=== PATIENT | female | born 1965 | race Caucasian/White ===

== ENCOUNTER 2017-12-27 07:40 | Outpatient (CLI) | payer OTHER, SELFPAY | END 2017-12-27 07:41 | PROVIDERS: PCP Family Medicine; Visit Provider Family Medicine | DX: S52.91XD Unspecified fracture of right forearm, subsequent encounter for closed fracture with routine healing (principal); S82.143D Displaced bicondylar fracture of unspecified tibia, subsequent encounter for closed fracture with routine healing; X58.XXXD Exposure to other specified factors, subsequent encounter | CPT/HCPCS: 99305 ==

== ENCOUNTER 2017-12-30 11:00 | Outpatient (REF) | payer OTHER, SELFPAY ==
[2017-12-30 11:50] LABS: Bilirubin Negative (Negative); Blood Large (Negative); Clarity Cloudy; Glucose Negative (Negative); Ketones Negative (Negative); Leukocyte Esterase Moderate (Negative); Nitrite Negative (Negative); Urobilinogen 0.2 EU/dL (Up TO 0.2)
[2017-12-30 12:00] LABS: Crystals Moderate Amorphous HPF (Negative); RBC >50 (0-2)
[2017-12-30 12:01] LABS: C & S Indicated? Yes
== END 2017-12-30 11:01 ==
LOC: LBN 11:00
PROVIDERS: PCP Family Medicine; Visit Provider Nurse Practitioner Family
DX: Z46.6 Encounter for fitting and adjustment of urinary device (principal)
CPT/HCPCS: 81003; 81015; 87086

== ENCOUNTER 2018-05-12 11:22 | Outpatient (REF) | payer OTHER, SELFPAY ==
--- NOTE | 2018-05-12 10:30 | PAPFT_PTH ---
PATIENT: Daphne Pickard LOC: [facility] U#:[id number] AGE/SX: 52/F ROOM: RE05/12/[address]: Grecia Maddox : 1965 BED: DIS: 05/12/2018 SPEC #: [id number] RECD: 05/12/18 13:07 STATUS: MAYA REAshley #: [id number] CHRISTIANO: 05/12/18 10:[address]: Grecia Maddox DEPT: [facility] Cytology RECD BY: Sherri Saavedra ENTERED: 05/12/18 13:09 SP TYPE: PAPFT OTHR DR: Keiko Reddy Tissues: 1 - CX/ENDOCX FOR PAP SMEARS Procedures: PAP THIN PREP/UVM Screening HPV DNA PROBE Comments: [id number] (CHLAMYDIA/GC)
[2018-05-13 14:45] LABS: Chlamydia Result Negative; GC Result Negative; Specimen Description SEE COMMENTS
== END 2018-05-12 11:42 ==
LOC: NCHCN 11:22
PROVIDERS: PCP Family Medicine; Visit Provider Family Medicine
DX: Z11.3 Encounter for screening for infections with a predominantly sexual mode of transmission (principal); Z12.4 Encounter for screening for malignant neoplasm of cervix; Z11.51 Encounter for screening for human papillomavirus (HPV)
CPT/HCPCS: 87491; 87591; 88142; 87624

== ENCOUNTER 2018-08-26 10:01 | Outpatient (CLI) | payer MEDICAID, SELFPAY ==
--- NOTE | 2018-08-26 09:42 | DI.RAD_ITS ---
SYMPTOM/DIAGNOSIS: F/U ORIF LEFT HIP: Two views were obtained. Note is made of plate and screw fixation of the acetabulum. There are degenerative changes of the hip joint. No other significant bony abnormality is seen. RIGHT KNEE: Four views were obtained. There is plate and screw fixation of the proximal tibia. There are mild degenerative changes of the joints of the knee. No other significant bony abnormality is seen. RIGHT WRIST: Three views were obtained and show plate and screw fixation of the distal radius. Alignment appears essentially anatomic. Moderate degenerative changes of the joints of the carpus noted.
== END 2018-08-26 10:21 ==
PROVIDERS: PCP Family Medicine; Visit Provider Student in an Organized Health Care Education/Training Program
DX: S52.121D Displaced fracture of head of right radius, subsequent encounter for closed fracture with routine healing (principal); S82.143D Displaced bicondylar fracture of unspecified tibia, subsequent encounter for closed fracture with routine healing; S32.442D Displaced fracture of posterior column [ilioischial] of left acetabulum, subsequent encounter for fracture with routine healing
CPT/HCPCS: 73562; 73110; 73502

== ENCOUNTER 2018-09-09 00:39 | Outpatient (CLI) | payer MEDICAID, SELFPAY ==
--- NOTE | 2018-09-09 09:02 | DI.CT_ITS ---
SYMPTOM/DIAGNOSIS: EVALUATE SCREW LENGTH, PAIN, SWELLING, S/P ORIF, M25.539, LT HIP PAIN, S/P ACETAB ORIF, S32.422A, H/O CLOSED POST WALL FX LT ACETABULUM LEFT HIP CT: CT examination of the hip was performed utilizing multi slice acquisition and multi planar reconstruction. There is plate and screw fixation of the acetabulum as noted on previous plain films. The hardware appears securely placed with no evidence of loosening. The anatomy of the acetabulum is nearly normal with only minimal irregularities present. Mild hypertrophic spurring of the acetabulum and femoral head noted consistent with chronic DJD. No other significant findings. RIGHT WRIST CT: CT examination of the wrist was performed utilizing multi slice acquisition and multi planar reconstruction. Plate and screw fixation noted in the distal radius as seen on previous plain film. There are slight irregularities of the distal radial articular surface. Carpal alignment appears within normal limits and the radiocarpal joints appear essentially intact. No evidence of hardware loosening by CT criteria.
== END 2018-09-09 00:59 ==
PROVIDERS: PCP Family Medicine; Visit Provider Student in an Organized Health Care Education/Training Program
DX: M25.531 Pain in right wrist (principal); S52.121D Displaced fracture of head of right radius, subsequent encounter for closed fracture with routine healing; S32.422D Displaced fracture of posterior wall of left acetabulum, subsequent encounter for fracture with routine healing; M25.552 Pain in left hip
CPT/HCPCS: 73200; 73700

== ENCOUNTER 2019-02-15 08:41 | Day surgery (SDC) | payer MEDICAID, SELFPAY ==
[2019-02-15 09:02] VITALS: BP 129/76; PULSE 73; RESP 16; TEMP 36.1; O2SAT 98
[2019-02-15] MEDS: Lactated Ringers 1,000 ML 80 ML IV (09:34)
--- NOTE | 2019-02-15 10:09 | PDOC.DSDIS_ITS ---
Discharge Plan Disposition Patient Disposition: HOME Condition: Good Discharge Details Reason For Visit: Painful orthopedic hardware - right distal radius Attending Provider: Anuel Chen Primary Care Provider: Grecia Maddox Home Meds and New Rx's Prescriptions: New hydrocodone-acetaminophen 5-325 mg tablet 1 tab PO Q6H PRN (Reason: severe pain) Qty: 6 RF: 0 acetaminophen 500 mg tablet 500 mg PO Q6H PRN (Reason: pain) Qty: 60 RF: 3 ibuprofen 600 mg tablet 600 mg PO TID PRN (Reason: pain) Qty: 60 RF: 3 Continued venlafaxine [Effexor XR] 75 mg Capsule,Extended Release 24hr 75 mg PO DAILY RF: 0 Discharge Instructions Additional Instructions: Hardware Removal Discharge Instructions Activity: You should keep the hand/wrist elevated as much as possible for the first few days. You may use the other fingers as tolerated but avoid trying to do too much too soon. You may perform light activities with the splint in place. Dressing/Cast: Your splint should stay in place at all times. Do NOT get it we t. You may loosen the LINDA wrap if you feel it is too tight and then rewrap more loosely. Medications: - You should take Tylenol and Ibuprofen for baseline pain control. - You have been prescribed a stronger pain medication, Hydrocodone, for breakthrough pain. - You may apply ice over the wrist, just double bag so it doesn't get wet. Follow-up: 10-14 days Referrals: Anuel Chen MD [ [facility] STAFF PHYSICIAN] - Equipment/Supplies: Splint Activity:: Elevate Remove Dressings/Wound Care:: Do Not Remove Shower/Bathe:: Cover Diet:: As Tolerated Discharge Orders Discharge Orders: Discharge Order (Routine); Ordered 02/15/19 Ordered By: Padmaja Lawrence DS: Diagnosis Discharge Diagnosis (1) Painful orthopaedic hardware: Status: Acute
--- NOTE | 2019-02-15 10:31 | W.PREOPHP ---
Date of service: 02/15/19 Time of Service: 10:31 Assessment and Plan Assessment and plan (1) Painful orthopaedic hardware: Status: Acute Assessment and plan: Patient is a 53-year-old who is status with right distal radius fracture. She was fixed with plates and screws. She had some pain about the wrist and one screw which appears to be prominent. Given her persistent pain about the wrist with the retained hardware and a prominent screw, I offered screw plate removal. I did discuss the risk of this procedure to include bleeding, infection, pain, stiffness, damage to nerves and vessels, hardware failure, refracture. Despite these risks, she elects to proceed. History of Present Illness History of Present Illness Chief Complaint: Painful right wrist hardware Narrative: Daphne is a 53-year-old who was involved with trauma but a year ago. She suffered a right distal radius fracture among others. She was treated with operative reduction internal fixation. She is continued to have some pain about the hand especially the radial side. CT scan showed one screw which was possibly long into the radial styloid. Given the pain that she was having and the prominence of one screw, I offered hardware removal. She denies numbness or tingling at the site. She has had no issues with the wound. No fevers and no chills. Review of Systems Review of Systems ROS Unobtainable: All systems reviewed & are unremarkable except as noted in HPI and below PFSH Medical History Endometriosis (Chronic) Hx of fracture (Acute) R acetabulum w/implant Hx of fracture of lower leg (Acute) R Tibia and Fibia w/implant Hx of fracture of wrist (Acute) R wrist w/implant Surgical History History of carpal tunnel release (Acute) Social History Smoking/Tobacco Use Status: Former Tobacco Use Alcohol Intake: current Alcohol Intake frequency: a few times a month Alcohol type: wine Drug use: Never Substance use type: does not use Do you feel safe at home: Yes Do you feel safe in your relationship?: Yes Meds Home Medications and Allergies Home Medications Medication Instructions Recorded Confirmed Type acetaminophen 500 mg PO Q6H PRN #60 tab 02/15/19 Rx hydrocodone-acetaminophen 1 tab PO Q6H PRN #6 tab 02/15/19 Rx ibuprofen 600 mg PO TID PRN #60 tab 02/15/19 Rx venlafaxine [Effexor XR] 75 mg PO DAILY 02/15/19 02/15/19 History Allergies Allergy/AdvReac Type Severity Reaction Status Date / Time gabapentin AdvReac Intermediate nauseous Unverified 02/15/19 09:00 Exam Const General: cooperative, healthy appearing, comfortable and no acute distress Nutritional Appearance: average body habitus Orientation: alert, awake and oriented x3 Resp Effort & Inspection: normal respiratory effort Auscultation: clear to auscultation bilaterally Cardio Rate: regular rate Rhythm: regular rhythm Extrem Other: Well-healed incision about the volar aspect of the right wrist. No pain with gentle passive range of motion. There is some pain with active thumb extension and with forced passive flexion. No signs of infection. Results Last Vital Signs Temp 36.1 C L 02/15/19 09:02 Pulse 73 02/15/19 09:02 Resp 16 02/15/19 09:02 BP 129/76 02/15/19 09:02 Pulse Ox 98 02/15/19 09:02
[2019-02-15] MEDS: ceFAZolin 2 GM/50 ML BAG IVPB (10:50)
--- NOTE | 2019-02-15 12:13 | DI.RAD_ITS ---
EXAM: XR WRIST RT LIMITED CLINICAL HISTORY: painful hardware. TECHNIQUE: 2D and realtime digital imaging was performed. COMPARISON: XR wrist RT complete from 01/04/2018 CT upper extremity RT wo from 09/09/2018 CT LOWER EXTREMITY LT WO from 09/09/2018 FINDINGS: An intraoperative image of the right wrist demonstrates a metallic plate affixed to the distal radius . The image obtained in conjunction with hardware removal.
[2019-02-15 12:30] VITALS: BP 122/80; PULSE 67; RESP 16; TEMP 36.1; O2SAT 96
--- NOTE | 2019-02-15 15:11 | W.PM.OP ---
Date of service: 02/15/19 Time of Service: 12:11 Operative Note Operative Note DATE OF PROCEDURE: 02/15/19 PRE-OP DIAGNOSIS: Painful orthopedic hardware, right wrist POST-OP DIAGNOSIS: same PROCEDURE: Removal of Hardware from Right Distal Radius SURGEON: Anuel Chen RESIDENTIAL PROGRAM MANAGER: Padmaja Lawrence ANESTHESIA: GETA and regional ESTIMATED BLOOD LOSS: 10 PATHOLOGY: none sent COMPLICATIONS: None Patient was transported to: PACU Patient's condition: stable Indications: Daphne is a 53-year-old female who I have seen for painful hardware after an ORIF of her left distal radius. CT scan showed that one screw was possibly long. Given the pain that she was having and the prominent screw, I recommended hardware removal. I reviewed the risk of the procedure to include bleeding, infection, stiffness, damage to nerves and vessels, damage to muscles and tendons, need for repeat procedures. Despite these risks, the patient elected to proceed. Findings: The volar locking plate was removed without difficulty. No signs of infection or complication. Procedure Description: Daphne was greeted in the preoperative holding area. The correct patient and site was confirmed and marked. The history and physical was updated. The consent was reviewed the patient and signed. The patient was taken to the operating room and placed in the supine position. All bony problems were well-padded. The right arm was placed onto a radiolucent hand table. A nonsterile tourniquet was placed high up on the left arm but not use. Prophylactic antibiotics in the form of cefazolin were administered. The left arm was prepped with ChloraPrep and draped in a standard fashion. A timeout was performed for safe surgery. Local anesthetic was administered with 1% lidocaine with epinephrine. A standard longitudinal incision was made using the same incision from the initial surgery. The skin was incised sharply. The flexor carpi radialis tendon and its sheath is identified. The sheath was opened. The tendon was moved ulnarly in the floor of the sheath was incised. Blunt dissection the flexor pollicis longus muscle belly and tendon were also made radially exposing the pronator quadratus and the distal radius. The printer quadratus was elevated with an ulnar-based flap. This exposed the volar distal radius and the fracture. A barnes elevator was used for full exposure of the volar locking plate. Starting distally, the locking screws were removed. The area will be unscrewed without difficulty. There is no hardware complication. The bone was of good quality. We then moved proximally to remove the 3 cortical screws within the shaft. These also were removed without difficulty. It took some manipulation but with a small osteoma is able to pry the plate off of the volar distal radius. This otherwise came out without difficulty. The wound was then thoroughly irrigated. Final x-ray was performed. The deep dermal layer was closed with a 2-0 Vicryl. The skin was closed with 4-0 Monocryl in a subcuticular fashion. The wound was dressed with Xeroform, 4 x 4's, web roll. A short arm splint was applied. At the end the case all counts are correct. Patient was transferred back to the PACU in stable condition.
== END 2019-02-15 13:10 | disposition home or self-care (01) ==
PROVIDERS: PCP Family Medicine; Visit Provider Student in an Organized Health Care Education/Training Program
PROC: (CPT 20680; principal; 2019-02-15 10:45)
DX: T84.84XA Pain due to internal orthopedic prosthetic devices, implants and grafts, initial encounter (principal); M25.531 Pain in right wrist; S52.501S Unspecified fracture of the lower end of right radius, sequela; X58.XXXS Exposure to other specified factors, sequela
CPT/HCPCS: 20680; 76000; NC; 73100; J0131; J0690; J1100; J1885; J2250; J2405; J3010

== ENCOUNTER 2019-02-18 11:01 | Emergency (ER) | payer MEDICAID, SELFPAY ==
--- NOTE | 2019-02-18 11:03 | W.ED.GENAD ---
Discharge Plan Disposition Patient Disposition: HOME Condition: Improving Discharge Details Chief Complaint: Dizzy/Sync Clinical Impression: Carpopedal spasm Primary Care Provider: Grecia Maddox ED Provider: Alex Linder Home Meds and New Rx's Prescriptions: Continued venlafaxine [Effexor XR] 75 mg Capsule,Extended Release 24hr 75 mg PO DAILY RF: 0 hydrocodone-acetaminophen 5-325 mg tablet 1 tab PO Q6H PRN (Reason: severe pain) Qty: 6 RF: 0 acetaminophen 500 mg tablet 500 mg PO Q6H PRN (Reason: pain) Qty: 60 RF: 3 ibuprofen 600 mg tablet 600 mg PO TID PRN (Reason: pain) Qty: 60 RF: 3 Discharge Instructions Additional Instructions: Home to rest today. Your potassium was slightly low at 3.2 and was supplemented. You may benefit from slight increase in dietary potassium from foods such as strawberries, bananas, tree nuts such as almonds. Small, frequent sips of fluids to maintain hydration. Return for any acute concerns. Medical Decision Making 53-year-old female who was upstairs in the hospital when her mother . She became anxious, hyperventilatory, nauseated. She developed carpal spasm. She was brought to the ER by nursing staff. She arrives complaining of carpal spasms. She is well-appearing with otherwise reassuring exam.. Improved with fluids and small aliquot of anxiolytic. She does have note of slight low potassium of 3.2 which is supplemented in the ED. Does appear to have a slight anion gap but with depressed carbon dioxide due to her hyperventilatory state. Stable and improving. Will discharge to home. ECG Data Attestation: I personally reviewed and interpreted this ECG (s) as follows: Interpretation: Normal sinus rhythm with a rate of 74, the QRS is narrow, there is no ST segment elevation present. HPI General Mode of arrival: ambulatory. Date/Time Provider Initiated Documentation: 02/18/19 11:02. Limitations to Documentation: no limitations. Information obtained by: patient. History of Present Illness 53 year old F presents to the emergency department with the chief complaint of Carpopedal spasm, anxiety, described as moderate, Quality is described as dull, and is localized to the right and upper extremity. Patient started experiencing this minute(s) and it has been constant. No relieving factors improve symptom(s), No exacerbating factors reported . Patient notes other (Anxiety and acute stress). Patient did receive the following treatments prior to arrival, none Related Data Home Medications Medication Instructions Recorded Confirmed acetaminophen 500 mg PO Q6H PRN #60 tab 02/15/19 hydrocodone-acetaminophen 1 tab PO Q6H PRN #6 tab 02/15/19 ibuprofen 600 mg PO TID PRN #60 tab 02/15/19 venlafaxine [Effexor XR] 75 mg PO DAILY 02/15/19 02/15/19 Previous Rx's Medication Instructions Recorded acetaminophen 500 mg PO Q6H PRN #60 tab 02/15/19 hydrocodone-acetaminophen 1 tab PO Q6H PRN #6 tab 02/15/19 ibuprofen 600 mg PO TID PRN #60 tab 02/15/19 Allergies Allergy/AdvReac Type Severity Reaction Status Date / Time gabapentin AdvReac Intermediate nauseous Unverified 02/15/19 09:00 Review of Systems Review of Systems Narrative: No syncope. Patient was hyperventilatory and anxious. 6 systems reviewed and otherwise negative [facility] Medical History Endometriosis (Chronic) Hx of fracture (Acute) R acetabulum w/implant Hx of fracture of lower leg (Acute) R Tibia and Fibia w/implant Hx of fracture of wrist (Acute) R wrist w/implant Surgical History History of carpal tunnel release (Acute) Social History Smoking/Tobacco Use Status: Former Tobacco Use Alcohol Intake: current Alcohol Intake frequency: a few times a month Alcohol type: wine Drug use: Never Substance use type: does not use Do you feel safe at home: Yes Do you feel safe in your relationship?: Yes Exam Narrative Exam Narrative: GEN: awake, alert, oriented 3. Pleasant, well groomed, interactive. HEAD: Normocephalic, atraumatic ENT: Mucous membranes moist, oropharynx unremarkable, External ear exam unremarkable EYES: PERRL, EOMI NECK: Full ROM, no LIA, no menigismus CHEST/RESP: Nontender, clear to auscultation bilateral, no wheeze/rhonchi/rales CARDIOVASCULAR: RRR, no murmur, rub luis e. ABDOMEN: Soft, nontender, no mass. +Bowel sounds EXT: Full ROM, no edema, no rash. Bilateral carpal spasm. Right upper extremity short arm cast. Neuro: Grossly normal neurologic exam, conversant, interactive. Psych: Speech fluent, thoughts congruent, affect anxious
[2019-02-18] MEDS: Normal Saline 1,000 ML 1000 ML IV (11:08)
[2019-02-18] MEDS: LORazepam 2 MG/ML VIAL 0.5 MG IVP (11:10)
[2019-02-18 11:24] LABS: Abs Immature Grans 0.02 k/cumm (0.0-0.09); Absolute Basophil Count 0.04 k/cumm (0.0-0.2); Absolute Eosinophil Count 0.07 k/cumm (0.0-0.7); Absolute Lymphocyte Count 4.55 k/cumm (1.2-3.4); Absolute Monocyte Count 0.73 k/cumm (0.11-0.7); Absolute Neutrophil Count 2.62 k/cumm (1.2-6.7); Basophils % 0.5; Eosinophils % 0.9; HCT 39.5 % (36.0-46.0); HGB 13.6 g/dL (12.0-15.5); Immature Grans % 0.2; Lymphocytes % 56.7; Mean Corp. HGB Concentration 34.4 g/dL (32.0-36.0); Mean Corpuscular Hemoglobin 31.3 pg (27.0-33.0); Mean Platelet Volume 8.4 fL (8.0-11.0); Monocytes % 9.1; Neutrophils % 32.6; Platelet Count 307 x1000/uL (130-400); RBC 4.34 m/cumm (4.00-5.20); RBC Distribution Width 12.1 % (11.7-14.6); White Blood Cell Count 8.03 k/cumm (4.4-10.8)
[2019-02-18 11:39] LABS: ALT 40 U/L (14-59); AST 38 U/L (15-37); Albumin 3.9 g/dL (3.4-5.0); Alkaline Phosphatase 90 U/L (46-116); BUN 12 mg/dL (7-18); Bilirubin, Total 0.5 mg/dL (0.2-1.0); CREATININE 0.91 mg/dL (0.55-1.02); Chloride 105 mmol/L (98-107); Glucose 121 mg/dL (70-100); Potassium 3.2 mmol/L (3.5-5.1); Sodium 141 mmol/L (136-145); Total Protein 7.2 g/dL (6.4-8.2)
[2019-02-18 11:40] LABS: Troponin I < 0.05 ng/mL (0.00-0.06)
[2019-02-18] MEDS: Potassium Chloride 20 MEQ TABCR PO (12:10)
== END 2019-02-18 12:08 | disposition home or self-care (01) ==
PROVIDERS: Emergency Provider Emergency Medicine; PCP Family Medicine
DX: R25.2 Cramp and spasm (principal); Z63.4 Disappearance and death of family member
CPT/HCPCS: 36415; 80053; 93005; 96361; 96374; 99284; 84484; 85025; 93010; J2060

== ENCOUNTER 2019-06-04 17:28 | Emergency (ER) | payer MEDICAID, SELFPAY ==
[2019-06-04 17:31] VITALS: BP 116/71; PULSE 84; RESP 20; TEMP 37; O2SAT 99
--- NOTE | 2019-06-04 17:43 | ED.GENADUL_ITS ---
Discharge Plan Disposition Patient Disposition: HOME Condition: Stable Discharge Details Chief Complaint: Orthopedic Clinical Impression: Fracture of left tibial plateau, Contusion of left hip, Fall at home Primary Care Provider: Grecia Maddox ED Provider: Eileen Diaz Home Meds and New Rx's Prescriptions: New oxycodone 5 mg tablet 5 mg PO Q6H PRN (Reason: pain) Qty: 10 RF: 0 Continued venlafaxine [Effexor XR] 75 mg Capsule,Extended Release 24hr 75 mg PO DAILY RF: 0 No Action naproxen [EC-Naproxen] 500 mg tablet,delayed release (DR/EC) 500 mg PO BID PRN (Reason: pain) Qty: 60 RF: 0 Discharge Instructions Instructions: Leg Fracture (ED) Additional Instructions: Rest, ice and elevate left leg as much as possible. Alternate tylenol and motrin as needed and directed for pain. Take the oxycodone for pain not relieved with Tylenol or Motrin. Call orthopedics tomorrow morning to schedule a follow-up appointment for reevaluation. Return to the emergency department if you develop any worsening or new concerning symptoms. Referrals: Anuel Chen MD [ [facility] STAFF PHYSICIAN] - Discharge Data Discharge Date/Time-TO BE ENTERED AT DEPARTURE: 06/04/19 19:45 Discharge Physician: Eileen Diaz Medical Decision Making [id number] -- 53-year-old female presents for left knee, left leg and left hip pain status post fall at home prior to arrival. Patient states she was walking when she felt and heard a crack in her left knee and then fell onto her bottom. She is mainly complaining of pain in the left hip, left knee and left upper leg. She is 18 months status post significant trauma when she fell off a horse and sustained fractures of right radius, right tibial plateau, left acetabulum which were fixated with hardware at [facility]. Hardware from the right radius was removed this past fall by Dr. Chen. She is complaining of some pain in her left hip but states the main area of pain is in her left knee and left upper leg. There are no open wounds. There is questionable ligamentous laxity with valgus stress but there is similar laxity in R knee and exam limited due to significant pain with valgus and varus stress. She has full range of motion of the left hip without pain. Neurovascular intact. No obvious deformities noted. Patient given a dose of oxycodone and referred for x-rays. 185 --imaging reviewed. Left knee x-ray notes a possible lateral tibial plateau fracture, suprapatellar effusion, and possible ligamentous injury. Recommend CT for further evaluation. Remainder of xrays negative for acute findings. 1939 --CT reviewed with Dr. Jane -likely will need surgical fixation. Recommends knee immobilizer and crutches, nonweightbearing. As patient has seen Dr. Chen in the past, she would rather follow-up with him. Plan is for patient to follow-up with Dr. Chen in the office tomorrow. Patient placed on orthopedic follow-up list. She was given a prescription for oxycodone. Usual and customary return precautions given prior to discharge. Imaging Data Radiologic Study: Radiologist's impression: XR Left Tibia and Fibula Exam date and time: 06/04/2019 6:26 PM Age: 53 years old Clinical indication: Other: S/P fall, R/O acute fracture TECHNIQUE: Imaging protocol: XR Left tibia and fibula. Views: 2 views. COMPARISON: CR XR KNEE LT 4V AP,LAT,LING,PAT 06/04/2019 6:16 PM FINDINGS: Bones/joints: No acute fracture. Joint spaces are maintained. Mild degenerative osteophytosis about the knee. Subchondral cysts in the lateral malleolus. Soft tissues: Normal. IMPRESSION: No acute findings. XR Left Knee Exam date and time: 06/04/2019 6:26 PM Age: 53 years old Clinical indication: Other: S/P fall, R/O acute fracture TECHNIQUE: Imaging protocol: XR Left knee. Views: 4 or more views. COMPARISON: CR LEFT KNEE 4+ VIEWS 12/13/2017 7:58 PM FINDINGS: Bones/joints: Suprapatellar joint effusion with fat fluid level. Abnormal contour and appearance of the lateral tibial plateau. Nonspecific mild lateral subluxation of the tibia with respect to the femur Soft tissues: Normal. IMPRESSION: 1. Abnormal contour and appearance of the lateral tibial plateau consistent with acute fracture. Consider further characterization with CT. 2. Moderate suprapatellar joint effusion with lipohemarthrosis. 3. Slight lateral subluxation of the tibia with respect to the femur may be due to patient positioning but is concerning for underlying ligamentous injury. XR Left Hip with Pelvis when Performed Exam date and time: 06/04/2019 6:26 PM Age: 53 years old Clinical indication: Other: S/P fall, R/O acute fracture TECHNIQUE: Imaging protocol: XR Left hip with pelvis when performed. Views: 2 or 3 views. COMPARISON: No relevant prior studies available. FINDINGS: Bones/joints: No acute fracture. Joint spaces are maintained. Moderate degenerative changes of the bilateral hips. Plate and screw fixation about the left acetabulum and in additional screw more medially. Soft tissues: Unremarkable. IMPRESSION: 1. No acute fracture or traumatic joint malalignment. 2. Plate and screw fixation about the left acetabulum appears intact. A single free screw more medial is likely appropriately positioned however prior imaging is not available for review at the time of this interpretation. Recommend comparison to priors when available. HPI General Date/Time Provider Initiated Documentation: 06/04/19 17:37 . History of Present Illness 53 year old F presents to the emergency department with the chief complaint of left hip, knee, leg pain, Quality is described as aching, and is localized to the lower extremity (left hip, knee, leg). Patient started experiencing this hour(s) and it has been constant. No relieving factors improve symptom(s), Movement worsens symptoms . Patient notes no other symptoms.. Patient did receive the following treatments prior to arrival, none Related Data Home Medications Medication Instructions Recorded Confirmed venlafaxine [Effexor XR] 75 mg PO DAILY 02/15/19 06/05/19 oxycodone 5 mg PO Q6H PRN #10 tab 06/04/19 06/05/19 naproxen 500 mg tablet,delayed 500 mg PO BID PRN #60 tab 06/05/19 06/05/19 release Previous Rx's Medication Instructions Recorded oxycodone 5 mg PO Q6H PRN #10 tab 06/04/19 naproxen 500 mg tablet,delayed 500 mg PO BID PRN #60 tab 06/05/19 release Allergies Allergy/AdvReac Type Severity Reaction Status Date / Time gabapentin AdvReac Intermediate nauseous Unverified 06/05/19 09:26 General Stated Complaint: Orthopedic SHANNEN: 4 Review of Systems All systems reviewed & are unremarkable except as noted in HPI and below Constitutional Constitutional: Reports as per HPI, Denies chills and Denies fever(s) Eyes Eyes: Denies blurry vision ENT Ears, Nose, Mouth, and Throat: Denies dizziness, Denies sore throat and Denies throat swelling Cardiovascular Cardiovascular: Denies chest pain and Denies dyspnea Respiratory Respiratory: Denies cough and Denies dyspnea Gastrointestinal Gastrointestinal: Denies abdominal pain, Denies diarrhea and Denies vomiting Genitourinary Genitourinary: Denies hematuria and Denies dysuria Musculoskeletal Musculoskeletal: Reports other (Left hip/knee/leg pain) Integumentary/Breasts Skin/Breast: Denies lesions and Denies rash Neurologic Neurologic: Denies dizziness and Denies focal weakness Allergic/Immunologic Allergic/Immunologic: Denies throat swelling [facility] Medical History Endometriosis (Chronic) Hx of fracture (Acute) R acetabulum w/implant Hx of fracture of lower leg (Acute) R Tibia and Fibia w/implant Hx of fracture of wrist (Acute) R wrist w/implant Surgical History History of carpal tunnel release (Acute) Painful orthopaedic hardware (Resolved) Prominent screw from volar distal radius plate S/P removal hardware 02/15/3019 Social History Smoking/Tobacco Use Status: Former Tobacco Use Alcohol Intake: current Alcohol Intake frequency: a few times a month Alcohol type: wine Drug use: Never Substance use type: does not use Current gender identity: female Do you feel safe at home: Yes Do you feel safe in your relationship?: Yes Exam Const General: cooperative, healthy appearing and no acute distress [facility] Head: normal to inspection Face and sinus: normal facial exam Eyes General: appearance normal, both eyes and all related structures EOM: EOM intact bilaterally Neck Neck: normal visual inspection and No submandibular swelling Lymphatic: no lymphadenopathy noted Chest Chest: normal inspection of the chest and no tenderness Resp Effort & Inspection: normal respiratory effort and able to speak in complete sentences Auscultation: clear to auscultation bilaterally Cardio Rate: regular rate Rhythm: regular rhythm GI Inspection: normal to inspection Palpation: soft, not firm, not rigid and nontender Auscultation: normal bowel sounds Back/Spine/Pelvis Cervical Spine: No cervical spinal tenderness Thoracic/Lumbar Spine: No thoracic spinal tenderness and No lumbar spinal tenderness Pelvis: no pain with anterior-posterior compression Skin General skin exam: no rashes or lesions noted Neuro General: alert, awake and oriented x3 Cognition: normal cognition Speech: speech normal Motor: muscle tone normal throughout Sensory Exam: no sensory deficits noted Extrem Other: LEFT lower extremity: No tenderness to palpation of hip. No pain in hip with range of motion. No lower extremity shortening or external rotation. Pain in knee with range of motion. Pain with valgus and varus stress and questionable ligamentous laxity medial collateral ligament but this is similar in right knee and full exam to left knee limited due to pain. Negative anterior posterior drawer test. Negative Jaclyn's test. No pain with palpation to ankle or foot. Left DP/PT pulses intact. No edema, ecchymosis or erythema noted to left lower extremity. RIGHT lower extremity: Well healed scar noted to R lateral knee/proximal leg. Psych Appearance: grossly normal Mental Status: mental status grossly normal Speech and Movement: speech and movement normal Affect: normal affect Course Vital Signs Vital signs: Vital Signs Temperature 98.6 F 06/04/19 17:31 Pulse 84 06/04/19 17:31 Respiratory Rate 06/04/19 17:31 Blood Pressure 116/71 06/04/19 17:31 Pulse Oximetry 99 06/04/19 17:31 Temperature 98.6 F 06/04/19 17:31 Temperature Source Skin 06/04/19 17:31 Pulse 84 06/04/19 17:31 Respiratory Rate 20 06/04/19 17:31 Respiratory Effort 06/04/19 17:36 Blood Pressure 116/71 06/04/19 17:31 Pulse Oximetry 99 06/04/19 17:31 Oxygen Delivery Method Room Air 06/04/19 17:31 Oxygen Flow Rate 0 06/04/19 17:31 Pain Level 6 06/04/19 17:31
[2019-06-04] MEDS: oxyCODONE 5 MG TAB PO (17:56)
--- NOTE | 2019-06-04 18:12 | DI.RAD_ITS ---
EXAM: XR HIP LT COMPLETE AP PELVIS INDICATION: s/p fall, r/o acute fracture. COMPARISON: XR hip LT AP lat only from 08/26/2018 TECHNIQUE: 2D digital imaging was performed. FINDINGS: No acute fracture or dislocation is present. Postsurgical changes are again seen in the left acetabu lum. The soft tissues are unremarkable. IMPRESSION: No acute fracture or dislocation.
--- NOTE | 2019-06-04 18:16 | DI.RAD_ITS ---
EXAM: XR KNEE LT 4V AP,LAT,LING,PAT AND XR TIB/FIB LT INDICATION: s/p fall, r/o acute fracture. COMPARISON: No previous for comparison. TECHNIQUE: 2D digital imaging was performed. FINDINGS: There is a lateral tibial plateau fracture which shows mild depression. Longitudinal component of th e fracture appears to extend into the proximal metaphysis. There is a hemarthrosis present. No othe r fracture or dislocation is seen. The bones appear mildly osteopenic. There are mild degenerative changes seen in the knee. There is no other fracture seen in the distal left tibia and fibula. IMPRESSION: Mildly depressed lateral tibial plateau fracture. CT scan of the knee should be considered for furth er evaluation.
--- NOTE | 2019-06-04 18:41 | DI.VRAD_ITS ---
PROCEDURE INFORMATION: Exam: XR Left Tibia and Fibula Exam date and time: 06/04/2019 6:26 PM Age: 53 years old Clinical indication: Other: S/P fall, R/O acute fracture TECHNIQUE: Imaging protocol: XR Left tibia and fibula. Views: 2 views. COMPARISON: CR XR KNEE LT 4V AP,LAT,LING,PAT 06/04/2019 6:16 PM FINDINGS: Bones/joints: No acute fracture. Joint spaces are maintained. Mild degenerative osteophytosis about the knee. Subchondral cysts in the lateral malleolus. Soft tissues: Normal. IMPRESSION: No acute findings. Dictated and Authenticated by: Dutch Hay MD. Ordering:ROGER Arellano MD
--- NOTE | 2019-06-04 18:46 | DI.VRAD_ITS ---
PROCEDURE INFORMATION: Exam: XR Left Knee Exam date and time: 06/04/2019 6:26 PM Age: 53 years old Clinical indication: Other: S/P fall, R/O acute fracture TECHNIQUE: Imaging protocol: XR Left knee. Views: 4 or more views. COMPARISON: CR LEFT KNEE 4+ VIEWS 12/13/2017 7:58 PM FINDINGS: Bones/joints: Suprapatellar joint effusion with fat fluid level. Abnormal contour and appearance of the lateral tibial plateau. Nonspecific mild lateral subluxation of the tibia with respect to the femur Soft tissues: Normal. IMPRESSION: 1. Abnormal contour and appearance of the lateral tibial plateau consistent with acute fracture. Consider further characterization with CT. 2. Moderate suprapatellar joint effusion with lipohemarthrosis. 3. Slight lateral subluxation of the tibia with respect to the femur may be due to patient positioning but is concerning for underlying ligamentous injury. Dictated and Authenticated by: Dutch Hay MD. Ordering:ROGER Arellano MD
--- NOTE | 2019-06-04 18:50 | DI.VRAD_ITS ---
PROCEDURE INFORMATION: Exam: XR Left Hip with Pelvis when Performed Exam date and time: 06/04/2019 6:26 PM Age: 53 years old Clinical indication: Other: S/P fall, R/O acute fracture TECHNIQUE: Imaging protocol: XR Left hip with pelvis when performed. Views: 2 or 3 views. COMPARISON: No relevant prior studies available. FINDINGS: Bones/joints: No acute fracture. Joint spaces are maintained. Moderate degenerative changes of the bilateral hips. Plate and screw fixation about the left acetabulum and in additional screw more medially. Soft tissues: Unremarkable. IMPRESSION: 1. No acute fracture or traumatic joint malalignment. 2. Plate and screw fixation about the left acetabulum appears intact. A single free screw more medial is likely appropriately positioned however prior imaging is not available for review at the time of this interpretation. Recommend comparison to priors when available. Dictated and Authenticated by: Dutch Hay MD. Ordering:ROGER Arellano MD
[2019-06-04 19:11] VITALS: BP 128/66; PULSE 69; RESP 18; O2SAT 100
--- NOTE | 2019-06-04 19:35 | DI.CT_ITS ---
EXAM: CT LOWER EXTREMITY LT WO CLINICAL HISTORY: r/o lateral tibial plateau fracture TECHNIQUE: Without contrast COMPARISON: XR KNEE LT 4V AP,LAT,LING,PAT from 06/04/2019 FINDINGS: There is a comminuted fracture involving the lateral tibial plateau. There is 1 centimeter of depres aneta of the fracture noted. The fracture is predominantly anteriorly located and extends into the tib ial spines. The fracture extends distally into the proximal tibial diaphysis. No other fracture is i dentified. There is a moderate lipohemarthrosis present. There may be mild lateral subluxation of t he tibia with respect to the femur. There is soft tissue edema around the knee. IMPRESSION: Comminuted fracture involving the lateral tibial plateau. The fracture involves the tibial spines an d extends inferiorly and anteriorly into the proximal tibial diaphysis. There is a depression of lora roximately 1 centimeter of the lateral tibial plateau noted. Moderate lipohemarthrosis. Question of mild lateral subluxation of the tibia with respect to the femur.
--- NOTE | 2019-06-04 19:45 | DI.VRAD_ITS ---
PROCEDURE INFORMATION: Exam: CT Left Lower Extremity Without Contrast, Knee Exam date and time: 06/04/2019 7:25 PM Age: 53 years old Clinical indication: Injury or trauma; Initial encounter; Blunt trauma; Left; Injury date: 06/04/19; Injury details: Fall, knee pain, question on x-ray of tibial plateau FX TECHNIQUE: Imaging protocol: CT of the Left lower extremity without contrast was performed. Exam focused on the knee. Radiation optimization: All CT scans at this facility use at least one of these dose optimization techniques: automated exposure control; mA and/or kV adjustment per patient size (includes targeted exams where dose is matched to clinical indication); or iterative reconstruction. COMPARISON: CT KNEE WO CONTRAST RI 12/14/2017 8:56 AM FINDINGS: Bones/joints: Comminuted fracture of the lateral tibial plateau that extends through the tibial spine and has an additional prominent nondisplaced fracture line extending into the proximal tibial diaphysis. There is approximate 1 cm depression and abnormal angulation of the lateral tibial plateau with numerous comminuted fragments. Moderate joint effusion with lipohemarthrosis. Persistent mild lateral subluxation of the tibia with respect to the femur. Soft tissues: Mild soft tissue edema about the knee IMPRESSION: 1. Comminuted fracture of the lateral tibial plateau extending through the tibial spine and additional nondisplaced fracture line extending ventrally into the proximal tibial diaphysis. The lateral tibial plateau is depressed approximately 1 cm with abnormal angulation and numerous comminuted fragments along the articular surface. 2. Moderate joint effusion with lipohemarthrosis. 3. Persistent mild lateral subluxation of the tibia with respect to the femur. Dictated and Authenticated by: Dutch Hay MD. Ordering:ROGER Arellano MD
== END 2019-06-04 19:45 | disposition home or self-care (01) ==
PROVIDERS: Emergency Provider Physician Assistant; PCP Family Medicine
DX: S82.142A Displaced bicondylar fracture of left tibia, initial encounter for closed fracture (principal); M25.462 Effusion, left knee; M25.552 Pain in left hip; X50.9XXA Other and unspecified overexertion or strenuous movements or postures, initial encounter; W00.0XXA Fall on same level due to ice and snow, initial encounter
CPT/HCPCS: 29505; 99284; 73502; 73564; 73590; 73700; 99285; E0114; L1830

== ENCOUNTER 2019-06-05 14:25 | Emergency (ER) | payer MEDICAID, SELFPAY ==
[2019-06-05] VITALS (16 sets, daily range): BP systolic 141–159; BP diastolic 84–97; PULSE 74–86; RESP 12–27; TEMP 37.1; O2SAT 94–100
--- NOTE | 2019-06-05 15:03 | W.ED.GENAD ---
Discharge Plan Disposition Patient Disposition: HOME Condition: Good Discharge Details Chief Complaint: Orthopedic Clinical Impression: Fracture of left distal radius Primary Care Provider: Grecia Maddox ED Provider: Lawrence Hall Home Meds and New Rx's Prescriptions: No Action naproxen [EC-Naproxen] 500 mg tablet,delayed release (DR/EC) 500 mg PO BID PRN (Reason: pain) Qty: 60 RF: 0 venlafaxine [Effexor XR] 75 mg Capsule,Extended Release 24hr 75 mg PO DAILY RF: 0 oxycodone 5 mg tablet 5 mg PO Q6H PRN (Reason: pain) Qty: 10 RF: 0 Discharge Instructions Instructions: Wrist Fracture in Adults (ED) Additional Instructions: Please follow-up closely with Dr. Quiles. Please keep the splint on at all times as well as the sling. If you notice any color changes for your fingers, numbness or tingling, worsening pain please loosen your splint immediately. Please take your oxycodones as directed in conjunction with your naproxen. If you notice any worsening of your symptoms, or any new symptoms such as vomiting, diarrhea, fever, chills, shortness of breath, chest pain, numbness, weakness, or fainting , please return immediately to the emergency department for reevaluation. Please follow up with your primary care provider as soon as possible for reassessment and reevaluation. As always, it was a pleasure participating in your medical care today. Referrals: George Jane MD [ [facility] STAFF PHYSICIAN] - Discharge Data Discharge Date/Time-TO BE ENTERED AT DEPARTURE: 06/05/19 17:17 Medical Decision Making This is a very pleasant 53-year-old female who is ambidextrous with right hand predominance who was just diagnosed with a left tibial plateau fracture and meniscal injury who is in a knee immobilizer who presents just a few hours after her orthopedic office visit for her left wrist deformity. She fell at home while using her crutches and fell on an outstretched left hand. Notable dorsal angulation, neurovascular exam appears intact. Patient is in notable pain. Immediate hematoma block was given which did give mild to moderate relief. 7 cc of a 30/70 mixture of 1% lidocaine and 0.5% bupivacaine were administered to the wrist with no complications. We will get x-rays, sedate, and reduce. 6 PM X-rays confirmed dorsally angulated fracture with comminuted component of the distal radius. Utilizing propofol a total of 90 mg were used for adequate sedation. The distal radius was then subsequently reduced and position was notably improved. Fiberglass splint was then placed, repeat exam after this demonstrated continued excellent neurovascular exam. Pain is stable. After the Ortho-Glass dried there did appear to be a slight shortening on the palmar aspect. It is less than a centimeter proximal to the palmar crease. I did discuss with the patient my request to do a new splint that was slightly longer, however she states that she feels great with the current splint would not like any additional or different splint at this time. Repeat x-rays show improvement of alignment after reduction. Patient tolerated all this well. Continue neurovascular exam remains intact. I did discuss the case with Dr. Quiles who is already taking the patient to surgery for her knee. He contacted us prior to us contacting him secondary to him being very aware of her current situation. He will try to move up her surgical date by a day, and will be following up with her closely. Patient does have a walker at home with an armrest already and a seat, and states that she does not want any additional equipment. She feels that she has all the necessary help and safety mats at home already in place and does not want additional assistance. 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 Patient will be discharged home with family. We discussed red flags concerning for signs of compartment syndrome, neurovascular compromise, or other concerning abnormalities. I have extensively reviewed the treatment plan and discharge instructions with the patient and their family. I have addressed all patient concerns at this time. The patient and family was made aware of what symptoms to monitor for that would warrant a return to the emergency department. Discussed the plan with the patient and family, they demonstrate verbal understanding and agreement with our assessment and plan at this time. FINDINGS: Bones/joints: Comminuted displaced distal radius fracture that has been reduced. Fracture fragments are improved in alignment. Soft tissues: Soft tissue swelling of the wrist Other findings: This study is viewed through plaster. IMPRESSION: Comminuted displaced distal radius fracture that has been reduced. Fracture fragments are improved in alignment. Thank you for allowing us to participate in the care of your patient. Dictated and Authenticated by: Josh Brown MD 06/05/2019 5:05 PM Eastern Time ([place] & [place]) HPI General Date/Time Provider Initiated Documentation: 06/05/19 14:27. HPI Narrative: This is a 53-year-old female with no significant past medical history except for a diagnosis just yesterday of a tibial plateau fracture with meniscal injury who presents today for left wrist deformity. She just seen fireworks display specialist and is scheduled for surgery for her left knee when she was at home with her crutches she fell on an outstretched left hand and has notable deformity of her left nondominant wrist now. She is ambidextrous with a right hand predominance. Her meniscal and knee injury is also on the left. She denies any associated numbness or tingling. Pain and severity of it are notable. She denies hitting her head, or any pain in her elbow or shoulder. Past surgical history is positive for multiple surgeries on her left shoulder right wrist and other body components. Related Data Home Medications Medication Instructions Recorded Confirmed venlafaxine [Effexor XR] 75 mg PO DAILY 02/15/19 06/05/19 oxycodone 5 mg PO Q6H PRN #10 tab 06/04/19 06/05/19 naproxen 500 mg tablet,delayed 500 mg PO BID PRN #60 tab 06/05/19 06/05/19 release Previous Rx's Medication Instructions Recorded oxycodone 5 mg PO Q6H PRN #10 tab 06/04/19 naproxen 500 mg tablet,delayed 500 mg PO BID PRN #60 tab 06/05/19 release Allergies Allergy/AdvReac Type Severity Reaction Status Date / Time gabapentin AdvReac Intermediate nauseous Unverified 06/05/19 09:26 General Stated Complaint: Orthopedic SHANNEN: 4 Review of Systems All systems reviewed & are unremarkable except as noted in HPI and below PFSH Social History Smoking/Tobacco Use Status: Former Tobacco Use Alcohol Intake: current Alcohol Intake frequency: a few times a month Alcohol type: wine Drug use: Never Substance use type: does not use Current gender identity: female Do you feel safe at home: Yes Do you feel safe in your relationship?: Yes Exam Narrative Exam Narrative: 1.Const: Well-nourished, Well-developed, appearing stated age 2.Eyes: PERRL, no conjunctival injection, and symmetrical lids. 3.ENT: Atraumatic external nose and ears. Moist MM. Neck: Symmetric, trachea midline, No thyromegaly. 4.CVS: +S1/S2, No murmurs or gallops. Peripheral pulses 2+ and equal in all extremities. Brisk capillary refill in all extremities. 5.RESP: Unlabored respiratory effort. Clear to auscultation bilaterally. No wheezes rales or rhonchi 6.GI: Soft, Nontender/Nondistended, No hepatosplenomegaly. No guarding or rebound. 7.MSK: Left wrist demonstrates notable dorsal angulation and deformity, radial pulse +2 bilaterally, capillary refill brisk throughout. Intact sensation throughout. No pain in the mid to proximal forearm elbow or the remainder of the arm. The remainder of her exam aside for her left knee which is unchanged from prior exam is without deformity injury or signs of trauma. 8.Skin: Warm, Dry. No rashes or lesions. 9.Neuro: suspect artist II-XII grossly intact. Sensation grossly intact, no focal neurologic deficits. 10.Psych: (AAO) x3. Appropriate mood and affect Course Vital Signs Vital signs: Vital Signs Temperature 37.1 C 06/05/19 14:28 Pulse 85 06/05/19 14:28 Respiratory Rate 22 06/05/19 14:28 Blood Pressure 156/84 H 06/05/19 14:28 Pulse Oximetry 100 06/05/19 14:28 Temperature 37.1 C 06/05/19 14:28 Temperature Source Skin 06/05/19 14:28 Pulse 85 06/05/19 14:28 Respiratory Rate 22 06/05/19 14:28 Respiratory Effort Non-Labored 06/05/19 14:40 Blood Pressure 156/84 H 06/05/19 14:28 Blood Pressure Position Sitting 06/05/19 14:28 Pulse Oximetry 100 06/05/19 14:28 Oxygen Delivery Method Room Air 06/05/19 14:28 Oxygen Flow Rate 0 06/05/19 14:28 Pain Level 10 06/05/19 14:43 Procedures Orthopedic Fracture Reduction Fracture #1: Time Out Performed: Yes Side: left Fracture Reduction Location: radius Analgesia: procedural sedation and hematoma block Technique: direct manipulation and traction/counter-traction Post Reduction X-rays Demonstrate: acceptable reduction Post-reduction neuro exam: intact Post-reduction vascular exam: intact Splint Applied: Yes Patient Tolerated Procedure: well Procedural Sedation Indication: fracture/dislocation reduction ASA Class: I Time of Last PO Intake: 13:00 Preparation: secured entrance monitor applied, pulse oximeter, capnometry used, supplemental O2 applied, suction/airway equipment at bedside and IV secured IV Propofol dose (mg): 90 Patient Tolerated Procedure: well Complications: none
[2019-06-05] MEDS: Bupivacaine 0.5% Pres-Free 30 ML VIAL (15:09)
--- NOTE | 2019-06-05 15:41 | DI.RAD_ITS ---
EXAM: XR WRIST LT COMPLETE INDICATION: notable deformity, FOOSH. COMPARISON: XR wrist RT complete from 08/26/2018 TECHNIQUE: 2D digital imaging was performed. FINDINGS: There is a comminuted fracture of the distal left radius. The fracture appears to be intra-articular . There is dorsal angulation of the fracture noted. The distal fracture fragment lies posterior and slightly radial to the proximal fracture component. No other fracture or dislocation is seen. Ther e is soft tissue swelling of the wrist. IMPRESSION: Comminuted intra-articular and displaced fracture of the distal left radius.
--- NOTE | 2019-06-05 16:10 | RESPIRATORY ---
RT present for Conscious Sedation. Pre: HR 80, SpO2 99 on RA, CO2 32, RR 12. During Procedure: HR ranged from 80-88, SpO2 95-97% on 1L, CO2 32-33, RR 18-23 and BP ranged from 152-155/91-97. During procedure, SpO2 dropped down to 86% so pt placed on 2L and sat came up within one min. Post Procedure: HR 80, SpO2 96% RA, CO2 36, RR 20 and BP 154/92. Pt tolerated procedure very well and was headed to second Xray when RT was told it was good to leave.
--- NOTE | 2019-06-05 16:36 | DI.RAD_ITS ---
EXAM: XR WRIST LT COMPLETE INDICATION: post reduction. COMPARISON: XR WRIST LT COMPLETE from 06/05/2019 TECHNIQUE: 2D digital imaging was performed. FINDINGS: Since the prior examination, there has been reduction of the distal left radial fracture. The fractu re alignment appears markedly improved and is near anatomic. No new fracture or dislocation is seen. The patient's wrist is in a cast.
--- NOTE | 2019-06-05 17:06 | DI.VRAD_ITS ---
PROCEDURE INFORMATION: Exam: XR Left Wrist Exam date and time: 06/05/2019 4:44 PM Age: 53 years old Clinical indication: Screening exam; Patient HX: Post-reduction of L wrist TECHNIQUE: Imaging protocol: XR Left wrist. Views: 3 or more views. COMPARISON: CR XR WRIST LT COMPLETE 06/05/2019 3:41 PM FINDINGS: Bones/joints: Comminuted displaced distal radius fracture that has been reduced. Fracture fragments are improved in alignment. Soft tissues: Soft tissue swelling of the wrist Other findings: This study is viewed through plaster. IMPRESSION: Comminuted displaced distal radius fracture that has been reduced. Fracture fragments are improved in alignment. Dictated and Authenticated by: Josh Brown MD. Ordering:DEANDRE Bravo MD
== END 2019-06-05 17:17 | disposition home or self-care (01) ==
PROVIDERS: Emergency Provider Student in an Organized Health Care Education/Training Program; PCP Family Medicine
DX: S52.352A Displaced comminuted fracture of shaft of radius, left arm, initial encounter for closed fracture (principal); W01.0XXA Fall on same level from slipping, tripping and stumbling without subsequent striking against object, initial encounter
CPT/HCPCS: 36415; 96374; 96376; 25605; 73110; L3650

== ENCOUNTER 2019-06-08 09:40 | Inpatient (IN) | payer MEDICAID, SELFPAY ==
[2019-06-06 15:04] VITALS: BP 141/86; PULSE 82; O2SAT 99
[2019-06-08] VITALS (11 sets, daily range): BP systolic 94–123; BP diastolic 51–80; PULSE 72–78; RESP 12–18; TEMP 36.2–38; O2SAT 92–96
[2019-06-08] MEDS: Lactated Ringers 1,000 ML 100 ML IV ×3 (11:07→21:38)
[2019-06-08] MEDS: Bupivacaine 0.25% Pres-Free 30 ML VIAL (13:55)
--- NOTE | 2019-06-08 14:58 | W.PM.OP ---
Date of service: 06/08/19 Time of Service: 20:52 Operative Note Operative Note DATE OF PROCEDURE: 06/08/19 PRE-OP DIAGNOSIS: 1. Left split depression lateral tibial plateau fracture 2. Left extra-articular distal radius fracture POST-OP DIAGNOSIS: other 1. Left split depressed lateral tibial plateau fracture 2. Left 2-part intra-articular distal radius fracture PROCEDURE: 1. Left lateral tibial plateau ORIF 2. Left knee diagnostic arthroscopy limited to lateral compartment for assisted joint surface reduction and evaluation of lateral meniscus 3. Left distal radius ORIF, intra-articular 2 fragments SURGEON: George Jane AUTOMOTIVE WINDOW TINTER: Brant Guerrero AUTOMOTIVE WINDOW TINTER: Sonia Hanks ANESTHESIA: GETA, regional (Left abductor and popliteal) and local (15 cc 0.25% bupivacaine with epinephrine left wrist) ESTIMATED BLOOD LOSS: 30 Patient was transported to: PACU Patient's condition: stable Implants: Synthes 3.5 mm variable angle LCP proximal lateral tibia system Norian drillable bone cement Synthes 2.4 mm variable angle LCP distal radius system See OR records for screw lengths Indications: Please see complete medical record for details. Procedure Description: The patient was taken to the operating room and transferred to the operating room table. Anesthesia was induced. All bony prominences were well-padded. Preoperative antibiotics were administered. The left knee was prepped and draped in the usual sterile fashion. The correct patient, procedure, and side of the procedure were all verified prior to incision. The tourniquet was inflated after exsanguinating the left lower extremity. Bony prominences were properly palpated and an S-shaped incision was placed as usual for lateral plateau surgery. The anterior compartment muscular was carefully elevated off the bone. Proximally the IT band was split. The anterior lateral tibial surface fracture was completely nondisplaced. The decision was made to reduce the fracture depression at the joint radiographically and with arthroscopic assist. The 10 mm ACL reamer was used to open access to the lateral plateau subchondral bone. A bone tamp was used to carefully elevate under radiographic guidance subchondral bone and cartilage surface until it appeared nearly anatomic. The arthroscope was inserted through a stab in the lateral capsule underneath the skin. A diagnostic arthroscopy was performed of the lateral compartment which revealed an intact lateral meniscus. An anterior and central area of cartilage injury was identified. A bone tamp was used to elevate the articular surface until it was observed to be flush with the surrounding uninjured cartilage. Arthroscopic fluid was drained from the knee. AP and lateral fluoroscopy confirmed excellent reduction of the joint surface. An appropriate length lateral tibial plateau plate was applied to the bone and provisionally fixated with K wires. It was adjusted to the best location on AP and lateral fluoroscopy. A cortex screw was used in the central oblong hole of the plate to compress the plate down to bone. Through the locking guide the most anterior and proximal 2 locking screws were placed as rafting screws. The most distal 2 holes were filled with appropriate length locking screws as well. K wires were removed. The compression screw was removed. Norian bone cement was injected through the bone defect through a hole in the plate until there was excellent fill of the subchondral bone defect and back pressure with the cement coming out our path used for restoring the joint line. Excess cement was removed from the lateral wound. Fluoroscopy confirmed no cement near the joint surface and no cement extravasation into the joint. The remaining proximal screws were filled with appropriate length locking screws and rafting fashion. Final AP and lateral fluoroscopy confirmed excellent fracture site reduction and appropriate placement of all her hardware and cement. The wound was copiously irrigated normal saline. The anterior compartment musculature was closed to the tissue sleeve on the tibial crest using 0 Vicryl in a buried interrupted fashion. Vicryl was also used to close the IT band split. The tourniquet was let down a moist lap was used to hold pressure for few minutes. Adequate hemostasis was achieved. Subcutaneous tissue was thoroughly irrigated with normal saline. Subcutaneous tissue was closed using 2-0 Monocryl in a buried knot fashion. Skin was closed using 3-0 nylon in a lateral mattress fashion. All leg compartments were soft. Incision was covered with Xeroform dry gauze 4 x 4's ABD and sterile soft roll. The extremity is wrapped from the toes to the thigh with an Rob bandage and placed into her previously obtained hinged knee brace. All drapes were taken down. The table was rotated 90 degrees. Left wrist was examined under fluoroscopy and found to be nearly completely re-displaced. The emergency room sugar tong splint was removed. There was a small fracture blister on the dorsal wrist moderate wrist swelling. The radial artery was palpated and marked at the radial wrist. 1 close reduction attempt was made and the fracture was found to be significantly shortened and radial deviated. We also identified an intra-articular split between the radial styloid and the lunate facet. All the previously instruments were passed off. All staff re-scrubbed and gowned into the case and completely new instrument trays were open for the left wrist procedure. The left wrist was prepped and draped in the usual sterile fashion. Tourniquet was inflated after exsanguinating left upper extremity. The usual modified volar Hawk approach to the distal radius was used taking care to protect the radial artery tendons and nerves. Radial quadratus was released from the radial margin of the volar distal radius freed from the fracture margins and swept ulnarly. A combination of traction and bone forceps was used to reduce a significantly comminuted radial styloid and lunate facet to the distal radial metaphysis. Provisional reduction was held manually while the plate was applied and held provisionally by BB tacks. Appropriate reduction and plate placement was confirmed on AP and lateral fluoroscopy. Variable-angle locking screws were placed into the radial styloid lunate facet and then 2.7 mm cortex screws were placed into the radial shaft. BB tacks were removed. Care was taken to insert all distal screws just short of a bicortical measurement in short on the lateral view to avoid having prominent screws dorsally. No AP and lateral fluoroscopy confirmed excellent reduction of the fracture site and appropriate hardware placement. Radial inclination view and oblique views confirmed no screws prominent into the joint. The wound was copiously irrigated with normal saline. The pronator quadratus was brought back radially as 1 whole tissue sleeve covering the plate. The tourniquet was let down and a moist lap was applied to the wound for a few minutes. There was no arterial bleeding. The radial artery was both palpable and and visible pulsating normally. Hemostasis was achieved. Subcutaneous tissues were loosely approximated using 2-0 Monocryl in buried open fashion. 15 cc of 0.25% bupivacaine with epinephrine was infiltrated approximately ulnarly about the incision. Skin was closed using 3-0 nylon in a horizontal mattress fashion. Forearm compartments were compressible. Xeroform was applied to the wound followed by dry 4 x 4 gauze and sterile soft roll. The left wrist and forearm are placed into a volar splint. The patient awoke from anesthesia without complication and was transferred to recovery room in stable fashion.
--- NOTE | 2019-06-08 14:58 | W.PM.DS.N ---
Date of service: 06/09/19 Time of Service: 13:10 DS: Diagnosis Discharge Diagnosis (1) Closed fracture of left distal radius: Status: Acute (2) Closed fracture of left tibial plateau: Status: Acute Discharge Plan Disposition Patient Disposition: HOME Condition: Stable Discharge Details Reason For Visit: Orthopedic multi-trauma Admit Date/Time: 06/08/19 09:40 Admit Provider: George Jane Attending Provider: George Jane Primary Care Provider: Grecia Maddox [facility] Course Hospital Course: Admitted for Left tibial plateau ORIF and Left distal radius ORIF; Postoperative course uncomplicated. Home Meds and New Rx's Prescriptions: New oxycodone 5 mg Tablet 5 - 10 mg PO Q4H PRN PRN (Reason: Pain) Qty: 33 RF: 0 Eliquis 2.5 mg Tablet 2.5 mg PO BID 30 Days Qty: 60 RF: 0 Continued naproxen [EC-Naproxen] 500 mg tablet,delayed release (DR/EC) 500 mg PO BID PRN (Reason: pain) Qty: 60 RF: 0 venlafaxine [Effexor XR] 75 mg Capsule,Extended Release 24hr 75 mg PO DAILY RF: 0 Discontinued oxycodone 5 mg tablet 5 mg PO Q6H PRN (Reason: pain) Qty: 10 RF: 0 Discharge Instructions Additional Instructions: Surgery: Left tibial plateau ORIF, left distal radius ORIF Activity: Toe-touch weightbearing left lower extremity in hinged knee brace at all times. Should unlock the brace for daily knee range of motion. Left hand and wrist nonweightbearing in splint at all times. Encourage daily range of motion to all fingers and thumb both active and passive. A physical therapy prescription will be provided separately in the office at follow-up.. Prescriptions: Eliquis 2.5 mg take 1 every 12 hours for 30 days to prevent a blood clot Naproxen 250 mg take 1-2 every 12 hours with a meal as needed for moderate pain Oxycodone 5 mg take 1-2 every 4-6 hours as needed for severe pain You may use [id number] Tylenol (acetaminophen) as needed for mild pain. These pain medications may be taken all at once or in different combinations as needed. Also, recommend Colace (docusate) as a stool softener as surgery and pain medicine cause constipation. Dressings: Leave splint and dressing in place until follow-up. Keep clean and dry at all times. May loosen and adjust Orb wrap as needed for tightness and swelling. Follow-up: 10-[address] Jane Please call the office during business hours with any questions or concerns. Let us know right away if you develop any redness, drainage, fevers, chest pain, or trouble breathing. Do not drink alcohol or drive for at least 24 hours after anesthesia. Stand Alone Forms: Nursing Discharge Form Referrals: George Jane MD [ [facility] STAFF PHYSICIAN] - Activity:: TTWB LLE, NWB Lt Wrist Equipment/Supplies:: Rolling walker with left platform assist Diet:: As Tolerated Discharge Orders Discharge Orders: Discharge Order (Routine); Ordered 06/09/19 Ordered By: George Jane DS: Summary Status at Discharge Functional status at discharge: uses cane/walker Overall status at discharge: patient is progressing back to baseline Mental Status: mental status grossly normal Speech and Movement: speech and movement normal Mood: congruent mood Affect: normal affect Exam Const General: cooperative and no acute distress Orientation: alert, awake and not confused Limitations: mental status not altered and no language barrier Resp Effort & Inspection: normal respiratory effort, able to speak in complete sentences, no audible wheezes and no grunting General: deferred Skin General skin exam: no rashes or lesions noted Neuro General: alert, awake and oriented x3 Cognition: normal cognition Speech: speech normal Extrem Other: Left upper extremity: Volar splint clean dry intact. Demonstrates mild active motor all fingers and thumb limited by swelling. Apartments grossly soft through dressing. Grossly all nerves and tendons intact left upper extremity. Left lower extremity: Hinged knee brace and dressing clean dry intact. Still neurovascular block distally. Demonstrates intact straight leg raise. Compartments grossly soft through dressing. Psych Appearance: grossly normal Mental Status: mental status grossly normal Speech and Movement: speech and movement normal Mood: congruent mood Affect: normal affect Attitude: cooperative DS: Data Vitals/I&O Vitals and I&O: Vital Signs Temperature 98.1 F 06/08/19 09:54 Pulse 72 06/08/19 09:54 Pulse Rhythm Regular 06/08/19 09:54 Respiratory Rate 16 06/08/19 09:54 Respiratory Effort 06/08/19 09:54 Respiratory Depth Normal 06/08/19 09:54 Respiratory Pattern Normal 06/08/19 09:54 Blood Pressure 118/80 06/08/19 09:54 Pulse Oximetry 95 06/08/19 09:54 Oxygen Delivery Method Room Air 06/08/19 09:54 Oxygen Flow Rate 0 06/08/19 09:54 Pain Level 4 06/08/19 09:54 Intake & Output 06/07/19 06/08/19 06/08/19 23:59 11:59 23:59 Weight 155 lb [facility] Medical History Endometriosis (Chronic) Hx of fracture (Acute) R acetabulum w/implant Hx of fracture of lower leg (Acute) R Tibia and Fibia w/implant Hx of fracture of wrist (Acute) R wrist w/implant Hx of pulmonary embolus (Acute) Surgical History History of carpal tunnel release (Acute) Painful orthopaedic hardware (Resolved) Prominent screw from volar distal radius plate S/P removal hardware 02/15/3019 Social History Smoking/Tobacco Use Status: Former Tobacco Use Alcohol Intake: current Alcohol Intake frequency: a few times a month Alcohol type: wine Drug use: Never Substance use type: does not use Current gender identity: female Do you feel safe at home: Yes Do you feel safe in your relationship?: Yes
--- NOTE | 2019-06-08 14:58 | W.PM.PROGNOT ---
Date of Service Date of service: 06/08/19 Time of Service: 20:51 Assessment and Plan Assessment and plan (1) Closed fracture of left tibial plateau: Status: Acute Assessment and plan: 53-year-old female postop day #0 status post left tibial plateau arthroscopically assisted ORIF and left intra-articular distal radius ORIF. Patient doing well. Very comfortable in recovery room. No concerns for compartment syndrome at this time. Toe-touch weightbearing left lower extremity. Daily range of motion in her hinged knee brace 0 to 90 degrees. Elevation 1-2 pillows most of the time over the next week to minimize swelling. Nonweightbearing left hand and wrist. Daily active and passive range of motion to all fingers and thumb to prevent stiffness. Elevate left wrist on 1-2 pillows also most the time over the next week to minimize decrease swelling. Pain control ordered Multimodal Complete 24 hours perioperative antibiotics Eliquis 2.5 mg p.o. twice daily ordered for DVT prophylaxis starting 24 hours post procedure. Eliquis chosen as patient has significant history of pulmonary embolism after her previous similar orthopedic surgeries on the contralateral distal radius and tibial plateau 1.5 years ago. Eliquis duration 30 days. Plan to transition to aspirin 325 milligram twice daily after completing Eliquis and continue until patient is return to her regular ambulatory status approximately 3 months. AMARJIT soto and SCD on right lower extremity. Plan for discharge home tomorrow afternoon pending comfort and safely mobilizing with crutches and physical therapy. Qualifiers: Encounter type: initial encounter Qualified Code(s): S82.142A - Displaced bicondylar fracture of left tibia, initial encounter for closed fracture (2) Closed fracture of left distal radius: Status: Acute Assessment and plan: As above Qualifiers: Encounter type: initial encounter Fracture morphology: other intra-articular Qualified Code(s): S52.572A - Other intraarticular fracture of lower end of left radius, initial encounter for closed fracture Subjective Subjective Interval history since last seen: Awake alert comfortable in recovery room. No complaints. Exam Const General: cooperative and no acute distress Orientation: alert, awake and not confused Limitations: mental status not altered and no language barrier Resp Effort & Inspection: normal respiratory effort, able to speak in complete sentences, no audible wheezes and no grunting General: deferred Skin General skin exam: no rashes or lesions noted Neuro General: alert, awake and oriented x3 Cognition: normal cognition Speech: speech normal Extrem Other: Left upper extremity: Volar splint clean dry intact. Demonstrates mild active motor all fingers and thumb limited by swelling. Apartments grossly soft through dressing. Grossly all nerves and tendons intact left upper extremity. Left lower extremity: Hinged knee brace and dressing clean dry intact. Still neurovascular block distally. Demonstrates intact straight leg raise. Compartments grossly soft through dressing. Psych Appearance: grossly normal Mental Status: mental status grossly normal Speech and Movement: speech and movement normal Affect: normal affect Attitude: cooperative Objective Objective Clinical Data: Vital Signs Temperature 98.1 F 06/08/19 09:54 Pulse 72 06/08/19 09:54 Pulse Rhythm Regular 06/08/19 09:54 Respiratory Rate 16 06/08/19 09:54 Respiratory Effort 06/08/19 09:54 Respiratory Depth Normal 06/08/19 09:54 Respiratory Pattern Normal 06/08/19 09:54 Blood Pressure 118/80 06/08/19 09:54 Pulse Oximetry 95 06/08/19 09:54 Oxygen Delivery Method Room Air 06/08/19 09:54 Oxygen Flow Rate 0 06/08/19 09:54 Pain Level 4 06/08/19 09:54 Intake & Output 06/07/19 06/08/19 06/08/19 23:59 11:59 23:59 Weight 155 lb
[2019-06-08] MEDS: ceFAZolin 2 GM/50 ML BAG IVPB (15:02)
[2019-06-08] MEDS: EPINEPHrine 30 MG/30 ML VIAL (15:34)
--- NOTE | 2019-06-08 16:45 | DI.RAD_ITS ---
EXAM: XR TIB/FIB LT CLINICAL HISTORY: Closed fracture of left tibial plateau. TECHNIQUE: 2D and realtime digital imaging was performed. COMPARISON: XR KNEE LT 4V AP,LAT,LING,PAT from 06/04/2019 FINDINGS: Fluoroscopy was provided in the OR for Dr. Jane. Hard copy images show placement of hardware in the lateral tibial plateau for fracture fixation. The alignment appears anatomic. FLUORO TIME: 88.2 seconds
--- NOTE | 2019-06-08 18:21 | DI.RAD_ITS ---
EXAM: XR WRIST LT COMPLETE CLINICAL HISTORY: dorsally displaced Left distal radius FRACTURE. TECHNIQUE: 2D and realtime digital imaging was performed. COMPARISON: XR WRIST LT COMPLETE from 06/05/2019 XR WRIST LT COMPLETE from 06/05/2019 FINDINGS: Fluoroscopy was provided in the OR. Hard copy images show placement of a fixation plate along the v olar aspect of the distal radius for fracture fixation. The alignment appears satisfactory. Fluoro time: 48.1 seconds
[2019-06-08] MEDS: HYDROmorphone 2 MG/ML VIAL IVP (20:26)
[2019-06-08] MEDS: Acetaminophen 500 MG TAB 1000 MG PO (21:35)
[2019-06-08] MEDS: Docusate Sodium 100 MG CAP PO (21:36)
[2019-06-08] MEDS: MORPHine 10 MG/ML VIAL IVP (21:36)
[2019-06-08] MEDS: oxyCODONE 5 MG TAB PO (21:36)
[2019-06-08] MEDS: Normal Saline Flush 10 ML SYR IV (21:37)
[2019-06-08] MEDS: ceFAZolin 1 GM/50 ML BAG IVPB (22:47)
[2019-06-09] MEDS: Normal Saline Flush 10 ML SYR IV ×2 (00:02→01:45)
[2019-06-09] MEDS: MORPHine 10 MG/ML VIAL IVP ×2 (00:04→01:46)
[2019-06-09] MEDS: Naproxen 500 MG TAB PO ×2 (00:05→17:22)
[2019-06-09] MEDS: Docusate Sodium 100 MG CAP PO (01:46)
[2019-06-09 04:20] VITALS: BP 106/71; PULSE 65; RESP 16; TEMP 36.6; O2SAT 98
[2019-06-09] MEDS: oxyCODONE 5 MG TAB PO ×3 (04:40→17:22)
[2019-06-09] MEDS: ceFAZolin 1 GM/50 ML BAG IVPB (06:40)
[2019-06-09 07:35] VITALS: BP 112/67; PULSE 76; RESP 20; TEMP 36.7; O2SAT 96
[2019-06-09] MEDS: Venlafaxine 37.5 MG CAPCR 75 MG PO (07:42)
[2019-06-09] MEDS: Acetaminophen 500 MG TAB 1000 MG PO ×2 (07:43→13:39)
[2019-06-09] MEDS: Lactated Ringers 1,000 ML 100 ML IV (08:39)
--- NOTE | 2019-06-09 08:50 | PT.INIE ---
PT Notes Visit Reasons: Orthopedic multi-trauma Physical Therapy Inpatient Initial Evaluation Date: 06/09/2019 Referring Doctor: George Jane M.D. PT Orders: PT CONSULT: s/p ortho surgery Precautions: Fall. Standard. Activity as tolerated. Toe-touch weightbearing LLE. NWB L wrist. Patient Profile/Admitting Diagnosis: Pt is a 53-year-old female presenting s/p ORIF of LLE for split depression lateral tibial plateau fracture and ORIF for L extra-articular distal radius fracture on post-operative day one. PMHX: Medical History Endometriosis (Chronic) Hx of fracture (Acute) R acetabulum w/implant Hx of fracture of lower leg (Acute) R Tibia and Fibula w/implant Hx of fracture of wrist (Acute) R wrist w/implant Surgical History History of carpal tunnel release (Acute) Social History/Home Situation: Pt lives at home with her , Dani. States that she enters the home through the garage and has 18 steps with bilateral railings to get to the main floor. Equipment Owned/DME: 4WW, cane, crutches, railings in bathroom. Subjective: Pt reports that she fell on ice on 06/04/2019, and reported to the emergency department where she was diagnosed with a L lateral tibial plateau fracture. States that she was sent home with crutches and fell in her bedroom on 06/05/2019. She reported back the ER and was diagnosed with a L distal radius fracture which was initially treated with closed reduction. She returned to the hospital for an ORIF of the tibial plateau fracture and radius fracture on , 06/08/2019. At the time of initial evaluation, she reports that she still unable to feel her L LE and only able to feel her pinky on the L UE. Objective: General Observation: IV line in L UE. Mental Status: alert and oriented x4 Pain: 0/10 at rest ROM: Right Upper Extremity: Shoulder Flexion WFL. Shoulder abduction WFL. Elbow flexion WFL. Wrist flexion WFL. Opening and closing of hand WFL. Left Upper Extremity: Shoulder Flexion WFL. Shoulder abduction WFL. Elbow flexion WFL. Wrist flexion WFL. Opening and closing of hand WFL. Right Lower Extremity: Hip flexion WFL. Hip abduction WFL. Knee flexion WFL. Ankle dorsiflexion WFL. Ankle plantarflexion WFL. Left Lower Extremity: Hip flexion WFL. Hip abduction WFL. Knee flexion WFL. Ankle dorsiflexion WFL. Ankle plantarflexion WFL. Strength: Right Upper Extremity: Shoulder flexors 5/5. Shoulder abductors 5/5. Elbow flexors 5/5. Elbow extensors 5/5. Platform Consultant strong. Left Upper Extremity: Grossly 3/5 at the shoulder. Elbow and asbestos removal supervisor NT. Right Lower Extremity: Hip flexors 5/5. Hip abductors 5/5. Knee flexors 5/5. Knee extensors 5/5. Ankle dorsiflexors 5/5. Ankle plantarflexors 5/5. Left Lower Extremity: Grossly 3/5 at the hip. Knee and ankle NT. Sensation: Intact as to pain and pressure on bilateral lower extremities. Bed Mobility/Transfers: Supine to sit independent Sit to supine independent Sit to stand SBA Stand to sit SBA Bed to chair SBA Chair to bed SBA Gait: Pt was able to ambulate 90 feet using a platform walker with TTWB of the L LE and NWB of the L wrist. Pt required three standing rest breaks with ambulation due to pain in her L wrist with prolonged weightbearing. SBA of PT with follow behind of wheelchair by PT student. Balance: Static Sitting: Normal Dynamic Sitting: Normal Static Standing: Good Dynamic Standing: Fair Special Tests: Mobility Limitations Standardized Measure [facility] AM-PAC 6 clicks Basic Mobility Inpatient Short Form: Raw Score: 20 CMS Score: 36% deficit Informed Consent/Education: Patient instructed in purpose of PT consult and plan of care. Assessment: Pt is a 53-year-old female presenting s/p ORIF of LLE for split depression lateral tibial plateau fracture and ORIF for L extra-articular distal radius fracture on post-operative day one. Pt presents with impairment level findings and significant functional limitations as listed below. She will benefit from continued skilled services for platform walker training. She is also required to negotiate 18 steps in order to enter the home and will need extensive training on stairs due to weight bearing precautions of LLE and LUE to safely return home. Patient presents with clinical signs and symptoms consistent with current/admitting diagnoses that have resulted to mobility limitations, gait instability and generalized weakness as demonstrated by the following impairment level findings: 1. Decreased global strength of L LE and L UE secondary to pain and anesthesia 2. Impaired standing balance 3. Impaired activity tolerance 4. Limitation of joint range of motion in L LE and L UE Impairments are contributing to the following functional limitations: 1. Increased dependence with transfers 2. Inability to safely ambulate without assistive device and physical assistance 3. Increase completion time for mobility ADL performance 4. Increased fall risk 5. Inability to negotiate steps alone safely Patient is [place] a 55170 moderate complexity based on the following: History: Pt is a 53-year-old female presenting s/p ORIF of LLE for split depression lateral tibial plateau fracture and ORIF for L extra-articular distal radius fracture on post-operative day one. Pt presents with impairment level findings and significant functional limitations as listed below. Examination: Demonstrable impairment in strength, balance, and range of motion with underlying impairments and functional limitations as documented above Presentation: Evolving Decision Makin moderate complexity Goals: Goals X1 week 1. Sit-Stand independent 2. Stand-Sit independent 3. Bed-Chair independent 4. Chair-Bed independent 5. Independent gait on level surface with use of platform walker for at least 150 feet without report of pain nor dyspnea 6. Stair negotiation with Min A while holding onto unilateral rail and with support of CG on the L UE for at least 18 steps without report of pain nor dyspnea 7. Independent with home exercise program 8. Good dynamic standing balance/tolerance Plan of Care/Treatment Plan: 1-2x/day, 7 days/week x 1 week. Plan of care has been reviewed with the HOME HEALTH ASSISTANT providing the service under Physical Therapy direction. Initiate Physical Therapy intervention for strengthening, bed mobility, transfers, gait, stairs, balance training, use of assistive device. DISCHARGE RECOMMENDATIONS: After assessment the pt will need continued services for platform walker training and may not be safe to go home today. She is also required to negotiate 18 steps in order to enter the home and will need extensive training on stairs due to weight bearing precautions of LLE and LUE to safely return home. Once safe to return home pt will require home health PT to continue with rehabilitation. TREATMENT CODE/TIME: 28984 x 50 minutes beginning at 8:50 A.M. Thank you very much for this referral. Eduard Blackburn, SPT Doctor of Physical Therapy Student [facility] Supervision provided by Gaytari Danielle PT, DPT, CLT [facility] [place], [place]
[2019-06-09 11:10] VITALS: BP 105/65; PULSE 55; RESP 18; TEMP 37; O2SAT 95
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
--- NOTE | 2019-06-09 12:34 | W.NUTCONSULT ---
Date of service: 06/09/19 Time of Service: 12:34 Nutritional Consult ASSESSMENT: 53 year old female with left fracture of radius. Following regular meal plan with adequate intake. BMI wnl for age. Not considered at nutritional risk. MONITORING AND EVALUATION: weight and po intake Time Spent in Nutritional Counseling and Treatment: 0 time spent face to face
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
[2019-06-09 16:18] VITALS: BP 112/70; PULSE 77; RESP 22; TEMP 36.7; O2SAT 97
--- NOTE | 2019-06-12 12:57 | PT.INDS ---
Date of service: 06/12/19 Time of Service: 12:58 PT Notes Visit Reasons: Orthopedic multi-trauma Physical Therapy Inpatient Discharge Summary Date: 06/12/2019 Referring Doctor: George Jane M.D. PT Orders: PT CONSULT: s/p ortho surgery Precautions: Fall. Standard. Activity as tolerated. Toe-touch weightbearing LLE. NWB L wrist. Patient Profile/Admitting Diagnosis: Pt is a 53-year-old female presenting s/p ORIF of LLE for split depression lateral tibial plateau fracture and ORIF for L extra-articular distal radius fracture on post-operative day one. PMHX: Medical History Endometriosis (Chronic) Hx of fracture (Acute) R acetabulum w/implant Hx of fracture of lower leg (Acute) R Tibia and Fibula w/implant Hx of fracture of wrist (Acute) R wrist w/implant Surgical History History of carpal tunnel release (Acute) Social History/Home Situation: Pt lives at home with her , Dani. States that she enters the home through the garage and has 18 steps with bilateral railings to get to the main floor. Equipment Owned/DME: 4WW, cane, crutches, railings in bathroom. Subjective: NT Objective: General Observation: NT Mental Status:NT Pain: NT ROM: Right Upper Extremity: Shoulder Flexion WFL. Shoulder abduction WFL. Elbow flexion WFL. Wrist flexion WFL. Opening and closing of hand WFL. Left Upper Extremity: Shoulder Flexion WFL. Shoulder abduction WFL. Elbow flexion WFL. Wrist flexion WFL. Opening and closing of hand WFL. Right Lower Extremity: Hip flexion WFL. Hip abduction WFL. Knee flexion WFL. Ankle dorsiflexion WFL. Ankle plantarflexion WFL. Left Lower Extremity: Hip flexion WFL. Hip abduction WFL. Knee flexion WFL. Ankle dorsiflexion WFL. Ankle plantarflexion WFL. Strength: Right Upper Extremity: Shoulder flexors 5/5. Shoulder abductors 5/5. Elbow flexors 5/5. Elbow extensors 5/5. Shank Faker strong. Left Upper Extremity: Grossly 3/5 at the shoulder. Elbow and deposit refund clerk NT. Right Lower Extremity: Hip flexors 5/5. Hip abductors 5/5. Knee flexors 5/5. Knee extensors 5/5. Ankle dorsiflexors 5/5. Ankle plantarflexors 5/5. Left Lower Extremity: Grossly 3/5 at the hip. Knee and ankle NT. Sensation: Intact as to pain and pressure on bilateral lower extremities. Bed Mobility/Transfers: Supine to sit independent Sit to supine independent Sit to stand SBA Stand to sit SBA Bed to chair SBA Chair to bed SBA Gait: Pt was able to ambulate 90 feet using a platform walker with TTWB of the L LE and NWB of the L wrist. Pt required three standing rest breaks with ambulation due to pain in her L wrist with prolonged weightbearing. SBA of PT with follow behind of wheelchair by PT student. Balance: Static Sitting: Normal Dynamic Sitting: Normal Static Standing: Good Dynamic Standing: Fair Assessment: Patient is discharged to home on day of evalaution. Pt is a 53-year-old female presenting s/p ORIF of LLE for split depression lateral tibial plateau fracture and ORIF for L extra-articular distal radius fracture on post-operative day one. Pt presents with impairment level findings and significant functional limitations as listed below. She will benefit from continued skilled services for platform walker training. She is also required to negotiate 18 steps in order to enter the home and will need extensive training on stairs due to weight bearing precautions of LLE and LUE to safely return home. Patient continues to present with clinical signs and symptoms consistent with current/admitting diagnoses that have resulted to mobility limitations, gait instability and generalized weakness as demonstrated by the following impairment level findings: 1. Decreased global strength of L LE and L UE secondary to pain and anesthesia 2. Impaired standing balance 3. Impaired activity tolerance 4. Limitation of joint range of motion in L LE and L UE Impairments cotninue to contribute to the following functional limitations: 1. Increased dependence with transfers 2. Inability to safely ambulate without assistive device and physical assistance 3. Increase completion time for mobility ADL performance 4. Increased fall risk 5. Inability to negotiate steps alone safely Goals: Goals X1 week 1. Sit-Stand independent NOT MET 2. Stand-Sit independent NOT MET 3. Bed-Chair independent NOT MET 4. Chair-Bed independent NOT MET 5. Independent gait on level surface with use of platform walker for at least 150 feet without report of pain nor dyspnea NOT MET 6. Stair negotiation with Min A while holding onto unilateral rail and with support of CG on the L UE for at least 18 steps without report of pain nor dyspnea NOT MET 7. Independent with home exercise program NOT MET 8. Good dynamic standing balance/tolerance NOT MET DISCHARGE RECOMMENDATIONS: Patient is to be discharged to home per orthopedic surgeon's order. However after PT assessment this morning, the pt will need continued services for platform walker training and may not be safe to go home today. She is also required to negotiate 18 steps in order to enter the home and will need extensive training on stairs due to weight bearing precautions of LLE and LUE to safely return home. Once safe to return home pt will require home health PT to continue with rehabilitation. TREATMENT CODE/TIME: NC. Thank you very much for this referral. Eduard Blackburn, SPT Doctor of Physical Therapy Student [facility] Supervision provided by Gayatri Danielle PT, DPT, CLT [facility] [place], [place]
== END 2019-06-09 18:08 | disposition home or self-care (01) | DRG 493 ==
LOC: PDS 20:54 → MS 20:57
PROVIDERS: Admitting Provider Student in an Organized Health Care Education/Training Program; PCP Family Medicine; Visit Provider Student in an Organized Health Care Education/Training Program
PROC: 0QSH04Z Reposition Left Tibia with Internal Fixation Device, Open Approach (ICD-10-PCS; CPT 27535; principal; 2019-06-08 11:30)
PROC: 0QSH04Z Reposition Left Tibia with Internal Fixation Device, Open Approach (ICD-10-PCS; CPT 27535; 2019-06-08 11:30)
DX: S82.142A Displaced bicondylar fracture of left tibia, initial encounter for closed fracture (principal); S52.572A Other intraarticular fracture of lower end of left radius, initial encounter for closed fracture; S52.552A Other extraarticular fracture of lower end of left radius, initial encounter for closed fracture; X50.0XXA Overexertion from strenuous movement or load, initial encounter; W00.0XXA Fall on same level due to ice and snow, initial encounter; Y93.01 Activity, walking, marching and hiking; G89.18 Other acute postprocedural pain; Z86.711 Personal history of pulmonary embolism
CPT/HCPCS: 27535; 29870; 25607; 76942; 97162; 97530; NC; 73110; 73590; J0690; J1100; J1885; J2001; J2250; J2270; J2405; L3650

== ENCOUNTER 2019-06-21 11:01 | Outpatient (CLI) | payer MEDICAID, SELFPAY ==
--- NOTE | 2019-06-21 | DI.RAD_ITS ---
EXAM: XR KNEE LT 2V AP,LAT INDICATION: F/U. COMPARISON: XR KNEE LT 4V AP,LAT,LING,PAT from 06/04/2019 XR WRIST LT COMPLETE from 06/08/2019 XR TIB/FIB LT from 06/08/2019 TECHNIQUE: 2D digital imaging was performed. FINDINGS: There has been no change in the hardware seen in the proximal tibia for fracture fixation. There is no change in fracture alignment.
--- NOTE | 2019-06-21 | DI.RAD_ITS ---
EXAM: XR WRIST LT LIMITED INDICATION: F/U. COMPARISON: XR WRIST LT COMPLETE from 06/05/2019 XR WRIST LT COMPLETE from 06/08/2019 TECHNIQUE: 2D digital imaging was performed. FINDINGS: A fixation plate is again noted along the volar aspect of the distal radius for fracture fixation. There is no change in fracture.
== END 2019-06-21 11:21 ==
PROVIDERS: PCP Family Medicine; Visit Provider Student in an Organized Health Care Education/Training Program
DX: S52.352D Displaced comminuted fracture of shaft of radius, left arm, subsequent encounter for closed fracture with routine healing (principal); M25.562 Pain in left knee; S82.142D Displaced bicondylar fracture of left tibia, subsequent encounter for closed fracture with routine healing
CPT/HCPCS: 73100; 73560

== ENCOUNTER 2019-07-12 17:58 | Emergency (ER) | payer MEDICAID, SELFPAY ==
[2019-07-12 18:00] VITALS: BP 113/73; PULSE 72; RESP 16; RESP 18; TEMP 37.1; O2SAT 97
--- NOTE | 2019-07-12 18:15 | DI.CT_ITS ---
EXAM: CT CHEST PE CTA CLINICAL HISTORY: short of breath, history of PE TECHNIQUE: Post IV contrast PE protocol. Axial CT angiography was performed with multi-slice acquisition and multi-planar and/or 3D reconstruc tions. 63 cc's of Omnipaque 350 was utilized. COMPARISON: LUMBAR AND THORACIC SP RECONS from 12/13/2017 FINDINGS: There is no evidence of pulmonary emboli or aortic dissection. No pleural or pericardial effusions or pulmonary infiltrates are seen. No mass or adenopathy is identified. There is no pneumothorax or rib fracture. The spine is unremarkable. The visualized portions of the upper abdominal organs are withi n normal limits. IMPRESSION: Negative chest CT. No evidence of pulmonary emboli or other acute abnormality.
--- NOTE | 2019-07-12 18:27 | ED.GENADUL_ITS ---
Discharge Plan Disposition Patient Disposition: HOME Condition: Stable Discharge Details Chief Complaint: SOB Clinical Impression: Shortness of breath Primary Care Provider: Grecia Maddox ED Provider: Phan Guardado Home Meds and New Rx's Prescriptions: Continued naproxen [EC-Naproxen] 500 mg tablet,delayed release (DR/EC) 500 mg PO BID PRN (Reason: pain) Qty: 60 RF: 0 pregabalin 75 mg capsule 75 mg PO BID 30 Days Qty: 60 RF: 0 venlafaxine [Effexor XR] 75 mg Capsule,Extended Release 24hr 75 mg PO DAILY RF: 0 oxycodone 5 mg Tablet 5 - 10 mg PO Q4H PRN PRN (Reason: Pain) Qty: 33 RF: 0 Discharge Instructions Additional Instructions: your blood work and cat scan did not show any concerning findings. 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 Denies any fevers, cough, vomit, abdominal pain. She has clear lungs, no rashes on the skin and no abdominal tenderness, ecg unremarkable. Could be pneumonitis, pleurisy but given given her history will obtain CTA to evaluate for PE as well as pna and ptx. Heart score is 2, will send troponin, imaging and labs unremarkable. Given her symptoms started this morning do not feel repeat troponin indicated. Suspect pleurisy, advised to f/u with pcp and return precautions given Differential Diagnosis Differential Diagnosis: pneumonitis, pna, ptx, PE Imaging Data Radiologic Study: Attestation: I personally reviewed and interpreted this imaging study as follows: Imaging: CT Scan Radiologist's impression: no acute findings Lab Data Lab results reviewed: Yes I reviewed the patient's lab results. ECG Data Attestation: I personally reviewed and interpreted this ECG (s) as follows: Prior ECG tracings: not available for review Interpretation: sinus rhythm, rate of 72, pr 162, qtc 455, no acute st t wave ischemic findings HPI General Mode of arrival: ambulatory . Date/Time Provider Initiated Documentation: 07/12/19 18:18 . Limitations to Documentation: no limitations . Information obtained by: patient . History of Present Illness 53 year old F presents to the emergency department with the chief complaint of shortness of breath, described as moderate, and it has been constant. No relieving factors improve symptom(s), No exacerbating factors reported . Patient did receive the following treatments prior to arrival, none Related Data Home Medications Medication Instructions Recorded Confirmed venlafaxine [Effexor XR] 75 mg PO DAILY 02/15/19 06/21/19 naproxen 500 mg tablet,delayed 500 mg PO BID PRN #60 tab 06/05/19 06/21/19 release oxycodone 5 - 10 mg PO Q4H PRN PRN #33 tab 06/09/19 06/21/19 pregabalin 75 mg capsule 75 mg PO BID 30 Days #60 cap 06/26/19 Previous Rx's Medication Instructions Recorded naproxen 500 mg tablet,delayed 500 mg PO BID PRN #60 tab 06/05/19 release oxycodone 5 - 10 mg PO Q4H PRN PRN #33 tab 06/09/19 pregabalin 75 mg capsule 75 mg PO BID 30 Days #60 cap 06/26/19 Allergies Allergy/AdvReac Type Severity Reaction Status Date / Time gabapentin AdvReac Intermediate very ill, Verified 06/26/19 14:17 hives General Stated Complaint: SOB SHANNEN: 2 Review of Systems All systems reviewed & are unremarkable except as noted in HPI and below Constitutional Constitutional: Denies chills, Denies fever(s) and Denies weakness Cardiovascular Cardiovascular: Denies chest pain and Denies dyspnea Respiratory Respiratory: Denies cough and Denies dyspnea Gastrointestinal Gastrointestinal: Denies abdominal pain, Denies nausea and Denies vomiting Musculoskeletal Musculoskeletal: Denies joint swelling Neurologic Neurologic: Denies weakness [facility] Social History Smoking/Tobacco Use Status: Former Tobacco Use Alcohol Intake: current Alcohol Intake frequency: a few times a month Alcohol type: wine Drug use: Never Substance use type: does not use Current gender identity: female Do you feel safe at home: Yes Do you feel safe in your relationship?: Yes Exam Const General: no acute distress Orientation: alert HENMT Head: normal to inspection Ears: external ears normal General nose exam: external nose normal Mouth: moist mucous membranes Eyes General: appearance normal, both eyes and all related structures Neck Neck: normal visual inspection Resp Effort & Inspection: normal respiratory effort and able to speak in complete sentences Cardio Rate: regular rate Skin General skin exam: no rashes or lesions noted Neuro General: alert and oriented x3 Extrem General: normal to inspection Psych Mental Status: mental status grossly normal Course Vital Signs Vital signs: Vital Signs Temperature 37.1 C 07/12/19 18:00 Pulse 72 07/12/19 18:00 Respiratory Rate 18 07/12/19 18:00 Blood Pressure 113/73 07/12/19 18:00 Pulse Oximetry 97 07/12/19 18:00 Temperature 37.1 C 07/12/19 18:00 Temperature Source Skin 07/12/19 18:00 Pulse 72 07/12/19 18:00 Respiratory Rate 18 07/12/19 18:00 Blood Pressure 113/73 07/12/19 18:00 Pulse Oximetry 97 07/12/19 18:00 Oxygen Delivery Method Room Air 07/12/19 18:00 Oxygen Flow Rate 0 07/12/19 18:00 Pain Level 3 07/12/19 18:00
[2019-07-12 18:45] LABS: Abs Immature Grans 0.01 k/cumm (0.0-0.09); Absolute Basophil Count 0.03 k/cumm (0.0-0.2); Absolute Eosinophil Count 0.08 k/cumm (0.0-0.7); Absolute Lymphocyte Count 2.24 k/cumm (1.2-3.4); Absolute Monocyte Count 0.78 k/cumm (0.11-0.7); Absolute Neutrophil Count 5.15 k/cumm (1.2-6.7); Basophils % 0.4; HCT 39.8 % (36.0-46.0); HGB 13.7 g/dL (12.0-15.5); Immature Grans % 0.1 %; Mean Corp. HGB Concentration 34.4 g/dL (32.0-36.0); Mean Corpuscular Hemoglobin 31.2 pg (27.0-33.0); Mean Corpuscular Volume 90.7 fL (80-95); Mean Platelet Volume 8.6 fL (8.0-11.0); Monocytes % 9.4; Neutrophils % 62.1; Platelet Count 218 x1000/uL (130-400); RBC 4.39 m/cumm (4.00-5.20); RBC Distribution Width 12.1 % (11.7-14.6); White Blood Cell Count 8.29 k/cumm (4.4-10.8)
[2019-07-12] MEDS: Normal Saline - Diluent 50 ML VIAL IV (18:49)
[2019-07-12] MEDS: Omnipaque 350 MG/ML 100 ML BTL IJ (18:49)
[2019-07-12 18:57] LABS: PTT Activated 22.7 sec (21.0-31.4); Prothrombin Time 10.3 sec (9.3-11.0)
--- NOTE | 2019-07-12 19:02 | DI.VRAD_ITS ---
PROCEDURE INFORMATION: Exam: CT Angiography Chest With Contrast Exam date and time: 07/12/2019 6:24 PM Age: 53 years old Clinical indication: Other: Short of breath, history of pe TECHNIQUE: Imaging protocol: Computed tomographic angiography of the chest with intravenous contrast. 3D rendering: MIP and/or 3D reconstructed images were created by the technologist. Radiation optimization: All CT scans at this facility use at least one of these dose optimization techniques: automated exposure control; mA and/or kV adjustment per patient size (includes targeted exams where dose is matched to clinical indication); or iterative reconstruction. Contrast material: OMNIPAQUE 350; Contrast volume: 63 ml; Contrast route: IV; COMPARISON: No relevant prior studies available. FINDINGS: Pulmonary arteries: No acute pulmonary embolus. Aorta: No aortic aneurysm. No aortic dissection. Lungs: No consolidation. No masses. Pleural space: Unremarkable. No pneumothorax. No pleural effusion. Heart: No cardiomegaly. No pericardial effusion. Lymph nodes: Unremarkable. No enlarged lymph nodes. Bones/joints: Unremarkable. No acute fracture. Soft tissues: Unremarkable. IMPRESSION: No acute pulmonary embolus. Dictated and Authenticated by: Melecio Marquez MD. Ordering:NELDA Chisholm MD
[2019-07-12 19:03] LABS: ALT 68 U/L (14-59); AST 35 U/L (15-37); Alkaline Phosphatase 102 U/L (46-116); Anion Gap 11.4 mmol/L (3-11); BUN 12 mg/dL (7-18); Bilirubin, Total 0.3 mg/dL (0.2-1.0); CO2 26.6 mmol/L (21.0-32.0); CREATININE 0.87 mg/dL (0.55-1.02); Calcium 8.6 mg/dL (8.5-10.1); Chloride 105 mmol/L (98-107); Glucose 83 mg/dL (74-106); Lipase 229 U/L (73-393); Magnesium 1.9 mg/dL (1.8-2.4); Potassium 3.4 mmol/L (3.5-5.1); Sodium 143 mmol/L (136-145); Total Protein 7.1 g/dL (6.4-8.2); Troponin I < 0.05 ng/Ml (<0.06)
[2019-07-12 19:21] VITALS: BP 119/77; PULSE 76; RESP 16; TEMP 36; O2SAT 97
[2019-07-12 19:23] VITALS: BP 119/77; PULSE 76; RESP 16; TEMP 36; O2SAT 97
== END 2019-07-12 19:20 | disposition home or self-care (01) ==
PROVIDERS: Emergency Provider Emergency Medicine; PCP Family Medicine
DX: R06.02 Shortness of breath (principal); R07.81 Pleurodynia; Z86.711 Personal history of pulmonary embolism
CPT/HCPCS: 36415; 71275; 80053; 83690; 93005; 99285; 83735; 84484; 85025; 85610; 85730; 93010; J3490

== ENCOUNTER 2019-07-19 11:23 | Outpatient (CLI) | payer MEDICAID, SELFPAY ==
--- NOTE | 2019-07-19 11:00 | DI.RAD_ITS ---
EXAM: XR KNEE LT 2V AP,LAT INDICATION: Follow up. COMPARISON: XR KNEE LT 2V AP,LAT from 06/21/2019 TECHNIQUE: 2D digital imaging was performed. FINDINGS: There has been no change in the hardware in the proximal tibia for fixation of the previously noted t ibial plateau fracture. No new abnormalities are seen. DATA REPOSITORY: RADIATION DOSE DELIVERED:
--- NOTE | 2019-07-19 11:00 | DI.RAD_ITS ---
EXAM: XR WRIST LT LIMITED INDICATION: Follow up. COMPARISON: XR WRIST LT LIMITED from 06/21/2019 TECHNIQUE: 2D digital imaging was performed. FINDINGS: There has been no change in the alignment of distal radial fracture or volar fixation plate. Bones n ow show some disuse osteopenia. DATA REPOSITORY: RADIATION DOSE DELIVERED:
== END 2019-07-19 11:43 ==
PROVIDERS: PCP Family Medicine; Visit Provider Student in an Organized Health Care Education/Training Program
DX: S82.142D Displaced bicondylar fracture of left tibia, subsequent encounter for closed fracture with routine healing (principal); S52.352D Displaced comminuted fracture of shaft of radius, left arm, subsequent encounter for closed fracture with routine healing
CPT/HCPCS: 73100; 73560

== ENCOUNTER 2019-08-22 03:17 | Outpatient (CLI) | payer MEDICAID, SELFPAY ==
--- NOTE | 2019-08-22 | DI.DEXA_ITS ---
EXAM: XR DEXA BONE DENSITY W/WO CHANDRAKANT CLINICAL HISTORY: SCREENING FOR OSTEOPOROSIS IN POSTMENOPAUSAL WOMAN,Z78.0 TECHNIQUE: Simpleview C densitometer COMPARISON: None FINDINGS: The lateral shactor view of the spine shows no evidence of compression fractures. The bone mineral density measurements of the right hip correspond to a total T-score of -1.3 and a fe moral neck T-score of -1.9, consistent with osteopenia. The bone mineral density measurements of the lumbar spine correspond to a total T-score of -2.0, consistent with osteopenia. The forearm was not analyzed. IMPRESSION: Osteopenia of the lumbar spine and right hip.
== END 2019-08-22 03:37 ==
PROVIDERS: PCP Family Medicine; Visit Provider Family Medicine
DX: M85.88 Other specified disorders of bone density and structure, other site (principal); Z78.0 Asymptomatic menopausal state
CPT/HCPCS: 77080

== ENCOUNTER 2019-09-06 11:17 | Outpatient (CLI) | payer MEDICAID, SELFPAY ==
--- NOTE | 2019-09-06 11:00 | DI.RAD_ITS ---
EXAM: XR WRIST LT LIMITED CLINICAL HISTORY: ORIF L WRIST. TECHNIQUE: 2D digital imaging was performed. COMPARISON: XR WRIST LT LIMITED from 07/19/2019 FINDINGS: BONES: There has been no change in alignment of the distal left radial fracture. The side plates and screws are stable in alignment. No fracture or dislocation is identified. JOINTS: The carpal bones are normally aligned. SOFT TISSUE: Normal. IMPRESSION: No significant change compared to the prior examination. DATA REPOSITORY: RADIATION DOSE DELIVERED:
== END 2019-09-06 11:37 ==
PROVIDERS: PCP Family Medicine; Visit Provider Physician Assistant
DX: S52.352D Displaced comminuted fracture of shaft of radius, left arm, subsequent encounter for closed fracture with routine healing
CPT/HCPCS: 73100

== ENCOUNTER 2019-11-29 11:09 | Outpatient (CLI) | payer MEDICAID, SELFPAY ==
--- NOTE | 2019-11-29 10:30 | DI.RAD_ITS ---
EXAM: XR WRIST LT LIMITED CLINICAL HISTORY: fu left radius fracture TECHNIQUE: 2D digital imaging was performed. COMPARISON: CR XR WRIST LT LIMITED from 09/06/2019 FINDINGS: There has been no change in the hardware or fracture alignment. No new abnormalities are seen. Ther e is continued healing of the distal radial fracture.
--- NOTE | 2019-11-29 10:30 | DI.RAD_ITS ---
EXAM: XR KNEE LT 2V AP,LAT CLINICAL HISTORY: fu left knee fracture TECHNIQUE: 2D digital imaging was performed. COMPARISON: CR XR KNEE LT 2V AP,LAT from 07/19/2019 FINDINGS: There has been no change in the proximal tibial hardware. Joint spaces are well maintained. No abno rmal bony lucencies are seen.
== END 2019-11-29 11:29 ==
PROVIDERS: PCP Family Medicine; Visit Provider Student in an Organized Health Care Education/Training Program
DX: S52.572D Other intraarticular fracture of lower end of left radius, subsequent encounter for closed fracture with routine healing (principal); S82.142D Displaced bicondylar fracture of left tibia, subsequent encounter for closed fracture with routine healing
CPT/HCPCS: 73100; 73560

== ENCOUNTER 2020-03-19 00:55 | Outpatient (CLI) | payer MEDICAID, SELFPAY ==
--- NOTE | 2020-03-19 12:49 | DI.MAMMO_ITS ---
EXAM: MAMMO SCREENING CLINICAL HISTORY: SCREENING,Z12.31 TECHNIQUE: Mammograms were interpreted according to the usual protocol including computer analysis w [facility] CAD system, tomosynthesis and C-view imaging. COMPARISON: FINDINGS: The breasts are of moderate density with fairly symmetrical distribution of fibroglandular tissue. N o dominant mass or clumped microcalcification is identified in either breast. The current examinatio n is compared with previous examination of November 2017 and there has been no gross interval change in a ppearance in comparison with the prior study. IMPRESSION: No specific evidence of malignancy at this time. Routine screening examinations are suggested at ye cain intervals in this age group according to the ACS ACR guidelines. BI-RADS Category 1 - Negative Breast Density - Category B - Scattered areas of fibroglandular density
== END 2020-03-19 01:15 ==
PROVIDERS: PCP Family Medicine; Visit Provider Family Medicine
DX: Z12.31 Encounter for screening mammogram for malignant neoplasm of breast (principal)
CPT/HCPCS: 77063; 77067

== ENCOUNTER 2020-04-08 15:44 | Outpatient (REF) | payer MEDICAID, SELFPAY ==
[2020-04-11 17:40] LABS: Patient Race White; SARS-CoV-2 RNA Undetected (Undetected); SARS-CoV-2 Specimen Source Nasal
== END 2020-04-08 16:04 ==
LOC: NCHCN 15:44
PROVIDERS: PCP Family Medicine; Visit Provider Family Medicine
DX: Z20.828 Contact with and (suspected) exposure to other viral communicable diseases (principal)
CPT/HCPCS: U0003

== ENCOUNTER → 2020-05-29 13:45 | Outpatient (BNVA) | payer MEDICARE, MEDICAID, SELFPAY | PROVIDERS: PCP Family Medicine; Referring Provider Family Medicine; Visit Provider Student in an Organized Health Care Education/Training Program | DX: S84.12XD Injury of peroneal nerve at lower leg level, left leg, subsequent encounter (principal); S44.12 Injury of median nerve at upper arm level, left arm; X58.XXXD Exposure to other specified factors, subsequent encounter; M25.531 Pain in right wrist; M25.562 Pain in left knee; M21.372 Foot drop, left foot; Z87.81 Personal history of (healed) traumatic fracture; I10 Essential (primary) hypertension | CPT/HCPCS: 99214 ==

== ENCOUNTER 2020-09-30 17:50 | Outpatient (REF) | payer MEDICARE, MEDICAID, SELFPAY ==
--- NOTE | 2020-09-30 15:10 | SKI_PTH ---
PATIENT: Daphne Pickard LOC: [facility]#:[id number] AGE/SX: 55/F ROOM: RE09/30/[address]: Grecia Maddox : 1965 BED: DIS: 09/30/2020 SPEC #: [id number] RECD: 10/01/20 12:36 STATUS: MAYA VALENCIA #: [id number] CHRISTIANO: 09/30/20 15:[address]: Gercia Maddox DEPT: Surgical Specimen RECD BY: Sherri Saavedra Tissues: 1 - SKIN BIOPSY(SHAVE/PUNCH) Procedures: SKIN LEVEL 4 Comments: [id number]
== END 2020-09-30 17:51 | disposition home or self-care (01) ==
LOC: NCHCN 17:50
PROVIDERS: PCP Family Medicine; Visit Provider Family Medicine
DX: D22.61 Melanocytic nevi of right upper limb, including shoulder (principal)
CPT/HCPCS: 88305

== ENCOUNTER 2021-08-27 10:25 | Outpatient (REF) | payer MEDICARE, MEDICAID, SELFPAY ==
[2021-08-27 15:46] LABS: HCT 39.3 % (36.0-46.0); HGB 13.2 g/dL (11.2-15.7); MCH 31.1 pg (27.0-33.0); MCHC 33.6 % (32.0-36.0); MCV 92.5 fL (80-95); MPV 8.8 fL (8.0-11.0); Platelet Count 299 10^3/uL (130-400); RBC 4.25 10^6/uL (3.93-5.22); RDW 12.1 % (11.7-14.6); RDW-SD 40.7 fL; WBC 6.72 10^3/uL (4.4-10.8)
[2021-08-27 16:27] LABS: ALT 24 U/L (14-59); AST 19 U/L (15-37); Albumin 4.2 g/dL (3.4-5.0); Alkaline Phosphatase 71 U/L (46-116); Anion Gap 9.3 mmol/L (3-11); BUN 11 mg/dL (7-18); Bilirubin, Total 0.5 mg/dL (0.2-1.0); CO2 26.7 mmol/L (21.0-32.0); CREATININE 0.9 mg/dL (0.55-1.02); Calcium 8.9 mg/dL (8.5-10.1); Calculated LDL 171 mg/dL (<100); Chloride 106 mmol/L (98-107); Cholesterol 276 mg/dL (<200); Glucose 92 mg/dL (74-106); HDL Cholesterol 85 mg/dL (40-60); Magnesium 2.3 mg/dL (1.8-2.4); Sodium 142 mmol/L (136-145); Triglyceride 101 mg/dL (<150)
[2021-08-28 05:32] LABS: Vitamin D 25 Total 29.7 ng/mL (30-100)
== END 2021-08-27 10:26 | disposition home or self-care (01) ==
LOC: NCHCN 10:25
PROVIDERS: PCP Family Medicine; Visit Provider Family Medicine
DX: Z13.89 Encounter for screening for other disorder (principal)
CPT/HCPCS: 80053; 80061; 82306; 85027; 83735

== ENCOUNTER → 2021-11-07 00:03 | Outpatient (CLI) | payer MEDICARE, SELFPAY ==
--- NOTE | 2021-11-07 15:58 | DI.MAMMO_ITS ---
Exam(s) MAMMO SCREENING EXAM: MAMMO SCREENING CLINICAL HISTORY: SCREENING FOR BREAST CANCER Z12.31 TECHNIQUE: Mammograms were interpreted according to the usual protocol including computer analysis w [employer] CAD system, tomosynthesis and C-view imaging. COMPARISON: FINDINGS: The breasts are of moderate density with fairly symmetrical distribution of fibroglandular tissue. N o dominant mass or clumped microcalcification is identified in either breast. The current examinatio n is compared with previous examinations including February 2020 and there has been no gross interval change in appearance in comparison with the prior studies. IMPRESSION: No specific evidence of malignancy at this time. Routine screening examinations are suggested at yea rly intervals in this age group according to the ACS ACR guidelines. BI-RADS Category 1 - Negative Breast Density - Category B - Scattered areas of fibroglandular density
== END ==
PROVIDERS: PCP Family Medicine; Visit Provider Family Medicine
DX: Z12.31 Encounter for screening mammogram for malignant neoplasm of breast (principal)
CPT/HCPCS: 77063; 77067

== ENCOUNTER → 2022-03-11 01:29 | Outpatient (CLI) | payer MEDICARE, SELFPAY ==
--- NOTE | 2022-03-11 06:45 | DI.US_ITS ---
Exam(s) US PELVIS TRANSVAGINAL US SOFT TISS ABD WALL/LOW BACK EXAM: US PELVIS TRANSVAGINAL CLINICAL HISTORY: pelvic pain,R10.2 TECHNIQUE: Ultrasound of the pelvis was performed both transabdominal and transvaginal. COMPARISON: US US OR ANESTHESIA from 06/08/[address] CHEST PE CTA from 07/12/2019 US US SOFT TISS ABD WALL/LOW BACK from 03/11/2022 FINDINGS: UTERUS: Anteverted Measures 5 cm length x 1.8 cm AP x 3.4 cm wide. There are no uterine fibroids. Endometrial thickness measures 2.3 mm. There is no fluid in the endometrial canal. CERVIX: There are no obvious nabothian cysts. ADNEXAL REGIONS: There is a large ominous complex solid-cystic mass just above the fundus of the uterus measuring appr oximately 12 cm x 7.7 cm which is most probably ovarian pathology. The ovaries are not identified as separate structures and therefore this is presumed to be of ovarian origin. There is no associated free fluid. IMPRESSION: 1. There is a large complex partially solid partially cystic mass in the pelvis just above the uterin e fundus and urinary bladder, this measuring approximately 12 x 7.7 cm. First consideration is for n eoplastic ovarian pathology. The ovaries are not identified as separate structures. 2. There is no free fluid evident in the pelvis. 3. Follow-up contrast infused CT scan of the abdomen and pelvis recommended. Findings called by myself to the ordering provider 03/11/2022 at 9:35 a.m. DATA REPOSITORY:
--- NOTE | 2022-03-11 14:15 | DI.CT_ITS ---
Exam(s) CT ABDOMEN PELVIS W EXAM: CT ABDOMEN PELVIS W CLINICAL HISTORY: pelvic mass, R19.00. TECHNIQUE: Imaging Protocol: Axial computed tomography images with coronal and sagittal reformatted images were created and reviewed CONTRAST MATERIAL: Intravenous: Omnipaque 100cc Oral: Yes COMPARISON: CT CT CHEST PE CTA from 07/12/2019 FINDINGS: VISUALIZED LUNG BASES: No nodules nor pleural effusions evident. ABDOMEN: There is no ascites. LIVER: There is a solitary small benign-appearing hypodensity in the right hepatic lobe measuring 5 m illimeters. This is probably a small hemangioma or cyst. No other focal hepatic findings evident. GALLBLADDER/BILIARY: No obvious gallbladder pathology. CBD is not dilated. PANCREAS: No evidence of pancreatic mass nor dilatation of the pancreatic duct. SPLEEN: Spleen is not enlarged. No obvious intrasplenic lesions. Splenic and portal veins are paten t. ADRENALS: There are no significant adrenal masses. KIDNEYS:No cysts evident. No solid renal masses. No calculi nor hydronephrosis.. ABDOMINAL AORTA: Abdominal aorta is not enlarged. LYMPH NODES:There is no retroperitoneal nor paraaortic adenopathy. ABDOMINAL WALL: No evidence of significant anterior abdominal wall nor inguinal hernia. GI: No evidence of bowel obstruction. No free air. PELVIS: GI: No evidence of appendicitis.No evidence of sigmoid diverticulitis. LYMPH NODES: There is no intrapelvic nor inguinal adenopathy. REPRODUCTIVE: Uterus is anteverted. There is a large heterogeneous partially solid partially cystic mass above the fundus of the uterus and just above the urinary bladder which measures approximately 1 2 x 8 by 9 cm and which corresponds to the finding on ultrasound earlier today. This is most probabl y neoplastic ovarian pathology. The left ovary may be identified here. The right ovary is not ident ified as a separate structure from this mass. There is no free fluid in the pelvis. URINARY BLADDER: This mass is immediately above the urinary bladder. There does not appear to be an intrinsic urinary bladder mass and the above described large ominous mass does not appear to invade t he urinary bladder wall. OSSEOUS: There is fixation hardware in left hemipelvis from prior healed fracture. There are no acut e fractures. No lytic nor blastic osseous lesions identified. IMPRESSION: 1. There is a large heterogeneous ominous appearing 12 x 8 centimeter pelvic mass located just above the fundus of the uterus and urinary bladder. 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 Less likely would be a large malignant-appearing fibroid exophytic off the uterine fundus. 2. There is no ascites in the abdomen and pelvis. There is no omental cake. 3. Other findings as above. RADIATION DOSE DELIVERED: 819.52mGy.cm Total DLP DATA REPOSITORY: All CT scans at this facility are submitted to the National Radiology Data Registry (NRDR) Dose Index Registry (DIR) with the [employer] (ACR). RADIATION OPTIMIZATION: All CT scans at this facility use at least one of these dose optimization te chniques: automated exposure control; mA and/or kV adjustment per patient size (includes targeted exa ms where dose is matched to clinical indication); or iterative reconstruction.
[2022-03-11 16:00] LABS: ALT 21 U/L (14-59); AST 20 U/L (15-37); Albumin 3.9 g/dL (3.4-5.0); Alkaline Phosphatase 68 U/L (46-116); Anion Gap 7.1 mmol/L (3-11); BUN 13 mg/dL (7-18); Bilirubin, Total 0.3 mg/dL (0.2-1.0); CO2 28.9 mmol/L (21.0-32.0); CREATININE 0.9 mg/dL (0.55-1.02); Calcium 9.3 mg/dL (8.5-10.1); Chloride 105 mmol/L (98-107); Estimated GFR 75.03 (mL/min/1.73m2); Glucose 99 mg/dL (74-106); Potassium 4.1 mmol/L (3.5-5.1); Sodium 141 mmol/L (136-145); Total Protein 7.2 g/dL (6.4-8.2)
--- NOTE | 2022-03-11 17:40 | DI.VRAD_ITS ---
Addendum created by Javier Arriaga MD on 03/11/2022 6:14:24 PM EDT: Findings were discussed with Dr. Rodríguez at 03/11/2022 6:13 PM EDT. Initial report created on 03/11/2022 5:39:31 PM EDT: PROCEDURE INFORMATION: Exam: CT Abdomen And Pelvis With Contrast Exam date and time: 03/11/2022 4:38 PM Age: 56 years old Clinical indication: Other: Pelvic mass TECHNIQUE: Imaging protocol: Computed tomography of the abdomen and pelvis with contrast. Radiation optimization: All CT scans at this facility use at least one of these dose optimization techniques: automated exposure control; mA and/or kV adjustment per patient size (includes targeted exams where dose is matched to clinical indication); or iterative reconstruction. COMPARISON: CT CHEST ABD PELVIS WITH CONTRAST 12/13/2017 7:44 PM FINDINGS: Liver: There is a stable 4 mm low-dense liver lesion, likely a benign cyst. Gallbladder and bile ducts: Normal. No calcified stones. No ductal dilation. Pancreas: The pancreas is mildly atrophic, but otherwise appears unremarkable without focal lesion or evidence of acute inflammation. Spleen: Normal. No splenomegaly. Adrenal glands: Normal. No mass. Kidneys and ureters: Normal. No hydronephrosis. Stomach and bowel: Unremarkable. No obstruction. No mucosal thickening. Appendix: No evidence of appendicitis. Intraperitoneal space: There is no evidence of free intraperitoneal fluid. There is no free intraperitoneal air. Vasculature: The aorta and iliac arteries demonstrate mild atherosclerotic calcification without aneurysm formation. Lymph nodes: There is a 6 mm aortocaval lymph node on axial image 43, series 4, which measured 3 mm on prior study. No adenopathy within the pelvis is identified. Urinary bladder: Unremarkable. Reproductive: There is a new 7.8 x 8.7 x 11.5 cm mixed cystic and solid mass within the anterior midline pelvis residing superior to the bladder and anterior to the uterus, consistent with neoplasm. There is a 7.8 x 7.8 cm cystic component of the mass with irregularly thickened scott. There is also a predominantly solid 7.7 x 7.9 cm component. There appears to be a thin fat plane between the superior aspect of the bladder and the mass. The posteroinferior aspect of the mass abuts the uterine fundus, as seen around sagittal image 68, series 7, and some degree of local invasion of the uterine fundus cannot be excluded. The left adnexa is seen to be separate from the mass around axial image 67, series 4, and findings suggest right ovarian neoplasm. Bones/joints: There is a plate and screws within the left innominate bone involving the posterior aspect of the left acetabulum, status post ORIF of prior fracture in this region. Hardware appears intact and the fracture appears healed. There is mild facet arthrosis of the lower lumbar spine and multilevel mild spondylosis as well. No suspicious osseous lesions are identified. Soft tissues: No soft tissue nodules or fluid collections. IMPRESSION: 1. 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 Recommend consultation with gynecology service to guide further management. Further evaluation with pelvic MRI can be obtained as clinically indicated. 2. Mild increase in size of a prominent subcentimeter retroperitoneal lymph node, indeterminate. Early metastatic neoplasm cannot be excluded. 3. No evidence for solid organ or osseous metastases within the abdomen or pelvis. No ascites or other evidence of intraperitoneal metastases. Dictated and Authenticated by: Javier Arriaga MD. Ordering:UYEN Albright MD
== END ==
PROVIDERS: PCP Family Medicine; Visit Provider Obstetrics & Gynecology
DX: R10.9 Unspecified abdominal pain (principal); R10.2 Pelvic and perineal pain; R19.07 Generalized intra-abdominal and pelvic swelling, mass and lump
CPT/HCPCS: 80053; 74177; 76705; 76830; 76856

== ENCOUNTER 2022-11-05 15:33 | Outpatient (CLI) | payer MEDICARE, SELFPAY ==
[2022-11-06 11:54] LABS: CA 19-9 13 U/mL (<35)
== END 2022-11-05 15:34 | disposition home or self-care (01) ==
LOC: LBO 15:33
PROVIDERS: PCP Family Medicine; Visit Provider Obstetrics & Gynecology Gynecologic Oncology
DX: C56.1 Malignant neoplasm of right ovary (principal)
CPT/HCPCS: 36415; 86301

== ENCOUNTER 2023-03-01 13:52 | Outpatient (REF) | payer MEDICARE, SELFPAY ==
[2023-03-01 16:24] LABS: Hemoglobin A1C 5.6 % (<5.7)
[2023-03-01 16:52] LABS: ALT 59 U/L (14-59); AST 33 U/L (15-37); Alkaline Phosphatase 117 U/L (46-116); Anion Gap 10.7 mmol/L (3-11); BUN 15 mg/dL (7-18); Bilirubin, Total 0.3 mg/dL (0.2-1.0); CO2 25.3 mmol/L (21.0-32.0); CREATININE 0.8 mg/dL (0.55-1.02); Calcium 9.3 mg/dL (8.5-10.1); Calculated LDL 128 mg/dL (<100); Chloride 105 mmol/L (98-107); Cholesterol 249 mg/dL (<200); Estimated GFR 85.89 (mL/min/1.73m2); Glucose 83 mg/dL (74-106); HDL Cholesterol 81 mg/dL (40-60); Potassium 4.1 mmol/L (3.5-5.1); Sodium 141 mmol/L (136-145); TSH (W/Ref FT4) 1.73 uIU/mL (0.36-3.74); Triglyceride 200 mg/dL (<150)
[2023-03-01 18:30] LABS: Vitamin D 25 Total 48.9 ng/mL (30-100)
== END 2023-03-01 13:53 | disposition home or self-care (01) ==
LOC: NCHCN 13:52
PROVIDERS: PCP Family Medicine; Visit Provider Nurse Practitioner Family
DX: I10 Essential (primary) hypertension (principal); R63.5 Abnormal weight gain; Z00.00 Encounter for general adult medical examination without abnormal findings
CPT/HCPCS: 80053; 80061; 82306; 83036; 84443

== ENCOUNTER 2023-08-26 16:50 | Outpatient (REF) | payer MEDICARE, SELFPAY ==
[2023-08-26 19:10] LABS: ALT 82 U/L (14-59); AST 40 U/L (15-37); Alkaline Phosphatase 116 U/L (46-116); Anion Gap 10.1 mmol/L (3-11); BUN 14 mg/dL (7-18); Bilirubin, Total 0.3 mg/dL (0.2-1.0); CO2 26.9 mmol/L (21.0-32.0); Calcium 9.1 mg/dL (8.5-10.1); Calculated LDL 155 mg/dL (<100); Chloride 106 mmol/L (98-107); Cholesterol 276 mg/dL (<200); Glucose 92 mg/dL (74-106); HDL Cholesterol 96 mg/dL (40-60); Potassium 4.5 mmol/L (3.5-5.1); Sodium 143 mmol/L (136-145); Total Protein 7.2 g/dL (6.4-8.2); Triglyceride 126 mg/dL (<150)
== END 2023-08-26 16:51 | disposition home or self-care (01) ==
LOC: NCHCN 16:50
PROVIDERS: PCP Family Medicine; Visit Provider Nurse Practitioner Family
DX: Z13.6 Encounter for screening for cardiovascular disorders (principal); Z00.00 Encounter for general adult medical examination without abnormal findings
CPT/HCPCS: 80053; 80061

== ENCOUNTER 2023-11-08 20:32 | Outpatient (REF) | payer MEDICARE, SELFPAY ==
[2023-11-08 21:16] LABS: ALT 36 U/L (14-59); AST 27 U/L (15-37); Albumin 4.2 g/dL (3.4-5.0); Alkaline Phosphatase 84 U/L (46-116); Anion Gap 9.7 mmol/L (3-11); BUN 12 mg/dL (7-18); Bilirubin, Total 0.4 mg/dL (0.2-1.0); CO2 29.3 mmol/L (21.0-32.0); CREATININE 1.1 mg/dL (0.55-1.02); Calcium 9.5 mg/dL (8.5-10.1); Chloride 104 mmol/L (98-107); Estimated GFR 58.24 (mL/min/1.73m2); Glucose 152 mg/dL (74-106); Potassium 3.9 mmol/L (3.5-5.1); Sodium 143 mmol/L (136-145); Total Protein 7.2 g/dL (6.4-8.2)
[2023-11-08 22:02] LABS: Calculated LDL 117 mg/dL (<100); Cholesterol 236 mg/dL (<200); HDL Cholesterol 88 mg/dL (40-60); Triglyceride 158 mg/dL (<150)
== END 2023-11-08 20:33 | disposition home or self-care (01) ==
LOC: LBN 20:32
PROVIDERS: PCP Family Medicine; Visit Provider Nurse Practitioner Family
DX: E78.5 Hyperlipidemia, unspecified (principal)
CPT/HCPCS: 80053; 80061

== ENCOUNTER → 2023-11-12 00:23 | Outpatient (CLI) | payer MEDICARE, SELFPAY ==
--- NOTE | 2023-11-12 | DI.MAMMO_ITS ---
Exam(s) MAMMO SCREENING EXAM: MAMMO SCREENING CLINICAL HISTORY: SCREENING, Z12.31 TECHNIQUE: Mammograms were interpreted according to the usual protocol including computer analysis w [employer] CAD system, tomosynthesis and C-view imaging. COMPARISON: 2017 through 2021 FINDINGS: The breasts are composed of scattered fibroglandular densities, Breast Density category B. No suspicious masses or suspicious microcalcifications are seen the left breast. No suspicious calci fications in either breast. No skin thickening or abnormal axillary lymph nodes are seen. There has been no significant change in the left breast from prior exams. There is a question of an area of nodularity versus overlying fibroglandular tissue in the subareolar tissue of the right breast seen on the lateral view. Spot compression views and ultrasound are requ ested for further evaluation. IMPRESSION: BI-RADS Category 0 - Assessment Incomplete: Need additional imaging evaluation . Breast Density - Category B, scattered fibroglandular densities. A negative radiographic report should not delay biopsy if a dominant or clinically suspicious mass is present. Up to ten percent of cancers are not identified on mammography. A negative report may reinforce clinical impression. Adenosis and dense breasts may obscure an underlying neoplasm. False positive reports average 6 to 10%. Patient will receive a letter notifying them of these results.
== END ==
PROVIDERS: PCP Family Medicine; Visit Provider Nurse Practitioner Family
DX: Z12.31 Encounter for screening mammogram for malignant neoplasm of breast (principal); R92.8 Other abnormal and inconclusive findings on diagnostic imaging of breast
CPT/HCPCS: 77063; 77067

== ENCOUNTER → 2023-11-17 00:46 | Outpatient (CLI) | payer MEDICARE, SELFPAY ==
--- NOTE | 2023-11-17 14:30 | DI.US_ITS ---
Exam(s) MG MAMMO SCREEN CALL BACK UNI US BREAST RT LIMITED EXAM: MG MAMMO SCREEN CALL BACK UNI CLINICAL HISTORY: ? area of nodularity vs fibroglandular tissue, R breast R92.8. TECHNIQUE: Craniocaudal and mediolateral oblique spot compression digital Mammography views of the r ightbreast with Tomosynthesis and right breast ultrasound. COMPARISON: 2018 through recent exam of 12 November 2023 FINDINGS: Mammography/Tomosynthesis: Masses: None seen. Findings consistent with overlying fibroglandular tissue. Architectural Distortion: None seen. Microcalcifictions: No suspicious pleomorphic-type are seen. Skin Thickening/Nipple Retraction: None. Right breast US: Echotexture: Normal appearance of the glandular tissue. Shadowing: No suspicious foci. Cyst: None. Solid lesions: None seen. Ductal dilation: Minimally dilated in the subareolar region. IMPRESSION: 1. No evidence of malignancy is noted. 2. Unless there is more urgent need, follow-up screening mammography is recommended, as per [employer] guidelines. 3. The findings were discussed with the patient on the date of the examination. BI-RADS Category 3 - 6 month - Probably Benign Finding: Recommend follow-up mammography in 6 months Breast Density - Category B - Scattered areas of fibroglandular density A mammogram that demonstrates density of C or D indicates the patient's breast tissue is dense. Dense breast tissue is very common and is not abnormal, but dense breast tissue can make it harder to find cancer on a mammogram. Also, dense breast tissue may increase their breast cancer risk. This informa tion about the result of the mammogram report was provided to the patient to raise their awareness. U se this report when you speak with the patient about their risks for breast cancer, which includes th eir family history. At that time, you may recommend for more screening tests (Ultrasound or MRI) as t hey might be useful based on their risk. A negative radiographic report should not delay biopsy if a dominant or clinically suspicious mass is present. Up to ten percent of cancers are not identified on mammography. A negative report may reinforce clinical impression. Adenosis and dense breasts may obscure an underlying neoplasm. False positive reports average 6 to 10%. Patient will receive a letter notifying them of these results.
== END ==
PROVIDERS: PCP Family Medicine; Visit Provider Nurse Practitioner Family
DX: R92.8 Other abnormal and inconclusive findings on diagnostic imaging of breast (principal)
CPT/HCPCS: 76642; 77063; 77067

== ENCOUNTER 2023-11-28 14:35 | Emergency (ER) | payer MEDICARE, SELFPAY ==
--- NOTE | 2023-11-28 14:30 | DI.CT_ITS ---
Exam(s) CT CHEST/ABD/PEL W EXAM: CT CHEST/ABD/PEL W CLINICAL HISTORY: Fall from horse. TECHNIQUE: Imaging Protocol: Axial computed tomography images with coronal and sagittal reformatted images were created and reviewed CONTRAST MATERIAL: Intravenous: Omnipaque 350 Contrast volume:100 ml Oral: None COMPARISON: CT CT ABDOMEN PELVIS W from 03/11/2022 FINDINGS: CHEST: LUNGS: No evidence of lung contusion nor pleural effusion or pneumothorax. No infiltrates. No omino us lung nodules. No significant findings in trachea and mainstem bronchi.. MEDIASTINUM: No evidence of sternal fracture or mediastinal hematoma. Visualized thyroid unremarkabl e.No incidental hilar nor mediastinal adenopathy. CARDIAC: Heart size is normal. There is no pericardial effusion.Thoracic aorta is intact. OSSEOUS: No acute fractures identified. No incidental osseous lesions.. ABDOMEN: There is no evidence of ascites, bowel wall nor mesenteric hematoma. No significant trauma findings in the subcutaneous fat LIVER: Intact. No laceration. Benign 3 millimeter hypodensity either small cyst or hemangioma noted in the right lobe, unchanged from 03/11/2022. There are no dilated intrahepatic ducts. GALLBLADDER/BILIARY: No obvious radiopaque gallstones. However, there appears to be some edema of th e gallbladder fundus wall. No overlying abnormality seen in the gallbladder fossa region of the live r. CBD is not dilated. PANCREAS: No evidence of pancreatic mass nor dilatation of the pancreatic duct. SPLEEN: Normal size. No laceration. No lesions. Splenic and portal veins are patent. ADRENALS: There are no significant adrenal masses. KIDNEYS: Both are intact with no lacerations nor evidence of subcapsular hematomas. No cysts nor mas ses. No calculi. No hydronephrosis nor hydroureter.. No findings in the urinary bladder. No evide nce of intraluminal clots in the urinary bladder ABDOMINAL AORTA: Intact-unremarkable. Aortoiliac segments also unremarkable. LYMPH NODES: There is no retroperitoneal nor paraaortic adenopathy. ABDOMINAL WALL: No evidence of significant anterior abdominal wall nor inguinal hernia. Density in t he umbilicus is unchanged from 03/11/2022 and probably an umbilical ornament. GI: No evidence of I ileus nor bowel obstruction. PELVIS: LYMPH NODES: There is no intrapelvic nor inguinal adenopathy. GI: No evidence of appendicitis.No evidence of sigmoid diverticulitis. URINARY BLADDER: No intraluminal clots nor calculi nor masses. Mild distension. REPRODUCTIVE: Uterus is now surgically absent. No abnormal pelvic masses. Ovaries not identified. No free fluid. OSSEOUS: Again noted is fixation hardware in the left hemipelvis from prior healed fracture site. Th ere are no acute fractures evident in the hips and pelvis and sacroiliac joints appear unremarkable. Lumbar vertebral bodies appear intact. No disc space narrowing. No listhesis. No facet malalignme nt. No incidental osseous lesions. IMPRESSION: 1. No acute trauma related findings in the chest, abdomen, and pelvis. 2. Incidentally noted is some edema at the level the fundus of the gallbladder. No obvious radiopaqu e gallstones evident within the nondistended gallbladder lumen and there is no dilatation of the bili sandra tree, both intra and extrahepatic. Recommend correlation with clinical findings and follow-up ga llbladder ultrasound. 3. There has been interval hysterectomy since the prior CT scan of February 2022. The previously pres ent ominous appearing pelvic mass is no longer seen and there is no evidence of recurrence abnormal t issue on today's study nor free fluid. 4. Again noted is fixation hardware in left hemipelvis from prior healed fracture site. There are no acute fractures evident. 5. Mildly distended urinary bladder. No abnormal intra luminal findings in the urinary bladder. Called by myself to ER physician 11/28/2023 at 16:52 p.m. RADIATION DOSE DELIVERED: 1,257.62mGy.cm Total DLP DATA REPOSITORY: All CT scans at this facility are submitted to the National Radiology Data Registry (NRDR) Dose Index Registry (DIR) with the [employer] (ACR). RADIATION OPTIMIZATION: All CT scans at this facility use at least one of these dose optimization te chniques: automated exposure control; mA and/or kV adjustment per patient size (includes targeted exa ms where dose is matched to clinical indication); or iterative reconstruction.
--- NOTE | 2023-11-28 14:30 | DI.CT_ITS ---
Exam(s) CT HEAD CERVICAL SPINE WO EXAM: CT HEAD CERVICAL SPINE WO CLINICAL HISTORY: Fall from horse. TECHNIQUE: Imaging Protocol: Axial computed tomography images with coronal and sagittal reformatted images were created and reviewed COMPARISON: CT HEAD AND CSPINE W/O CONTRAST from 12/13/2017 FINDINGS: BRAIN: There are no skull fractures evident. There is fluid in the sphenoid sinuses but without evidence of an obvious basal skull fracture. No fluid in the maxillary and frontal sinuses nor within the isthm us L air cells and mastoid air cells. There is probably been prior instrumentation of left side mast oid air cells but no acute findings at this level. There is no evidence of intracranial hemorrhage, mass effect, or shift of midline structures. There are no extra-axial fluid collections. The ventricles are not enlarged or shifted and there is no blo od within the ventricular system nor within the basal cisterns. CERVICAL SPINE: There is no evidence of acute fracture nor listhesis. No significant prevertebral soft tissue swelli ng. There is some mild reversal of the normal curvature probably related to muscle spasm. No significant disc space narrowing. Some degenerative changes noted in the facet joints at C2-3 level right-side. There is no significant facet joint malalignment. No significant osseous lesions evident. IMPRESSION: No acute intracranial findings on this noninfused CT scan of the brain. No evidence of cervical spine fracture, malalignment, nor acute compromise of the cervical spinal can al. Some reversal of the normal curvature of the cervical spine indicates probable muscle spasm. Called by myself to ER physician 11/28/2023 at 16:30 p.m. RADIATION DOSE DELIVERED: 1,442mGy.cm Total DLP DATA REPOSITORY: All CT scans at this facility are submitted to the National Radiology Data Registry (NRDR) Dose Index Registry (DIR) with the [employer] (ACR). RADIATION OPTIMIZATION: All CT scans at this facility use at least one of these dose optimization te chniques: automated exposure control; mA and/or kV adjustment per patient size (includes targeted exa ms where dose is matched to clinical indication); or iterative reconstruction.
[2023-11-28 14:38] VITALS: BP 147/84; PULSE 76; RESP 18; TEMP 36.9; O2SAT 99
--- NOTE | 2023-11-28 14:39 | ED.GENADUL_ITS ---
Discharge Plan Discharge Details Chief Complaint: Trauma Primary Care Provider: Grecia Maddox ED Provider: Javier Paz Home Meds and New Rx's Prescriptions: No Action acetaminophen [Acetaminophen Extra Strength] 500 mg tablet 500 - 1,000 mg PO Q8H PRN PRN (Reason: pain) Qty: 90 0RF (DME) Left Ankle foot orthosis See Rx Instructions .Route .MEDSUPPLY Qty: 1 0RF Rx Instructions: Use during weight bearing activities magnesium oxide 500 mg tablet 500 mg PO BID Patient Comments: 02/17/22- pt reports taking mag tabs BID venlafaxine 37.5 mg tablet 37.5 mg PO DAILY lisinopril 10 mg tablet 10 mg PO DAILY bupropion HCl 100 mg tablet sustained-release 12 hr 100 mg PO DAILY Patient Comments: TAKE ONE TABLET BY MOUTH TWICE A DAY HPI General Date/Time Provider Initiated Documentation: 11/28/23 14:38 . HPI Narrative: MDM Primary survey intact. Reassuring shock index. Secondary survey patient is made thoracic spinal tenderness. No step-offs. No deformities. Patient also has right shoulder pain but my suspicion is low for dislocation as patient is able to touch her right hand to her contralateral left shoulder. Patient also has pain to her left ankle no obvious deformities. Will obtain x-ray ankle left and x-ray shoulder right. Negative extended FAST exam however based on mechanism with back pain will obtain CT head and cervical spine chest abdomen pelvis with thoracic and lumbar recons. No anticoagulation which would require reversal. 4:30 PM Reassuring basic metabolic panel with no KARAN. CBC lacks anemia thrombocytopenia and leukocytosis. No obvious osseous abnormalities on right shoulder and left ankle. Negative ethanol. 6:15 PM I signed patient out to Dr. Steward after I was in touch with with Dr. Chen from the orthopedic team who recommended CT of the patient's right upper extremity and left lower extremity. I met with the patient and explained this plan of care. I gave her IV ketorolac oral acetaminophen and Lidoderm patch. HPI This is an ambidextrous 58-year-old female arrived to the emergency department via private vehicle after being bucked off of a horse approximately 1 hour ago. She was not wearing a helmet. She did not strike her head nor lose consciousness. She reportedly lost control and landed on her right side. She having pain in the right back. She also has pain in her left ankle. She has been ambulatory since her injury. No other complaints. Exam General: Uncomfortable-appearing in no acute distress speaking in complete sentences. Head: Normocephalic, atraumatic. Eye:[Pupils equal, round reactive to light.] Extraocular eye movements intact. No conjunctival injection. No scleral icterus. Ear, nose, mouth, throat: Grossly normal inspection. Normal voice, handling secretions normally. No hemotympanum bilaterally. No septal hematoma. Neck: Trachea midline. No midline cervical spinal tenderness. Cardiovascular: Well-perfused distal extremities. Regular rate and rhythm Respiratory: Nonlabored respiration. Clear lungs bilaterally Gastrointestinal: Nondistended abdomen. Soft nontender Musculoskeletal: Right proximal humerus with tenderness. No obvious shoulder deformity. No ecchymosis no lacerations right shoulder. Patient is able to touch her right hand to her contralateral left shoulder. No elbow nor forearm nor hand tenderness in the right. Left upper extremity nontender no deformities. Pelvis stable. Right lower extremity nontender no deformities. Left lower extremity with tenderness to left ankle. No obvious deformities. No ecchymoses. No lacerations. Skin: Normal for age and race, grossly normal temperature and turgor. No acute rash. Neurologic: Alert and appropriate, no apparent acute deficits. Psychiatric: Mood and manner are appropriate. Grooming and personal hygiene are appropriate. Related Data Home Medications Medication Instructions Recorded Confirmed Left Ankle foot orthosis #1 ea 11/29/19 11/28/23 acetaminophen 500 mg tablet 500 - 1,000 mg (1 - 2 x 500 mg) PO 11/29/19 11/28/23 (Acetaminophen Extra Strength) Q8H PRN PRN pain #90 tabs lisinopril 10 mg tablet 10 mg PO DAILY 04/03/20 11/28/23 venlafaxine 37.5 mg tablet 37.5 mg PO DAILY 04/03/20 11/28/23 magnesium oxide 500 mg PO BID 02/17/22 11/28/23 bupropion HCl 100 mg tablet,12 hr 100 mg PO DAILY 11/28/23 11/28/23 sustained-release Previous Rx's Medication Instructions Recorded Left Ankle foot orthosis #1 ea 11/29/19 acetaminophen 500 mg tablet 500 - 1,000 mg (1 - 2 x 500 mg) PO 11/29/19 (Acetaminophen Extra Strength) Q8H PRN PRN pain #90 tabs Allergies Allergy/AdvReac Type Severity Reaction Status Date / Time gabapentin AdvReac Intermediate very ill, Verified 11/28/23 15:00 hives General SHANNEN: 2 Medical Decision Making Quality:SDOH Health Related Social Needs: No Data to Display PFSH All Active Problems (Updated 03/11/22 @ 09:45 by Natalee Graves MD) Pelvic mass in female (Acute) Overactive bladder (Acute) Pelvic pain (Acute) Left foot drop (Acute) 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) Neurapraxia of left upper extremity (Acute) Neurapraxia of left lower extremity (Acute) Shortness of breath (Acute) Trigger thumb, right thumb (Acute 06/15/16) Right carpal tunnel syndrome (Acute 11/04/16) Closed posterior wall fracture of left acetabulum (Acute ~12/2017) Fracture of right distal radius (Acute ~12/2017) Closed fracture of right tibial plateau (Acute ~12/2017) Closed fracture of left tibial plateau (Acute 06/04/19) Closed fracture of left distal radius (Acute 06/05/19) Medical History (Updated 03/11/22 @ 09:45 by Natalee Graves MD) Depression Migraine headache with aura BCC (basal cell carcinoma of skin) Osteopenia Hx of pulmonary embolus Hx of fracture of lower leg R Tibia and Fibia w/implant; November 2017 L tibial plateau; May 2019 Hx of fracture of wrist R wrist w/implant November 2017; Left wrist with implant May 2019 Hx of fracture L acetabulum w/implant, November 2017 Endometriosis Surgical History S/P trigger finger release right thumb 2010 S/P orthopedic surgery, follow-up exam multiple ORIFs as above in PMH History of carpal tunnel release L 2010, R 2016 Family History Mother Pancreatic cancer Brother Diabetes Hypertension Father Kidney failure Social History (Updated 04/03/20 @ 09:16 by Tanisha Calderon LPN) Smoking/Tobacco Use Status: Former Tobacco Use Smoking risk assessment performed?: Yes Alcohol Intake: current Alcohol Intake frequency: a few times a month Alcohol type: wine Drug use: Never Substance use type: does not use Housing: house Number of Children: 0 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 [employer] Current gender identity: female What is your relationship status?: Panel score (0-1 are the most socially isolated patients): 0 Seatbelt use: always Do you feel safe at home: Yes Do you feel safe in your relationship?: Yes Female Reproductive History Menstrual Age of Menarche: 13 History History 2 Para 0 Hx # Term Pregnancies Multiple births Hx # Pregnancies Ectopic pregnancies AB induced Hx Number of Living Children 0 AB spontaneous 2 POCUS Exam (ED) Efast Exam DATE OF EXAM: 11/28/23 TIME OF EXAM: 15:00 PROVIDER THAT PEFORMED THE STUDY: Javier Paz IS THIS A REPEAT EXAM DURING THIS ENCOUNTER: no REASON FOR EXAM: Other (Trauma) indication: Trauma VISUALIZED STRUCTURES: Hepatorneal space, Pelvis, Pericardium, Perisplenic space, Pleural space/left, Pleural space/right and Other structure: Bilateral lungs PERTINENT FINDINGS/IMPRESSION: no apparent free fluid, no pericardial effusion, no pleural effusion on the left side, no pleural effusion on the right side, no pneumothorax on left side and no pneumothorax on right side INCIDENTAL FINDINGS: Negative eFAST exam Limited Transthoracic Echo: Exam complete Limited Abdominal Exam: Exam complete Limited Retroperitoneal Exam: Exam complete
--- NOTE | 2023-11-28 14:44 | DI.CT_ITS ---
Exam(s) CT THORACIC LUMBAR SPINE REC EXAM: CT THORACIC LUMBAR SPINE REC CLINICAL HISTORY: Midthoracic pain TECHNIQUE: COMPARISON: CT CT CHEST/ABD/PEL W from 11/28/2023 FINDINGS: THORACIC SPINAL COLUMN: No evidence of fracture or listhesis nor prominent disc space narrowing. No facet malalignment. No acute compromise of the spinal canal. LUMBOSACRAL SPINAL COLUMN: No evidence of fracture, listhesis, nor pars defects. No disc space narrowing. No facet malalignmen t. Visualized sacroiliac joints appear unremarkable. IMPRESSION: No evidence of fractures in the thoracic and lumbosacral spinal columns. No canal compromise
[2023-11-28] MEDS: fentaNYL 100 MCG/2 ML VIAL 50 MCG IVP (14:56)
[2023-11-28] MEDS: Normal Saline 500 ML IV (14:58)
[2023-11-28 15:07] LABS: Abs Immature Grans 0.02 10^3/uL (0.0-0.06); Absolute Basophil Count 0.04 10^3/uL (0.0-0.2); Absolute Eosinophil Count 0.07 10^3/uL (0.0-0.7); Absolute Lymphocyte Count 1.77 10^3/uL (1.2-3.4); Absolute Neutrophil Count 5.19 10^3/uL (1.2-6.7); Basophils % 0.5 %; Eosinophils % 0.9 %; HCT 41.6 % (36.0-46.0); HGB 14.5 g/dL (11.2-15.7); Immature Grans % 0.3 %; MCH 32.6 pg (27.0-33.0); MCHC 34.9 % (32.0-36.0); MCV 94 fL (80-95); MPV 8.5 fL (8.0-11.0); Monocytes % 7.8 %; Neutrophils % 67.5 %; Platelet Count 247 10^3/uL (130-400); RBC 4.45 10^6/uL (3.93-5.22); RDW 11.5 % (11.7-14.6); RDW-SD 39.8 fL; WBC 7.69 10^3/uL (4.4-10.8)
[2023-11-28 15:16] LABS: BUN 10 mg/dL (7-18); Calcium 9.4 mg/dL (8.5-10.1); Chloride 105 mmol/L (98-107); ETHANOL BLOOD < 3.0 mg/dL (<10); Glucose 95 mg/dL (74-106); Potassium 3.9 mmol/L (3.5-5.1); Sodium 141 mmol/L (136-145)
[2023-11-28] MEDS: Normal Saline - Diluent 50 ML VIAL IJ (16:06)
[2023-11-28] MEDS: Omnipaque 350 MG/ML 100 ML BTL IJ (16:06)
[2023-11-28] MEDS: HYDROmorphone 2 MG/ML SYR 0.5 MG IVP (16:24)
--- NOTE | 2023-11-28 16:44 | DI.RAD_ITS ---
Exam(s) XR SHOULDER RT COMPLETE 2+V EXAM: XR SHOULDER RT COMPLETE 2+V CLINICAL HISTORY: Shoulder pain. TECHNIQUE: 2D digital imaging was performed. COMPARISON: CT CT CHEST/ABD/PEL W from 11/28/2023 FINDINGS: Five views. No evidence of acute fracture or dislocation of glenohumeral joint nor dislocation of the AC joint. However, there is irregularity at the level the a chromium which is possibly fracture, age indetermin ate.. Coracoid process is intact. Clavicle intact. IMPRESSION: Irregularity of the chromium of the scapula, possibly fracture (which may not be acute). No dislocat ion of the AC joint. Correlation with site of tenderness is recommended and if clinically indicated follow-up CT scan of the shoulder can be performed DATA REPOSITORY: RADIATION DOSE DELIVERED:
--- NOTE | 2023-11-28 16:44 | DI.RAD_ITS ---
Exam(s) XR ANKLE LT COMPLETE EXAM: XR ANKLE LT COMPLETE CLINICAL HISTORY: Left ankle pain fall. TECHNIQUE: 2D digital imaging was performed. COMPARISON: No exams were available for comparison FINDINGS: 3 views No evidence of acute fracture nor widening of the ankle mortise. Talar dome unremarkable. Lucency i n lateral malleolus noted which is probably a benign cyst. Tiny inferior calcaneal spur noted. Enth esophyte noted on the posterior aspect of the calcaneus-Achilles insertion site. On the lateral view there is a subtle irregularity at the calcaneocuboid joint level. Cannot exclude subtle fracture of the anterior calcaneus at this level. IMPRESSION: Possible subtle fracture anterior aspect of the calcaneus. Correlation with site of tenderness is re commended. If clinically indicated can be resolved with CT scan. DATA REPOSITORY: RADIATION DOSE DELIVERED:
[2023-11-28] MEDS: Ketorolac 15 MG/ML VIAL IVP (17:48)
--- NOTE | 2023-11-28 18:00 | DI.CT_ITS ---
Exam(s) CT LOWER EXTREMITY LT WO EXAM: CT LOWER EXTREMITY LT WO CLINICAL HISTORY: Left distal tibial pain? Calcaneal fracture. TECHNIQUE: Imaging Protocol: Axial computed tomography images with coronal and sagittal reformatted images were created and reviewed. CONTRAST MATERIAL: Noncontrast COMPARISON: CT CT LOWER EXTREMITY LT WO from 06/04/2019 CR XR ANKLE LT COMPLETE from 11/28/2023 FINDINGS: Bones: There is no evidence of fracture or dislocation. Question fracture fragments on plain films c orresponds to ossicles lateral to the distal calcaneus. No cellulitic or osteomyelitic changes are identified. No lytic or sclerotic lesions are identified. Enthesophyte at the Achilles insertion. Small plantar calcaneal spur. Joints: There is no significant joint space narrowing. Minimal Soft Tissues: Some soft tissue swelling and heel pad. IMPRESSION: No evidence of fracture. RADIATION DOSE DELIVERED: 300.32mGy.cm Total DLP DATA REPOSITORY: All CT scans at this facility are submitted to the National Radiology Data Registry (NRDR) Dose Index Registry (DIR) with the [employer] ([employer]). RADIATION OPTIMIZATION: All CT scans at this facility use at least one of these dose optimization te chniques: automated exposure control; mA and/or kV adjustment per patient size (includes targeted exa ms where dose is matched to clinical indication); or iterative reconstruction.
--- NOTE | 2023-11-28 18:00 | DI.CT_ITS ---
Exam(s) CT UPPER EXTREMITY RT WO EXAM: CT UPPER EXTREMITY RT WO CLINICAL HISTORY: Right acromial pain TECHNIQUE: Imaging Protocol: Axial computed tomography images with coronal and sagittal reformatted images were created and reviewed. CONTRAST MATERIAL: Noncontrast- COMPARISON: CR XR SHOULDER RT COMPLETE 2+V from 11/28/2023 FINDINGS: Bones: There is no evidence of fracture or dislocation. Bony alignment is satisfactory. No cellulitic or osteomyelitic changes are identified. There is spurring at the tip the acromion. Mild degenerative changes of the AC joint. Mild degenera tive changes of the glenohumeral joint. Glenohumeral joint effusion. Fluid in subcoracoid bursa. M ild spurring at the greater tuberosity. No lytic or sclerotic lesions are identified. Soft Tissues: Normal. IMPRESSION: No evidence of fracture. Spurring at the tip of the acromion. RADIATION DOSE DELIVERED: 728.5mGy.cm Total DLP DATA REPOSITORY: All CT scans at this facility are submitted to the National Radiology Data Registry (NRDR) Dose Index Registry (DIR) with the [employer] (ACR). RADIATION OPTIMIZATION: All CT scans at this facility use at least one of these dose optimization te chniques: automated exposure control; mA and/or kV adjustment per patient size (includes targeted exa ms where dose is matched to clinical indication); or iterative reconstruction.
--- NOTE | 2023-11-28 18:47 | W.EDPROG ---
Date of service: 11/28/23 Time of Service: 18:47 Medical Decision Making Care assumed from off going provider. Patient is a 58-year-old female that fell off of a horse. Disposition is pending CT imaging of her shoulder and calcaneus. There was some questionable abnormality on the x-ray so CT imaging was obtained to further evaluate for fracture. The imaging was reviewed and is unremarkable for any fracture. The patient pain was well-controlled. Discharged with instructions to take Motrin and Tylenol and a prescription for Robaxin was sent to her pharmacy. Return precautions advised. Recommend close follow-up with PCP. Quality:[facility] Health Related Social Needs: No Data to Display Sign Out Sign Out Data: Sign Out Comment: Please follow-up with left lower extremity CT with? Calcaneal fracture. Patient is tender more proximally over her distal tibia but does have history of peripheral neuropathy. Please follow-up right upper extremity CT with? Acromial fracture. Patient does have acromial tenderness. Orthopedics aware of imaging. In brief 58-year-old female status post fall off of horse. Primary survey intact. Reassuring shock index. Last updated by Javier Paz MD at 11/28/23 18:19 Discharge Plan Disposition Patient Disposition: Home Discharge Details Clinical Impression: Fall from horse Primary Care Provider: Grecia Maddox ED Provider: Philomena Steward Home Meds and New Rx's Prescriptions: New methocarbamol 750 mg tablet 750 mg PO TID PRN (Reason: SORENESS) Qty: 20 0RF No Action acetaminophen [Acetaminophen Extra Strength] 500 mg tablet 500 - 1,000 mg PO Q8H PRN PRN (Reason: pain) Qty: 90 0RF (DME) Left Ankle foot orthosis See Rx Instructions .Route .MEDSUPPLY Qty: 1 0RF Rx Instructions: Use during weight bearing activities magnesium oxide 500 mg tablet 500 mg PO BID Patient Comments: 02/17/22- pt reports taking mag tabs BID venlafaxine 37.5 mg tablet 37.5 mg PO DAILY lisinopril 10 mg tablet 10 mg PO DAILY bupropion HCl 100 mg tablet sustained-release 12 hr 100 mg PO DAILY Patient Comments: TAKE ONE TABLET BY MOUTH TWICE A DAY Discharge Instructions Additional Instructions: YOUR IMAGING DOES NOT REVEAL ANY FRACTURES YOU WILL LIKELY BE SORE FOR A FEW DAYS: TAKE MOTRIN, TYLENOL AND MUSCLE MEDICATION ( PRESCRIBED) MAKE SURE TO DRINK LOTS OF WATER AND DO GENTLE STRETCHES
[2023-11-28] MEDS: Lidocaine 5% Patch 1 PATCH TP (18:50)
[2023-11-28] MEDS: Acetaminophen 500 MG TAB 1000 MG PO (18:50)
--- NOTE | 2023-11-28 19:02 | DI.VRAD_ITS ---
PROCEDURE INFORMATION: Exam: CT Right Upper Extremity Without Contrast, Shoulder Exam date and time: 11/28/2023 6:35 PM Age: 58 years old Clinical indication: Injury or trauma; Blunt trauma (contusions or hematomas); Shoulder; Injury date: 11/28/23; Injury details: Right acromial pain after fall from horse TECHNIQUE: Imaging protocol: Computed tomography of the right upper extremity without contrast. Exam focused on the shoulder. Total images: 1280 Radiation optimization: All CT scans at this facility use at least one of these dose optimization techniques: automated exposure control; mA and/or kV adjustment per patient size (includes targeted exams where dose is matched to clinical indication); or iterative reconstruction. COMPARISON: CR XR SHOULDER RT COMPLETE 2+V 11/28/2023 4:03 PM FINDINGS: Bones/joints: Small glenohumeral joint effusion with fluid collecting in the axillary pouch. No fracture or dislocation. Soft tissues: No intramuscular hematoma. Other findings: No AC separation. IMPRESSION: No fracture. Dictated and Authenticated by: Alex Olivera MD. Ordering:GIANNI Herrera MD
--- NOTE | 2023-11-28 19:10 | DI.VRAD_ITS ---
PROCEDURE INFORMATION: Exam: CT Left Lower Extremity With Contrast; Lower Leg Exam date and time: 11/28/2023 6:23 PM Age: 58 years old Clinical indication: Injury or trauma; Blunt trauma; Lower leg and ankle and heel; Injury date: 11/28/23; Injury details: Fall from horse; Patient HX: Left distal tibial pain? Calcaneal fracture TECHNIQUE: Imaging protocol: CT of the left lower extremity with intravenous contrast was performed. Exam focused on the lower leg. Total images: 1366 Radiation optimization: All CT scans at this facility use at least one of these dose optimization techniques: automated exposure control; mA and/or kV adjustment per patient size (includes targeted exams where dose is matched to clinical indication); or iterative reconstruction. COMPARISON: CT LOWER EXTREMITY LT WO 06/04/2019 7:28 PM FINDINGS: Bones/joints: No fracture. No dislocation. Ankle mortise is anatomic. Heel spurs. Soft tissues: Mild soft tissue swelling. IMPRESSION: No occult fracture. Dictated and Authenticated by: Alex Olivera MD. Ordering:GIANNI Herrera MD
[2023-11-28 19:30] VITALS: BP 129/79; PULSE 66; RESP 18; O2SAT 96
[2023-11-28 19:34] VITALS: BP 129/79; PULSE 66; RESP 18; O2SAT 96
== END 2023-11-28 19:34 | disposition home or self-care (01) ==
PROVIDERS: Emergency Medicine; Emergency Provider Emergency Medicine; PCP Family Medicine
DX: M25.511 Pain in right shoulder (principal); M25.572 Pain in left ankle and joints of left foot; M54.9 Dorsalgia, unspecified; V80.010A Animal-rider injured by fall from or being thrown from horse in noncollision accident, initial encounter
CPT/HCPCS: 00123; 74177; 76604; 76705; 76857; 80048; 86850; 86900; 86901; 96365; 96375; 99285; 70450; 71260; 72125; 73030; 73200; 73610; 73700; 80320; 85025; 99283; J1170; J1885; J3010; J3490

== ENCOUNTER → 2023-12-15 01:04 | Outpatient (CLI) | payer MEDICARE, SELFPAY ==
--- NOTE | 2023-12-15 | DI.US_ITS ---
Exam(s) US ABDOMEN LIMITED EXAM: US ABDOMEN LIMITED CLINICAL HISTORY: CT BILIARY TRACT/LIVER, ABNL FINDINGS, R93.2 EDEMA OF TECHNIQUE: Ultrasound abdomen performed using standard protocol. COMPARISON: No exams were available for comparison FINDINGS: PANCREAS: Normal where visualized. LIVER: Normal. Hepatopetal flow in the Portal Vein. The liver measures in 15.6 cm length. No evidence of a hepatic mass. GALLBLADDER: No evidence of cholelithiasis. No evidence of wall thickening. No pericholecystic fluid identified. BILIARY SYSTEM: Common bile duct measures < 7 mm. No intrahepatic biliary ductal dilation. PINEDA'S SIGN: Negative. RIGHT KIDNEY: Kidney is normal in size. No evidence of renal calculi. No evidence of hydronephrosis. No renal mass or cyst identified. ASCITES: None seen. IMPRESSION: Normal sonographic appearance of the upper abdomen. DATA REPOSITORY:
--- OUTSIDE RECORDS SUMMARY | 2023-12-15 01:13 | XMS_ITS | Encounter Summary ---
Author Organization [facility] Address [address] [place] [address] Care Team Providers Care Data Operations Director Name Role Phone Keiko Reddy MD Primary Care Provider Encounter Details Date Type Department Care Team (Late st Contact Info) Description 11/05/2022 Lab Requisition [facility] Pathology & Laboratory Medicine - [facility] [address] [place] [address] Outr Resulting Lab, Provider Social History Tobacco Use Types Packs/Day Years Used Date Smoking Tobacco: Former Smokeless Tobacco: Never Alcohol Use Standard Drinks/Week Comments No 0 (1 standard drink = 0.6 oz pur e alcohol) Interpersonal Safety Answer Date Record ed Physically Hurt Never 12/24/2019 Verbally Threaten Not on file 12/24/2019 Sex and Gender Information Value Date Recorded Sex Assigned at Not on file Gender Identity Not on file Sexual Orientation Not on file documented as of this encounter Plan of Treatment Not on file documented as of this encounter Procedures Procedure Name Priority Date/Time Associated Diagnosis Comments CA 19-9 (NEW SIEMENS METHOD IN USE 05/28/15) Routine 11/05/2022 13:58 EDT documented in this encounter Results * CA 19-9 (NEW SIEMENS METHOD IN USE 05/28/15) (11/05/2022 13:58 EDT) CA 19-9 13 <35 U/mL 11/06/2022 11:48 EDT [facility] Comment: NOTE: Serum CA 19-9 concentration should not be interpreted as absolute evidence for the presence or absence of malignant disease. Assayed on Siemens ADVIA Centaur XPT using chemiluminescent technology. ??Values obtained by using different assay methods cannot be used interchangeably. Blood VENOUS BLOOD / Unknown 11/05/2022 13:58 EDT 11/05/2022 21:18 EDT Provider Outr Resulting Lab CHEMISTRY & BLOOD GAS ORDERABLES [facility] [address] [place] [address] documented in this encounter Visit Diagnoses Not on filedocumented in this encounter Care Teams Data Operations Director Relationship Specialty Start Date End Date Keiko Reddy MD [address] [phone] PCP - General 01/05/11 documented as of this encounter
--- OUTSIDE RECORDS SUMMARY | 2023-12-15 01:13 | XMS_ITS | Encounter Summary ---
Author Organization [facility] Address [address] [place] [address] Care Team Providers Care Physical Education Aide Name Role Phone Keiko Reddy MD Primary Care Provider [phone] Encounter Details Date Type Department Care Team (Latest Contact Info) Description 01/08/2014 8:59 EDT - 01/08/2014 23:[address] [facility] [address] [place] [address] Unknown, Provider, Discharge Disposition: Home or Self Care Social History Tobacco Use Types Packs/Day Years Used Date Smoking Tobacco: Former Smokeless Tobacco: Never Alcohol Use Standard Drinks/Week Comments No 0 (1 standard drink = 0.6 oz pur e alcohol) Sex and Gender Information Value Date Recorded Sex Assigned at Not on file Gender Identity Not on file Sexual Orientation Not on file documented as of this encounter Medications at Time of Discharge Medication Sig Dispensed Refills Start Date End Date amitriptyline (ELAVIL) 10 mg tablet Take 10 mg by mouth 3 times daily. buPROPion (WELLBUTRIN SR) 150 mg SR tablet Take 150 mg by mouth 2 times daily. citalopram (CELEXA) 20 mg tablet Take 20 mg by mouth daily. hydrocodone-acetaminophen (LORTAB;VICODIN) 5-500 mg tablet Take 1-2 Tabs by mouth every 6 hours as needed for Pain. 30 Tab 0 11/18/2011 ibuprofen (MOTRIN) 200 mg tablet Take 200 mg by mouth every 6 hours. LORazepam (ATIVAN) 0.5 mg tablet Take 1 mg by mouth 3 times daily. naproxen sodium (ALEVE) 220 mg capsule Take by mouth. documented as of this encounter Discharge Disposition Disposition Code Departure Means Destination Home or Self Prison documented in this encounter Plan of Treatment Not on file documented as of this encounter Visit Diagnoses Not on filedocumented in this encounter Care Teams Physical Education Aide Relationship Specialty Start Date End Date Keiko Reddy MD [address] [phone] PCP - General 01/05/11 documented as of this encounter
--- OUTSIDE RECORDS SUMMARY | 2023-12-15 01:13 | XMS_ITS | Encounter Summary ---
Author Organization [facility] Address [address] [place] [address] Care Team Providers Care Layer Out Plate Glass Name Role Phone Keiko Reddy MD Primary Care Provider [phone] Encounter Details Date Type Department Care Team (Late st Contact Info) Description 03/22/2012 Results Only [facility] Laboratory Services - [facility] [address] [place] [address] Keiko Reddy MD 8 [facility] [address] [place] [phone] Social History Tobacco Use Types Packs/Day Years Used Date Smoking Tobacco: Former Alcohol Use Standard Drinks/Week Comments Yes 0 (1 standard drink = 0.6 oz pur e alcohol) Sex and Gender Information Value Date Recorded Sex Assigned at Not on file Gender Identity Not on file Sexual Orientation Not on file documented as of this encounter Plan of Treatment Not on file documented as of this encounter Procedures Procedure Name Priority Date/Time Associated Diagnosis Comments HEPATITIS C AB W REFLEX TO HCV RNA BY PCR Routine 03/22/2012 13:13 EDT HEPATITIS A TOTAL ANTIBODY W REFLEX Routine 03/22/2012 13:13 EDT HEPATITIS B PROFILE Routine 03/22/2012 1 3:13 EDT ANTI NUCLEAR AB (ADA), IFA Routine 03/22/2012 13:13 EDT GGT Routine 03/22/2012 13:13 EDT HEPATIC FUNCTION PANEL (ALB,ALK PHOS,ALT,AST,DBIL,T OT OC,TOT PROT) Routine 03/22/2012 13:13 EDT documented in this encounter Results * LIVER FUNCTION TESTS (03/22/2012 13:13 EDT) Albumin 4.2 3.4 - 4.9 g/dl [facility] Total Protein 6.8 6.5 - 8.3 g/dl [facility] Total Alkaline Phosphatase 78 38 - 126 U/L [facility] ALT 45 9 - 52 U/L [facility] AST 31 15 - 46 U/L [facility] Unconjugated Bilirubin 0.2 0.1 - 1.1 mg/dl [facility] Conjugated Bilirubin 0.0 0.0 - 0.3 mg/dl [facility] Bilirubin, Total 0.6 0.2 - 1.3 mg/dl [facility] 03/22/2012 13:1 3 EDT 03/22/2012 19:04 EDT Keiko Reddy MD CHEMISTRY & BLOOD GA S ORDERABLES [facility] [address] [place] [address] * HEPATITIS B PROFILE (03/22/2012 13:13 EDT) Hepatitis B Surface Ag Negative [facility] Comment:Reference Range: Neg ative Hepatitis B Surface Ab Positive [facility] Comment: Reference Range: Unvaccinated: ??Negative Vaccinated: ??Positive HBs Antibody, Quant 12.2 mIU/mL [facility] Comment: Patient is presumed to be immune to infection with HBV. Reference Range: Positive: >=12.0 mIU/mL Indeterminate: >=5.0 to <12.0 mIU/mL Negative: <5.0 mIU/mL Hep B Core Ab Negative [facility] Comment: Reference Range: ??Negative Interpretation depends on clinical setting. 03/22/2012 13:1 3 EDT 03/22/2012 19:04 EDT Keiko Reddy MD CHEMISTRY & BLOOD GA S ORDERABLES Performing Organization Address [facility] de Phone Number [facility] [address] [place] [address] * HEPATITIS C ANTIBODY (03/22/2012 13:13 EDT) Hepatitis C Ab Negative [facility] Comment:Reference Range: Neg ative 03/22/2012 13:1 3 EDT 03/22/2012 19:04 EDT Keiko Reddy MD CHEMISTRY & BLOOD GA S ORDERABLES Performing Organization Address [facility] Phone Number [facility] [address] [place] [address] * HEPATITIS A TOTAL ANTIBODY (03/22/2012 13:13 EDT) Hep A Antibody Negative [facility] Comment:Reference Range: Neg ative 03/22/2012 13:1 3 EDT 03/22/2012 19:04 EDT Keiko Reddy MD CHEMISTRY & BLOOD GA S ORDERABLES Performing Organization Address [facility] Phone Number [facility] [address] [place] [address] * (ABNORMAL) GGT (03/22/2012 13:13 EDT) GGT 88(H) 12 - 43 U/L [facility] 03/22/2012 13:1 3 EDT 03/22/2012 19:04 EDT Keiko Reddy MD CHEMISTRY & BLOOD GA S ORDERABLES Performing Organization Address [facility] Phone Number [facility] [address] [place] [address] * ANTI NUCLEAR ANTIBODY (03/22/2012 13:13 EDT) Anti Nuclear Ab <40 0 - 40 Dils [facility] 03/22/2012 13:1 3 EDT 03/22/2012 19:04 EDT Keiko Reddy MD IMMUNOLOGY AND LISANDRA LUNA ORDERABLES [facility] [address] [place] [address] documented in this encounter Visit Diagnoses Not on filedocumented in this encounter Care Teams Layer Out Plate Glass Relationship Specialty Start Date End Date Keiko Reddy MD [address] [phone] PCP - General 01/05/11 documented as of this encounter
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
--- OUTSIDE RECORDS SUMMARY | 2023-12-15 01:13 | XMS_ITS | Encounter Summary ---
Author Organization [facility] Address [address] [place] [address] Care Team Providers Care Drafting Instructor Name Role Phone Keiko Reddy MD Primary Care Provider [phone] Reason for Visit * Reason Onset Date Comments Requesting Sooner Appointment 11/02/2013 Encounter Details Date Type Department Care Team (Late st Contact Info) Description 11/02/2013 Telephone [facility] Dermatology 3rd Floor [facility] [address] [place], [place] [id number] Mulugeta Garcia MD Requesting Sooner Appointment Social History Tobacco Use Types Packs/Day Years Used Date Smoking Tobacco: Former Alcohol Use Standard Drinks/Week Comments Yes 0 (1 standard drink = 0.6 oz pur e alcohol) Sex and Gender Information Value Date Recorded Sex Assigned at Not on file Gender Identity Not on file Sexual Orientation Not on file documented as of this encounter Miscellaneous Notes * Telephone Encounter - Daphne Gonzalez RN - 11/06/2013 1142 EDT Referral received from [facility]. Patient is being referred by Dr. Keiko Reddy for lesion on shoulder needs eval. Attempted to call patient, Mailbox full, can not accept messages. Spoke to Natty at [facility]. No other numbers available for patient. Spoke to Yadira in referrals, no notes for this patient. They will FAX a problem list. Patient scheduled for NPV 11/28/13 at [address] Montelongo, WPJulienne May will contact patient with appointment. Appointment confirmation letter sent. DAPHNE GONZALEZ RN 11/06/2013 12:06 * Telephone Encounter - Juana Montoya - 11/03/2013 0800 EDT Notes received. * Telephone Encounter - Rafaela Cota - 11/02/2013 1558 EDT Lesion on shoulder. Would like patient seen within 3 weeks. Faxing notes. Please call to schedule documented in this encounter Plan of Treatment Not on file documented as of this encounter Visit Diagnoses Not on filedocumented in this encounter Care Teams Drafting Instructor Relationship Specialty Start Date End Date Keiko Reddy MD [address] [phone] PCP - General 01/05/11 documented as of this encounter
--- OUTSIDE RECORDS SUMMARY | 2023-12-15 01:13 | XMS_ITS | Encounter Summary ---
Author Organization [facility] Address [address] [place] [address] Care Team Providers Care Teamcenter Solution Architect Name Role Phone Keiko Reddy MD Primary Care Provider [phone] Encounter Details Date Type Department Care Team (Latest Contact Info) Description 03/31/2017 14:24 EST - 03/31/2017 14:25 [facility] Hospital Encounter [address] [address] Juan Tabares FNP 8 [facility] [address] [place] [address] Discharge Disposition: Home or Self Care Social [...] on file documented as of this encounter Discharge Diagnoses Diagnosis Z12.4 Encounter for screening for malignant neoplasm of cervix-Z12.4[ICD-10-CM] documented in this encounter Medications at Time of Discharge [...] Code Departure Means Destination Home or Self Care documented in this encounter Plan of Treatment Not on file documented as of this encounter Visit Diagnoses Not on filedocumented in this encounter Care Teams Teamcenter Solution Architect Relationship Specialty Start Date End Date Keiko Reddy MD [address] [phone] PCP - General 01/05/11 documented as of this encounter
--- OUTSIDE RECORDS SUMMARY | 2023-12-15 01:13 | XMS_ITS | Encounter Summary ---
Author Organization [facility] Address [address] [place] [address] Care Team Providers Care Carpet Sewing Machine Operator Name Role Phone Keiko Reddy MD Primary Care Provider [phone] Encounter Details Date Type Department Care Team (Latest Contact Info) Description 04/25/2012 8:47 EST - 04/25/2012 19:49 [facility] Hospital Encounter [facility] Perioperative Services - [address] [address] Fernando Stinson MD [address] [place] [address] Discharge Disposition: Home or Self Care Social [...] Sig Dispensed Refills Start Date End Date citalopram (CELEXA) 20 mg tablet Take 20 mg by mouth daily. hydrocodone-acetaminophen (LORTAB;VICODIN) 5-500 mg tablet Take 1-2 Tabs by mouth every 6 hours as needed for Pain. 30 Tab 0 11/18/2011 ibuprofen (MOTRIN) 200 mg tablet Take 200 mg by mouth every 6 hours. documented as of this encounter Discharge Disposition Disposition Code Departure Means Destination Home or Self Care documented in this encounter OR Notes * OR Surgeon - Fernando Stinson MD - 04/25/2012 1139 EST OPERATIVE REPORT SERVICE DATE: 04/25/2012 SURGEON: Fernando Stinson MD CLINICAL CYTOPATHOLOGIST: None. PREOPERATIVE DIAGNOSIS: Left trigger thumb. POSTOPERATIVE DIAGNOSIS: Left trigger thumb. PROCEDURE: Left trigger thumb release. ANESTHESIA: Local. INDICATIONS: Ms Pickard is a 46-year-old right-hand dominant woman who has had a left trigger thumb that has progressed to the point where it is in a fixed position. We have tried conservative management for this with no resolution of her symptoms. The risks and benefits of operative intervention were discussed with her and she wished to proceed. NARRATIVE: The patient was seen preoperatively and her left thumb was identified as the operative site. She was brought back to the operating room and placed supine on the OR table. Local anesthesia was placed using a mixture of 0.5% Marcaine and 1% lidocaine. Approximately 5 mL were used around the region of our incision. Her left hand and arm were prepped and draped in the standard sterile manner. An Esmarch bandage was used to exsanguinate the limb and was left up at the forearm to act as a tourniquet. A 1 cm oblique incision was made directly over the A1 nhua. Blunt dissection was carried out downto the A1 nuha, which was easily visualized. It was seen to be thickened with a thickness of approximately 3 mm at its thickest point. The A1 nuha was divided in a longitudinal direction. The FPLtendon was retracted out of the wound and was seen to be intact with no lesions present. It was allowed to retract back into the wound. A small portion of the A1 nuha was actually excised. The wound was irrigated using a mixture of 0.5% Marcaine and 1% lidocaine. The wound was closed using 5-0 nylon in an interrupted horizontal mattress stitch. All counts were correct at the end of the case. I was present and scrubbed for the entirety of the case. DRAINS, PACKS, FOREIGN MATERIALS: None. COMPLICATIONS: None. ESTIMATED BLOOD LOSS: Minimal. TOURNIQUET TIME: 10 minutes. URINE OUTPUT: None recorded. DISPOSITION: To home. Unless otherwise noted, there were no complications, no blood loss, no cultures obtained, no specimens removed, and no drains retained. Fernando Stinson MD 09 54 AM / Fernando Stinson MD mt Confirmation: [id number] Dictation ID: [id number] documented in this encounter Miscellaneous Notes * Scanned Note-Null - TOP LIFT NAILER, SCAN 2 - 04/28/2012 1033 EST * Scanned Note-Null - TOP LIFT NAILER, SCAN 2 - 04/28/2012 1033 EST documented in this encounter Plan of Treatment Not on file documented as of this encounter Visit Diagnoses Not on filedocumented in this encounter Care Teams Carpet Sewing Machine Operator Relationship Specialty Start Date End Date Keiko Reddy MD [address] [phone] PCP - General 01/05/11 documented as of this encounter
--- OUTSIDE RECORDS SUMMARY | 2023-12-15 01:13 | XMS_ITS | Encounter Summary ---
Author Organization [facility] Address [address] [place] [address] Care Team Providers Care Concrete Block Layer Name Role Phone Keiko Reddy MD Primary Care Provider [phone] Encounter Details Date Type Department Care Team (Late st Contact Info) Description 03/31/2017 Results Only [facility] [phone] Mick Tabares FNP [address] [facility] [address] [place] [address] Social History Tobacco Use Types Packs/Day Years [...] Procedure Name Priority Date/Time Associated Diagnosis Comments PAP TEST- RESULT ONLY Routine 03/31/2017 0:00 EST documented in this encounter Results * PAP TEST- RESULT ONLY (03/31/2017 0:00 EST) Pathology Report: CYTOPATHOLOGY REPORT Reports generated via electronic interface contain original data; however they are lacking the format of the original report. Caution should be taken when reading/interpret ing unformatted reports. Name: ? DAPNHE COE ? Accession #: ? [id number] ? : ? 1965 (Age: 51) ??F ?Collect Date: ? 03/31/2017 ? Location: ? [facility] ? Receive Date: ? 04/02/2017 ? Provider: MICK TABARES GREETER Copy to: ? Final Report SPECIMEN ADEQUACY ? Satisfactory for Evaluation - transformation zone component present GENERAL CATEGORIZATION ? Epithelial Cell Abnormality INTERPRETATION ? Squamous Cell Abnormality - Atypical squamous cells, undetermined significance (ASC-US). EDUCATIONAL NOTES/RECOMMENDAT IONS ? [facility] recommends following ASCCP's 2012 Updated Consensus Guidelines for the Management of Abnormal Cervical Cancer Screening Tests and Cancer Precursors (JLGTD, 2013; 17(5):S1-S27). ??Consensus guidelines are available online at www.asccp.org. Specimen/Source: ??Pap Test, Cervix/Endocervix , ThinPrep Imaging System with manual evaluation Document reviewed and electronically signed by: ? LOU GARCIA MD ? Report ??Date: 04/16/2017 09:48 HPV with Pap Test ? Date Ordered: ? 04/16/2017 ? Status: ?? Signed Out ?Date Complete: ? 04/19/2017 ? By: ??System Interface ? Date Reported: ? 04/19/2017 ? Interpretation RESULT: Negative for HPV. No E6 or E7 mRNA is detected from HPV types 16,18,31,33,35, 39,45,51,52,56,58 ,59,66, and 68 by desk manager mediated amplification. Comments Document reviewed and electronically signed by: ? System Interface ? Report date: 04/19/2017 By the signature above, the attending physician certifies that he/she has personally conducted a gross and/or microscopic examination of the described specimens and rendered or confirmed the above diagnosis. End of Report [facility] 03/31/2017 04/02/2017 Mick GOMEZP PATHOLOGY O RDERABLES [facility] [address] [place] [address] documented in this encounter Visit Diagnoses Not on filedocumented in this encounter Care Teams Concrete Block Layer Relationship Specialty Start Date End Date Keiko Reddy MD 8 [facility] [address] [place] [phone] PCP - General 01/05/11 documented as of this encounter
--- OUTSIDE RECORDS SUMMARY | 2023-12-15 01:13 | XMS_ITS | Encounter Summary ---
Author Organization [facility] Address [address] [place] [address] Care Team Providers Care Insurance Plan Specialist Name Role Phone Keiko Reddy MD Primary Care Provider [phone] Encounter Details Date Type Department Care Team (Latest Contact Info) Description 11/18/2011 8:44 EDT - 11/18/2011 14:09 EDT Hospital Encounter [facility] Perioperative Services - [address] [id number] Mauricio Stinson MD [address] [place] [address] Discharge Disposition: Home or Self [...] Sign Reading Time Taken Comments Blood Pressure 124/82 11/18/2011 1345 EDT Pulse - - Temperature 36.7 ??C (98.1 ??F) 11/18/2011 1345 EDT Respiratory Rate 14 11/18/2011 1345 EDT Oxygen Saturation 98% 11/18/2011 1345 EDT Inhaled Oxygen Concentration - - Weight 63.5 kg (140 lb) 11/06/2011 1329 EDT Height 165.1 cm (5' 5) 11/06/2011 1329 EDT Body Mass Index 23.3 11/06/2011 1329 EDT documented in this encounter Discharge Instructions * Discharge Instructions* Mauricio Stinson MD - 11/18/2011 12:13 EDT Hand,Wrist, and Elbow Discharge Instructions-No [facility] ?? Wound and Dressing Care: You will go home with a bulky soft dressing applied to your surgical site. This dressing may be removed in 72 hours and Band-aids placed over your incisions. The band-aidsshould be changed daily or whenever they get wet or dirty. ?? Bathing: Keep your dressing clean and dry until you remove it. You may shower in 72 hours. Do not soak the wound area. Pat the incisions dry lightly and place clean band-aids over them. ?? Activity: You may begin to move your affected limb gently as tolerated. Avoid any strenuous activities that might open your incisions. ?? Pain: A moderate amount of pain is expected after your surgery. Use cold packs and keep the arm elevated to minimize swelling and pain. Take Tylenol 650mg every 4-6 hours. You may also take an anti-inflammatory such as Motrin, Advil or Aleve. You will also be given a prescription for a narcotic to be used when you have pain that is not relieved by the above listed medications. ?? Other Medications: Patients often experience some nausea after surgery, or when taking narcotics. A prescription for nausea may be given to you to be taken as needed. In addition to nausea, pain medications will also make you constipated. It is suggested that you take a stool softener and/or a gentle laxative such as Senna until you stop taking the narcotics. ?? Follow-up: You should already have an appointment scheduled in the office for follow-up approximately 7-10 days following your surgery. If you have any questions about your appointment please callthe office at [phone] ?? Concerns: Call our office immediately if you develop a fever over 101; your arm becomes significantly more swollen, red, or painful; you notice drainage or a foul smell from the dressing; or if your limb becomes numb or cold. documented in this encounter Medications at Time [...] 6 hours. documented as of this encounter Ordered Prescriptions Prescription Sig Dispensed Refills Start Date End Da te hydrocodone-acetaminophen (LORTAB;VICODIN) 5-500 mg tablet Take 1-2 Tabs by mouth every 6 hours as needed for Pain. 30 Tab 0 11/18/2011 documented in this encounter Discharge Disposition Disposition Code Departure Means Destination Home or Self Care documented in this encounter Progress Notes * REGULATORY AFFAIRS MANAGER, ALEYDA 2 - 11/23/2011 1028 EDT * Fely Castañeda RN - 11/18/2011 1026 EDT Pt has ? foreign body in forearm Left Dr Stinson came to look at this and he will remove this when pt has surgery has her surgery. Pt signed consent for this * Lala Rice RN - 11/06/2011 1329 EDT Daphne Pickard has been instructed as follows regarding medication administration for the day ofthe scheduled procedure. Date of Surgery: 11/18/2011 Instructions for Taking Medications Day of Surgery Medication Last Dose Hold DOS Take DOS citalopram (CELEXA) 20 mg tablet Yes ibuprofen (MOTRIN) 200 mg tablet 10/29/2011 Avoid aspirin and NSAIDS documented in this encounter H&P Notes * REGULATORY AFFAIRS MANAGER, ALEYDA 2 - 11/23/2011 1028 EDT * Mauricio Stinson MD - 11/18/2011 1212 EDT The preoperative history and physical which was performed within 30 days of this procedure has been reviewed and the clinically appropriate elements of the physical examination have been repeated. There are no changes to the documented history and physical or if so such changes are documented below MAURICIO STNISON MD 11/18/2011 12:12 documented in this encounter Procedure Notes * REGULATORY AFFAIRS MANAGER, SCAN 2 - 11/23/2011 1028 EDTAssociated Order(s): ECG REPORT - SCANNED documented in this encounter OR Notes * OR PreOp - REGULATORY AFFAIRS MANAGER, SCAN 2 - 11/23/2011 1028 EDT * OR Surgeon - Mauricio Stinson MD - 11/18/2011 1411 EDT OPERATIVE REPORT SERVICE DATE: 11/18/2011 SURGEON: Mauricio Stinson MD PYTHON JAVA DEVELOPER: None. PREOPERATIVE DIAGNOSIS: 1. Left carpal tunnel syndrome. 2. Left dorsal forearm foreign body. POSTOPERATIVE DIAGNOSIS: 1. Left carpal tunnel syndrome. 2. Left dorsal forearm foreign body. PROCEDURE: 1. Left endoscopic carpal tunnel release. 2. Left dorsal forearm foreign body excision. ANESTHESIA: Savanah block anesthesia. INDICATIONS: Ms Pickard is a 46-year-old right-hand dominant woman who has had EMG diagnosed carpal tunnel syndrome. In addition, last year she sustained a piece of wood to her distal forearm. This has been relatively nonpainful, but does bother her. She wanted to have that excised. The risks and benefits of operative intervention were discussed with her and she wished to proceed. NARRATIVE: The patient was seen preoperatively and her left wrist and left distal forearm were identified as the operative sites. She was brought back to the operating room and placed supine on the OR table. Savanah block anesthesia was placed by the anesthesiology staff using an upper arm tourniquet raised to a pressure of 250 mmHg. Her left hand and arm were prepped and draped in the standard sterile manner. A 1 cm transverse incision was made at the wrist crease just ulnar to the palmaris longus tendon. Blunt dissection was carried out down to the forearm palmar aponeurosis, which was incised sharply inline with the skin incision. A distally based U-shaped flap was created. A synovial Leopold was used to scrape the undersurface of the transverse carpal ligament. The patient had irritation of the median nerve with this placement of the synovial Leopold. The endoscope was introduced into the carpal tunnel. Excellent visualization was achieved. We divided the transverse carpal ligament in a afweqp-[id number]-ollsefro direction. Proximal and distal to our incision, we released the forearm palmar aponeurosis for a distance of 1 cm. The wound was irrigated using 0.5% Marcaine. The wound was closed using 5-0 nylon in an interrupted horizontal mattress stitch. Attention was then turned to the distal forearm dorsally. An 8 mm incision was made over the palpable site of the foreign body. Blunt dissection was carried out down to the foreign body, which was seen to be brown and encapsulated. It measured approximately 8 mm in length. We were able to remove the entirety of the foreign body. The wound was irrigated using normal saline. The wound was closed using 5-0 nylon in an interrupted horizontal mattress stitch. The wound was dressed using Xeroform andgauze. All counts were correct at the end of the case. I was present and scrubbed for the entirety of the case. DRAINS, PACKS, FOREIGN MATERIALS: None. COMPLICATIONS: None. ESTIMATED BLOOD LOSS: Minimal. TOURNIQUET TIME: 25 minutes. FLUIDS: 500 mL of lactated Ringer's intraoperatively. URINE OUTPUT: None recorded. DISPOSITION: To home. Unless otherwise noted, there were no complications, no blood loss, no cultures obtained, no specimens removed, and no drains retained. Mauricio Stinson MD 01 22 PM / Mauricio Stinson MD cs Confirmation: [id number] Dictation ID: [id number] * Anesthesia Procedure Notes - REGULATORY AFFAIRS MANAGER, SCAN 2 - 11/18/2011 1314 EDT * Anesthesia Procedure Notes - REGULATORY AFFAIRS MANAGER, SCAN 2 - 11/18/2011 1307 EDT * OR PreOp - REGULATORY AFFAIRS MANAGER, SCAN 2 - 11/18/2011 1259 EDT * Anesthesia Preprocedure Evaluation - REGULATORY AFFAIRS MANAGER, SCAN 2 - 11/18/2011 1102 EDT documented in this encounter Miscellaneous Notes * Scanned Note-Null - REGULATORY AFFAIRS MANAGER, SCAN 2 - 11/23/2011 1028 EDT * Scanned Note-Null - REGULATORY AFFAIRS MANAGER, SCAN 2 - 11/23/2011 1028 EDT * Anesthesia Post-Eval - Urbano Ramon CRNA - 11/18/2011 1358 EDT Post Anesthesia Evaluation Note Date of Service: 11/18/2011 Daphne Pickard, a 46 y.o. year old female has received Regional Anesthetic today. She has been evaluated, assessed and discharged from anesthesia care with stable cardiorespiratory function and alert mental status. The last set of recorded vital signs and pain rating were reviewed: Temp: 36.7 ??C (98.1 ??F) (11/18/11 1345), Heart Rate: 80 BPM (11/18/11 1345), BP: 124/82 mmHg (11/18/11 1345), Resp: 14 (11/18/11 1345), SpO2: 98 % (11/18/11 1345),Numeric Pain Level (Scale 1-10): 0 Daphne Pickard participated in this evaluation unless otherwise noted. Her pain, nausea and vomiting have been managed and her body temperature and fluid balance have been restored. Additional monitoring and assessment needs have been addressed. If present, any postoperative events are documented below. Urbano Ramon CRNA 11/18/2011 13:58 documented in this encounter Plan of Treatment Not on file documented as of this encounter Procedures Procedure Name Priority Date/Time Associated Diagnosis Comments ECG REPORT - SCANNED 11/23/2011 10:28 EDT documented in this encounter Results * ECG REPORT - SCANNED (11/23/2011 10:28 EDT) 11/23/2011 10:2 8 EDT Narrative Transcriptions REGULATORY AFFAIRS MANAGER, SCAN 2 - 11/23/2011 10:28 EDT Scan 2 Bridge Crane Operator PROCEDURE/MINOR EUGENIA GICAL ORDERABLES documented in this encounter Visit Diagnoses Not on filedocumented in this encounter Administered Medications Inactive Administered Medications - up to 3 most recent administrations Medication Order MAR Action Action Date Dose Rate Site lactated ringers (LR) infusion at 25 mL/hr, intravenous, CONTINUOUS, Starting on Wed11/18/11 at 1045, Until Wed11/18/11 at 1624, Routine, Pre-Op DOS Rx Approved Rate Documented 11/18/2011 13:09 EDT 25 mL/h r New Bag 11/18/2011 10:10 EDT 25 mL/hr documented in this encounter Historical Medications * This list may reflect changes made after this encounter. Medication Sig Dispensed Refills Start Date End Date citalopram (CELEXA) 20 mg tablet Take 20 mg by mouth daily. added in this encounter Active and Recently Administered Medications Times are shown in EDT. Continuous Medication Order 11/16/2011 11/17/2011 11/18/2011 lactated ringers (LR) infusion (CANCELED) at 25 mL/hr, intravenous, CONTINUOUS, Starting on Wed11/18/11 at 1045, Until Wed11/18/11 at 1624, Routine, Pre-Op DOS Rx Approved 1010 (New Bag - Prov ider: Fely Castañeda RN)1309 (Rate Documented - Provider: Steffany Mcguire RN) documented in this encounter Orders Medications Ordered That [place] ht Not Have Been Administered Count Last Ordered Date First Ordered Date acetaminophen (TYLENOL) tablet 325 mg 1 atropine 0.1 mg/mL 10 mL syringe 0.5 mg 1 0 11/18/2011 fentanyl citrate (PF) 50 mcg /mL injection 25-100 mcg 1 11/18/2011 hydrocodone-acetaminophen (L ORTAB;VICODIN) 5-500 mg tablet 1-2 Tab 1 11/18/2011 naloxone (NARCAN) injection 0.2 mg 1 2011 Transfer Count Last Ordered Date First Orde red Date NOTIFY PPS PACU PATIENT DISCHARGE 1 012 Discharge Count Last Ordered Date First Orde red Date DISCHARGE PATIENT 1 11/18/2011 documented in this encounter Care Teams Insurance Plan Specialist Relationship Specialty Start Date End Date Keiko Reddy MD [address] [phone] PCP - General 01/05/11 documented as of this encounter
--- OUTSIDE RECORDS SUMMARY | 2023-12-15 01:13 | XMS_ITS | Encounter Summary ---
Author Organization [facility] Address [address] [place] [address] Care Team Providers Care Fish Boning Machine Feeder Name Role Phone Keiko Reddy MD Primary Care Provider [phone] Reason for Visit * Reason Comments Shoulder Pain right Neck Pain Encounter Details Date Type Department Care Team (Late st Contact Info) Description 02/19/2014 13:00 EDT Office Visit [facility] Sports Medicine Program - [address] [address] Bandar Albert MD [address] [place] [phone] Neck pain (Primary Dx); Right shoulder pain Social History Tobacco Use Types Packs/Day Years [...] - - Weight 63.5 kg (140 lb) 02/19/2014 1250 EDT Height 165.1 cm (5' 5) 02/19/2014 1250 EDT Body Mass Index 23.3 02/19/2014 1250 EDT documented in this encounter Discharge Diagnoses Diagnosis 723.1 CERVICALGIA[ICD-9-CM] 719.41 JOINT PAIN-SHLDER[ICD-9-CM] documented in this encounter Progress Notes * Bandar Albert MD - 02/19/2014 1314 EDT This office note has been dictated. documented in this encounter Consult Notes * Bandar Albert MD - 02/19/2014 1405 EDT SPORTS MEDICINE SERVICE CONSULTATION - 02/19/2014 PROBLEM: Neck pain and right shoulder pain. HISTORY OF PRESENT ILLNESS: A 48-year-old female with neck pain and right shoulder pain. Consultation requested by Tor Valentine MD. Primary care physician is Keiko Reddy MD. Her problems started in November of 2010. She was at work and she apparently abducted her shoulder and she struck her right elbow region on some type of metal edge. Her initial complaint was swelling around the elbow and neurologic symptoms in her hand. She underwent electrodiagnostic studies by Dr Garces 01/06/2011 documenting a right radial nerve injury. She was seen by Dr Garcia who recommended watchful waiting. She underwent repeat studies 09/23/[address] Garces showing some slight improvement. She underwent repeat e lectrodiagnostic studies 11/23/[address] Garces demonstrating a chronic radial nerve injury without much improvement from the prior exam. She was also found to have a new mild right C5-6 radiculopathy. She has developed neck and shoulder pain. It is not entirely clear to me when these symptoms started. She feels that her neck and shoulder pain may be related to her initial injury to her forearm in November of 2010. She was seen recently by Dr Valentine. He felt that she may have an underlying shoulder problem causing her symptoms. Her chief complaint to me is neck pain. She does complain of shoulder pain. She describes her symptoms as debilitating. She says that use of her shoulder is limited. Pain is in the upper arm and backof the shoulder and in the neck. She does not complain of neurologic symptoms. She takes ibuprofen.She has had no injections. She has not done any therapy for this problem and she is reluctant to dotherapy because it has not worked in the past for other problems. MEDICAL HISTORY: No major medical problems listed. No relevant surgical history. MEDICATIONS AND ALLERGIES: Listed in [facility]. FAMILY HISTORY: No relevant family history. SOCIAL HISTORY: She is currently unemployed. She drinks alcohol monthly. REVIEW OF SYSTEMS: Positive for night sweats, hearing loss, tinnitus, balance disturbance, kidney stones, skin cancer, easy bruising, anxiety, depression and headaches. OBJECTIVE: She was alert. She came alone. Five feet 5 inches tall. BMI 23.3. Two plus radial pulse on the right. Sensation grossly intact to light touch C5 through T1. No visible atrophy, scars, rashes or deformity around her right shoulder. Active elevation 105 degrees right, 170 degrees left. Passive elevation 170 degrees right. Passive external rotation with her arms to the side 80 degrees bilaterally. Internal rotation T12 right, T2 left. No scapular winging. Tender around the AC joint. Four/5 strength with He test, 5/5 external rotation strength. Negative belly press test. Negative lift-off test. DIAGNOSTIC DATA: MRI cervical spine, [facility] 01/08/2014 was reviewed as was the report. The report states that she has multilevel degenerative disk and facet disease including C5-6, moderate to severe right foraminal narrowing. ASSESSMENT AND PLAN: A 48-year-old female with right shoulder and neck pain. Chief complaint is neck pain. Electrodiagnostic and MRI evidence of neurologic impingement. She does not complain of symptoms consistent with radiculopathy. She does have shoulder pain. No recent trauma. I think it is unlikely she has a major structural problem. Options were discussed including physical therapy, injection therapy and proceeding with an MRI of her shoulder to rule out structural lesions. She has chosen the latter. She will undergo x-rays and an MRI. I will follow up with her by phone with the results. If no significant structural lesion seen on MRI, would recommend follow up with spine service. Bandar Albert MD 01 13 PM - Bandar Albert MD cn Dictation ID: [id number] cc: Keiko Reddy MD, [address], [address], [place] [address] Tor Valentine MD, FA - Neurosurgery [address] [place] [address] documented in this encounter Plan of Treatment Not on file documented as of this encounter Visit Diagnoses Diagnosis Neck pain- Primary Cervicalgia Right shoulder pain Pain in joint, shoulder region documented in this encounter Care Teams Fish Boning Machine Feeder Relationship Specialty Start Date End Date Keiko Reddy MD [address] [phone] PCP - General 01/05/11 documented as of this encounter
--- OUTSIDE RECORDS SUMMARY | 2023-12-15 01:13 | XMS_ITS | Encounter Summary ---
Author Organization [facility] Address [address] [place] [address] Care Team Providers Care Interface Control Officer Name Role Phone Keiko Reddy MD Primary Care Provider [phone] Encounter Details Date Type Department Care Team (Latest Contact Info) Description 12/24/2015 11:27 EDT - 12/24/2015 11:30 EDT Hospital Encounter [address] [address] Keiko Reddy MD 8 [facility] [address] [place] [phone] Discharge Disposition: Home or Self Care Social [...] as of this encounter Discharge Diagnoses Diagnosis R94.5 Abnormal results of liver function studies-R94.5[ICD-10-CM] documented in this encounter Medications at Time [...] on filedocumented in this encounter Care Teams Interface Control Officer Relationship Specialty Start Date End Date Keiko Reddy MD [address] [phone] PCP - General 01/05/11 documented as of this encounter
--- OUTSIDE RECORDS SUMMARY | 2023-12-15 01:13 | XMS_ITS | Clinical Summary ---
Author Organization [facility] Address [address] [place] [address] Care Team Providers Care Chemist Assistant Name Role Phone Keiko Reddy MD Primary Care Provider [phone] Allergies Active Allergy Reactions Criticality Noted Date Comments Gabapentin 11/17/2011 Did Not [address] the way she Holcomb with it Medications Medication Sig Dispensed Refills Start Date End Date Status ibuprofen (MOTRIN) 200 mg tablet Take 200 mg by mouth every 6 hours. Active citalopram (CELEXA) 20 mg tablet Take 20 mg by mouth daily. Active hydrocodone-acetaminop hen (LORTAB;VICODIN) 5-500 mg tablet Take 1-2 Tabs by mouth every 6 hours as needed for Pain. 30 Tab 0 11/18/2011 Active buPROPion (WELLBUTRIN SR) 150 mg SR tablet Take 150 mg by mouth 2 times daily. Active naproxen sodium (ALEVE) 220 mg capsule Take by mouth. Active amitriptyline (ELAVIL) 10 mg tablet Take 10 mg by mouth 3 times daily. Active LORazepam (ATIVAN) 0.5 mg tablet Take 1 mg by mouth 3 times daily. Active Active Problems Problem Noted Date Diagnosed Date Neck pain 02/19/2014 Right shoulder pain 02/19/2014 Injury of radial nerve 06/24/2011 Elbow pain 06/24/2011 Immunizations Name Administration Dates Next Due Influenza (whole) 02/21/2011 Surgical History Surgery Date Site/Laterality Comments CARPAL TUNNEL RELEASE FINGER TRIGGER RELEASE Medical History Medical History Date Comments Basal cell carcinoma 12/27/13 left should er Night sweats Hearing loss Tinnitus Vertigo Chronic kidney disease Anxiety Depression Generalized headaches Back pain Shoulder pain Numbness Family History Medical History Relation Comments Cancer Mother Eczema Mother Relation Status Comments Father Mother Social History Tobacco Use Types Packs/Day Years [...] on file Sexual Orientation Not on file Obstetrics History Last Filed Vital Signs Vital Sign Reading [...] Body Mass Index 23.3 02/19/2014 1250 EDT Plan of Treatment Health Maintenance Due Date Last Done Comments Hepatitis B Vaccine (1 of 3 - 19+ 3-dose series) 08/14 COVID-19 Vaccine ( season) 2023 Hepatitis C Screen Completed 03/22/2012 Procedures Procedure Name Priority Date/Time Associated Diagnosis Comments HEPATITIS C AB W REFLEX TO HCV RNA BY PCR Routine 03/22/2012 13:13 EDT from Last 3 Months or Most Recently Relevant to Health Maintenance Results * HEPATITIS C ANTIBODY (03/22/2012 13:13 EDT) Hepatitis C Ab Negative [facility] Comment:Reference Range: Neg ative 03/22/2012 13:1 3 EDT 03/22/2012 19:04 EDT Keiko Reddy MD CHEMISTRY & BLOOD GA S ORDERABLES [facility] [address] [place] [address] from Last 3 Months or Most Recently Relevant to Health Maintenance Care Teams Chemist Assistant Relationship Specialty Start Date End Date Keiko Reddy MD [address] [phone] PCP - General 01/05/11
--- OUTSIDE RECORDS SUMMARY | 2023-12-15 01:13 | XMS_ITS | Encounter Summary ---
Author Organization [facility] Address [address] [place] [address] Care Team Providers Care Suspender Cutter Name Role Phone Keiko Reddy MD Primary Care Provider [phone] Reason for Referral * Consult (Routine) - Closed Specialty Diagnoses / Procedures Referred By Contac t Referred To Contact Orthopedic Surgery Diagnoses Shoulder pain Tor Valentine MD [address] [place] [phone] [facility] [place] [place] [address] Referral ID Status Reason Start Date Expiration Date V isits Requested Visits Authorized [id number] Closed Specialty Services Required 01/16/2014 1 1 Question Answer Reason for Request: shoulder pain Comments Bety * Referral (Routine) - Closed Specialty Diagnoses / Procedures Referred By Contac t Referred To Contact Rehab Therapies Diagnoses Shoulder pain Tor Valentine MD [address] [phone] Referral ID Status Reason Start Date Expiration Date V isits Requested Visits Authorized [id number] Closed Specialty Services Required 01/16/2014 1 1 Question Answer Reason for Request: neck and shoulder pain * Radiology Services (Routine) - Closed Specialty Diagnoses / Procedures Referred By Contac t Referred To Contact Diagnoses Shoulder pain Procedures SHOULDER 2 OR MORE VIEWS Tor Valentine MD [address] [place] [phone] Referral ID Status Reason Start Date Expiration Date Visits Re quested Visits Authorized [id number] Closed 01/16/2014 1 1 * Radiology Services (Routine) - Closed Specialty Diagnoses / Procedures Referred By Contac t Referred To Contact Diagnoses Neck pain Procedures CERVICAL SPINE 4 OR MORE VIEWS Tor Valentine MD [address] [place] [phone] Referral ID Status Reason Start Date Expiration Date Visits Re quested Visits Authorized [id number] Closed 01/16/2014 1 1 Reason for Visit * Reason Comments Shoulder Pain Encounter Details Date Type Department Care Team (Late st Contact Info) Description 01/16/2014 10:00 EDT Office Visit [facility] Neurosurgery [address] [phone] Tor Valentine MD [address] [place] [phone] Neck pain (Primary Dx); Shoulder pain Social History Tobacco Use Types Packs/Day Years Used Date Smoking Tobacco: Former Smokeless Tobacco: Never Alcohol Use Standard Drinks/Week Comments No 0 (1 standard drink = 0.6 oz pur e alcohol) Sex and Gender Information Value Date Recorded Sex Assigned at Not on file Gender Identity Not on file Sexual Orientation Not on file documented as of this encounter Progress Notes * Tor Valentine MD - 01/16/2014 1627 EDT Mrs Pickard is a 48-year-old woman seen in consultation at the request of Keiko Reddy regarding neckand right shoulder pain. CHIEF COMPLAINT: Neck and right shoulder pain. 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 She struck her right elbow while standing up quickly, causing significant local trauma to her right elbow including a radial nerve injury. Since that time, she hashad shoulder and neck pain on the right side including headaches. She has not been treated with physical therapy or injections. She denies left-sided symptoms. PAST MEDICAL HISTORY: Depression. PAST SURGICAL HISTORY: Left carpal tunnel release, basal cell carcinoma resection. MEDICATIONS: Hydrocodone, Wellbutrin, Aleve. ALLERGIES: None. SOCIAL HISTORY: She lives in [place], [place]. She does not smoke. FAMILY HISTORY: She is adopted. PHYSICAL EXAM: Mrs Pickard is a very healthy-appearing 48-year-old woman. Her weight is appropriate for her frame. Her gait is normal. She has 5/5 strength with some pain limitation on the right side.She is unable to internally or externally rotate her shoulder without pain. She has tenderness to palpation of her rotator cuff. She has poor range of motion of the cervical spine. ASSESSMENT: Mrs Pickard is a 48-year-old woman with axial neck pain without classic radicular symptoms. I have discussed with her that the mechanism of her injury and her physical exam fit more closely with a rotator cuff problem and neck pain secondary to guarding. We will order cervical flexion-extension films as well as shoulder films today. We will have her seen at [facility] regarding her shoulder and further workup that may be needed. I will see her back after orthopedics evaluation to catalina her progress. documented in this encounter Plan of Treatment Pending Results Name Type Priority Associated Diagnoses Date /Time OUTSIDE IMAGES - MR NEURO Imaging 01/16/2014 10:30 EDT OUTSIDE IMAGES - MR NEURO Imaging 01/16/2014 10:30 EDT Scheduled Referrals Name Type Priority Associated Diagnoses Order Schedule AMB CONS/FOLLOW UP PHYSICAL THERAPY Outpatient Referral Routine Shoulder pain Ordered: 01/16/2014 AMB CONS/FOLLOW UP ORTHOPEDICS Outpatient Referral Routine Shoulder pain Ordered: 01/16/2014 documented as of this encounter Procedures Procedure Name Priority Date/Time Associated Diagnosis Comments SHOULDER 2 OR MORE VIEWS Routine 02/19/2014 13:24 EDT Shoulder pain CERVICAL SPINE 4 OR MORE VIEWS Routine 02/19/2014 13:24 EDT Neck pain documented in this encounter Results * SHOULDER 2 OR MORE VIEWS (02/19/2014 13:24 EDT) Anatomical Region Laterality Modality Other 02/19/2014 13:2 4 EDT 02/19/2014 14:05 EDT Narrative 02/19/2014 14:05 EDT SHOULDER 2 OR MORE VIEW ??02/19/2014 1:24 PM Signs and Symptoms/Comments: ?? 719.41-Pain in joint, shoulder [id number]-2-CM; shoulder pain . Findings: The glenohumeral point is unremarkable. There is minimal a.c. joint arthropathy. There is mild cortical irregularity at the greater tuberosity, of uncertain significance. Internal and external rotation views of the right shoulder would be helpful for further evaluation. Procedure Note 02/19/2014 SHOULDER 2 OR MORE VIEW 02/19/2014 1:24 PM Signs and Symptoms/Comments: 719.41-Pain in joint, shoulder [id number]-CM; shoulder pain . Findings: The glenohumeral point is unremarkable. There is minimal a.c. joint arthropathy. There is mild cortical irregularity at the greater tuberosity, of uncertain significance. Internal and external rotation views of the right shoulder would be helpful for further evaluation. Tor Valentine MD IMG DIAGNOSTIC IM AGING ORDERABLES * CERVICAL SPINE 4 OR MORE VIEWS (02/19/2014 13:24 EDT) Anatomical Region Laterality Modality Other 02/19/2014 13:2 4 EDT 02/19/2014 18:29 EDT Narrative 02/19/2014 18:29 EDT CERVICAL SPINE 4 OR MORE VIEWS ??02/19/2014 1:24 PM Signs and Symptoms/Comments: ??723.0-Zecpysoioen-EYH-9-CM; neck pain. Findings: 4 views of the cervical spine were obtained. These demonstrate that the vertebral alignment appears normal. There is some degenerative disc disease with posterior osteophyte formation noted at the C5-C6 and C6-C7 levels. The neutral views show loss of normal cervical lordosis with straightening of the mid cervical segments. The flexion and extension views show no dynamic instability Procedure Note 02/19/2014 CERVICAL SPINE 4 OR MORE VIEWS 02/19/2014 1:24 PM Signs and Symptoms/Comments: 723.5-Rkbbgjlbrzg-JII-9-CM; neck pain. Findings: 4 views of the cervical spine were obtained. These demonstrate that the vertebral alignment appears normal. There is some degenerative disc disease with posterior osteophyte formation noted at the C5-C6 and C6-C7 levels. The neutral views show loss of normal cervical lordosis with straightening of the mid cervical segments. The flexion and extension views show no dynamic instability Tor Valentine MD IMG DIAGNOSTIC IM AGING ORDERABLES documented in this encounter Visit Diagnoses Diagnosis Neck pain- Primary Cervicalgia Shoulder pain Pain in joint, shoulder region documented in this encounter Care Teams Suspender Cutter Relationship Specialty Start Date End Date Keiko Reddy MD [address] [phone] PCP - General 01/05/11 documented as of this encounter
--- OUTSIDE RECORDS SUMMARY | 2023-12-15 01:13 | XMS_ITS | Encounter Summary ---
Author Organization [facility] Address [address] [place] [address] Care Team Providers Care Community Outreach Worker Name Role Phone Keiko Reddy MD Primary Care Provider [phone] Encounter Details Date Type Department Care Team (Late st Contact Info) Description 10/01/2020 Lab Requisition [facility] Pathology & Laboratory Medicine - [facility] [place] [address] [place] [address] Grecia Maddox MD [address] [place] [phone] Encounter for other general examination Social History Tobacco Use Types Packs/Day Years [...] Procedure Name Priority Date/Time Associated Diagnosis Comments SURGICAL PATHOLOGY Today 09/30/2020 15 :10 EDT Encounter for other general examination documented in this encounter Results * SURGICAL PATHOLOGY (09/30/2020 15:10 EDT) Final Diagnosis A. SKIN OF SHOULDER, RIGHT, PUNCH BIOPSY: - Melanocytic nevus, intradermal type. - Nevus does not extend to edges of punch biopsy specimen in the plane of the complete sections examined. 10/02/2020 10:24 [facility] Attestation By the signature below, the attending physician certifies that they have 1) personally conducted a gross and/or microscopic examination of the described specimen(s), and/or personally interpreted the results of laboratory testing of the described specimen(s), and 2) personally rendered or confirmed the above diagnosis. 10/02/2020 10:24 [facility] at 1024 Microscopic Description Sections are of a papule with mild epidermal hyperplasia and hyperkeratosis. There is a proliferation of melanocytes within the dermis. The proliferation consists of nests, cords, and strands that diminish in size with descent into the dermis. The melanocytes are slightly enlarged but generally have round-oval nuclei and a moderate amount of cytoplasm. The melanocytes show elevator service technician maturation. 10/02/2020 10:24 [facility] Clinical History 4 mm raised smooth lesion 10/02/2020 10:24 [facility] Gross Description A. Received in formalin labelled with proper patient identification (initials H, M) and R shoulder is a soler-white skin shave biopsy measuring 0.6 x 0.5 x 0.1 cm. At one edge there is a raised pink papule measuring 0.2 cm in diameter. Inked, trisected and submitted entirely in A1. NIDIA BUCKNER(ASCP) 10/01/2020 19:37 10/02/2020 10:24 T [facility] Performing Lab [facility] 10/02/2020 10:24 [facility] Scanned Images 10/02/2020 10:24 [facility] Tissue TISSUE SPECIMEN FROM SKIN / Unknown 09/30/2020 15:10 EDT 10/01/2020 17:40 EDT Grecia Maddox MD PATHOLOGY ORDERABLES [facility] [address] [place] [address] documented in this encounter Visit Diagnoses Diagnosis Encounter for other general examination documented in this encounter Care Teams Community Outreach Worker Relationship Specialty Start Date End Date Keiko Reddy MD 8 [facility] [address] [place] [phone] PCP - General 01/05/11 documented as of this encounter
--- OUTSIDE RECORDS SUMMARY | 2023-12-15 01:13 | XMS_ITS | Encounter Summary ---
Author Organization [facility] Address [address] [place] [address] Care Team Providers Care Veteran Appeals Reviewer Name Role Phone Keiko Reddy MD Primary Care Provider [phone] Encounter Details Date Type Department Care Team (Late st Contact Info) Description 12/24/2015 Results Only [facility] [phone] Keiko Reddy MD 8 [facility] [address] [place] [address] Social History Tobacco Use Types [...] Procedure Name Priority Date/Time Associated Diagnosis Comments COMPLETE BLOOD COUNT Routine 12/24/2015 16:47 EDT COMPREHENSIVE METABOLIC PANEL (CMP) Routine 12/24/2015 16:47 EDT documented in this encounter Results * COMPREHENSIVE METABOLIC PANEL (CMP) (12/24/2015 16:47 EDT) Potassium 3.7 3.5 - 5.0 mEq/L 12/24/2015 20:51 EDT [facility] Sodium 143 136 - 145 mEq/L 12/24/2015 20:51 EDT [facility] Chloride 99 96 - 110 mEq/L 12/24/2015 20:51 [facility] CO2 30 24 - 32 mEq/L 12/24/2015 20:51 [facility] Total Alkaline Phosphatase 58 38 - 126 U/L 12/24/2015 20:51 [facility] Bilirubin, Total 0.5 <1.4 mg/dl 12/24/19 16 20:51 [facility] AST 29 15 - 46 U/L 12/24/2015 20:51 [facility] ALT 37 <53 U/L 12/24/2015 20:51 [facility] Albumin 4.4 3.4 - 4.9 g/dl 12/24/2015 20:51 [facility] Total Protein 6.8 6.3 - 8.2 g/dl 12/24/2015 20:51 [facility] Creatinine 0.81 0.52 - 1.04 mg/dl 12/24/2015 20:51 [facility] GFR, Calculated 85 >60 ml/min/1.7 3m2 12/24/2015 20:51 [facility] Comment: eGFR calculated using CKD-EPI equation for non Americans. Multiply eGFR by 1.16 for Americans. BUN 14 10 - 26 mg/dl 12/24/2015 20:51 [facility] Calcium 9.6 8.5 - 10.5 mg/dl 12/24/2015 20:51 [facility] Calculated Calcium 9.6 8.5 - 10.5 mg/dl 12/24/2015 20:51 [facility] Glucose, Serum 91 70 - 100 mg/dl 12/24/2015 20:51 [facility] Fasting? Unknown 12/24/2015 19:42 [facility] BLOOD SPECIMEN / Unknown 12/24/2015 16:47 EDT 12/24/2015 19:42 EDT Keiko Reddy MD CHEMISTRY & BLOOD GA S ORDERABLES [facility] [address] [place] [address] * (ABNORMAL) HEMAGRAM (12/24/2015 16:47 EDT) WBC 7.05 4.0 - 12.4 K/cmm 12/24/2015 20:24 EDT [facility] RBC 4.28 3.86 - 5.04 M/cmm 12/24/2015 20:24 EDT [facility] Hemoglobin 13.6 11.6 - 15.2 gm/dl 12/24/2015 20:24 EDT [facility] HCT 39.0 34.9 - 44.4 % 12/24/2015 20:24 T [facility] MCV 91 81 - 98 fl 12/24/2015 20:24 EDT [facility] MCH 31.8 26.7 - 33.3 pg 12/24/2015 20:24 EDT [facility] MCHC 34.9 32.1 - 35.9 gm/dl 12/24/2015 20:24 EDT [facility] RDW-CV 11.7 11.7 - 14.6 % 12/24/2015 20:24 [facility] RDW-SD 38.7 37.6 - 50.3 fl 12/24/2015 20:24 T [facility] PLT 266 141 - 377 K/cmm 12/24/2015 20:24 T [facility] MPV 9.0(L) 9.5 - 12.7 fl 12/24/2015 20:24 EDT [facility] BLOOD SPECIMEN / Unknown 12/24/2015 16:47 EDT 12/24/2015 19:42 EDT Keiko Reddy MD HEMATOLOGY & PF4 ORD ERABLES [facility] [address] [place] [address] documented in this encounter Visit Diagnoses Not on filedocumented in this encounter Care Teams Veteran Appeals Reviewer Relationship Specialty Start Date End Date Keiko Reddy MD [address] [place] [address] [address] [place] [phone] PCP - General 01/05/11 documented as of this encounter
--- OUTSIDE RECORDS SUMMARY | 2023-12-15 01:13 | XMS_ITS | Encounter Summary ---
Author Organization [facility] Address [address] [place] [address] Care Team Providers Care Relations Mgr Name Role Phone Keiko Reddy MD Primary Care Provider [phone] Reason for Visit * Reason Comments Elbow Pain Right Hand Pain Left Encounter Details Date Type Department Care Team (Late st Contact Info) Description 09/23/2011 15:00 EDT Office Visit [facility] Hand & Upper Extremity Program [place] [address] Nir Garces MD [address] [phone] Radial nerve injury; Carpal tunnel syndrome on both sides Social History Tobacco Use Types Packs/Day Years Used Date Smoking Tobacco: Former Alcohol Use Standard Drinks/Week Comments Yes 0 (1 standard drink = 0.6 oz pur e alcohol) Sex and Gender Information Value Date Recorded Sex Assigned at Not on file Gender Identity Not on file Sexual Orientation Not on file documented as of this encounter Progress Notes * Nir Garces MD - 09/23/2011 0751 EDT This office note has been dictated. documented in this encounter Procedure Notes * Nir Garces MD - 09/24/2011 0655 EDT [facility] ELECTRODIAGNOSTIC MEDICINE CONSULTATION SERVICE DATE: 09/23/2011 ATTENDING PHYSICIAN: Nir Garces MD REQUESTING REPUBLICAN: Keiko Reddy MD HISTORY: I saw this pleasant woman for prior electrodiagnostics back in 12/2010. She was status posta sharp direct blow to the right lateral elbow in November. 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 She tells me that she has been having ongoing numbness bilaterally in her hands and things have changed. In the lefthand, it is primarily in digits 1, 2 and 3, sometimes on the right side as well. The tingling on the dorsum of her hand has improved on the right, and the tingling in the volar aspect has worsened. The patient has seen Dr Garcia and his treatment team for a second opinion. This is reviewed, and she is here today for my evaluation and testing. For past medical history, problem list and medication list, I refer to the [facility] intake. FAMILY HISTORY: Noncontributory. REVIEW OF SYSTEMS: Please see intake format. This is reviewed with the patient and signed. OBJECTIVE: She is alert. She is cooperative, oriented x3. The cervical range of motion is intact. Shoulder range of motion is intact. At her elbow, full extension on the right side causes some discomfort in the lateral epicondylar area. She is tender directly over the lateral epicondyle. She has a negative supination compression test today and negative middle finger test. She has a positive carpal compression test bilaterally. She has a negative hyperflexion of the elbows bilaterally. In order to investigate the status of her proximal and peripheral nerves, the plan is to perform electrodiagnostics. NERVE CONDUCTION STUDY: Nerve Distal Latency Evoked Nerve Conduction Comments (NI<3.6) Response Velocity Amplitude Left median motor 6.0 6.3 millivolts Left median sensory 5.4 15 microvolts Right median motor 4.3 8.8 millivolts Right median sensory 4.1 11 microvolts Right radial sensory 2.2 38 microvolts Right radial motor 2.2 4.8 millivolts 56 meters/second Across proximal forearm, slight drop in M-wave amplitude to 4.2 millivolts EMG REPORT: A monopolar exploring electrode was used with standard technique. Muscles examined included the right and left abductor pollicis brevis, opponens pollicis, first dorsal interosseous, abductor digiti quinti, extensor indicis proprius, extensor pollicis brevis, supinator, brachioradialis,pronator teres, flexor carpi ulnaris, flexor digitorum profundus -- ulnar. FINDINGS: There was trace to 1+ increased insertional activity seen in the extensor indicis proprius and extensor pollicis brevis on the right. Recruitment patterns were slightly diminished in those two muscles. In the left abductor pollicis brevis and opponens pollicis, there was trace to 1+ increased insertional activity. All other muscles tested normally. IMPRESSION: This is an abnormal study. 1. There is a somewhat improving right radial nerve contusion. 2. She seems to have a remnant degree of lateral epicondylitis on the right. 3. Unequivocally, she has left moderate carpal tunnel syndrome. I have not tested this side before. 4. There is interval change for the worse on the right in that she now has mild right carpal tunnelsyndrome. I had a discussion with the patient regarding the testing, the anatomy and some of the standard treatment options and issues. Electronically Signed by Nir Garces MD 09/24/2011 14:30 Nir Garces MD - Nir Garces MD A - AYDEN Job ID: SM Doc ID: [id number] Ext Doc ID: [id number] cc: MD Keiko Oates MD documented in this encounter Plan of Treatment Not on file documented as of this encounter Visit Diagnoses Diagnosis Radial nerve injury Injury to radial nerve Carpal tunnel syndrome on both sides Carpal tunnel syndrome documented in this encounter Care Teams Relations Mgr Relationship Specialty Start Date End Date Keiko Reddy MD [address] [phone] PCP - General 01/05/11 documented as of this encounter
--- OUTSIDE RECORDS SUMMARY | 2023-12-15 01:13 | XMS_ITS | Referral Summary ---
Author Organization [facility] Address [address] [place] [address] Care Team Providers Care Preform Machine Operator Name Role Phone Keiko Reddy MD Primary Care Provider Allergies Active Allergy Reactions Criticality Noted Date Comments Gabapentin 11/17/2011 Did Not like the way she Cash with it Medications Medication Sig Dispensed Refills [...] Administration Dates Next Due Influenza (whole) 02/21/2011 Social History Tobacco Use Types Packs/Day Years [...] on file Sexual Orientation Not on file Last Filed Vital Signs Vital Sign Reading [...] 23.3 02/19/2014 1250 EDT Plan of Treatment Not on file Procedures Procedure Name Priority Date/Time Associated Diagnosis [...] BLOOD GA S ORDERABLES Performing Organization Address City/State/[facility] Co de Phone Number [facility] [address] [place] [address] from Last 3 Months or Most Recently Relevant to Health Maintenance Care Teams Preform Machine Operator Relationship Specialty Start Date End Date Keiko Reddy MD [address] [phone] PCP - General 01/05/11
--- OUTSIDE RECORDS SUMMARY | 2023-12-15 01:13 | XMS_ITS | Encounter Summary ---
Author Organization [facility] Address [address] [place] [address] Care Team Providers Care Oncology Nurse Navigator Name Role Phone Keiko Reddy MD Primary Care Provider [phone] Encounter Details Date Type Department Care Team (Late st Contact Info) Description 05/12/2018 Results Only [facility] [phone] Morro Maddox MD [address] [place] [phone] Social History Tobacco Use Types Packs/Day Years [...] Diagnosis Comments PAP TEST- RESULT ONLY Routine 05/12/2018 0:00 EST documented in this encounter Results * PAP TEST- RESULT ONLY (05/12/2018 0:00 EST) Pathology Report: CYTOPATHOLOGY REPORT Reports generated via electronic interface contain original data; however they are lacking the format of the original report. Caution should be taken when reading/interpreti ng unformatted reports. Name: ? DAPHNE COE ? Accession #: ? [id number] ? : ? 1965 (Age: 52) ??F ?Collect Date: ? 05/12/2018 ? Location: ? [facility] ? Receive Date: ? 05/13/2018 ? Provider: MORRO MADDOX MD Copy to: ? Final Report SPECIMEN ADEQUACY ? Satisfactory for Evaluation - assessment of transformation zone component not applicable ( e.g. atrophy, vaginal sample, hysterectomy) - scant squamous epithelial component, contamination present, possibly lubricant GENERAL CATEGORIZATION ? Negative for Intraepithelial Lesion or Malignancy ?? Menstrual/Pregnanc y Status: ??Menopausal Other: Additional clinical information: Z00.00 Z12.4 Z01.419 Specimen/Source: ??Pap Test, Cervix, ThinPrep Imaging System with manual evaluation Document reviewed and electronically signed by: ? Radha Horan, [facility](ASCP) ? Report ??Date: 05/23/2018 09:50 HPV with Pap Test ? Date Ordered: ? 05/23/2018 ? Status: ?? Signed Out ?Date Complete: ? 05/24/2018 ? By: ??System Interface ? Date Reported: ? 05/24/2018 ? Interpretation RESULT: Negative for HPV. No E6 or E7 mRNA is detected from HPV types 16,18,31,33,35, 39,45,51,52,56,58, 59,66, and 68 by magnetic healer mediated amplification. Comments Document reviewed and electronically signed by: ? System Interface ? Report date: 05/24/2018 By the signature above, the attending physician certifies that he/she has personally conducted a gross and/or microscopic examination of the described specimens and rendered or confirmed the above diagnosis. End of Report [facility] 05/12/2018 05/13/2018 Morro Maddox MD PATHOLOGY ORDERABLES [facility] [address] [place] [address] documented in this encounter Visit Diagnoses Not on filedocumented in this encounter Care Teams Oncology Nurse Navigator Relationship Specialty Start Date End Date Keiko Reddy MD 8 [facility] [address] [place] [address] PCP - General 01/05/11 documented as of this encounter
--- OUTSIDE RECORDS SUMMARY | 2023-12-15 01:13 | XMS_ITS | Encounter Summary ---
Author Organization [facility] Address [address] [place] [address] Care Team Providers Care Manufacturing Teacher Name Role Phone Keiko Reddy MD Primary Care Provider [phone] Encounter Details Date Type Department Care Team (Late st Contact Info) Description 03/18/2012 Results Only Imaging [facility] [phone] Keiko Reddy MD 8 [facility] [address] [place] [address] Social History Tobacco Use Types [...] on filedocumented in this encounter Care Teams Manufacturing Teacher Relationship Specialty Start Date End Date Keiko Reddy MD [address] [place] [address] PCP - General 01/05/11 documented as of this encounter
--- OUTSIDE RECORDS SUMMARY | 2023-12-15 01:13 | XMS_ITS | Encounter Summary ---
Author Organization [facility] Address [address] [place] [address] Care Team Providers Care Detective Bureau Chief Name Role Phone Keiko Reddy MD Primary Care Provider [phone] Encounter Details Date Type Department Care Team (Latest Contact Info) Description 10/18/2013 13:25 EDT - 10/18/2013 13:27 EDT Hospital Encounter [address] [address] Keiko Reddy MD 8 [facility] [address] [place] [address] Discharge Disposition: Home or Self Care Social [...] as of this encounter Discharge Diagnoses Diagnosis 311. DEPRESSIVE DISORDER NEC[ICD-9-CM] 790.5 ABN SERUM ENZY LEVEL NEC[ICD-9-CM] documented in this encounter Medications at Time [...] on filedocumented in this encounter Care Teams Detective Bureau Chief Relationship Specialty Start Date End Date Keiko Reddy MD [address] [phone] PCP - General 01/05/11 documented as of this encounter
--- OUTSIDE RECORDS SUMMARY | 2023-12-15 01:13 | XMS_ITS | Encounter Summary ---
Author Organization [facility] Address [address] [place] [address] Care Team Providers Care Railroad Brake Operator Name Role Phone Keiko Reddy MD Primary Care Provider [phone] Encounter Details Date Type Department Care Team (Late st Contact Info) Description 12/07/2017 Orders Only Non [facility] Keiko Reddy MD 8 [facility] [address] [place] [address] Other fatigue (Primary Dx); Obesity, unspecified Social History Tobacco Use Types Packs/Day Years [...] as of this encounter Visit Diagnoses Diagnosis Other fatigue- Primary Obesity, unspecified documented in this encounter Care Teams Railroad Brake Operator Relationship Specialty Start Date End Date Keiko Reddy MD [address] [place] [address] PCP - General 01/05/11 documented as of this encounter
--- OUTSIDE RECORDS SUMMARY | 2023-12-15 01:13 | XMS_ITS | Encounter Summary ---
Author Organization [facility] Address [address] [place] [address] Care Team Providers Care Strategy Associate Name Role Phone Keiko Reddy MD Primary Care Provider [phone] Encounter Details Date Type Department Care Team (Late st Contact Info) Description 03/05/2014 Abstract [facility] Sports Medicine Program - [address] [address] Bandar Albert MD [address] [place] [address] Social History Tobacco Use Types Packs/Day Years [...] on filedocumented in this encounter Care Teams Strategy Associate Relationship Specialty Start Date End Date Keiko Reddy MD [address] [address] PCP - General 01/05/11 documented as of this encounter
--- OUTSIDE RECORDS SUMMARY | 2023-12-15 01:13 | XMS_ITS | Encounter Summary ---
Author Organization [facility] Address [address] [place] [address] Care Team Providers Care Direct Mail Clerk Name Role Phone Keiko Reddy MD Primary Care Provider [phone] Reason for Visit * Reason Comments Basal Cell Carcinoma left shoulder Encounter Details Date Type Department Care Team (Late st Contact Info) Description 12/27/2013 8:00 EDT Office Visit [facility] Dermatology 5th Floor [facility] [address] [place], [place] [id number] Gage Ortega PA-C [address] [facility], [address] [place] [address] BCC (basal cell carcinoma), shoulder (Primary Dx) Social History Tobacco Use Types Packs/Day Years Used Date Smoking Tobacco: Former Smokeless Tobacco: Never Alcohol Use Standard Drinks/Week Comments No 0 (1 standard drink = 0.6 oz pur e alcohol) Sex and Gender Information Value Date Recorded Sex Assigned at Not on file Gender Identity Not on file Sexual Orientation Not on file documented as of this encounter Discharge Diagnoses Diagnosis 173.61 BASAL CELL CARCINOMA OF SKIN OF UPPER LIMB, INCLUDING SHOULDER[ICD-9-CM] 702.0 ACTINIC KERATOSIS[ICD-9-CM] documented in this encounter Patient Instructions * Patient Instructions* Gage Ortega PA - 12/27/2013 8:06 EDT How to Care for Your Wound After It's Treated With DERMABOND Topical Skin Adhesive DERMABOND Topical Skin Adhesive (2-octyl cyanoacrylate) is a sterile, liquid, skin adhesive that holds wound edges together. The film will usually remain in place for 5 to 10 days, then, naturally slough (fall) off your skin. The following will answer some of your questions and provide instructions for proper care for your wound while it is healing: CHECK WOUND APPEARANCE ?? Some swelling, redness and pain is common with all wounds and normally will go away as the woundheals. If swelling, redness or pain increase or if the wound feels warm to touch, contact a doctor.If the wound edges reopen or separate, contact a doctor. BANDAGING ?? If bandaged, keep the bandage dry. ?? Replace the dressing daily until the adhesive film has fallen off or if it should become wet unless otherwise instructed by the physician. ?? Do not scratch, rub, or pick at the DERMABOND adhesive film. This may loosen the film before your wound is healed. ?? Do not place tape directly over the DERMABOND adhesive film because removing the tape may also remove film. ?? Protect the wound from prolonged exposure to sunlight or tanning lamps while the film is in place. TOPICAL MEDICATIONS ?? Do not apply liquid or ointment medications or any other product to your wound while the DERMABOND adhesive film is in place. This may loosen the film before your wound is healed. KEEP WOUND DRY AND PROTECTED ?? Protect your wound from repeat injury until the skin has had sufficient time to heal. ?? You may occasionally and briefly wet your wound in the shower or bath. Do not soak and scrub your wound, do not swim, and avoid periods of heavy perspiration until the DERMABOND adhesive has naturally fallen off. After showering or bathing, gently blot your wound dry with a soft towel. If a protective dressing is being used, apply a fresh, dry bandage, keeping tape off the DERMABOND adhesive film. ?? Apply a clean, dry bandage over the wound if necessary to protect the wound. If you have any questions or concerns about this product, please consult your doctor. [facility] EXCISIONAL WOUND CARE INSTRUCTIONS The DRESSING/BANDAID should remain in place for 24 hours. You may shower or bathe after 24 hours; remove the bandage and replace it after the shower. DISCOMFORT: Expect some discomfort. Extra-Strength Tylenol, taken as directed by the php mysql web developer, will help relieve pain. If the pain is severe please call the office. BLEEDING: You may notice some blood on the edges of the dressing the first day - this is NORMAL. Ifthe bleeding soaks through the dressing, remove the dressing, and apply firm, steady pressure with a moist clean wash cloth for fifteen minutes. If the bleeding stops, redress the wound, if not, callour office at . ACTIVITY: Relax and limit your physical activity for the first 48 hours after surgery. Also, if thesurgery was on the face or scalp, keep your head elevated. Your provider may ask you to limit activity for a longer period of time. APPEARANCE: There may be swelling and bruising around the wound, especially near the eyes. Some redness is normal, but the wound should not be red, hot and tender. If the wound becomes increasingly inflamed, warm, or drains pus, please call our office. WOUND CARE: ?? Wash hands with soap and water before changing the dressing. ?? Change the dressing daily and when it becomes wet. Clean the wound daily with mild soap and water. You may gently loosen any crusts with a cotton swab. The wound may be slightly tender and may bleed a small amount. A small amount of discharge is normal. Apply a thin layer of sterile petroleum jelly over the wound. Cover the wound with a Telfa (non-stick) dressing or bandage. It is important to keep the wound covered. If your sutures require removal, you will receive specific instructions regarding when and where tohave them removed. CONTACT THE OFFICE IF YOU EXPERIENCE: ?? increased redness ?? warmth to touch ?? increased pain ?? drainage with a foul odor ?? rapid swelling of the wound ?? fever or chills Please call our office or . Recommendations for Sun Protection Ultraviolet (UV) radiation is a known carcinogen (cancer-causing agent) and is primarily responsible for most skin cancers, including Basal Cell Carcinoma, Squamous Cell Carcinoma, and many Melanomas. UV radiation also rapidly ages the skin, leading to wrinkles, uneven color, and poor texture. Minimizing UV exposure has been shown in multiple studies to decrease the likelihood of developing cancers and pre-cancers of the skin, as well as improve overall appearance. To minimize UV exposure: 1) Avoid exposure to sunlight during the middle of the day (10am to 4pm). Seek shade when outside during these hours. Limit outdoor activities to street light repairer helper and/or evening hours when the sunlight is less intense. Remember that UV is reflected from water and snow, and can pass through window glass. It is still possible to get burned during cloudy weather and in the winter months. You can check the forecast for the UV Index in your area at most weather sites online. If the UV index is 3 or higher, sun protection/avoidance is recommended. 2) Wear protective clothing. Hats with wide brims that cover the ears and neck, sunglasses (sun exposure increases your risk for cataracts), long-sleeved shirts, long pants, and closed-top shoes offer good protection. Many makers of outdoor clothing test their fabrics for UV Protection Factor (UPF), which is a guide to the level of protection a particular item of clothing should provide. In general, loose weaves (Cotton) and sow farm technician-colored fabrics offer less protection than tighter weaves or darker/thicker fabrics. It is possible to get a sunburn through clothing, especially if it is wet. 3) Use sunscreen on exposed areas. Choose a sunscreen that has a Sun Protection Factor (SPF) of 30+or higher. Apply the sunscreen generously (so much that you can barely rub it in) to exposed areas 30 minutes before sun exposure. Reapply every 2-3 hours, especially if you are in water or sweating.If you tend to break out from sunscreen, choose a sunscreen designed for Sensitive Skin and/or one with physical blocking agents, such as Zinc Oxide and Titanium Dioxide. For vigorous activity, look for Sport sunscreens, which are resistant to sweating. 4) Avoid artificial sources of UV, such as tanning beds or sun lamps. The UV emitted by these devices is just as damaging, if not more so, than natural sunlight. There is a well-documented increase in the incidence of all common skin cancers in frequent tanning bed users. Other considerations: Vitamin D: Exposure to UV light is one of the ways your body gets Vitamin D, a necessary nutrient. Other sources are from the diet and/or dietary supplements. If you are actively avoiding the sun, itmay be advisable to discuss Vitamin D supplementation with your Primary Care Provider (PCP). In general, taking a supplement of 1,000 to 2,000 International Units (IU) of Vitamin D3 is safe and well-tolerated in individuals who get minimal sun exposure and have normal kidney function. However, moreor less Vitamin D may be recommended, depending on your individual needs, and the use of such supplements should be discussed with your PCP. For more information about sun protection and skin cancer: www.skincancer.org Recommended sunscreens: Chemical sunscreen Neutrogena Ultra Sheer Dry Touch (helioplex) Aveeno (same sunscreen as in Neutrogena) Coppertone Sport La Tammy-Posay Anthelios (mexoryl -good UVA and UVB) Vichy (mexoryl - available in Jennifer) Gel formulations good for hair bearing skin Bullfrog Alcohol based - goes on quickly and good for skin with hair Solbar Physical sunblock good for sensitive skin (titanium dioxide and zinc oxide chemical/fragrance free) Blue Lizard sensitive COTZ TiZO (comes in tinted form) Neutrogena pure and free baby or sensitive Recommended sun protection clothing websites www.sunprecautions.com www.coolibar.[employer] www.FantasyHub.[employer] www.Tailwind.[employer] documented in this encounter Progress Notes * Gage Ortega PA - 12/27/2013 0803 EDT Images from the original note were not included. PRE-OPERATIVE SURGERY EVALUATION Chief Complaint Patient presents with ??? Basal Cell Carcinoma left shoulder SUBJECTIVE Ms. Coe presents today because she has a basal cell carcinoma on her left shoulder. She notes that this lesion has been present for about 1 year, and reports bleeding and slow growth. Her risk factors for skin cancer include avid outdoor lifestyle and blue eyes and fair skin. She has no other concerns in regards to her skin. RISK FACTORS: Pacemaker/ICD: None Anticoagulants: motrin, aleve Total joint replacements/valves: None Allergies: gabapentin Immunosuppression: None OBJECTIVE The patient is a well appearing 48 y.o.-year-old female sitting comfortably on the examination table. Cutaneous examination of the affected area in the office today revealed a 1.1 cm x 1.0 cm pearly and pink, patch located on the left shoulder. PATHOLOGY SKIN OF SHOULDER, LEFT, SHAVE BIOPSY: - Basal cell carcinoma, nodular type. - Lesion extends to base of biopsy specimen ASSESSMENT basal cell carcinoma, left shoulder. Recommend excision today. PLAN 1) I recommended linear excision with layered closure for treatment today. We discussed the common risks associated with this type of procedure, including bleeding, infection, and possibly poor scarring. We also discussed the various options for treatment. After confirmation of patient's name and date of , site of procedure, and procedure indicated, consent was obtained. 2) Procedure note follows. Follow up for sutures was made if needed, and routine skin evaluation was recommended. 3) The nature of sun-induced photo-aging and skin cancers is discussed. Sun avoidance, protective clothing, and the use of 30-SPF and above sunscreens is advised. Observe closely for skin damage/changes, and call if such occurs. LINEAR EXCISION AND LAYERED CLOSURE PATIENT INFORMATION: Daphne Coe : MRN: [id number] PROCEDURE DATE: 12/27/2013 SURGEON: NIDIA Nuno RENAL TECHNICIAN: Judi Draper MA LOCATION: left shoulder PREOPERATIVE DIAGNOSIS: Basal cell carcinoma LESION SIZE: 1.1 x 1.0 cm MARGIN PER SIDE: 0.2 cm TOTAL EXCISION DIAMETER: 1.5 x 1.4 cm INDICATIONS: The indication, risks, benefits and alternatives to this procedure were discussed in detail with the patient and all questions were answered. The patient had no contraindications to surgery with local anesthesia. Informed consent was obtained in writing. PROCEDURE: Patient position: supine Anesthesia: 1% lidocaine with epinephrine 1:100,000 local infiltration Prep: Chlorhexidine The patient was brought to the operative suite. The lesion was identified, prepped and draped in the usual sterile fashion. Following complete anesthesia, the skin was incised in a fusiform fashion to the level of the subcutaneous fat with a number 15 surgical blade. The wound was undermined as needed with care to avoid functionally important nerves and vessels. Hemostasis was achieved with spot electrocoagulation. The wound edges were approximated with 4.0 Monocryl (poliglecaprone 25) buried interrupted sutures at the level of the subcutis. The epidermis was approximated with 5.0 Prolene (polypropylene) and cyanoacrylate tissue glue. The final wound length was 4.5 centimeters. The wound edges were cleansed and a sterile dressing was applied. Verbal and written wound care instructions were given. The patient tolerated the procedure well and left the operating suite in excellent condition. The surgical specimen was submitted to pathology for histologic evaluation. POSTOPERATIVE DIAGNOSIS: Basal cell carcinoma FINAL PROCEDURE: Excision and Linear Repair BLOOD LOSS: minimal OPERATIVE TIME: 30 minutes COMPLICATIONS: None CRYOSURGERY PROCEDURE NOTE PATIENT INFORMATION: Daphne Coe : MRN: [id number] PROVIDER: INDIA Nuno The indication, risks, benefits and alternatives to this procedure were discussed in detail with the patient and questions were answered. The below noted lesions were then destroyed with liquid nitrogen cryosurgery using two freeze-thaw cycles. The expected healing course was discussed, and it was noted that sometimes lesions do not fully resolve, and cryosurgery can cause a white spot or a scar.Verbal wound care instructions were given. SITE/LESION TYPE/DIAGNOSIS: Lesion(s) A: Location: left medial cheek Lesion Type/Diagnosis: 1 actinic keratosis(es) NIDIA Nuno [facility] * Judi Draper - 12/27/2013 0803 EDT Patient Education Topic: Wound care ?Method: Handout, Demonstration and Verbal ?Taught to: Patient ?Barriers: None ?Outcomes: independent ?Signature: Judi Draper 12/27/2013 8:03 ?? documented in this encounter Plan of Treatment Not on file documented as of this encounter Procedures Procedure Name Priority Date/Time Associated Diagnosis Comments SURGICAL PATHOLOGY Routine 12/27/2013 11 :42 EDT documented in this encounter Results * SURGICAL PATHOLOGY (12/27/2013 11:42 EDT) Pathology Report: SURGICAL PATHOLOGY REPORT Reports generated via electronic interface contain original data; however they are lacking the format of the original report. Caution should be taken when reading/interpreti ng unformatted reports. Name: ? DAPHNE COE ? Accession #: ? [id number] ? : ? 1965 (Age: 48) ??F ? Collect Date: ? 12/27/2013 ? Location: ? DERM ? Receive Date: ? 12/27/2013 ? Provider: GAGE JACOB Copy to: DELILAH REDDY MD ? Final Pathologic Diagnosis: SKIN OF SHOULDER, LEFT, EXCISION: - Epidermal reparative change and dermal scar. - No residual basal cell carcinoma identified. ?? Document reviewed and electronically signed by: GINA MABRY MD Report ??Date: 12/28/2013 13:31 By the signature above, the attending physician certifies that he/she has personally conducted a gross and/or microscopic examination of the described specimens and rendered or confirmed the above diagnosis. Specimen(s) Received: Left shoulder Clinical History: BCC (); clinical diagnosis code: 173.61 Gross Description: ? Received in formalin labelled with proper patient identification (initials H, M) and left shoulder is an unoriented elliptical excision of soler-white skin (3.9 x 1.3 cm and is excised to a depth of 0.4 cm). There is a central circular pink-soler scaled well healed previous biopsy site that measures 0.5 x 0.5 cm. The margins are inked. The specimen is serially sectioned and entirely submitted as 1 through 4 central sections and 5 tips, reverse en face. Monica Ramila 12/27/2013 01:20 PM End of Report ILYA RANGEL 12/27/2013 11:4 2 EDT 12/27/2013 11:42 EDT Gage Ortega PA-C [facility] Organization Address City/State/ZIP Co de Phone Number ILYA RANGEL [address] [place] [address] documented in this encounter Visit Diagnoses Diagnosis BCC (basal cell carcinoma), shoulder- Primary Basal cell carcinoma of skin of upper limb, including shoulder documented in this encounter Care Teams Direct Mail Clerk Relationship Specialty Start Date End Date Keiko Reddy MD [address] [phone] PCP - General 01/05/11 documented as of this encounter
--- OUTSIDE RECORDS SUMMARY | 2023-12-15 01:13 | XMS_ITS | Encounter Summary ---
Author Organization [facility] Address [address] [place] [address] Care Team Providers Care Supervisor Shed Workers Name Role Phone Keiko Reddy MD Primary Care Provider [phone] Reason for Referral * Radiology Services (Routine) - Closed Specialty Diagnoses / Procedures Referred By Marie diaz Referred To Contact Diagnoses Right shoulder pain Procedures MR SHOULDER Bandar Albert MD [address] [place] [phone] Referral ID Status Reason Start Date Expiration Date Visits Re quested Visits Authorized [id number] Closed 02/20/2014 05/21/2014 1 1 Encounter Details Date Type Department Care Team (Late st Contact Info) Description 02/19/2014 Orders Only [facility] Sports Medicine Program - [address] [address] Bandar Albert MD [address] [place] [phone] Right shoulder pain (Primary Dx) Social History Tobacco Use Types [...] as of this encounter Plan of Treatment Scheduled Orders Name Type Priority Associated Diagnoses Orde r Schedule MR SHOULDER Imaging Routine Right shoulder pain Ordered: 02/19/2014 documented as of this encounter Visit Diagnoses Diagnosis Right shoulder pain- Primary Pain in joint, shoulder region documented in this encounter Care Teams Supervisor Shed Workers Relationship Specialty Start Date End Date Keiko Reddy MD [address] [phone] PCP - General 01/05/11 documented as of this encounter
--- OUTSIDE RECORDS SUMMARY | 2023-12-15 01:13 | XMS_ITS | Encounter Summary ---
Author Organization [facility] Address [address] [place] [address] Care Team Providers Care Recycling Attendant Name Role Phone Keiko Reddy MD Primary Care Provider [phone] Encounter Details Date Type Department Care Team (Late st Contact Info) Description 10/18/2013 Results Only [facility] Laboratory Services - [facility] ([facility]) [address], [place] [phone] Keiko Reddy MD 8 [facility] [address] [place] [address] Social History Tobacco Use Types Packs/Day Years Used Date Smoking Tobacco: Former Alcohol Use Standard Drinks/Week Comments Yes 0 (1 standard drink = 0.6 oz pur e alcohol) Sex and Gender Information Value Date Recorded Sex Assigned at Not on file Gender Identity Not on file Sexual Orientation Not on file documented as of this encounter Plan of Treatment Pending Results Name Type Priority Associated Diagnoses Date /Time HEMAGRAM AND DIFFERENTIAL Lab Routine 10/18/2013 12:25 EDT documented as of this encounter Procedures Procedure Name Priority Date/Time Associated Diagnosis Comments VITAMIN D (25,OH) Routine 10/18/2013 12: 25 EDT DIFFERENTIAL Routine 10/18/2013 12:25 EDT COMPLETE BLOOD COUNT Routine 10/18/2013 12:25 EDT TSH Routine 10/18/2013 12:25 EDT VITAMIN B12 Routine 10/18/2013 12:25 EDT COMPREHENSIVE METABOLIC PANEL (CMP) Routine 10/18/2013 12:25 EDT documented in this encounter Results * DIFFERENTIAL (10/18/2013 12:25 EDT) % Neutrophils 67.3 45.5 - 79.7 % [facility] % Lymphocytes 24.9 15.0 - 46.8 % [facility] % Monocytes 6.6 1.8 - 12.0 % [facility] % Eosinophils 0.6 0.6 - 6.9 % [facility] % Basophils 0.6 0.2 - 1.4 % [facility] ABS Neutrophils 5.00 2.20 - 8.85 K/cmm [facility] ABS Lymphs 1.85 1.09 - 3.30 K/cmm [facility] Monocytes 0.49 0.1 - 0.8 K/cmm [facility] Eosinophils 0.05 0.03 - 0.61 K/cmm [facility] ABS Basophils 0.05 0.01 - 0.11 K/cmm [facility] Type of Diff: Automated [facility] 10/18/2013 12:2 5 EDT 10/18/2013 19:07 EDT Keiko Reddy MD HEMATOLOGY & PF4 ORD ERABLES [facility] [address] [place] [address] * (ABNORMAL) HEMAGRAM (10/18/2013 12:25 EDT) WBC 7.43 4.0 - 12.4 K/cmm [facility] RBC 4.41 3.86 - 5.04 M/cmm [facility] Hemoglobin 14.8 11.6 - 15.2 gm/dl [facility] HCT 42.2 34.9 - 44.4 % [facility] MCV 96 81 - 98 fl [facility] MCH 33.6(H) 26.7 - 33.3 pg [facility] MCHC 35.0 32.1 - 35.9 gm/dl [facility] PLT 250 141 - 320 K/cmm [facility] RDW-CV 13.4 11.7 - 14.6 % [facility] 10/18/2013 12:2 5 EDT 10/18/2013 19:07 EDT Keiko Reddy MD HEMATOLOGY & PF4 ORD ERABLES Performing Organization Address [facility] Co de Phone Number [facility] [address] [place] [address] * VITAMIN D (25,OH) (10/18/2013 12:25 EDT) 25OH Vitamin D Tot 64.7 ng/ml [facility] Comment: Reference Range: Deficient = <10 ng/ml Insufficient = 10-30 ng/ml Sufficient = 30-100 ng/ml Toxic = >100 ng/ml 10/18/2013 12:2 5 EDT 10/18/2013 19:07 EDT Keiko Reddy MD CHEMISTRY & BLOOD GA S ORDERABLES Performing Organization Address [facility] de Phone Number [facility] [address] [place] [address] * TSH (10/18/2013 12:25 EDT) TSH 1.49 0.35 - 5.00 uIU/ml [facility] 10/18/2013 12:2 5 EDT 10/18/2013 19:07 EDT Keiko Reddy MD CHEMISTRY & BLOOD GA S ORDERABLES Performing Organization Address [facility] Co de Phone Number [facility] [address] [place] [address] * (ABNORMAL) COMPREHENSIVE METABOLIC PANEL (CMP) (10/18/2013 12:25 EDT) Potassium 4.4 3.5 - 5.0 mEq/L [facility] Sodium 141 136 - 145 mEq/L [facility] Chloride 103 96 - 110 mEq/L [facility] CO2 28 24 - 32 mEq/L [facility] Total Alkaline Phosphatase 133(H) 38 - 126 U/L [facility] Bilirubin, Total 0.6 <1.4 mg/dl [facility] AST 61(H) 15 - 46 U/L [facility] ALT 72(H) 9 - 52 U/L [facility] Albumin 4.6 3.4 - 4.9 g/dl [facility] Total Protein 7.3 6.5 - 8.3 g/dl [facility] Creatinine 0.70 0.52 - 1.04 mg/dl [facility] GFR, Calculated >60 >60 ml/min/1.7 3m2 [facility] BUN 8(L) 10 - 26 mg/dl [facility] Calcium 10.2 8.5 - 10.5 mg/dl [facility] Calculated Calcium 10.0 8.5 - 10.5 mg/dl [facility] Glucose, Serum 82 70 - 100 mg/dl [facility] Fasting? No [facility] 10/18/2013 12:2 5 EDT 10/18/2013 19:07 EDT Keiko Reddy MD CHEMISTRY & BLOOD GA S ORDERABLES Performing Organization Address City/[facility] Co de Phone Number [facility] [address] [place] [address] * (ABNORMAL) VITAMIN B12 (10/18/2013 12:25 EDT) Vitamin B-12 1,893(H) 211 - 911 pg/ml [facility] 10/18/2013 12:2 5 EDT 10/18/2013 19:07 EDT Keiko Reddy MD CHEMISTRY & BLOOD GA S ORDERABLES Performing Organization Address City/[facility]/ZIP Co de Phone Number [facility] [address] [place] [address] documented in this encounter Visit Diagnoses Not on filedocumented in this encounter Care Teams Recycling Attendant Relationship Specialty Start Date End Date Keiko Reddy MD [address] [phone] PCP - General 01/05/11 documented as of this encounter
--- OUTSIDE RECORDS SUMMARY | 2023-12-15 01:13 | XMS_ITS | Encounter Summary ---
Author Organization [facility] Address [address] [place] [address] Care Team Providers Care Maintenance Shop Clerk Name Role Phone Keiko Reddy MD Primary Care Provider [phone] Reason for Visit * Reason Comments New Patient Visit Patient has a lesion on left shoulder x 6 months, a lesion on the left inner thigh x 1 year, and a lesion on the left cheek. Patient also has a lump under her right arm. Encounter Details Date Type Department Care Team (Late st Contact Info) Description 11/28/2013 16:00 EDT Office Visit [facility] Dermatology [address]th [address] [phone] Justin Blue MD [address] [facility], [address] [place] [address] Neoplasm of unspecified nature of bone, soft tissue, and skin (Primary Dx); Seborrheic keratosis Social History Tobacco Use Types Packs/Day Years Used Date Smoking Tobacco: Former Smokeless Tobacco: Never Alcohol Use Standard Drinks/Week Comments No 0 (1 standard drink = 0.6 oz pur e alcohol) Sex and Gender Information Value Date Recorded Sex Assigned at Not on file Gender Identity Not on file Sexual Orientation Not on file documented as of this encounter Discharge Diagnoses Diagnosis 239.2 BONE/SKIN NEOPLASM NOS[ICD-9-CM] documented in this encounter Patient Instructions * Patient Instructions* Phan Joel MD - 11/28/2013 15:38 EDT DERMATOLOGY WOUND CARE INSTRUCTIONS FOR SKIN BIOPSY The DRESSING/BANDAID should remain in place for 24 hours. You may shower or bathe after 24 hours; remove the bandage and replace it after the shower. DISCOMFORT: Extra-Strength Tylenol, as directed by commutator operator, usually relieves any pain you may have. BLEEDING: You may notice some blood on the edges of the dressing the first day and this is NORMAL. If the bleeding soaks through the dressing, remove the dressing, and apply firm, steady pressure with a moist clean wash cloth for fifteen minutes. If the bleeding stops, redress the wound, if not, call our office at . ACTIVITY: You may resume normal activity in 1 day unless instructed otherwise. WOUND CARE: ?? Wash hands with soap [...] is important to keep the wound covered. CONTACT THE OFFICE IF YOU EXPERIENCE: ?? [...] during these hours. Limit outdoor activities to lead ramp agent and/or evening hours when the sunlight is [...] provide. In general, loose weaves (Cotton) and metal fabricating supervisor-colored fabrics offer less protection than tighter weaves [...] sensitive Recommended sun protection clothing websites www.sunprecautions.com www.coolibar.Conversion Sound www.[employer] www.PhotoRocket.[employer] documented in this encounter Progress Notes * Phan Joel MD - 11/28/2013 1537 EDT Dermatology Outpatient Visit Note Chief Complaint Patient presents with ??? New Patient Visit Patient has a lesion on left shoulder x 6 months, a lesion on the left inner thigh x 1 year, and a lesion on the left cheek. Patient also has a lump under her right arm. Last Dermatology office visit: New patient Subjective: Ms. Coe is a 48 y.o. female who presents for new evaluation and treatment for lesion on her left shoulder that has been present for > 1 year. The papule is asymptomatic except it oozes intermittently. She has not treated the area w/ any topical agents. She has no personal history ofskin cancer and she is adopted so she is unsure of her FH. She uses regular sun protection w/ at least SPF 30 and reapplies twice daily. She has no other cutaneous complaints or concerns at this time. Skin cancer risk factors include: schroeder type I or II skin, avid outdoor lifestyle and blue eyes and fair skin For full Medical, Surgical, Family, and Social histories, please see the History section of this encounter in the electronic chart which I have personally reviewed. For Review of Systems, Medications and Allergies, please see those sections of this encounter in the electronic chart which I have also reviewed. She has a current medication list which includes the following prescription(s): amitriptyline, bupropion, citalopram, hydrocodone-acetaminophen, ibuprofen, lorazepam, and naproxen sodium. She is allergic to gabapentin. Objective: VS: There were no vitals taken for this visit. Ms. Coe is healthy, well developed, well-nourished and in no acute distress female sitting on the examination table with a normal affect. She is alert and oriented to person, place and time. She has Schroeder type II skin. Cutaneous focused exam of the face, neck, arms, and back was performed.The examination was normal with the addition of the following comments: 1. Left shoulder - 7mm x 5mm pink, pearly papule w/ overlying telangiectasias 2. Left medial thigh - very thin soler, warty plaque Assessment: Daphne was seen today for new patient visit. Diagnoses and associated orders for this visit: Neoplasm of unspecified nature of bone, soft tissue, and skin: BCC vs SCC vs other. Will biopsy to confirm diagnosis. Seborrheic keratosis (left medial thigh) Plan: 1. Shave biopsy of suspected BCC on left shoulder. Will call w/ pathology and schedule additional intervention if necessary 2. Reassurance provided about benign nature of SKs 3. The nature of sun-induced photo-aging and skin cancers is discussed. Sun avoidance, protective clothing, and the use of 30-SPF sunscreens is advised. Observe closely for skin damage/changes, and call if such occurs. She will f/u in 1 year or in the interim should problems arise. Phan Joel MD 11/28/2013 16:07 Attestation Statement: I saw and examined the patient with the resident/fellow. I agree with the findings and plan of care documented in the resident's/fellow's note. I was present for the entire procedure. Justin Blue MD Brief Procedure Note: SHAVE BIOPSY PATIENT INFORMATION: Daphne Coe : MRN: [id number] SURGEON: Phan Joel MD The indication, risks, benefits and alternatives to this procedure were discussed in detail with the patient and all questions were answered. Informed consent was obtained in writing. PROCEDURE NOTE Specimen A Procedure: Tangential Shave Indication: Diagnostic Biopsy Site: left shoulder Anesthesia: 1% lidocaine with epinephrine 1:100,000 local infiltration Prep: Alcohol The lesion was prepped as above and locally anesthetized. The specimen was removed by tangential shave using a Dermablade??. Hemostasis was achieved with pressure and/or aluminum chloride. The wound was cleansed with alcohol and a sterile dressing was applied over Petrolatum ointment. Verbal and written wound care instructions were given.The specimen was submitted to pathology for histological evaluation. * Cas Michel - 11/28/2013 1530 EDT Review of Systems Constitutional: Positive for fatigue. Negative for fever and unexpected weight change. HENT: Negative for mouth sores. Eyes: Negative for pain. Respiratory: Negative for cough and shortness of breath. Cardiovascular: Negative for chest pain and palpitations. Gastrointestinal: Negative for nausea, vomiting, abdominal pain, diarrhea, constipation and blood in stool. Genitourinary: Negative for dysuria, frequency and hematuria. Musculoskeletal: Positive for arthralgias. Negative for myalgias, joint swelling and muscle stiffness in the morning. Skin: Negative for rash. Neurological: Negative for numbness and headaches. Endo/Heme/Allergies: Does not bruise/bleed easily. Psychiatric/Behavioral: Negative for sleep disturbance. The patient is not nervous/anxious. Cas Michel 15:31 11/28/2013 Outside Parts Salesman, Dermatology documented in this encounter Plan of Treatment Not on file documented as of this encounter Procedures Procedure Name Priority Date/Time Associated Diagnosis Comments SURGICAL PATHOLOGY Routine 11/28/2013 11 :42 EDT documented in this encounter Results * SURGICAL PATHOLOGY (11/28/2013 11:42 EDT) Pathology Report: SURGICAL PATHOLOGY REPORT Reports generated via electronic interface contain original data; however they are lacking the format of the original report. Caution should be taken when reading/interpreti ng unformatted reports. Name: ? DAPHNE COE ? Accession #: ? [id number] ? : ? 1965 (Age: 48) ??F ? Collect Date: ? 11/28/2013 ? Location: ? DERM ? Receive Date: ? 11/29/2013 ? Provider: JUSTIN BLUE MD Copy to: PHAN JOEL MD ? Final Pathologic Diagnosis: SKIN OF SHOULDER, LEFT, SHAVE BIOPSY: - Basal cell carcinoma, nodular type. ??- Lesion extends to base of biopsy specimen. Document reviewed and electronically signed by: GINA MABRY MD Report ??Date: 11/30/2013 13:13 By the signature above, the attending physician certifies that he/she has personally conducted a gross and/or microscopic examination of the described specimens and rendered or confirmed the above diagnosis. Specimen(s) Received: Left shoulder Clinical History: Pearly pink papule w/pigment at periphery x1 yr, DDx: ??BCC vs SCC vs other; clinical diagnosis code: 239.2 Gross Description: ? Received in formalin labelled with proper patient identification (initials H, M) and left shoulder is a shave biopsy of soler-white skin (0.8 x 0.7 cm). There is a central irregular soler-haddad smooth focally scaled papule that measures 0.5 x 0.5 x 0.2 cm. ??Trisected and submitted in 1. Monica Mcgrath 11/29/2013 12:29 PM End of Report [facility] 11/28/2013 11:4 2 EDT 11/29/2013 11:42 EDT Justin Blue MD PATHOLOGY ORDERABLES [facility] [address] [place] [address] documented in this encounter Visit Diagnoses Diagnosis Neoplasm of unspecified nature of bone, soft tissue, and skin- Primary Seborrheic keratosis Other seborrheic keratosis documented in this encounter Care Teams Maintenance Shop Clerk Relationship Specialty Start Date End Date Keiko Reddy MD 8 [facility] [address] [place] [phone] PCP - General 01/05/11 documented as of this encounter
--- OUTSIDE RECORDS SUMMARY | 2023-12-15 01:13 | XMS_ITS | Encounter Summary ---
Author Organization [facility] Address [address] [place] [address] Care Team Providers Care Community Reinvestment Act Officer Name Role Phone Keiko Reddy MD Primary Care Provider [phone] Encounter Details Date Type Department Care Team (Latest Contact Info) Description 03/22/2012 15:27 EDT - 03/22/2012 15:28 EDT Hospital Encounter [address] [address] Keiko Reddy MD 8 [facility] [address] [place] [phone] Discharge Disposition: Home or Self Care Social [...] on filedocumented in this encounter Care Teams Community Reinvestment Act Officer Relationship Specialty Start Date End Date Keiko Reddy MD [address] [phone] PCP - General 01/05/11 documented as of this encounter
--- OUTSIDE RECORDS SUMMARY | 2023-12-15 01:13 | XMS_ITS | Encounter Summary ---
Author Organization [facility] Address [address] [place] [address] Care Team Providers Care Fish And Wildlife Warden Name Role Phone Keiko Reddy MD Primary Care Provider [phone] Reason for Visit * Reason Onset Date Comments Other 02/22/2014 Encounter Details Date Type Department Care Team (Late st Contact Info) Description 02/22/2014 Telephone [facility] Sports Medicine Program - [address] [address] Bandar Albert MD [address] [place] [phone] Other Social History Tobacco Use Types Packs/Day Years [...] encounter Miscellaneous Notes * Telephone Encounter - Radha Cannon - 02/22/2014 5329 EDT Tried to call patient today to notify her that her MRI has been authorized, patient did not answer and does not have VM set up, will try again tomorrow to try to coordinate a time for her to get her MRI done at [facility]. documented in this encounter Plan of Treatment Not on file documented as of this encounter Visit Diagnoses Not on filedocumented in this encounter Care Teams Fish And Wildlife Warden Relationship Specialty Start Date End Date Keiko Reddy MD [address] [phone] PCP - General 01/05/11 documented as of this encounter
--- OUTSIDE RECORDS SUMMARY | 2023-12-15 01:13 | XMS_ITS | Encounter Summary ---
Author Organization [facility] Address [address] [place] [address] Care Team Providers Care Community Health Outreach Worker Name Role Phone Keiko Reddy MD Primary Care Provider [phone] Encounter Details Date Type Department Care Team (Late st Contact Info) Description 02/24/2012 Results Only [facility] Laboratory Services - [facility] ([facility]) [address] [place] [address] Keiko Reddy MD [address] [facility] [address] [place] [address] Social History Tobacco Use Types [...] Priority Date/Time Associated Diagnosis Comments CA 19-9 Routine 02/24/2012 11:38 EDT ESTRADIOL, ADULTS Routine 02/24/2012 11: 38 EDT COMPLETE BLOOD COUNT Routine 02/24/2012 11:38 EDT TSH Routine 02/24/2012 11:38 EDT HDL Routine 02/24/2012 11:38 EDT FSH Routine 02/24/2012 11:38 EDT CHOLESTEROL Routine 02/24/2012 11:38 EDT COMPREHENSIVE METABOLIC PANEL (CMP) Routine 02/24/2012 11:38 EDT documented in this encounter Results * TSH (02/24/2012 11:38 EDT) TSH 1.97 0.35 - 5.00 uIU/ml [facility] 02/24/2012 11:3 8 EDT 02/24/2012 20:29 EDT Keiko Reddy MD CHEMISTRY & BLOOD GA S ORDERABLES Performing Organization Address [facility] de Phone Number [facility] [address] [place] [address] * HDL (02/24/2012 11:38 EDT) Pathologist [facility] HDL 92 mg/dl [facility] Comment: Low:<40 Normal:40-60 Desirable: >60 02/24/2012 11:3 8 EDT 02/24/2012 20:29 EDT Keiko Reddy MD CHEMISTRY & BLOOD GA S ORDERABLES Performing Organization Address [facility] Phone Number [facility] [address] [place] [address] * FSH (02/24/2012 11:38 EDT) FSH 101.3 mIU/ml [facility] Comment: Follicular: 2-11 Mid-Cycle Peak: 3.4-35 Luteal: 1-9 Postmenopausal: 25-120 02/24/2012 11:3 8 EDT 02/24/2012 20:29 EDT Keiko Reddy MD CHEMISTRY & BLOOD GA S ORDERABLES Performing Organization Address [facility] Co de Phone Number [facility] [address] [place] [address] * ESTRADIOL, ADULTS (02/24/2012 11:38 EDT) Pathologist [facility] Estradiol <12 pg/ml [facility] Comment: By day in cycle relative to LH peak: Follicular Phase (-12 to -4 days): ??20-144 Midcycle (-3 to +2 days): ? 64-357 Luteal Phase (+4 to +12 days): ??56-214 Postmenopausal: ??0 - 32 02/24/2012 11:3 8 EDT 02/24/2012 20:29 EDT Keiko Reddy MD CHEMISTRY & BLOOD GA S ORDERABLES Performing Organization Address City/State/[facility] Co de Phone Number [facility] [address] [place] [address] * (ABNORMAL) COMPREHENSIVE METABOLIC PANEL (CMP) (02/24/2012 11:38 EDT) Pathologist [facility] Potassium 4.0 3.5 - 5.0 mEq/L [facility] Sodium 138 136 - 145 mEq/L [facility] Chloride 103 96 - 110 mEq/L [facility] CO2 27 24 - 32 mEq/L [facility] Total Alkaline Phosphatase 94 38 - 126 U/L [facility] Bilirubin, Total 0.6 0.2 - 1.3 mg/dl [facility] AST 80(H) 15 - 46 U/L [facility] ALT 115(H) 9 - 52 U/L [facility] Albumin 4.4 3.4 - 4.9 g/dl [facility] Total Protein 6.9 6.5 - 8.3 g/dl [facility] Creatinine 0.63 0.52 - 1.04 mg/dl [facility] GFR, Calculated >60 >60 ml/min/1.7 3m2 [facility] BUN 10 10 - 26 mg/dl [facility] Calcium 9.5 8.5 - 10.5 mg/dl [facility] Calculated Calcium 9.5 8.5 - 10.5 mg/dl [facility] Glucose, Serum 82 70 - 100 mg/dl [facility] Fasting? Yes [facility] 02/24/2012 11:3 8 EDT 02/24/2012 20:29 EDT Keiko Reddy MD CHEMISTRY & BLOOD GA S ORDERABLES Performing Organization Address [facility] Co de Phone Number [facility] [address] [place] [address] * CHOLESTEROL (02/24/2012 11:38 EDT) Cholesterol 229 mg/dl [facility] Comment: Desirable:<200 Borderline High:200-239 High:>xk=420 02/24/2012 11:3 8 EDT 02/24/2012 20:29 EDT Keiko Reddy MD CHEMISTRY & BLOOD GA S ORDERABLES Performing Organization Address [facility] de Phone Number [facility] [address] [place] [address] * HEMAGRAM (02/24/2012 11:38 EDT) WBC 6.39 4.0 - 12.4 K/cmm [facility] RBC 4.08 3.86 - 5.04 M/cmm [facility] Hemoglobin 13.5 11.6 - 15.2 gm/dl [facility] HCT 39.1 34.9 - 44.4 % [facility] MCV 96 81 - 98 fl [facility] MCH 33.0 26.7 - 33.3 pg [facility] MCHC 34.5 32.1 - 35.9 gm/dl [facility] PLT 235 141 - 320 K/cmm [facility] RDW-CV 12.9 11.7 - 14.6 % [facility] 02/24/2012 11:3 8 EDT 02/24/2012 20:29 EDT Keiko Reddy MD HEMATOLOGY & PF4 ORD ERABLES Performing Organization Address [facility] Co de Phone Number [facility] [address] [place] [address] * CA 19-9 (02/24/2012 11:38 EDT) Carbohydrate Ag 19-9, S 8 <35 U/mL [facility] Comment: Serum CA 19-9 concentration should not be interpreted as absolute evidence for the presence or absence of malignant disease. Assayed utilizing [employer] Immunoenzymatic technology. Values obtained by using different assay methods cannot be used interchangeably. 02/24/2012 11:3 8 EDT 02/24/2012 20:29 EDT Keiko Reddy MD CHEMISTRY & BLOOD GA S ORDERABLES [facility] [address] [place] [address] documented in this encounter Visit Diagnoses Not on filedocumented in this encounter Care Teams Community Health Outreach Worker Relationship Specialty Start Date End Date Keiko Reddy MD [address] [facility] [address] [place] [address] PCP - General 01/05/11 documented as of this encounter
--- OUTSIDE RECORDS SUMMARY | 2023-12-15 01:13 | XMS_ITS | Encounter Summary ---
Author Organization [facility] Address [address] [place] [address] Care Team Providers Care District Leader Name Role Phone Keiko Reddy MD Primary Care Provider [phone] Encounter Details Date Type Department Care Team (Latest Contact Info) Description 02/24/2012 13:56 EDT - 02/24/2012 13:57 EDT Hospital Encounter [address] [address] Keiko Reddy MD [address] [facility] [address] [place] [phone] Discharge Disposition: Home or Self Care Social [...] on filedocumented in this encounter Care Teams District Leader Relationship Specialty Start Date End Date Keiko Reddy MD [address] [facility] [address] [place] [address] PCP - General 01/05/11 documented as of this encounter
--- OUTSIDE RECORDS SUMMARY | 2023-12-15 01:14 | XMS_ITS | Encounter Summary ---
Author Organization [facility] Address [address] [place] [address] Care Team Providers Care Chalk Tester Name Role Phone Unavailable Primary Care Provider Unavailabl e Encounter Details Date Type Department Care Team (Latest Contact Info) Description 03/24/2010 16:07 EDT - 03/24/2010 16:08 EDT Hospital Encounter [facility] - Other [address] [place] [address] Keiko Reddy MD [address] [place] [address] [address] [place] [address] Discharge Disposition: Home or Self Care Social History Tobacco Use Types Packs/Day Years Used Date Smoking Tobacco: Never Assessed Sex and Gender Information Value Date Recorded Sex Assigned at Not on file Gender Identity Not on file Sexual Orientation Not on file documented as of this encounter Discharge Disposition Disposition Code Departure Means Destination Home or Self Care documented in this encounter Plan of Treatment Not on file documented as of this encounter Visit Diagnoses Not on filedocumented in this encounter
--- OUTSIDE RECORDS SUMMARY | 2023-12-15 01:14 | XMS_ITS | Encounter Summary ---
Author Organization [facility] Address [facility] [place] [address] Care Team Providers Care Book Canvasser Name Role Phone ScottyNelia Disha Primary Care Provider [phone] Reason for Visit * Reason Comments Established 3 month follow up Encounter Details Date Type Department Care Team (Late st Contact Info) Description 10/25/2023 10:20 AM EDT Office Visit [place] [address] Danita Martinez MD [facility] [place] [address] Malignant neoplasm of right ovary Social History Tobacco Use Types Packs/Day Years Used Date Smoking Tobacco: Former Cigarettes Q uit: 2000 Smokeless Tobacco: Never Comments:Only ever smoked so cially Alcohol Use Standard Drinks/Week Comments Yes 2 (1 standard drink = 0.6 oz pur e alcohol) Sex and Gender Information Value Date Recorded Sex Assigned at Not on file Gender Identity Not on file Sexual Orientation Not on file documented as of this encounter Last Filed Vital Signs Vital Sign Reading Time Taken Comments Blood Pressure 118/84 10/25/2023 9:57 AM EDT Pulse - - Temperature - - Respiratory Rate - - Oxygen Saturation - - Inhaled Oxygen Concentration - - Weight 77.6 kg (171 lb) 10/25/2023 9:57 AM EDT Height 166.4 cm (5' 5.51) 10/25/2023 9:57 AM ED T Body Mass Index 28.01 10/25/2023 9:57 AM EDT documented in this encounter Progress Notes * Danita Martinez MD - 10/25/2023 10:20 AM EDT Division [place] [address] Surveillance Visit: Patient Active Problem List Diagnosis Code Trauma T14.90XA 12/14/2017 ORIF right tibial plateau fx (Dr. Romero) S82.141A 12/14/2017 ORIF right distal radius fracture (Dr. Romero) S52.91XA, S52.201A 12/20/2017 ORIF left acetabulum for closed fracture of posterior wall of left acetabulum (Dr. Talamantes) S32.422A Postoperative anemia due to acute blood loss D62 Acute pulmonary embolus I26.99 Pulmonary embolism I26.99 Malignant neoplasm of right ovary C56.1 Subjective: Daphne Pickard returns to the office today surveillance visit. 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 Her postoperative course was uncomplicated. She has continued to feel well. Normal appetite and energy. No vaginal bleeding. No issues with her bladder or bowels. She has occasional pain on the left side, this has been persistent and stable since surgery. This is not associated with specific movements or her bowels. Shehas had increased comfort with uberlube. No new medical/surgical issues. She did have a recent scare with her horse and has been feeling very anxious about this. Objective: Vitals: 10/25/23 0957 Weight: 77.6 kg (171 lb) Height: 166.4 cm (5' 5.51) Body mass index is 28.01 kg/m??. Body surface area is 1.89 meters squared. Physical Exam Constitutional: Appearance: Normal appearance. Abdominal: General: Abdomen is flat. There is no distension. Palpations: Abdomen is soft. Tenderness: There is no abdominal tenderness. Genitourinary: Comments: Normal external genitalia (labia majora and minora, vaginal introitus, urethral meatus). Atrophic vaginal mucosa. Vaginal cuff is well healed. No visible lesions or nodularity. On bimanual exam no palpable nodules or pelvic masses. On rectovaginal exam no palpable masses or nodularity. Nothickening of the rectovaginal septum. Neurological: Mental Status: She is alert. Assessment and Plan: Daphne Pickard is a 58 y.o. 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 RTC 3 mo for ongoing surveillance. Will continue to follow CA-125 and CA19-9. DANITA MARTINEZ MD * Pilar Mtz LNA - 10/25/2023 10:20 AM EDT Examination chaperoned by MARY SOLO. 10/25/23 In the [facility]NAGER/ONC 3K clinic. @ Vitals Flowsheet Row Office Visit from 10/25/2023 in Gynecology Oncology at [facility] Weight 77.6 kg (171 lb) Height 166.4 cm (5' 5.51) BSA (Calculated - sq m) 1.89 sq meters BMI (Calculated) 28.01 BP 118/84 documented in this encounter Plan of Treatment Upcoming Encounters Date Type Department Care Team (Late st Contact Info) Description 01/31/2024 9:15 AM EDT Appointment Hematology [place] [address] 01/31/2024 10:20 AM EDT Office Visit [place] [address] Danita Martinez MD [facility] [address] 08/01/2024 11:30 AM EDT Office Visit Dermatology at [facility] [address] [place] [address] Phan Engle MD [facility] [address] [place] [address] documented as of this encounter Visit Diagnoses Diagnosis Malignant neoplasm of right ovary Malignant neoplasm of ovary documented in this encounter Care Teams Book Canvasser Relationship Specialty Start Date End Date Disha Hayden [address] [place] [address] PCP - General Family Medicine 07/15/23 documented as of this encounter
--- OUTSIDE RECORDS SUMMARY | 2023-12-15 01:14 | XMS_ITS | Encounter Summary ---
Author Organization [facility] Address [facility] [place] [address] Care Team Providers Care Mice Raiser Name Role Phone Grecia Maddox MD Primary Care Provider [phone] Encounter Details Date Type Department Care Team (Latest Contact Info) Description 10/30/2022 Travel Social History Tobacco Use Types Packs/Day Years Used Date Smoking Tobacco: Former Cigarettes Q uit: 1999 Smokeless Tobacco: Never Comments:Only ever smoked so cially Alcohol Use Standard Drinks/Week Comments Yes 2 (1 standard drink = 0.6 oz pur e alcohol) Sex and Gender Information Value Date Recorded Sex Assigned at Not on file Gender Identity Not on file Sexual Orientation Not on file documented as of this encounter Plan of Treatment Upcoming Encounters Date Type Department Care Team (Late st Contact Info) Description 01/31/2024 9:15 AM EDT Appointment Hematology [place] [address] 01/31/2024 10:20 AM EDT Office Visit [place] [address] Rebecca Small MD [facility] [place] [address] 08/01/2024 11:30 AM EDT Office Visit Dermatology at [facility] [address] [place] [phone] Phan Engle MD [facility] [address] [address] documented as of this encounter Visit Diagnoses Not on filedocumented in this encounter Care Teams Mice Raiser Relationship Specialty Start Date End Date Grecia Maddox MD [address] [place] [address] PCP - General Family Medicine 05/16/18 07/14/23 documented as of this encounter
--- OUTSIDE RECORDS SUMMARY | 2023-12-15 01:14 | XMS_ITS | Clinical Summary ---
Author Organization [facility] Address [facility] [place] [address] Care Team Providers Care Chassis Driver Name Role Phone Disha Hayden Primary Care Provider [phone] Allergies Active Allergy Reactions Criticality Noted Date Comments Gabapentin Nausea And Vomiting 01/04/2018 Medications Medication Sig Dispensed Refills Start Date End Date Status lisinopriL (Zestril) 10 mg Tablet Take 10 mg by mouth daily. 02/24/2022 Active Magtab 84 mg Tablet Sustained Release Take 1 tablet by mouth 2 times daily. 12/03/2021 Active aspirin 325 mg Tablet Take 325 mg by mouth daily. Active acetaminophen (Tylenol) 325 mg Tablet Take 2 tablets by mouth every 6 hours as needed for Pain. 90 tablet 1 04/02/2022 Active Lactobacillus acidophilus (PROBIOTIC ORAL) Take by mouth. Probiotic and prebiotic Active senna-docusate (Pericolace) 8.6-50 mg Tablet Take 1 tablet by mouth daily. Active Active Problems Problem Noted Date Diagnosed Date Malignant neoplasm of right ovary 07/24/2022 Acute pulmonary embolus 02/08/2018 Pulmonary embolism 02/08/2018 Postoperative anemia due to acute blood loss Trauma 12/14/2017 12/14/2017 ORIF right tibial plateau fx (Dr. Romero) 12/14/2017 12/14/2017 ORIF right distal radius fracture (Dr. Romero) 12/14/2017 12/20/2017 ORIF left acetabul um for closed fracture of posterior wall of left acetabulum (Dr. Talamantes) 12/14/2017 Encounters Date Type Department Care Team Description 10/28/2023 Orders Only [place] [address] Elis Warner, HAYLEY Cognitive decline; Endometrial cancer; Hx antineoplastic chemo 10/26/2023 Orders [place] [address] Noy Naylor RN Cognitive decline; Hx antineoplastic chemo 10/25/2023 10:20 AM EDT Office Visit [place] [address] Rebecca Small MD Malignant neoplasm of right ovary 10/25/2023 9:15 AM EDT - 10/25/2023 11:59 PM EDT Hospital Encounter [place] [address] Malignant neoplasm of ovary, unspecified laterality Discharge Disposition: Home 10/25/2023 Travel 10/21/2023 Orders [place] [address] Elis Warner RN Endometrial cancer; Malignant neoplasm of ovary, unspecified laterality 09/28/2023 10:15 AM EDT Office Visit Dermatology at [facility] [address] [place] [address] Phan nEgle MD [place] (actinic keratosis) 09/28/2023 Travel from Last 3 Months Family History Medical History Relation Comments Cancer Mother Relation Status Comments Mother Social History Tobacco Use Types Packs/Day Years Used Date Smoking Tobacco: Former Cigarettes Q uit: 2000 Smokeless Tobacco: Never Tobacco Cessation:Counseling Given: Not Answered Comments:Only ever smoked socially Alcohol Use Standard Drinks/Week Comments Yes 2 (1 standard drink = 0.6 oz pur e alcohol) Sex and Gender Information Value Date Recorded Sex Assigned at Not on file Gender Identity Not on file Sexual Orientation Not on file Last Filed Vital Signs Vital Sign Reading Time Taken Comments Blood Pressure 118/84 10/25/2023 9:57 AM EDT Pulse 67 07/26/2023 10:09 AM EST Temperature 36.7 ??C (98.1 ??F) 07/26/2023 10:[address] Respiratory Rate 16 07/26/2023 10:09 AM EST Oxygen Saturation 97% 07/26/2023 10:09 AM EST Inhaled Oxygen Concentration - - Weight 77.6 kg (171 lb) 10/25/2023 9:57 AM EDT Height 166.4 cm (5' 5.51) 10/25/2023 9:57 AM ED T Body Mass Index 28.01 10/25/2023 9:57 AM EDT Plan of Treatment Upcoming Encounters Date Type Department Care Team (Late st Contact Info) Description 01/31/2024 9:15 AM EDT Appointment [place] [address] 01/31/2024 10:20 AM EDT Office Visit [place] [address] Rebecca Small MD [facility] [place] [address] 08/01/2024 11:30 AM EDT Office Visit Dermatology at [facility] [address] [place] [id number] Phan Engle MD [facility] [address] [address] Health Maintenance Due Date Last Done Comments CT Colonography 1965 FIT DNA 1965 FIT 1965 Sigmoidoscopy 1965 HIV screen 08/15/1983 Hepatitis C Screening 08/15/1983 Hepatitis B vaccine (0-59 yrs) (1) 1984 Tdap adult 1984 Tetanus vaccine 1984 HPV test 08/15/1995 PAP Smear 08/15/1995 Breast Cancer Share Decision Needed 2005 Breast Cancer screening 2005 Zoster vaccine (1 of 2) 08/15/2015 Advance Directive 2020 Covid-19 Vaccine ( - 2022-2 4 season) 2023 Influenza (Flu) vaccine (1 o f 1 - Influenza standard series) 01/23/2024 Diabetes Screening (HgbA1C o r Glucose) 03/19/2025 03/19/2022, 02/07/2018, 12/22/2017, Additional history exists Colonoscopy 06/25/2027 06/25/2017, 06/25/2017 Colorectal Cancer Screening 06/25/2027 Sigmoidoscopy (10 year) with FIT yearly 06/25/2027 06/25/2017, 06/25/2017 Medical Devices Implanted Type Area Accountant Budget Device Identifier Shelf Expiration Date Model / Serial / Lot Screw,Clara,Ang ,Lck,3.5x65mm ([id number]) - [id number] Implanted:Qty : 3 on 12/14/2017 by Reinaldo Romero MD at [facility] IMPLANTS Right: Tibia [employer] - DEPUY SYNT 02.127.165 / / Bone,Crushed, Cancellous,30 cc ([id number]) (Autoreq) - [id number] Implanted:Qty : 1 on 12/14/2017 by Reinaldo Romero MD at [facility] IMPLANTS Right: [facility] 09/16/2022 PCAN30 / / [id number] Plate,Vlrdstl ,Lcp,6h,Rt,2. 4mm ([id number]) - [id number] Implanted:Qty : 1 on 12/14/2017 by Reinaldo Romero MD at [facility] IMPLANTS Right: Wrist [employer] - DE[employer] SYNT 02.111.630 / / Screw,Va,Lck, Star,2.4x20mm ([id number]) - [id number] Implanted:Qty : 3 on 12/14/2017 by Reinaldo Romero MD at [facility] IMPLANTS Right: Wrist [employer] - DEPUY SYNT 210.120 / / Screw,Va,Lck, Star,2.4x14mm ([id number]) - [id number] Implanted:Qty : 1 on 12/14/2017 by Reinaldo Romero MD at [facility] IMPLANTS Right: Wrist [employer] - DE[employer] SYNT 210.114 / / Screw,Va,Lck, Star,2.4x18mm ([id number]) - [id number] Implanted:Qty : 1 on 12/14/2017 by Reinaldo Romero MD at [facility] IMPLANTS Right: Wrist [employer] - DE[employer] SYNT 02.210.118 / / Screw,Crtx,St ap,Star,2.7x1 2mm ([id number]) - [id number] Implanted:Qty : 3 on 12/14/2017 by Reinaldo Romero MD at [facility] IMPLANTS Right: Wrist [employer] - DEPU[employer] SYNT 202.872 / / Plate,Va-Lcp, Tib,4h,Rt,87m m ([id number]) - [id number] Implanted:Qty : 1 on 12/14/2017 by Reinaldo Romero MD at [facility] IMPLANTS Right: Tibia [employer] - DE[employer] SYNT 02.127.210 / / Screw,Crtx,St ap,3.5x40mm ([id number]) - [id number] Implanted:Qty : 1 on 12/14/2017 by Reinaldo Romero MD at [facility] IMPLANTS Right: Tibia [employer] - [employer] SY[employer] 204.840 / / Screw,Clara,Ang ,Lck,3.5x32mm ([id number]) - [id number] Implanted:Qty : 1 on 12/14/2017 by Reinaldo Romero MD at [facility] IMPLANTS Right: Tibia [employer] - DE[employer] SY[employer] 02.127.132 / / Screw,Clara,Ang ,Lck,3.5x46mm ([id number]) - [id number] Implanted:Qty : 1 on 12/14/2017 by Reinaldo Romero MD at [facility] IMPLANTS Right: Tib[employer] - DE[employer] 02.127.146 / / Screw,Clara,Ang ,Lck,3.5x50mm ([id number]) - [id number] Implanted:Qty : 1 on 12/14/2017 by Reinaldo Romero MD at [facility] IMPLANTS Right: Tibia [employer] - DE[employer] SYNT 02.127.150 / / Screw,Claar,Ang ,Lck,3.5x56mm ([id number]) - [id number] Implanted:Qty : 1 on 12/14/2017 by Reinaldo Romero MD at [facility] IMPLANTS Right: Tibia [employer] - DE[employer] SYNT 02.127.156 / / Screw,Clara,Ang ,Lck,3.5x60mm ([id number]) - [id number] Implanted:Qty : 1 on 12/14/2017 by Reinaldo Romero MD at [facility] IMPLANTS Right: Tibia [employer] - DEPUY SYNT 02.127.160 / / Screw,Cncl,St ap,P-T,3.5x70 mm ([id number]) - [id number] Implanted:Qty : 1 on 12/14/2017 by Reinaldo Romero MD at [facility] IMPLANTS Right: Tibia [employer] - DEPUY SYNT 212.426 / / Screw,Crtx,St ap,2.7x32mm ([id number]) - [id number] Implanted:Qty : 1 on 12/20/2017 by Tete Talamantes MD at [facility] IMPLANTS Left: Hip [facility] 202.832 / / Screw,Crtx,St ap,2.7x26mm ([id number]) - [id number] Implanted:Qty : 1 on 12/20/2017 by Tete Talamantes MD at [facility] IMPLANTS Left: Hip [facility] 202.826 / / Plate,Recon.8 h,3.5x94mm ([id number]) - [id number] Implanted:Qty : 1 on 12/20/2017 by Tete Talamantes MD at [facility] IMPLANTS Left: Hip [facility] 245.18 / / Screw,Crtx,St ap,3.5x34mm ([id number]) - [id number] Implanted:Qty : 3 on 12/20/2017 by Tete Talamantes MD at [facility] IMPLANTS Left: Hip [facility] 204.834 / / Screw,Crtx,St ap,3.5x36mm ([id number]) - [id number] Implanted:Qty : 1 on 12/20/2017 by Tete Talamantes MD at [facility] IMPLANTS Left: Hip [facility] 204.836 / / Screw,Crtx,St ap,3.5x40mm ([id number]) - [id number] Implanted:Qty : 1 on 12/20/2017 by Tete Talamantes MD at [facility] IMPLANTS Left: Hip [facility] - [facility] 204.840 / / Screw,Crtx,St ap,3.5x28mm ([id number]) - [id number] Implanted:Qty : 1 on 12/20/2017 by Tete Talamantes MD at [facility] IMPLANTS Left: Hip [facility] - [facility] 204.828 / / Explanted Type Area Accountant Budget Device Identifier Shelf Expiration Date Model / Serial / Lot Plate,Rdctn,W irthrd Tip,1.25mm ([id number]) - [id number] Explanted:Qty : 3 on 12/14/2017 by Reinaldo Romero MD at [facility] IMPLANTS Right: Wrist [employer] - DEPUY SYNT 02.111.501 .10 / / Wire,K,Thrdd Gwre,1.7t026f m ([id number]) - [id number] Explanted:Qty : 1 on 12/20/2017 by Tete Talamantes MD at [facility] IMPLANTS Left: Hip [employer] - [employer] [place]ODNEY 292.71 / / Screw,Crtx,St ap,2.7x28mm ([id number]) - [id number] Implanted:Qty : 1 Explanted:Qty : 1 on 12/20/2017 at [facility] IMPLANTS Left: Hip [facility] - [facility] 202.828 / / Pin,Stewart,Tro c 1 Ed,Ns,[id number] ([id number]) - [id number] Explanted:Qty : 2 on 12/20/2017 at [facility] IMPLANTS Left: Hip [facility] - [facility] 292.20 / / Screw,Crtx,St ap,3.5x75mm ([id number]) - [id number] Explanted:Qty : 1 on 12/20/2017 at [facility] IMPLANTS Left: Hip [facility] 204.875 / / Screw,Crtx,St ap,3.5x38mm ([id number]) - [id number] Explanted:Qty : 1 on 12/20/2017 at [facility] IMPLANTS Left: Hip [employer] - RONALD RODNEY 204.838 / / Screw,Crtx,St ap,2.7x28mm ([id number]) - [id number] Explanted:Qty : 1 on 12/20/2017 at [facility] IMPLANTS Left: Hip [employer] - [employer]D [place]ODNEY 202.828 / / Procedures Procedure Name Priority Date/Time Associated Diagnosis Comments HC VENIPUNCTURE Routine 10/25/2023 9:35 AM EDT Malignant neoplasm of ovary, unspecified laterality COMPREHENSIVE METABOLIC PANEL (NON-FASTING) Routine 03/19/2022 10:57 AM EDT Pelvic mass in female COLONOSCOPY Routine 06/25/2017 12:40 PM EST from Last 3 Months or Most Recently Relevant to Health Maintenance Results * Cancer Antigen 125 (10/25/2023 9:35 AM EDT) CA 125 9.5 <=38.1 unit/mL [facility] Comment: CA 125 Reference Interval ??Postmenopausal: 6.2 to 31.5 U/mL. ??Premenopausal: 6.9 to 45.9 U/mL. ??Pre and Postmenopausal subjects combined: 6.4 to 38.1 U/mL. This result was generated using a Tammy Marcos immunoassay. ??Results obtained from other methods or manufacturers cannot be used interchangeably with this method. Blood 10/25/2023 9:35 AM EDT 10/25/2023 9:37 AM EDT Narrative Resulting Agency Comment Spec In Lab Rebecca Small MD CHEMISTRY ORDERABL ES [facility] [place] [address] * (ABNORMAL) Comprehensive metabolic panel (non-fasting) (03/19/2022 10:57 AM EDT) Glucose Lvl 91 65 - 199 mg/dL [facility] Comment:Diabetes: >=200 mg/d L plus symptoms BUN 11 8 - 18 mg/dL [facility] Creatinine 0.92 0.70 - 1.20 mg/dL [facility] Sodium 144 135 - 145 mmol/L [facility] Potassium 4.6 3.5 - 5.0 mmol/L [facility] Comment: Please note: ??Patients with WBC >100,000 may have falsely elevated Potassium levels. ??For accurate Potassium quantification in these patients send serum separator tube (gold top) for subsequent determinations. ??Contact the Clinical Chemistry Laboratory if there are any questions. Chloride 108(H) 98 - 107 mmol/L [facility] CO2 26 22 - 31 mmol/L [facility] Anion Gap 10 5 - 15 mmol/L [facility] Calcium 9.6 8.5 - 10.5 mg/dL [facility] Total Protein 7.1 6.1 - 8.0 g/dL [facility] Albumin 4.6 3.2 - 5.2 g/dL [facility] AST 19 0 - 30 unit/L [facility] ALT 10 0 - 30 unit/L [facility] Alk Phos 68 35 - 105 unit/L [facility] Total Bilirubin 0.3 0.2 - 1.3 mg/dL [facility] Estimated GFR 73 >=60 mL/min/1. 73 m?? [facility] Comment: This patient's estimated GFR was calculated using the 2020 CKD-EPI equation. The estimated GFR can vary from the measured GFR by up to 30% in the absence of rapidly changing kidney function. Assessment of the estimated GFR is not appropriate when creatinine concentrations are rapidly changing. For clinical situations in which a more precise estimate of GFR is necessary, consider alternative methods of GFR estimation such as a 24-hour urine creatinine clearance. Assignment of CKD stage 1-5 for patients with an eGFR near the transition point between stages may be based on clinical assessment of muscle mass and symptoms in addition to eGFR. Blood 03/19/2022 10:5 7 AM EDT 03/19/2022 11:00 AM EDT Narrative Resulting Agency Comment Spec In Lab Rebecca Small MD CHEMISTRY ORDERABL ES [facility] [place] [address] * COLONOSCOPY (06/25/2017 12:40 PM EST) COLONOSCOPY [facility] Endoscopy Procedure Date: 06/25/2017 12:40 PM ? Patient Name: Daphne Pickard ? N: [id number] ? Date of : 1965 ? Age: 51 ? Order #: [id number] ? Instrument Name: [id number] ? Procedure: ? Colonoscopy Indications: ? Screening for colorectal malignant ? neoplasm Providers: ? Kimani Rojas MD, Rajinder Fernandez. ? Tor Hernandez, Data Center Project Manager Referring MD: ?Javier Green MD Medicines: ? Midazolam 4 mg IV, Fentanyl 200 ? micrograms IV Complications: ? No immediate complications. Procedure: ? The procedure, indications, benefits, ? risks and alternatives were explained ? to the patient. Specifically ? discussed were potential ? complications including, but not ? limited to, bleeding, perforation, ? infection, missing a cancer, and ? adverse medication reactions. The ? patient was placed in the left ? lateral decubitus position, and a ? digital rectal exam was performed. ? The Colonoscope was inserted in the ? anus and under direct visualization, ? advanced to the terminal ileum. ? Careful inspection was made as the ? colonoscope was withdrawn. The ? colonoscopy was performed without ? difficulty. The patient tolerated the ? procedure well. The quality of the ? bowel preparation was evaluated using ? the BBPS ([place] Bowel Preparation ? Scale) with scores of: Right Colon = ? 3, Transverse Colon = 3 and Left ? Colon = 3 (entire mucosa seen well ? with no residual staining, small ? fragments of stool or opaque liquid). ? The total BBPS score equals 9. Scope ? withdrawal time was 10 minutes. ? Findings: ? The perianal and digital rectal examinations were ? normal. ? A few small-mouthed diverticula were found in the ? sigmoid colon. ? The terminal ileum appeared normal. ? External hemorrhoids were found during retroflexion. ? The hemorrhoids were medium-sized. ? Moderate Sedation: ? I was present during the intraservice time as ? documented by the sedation RN. Impression: ?- Diverticulosis in the sigmoid colon. ? - The examined portion of the ileum ? was normal. ? - External hemorrhoids. ? - No specimens collected. Recommendation: ?- Repeat colonoscopy in 10 years for ? surveillance. ? Attending Participation: ? I personally performed the entire procedure. ? _ Kimani Rojas MD 06/25/2017 1:44:08 PM This report has been signed electronically. Number of Addenda: 0 Note Initiated On: 06/25/2017 12:40 PM PROVATION 06/25/2017 12:4 0 PM EST Javier Green MD GENERAL SURGICAL ORD ERABLES [employer]ATION from Last 3 Months or Most Recently Relevant to Health Maintenance Advance Directives * Attempt Cardiopulmonary Resuscitation - Inpatient (Latest Code Status on File) Date Activated Date Inactivated Comments 04/02/2022 7:06 AM 04/02/2022 6:03 PM Question Answer Comments Code Status decision made by: Patient * Full Code Date Activated Date Inactivated Comments 02/08/2018 1:55 AM 02/09/2018 1:04 PM Question Answer Comments Does patient have capacity to make decision: Yes * Full Code Date Activated Date Inactivated Comments 12/24/2017 12:05 PM 02/08/2018 1:55 AM Question Answer Comments Does patient have capacity to make decision: Yes * Full Code Date Activated Date Inactivated Comments 12/14/2017 12:13 AM 12/24/2017 12:05 PM Question Answer Comments Does patient have capacity to make decision: Yes Care Teams Chassis Driver Relationship Specialty Start Date End Date Disha Hayden [address] [place] [address] PCP - General Family Medicine 07/15/23
--- OUTSIDE RECORDS SUMMARY | 2023-12-15 01:14 | XMS_ITS | Encounter Summary ---
[facility] Address [facility] [place] [address] Care Team Providers Care [employer] Counter Person Name Role Phone Grecia Maddox MD Primary Care Provider [phone] Encounter Details Date Type Department Care Team (Latest Contact Info) Description 04/25/2023 Travel Social History Tobacco Use Types Packs/Day [...] AM EDT Appointment Hematology [place] [address] 01/31/2024 10:20 AM EDT Office Visit Gy[place] [address] Rebecca Small MD [facility] DR [place] [address] 08/01/2024 11:30 AM EDT Office Visit Dermatology at [facility] [address] [place] [address] Phan Engle MD [facility] DR [facility] [place] [address] documented as of this encounter Visit Diagnoses Not on filedocumented in this encounter Care Teams [employer] Counter Person Relationship Specialty Start Date End Date Grecia Maddox MD [address] [place] [address] PCP - General Family Medicine 05/16/18 07/14/23 documented as of this encounter
--- OUTSIDE RECORDS SUMMARY | 2023-12-15 01:14 | XMS_ITS | Encounter Summary ---
Author Organization [facility] Address [facility] [place] [address] Care Team Providers Care Solar Designer/Installer Name Role Phone Disha Hayden Primary Care Provider [phone] Reason for Visit * Consultation (Routine) - Authorized Specialty Diagnoses / Procedures Referred By Marie diaz Referred To Contact Dermatology Diagnoses Basal cell carcinoma (BCC), unspecified site Disha Hayden [address] [place] [address] [facility] Dermatology [address] [place] [address] Referral ID Status Reason Start Date Expiration Date Visits Requested Visits Authorized [id number] Authorized Consult, Test & Treat PCP Updated and/or Approved 07/02/2023 07/01/2024 6 6 Encounter Details Date Type Department Care Team (Late st Contact Info) Description 07/15/2023 9:45 AM EST Office Visit Dermatology at [facility] [address] [place] [address] Joshua Quick MD [facility] [place] [address] Neoplasm of unspecified behavior of bone, soft tissue, and skin Social History Tobacco Use Types Packs/Day Years [...] as of this encounter Progress Notes * Joshua Quick MD - 07/15/2023 9:45 AM EST Images from the original note were not included. DEPARTMENT OF DERMATOLOGY Medical Dermatology Clinic Provider: Joshua Quick MD Patient's preferred name Shilpa Preferred contact method for results []Phone [x]myD-H []Letter Detailed phone message OK? Y Are there any other people with whom we may discuss your care? Jignesh Mckinnon ([facility]) Past Medical History Date, location, treatment Melanoma N Dysplastic nevi N SCC N BCC BCC, left shoulder s/p excision ~ AKs UV Exposure & Protection Other relevant past medical history +Blood clots + Cancer + High blood pressure Family History Details Melanoma ? Adopted unsure NMSC ? Adopted unsure Other relevant family history Pancreatic Cancer - mother Social History Occupation: Hobbies: Other: Pre-Procedure Screening Details Allergy to lidocaine, epinephrine, Dermabond, chlorhexidine, or adhesives N Bleeding disorder or blood thinners 325mg ASA Pacemaker, defibrillator, deep brain stimulator, cochlear implant N History of Present Illness: Daphne Pickard is a 57 y.o. Patient is new and self-referred to the clinic for a focused exam with the following concerns: - Spot on left felipe that has been present for ~ 1 month. It was bright red in the beginning, scaly,and weeping. Asymptomatic. Medications: Reviewed in eD-H Allergies: Reviewed in eD-H Skin Examination: Focused skin examination of the left felipe was normal with the exception of the findings below. Assessment/Plan #. SCCis vs Nummular Eczema - 1.3 cm thin soler pink plaque on the left felipe (Figure 1) - After review of risks and benefits, joint decision made to pursue shave biopsy today. Procedure: Skin biopsy by shave technique Location: left felipe Discussed indications for procedure and expectations including risks and benefits. Verbal consent obtained. Skin prep with alcohol. Local anesthesia with 1% lidocaine, 1/100,000 epinephrine. A sampleof the lesion was removed by shave technique to the level of the dermis and submitted to Pathology.Hemostasis obtained. There were no complications; the patient tolerated the procedure well. The wound was dressed. Post-procedure expectations, wound care and activity restrictions were reviewed. Follow-up based on pathology results. Figure 1 Photo(s) taken and charted with patient's verbal consent. RTC: Pending pathology []Note routed to dispute resolution specialist []Recall placed in scheduling system []Appointment scheduled at checkout Scribe attestation: Meghan Hankins [facility] has performed the documentation for this encounter in the presence of and acting as a scribe for Joshua Quick MD. I performed the above scribed service and agree with the accuracy of the documentation in this encounter. Reviewed and signed by: Joshua Quick MD Dermatology [facility] documented in this encounter Plan of Treatment Upcoming Encounters Date Type Department Care Team (Late st Contact Info) Description 01/31/2024 9:15 AM EDT Appointment Hematology [place] [address] 01/31/2024 10:20 AM EDT Office Visit [place] [address] Rebecca Small MD [facility] [place] [address] 08/01/2024 11:30 AM EDT Office Visit Dermatology at [address] [address] Phan Engle MD [facility] DR J[place] [address] documented as of this encounter Procedures Procedure Name Priority Date/Time Associated Diagnosis Comments SURGICAL PATHOLOGY REPORT Routine 07/15/2023 1:47 PM EST SPECIMEN TO PATHOLOGY Routine 07/15/2023 1:47 PM EST Neoplasm of unspecified behavior of bone, soft tissue, and skin documented in this encounter Results * Surgical Pathology Report (07/15/2023 1:47 PM EST) FINAL DIAGNOSIS (AP) [id number] ? Location: [facility] The signing pathologist has (i) examined the relevant preparation(s) for the specimen(s) and (ii) rendered or confirmed the diagnosis(es). . ?Surgical Pathology DIAGNOSIS L eft felipe, skin shave biopsy: - Mild ??actinic keratosis (see Discussion) Electronically signed by: ?Cash ELLISON, PhD, [facility] Verified: ??07/27/2023 8:04 ?? Dermatopathologist Performed at: ??-[facility] Dept. of Pathology, [place] [address] Tug Hand: Jenelle Valdes MD, FCAP, ??CLIA Certificate: [id number] DISCUSSION The biopsy shows ??hyperkeratosis, ??mild basal layer keratinocyte crowding and atypia, overlying prominent capillaries in the papillary dermis. ?Carcinoma is not seen and epidermal spongiosis is not obvious. ?? Multiple deeper levels have been examined. SPECIMEN(S) SUBMITTED A - left felipe, skin shave biopsy (1) CLINICAL INFORMATION SCCIS versus nummular eczema ??-1.3 cm thin soler-pink plaque on the left felipe SPECIMEN PROCESSING A - Labeled/Fixative: Patient demographics, formalin. Quantity/Size: ??Single, 0.7 x 0.6 x 0.1 cm. Tissue Description: Shave of white skin with a 0.5 x 0.5 cm soler skin plaque. Sections/Processing: Inked, trisected and entirely submitted in 1 cassette labeled A1. ??SM 07/27/2023 8:04 AM EST [facility] 07/15/2023 1:47 PM EST Joshua Quick MD PATHOLOGY/CYTOLOGY O MAGUI Performing Organization Address [facility]/[place] [address] * Specimen to Pathology (07/15/2023 1:47 PM EST) AP Specimen 07/15/2023 1:47 PM EST 07/15/2023 1:47 PM EST Narrative [facility] - 07/15/2023 1:47 PM EST Specimen requisition ordered. ??Separate Pathology report to follow Joshua Quick MD PATHOLOGY/CYTOLOGY O MAGUI Performing Organization Address [facility] [place] [address] documented in this encounter Visit Diagnoses Diagnosis Neoplasm of unspecified behavior of bone, soft tissue, and skin documented in this encounter Care Teams Solar Designer/Installer Relationship Specialty Start Date End Date Disha Hayden [address] [place] [address] PCP - General Family Medicine 07/15/23 documented as of this encounter
--- OUTSIDE RECORDS SUMMARY | 2023-12-15 01:14 | XMS_ITS | Encounter Summary ---
Author Organization [facility] Address [facility] [place] [address] Care Team Providers Care Arch Cushion Press Operator Name Role Phone ScottyNelia Disha Primary Care Provider Encounter Details Date Type Department Care Team (Latest Contact Info) Description 07/26/2023 Travel Social History Tobacco Use Types Packs/Day [...] AM EDT Appointment Hematology [place] [address] 01/31/2024 10:20 AM EDT Office Visit [place] [address] [facility] [place] [address] 08/01/2024 11:30 AM EDT Office Visit Dermatology at [facility] [address] [place] [address] Phan Engle MD [facility] [address] [place] [address] documented as of this encounter Visit Diagnoses Not on filedocumented in this encounter Care Teams Arch Cushion Press Operator Relationship Specialty Start Date End Date Disha Hayden [address] [place] [address] PCP - General Family Medicine 07/15/23 documented as of this encounter
--- OUTSIDE RECORDS SUMMARY | 2023-12-15 01:14 | XMS_ITS | Encounter Summary ---
Author Organization [facility] [place] [address] Care Team Providers Care Tactical/Mobile Watch Officer Name Role Phone Grecia Maddox MD Primary Care Provider [phone] Encounter Details Date Type Department Care Team (Late st Contact Info) Description 01/13/2023 Orders Only [place] [address] Beverly Pillai, RN Malignant neoplasm of right ovary Social History [...] AM EDT Appointment Hematology [place] [address] 01/31/2024 10:20 AM EDT Office Visit [place] [address] Rebecca Small MD [facility] [place] [address] 08/01/2024 11:30 AM EDT Office Visit Dermatology at [facility] [address] [place] [address] Phan Engle MD [facility] [place] [address] documented as of this encounter Results * Carbohydrate Antigen 19-9 (01/27/2023 10:32 AM EDT) CA 19-9 5.1 <=35.0 u/ml [facility] Comment: This result was generated using a Tammy Marcos immunoassay. ??Results obtained from other methods or manufacturers cannot be used interchangeably with this method. Blood 01/27/2023 10:3 2 AM EDT 01/27/2023 11:04 AM EDT Narrative Resulting Agency Comment Spec In Lab Rebecca Small MD CHEMISTRY ORDERABL ES Performing Organization Address [facility] Co de Phone Number [facility] [place] [address] * Cancer Antigen 125 (01/27/2023 10:32 AM EDT) CA 125 8.8 <=38.1 unit/mL [facility] Comment: CA 125 Reference Interval ??Postmenopausal: 6.2 to 31.5 U/mL. ??Premenopausal: 6.9 to 45.9 U/mL. ??Pre and Postmenopausal subjects combined: 6.4 to 38.1 U/mL. This result was generated using a Tammy Marcos immunoassay. ??Results obtained from other methods or manufacturers cannot be used interchangeably with this method. Blood 01/27/2023 10:3 2 AM EDT 01/27/2023 11:04 AM EDT Narrative Resulting Agency Comment Spec In Lab Rebecca Small MD CHEMISTRY ORDERABL ES Performing Organization Address City/[facility]/ZIP Co de Phone Number [facility] [place] [address] documented in this encounter Visit Diagnoses Diagnosis Malignant neoplasm of right ovary Malignant neoplasm of ovary documented in this encounter Care Teams Tactical/Mobile Watch Officer Relationship Specialty Start Date End Date Grecia Maddox MD [address] [place] [address] PCP - General Family Medicine 05/16/18 07/14/23 documented as of this encounter
--- OUTSIDE RECORDS SUMMARY | 2023-12-15 01:14 | XMS_ITS | Encounter Summary ---
Author Organization [facility] Address [facility] [place] [address] Care Team Providers Care Environmental Health And Safety Leader Name Role Phone BhavikomayrajuanNelia Disha Primary Care Provider [phone] Reason for Referral * Speech Therapy (Routine) - Authorized Specialty Diagnoses / Procedures Referred By Marie diaz Referred To Contact Speech Pathology / Speech Therapy Diagnoses Cognitive decline Hx antineoplastic chemo Rebecca Small MD [facility] DR [place] [address] [address] Referral ID Status Reason Start Date Expiration Date Visits Requested Visits Authorized [id number] Authorized Evaluate and Treat 10/27/2023 04/24/2024 12 12 Encounter Details Date Type Department Care Team (Late st Contact Info) Description 10/26/2023 Orders Only Gyne[place] [address] Noy Naylor, RN Cognitive decline; Hx antineoplastic chemo Social History Tobacco Use Types Packs/Day Years [...] AM EDT Appointment Hematology [place] [address] 01/31/2024 10:20 AM EDT Office Visit Gynecology [place] [address] Rebecca Small MD [facility] [place]EC[place] [address] 08/01/2024 11:30 AM EDT Office Visit Dermatology at [place] [address] [place] [address] Phan Engle MD [facility] DR JESS HERNAN[place] [address] Scheduled Referrals Name Type Priority Associated Diagnoses Orde r Schedule Referral to Speech Therapy Outpatient Referral Routine Cognitive decline Hx antineoplastic chemo Ordered: 10/27/2023 documented as of this encounter Visit Diagnoses Diagnosis Cognitive decline Unspecified persistent mental disorders due to conditions classified elsewhere Hx antineoplastic chemo Personal history of antineoplastic chemotherapy documented in this encounter Care Teams Environmental Health And Safety Leader Relationship Specialty Start Date End Date Disha Hayden [address] [place] [address] PCP - General Family Medicine 07/15/23 documented as of this encounter
--- OUTSIDE RECORDS SUMMARY | 2023-12-15 01:14 | XMS_ITS | Encounter Summary ---
Author Organization [facility] [place] [address] Care Team Providers Care Cloth Finishing Range Back Tender Name Role Phone CiaraJuancarlos Disha Primary Care Provider Encounter Details Date Type Department Care Team (Late st Contact Info) Description 10/21/2023 Orders Only [place] [phone] Elis Warner, RN Endometrial cancer; Malignant neoplasm of ovary, unspecified laterality Social History Tobacco Use Types Packs/Day Years [...] AM EDT Appointment [place] [address] 01/31/2024 10:20 AM EDT Office Visit [place] [address] Rebecca Small MD [facility] [place] [address] 08/01/2024 11:30 AM EDT Office Visit Dermatology at [facility] [address] [place] [address] Phan Engle MD [facility] [place] [address] documented as of this encounter Results * Cancer Antigen 125 (10/25/2023 9:35 AM EDT) CA 125 9.5 <=38.1 unit/mL [facility] Comment: CA 125 Reference Interval [...] Lab Rebecca Small MD CHEMISTRY ORDERABL ES [facility] [place] [address] documented in this encounter Visit Diagnoses Diagnosis Endometrial cancer Malignant neoplasm of corpus uteri, except isthmus Malignant neoplasm of ovary, unspecified laterality documented in this encounter Care Teams Cloth Finishing Range Back Tender Relationship Specialty Start Date End Date Disha Hayden [address] [place] [address] PCP - General Family Medicine 07/15/23 documented as of this encounter
--- OUTSIDE RECORDS SUMMARY | 2023-12-15 01:14 | XMS_ITS | Encounter Summary ---
Author Organization [facility] [place] [address] Care Team Providers Care Labor Training Manager Name Role Phone Grecia Maddox MD Primary Care Provider [phone] Encounter Details Date Type Department Care Team (Latest Contact Info) Description 01/27/2023 10:07 AM EDT - 01/27/2023 11:59 PM EDT Hospital Encounter Hematology [place] [address] Malignant neoplasm of right ovary Discharge Disposition: Home Social History Tobacco Use Types Packs/Day Years [...] Sig Dispensed Refills Start Date End Date Lactobacillus acidophilus (PROBIOTIC ORAL) Take by mouth. Probiotic and prebiotic acetaminophen (Tylenol) 325 mg Tablet Take 2 tablets by mouth every 6 hours as needed for Pain. 90 tablet 1 04/02/2022 lisinopriL (Zestril) 10 mg Tablet Take 10 mg by mouth daily. 02/24/2022 Magtab 84 mg Tablet Sustained Release Take 1 tablet by mouth 2 times daily. 12/03/2021 aspirin 325 mg Tablet Take 325 mg by mouth daily. oxyCODONE (Roxicodone) 5 mg Tablet Take 1 tablet by mouth every 4 hours as needed for Pain. 8 tablet 04/02/2022 04/26/2023 ibuprofen (Advil) 600 mg Tablet Take 1 tablet by mouth every 6 hours as needed for Pain. 60 tablet 04/02/2022 04/26/2023 senna-docusate (Pericolace) 8.6-50 mg Tablet Take 1 tablet by mouth 2 times daily as needed for Constipation. 30 tablet 04/02/2022 04/26/2023 LORazepam (Ativan) 0.5 mg Tablet Take 0.5 mg by mouth daily as needed. 02/23/2022 09/28/2023 venlafaxine XR (Effexor-XR) 37.5 mg Capsule, Sust. Release 24 hr Take 37.5 mg by mouth daily. 12/20/2021 09/28/2023 cyclobenzaprine (FLEXERIL) 10 mg Tablet 01/19/2018 05/0 11/2023 documented as of this encounter Plan of Treatment Upcoming Encounters Date Type Department Care Team (Late st Contact Info) Description 01/31/2024 9:15 AM EDT Appointment Hematology [place] [address] 01/31/2024 10:20 AM EDT Office Visit Gy[place] [address] Rebecca Small MD [facility] [place] [address] 08/01/2024 11:30 AM EDT Office Visit Dermatology at [address] [address] Phan Engle MD [facility] DR JESS HERNA[place] [address] documented as of this encounter Procedures Procedure Name Priority Date/Time Associated Diagnosis Comments HC CARBOHYDRATE ANTIGEN 19-9 Routine 01/27/2023 10:32 AM EDT Malignant neoplasm of right ovary HC CANCER ANTIGEN 125 Routine 01/27/2023 10:32 AM EDT Malignant neoplasm of right ovary documented in this encounter Results * Cancer Antigen 125 (01/27/2023 10:32 AM EDT) CA 125 8.8 <=38.1 unit/mL [facility] Comment: CA 125 Reference Interval [...] MD CHEMISTRY ORDERABL ES Performing Organization Address [facility] Co de Phone Number [facility] [place] [address] * Carbohydrate Antigen 19-9 (01/27/2023 10:32 AM EDT) CA 19-9 5.1 <=35.0 u/ml [facility] Comment: This result was generated using a Tammy Marcos immunoassay. ??Results obtained from other methods or manufacturers cannot be used interchangeably with this method. Blood 01/27/2023 10:3 2 AM EDT 01/27/2023 11:04 AM EDT Narrative Resulting Agency Comment Spec In Lab Rebecca Small MD CHEMISTRY ORDERABL ES Performing Organization Address [facility] Co de Phone Number [facility] [place] [address] documented in this encounter Visit Diagnoses Diagnosis Malignant neoplasm of right ovary Malignant neoplasm of ovary documented in this encounter Care Teams Labor Training Manager Relationship Specialty Start Date End Date Grecia Maddox MD [address] [place] [address] PCP - General Family Medicine 05/16/18 07/14/23 documented as of this encounter
--- OUTSIDE RECORDS SUMMARY | 2023-12-15 01:14 | XMS_ITS | Encounter Summary ---
Author Organization [facility] Address [address] [place] [address] Care Team Providers Care Bridge Operator Slip Name Role Phone Unavailable Primary Care Provider Unavailabl e Encounter Details Date Type Department Care Team (Late st Contact Info) Description 03/28/2009 Orders Only [facility] - [facility] [address] [place] [address] Patch, Allyn, CNM [address] [facility] [address] [place] [address] Social History Tobacco Use Types Packs/Day Years Used Date Smoking Tobacco: Never Assessed Sex and Gender Information Value Date Recorded Sex Assigned at Not on file Gender Identity Not on file Sexual Orientation Not on file documented as of this encounter Plan of Treatment Not on file documented as of this encounter Procedures Procedure Name Priority Date/Time Associated Diagnosis Comments HPV DETECTION, HIGH RISK TYPES Routine 03/28/2009 22:30 EST CYTOPATHOLOGY Routine 03/28/2009 0:00 EST documented in this encounter Results * HUMAN PAPILLOMA VIRUS DNA TEST (03/28/2009 22:30 EST) Specimen Description Cervix, ThinPrep vial [facility] Result Positive for one or more of HPV types 16,18,31,33,35 ,39,45,51,52,5 6,58,59, or 68. These high/intermedi ate risk HPV types are associated with dysplasia and some cervical cancers. [facility] Report Status Final 04/11/2009 [facility] 03/28/2009 22:3 0 EST 04/09/2009 22:30 EST Tavon Patch CNM MICROBIOLOGY - GENER AL ORDERABLES [facility] [address] [place] [address] * CYTOPATHOLOGY (03/28/2009 0:00 EST) Pathology Report: CYTOPATHOLOGY REPORT ? Reports generated via electronic interface contain original data; ? however they are lacking the format of the original report. ? Caution should be taken when reading/interpreti ng unformatted reports. ? Name: ? DAPHNE COE ? Accession #: ? [id number] ? : ? 1965 (Age: 43) ??F ?Collect Date: ? 03/28/2009 ? Location: ? [facility] ? Receive Date: ? 04/01/2009 ? Provider: ?TAVNO PATCH CNM ? Copy to: ? Specimen/Source: ?Pap Test, Cervix/Endocervix, ThinPrep Imaging System ? with manual evaluation ? Last Menstrual Period: ? 10/21/09 ? Previous Gynecologic Pathology: ? HPV: Hx of ? Treatment History: ? Colposcopy: wnl since ? Other: ? HPVDX - HPV testing requested regardless of diagnosis on current ThinPrep Pap ?? test. ? SPECIMEN ADEQUACY ? Satisfactory for Evaluation ? - transformation zone component present ? GENERAL CATEGORIZATION ? Negative for Intraepithelial Lesion or Malignancy ? INTERPRETATION ? Reactive cellular changes associated with inflammation present (includes ?? repair). ? Endometrial cells present in a woman equal to or greater than age 40. ? Negative for Intraepithelial Lesion. ? EDUCATIONAL NOTES/RECOMMENDATI ONS ? Benign appearing endometrial cells on Pap tests are usually a normal ? finding in women with regular menstrual cycles, especially if the Pap test was ?? collected during the first half of the menstrual cycle. ? There is data showing that endometrial cells on Pap tests may be associated with endometrial/uterin e abnormalities in post menopausal women or in perimenopausal women with abnormal bleeding. ? There is limited data on the significance of benign endometrial cells in post ?? menopausal women on HRT. ??Clinical correlation is recommended. ? Note: ??The Pap test is not an accurate test for the screening of endometrial ? lesions and should not be used as a follow up in patients with clinical ? suspicion of endometrial pathology. ? Document reviewed and electronically signed by: ? ABDELMONEM ELHOSSEINY MD ? Report Date: ??04/09/2009 11:37 ? End of Report ? [facility] 03/28/2009 04/01/2009 Tavon Patch CNM PATHOLOGY ORDERABLES [facility] [address] [place] [address] documented in this encounter Visit Diagnoses Not on filedocumented in this encounter
--- OUTSIDE RECORDS SUMMARY | 2023-12-15 01:14 | XMS_ITS | Encounter Summary ---
Author Organization [facility] Address [address] [place] [address] Care Team Providers Care Chinchilla Farmer Name Role Phone Unavailable Primary Care Provider Unavailabl e Encounter Details Date Type Department Care Team (Late st Contact Info) Description 03/24/2010 Results Only [facility] Laboratory Services - [facility] ([facility] [address] [place] [address] Keiko Reddy MD [address] [facility] [address] [place] [address] Social History Tobacco Use Types Packs/Day Years Used Date Smoking Tobacco: Never Assessed Sex and Gender Information Value Date Recorded Sex Assigned at Not on file Gender Identity Not on file Sexual Orientation Not on file documented as of this encounter Plan of Treatment Not on file documented as of this encounter Procedures Procedure Name Priority Date/Time Associated Diagnosis Comments HOLD PURPLE TOP Routine 03/24/2010 10:15 EDT ESTRADIOL, ADULTS Routine 03/24/2010 10: 15 EDT QUANT BETA HCG, Routine 03/24/2010 10:15 EDT FSH Routine 03/24/2010 10:15 EDT documented in this encounter Results * HOLD PURPLE TOP (03/24/2010 10:15 EDT) Hold Purple Top EDTA for hematology will be discarded after 48 hours, differential not available after 12 hours. [facility] 03/24/2010 10:1 5 EDT 03/24/2010 14:12 EDT Keiko Reddy MD LAB INFO SERVICE AND SUPPORT & PHONE RESULT Performing Organization Address [facility] Phone Number [facility] [address] [place] [address] * HCG (03/24/2010 10:15 EDT) HCG <4 <4 mIU/ml [facility] Comment: Reference Range: Positive = >10 Borderline = 4-10 ??recommend repeat. Negative = <4 03/24/2010 10:1 5 EDT 03/24/2010 14:12 EDT Keiko Reddy MD CHEMISTRY & BLOOD GA S ORDERABLES Performing Organization Address [facility] de Phone Number [facility] [address] [place] [address] * FSH (03/24/2010 10:15 EDT) FSH 41.5 mIU/ml [facility] Comment:Follicular: 2-11 Mid -Cycle Peak: 3.4-35 Luteal: 1-9 Postmenopausal: 25-120 03/24/2010 10:1 5 EDT 03/24/2010 14:12 EDT Keiko Reddy MD CHEMISTRY & BLOOD GA S ORDERABLES Performing Organization Address [facility] de Phone Number [facility] [address] [place] [address] * ESTRADIOL (03/24/2010 10:15 EDT) Estradiol 122 pg/ml [facility] Comment: By day in cycle relative to LH peak: Follicular Phase: -12 days: 11-69 ? -4 days: 63-165 Midcycle ?-1 day: 146-526 Luteal Phase ? +2 days: 33-150 ? +6 days: 68-196 ?+12 days: 36-133 Postmenopausal: ??0-37 03/24/2010 10:1 5 EDT 03/24/2010 14:12 EDT Keiko Reddy MD CHEMISTRY & BLOOD GA S ORDERABLES Performing Organization Address City/State/[facility] Co de Phone Number [facility] [address] [place] [address] documented in this encounter Visit Diagnoses Not on filedocumented in this encounter
--- OUTSIDE RECORDS SUMMARY | 2023-12-15 01:14 | XMS_ITS | Encounter Summary ---
Author Organization [facility] [place] [address] Care Team Providers Care Domestic Housekeeper Name Role Phone Grecia Maddox MD Primary Care Provider [phone] Reason for Referral * Consultation (Routine) - Authorized Specialty Diagnoses / Procedures Referred By Marie diaz Referred To Contact Dermatology Diagnoses Basal cell carcinoma (BCC), unspecified site Disha Hayden [address] [place] [address] [facility] Dermatology [address] [place] [address] Referral ID Status Reason Start Date Expiration Date Visits Requested Visits Authorized [id number] Authorized Consult, Test & Treat PCP Updated and/or Approved 07/02/2023 07/01/2024 6 6 Encounter Details Date Type Department Care Team (Latest Contact Info) Description 07/02/2023 Transcribe Orders eDH Incoming Referrals [phone] Disha Hayden [address] [place] [address] Basal cell carcinoma (BCC), unspecified site Social History Tobacco Use Types Packs/Day Years [...] AM EDT Appointment Hematology [place] [address] 01/31/2024 10:20 AM EDT Office Visit [place] [address] Rebecca Small MD [facility] [place] [address] 08/01/2024 11:30 AM EDT Office Visit Dermatology at [address] [place] [address] Phan Engle MD [facility] DR [address] [place] [address] Scheduled Referrals Name Type Priority Associated Diagnoses Orde r Schedule Referral to Dermatology Outpatient Referral Routine Basal cell carcinoma (BCC), unspecified site Ordered: 07/02/2023 documented as of this encounter Visit Diagnoses Diagnosis Basal cell carcinoma (BCC), unspecified site documented in this encounter Care Teams Domestic Housekeeper Relationship Specialty Start Date End Date Grecia Maddox MD [address] [place] [address] PCP - General Family Medicine 05/16/18 07/14/23 documented as of this encounter
--- OUTSIDE RECORDS SUMMARY | 2023-12-15 01:14 | XMS_ITS | Encounter Summary ---
Author Organization [facility] Address [facility] [place] [address] Care Team Providers Care Csr Retail Name Role Phone Disha Hayden Primary Care Provider Encounter Details Date Type Department Care Team (Latest Contact Info) Description 10/25/2023 9:15 AM EDT - 10/25/2023 11:59 PM EDT Hospital Encounter Hematology [place] [address] Malignant neoplasm of ovary, unspecified laterality Discharge Disposition: Home Social History Tobacco Use [...] Sig Dispensed Refills Start Date End Date senna-docusate (Pericolace) 8.6-50 mg Tablet Take 1 tablet by mouth daily. Lactobacillus acidophilus (PROBIOTIC ORAL) Take by mouth. [...] Tablet Take 325 mg by mouth daily. documented as of this encounter Plan of Treatment Upcoming Encounters Date Type Department Care Team (Late st Contact Info) Description 01/31/2024 9:15 AM EDT Appointment Hematology [place] [address] 01/31/2024 10:20 AM EDT Office Visit [place] [address] Rebecca Small MD [facility] [place] [address] 08/01/2024 11:30 AM EDT Office Visit Dermatology at [facility] [address] [place] [address] Phan Engle MD [facility] DR [address] HERNA[place] [address] documented as of this encounter Procedures Procedure Name Priority Date/Time Associated Diagnosis Comments HC VENIPUNCTURE Routine 10/25/2023 9:35 AM EDT Malignant neoplasm of ovary, unspecified laterality documented in this encounter Results * Cancer Antigen 125 (10/25/2023 9:35 AM EDT) CA 125 9.5 <=38.1 unit/mL [facility] Comment: CA 125 Reference [...] Lab Rebecca Small MD CHEMISTRY ORDERABL ES [facility] [place] [address] documented in this encounter Visit Diagnoses Diagnosis Malignant neoplasm of ovary, unspecified laterality documented in this encounter Care Teams Csr Retail Relationship Specialty Start Date End Date Disha Hayden [address] [place] [address] PCP - General Family Medicine 07/15/23 documented as of this encounter
--- OUTSIDE RECORDS SUMMARY | 2023-12-15 01:14 | XMS_ITS | Encounter Summary ---
Author Organization [facility] Address [address] [place] [address] Care Team Providers Care Surface Water Manager Name Role Phone Unknown, Provider Primary Care Provider [phone] Encounter Details Date Type Department Care Team (Latest Contact Info) Description 06/23/2010 12:22 EST - 06/23/2010 12:23 [facility] Hospital Encounter [facility] - Other [address] [place] [address] Keiko Reddy MD [address] [place] [phone] Discharge Disposition: Home or Self Care Social [...] on filedocumented in this encounter Care Teams Surface Water Manager Relationship Specialty Start Date End Date Unknown, Provider, PCP - General 04/14/10 01/04/11 documented as of this encounter
--- OUTSIDE RECORDS SUMMARY | 2023-12-15 01:14 | XMS_ITS | Encounter Summary ---
Author Organization [facility] [place] [address] Care Team Providers Care Data Migration Lead Name Role Phone Grecia Maddox MD Primary Care Provider [phone] Encounter Details Date Type Department Care Team (Latest Contact Info) Description 01/29/2023 4:00 PM EDT TH Visit (TeleHealth) [place] [address] Danita Matrinez MD [facility] [place] [address] Malignant neoplasm of right ovary Social History [...] as of this encounter Progress Notes * Danita Martinez MD - 01/29/2023 4:00 PM EDT Division [place] [address] Surveillance Visit: Patient Active Problem List Diagnosis [...] Daphne Pickard returns to the office today for her postoperative visit. 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 Her postoperative course was uncomplicated. She has continued to feel well. Normal appetite and energy. No vaginal bleeding. No issues with her bladder or bowels. Objective: There were no vitals filed for this visit. There is no height or weight on file to calculate BMI. There is no height or weight on file to calculate BSA. Physical Exam Telephone Assessment and Plan: Daphne Pickard is a 57 y.o. 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 RTC 3 mo for ongoing surveillance. Will continue to follow CA-125. DANITA MARTINEZ MD documented in this encounter Plan of Treatment Upcoming Encounters Date Type Department Care Team (Late st Contact Info) Description 01/31/2024 9:15 AM EDT Appointment Hematology [place] [address] 01/31/2024 10:20 AM EDT Office Visit [place] [address] Danita Martinez MD [facility] [place] [address] 08/01/2024 11:30 AM EDT Office Visit Dermatology at [facility] [address] [place] [address] Phan Engle MD [facility] DR J[address] [place] [address] documented as of this encounter Visit Diagnoses Diagnosis Malignant neoplasm of right ovary Malignant neoplasm of ovary documented in this encounter Care Teams Data Migration Lead Relationship Specialty Start Date End Date Grecia Maddox MD [address] [place] [address] PCP - General Family Medicine 05/16/18 07/14/23 documented as of this encounter
--- OUTSIDE RECORDS SUMMARY | 2023-12-15 01:14 | XMS_ITS | Encounter Summary ---
Author Organization Count Includes [facility] Address [facility] [place] [address] Care Team Providers Care Ticket Machine Operator Name Role Phone ScottyNelia Disha Primary Care Provider Encounter Details Date Type Department Care Team (Latest Contact Info) Description 09/28/2023 Travel Social History Tobacco Use Types Packs/Day [...] AM EDT Appointment Hematology [place] [address] 01/31/2024 10:20 AM EDT Office Visit [place] [address] Rebecca Small MD [facility] DR [place] [address] 08/01/2024 11:30 AM EDT Office Visit Dermatology at [facility] [address] [place] [address] Phan Engle MD [facility] DR J[address] HERNA[place] [address] documented as of this encounter Visit Diagnoses Not on filedocumented in this encounter Care Teams Ticket Machine Operator Relationship Specialty Start Date End Date Disha Hayden [address] [place] [address] PCP - General Family Medicine 07/15/23 documented as of this encounter
--- OUTSIDE RECORDS SUMMARY | 2023-12-15 01:14 | XMS_ITS | Encounter Summary ---
Author Organization [facility] [place] [address] Care Team Providers Care Export Freight Manager Name Role Phone Grecia Maddox MD Primary Care Provider [phone] Encounter Details Date Type Department Care Team (Late st Contact Info) Description 04/23/2023 Orders Only [place] [address] Beverly Pillai, RN Malignant neoplasm of right [...] AM EDT Appointment Hematology [place] [address] 01/31/2024 10:20 AM EDT Office Visit [place] [address] Rebecca Small MD [facility] [place] [address] 08/01/2024 11:30 AM EDT Office Visit Dermatology at [facility] [address] [place] [address] Phan Engle MD [facility] [address] [place] [address] documented as of this encounter Results * Cancer Antigen 125 (04/26/2023 9:34 AM EST) CA 125 9.2 <=38.1 unit/mL [facility] Comment: CA 125 Reference Interval ??Postmenopausal: 6.2 to 31.5 U/mL. ??Premenopausal: 6.9 to 45.9 U/mL. ??Pre and Postmenopausal subjects combined: 6.4 to 38.1 U/mL. This result was generated using a Tammy Marcos immunoassay. ??Results obtained from other methods or manufacturers cannot be used interchangeably with this method. Blood 04/26/2023 9:34 AM EST 04/26/2023 9:46 AM EST Narrative Resulting Agency Comment Spec In Lab Rebecca Small MD CHEMISTRY ORDERABL ES [facility] [place] [address] documented in this encounter Visit Diagnoses Diagnosis Malignant neoplasm of right ovary Malignant neoplasm of ovary documented in this encounter Care Teams Export Freight Manager Relationship Specialty Start Date End Date Grecia Maddox MD [address] [place] [address] PCP - General Family Medicine 05/16/18 07/14/23 documented as of this encounter
--- OUTSIDE RECORDS SUMMARY | 2023-12-15 01:14 | XMS_ITS | Encounter Summary ---
Author Organization [facility] [address] Care Team Providers Care Technical Account Manager Name Role Phone Grecia Maddox MD Primary Care Provider [phone] Encounter Details Date Type Department Care Team (Latest Contact Info) Description 04/26/2023 9:24 AM EST - 04/26/2023 11:59 PM [facility] Hospital Encounter Hematology [place] [address] Malignant neoplasm of right ovary Discharge Disposition: [...] Tablet Take 325 mg by mouth daily. LORazepam (Ativan) 0.5 mg Tablet Take 0.5 mg by mouth daily as needed. 02/23/2022 09/28/2023 venlafaxine XR (Effexor-XR) 37.5 mg Capsule, Sust. Release 24 hr Take 37.5 mg by mouth daily. 12/20/2021 09/28/2023 cyclobenzaprine (FLEXERIL) 10 mg Tablet 01/19/2018 0511/2023 documented as of this encounter Plan of Treatment Upcoming Encounters Date Type Department Care Team (Late st Contact Info) Description 01/31/2024 9:15 AM EDT Appointment Hematology [place] [address] 01/31/2024 10:20 AM EDT Office Visit Gynecology [place] [address] Rebecca Small MD [facility] [place] [address] 08/01/2024 11:30 AM EDT Office Visit Dermatology at [address] [place] [address] Phan Engle MD [facility] [address] [place] [address] documented as of this encounter Procedures Procedure Name Priority Date/Time Associated Diagnosis Comments HC CANCER ANTIGEN 125 Routine 04/26/2023 9:34 AM EST Malignant neoplasm of right ovary documented in this encounter Results * Cancer Antigen 125 (04/26/2023 9:34 AM EST) CA 125 9.2 <=38.1 unit/mL [facility] [...] MD CHEMISTRY ORDERABL ES Performing Organization Address City/State/[facility] Co de Phone Number [facility] [place] [address] documented in this encounter Visit Diagnoses Diagnosis Malignant neoplasm of right ovary Malignant neoplasm of ovary documented in this encounter Care Teams Technical Account Manager Relationship Specialty Start Date End Date Grecia Maddox MD [address] [place] [address] PCP - General Family Medicine 05/16/18 07/14/23 documented as of this encounter
--- OUTSIDE RECORDS SUMMARY | 2023-12-15 01:14 | XMS_ITS | Encounter Summary ---
Author Organization [facility] Address [address] [place] [address] Care Team Providers Care Roof Truss Detailer Name Role Phone Unknown, Provider Primary Care Provider [phone] Encounter Details Date Type Department Care Team (Late st Contact Info) Description 06/23/2010 Results Only [facility] Laboratory Services - [facility] ([facility] [address] [place], [place] [id number] Any Reddy MD [address] [facility] [address] [place] [address] Social History Tobacco Use Types Packs/Day Years Used Date Smoking Tobacco: Never Assessed Sex and Gender Information Value Date Recorded Sex Assigned at Not on file Gender Identity Not on file Sexual Orientation Not on file documented as of this encounter Plan of Treatment Not on file documented as of this encounter Procedures Procedure Name Priority Date/Time Associated Diagnosis Comments CHLAMYDIA/N. GONORRHOEAE AMPLIFIED NUCLEIC ACID Routine 06/23/2010 14:44 EST CYTOPATHOLOGY Routine 06/23/2010 0:00 EST documented in this encounter Results * CHLAMYDIA/GC AMPLIFIED (06/23/2010 14:44 EST) Specimen Description Endocervix [facility] Chlamydia Result No Chlamydia trachomatis DNA detected by molasses and caramel operator mediated amplification. [facility] GC Result No Neisseria gonorrhoeae DNA detected by molasses and caramel operator mediated amplification. [facility] 06/23/2010 14:4 4 EST 06/23/2010 14:44 EST Any Reddy MD MICROBIOLOGY - GENER AL ORDERABLES [facility] [address] [address] * CYTOPATHOLOGY (06/23/2010 0:00 EST) Pathology Report: CYTOPATHOLOGY REPORT ? Reports generated via electronic interface contain original data; ? however they are lacking the format of the original report. ? Caution should be taken when reading/interpreti ng unformatted reports. ? Name: ? DAPHNE COE ? Accession #: ? [id number] ? : ? 1965 (Age: 44) ??F ?Collect Date: ? 06/23/2010 ? Location: ? [facility] ? Receive Date: ? 06/24/2010 ? Provider: ANY C RIPPA MD ? Copy to: ? Final Report ? SPECIMEN ADEQUACY ? Satisfactory for Evaluation ? - transformation zone component present ? GENERAL CATEGORIZATION ? Negative for Intraepithelial Lesion or Malignancy ? INTERPRETATION ? Reactive cellular changes associated with inflammation present (includes ?? repair). ? Specimen/Source: ??Pap Test, Cervix/Endocervix, ThinPrep Imaging System with ? manual evaluation ? Document reviewed and electronically signed by: ? GLORIA B AMBAYE MD ? Report ??Date: 07/02/2010 09:22 ? HPV with Pap Test ? Date Ordered: ? 07/02/2010 ? Status: ?? Signed Out ?Date Complete: ? 07/07/2010 ? By: ??System Interface ? Date Reported: ? 07/07/2010 ? Interpretation ? RESULT: Negative for HPV types 16, 18, 31, 33, 35, 39, 45, 51, 52, ? 56, 58, 59, and 68. ? Comments ? Document reviewed and electronically signed by: ? System Interface ? Report date: 07/07/2010 ? By the signature above, the attending physician certifies that he/she has ? personally conducted a gross and/or microscopic examination of the described ? specimens and rendered or confirmed the above diagnosis. ? End of Report ? [facility] 06/23/2010 06/24/2010 Any Reddy MD PATHOLOGY ORDERABLES Performing Organization Address City/State/[facility] Co de Phone Number [facility] [address] [place] [address] documented in this encounter Visit Diagnoses Not on filedocumented in this encounter Care Teams Roof Truss Detailer Relationship Specialty Start Date End Date Unknown, Provider, PCP - General 04/14/10 01/04/11 documented as of this encounter
--- OUTSIDE RECORDS SUMMARY | 2023-12-15 01:14 | XMS_ITS | Encounter Summary ---
Author Organization [facility] [place] [address] Care Team Providers Care Cracking And Fanning Machine Operator Name Role Phone ScottyNeliaDisha Primary Care Provider Encounter Details Date Type Department Care Team (Late st Contact Info) Description 07/26/2023 Orders Only [place] [address] Rebecca Small MD [facility] DR [place] [address] Malignant neoplasm of ovary, unspecified laterality (Primary Dx) Social History Tobacco Use Types [...] as of this encounter Progress Notes * Rebecca Small MD - 07/26/2023 8:57 AM EST CA documented in this encounter Plan of Treatment Upcoming Encounters Date Type Department Care Team (Late st Contact Info) Description 01/31/2024 9:15 AM EDT Appointment Hematology [place] [address] 01/31/2024 10:20 AM EDT Office Visit [place] [address] Rebecca Small MD [facility] [place] [address] 08/01/2024 11:30 AM EDT Office Visit Dermatology at [facility] [address] [place] [address] Phan Engle MD [facility] DR JESS HERNAN[place] [address] documented as of this encounter Results * Carbohydrate Antigen 19-9 (07/26/2023 9:02 AM EST) CA 19-9 5.8 <=35.0 u/ml [facility] Comment: This result was generated using a Tammy Marcos immunoassay. ??Results obtained from other methods or manufacturers cannot be used interchangeably with this method. Blood 07/26/2023 9:02 AM EST 07/26/2023 9:07 AM EST Narrative Resulting Agency Comment Spec In Lab Rebecca Small MD CHEMISTRY ORDERABL ES [facility] [place] [address] * Cancer Antigen 125 (07/26/2023 9:02 AM EST) CA 125 8.4 <=38.1 unit/mL [facility] Comment: CA 125 Reference Interval ??Postmenopausal: 6.2 to 31.5 U/mL. ??Premenopausal: 6.9 to 45.9 U/mL. ??Pre and Postmenopausal subjects combined: 6.4 to 38.1 U/mL. This result was generated using a Tammy Marcos immunoassay. ??Results obtained from other methods or manufacturers cannot be used interchangeably with this method. Blood 07/26/2023 9:02 AM EST 07/26/2023 9:07 AM EST Narrative Resulting Agency Comment Spec In Lab Rebecca Small MD CHEMISTRY ORDERABL ES Performing Organization Address City/State/[facility] Co de Phone Number [facility] [place] [address] documented in this encounter Visit Diagnoses Diagnosis Malignant neoplasm of ovary, unspecified laterality- Primary documented in this encounter Care Teams Cracking And Fanning Machine Operator Relationship Specialty Start Date End Date Disha Hayden [address] [place] [address] PCP - General Family Medicine 07/15/23 documented as of this encounter
--- OUTSIDE RECORDS SUMMARY | 2023-12-15 01:14 | XMS_ITS | Encounter Summary ---
Author Organization [facility] Address [facility] [place] [address] Care Team Providers Care Document Improvement Specialist Name Role Phone Grecia Maddox MD Primary Care Provider [phone] Reason for Visit * Reason Comments Establish Care 3 mth ck Encounter Details Date Type Department Care Team (Late st Contact Info) Description 04/26/2023 11:00 AM EST Office Visit [place] [address] [facility] [address] [place] [address] Malignant neoplasm of right ovary Social History [...] Sign Reading Time Taken Comments Blood Pressure 123/90 04/26/2023 9:58 AM EST Pulse 71 04/26/2023 9:58 AM EST Temperature 36.3 ??C (97.4 ??F) 04/26/2023 9:58 AM ES T Respiratory Rate 16 04/26/2023 9:58 AM EST Oxygen Saturation 98% 04/26/2023 9:58 AM EST Inhaled Oxygen Concentration - - Weight 75.8 kg (167 lb) 04/26/2023 9:58 AM EST Height 166.4 cm (5' 5.51) 04/26/2023 9:58 AM ES T Body Mass Index 27.36 04/26/2023 9:58 AM EST documented in this encounter Progress Notes * Danita Martinez MD - 04/26/2023 11:00 AM EST Division of [place] [address] Surveillance Visit: Patient Active Problem List Diagnosis [...] issues with her bladder or bowels. She does have some discomfort with intercourse and she relates this to dryness and pain with insertion. Objective: Vitals: 04/26/23 0958 BP: 123/90 Patient Position: Sitting Pulse: 71 Resp: 16 Temp: 36.3 ??C (97.4 ??F) TempSrc: Temporal SpO2: 98% Weight: 75.8 kg (167 lb) Height: 166.4 cm (5' 5.51) Body mass index is 27.36 kg/m??. Body surface area is 1.87 meters squared. Physical Exam Constitutional: Appearance: Normal [...] ongoing surveillance. Will continue to follow CA-125. We discussed her dyspareunia and various approaches to management. She will see pelvic floor PT andwas given lubricant samples. DANITA MARTINEZ MD documented in this encounter Plan of Treatment Upcoming Encounters Date Type Department Care Team (Late st Contact Info) Description 01/31/2024 9:15 AM EDT Appointment Hematology [place] [address] 01/31/2024 10:20 AM EDT Office Visit [place] [address] [facility] [address] [place] [address] 08/01/2024 11:30 AM EDT Office Visit Dermatology at [place] [address] [place] [address] [facility]ESS [place] [address] documented as of this encounter Visit Diagnoses Diagnosis Malignant neoplasm of right ovary Malignant neoplasm of ovary documented in this encounter Care Teams Document Improvement Specialist Relationship Specialty Start Date End Date Grecia Maddox MD [address] [place] [address] PCP - General Family Medicine 05/16/18 07/14/23 documented as of this encounter
--- OUTSIDE RECORDS SUMMARY | 2023-12-15 01:14 | XMS_ITS | Encounter Summary ---
Author Organization [facility] Address [address] [place] [address] Care Team Providers Care Vice President Of Product Marketing Name Role Phone Keiko Reddy MD Primary Care Provider [phone] Reason for Visit * Reason Comments Elbow Pain Right Encounter Details Date Type Department Care Team (Latest Contact Info) Description 01/06/2011 9:00 EDT Office Visit [facility] Rehabilitation Therapy [address] [address] Nir Garces MD [address] [id number] Injury to radial nerve; Elbow pain, right Social History Tobacco Use Types Packs/Day Years Used Date Smoking Tobacco: Never Assessed Sex and Gender Information Value Date Recorded Sex Assigned at Not on file Gender Identity Not on file Sexual Orientation Not on file documented as of this encounter Progress Notes * Nir Garces MD - 01/06/2011 0936 EDT This office note has been dictated. documented in this encounter Procedure Notes * Nir Garces MD - 01/13/2011 0958 EDT PHYSICAL MEDICINE / REHABILITATION ELECTRODIAGNOSTIC MEDICINE CONSULTATION SERVICE DATE: 01/06/2011 REQUESTING REPUBLICAN: Keiko Reddy MD. HISTORY: The patient is a remarkably pleasant woman who is here today at the request of Dr Reddy. The patient injured her right elbow while working in November of 2010. She struck it against a metal edgeand immediately had swelling at the lateral aspect of her elbow and within a short period of time noticed numbness out into her hand primarily into the dorsal aspect of digit 3 and 4. She clearly denies having struck the medial aspect of her elbow. Denies really any numbness into her fifth finger. She is clearly noted some weakness, however, in the arm and gripping. She has been significantly impaired with respect to any use of her right upper extremity. Dr Reddy's evaluation is reviewed and the patient is here today for my evaluation and electrodiagnostics. For past medical history, problem list and medication list, I refer to the [facility] intake. FAMILY HISTORY: Positive for cancer, also diabetes. SOCIAL HISTORY: The patient is an ex-smoker. REVIEW OF SYSTEMS: Please see intake format. This is reviewed with the patient and signed. OBJECTIVE: She is a very pleasant woman who is 5 feet 5, 122 pounds. Visual inspection of the upper extremity shows abnormality. There is clear swelling and induration in the lateral aspect of her elbow. She has weakness of thumb and finger extension. There is dysesthesia down the arm and then somewhat specifically into her 4th and 3rd fingers on the dorsal aspect. She has no tenderness whatsoever on my examination of her ulnar nerve over the medial epicondyle and cubital tunnel. She has a negative Tinel's sign there and a negative hyperflexion maneuver. She has a negative carpal compression test. The dorsal aspect of her right hand is somewhat cooler than the left side. There is no particular color or swelling noted. She does not have allodynia into the fingers. Her biceps, triceps and brachioradialis reflexes are intact. In order to investigate the status of her proximal and peripheral nerves, the plan is to perform electrodiagnostics. NERVE CONDUCTION STUDY: Nerve Distal Latency Evoked Nerve Conduction Comments (NI<3.6) Response Velocity Amplitude Right median motor 3.4 msec 7.6 mV 65 mps Right median sensory 3.4 msec 44 mV Right ulnar sensory 3.2 msec 60 mV Right ulnar motor 3.3 12.0 mV 58 mps across elbow, slight drop in M-wave amplitude to 11.6 mV Right radial sensory 2.1 34 mV Left radial sensory 2.2 49 mV Used for comparison. Right radial motor 2.2 msec 4.2 mV 36 mps across proximal forearm/elbow 8 cm drop in M-wave amplitude to 1.8 mV EMG REPORT: A monopolar exploring electrode was used with standard technique. Muscles examined included the right biceps, triceps, deltoid, pronator teres, flexor carpi ulnaris, abductor pollicis brevis, opponens pollicis, first dorsal interosseous, abductor digiti quinti. The brachioradialis, extensor carpi radialis, extensor indices proprius, extensor pollicis brevis. FINDINGS: In all the radial innervated musculature below the elbow including the brachioradialis, extensor carpi, extensor indices proprius and extensor pollicis brevis, there was trace to 1+ increased insertional activity seen in brachioradialis and extensor carpi radialis. There was 1 to 2+ increase seen in extensor indices proprius and extensor pollicis brevis. All other muscles tested normally. IMPRESSION: This is a very abnormal study. 1. There is moderate contusion and possible entrapment of the right radial nerve at the level just above probably the radial tunnel. This is a difficult call whether this is purely contusion, which should have a fairly good prognosis versus contusion, tissue changes in scarring with entrapment. The patient is going to see Dr Stinson coming up soon for evaluation and treatment. I understand there was some suspicion for ulnar neuropathy as well. Her ulnar nerve tested relatively normally across the elbow. I had a lengthy discussion with the patient regarding the anatomy. We also discussed many of the treatment options and issues and all of her questions were answered. 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 Medication Sig Dispensed Refills Start Date End Date gabapentin (NEURONTIN) 300 mg capsule Take 300 mg by mouth 3 times daily. 06/24/2011 meloxicam (MOBIC) 15 mg tablet Take 15 mg by mouth daily. 06/24/2011 added in this encounter Care Teams Vice President Of Product Marketing Relationship Specialty Start Date End Date Keiko Reddy MD [address] [address] PCP - General 01/05/11 documented as of this encounter
--- OUTSIDE RECORDS SUMMARY | 2023-12-15 01:14 | XMS_ITS | Encounter Summary ---
Author Organization [facility] [place] [address] Care Team Providers Care Catering Truck Operator Name Role Phone MoyjuanDisha Pickens Primary Care Provider Encounter Details Date Type Department Care Team (Latest Contact Info) Description 07/26/2023 8:52 AM EST - 07/26/2023 11:59 PM EST Hospital Encounter [place]ematology [place] [address] Malignant neoplasm of ovary, unspecified laterality Discharge [...] 12/20/2021 09/28/2023 cyclobenzaprine (FLEXERIL) 10 mg Tablet 01/19/201811/2023 documented as of this encounter Plan of Treatment Upcoming Encounters Date Type Department Care Team (Late st Contact Info) Description 01/31/2024 9:15 AM EDT Appointment Hematology [place] [address] 01/31/2024 10:20 AM EDT Office Visit [place] [address] Rebecca Small MD [facility] DR [place] [address] 08/01/2024 11:30 AM EDT Office Visit Dermatology at [address] [address] Phan Engle MD [facility] DR JESS [place] [address] documented as of this encounter Procedures Procedure Name Priority Date/Time Associated Diagnosis Comments HC VENIPUNCTURE Routine 07/26/2023 9:02 AM EST Malignant neoplasm of ovary, unspecified laterality HC CANCER ANTIGEN 125 Routine 07/26/2023 9:02 AM EST Malignant neoplasm of ovary, unspecified laterality documented in this encounter Results * Cancer Antigen 125 (07/26/2023 9:02 AM EST) CA 125 8.4 <=38.1 unit/mL [facility] [...] MD CHEMISTRY ORDERABL ES Performing Organization Address [facility] Co de Phone Number [facility] [place] [address] * Carbohydrate Antigen 19-9 (07/26/2023 9:02 AM EST) CA 19-9 5.8 <=35.0 u/ml [facility] Comment: This result was generated using a Tammy Marcos immunoassay. ??Results obtained from other methods or manufacturers cannot be used interchangeably with this method. Blood 07/26/2023 9:02 AM EST 07/26/2023 9:07 AM EST Narrative Resulting Agency Comment Spec In Lab Rebecca Small MD CHEMISTRY ORDERABL ES Performing Organization Address [facility] Co de Phone Number [facility] [place] [address] documented in this encounter Visit Diagnoses Diagnosis Malignant neoplasm of ovary, unspecified laterality documented in this encounter Care Teams Catering Truck Operator Relationship Specialty Start Date End Date Disha Hayden [address] [place] [address] PCP - General Family Medicine 07/15/23 documented as of this encounter
--- OUTSIDE RECORDS SUMMARY | 2023-12-15 01:14 | XMS_ITS | Encounter Summary ---
Author Organization [facility] Address [facility] [place] [address] Care Team Providers Care Crab Meat Processor Name Role Phone ScottyNelia Disha Primary Care Provider Encounter Details Date Type Department Care Team (Latest Contact Info) Description 10/25/2023 Travel Social History Tobacco Use Types Packs/Day [...] AM EDT Appointment Hematology [place] [address] 01/31/2024 10:20 AM EDT Office Visit Gyne[place] [address] Rebecca Small MD [facility] [place] [address] 08/01/2024 11:30 AM EDT Office Visit Dermatology at [facility] [address] [place] [address] Phan Engle MD [facility] DR J[place] [address] documented as of this encounter Visit Diagnoses Not on filedocumented in this encounter Care Teams Crab Meat Processor Relationship Specialty Start Date End Date Disha Hayden [address] [place] [address] PCP - General Family Medicine 07/15/23 documented as of this encounter
--- OUTSIDE RECORDS SUMMARY | 2023-12-15 01:14 | XMS_ITS | Encounter Summary ---
Author Organization [facility] [address] Care Team Providers Care Well Blower Name Role Phone Grecia Maddox MD Primary Care Provider [phone] Reason for Referral * Physical Therapy (Routine) - Closed Specialty Diagnoses / Procedures Referred By Contyoav diaz Referred To Contact Physical Therapy Diagnoses Endometrial cancer Dyspareunia, female Rebecca Small MD [facility] [place] [address] Physical Therapy, [address] [address] Referral ID Status Reason Start Date Expiration Date V isits Requested Visits Authorized [id number] Closed Evaluate and Treat 04/26/2023 10/23/2023 12 12 Encounter Details Date Type Department Care Team ([facility] st Contact Info) Description 04/26/2023 Orders Only [place] [address] Elis Warner, RN Endometrial cancer; Dyspareunia, female Social History Tobacco Use Types Packs/Day Years [...] AM EDT Appointment Hematology [place] [address] 01/31/2024 10:20 AM EDT Office Visit [place] [address] Rebecca Small MD [facility] [place] [address] 08/01/2024 11:30 AM EDT Office Visit Dermatology at [place] [address] [place] [address] Phan Engle MD [facility] [address] JESS [place] [address] Scheduled Referrals Name Type Priority Associated Diagnoses Orde r Schedule Referral to Physical Therapy Outpatient Referral Routine Endometrial cancer Dyspareunia, female Ordered: 04/26/2023 documented as of this encounter Visit Diagnoses Diagnosis Endometrial cancer Malignant neoplasm of corpus uteri, except isthmus Dyspareunia, female Dyspareunia documented in this encounter Care Teams Well Blower Relationship Specialty Start Date End Date Grecia Maddox MD [address] [place] [address] PCP - General Family Medicine 05/16/18 07/14/23 documented as of this encounter
--- OUTSIDE RECORDS SUMMARY | 2023-12-15 01:14 | XMS_ITS | Encounter Summary ---
Author Organization [facility] Address [facility] [place] [address] Care Team Providers Care Orientor Name Role Phone ScottyNeliaDisha Primary Care Provider Encounter Details Date Type Department Care Team (Late st Contact Info) Description 09/28/2023 10:15 AM EDT Office Visit Dermatology at [facility] [address] [place] [address] Phan Coon MD [facility] [place] [address] AK (actinic keratosis) Social History Tobacco Use Types Packs/Day Years [...] as of this encounter Progress Notes * Phan Coon MD - 09/28/2023 10:15 AM EDT Images from the original note were not included. DEPARTMENT OF DERMATOLOGY Medical Dermatology Clinic Provider: PHAN COON MD Patient's preferred name Shilpa Preferred contact method for results []Phone [x]myD-H []Letter Detailed phone message OK? Y Are there any other people with whom we may discuss your care? Jignesh Mckinnon ([facility]) Past Medical History Date, location, treatment Melanoma N Dysplastic nevi N SCC N BCC BCC, left shoulder s/p excision ~ AKs UV Exposure & Protection Other relevant past medical history + Blood clots + Ovarian Cancer + High blood pressure Family History [...] of Present Illness: Daphne Pickard is a 58 y.o. Patient returns to clinic today for a focused visit of the left felipe for treatment with cryotherapy for a biopsy proven mild actinic keratosis. Last visit at Dermatology: 07/15/2023 Medications: Reviewed in eD-H Allergies: Reviewed in eD-H Skin Examination: Focused skin examination of the left felipe was normal with the exception of the findings below. Assessment/Plan #. Biopsy Proven-Actinic Keratosis - Ill-defined gritty papule on the left felipe. (Figure 1) - Explained etiology, natural history, and premalignant potential of these lesions. - Discussed treatment with cryotherapy, including the risks and benefits. - Patient elects to proceed with cryotherapy today. - Instructed patient to return to clinic for re-evaluation if lesion(s) does not resolve as expected with this treatment. Procedure: Destruction of lesion(s) with cryotherapy (LN2). Location(s): As noted above Number: 1 Discussed procedure and expectations including risks and benefits. Verbal consent obtained. Treatedwith LN2. There were no complications; Patient tolerated the procedure well. Post-procedure expectations and wound care were reviewed. Figure 1. Residual erythema, scar, ? AK Photo(s) taken and charted with patient's verbal consent. Other: N/A RTC: June for FBS2023 hx of BCC [x]Note routed to church secretary []Recall placed in scheduling system []Appointment scheduled at checkout Scribe attestation: Mili Joseph CMA has performed the documentation for this encounter in the presence of and acting as a scribe for PHAN COON MD. I performed the above scribed service and agree with the accuracy of the documentation in this encounter. Reviewed and signed by: PHAN COON MD Dermatology [facility] documented in this encounter Plan of Treatment Upcoming Encounters Date Type Department Care Team (Late st Contact Info) Description 01/31/2024 9:15 AM EDT Appointment [place] [address] 01/31/2024 10:20 AM EDT Office Visit [place] [address] Rebecca Small MD [facility] DR [place]EC[place] [address] 08/01/2024 11:30 AM EDT Office Visit Dermatology at [place] [address] [place] [address] Phan Coon MD [facility] DR JESS HERNAN[place] [address] documented as of this encounter Visit Diagnoses Diagnosis AK (actinic keratosis) Actinic keratosis documented in this encounter Care Teams Orientor Relationship Specialty Start Date End Date Disha Hayden [address] [place] [address] PCP - General Family Medicine 07/15/23 documented as of this encounter
--- OUTSIDE RECORDS SUMMARY | 2023-12-15 01:14 | XMS_ITS | Encounter Summary ---
Author Organization [facility] Address [facility] [place] [address] Care Team Providers Care Paper Sorter Name Role Phone Grecia Maddox MD Primary Care Provider [phone] Encounter Details Date Type Department Care Team (Latest Contact Info) Description 01/27/2023 Travel Social History Tobacco Use Types Packs/Day [...] AM EDT Appointment [place]ematology [place] [address] 01/31/2024 10:20 AM EDT Office Visit [place] [address] Rebecca Small MD [facility] DR [place] [address] 08/01/2024 11:30 AM EDT Office Visit Dermatology at [facility] [address] [place] [address] Phan Engle MD [facility] DR JESS [place] [address] documented as of this encounter Visit Diagnoses Not on filedocumented in this encounter Care Teams Paper Sorter Relationship Specialty Start Date End Date Grecia Maddox MD [address] [place] [address] PCP - General Family Medicine 05/16/18 07/14/23 documented as of this encounter
--- OUTSIDE RECORDS SUMMARY | 2023-12-15 01:14 | XMS_ITS | Encounter Summary ---
Author Organization [facility] [address] Care Team Providers Care Dentist Attendant Name Role Phone Grecia Maddox MD Primary Care Provider Encounter Details Date Type Department Care Team (Late st Contact Info) Description 11/02/2022 Orders Only [place] [address] Beverly Pillai, RN Social History Tobacco Use Types Packs/Day Years [...] AM EDT Appointment Hematology [place] [address] 01/31/2024 10:20 AM EDT Office Visit [place] [address] Rebecca Small MD [facility] [place] [address] 08/01/2024 11:30 AM EDT Office Visit Dermatology at [facility] [address] [place] [address] Phan Engle MD [facility] DR JESS HERNAN[place] [address] documented as of this encounter Visit Diagnoses Not on filedocumented in this encounter Care Teams Dentist Attendant Relationship Specialty Start Date End Date Grecia Maddox MD [address] [place] [address] PCP - General Family Medicine 05/16/18 07/14/23 documented as of this encounter
--- OUTSIDE RECORDS SUMMARY | 2023-12-15 01:14 | XMS_ITS | Encounter Summary ---
Author Organization [facility] Address [facility] [place] [address] Care Team Providers Care Military Technology Specialist Name Role Phone Grecia Maddox MD Primary Care Provider [phone] Encounter Details Date Type Department Care Team (Latest Contact Info) Description 04/22/2023 Travel Social History Tobacco Use Types Packs/Day [...] AM EDT Appointment Hematology [place] [address] 01/31/2024 10:20 AM EDT Office Visit [place] [address] Rebecca Small MD [facility] [place] [address] 08/01/2024 11:30 AM EDT Office Visit Dermatology at [facility] [address] [place] [address] Phan Engle MD [facility] DR J[place] [address] documented as of this encounter Visit Diagnoses Not on filedocumented in this encounter Care Teams Military Technology Specialist Relationship Specialty Start Date End Date Grecia Maddox MD [address] [place] [address] PCP - General Family Medicine 05/16/18 07/14/23 documented as of this encounter
--- OUTSIDE RECORDS SUMMARY | 2023-12-15 01:14 | XMS_ITS | Encounter Summary ---
Author Organization [facility] [place] [address] Care Team Providers Care Block Trader Name Role Phone Grecia Maddox MD Primary Care Provider [phone] Encounter Details Date Type Department Care Team (Late st Contact Info) Description 01/29/2023 Telephone [place] [address] Paula Patricia Social History Tobacco Use Types Packs/Day Years [...] AM EDT Appointment Hematology [place] [phone] 01/31/2024 10:20 AM EDT Office Visit [place] [address] Rebecca Small MD [facility] [place] [address] 08/01/2024 11:30 AM EDT Office Visit Dermatology at [facility] [address] [place] [address] Phan Engle MD [facility] [place] [address] documented as of this encounter Visit Diagnoses Not on filedocumented in this encounter Care Teams Block Trader Relationship Specialty Start Date End Date Grecia Maddox MD [address] [place] [address] PCP - General Family Medicine 05/16/18 07/14/23 documented as of this encounter
--- OUTSIDE RECORDS SUMMARY | 2023-12-15 01:14 | XMS_ITS | Encounter Summary ---
Author Organization [facility] [place] [address] Care Team Providers Care Vice President Of Talent Management Name Role Phone ScottyNelia Disha Primary Care Provider [phone] Reason for Visit * Reason Comments Follow-up 3 Month follow up Encounter Details Date Type Department Care Team (Late st Contact Info) Description 07/26/2023 10:00 AM EST Office Visit [place] [address] Danita Martinez MD [facility] [place] [address] Malignant neoplasm of right ovary Social History [...] Sign Reading Time Taken Comments Blood Pressure 120/70 07/26/2023 10:09 AM EST Pulse 67 07/26/2023 10:09 AM EST Temperature 36.7 ??C (98.1 ??F) 07/26/2023 10:[address] Respiratory Rate 16 07/26/2023 10:09 AM EST Oxygen Saturation 97% 07/26/2023 10:09 AM EST Inhaled Oxygen Concentration - - Weight 76.2 kg (168 lb) 07/26/2023 10:09 AM EST Height - - Body Mass Index 27.52 04/26/2023 9:58 AM EST documented in this encounter Progress Notes * Danita Martinez MD - 07/26/2023 10:00 AM EST Division [place] [address] Surveillance Visit: Patient Active Problem List Diagnosis [...] bowels. Shehas had increased comfort with uberlube. She has seen pelvic floor PT. No new medical/surgical issues. Objective: Vitals: 07/26/23 1009 BP: 120/70 Patient Position: Sitting Pulse: 67 Resp: 16 Temp: 36.7 ??C (98.1 ??F) TempSrc: Temporal SpO2: 97% Weight: 76.2 kg (168 lb) Body mass index is 27.52 kg/m??. Body surface area is 1.88 meters squared. Physical Exam Constitutional: Appearance: Normal [...] follow CA-125 and CA19-9. DANITA MARTINEZ MD documented in this encounter Plan of Treatment Upcoming Encounters Date Type Department Care Team (Late st Contact Info) Description 01/31/2024 9:15 AM EDT Appointment Hematology [place] [address] 01/31/2024 10:20 AM EDT Office Visit Gy[place] [address] Danita Martinez MD [facility] [place] [address] 08/01/2024 11:30 AM EDT Office Visit Dermatology at [facility] [address] [place] [address] Phan Engle MD [facility] [place] [address] documented as of this encounter Visit Diagnoses Diagnosis Malignant neoplasm of right ovary Malignant neoplasm of ovary documented in this encounter Care Teams Vice President Of Talent Management Relationship Specialty Start Date End Date Disha Hayden [address] [place] [address] PCP - General Family Medicine 07/15/23 documented as of this encounter
--- OUTSIDE RECORDS SUMMARY | 2023-12-15 01:14 | XMS_ITS | Encounter Summary ---
Author Organization [facility] Address [address] [place] [address] Care Team Providers Care Freelance Interpreter/Translator Name Role Phone Keiko Reddy MD Primary Care Provider [phone] Encounter Details Date Type Department Care Team (Late st Contact Info) Description 06/30/2011 Abstract [facility] Hand & Upper Extremity Program - [address] [address] Chay Garcia MD [address] [place] [address] Social History Tobacco Use Types [...] on filedocumented in this encounter Care Teams Freelance Interpreter/Translator Relationship Specialty Start Date End Date Keiko Reddy MD [address] [address] PCP - General 01/05/11 documented as of this encounter
--- OUTSIDE RECORDS SUMMARY | 2023-12-15 01:14 | XMS_ITS | Encounter Summary ---
Author Organization [facility] Address [address] [place] [address] Care Team Providers Care Honing Machine Try Out Setter Name Role Phone Keiko Reddy MD Primary Care Provider [phone] Reason for Referral * Consult, Test and Treat (Routine) - Closed Specialty Diagnoses / Procedures Referred By Marie diaz Referred To Contact Diagnoses Elbow pain Chay Garcia MD [address] [place] [id number] Referral ID Status Reason Start Date Expiration Date V isits Requested Visits Authorized [id number] Closed Specialty Services Required 06/24/2011 1 1 Question Answer Reason for Request: Functional Capacity Evaluation Date of Onset or Injury: 11/2010 Reason for Visit * Reason Comments Elbow Problem Right Encounter Details Date Type Department Care Team (Late st Contact Info) Description 06/24/2011 8:00 EST Office Visit [facility] Hand & Upper Extremity Program - [address] [place] [address] Chay Garcia MD [address] [place] [address] Elbow pain (Primary Dx); Radial nerve injury Social History Tobacco Use Types Packs/Day Years Used Date Smoking Tobacco: Former Alcohol Use Standard Drinks/Week Comments Not Asked 0 (1 standard drink = 0.6 oz pur e alcohol) Sex and Gender Information Value Date Recorded Sex Assigned at Not on file Gender Identity Not on file Sexual Orientation Not on file documented as of this encounter Progress Notes * Chay Garcia MD - 06/24/2011 6889 EST Daphne Pickard is a 45 y.o.yo female presenting in clinic today. Chief Complaint Patient presents with ??? Elbow Problem Right History reviewed. No pertinent past medical history. Patient Active Problem List Diagnoses Date Noted ??? 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 Elbow pain 06/24/2011 History reviewed. No pertinent past surgical history. History reviewed. No pertinent family history. History Social History ??? Marital Status: Single Spouse Name: N/A Number of Children: N/A ??? Years of Education: N/A Social History Main Topics ??? Smoking status: Former Smoker ??? Smokeless tobacco: None ??? Alcohol Use: None ??? Drug Use: None ??? Sexually Active: None Other Topics Concern ??? None Social History Narrative ??? None Medications Prior to Today's Visit Medication Sig ??? meloxicam (MOBIC) 15 mg tablet Take 15 mg by mouth daily. ??? gabapentin (NEURONTIN) 300 mg capsule Take 300 mg by mouth 3 times daily. No Known Allergies Summary of today's visit: Dear Keiko: I had the pleasure today of seeing Daphne Pickard for a second opinion consultation for a posterior interosseous nerve contusion of the right elbow. Kimani Floyd, one of our orthopedic residents, was seeing patients in the office with me today and has done an excellent job at summarizing her history, physical exam findings, electrodiagnostic studies and our recommendations. Briefly, it appears as though Daphne has a contusion to her posterior interosseous nerve. The likelihood is that this will recover spontaneously if given time. She is unable to do her current job. She has been under the care of Fernando Stinson. My recommendation, at this point in time, is, again, to allow this to recover properly. With regards to return to work and recommendations, I have left that up to her, but I think if she feels she is unable to do her current job she should have a functional capacity evaluation to determine what she is currently capable of doing and then abiding by those recommendations until the nerve recovers. In terms of doing things in the intervening time period while it is recovering, certainly one can try medications for nerve pain, antiinflammatory medications and I also suggested to her possible acupuncture treatment which also may make things better as things recover. Because this is likely a self-limited problem and will likely recover without needing any surgical intervention, I have opted to leave the followup appointment open. She is always welcome to see me again in 3 to 4 months if things have not recovered, as, at that point in time, my recommendations would be to obtain an EMG and nerve conduction study prior to being seen with me to discuss the statusof her recovery. Thanks again for your kind referral. Please do not hesitate to contact me if you have any further questions. Sincerely yours, Chay Garcia MD 06/24/2011 17:24 * Kimani Floyd MD - 06/24/2011 1436 EST Reason for Consultation: We are consulted by Dr Keiko Reddy MD for a second opinion regarding the patient's radial nerve palsy. Chief Complaint: Right elbow pain, right forearm and wrist pain and weakness. Dear Dr Reddy: We saw Ms Pickard today in clinic at your request to review her right radial nerve injury. At this point, she is complaining mostly of pain with a neurogenic pattern. She reports the pain is mostly inher hand and forearm and it occurs with any motion of her elbow. She also has pain directly over her elbow on the lateral side. She states that the pain causes some weakness in her wrist and that this has inhibited her from being at her job. She was recommended for full return to work by Dr Stinsonand had some concerns with this given the pain that she is in. She also is concerned that despite having undergone 6 months of healing, she had not made as much progress as she was hoping for. Her original injury was back in 11/2010 when she struck her right elbow on a window. She was seen by Dr Garces as well as Dr Stinson. An EMG showed moderate contusion and possible entrapment of the right radial nerve above the radial tunnel. She has been treated conservatively. Past medical history is reviewed and is notable for anxiety, depression, nephrolithiasis and amenorrhea. Past Surgical History: Reviewed, not pertinent. Allergies: No known drug allergies. Medications: She takes citalopram and had previously been taking Meloxicam and gabapentin, althoughshe states she is not taking this anymore. Family history is reviewed and not pertinent. Social History: The patient is a former smoker. She lives by herself. She works in [employer]. Objective: General: No acute distress. Lungs: Breathing nonlabored. Heart: No cyanosis. Right upper extremity: On comparison of the extensor mass of the right forearm to the contralateralside, there is some decreased bulk. She has tenderness over the radial tunnel. She has normal sensation throughout her hand, including the radial distribution. She has 4/5 wrist extensor strength. She has 4/5 elbow extension strength. She has 4+ to 5/5 EPL, FPL, PAD DAB and carbon setter. She has a 2+ palpable radial pulse. Diagnostic Imaging: None. Assessment and Plan: Ms Pickard is a 45-year-old female who has a right radial nerve injury. At thispoint, I believe the patient has been treated appropriately and she is undergoing an as expected course. Radial nerve injury can take upwards of a year to have full recovery and decrease in symptoms.We discussed this with Ms Pickard and that she would likely regain function and also have decreased pain. She was quite concerned that she had been recommended to go back to full-time work. We recommended that she undergo a functional capacitance test to help determine what her limitations would be and offered to provide a referral for this. We also discussed that there are alternative treatments for pain such as acupuncture that we would be happy to refer her to as well. The patient is going tocontinue with conservative therapy. We told that she can continue to do as much as she wants with regard to her arm. She is going to return on an as-needed basis. PLAN: We will happily see her again should she have any troubles. Dr Reddy, thank you for this referral. We are happy to help with this patient. Please call with anyquestions or concerns. Sincerely, This patient was seen with Dr Chay Garcia. documented in this encounter Miscellaneous Notes * Scanned Note-Null - Services Host, Scan - 06/25/2011 1520 EST documented in this encounter Plan of Treatment Scheduled Referrals Name Type Priority Associated Diagnoses Orde r Schedule AMB CONSULT PHYSICAL THERAPY Outpatient Referral Routine Elbow pain Ordered: 06/24/2011 documented as of this encounter Visit Diagnoses Diagnosis Elbow pain- Primary Pain in joint, upper arm Radial nerve injury Injury to radial nerve documented in this encounter Discontinued Medications Medication Sig Discontinue Reason Start Date End Da te meloxicam (MOBIC) 15 mg tablet Take 15 mg by mouth daily. Patient Stopped Taking 06/24/2011 gabapentin (NEURONTIN) 300 mg capsule Take 300 mg by mouth 3 times daily. Patient Stopped Taking 06/24/2011 documented as of this encounter Historical Medications * This list may reflect changes made after this encounter. Medication Sig Dispensed Refills Start Date End Date ibuprofen (MOTRIN) 200 mg tablet Take 200 mg by mouth every 6 hours. added in this encounter Care Teams Honing Machine Try Out Setter Relationship Specialty Start Date End Date Keiko Reddy MD [address] [id number] PCP - General 01/05/11 documented as of this encounter
--- OUTSIDE RECORDS SUMMARY | 2023-12-15 01:14 | XMS_ITS | Encounter Summary ---
Author Organization [facility] Address [facility] [address] Care Team Providers Care Central Office Inspector Name Role Phone Grecia Maddox MD Primary Care Provider [phone] Reason for Visit * Reason Comments Established 3 month f/u Encounter Details Date Type Department Care Team (Late st Contact Info) Description 10/30/2022 9:20 AM EDT Office Visit [place] [address] Danita Martinez MD [facility] DR [place]EC[place] [address] Malignant neoplasm of right ovary Social History [...] Sign Reading Time Taken Comments Blood Pressure 133/81 10/30/2022 9:30 AM EDT Pulse 75 10/30/2022 9:30 AM EDT Temperature 36.2 ??C (97.2 ??F) 10/30/2022 9:30 AM ED T Respiratory Rate 18 10/30/2022 9:30 AM EDT Oxygen Saturation 99% 10/30/2022 9:30 AM EDT Inhaled Oxygen Concentration - - Weight 78.3 kg (172 lb 11.2 oz) 10/30/2022 9:30 AM EDT Height - - Body Mass Index 28.29 07/24/2022 12:32 PM EST documented in this encounter Progress Notes * Danita Martinez MD - 10/30/2022 9:20 AM EDT Division [place] [address] Surveillance Visit: Patient Active Problem List Diagnosis [...] Her postoperative course was uncomplicated. She has been doing well since surgery and generally feels well. She has had some weight gain that she is discouraged about. She does have some hot flashes as well. She has occasional difficulty moving her bowels. Normal appetite and energy. She does have some dyspareunia, she has not been able to connect with pelvic floor PT. Objective: Vitals: 10/30/22 0930 BP: 133/81 Patient Position: Sitting Pulse: 75 Resp: 18 Temp: 36.2 ??C (97.2 ??F) TempSrc: Tympanic SpO2: 99% Weight: 78.3 kg (172 lb 11.2 oz) Body mass index is 28.29 kg/m??. Body surface area is 1.9 meters squared. Physical Exam Constitutional: Appearance: Normal appearance. Cardiovascular: Rate and Rhythm: Normal rate and regular rhythm. Pulses: Normal pulses. Heart sounds: Normal heart sounds. Pulmonary: Effort: Pulmonary effort is normal. No respiratory distress. Breath sounds: Normal breath sounds. No wheezing. Abdominal: General: Abdomen is flat. Palpations: Abdomen is soft. Genitourinary: Comments: Normal external genitalia (labia majora [...] endometrioid ovarian cancer diagnosed 03/2022, noadjuvant therapy. JOSIANE on exam. Awaiting CA-125. RTC 3 mos with repeat labs. Will re-refer to pelvicfloor PT for dyspareunia. DANITA MARTINEZ MD * Lucho Shelley LNA - 10/30/2022 9:20 AM EDT Examination chaperoned by LNA. Consuelo On 10/30/2022 In PAINTER AND DECORATOR APPRENTICE/ONC 3k documented in this encounter Plan of Treatment Upcoming Encounters Date Type Department Care Team (Late st Contact Info) Description 01/31/2024 9:15 AM EDT Appointment Hematology [place] [address] 01/31/2024 10:20 AM EDT Office Visit [place] [address] Danita Martinez MD [facility] DR [place]EC[place] [address] 08/01/2024 11:30 AM EDT Office Visit Dermatology at [facility] [address] [place] [address] Phan Engle MD [facility] [address] [place] [address] documented as of this encounter Visit Diagnoses Diagnosis Malignant neoplasm of right ovary Malignant neoplasm of ovary documented in this encounter Care Teams Central Office Inspector Relationship Specialty Start Date End Date Grecia Maddox MD [address] [place] [address] PCP - General Family Medicine 05/16/18 07/14/23 documented as of this encounter
--- OUTSIDE RECORDS SUMMARY | 2023-12-15 01:14 | XMS_ITS | Encounter Summary ---
Author Organization [facility] [place] [address] Care Team Providers Care Fast Food Cashier Name Role Phone Grecia Maddox MD Primary Care Provider [phone] Encounter Details Date Type Department Care Team (Late st Contact Info) Description 10/30/2022 Orders Only Gyne[place] [address] Rebecca Small MD [facility] [place] [address] Endometrial cancer Social History Tobacco Use Types Packs/Day Years [...] AM EDT Appointment Hematology [place] [phone] 01/31/2024 10:20 AM EDT Office Visit [place] [phone] Rebecca Small MD [facility] [place] [address] 08/01/2024 11:30 AM EDT Office Visit Dermatology at [facility] [address] [place] [address] Phan Engle MD [facility] [address] [address] documented as of this encounter Results * Cancer Antigen 125 (10/30/2022 9:24 AM EDT) CA 125 9.4 <=38.1 unit/mL [facility] Comment: CA 125 Reference Interval ??Postmenopausal: 6.2 to 31.5 U/mL. ??Premenopausal: 6.9 to 45.9 U/mL. ??Pre and Postmenopausal subjects combined: 6.4 to 38.1 U/mL. This result was generated using a Tammy Marcos immunoassay. ??Results obtained from other methods or manufacturers cannot be used interchangeably with this method. Blood 10/30/2022 9:24 AM EDT 10/30/2022 9:33 AM EDT Narrative Resulting Agency Comment Spec In Lab Rebecca Small MD CHEMISTRY ORDERABL ES [facility] [place] [address] documented in this encounter Visit Diagnoses Diagnosis Endometrial cancer Malignant neoplasm of corpus uteri, except isthmus documented in this encounter Care Teams Fast Food Cashier Relationship Specialty Start Date End Date Grecia Maddox MD [address] [place] [address] PCP - General Family Medicine 05/16/18 07/14/23 documented as of this encounter
--- OUTSIDE RECORDS SUMMARY | 2023-12-15 01:14 | XMS_ITS | Encounter Summary ---
Author Organization Health system Address [address] [place] [address] Care Team Providers Care Healthcare Applications Analyst Name Role Phone Unknown, Provider Primary Care Provider [phone] Reason for Visit * Reason Onset Date Comments Other 12/30/2010 referral Encounter Details Date Type Department Care Team (Late st Contact Info) Description 12/30/2010 Telephone [facility] Rehabilitation Therapy - [address] [address] Sorin Mast, RN Other (referral) Social History Tobacco Use Types Packs/Day Years Used Date Smoking Tobacco: Never Assessed Sex and Gender Information Value Date Recorded Sex Assigned at Not on file Gender Identity Not on file Sexual Orientation Not on file documented as of this encounter Miscellaneous Notes * Telephone Encounter - Salima Mast, HAYLEY - 12/30/2010 8308 EDT Received faxed referral for EMG for Daphne from Dr Reddy and referral indicated that this is a workers comp case. TC to Daphne ([phone]) to get information and [facility][phone][facility] to obtain this information. I spoke withJudy who stated she would follow up and get back to me. Kaley, from the insurance carrier, calledme and provided me with the following information: [facility] [address] [place], [address] Case # [id number] lead person: Kaley Roche stated that a determination had not yet been made as to whether or not this would be a workmans comp case and she requested MD notes to review. I sent her Dr Reddy's note dated 12/23/10 and the referral from Dr Reddy's office. Kaley stated this information would be reviewed and she would get backto me. If Kaley needs additional information she will call Daphne and request additional information. I called Daphne to let her know I had received her insurance information and that I was waiting for a determination on the prior auth request for an EMG. I offered to schedule an appointment forher but she declined and stated she wanted to wait to make the appointment until the insurance makes a determination on coverage. I also asked if she would call preregistration at [facility] to update her information including this WC case and Daphne stated that she would do that at the time that anappointment was made. documented in this encounter Plan of Treatment Not on file documented as of this encounter Visit Diagnoses Not on filedocumented in this encounter Care Teams Healthcare Applications Analyst Relationship Specialty Start Date End Date Unknown, Provider, PCP - General 04/14/10 01/04/11 documented as of this encounter
--- OUTSIDE RECORDS SUMMARY | 2023-12-15 01:14 | XMS_ITS | Encounter Summary ---
Author Organization [facility]ly [facility] Address [facility] [place] [address] Care Team Providers Care Manufacturing Engineering Technician Name Role Phone Disha Hayden Primary Care Provider [phone] Reason for Referral * Occupational Therapy (Routine) - Pending Review Specialty Diagnoses / Procedures Referred By Marie diaz Referred To Contact Occupational Therapy Diagnoses Cognitive decline Hx antineoplastic chemo Rebecca Small MD [facility] [place] [address] [facility], [address] [address] Referral ID Status Reason Start Date Expiration Date Visits Requested Visits Authorized [id number] Pending Review Evaluate and Treat 10/29/2023 04/26/2024 12 12 Encounter Details Date Type Department Care Team (Late st Contact Info) Description 10/28/2023 Orders Only [place] [address] Elis Warner, RN Cognitive decline; Endometrial cancer; Hx antineoplastic chemo Social History Tobacco Use [...] AM EDT Appointment Hematology [place] [address] 01/31/2024 10:20 AM EDT Office Visit [place] [address] Rebecca Small MD [facility] [place] [address] 08/01/2024 11:30 AM EDT Office Visit Dermatology at [facility] [address] [place] [address] Phan Engle MD [facility] [address] [place] [address] Scheduled Referrals Name Type Priority Associated Diagnoses Orde r Schedule Referral to Occupational Therapy Outpatient Referral Routine Cognitive decline Hx antineoplastic chemo Ordered: 10/29/2023 documented as of this encounter Visit Diagnoses Diagnosis Cognitive decline Unspecified persistent mental disorders due to conditions classified elsewhere Endometrial cancer Malignant neoplasm of corpus uteri, except isthmus Hx antineoplastic chemo Personal history of antineoplastic chemotherapy documented in this encounter Care Teams Manufacturing Engineering Technician Relationship Specialty Start Date End Date Disha Hayden [address] [place] [address] PCP - General Family Medicine 07/15/23 documented as of this encounter
--- OUTSIDE RECORDS SUMMARY | 2023-12-15 01:14 | XMS_ITS | Encounter Summary ---
Author Organization [facility] Address [facility] [place] [address] Care Team Providers Care Hotel General Manager Name Role Phone ScottyNelia Disha Primary Care Provider Encounter Details Date Type Department Care Team (Latest Contact Info) Description 07/15/2023 Travel Social History Tobacco Use Types Packs/Day [...] AM EDT Appointment Hematology [place] [address] 01/31/2024 10:20 AM EDT Office Visit [place] [address] Rebecca Small MD [facility] [place] [address] 08/01/2024 11:30 AM EDT Office Visit Dermatology at [facility] [address] [place] [address] Phan Engle MD [facility] [address] [place] [address] documented as of this encounter Visit Diagnoses Not on filedocumented in this encounter Care Teams Hotel General Manager Relationship Specialty Start Date End Date Disha Hayden [address] [place] [address] PCP - General Family Medicine 07/15/23 documented as of this encounter
--- OUTSIDE RECORDS SUMMARY | 2023-12-15 01:15 | XMS_ITS | Encounter Summary ---
Author Organization [facility] Address [facility] [place] [address] Care Team Providers Care Toll Gate Keeper Name Role Phone Grecia Maddox MD Primary Care Provider [phone] Encounter Details Date Type Department Care Team (Latest Contact Info) Description 04/24/2022 Travel Social History Tobacco Use Types Packs/Day Years Used Date Smoking Tobacco: Former Cigarettes Q uit: 1999 Smokeless Tobacco: Never Alcohol Use Standard Drinks/Week Comments Yes 2 [...] AM EDT Appointment Hematology [place] [address] 01/31/2024 10:20 AM EDT Office Visit [place] [address] Rebecca Small MD [facility] [place] [address] 08/01/2024 11:30 AM EDT Office Visit Dermatology at [facility] [address] [place] [address] Phan Engle MD [facility] [place] [address] documented as of this encounter Visit Diagnoses Not on filedocumented in this encounter Care Teams Toll Gate Keeper Relationship Specialty Start Date End Date Grecia Maddox MD [address] [place] [address] PCP - General Family Medicine 05/16/18 07/14/23 documented as of this encounter
--- OUTSIDE RECORDS SUMMARY | 2023-12-15 01:15 | XMS_ITS | Encounter Summary ---
Author Organization [facility] Address [facility] [place] [address] Care Team Providers Care Commissary Representative Name Role Phone Grecia Maddox MD Primary Care Provider [phone] Encounter Details Date Type Department Care Team (Latest Contact Info) Description 04/20/2022 Multidisciplinary Ca re Committee [place] [address] Rebecca Small MD [facility] [address] Social History Tobacco Use Types Packs/Day Years [...] Progress Notes * Rebecca Small MD - 04/20/2022 4:00 PM EST Presenting sxs: 56yo presented with LLQ lump and pain, pelvic pressure, bladder fullness Imagin.8 x 8.7 x 11.5 cm mixed cystic and solid mass within the anterior midline pelvis likely representing right ovarian neoplasm Labs: CA 19-9 494, CEA 1.8, CA 125 42.2 Preop path: Surgery performed: Lap BSO > TLH with peritoneal, omental biopsies Findings Path grade 1 stage 1c1 endometrioid Recommendation: observation, could consider lymphadenectomy documented in this encounter Plan of Treatment Upcoming Encounters Date Type Department Care Team (Late st Contact Info) Description 01/31/2024 9:15 AM EDT Appointment Hematology [place] [address] 01/31/2024 10:20 AM EDT Office Visit [place] [address] Rebecca Small MD [facility] [address] 08/01/2024 11:30 AM EDT Office Visit Dermatology at [facility] [address] [place] [address] Phan Engle MD [facility] [address] [place] [address] documented as of this encounter Visit Diagnoses Not on filedocumented in this encounter Care Teams Commissary Representative Relationship Specialty Start Date End Date Grecia Maddox MD [address] [place] [address] PCP - General Family Medicine 05/16/18 07/14/23 documented as of this encounter
--- OUTSIDE RECORDS SUMMARY | 2023-12-15 01:15 | XMS_ITS | Encounter Summary ---
Author Organization [facility] [place] [address] Care Team Providers Care Registered Client Associate Name Role Phone Grecia Maddox MD Primary Care Provider [phone] Reason for Visit * Auth/Cert Specialty Diagnoses / Procedures Referred By Contyoav t Referred To Contact Diagnoses Ovarian mass OVARIAN MASS Procedures PRO LAP, RMV ADNEXAL STRUCTURE LAPAROSCOPY, REMOVAL OF ADNEXA (WRVU 11.35) Danita Small MD [facility] [place] [address] [facility] Referral ID Status Reason Start Date Expiration Date Visits Re quested Visits Authorized [id number] 1 1 Encounter Details Date Type Department Care Team (Latest Contact Info) Description 04/02/2022 6:03 AM [facility] - 04/02/2022 3:30 PM [facility] Hospital Encounter [place] [address] Danita Small MD [facility] [place] [address] S/P hysterectomy Discharge Disposition: Home Social History Tobacco Use Types Packs/Day Years Used Date Smoking Tobacco: Former Cigarettes Q uit: 2000 Smokeless Tobacco: Never Alcohol Use Standard Drinks/Week Comments Yes 2 (1 standard drink = 0.6 oz pur e alcohol) Sex and Gender Information Value Date Recorded Sex Assigned at Not on file Gender Identity Not on file Sexual Orientation Not on file documented as of this encounter Last Filed Vital Signs Vital Sign Reading Time Taken Comments Blood Pressure 98/60 04/02/2022 2:15 PM EST Pulse 75 04/02/2022 2:15 PM EST Temperature 36.3 ??C (97.3 ??F) 04/02/2022 1:00 PM ES T Respiratory Rate 11 04/02/2022 2:15 PM EST Oxygen Saturation 92% 04/02/2022 2:15 PM EST Inhaled Oxygen Concentration - - Weight 71.6 kg (157 lb 12.8 oz) 04/02/2022 6:19 AM EST Height 166.4 cm (5' 5.5) 04/02/2022 6:19 AM EST Body Mass Index 25.86 04/02/2022 6:19 AM EST documented in this encounter Discharge Instructions * Patient Instructions* Cordelia Novak MD - 04/02/2022 7:31 AM EST PATIENT DISCHARGE INSTRUCTIONS Gynecologic Oncology phone number: [phone] (Nurse ext [phone] then 4; appointment ext [phone] then 4). After hours and on weekends please call hospital screen printing machine operator helper at [phone] and ask for Gynecologic Oncologist thermometer production worker. Call your doctor if you develop: --A fever over 101 degrees --Severe pain --Increasing pain, redness, or discharge at any of your incisions --Heavy vaginal bleeding-soaking through a pad an hour --It is normal to have continuous or intermittent light spotting from the vagina for up to 6 weeks following hysterectomy -Follow-up with Dr. Danita Small on 04/24/22 at 1:40PM -Please use enoxaparin (Lovenox) starting 04/03/22 for 14 days after surgery to prevent blood clot (this 40mg daily is a prophylactic dose and it is okay to use ibuprofen with this) Activity level: Let your body guide you- try to avoid grunting/groaning/straining for about 2 weeks. If you feel you did too much please listen to your body and back off. No sexual intercourse, no tampons, nothing in the vagina for 8 weeks. Diet: You may resume your regular diet. Be sure you drink plenty of fluids. Bowel Regimen: Please use tina-colace (senna-S or docusate-senna) 1-2 tablets twice daily for the entire time that you are taking narcotic pain medication to keep your bowel movements soft and regular. You may consider using this post- operatively even if you are not using narcotic pain medication. You can increase this to up to 8 tablets a day (and may take 6-12 hours for effect). If you are constipated or have not had a bowel movement in 2 days, you may add in polyethylene glycol (Miralax) 17g(one capful) 1-2 times daily (may take 1-2 days for effect). If this is ineffective you may add Milk of Magnesia 30mL (2 Tablespoons) daily (may take 30minutes - 6 hours to work). The next step is to use Magnesium Citrate 1 bottle (295mL)- this usually produces a bowel movement in 30 minutes-3 hours. Please call if you have not had a bowel movement in 3-4 days. Driving: Do not drive until you are off of all narcotic medications and you are not feeling pain; usually between a couple of days to 2 weeks. Shower/Bath: Showering is fine. Short baths are okay but you should avoid having any abdominal incision submerged for more than 10-15 minutes for the next 2 weeks. Wound Care: Your incisions are closed with dissolvable stitches. The stitches do not need to be removed- they will dissolve on their own. You can remove the dressing above your belly button tomorrow morning. Pain Control: For your post-operative pain please use ibuprofen, acetaminophen, heating pad, and narcotic pain medication (oxycodone) for your pain management. Your goal is to be able to take severalshort walks every day (increase the duration each day) and to be able to sleep at night. If you areunable to do these things using the ibuprofen and acetaminophen and heating pad then you will need to use the narcotic pain medication (oxycodone) for breakthrough pain. You should be able to use less oxycodone every couple days and require no breakthrough narcotic pain medication in about 1-4 days. Please use ibuprofen (Advil/Motrin) 600mg every 6 hours around the clock (with food) for the next 5-7 days. After that, use as needed. Please use acetaminophen (Tylenol) 650mg every 6 hours as needed (or 1000mg every 8 hours as needed). Do not exceed 3000mg of acetaminophen from any source in 24 hours. Please use oxycodone every 4-6 hours as needed for pain that ???breaks through?? the ibuprofen andacetaminophen. Please take your medication exactly as prescribed. Read all instructions that come with your medication. Using narcotic pain medication (such as oxycodone, hydrocodone, hydromorphone [Dilaudid], morphine,fentanyl, or tramadol [Ultram]) may cause addiction. While addiction is more common in people with a personal or family history of addiction, it can occur in anyone. Taking more than the prescribed amount of medication or using with alcohol or other drugs can causeyou to stop breathing resulting in coma, brain damage, or . Opioids (oxycodone, hydrocodone, hydromorphone [Dilaudid], morphine, fentanyl, tramadol [Ultram]) can slow reaction time, cause drowsiness, or cloud judgement. It is unsafe for you to drive or operate heavy machinery while taking this medication. Opioids (oxycodone, hydrocodone, hydromorphone [Dilaudid], morphine, fentanyl, tramadol [Ultram]) are at risk of being diverted by anyone with access to your home. Opioids should be stored in a safe and secure place, such as a locked cabinet or safe. Unused opioids (oxycodone, hydrocodone, hydromorphone [Dilaudid], morphine, fentanyl, tramadol [Ultram]) should be disposed of according to the label or patient information. If there are no specific instructions, medications may be returned to a take-back location or mixed with a small amount of water and an undesirable waste substance such as coffee grounds or cat litter. documented in this encounter Medications at Time of Discharge Medication Sig Dispensed Refills Start Date End Date acetaminophen (Tylenol) 325 mg Tablet Take 2 tablets by mouth every 6 hours as needed for Pain. 90 tablet 1 04/02/2022 lisinopriL (Zestril) 10 mg Tablet Take 10 mg by mouth daily. 02/24/2022 Magtab 84 mg Tablet Sustained Release Take 1 tablet by mouth 2 times daily. 12/03/2021 aspirin 325 mg Tablet Take 325 mg by mouth daily. enoxaparin (Lovenox) 40 mg/0.4 mL Syringe Inject 0.4 mLs subcutaneously daily for 14 days. 5.6 mL 04/03/2022 04/17/2022 oxyCODONE (Roxicodone) 5 mg Tablet Take 1 [...] 09/28/2023 cyclobenzaprine (FLEXERIL) 10 mg Tablet 01/19/2018 09/28/2023 documented as of this encounter Progress Notes * Mariaa Miranda RN - 04/02/2022 4:00 PM EST 300 ml sterile water instilled in pt ivan, then ivan catheter dc'd, balloon intact. Pt able to voide 300 ml of clear, yellow urine. Patient alert and oriented, vital signs stable. Reviewed discharge instructions; patient and verbalized understanding. Copy of instruction sheet with contactnumbers for questions/concerns with patient. Pain assessment documented. Patient escorted out of department via wheelchair with RN. * Ashley Haines RN - 04/02/2022 7:01 AM EST POC blood glucose level of [address] Mckeon. Pt aaox3, asymptomatic. No new orders received. documented in this encounter H&P Notes * Cordelia Novak MD - 04/02/2022 7:08 AM EST Home Child Care Provider Inpatient Admission Interval Note I have reviewed the pre-procedure H&P completed by Dr. Small on 03/19/2022. (x) Condition unchanged since H&P originally performed. See interval note below. Interval Note: S: Daphne Pickard feels well today. No complaints / concerns. Denies any changes to her past medical or past surgical history. No new medications or allergies. Anticipating same day surgery. Preferred pharmacy is [facility] in [place]. O: BP 120/80 Pulse 67 Temp 36.7 ??C (98.1 ??F) (Temporal) Resp 14 Ht 166.4 cm (5' 5.5) Wt 71.6 kg (157 lb 12.8 oz) LMP (LMP Unknown) SpO2 97% BMI 25.86 kg/m?? Gen: Sitting in bed, appears comfortable CV: Normal rate, regular rhythm, no murmurs appreciated Resp: Clear to auscultation bilaterally, no wheezes / crackles Abd: Soft, nontender, nondistended Ext: Warm, well perfused, non-tender *remainder of exam deferred to the OR Recent Results (from the past 24 hour(s)) POCT Glucose Result Value Ref Range POC Glucose 64 (L) 65 - 199 mg/dL Latest Reference Range & Units 03/19/22 10:57 CA 125 <=38.1 unit/mL 42.4 (H) CA 19-9 <=35.0 u/ml 494.0 (H) CEA <=3.8 ng/mL 1.8 (H): Data is abnormally high A/P: 56 y.o. female presents for planned laparoscopic BSO with staging based on frozen section for pelvic mass. No interval changes in history or physical exam. -- Surgical consent reviewed with patient and placed in the chart; previously signed 03/19/22. -- VTE prophylaxis: SCDs -- Proceed to OR for planned procedure. Opioid risk counseling and consent I counseled the patient about risks of opioids including addiction, overdose, diversion. I reviewedproper disposal of unused medications. She signed the consent form for treatment of acute pain withopioid medications. Opioid Risk Tool Female Male 1. Family history of Substance Abuse Alcohol [] 1 [] 3 Illegal Drugs [] 2 [] 3 Prescription Drugs [] 4 [] 4 2. Personal History of Substance Abuse Alcohol [] 3 [] 3 Illegal Drugs [] 4 [] 4 Prescription Drugs [] 5 [] 5 3. Age (catalina box if 16-45) [] 1 [] 1 4. History of Preadolescent Sexual Abuse [] 3 [] 0 5. Psychological Disease Attention Deficit Disorder, Obsessive Compulsive D/o, Bipolar, Schizophrenia [] 2 [] 2 Depression [x] 1 [] 1 TOTAL: 1 Comments about ORT in relation to this patient: Opioid Risk Category: low risk 0-[address] discussed with Dr. Small, Attending Steeplechase Jockey Oncologist Cordelia Novak MD, PGY3 04/02/2022 Associated attestation - Danita Small MD - 04/02/2022 3:10 PM EST Into see patient prior to her surgery. We reviewed the planned procedure. Consents complete and in her chart. Questions answered. documented in this encounter Miscellaneous Notes * Brief Op Note - Danita Small MD - 04/02/2022 11:28 AM EST Brief Operative Note Patient Name: Daphne Pickard : [id number] MR#: [id number] Case Date: 04/02/2022 Surgeon: Surgeon(s) and Role: * Danita Small MD - Primary * Lexi Bauer MD - Resident * Cordelia Novak MD - Resident Preoperative diagnosis: OVARIAN MASS Postoperative diagnosis: OVARIAN MASS Procedure(s) (LRB): LAPAROSCOPY, TOTAL HYST, UTERUS<250GMS, REM TUBE &/OR OVARY (WRVU 15) (Bilateral) Anesthesia: General Findings: On EUA firm mass anteriorly in pelvis, imobile. On laparoscopy large complex mass replacing the right adnexa. Normal uterus and left tube and ovary. Small cystic lesions on the peritoneum. Evidence of prior endometriosis. The visualized interestines were normal in appearance. Complications: None Intake: Intraprocedure Crystalloid Total Intake lactated ringers infusion 1200.00 mL Total Intake 1200 mL Output Urine Output 100 mL Blood Loss 25 mL Total Output 125 mL Net Net Volume 1075 mL Transfusion No data found in the last 1 encounters. Output: Estimated Blood Loss: 25 mL Urine Output:: 100 mL Other Output: (no other output recorded) Drains: None Specimens removed during surgery: Order Name Source Comment Collection Info Order Time SPECIMEN TO PATHOLOGY OR# 23, ex:3-3123 OVARIAN MASS portion of RIGHT ovary excision YES, Please perform frozen section 04/02/2022 8:55 AM Number of tissue samples (in container) 1 Time specimen removed from patient: 8:54 AM SPECIMEN TO PATHOLOGY OR #23 ex:[id number] OVARIAN MASS remainder of RIGHT tube and ovary excision 04/02/2022 9:10 AM Time specimen removed from patient: 8:55 AM Number of tissue samples (in container) 1 CYTOPATHOLOGY NON-GYNECOLOGICAL OR#23, ex: [id number] 04/02/2022 9:10 AM Pertinent clinical data and significant therapy: OVARIAN MASS Clinical impression: OVARIAN MASS Procedure Type: Other (please specify in Comments Field below) Specimen Type: Pelvic wash Description and source of specimen: Pelvic washings SPECIMEN TO PATHOLOGY OR#23, ex:[id number] OVARIAN MASS LEFT tube and ovary excision 04/02/2022 9:18 AM Time specimen removed from patient: 9:17 AM Number of tissue samples (in container) 1 SPECIMEN TO PATHOLOGY OR# 23 ex:[id number] OVARIAN MASS Omental biopsy biopsy 04/02/2022 10:01 AM Time specimen removed from patient: 9:55 AM Number of tissue samples (in container) 1 SPECIMEN TO PATHOLOGY OR# 23 ex:3-3123 OVARIAN MASS Posterior cul-de-sac biopsy biopsy 04/02/2022 10:01 AM Time specimen removed from patient: 9:57 AM Number of tissue samples (in container) 1 SPECIMEN TO PATHOLOGY OR# 23 ex:3-3123 OVARIAN MASS Bladder flap biopsy biopsy 04/02/2022 10:01 AM Time specimen removed from patient: 9:59 AM Number of tissue samples (in container) 1 SPECIMEN TO PATHOLOGY OR#23 ex:3-3123 OVARIAN MASS RIGHT pelvic side wall biopsy biopsy 04/02/2022 10:25 AM Time specimen removed from patient: 10:24 AM Number of tissue samples (in container) 1 SPECIMEN TO PATHOLOGY OR#23 ex:3-3123 OVARIAN MASS Uterus and cervix excision 04/02/2022 10:41 AM Time specimen removed from patient: 10:05 AM Number of tissue samples (in container) 1 Disposition: awakened from anesthesia, extubated and taken to the recovery room in a stable condition, having suffered no apparent untoward event. Condition: doing well without problems Attestation: Case Date: 04/02/2022 I was present and I participated during the entire procedure (does not need to include opening and closing). (Please see the Surgical Encounter Summary for any Implant and Specimen details pertinent to this patient.) Surgical Infection Prevention Bundle Used? Yes Infection present at time of surgery?: No Chlorhexidine wipes in Same Day prior to surgery: Yes Expected bowel surgery? No. Fingerstick glucose checked in Same Day: No Chlorhexidine-alcohol skin prep: No Pre-op IV antibiotics: Cefazolin + Metronidazole Vaginal prep: Yes. Povidone-iodine Open case? No. * Op Note - Danita Small MD - 04/02/2022 8:16 AM EST [facility] Operative Note Patient Name: Daphne Pickard : [id number] MR#: [id number] Case Date: 04/02/2022 Surgeon: Surgeon(s) and Role: * Danita Small MD - Primary * Lexi Bauer MD - Resident * Cordelia Novak MD - Resident Preoperative diagnosis: OVARIAN MASS Postoperative diagnosis: OVARIAN MASS Procedure(s) (LRB): LAPAROSCOPY, TOTAL HYST, UTERUS<250GMS, REM TUBE &/OR OVARY (WRVU 15) (Bilateral) Findings: On EUA firm mass anteriorly in pelvis, imobile. On laparoscopy large complex mass replacing the right adnexa. Normal uterus and left tube and ovary. Small cystic lesions on the peritoneum. Evidence of prior endometriosis. Anesthesia: General Estimated Blood Loss: 25 mL Specimens removed during surgery: Order Name Source Comment Collection Info Order Time SPECIMEN TO PATHOLOGY OR# 23, ex:3-3123 OVARIAN MASS portion of RIGHT ovary excision YES, Please perform frozen section 04/02/2022 8:55 AM Number of tissue samples (in container) 1 Time specimen removed from patient: 8:54 AM SPECIMEN TO PATHOLOGY OR #23 ex:[id number] OVARIAN MASS remainder of RIGHT tube and ovary excision 04/02/2022 9:10 AM Time specimen removed from patient: 8:55 AM Number of tissue samples (in container) 1 CYTOPATHOLOGY NON-GYNECOLOGICAL OR#23, ex: [id number] 04/02/2022 9:10 AM Pertinent clinical data and significant therapy: OVARIAN MASS Clinical impression: OVARIAN MASS Procedure Type: Other (please specify in Comments Field below) Specimen Type: Pelvic wash Description and source of specimen: Pelvic washings SPECIMEN TO PATHOLOGY OR#23, ex:3-3123 OVARIAN MASS LEFT tube and ovary excision 04/02/2022 9:18 AM Time specimen removed from patient: 9:17 AM Number of tissue samples (in container) 1 SPECIMEN TO PATHOLOGY OR# 23 ex:3-3123 OVARIAN MASS Omental biopsy biopsy 04/02/2022 10:01 AM Time specimen removed from patient: 9:55 AM Number of tissue samples (in container) 1 SPECIMEN TO PATHOLOGY OR# 23 ex:3-3123 OVARIAN MASS Posterior cul-de-sac biopsy biopsy 04/02/2022 10:01 AM Time specimen removed from patient: 9:57 AM Number of tissue samples (in container) 1 SPECIMEN TO PATHOLOGY OR# 23 ex:3-3123 OVARIAN MASS Bladder flap biopsy biopsy 04/02/2022 10:01 AM Time specimen removed from patient: 9:59 AM Number of tissue samples (in container) 1 SPECIMEN TO PATHOLOGY OR#23 ex:3-3123 OVARIAN MASS RIGHT pelvic side wall biopsy biopsy 04/02/2022 10:25 AM Time specimen removed from patient: 10:24 AM Number of tissue samples (in container) 1 SPECIMEN TO PATHOLOGY OR#23 ex:3-3123 OVARIAN MASS Uterus and cervix excision 04/02/2022 10:41 AM Time specimen removed from patient: 10:05 AM Number of tissue samples (in container) 1 Drains: * No LDAs found * Surgical Closure: Primary Closure - skin incision is completely closed without any wires, billy, drains or other devices Disposition: awakened from anesthesia, extubated and taken to the recovery room in a stable condition, having suffered no apparent untoward event. Condition: doing well without problems (Please see the Surgical Encounter Summary for any Implant and Specimen details pertinent to this patient.) HPI/Surgical Indications: Daphne Pickard is a 56 y.o. female, who presents for evaluation of pelvic lump. She has a history of depression, endometriosis, pulmonary embolism (provoked and treated with Eliquis). She initially noted left lower quadrant lump while riding over the summer. She also developed discomfort that continue to bother her with movement. She also developed urgency of urination and pelvic pressure. She has a feeling of bladder fullness all the time with multiple urination throughout the night. The discomfort is constant throughout the day, not worse with certain positioning or movementat the time just pain. She does not have any associated dysuria or hematuria. No diarrhea or constipation. She also has discomfort during intercourse. 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 It also showed mild increase in the size of prominent subcentimeter retroperitoneal lymph node, indeterminate. There was no evidence of solid organ or osseous metastasis within the abdomen or pelvis. US showed a 2.3mm EMS. ?? Shilpa is here with her partner, Dani for initial consultation. She has h/o ovarian cyst that disappeared in her 20's. She has been always feeling full land bloating. No fever, chills. No new night sweats. Her weight has been stable. Her energy has been fine. No swelling of the legs. No vaginal discharge, bleeding or dark stools. No discharge. She denies any nausea, emesis, bloating, early satiety, weight change, change in bowel or bladder pattern. Procedure Description: Informed consent was signed. The patient was taken the operating room she was put sleep under general anesthesia. She is placed in dorsolithotomy position. SCDs were in place. She did not receive any antibiotic prophylaxis initially. Over the course of the procedure when it was decided that a hysterectomy would be performed she received Ancef and Flagyl. She did not receiveany heparin. A verbal timeout was performed. Exam under anesthesia was performed with findings noted above. The vagina and perineum were prepped with Betadine and a Hulka uterine manipulator was placed in direct visualization. Attention was turned the abdomen. The abdomen prepped and the patient was draped. Local anesthetic was injected the base the umbilicus and a small incision was made. A varies needle was inserted and pneumoperitoneum was obtained low opening pressures. A 5 mm trocar was inserted and diagnostic laparoscopy was performed with findings noted above. There was no evidence of g ross metastatic disease in the upper abdomen. The patient was placed in steep Trendelenburg. Additional 5 mm trochars were placed in the right left lower quadrant under direct visualization. Pelvic washings were obtained there were filmy adhesions of the mass to the rectal epiploic fat and the anterior abdominal wall which were taken down with gentle traction. The retroperitoneal space was entered the right side lateral to the infundibulopelvic ligament. The infundibulopelvic limb was cauterized and transected well away from the ureter and the tube and ovary dissected off the attachments to the pelvic sidewall as well as the uterus LigaSure electrocautery was used to perform this procedure. The data specimen placed in the posterior cul-de-sac. The umbilical incision were extended to Accommodate a 15 Endo Catch bag. The bag was deployed in the abdomen the edges of the bag were delivered through the abdominal incision. 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 The pathologistexpressed that this was concerning for a metastatic implant but deferred differentiation between malignant and borderline to permanent pathology. The left tube and ovary was removed in a similar fashion to the right. The decision was made to proceed with peritoneal biopsies as well as a hysterectomy. Biopsies were taken from the adhesions of the mass to the anterior abdominal wall and rectal epiploic fat. There were noted to be small cystic lesions on the peritoneum and an area of this was excised using LigaSure and sent as a right pelvic sidewall biopsy. A portion infracolic omentum was biops ied and removed the through the umbilical incision. The Hulka uterine manipulator was removed and asmall Vcare was sutured to the anterior lip of the cervix. The round ligaments were cauterized bilaterally and a bladder flap was created. The bladder was dissected off the underlying cervix. The uterine vessels were skeletonized cauterized and transected bilaterally. Sequential bites were then taken pale adjacent cervix to level level of the Vcare cup was reached. An L-hook was used to make a colpotomy and this was carried around circumferentially. The vaginal cuff was then closed with 0 Vicryl V-Loc suture in a running fashion starting 1 apex and the other. The suture was cut and the needlewas removed from the abdomen. The operative sites were reexamined and found to be hemostatic. The fascia at the umbilical incision was reapproximated with 0 Vicryl in interrupted sutures using a Marcelino Rodriguez needle. Pneumoperitoneum was evacuated and all instruments were of the abdomen. The skin was closed with 4 Monocryl subcuticular stitch. All instruments were removed from the vagina. The patient tolerated the procedure well and was awakened in the operating room. Sponge and instrument counts were correct x2. Surgical Infection Prevention Bundle Used? Yes Infection present at time of surgery?: No Chlorhexidine wipes in Same Day prior to surgery: Yes Expected bowel surgery? No. Fingerstick glucose checked in Same Day: Yes Chlorhexidine-alcohol skin prep: Yes Pre-op IV antibiotics: Cefazolin + Metronidazole Vaginal prep: Yes. Povidone-iodine Open case? No Attestation: Case Date: 04/02/2022 I was present and I participated during the entire procedure (does not need to include opening and closing). DANITA SMALL MD 04/02/2022 documented in this encounter Plan of Treatment Upcoming Encounters Date Type Department Care Team (Late st Contact Info) Description 01/31/2024 9:15 AM EDT Appointment [place] [address] 01/31/2024 10:20 AM EDT Office Visit [place] [address] Danita Small MD [facility] [address] [place] [address] 08/01/2024 11:30 AM EDT Office Visit Dermatology at [address] [place] [id number] Phan Engle MD [facility] DR JESS [place] [address] documented as of this encounter Procedures Procedure Name Priority Date/Time Associated Diagnosis Comments SPECIMEN TO PATHOLOGY Routine 04/02/2022 10:41 AM EST POCT GLUCOSE Routine 04/02/2022 10:40 AM EST SPECIMEN TO PATHOLOGY Routine 04/02/2022 10:25 AM EST SPECIMEN TO PATHOLOGY Routine 04/02/2022 10:01 AM EST SPECIMEN TO PATHOLOGY Routine 04/02/2022 10:01 AM EST SPECIMEN TO PATHOLOGY Routine 04/02/2022 10:01 AM EST SPECIMEN TO PATHOLOGY Routine 04/02/2022 9:19 AM EST NON-PLANT CONTROL AIDE FINAL REPORT Routine 04/02/2022 9:10 AM EST SPECIMEN TO PATHOLOGY Routine 04/02/2022 9:10 AM EST CYTOPATHOLOGY NON-GYNECOLOGICAL Routine 04/02/2022 9:10 AM EST SURGICAL PATHOLOGY REPORT Routine 04/02/2022 8:55 AM EST SPECIMEN TO PATHOLOGY STAT 04/02/2022 8:55 AM EST Laparoscopy W Tot Hysterectuterus <=250 Gram W Tube/Ovary (82412) Yes 04/02/2022 7:32 AM EST OVARIAN MASS POCT GLUCOSE Routine 04/02/2022 6:30 AM EST documented in this encounter Results * Specimen to Pathology (04/02/2022 10:41 AM EST) AP Specimen 04/02/2022 10:4 1 AM EST 04/02/2022 10:41 AM EST Narrative [facility] - 04/02/2022 10:41 AM EST Specimen requisition ordered. ??Separate Pathology report to follow Authorizing Provider Result Carmenza Small MD PATHOLOGY/CYTOLOGY ORDERABLES [facility] [place] [address] * POCT Glucose (04/02/2022 10:40 AM EST) POC Glucose 137 65 - 199 mg/dL [facility] Comment: Supplemental ranges: <140 mg/dL before meals <180 mg/dL all other times of the day Blood 04/02/2022 10:4 0 AM EST 04/02/2022 10:40 AM EST Narrative Authorizing Provider Result Carmenza Small MD POINT OF CARE TEST ORDERABLES Performing Organization Address [facility] Co de Phone Number [facility] [place] [address] * Specimen to Pathology (04/02/2022 10:25 AM EST) AP Specimen 04/02/2022 10:2 5 AM EST 04/02/2022 10:25 AM EST Narrative [facility] - 04/02/2022 10:25 AM EST Specimen requisition ordered. ??Separate Pathology report to follow Authorizing Provider Result Carmenza Small MD PATHOLOGY/CYTOLOGY ORDERABLES Performing Organization Address [facility]/ZIP Co de Phone Number [facility] [place] [address] * Specimen to Pathology (04/02/2022 10:01 AM EST) AP Specimen 04/02/2022 10:0 1 AM EST 04/02/2022 10:01 AM EST Narrative [facility] - 04/02/2022 10:01 AM EST Specimen requisition ordered. ??Separate Pathology report to follow Authorizing Provider Result Carmenza Small MD PATHOLOGY/[place] [address] * Specimen to Pathology (04/02/2022 10:01 AM EST) AP Specimen 04/02/2022 10:0 1 AM EST 04/02/2022 10:01 AM EST Narrative [facility] - 04/02/2022 10:01 AM EST Specimen requisition ordered. ??Separate Pathology report to follow Authorizing Provider Result Carmenza Small MD PATHOLOGY/CYTOLOGY ORDERABLES Performing Organization Address [facility] [place] [place] [address] * Specimen to Pathology (04/02/2022 10:01 AM EST) AP Specimen 04/02/2022 10:0 1 AM EST 04/02/2022 10:01 AM EST Narrative [facility] - 04/02/2022 10:01 AM EST Specimen requisition ordered. ??Separate Pathology report to follow Authorizing Provider Result Carmenza Small MD PATHOLOGY/CYTOLOGY ORDERABLES Performing Organization Address City/[facility]/[place] [address] * Specimen to Pathology (04/02/2022 9:19 AM EST) AP Specimen 04/02/2022 9:19 AM EST 04/02/2022 9:19 AM EST Narrative [facility] - 04/02/2022 9:19 AM EST Specimen requisition ordered. ??Separate Pathology report to follow Authorizing Provider Result Carmenza Small MD PATHOLOGY/CYTOLOGY ORDERABLES [facility] [place] [place] [address] * Non-Steeplechase Jockey Final Report (04/02/2022 9:10 AM EST) Non-Steeplechase Jockey Final Report [id number] ? Location: [facility]; [facility]; A The signing pathologist has (i) examined the relevant preparation(s) for the specimen(s) and (ii) rendered or confirmed the diagnosis(es). . ? Non-Steeplechase Jockey Final DIAGNOSIS Negative for Malignancy Electronically signed by: ?Parul Sibley MD Verified: ??04/06/2022 11:59 ??Pathologist Performed at: ??-[facility] Dept. of Pathology, [place] [address] Literacy Specialist: Jenelle Valdes MD, FCAP, ??CLIA Certificate: [id number] DISCUSSION Pelvic wash: Rare mesothelial cells with blood and mixed leukocytes. Cell block was examined. CLINICAL INFORMATION Specimen Source : Pelvic wash Pertinent Clinical Data and Significant Therapy: Ovarian mass Clinical Impression : Ovarian mass Pertinent Radiologic Findings ??: (not provided) Gross Description: Received ??fresh, approximately 30 mL total volume of ?? cloudy, red fluid. Total Preparation: Liquid-Based Prep 1; Cell Block 1. [facility] 04/02/2022 9:10 AM EST Danita Small MD PATHOLOGY/CYTOLOGY ORDERABLES [facility] [place] [address] * Cytopathology Non-Gynecological (04/02/2022 9:10 AM EST) AP Specimen 04/02/2022 9:10 AM EST 04/02/2022 9:10 AM EST Narrative [facility] - 04/02/2022 9:10 AM EST Specimen requisition ordered. ??Separate Pathology report to follow Danita Small MD PATHOLOGY/CYTOLOGY ORDERABLES Performing Organization Address [facility] [place] [place] [address] * Specimen to Pathology (04/02/2022 9:10 AM EST) AP Specimen 04/02/2022 9:10 AM EST 04/02/2022 9:10 AM EST Narrative [facility] - 04/02/2022 9:10 AM EST Specimen requisition ordered. ??Separate Pathology report to follow Danita Small MD PATHOLOGY/CYTOLOGY ORDERABLES Performing Organization Address [facility] [place] [address] * Surgical Pathology Report (04/02/2022 8:55 AM EST) FINAL DIAGNOSIS (AP) [id number] ? Location: [facility]; [facility]; The signing pathologist has (i) examined the relevant preparation(s) for the specimen(s) and (ii) rendered or confirmed the diagnosis(es). . 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 - ??Endometriotic cyst. - Benign right fallopian tube. B - Remainder of right ovary, excision: - Ovarian ??endometrioid ??carcinoma with focal squamous differentiation, FIGO1. - ??Endometriotic cyst. C - Left fallopian tube and ovary, excision: - Left ovary with ??endometriotic ??cyst, negative for malignancy. - Benign left fallopian tube. D - Omentum, biopsy: - Mature adipose tissue, negative for malignancy. E - Posterior cul-de-sac, biopsy: - Fibroadipose tissue, negative for malignancy. F - Bladder flap, biopsy: - Fibroadipose tissue, negative for malignancy. G - Right pelvic side wall, biopsy: - Fibroadipose tissue, negative for malignancy. H - Uterus and cervix, hysterectomy: - Inactive endometrium. - Endometrial polyp. - Adenomyosis. - Leiomyomata. - Benign cervix. Electronically signed by: ?Marija ELLISON, Aniceto Verified: ??04/21/2022 12:41 ??Pathologist Performed at: ??-[facility] Dept. of Pathology, [place] [address] Literacy Specialist: Jenelle Valdes MD, AP, ??[place] Certificate: [id number] SYNOPTIC Specimen ? Procedure: ??Total hysterectomy and bilateral salpingo-oophorectom y ? Right Ovary Integrity: ??Fragmented Tumor ? Tumor Site: ??Right ovary ? Tumor Size: ??11.5 Centimeters (cm) ? Histologic Type: ??Endometrioid carcinoma ? Histologic Grade: ??G1, well differentiated ? Ovarian Surface Involvement: ??Cannot be determined - fragmented specimen ? Fallopian Tube Surface Involvement: ??Not identified ? Other Tissue / Organ Involvement: ??Not identified ? Peritoneal / Ascitic Fluid Involvement: ??Malignant cells not identified ? Chemotherapy Response Score (CRS): ??No known presurgical therapy . SYNOPTIC Regional Lymph Nodes ? Regional Lymph Node Status: ??Not applicable (no regional lymph nodes ?submitted or found) Pathologic Stage Classification (pTNM, AJCC 8th Edition) ? pT Category: ??pT not assigned (cannot be determined based on available ?pathological information) ? pN Category: ??pN not assigned (no nodes submitted or found) Best Tumor Blocks for Future Studies ? Tumor Block(s): ??A3, B3 ? [facility] 2021 Q1 Release Comment: Per tumor board discussion, the fragmented right ovary specimen is ? retrieved in intact bag, and the surface tumor involvement is difficult to evaluate. Therefore, the tumor pT category is not assigned. Please correlate with clinics. DISCUSSION Correction Note: Per tumor board discussion, the fragmented right ovary specimen is ? retrieved ??in intact bag, and the surface tumor involvement is difficult to evaluate. Therefore, the tumor pT category is changed to not assigned. There are no other changes to the text of this report. ADDITIONAL STUDIES Block ? Antibody ? Result (Positive/Negative) B3 ? MLH1 ?Positive, intact nuclear staining ? MSH2 ?Positive, intact nuclear staining ? MSH6 ?Positive, intact nuclear staining ? PMS2 ?Positive, intact nuclear staining Interpretation: Immunostains for MLH1, MSH2, MSH6 and PMS2 reveal intact nuclear staining in tumor cells. ??In a very small percentage of tumors, there may still be an underlying hereditary defect in these DNA mismatch repair genes despite intact nuclear expression of the protein in tumor cells ?? . Genetic counseling and/or additional workup is indicated in patients with a family history that meets current criteria for HNPCC screening. ?? Further testing for microsatellite instability in available in the [facility] ([facility]) if the clinical suspicion for Lawrence syndrome remains high despite the intact mismatch repair protein expression Immunohistochemistry Studies: Formalin-fixed, paraffin-embedded tissue sections are studied using the polymer technique with appropriate positive and negative controls. ?These IHC studies provide the pathologist with adjunctive diagnostic information. Antibody specificity has been verified by testing antibodies on a series of in-house tissues with known immunohistochemical performance characteristics. The clinical interpretation of any antibody positive staining or its absence is evaluated within the context of clinical presentation, morphology, histopathological criteria and other diagnostic tests. Block ? Antibody ?Result (Positive/Negative) B3 ?ER ? positive B3 ?FL ? positive B3 ?P53 ?wild type expression pattern SPECIMEN(S) SUBMITTED A - portion of RIGHT ovary, excision (1) B - remainder of RIGHT tube and ovary, excision (1) C - LEFT tube and ovary, excision (1) . SPECIMEN(S) SUBMITTED D - Omental biopsy, biopsy (1) E - Posterior cul-de-sac biopsy, biopsy (1) F - Bladder flap biopsy, biopsy (1) G - RIGHT pelvic side wall biopsy, biopsy (1) H - Uterus and cervix, excision (1) CLINICAL INFORMATION Ovarian mass SPECIMEN PROCESSING A - Labeled/Fixative: Portion of right ovary, fresh for frozen section. Tissue Description: Fragmented, salpingo-oophorectom y. RIGHT OVARY ?? Size: 8 x 6 x 3 cm aggregate. ?? Outer Surface: [place]-white, disrupted. ?? Cut Surface: Aggregate of rubbery pink-white solid tissues, smooth cyst wall , and ??admixed softer, solid pale-soler tissues aggregating 3.5 x 2.6 x 1.0 cm. Right Fallopian Tube: 6.8 x 0.5 cm, fimbriated. Sections/Processing: The following tissue is submitted for frozen section: FS 1-account services representative right ovary. [employer] sections in 12 cassettes as follows: ?A1: ??FS 1 frozen section remnant/representati ve right ovary ?A2-A4: ??Softer, solid pale-soler tissue from right ovary ?A5-A6: ??Rubbery pink-white tissue from right ovary ?A7-A8: ??Rubbery cyst wall fragments from right ovary ?A9: ??Right Fallopian tube fimbria ?A10-A12: ??Right fallopian tube cross-sections B - Labeled/Fixative: Remainder of right tube and ovary, fresh. Quantity/Size: Multiple, 11.5 x 11.5 x 4 cm, 143 g. Tissue Description: Aggregate of primarily soft solid pale soler-pink tissues with some cyst wall. Areas of necrosis are identified. No residual ovarian parenchyma identified. No identified fallopian tube. Sections/Processing: [employer] sections in 7 cassettes labeled B1-B7. C - Labeled/Fixative: Left tube and ovary, fresh. Tissue Description: Intact, salpingo-oophorectom y. LEFT OVARY ?? Size: 2.0 x 2.0 x 1.3 cm. ?? Outer Surface: [place]-red, Abundant adhesions. ?? Cut Surface: Central smooth-walled cyst measuring 1.2 x 1.0 x 0.8 cm. Left Fallopian Tube: 6.2 x 0.5 cm, fimbriated. Sections/Processing: [employer] sections in 6 cassettes as follows: ?C1-C3: ??Left ovary, account services representative ?C4-C6: ??Left fallopian tube, entirely submitted D - Labeled/Fixative: Omental biopsy, fresh. Quantity/Size: Single, 6.0 x 4.7 x 1.0 cm. Tissue Description: Portion of fibroadipose tissue in keeping with omentum. No discrete lesions identified. Sections/Processing: [employer] sections in 3 cassettes labeled D1-D3. E - Labeled/Fixative: Posterior cul-de-sac biopsy, fresh. Quantity/Size: Single, 1.5 x 0.6 x 0.3 cm. . SPECIMEN PROCESSING Tissue Description: Fat and fibromembranous tissue fragment. Sections/Processing: Submitted en toto ??in 1 cassette labeled E1. F - Labeled/Fixative: Bladder flap biopsy, fresh. Quantity/Size: Single, 0.5 x 0.5 x 0.1 cm. Tissue Description: Cauterized red-brown fibrous membranous tissue. Sections/Processing: Submitted en toto ??in 1 cassette labeled F1. G - Labeled/Fixative: Right pelvic sidewall biopsy, fresh. Quantity/Size: Single, 1.6 x 1.0 x 0.2 cm. Tissue Description: [place]-pink fibromembranous tissue. Sections/Processing: Serially sectioned and entirely submitted in 1 cassette labeled G1. H - Labeled/Fixative: Uterus and cervix, fresh. Quantity: Single Size: Cornu to cornu: 3.5 cm Anterior to posterior: 2.1 cm Dome to Cervix: 6.1 cm Weight (overall): 38 g Tissue Description: Intact, simple hysterectomy. UTERUS Endometrium: 1.8 x 1.6 cm, smooth, glistening with a 0.5 x 0.4 cm flat endometrial polyp within the fundus. Myometrium: Averages 1.5 cm with 2 rubbery intramural nodules each measuring 0.5 cm in diameter. Serosa: Glistening and pink-soler. CERVIX Diameter: 2.5 cm Os: 0.6 cm, circular Sections/Processing: [employer] sections in 5 cassettes as follows: ?H1: ??Anterior cervix ?H2: ??Posterior cervix ?H3-H4: ??Anterior endomyometrium, full thickness with endometrial polyp ?H5: ??Posterior endomyometrium ??ajw ?Frozen Section FROZEN SECTION DIAGNOSIS AFS - Portion of right ovary: ?Endometrioid morphology with squamous differentiation. ?At least borderline, cannot exclude an endometrioid ?adenocarcinoma with squamous differentiation. Await ?additional sections. - JLG 04/02/22 09:28 Electronically signed by: ?Wale ELLISON, Sumit Garcia Verified: ??04/02/2022 9:34 ?? Pathologist Performed at: ??-[facility] Dept. of Pathology, [facility] This intraoperative consultation should be interpreted as a preliminary diagnosis pending review of the entire specimen and special studies, if any. A final Surgical Pathology report will follow this preliminary Frozen Section report(s). 04/21/2022 12:41 PM EST [facility] 04/02/2022 8:55 AM EST Danita Small MD PATHOLOGY/CYTOLOGY ORDERABLES [facility] [place] [address] * Specimen to Pathology (04/02/2022 8:55 AM EST) AP Specimen 04/02/2022 8:55 AM EST 04/02/2022 8:55 AM EST Narrative [facility] - 04/02/2022 8:55 AM EST Specimen requisition ordered. ??Separate Pathology report to follow Danita Small MD PATHOLOGY/CYTOLOGY ORDERABLES Performing Organization Address [facility]/ZIP Co de Phone Number [facility] [place] [address] * (ABNORMAL) POCT Glucose (04/02/2022 6:30 AM EST) POC Glucose 64(L) 65 - 199 mg/dL [facility] Comment: Supplemental ranges: <140 mg/dL before meals <180 mg/dL all other times of the day Blood 04/02/2022 6:30 AM EST 04/02/2022 6:30 AM EST Danita Small MD POINT OF CARE TEST ORDERABLES Performing Organization Address [facility] Co de Phone Number [facility] [place] [address] documented in this encounter Visit Diagnoses Diagnosis S/P hysterectomy Acquired absence of both cervix and uterus documented in this encounter Administered Medications Inactive Administered Medications - up to 3 most recent administrations Medication Order MAR Action Action Date Dose Rate Site acetaminophen (Tylenol) tablet 1,000 mg 1,000 mg, Oral, ONCE, 1 dose, On Juliette 04/02/22 at 0715, Maximum dose of acetaminophen is 4000 mg from all sources in 24 hours. When ordered for pain, acetaminophen should be given even when other ordered pain medications are indicated. , Day of Surgery (Day of Procedure), Routine Given 04/02/2022 6:54 AM EST 1,000 mg acetaminophen (Tylenol) tablet 650 mg 650 mg, Oral, EVERY 6 HOURS PRN, Starting on Juliette 04/02/22 at 1124, Until Juliette 04/02/22 at 1803, Pain, If multiple pain medications ordered, use acetaminophen first. Maximum dose of acetaminophen is 4000 mg from all sources in 24 hours. When ordered for pain, acetaminophen should be given even when other ordered pain medications are indicated., Routine Given 04/02/2022 12:20 PM EST 650 mg HYDROmorphone (Dilaudid) (0.2 mg/1 mL) injection syringe 0.4 mg 0.4 mg, Intravenous, EVERY 10 MIN PRN, Starting on Juliette 04/02/22 at 1128, Until Juliette 04/02/22 at 1559, Pain, For Moderate to Severe Pain (6-10 out of 10), Hold for respiratory rate less than 10 per minute. Maximum dose 3 mg over one hour including administrations in the OR. If multiple pain medications are ordered, start with HYDROmorphone or morphine and use fentaNYL for breakthrough pain, PACU Recovery, Routine Given 04/02/2022 1:06 PM EST 0.4 mg Given 04/02/2022 12:20 PM EST 0.4 mg Given 04/02/2022 11:53 AM EST 0.4 mg oxyCODONE (Roxicodone) tablet 5-10 mg 5-10 mg, Oral, EVERY 3 HOURS PRN, Starting on Juliette 04/02/22 at 1124, Until Juliette 04/02/22 at 1803, Pain, - If multiple pain medications ordered, use acetaminophen first. - If pain not relieved by acetaminophen first, administer oxycodone. - Initial dose 5 mg. - If pain control not adequate in 60 minutes, give additional 5 mg., Routine Given 04/02/2022 1:05 PM EST 5 mg documented in this encounter Active and Recently Administered Medications Times are shown in EST. Scheduled Medication Order 03/31/2022 04/01/2022 04/02/2022 acetaminophen (Tylenol) tablet 1,000 mg (COMPLETED) 1,000 mg, Oral, ONCE, 1 dose, On Juliette 04/02/22 at 0715, Maximum dose of acetaminophen is 4000 mg from all sources in 24 hours. When ordered for pain, acetaminophen should be given even when other ordered pain medications are indicated. , Day of Surgery (Day of Procedure), Routine 0654 (Given - Provid er: Ashley Haines RN) Continuous Medication Order 03/31/2022 04/01/2022 04/02/2022 lactated ringers infusion (CANCELED) 1,000 mL, at 100 mL/hr, Intravenous, CONTINUOUS, Starting on Juliette 04/02/22 at 0715, Until Juliette 04/02/22 at 1559, Day of Surgery (Day of Procedure) 0733 (New Bag - Prov ider: Oseas Lovell)1021 (New Bag - Provider: Oseas Lovell)1124 (Anesthesia Volume Adjustment - Provider: Oseas Lovell) PRN Medication Order 03/31/2022 04/01/2022 04/02/2022 acetaminophen (Tylenol) tablet 650 mg 650 mg, Oral, EVERY 6 HOURS PRN, Starting on Juliette 04/02/22 at 1124, Until Juliette 04/02/22 at 1803, Pain, If multiple pain medications ordered, use acetaminophen first. Maximum dose of acetaminophen is 4000 mg from all sources in 24 hours. When ordered for pain, acetaminophen should be given even when other ordered pain medications are indicated., Routine 1220 (Given - Provid er: Mariaa Miranda RN) BUpivacaine (pf) (Marcaine) (2.5 mg/mL) 0.25% injection (CANCELED) ONCE PRN, Starting on Juliette 04/02/22 at 1059, Until Juliette 04/02/22 at 1803, Intra-Operative (Intra-Procedure), Routine 1059 (Given - Provid er: Danita Small MD) HYDROmorphone (Dilaudid) (0.2 mg/1 mL) injection syringe 0.4 mg (CANCELED)(Linked Group 1) 0.4 mg, Intravenous, EVERY 10 MIN PRN, Starting on Juliette 04/02/22 at 1128, Until Juliette 04/02/22 at 1559, Pain, For Moderate to Severe Pain (6-10 out of 10), Hold for respiratory rate less than 10 per minute. Maximum dose 3 mg over one hour including administrations in the OR. If multiple pain medications are ordered, start with HYDROmorphone or morphine and use fentaNYL for breakthrough pain, PACU Recovery, Routine 1153 (Given - Provid er: Mariaa Miranda RN)1220 (Given - Provider: Mariaa Miranda RN)1306 (Given - Provider: Cary Urrutia RN) oxyCODONE (Roxicodone) tablet 5-10 mg 5-10 mg, Oral, EVERY 3 HOURS PRN, Starting on Juliette 04/02/22 at 1124, Until Juliette 04/02/22 at 1803, Pain, - If multiple pain medications ordered, use acetaminophen first. - If pain not relieved by acetaminophen first, administer oxycodone. - Initial dose 5 mg. - If pain control not adequate in 60 minutes, give additional 5 mg., Routine 1305 (Given - Provid er: Cary Urrutia RN) Linked Groups Order Group 1: HYDROmorphone (Dilaudid) (0.2 mg/1 mL) injection syringe 0.2 mg (CANCELED) 0.2 mg, Intravenous, EVERY 10 MIN PRN, Starting on Juliette 04/02/22 at 1128, Until Juliette 04/02/22 at 1559, Pain, For Mild to Moderate Pain (1-5 out of 10), Hold for respiratory rate less than 10 per minute. Maximum dose 3 mg over one hour including administrations in the OR. If multiple pain medications are ordered, start with HYDROmorphone or morphine and use fentaNYL for breakthrough pain, PACU Recovery, Routine Or HYDROmorphone (Dilaudid) (0.2 mg/1 mL) injection syringe 0.4 mg (CANCELED)Jump to med 0.4 mg, Intravenous, EVERY 10 MIN PRN, Starting on Juliette 04/02/22 at 1128, Until Juliette 04/02/22 at 1559, Pain, For Moderate to Severe Pain (6-10 out of 10), Hold for respiratory rate less than 10 per minute. Maximum dose 3 mg over one hour including administrations in the OR. If multiple pain medications are ordered, start with HYDROmorphone or morphine and use fentaNYL for breakthrough pain, PACU Recovery, Routine documented in this encounter Care Teams Registered Client Associate Relationship Specialty Start Date End Date Grecia Maddox MD [address] [place] [address] PCP - General Family Medicine 05/16/18 07/14/23 documented as of this encounter
--- OUTSIDE RECORDS SUMMARY | 2023-12-15 01:15 | XMS_ITS | Encounter Summary ---
[place] [address] Care Team Providers Care Dialer Name Role Phone Grecia Maddox MD Primary Care Provider Encounter Details Date Type Department Care Team (Late st Contact Info) Description 03/11/2022 Ancillary Procedure [place] [phone] Grecia Maddox MD [address] [place], [place] [address] Social History Tobacco Use Types Packs/Day Years [...] AM EDT Appointment Hematology [place] [phone] 01/31/2024 10:20 AM EDT Office Visit [place] [phone] Rebecca Small MD [facility] DR GYNECOLOGIC ONCOLOGY [place], [place] [id number] 08/01/2024 11:30 AM EDT Office Visit Dermatology at [address] [place] [phone] Phan Engle MD [facility] [place] [address] documented as of this encounter Procedures Procedure Name Priority Date/Time Associated Diagnosis Comments FILM LIBRARY STORAGE ONLY CT ABDOMEN AND PELVIS Routine 03/11/2022 12:00 AM EDT documented in this encounter Results * Film Library- Storage Only CT Abdomen & Pelvis (03/11/2022 12:00 AM EDT) Narrative [facility] - 03/27/2022 9:54 AM EDT This exam is auto-finalizing. It's purpose is for storage only. Grecia Maddox MD IMG FILM LIBRARY ORD ERABLES [place], [place] documented in this encounter Visit Diagnoses Not on filedocumented in this encounter Care Teams Dialer Relationship Specialty Start Date End Date Grecia Maddox MD [address] [place] [address] PCP - General Family Medicine 05/16/18 07/14/23 documented as of this encounter
--- OUTSIDE RECORDS SUMMARY | 2023-12-15 01:15 | XMS_ITS | Encounter Summary ---
Author Organization [facility] Address [facility] [place] [address] Care Team Providers Care Electrician Supervisor Airplane Name Role Phone Grecia Maddox MD Primary Care Provider [phone] Reason for Visit * Reason Comments Establish Care Pelvic pain/mass * Consultation (Urgent) - Closed Specialty Diagnoses / Procedures Referred By Marie diaz Referred To Contact Gynecology Oncology Diagnoses Intra-abdominal and pelvic swelling, mass and lump, unspecified site Princess Rdoríguez, [address] [place] [address] [facility] [employer] G[address] [place] [address] Referral ID Status Reason Start Date Expiration Date V isits Requested Visits Authorized [id number] Closed Consult, Test & Treat PCP Updated and/or Approved 03/12/2022 03/12/2023 6 6 Encounter Details Date Type Department Care Team (Late st Contact Info) Description 03/19/2022 9:00 AM EDT Office Visit Gyne[place] [address] Rebecca Small MD [facility] DR [place] [address] Pelvic mass in female (Primary Dx) Social History Tobacco Use Types [...] Sign Reading Time Taken Comments Blood Pressure 120/88 03/19/2022 9:11 AM EDT Pulse 64 03/19/2022 9:11 AM EDT Temperature 36.6 ??C (97.9 ??F) 03/19/2022 9:11 AM ED T Respiratory Rate 18 03/19/2022 9:11 AM EDT Oxygen Saturation 97% 03/19/2022 9:11 AM EDT Inhaled Oxygen Concentration - - Weight 72 kg (158 lb 11.7 oz) 03/19/2022 9:11 AM EDT Height 164 cm (5' 4.57) 03/19/2022 9:11 AM EDT Body Mass Index 26.77 03/19/2022 9:11 AM EDT documented in this encounter Progress Notes * Bon Mayo MD - 03/19/2022 9:00 AM EDT Division [place] [address] Gynecologic Oncology Clinic New Patient Visit Reason for visit: pelvic mass, referred by Princess Rodríguez [address] [place] [address] Problem List Patient Active Problem List Diagnosis Code ??? Trauma T14.90XA ??? 12/14/2017 ORIF right tibial plateau fx (Dr. Romero) S82.141A ??? 12/14/2017 ORIF right distal radius fracture (Dr. Romero) S52.91XA, S52.201A ??? 12/20/2017 ORIF left acetabulum for closed fracture of posterior wall of left acetabulum (Dr. Talamantes) S32.422A ??? Postoperative anemia due to acute blood loss D62 ??? Acute pulmonary embolus I26.99 ??? Pulmonary embolism I26.99 History of present illness: Daphne Pickard is a 56 y.o. female, [...] osseous metastasis within the abdomen or pelvis. Shilpa is here with her partner, Dani [...] change, change in bowel or bladder pattern. Gynecologic history: Menarche was approximately age 13 menopause approximately age 40 years. Number of pregnancies: 2 Spontaneous vaginal deliveries: 0 c-sections:0. Oral contraceptive/ control pill use: 3-4 years. Menopausal hormone therapy use: no. Other contraceptive history: No Pap smears: Last one in 2019. No abnormal pap smear Cancer screening 1. Mammography: Last one this year. 2. Colonoscopy: Last colo 3-4 years ago. (diverticulosis) Family history: Breast: No Endometrial:No Ovarian:No Colon:No Pancreas: Mother Other:N/a Brother has diabetes and hypertension Father has a kidney issues Past medical history Hypertension Hyperlipidemia Depression Pulmonary embolism- in setting of orthopaedic surgeries Endometriosis Left acetabulum fracture Fracture of the lower leg Fracture of the wrist Migraine headache Osteopenia Past surgical history carpal tunnel release Status post orthopedic surgery, multiple ORIF Trigger finger release Social history: Lives with her so and does not work. 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 Alcohol history: Socially Other drugs: No Herbal/alternative therapies: no. Performance status: Karnofsky Scale - 100 Medications Prior to Admission medications Medication Sig Start Date End Date Taking? Authorizing Provider rOPINIRole (REQUIP) 0.5 mg Tablet Take 0.5 mg by mouth nightly. PROVIDER, HISTORICAL apixaban (ELIQUIS) 5 mg Tablet Take 1 tablet by mouth 2 times daily. 02/16/18 Reinaldo Romero MD cyclobenzaprine (FLEXERIL) 10 mg Tablet 01/19/18 PROVIDER, HISTORICAL acetaminophen (TYLENOL) 500 mg Tablet Take 2 tablets by mouth every 6 hours. Continue the Tylenol around the clock for 10 days after surgery, (12/30/2017). Then may take if needed per package insert. Do not take more than 3,000 mg of Tylenol in 24 hours. 12/24/17 Kathy Tanner PA Allergies Allergies Allergen Reactions ??? Gabapentin Nausea And Vomiting Vital signs: BP 120/88 (Patient Position: Sitting) Pulse 64 Temp 36.6 ??C (97.9 ??F) (Temporal) Resp 18 Ht 164 cm (5' 4.57) Wt 72 kg (158 lb 11.7 oz) SpO2 97% BMI 26.77 kg/m?? Physical examination General: She is alert and oriented, well-groomed and dressed, no obvious distress. She ambulates easily. HEENT: PERRLA, no scleral icterus or corneal arcus. Mucus membranes were moist. Neck was supple andwithout thyromegaly or adenopathy. Lungs: Clear to auscultation bilaterally Heart: RRR, no murmur, rubs, gallop Abdomen:Soft, non distended, tender mobile mass palpable in lower abdomen. No HSM Pelvic examination: Normal external genitalia. No lesions of the vulva, clitoris, urethral meatus, perineal body, or perianal area. Speculum exam demonstrates normal vaginal and cervical mucosa, no lesions or nodules. On bimanual examination, the uterus is mobile, unable to palpate mass with vaginal exam Rectovaginal exam: confirms the above. Extremities: No edema. Laboratory/pathology/imaging studies: As discussed above, in the history of present illness. Impression/plan: Daphne Pickard is a 56 y.o. woman with pelvic mass on CT and US. I do not have access to her her images today, but have requested these. Assuming there is no evidence of metastatic cancer, I recommended she undergo a LSC BSO with staging based on frozen section. We reviewed risks of surgery including bleeding, infection, injury to surrounding organs (bladder, bowel, ureter, nerves, vessels), possible laparotomy, possible lymphedema, blood clot in the legs or lung, and pneumonia. We also reviewed course of typical recovery and plan for follow-up 2 weeks post-op. Questions answered and consents signed. 1. Preop/pelvic mass - CBC, BMP, t+s, CA-125, CEA, CA 19-9, will call with results - No indication for abx unless staging indicated - No indication for heparin preop - Will call to review imaging - Given preop packet * Pilar Mtz LNA - 03/19/2022 9:00 AM EDT Examination chaperoned by MARY SOLO. 03/19/22 In the PUBLICATIONS MANAGER/ONC 3K clinic. documented in this encounter Plan of Treatment Upcoming Encounters Date Type Department Care Team (Late st Contact Info) Description 01/31/2024 9:15 AM EDT Appointment Hematology [place] [address] 01/31/2024 10:20 AM EDT Office Visit Gyne[place] [address] Rebecca Small MD [facility] [place] [address] 08/01/2024 11:30 AM EDT Office Visit Dermatology at [facility] [address] [place] [address] Phan Engle MD [facility] [place] [address] documented as of this encounter Results * (ABNORMAL) Carbohydrate Antigen 19-9 (03/19/2022 10:57 AM EDT) CA 19-9 494.0(H) <=35.0 u/ml [facility] Comment: This result was generated using a Tammy Marcos immunoassay. ??Results obtained from other methods or manufacturers cannot be used interchangeably with this method. Blood 03/19/2022 10:5 7 AM EDT 03/19/2022 11:00 AM EDT Narrative Resulting Agency Comment Spec In Lab Rebecca Small MD CHEMISTRY ORDERABL ES Performing Organization Address [facility] Co de Phone Number [facility] [place] [address] * CEA (03/19/2022 10:57 AM EDT) CEA 1.8 <=3.8 ng/mL [facility] Comment: Reference range: ??(20-69 years): Non-smoker: ??less than or equal to 3.8 ng/mL Smoker: ??less than 5.5 ng/ml This result was generated using a Tammy Marcos immunoassay. ??Results obtained from other methods or manufacturers cannot be used interchangeably with this method. Blood 03/19/2022 10:5 7 AM EDT 03/19/2022 11:00 AM EDT Narrative Resulting Agency Comment Spec In Lab Rebecca Small MD CHEMISTRY ORDERABL ES Performing Organization Address [facility] Co de Phone Number [facility] [place] [address] * (ABNORMAL) Cancer Antigen 125 (03/19/2022 10:57 AM EDT) CA 125 42.4(H) <=38.1 unit/mL [facility] Comment: CA 125 Reference Interval ??Postmenopausal: 6.2 to 31.5 U/mL. ??Premenopausal: 6.9 to 45.9 U/mL. ??Pre and Postmenopausal subjects combined: 6.4 to 38.1 U/mL. This result was generated using a Tammy Marcos immunoassay. ??Results obtained from other methods or manufacturers cannot be used interchangeably with this method. Blood 03/19/2022 10:5 7 AM EDT 03/19/2022 11:00 AM EDT Narrative Resulting Agency Comment Spec In Lab Rebecca Small MD CHEMISTRY ORDERABL ES [facility] [place] [address] * (ABNORMAL) Comprehensive metabolic panel (non-fasting) (03/19/2022 10:57 AM EDT) Glucose Lvl 91 65 - 199 mg/dL [facility] Comment:Diabetes: >=200 mg/d L plus symptoms BUN 11 8 - 18 mg/dL [facility] Creatinine 0.92 0.70 - 1.20 mg/dL [facility] Sodium 144 135 - 145 mmol/L [facility] Potassium 4.6 3.5 - 5.0 mmol/L [facility] Comment: Please note: ??Patients with WBC >100,000 may have falsely elevated Potassium levels. ??For accurate Potassium quantification in these patients send serum separator tube (gold top) for subsequent determinations. ??Contact the Clinical Chemistry Laboratory if there are any questions. Chloride 108(H) 98 - 107 mmol/L [facility] CO2 26 22 - 31 mmol/L [facility] Anion Gap 10 5 - 15 mmol/L [facility] Calcium 9.6 8.5 - 10.5 mg/dL [facility] Total Protein 7.1 6.1 - 8.0 g/dL [facility] Albumin 4.6 3.2 - 5.2 g/dL [facility] AST 19 0 - 30 unit/L [facility] ALT 10 0 - 30 unit/L [facility] Alk Phos 68 35 - 105 unit/L [facility] Total Bilirubin 0.3 0.2 - 1.3 mg/dL [facility] Estimated GFR 73 >=60 mL/min/1. 73 m?? [facility] Comment: This patient's estimated GFR was [...] Lab Rebecca Small MD CHEMISTRY ORDERABL ES [facility] [place] [address] documented in this encounter Visit Diagnoses Diagnosis Pelvic mass in female- Primary Abdominal or pelvic swelling, mass or lump, unspecified site documented in this encounter Care Teams Electrician Supervisor Airplane Relationship Specialty Start Date End Date Grecia Maddox MD [address] [place] [address] PCP - General Family Medicine 05/16/18 07/14/23 documented as of this encounter
--- OUTSIDE RECORDS SUMMARY | 2023-12-15 01:15 | XMS_ITS | Encounter Summary ---
[place] [address] Care Team Providers Care Rechecker Name Role Phone Grecia Maddox MD Primary Care Provider [phone] Reason for Referral * Consultation (Urgent) - Closed Specialty Diagnoses / Procedures Referred By Contyoav t Referred To Contact Gynecology Oncology Diagnoses Intra-abdominal and pelvic swelling, mass and lump, unspecified site Princess Rodríguez DO [address] [place] [address] [place] [address] [facility] [place] [place] Photography Assistant [address] [place] [phone] Referral ID Status Reason Start Date Expiration Date V isits Requested Visits Authorized [id number] Closed Consult, Test & Treat PCP Updated and/or Approved 03/12/2022 03/12/2023 6 6 Encounter Details Date Type Department Care Team (Late st Contact Info) Description 03/12/2022 Transcribe Orders eDH Incoming Referrals [phone] Princess Rodríguez DO [address] [place] [address] [place] [id number] Intra-abdominal and pelvic swelling, mass and lump, unspecified site Social History Tobacco Use Types [...] AM EDT Appointment Hematology [place] [address] 01/31/2024 10:20 AM EDT Office Visit [place] [address] Rebecca Small MD [facility] [place] [address] 08/01/2024 11:30 AM EDT Office Visit Dermatology at [place] [address] [place] [address] Phan Engle MD [facility] [place] [address] Scheduled Referrals Name Type Priority Associated Diagnoses Orde r Schedule Referral to Gynecologic Oncology Outpatient Referral Urgent Intra-abdominal and pelvic swelling, mass and lump, unspecified site Ordered: 03/12/2022 documented as of this encounter Visit Diagnoses Diagnosis Intra-abdominal and pelvic swelling, mass and lump, unspecified site documented in this encounter Care Teams Rechecker Relationship Specialty Start Date End Date Grecia Maddox MD [address] [place] [address] PCP - General Family Medicine 05/16/18 07/14/23 documented as of this encounter
--- OUTSIDE RECORDS SUMMARY | 2023-12-15 01:15 | XMS_ITS | Encounter Summary ---
Author Organization [facility] [place] [address] Care Team Providers Care Camera Repairer Name Role Phone Grecia Maddox MD Primary Care Provider [phone] Encounter Details Date Type Department Care Team (Latest Contact Info) Description 10/30/2022 8:57 AM EDT - 10/30/2022 11:59 PM EDT Hospital Encounter Hematology [place] [address] Endometrial cancer Discharge Disposition: Home Social History Tobacco Use [...] 09/28/2023 cyclobenzaprine (FLEXERIL) 10 mg Tablet 01/19/2018 05/11/2023 documented as of this encounter Plan of Treatment Upcoming Encounters Date Type Department Care Team (Late st Contact Info) Description 01/31/2024 9:15 AM EDT Appointment Hematology [place] [address] 01/31/2024 10:20 AM EDT Office Visit Gynecology [place] [address] Rebecca Small MD [facility] DR [place] [address] 08/01/2024 11:30 AM EDT Office Visit Dermatology at [address] [address] Phan Engle MD [facility] DR [address] [place] [address] documented as of this encounter Procedures Procedure Name Priority Date/Time Associated Diagnosis Comments HC VENIPUNCTURE Routine 10/30/2022 9:24 AM EDT Endometrial cancer documented in this encounter Results * Cancer Antigen 125 (10/30/2022 9:24 AM EDT) CA 125 9.4 <=38.1 unit/mL [facility] Comment: [...] CHEMISTRY ORDERABL ES [facility] [place] [phone] documented in this encounter Visit Diagnoses Diagnosis Endometrial cancer Malignant neoplasm of corpus uteri, except isthmus documented in this encounter Care Teams Camera Repairer Relationship Specialty Start Date End Date Grecia Maddox MD [address] [place] [address] PCP - General Family Medicine 05/16/18 07/14/23 documented as of this encounter
--- OUTSIDE RECORDS SUMMARY | 2023-12-15 01:15 | XMS_ITS | Encounter Summary ---
Author Organization [facility] Address [facility] [place] [address] Care Team Providers Care Heat Treater Helper Name Role Phone Grecia Maddox MD Primary Care Provider [phone] Encounter Details Date Type Department Care Team (Latest Contact Info) Description 03/19/2022 11:00 AM EDT [place] [phone] Pelvic mass in female Social History Tobacco Use Types Packs/Day [...] AM EDT Appointment Hematology [place] [phone] 01/31/2024 10:20 AM EDT Office Visit [place] [phone] Rebecca Small MD [facility] DR GYNECOLOG[place] [address] 08/01/2024 11:30 AM EDT Office Visit Dermatology at [facility] [address] [place] [address] Phan Engle MD [facility] DR JESS HERNANDEZ[place] [address] documented as of this encounter Procedures Procedure Name Priority Date/Time Associated Diagnosis Comments TYPE AND SCREEN VALIDITY Routine 03/19/2022 10:57 AM EDT ABORH RECHECK STATUS Routine 03/19/2022 10:57 AM EDT HEMOGRAM Routine 03/19/2022 10:57 AM EDT Pelvic mass in female DIFFERENTIAL, AUTOMATED Routine 03/19/2022 10:57 AM EDT Pelvic mass in female HC VENIPUNCTURE Routine 03/19/2022 10:57 AM EDT Pelvic mass in female HC CARBOHYDRATE ANTIGEN 19-9 Routine 03/19/2022 10:57 AM EDT Pelvic mass in female ABO/RH TYPING Routine 03/19/2022 10:57 AM EDT Pelvic mass in female HC CBC,PLT & AUTO DIFF Routine 10:57 AM EDT Pelvic mass in female ANTIBODY SCREEN Routine 03/19/2022 10:57 AM EDT Pelvic mass in female HC CANCER ANTIGEN 125 Routine 03/19/2022 10:57 AM EDT Pelvic mass in female HC CARCINO-EMBRYONIC AG ASSAY Routine 03/19/2022 10:57 AM EDT Pelvic mass in female COMPREHENSIVE METABOLIC PANEL (NON-FASTING) Routine 03/19/2022 10:57 AM EDT Pelvic mass in female documented in this encounter Results * Type and Screen Validity (03/19/2022 10:57 AM EDT) T&S only valid at [facility] LABORATORY Comment:This Type and Screen result is only valid at the [facility] Blood 03/19/2022 10:5 7 AM EDT 03/19/2022 10:58 AM EDT Narrative Resulting Agency Comment Spec In Lab Rebecca Small MD BLOOD BANK LAB ORD ERABLES Performing Organization Address City/[facility]/ZIP Co de Phone Number [facility] [place] [address] * ABORH Recheck Status (03/19/2022 10:57 AM EDT) ABORH Type Recheck Completed [facility] Blood 03/19/2022 10:5 7 AM EDT 03/19/2022 10:58 AM EDT Narrative Resulting Agency Comment Spec In Lab Rebecca Small MD BLOOD BANK LAB ORD ERABLES Performing Organization Address City/[facility]/ZIP Co de Phone Number [facility] [place] [address] * Differential, Automated (03/19/2022 10:57 AM EDT) Pathologist [facility] Neutrophils % 64.8 % [facility]ORY Neutr Abs (ANC) 4.90 1.70 - 6.10 x10(3)/[facility] LABORATORY Lymphocytes % 24.2 % [facility] Lymphocytes Abs 1.8 0.9 - 3.2 x10(3)/[facility] LABORATORY Monocytes % 9.0 % [facility] Monocyte Abs 0.7 0.3 - 0.9 x10(3)/[facility] LABORATORY Eosinophils % 1.2 % [facility] Eosinophils Abs 0.1 0.0 - 0.4 x10(3)/[facility] LABORATORY Basophils % 0.5 % [facility] Basophils Abs 0.0 0.0 - 0.1 x10(3)/[facility] LABORATORY Immature Gran % 0.30 % [facility] Comment: Immature granulocytes(IG's)percentage and absolute count will include metamyelocytes, myelocytes, and promyelocytes. Blood smears from CBCs yielding IG's will be scanned manually for concordance. If this scan disagrees with the automated IG or if promyelocytes are noted, a manual differential will be performed. Tammi Gran Abs 0.02 0.00 - 0.04 x10(3)/[facility] LABORATORY Blood 03/19/2022 10:5 7 AM EDT 03/19/2022 11:00 AM EDT Narrative Resulting Agency Comment Spec In Lab Rebecca Small MD HEMATOLOGY ORDERAB LES [facility] [place] [place] [address] * Hemogram (03/19/2022 10:57 AM EDT) WBC 7.6 4.0 - 9.5 x10(3)/[facility] LABORATORY RBC 4.35 4.00 - 5.21 x10(6)/[facility] LABORATORY Hemoglobin 13.6 11.7 - 15.5 g/dL [facility] Hematocrit 40.5 35.7 - 45.8 % [facility] MCV 93.1 82.6 - 94.4 fL [facility] MCH 31.3 27.1 - 32.0 pg [facility] MCHC 33.6 31.7 - 35.0 g/dL [facility] Platelets 247 145 - 357 x10(3)/[facility] LABORATORY RDWSD 43.4 37.0 - 46.0 fL [facility] RDWCV 12.7 11.5 - 14.1 % [facility] MPV 8.2 7.6 - 12.9 fL [facility] nRBC % Auto 0.0 % [facility] nRBC Abs Auto 0.000 0.000 - 0.000 x10(3)/mcL [facility] Blood 03/19/2022 10:5 7 AM EDT 03/19/2022 11:00 AM EDT Narrative Resulting Agency Comment Spec In Lab Rebecca Small MD HEMATOLOGY ORDERAB LES Performing Organization Address City/[facility]/ZIP Co de Phone Number [facility] [place] [address] * Antibody screen (03/19/2022 10:57 AM EDT) Ab Screen Interp Negative [facility] Expires at [id number] on: 04/05/2022 [facility] Comment: Corrected from 05/03/22 0:00:00 EST [Unknown] on 03/20/22 19:38:59 EDT by Kandis Merritt Blood 03/19/2022 10:5 7 AM EDT 03/19/2022 10:58 AM EDT Narrative Resulting Agency Comment Spec In Lab Rebecca Small MD BLOOD BANK LAB ORD ERABLES Performing Organization Address City/[facility]/ZIP Co de Phone Number [facility] [place] [address] * ABO/Rh Typing (03/19/2022 10:57 AM EDT) ABORH Type A Neg [facility] Blood 03/19/2022 10:5 7 AM EDT 03/19/2022 10:58 AM EDT Narrative Resulting Agency Comment Spec In Lab Rebecca Small MD BLOOD BANK LAB ORD ERABLES Performing Organization Address City/[facility]/ZIP Co de Phone Number [facility] [place] [address] * (ABNORMAL) Comprehensive metabolic panel (non-fasting) (03/19/2022 10:57 AM EDT) Glucose Lvl 91 65 - 199 mg/dL [facility] Comment:Diabetes: >=200 mg/d L plus symptoms BUN 11 8 - 18 mg/dL [facility] Creatinine 0.92 0.70 - 1.20 mg/dL [facility] Sodium 144 135 - 145 mmol/L [facility] Potassium 4.6 3.5 - 5.0 mmol/L [facility] Comment: Please note: ??Patients with WBC >100,000 may have falsely elevated Potassium levels. ??For accurate Potassium quantification in these patients send serum separator tube (gold top) for subsequent determinations. ??Contact the Clinical Chemistry Laboratory if there are any questions. Chloride 108(H) 98 - 107 mmol/L [facility] CO2 26 22 - 31 mmol/L [facility] Anion Gap 10 5 - 15 mmol/L [facility] Calcium 9.6 8.5 - 10.5 mg/dL [facility] Total Protein 7.1 6.1 - 8.0 g/dL [facility] Albumin 4.6 3.2 - 5.2 g/dL [facility] AST 19 0 - 30 unit/L [facility] ALT 10 0 - 30 unit/L [facility] Alk Phos 68 35 - 105 unit/L [facility] Total Bilirubin 0.3 0.2 - 1.3 mg/dL [facility] Estimated GFR 73 >=60 mL/min/1. 73 m?? [facility] Comment: This patient's estimated GFR [...] MD CHEMISTRY ORDERABL ES Performing Organization Address [facility] de Phone Number [facility] [place] [address] * (ABNORMAL) Cancer Antigen 125 (03/19/2022 10:57 AM EDT) CA 125 42.4(H) <=38.1 unit/mL [facility] Comment: CA 125 Reference Interval [...] MD CHEMISTRY ORDERABL ES Performing Organization Address [facility] Phone Number [facility] [place] [address] * CEA (03/19/2022 10:57 AM EDT) CEA 1.8 <=3.8 ng/mL [facility] Comment: Reference range: ??(20-69 years): [...] ORDERABL ES Performing Organization Address [facility] Co de Phone Number [facility] [place] [address] * (ABNORMAL) Carbohydrate Antigen 19-9 (03/19/2022 10:57 AM EDT) CA 19-9 494.0(H) <=35.0 u/ml [facility] Comment: This result was generated using a Tammy Marcos immunoassay. ??Results obtained from other methods or manufacturers cannot be used interchangeably with this method. Blood 03/19/2022 10:5 7 AM EDT 03/19/2022 11:00 AM EDT Narrative Resulting Agency Comment Spec In Lab Rebecca Small MD CHEMISTRY ORDERABL ES Performing Organization Address [facility] Co de Phone Number [facility] [place] [address] documented in this encounter Visit Diagnoses Diagnosis Pelvic mass in female Abdominal or pelvic swelling, mass or lump, unspecified site documented in this encounter Care Teams Heat Treater Helper Relationship Specialty Start Date End Date Grecia Maddox MD [address] [place] [address] PCP - General Family Medicine 05/16/18 07/14/23 documented as of this encounter
--- OUTSIDE RECORDS SUMMARY | 2023-12-15 01:15 | XMS_ITS | Encounter Summary ---
Author Organization [facility] Address [facility] [place] [address] Care Team Providers Care Concrete Boom Operator Name Role Phone Keiko Reddy MD Primary Care Provider [phone] Reason for Visit * Reason Comments Follow-up R tib plateau/ right distal rad/ left acetabulum ORIF DOS 12/14/17, Encounter Details Date Type Department Care Team (Late st Contact Info) Description 04/12/2018 11:30 AM EST Office [place] [address] Reinaldo Romero MD [facility] [place] [address] Trauma; Closed fracture of right tibial plateau with routine healing, subsequent encounter; 12/14/2017 ORIF right distal radius fracture (Dr. Romero); Closed displaced fracture of posterior wall of left acetabulum with routine healing, subsequent encounter Social History Tobacco Use Types Packs/Day Years [...] Sign Reading Time Taken Comments Blood Pressure 148/90 04/12/2018 10:46 AM EST Pulse 87 04/12/2018 10:46 AM EST Temperature - - Respiratory Rate - - Oxygen Saturation - - Inhaled Oxygen Concentration - - Weight 70.8 kg (156 lb) 04/12/2018 10:46 AM EST reported Height 165.1 cm (5' 5) 04/12/2018 10:46 AM EST reported Body Mass Index 25.96 04/12/2018 10:46 AM EST documented in this encounter Progress Notes * Reinaldo Romero MD - 04/12/2018 11:30 AM EST Orthopedic follow-up note ? arthroplasty/Orthopaedic History: 1. ORIF for Right distal radius fracture - 12/14/17 - Dr. Romero 2. ORIF for Right proximal tibia fracture - 12/14/17 - Heather 3. ??ORIF for Left??acetabular fracture - 12/20/17 - Albin ?? Ms. Pickard returns in follow-up for the above injuries and procedures. She has been working on physical therapy improving her range of motion. She has made great improvements in ROM, pain has been improving steadily as well. She denies chest pain, SOB, nausea, vomiting, fevers/chills. She has had swelling in the R knee with weightbearing. She has been taking about 20 or 25 steps per day. She doesfeel quite unsteady on her feet still. She gets some lateral pain in the left hip around the trochanteric bursa and buttock. ?? Objective: Awake alert no acute distress Right upper extremity demonstrates a well-healed volar incision over the wrist. She has about 70 degrees of flexion of the wrist and 30 degrees of extension. She is able to ulnar and radially deviateher wrist. 2+ radial pulse. No significant swelling. EPL FPL interossei intact in both upper extremities. Normal sensation in both lower extremities in the SP DP tibial distributions. EHL FHL ankle plantar dorsiflexion intact. 1+ effusion in the right knee. Well-healed surgical incisions throughout all extremities. Range of motion of the right knee is from 0 degrees of extension to 115 degrees of flexion. Stable to varus and valgus stress. Stable to anterior and posterior drawer. Left hip demonstrates about 30 degrees of internal and external rotation. She has some pain in the lateral aspect of the hip with external rotation. ?? Imaging: X-rays of the right wrist 3 views, right knee 2 views, left hip 3 views demonstrate no change in alignment of the hardware at any of these joints and some obscuring of the fracture lines suggesting healing. No complications noted. ? Assessment/plan: 52-year-old about 4 months status post the above surgeries on her right distal radius, right proximal tibia, left acetabulum. She has made great improvements in her. She continues to feel better though she does have some discomfort as well as swelling in the right knee on occasion with weightbearing. I discussed that this is not abnormal. I recommended using a knee sleeve in the right knee to help with edema and swelling control. She will continue to work on her gait and ambulation. I will see her back in 2 months for repeat evaluation. She will likely be cleared at that time for full duty. She does not have light duty at her job, [employer]. She needs to be able to lift 50-75 pounds and be able to stand on concrete for 8 hours a day in order to return to work. She will continue physical therapy to work on range of motion. No x-rays necessary at follow-up visit unless she is having issues with 1 of her areas of surgery. documented in this encounter Plan of Treatment Upcoming Encounters Date Type Department Care Team (Late st Contact Info) Description 01/31/2024 9:15 AM EDT Appointment Hematology [place] [address] 01/31/2024 10:20 AM EDT Office Visit [place] [address] Rebecca Small MD [facility] [place] [address] 08/01/2024 11:30 AM EDT Office Visit Dermatology at [facility] [address] [place] [phone] Phan Engle MD [facility] DR JESS [place] [address] documented as of this encounter Visit Diagnoses Diagnosis Trauma Injury, other and unspecified, unspecified site Closed fracture of right tibial plateau with routine healing, subsequent encounter 12/14/2017 ORIF right distal radius fracture (Dr. Romero) Closed displaced fracture of posterior wall of left acetabulum with routine healing, subsequent encounter documented in this encounter Care Teams Concrete Boom Operator Relationship Specialty Start Date End Date Keiko Reddy MD [address] [place] [id number] PCP - General Family Medicine 06/18/17 05/15/18 documented as of this encounter
--- OUTSIDE RECORDS SUMMARY | 2023-12-15 01:15 | XMS_ITS | Encounter Summary ---
Author Organization [facility] [place] [address] Care Team Providers Care Learning And Development Consultant Name Role Phone Grecia Maddox MD Primary Care Provider [phone] Reason for Visit * Auth/Cert Specialty Diagnoses / Procedures Referred By Contyoav t Referred To Contact Diagnoses Ovarian mass OVARIAN MASS Procedures PRO LAP, RMV ADNEXAL STRUCTURE LAPAROSCOPY, REMOVAL OF ADNEXA (WRVU 11.35) Danita Small MD [facility] [place] [address] [facility] Referral ID Status Reason Start Date Expiration Date Visits Re quested Visits Authorized [id number] 1 1 Encounter Details Date Type Department Care Team (Late st Contact Info) Description 04/02/2022 7:30 AM EST - 04/02/2022 10:28 AM EST [place] [address] Danita Small MD [facility] [place] [address] LAPAROSCOPY, TOTAL HYST, UTERUS<250GMS, REM TUBE &/OR OVARY (WRVU 15) Social History Tobacco Use Types Packs/Day Years [...] Sign Reading Time Taken Comments Blood Pressure 120/80 04/02/2022 6:19 AM EST Pulse 67 04/02/2022 6:19 AM EST Temperature 36.7 ??C (98.1 ??F) 04/02/2022 6:19 AM ES T Respiratory Rate 14 04/02/2022 6:19 AM EST Oxygen Saturation 97% 04/02/2022 6:19 AM EST Inhaled Oxygen Concentration - - Weight 71.6 kg (157 lb 12.8 oz) 04/02/2022 6:19 AM EST Height 166.4 cm (5' 5.5) 04/02/2022 6:19 AM EST Body Mass Index 25.86 04/02/2022 6:19 AM EST documented in this encounter Discharge Instructions * Patient Instructions* Cordelia Novak MD - 04/02/2022 7:31 AM EST PATIENT DISCHARGE INSTRUCTIONS Gynecologic Oncology phone number: [phone] (Nurse ext 4 then 4; appointment ext 1 then 4). After hours and on weekends please call hospital single spindle screw machine operator at [phone] and ask for Gynecologic Oncologist telephone engineer. Call your doctor if you develop: --A [...] Novak MD - 04/02/2022 7:08 AM EST Church Official Inpatient Admission Interval Note I have reviewed the pre-procedure H&P completed by Dr. Small on 03/19/2022. (x) Condition unchanged since H&P originally performed. See interval note below. Interval Note: S: Daphne Pickard feels well today. No complaints / concerns. Denies any changes to her past medical or past surgical history. No new medications or allergies. Anticipating same day surgery. Preferred pharmacy is [facility] in [place]. O: BP 120/80 Pulse 67 Temp 36.7 [...] To be discussed with Dr. Small, Attending Senior Qa Analyst Oncologist Cordelia Novak MD, PGY3 04/02/2022 Associated [...] Operative Note Patient Name: Daphne Pickard : [id number] MR#: [id number] Case Date: 04/02/2022 Surgeon: Surgeon(s) and Role: [...] Small MD - 04/02/2022 8:16 AM EST [facility] Operative Note Patient Name: Daphne Pickard : [id number] MR#: [id number] Case Date: 04/02/2022 Surgeon: Surgeon(s) and Role: [...] Appointment [place] [address] 01/31/2024 10:20 AM EDT Office [place] [address] Danita Small MD [facility] DR [place] [address] 08/01/2024 11:30 AM EDT Office Visit Dermatology at [facility] [address] [place] [id number] Phan Engle MD [facility] DR JESS [place] [address] documented as of this encounter Procedures Procedure [...] TO PATHOLOGY Routine 04/02/2022 9:19 AM EST NON-LICENSED PSYCHIATRIC TECHNICIAN FINAL REPORT Routine 04/02/2022 9:10 AM EST SPECIMEN TO PATHOLOGY Routine 04/02/2022 9:10 AM EST CYTOPATHOLOGY NON-GYNECOLOGICAL Routine 04/02/2022 9:10 AM EST SURGICAL PATHOLOGY REPORT Routine 04/02/2022 8:55 AM EST SPECIMEN TO PATHOLOGY STAT 04/02/2022 8:55 AM EST Laparoscopy W Tot Hysterectuterus <=250 Gram W Tube/Ovary (24315) Yes 04/02/2022 7:32 AM EST OVARIAN MASS POCT GLUCOSE Routine 04/02/2022 6:30 AM EST documented in this encounter Results * Specimen to Pathology (04/02/2022 10:41 AM EST) AP Specimen 04/02/2022 10:4 1 AM EST 04/02/2022 10:41 AM EST Narrative [facility] - 04/02/2022 10:41 AM EST Specimen requisition ordered. ??Separate Pathology report to follow Authorizing Provider Result Carmenza Small MD PATHOLOGY/CYTOLOGY ORDERABLES [facility] [place] [address] * POCT Glucose (04/02/2022 10:40 AM EST) POC Glucose 137 65 - 199 mg/dL [facility] Comment: Supplemental ranges: <140 mg/dL before meals <180 mg/dL all other times of the day Blood 04/02/2022 10:4 0 AM EST 04/02/2022 10:40 AM EST Narrative Authorizing Provider Result Carmenza Small MD POINT OF CARE TEST ORDERABLES Performing Organization Address City/[facility]/ZIP Co de Phone Number [facility] [place] [address] * Specimen to Pathology (04/02/2022 10:25 AM EST) AP Specimen 04/02/2022 10:2 5 AM EST 04/02/2022 10:25 AM EST Narrative [facility] - 04/02/2022 10:25 AM EST Specimen requisition ordered. ??Separate Pathology report to follow Authorizing Provider Result Carmenza Small MD PATHOLOGY/CYTOLOGY ORDERABLES Performing Organization Address City/[facility]/ZIP Co de Phone Number [facility] [place] [address] * Specimen to Pathology (04/02/2022 10:01 AM EST) AP Specimen 04/02/2022 10:0 1 AM EST 04/02/2022 10:01 AM EST Narrative [facility] - 04/02/2022 10:01 AM EST Specimen requisition ordered. ??Separate Pathology report to follow Authorizing Provider Result Carmenza Small MD PATHOLOGY/CYTOLOGY ORDERABLES Performing Organization Address [facility] [place] [address] * Specimen to Pathology (04/02/2022 10:01 AM EST) AP Specimen 04/02/2022 10:0 1 AM EST 04/02/2022 10:01 AM EST Narrative [facility] - 04/02/2022 10:01 AM EST Specimen requisition ordered. ??Separate Pathology report to follow Authorizing Provider Result Carmenza Small MD PATHOLOGY/CYTOLOGY ORDERABLES Performing Organization Address [facility] [place] [address] * Specimen to Pathology (04/02/2022 10:01 AM EST) AP Specimen 04/02/2022 10:0 1 AM EST 04/02/2022 10:01 AM EST Narrative [facility] - 04/02/2022 10:01 AM EST Specimen requisition ordered. ??Separate Pathology report to follow Authorizing Provider Result Carmenza Small MD PATHOLOGY/CYTOLOGY ORDERABLES Performing Organization Address [facility] [place] [address] * Specimen to Pathology (04/02/2022 9:19 AM EST) AP Specimen 04/02/2022 9:19 AM EST 04/02/2022 9:19 AM EST Narrative [facility] - 04/02/2022 9:19 AM EST Specimen requisition ordered. ??Separate Pathology report to follow Authorizing Provider Result Carmenza Small MD PATHOLOGY/CYTOLOGY ORDERABLES [facility] [place] [address] * Non-Senior Qa Analyst Final Report (04/02/2022 9:10 AM EST) Non-Senior Qa Analyst Final Report [id number] ? Location: [facility]; [facility]; The signing pathologist has (i) examined the relevant preparation(s) for the specimen(s) and (ii) rendered or confirmed the diagnosis(es). . ? Non-Senior Qa Analyst Final DIAGNOSIS Negative for Malignancy Electronically signed by: ?Maryjo ELLISON, Parul Leal Verified: ??04/06/2022 11:59 ??Pathologist Performed at: ??-[facility] Dept. of Pathology, [place] [address] Clinical Phlebotomist: Jenelle Valdes MD, AP, ??CLIA Certificate: [id number] DISCUSSION Pelvic wash: Rare mesothelial cells with blood and mixed leukocytes. Cell block was examined. CLINICAL INFORMATION Specimen Source : Pelvic wash Pertinent Clinical Data and Significant Therapy: Ovarian mass Clinical Impression : Ovarian mass Pertinent Radiologic Findings ??: (not provided) Gross Description: Received ??fresh, approximately 30 mL total volume of ?? cloudy, red fluid. Total Preparation: Liquid-Based Prep 1; Cell Block 1. [facility] 04/02/2022 9:10 AM EST Danita Small MD PATHOLOGY/CYTOLOGY ORDERABLES [facility] [place] [place] [address] * Cytopathology Non-Gynecological (04/02/2022 9:10 AM EST) AP Specimen 04/02/2022 9:10 AM EST 04/02/2022 9:10 AM EST Narrative [facility] - 04/02/2022 9:10 AM EST Specimen requisition ordered. ??Separate Pathology report to follow Danita Small MD PATHOLOGY/CYTOLOGY ORDERABLES Performing Organization Address [facility] Co de Phone Number [facility] [place] [address] * Specimen to Pathology (04/02/2022 9:10 AM EST) AP Specimen 04/02/2022 9:10 AM EST 04/02/2022 9:10 AM EST Narrative [facility] - 04/02/2022 9:10 AM EST Specimen requisition ordered. ??Separate Pathology report to follow Danita Small MD PATHOLOGY/CYTOLOGY ORDERABLES Performing Organization Address [facility]/[place] de Phone Number [facility] [place] [address] * Surgical Pathology Report (04/02/2022 8:55 AM EST) FINAL DIAGNOSIS (AP) [id number] ? Location: [facility]; [facility]; The signing pathologist has (i) examined the [...] Leiomyomata. - Benign cervix. Electronically signed by: ?Aniceto Dutton MD Verified: ??04/21/2022 12:41 ??Pathologist Performed at: ??-[facility] Dept. of Pathology, [place] [address] Clinical Phlebotomist: Jenelle Valdes MD, AP, ??CLIA Certificate: [id number] SYNOPTIC Specimen ? Procedure: ??Total hysterectomy and [...] ? Tumor Block(s): ??A3, B3 ? CAP [facility] 2021 Q1 Release Comment: Per tumor board [...] in available in the Laboratory for Clinical [employer] ([employer]) if the clinical [...] ?Result (Positive/Negative) B3 ?ER ? positive B3 ?GA ? positive B3 ?P53 ?wild type expression [...] x 3 cm aggregate. ?? Outer Surface: Naplate-white, disrupted. ?? Cut Surface: Aggregate of rubbery pink-white solid tissues, smooth cyst wall , and ??admixed softer, solid pale-soler tissues aggregating 3.5 x 2.6 x 1.0 cm. Right Fallopian Tube: 6.8 x 0.5 cm, fimbriated. Sections/Processing: The following tissue is submitted for frozen section: FS 1-inbound call center representative right ovary. Identity Management Developer sections in 12 cassettes as follows: ?A1: [...] parenchyma identified. No identified fallopian tube. Sections/Processing: Identity Management Developer sections in 7 cassettes labeled B1-B7. C - Labeled/Fixative: Left tube and ovary, fresh. Tissue Description: Intact, salpingo-oophorectom y. LEFT OVARY ?? Size: 2.0 x 2.0 x 1.3 cm. ?? Outer Surface: Naplate-red, Abundant adhesions. ?? Cut Surface: Central smooth-walled cyst measuring 1.2 x 1.0 x 0.8 cm. Left Fallopian Tube: 6.2 x 0.5 cm, fimbriated. Sections/Processing: Identity Management Developer sections in 6 cassettes as follows: ?C1-C3: ??Left ovary, inbound call center representative ?C4-C6: ??Left fallopian tube, entirely submitted D - Labeled/Fixative: Omental biopsy, fresh. Quantity/Size: Single, 6.0 x 4.7 x 1.0 cm. Tissue Description: Portion of fibroadipose tissue in keeping with omentum. No discrete lesions identified. Sections/Processing: Identity Management Developer sections in 3 cassettes labeled D1-D3. E [...] 2.5 cm Os: 0.6 cm, circular Sections/Processing: Identity Management Developer sections in 5 cassettes as follows: ?H1: [...] Verified: ??04/02/2022 9:34 ?? Pathologist Performed at: ??-[facility] Dept. of Pathology, [facility] This intraoperative consultation should be interpreted as a preliminary diagnosis pending review of the entire specimen and special studies, if any. A final Surgical Pathology report will follow this preliminary Frozen Section report(s). 04/21/2022 12:41 PM EST [facility] 04/02/2022 8:55 AM EST Danita Small MD PATHOLOGY/CYTOLOGY ORDERABLES [facility] [place] [address] * Specimen to Pathology (04/02/2022 8:55 AM EST) AP Specimen 04/02/2022 8:55 AM EST 04/02/2022 8:55 AM EST Narrative [facility] - 04/02/2022 8:55 AM EST Specimen requisition ordered. ??Separate Pathology report to follow Danita Small MD PATHOLOGY/CYTOLOGY ORDERABLES Performing Organization Address City/[facility] Care [facility]/ZIP Co de Phone Number [facility] [place] [address] * (ABNORMAL) POCT Glucose (04/02/2022 6:30 AM EST) POC Glucose 64(L) 65 - 199 mg/dL [facility] Comment: Supplemental ranges: <140 mg/dL before meals <180 mg/dL all other times of the day Blood 04/02/2022 6:30 AM EST 04/02/2022 6:30 AM EST Danita Small MD POINT OF CARE TEST ORDERABLES Performing Organization Address [facility] [place] [address] documented in this encounter Visit Diagnoses Not [...] Given 04/02/2022 12:20 PM EST 650 mg BUpivacaine (pf) (Marcaine) (2.5 mg/mL) 0.25% injection ONCE PRN, Starting on Juliette 04/02/22 at 1059, Until Juliette 04/02/22 at 1803, Intra-Operative (Intra-Procedure), Routine Given 04/02/2022 10:59 AM EST 10 mLs 19- Surgical Site HYDROmorphone (Dilaudid) (0.2 mg/1 mL) injection syringe [...] ider: Oseas Lovell)1021 (New Bag - Provider: Osesa Lovell)1124 (Anesthesia Volume Adjustment - Provider: Oseas [...] Routine documented in this encounter Care Teams Learning And Development Consultant Relationship Specialty Start Date End Date Grecia Maddox MD [address] [place] [address] PCP - General Family Medicine 05/16/18 07/14/23 documented as of this encounter
--- OUTSIDE RECORDS SUMMARY | 2023-12-15 01:15 | XMS_ITS | Encounter Summary ---
Author Organization [facility] Address [facility] [place] [address] Care Team Providers Care Tool Lathe Operator Name Role Phone Grecia Maddox MD Primary Care Provider [phone] Reason for Visit * Reason Comments Follow-up Encounter Details Date Type Department Care Team (Late st Contact Info) Description 07/24/2022 1:00 PM EST Office Visit [place] [address] Rebecca Martinez MD [facility] [place] [address] Endometrial cancer Social History Tobacco Use Types [...] Reading Time Taken Comments Blood Pressure 124/82 07/24/2022 12:32 PM EST Pulse 71 07/24/2022 12:32 PM EST Temperature 37.2 ??C (99 ??F) 07/24/2022 12:32 PM EST Respiratory Rate 12 07/24/2022 12:32 PM EST Oxygen Saturation 98% 07/24/2022 12:32 PM EST Inhaled Oxygen Concentration - - Weight 71.8 kg (158 lb 3.2 oz) 07/24/2022 12:32 PM EST Height 166.4 cm (5' 5.51) 07/24/2022 12:[address] Body Mass Index 25.92 07/24/2022 12:32 PM EST documented in this encounter Progress Notes * Luz Elena Negro CCMA - 07/24/2022 1:00 PM EST Examination chaperoned by JANINE Mcdonald. * Rebecca Martinez MD - 07/24/2022 1:00 PM EST Division [place] [address] Surveillance Visit: Patient Active Problem List Diagnosis Code ??? [...] pulmonary embolus I26.99 ??? Pulmonary embolism I26.99 Subjective: Daphne Pickard returns to the office today for her postoperative visit. 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 Her postoperative course was uncomplicated. She has been doing well since surgery and generally feels well. She has occasional difficulty moving her bowels. Normal appetite and energy. She does have some dyspareunia. Objective: Vitals: 07/24/22 1232 BP: 124/82 Pulse: 71 Resp: 12 Temp: 37.2 ??C (99 ??F) SpO2: 98% Weight: 71.8 kg (158 lb 3.2 oz) Height: 166.4 cm (5' 5.51) Body mass index is 25.92 kg/m??. Body surface area is 1.82 meters squared. Physical Exam Constitutional: Appearance: Normal [...] Assessment and Plan: Daphne Pickard is a 56 y.o. 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 Tumor markers wnl. JOSIANE on exam. RTC 3 mos with repeat labs. Will refer to pelvic floor PT for dyspareunia. REBECCA MARTINEZ MD documented in this encounter Plan of Treatment Upcoming Encounters Date Type Department Care Team (Late st Contact Info) Description 01/31/2024 9:15 AM EDT Appointment Hematology [place] [address] 01/31/2024 10:20 AM EDT Office Visit [place] [address] Rebecca Martinez MD [facility] [place] [address] 08/01/2024 11:30 AM EDT Office Visit Dermatology at [facility] [address] [place] [address] Phan Engle MD [facility] DR [facility] [address] documented as of this encounter Visit Diagnoses Diagnosis Endometrial cancer Malignant neoplasm of corpus uteri, except isthmus documented in this encounter Care Teams Tool Lathe Operator Relationship Specialty Start Date End Date Grecia Maddox MD [address] [place] [address] PCP - General Family Medicine 05/16/18 07/14/23 documented as of this encounter
--- OUTSIDE RECORDS SUMMARY | 2023-12-15 01:15 | XMS_ITS | Encounter Summary ---
Author Organization [facility] Address [facility] [place] [address] Care Team Providers Care Chemist Steroids Name Role Phone Grecia Maddox MD Primary Care Provider [phone] Encounter Details Date Type Department Care Team (Late st Contact Info) Description 04/24/2022 1:40 PM EST Office Visit Gyne[place] [address] Rebecca Small MD [facility] DR [place] [address] Malignant neoplasm of ovary, unspecified laterality Social [...] Sign Reading Time Taken Comments Blood Pressure 126/84 04/24/2022 2:07 PM EST Pulse 67 04/24/2022 2:07 PM EST Temperature 36.5 ??C (97.7 ??F) 04/24/2022 2:07 PM ES T Respiratory Rate 15 04/24/2022 2:07 PM EST Oxygen Saturation 99% 04/24/2022 2:07 PM EST Inhaled Oxygen Concentration - - Weight 69.4 kg (153 lb) 04/24/2022 2:07 PM EST Height 166.4 cm (5' 5.51) 04/24/2022 2:07 PM ES T Body Mass Index 25.06 04/24/2022 2:07 PM EST documented in this encounter Progress Notes * Farida Ivy, DO - 04/24/2022 1:40 PM EST Division of [place] [address] Gynecologic Oncology Clinic New Patient Visit Reason for visit: pelvic mass, referred by No referring provider defined for this encounter. Problem List Patient Active Problem List Diagnosis [...] a 56 y.o. 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 She has a history of depression, endometriosis, pulmonary embolism (provokedand treated with Eliquis). She initially noted left [...] osseous metastasis within the abdomen or pelvis. Interval History: Shilpa is doing ok. She feels tired overall. She feels that she is back to her baseline, although she feels that she overall has more energy. She denies pain. She has not done any strenuous activity. Her diet is good. She eats well. She has not lost any weight. Denies fever, chills, sob, cp, abd pain, n/v/d/c, black or bloody stools. No vaginal bleeding. Gynecologic history: Menarche was approximately age 13 [...] and does not work. 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 8/3/18 Kathy Tanner PA Allergies Allergies Allergen Reactions ??? Gabapentin Nausea And Vomiting Vital signs: LMP (LMP Unknown) Physical examination General: She is alert and [...] above, in the history of present illness. Surgical path 04/02/2022: Surgical Pathology DIAGNOSIS CORRECTED REPORT (See Discussion) A - Portion of right ovary and right fallopian tube, excision: - Ovarian ??endometrioid ??carcinoma with focal squamous differentiation, FIGO1, see ??synoptic report. - ??Endometriotic cyst. - Benign right [...] Aniceto Verified: ??04/21/2022 12:41 ??Pathologist Performed at: ??-[facility] Dept. of Pathology, [place] [id number] Emt Dispatcher: Jenelle Valdes MD, AP, ??CLIA Certificate: [id number] SYNOPTIC Specimen ?Procedure: ??Total hysterectomy and bilateral salpingo-oophorectomy ?Right Ovary Integrity: ??Fragmented Tumor ?Tumor Site: ??Right ovary ?Tumor Size: ??11.5 Centimeters (cm) ?Histologic Type: ??Endometrioid carcinoma ?Histologic Grade: ??G1, well differentiated ?Ovarian Surface Involvement: ??Cannot be determined - fragmented specimen ?Fallopian Tube Surface Involvement: ??Not identified ?Other Tissue / Organ Involvement: ??Not identified ?Peritoneal / Ascitic Fluid Involvement: ??Malignant cells not identified ?Chemotherapy Response Score (CRS): ??No known presurgical therapy SYNOPTIC Regional Lymph Nodes ?Regional Lymph Node Status: ??Not applicable (no regional lymph nodes ? submitted or found) Pathologic Stage Classification (pTNM, AJCC 8th Edition) ?pT Category: ??pT not assigned (cannot be determined based on available ? pathological information) ?pN Category: ??pN not assigned (no nodes submitted or found) Best Tumor Blocks for Future Studies ?Tumor Block(s): ??A3, B3 Impression/plan: Daphne Pickrad is a 56 y.o. woman with pelvic mass on CT and US. She underwent a Lap BSO > TLH with peritoneal, omental biopsies. Pathology showed grade 1 stage 1c1 endometrioid carcinoma. For Shilpa, the choice before us is to proceed with lymphadenectomy to complete the staging. However, the data available is dominated by more aggressive kinds of tumor histologies and it is questionable whether a less aggressive endometrioid cancer is worth the risk associated with a lymphadenectomy. We discussed this question with Shilpa and she opted for the surgical intervention knowing the possible side effects. She had an opportunity to ask questions and they were answered to her satisfaction. We will proceed with surgical planning. Chemotherapy is not recommended. We will repeat Ca 19-9 prior to her surgery. I informed Daphne Pickard that she can call back with any questions. Patient was seen and discussed with Farida Rodriguez DO Fellow, Hematology and Medical Oncology [facility] Pager: [phone], 04/24/22, 1:30 PM documented in this encounter Plan of Treatment Upcoming Encounters Date Type Department Care Team (Late st Contact Info) Description 01/31/2024 9:15 AM EDT Appointment Hematology [place] [address] 01/31/2024 10:20 AM EDT Office Visit [place] [address] Rebecca Small MD [facility] DR [place] [address] 08/01/2024 11:30 AM EDT Office Visit Dermatology at [address] [address] Phan Engle MD [facility] DR JESS [place] [address] documented as of this encounter Visit Diagnoses Diagnosis Malignant neoplasm of ovary, unspecified laterality documented in this encounter Care Teams Chemist Steroids Relationship Specialty Start Date End Date Grecia Maddox MD [address] [place] [address] PCP - General Family Medicine 05/16/18 07/14/23 documented as of this encounter
--- OUTSIDE RECORDS SUMMARY | 2023-12-15 01:15 | XMS_ITS | Encounter Summary ---
Author Organization [facility] Address [facility] [place] [address] Care Team Providers Care Manager Intern Name Role Phone Grecia Maddox MD Primary Care Provider [phone] Encounter Details Date Type Department Care Team (Late st Contact Info) Description 07/22/2022 Telephone Obstetrics [place] [phone] Blanca Masters Social History Tobacco Use Types Packs/Day Years [...] AM EDT Appointment Hematology [place] [phone] 01/31/2024 10:20 AM EDT Office Visit [place] [phone] Rebecca Small MD [facility] [place] [address] 08/01/2024 11:30 AM EDT Office Visit Dermatology at [facility] [address] [place] [address] Phan Engle MD [facility] DR JESS [place] [address] documented as of this encounter Visit Diagnoses Not on filedocumented in this encounter Care Teams Manager Intern Relationship Specialty Start Date End Date Grecia Maddox MD [address] [place] [address] PCP - General Family Medicine 05/16/18 07/14/23 documented as of this encounter
--- OUTSIDE RECORDS SUMMARY | 2023-12-15 01:15 | XMS_ITS | Encounter Summary ---
Author [facility] [place] [address] Care Team Providers Care Lidding Machine Operator Name Role Phone Grecia Maddox MD Primary Care Provider Encounter Details Date Type Department Care Team (Late st Contact Info) Description 03/19/2022 10:30 AM EDT Clinical [place] [address] Social History Tobacco Use Types Packs/Day Years [...] as of this encounter Progress Notes * Daphne Ovalle RN - 03/19/2022 10:30 AM EDT Abbreviated Anesthesia questionnaire reviewed with patient and pam Louise while in [facility]. Pt has tolerated anesthesia in the past. Pre- operative instruction booklet reviewed. Patient verbalizes a good understanding of all information reviewed. PLAN: Testing: Type and screen, other labs Special medication instructions: Aspirin per MD Procedure date: 05-01-22 Dr Small Pre Surgery Covid screening: Were you diagnosed with COVID 19 or had symptoms consistent with COVID19 within the last 3 months. No documented in this encounter Plan of Treatment Upcoming Encounters Date Type Department Care Team (Late st Contact Info) Description 01/31/2024 9:15 AM EDT Appointment Hematology [place] [address] 01/31/2024 10:20 AM EDT Office Visit Gynecology [place] [address] Rebecca Small MD [facility] [place] [address] 08/01/2024 11:30 AM EDT Office Visit Dermatology at [facility] [address] [place] [phone] Phan Engle MD [facility] DR JESS [place] [address] documented as of this encounter Visit Diagnoses Not on filedocumented in this encounter Care Teams Lidding Machine Operator Relationship Specialty Start Date End Date Grecia Maddox MD [address] [place] [address] PCP - General Family Medicine 05/16/18 07/14/23 documented as of this encounter
--- OUTSIDE RECORDS SUMMARY | 2023-12-15 01:15 | XMS_ITS | Encounter Summary ---
Author Organization [facility] [place] [address] Care Team Providers Care Geodetic Technician Name Role Phone Keiko Reddy MD Primary Care Provider Encounter Details Date Type Department Care Team (Late st Contact Info) Description 04/12/2018 Orders [place] [phone] Silke Bojorquez RN Social History Tobacco Use Types Packs/Day [...] AM EDT Appointment Hematology [place] [phone] 01/31/2024 10:20 AM EDT Office Visit [place] [phone] [facility] [place] [address] 08/01/2024 11:30 AM EDT Office Visit Dermatology at [address] [place] [address] [facility] DR J[place] [address] documented as of this encounter Visit Diagnoses Not on filedocumented in this encounter Care Teams Geodetic Technician Relationship Specialty Start Date End Date Keiko Reddy MD [address] [address] PCP - General Family Medicine 06/18/17 05/15/18 documented as of this encounter
--- OUTSIDE RECORDS SUMMARY | 2023-12-15 01:15 | XMS_ITS | Encounter Summary ---
Author Organization [facility] Address [facility] [place] [address] Care Team Providers Care Broomcorn Press Feeder Name Role Phone Keiko Reddy MD Primary Care Provider [phone] Encounter Details Date Type Department Care Team (Late st Contact Info) Description 02/17/2018 Orders Only Orthopaedics at [place] [phone] Reinaldo Romero MD [facility] DR [place] [address] Wrist fracture, closed, right, with routine healing, subsequent encounter Social History [...] AM EDT Appointment Hematology and Oncology at [place] [phone] 01/31/2024 10:20 AM EDT Office Visit Gynecology Oncology at [place] [phone] Rebecca Small MD [facility] [place] [address] 08/01/2024 11:30 AM EDT Office Visit Dermatology at [facility] [address] [place] [address] Phan Engle MD [facility] [place] [address] documented as of this encounter Results * XR Wrist Complete Min 3 views Right (Generic) (04/12/2018 10:31 AM EST) Anatomical Region Laterality Modality Right Digital Radiogra phy Impressions 04/12/2018 10:56 AM EST Interval healing of distal radial fracture. Narrative 04/12/2018 10:56 AM EST EXAMINATION: XR WRIST COMPLETE MIN 3 VIEWS RIGHT (GENERIC) CLINICAL HISTORY: RIGHT DISTAL RADIUS FX TECHNIQUE: 4 views of the right wrist, 04/12/2018 COMPARISON: Right wrist x-rays 02/16/2018 FINDINGS: Plate-screw fixation of distal radial fracture is again seen. There has been interval new bone formation along the fracture lines which are no longer seen. No new fracture or other new osseous abnormality. There is generalized osseous demineralization. Procedure Note Sophia Erickson MD - 04/12/2018 EXAMINATION: XR WRIST COMPLETE MIN 3 VIEWS RIGHT (GENERIC) CLINICAL HISTORY: RIGHT DISTAL RADIUS FX TECHNIQUE: 4 views of the right wrist, 04/12/2018 COMPARISON: Right wrist x-rays 02/16/2018 FINDINGS: Plate-screw fixation of distal radial fracture is again seen. There hasbeen interval new bone formation along the fracture lines which are no longerseen. No new fracture or other new osseous abnormality. There is generalizedosseous demineralization. IMPRESSION Interval healing of distal radial fracture. Reinaldo Romero MD IMG DX ORDERABLES documented in this encounter Visit Diagnoses Diagnosis Wrist fracture, closed, right, with routine healing, subsequent encounter Wrist fracture, closed, right, with routine healing, subsequent encounter documented in this encounter Care Teams Broomcorn Press Feeder Relationship Specialty Start Date End Date Keiko Reddy MD [address] [address] PCP - General Family Medicine 06/18/17 05/15/18 documented as of this encounter
--- OUTSIDE RECORDS SUMMARY | 2023-12-15 01:15 | XMS_ITS | Encounter Summary ---
Author Organization [facility] [place] [address] Care Team Providers Care Warp Placer Name Role Phone Keiko Reddy MD Primary Care Provider [phone] Encounter Details Date Type Department Care Team (Late st Contact Info) Description 02/17/2018 Orders Only [place] [phone] Reinaldo Romero MD [facility] [place] [address] Closed nondisplaced fracture of left acetabulum with routine healing, unspecified portion of acetabulum, subsequent encounter Social History Tobacco Use Types [...] AM EDT Appointment Hematology [place] [phone] 01/31/2024 10:20 AM EDT Office Visit Gynecology [place] [phone] Rebecca Small MD [facility] [place] [address] 08/01/2024 11:30 AM EDT Office Visit Dermatology at [facility] [address] [place] [address] Phan Engle MD [facility] [place] [address] documented as of this encounter Visit Diagnoses Diagnosis Closed nondisplaced fracture of left acetabulum with routine healing, unspecified portion of acetabulum, subsequent encounter documented in this encounter Care Teams Warp Placer Relationship Specialty Start Date End Date Keiko Reddy MD [address] [address] PCP - General Family Medicine 06/18/17 05/15/18 documented as of this encounter
--- OUTSIDE RECORDS SUMMARY | 2023-12-15 01:15 | XMS_ITS | Encounter Summary ---
Author Organization Replaced By [facility] Address [facility] [place] [address] Care Team Providers Care Investigation Lieutenant Name Role Phone Grecia Maddox MD Primary Care Provider Encounter Details Date Type Department Care Team (Latest Contact Info) Description 07/23/2022 Travel Social History Tobacco Use Types Packs/Day [...] AM EDT Appointment Hematology [place] [address] 01/31/2024 10:20 AM EDT Office Visit [place] [address] Rebecca Small MD [facility] [place] [address] 08/01/2024 11:30 AM EDT Office Visit Dermatology at [facility] [address] [place] [address] Phan Engle MD [facility] [place] [address] documented as of this encounter Visit Diagnoses Not on filedocumented in this encounter Care Teams Investigation Lieutenant Relationship Specialty Start Date End Date Grecia Maddox MD [address] [place] [address] PCP - General Family Medicine 05/16/18 07/14/23 documented as of this encounter
--- OUTSIDE RECORDS SUMMARY | 2023-12-15 01:15 | XMS_ITS | Encounter Summary ---
Author Organization [facility] Address [facility] [place] [address] Care Team Providers Care Staffing Branch Manager Name Role Phone Grecia Maddox MD Primary Care Provider [phone] Reason for Visit * Reason Onset Date Comments Letter for School/Work 05/30/2018 Encounter Details Date Type Department Care Team (Late st Contact Info) Description 05/30/2018 Telephone [place] [address] Reinaldo Romero MD [facility] [place] [address] Letter for School/Work Social History Tobacco Use Types Packs/Day Years [...] encounter Miscellaneous Notes * Telephone Encounter - Grecia Ontiveros - 05/30/2018 2:41 PM EST Per message below, letter created and mailed to patient. Message Please assist with letter request to extend until follow up with Heather and at that time if any additional limitations persist, he will be able to advise on proper letter. Thanks, Jne ----- Message ----- From: Daphne Pickard Sent: 05/27/2018 ??10:24 AM To: [facility] Nurse Subject: Non-Urgent Medical Question ? ----- Message from Carlie Boyd D - sent at 05/27/2018 10:24 AM EST ----- Dear Dr. Romero, I am scheduled to see you again on Jun 07. ??We have previously discussed my potential to return to light duty work. ??I cannot stress enough the difficulty I have standing or sitting for prolongedperiods of time. ??I am also having issues with both knees. ??Constant pain in both knees and weakness. ??My fine motor skills in my right hand are still way off. ??I am unable to push or pull using that injured wrist. Hector unable to do simple tasks at home and definitely won't be able to perform myold job that I was doing prior to my accident. 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 I am not sure if an MRI was ever done to see if I suffered any head trauma ??but I have floaters in my right eye which cause problems for me reading. My con concerns are real. ??I am not currently able to bend or stoop and cannot kneel on my knees. ??I still havepain in the injury locations. ??Sleeping is a challenge as I cannot stop sleep on my side without pain in the hip. ?? I am asking for more time to heal. ??I am not ready to return to my job yet and will communicate this to my employer. ??I wish for you to back me on this decision as it is best for my healing process. ??A note will need to be written again advising my employer that I am not ready to return to work even on light duty as I am not able to perform as required to return to my job even in a light duty capacity. ??Please let me know your thoughts on this before we meet again later this month. Kindest Regards, Diann?? Melly documented in this encounter Plan of Treatment Upcoming Encounters Date Type Department Care Team (Late st Contact Info) Description 01/31/2024 9:15 AM EDT Appointment Hematology [place] [address] 01/31/2024 10:20 AM EDT Office Visit [place] [address] Rebecca Small MD [facility] [place] [address] 08/01/2024 11:30 AM EDT Office Visit Dermatology at [facility] [address] [place] [phone] Phan Engle MD [facility] DR JESS [place] [address] documented as of this encounter Visit Diagnoses Not on filedocumented in this encounter Care Teams Staffing Branch Manager Relationship Specialty Start Date End Date Grecia Maddox MD [address] [place] [address] PCP - General Family Medicine 05/16/18 07/14/23 documented as of this encounter
--- OUTSIDE RECORDS SUMMARY | 2023-12-15 01:15 | XMS_ITS | Encounter Summary ---
Author Organization [facility] [place] [address] Care Team Providers Care Sports Media Name Role Phone Grecia Maddox MD Primary Care Provider [phone] Reason for Referral * Physical Therapy (Routine) - Closed Specialty Diagnoses / Procedures Referred By Marie diaz Referred To Contact Physical Therapy Diagnoses Dyspareunia, female Rebecca Small MD [facility] DR [place] [address] Referral ID Status Reason Start Date Expiration Date V isits Requested Visits Authorized [id number] Closed Evaluate and Treat 07/29/2022 01/25/2023 12 12 Encounter Details Date Type Department Care Team (Late Contact Info) Description 07/28/2022 Orders Only [place] [address] Adina Du, RN Dyspareunia, female Social History Tobacco Use Types [...] AM EDT Appointment Hematology [place] [address] 01/31/2024 10:20 AM EDT Office Visit [place] [address] [facility] [place] [address] 08/01/2024 11:30 AM EDT Office Visit Dermatology at [place] [address] [place] [address] [facility] DR JESS [place] [address] Scheduled Referrals Name Type Priority Associated Diagnoses Orde r Schedule Referral to Physical Therapy Outpatient Referral Routine Dyspareunia, female Ordered: 07/29/2022 documented as of this encounter Visit Diagnoses Diagnosis Dyspareunia, female Dyspareunia documented in this encounter Care Teams Sports Media Relationship Specialty Start Date End Date Grecia Maddox MD [address] [place] [address] PCP - General Family Medicine 05/16/18 07/14/23 documented as of this encounter
--- OUTSIDE RECORDS SUMMARY | 2023-12-15 01:15 | XMS_ITS | Encounter Summary ---
Author Organization [facility] [place] [address] Care Team Providers Care Field Counsel Name Role Phone Grecia Maddox MD Primary Care Provider [phone] Reason for Visit * Auth/Cert Specialty Diagnoses / Procedures Referred By Contac t Referred To Contact Diagnoses Ovarian mass OVARIAN MASS Procedures PRO LAP, RMV ADNEXAL STRUCTURE LAPAROSCOPY, REMOVAL OF ADNEXA (WRVU 11.35) Rebecca Small MD [facility] [place] [address] [facility] Referral ID Status Reason Start Date Expiration Date Visits Re quested Visits Authorized [id number] 1 1 Encounter Details Date Type Department Care Team (Late st Contact Info) Description 04/02/2022 7:28 AM EST Anesthesia Event [place] [address] Bonita Mckeon MD [facility] [place] [address] Anesthesia Record Procedure Summary Procedure Name Responsible Anesthesiologist Anesthesia Start Time Anesthesia Stop Time LAPAROSCOPY, TOTAL HYST, UTERUS<250GMS, REM TUBE &/OR OVARY (WRVU 15) (Bilateral) Bonita Mckeon MD 04/02/22 0728 04/02/22 1124 Events Date Time Event Comment 04/02/2022 0712 0728 AN Verify 0728 Start 0732 An Start Data 0739 An Induction 0742 An Intubation 0748 Anesthesia Ready 0815 Procedure Start 0829 Quick Note Steep tburg pos itioning 0908 Quick Note Repositioned ba ck into tburg 0934 Quick Note Patiet repositi oned back to level supine 0957 Quick Note Repositioned in to tburg 1107 Procedure Stop 1114 Extubation/LMA Out Extubatio n criteria met, extubated to FM O2 1115 an stop data 1121 Recovery or ICU Handoff Awa ent care was transferred to the destination unit staff after review of the patient's medical history, current anesthetic/surgical status and plan, according to the Provider Handoff Checklist. 1124 Stop Meds Name Total Midazolam 2 mg fentaNYL 150 mcg Propofol 250 mg PHENYLephrine 40 mcg Ondansetron 4 mg Dexamethasone 8 mg Rocuronium 130 mg Propofol INF 973.04 mg Dexmedetomidine 20 mcg metroNIDAZOLE 500 mg ceFAZolin 2 g Sugammadex 200 mg lactated ringers infusion 1,200 mL * Agents Name O2 Air N2O Sevoflurane (et) O2 Auxiliary Flowmeter 2 * Blood No blood administrations on file. Lines, Drains, and Airways Type Details Placement Removal Urethral Catheter 04/02/22; 0803; Surg deepa longer than 2 hours (ENVIRONMENTAL COMPLIANCE MANAGER surgery.); indwelling double lumen catheter; latex; 14; inserted at this facility (by Dr. Small); 1; 5; 10; none; drainage bag to dependent drainage 04/02/22 0803 by Emely Bermeo, RN Incision 04/02/22; 0816; abdo men; laparoscopic punctures (specify); X3 04/02/22 0816 by Emely Bermeo, RN (RETIRED) Peripheral IV Line - Single Lumen 04/02/22; 0716; cephalic vein (lateral side of arm), left; [id number] catheter system; Anatomical Landmarks; 20 gauge; distraction, tolerated well; 04/02/22; 1525 04/02/22 0716 by Ashley Haines RN 04/02/22 1525 by Mariaa Miranda RN ETT Mask Ventilation: Ea sy (1); ETT Type: Cuffed; ETT Size: 7 mm; Mac Blade: 4; Attempts: 2; Laryngoscopy Grade: 2; ETT Placement Verified By: Auscultation, Capnometry, Visual; Secured at Teeth: 23 cm; Inserted by: Oseas Lovell SRNA; Removal Date: 04/02/22; Removal Time: 111304/02/22 0742 by Oseas Lovell 04/02/22 1114 by Oseas Lovell NG/OG Tube 04/02/22; 0745; orogastric; 16 Fr; right mouth; gastric decompression; 04/02/22; 1114 04/02/22 0745 by Oseas Lovell 04/02/22 1114 by Oseas Lovell documented in this encounter Social History Tobacco Use Types Packs/Day [...] on file documented as of this encounter OR Notes * Anesthesia Postprocedure Evaluation - Bonita Mckeon MD - 04/02/2022 3:38 PM EST Department of Anesthesiology Post-procedure Note Patient: Daphne Pickard Procedure Summary Date: 04/02/22 Room / Location: [facility] OR [address] [place] [address] MAIN OR Anesthesia Start: 727 Anesthesia Stop: 1123 Procedure: LAPAROSCOPY, TOTAL HYST, UTERUS<250GMS, REM TUBE &/OR OVARY (WRVU 15) (Bilateral ) Diagnosis: (OVARIAN MASS) Surgeons: Rebecca Small MD Responsible Provider: Bonita Mckeon MD Anesthesia Type: general ASA Status: 2 All Anesthesia Providers: Anesthesiologist: Bonita cMkeon MD [employer]SHMALLOW MACHINE WORKER: Rosa Steiner CRNA Student Nurse Sexual Assault Nurse: Oseas Lovell Vitals Value Taken Time BP 101/67 04/02/22 1445 Temp 36.3 ??C (97.3 ??F) 04/02/22 1300 Pulse 89 04/02/22 1455 Resp 21 04/02/22 1455 SpO2 96 % 04/02/22 1455 Pain Level 8 04/02/22 1306 Vitals shown include unvalidated device data. Patient Location: PACU/SDP Level of Consciousness: Awake and Alert Pain Management: Satisfactory Analgesia PONV: None Cardiovascular Status: At Baseline and Hemodynamically Stable Respiratory Status: At Baseline and Room Air Postoperative Fluid Status: Intravascular EUvolemia Possible Anesthetic Complications: NONE apparent at time of evaluation Final Primary Anesthesia Type: General (The anesthetic type performed was the same as planned.) Comments: Bonita Mckeon MD * Anesthesia Preprocedure Evaluation - Bonita Mckeon MD - 04/01/2022 2:22 PM EST Pre-Anesthesia Evaluation for: Daphne Pickard a 56 y.o. female. Procedure(s): LAPAROSCOPY, REMOVAL OF ADNEXA (WRVU 11.35) Patient Active Problem List Diagnosis Date Noted ??? Acute pulmonary embolus 02/08/2018 ??? Pulmonary embolism 02/08/2018 ??? Postoperative anemia due to acute blood loss 12/21/2017 ??? Trauma 12/14/2017 ??? 12/14/2017 ORIF right tibial plateau fx (Dr. Romero) 12/14/2017 ??? 12/14/2017 ORIF right distal radius fracture (Dr. Romero) 12/14/2017 ??? 12/20/2017 ORIF left acetabulum for closed fracture of posterior wall of left acetabulum (Dr. Talamantes) 12/14/2017 Past Medical History: Diagnosis Date ??? Basal cell carcinoma 2010 Past Surgical History: Procedure Laterality Date ??? PRG RADEX HIP UNILATERAL WITH PELVIS 1 VIEW Left 12/14/2017 HIP INTRAOP RADIOLOGIC EXAMINATION, UNILATERAL, W PELVIS; 1 VIEW (WRVU 0.18) performed by Reinaldo Romero MD at [facility] MAIN OR ??? PRO COLONOSCOPY, DIAGNOSTIC N/A 06/25/2017 COLONOSCOPY, DIAGNOSTIC performed by Kimani Rojas MD at [facility] ENDOSCOPY ??? PRO OPEN MULTIMEDIA AUTHOR FIX ACETABULAR FX Left 12/20/2017 @OPEN TREATMENT, ACETABULAR FX (WRVU 25.41) performed by Tete Talamantes MD at [facility] MAIN OR ??? PRO OPEN RX DISTAL RADIUS FX, INTRA-ARTICULAR, 3+ FRAG Right 12/14/2017 ORIF DISTAL RADIUS, 3 OR MORE FRAGMENTS (WRVU 14.38) performed by Reinaldo Romero MD at [facility] MAIN OR ??? PRO OPEN TX TIBIAL FRACTURE PROXIMAL UNICONDYLAR Right 12/14/2017 @ORIF TIBIAL PLATEAU (PROXIMAL) UNICONDYLAR (WRVU 13.41) performed by Reinaldo Romero MD at [facility] MAIN OR ??? PRO REM SUTURES W ANESTH OTHR SURGEON N/A 01/12/2018 REMOVAL OF SUTURE UNDER ANESTHESIA, OTHER SURGEON, LOWER EXTREMITY (WRVU 0.86) performed by Reinaldo Romero MD at [facility] MAIN OR Social History Tobacco Use ??? Smoking status: Former Smoker Types: Cigarettes Quit date: 2000 Years since quittin.8 ??? Smokeless tobacco: Never Used Substance Use Topics ??? Alcohol use: Yes Alcohol/week: 2.0 standard drinks Types: 2 Glasses of wine per week Social History Substance and Sexual Activity Drug Use Not Currently Allergies Allergen Reactions ??? Gabapentin Nausea And Vomiting Medications: MAR and/or home medications have been reviewed. Physical Exam: Preprocedure Vitals Current as of 04/01/22 1422 No BP, pulse, respiration, SpO2, or temperature recorded. Height: Weight: BMI: IBW: Airway Assessment: Mallampati: II TM distance: >3 FB Neck ROM: full Cardiovascular Assessment: Rhythm: regular Rate: normal Pulmonary Assessment: unlabored breathing Dental Assessment: Misc Assessment: IV access: Peripheral line Last Filed Perioperative Cognitive Screening None Anesthesia Plan: ASA 2 general, with a(n) intravenous induction 56 yo F for B Salpingo-Oopherectomy. Hx of trauma 4 years ago in horseback riding accident, Anxiety, PE Allergy to Gabapentin Plan PO Tylenol, IV, GA/ETT, TAP FBS is 64 and patient is awake, alert, and no ALONSO, sweating, or unease suggestive of LBS. Region - Other Informed Consent: Anesthetic plan and risks discussed with patient and spouse. Plan discussed with MARSHMALLOW MACHINE WORKER and attending. Anesthesia Screening documented in this encounter Plan of Treatment Upcoming Encounters Date Type Department Care Team (Late st Contact Info) Description 01/31/2024 9:15 AM EDT Appointment Hematology [place] [address] 01/31/2024 10:20 AM EDT Office Visit [place] [address] Rebecca Small MD [facility] [place] [address] 08/01/2024 11:30 AM EDT Office Visit Dermatology at [facility] [address] [place] [address] Phan Engle MD [facility] DR [place] [address] documented as of this encounter Visit Diagnoses Not on filedocumented in this encounter Administered Medications Inactive Administered Medications - up to 3 most recent administrations Medication Order MAR Action Action Date Dose Rate Site ceFAZolin (Ancef) 1 g in dextrose 5% 50 mL infusion Intravenous, PRN, Starting on Juliette 04/02/22 at 1007, Until Juliette 04/02/22 at 1125, Administer over 30 Minutes, Anesthesia Intra-op Given 04/02/2022 10:07 AM EST 2 g dexAMETHasone (Decadron) injection Intravenous, PRN, Starting on Juliette 04/02/22 at 0750, Until Juliette 04/02/22 at 1125, Anesthesia Intra-op, Routine Given 04/02/2022 7:50 AM EST 8 mg dexmedeTOMIDine (Precedex) (4 mcg/mL) bolus injection (Anesthsia) Intravenous, PRN, Starting on Juliette 04/02/22 at 0914, Until Juliette 04/02/22 at 1125, Anesthesia Intra-op, Routine Given 04/02/2022 9:14 AM EST 20 mcg fentaNYL (pf) (50 mcg/mL) multi-dose injection Intravenous, PRN, Starting on Juliette 04/02/22 at 0739, Until Juliette 04/02/22 at 1125, Anesthesia Intra-op, Routine Given 04/02/2022 10:04 AM EST 50 mcg Given 04/02/2022 9:01 AM EST 50 mcg Given 04/02/2022 7:39 AM EST 50 mcg lactated ringers infusion 1,000 mL, at 100 mL/hr, Intravenous, CONTINUOUS, Starting on Juliette 04/02/22 at 0715, Until Juliette 04/02/22 at 1559, Day of Surgery (Day of Procedure) New Bag 04/02/2022 10:21 AM EST New Bag 04/02/2022 7:33 AM EST metroNIDAZOLE (Flagyl) 500 mg in sodium chloride 0.9% 100 mL infusion Intravenous, PRN, Starting on Juliette 04/02/22 at 1007, Until Juliette 04/02/22 at 1125, Administer over 30 Minutes, Anesthesia Intra-op Given 04/02/2022 10:07 AM EST 500 mg midazolam (pf) (Versed) (1 mg/mL) multi-dose injection Intravenous, PRN, Starting on Juliette 04/02/22 at 0730, Until Juliette 04/02/22 at 1125, Anesthesia Intra-op, Routine Given 04/02/2022 7:30 AM EST 2 mg ondansetron (pf) (Zofran) (2 mg/mL) injection Intravenous, PRN, Starting on Juliette 04/02/22 at 1049, Until Juliette 04/02/22 at 1125, Anesthesia Intra-op, Routine Given 04/02/2022 10:49 AM EST 4 mg PHENYLephrine in NS (PF) (AG-SYNEPHRINE) 0.8 mg/10 mL (80 mcg/mL) multi-dose injection Syrg Intravenous, PRN, Starting on Juliette 04/02/22 at 0851, Until Juliette 04/02/22 at 1125, Anesthesia Intra-op, Routine Given 04/02/2022 8:50 AM EST 40 mcg propofoL (Diprivan) (10 mg/mL) infusion Intravenous, CONTINUOUS PRN, Starting on Juliette 04/02/22 at 0743, Until Juliette 04/02/22 at 1125, Anesthesia Intra-op, Routine Rate/Dose Change 04/02/2022 8:25 AM EST 65 mcg/kg/min 27.924 mL/hr Rate/Dose Change 04/02/2022 8:12 AM EST 75 mcg/kg/min 32.2 2 mL/hr Rate/Dose Change 04/02/2022 8:06 AM EST 65 mcg/kg/min 27.9 24 mL/hr propofoL (Diprivan) 10 mg/mL bolus injection (Anesthesia) Intravenous, PRN, Starting on Juliette 04/02/22 at 0739, Until Juliette 04/02/22 at 1125, Anesthesia Intra-op Given 04/02/2022 7:42 AM EST 50 mg Given 04/02/2022 7:39 AM EST 200 mg rocuronium (Zemuron) 10 mg/mL injection Intravenous, PRN, Starting on Juliette 04/02/22 at 0739, Until Juliette 04/02/22 at 1125, Anesthesia Intra-op, Routine Given 04/02/2022 10:10 AM EST 20 mg Given 04/02/2022 9:52 AM EST 20 mg Given 04/02/2022 8:54 AM EST 20 mg sugammadex (Bridion) 100 mg/mL injection Intravenous, PRN, Starting on Juliette 04/02/22 at 1101, Until Juliette 04/02/22 at 1125, Anesthesia Intra-op, Routine Given 04/02/2022 11:01 AM EST 200 mg documented in this encounter Care Teams Field Counsel Relationship Specialty Start Date End Date Grecia Maddox MD [address] [place] [address] PCP - General Family Medicine 05/16/18 07/14/23 documented as of this encounter
--- OUTSIDE RECORDS SUMMARY | 2023-12-15 01:15 | XMS_ITS | Encounter Summary ---
Author Organization [facility] Address [facility] [place] [address] Care Team Providers Care Orchestra Director Name Role Phone Keiko Reddy MD Primary Care Provider [phone] Encounter Details Date Type Department Care Team (Latest Contact Info) Description 04/12/2018 9:50 AM EST - 04/12/2018 11:59 PM [facility] Hospital Encounter XRay at [address] [place] [address] [facility] ORTHOPAEDIC [place] [address] Closed fracture of proximal end of right tibia, unspecified fracture morphology, sequela Discharge Disposition: Home Social History Tobacco Use [...] Sig Dispensed Refills Start Date End Date rOPINIRole (REQUIP) 0.5 mg Tablet Take 0.5 mg by mouth nightly. 03/19/2022 apixaban (ELIQUIS) 5 mg Tablet Take 1 tablet by mouth 2 times daily. 60 tablet 02/16/2018 03/19/2022 cyclobenzaprine (FLEXERIL) 10 mg Tablet 01/19/2018 05/0 11/2023 acetaminophen (TYLENOL) 500 mg Tablet Take 2 tablets by mouth every 6 hours. Continue the Tylenol around the clock for 10 days after surgery, (12/30/2017). Then may take if needed per package insert. Do not take more than 3,000 mg of Tylenol in 24 hours. 12/24/2017 04/02/2022 documented as of this encounter Plan of Treatment Upcoming Encounters Date Type Department Care Team (Late st Contact Info) Description 01/31/2024 9:15 AM EDT Appointment Hematology [place] [address] 01/31/2024 10:20 AM EDT Office Visit [place] [address] [facility] GYNECOLOGIC [place] [address] 08/01/2024 11:30 AM EDT Office Visit Dermatology at [address] [address] [facility] DR JESS HERNANDEZ-[place] [address] documented as of this encounter Procedures Procedure Name Priority Date/Time Associated Diagnosis Comments XR KNEE AP & LAT RIGHT Routine 04/12/2018 10:31 AM EST Closed fracture of proximal end of right tibia, unspecified fracture morphology, sequela documented in this encounter Results * XR Knee 1-2 Views Right (Generic) (04/12/2018 10:31 AM EST) Anatomical Region Laterality Modality Knee Right Digital Radiogra phy Impressions 04/12/2018 11:30 AM EST Right tibial plateau fracture with evidence of ongoing healing; ??hardware without evidence of interval complication or change in alignment. Narrative 04/12/2018 11:30 AM EST EXAMINATION: XR KNEE 1-2 VIEWS RIGHT (GENERIC) CLINICAL HISTORY: right prox tiia fx TECHNIQUE: AP and lateral right knee COMPARISON: 02/16/2018 FINDINGS: Examination demonstrates plate and screw fixation hardware of the right tibial plateau fracture. The fracture line is less evident suggesting healing. The alignment is anatomic and stable. No new fracture or pericomponent lucency. The hardware appears intact. No knee joint effusion. Procedure Note Camila Luna MD - 04/12/2018 EXAMINATION: XR KNEE 1-2 VIEWS RIGHT (GENERIC) CLINICAL HISTORY: right prox tiia fx TECHNIQUE: AP and lateral right knee COMPARISON: 02/16/2018 FINDINGS: Examination demonstrates plate and screw fixation hardware of the righttibial plateau fracture. The fracture line is less evident suggesting healing.The alignment is anatomic and stable. No new fracture or pericomponentlucency. The hardware appears intact. No knee joint effusion. IMPRESSION Right tibial plateau fracture with evidence of ongoing healing;hardware without evidence of interval complication or change in alignment. Electronically signed by: Camila Luna Radiology, at106/12/2017 11:30 AM Reinaldo Romero MD IMG DX ORDERABLES documented in this encounter Visit Diagnoses Diagnosis Closed fracture of proximal end of right tibia, unspecified fracture morphology, sequela documented in this encounter Care Teams Orchestra Director Relationship Specialty Start Date End Date Keiko Reddy MD [address] [address] PCP - General Family Medicine 06/18/17 05/15/18 documented as of this encounter
--- OUTSIDE RECORDS SUMMARY | 2023-12-15 01:15 | XMS_ITS | Encounter Summary ---
Author Organization [facility] Address [facility] [place] [address] Care Team Providers Care Pharmaceutical Sales Name Role Phone Grecia Maddox MD Primary Care Provider [phone] Encounter Details Date Type Department Care Team (Latest Contact Info) Description 03/19/2022 Travel Social History Tobacco Use Types Packs/Day [...] AM EDT Appointment Hematology [place] [address] 01/31/2024 10:20 AM EDT Office Visit [place] [address] Rebecca Small MD [facility] [place] [address] 08/01/2024 11:30 AM EDT Office Visit Dermatology at [facility] [address] [place] [address] Phan Engle MD [facility] [place] [place] [address] documented as of this encounter Visit Diagnoses Not on filedocumented in this encounter Care Teams Pharmaceutical Sales Relationship Specialty Start Date End Date Grecia Maddox MD [address] [place] [address] PCP - General Family Medicine 05/16/18 07/14/23 documented as of this encounter
--- OUTSIDE RECORDS SUMMARY | 2023-12-15 01:15 | XMS_ITS | Encounter Summary ---
Author Organization [facility] Address [facility] [place] [address] Care Team Providers Care Legal Researcher Name Role Phone Grecia Maddox MD Primary Care Provider [phone] Encounter Details Date Type Department Care Team (Late st Contact Info) Description 03/20/2022 Telephone Gynecology [place] [address] Rebecca Small MD [facility] [place] [address] Social History Tobacco Use Types Packs/Day Years [...] encounter Miscellaneous Notes * Telephone Encounter - Rebecca Small MD - 03/20/2022 12:23 PM EDT Spoke with Daphne about her CA 19-9 and CA-125. Her CA 19-9 is significantly elevated. She has had a CT with no abnormality seen in the pancreas. I will have the radiologists give a second read of that scan. I will also be sure to visualize her appendix at the time of her surgery. We discussedthat her tumor markers are concerning for malignancy, but can be elevated in the absence of any cancer. Plan to proceed with BSO as scheduled. documented in this encounter Plan of Treatment Upcoming Encounters Date Type Department Care Team (Late st Contact Info) Description 01/31/2024 9:15 AM EDT Appointment Hematology [place] [address] 01/31/2024 10:20 AM EDT Office Visit Gynecology [place] [address] Rebecca Small MD [facility] [place] [address] 08/01/2024 11:30 AM EDT Office Visit Dermatology at [address] [place] [address] Phan Engle MD [facility] DR JESS [place] [address] documented as of this encounter Visit Diagnoses Not on filedocumented in this encounter Care Teams Legal Researcher Relationship Specialty Start Date End Date Grecia Maddox MD [address] [place] [address] PCP - General Family Medicine 05/16/18 07/14/23 documented as of this encounter
--- OUTSIDE RECORDS SUMMARY | 2023-12-15 01:15 | XMS_ITS | Encounter Summary ---
Author Organization [facility] Address [facility] [place] [address] Care Team Providers Care Director Of Medicare Name Role Phone Grecia Maddox MD Primary Care Provider [phone] Encounter Details Date Type Department Care Team (Late st Contact Info) Description 05/20/2022 Telephone Gynecology [place] [address] Rebecca Small MD [facility] [place] [address] Social History Tobacco Use Types Packs/Day Years [...] Telephone Encounter - Rebecca Small MD - 05/20/2022 4:12 PM EST Spoke to Daphne about her upcoming surgery and pros and cons of undergoing lymphadenectomy. At this point she does not want to proceed with surgery. WIll follow in 3 mos with tumor markers. documented in this encounter Plan of Treatment Upcoming Encounters Date Type Department Care Team (Late st Contact Info) Description 01/31/2024 9:15 AM EDT Appointment Hematology [place] [address] 01/31/2024 10:20 AM EDT Office Visit [place] [address] Rebecca Small MD [facility] [place] [address] 08/01/2024 11:30 AM EDT Office Visit Dermatology at [facility] [address] [place] [address] Phan Engle MD [facility] DR JESS [place] [address] documented as of this encounter Visit Diagnoses Not on filedocumented in this encounter Care Teams Director Of Medicare Relationship Specialty Start Date End Date Grecia Maddox MD [address] [place] [address] PCP - General Family Medicine 05/16/18 07/14/23 documented as of this encounter
--- OUTSIDE RECORDS SUMMARY | 2023-12-15 01:15 | XMS_ITS | Encounter Summary ---
Author Organization [facility] [place] [address] Care Team Providers Care Realtime Reporter Name Role Phone Keiko Reddy MD Primary Care Provider [phone] Encounter Details Date Type Department Care Team (Late st Contact Info) Description 02/17/2018 Orders [place] [address] Reinaldo Romero MD [facility] DR [place] [address] Closed fracture of proximal end of right tibia, unspecified fracture morphology, sequela; Closed nondisplaced fracture of left acetabulum with [...] AM EDT Appointment [place]ematology [place] [address] 01/31/2024 10:20 AM EDT Office Visit [place] [address] Rebecca Small MD [facility] [place] [address] 08/01/2024 11:30 AM EDT Office Visit Dermatology at [facility] [address] [place] [address] Phan Engle MD [facility] DR JESS [place] [address] documented as of this encounter Results * XR Pelvis & Lat Hip Left (Generic) (04/12/2018 10:31 AM EST) Anatomical Region Laterality Modality Pelvis, Hip Left Digital Radiogra phy Impressions 04/12/2018 11:44 AM EST 1. ??Status post left acetabular plate and screw fixation. No interval change in alignment or appearance of the hardware. Alignment is anatomic and stable. Narrative 04/12/2018 11:44 AM EST EXAMINATION: XR PELVIS AND LAT HIP LEFT (GENERIC) CLINICAL HISTORY: left acetabular fracture TECHNIQUE: AP pelvis and lateral radiograph left hip COMPARISON: 02/16/2018 FINDINGS: Examination demonstrates plate and screw fixation of a left posterior wall acetabular fracture. Fracture lines are less evident consistent with ongoing healing. The alignment is anatomic and stable. No new fractures or pericomponent lucency. Hardware appears intact. Mild degenerative changes of the right hip again noted. Sacroiliac joints appear normal. Procedure Note Camila Luna MD - 04/12/2018 EXAMINATION: XR PELVIS AND LAT HIP LEFT (GENERIC) CLINICAL HISTORY: left acetabular fracture TECHNIQUE: AP pelvis and lateral radiograph left hip COMPARISON: 02/16/2018 FINDINGS: Examination demonstrates plate and screw fixation of a leftposterior wall acetabular fracture. Fracture lines are less evident consistentwith ongoing healing. The alignment is anatomic and stable. No new fracturesor pericomponent lucency. Hardware appears intact. Mild degenerative changesof the right hip again noted. Sacroiliac joints appear normal. IMPRESSION 1. Status post left acetabular plate and screw fixation. No intervalchange in alignment or appearance of the hardware. Alignment is anatomic andstable. Electronically signed by: [facility], at106/12/2017 11:44 AM Reinaldo Romero MD [facility] * XR Knee 1-2 Views Right (Generic) [...] or change in alignment. Electronically signed by: [facility], at106/12/2017 11:30 AM Reinaldo Romero MD [facility] documented in this encounter Visit Diagnoses Diagnosis Closed fracture of proximal end of right tibia, unspecified fracture morphology, sequela Closed nondisplaced fracture of left acetabulum with routine healing, unspecified portion of acetabulum, subsequent encounter Closed nondisplaced fracture of left acetabulum with routine healing, unspecified portion of acetabulum, subsequent encounter Closed fracture of proximal end of right tibia, unspecified fracture morphology, sequela documented in this encounter Care Teams Realtime Reporter Relationship Specialty Start Date End Date Keiko Reddy MD [address] [address] PCP - General Family Medicine 06/18/17 05/15/18 documented as of this encounter
--- OUTSIDE RECORDS SUMMARY | 2023-12-15 01:15 | XMS_ITS | Encounter Summary ---
Author Organization [facility] Address [facility] [place] [address] Care Team Providers Care Investigation Manager Name Role Phone Keiko Reddy MD Primary Care Provider [phone] Encounter Details Date Type Department Care Team (Latest Contact Info) Description 04/12/2018 9:50 AM EST - 04/12/2018 11:59 PM [facility] Hospital Encounter XRay at [address] [place] [address] Reinaldo Romero MD [facility] [place] [address] Wrist fracture, closed, right, with routine healing, subsequent encounter Discharge Disposition: Home Social History Tobacco Use [...] AM EDT Appointment Hematology [place] [address] 01/31/2024 10:20 AM EDT Office Visit [place] [address] Rebecca Small MD [facility] [place] [address] 08/01/2024 11:30 AM EDT Office Visit Dermatology at [place] [address] [place] [address] Phan Engle MD [facility] DR J[place] [address] documented as of this encounter Procedures Procedure Name Priority Date/Time Associated Diagnosis Comments XR WRIST 3 VIEWS RIGHT Routine 04/12/2018 10:31 AM EST Wrist fracture, closed, right, with routine healing, subsequent encounter documented in this encounter Results * XR Wrist Complete [...] encounter documented in this encounter Care Teams Investigation Manager Relationship Specialty Start Date End Date Keiko Reddy MD [address] [address] PCP - General Family Medicine 06/18/17 05/15/18 documented as of this encounter
--- OUTSIDE RECORDS SUMMARY | 2023-12-15 01:15 | XMS_ITS | Encounter Summary ---
[place] [address] Care Team Providers Care Plow Mechanic Name Role Phone Grecia Maddox MD Primary Care Provider Encounter Details Date Type Department Care Team (Late st Contact Info) Description 07/29/2022 Notes Only [place] [phone] Adina Du, RN Social History Tobacco Use Types Packs/Day [...] as of this encounter Progress Notes * Adina Anderson - 07/29/2022 10:59 AM EST Referral for pelvic floor PT faxed to Dani Rodriguez PT in [facility]. documented in this encounter Plan of Treatment Upcoming Encounters Date Type Department Care Team (Late st Contact Info) Description 01/31/2024 9:15 AM EDT Appointment Hematology [place] [phone] 01/31/2024 10:20 AM EDT Office Visit [place] [address] Rebecca Small MD [facility] [place] [address] 08/01/2024 11:30 AM EDT Office Visit Dermatology at [facility] [address] [place] [address] Phna Engle MD [facility] DR JESS [place] [address] documented as of this encounter Visit Diagnoses Not on filedocumented in this encounter Care Teams Plow Mechanic Relationship Specialty Start Date End Date Grecia Maddox MD [address] [place] [address] PCP - General Family Medicine 05/16/18 07/14/23 documented as of this encounter
--- OUTSIDE RECORDS SUMMARY | 2023-12-15 01:15 | XMS_ITS | Encounter Summary ---
Author Organization [facility] Address [facility] [place] [address] Care Team Providers Care Fourdrinier Wire Weaver Name Role Phone Keiko Reddy MD Primary Care Provider [phone] Encounter Details Date Type Department Care Team (Latest Contact Info) Description 02/16/2018 2:29 PM EDT - 02/16/2018 11:59 PM EDT Hospital Encounter XRay at [address] [place] [address] Reinaldo Romero MD [facility] [place] [address] Right wrist fracture, with routine healing, subsequent encounter Discharge Disposition: [...] Sig Dispensed Refills Start Date End Date apixaban (ELIQUIS) 5 mg Tablet Take 1 tablet by mouth 2 times daily. 60 tablet 02/16/2018 03/19/2022 cyclobenzaprine (FLEXERIL) 10 mg Tablet 01/19/2018 05/0 11/2023 melatonin 1 mg Tablet Take by mouth. 03/25 acetaminophen (TYLENOL) 500 mg Tablet Take 2 [...] AM EDT Appointment Hematology [place] [address] 01/31/2024 10:20 AM EDT Office Visit [place] [address] Rebecca Small MD [facility] [place] [address] 08/01/2024 11:30 AM EDT Office Visit Dermatology at [address] [place] [address] Phan Engle MD [facility] DR JESS [place] [address] documented as of this encounter Procedures Procedure Name Priority Date/Time Associated Diagnosis Comments XR WRIST 3 VIEWS RIGHT Routine 02/16/2018 3:04 PM EDT Right wrist fracture, with routine healing, subsequent encounter documented in this encounter Results * XR Wrist Complete Min 3 views Right (Generic) (02/16/2018 3:04 PM EDT) Anatomical Region Laterality Modality Right Digital Radiogra phy Impressions 02/16/2018 4:07 PM EDT Fixation of the distal right radial fracture. The appearance of the wrist is unchanged. Narrative 02/16/2018 4:07 PM EDT EXAMINATION: XR WRIST COMPLETE MIN 3 VIEWS RIGHT (GENERIC) CLINICAL HISTORY: right distal radius fracture TECHNIQUE: PA, oblique and lateral of the right wrist COMPARISON: January 28, 2018 December 13, 2017 FINDINGS: There has been a comminuted intra-articular fracture of the distal right radius. Fracture fixation has been performed with a volar plate and screws. The previously present cast has been removed. The fracture fragments are well aligned. The fracture line is faintly visible. Procedure Note Nas Ko MD - 02/16/2018 EXAMINATION: XR WRIST COMPLETE MIN 3 VIEWS RIGHT (GENERIC) CLINICAL HISTORY: right distal radius fracture TECHNIQUE: PA, oblique and lateral of the right wrist COMPARISON: January 28, 2018 December 13, 2017 FINDINGS: There has been a comminuted intra-articular fracture of the distal rightradius. Fracture fixation has been performed with a volar plate and screws. The previously present cast has been removed. The fracture fragments arewell aligned. The fracture line is faintly visible. IMPRESSION Fixation of the distal right radial fracture. The appearance of the wristis unchanged. Reinaldo Romero MD [facility] ORDERABLES documented in this encounter Visit Diagnoses Diagnosis Right wrist fracture, with routine healing, subsequent encounter documented in this encounter Care Teams Fourdrinier Wire Weaver Relationship Specialty Start Date End Date Keiko Reddy MD [address] [address] PCP - General Family Medicine 06/18/17 05/15/18 documented as of this encounter
--- OUTSIDE RECORDS SUMMARY | 2023-12-15 01:15 | XMS_ITS | Encounter Summary ---
Author Organization [facility] Address [facility] [place] [address] Care Team Providers Care Studio Director Name Role Phone Grecia Maddox MD Primary Care Provider [phone] Reason for Referral * Physical Therapy (Routine) - Specialty Diagnoses / Procedures Referred By Contac t Referred To Contact Physical Therapy Diagnoses Closed fracture of right tibial plateau with routine healing, subsequent encounter Radius/ulna fracture, right, closed, initial encounter Closed displaced fracture of posterior wall of left acetabulum with routine healing, subsequent encounter Reinaldo Romero MD [facility] [place] [address] Referral ID Status Reason Start Date Expiration Date V isits Requested Visits Authorized [id number] Evaluate and Treat 06/07/2018 12/04/2018 12 12 Reason for Visit * Reason Comments Right Leg Fracture DOI 12/13/2017 R tib plateau R distal rad left acetab ORIF 12/14/2017 o Encounter Details Date Type Department Care Team (Late st Contact Info) Description 06/07/2018 11:10 AM EST Office [place] [address] Reinaldo Romero MD [facility] [place] [address] Closed fracture of right tibial plateau with routine healing, subsequent encounter (Primary Dx); 12/14/2017 ORIF right distal radius fracture (Dr. [...] Sign Reading Time Taken Comments Blood Pressure 138/73 06/07/2018 11:14 AM EST Pulse 65 06/07/2018 11:14 AM EST Temperature - - Respiratory Rate - - Oxygen Saturation - - Inhaled Oxygen Concentration - - Weight 69.9 kg (154 lb) 06/07/2018 11:14 AM EST PT REPORTED Height 165.1 cm (5' 5) 06/07/2018 11:14 AM EST PT REPORTED Body Mass Index 25.63 06/07/2018 11:14 AM EST documented in this encounter Progress Notes * Reinaldo Romero MD - 06/07/2018 11:10 AM EST Orthopedic follow-up note ? arthroplasty/Orthopaedic History: 1. ORIF for Right distal radius fracture - 12/14/17 - Dr. Romero 2. ORIF for Right proximal tibia fracture - 12/14/17 - Heather 3. ??ORIF for??Left??acetabular fracture - 12/20/17 - Albin ?? Ms. Pickard returns in follow-up for the above injuries and procedures. ??She has been working on physical therapy improving her range of motion. She denies chest pain, SOB, nausea, vomiting, fevers/chills. She has been having discomfort in the right knee with ambulation as well as in the left buttock area she has been having some discomfort in her right wrist as well. Continues to make significant improvements in range of motion and strength. But she still requires a walker for ambulation. She recounts having a right carpal tunnel release in June 2017 as well as a trigger thumb release prior tothis injury and she thinks that might be making her recovery slower. ?? Objective: Awake alert no acute distress Right upper extremity demonstrates a well-healed volar incision over the wrist. She has about 75 degrees of flexion of the wrist and 50 degrees of extension. She is able to ulnar and radially deviateher wrist. 2+ radial pulse. No significant swelling. ??EPL FPL interossei intact in both upper extremities. ??Normal sensation in both lower extremitiesin the SP DP tibial distributions. ??EHL FHL ankle plantar dorsiflexion intact. 1+ effusion in the right knee. ??Well-healed surgical incisions throughout all extremities. Range of motion of the right knee is from 0 degrees of extension to 125 degrees of flexion. Stable to varus and valgus stress. Stable to anterior and posterior drawer. Left hip demonstrates about 30 degrees of internal and external rotation. She has some pain in the lateral aspect of the hip with external rotation. ?? Imaging: No x-rays today. ? Assessment/plan: 52-year-old about 6 months status post the above surgeries on her right distal radius, right proximal tibia, left acetabulum. She continues to make improvements with her ambulatory abilities and her range of motion but she continues to have some pain in her left hip, right knee, right wrist and she continues to require a walker for ambulation. She will need to continue to work with physical therapy. She was given a note today saying that she likely could not work for another 3 months. She needs to be able to ambulate much better and be able to carry 50 pound objects. 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 We will keep working on physical therapy at home as well. She should follow-up in 3 monthswith x-rays of the right wrist, right knee, and left hip. New physical therapy prescription was given to her today. documented in this encounter Plan of Treatment Upcoming Encounters Date Type Department Care Team (Late st Contact Info) Description 01/31/2024 9:15 AM EDT Appointment Hematology [place] [address] 01/31/2024 10:20 AM EDT Office Visit [place] [address] Rebecca Small MD [facility] [place] [address] 08/01/2024 11:30 AM EDT Office Visit Dermatology at [facility] [address] [place] [address] Phan Engle MD [facility] [place] [address] Scheduled Referrals Name Type Priority Associated Diagnoses Orde r Schedule Referral to Physical Therapy Outpatient Referral Routine Closed fracture of right tibial plateau with routine healing, subsequent encounter 12/14/2017 ORIF right distal radius fracture (Dr. Romero) Closed displaced fracture of posterior wall of left acetabulum with routine healing, subsequent encounter Ordered: 06/07/2018 documented as of this encounter Visit Diagnoses Diagnosis Closed fracture of right tibial plateau with routine healing, subsequent encounter- Primary 12/14/2017 ORIF right distal radius fracture (Dr. Romero) Closed displaced fracture of posterior wall of left acetabulum with routine healing, subsequent encounter documented in this encounter Care Teams Studio Director Relationship Specialty Start Date End Date Grecia Maddox MD [address] [place] [address] PCP - General Family Medicine 05/16/18 07/14/23 documented as of this encounter
--- OUTSIDE RECORDS SUMMARY | 2023-12-15 01:15 | XMS_ITS | Encounter Summary ---
Author Organization [facility] [place] [address] Care Team Providers Care Cap Lining Machine Operator Name Role Phone Grecia Maddox MD Primary Care Provider [phone] Encounter Details Date Type Department Care Team (Late st Contact Info) Description 03/19/2022 Telephone [place] [address] Rebecca Small MD [facility] [place] [address] Social History Tobacco Use Types Packs/Day Years [...] Telephone Encounter - Rebecca Small MD - 03/19/2022 12:50 PM EDT LVM to review lab results documented in this encounter Plan of Treatment Upcoming Encounters Date Type Department Care Team (Late st Contact Info) Description 01/31/2024 9:15 AM EDT Appointment Hematology [place] [phone] 01/31/2024 10:20 AM EDT Office Visit [place] [address] Rebecca Small MD [facility] [place] [address] 08/01/2024 11:30 AM EDT Office Visit Dermatology at [facility] [address] [place] [address] Phan Engle MD [facility] [place] [address] documented as of this encounter Visit Diagnoses Not on filedocumented in this encounter Care Teams Cap Lining Machine Operator Relationship Specialty Start Date End Date Grecia Maddox MD [address] [place] [address] PCP - General Family Medicine 05/16/18 07/14/23 documented as of this encounter
--- OUTSIDE RECORDS SUMMARY | 2023-12-15 01:15 | XMS_ITS | Encounter Summary ---
Author Organization [place] [address] Care Team Providers Care Retail District Manager Name Role Phone Grecia Maddox MD Primary Care Provider [phone] Encounter Details Date Type Department Care Team (Latest Contact Info) Description 07/24/2022 11:46 AM EST - 07/24/2022 11:59 PM [facility] Hospital Encounter Hematology [place] [address] Ovarian mass Discharge Disposition: Home Social History Tobacco Use [...] EDT Appointment Hematology [place] [address] 01/31/2024 10:20 AM EDT Office Visit [place] [address] Rebecca Small MD [facility] [place] [address] 08/01/2024 11:30 AM EDT Office Visit Dermatology at [place] [address] [place] [address] Phan Engle MD [facility] DR JESS HERNAN[place] [address] documented as of this encounter Procedures Procedure Name Priority Date/Time Associated Diagnosis Comments HC CARBOHYDRATE ANTIGEN 19-9 Routine 07/24/2022 11:53 AM EST Ovarian mass HC VENIPUNCTURE Routine 07/24/2022 11:53 AM EST Ovarian mass documented in this encounter Results * Carbohydrate Antigen 19-9 (07/24/2022 11:53 AM EST) CA 19-9 7.2 <=35.0 u/ml [facility] Comment: This result was generated using a Tammy Marcos immunoassay. ??Results obtained from other methods or manufacturers cannot be used interchangeably with this method. Blood 07/24/2022 11:5 3 AM EST 07/24/2022 12:01 PM EST Narrative Resulting Agency Comment Spec In Lab Rebecca Small MD CHEMISTRY ORDERABL ES Performing Organization Address [facility] Co de Phone Number [facility] [place] [address] * Cancer Antigen 125 (07/24/2022 11:53 AM EST) CA 125 8.0 <=38.1 unit/mL [facility] Comment: CA 125 Reference Interval ??Postmenopausal: 6.2 to 31.5 U/mL. ??Premenopausal: 6.9 to 45.9 U/mL. ??Pre and Postmenopausal subjects combined: 6.4 to 38.1 U/mL. This result was generated using a Tammy Marcos immunoassay. ??Results obtained from other methods or manufacturers cannot be used interchangeably with this method. Blood 07/24/2022 11:5 3 AM EST 07/24/2022 12:01 PM EST Narrative Resulting Agency Comment Spec In Lab Rebecca Small MD CHEMISTRY ORDERABL ES Performing Organization Address [facility] Co de Phone Number [facility] [place] [address] documented in this encounter Visit Diagnoses Diagnosis Ovarian mass Unspecified noninflammatory disorder of ovary, fallopian tube, and broad ligament documented in this encounter Care Teams Retail District Manager Relationship Specialty Start Date End Date Grecia Maddox MD [address] [place] [address] PCP - General Family Medicine 05/16/18 07/14/23 documented as of this encounter
--- OUTSIDE RECORDS SUMMARY | 2023-12-15 01:15 | XMS_ITS | Encounter Summary ---
Author Organization [facility] [place] [address] Care Team Providers Care Booster Pump Oiler Name Role Phone Grecia Maddox MD Primary Care Provider [phone] Encounter Details Date Type Department Care Team (Late st Contact Info) Description 05/20/2022 Orders Only [place] [phone] Pita Reed, HAYLEY Ovarian mass Social History Tobacco Use Types Packs/Day Years [...] AM EDT Appointment Hematology [place] [address] 01/31/2024 10:20 AM EDT Office Visit [place] [address] Rebecca Small MD [facility] [place] [address] 08/01/2024 11:30 AM EDT Office Visit Dermatology at [address] [place] [address] Phan Engle MD [facility] [place] [address] documented as of this encounter Results * Cancer Antigen 125 (07/24/2022 11:53 AM EST) CA 125 8.0 <=38.1 unit/mL [facility] Comment: CA 125 Reference Interval [...] MD CHEMISTRY ORDERABL ES Performing Organization Address City/[facility]/ZIP Co de Phone Number [facility] [place] [address] * Carbohydrate Antigen 19-9 (07/24/2022 11:53 AM EST) CA 19-9 7.2 <=35.0 u/ml [facility] Comment: This result was generated using a Tammy Marcos immunoassay. ??Results obtained from other methods or manufacturers cannot be used interchangeably with this method. Blood 07/24/2022 11:5 3 AM EST 07/24/2022 12:01 PM EST Narrative Resulting Agency Comment Spec In Lab Rebecca Small MD CHEMISTRY ORDERABL ES Performing Organization Address City/[facility]/ZIP Co de Phone Number [facility] [place] [address] documented in this encounter Visit Diagnoses Diagnosis Ovarian mass Unspecified noninflammatory disorder of ovary, fallopian tube, and broad ligament documented in this encounter Care Teams Booster Pump Oiler Relationship Specialty Start Date End Date Grecia Maddox MD [address] [place] [address] PCP - General Family Medicine 05/16/18 07/14/23 documented as of this encounter
--- OUTSIDE RECORDS SUMMARY | 2023-12-15 01:15 | XMS_ITS | Encounter Summary ---
Author Organization [facility] Address [facility] [place] [address] Care Team Providers Care Back Closer Name Role Phone Grecia Maddox MD Primary Care Provider [phone] Encounter Details Date Type Department Care Team (Latest Contact Info) Description 10/29/2022 Travel Social History Tobacco Use Types Packs/Day [...] AM EDT Appointment Hematology [place] [address] 01/31/2024 10:20 AM EDT Office Visit [place] [address] Rebecca Small MD [facility] [place] [address] 08/01/2024 11:30 AM EDT Office Visit Dermatology at [facility] [address] [place] [id number] Phan Engle MD [facility] DR JESS [place] [address] documented as of this encounter Visit Diagnoses Not on filedocumented in this encounter Care Teams Back Closer Relationship Specialty Start Date End Date Grecia Maddox MD [address] [place] [address] PCP - General Family Medicine 05/16/18 07/14/23 documented as of this encounter
--- OUTSIDE RECORDS SUMMARY | 2023-12-15 01:15 | XMS_ITS | Encounter Summary ---
Author Organization [facility] Address [facility] [place] [address] Care Team Providers Care Services Delivery Driver Name Role Phone Keiko Reddy MD Primary Care Provider [phone] Encounter Details Date Type Department Care Team (Latest Contact Info) Description 04/12/2018 9:49 AM [facility] Hospital Encounter XRay at [address] [place] [address] Reinaldo Romero MD [facility] [place] [address] Closed nondisplaced fracture of left acetabulum with routine healing, unspecified portion of acetabulum, subsequent encounter Discharge Disposition: Home Social History [...] AM EDT Appointment Hematology [place] [address] 01/31/2024 10:20 AM EDT Office Visit [place] [address] Rebecca Small MD [facility] [place] [address] 08/01/2024 11:30 AM EDT Office Visit Dermatology at [facility] [address] [place] [address] Phan Engle MD [facility] [place] [address] documented as of this encounter Procedures Procedure Name Priority Date/Time Associated Diagnosis Comments XR PELVIS AND LAT HIP LEFT Routine 04/12/2018 10:31 AM EST Closed nondisplaced fracture of left acetabulum with routine healing, unspecified portion of acetabulum, subsequent encounter documented in this encounter Results * XR Pelvis & [...] Alignment is anatomic andstable. Electronically signed by: Camila Luna Radiology, at106/12/2017 11:44 AM Reinaldo Romero MD IMG DX ORDERABLES documented in this encounter Visit Diagnoses Diagnosis Closed nondisplaced fracture of left acetabulum with routine healing, unspecified portion of acetabulum, subsequent encounter documented in this encounter Care Teams Services Delivery Driver Relationship Specialty Start Date End Date Keiko Reddy MD [address] [place] [address] PCP - General Family Medicine 06/18/17 05/15/18 documented as of this encounter
--- OUTSIDE RECORDS SUMMARY | 2023-12-15 01:16 | XMS_ITS | Encounter Summary ---
Author Organization [facility] [place] [address] Care Team Providers Care Steamfitter Name Role Phone Keiko Reddy MD Primary Care Provider [phone] Encounter Details Date Type Department Care Team (Late st Contact Info) Description 02/09/2018 Orders [place] [address] Reinaldo Romero MD [facility] [place] [address] Right wrist fracture, with routine healing, subsequent encounter; Right medial tibial plateau fracture, closed, with routine healing, subsequent encounter; Closed nondisplaced fracture of left acetabulum with [...] Appointment Hematology [place] [address] 01/31/2024 10:20 AM EDT Office Visit [place] [address] Rebecca Small MD [facility] [place] [address] 08/01/2024 11:30 AM EDT Office Visit Dermatology at [facility] [address] [place] [address] Phan Engle MD [facility] DR J[place] [address] documented as of this encounter Results * [...] unchanged. Reinaldo Romero MD IMG DX ORDERABLES * XR Pelvis w AP & Lat Hip Left (02/16/2018 3:03 PM EDT) Anatomical Region Laterality Modality Pelvis, Hip Left Digital Radiogra phy Impressions 02/16/2018 4:47 PM EDT Left acetabular fixation hardware with no interval change in alignment or in the appearance of the hardware. I have personally reviewed the image(s) and the residents interpretation and agree with the findings, Katherin Nguyen at 02/16/2018 4:47 PM Narrative 02/16/2018 4:47 PM EDT EXAMINATION: XR PELVIS W AP AND LAT HIP LEFT CLINICAL HISTORY: left acetabular fracture TECHNIQUE: AP pelvis and frontal and lateral radiographs of the left hip. COMPARISON: Prior radiographs dated 01/28/2018, 01/04/2018 and 12/20/2017. FINDINGS: Unchanged appearance of the left acetabular fixation hardware. Fracture lucency is not visualized. Alignment is unchanged. No new fractures or lucency surrounding the hardware. Redemonstrated degenerative changes and joint space narrowing of the right hip joint. Procedure Note Katherin Nguyen MD - 02/16/2018 EXAMINATION: XR PELVIS W AP AND LAT HIP LEFT CLINICAL HISTORY: left acetabular fracture TECHNIQUE: AP pelvis and frontal and lateral radiographs of the left hip. COMPARISON: Prior radiographs dated 01/28/2018, 01/04/2018 and 12/20/2017. FINDINGS: Unchanged appearance of the left acetabular fixation hardware. Fracturelucency is not visualized. Alignment is unchanged. No new fractures or lucency surrounding the hardware. Redemonstrated degenerative changes and joint space narrowing of the righthip joint. IMPRESSION Left acetabular fixation hardware with no interval change in alignment chuy the appearance of the hardware. I have personally reviewed the image(s) and the residents interpretationand agree with the findings, Katherin Nguyen at 02/16/2018 4:47 PM Reinaldo Romero MD IMG DX ORDERABLES * XR Knee 1-2 Views Right (Generic) (02/16/2018 3:03 PM EDT) Anatomical Region Laterality Modality Knee Right Digital Radiogra phy Impressions 02/16/2018 4:52 PM EDT Right tibial plateau fracture fixation hardware without evidence of interval complication or change in alignment. I have personally reviewed the image(s) and the residents interpretation and agree with the findings, Katherin Nguyen at 02/16/2018 4:52 PM Narrative 02/16/2018 4:52 PM EDT EXAMINATION: XR KNEE 1-2 VIEWS RIGHT (GENERIC) CLINICAL HISTORY: right tibial plateau fracture TECHNIQUE: Frontal and lateral radiographs of the right knee. COMPARISON: Prior right knee radiographs 01/28/2018, 01/04/2018 and 12/14/2017. FINDINGS: Unchanged appearance of the plate and screw fixation hardware of the right tibial plateau fracture. Fracture lucency remains visible at the articular surface, though other fracture lucencies are less conspicuous suggesting some degree of healing though incomplete. The alignment is unchanged. No new fractures or lucency surrounding the hardware. No knee joint effusion. Procedure Note Katherin Nguyen MD - 02/16/2018 EXAMINATION: XR KNEE 1-2 VIEWS RIGHT (GENERIC) CLINICAL HISTORY: right tibial plateau fracture TECHNIQUE: Frontal and lateral radiographs of the right knee. COMPARISON: Prior right knee radiographs 01/28/2018, 01/04/2018 and 12/14/2017. FINDINGS: Unchanged appearance of the plate and screw fixation hardware of theright tibial plateau fracture. Fracture lucency remains visible at thearticular surface, though other fracture lucencies are less conspicuous suggestingsome degree of healing though incomplete. The alignment is unchanged. No new fractures or lucency surrounding the hardware. No knee joint effusion. IMPRESSION Right tibial plateau fracture fixation hardware without evidence ofinterval complication or change in alignment. I have personally reviewed the image(s) and the residents interpretationand agree with the findings, Katherin Nguyen at 02/16/2018 4:52 PM Reinaldo Romero MD IMG DX ORDERABLES documented in this encounter Visit Diagnoses Diagnosis Right wrist fracture, with routine healing, subsequent encounter Right medial tibial plateau fracture, closed, with routine healing, subsequent encounter Closed nondisplaced fracture of left acetabulum with routine healing, unspecified portion of acetabulum, subsequent encounter Closed nondisplaced fracture of left acetabulum with routine healing, unspecified portion of acetabulum, subsequent encounter Right medial tibial plateau fracture, closed, with routine healing, subsequent encounter Right wrist fracture, with routine healing, subsequent encounter documented in this encounter Care Teams Steamfitter Relationship Specialty Start Date End Date Keiko Reddy MD [address] [address] PCP - General Family Medicine 06/18/17 05/15/18 documented as of this encounter
--- OUTSIDE RECORDS SUMMARY | 2023-12-15 01:16 | XMS_ITS | Encounter Summary ---
Author Organization [facility] Address [facility] [place] [address] Care Team Providers Care Biomedical Repair Technician Name Role Phone Keiko Reddy MD Primary Care Provider [phone] Encounter Details Date Type Department Care Team (Latest Contact Info) Description 01/28/2018 8:27 AM EDT - 01/28/2018 11:59 PM EDT Hospital Encounter XRay at [address] [place] [address] Reinaldo Romero MD [facility] DR [place] [address] Closed displaced fracture of posterior wall of left acetabulum, initial encounter; Closed fracture of right tibial plateau, initial encounter; 12/14/2017 ORIF right distal radius fracture (Dr. Romero) Discharge Disposition: Home Social History Tobacco Use [...] Sig Dispensed Refills Start Date End Date cyclobenzaprine (FLEXERIL) 10 mg Tablet 01/19/2018 05/0 [...] AM EDT Appointment Hematology [place] [address] 01/31/2024 10:20 AM EDT Office Visit [place] [address] Rebecca Small MD [facility] [place] [address] 08/01/2024 11:30 AM EDT Office Visit Dermatology at [facility] [address] [place] [address] Phan Engle MD [facility] [address] JESS HERNAN[place] [address] documented as of this encounter Procedures Procedure Name Priority Date/Time Associated Diagnosis Comments XR KNEE AP & LAT RIGHT Routine 01/28/2018 9:11 AM EDT Closed fracture of right tibial plateau, initial encounter XR WRIST 3 VIEWS RIGHT Routine 01/28/2018 9:11 AM EDT 12/14/2017 ORIF right distal radius fracture (Dr. Romero) XR PELVIS AND HIP 2 VIEWS LEFT Routine 01/28/2018 9:11 AM EDT Closed displaced fracture of posterior wall of left acetabulum, initial encounter documented in this encounter Results * XR Wrist Complete Min 3 views Right (Generic) (01/28/2018 9:11 AM EDT) Anatomical Region Laterality Modality Right Digital Radiogra phy Impressions 01/28/2018 9:50 AM EDT Right wrist: Unchanged alignment and unchanged radiographic appearance of distal radial fracture after ORIF without evidence of complication. Right knee: Unchanged alignment and unchanged radiographic appearance of ??tibial plateau fracture after ORIF without evidence of complication. Narrative 01/28/2018 9:50 AM EDT EXAMINATION: XR WRIST COMPLETE MIN 3 VIEWS RIGHT (GENERIC), XR KNEE 1-2 VIEWS RIGHT (GENERIC) CLINICAL HISTORY: Status post open reduction and internal fixation of a right distal radial fracture and open reduction and internal fixation of a right tibial plateau fracture; assess status of healing/hardware TECHNIQUE: Frontal, lateral, and oblique radiographs of the right wrist were obtained. Frontal and crosstable lateral radiographs of the right knee were obtained. ?? COMPARISON: Right wrist radiographs ranging from 12/13/2017 through 01/04/2018. Right knee radiographs ranging from 12/13/2017 through 01/04/2018. Attention is also directed to the 12/14/[address] images. FINDINGS: Right wrist: Overlying cast obscures fine bony detail. There was prior volar ynzpk-zyy-ueypb fixation of the previously described comminuted intra-articular distal radial fracture, in unchanged anatomic alignment, without evidence of complication. The fracture lines remain partly visible, without definite interval change. Right knee: There was prior xkarp-cos-ivmfr fixation of the previously described Schatzker type II tibial plateau fracture, in unchanged anatomic alignment. No significant suprapatellar knee joint effusion. Only small portions of the fracture lines are visible, similar to on prior exam. Procedure Note Anisa Briscoe MD - 01/28/2018 EXAMINATION: XR WRIST COMPLETE MIN 3 VIEWS RIGHT (GENERIC), XR KNEE 1-2VIEWS RIGHT (GENERIC) CLINICAL HISTORY: Status post open reduction and internal fixation of aright distal radial fracture and open reduction and internal fixation of aright tibial plateau fracture; assess status of healing/hardware TECHNIQUE: Frontal, lateral, and oblique radiographs of the right wrist wereobtained. Frontal and crosstable lateral radiographs of the right knee wereobtained. COMPARISON: Right wrist radiographs ranging from 12/13/2017 through 01/04/2018. Rightknee radiographs ranging from 12/13/2017 through 01/04/2018. Attention is alsodirected to the 12/14/[address] images. FINDINGS: Right wrist: Overlying cast obscures fine bony detail. There was priorvolar npgsy-ztt-tfque fixation of the previously described comminutedintra-articular distal radial fracture, in unchanged anatomic alignment, without evidenceof complication. The fracture lines remain partly visible, without definite interval change. Right knee: There was prior kpogj-dps-snolt fixation of the previouslydescribed Schatzker type II tibial plateau fracture, in unchanged anatomicalignment. No significant suprapatellar knee joint effusion. Only small portions ofthe fracture lines are visible, similar to on prior exam. IMPRESSION Right wrist: Unchanged alignment and unchanged radiographic appearance ofdistal radial fracture after ORIF without evidence of complication. Right knee: Unchanged alignment and unchanged radiographic appearance oftibial plateau fracture after ORIF without evidence of complication. Reinaldo Romero MD IMG DX ORDERABLES * XR Knee 1-2 Views Right (Generic) (01/28/2018 9:11 AM EDT) Anatomical Region Laterality Modality Knee Right Digital Radiogra phy Impressions 01/28/2018 9:50 AM EDT Right wrist: Unchanged alignment and unchanged radiographic appearance of distal radial fracture after ORIF without evidence of complication. Right knee: Unchanged alignment and unchanged radiographic appearance of ??tibial plateau fracture after ORIF without evidence of complication. Narrative 01/28/2018 9:50 AM EDT EXAMINATION: XR WRIST COMPLETE MIN 3 VIEWS RIGHT (GENERIC), XR KNEE 1-2 VIEWS RIGHT (GENERIC) CLINICAL HISTORY: Status post open reduction and internal fixation of a right distal radial fracture and open reduction and internal fixation of a right tibial plateau fracture; assess status of healing/hardware TECHNIQUE: Frontal, lateral, and oblique radiographs of the right wrist were obtained. Frontal and crosstable lateral radiographs of the right knee were obtained. ?? COMPARISON: Right wrist radiographs ranging from 12/13/2017 through 01/04/2018. Right knee radiographs ranging from 12/13/2017 through 01/04/2018. Attention is also directed to the 12/14/[address] images. FINDINGS: Right wrist: Overlying cast obscures fine bony detail. There was prior volar dqeck-dvv-geuxh fixation of the previously described comminuted intra-articular distal radial fracture, in unchanged anatomic alignment, without evidence of complication. The fracture lines remain partly visible, without definite interval change. Right knee: There was prior zeuql-gfi-vpppk fixation of the previously described Schatzker type II tibial plateau fracture, in unchanged anatomic alignment. No significant suprapatellar knee joint effusion. Only small portions of the fracture lines are visible, similar to on prior exam. Procedure Note Anisa Briscoe MD - 01/28/2018 EXAMINATION: XR WRIST COMPLETE MIN 3 VIEWS RIGHT (GENERIC), XR KNEE 1-2VIEWS RIGHT (GENERIC) CLINICAL HISTORY: Status post open reduction and internal fixation of aright distal radial fracture and open reduction and internal fixation of aright tibial plateau fracture; assess status of healing/hardware TECHNIQUE: Frontal, lateral, and oblique radiographs of the right wrist wereobtained. Frontal and crosstable lateral radiographs of the right knee wereobtained. COMPARISON: Right wrist radiographs ranging from 12/13/2017 through 01/04/2018. Rightknee radiographs ranging from 12/13/2017 through 01/04/2018. Attention is alsodirected to the 12/14/[address] images. FINDINGS: Right wrist: Overlying cast obscures fine bony detail. There was priorvolar ztfqg-nbf-nikkl fixation of the previously described comminutedintra-articular distal radial fracture, in unchanged anatomic alignment, without evidenceof complication. The fracture lines remain partly visible, without definite interval change. Right knee: There was prior lzwng-eih-rziap fixation of the previouslydescribed Schatzker type II tibial plateau fracture, in unchanged anatomicalignment. No significant suprapatellar knee joint effusion. Only small portions ofthe fracture lines are visible, similar to on prior exam. IMPRESSION Right wrist: Unchanged alignment and unchanged radiographic appearance ofdistal radial fracture after ORIF without evidence of complication. Right knee: Unchanged alignment and unchanged radiographic appearance oftibial plateau fracture after ORIF without evidence of complication. Reinaldo Romero MD IMG DX ORDERABLES * XR Pelvis w AP & Lat Hip Left (01/28/2018 9:11 AM EDT) Anatomical Region Laterality Modality Pelvis, Hip Left Digital Radiogra phy Impressions 01/28/2018 9:46 AM EDT No significant interval change. Narrative 01/28/2018 9:46 AM EDT EXAMINATION: XR PELVIS W AP AND LAT HIP LEFT CLINICAL HISTORY: check status of healing/hardware TECHNIQUE: AP view of the pelvis and 2 views of the left hip COMPARISON: 01/04/2018 FINDINGS: Plate and screw fixation of the patient's left acetabulum is unchanged. At the left hip no joint space narrowing is identified. No bone resorption or other evidence of inflammation is seen. Procedure Note Sophia Erickson MD - 01/28/2018 EXAMINATION: XR PELVIS W AP AND LAT HIP LEFT CLINICAL HISTORY: check status of healing/hardware TECHNIQUE: AP view of the pelvis and 2 views of the left hip COMPARISON: 01/04/2018 FINDINGS: Plate and screw fixation of the patient's left acetabulum is unchanged. Atthe left hip no joint space narrowing is identified. No bone resorption orother evidence of inflammation is seen. IMPRESSION No significant interval change. Reinaldo Romero MD IMG DX ORDERABLES documented in this encounter Visit Diagnoses Diagnosis Closed displaced fracture of posterior wall of left acetabulum, initial encounter Closed fracture of right tibial plateau, initial encounter 12/14/2017 ORIF right distal radius fracture (Dr. Romero) documented in this encounter Care Teams Biomedical Repair Technician Relationship Specialty Start Date End Date Keiko Reddy MD [address] [address] PCP - General Family Medicine 06/18/17 05/15/18 documented as of this encounter
--- OUTSIDE RECORDS SUMMARY | 2023-12-15 01:16 | XMS_ITS | Encounter Summary ---
Author Organization [facility] Address [facility] [place] [address] Care Team Providers Care Supervisor Cellars Name Role Phone Keiko Reddy MD Primary Care Provider [phone] Reason for Visit * Reason Comments Post Op right tib plateau or if Encounter Details Date Type Department Care Team (Late st Contact Info) Description 01/04/2018 11:00 AM EDT Office [place] [address] Heather Colon PA [facility] [place] [address] Closed fracture of right tibial plateau, initial encounter; 12/14/2017 ORIF right distal radius fracture (Dr. Romero); Closed displaced fracture of posterior wall of left acetabulum, initial encounter Social History Tobacco Use Types Packs/Day [...] Sign Reading Time Taken Comments Blood Pressure 109/69 01/04/2018 10:39 AM EDT Pulse 76 01/04/2018 10:39 AM EDT Temperature 36.7 ??C (98 ??F) 01/04/2018 10:39 AM EDT Respiratory Rate - - Oxygen Saturation - - Inhaled Oxygen Concentration - - Weight - - Height - - Body Mass Index - - documented in this encounter Progress Notes * Alfonso Siu - 01/04/2018 11:00 AM EDT Patient presented in a bivalved short arm cast today. Per request of NIDIA Abad cast was removed and lined to be used as a removable brace. * Heather Colon PA - 01/04/2018 11:00 AM EDT PATIENT NAME: Daphne Pickard AGE: 52 y.o. MR#: [id number] DATE OF VISIT: 01/04/2018 CHIEF COMPLAINT: Hospital check post: Problem List Items Addressed This Visit 12/14/2017 ORIF right tibial plateau fx (Dr. Romero) Relevant Orders Durable Medical Equipment Order Durable Medical Equipment Order Durable Medical Equipment Order 12/14/2017 ORIF right distal radius fracture (Dr. Romero) Relevant Orders Durable Medical Equipment Order Durable Medical Equipment Order Durable Medical Equipment Order 12/20/2017 ORIF left acetabulum for closed fracture of posterior wall of left acetabulum (Dr. Talamantes) Relevant Orders Durable Medical Equipment Order Durable Medical Equipment Order Durable Medical Equipment Order PAST SURGICAL HX: Past Surgical History: Procedure Laterality Date ??? PRG RADEX HIP UNILATERAL WITH PELVIS 1 VIEW Left 12/14/2017 HIP INTRAOP RADIOLOGIC EXAMINATION, UNILATERAL, W PELVIS; 1 VIEW (WRVU 0.18) performed by Reinaldo Romero MD at [facility] MAIN OR ??? PRO COLONOSCOPY, DIAGNOSTIC N/A 06/25/2017 COLONOSCOPY, DIAGNOSTIC performed by Kimani Rojas MD at [facility] ENDOSCOPY ??? PRO OPEN COMPUTER BOOKKEEPER FIX ACETABULAR FX Left 12/20/2017 @OPEN TREATMENT, ACETABULAR FX (WRVU 25.41) performed by Tete Talamantes MD at [facility] MAIN OR ??? PRO OPEN RX DISTAL RADIUS FX, INTRA-ARTICULAR, 3+ FRAG Right 12/14/2017 ORIF DISTAL RADIUS, 3 OR MORE FRAGMENTS (WRVU 14.38) performed by Reinaldo Romero MD at [facility] MAIN OR ??? PRO OPEN TX TIBIAL FRACTURE PROXIMAL UNICONDYLAR Right 12/14/2017 @ORIF TIBIAL PLATEAU (PROXIMAL) UNICONDYLAR (WRVU 13.41) performed by Reinaldo Romero MD at [facility] MAIN OR HISTORY OF PRESENT ILLNESS: Ms. Pickard is a 52 y.o. female who comes into clinic today for [facility]. She comes to clinic today with a note requesting sedation as well as numbing agent for staple removal. She reports a childhood trauma which has caused her to become extremely anxious at the thought of staple removal. Two zuleyka were removed proximally on her lateral side yesterday, however she was not able to tolerate this and the process was discontinued. She is very unhappy with her care at [facility]. She would very much like to go home, however she is waiting for the doctor at [facility] to wrist orders for a hospital bed, wheelchair and a commode. She denies fever, chills, drenching night sweats. Medications: ??? melatonin 1 mg Tablet ??? acetaminophen (TYLENOL) 500 mg Tablet ??? enoxaparin (LOVENOX) 30 mg/0.3 mL Syringe PAST MEDICAL HX: Past Medical History: Diagnosis Date ??? Basal cell carcinoma 2009 Patient Active Problem List Diagnosis Date Noted ??? Postoperative anemia due to acute blood loss 12/21/2017 ??? Trauma 12/14/2017 ??? 12/14/2017 ORIF right tibial plateau fx (Dr. Romero) 12/14/2017 ??? 12/14/2017 ORIF right distal radius fracture (Dr. Romero) 12/14/2017 ??? 12/20/2017 ORIF left acetabulum for closed fracture of posterior wall of left acetabulum (Dr. Talamantes) 12/14/2017 Allergies: Allergies Allergen Reactions ??? Gabapentin Nausea And Vomiting Social history: Social History Substance Use Topics ??? Smoking status: Former Smoker Types: Cigarettes Quit date: 1999 ??? Smokeless tobacco: Never Used ??? Alcohol use 1.2 oz/week 2 Glasses of wine per week Vital signs: Most Recent Vitals: 01/04/18 1039 BP: 109/69 Pulse: 76 Temp: 36.7 ??C (98 ??F) Physical exam: Ms. Pickard is a 52 y.o. female who is alert and oriented. She is in no acute discomfort and is resting comfortably in the exam room. Left lateral thigh incision No no tina-incisional erythema noted No bogginess or drainage to palpation about the incision Skin feels no warmer than surrounding tissue Edges of skin do not pull apart with gentle palpation about the wound Right anterior and lateral knee incision: No no tina-incisional erythema noted No bogginess or drainage to palpation about the incision Skin feels no warmer than surrounding tissue Edges of skin do not pull apart with gentle palpation about the wound Right dorsal wrist incision I am not able to visualize this. There bivalved cast was removed, however at attempt at removing the batting, Daphne became very agitated. She screamed for the cast tech to stop. We discontinued removal. Her cast was lined, she was rewrapped and the bivalved and lined cast was replaced. Fingers are nonedematous, nonerythematous There is some yellow/green bruising on the dorsal aspect of her right hand. Imaging studies: Pelvis: Posterior acetabular fracture with ORIF. No change in alignment since previous imaging. Knee:: Tibial plateau fracture with plate and screw fixation. No change in hardware alignment sinceprevious imaging. Wrist: Distal radius fracture with plate and screw fixation. No change in hardware alignment since previous imaging. Assessment and plan:: 52 y.o. year-old female Status post Right tibial plateau fracture, right distal radius fracture andleft acetabulum fracture with ORIF. Pt seen and plan discussed in conjunction with Dr. Talamantes. We had a long discussion regarding the nature of her healing. We reviewed the XR images which are described above. Clinically she is struggling emotionally with her current residence and care. We were unable to remove zuleyka today as she was unable to tolerate the anticipated pain. She would very much like have these removed under anesthesia. We have discussed this with the Anesthesia team and th jose c can do this in same day. We will be placing orders for this. She would like to be called at [phone] with scheduling information regarding this. She reports that I am able to leave a message on her voice mail. This plan was discussed with the patient and they are in agreement. All of the patient's questions were answered. The patient understand to contact us if they have any other questions or concerns. FU: To be Determined. Heather Colon PA-C The above dictation was made with voice recogonition software documented in this encounter Plan of Treatment Upcoming Encounters Date Type Department Care Team (Late st Contact Info) Description 01/31/2024 9:15 AM EDT Appointment Hematology [place] [address] 01/31/2024 10:20 AM EDT Office Visit [place] [address] Rebecca Small MD [facility] [place] [address] 08/01/2024 11:30 AM EDT Office Visit Dermatology at [place] [address] [place] [address] Phan Engle MD [facility] [place] [address] documented as of this encounter Procedures Procedure Name Priority Date/Time Associated Diagnosis Comments REMOVAL OF SUTURE UNDER ANESTHESIA, OTHER SURGEON, LOWER EXTREMITY Routine 01/04/2018 12:14 PM EDT Closed fracture of right tibial plateau, initial encounter 12/14/2017 ORIF right distal radius fracture (Dr. Romero) Closed displaced fracture of posterior wall of left acetabulum, initial encounter documented in this encounter Visit Diagnoses Diagnosis Closed fracture of right tibial plateau, initial encounter 12/14/2017 ORIF right distal radius fracture (Dr. Romero) Closed displaced fracture of posterior wall of left acetabulum, initial encounter documented in this encounter Care Teams Supervisor Cellars Relationship Specialty Start Date End Date Keiko Reddy MD [address] [address] PCP - General Family Medicine 06/18/17 05/15/18 documented as of this encounter
--- OUTSIDE RECORDS SUMMARY | 2023-12-15 01:16 | XMS_ITS | Encounter Summary ---
Author Organization [facility] Address [facility] [place] [address] Care Team Providers Care Perianesthesia Rn Name Role Phone Disha Hayden Primary Care Provider Encounter Details Date Type Department Care Team (Late st Contact Info) Description 02/09/2018 Orders Only Orthopaedics [place] [phone] Good Aquino MD [facility] [place] [address] Right wrist fracture, with routine healing, subsequent encounter Social History [...] AM EDT Appointment Hematology and [place]cology [place] [phone] 01/31/2024 10:20 AM EDT Office Visit Gynecology [place]cology [place] [phone] Rebecca Small MD [facility] [place] [address] 08/01/2024 11:30 AM EDT Office Visit Dermatology at [facility] [address] [place] [address] Phan Engle MD [facility] [place] [address] documented as of this encounter Visit Diagnoses Diagnosis Right wrist fracture, with routine healing, subsequent encounter documented in this encounter Care Teams Perianesthesia Rn Relationship Specialty Start Date End Date Disha Hayden [address] [place] [address] PCP - General Family Medicine 07/15/23 documented as of this encounter
--- OUTSIDE RECORDS SUMMARY | 2023-12-15 01:16 | XMS_ITS | Encounter Summary ---
Author Organization [facility] Address [facility] [place] [address] Care Team Providers Care Internet Marketing Intern Name Role Phone Keiko Reddy MD Primary Care Provider [phone] Reason for Referral * Home Health Care (Routine) - Specialty Diagnoses / Procedures Referred By Contac t Referred To Contact Unknown Specialty Diagnoses Closed displaced fracture of posterior wall of left acetabulum, initial encounter Closed fracture of right tibial plateau, initial encounter Radius/ulna fracture, right, closed, initial encounter Reinaldo Romero MD [facility] [place] [address] Referral ID Status Reason Start Date Expiration Date V isits Requested Visits Authorized [id number] Continuity of Care 01/12/2018 07/11/2018 1 1 Scheduling Instructions Please contact [phone] option 7 for any questions or concerns related to PT/OT orders. Please leave a detailed message with agency name, callers name and phone number, patients name and date. Our team monitors the line frequently and will call back as soon as they are available. Encounter Details Date Type Department Care Team (Late st Contact Info) Description 01/12/2018 Orders [place] [address] Tre Matos RN Closed displaced fracture of posterior wall of left acetabulum, initial encounter; Closed fracture of right tibial plateau, initial encounter; 12/14/2017 ORIF right distal radius fracture (Dr. Romero) Social History Tobacco Use Types Packs/Day Years [...] AM EDT Appointment Hematology [place] [address] 01/31/2024 10:20 AM EDT Office Visit [place] [address] Rebecca Small MD [facility] [place] [address] 08/01/2024 11:30 AM EDT Office Visit Dermatology at [address] [address] Phan Engle MD [facility] [address] [place] [address] Scheduled Referrals Name Type Priority Associated Diagnoses Orde r Schedule Referral to Home Health - Clinic Use Outpatient Referral Routine Closed displaced fracture of posterior wall of left acetabulum, initial encounter Closed fracture of right tibial plateau, initial encounter 12/14/2017 ORIF right distal radius fracture (Dr. Romero) Ordered: 01/12/2018 documented as of this encounter Visit Diagnoses Diagnosis Closed displaced fracture of posterior wall of left acetabulum, initial encounter Closed fracture of right tibial plateau, initial encounter 12/14/2017 ORIF right distal radius fracture (Dr. Romero) documented in this encounter Care Teams Internet Marketing Intern Relationship Specialty Start Date End Date Keiko Reddy MD [address] [address] PCP - General Family Medicine 06/18/17 05/15/18 documented as of this encounter
--- OUTSIDE RECORDS SUMMARY | 2023-12-15 01:16 | XMS_ITS | Encounter Summary ---
Author Organization [facility] Address [facility] [place] [address] Care Team Providers Care Core Maker Name Role Phone Keiko Reddy MD Primary Care Provider [phone] Encounter Details Date Type Department Care Team (Latest Contact Info) Description 01/04/2018 8:53 AM EDT - 01/04/2018 11:59 PM EDT Hospital Encounter XRay at [address] [address] Reinaldo Romero MD [facility] [place] [address] Discharge Disposition: Home Social History Tobacco Use [...] Sig Dispensed Refills Start Date End Date melatonin 1 mg Tablet Take by mouth. 03/25 enoxaparin (LOVENOX) 30 mg/0.3 mL Syringe Inject 0.3 mLs subcutaneously 2 times daily for 28 days. Take daily for 30 days after surgery. Last day = 01/19/2018. 16.8 mL 12/24/2017 01/21/2018 acetaminophen (TYLENOL) 500 mg Tablet Take 2 [...] AM EDT Appointment H[place]ology [place] [address] 01/31/2024 10:20 AM EDT Office Visit [place] [address] Rebecca Small MD [facility] [address] 08/01/2024 11:30 AM EDT Office Visit Dermatology at [facility] [address] [place] [address] Phan Engle MD [facility] [place] [address] documented as of this encounter Procedures Procedure Name Priority Date/Time Associated Diagnosis Comments XR KNEE AP & LAT RIGHT Routine 01/04/2018 9:39 AM EDT documented in this encounter Results * XR Knee 1-2 Views Right (Generic) (01/04/2018 9:39 AM EDT) Anatomical Region Laterality Modality Knee Right Digital Radiogra phy Impressions 01/04/2018 11:45 AM EDT Unchanged alignment of the uncomplicated cortical [id number] fixation of the tibial plateau fracture without radiographic evidence of hardware complication. I have personally reviewed the image(s) and the residents interpretation and agree with the findings, Anisa Briscoe at 01/04/2018 11:45 AM Narrative 01/04/2018 11:45 AM EDT EXAMINATION: XR KNEE 1-2 VIEWS RIGHT (GENERIC) CLINICAL HISTORY: Status post open reduction and fixation of a tibial plateau fracture TECHNIQUE: AP and lateral radiographs of the RIGHT knee. COMPARISON: RIGHT knee radiographs dated December 14, 2017. CT of the RIGHT knee dated December 14, 2017. FINDINGS: Please note the lateral radiograph is markedly limited by overlying bracing hardware. Unchanged configuration of the cortical plate and screw fixation of the depressed lateral tibial plateau fracture with mormonism of near-anatomic alignment. No radiographic evidence of hardware complication. The fracture lines remain visible on the AP view. Interval resolution of the postoperative soft tissue air. Procedure Note Anisa Briscoe MD - 01/04/2018 EXAMINATION: XR KNEE 1-2 VIEWS RIGHT (GENERIC) CLINICAL HISTORY: Status post open reduction and fixation of a tibialplateau fracture TECHNIQUE: AP and lateral radiographs of the RIGHT knee. COMPARISON: RIGHT knee radiographs dated December 14, 2017. CT of the RIGHT knee datedDecember 14, 2017. FINDINGS: Please note the lateral radiograph is markedly limited by overlyingbracing hardware. Unchanged configuration of the cortical plate and screw fixation of the depressed lateral tibial plateau fracture with mormonism ofnear-anatomic alignment. No radiographic evidence of hardware complication. The fracturelines remain visible on the AP view. Interval resolution of the postoperative soft tissue air. IMPRESSION Unchanged alignment of the uncomplicated cortical ajvoi-qaj-ilbke fixationof the tibial plateau fracture without radiographic evidence of hardware complication. I have personally reviewed the image(s) and the residents interpretationand agree with the findings, Anisa Briscoe at 01/04/2018 11:45 AM Reinaldo Romero MD IMG DX ORDERABLES documented in this encounter Visit Diagnoses Not on filedocumented in this encounter Care Teams Core Maker Relationship Specialty Start Date End Date Keiko Reddy MD [address] [address] PCP - General Family Medicine 06/18/17 05/15/18 documented as of this encounter
--- OUTSIDE RECORDS SUMMARY | 2023-12-15 01:16 | XMS_ITS | Encounter Summary ---
Author Organization [facility] [place] [address] Care Team Providers Care Drosser Name Role Phone Keiko Reddy MD Primary Care Provider [phone] Reason for Visit * Reason Onset Date Comments Appointment 02/09/2018 Encounter Details Date Type Department Care Team (Late st Contact Info) Description 02/09/2018 Telephone [place] [address] Reinaldo Romero MD [facility] [place] [address] Appointment Social History Tobacco Use Types Packs/Day [...] encounter Miscellaneous Notes * Telephone Encounter - Iraida Kaur I - 02/09/2018 10:55 AM EDT Rescheduled to 9.26.[address] Romero * Telephone Encounter - Grecia Ontiveros - 02/09/2018 9:29 AM EDT LM #1 to call to reschedule currently scheduled 02/18 appointment with Heather Colon to Dr. Romero's clinic on Wednesday, 02/16, per Dr. Romero documented in this encounter Plan of Treatment Upcoming Encounters Date Type Department Care Team (Late st Contact Info) Description 01/31/2024 9:15 AM EDT Appointment Hematology [place] [address] 01/31/2024 10:20 AM EDT Office Visit [place] [address] Rebecca Small MD [facility] [place] [address] 08/01/2024 11:30 AM EDT Office Visit Dermatology at [facility] [address] [place] [address] hPan Engle MD [facility] DR [address] [place] [address] documented as of this encounter Visit Diagnoses Not on filedocumented in this encounter Care Teams Drosser Relationship Specialty Start Date End Date Keiko Reddy MD [address] [address] PCP - General Family Medicine 06/18/17 05/15/18 documented as of this encounter
--- OUTSIDE RECORDS SUMMARY | 2023-12-15 01:16 | XMS_ITS | Encounter Summary ---
Author Organization [facility] Address [facility] [place] [address] Care Team Providers Care Coin Dealer Name Role Phone Keiko Reddy MD Primary Care Provider [phone] Reason for Visit * Auth/Cert Specialty Diagnoses / Procedures Referred By Marie t Referred To Contact Diagnoses sutures and loki in place RUE, LLE Procedures PRO REM SUTURES W ANESTH OTHR SURGEON REMOVAL OF SUTURE UNDER ANESTHESIA, OTHER SURGEON, LOWER EXTREMITY (WRVU 0.86) Referral ID Status Reason Start Date Expiration Date Visits Re quested Visits Authorized [id number] 1 1 Encounter Details Date Type Department Care Team (Late st Contact Info) Description 01/12/2018 3:02 PM EDT Anesthesia [place] [address] Barbara Belle MD [facility] [place] [address] Sissy Wellington MD [facility] [address] Anesthesia Record Procedure Summary Procedure Name Responsible Anesthesiologist Anesthesia Start Time Anesthesia Stop Time REMOVAL OF SUTURE OR LOKI REQUIRING ANESTHESIA, LOWER EXTREMITY (WRVU 1.1) (Leg Upper) Barbara Belle MD 01/12/18 1502 01/12/18 1529 Events Date Time Event Comment 01/12/2018 1448 1457 an catalina now 1501 AN Verify 1502 Start 1502 An Start Data 1504 Anesthesia Ready 1524 an stop data 1528 Recovery or ICU Handoff Awa ent care was transferred to the destination unit staff after review of the patient's medical history, current anesthetic/surgical status and plan, according to the Provider Handoff Checklist. 1529 Stop Meds Name Total Midazolam 2 mg Propofol 150 mg * Agents Name O2 Air N2O O2 Auxiliary Flowmeter 1 * Blood No blood administrations on file. Lines, Drains, and Airways Type Details Placement Removal Incision 12/14/17; knee; 01/19/22 (LDA cleanup utility RA#[id number]); 1715 (LDA cleanup utility RA#[id number]) 12/14/17 0000 by Babs Hernández RN 01/19/22 1715 by Harsha Simon Incision 12/14/17; wrist; 01/19/22 (LDA cleanup utility RA#[id number]); 1715 (LDA cleanup utility RA#[id number]) 12/14/17 0000 by Babs Hernández RN 01/19/22 1715 by Harsha Simon Incision 12/20/17; hip; 01/19 (LDA cleanup utility RA#[id number]); 1715 (LDA cleanup utility RA#[id number]) 12/20/17 0000 by Rose Mary Teixeira RN 01/19/22 1715 by Harsha Simon Urethral Catheter 12/21/17; 2307; Acut e urinary retention; indwelling double lumen catheter; 100% silicone; 14; inserted at this facility; 2 (HAYLEY Lema); 10; 10; none; drainage bag to dependent drainage; 04/02/22; 0658 12/21/17 2307 by Cary Urrutia RN 04/02/22 0658 by Ashley Haines, RN (RETIRED) Peripheral IV Line - Single Lumen 01/12/18; 1439; median cubital vein (antecubital fossa), left; 20 gauge; distraction, intradermal injection, tolerated well; 0; 01/12/18; 1740 01/12/18 1439 by Thuy Braga RN 01/12/18 1740 by Modesta Jacobsen RN documented in this encounter Social History Tobacco [...] OR Notes * Anesthesia Postprocedure Evaluation - Sissy Wellington - 01/12/2018 3:34 PM EDT [facility] Department of Anesthesiology Post-procedure Note Patient: Daphne Pickard Procedure Summary Date Anesthesia Start Anesthesia Stop Room / Location 01/12/18 1502 1529 [facility] OR [facility] MAIN OR Procedure Diagnosis Surgeon Responsible Provider REMOVAL OF SUTURE UNDER ANESTHESIA, OTHER SURGEON, LOWER EXTREMITY (WRVU 0.86) (N/A Leg Upper) Closed displaced fracture of posterior wall of left acetabulum, initial encounter; Radius/ulna fracture,right, closed, initial encounter; Closed fracture of right tibial plateau, initial encounter (sutures and loki in place ROGER SOTOMAYOR) Reinaldo Romero MD Clark, Cantwell, MD All Anesthesia Providers: Anesthesiologist: Barbara Belle MD Picker Operator: Sissy Wellington MD Most Recent Vitals: 01/12/18 1526 BP: Pulse: Resp: (P) 16 Temp: (P) 36.9 ??C (98.4 ??F) SpO2: Pain (P) 0 (01/12/18 1526) Patient Location: PACU/[facility] Level of Consciousness: Awake and Alert Pain Management: Satisfactory Analgesia PONV: None Cardiovascular Status: At Baseline Respiratory Status: Stable Respiratory Status and Supplemental O2 (NC or FM) Postoperative Fluid Status: Possible Anesthetic Complications: NONE apparent at time of evaluation Final Primary Anesthesia Type: Comments: * Anesthesia Preprocedure Evaluation - Barbara Belle - 01/11/2018 3:51 PM EDT Pre-Anesthesia Evaluation for: Daphne Pickard a 52 y.o. female. Procedure(s): REMOVAL OF SUTURE UNDER ANESTHESIA, OTHER SURGEON, LOWER EXTREMITY (WRVU 0.86) Patient Active Problem List Diagnosis ??? Postoperative anemia due to acute blood loss ??? Trauma ??? 12/14/2017 ORIF right tibial plateau fx (Dr. Romero) ??? 12/14/2017 ORIF right distal radius fracture (Dr. Romero) ??? 12/20/2017 ORIF left acetabulum for closed fracture of posterior wall of left acetabulum (Dr. Talamantes) Past Medical History: Diagnosis Date ??? Basal cell carcinoma 2010 Past Surgical History: Procedure Laterality Date ??? PRG RADEX HIP UNILATERAL WITH PELVIS 1 VIEW Left 12/14/2017 HIP INTRAOP RADIOLOGIC EXAMINATION, UNILATERAL, W PELVIS; 1 VIEW (WRVU 0.18) performed by Reinaldo Romero MD at [facility] MAIN OR ??? PRO COLONOSCOPY, DIAGNOSTIC N/A 06/25/2017 COLONOSCOPY, DIAGNOSTIC performed by Kimani Rojas MD at [facility] ENDOSCOPY ??? PRO OPEN NON DESTRUCTIVE EVALUATION SPECIALIST FIX ACETABULAR FX Left 12/20/2017 @OPEN TREATMENT, ACETABULAR FX (WRVU 25.41) performed by Tete Talamantes MD at [facility] MAIN OR ??? PRO OPEN RX DISTAL RADIUS FX, INTRA-ARTICULAR, 3+ FRAG Right 12/14/2017 ORIF DISTAL RADIUS, 3 OR MORE FRAGMENTS (WRVU 14.38) performed by Reinaldo Romero MD at [facility] OR ??? PRO OPEN TX TIBIAL FRACTURE PROXIMAL UNICONDYLAR Right 12/14/2017 @ORIF TIBIAL PLATEAU (PROXIMAL) UNICONDYLAR (WRVU 13.41) performed by Reinaldo Romero MD at [facility] OR Social History Substance Use Topics ??? Smoking status: Former Smoker Types: Cigarettes Quit date: 1999 ??? Smokeless tobacco: Never Used ??? Alcohol use 1.2 oz/week 2 Glasses of wine per week History Drug Use ??? Yes ??? Special: Marijuana Comment: infrequent Allergies Allergen Reactions ??? Gabapentin Nausea And Vomiting Medications: MAR and/or home medications have been reviewed. Physical Exam: There were no vitals filed for this visit. There is no height or weight on file to calculate BMI. Airway Assessment: Mallampati: I TM distance: >3 FB Neck ROM: full Cardiovascular Assessment: Pulmonary Assessment: Dental Assessment: - normal exam Misc Assessment: IV access: Peripheral line Anesthesia Plan: ASA 2 with a(n) intravenous induction Preliminary Note 52 y.o., 74 kg female with RUE, RLE, & LLE sutures presenting for suture removal under anesthesia with Dr. Romero [facility] significant for - fall from horse resulting in right tibial plateau fracture, right distal radius fracture and leftacetabulum fracture, now s/p ORIF. She was unable to tolerate suture removal in clinic d/t h/o childhood trauma resulting in anxiety about suture/staple removal. Anesthetic hx: No reported prior complications with anesthesia Airway hx: 12/14/2017 - easy MV, intubated with video scope 12/20/2017 - easy MV, gr 1 mac 3 Lab Results Component Value Date HGB 9.1 (L) 12/22/2017 PLATELET 309 12/22/2017 INR 1.0 12/14/2017 NA 135 12/22/2017 K 4.0 12/22/2017 CREATININE 0.73 12/22/2017 12/20/17 12/14/17 0808 0030 ABORH A Neg A Neg Allergies: -- Gabapentin -- Nausea And Vomiting NPO Status: Appropriate Anesthetic Plan: MAC Adequate IV access Region - Other Informed Consent: Anesthetic plan and risks discussed with patient. Plan discussed with resident. PAT Staff Note documented in this encounter Plan of Treatment Upcoming Encounters Date Type Department Care Team (Late st Contact Info) Description 01/31/2024 9:15 AM EDT Appointment [place] [address] 01/31/2024 10:20 AM EDT Office Visit [place] [address] Rebecca Small MD [facility] [place] [address] 08/01/2024 11:30 AM EDT Office Visit Dermatology at [facility] [address] [place] [address] Phan Engle MD [facility] [address] [place] [address] documented as of this encounter Visit Diagnoses Not on filedocumented in this encounter Administered Medications Inactive Administered Medications - up to 3 most recent administrations Medication Order MAR Action Action Date Dose Rate Site midazolam (PF) (VERSED) 1 mg/mL multi-dose injection PRN, Starting on Wed01/12/18 at 1459, Until Wed01/12/18 at 1534, Sleep, Anesthesia Intra-op, Routine Given 01/12/2018 2:59 PM EDT 2 mg propofol (DIPRIVAN) 10 mg/mL bolus injection (Anesthesia) PRN, Starting on Wed01/12/18 at 1502, Until Wed01/12/18 at 1534, Anesthesia Intra-op Given 01/12/2018 3:19 PM EDT 50 mg Given 01/12/2018 3:10 PM EDT 50 mg Given 01/12/2018 3:02 PM EDT 50 mg documented in this encounter Care Teams Coin Dealer Relationship Specialty Start Date End Date Keiko Reddy MD [address] [place] [id number] PCP - General Family Medicine 06/18/17 05/15/18 documented as of this encounter
--- OUTSIDE RECORDS SUMMARY | 2023-12-15 01:16 | XMS_ITS | Encounter Summary ---
Author Organization [facility] Address [facility] [place] [address] Care Team Providers Care E Learning Developer Name Role Phone Keiko Reddy MD Primary Care Provider [phone] Reason for Visit * Reason Onset Date Comments Post Procedure Call 01/06/2018 Encounter Details Date Type Department Care Team (Late st Contact Info) Description 01/06/2018 [place]phone [place] [phone] Heather Colon PA [facility] DR [place] [address] Post Procedure Call Social History Tobacco Use Types Packs/Day Years [...] * Telephone Encounter - Grecia Ontiveros - 01/07/2018 12:28 PM EDT Rerouting to the OR schedulers for scheduling * Telephone Encounter - Deborah Nunez - 01/06/2018 1:46 PM EDT When was your procedure? Right tibial plateau fx Left posterior wall acetabulum fx Right distal radius fx Who was your surgeon? Heather- wrist and knee Gitjan- hip What procedure did you have done? ORIF TIBIAL PLATEAU (PROXIMAL) UNICONDYLAR ORIF DISTAL RADIUS, 3 OR MORE FRAGMENTS MODIFIER VARIABLE ANGLE DISTAL RADIUS SYNTHES MODIFIER, 3.5 VA PROXIMAL TIBIAL PLATES, SYNTHES HIP INTRAOP RADIOLOGIC EXAMINATION, UNILATERAL, W PELVIS; OPEN TREATMENT, ACETABULAR FX (Left) MODIFIER LOCKING SMALL FRAGMENT SYNTHES (Left) MODIFIER PELVIC RECONSTRUCTION PLATE SYNTHES (Left) What is the question you would like to ask the nurse? Post Op care for incisions, when can the zuleyka be removed, patient requesting to have sedated staple removal. Best number to reach you [phone] documented in this encounter Plan of Treatment Upcoming Encounters Date Type Department Care Team (Late st Contact Info) Description 01/31/2024 9:15 AM EDT Appointment H[place]ology [place] [address] 01/31/2024 10:20 AM EDT Office Visit [place] [address] Rebecca Small MD [facility] DR [place] [address] 08/01/2024 11:30 AM EDT Office Visit Dermatology at [facility] [address] [place] [address] Phan Engle MD [facility] DR JESS HERNAN[place] [address] documented as of this encounter Visit Diagnoses Not on filedocumented in this encounter Care Teams E Learning Developer Relationship Specialty Start Date End Date Keiko Reddy MD [address] [address] PCP - General Family Medicine 06/18/17 05/15/18 documented as of this encounter
--- OUTSIDE RECORDS SUMMARY | 2023-12-15 01:16 | XMS_ITS | Encounter Summary ---
[place] [address] Care Team Providers Care Wellness Assistant Name Role Phone Keiko Reddy MD Primary Care Provider [phone] Encounter Details Date Type Department Care Team (Late st Contact Info) Description 01/14/2018 Telephone [place] [phone] Marion Hawk, RN Social History Tobacco Use Types Packs/Day [...] encounter Miscellaneous Notes * Telephone Encounter - Marion Hawk RN - 01/14/2018 9:40 AM EDT 12/14/2017 ORIF right tibial plateau fx (Dr. Romero) 12/14/2017 ORIF right distal radius fracture (Dr. Romero) 12/20/2017 ORIF left acetabulum for closed fracture of posterior wall of left acetabulum (Dr. Talamantes) Call back to the patient in regards to the pain medication request ( oxycodone 5 mg) left on the prescription line. Patient currently does not take opioid pain medication.Patient reports she still has pain, especially right wrist, going up to 7/10, especially at night time. She continues Acetaminophen 325 mg, 2 tablets every 6 hours, reports it does not help with the pain. Patient reports that [facility] did not prescribe her any medication to go home with, she was discharged on the 01/07/2018. She had staple removal under anesthesia perfored by Dr. Romero on 01/12, was not prescribed any opioid pain medication at this time. Patient denies any fevers, chills erythema, drainage, increased swelling, numbness, tingling, has a dressing on her right wrist that is CDI. She requests to review her pain medication request. Query performed today. Last prescription: oxycodone 5 mg tablets, 60 tablets 12/27 from [facility]. Patient reports those were provided while she was at the rehabilitation facility, she did not go home with this prescription. Next visit: 01/28 hospital check with NIDIA Freeman documented in this encounter Plan of Treatment Upcoming Encounters Date Type Department Care Team (Late st Contact Info) Description 01/31/2024 9:15 AM EDT Appointment Hematology [place] [address] 01/31/2024 10:20 AM EDT Office Visit [place] [address] Rebecca Small MD [facility] [place] [address] 08/01/2024 11:30 AM EDT Office Visit Dermatology at [address] [address] Phan Engle MD [facility] DR JESS HERNAN[place] [address] documented as of this encounter Visit Diagnoses Not on filedocumented in this encounter Care Teams Wellness Assistant Relationship Specialty Start Date End Date Keiko Reddy MD [address] [address] PCP - General Family Medicine 06/18/17 05/15/18 documented as of this encounter
--- OUTSIDE RECORDS SUMMARY | 2023-12-15 01:16 | XMS_ITS | Encounter Summary ---
Author Organization [facility] Address [facility] [place] [address] Care Team Providers Care Personal Vehicle Advisor Name Role Phone Keiko Reddy MD Primary Care Provider [phone] Reason for Visit * Auth/Cert Specialty Diagnoses / Procedures Referred By Marie t Referred To Contact Diagnoses sutures and loki in place RUE, LLE Procedures PRO REM SUTURES W ANESTH OTHR SURGEON REMOVAL OF SUTURE UNDER ANESTHESIA, OTHER SURGEON, LOWER EXTREMITY (WRVU 0.86) Referral ID Status Reason Start Date Expiration Date Visits Re quested Visits Authorized [id number] 1 1 Encounter Details Date Type Department Care Team (Late st Contact Info) Description 01/12/2018 1:28 PM EDT - 01/12/2018 2:06 PM EDT Surgery [place] [address] Reinaldo Romero MD [facility] [place] [address] REMOVAL OF SUTURE OR LOKI REQUIRING ANESTHESIA, LOWER EXTREMITY (WRVU 1.1) Social History Tobacco Use Types Packs/Day Years [...] file documented as of this encounter Discharge Instructions * Patient Instructions* Peter Dueñas MD - 01/12/2018 3:41 PM EDT Orthopaedic Surgery Discharge Instructions Procedure: Removal of loki from left hip, right leg. Activity level: No change from prior. Maintain your current restrictions. Diet: You may return to your usual diet, but increase your fluids and fiber intake to keep you hydrated and your bowels soft. To help with wound healing increase your intake of high protein foods andfluids. Driving: None until you are cleared to do so by your Orthopedic surgeon. You should not drive whileyou are on narcotic pain meds as they can affect your judgment and reaction time. Call your surgeonwith any questions/concerns. Medications: Continue your normal medications. Shower/Bath: You may shower BUT use a waterproof dressing (plastic bag taped at the top) to cover the [place] brace. DO NOT submerge the wound. Remember you MUST to observe your weight bearing statusand activity limitations when you shower so use a chair or bench for balance if you are unable to safely stand. A sponge bath may be easier. Wound Care: 1. The loki in your right leg and left hip were removed today. Steri-strips were placed over theincisions followed by Mepilex dressings. You may remove the mepilex dressings and leave the incisions open to air or keep them covered to protect the incision from clothing - it is up to you. Please leave the thin paper strips (steri-strips) in place until they fall off on their own. 2. The sutures in your right wrist will absorb on their own. Call your doctor ([phone]) if you develop: 1. Fever greater than 100.5 2. Severe nausea or vomiting 3. Increasing pain that is not controlled by pain medications 4. Increasing redness, swelling, or drainage from incisions 5. Change in sensation Future Appointments Date Time Provider Department Center 01/28/2018 9:30 AM Jed Her PA [facility] [address] [place] [address] CLIN If you have questions or concerns: Wednesday through Wednesday, 8 AM - 5 PM, please call Reinaldo Romero MD's office at . If it is after 5 PM or on the weekend, please call and ask to speak with the Orthopedic resident on-call. documented in this encounter Medications at Time [...] 12/24/2017 04/02/2022 documented as of this encounter Progress Notes * Modesta Jacobsen RN - 01/12/2018 5:42 PM EDT Arrived SDP A, O, x 4. Vital signs stable. Many questions, so ortho resident paged to answer them for her. Able to transfer to bariatric commode to void. Discharge instructions reviewed with patient and S/O. Discharged via w/c with s/o. documented in this encounter H&P Notes * Peter Dueñas MD - 01/12/2018 2:54 PM EDT 24-Hour Pre-Operative H&P Update Daphne Pickard [id number] Patient seen in pre-op holding area today. There are no clinically significant changes to the patient's estelle since the original H&P. Patient denies any recent fevers or chills. The patient is ready to proceed with the planned surgical procedure today. Surgical consent form reviewed. Operative extremity marked. All questions sought and answered. Peter Dueñas MD Orthopaedic Surgery PGY3 Associated attestation - Reinaldo Romero MD - 01/13/2018 10:26 AM EDT I saw and evaluated the patient preoperatively and agree with Dr. Kimble's note. She is here today for staple removal and because of her significant posttraumatic stress disorder she was unable to have this performed in the office so we will be doing this under anesthesia in the operating room. Risks and benefits discussed and patient signed informed consent. documented in this encounter Miscellaneous Notes * Op Note - Peter Dueñas MD - 01/12/2018 5:42 PM EDT [facility] Operative Note Patient Name: Daphne Pickard : [id number] MR#: [id number] Case Date: 01/12/2018 Surgeon: Surgeon(s) and Role: * Reinaldo Romero MD - Primary * Peter Dueñas MD - Resident-Surgeon Dread Preoperative diagnosis: sutures and loki in place RLE, LLE Postoperative diagnosis: sutures and loki in place RLE, LLE Procedure(s) (LRB): REMOVAL OF SUTURE UNDER ANESTHESIA, OTHER SURGEON, LOWER EXTREMITY (WRVU 0.86) (N/A) Findings: Intact loki over two right lower extremity incisions, intact loki over one left lower extremity incision - all removed without complication. Steri-strips and mepilex dressings applied. Anesthesia: Anesthesia type not filed in the log. Estimated Blood Loss: None. Specimens removed during surgery: None Drains: N/A Surgical Closure: No incisions made - previous incisions were closed. Disposition: awakened from sedation and taken to the recovery room in a stable condition, having suffered no apparent untoward event. ?? Condition: doing well without problems (Please see the Surgical Encounter Summary for any Implant and Specimen details pertinent to this patient.) HPI/Surgical Indications: Daphne Pickard is a 52 year old female who presented to the [facility] Emergency Department on 12/14/17or trauma evaluation after sustaining multiple injuries as a result of falling off of a horse. Orthopaedic injuries identified were a right distal radius fracture, right tibial plateau fracture, james left posterior wall acetabular fracture. The patient opted to pursue operative management of these injuries and underwent open reduction internal fixation of the right distal radius and right tibial plateau on 12/14/17 and open reduction internal fixation of the left acetabulum on 12/20/17. She wasunable to tolerate stpale removal in the clinic on 01/04/18 and reports history of childhood trauma resulting in anxiety around staple removal. She presents to [facility] today for removal of loki from her lower extremity incisions under sedation. A consent form for the procedure was reviewed and signed. Procedure Description: The patient was identified in the preoperative holding area by name and date of . The proposedsites and procedures were confirmed with the patient and against the consent form. A green selawik was then placed on the operative extremities. The patient was brought back to the operative suite. She remained in the hospital stretcher in the supine position. All bony prominences were well padded. A timeout was held according to [facility] universal protocol and all members of the team agreed to proceed. Sedation was provided by the anesthesia provider. We first directed our attention to the right forearm. The removable forearm cast was removed in order to inspect the wound on the volar distal forearm. The wound was well-appearing with on drainage, swelling, or erythema. The Prineo skin closure system was still in place. There were no sutures or loki to remove since the wound was closed with monocryl suture. The right forearm cast was put back in place. We next directed our attention to the right lower leg wound from the tibial plateau fixation. The [place] brace, locked in extension, was opened and removed. There were loki present both medially and laterally on the lower leg. These incisions were prepped with Betadine and the loki were thenremoved with a staple removal instrument. The incisions were healing well with no evidence of infection or dehiscence. Once all right lower extremity loki were removed we replaced the Bishnu brace and locked in extension. We then turned our attention to the left hip. The loki over the incision from the acetabular fixation were prepped with Betadine prior to removal with a staple remover. The incision looked to be healing well with no drainage. Once all loki had been removed, the lower extremity incisions were cleaned with sterile normal saline, dried, and had steri-strips applied. Mepilex dressings were then placed over the incisions. At this point the patient was aroused from sedation and taken to the post- operative area having suffered no apparent untoward event. Infection Bundle used? N/A Associated attestation - Reinaldo Romero MD - 01/13/2018 4:27 PM EDT Attestation: Case Date: 01/12/2018 I was present and I participated during the entire procedure (does not need to include opening and closing). Reinaldo Romero MD 01/13/2018 * Brief Op Note - Peter Dueñas MD - 01/12/2018 3:35 PM EDT Brief Operative Note Patient Name: Daphne Pickard : [id number] MR#: [id number] Case Date: 01/12/2018 Surgeon: Surgeon(s) and Role: * Reinaldo Romero MD - Primary * Peter Dueñas MD - Resident-Surgeon Dread Preoperative diagnosis: sutures and loki in place RLE, LLE Postoperative diagnosis: sutures and loki in place RLE, LLE Procedure(s) (LRB): REMOVAL OF SUTURE UNDER ANESTHESIA, OTHER SURGEON, LOWER EXTREMITY (WRVU 0.86) (N/A) Anesthesia: Anesthesia type not filed in the log. Findings: Intact loki over two right lower extremity incisions, intact loki over one left lower extremity incision - all removed without complication. Steri-strips and mepilex dressings applied. Complications: None. Estimated Blood Loss: None. Specimens removed during surgery: None Fluids: Intraprocedure Crystalloid Total None PRBCs: none (See Anesthesia Record/Report for Other Blood Products) Urine Output: (no urine output recorded) Drains: N/A. Disposition: awakened from sedation and taken to the recovery room in a stable condition, having suffered no apparent untoward event. Condition: doing well without problems (Please see the Surgical Encounter Summary for any Implant and Specimen details pertinent to this patient.) Infection Bundle used? N/A documented in this encounter Plan of Treatment Upcoming Encounters Date Type Department Care Team (Late st Contact Info) Description 01/31/2024 9:15 AM EDT Appointment Hematology [place] [address] 01/31/2024 10:20 AM EDT Office Visit [place] [address] Rebecca Small MD [facility] [place] [address] 08/01/2024 11:30 AM EDT Office Visit Dermatology at [place] [address] [place] [address] Phan Engle MD [facility] DR [place] [address] documented as of this encounter Procedures Procedure Name Priority Date/Time Associated Diagnosis Comments REMOVAL OF SUTURE OR LOKI REQUIRING ANESTHESIA, LOWER EXTREMITY (WRVU 1.1) Yes 01/12/2018 3:01 PM EDT Closed displaced fracture of posterior wall of left acetabulum, initial encounter Radius/ulna fracture, right, closed, initial encounter Closed fracture of right tibial plateau, initial encounter documented in this encounter Visit Diagnoses Diagnosis Closed displaced fracture of posterior wall of left acetabulum, initial encounter Radius/ulna fracture, right, closed, initial encounter Closed fracture of right tibial plateau, initial encounter documented in this encounter Administered Medications Inactive Administered Medications - up to 3 most recent administrations Medication Order MAR Action Action Date Dose Rate Site lactated Ringers infusion 1,000 mL 1,000 mL, at 100 mL/hr, Intravenous, CONTINUOUS, Starting on Wed01/12/18 at 1445, Until Wed01/12/18 at 1741, Day of Surgery (Day of Procedure) New Bag 01/12/2018 2:45 PM EDT 1,000 mLs 100 mL/hr lidocaine (XYLOCAINE) 10 mg/mL (1 %) injection 3 mg 3 mg (0.3 mL), Subcutaneous, ONCE PRN, 1 dose, Starting on Wed01/12/18 at 1422, Until Wed01/12/18 at 1456, for discomfort with PIV insertion, Day of Surgery (Day of Procedure), Routine Given 01/12/2018 2:56 PM EDT 3 mg documented in this encounter Active and Recently Administered Medications Times are shown in EDT. Continuous Medication Order 01/10/2018 01/11/2018 01/12/2018 lactated Ringers infusion 1,000 mL (CANCELED) 1,000 mL, at 100 mL/hr, Intravenous, CONTINUOUS, Starting on Wed01/12/18 at 1445, Until Wed01/12/18 at 1741, Day of Surgery (Day of Procedure) 1445 (New Bag - Prov ider: Thuy Braga, HAYLEY) PRN Medication Order 01/10/2018 01/11/2018 01/12/2018 lidocaine (XYLOCAINE) 10 mg/mL (1 %) injection 3 mg (COMPLETED) 3 mg (0.3 mL), Subcutaneous, ONCE PRN, 1 dose, Starting on Wed01/12/18 at 1422, Until Wed01/12/18 at 1456, for discomfort with PIV insertion, Day of Surgery (Day of Procedure), Routine 1456 (Given - Provid er: Thuy Braga RN) documented in this encounter Care Teams Personal Vehicle Advisor Relationship Specialty Start Date End Date Keiko Reddy MD [address] [address] PCP - General Family Medicine 06/18/17 05/15/18 documented as of this encounter
--- OUTSIDE RECORDS SUMMARY | 2023-12-15 01:16 | XMS_ITS | Encounter Summary ---
Author Organization [facility] Address [facility] [place] [address] Care Team Providers Care White Shoe Examiner Name Role Phone Keiko Reddy MD Primary Care Provider Encounter Details Date Type Department Care Team (Latest Contact Info) Description 02/16/2018 2:29 PM EDT - 02/16/2018 11:59 PM EDT Hospital Encounter XRay at [address] [place] [address] Reinaldo Romero MD [facility] [place] [address] Right medial tibial plateau fracture, closed, with routine healing, subsequent encounter Discharge Disposition: [...] AM EDT Appointment Hematology [place] [address] 01/31/2024 10:20 AM EDT Office Visit [place] [address] Rebecca Small MD [facility] [place] [address] 08/01/2024 11:30 AM EDT Office Visit Dermatology at [address] [address] Phan Engle MD [facility] DR JESS [place] [address] documented as of this encounter Procedures Procedure Name Priority Date/Time Associated Diagnosis Comments XR KNEE AP & LAT RIGHT Routine 02/16/2018 3:03 PM EDT Right medial tibial plateau fracture, closed, with routine healing, subsequent encounter documented in [...] in this encounter Visit Diagnoses Diagnosis Right medial tibial plateau fracture, closed, with routine healing, subsequent encounter documented in this encounter Care Teams White Shoe Examiner Relationship Specialty Start Date End Date Keiko Reddy MD [address] [address] PCP - General Family Medicine 06/18/17 05/15/18 documented as of this encounter
--- OUTSIDE RECORDS SUMMARY | 2023-12-15 01:16 | XMS_ITS | Encounter Summary ---
Author Organization [facility] Address [facility] [place] [address] Care Team Providers Care Marketing Analytics Specialist Name Role Phone Keiko Reddy MD Primary Care Provider [phone] Reason for Referral * Physical Therapy (Routine) - Specialty Diagnoses / Procedures Referred By Contac t Referred To Contact Diagnoses Closed fracture of proximal end of right tibia, unspecified fracture morphology, initial encounter Jed Her PA [facility] [place] [address] Referral ID Status Reason Start Date Expiration Date V isits Requested Visits Authorized [id number] Evaluate and Treat 01/28/2018 07/27/2018 12 12 * Physical Therapy (Routine) - Specialty Diagnoses / Procedures Referred By Contac t Referred To Contact Diagnoses Closed displaced fracture of right acetabulum, unspecified portion of acetabulum, initial encounter Jed Her PA [facility] [place] [address] Referral ID Status Reason Start Date Expiration Date V isits Requested Visits Authorized [id number] Evaluate and Treat 01/28/2018 07/27/2018 12 12 Reason for Visit * Reason Comments Follow Up Surgery Encounter Details Date Type Department Care Team (Late st Contact Info) Description 01/28/2018 9:30 AM EDT Office Visit Orthopaedics at [facility] [place] [address] Jed Her PA [facility] [place] [address] Closed displaced fracture of right acetabulum, unspecified portion of acetabulum, initial encounter; Closed fracture of proximal end of right tibia, unspecified fracture morphology, initial encounter Social History Tobacco Use Types [...] Sign Reading Time Taken Comments Blood Pressure 122/82 01/28/2018 9:25 AM EDT Pulse 80 01/28/2018 9:25 AM EDT Temperature 36.9 ??C (98.4 ??F) 01/28/2018 9:25 AM ED T Respiratory Rate - - Oxygen Saturation - - Inhaled Oxygen Concentration - - Weight - - Height - - Body Mass Index - - documented in this encounter Progress Notes * Jed Her PA - 01/28/2018 9:30 AM EDT Arthroplasty/Orthopaedic History: 1. ORIF for Right distal radius fracture - 12/14/17 - Dr. Romero 2. ORIF for Right proximal tibia fracture - 12/14/17 - Heather 3. ORIF for Right acetabular fracture - 12/14/17 - Heather HPI: Daphne Pickard is a very pleasant 52 y.o. year-old female and is now 7 weeks post procedure.The patient continue to struggle. Pain is controlled with current analgesics. Medication(s) being used: acetaminophen.. Patient describe frustration with her inability to move her joints or weight- bear. She is wheelchair-bound and seen in a [place] brace locked at 0??. Daphne has been discharged home and working with [facility] for home visits. No fevers, chills, nausea, vomiting, or symptoms of infection. She is not taking narcotic pain medicine. ROS: Denies: fever, chills, night sweats, nausea, or vomiting BP 122/82 (BP Location (NBP): Left arm, Patient Position: Sitting, BP Cuff Sizes: Adult (25-34 cm)) Pulse 80 Temp 36.9 ??C (98.4 ??F) Physical Exam: Well-appearing female in no acute distress. Alert and Oriented x 3 and answers all questions appropriately. T he incision is well healed, with no signs of infection over the knee but still healing over lateralthigh. Skin: Hip No drainage, swelling, ecchymosis, or erythema noted on exam Incision appeared dry and well approximated Knee exam: Mild diffuse swelling globally No erythema, ecchymosis or swelling noted No range of motion accessed X-RAYS: IMPRESSION: Wrist Right wrist: Unchanged alignment and unchanged radiographic appearance of distal radial fracture after ORIF without evidence of complication. ?? Right knee: Unchanged alignment and unchanged radiographic appearance of tibial plateau fracture after ORIF without evidence of complication. ??IMPRESSION: Knee Right wrist: Unchanged alignment and unchanged radiographic appearance of distal radial fracture after ORIF without evidence of complication. ?? Right knee: Unchanged alignment and unchanged radiographic appearance of tibial plateau fracture after ORIF without evidence of complication. ?? FINDINGS: Hip Plate and screw fixation of the patient's left acetabulum is unchanged. At the left hip no joint space narrowing is identified. No bone resorption or other evidence of inflammation is seen. ?? Questionnaire Responses: [facility] Surgical Postop Visit 01/04/2018 PROMIS-10 General Health Good PROMIS-10 Quality of Life Good PROMIS-10 Physical Health Good PROMIS-10 Mental Health Very Good PROMIS-10 Social Activity Excellent PROMIS-10 Everyday Activities Not at all PROMIS-10 Pain 0 -No Pain PROMIS-10 Fatigue None PROMIS-10 Social Roles Excellent PROMIS-10 Anxious or Depressed Always PROMIS PHYSICAL HEALTH SCORE 44.9 PROMIS MENTAL HEALTH SCORE 45.8 Problems with surgical incision/wound after surgery No Gone to ER since knee surgery No Admitted to hospital since recent ortho surgery No Additional surgery on same body part No Satisfaction with Treatment Satisfied Choose Same Treatment Again Completely uncertain Employment status before injury Other Returned to previous employment No Spending time in inpatient rehab facility Yes Rate overall condition today 8 No flowsheet data found. No flowsheet data found. ASSESSMENT/PLAN: Ms. Pickard is a 52 y.o. year old female status post left acetabular fracture and right proximal tibia fracture. Doing well postoperatively. Patient will start working on range of motion. We will see her back in 3 weeks for repeat examination. X-rays will be needed at that time. PT order handed for active assisted knee range of motion. Bishnu brace is to be locked at 30-40?? PT order for hip flexion and extension only handed All questions were answered. Signed: NIDIA Gibbs 01/28/2018 documented in this encounter Plan of Treatment Upcoming Encounters Date Type Department Care Team (Late st Contact Info) Description 01/31/2024 9:15 AM EDT Appointment Hematology [place] [address] 01/31/2024 10:20 AM EDT Office Visit [place] [address] Rebecca Small MD [facility] [place] [address] 08/01/2024 11:30 AM EDT Office Visit Dermatology at [address] [address] Phan Engle MD [facility] [place] [address] Scheduled Referrals Name Type Priority Associated Diagnoses Orde r Schedule Referral to Physical Therapy Outpatient Referral Routine Closed displaced fracture of right acetabulum, unspecified portion of acetabulum, initial encounter Ordered: 01/28/2018 Referral to Physical Therapy Outpatient Referral Routine Closed fracture of proximal end of right tibia, unspecified fracture morphology, initial encounter Ordered: 01/28/2018 documented as of this encounter Visit Diagnoses Diagnosis Closed displaced fracture of right acetabulum, unspecified portion of acetabulum, initial encounter Closed fracture of proximal end of right tibia, unspecified fracture morphology, initial encounter documented in this encounter Care Teams Marketing Analytics Specialist Relationship Specialty Start Date End Date Keiko Reddy MD [address] [facility] [address] [place] [address] PCP - General Family Medicine 06/18/17 05/15/18 documented as of this encounter
--- OUTSIDE RECORDS SUMMARY | 2023-12-15 01:16 | XMS_ITS | Encounter Summary ---
Author Organization Formerly [facility] Address [facility] [place] [address] Care Team Providers Care Consumer Lending Manager Name Role Phone Keiko Reddy MD Primary Care Provider [phone] Encounter Details Date Type Department Care Team (Latest Contact Info) Description 01/04/2018 8:50 AM EDT - 01/04/2018 8:52 AM EDT Hospital Encounter XRay at [address] [place] [address] Reinaldo Romero MD [facility] ORTHOP[place]ED[place] [address] Discharge Disposition: Home Social History Tobacco Use [...] Sig Dispensed Refills Start Date End Date enoxaparin (LOVENOX) 30 mg/0.3 mL Syringe Inject [...] EDT Appointment Hematology [place] [address] 01/31/2024 10:20 AM EDT Office Visit Gynecology [place] [address] Rebecca Small MD [facility] G[place]EC[place]IC [place] [address] 08/01/2024 11:30 AM EDT Office Visit Dermatology at [place] [address] [place] [address] Phan Engle MD [facility] DR JESS HERNANDEZ-[place] [address] documented as of this encounter Procedures Procedure Name Priority Date/Time Associated Diagnosis Comments XR PELVIS AND HIP 2 VIEWS LEFT Routine 01/04/2018 9:39 AM EDT documented in this encounter Results * XR Pelvis w AP & Lat Hip Left (01/04/2018 9:39 AM EDT) Anatomical Region Laterality Modality Pelvis, Hip Left Digital Radiogra phy Impressions 01/04/2018 10:32 AM EDT Left acetabular fracture status post open reduction internal fixation. There is no evidence of complication. Narrative 01/04/2018 10:32 AM EDT EXAMINATION: XR PELVIS W AP AND LAT HIP LEFT CLINICAL HISTORY: s/p ORIF acetabulum fx TECHNIQUE: AP pelvis with AP and lateral views of the left hip COMPARISON: 12/20/2017 and 12/14/2017 FINDINGS: Plate and screw fixation of the patient's left acetabulum is unchanged. At the left hip no joint space narrowing is identified. No bone resorption or other evidence of inflammation is seen. Procedure Note Duc Mathew MD - 01/04/2018 EXAMINATION: XR PELVIS W AP AND LAT HIP LEFT CLINICAL HISTORY: s/p ORIF acetabulum fx TECHNIQUE: AP pelvis with AP and lateral views of the left hip COMPARISON: 12/20/2017 and 12/14/2017 FINDINGS: Plate and screw fixation of the patient's left acetabulum is unchanged. Atthe left hip no joint space narrowing is identified. No bone resorption orother evidence of inflammation is seen. IMPRESSION Left acetabular fracture status post open reduction internal fixation.There is no evidence of complication. 10:32 AM Reinaldo Romero MD IMG DX ORDERABLES documented in this encounter Visit Diagnoses Not on filedocumented in this encounter Care Teams Consumer Lending Manager Relationship Specialty Start Date End Date Keiko Reddy MD [address] [place] [id number] PCP - General Family Medicine 06/18/17 05/15/18 documented as of this encounter
--- OUTSIDE RECORDS SUMMARY | 2023-12-15 01:16 | XMS_ITS | Encounter Summary ---
Author Organization [facility] Address [facility] [place] [address] Care Team Providers Care Agricultural Production Engineer Name Role Phone Keiko Reddy MD Primary Care Provider [phone] Reason for Visit * Reason Onset Date Comments Shoulder Pain 02/07/2018 Encounter Details Date Type Department Care Team (Late st Contact Info) Description 02/07/2018 [place] [address] Reinaldo Romero MD [facility] [place] [address] Shoulder Pain Social History Tobacco Use Types Packs/Day Years [...] encounter Miscellaneous Notes * Telephone Encounter - Daija Avila Jillian - 02/07/2018 2:44 PM EDT Received call from Daphne states she began to develop right sided shoulder girdle pain last night. She states she used Flexeril last night with minimal relief, she has been alternating heat with ice and she does feel that the potentially been some relief since this. This is her dominant side although she has not been using it much since her injuries that she is sustained. She states she contacted her primary care doctor is approximately 2 hours away from her and they recommended that she be evaluated for PE. She contact our office to see if we had any other recommendations. She does not have any irregular heartbeat, she does feel somewhat short of breath when she takes a deep inhale as itcauses an increase in pain. Otherwise she is not short of breath. She otherwise feels well with no fevers no other urgent issues or concerns. I reviewed with her that at this time it could potentially be musculoskeletal related her pain that she is having however due to the fact that we cannot ruleout PE over the phone we do recommend evaluation in her emergency department. She has remained somewhat immobile due to her orthopedic issues and thus throughout a heightened concern for DVT or PE. She verbalized agreement and will move forward with further evaluation at her local emergency department. She will contact us back with any other questions or concerns. documented in this encounter Plan of Treatment Upcoming Encounters Date Type Department Care Team (Late st Contact Info) Description 01/31/2024 9:15 AM EDT Appointment Hematology [place] [address] 01/31/2024 10:20 AM EDT Office Visit [place] [address] Rebecca Small MD [facility] [place] [address] 08/01/2024 11:30 AM EDT Office Visit Dermatology at [place] [address] [place] [address] Phan Engle MD [facility] DR J[place] [address] documented as of this encounter Visit Diagnoses Not on filedocumented in this encounter Care Teams Agricultural Production Engineer Relationship Specialty Start Date End Date Keiko Reddy MD [address] [address] PCP - General Family Medicine 06/18/17 05/15/18 documented as of this encounter
--- OUTSIDE RECORDS SUMMARY | 2023-12-15 01:16 | XMS_ITS | Encounter Summary ---
Author Organization [facility] Address [facility] [place] [address] Care Team Providers Care Internal Medicine Nurse Name Role Phone Keiko Reddy MD Primary Care Provider [phone] Encounter Details Date Type Department Care Team (Latest Contact Info) Description 02/16/2018 2:28 PM EDT Hospital Encounter XRay at [address] [place] [address] Reinaldo Romero MD [facility] [place] [address] Closed nondisplaced fracture of left acetabulum with [...] AM EDT Appointment Hematology [place] [address] 01/31/2024 10:20 AM EDT Office Visit [place] [address] Rebecca Small MD [facility] [place] [address] 08/01/2024 11:30 AM EDT Office Visit Dermatology at [facility] [address] [place] [address] Phan Engle MD [facility] [place] [address] documented as of this encounter Procedures Procedure Name Priority Date/Time Associated Diagnosis Comments XR PELVIS AND HIP 2 VIEWS LEFT Routine 02/16/2018 3:03 PM EDT Closed nondisplaced fracture of left acetabulum with [...] encounter documented in this encounter Care Teams Internal Medicine Nurse Relationship Specialty Start Date End Date Keiko Reddy MD [address] [place] [address] PCP - General Family Medicine 06/18/17 05/15/18 documented as of this encounter
--- OUTSIDE RECORDS SUMMARY | 2023-12-15 01:16 | XMS_ITS | Encounter Summary ---
Author Organization [facility] Address [facility] [place] [address] Care Team Providers Care Insurance Claims Supervisor Name Role Phone Keiko Reddy MD Primary Care Provider [phone] Reason for Visit * Reason Onset Date Comments Pre Procedure Call 01/05/2018 Encounter Details Date Type Department Care Team (Late st Contact Info) Description 01/05/2018 Telephone [place] [address] Reinaldo Oh MD [facility] [place] [address] Pre Procedure Call Social History Tobacco Use Types [...] encounter Miscellaneous Notes * Telephone Encounter - Cary Lopez - 01/05/2018 10:01 AM EDT I called and left a message for patient to call [phone] directly and schedule surgery with Dr. OH. documented in this encounter Plan of Treatment Upcoming Encounters Date Type Department Care Team (Late st Contact Info) Description 01/31/2024 9:15 AM EDT Appointment Hematology [place] [address] 01/31/2024 10:20 AM EDT Office Visit [place] [address] Rebecca Small MD [facility] [place] [address] 08/01/2024 11:30 AM EDT Office Visit Dermatology at [facility] [address] [place] [address] Phan Engle MD [facility] [place] [address] documented as of this encounter Visit Diagnoses Not on filedocumented in this encounter Care Teams Insurance Claims Supervisor Relationship Specialty Start Date End Date Keiko Reddy MD [address] [address] PCP - General Family Medicine 06/18/17 05/15/18 documented as of this encounter
--- OUTSIDE RECORDS SUMMARY | 2023-12-15 01:16 | XMS_ITS | Encounter Summary ---
Author Organization [facility] Address [facility] [place] [address] Care Team Providers Care Excellence Leader Name Role Phone Keiko Reddy MD Primary Care Provider [phone] Reason for Visit * Auth/Cert Specialty Diagnoses / Procedures Referred By Marie t Referred To Contact Diagnoses sutures and loki in place RUE, LLE Procedures PRO REM SUTURES W ANESTH OTHR SURGEON REMOVAL OF SUTURE UNDER ANESTHESIA, OTHER SURGEON, LOWER EXTREMITY (WRVU 0.86) Referral ID Status Reason Start Date Expiration Date Visits Re quested Visits Authorized [id number] 1 1 Encounter Details Date Type Department Care Team (Latest Contact Info) Description 01/12/2018 12:01 PM EDT - 01/12/2018 5:42 PM EDT Hospital Encounter [place] [address] [facility] [place] [address] Discharge Disposition: Home Social History Tobacco Use [...] Sign Reading Time Taken Comments Blood Pressure 120/66 01/12/2018 4:15 PM EDT Pulse 72 01/12/2018 2:24 PM EDT Temperature 36.9 ??C (98.4 ??F) 01/12/2018 3:26 PM ED T Respiratory Rate 14 01/12/2018 4:15 PM EDT Oxygen Saturation 97% 01/12/2018 4:15 PM EDT Inhaled Oxygen Concentration - - Weight - - Height - - Body Mass Index - - documented in this encounter Discharge Instructions * [...] taped at the top) to cover the [employer] brace. DO NOT submerge the wound. Remember [...] absorb on their own. Call your doctor ([phone]) if you develop: 1. Fever greater than 100.5 2. Severe nausea or vomiting 3. Increasing pain that is not controlled by pain medications 4. Increasing redness, swelling, or drainage from incisions 5. Change in sensation Future Appointments Date Time Provider Department Center 01/28/2018 9:30 AM Jed Her PA [facility] [address] [place] [address] If you have questions or concerns: Wednesday [...] 24-Hour Pre-Operative H&P Update Daphne Pickard [id number] Patient seen in pre-op holding area today. [...] Dueñas MD - 01/12/2018 5:42 PM EDT [facility] [place] Patient Name: Daphne Pickard : [id number] MR#: [id number] Case Date: 01/12/2018 Surgeon: Surgeon(s) and Role: [...] year old female who presented to the [facility] [place] Department on 12/14/17or trauma evaluation after [...] anxiety around staple removal. She presents to [facility] today for removal of loki from her lower extremity incisions under sedation. A consent form for the procedure was reviewed and signed. Procedure Description: The patient was identified in the preoperative holding area by name and date of . The proposedsites and procedures were confirmed with the patient and against the consent form. A [place] was then placed on the operative extremities. The patient was brought back to the operative suite. She remained in the hospital stretcher in the supine position. All bony prominences were well padded. A timeout was held according to [facility] universal protocol and all members of the [...] wound from the tibial plateau fixation. The Goodyear brace, locked in extension, was opened and removed. There were loki present both medially and laterally on the lower leg. These incisions were prepped with Betadine and the loki were thenremoved with a staple removal instrument. The incisions were healing well with no evidence of infection or dehiscence. Once all right lower extremity loki were removed we replaced the Goodyear brace and locked in extension. We then [...] Operative Note Patient Name: Daphne Pickard : [id number] MR#: [id number] Case Date: 01/12/2018 Surgeon: Surgeon(s) and Role: [...] AM EDT Appointment Hematology [place] [address] 01/31/2024 10:20 AM EDT Office Visit [place] [address] [facility] [place] [address] 08/01/2024 11:30 AM EDT Office Visit Dermatology at [place] [address] [place] [address] [facility] DR JESS [place] [address] documented as of this encounter Procedures Procedure Name Priority Date/Time Associated Diagnosis Comments REMOVAL OF SUTURE OR LOKI REQUIRING ANESTHESIA, LOWER EXTREMITY (WRVU 1.1) Yes 01/12/2018 3:01 PM EDT Closed displaced fracture of posterior wall of left acetabulum, initial encounter Radius/ulna fracture, right, closed, initial encounter Closed fracture of right tibial plateau, initial encounter documented in this encounter Visit Diagnoses Not [...] 1445 (New Bag - Prov ider: Thuy Braga RN) PRN Medication Order 01/10/2018 01/11/2018 01/12/2018 lidocaine (XYLOCAINE) 10 mg/mL (1 %) injection 3 mg (COMPLETED) 3 mg (0.3 mL), Subcutaneous, ONCE PRN, 1 dose, Starting on Wed01/12/18 at 1422, Until Wed01/12/18 at 1456, for discomfort with PIV insertion, Day of Surgery (Day of Procedure), Routine 1456 (Given - Provid er: Thuy Braga, HAYLEY) documented in this encounter Care Teams Excellence Leader Relationship Specialty Start Date End Date Keiko Reddy MD [address] [address] PCP - General Family Medicine 06/18/17 05/15/18 documented as of this encounter
--- OUTSIDE RECORDS SUMMARY | 2023-12-15 01:16 | XMS_ITS | Encounter Summary ---
Author Organization [facility] Address [facility] [place] [address] Care Team Providers Care Checker Bakery Products Name Role Phone Keiko Reddy MD Primary Care Provider [phone] Encounter Details Date Type Department Care Team (Latest Contact Info) Description 01/04/2018 8:53 AM EDT - 01/04/2018 11:59 PM EDT Hospital Encounter XRay at [address] [place] [address] Reinaldo Romero MD [facility] [place]OP[place]ED[place] [address] Discharge Disposition: Home Social History Tobacco Use [...] AM EDT Appointment Hematology [place] [address] 01/31/2024 10:20 AM EDT Office Visit [place] [address] Rebecca Small MD [facility] G[place]EC[place]IC [place] [address] 08/01/2024 11:30 AM EDT Office Visit Dermatology at [facility] [address] [place] [address] Phan Engle MD [facility] DR JESS [place] [address] documented as of this encounter Procedures Procedure Name Priority Date/Time Associated Diagnosis Comments XR WRIST 3 VIEWS RIGHT Routine 01/04/2018 9:39 AM EDT documented in this encounter Results * XR Wrist Complete Min 3 views Right (Generic) (01/04/2018 9:39 AM EDT) Anatomical Region Laterality Modality Right Digital Radiogra phy Impressions 01/04/2018 11:42 AM EDT Unchanged alignment of the volar plate-screw and-fixation of the intra-articular distal radius fracture without radiographic evidence of hardware complication. I have personally reviewed the image(s) and the residents interpretation and agree with the findings, Anisa Briscoe at 01/04/2018 11:42 AM Narrative 01/04/2018 11:42 AM EDT EXAMINATION: XR WRIST COMPLETE MIN 3 VIEWS RIGHT (GENERIC) CLINICAL HISTORY: Status post open reduction and internal fixation of a right distal radius fracture TECHNIQUE: 3 views of the RIGHT wrist. COMPARISON: Multiple prior radiographs of the RIGHT wrist with most recent comparison dated December 14, 2017. FINDINGS: Overlying cast material obscures fine bony detail. Unchanged alignment of the volar plate and screw fixation of the intra-articular distal radius fracture without radiographic evidence of hardware complication. Fracture lines are largely obscured by the hardware, but the visualized portions remain visible. 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 Procedure Note Anisa Briscoe MD - 01/04/2018 EXAMINATION: XR WRIST COMPLETE MIN 3 VIEWS RIGHT (GENERIC) CLINICAL HISTORY: Status post open reduction and internal fixation of aright distal radius fracture TECHNIQUE: 3 views of the RIGHT wrist. COMPARISON: Multiple prior radiographs of the RIGHT wrist with most recent comparisondated December 14, 2017. FINDINGS: Overlying cast material obscures fine bony detail. Unchanged alignment of the volar plate and screw fixation of theintra-articular distal radius fracture without radiographic evidence of hardwarecomplication. Fracture lines are largely obscured by the hardware, but the visualizedportions remain visible. 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 IMPRESSION Unchanged alignment of the volar plate-screw and-fixation of theintra-articular distal radius fracture without radiographic evidence of hardwarecomplication. I have personally reviewed the image(s) and the residents interpretationand agree with the findings, Anisa Briscoe at 01/04/2018 11:42 AM Reinaldo Romero MD IMG DX ORDERABLES documented in this encounter Visit Diagnoses Not on filedocumented in this encounter Care Teams Checker Bakery Products Relationship Specialty Start Date End Date Keiko Reddy MD [address] [address] PCP - General Family Medicine 06/18/17 05/15/18 documented as of this encounter
--- OUTSIDE RECORDS SUMMARY | 2023-12-15 01:16 | XMS_ITS | Encounter Summary ---
Author Organization [facility] Address [facility] [place] [address] Care Team Providers Care Binder Sorter Name Role Phone Keiko Reddy MD Primary Care Provider [phone] Encounter Details Date Type Department Care Team (Late st Contact Info) Description 01/20/2018 [place] [address] Jed Her PA [facility] [place] [address] Closed displaced fracture of posterior wall of [...] AM EDT Appointment [place] [address] 01/31/2024 10:20 AM EDT Office [place] [address] Rebecca Small MD [facility] [place] [address] 08/01/2024 11:30 AM EDT Office Visit Dermatology at [facility] [address] [place] [address] Phan Engle MD [facility] [place] [address] documented as of this encounter Results * [...] fine bony detail. There was prior volar slvqn-uca-ocbdc fixation of the previously described comminuted intra-articular distal radial fracture, in unchanged anatomic alignment, without evidence of complication. The fracture lines remain partly visible, without definite interval change. Right knee: There was prior wdxvk-eau-jewpx fixation of the previously described Schatzker type [...] obscures fine bony detail. There was priorvolar ztifv-udt-shlbd fixation of the previously described comminutedintra-articular distal radial fracture, in unchanged anatomic alignment, without evidenceof complication. The fracture lines remain partly visible, without definite interval change. Right knee: There was prior dieyq-inm-wlwih fixation of the previouslydescribed Schatzker type II [...] fine bony detail. There was prior volar mmifm-mls-bzdkb fixation of the previously described comminuted intra-articular distal radial fracture, in unchanged anatomic alignment, without evidence of complication. The fracture lines remain partly visible, without definite interval change. Right knee: There was prior qxhds-pll-ptqlw fixation of the previously described Schatzker type [...] obscures fine bony detail. There was priorvolar wcfip-kve-jrgse fixation of the previously described comminutedintra-articular distal radial fracture, in unchanged anatomic alignment, without evidenceof complication. The fracture lines remain partly visible, without definite interval change. Right knee: There was prior vqizh-lkd-ylyym fixation of the previouslydescribed Schatzker type II [...] Romero) documented in this encounter Care Teams Binder Sorter Relationship Specialty Start Date End Date Keiko Reddy MD [address] [address] PCP - General Family Medicine 06/18/17 05/15/18 documented as of this encounter
--- OUTSIDE RECORDS SUMMARY | 2023-12-15 01:16 | XMS_ITS | Encounter Summary ---
Author Organization [facility] Address [facility] [place] [address] Care Team Providers Care Field Mechanic/Site Lead Name Role Phone Keiko Reddy MD Primary Care Provider [phone] Reason for Referral * Physical Therapy (Routine) - Specialty Diagnoses / Procedures Referred By Marie diaz Referred To Contact Physical Therapy Diagnoses Radius/ulna fracture, right, closed, initial encounter Jed Her [place] [facility] [place] [address] Referral ID Status Reason Start Date Expiration Date V isits Requested Visits Authorized [id number] Evaluate and Treat 02/02/2018 08/01/2018 20 20 Encounter Details Date Type Department Care Team (Late st Contact Info) Description 02/02/2018 Telephone Orthopaedics at [facility] [place] [place] [address] Jed Her PA [facility] [place] [address] Social History Tobacco Use Types Packs/Day Years [...] encounter Miscellaneous Notes * Telephone Encounter - Katherin Wynn Cecilio - 02/02/2018 2:28 PM EDT Daphne wrote to us asking for a referral for her wrist and weight bearing status. After speaking with Dr. Romero and Dr. Talamantes: Right wrist- non weight bearing Right leg- non weight bearing Left leg- touch down weight bearing I called Daphne and let her know I would send her PT the updated orders and Jed would fix her note tomorrow. She was very appreciative of the call and gave me the fax number to her PT. PT referral for right wrist generated and faxed to [facility] at [phone]. documented in this encounter Plan of Treatment Upcoming Encounters Date Type Department Care Team (Late st Contact Info) Description 01/31/2024 9:15 AM EDT Appointment Hematology [place] [address] 01/31/2024 10:20 AM EDT Office Visit Gy[place] [address] Rebecca Small MD [facility] [place] [address] 08/01/2024 11:30 AM EDT Office Visit Dermatology at [facility] [address] [place] [address] Phan Engle MD [facility] [address] [place] [address] Scheduled Referrals Name Type Priority Associated Diagnoses Orde r Schedule Referral to Physical Therapy Outpatient Referral Routine 12/14/2017 ORIF right distal radius fracture (Dr. Romero) Ordered: 02/02/2018 documented as of this encounter Visit Diagnoses Diagnosis 12/14/2017 ORIF right distal radius fracture (Dr. Romero) documented in this encounter Care Teams Field Mechanic/Site Lead Relationship Specialty Start Date End Date Keiko Reddy MD [address] [facility] [address] [place] [address] PCP - General Family Medicine 06/18/17 05/15/18 documented as of this encounter
--- OUTSIDE RECORDS SUMMARY | 2023-12-15 01:16 | XMS_ITS | Encounter Summary ---
[place] [address] Care Team Providers Care It Infrastructure Manager Name Role Phone Keiko Reddy MD Primary Care Provider [phone] Reason for Visit * Reason Onset Date Comments Post-op Problem 01/20/2018 Encounter Details Date Type Department Care Team (Late st Contact Info) Description 01/20/2018 [place]phone [place] [phone] Ebony Blunt RMA Post-op Problem Social History Tobacco Use Types Packs/Day Years [...] encounter Miscellaneous Notes * Telephone Encounter - Tre Matos RN - 01/20/2018 5:02 PM EDT Patient contacted after review of notes. She expresses concern about information discussed with VNAat her home visit today, see note below for details. * Telephone Encounter - Ebony Blunt RMA - 01/20/2018 4:30 PM EDT Subjective: Post op concern SP Surgeon Role Reinaldo Romero MD Primary Peter Dueñas MD Resident-Surgeon Dread Procedure Laterality Anesthesia REMOVAL OF SUTURE UNDER ANESTHESIA, OTHER SURGEON, LOWER EXTREMITY (WRVU 0.86) N/ DOS 01/12/18 Simental questions/Assessment: Daphne called concerned today. She reported that her VNA nurse came outtoday and told her that the area in which she had her zuleyka out was weeping. She is very concerned as she can not see this area. She stresses that th is is a holiday weekend and does not want to beleft high and dry. She told me that she has [facility] and today she saw Felicita. I told her that if there was a concern that the VNA's are very good at calling us with these type of problems. Daphne told methat she was the one what was concerned. Se reports that she is feeling fine and is not running a temperature. Plan: I let Daphne know that I would like to have one of the Ortho Nurses to call her to triage this call. She agreed to this plan. Patient/Responsible alliance party voices an understanding of advice? yes documented in this encounter Plan of Treatment Upcoming Encounters Date Type Department Care Team (Late st Contact Info) Description 01/31/2024 9:15 AM EDT Appointment Hematology [place] [address] 01/31/2024 10:20 AM EDT Office Visit [place] [address] Rebecca Small MD [facility] [place] [address] 08/01/2024 11:30 AM EDT Office Visit Dermatology at [facility] [address] [place] [address] Phan Engle MD [facility] [address] [address] documented as of this encounter Visit Diagnoses Not on filedocumented in this encounter Care Teams It Infrastructure Manager Relationship Specialty Start Date End Date Keiko Reddy MD [address] [address] PCP - General Family Medicine 06/18/17 05/15/18 documented as of this encounter
--- OUTSIDE RECORDS SUMMARY | 2023-12-15 01:16 | XMS_ITS | Encounter Summary ---
Author Organization [facility] Address [facility] [place] [address] Care Team Providers Care Plant Maintenance Worker Name Role Phone Keiko Reddy MD Primary Care Provider [phone] Reason for Visit * Reason Comments Hip Injury HIP INTRAOP RADIOLOG IC EXAMINATION, UNILATERAL, W PELVIS Right Leg Fracture ORIF TIBIAL PLATEAU (PROXIMAL) UNICONDYLAR Right Arm Fracture ORIF DISTAL RADIUS, 3 OR MORE FRAGMENTS DOS 12/14/2017 Encounter Details Date Type Department Care Team (Late st Contact Info) Description 02/16/2018 3:30 PM EDT Office [place] [phone] Reinaldo Romero MD [facility] [place] [address] Closed fracture of right tibial plateau, initial [...] Sign Reading Time Taken Comments Blood Pressure 112/67 02/16/2018 3:13 PM EDT Pulse 77 02/16/2018 3:13 PM EDT Temperature - - Respiratory Rate - - Oxygen Saturation - - Inhaled Oxygen Concentration - - Weight 70.3 kg (155 lb) 02/16/2018 3:13 PM EDT p t reported Height 165.1 cm (5' 5) 02/16/2018 3:13 PM EDT p t reported Body Mass Index 25.79 02/16/2018 3:13 PM EDT documented in this encounter Progress Notes * Reinaldo Romero MD - 02/16/2018 3:30 PM EDT Orthopedic follow-up note arthroplasty/Orthopaedic History: 1. ORIF for Right distal radius fracture - 12/14/17 - Dr. Romero 2. ORIF for Right proximal tibia fracture - 12/14/17 - Heather 3. ORIF for Left acetabular fracture - 12/14/17 - Heather Ms. Pickard returns in follow-up for the above injuries and procedures. She has been working on physical therapy at home improving her range of motion but does have significant problems with pain whenshe tries to force the range of motion. This is mostly in her wrist. There is been some swelling around the wrist that is mild. No fevers or chills. No problems with any of the incisions. She was recently hospitalized for pulmonary emboli and started on Eliquis. She has not had any chest pain or shortness of breath or swelling in her legs or pleuritic pain since she was started on the Eliquis andfeels much better than she did prior to admission. I did see her in the hospital while she was hereand she looked fairly well all things considered. Objective: Awake alert no acute distress Range of motion of the right knee is from about 5 degrees shy of full extension to 90 degrees. Range of motion of the left hip is tolerated with internal rotation and external rotation of about 15 or20 degrees each. Wrist range of motion she has a 30 degree flexion extension arc and about 20 degrees of ulnar and radial deviation. She can pronate and supinate about 100 degrees total. EPL FPL interossei intact in both upper extremities. Normal sensation in both lower extremities in the SP DP tibial distributions. EHL FHL ankle plantar dorsiflexion intact. No effusion in the right knee. Well-healed surgical incisions throughout all extremities. Imaging: X-rays of the right wrist 3 views, right knee 2 views, left hip 3 views demonstrate no change in alignment of the hardware at any of these joints and some obscuring of the fracture lines suggesting healing. No complications noted. Assessment/plan: 52-year-old about 8 weeks status post the above surgeries on her right distal radius, right proximal tibia, left acetabulum. Overall she is doing well with making improvements in range of motion withphysical therapy. I discussed that she will have to fight through some of the pain that she is having. She is quite apprehensive about this which is the reason that we had to remove her zuleyka in the operating room under anesthesia. She is recovering well from her postoperative pulmonary emboli. I refilled her Eliquis today but I did mention that she would need to have this done by her new primary care physician once she establishes care. I gave her a prescription for a walker for when she can start weightbearing. We will have her start weightbearing in a pool doing 30% bilateral lower extremities on February 28 and then she can fully weight-bear on March 14 with a walker which would be 12 weeks status post the last surgery which was the acetabulum on the left side. All of her questions were answered. I will see her back in 8 weeks with repeat x-rays of the right wrist, right knee, left acetabulum. documented in this encounter Plan of Treatment Upcoming Encounters Date Type Department Care Team (Late st Contact Info) Description 01/31/2024 9:15 AM EDT Appointment [place]ematology [place] [address] 01/31/2024 10:20 AM EDT Office Visit [place] [address] Rebecca Small MD [facility] [place] [address] 08/01/2024 11:30 AM EDT Office Visit Dermatology at [place] [address] [place] [address] Phan Engle MD [facility] [address] [place] [address] documented as of this encounter Visit Diagnoses Diagnosis Closed fracture of right tibial plateau, initial encounter 12/14/2017 ORIF right distal radius fracture (Dr. Romero) documented in this encounter Care Teams Plant Maintenance Worker Relationship Specialty Start Date End Date Keiko Reddy MD [address] [address] PCP - General Family Medicine 06/18/17 05/15/18 documented as of this encounter
--- OUTSIDE RECORDS SUMMARY | 2023-12-15 01:16 | XMS_ITS | Encounter Summary ---
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 deformity Psych: Normal mood Assessment: 52-year-old female with multiple risk factors and concern for pulmonary embolism. She has an elevated d-dimer. She is hemodynamically stable. CTA of the chest. If this is negative she canbe discharged home with outpatient follow-up. Anuel Quinn MD 02/08/18 0020 * Carmine Dickson MD - 02/07/2018 11:38 PM EDT ED RESIDENT FOLLOW-UP NOTE: Time of transfer of care: 11:38pm Care transferred from: Dr. Hugh Sorto Condition at time of transfer: stable Clinical Summary: 52 y.o. old female in the process of being evaluated for chest pain and shortnessof breath. Please see Dr. Sorto's notes for initial evaluation, assessment and plan. Briefly, pt had a recent horseback riding incident causing her to be immobile. Today she had a sudden episode of chest pain and shortness of breath. She has been off of therapeutic anticoagulation since December. Trop negative. D-dimer was 4431. CTA chest pending at this time. Subsequent ED Course: ED Course Carmine Dickson's Documentation Value Comment Time CTA Chest for Pulmonary Embolus w Contrast Pulmonary emboli are seen extending to the subsegmental and segmental vessels of all lung distributions. No evidence of right heart strain. 02/08 0141 Pt remained stable with no acute events. CTA chest showed pulmonary emboli extending to the subsegmental and segmental vessels of all lung distributions. She was overall well-appearing, but because of her continued immobile state at home and her widespread PE distribution, we felt admission was necessary. She was started on Eliquis and admitted to hospital medicine for further management. Pt's questions were answered, and she agreed with the plan. Carmine Dickson MD Resident 02/08/18 0353 Associated attestation - Katherin Cruz MD - 02/09/2018 10:39 AM EDT ED ATTENDING ATTESTATION NOTE The patient was seen in conjunction with Dr. Dickson, the resident physician. I have reviewed the nursing notes, vital signs, and all diagnostic studies personally including labs, imaging studies and EKGs. I have discussed the details of the case with the resident and agree with the assessment and plan as described in the resident note above unless noted otherwise below. Brief Summary: 52 YOF signed out to me by Dr. Quinn pending CTPE. PE study +for large PE burden in segmental and subsegmental arteries. Pt started on eliquis. Hemodynamically stable. Admitted to hospital medicine for further care Final Assessment: PEs * Anuel Sorto MD - 02/07/2018 9:16 PM EDT Daphne Pickard is an 52 y.o. female who presents to the ED with: Chief Complaint Patient presents with ??? Shortness of Breath I saw this patient 02/07/2018 at ~ 9:16 PM HPI Daphne Pickard is a 52 y.o. female with a PMH significant for recent polytrauma from horseback riding incident rendering her with ongoing immobility who presents to the Emergency Department with sudden onset sharp right upper chest pain which is 10 out of 10 and stabbing in nature through to herright scapula. This makes her short of breath. She contacted her primary care provider who recommended that she come to the emergency department for evaluation for pulmonary embolism. She has been off of therapeutic anticoagulation since December. She remains largely immobile and uses a power chair to get around. She denies history of deep vein thrombosis and pulmonary embolism however she does state that she has had some calf tenderness recently. She has a whole leg knee immobilizer in place on the right leg. She has not had headache, lightheadedness, nausea, vomiting or diaphoresis. She has not had substernal chest pain with radiation to her neck or left arm. She has not had paresthesias inher upper extremities. She denies history of connective tissue disease and aortic injury to the best of her knowledge. She has not had any syncopal episodes. She reports worsening dyspnea with normalamounts of talking towards the end of sentences, this was not observed during the interview by myself. Review of Systems: Review of Systems Constitutional: Negative for appetite change, diaphoresis and fever. HENT: Negative for hearing loss and sore throat. Eyes: Negative for photophobia and pain. Respiratory: Positive for shortness of breath. Negative for chest tightness. Cardiovascular: Positive for chest pain. Gastrointestinal: Negative for abdominal pain. Endocrine: Negative for cold intolerance. Genitourinary: Negative for dysuria. Musculoskeletal: Negative for myalgias and neck pain. Skin: Negative for pallor and rash. Neurological: Negative for dizziness, weakness and light-headedness. Psychiatric/Behavioral: Negative for confusion. Patient Vitals for the past 24 hrs: BP Temp Temp src Pulse Resp SpO2 Weight 02/08/18 0045 - - - 92 18 93 % - 02/08/18 0030 - - - 88 17 94 % - 02/07/18 2345 116/75 - - 85 17 93 % - 02/07/18 2330 113/78 - - 92 19 93 % - 02/07/18 2315 113/78 - - 91 18 94 % - 02/07/18 2300 119/86 - - 87 19 94 % - 02/07/18 2245 118/83 - - 90 17 95 % - 02/07/18 2230 128/89 - - 87 17 95 % - 02/07/18 2215 (!) 118/93 - - 91 16 96 % - 02/07/18 2200 121/89 - - 89 18 95 % - 02/07/18 2145 120/87 - - 90 16 95 % - 02/07/18 1822 127/83 37.2 ??C (99 ??F) Oral 92 18 96 % 68 kg (150 lb) 02/07/181811 - - - - - 100 % - I have reviewed the vital signs, which demonstrates vitals within normal limits Physical Exam: Physical Exam Constitutional: She is oriented to person, place, and time. She appears well- developed and well-nourished. No distress. Well-appearing female sitting in no apparent distress. HENT: Head: Normocephalic and atraumatic. Eyes: Conjunctivae and EOM are normal. Pupils are equal, round, and reactive to light. Neck: Neck supple. Cardiovascular: Normal rate, regular rhythm, normal heart sounds and intact distal pulses. Exam reveals no gallop and no friction rub. No murmur heard. Pulmonary/Chest: Effort normal and breath sounds normal. No respiratory distress. Abdominal: Soft. Bowel sounds are normal. She exhibits no distension. There is no tenderness. Musculoskeletal: Normal range of motion. She exhibits no edema. Knee immobilizer on RLE Neurological: She is alert and oriented to person, place, and time. Skin: Skin is warm and dry. She is not diaphoretic. Psychiatric: She has a normal mood and affect. Her behavior is normal. Nursing note and vitals reviewed. ED Course: - Patient was evaluated and discussed with Dr. Quinn - Medications, allergies and past medical history reviewed ED Course: ED Course Anuel Sorto'hussein Documentation Value Comment Time D-Dimer, Quant: (!) 4431 (Reviewed) 02/08 2252 - Medications and fluid administered: none - I have reviewed the labs, which are significant for: Recent Results (from the past 24 hour(s)) Basic Metabolic Panel (non-fasting) Result Value Ref Range Glucose Lvl 141 65 - 199 mg/dL BUN 11 8 - 18 mg/dL Creatinine 0.74 0.70 - 1.20 mg/dL Sodium 142 135 - 145 mmol/L Potassium 3.3 (L) 3.5 - 5.0 mmol/L Chloride 102 98 - 107 mmol/L CO2 25 22 - 31 mmol/L Anion Gap 15 5 - 15 mmol/L Calcium 9.6 8.5 - 10.5 mg/dL eGFR 93 >=60 mL/min/1.73 m?? eGFR 108 >=60 mL/min/1.73 m?? Troponin T Result Value Ref Range Troponin-T <0.01 0.00 - 0.00 ng/mL D-Dimer, Quantitative Result Value Ref Range D-Dimer, Quant 4431 (H) 0 - 500 FEU ng/ml Hemogram Result Value Ref Range WBC 6.3 4.0 - 9.5 x10(3)/mcL RBC 4.16 4.00 - 5.21 x10(6)/mcL Hemoglobin 12.6 11.7 - 15.5 gm/dL Hematocrit 37.9 35.7 - 45.8 % MCV 91.1 82.6 - 94.4 fL MCH 30.3 27.1 - 32.0 pg MCHC 33.2 31.7 - 35.0 gm/dL Platelets 211 145 - 357 x10(3)/mcL RDWSD 40.2 37.0 - 46.0 fL RDWCV 12.0 11.5 - 14.1 % MPV 8.2 7.6 - 12.9 fL nRBC % Auto 0.0 % nRBC Abs Auto 0.000 0.000 - 0.000 x10(3)/mcL Differential, Automated Result Value Ref Range Neutrophils % 50.8 % Neutr Abs (ANC) 3.22 1.70 - 6.10 x10(3)/mcL Lymphocytes % 38.3 % Lymphocytes Abs 2.4 0.9 - 3.2 x10(3)/mcL Monocytes % 9.5 % Monocyte Abs 0.6 0.3 - 0.9 x10(3)/mcL Eosinophils % 0.6 % Eosinophils Abs 0.0 0.0 - 0.4 x10(3)/mcL Basophils % 0.5 % Basophils Abs 0.0 0.0 - 0.1 x10(3)/mcL Immature Gran % 0.30 % Tammi Gran Abs 0.02 0.00 - 0.04 x10(3)/mcL Gold Tube HOLD Result Value Ref Range Gold Hold Sample in lab. pro-Brain Natriuretic Peptide Result Value Ref Range ProBNP 15 <=125 pg/mL - I have reviewed the imaging, which is significant for: XR Chest PA & Lateral (Generic) Final Result 1. Low lung volumes with linear atelectasis at the left lung base. Correlate clinically for concern for superimposed infection. 2. Trace bibasilar effusions. - I have reviewed the EKG, which is significant for: normal EKG Assessment and Plan: MDM: Patient who is immobilized after surgical procedures after polytrauma presents with sudden onset sharp chest pain. This is concerning for pulmonary embolism. Based on the patient's well score a d-dimer was ordered and is well above the threshold value for testing with CT angiogram. On arrival and throughout her emergency department stay she is maintaining oxygen saturations in the range of 97-100on room air. She appears nontoxic and does not appear to be tachypnea with normal questioning in the ED. Given her elevated d-dimer I ordered a CTA with contrast timing to evaluate the pulmonary arteries. This study was pending at the time of patient handoff. [facility]. They will follow-up on the results of the patient's CTA and disposition her appropriately. History and EKG are not suggestive of ACS. No pneumothorax, pneumomediastinum or pneumonia seen on CXR. History is not concerning for esophageal rupture. History is much more concerning for pulmonary embolism then it is aortic dissection and I think that dedicated contrast timing to the venous phase is a higher yield and doing a CT angiogram of the chest evaluating for aorticpathology in this patient. Anuel Sorto MD EM Resident, PGY-2 02/07/18 9:16 PM Anuel Sorto MD Resident 02/08/18 0218 Associated attestation - Anuel Quinn MD - 02/09/2018 11:53 AM EDT ED ATTENDING ATTESTATION The patient was seen in conjunction with the resident physician. I have independently performed thekey portions of the history and physical exam. I have personally reviewed nursing notes, vital signs, and diagnostic studies including labs, imaging studies and EKGs. I have discussed the details of the case with the resident and agree with the assessment and plan as described in the resident's note, unless stated otherwise in my separate note. documented in this encounter Miscellaneous Notes * Plan of Care - Pita Her RN - 02/09/2018 4:10 AM EDT Problem: Patient Care Overview Goal: Plan of Care Review OUTCOME EVALUATION NOTE: OUTCOME SUMMARY: Patient slept between care this shift. Pain adequately controlled with meds (see MAR). No signs or symptoms of acute distress at this time. Will continue to monitor. PLAN MOVING FORWARD: Pain control, anticoagulation, d/c planning INDIVIDUALIZED FALL PREVENTION INTERVENTIONS: Patient-specific fall risk factors per assessment: [current deficits]: Deconditioning, NWB BLE Assistance [level of assistance required for transfers and ambulation]: Independent, electric wheelchair Supervision [direct monitoring required during toileting and ADLs]: Hands on, eyes on Surveillance [continuous indirect monitoring]: Masimo, q2h rounding Patient-specific fall prevention interventions for sensory deficits provided, if applicable: [X] N/A CPG GOAL OUTCOME EVALUATION: * Plan of Care - Coco Childers RN - 02/08/2018 5:19 PM EDT Problem: Skin Integrity Impairment, Risk/Actual (Adult) Goal: Skin Integrity/Wound Healing Patient will demonstrate the desired outcomes by discharge/transition of care. Outcome: Ongoing (Interventions Implemented as Appropriate) 02/08/18 1701 Skin Integrity Impairment, Risk/Actual (Adult) Skin Integrity/Wound Healing making progress toward outcome Problem: Patient Care Overview Goal: Plan of Care Review Outcome: Ongoing (Interventions Implemented as Appropriate) 02/08/18 1701 Coping/Psychosocial Plan Of Care Reviewed With patient Plan of Care Review Progress progress toward functional goals as expected OUTCOME EVALUATION NOTE: OUTCOME SUMMARY: Patient's VSS throughout shift. Patient tolerating regular diet. Pain controlled throughout shift. Patient using call ann appropriately. Using electric wheelchair to get to commode. Will continue tomonitor. PLAN MOVING FORWARD: -Pain Control -Mobilize -D/C planning INDIVIDUALIZED FALL PREVENTION: Fall Score: 75, high Baseline mobility: electric wheelchair Assistance: -standby assist to wheelchair Supervision: -Eyes-on for all transfers and ambulation Surveillance: -Purposeful Rounding -Team Care -Bedside Nurse Knowledge Exchange CPG OUTCOME EVALUATION: Goal: Fall Prevention-Safe Patient Handling Outcome: Ongoing (Interventions Implemented as Appropriate) 02/08/18 0850 [place] Fall Risk History of Falling 25 Secondary Diagnosis 15 Ambulatory Aids 15 Intravenous Therapy/Heparin/Saline Lock 20 Gait/Transferring 0 Mental Status 0 Score 75 OTHER [place] Fall Risk High Restraint Interventions Safety Promotion/Fall Prevention activity supervised;fall prevention program maintained;safety round/check completed Positioning Body Position supine, head elevated Activity Activity Type activity adjusted per tolerance Activity Assistance Provided assistance, 1 person Assistive Device Utilized wheelchair Goal: Infection Control Outcome: Ongoing (Interventions Implemented as Appropriate) 02/08/18 0850 Safety Interventions Isolation Precautions standard precautions maintained Infection Prevention barrier precautions utilized;environmental surveillance performed Coping Strategies Supportive Measures active listening utilized;relaxation techniques promoted;self-care encouraged;verbalization of feelings encouraged Goal: Interdisciplinary Rounds/Family Conf Outcome: Ongoing (Interventions Implemented as Appropriate) 02/08/18 1701 Interdisciplinary Rounds/Family Conf Participants nursing;patient documented in this encounter Plan of Treatment Upcoming Encounters Date Type Department Care Team (Late st Contact Info) Description 01/31/2024 9:15 AM EDT Appointment Hematology [place] [address] 01/31/2024 10:20 AM EDT Office Visit [place] [address] Rebecca Small MD [facility] [place] [address] 08/01/2024 11:30 AM EDT Office Visit Dermatology at [facility] [address] [place] [address] Phan Engle MD [facility] DR JESS [place] [address] documented as of this encounter Procedures Procedure Name Priority Date/Time Associated Diagnosis Comments CT CHEST PULMONARY EMBOLISM W CONTRAST STAT 02/08/2018 12:21 AM EDT XR CHEST PA AND LATERAL STAT 02/07/2018 10:16 PM EDT HEMOGRAM STAT 02/07/2018 9:55 PM EDT DIFFERENTIAL, AUTOMATED STAT 02/07/2018 9:55 PM EDT D-DIMER, QUANTITATIVE STAT 02/07/2018 9:55 PM EDT GOLD TUBE HOLD STAT 02/07/2018 9:55 PM EDT CBC (WITH DIFF) STAT 02/07/2018 9:55 PM EDT TROPONIN STAT 02/07/2018 9:55 PM EDT PRO-BRAIN NATRIURETIC PEPTIDE STAT 02/07/2018 9:55 PM EDT BASIC METABOLIC PANEL (NON-FASTING) STAT 02/07/2018 9:55 PM EDT EKG 12-LEAD STAT 02/07/2018 6:35 PM EDT documented in this encounter Results * CTA Chest for Pulmonary Embolus w Contrast (02/08/2018 12:21 AM EDT) Anatomical Region Laterality Modality Chest Computed Tomogra phy Impressions 02/08/2018 1:23 AM EDT Pulmonary emboli are seen extending to the subsegmental and segmental vessels of all lung distributions. No evidence of right heart strain. Dr. Cruz was called with results at 02/08/2018 1:06 AM Narrative 02/08/2018 1:23 AM EDT EXAMINATION: CTA CHEST PULMONARY EMBOLISM W CONTRAST CLINICAL HISTORY: immobilized patient with sudden onset sharp chest pain, SOB, elevated dimer TECHNIQUE: 3 mm thick axial contiguous sections were obtained through the chest via helical acquisition after the intravenous administration of 63 cc of Omnipaque 350. Thin-section reconstructions as well as coronal and sagittal MIP reformatted images were generated to aid in evaluation. COMPARISON: CT 12/13/2017 FINDINGS: Pulmonary arteries: There are segmental and subsegmental filling defects seen in arteries to all lobes. No saddle embolus. If severe/large/central pulmonary embolism burden present: RV diameter: 36 mm LV diameter: 44 mm RV/LV ratio: 0.81 Ancillary findings: Interventricular septum flattening or bowing: None Venous contrast reflux: None Other cardiovascular structures: Aortic contours are normal. Limited evaluation of the aortic lumen Pulmonary parenchyma: There is bibasilar and left upper lobe atelectasis. No large pulmonary consolidation or definite peripheral wedge-shaped infarcts. Airways: No significant findings. Pleura: No effusion or pneumothorax. Lymph nodes: No significant findings. Other mediastinal structures: No adenopathy by size criteria. Upper abdomen: No significant findings. Skeletal structures: No significant findings. Procedure Note Edgar Tello MD - 02/08/2018 EXAMINATION: CTA CHEST PULMONARY EMBOLISM W CONTRAST CLINICAL HISTORY: immobilized patient with sudden onset sharp chest pain,SOB, elevated dimer TECHNIQUE: 3 mm thick axial contiguous sections were obtained through thechest via helical acquisition after the intravenous administration of 63 cc of Omnipaque 350. Thin-section reconstructions as well as coronal andsagittal MIP reformatted images were generated to aid in evaluation. COMPARISON: CT 12/13/2017 FINDINGS: Pulmonary arteries: There are segmental and subsegmental filling defectsseen in arteries to all lobes. No saddle embolus. If severe/large/central pulmonary embolism burden present: RV diameter: 36 mm LV diameter: 44 mm RV/LV ratio: 0.81 Ancillary findings: Interventricular septum flattening or bowing: None Venous contrast reflux: None Other cardiovascular structures: Aortic contours are normal. Limitedevaluation of the aortic lumen Pulmonary parenchyma: There is bibasilar and left upper lobe atelectasis.No large pulmonary consolidation or definite peripheral wedge-shapedinfarcts. Airways: No significant findings. Pleura: No effusion or pneumothorax. Lymph nodes: No significant findings. Other mediastinal structures: No adenopathy by size criteria. Upper abdomen: No significant findings. Skeletal structures: No significant findings. IMPRESSION Pulmonary emboli are seen extending to the subsegmental and segmentalvessels of all lung distributions. No evidence of right heart strain. Dr. Cruz was called with results at 02/08/2018 1:06 AM Anuel Quinn MD IMG CT ORDERABLES * XR Chest PA & Lateral (Generic) (02/07/2018 10:16 PM EDT) Anatomical Region Laterality Modality Chest N/A Digital Radiogra phy Impressions 02/07/2018 10:32 PM EDT 1. ??Low lung volumes with linear atelectasis at the left lung base. Correlate clinically for concern for superimposed infection. 2. ??Trace bibasilar effusions. Narrative 02/07/2018 10:32 PM EDT EXAMINATION: XR CHEST PA AND LATERAL (GENERIC) CLINICAL HISTORY: shortness of breath TECHNIQUE: AP portable semiupright chest COMPARISON: None FINDINGS: Lung volumes are low. There are linear opacities at the left lung base. There is trace blunting of the costophrenic angles. No pneumothorax. Cardiac silhouette is normal for an AP radiograph. No suspicious osseous findings. Procedure Note Edgar Tello MD - 02/07/2018 EXAMINATION: XR CHEST PA AND LATERAL (GENERIC) CLINICAL HISTORY: shortness of breath TECHNIQUE: AP portable semiupright chest COMPARISON: None FINDINGS: Lung volumes are low. There are linear opacities at the left lung base.There is trace blunting of the costophrenic angles. No pneumothorax. Cardiacsilhouette is normal for an AP radiograph. No suspicious osseous findings. IMPRESSION 1. Low lung volumes with linear atelectasis at the left lung base.Correlate clinically for concern for superimposed infection. 2. Trace bibasilar effusions. Josiah Lr MD IM DX ORDERABLES * pro-Brain Natriuretic Peptide (02/07/2018 9:55 PM EDT) ProBNP 15 <=125 pg/mL [facility] Blood specimen (specimen) Venous Draw / Unknown 02/07/2018 9:55 PM EDT 02/07/2018 10:02 PM EDT Narrative Resulting Agency Comment Spec In Lab Anuel Quinn MD CHEMISTRY ORDERABL ES Performing Organization Address City/[facility]/ZIP [place] [address] * Gold Tube HOLD (02/07/2018 9:55 PM EDT) Gold Hold Sample in lab. [facility] Blood specimen (specimen) Venous Draw / Unknown 02/07/2018 9:55 PM EDT 02/07/2018 10:00 PM EDT Anuel Sorto MD CHEMISTRY ORDERABLES Performing Organization Address [facility] Co de Phone Number [facility] [place] [address] * Differential, Automated (02/07/2018 9:55 PM EDT) [facility] Neutrophils % 50.8 % [facility] Neutr Abs (ANC) 3.22 1.70 - 6.10 x10(3)/[facility] Lymphocytes % 38.3 % [facility] Lymphocytes Abs 2.4 0.9 - 3.2 x10(3)/[facility] Monocytes % 9.5 % [facility] Monocyte Abs 0.6 0.3 - 0.9 x10(3)/[facility] Eosinophils % 0.6 % [facility] Eosinophils Abs 0.0 0.0 - 0.4 x10(3)/[facility] Basophils % 0.5 % [facility] Basophils Abs 0.0 0.0 - 0.1 x10(3)/[facility] Immature Gran % 0.30 % [facility] Comment: Immature granulocytes(IG's)percentage and absolute count will include metamyelocytes, myelocytes, and promyelocytes. Blood smears from CBCs yielding IG's will be scanned manually for concordance. If this scan disagrees with the automated IG or if promyelocytes are noted, a manual differential will be performed. Tammi Gran Abs 0.02 0.00 - 0.04 x10(3)/[facility] Blood specimen (specimen) 02/07/2018 9:55 PM EDT 02/07/2018 10:00 PM EDT Narrative Resulting Agency Comment Spec In Lab Anuel Sorto MD HEMATOLOGY ORDERABLE S [facility] [place] [address] * Hemogram (02/07/2018 9:55 PM EDT) WBC 6.3 4.0 - 9.5 x10(3)/[facility] RBC 4.16 4.00 - 5.21 x10(6)/[facility] Hemoglobin 12.6 11.7 - 15.5 gm/dL [facility] Hematocrit 37.9 35.7 - 45.8 % [facility] MCV 91.1 82.6 - 94.4 fL [facility] MCH 30.3 27.1 - 32.0 pg [facility] MCHC 33.2 31.7 - 35.0 gm/dL [facility] Platelets 211 145 - 357 x10(3)/[facility] RDWSD 40.2 37.0 - 46.0 [facility] RDWCV 12.0 11.5 - 14.1 % [facility] MPV 8.2 7.6 - 12.9 [facility] nRBC % Auto 0.0 % [facility] nRBC Abs Auto 0.000 0.000 - 0.000 x10(3)/[facility] Blood specimen (specimen) 02/07/2018 9:55 PM EDT 02/07/2018 10:00 PM EDT Narrative Resulting Agency Comment Spec In Lab Anuel Sorto MD HEMATOLOGY ORDERABLE S Performing Organization Address [facility] Co de Phone Number [facility] [place] [address] * (ABNORMAL) D-Dimer, Quantitative (02/07/2018 9:55 PM EDT) Pathologist [facility] D-Dimer, Quant 4,431(H) 0 - 500 FEU ng/ml [facility] Comment: The D-Dimer assay is used to aid in the diagnosis of deep vein thrombosis and pulmonary embolism. A normal D-Dimer result (less than 500 FEU ng/ml) has a negative predictive value of approximately 95% for the exclusion of acute PE and DVT when there is low to moderate pretest probability. To use age adjusted cutoff: Age x 10 ng/ml. Blood specimen (specimen) 02/07/2018 9:55 PM EDT 02/07/2018 10:00 PM EDT Narrative Resulting Agency Comment Spec In Lab Josiah Lr MD HEMATOLOGY ORDERABL ES Performing Organization Address [facility] Co de Phone Number [facility] [place] [address] * Troponin T (02/07/2018 9:55 PM EDT) [facility] Troponin-T <0.01 0.00 - 0.00 ng/mL [facility] Comment: The 99th percentile for Troponin T is less than 0.01 ng/mL, any detectable cTnT concentration using this assay should be considered elevated. According to the third universal definition of myocardial infarction the following criteria with a clinical presentation consistent with acute myocardial ischemia meets the diagnosis for a myocardial infarction (CO). Detection of a rise and/or fall of cTnT, with at least one value greater than the 99th percentile (> or = 0.01) and with at least one of the following ?? Symptoms of ischemia ?? New or presumed new significant IA-ptnxfxf-I wave (ST-T) changes or new left bundle branch block (LBBB) ?? Development of pathologic Q waves in the ECG ?? Imaging evidence of new loss of viable myocardium or new regional wall motion abnormality ?? Identification of an intracoronary thrombus by angiography or autopsy Samples for cTnT testing should be obtained serially upon first assessment and again 3 to 6 hours later. If the clinical suspicion is high and previous samples have been negative an additional sample may be indicated. Reference: Third [place] Definition of Myocardial Infarction. Journal of the [place] [employer] 2012;60:1581-98 Blood specimen (specimen) 02/07/2018 9:55 PM EDT 02/07/2018 10:00 PM EDT Narrative Resulting Agency Comment Spec In Lab Josiah Lr MD CHEMISTRY ORDERABLE S [facility] [place] [address] * (ABNORMAL) Basic Metabolic Panel (non-fasting) (02/07/2018 9:55 PM EDT) Glucose Lvl 141 65 - 199 mg/dL [facility] Comment:Diabetes: >=200 mg/d L plus symptoms BUN 11 8 - 18 mg/dL [facility] Creatinine 0.74 0.70 - 1.20 mg/dL [facility] Sodium 142 135 - 145 mmol/L [facility] Potassium 3.3(L) 3.5 - 5.0 mmol/L [facility] Comment: Please note: ??Patients with WBC >100,000 may have falsely elevated Potassium levels. ??For accurate Potassium quantification in these patients send serum separator tube (gold top) for subsequent determinations. ??Contact the Clinical Chemistry Laboratory if there are any questions. Chloride 102 98 - 107 mmol/L [facility] CO2 25 22 - 31 mmol/L [facility] Anion Gap 15 5 - 15 mmol/L [facility] Calcium 9.6 8.5 - 10.5 mg/dL [facility] Estimated GFR 93 >=60 mL/min/1. 73 m?? [facility] Comment: The eGFR was calculated using the CKD-EPI equation. As with all creatinine based estimates of kidney function, eGFR values calculated with the CKD-EPI equation are not accurate in patients with acute kidney failure, extremes of body mass or the acutely ill. http://[employer]/DHnkf eGFR 108 >=60 mL/min/1. 73 m?? [facility] Comment: The eGFR was calculated using the CKD-EPI equation. As with all creatinine based estimates of kidney function, eGFR values calculated with the CKD-EPI equation are not accurate in patients with acute kidney failure, extremes of body mass or the acutely ill. http://[employer]/DHnkf Blood specimen (specimen) 02/07/2018 9:55 PM EDT 02/07/2018 10:00 PM EDT Narrative Resulting Agency Comment Spec In Lab Josiah Lr MD CHEMISTRY ORDERABLE S Performing Organization Address [facility] Co de Phone Number [facility] [place] [address] * EKG 12 Lead (02/07/2018 6:35 PM EDT) Ventricular rate 93 BPM MUSE SYSTEM Atrial Rate 93 BPM MUSE SYSTEM P-R Interval 148 ms MUSE SYSTEM QRS Duration 78 ms MUSE SYSTEM Q-T Interval 382 ms MUSE SYSTEM QTC Calculated (Bezet) 474 ms MUSE SYSTEM Calculated P [place] 56 degrees MUSE SYSTEM Calculated R [place] 5 degrees MUSE SYSTEM Calculated T [place] 27 degrees MUSE SYSTEM INTERPRETATION Normal sinus rhythm Possible Left atrial enlargement Borderline ECG No previous ECGs available Confirmed by MD Luis Angel, Watson ([id number]) on 02/08/2018 10:37:05 AM MUSE SYSTEM 02/07/2018 6:35 PM EDT 02/08/2018 10:37 AM EDT Anuel Quinn MD ECG ORDERABLES Performing Organization Address [place]/[facility] Co de Phone Number MUSE SYSTEM documented in this encounter Visit Diagnoses Diagnosis Acute pulmonary embolus- Primary Other pulmonary embolism and infarction Pleuritic chest pain Painful respiration Pulmonary embolism Other pulmonary embolism and infarction documented in this encounter Admitting Diagnoses Diagnosis Pulmonary embolism Other pulmonary embolism and infarction documented in this encounter Administered Medications Inactive Administered Medications - up to 3 most recent administrations Medication Order MAR Action Action Date Dose Rate Site acetaminophen (TYLENOL) tablet 1,000 mg 1,000 mg, Oral, EVERY 6 HOURS, First dose on Wed02/08/18 at 0545, Until Discontinued, Maximum dose of acetaminophen is 4000 mg from all sources in 24 hours., Routine Given 02/08/2018 5:58 AM EDT 1,000 mg apixaban (ELIQUIS) tablet Tab 10 mg 10 mg, Oral, 2 TIMES DAILY, 14 doses, First dose (after last modification) on Wed02/08/18 at 0149, Last dose on Wed02/14/18 at 0900, Anticoagulant, STAT, Restricted anticoagulant, choose the most appropriate response: Appoved indication of DVT and/or PE Given 02/09/2018 9:26 AM EDT 10 mg Given 02/08/2018 8:59 PM EDT 10 mg Given 02/08/2018 8:56 AM EDT 10 mg apixaban (ELIQUIS) tablet Tab 5 mg 5 mg, Oral, 2 TIMES DAILY, First dose (after last modification) on Wed02/14/18 at 2100, Until Discontinued, Anticoagulant, STAT, Restricted anticoagulant, choose the most appropriate response: Appoved indication of DVT and/or PE cyclobenzaprine (FLEXERIL) tablet 10 mg 10 mg, Oral, 3 TIMES DAILY, First dose on Wed02/08/18 at 0900, Until Discontinued, Routine Given 02/08/2018 8:59 PM EDT 10 mg Given 02/08/2018 8:56 AM EDT 10 mg iohexol (OMNIPAQUE) 350 mg/mL solution 0-200 mL 0-200 mL, Intravenous, ONCE PRN, 1 dose, Starting on Wed02/07/18 at 2357, Until Wed02/08/18 at 0023, Per Protocol, Warning Vesicant/Irritant Medication , Radiology Contrast, Routine Given 02/08/2018 12:23 AM EDT 130 mLs sodium chloride 0.9 % flush 5 mL 5 mL, Intravenous, 2 TIMES DAILY, First dose on Wed02/08/18 at 0900, Until Discontinued, Routine Given 02/09/2018 9:00 AM EDT 5 mLs Given 02/08/2018 8:59 PM EDT 5 mLs Given 02/08/2018 8:56 AM EDT 5 mLs documented in this encounter Active and Recently Administered Medications Times are shown in EDT. Scheduled Medication Order 02/07/2018 02/08/2018 02/09/2018 acetaminophen (TYLENOL) tablet 1,000 mg 1,000 mg, Oral, EVERY 6 HOURS, First dose on Wed02/08/18 at 0545, Until Discontinued, Maximum dose of acetaminophen is 4000 mg from all sources in 24 hours., Routine 0558 (Given - Provider: Bharath Caruso RN)1145 (Not Given - Provider: Coco Childers RN - Reason: Patient/family refused)1745 (Not Given - Provider: Coco Childers RN - Reason: Patient/family refused)2345 (Not Given - Provider: Pita Her RN - Reason: Patient/family refused) 0545 (Not Given - Provider: Pita Her RN - Reason: Patient/family refused) apixaban (ELIQUIS) tablet Tab 10 mg(Linked Group 1) 10 mg, Oral, 2 TIMES DAILY, 14 doses, First dose (after last modification) on Wed02/08/18 at 0149, Last dose on Wed02/14/18 at 0900, Anticoagulant, STAT, Restricted anticoagulant, choose the most appropriate response: Appoved indication of DVT and/or PE 0305 (Given - Provider: Vani Benavides RN)0856 (Given - Provider: Coco Childers RN)2058 (Given - Provider: Pita Her RN) 0926 (Given - Provider: Leodan Tsai RN) apixaban (ELIQUIS) tablet Tab 5 mg(Linked Group 1) 5 mg, Oral, 2 TIMES DAILY, First dose (after last modification) on Wed02/14/18 at 2100, Until Discontinued, Anticoagulant, STAT, Restricted anticoagulant, choose the most appropriate response: Appoved indication of DVT and/or PE cyclobenzaprine (FLEXERIL) tablet 10 mg 10 mg, Oral, 3 TIMES DAILY, First dose on Wed02/08/18 at 0900, Until Discontinued, Routine 0856 (Given - Provider: Coco Childers RN)1500 (Not Given - Provider: Coco Childers RN - Reason: Patient/family refused)2058 (Given - Provider: Pita Her, RN) 0900 (Not Given - Provider: Leodan Tsai, HAYLEY - Reason: Patient/family refused) melatonin tablet 3 mg 3 mg, Oral, EVERY EVENING, First dose on Wed02/08/18 at 1700, Until Discontinued, Routine 2100 (Not Given - Provider: Pita Her RN - Reason: Patient/family refused) sodium chloride 0.9 % flush 5 mL 5 mL, Intravenous, 2 TIMES DAILY, First dose on Wed02/08/18 at 0900, Until Discontinued, Routine 0856 (Given - Provider: Coco Childers RN)2058 (Given - Provider: Pita Her RN) 0900 (Given - Provider: Leodan Tsai RN) PRN Medication Order 02/07/2018 02/08/2018 02/09/2018 iohexol (OMNIPAQUE) 350 mg/mL solution 0-200 mL (COMPLETED) 0-200 mL, Intravenous, ONCE PRN, 1 dose, Starting on Wed02/07/18 at 2357, Until Wed02/08/18 at 0023, Per Protocol, Warning Vesicant/Irritant Medication , Radiology Contrast, Routine 0023 (Given - Provider: Hugh Rosario) lidocaine (XYLOCAINE) 10 mg/mL (1 %) injection 3 mg 3 mg (0.3 mL), Subcutaneous, ONCE PRN, 1 dose, Starting on Wed02/08/18 at 0527, Until Wed02/09/18 at 1259, for discomfort with PIV insertion, Routine sodium chloride 0.9 % flush 5-20 mL 5-20 mL, Intravenous, EVERY 1 MIN PRN, Starting on Wed02/08/18 at 0527, Until Wed02/09/18 at 1259, flush, Flush pertains to all indwelling lines. Flush per protocol found in the job aid using the link provided on this medication record., Routine Linked Groups Order Group 1: apixaban (ELIQUIS) tablet Tab 10 mgJump to med 10 mg, Oral, 2 TIMES DAILY, 14 doses, First dose (after last modification) on Wed02/08/18 at 0149, Last dose on Wed02/14/18 at 0900, Anticoagulant, STAT, Restricted anticoagulant, choose the most appropriate response: Appoved indication of DVT and/or PE Followed by apixaban (ELIQUIS) tablet Tab 5 mgJump to med 5 mg, Oral, 2 TIMES DAILY, First dose (after last modification) on Wed02/14/18 at 2100, Until Discontinued, Anticoagulant, STAT, Restricted anticoagulant, choose the most appropriate response: Appoved indication of DVT and/or PE documented in this encounter Care Teams Alternative Energy Technician Relationship Specialty Start Date End Date Keiko Reddy MD [address] [place] [id number] PCP - General Family Medicine 06/18/17 05/15/18 documented as of this encounter
--- OUTSIDE RECORDS SUMMARY | 2023-12-15 01:16 | XMS_ITS | Encounter Summary ---
[place] [address] Care Team Providers Care Machine Grainer Name Role Phone Keiko Reddy MD Primary Care Provider [phone] Reason for Visit * Reason Onset Date Comments Referral, Vna 01/12/2018 referral placed - patient to call back with preferred agency. Encounter Details Date Type Department Care Team (Late st Contact Info) Description 01/12/2018 Telephone [place] [phone] Tre Matos, advanced research programs director, [facility] (referral placed - patient to call back with preferred agency. ) Social History Tobacco Use Types Packs/Day Years [...] Telephone Encounter - Tre Matos RN - 01/12/2018 4:10 PM EDT ML for patient to return departments call at her soonest convenience. Referral for [facility]NA services placed at Dr. Romero's request. Patient will be calling to name the agency she would like the referral sent to. Once agency obtained - referral and all intake info should be faxed to the agency. documented in this encounter Plan of Treatment Upcoming Encounters Date Type Department Care Team (Late st Contact Info) Description 01/31/2024 9:15 AM EDT Appointment Hematology [place] [phone] 01/31/2024 10:20 AM EDT Office Visit [place] [phone] Rebecca Small MD [facility] [place] [address] 08/01/2024 11:30 AM EDT Office Visit Dermatology at [place] [address] [place] [address] Phan Engle MD [facility] [address] [place] [address] documented as of this encounter Visit Diagnoses Not on filedocumented in this encounter Care Teams Machine Grainer Relationship Specialty Start Date End Date Keiko Reddy MD [address] [address] PCP - General Family Medicine 06/18/17 05/15/18 documented as of this encounter
--- OUTSIDE RECORDS SUMMARY | 2023-12-15 01:17 | XMS_ITS | Encounter Summary ---
Author Organization [facility]ly [facility] [address] Care Team Providers Care Client Integration Manager Name Role Phone Keiko Reddy MD Primary Care Provider [phone] Reason for Visit * Auth/Cert Specialty Diagnoses / Procedures Referred By Marie diaz Referred To Contact Diagnoses Trauma right tibial plateau fracture Procedures @ORIF TIBIAL PLATEAU (PROXIMAL) UNICONDYLAR (WRVU 13.41) MODIFIER TIBIA ANA SYSTEM SYNTHES MODIFIER PROXIMAL LOCKING TIBIA PLATES SYNTHES MODIFIER LOCKING MEDIAL PROXIMAL TIBIA PLATES SYNTHES Referral ID Status Reason Start Date Expiration Date Visits Re quested Visits Authorized [id number] 1 1 Encounter Details Date Type Department Care Team (Late st Contact Info) Description 12/20/2017 7:49 AM EDT Anesthesia [place] [address] Rick Leigh MD [facility] [place] [address] Silke Balderas CRNA [facility] [place] [address] [place] [address] Anesthesia Record Procedure Summary Procedure Name Responsible Anesthesiologist Anesthesia Start Time Anesthesia Stop Time @OPEN TREATMENT, ACETABULAR FX (WRVU 25.41) (Left: Pelvis) Rick Leigh MD 12/20/17 0749 12/20/17 1032 Events Date Time Event Comment 12/20/2017 0747 0749 AN Verify 0749 Start 0749 An Start Data 0751 An Induction 0756 An Intubation 0804 Anesthesia Ready 0843 [facility] Zoltan Teresa, BACK PAD INSPECTOR 1021 Extubation/LMA Out 1021 an stop data 1032 Recovery or ICU Handoff Awa ent care was transferred to the destination unit staff after review of the patient's medical history, current anesthetic/surgical status and plan, according to the Provider Handoff Checklist. 1032 Stop Meds Name Total Midazolam 2 mg fentaNYL 300 mcg IV Lidocaine 40 mg Propofol 200 mg Rocuronium 70 mg Ondansetron 4 mg Dexamethasone 4 mg Neostigmine 3 mg Glycopyrrolate 0.6 mg ceFAZolin 2 g Lactated Ringers 1,500 mL * Agents Name O2 Air N2O Sevoflurane (et) * Blood No blood administrations on file. Lines, Drains, and Airways Type Details Placement Removal Incision 12/14/17; knee; 12/23 02/12 (LDA cleanup utility RA#[id number]); 1715 (LDA cleanup utility RA#[id number]) 12/14/17 0000 by Babs Hernández RN 01/19/22 1715 by Harsha Simon Incision 12/14/17; wrist; 01/19/22 (LDA cleanup utility RA#[id number]); 1715 (LDA cleanup utility RA#[id number]) 12/14/17 0000 by Babs Hernández RN 01/19/22 1715 by Harsha Simon (RETIRED) Peripheral IV Line - Single Lumen 12/14/17; 0001; median cubital vein (antecubital fossa), left; 18 gauge; outside hospital; 12/24/17; 1039 12/14/17 0001 by Bee Cardozo RN 12/24/17 1039 by Niyah Barrera RCP (RETIRED) Peripheral IV Line - Single Lumen 12/14/17; 0001; cephalic vein (lateral side of arm), left; [id number] catheter system; 20 gauge; outside hospital; 12/24/17; 1331 12/14/17 0001 by Bee Cardozo RN 12/24/17 1331 by Pita Her, RN Urethral Catheter 12/16/17; 1118; Acut e urinary retention, Physician order; indwelling single lumen catheter; 14; 1; none; urethral catheter removed, per protocol/policy, tubing intact; 12/20/17; 1538 12/16/17 1118 by Karin Hawkins RN 12/20/17 1538 by Gini Ma CIRCULATION MAN Incision 12/20/17; hip; 01/19 (LDA cleanup utility RA#[id number]); 1715 (LDA cleanup utility RA#[id number]) 12/20/17 0000 by Rose Mary Teixeira RN 01/19/22 1715 by Harsha Simon ETT Mask Ventilation: Ea sy (1); ETT Type: Cuffed; ETT Size: 7 mm; Mac Blade: 3; Notes: Asleep, Pre-O2, Stylette; Attempts: 1; Laryngoscopy Grade: 1; ETT Placement Verified By: Auscultation, Capnometry, Visual; Secured at Teeth: 21 cm; Inserted by: angela; Removal Date: 12/20/17; Removal Time: 1021 12/20/17 0801 by Richie Martin Jr., CRNA 12/20/17 1021 by Richie Martin Jr., BACK PAD INSPECTOR documented in this encounter Social History Tobacco Use Types Packs/Day Years Used Date Smoking Tobacco: Former Cigarettes Q uit: 06/25/2010 Smokeless Tobacco: Never Alcohol Use Standard Drinks/Week Comments Yes 2 (1 standard drink = 0.6 oz pur e alcohol) Sex and Gender Information Value Date Recorded Sex Assigned at Not on file Gender Identity Not on file Sexual Orientation Not on file documented as of this encounter OR Notes * Anesthesia Postprocedure Evaluation - Rick Leigh MD - 12/20/2017 12:00 PM EDT [facility] Department of Anesthesiology Post-procedure Note Patient: Daphne Pickard Procedure Summary Date Anesthesia Start Anesthesia Stop Room / Location 12/20/17 0749 1032 [facility] Procedure Diagnosis Surgeon Responsible Provider @OPEN TREATMENT, ACETABULAR FX (WRVU 25.41) (Left Pelvis); MODIFIER LOCKING SMALL FRAGMENT SYNTHES (Left ); MODIFIER PELVIC RECONSTRUCTION PLATE SYNTHES (Left ) (Left posterior wall acetabulum fx) Tete Talamantes MD Nguyen, Tung T, MD All Anesthesia Providers: Anesthesiologist: Rick Leigh MD BACK PAD INSPECTOR: Richie Martin Jr. BACK PAD INSPECTOR Most Recent Vitals: 12/20/17 1350 BP: 101/68 Pulse: Resp: 14 Temp: 36.7 ??C (98.1 ??F) SpO2: 98% Pain 3 (12/20/17 1350) Patient Location: PACU/[facility] Level of Consciousness: Conscious but Sleepy Pain Management: Satisfactory Analgesia PONV: None Cardiovascular Status: At Baseline Respiratory Status: Stable Respiratory Status and Supplemental O2 (NC or FM) Postoperative Fluid Status: Intravascular EUvolemia Possible Anesthetic Complications: NONE apparent at time of evaluation Final Primary Anesthesia Type: General (The anesthetic type performed was the same as planned.) Comments: * Anesthesia Preprocedure Evaluation - Rick Leigh MD - 12/20/2017 6:36 AM EDT Pre-Anesthesia Evaluation for: Daphne Pickard a 52 y.o. female. Procedure(s): @OPEN TREATMENT, ACETABULAR FX (WRVU 25.41) MODIFIER LOCKING SMALL FRAGMENT SYNTHES MODIFIER LOCKING LARGE FRAGMENT SYNTHES MODIFIER PELVIC RECONSTRUCTION PLATE SYNTHES Patient Active Problem List Diagnosis ??? Trauma ??? Fracture of right tibial plateau ??? Radius/ulna fracture, right, closed, initial encounter ??? Closed fracture of posterior wall of left acetabulum Past Medical History: Diagnosis Date ??? Basal cell carcinoma 2010 Past Surgical History: Procedure Laterality Date ??? PRG RADEX HIP UNILATERAL WITH PELVIS 1 VIEW Left 12/14/2017 HIP INTRAOP RADIOLOGIC EXAMINATION, UNILATERAL, W PELVIS; 1 VIEW (WRVU 0.18) performed by Reinaldo Romero MD at [facility] MA[facility] OR ??? PRO COLONOSCOPY, DIAGNOSTIC N/A 06/25/2017 COLONOSCOPY, DIAGNOSTIC performed by Kimani Rojas MD at [facility] ENDOSCOPY ??? PRO OPEN RX DISTAL RADIUS FX, INTRA-ARTICULAR, 3+ FRAG Right 12/14/2017 ORIF DISTAL RADIUS, 3 OR MORE FRAGMENTS (WRVU 14.38) performed by Reinaldo Romero MD at [facility] MAIN OR ??? PRO OPEN TX TIBIAL FRACTURE PROXIMAL UNICONDYLAR Right 12/14/2017 @ORIF TIBIAL PLATEAU (PROXIMAL) UNICONDYLAR (WRVU 13.41) performed by Reinaldo Romero MD at [facility] MAIN OR Social History Substance Use Topics ??? Smoking status: Former Smoker Types: Cigarettes Quit date: 06/25/2010 ??? Smokeless tobacco: Never Used ??? Alcohol use 1.2 oz/week 2 Glasses of wine per week History Drug Use ??? Yes ??? Special: Marijuana Comment: infrequent No Known Allergies Medications: MAR and/or home medications have been reviewed. Physical Exam: Most Recent Vitals: 12/20/17 0335 BP: 113/74 Pulse: Resp: 16 Temp: 37 ??C (98.6 ??F) SpO2: 94% Body mass index is 27.46 kg/(m^2). Height: 165.1 cm (5' 5) Weight: 74.8 kg (165 lb) Airway Assessment: Mallampati: I TM distance: >3 FB Neck ROM: full Cardiovascular Assessment: Rhythm: regular Rate: normal Pulmonary Assessment: breath sounds clear to auscultation Dental Assessment: - normal exam Misc Assessment: Patient is wearing No contact(s). IV access: Peripheral line Anesthesia Plan: ASA 2 general, with a(n) intravenous induction Region - Other Informed Consent: Anesthetic plan and risks discussed with patient. Use of blood products discussed with patient who consented to blood products. Plan discussed with BACK PAD INSPECTOR. PAT Staff Note Attending NOTE Brief HPI: 52 y.o. with LEFT acetabular fx to OR for ORIF Diagnosis ??? Fracture of right tibial plateau ??? Radius/ulna fracture, right, closed ??? Closed fracture of posterior wall of left acetabulum Past Medical History: Diagnosis Date ??? Basal cell carcinoma 2010 METS:>4 Cardiac Symptoms: denies EKG: none ECHO: none LABS: Lab Results Component Value Date HGB 10.9 (L) 12/17/2017 PLATELET 195 12/17/2017 INR 1.0 12/14/2017 NA 142 12/17/2017 K 3.9 12/17/2017 CREATININE 0.63 (L) 12/17/2017 Type and Screen: Lab Results Component Value Date ABORH A Neg 12/14/2017 Past anesthetic problems: denies Previous airway notes (on eDH): easy MV, CMAC (view grade not documented) NPO status: Reviewed and appropriate Anesthetic Plan: GETA Monitoring: Standard ASA monitors documented in this encounter Plan of Treatment Upcoming Encounters Date Type Department Care Team (Late st Contact Info) Description 01/31/2024 9:15 AM EDT Appointment Hematology [place] [address] 01/31/2024 10:20 AM EDT Office Visit [place] [address] Rebecca Small MD [facility] [place] [address] 08/01/2024 11:30 AM EDT Office Visit Dermatology at [facility] [address] [place] [address] Phan Engle MD [facility] DR [place] [address] documented as of this encounter Visit Diagnoses Not on filedocumented in this encounter Administered Medications Inactive Administered Medications - up to 3 most recent administrations Medication Order MAR Action Action Date Dose Rate Site ceFAZolin (ANCEF) 1g in dextrose 5% 50mL PRN, Starting on Wed12/20/17 at 0804, Until Wed12/20/17 at 1032, Administer over 30 Minutes, Anesthesia Intra-op Given 12/20/2017 8:04 AM EDT 2 g dexamethasone (DECADRON) injection PRN, Starting on Wed12/20/17 at 0815, Until Wed12/20/17 at 1032, Anesthesia Intra-op, Routine Given 12/20/2017 8:15 AM EDT 4 mg fentaNYL 50 mcg/mL multi-dose injection PRN, Starting on Wed12/20/17 at 0815, Until Wed12/20/17 at 1032, Pain, Anesthesia Intra-op, Routine Given 12/20/2017 10:25 AM EDT 50 mcg Given 12/20/2017 10:00 AM EDT 50 mcg Given 12/20/2017 9:51 AM EDT 25 mcg glycopyrrolate (ROBINUL) multi-dose injection PRN, Starting on Wed12/20/17 at 0953, Until Wed12/20/17 at 1032, Anesthesia Intra-op, Routine Given 12/20/2017 9:53 AM EDT 0.6 mg lactated Ringers infusion CONTINUOUS PRN, Starting on Wed12/20/17 at 0749, Until Wed12/20/17 at 1032, Anesthesia Intra-op New Bag 12/20/2017 9:31 AM EDT New Bag 12/20/2017 7:49 AM EDT lidocaine (PF) (XYLOCAINE) 100 mg/5 mL (2 %) injection PRN, Starting on Wed12/20/17 at 0751, Until Wed12/20/17 at 1032, Anesthesia Intra-op, Routine Given 12/20/2017 7:51 AM EDT 40 mg midazolam (PF) (VERSED) 1 mg/mL multi-dose injection PRN, Starting on Wed12/20/17 at 0751, Until Wed12/20/17 at 1032, Sleep, Anesthesia Intra-op, Routine Given 12/20/2017 7:51 AM EDT 2 mg neostigmine (BLOXIVERZ) injection PRN, Starting on Wed12/20/17 at 0953, Until Wed12/20/17 at 1032, Anesthesia Intra-op, Routine Given 12/20/2017 9:53 AM EDT 3 mg ondansetron (ZOFRAN) injection PRN, Starting on Wed12/20/17 at 0935, Until Wed12/20/17 at 1032, Nausea, Anesthesia Intra-op, Routine Given 12/20/2017 9:35 AM EDT 4 mg propofol (DIPRIVAN) 10 mg/mL bolus injection (Anesthesia) PRN, Starting on Wed12/20/17 at 0752, Until Wed12/20/17 at 1032, Anesthesia Intra-op Given 12/20/2017 7:56 AM EDT 50 mg Given 12/20/2017 7:52 AM EDT 150 mg rocuronium (ZEMURON) multi-dose injection PRN, Starting on Wed12/20/17 at 0753, Until Wed12/20/17 at 1032, Anesthesia Intra-op, Routine Given 12/20/2017 8:46 AM EDT 20 mg Given 12/20/2017 7:53 AM EDT 50 mg documented in this encounter Care Teams Client Integration Manager Relationship Specialty Start Date End Date Keiko Reddy MD [address] [address] PCP - General Family Medicine 06/18/17 05/15/18 documented as of this encounter
--- OUTSIDE RECORDS SUMMARY | 2023-12-15 01:17 | XMS_ITS | Encounter Summary ---
Author Organization [facility] Address [facility] [place] [address] Care Team Providers Care Clinical Specialist Vascular Name Role Phone Keiko Reddy MD Primary Care Provider [phone] Reason for Visit * Reason Comments Hospital Transfer Trauma Alert * Auth/Cert Specialty Diagnoses / Procedures Referred By Contac t Referred To Contact Diagnoses Trauma right tibial plateau fracture Procedures @ORIF TIBIAL PLATEAU (PROXIMAL) UNICONDYLAR (WRVU 13.41) MODIFIER TIBIA ANA SYSTEM SYNTHES MODIFIER PROXIMAL LOCKING TIBIA PLATES SYNTHES MODIFIER LOCKING MEDIAL PROXIMAL TIBIA PLATES SYNTHES Referral ID Status Reason Start Date Expiration Date Visits Re quested Visits Authorized [id number] 1 1 Encounter Details Date Type Department Care Team (Latest Contact Info) Description 12/13/2017 11:51 PM EDT - 12/24/2017 2:11 PM EDT Hospital Encounter [address] [place] [address] Russell Lewis MD [facility] [place] [address] Reinaldo Romero MD [facility] [place] [address] Fracture of radius, right, closed [facility]position[facility] Social History Tobacco Use Types Packs/Day Years [...] Sign Reading Time Taken Comments Blood Pressure 93/64 12/24/2017 12:57 PM EDT Pulse 82 12/20/2017 12:30 PM EDT Temperature 36.7 ??C (98.1 ??F) 12/24/2017 12:00 PM E DT Respiratory Rate 17 12/24/2017 12:00 PM EDT Oxygen Saturation 97% 12/24/2017 12:00 PM EDT Inhaled Oxygen Concentration - - Weight 74.8 kg (165 lb) 12/14/2017 3:55 AM EDT Height 165.1 cm (5' 5) 12/14/2017 3:55 AM EDT Body Mass Index 27.46 12/14/2017 3:55 AM EDT documented in this encounter Discharge Summaries * Kathy Preston PA - 12/17/2017 5:40 PM EDT Discharge Summary Patient Name: Daphne Pickard Patient Age: 52 y.o. Language: Guinean Race: White Ethnicity: Not nor Admit date: 12/13/2017 Discharge date and time: 12/24/2017 Attending Physician: Reinaldo Romero MD Discharge Physician: Reinaldo Romero MD Follow-up Recommendations for Providers: See discharge instructions for additional details. Future Appointments Date Time Provider Department Center 01/04/2018 7:30 AM [facility] DX ROOM 9 [facility] 01/04/2018 7:45 AM [facility] DX ROOM 9 [facility] 01/04/2018 8:00 AM [facility] DX ROOM 9 [facility] 01/04/2018 9:45 AM [facility] DX ROOM 3 [facility] 01/04/2018 10:00 AM [facility] DX ROOM 3 [facility] 01/04/2018 10:15 AM [facility] DX ROOM 3 [facility] 01/04/2018 11:00 AM Heather Colon PA [facility] [address] [place] [address] Inpatient Provider Contact Information: Reinaldo Romero MD Orthopedics: [phone] After hours and weekends, call [facility] [employer], , and have the Orthopedic resident paged. Discharge Diagnoses (Hospital Problems) and Secondary Diagnoses (Chronic Problems): Active Hospital Problems Diagnosis ??? 12/14/2017 ORIF right tibial plateau fx (Dr. Bass) ??? Postoperative anemia due to acute blood loss ??? Trauma ??? 12/14/2017 ORIF right distal radius fracture (Dr. Bass) ??? 12/20/2017 ORIF left acetabulum for closed fracture of posterior wall of left acetabulum (Dr. Talamantes) Resolved Hospital Problems Diagnosis Date Resolved No resolved problems to display. There are no active non-hospital problems to display for this patient. Operations/Major Procedures: 12/14/2017 Surgeon(s) and Role: * Reinaldo Romero MD - Primary * Joyce Parra MD * Kimani Dobson MD Procedure(s): @ORIF TIBIAL PLATEAU (PROXIMAL) UNICONDYLAR ORIF DISTAL RADIUS, 3 OR MORE FRAGMENTS MODIFIER VARIABLE ANGLE DISTAL RADIUS SYNTHES MODIFIER, 3.5 VA PROXIMAL TIBIAL PLATES, SYNTHES HIP INTRAOP RADIOLOGIC EXAMINATION, UNILATERAL, W PELVIS; 1 VIEW ??12/20/2017 Surgeon(s) and Role: ?* Tete Talamantes MD - Primary ?* Kimani oDbson MD ?* Joyce Parra MD Procedure(s) (LRB): @OPEN TREATMENT, ACETABULAR FX (Left) MODIFIER LOCKING SMALL FRAGMENT SYNTHES (Left) MODIFIER PELVIC RECONSTRUCTION PLATE SYNTHES (Left) History of Presentation: Daphne Pickard is a 52 y.o. female who unfortunately suffered multiple orthopedic injuries secondary to a fall from a horse. Her injuries included a right tibial plateau fracture, right distal radius fracture, and a left acetabulum fracture. Her right tibial plateau and distal radius fractures were addressed on 12/14/[address] Reinaldo Romero. On 12/20/2017 the risks and benefits of surgical fixation of her left acetabular fracture were discussed and she elected to proceed. ?? Injury Intervention Follow-up Right tibial plateau fx Ortho consult 12/14 ORIF Ortho clinic Left posterior wall acetabulum fx s/p ORIF left acetabulum 12/20 As above Right distal radius fx Ortho consult Splint applied in ED 12/14 ORIF As above ? Other In-hospital Issues: - Acute blood loss anemia - Acute Pain - Chronic depression ?? Hospital Course: Daphne Pickard was admitted from the Emergency Department for evaluation and treatment of the above injuries. On HD#2 and HD#8 she was taken to surgery for the above procedures. She tolerated the procedures and did well post- operatively. On POD#1 the ROLLER SKATE REPAIRER was discontinued and the patient was started on oral pain medications. The patient was referred to PT for mobility training - non-weight bearing of bilateral legs and platform weight bearing through the right elbow. The ramirez was removed andthe patient was voiding spontaneously in good amounts. She did have a bowel movement prior to discharge and was passing flatus and was taking po without difficulty. On POD#4 the patient was medically clear with stable vital signs and determined safe for discharge to residential facility. Vital Signs at Discharge: Weight: Wt Readings from Last 1 Encounters: /24/18 74.8 kg (165 lb) Height: Ht Readings from Last 1 Encounters: /24/18 165.1 cm (5' 5) HC: HC Readings from Last 1 Encounters: No data found for HC BMI: Body mass index is 27.46 kg/(m^2). Last value Range last 24 hrs Temperature Temp: 36.7 ??C (98.1 ??F) Temp: [36.7 ??C (98.1 ??F)-37.6 ??C (99.7 ??F)] Heart Rate Heart Rate: 82 Heart Rate: -- Blood Pressure BP: (!) 89/61 BP: (88-100)/(57-64) Respiratory Rate Resp: 17 Resp: [14-17] SpO2 SpO2: 97 % SpO2: [94 %-97 %] Art BP BP (Arterial Line): -- Functional and Cognitive Status: Patient mobilizing with lift by staff from bed to chair, cognitively intact at baseline mental status at time of discharge. Important Lab Data: Last 3 wbc, hgb, hct plt Recent Labs 12/22/17 0956 12/21/17 0704 12/17/17 0655 WBC 7.0 6.8 7.0 HGB 9.1* 8.7* 10.9* HCT 27.1* 25.6* 31.1* PLATELET 309 253 195 Last 3 Lytes Recent Labs 12/22/17 0956 12/21/17 0704 12/17/17 0655 NA 135 138 142 K 4.0 3.9 3.9 CL 97* 100 102 CO2 25 25 26 BUN 11 15 11 CREATININE 0.73 0.73 0.63* Studies: Xray Pelvis Judet Or In Out 3 Views Result Date: 12/14/2017 EXAMINATION: XR PELVIS JUDET OR IN OUT 3 VIEWS CLINICAL HISTORY: left posterior wall acetabular fracture, eval alignment., NO AP NECESSARY, only judet views x 2 (obturator and iliac obliques) TECHNIQUE: 3 views COMPARISON: CT scan from December 13, 2017 FINDINGS: Unchanged minimally displaced left posterior acetabular wall fracture. Marginal osteophytes in bilateral hips are unchanged. Both hip joint spaces are relatively preserved. SI joints: Normal. Minimally displaced left posterior acetabular wall fracture. Xray Pelvis Judet Or In Out 3 Views Result Date: 12/14/2017 EXAMINATION: XR PELVIS JUDET OR IN OUT 3 VIEWS CLINICAL HISTORY: Fall from horse. Posterior left acetabular wall fracture. AP pelvis and Judet views for pre-op planning TECHNIQUE: AP, inlet and outlet views of the pelvis. COMPARISON: CT of the chest, abdomen and pelvis 12/13/2017. FINDINGS: There rylee subtle lucency which projects over the posterior left acetabular wall, corresponding to the nondisplaced posterior left acetabular wall fracture which is better characterized on the prior CT. No additional fractures of the pelvis or proximal femurs are identified. No dislocation. The sacroiliac joints are normal. There is mild bilateral hip osteoarthropathy characterized by small marginal osteop hytes. No hip joint space narrowing. Nondisplaced left posterior acetabular wall fracture. I have personally reviewed the image(s) and the residents interpretation and agree with the findings, Nayely Hernández at 12/14/2017 9:01 AM Request For 2nd Read Ct Chest Abdomen Pelvis Result Date: 12/13/2017 EXAMINATION: REQUEST FOR 2ND READ CT CHEST ABDOMEN PELVIS, REQUEST FOR 2ND READ CT SPINE CLINICAL HISTORY: s/p fall; What Modality is the exam? CT Scan; Body Part (please add comments as necessary): chest abdomen pelvis; I believe a reinterpretation of this exam may alter care of Patient. Yes TECHNIQUE: Reinterpretation request for outside: * CT chest/abdomen/pelvis with intravenous contrast. Absence of enteric contrast renders suboptimal assessment of bowel lumen and surrounding soft tissue structures/viscera. * CT thoracic spine reconstructions. * CT lumbar spine reconstructions. COMPARISON: None FINDINGS: CHEST: Lungs/Pleura: Hypoventilatory dependent changes, slightly more prominent in the lingula. No confluent airspace opacity otherwise identified. No pleural effusion or pneumothoraxseen. Mediastinum/Margo: Unremarkable. Heart: Unremarkable. Vasculature: Nonaneurysmal thoracic aorta. ABDOMEN/PELVIS: Liver: Nonspecific millimetric hypodensity too small to characterize. Gallbladder: Unremarkable. Spleen: Unremarkable. Pancreas: Unremarkable. Adrenal Glands: Unremarkable. Kidneys:Unremarkable. Urinary bladder: Unremarkable. GI: Nonspecific mildly prominent RIGHT lower quadrant small bowel loops with some air-fluid levels. Mesentery/Peritoneum: No free air identified. No free fluid seen. Lymphatic System: No lymphadenopathy identified. Vasculature: Nonaneurysmal abdominal aorta. Nonspinal Osseous Structures: Mildly displaced acute fracture of the LEFT acetabular posterior wall. Thoracic spine: No acute fracture or traumatic malalignment appreciated on the coronal/sagittal images; axial images excluded portions of the spine throughout. Lumbar spine: No acute fracture ortraumatic malalignment appreciated on the coronal/sagittal images; axial images excluded large portions of the spine throughout. 1. Mildly displaced acute fracture of the LEFT acetabular posterior wall. 2. No acute thoracic /lumbar vertebral osseous injury identified; however, the axial images exclude large portions of the spine throughout rendering suboptimal assessment. Electronically signed by: Jhonatan Napier Radiology,at 12/13/2017 11:35 PM Request For 2nd Read Ct Head And Spine Result Date: 12/13/2017 EXAMINATION: REQUEST FOR 2ND READ CT HEAD AND SPINE CLINICAL HISTORY: s/p fall; What Modality is the exam? CT Scan; Body Part (please add comments as necessary): head c spine; I believe a reinterpretation of this exam may alter care of Patient. Yes TECHNIQUE: Reinterpretation request for outside: * Noncontrast CT head. * Noncontrast CT cervical spine. COMPARISON: None FINDINGS: HEAD: Scott-white interface appears relatively well differentiated. Lateral ventricles appear relatively symmetric. Basal cisterns appear patent. No global mass effect, midline shift, herniation, large space-occupying process appreciated. No acute intracranial hemorrhage identified. Included paranasal sinuses: Mild scattered mucosal thickening. Mastoid air cells: Clear. Calvarium: No depressed fracture seen. Extracranial soft tissues: Unremarkable. CERVICAL SPINE: Alignment: No evidence of acute traumatic malalignment. Vertebrae: No acute fracture identified. Intervertebral disc spaces: Preserved. Prevertebral soft tissues: Unremarkable. No acute intracranial hemorrhage, depressed calvarial fracture, or cervical vertebral osseous injury identified. Request For 2nd Read Ct Spine Result Date: 12/13/2017 EXAMINATION: REQUEST FOR 2ND READ CT CHEST ABDOMEN PELVIS, REQUEST FOR 2ND READ CT SPINE CLINICAL HISTORY: s/p fall; What Modality is the exam? CT Scan; Body Part (please add comments as necessary): chest abdomen pelvis; I believe a reinterpretation of this exam may alter care of Patient. Yes TECHNIQUE: Reinterpretation request for outside: * CT chest/abdomen/pelvis with intravenous contrast. Absence of enteric contrast renders suboptimal assessment of bowel lumen and surrounding soft tissue structures/viscera. * CT thoracic spine reconstructions. * CT lumbar spine reconstructions. COMPARISON: None FINDINGS: CHEST: Lungs/Pleura: Hypoventilatory dependent changes, slightly more prominent in the lingula. No confluent airspace opacity otherwise identified. No pleural effusion or pneumothoraxseen. Mediastinum/Margo: Unremarkable. Heart: Unremarkable. Vasculature: Nonaneurysmal thoracic aorta. ABDOMEN/PELVIS: Liver: Nonspecific millimetric hypodensity too small to characterize. Gallbladder: Unremarkable. Spleen: Unremarkable. Pancreas: Unremarkable. Adrenal Glands: Unremarkable. Kidneys:Unremarkable. Urinary bladder: Unremarkable. GI: Nonspecific mildly prominent RIGHT lower quadrant small bowel loops with some air-fluid levels. Mesentery/Peritoneum: No free air identified. No free fluid seen. Lymphatic System: No lymphadenopathy identified. Vasculature: Nonaneurysmal abdominal aorta. Nonspinal Osseous Structures: Mildly displaced acute fracture of the LEFT acetabular posterior wall. Thoracic spine: No acute fracture or traumatic malalignment appreciated on the coronal/sagittal images; axial images excluded portions of the spine throughout. Lumbar spine: No acute fracture ortraumatic malalignment appreciated on the coronal/sagittal images; axial images excluded large portions of the spine throughout. 1. Mildly displaced acute fracture of the LEFT acetabular posterior wall. 2. No acute thoracic /lumbar vertebral osseous injury identified; however, the axial images exclude large portions of the spine throughout rendering suboptimal assessment. Electronically signed by: Jhonatan Napier Radiology,at 12/13/2017 11:35 PM Request For 2nd Read Dx Knee Result Date: 12/13/2017 EXAMINATION: REQUEST FOR 2ND READ DX KNEE CLINICAL HISTORY: s/p fall; What Modality is the exam? Diagnostic; Body Part (please add comments as necessary): leg; I believe a reinterpretation of this exam may alter care of Patient. Yes COMPARISON: None TECHNIQUE/FINDINGS/IMPRESSION: Frontal, oblique, and crosstable lateral views of the RIGHT knee: Comminuted fracture of the tibial plateau, predominantly involving the lateral aspect extending to themetaphysis as well as the region of the tibial spines with intra-articular extension. Fracture linemay be extending across the medial aspect. Hemarthrosis. Oblique and lateral views of the LEFT kneedemonstrate no obvious displaced fracture although assessment is suboptimal including nonspecific lucency at the tibial plateau which may or may not represent nondisplaced fracture. Request For 2nd Read Dx Wrist Result Date: 12/13/2017 EXAMINATION: REQUEST FOR 2ND READ DX WRIST CLINICAL HISTORY: s/p fall; What Modality is the exam? Diagnostic; Body Part (please add comments as necessary): wrist/arm; I believe a reinterpretation of this exam may alter care of Patient. Yes TECHNIQUE: Reinterpretation request for outside 3 RIGHT wrist radiographs COMPARISON: None FINDINGS/IMPRESSION: Comminuted intra-articular fracture of the distal radial metaphysis with minimal displacement as well as minimal dorsal angulation of the distal components. Electronically signedby: Jhonatan Napier [facility], at 12/13/2017 11:44 PM Xray Forearm Right (generic) Result Date: 12/14/2017 EXAMINATION: XR FOREARM RIGHT (GENERIC) CLINICAL HISTORY: evaluate entire forearm TECHNIQUE: 3 views COMPARISON: None FINDINGS/IMPRESSION: Cast material obscures osseous and soft tissue detail. Distal radial fracture has been previously described. Question mild irregularity at the proximal radial head/neck versus artifact; correlate with history and regional physical examination. Xray Shoulder Right (generic) Result Date: 12/14/2017 EXAMINATION: XR SHOULDER RIGHT (GENERIC) CLINICAL HISTORY: right shoulder pain s/p fall off horse TECHNIQUE: 4 views COMPARISON: None FINDINGS/IMPRESSION: No acute fracture or dislocation identified. Xray Tibia Fibula Right (generic) Result Date: 12/14/2017 EXAMINATION: XR TIBIA FIBULA RIGHT (GENERIC) CLINICAL HISTORY: right tibial plateau, eval entire tib fib TECHNIQUE: Frontal and lateral COMPARISON: Knee radiographs December 13, 2017 FINDINGS/IMPRESSION Proximal tibial fracture described on comparison radiographs. No other fracture identified. Xray Wrist 2 Views Right Result Date: 12/14/2017 EXAMINATION: XR WRIST 2 VIEWS RIGHT CLINICAL HISTORY: s/p reduction DRF TECHNIQUE: PA and crosstable lateral views of the right wrist COMPARISON: Right wrist radiographs dated 12/13/2017 FINDINGS/IMPRESSION: Cast material obscures osseous and soft tissue detail, with improved now near-anatomic alignment of the previously described distal radial fracture. Preliminary report signed by:Ninfa Mcpherson at 12/14/2017 2:48 AM I have personally reviewed the image(s) and the residents interpretation and agree with the findings, Jhonatan Napier at 12/14/2017 3:18 AM Xray Wrist Complete Min 3 Views Right (generic) Result Date: 12/14/2017 EXAMINATION: XR WRIST COMPLETE MIN 3 VIEWS RIGHT (GENERIC) CLINICAL HISTORY: Right distal radius fx, s/p ORIF. Thanks! TECHNIQUE: 3 views right breast COMPARISON: 12/14/2017 FINDINGS: Distal radius fracture extending to the articular surface is now traversed by fixation plate and screws and visualized through overlying casting material that obscures bony detail. Alignment is near- anatomic. There is question minimal displacement the distal fragment identified only in the frontal projection. No evidence of complication status post ORIF distal radius fracture Ct Knee Wo Contrast Right (generic) Result Date: 12/14/2017 EXAMINATION: CT KNEE WO CONTRAST RIGHT (GENERIC) CLINICAL HISTORY: Fracture, for operative planningTECHNIQUE: CT scan of the right knee without intravenous contrast. 3D recons were performed on a separate workstation and saved to the PACS. COMPARISON: 12/13/17 right knee radiographs; 12/14/17 right tibia/fibula radiographs FINDINGS: Comminuted tibial plateau fracture with vertical fracture line extending to the lateral tibial plateau and intercondylar tibial eminence. No medial tibial plateau involvement. I measure the lateral tibial plateau depression at 1.1 cm on series 601 image 36. Lipohemarthrosis. Schatzker II tibial plateau fracture with vertical fracture line extending to the lateral tibial plateau and intercondylar tibial eminence. No medial tibial plateau involvement. I measure the lateraltibial plateau depression at 1.1 cm on series 601 image 36. Xray Knee 1-2 Views Right (generic) Result Date: 12/14/2017 EXAMINATION: XR KNEE 1-2 VIEWS RIGHT (GENERIC) CLINICAL HISTORY: Right tibial plateau fx, s/p ORIF.Thanks! TECHNIQUE: Frontal and lateral views of the right knee COMPARISON: CT of the right knee 12/14/2017 and plain films from the same day FINDINGS: Status post ORIF right lateral tibial plateau with plate and screw fixation. Alignment is now anatomic. The lateral tibial plateau is no longer depressed. The fracture line remains visible, though is largely obscured by the adjacent metallic hardware. There is lateral subcutaneous soft tissue swelling, intra-articular gas, and overlying skin zuleyka, expected postoperative findings. Status post ORIF right lateral tibial plateau fracture without evidence of complication. Lateral tibial plateau depression has been corrected and alignment is now near anatomic. Electronically signedby: JEREMY COVINGTON Radiology, at 12/14/2017 3:54 PM Pending Studies and Lab Data at Discharge: None Transfusions: No Discharge Conditions/Prognosis: Stable, awake, and alert. Mobilizing as noted above, pain controlled on oral medications. [facility] to: [facility] Address: [address] [place] [address] [place] [address] Updated Allergies/ADRs: No Known Allergies Immunizations Given this Hospitalization: There is no immunization history on file for this patient. Discharge Medications: Your Medications New Medications Dose Details acetaminophen 500 mg Tab Commonly known as: TYLENOL Take 2 tablets by mouth every 6 hours. Continue the Tylenol around the clock for 10 days after surgery, (12/30/2017). Then may take if needed per package insert. Do not take more than 3,000 mg of Tylenol in 24 hours. 1000 mg Refills: 0 bisacodyl 10 mg Supp Commonly known as: DULCOLAX Place 1 suppository rectally daily as needed (constipation). 10 mg Refills: 0 cyclobenzaprine 10 mg Tab Commonly known as: FLEXERIL Take 1 tablet by mouth 3 times daily as needed for Muscle spasms. 10 mg Refills: 0 enoxaparin 30 mg/0.3 mL Syrg Commonly known as: LOVENOX Inject 0.3 mLs subcutaneously 2 times daily for 28 days. Take daily for 30 days after surgery. Lastday = 01/19/2018. 30 mg Quantity: 16.8 mL Refills: 0 magnesium citrate Soln Take 300 mLs by mouth daily as needed (constipation). 300 mL Refills: 0 oxyCODONE 5 mg Tab Commonly known as: ROXICODONE Take 1-3 tablets by mouth every 3 hours as needed for Pain (mild pain (2-3) take 5 mg, moderate pain (4-6) take 10 mg, severe pain (7-10) take 15 mg). 5-15 mg Quantity: 30 tablet Refills: 0 polyethylene glycol 17 gram Pwpk Commonly known as: MIRALAX Take 17 g by mouth daily as needed. 17 g Refills: 0 senna-docusate 8.6-50 mg Tab Commonly known as: PERICOLACE Take 2 tablets by mouth 2 times daily. 2 tablet Refills: 0 Smoking Status at Discharge: History Smoking Status ??? Former Smoker ??? Types: Cigarettes ??? Quit date: 06/25/2010 Smokeless Tobacco ??? Never Used Instructions for Rehab Providers or PCP: 1. Anticoagulation: LOVENOX : Take 40mg SQ daily for 30 days. Last day - 01/19/18 2. Activity: Non weight bearing bilateral lower extremities. De Baca Brace locked in extension right lower extremity. May use right upper casted arm to assist with transfers. Will need slide board orlift to transfer from bed to chair/wheelchair with staff assistance. When reclining in bed, may open the Bishnu Brace 1-2 times a day to inspect the skin. Re-secure the De Baca after. 3. Diet: Regular but increase fluids and fiber while on narcotic pain meds 4. Zuleyka/Sutures: Absorbable sutures right lower leg and upper arm. Removal not needed. [place] left hip to be removed in 14 days (~01/03/2018). 5. Dressing: Left hip Mepilex remove in 7 days (12/27/2017). Incision may stay open to air or cover with a light dry sterile dressing for comfort. Dressings right lower extremity - regular Mepilex may be changed every 2-3 days and prn or if no drainage may be left open to air. Keep cast on and clean and dry until Ortho f/u appointment. 6. Shower: May shower BUT only if can keep the right upper extremity cast dry and intact with a waterproof plastic bag. Cover left hip dressing with waterproof dressing until zuleyka are removed. Brillion plastic bag taped at the top over the right lower extremity De Baca brace should be done to keep the Bishnu and wound dry. DO NOT submerge the wound. Remember you MUST observe your weight bearing status and activity limitations when you shower so use a chair or bench for balance if you are unable to safely stand. A sponge bath may be easier. DO NOT submerge the dressing/incision. 7. Aggressive bowel regimen - LBM = 12/20/2017. 8. Physical therapy/Ocupational therapy twice a day 7 days per week 9. Ramirez to gravity - remove JUDE and monitor voiding with bladder scanning. 10. Wean narcotics as able. Instructions Given to Patient at Discharge: Patient Instructions Orthopedic Surgery Discharge Instructions Activity level: 1. You are Non-weight bearing on both of your legs. 2. Keep the De Baca Brace on your right leg locked in extension. When reclining in bed, may open the De Baca Brace 1-2 times a day to inspect the skin. Re- secure the De Baca after. 3. Remember to use a slide board or a lift to assist you in transferring from bed to chair/wheelchair.. 4. Remember to keep both of your legs and right upper extremity elevated as much as possible to decrease swelling and control pain. 5. You may use the right upper extremity to assist with transfers. Anticoagulation: You have been discharged on Lovenox injections (40mg daily) for 30 days. This injection will help decrease your chance of developing a blood clot. After your dose on 01/19/2018, stop the Lovenox. Diet: You may return to your usual [...] time. Call your surgeonwith any questions/concerns. Medications: 1. The pain medication you are on can cause constipation so increase your intake of fluids and fiber while you are on them. The stool softener, Pericolace, that has been prescribed can also be taken to facilitate a bowel movement. You can also take an ixwd-hwf-immylqx medication, Miralax if needed to combat constipation. 2. If you need a renewal on your narcotic pain medication, you need to give the Orthopedic clinic enough time to process your request. This can take up to three days, so plan accordingly. 3. Continue acetaminophen (Tylenol) 1,000mg every 8 hours around the clock until 12/30/17. This can be effective in controlling pain along with your other medications. After that you can take Tylenol as needed per package insert. Do not take more than 3,000mg of acetaminophen in a 24 hour period. 4. You have been discharged on a short acting narcotic, Oxycodone. You will be on this medication for a limited period of time only. Taper off this medication as your pain improves. 5. Do not take any NSAIDs including ibuprofen, Motrin or Aleve as this can interfere with bone healing. Shower/Bath: You may shower BUT only if can keep the right upper extremity cast dry and intact witha waterproof plastic bag. Cover left hip dressing with waterproof dressing until zuleyka are removed. Brillion plastic bag taped at the top over the right lower extremity Bishnu brace should be done to keep the De Baca and wound dry. DO NOT submerge the wound. Remember you MUST observe your weight bearing status and activity limitations when you shower so use a chair or bench for balance if you are unable to safely stand. A sponge bath may be easier. Wound (Mepilex): 1. Left hip staple/suture removal 2 weeks after surgery (approximately 01/03/2018). Your sutures in your right arm and right leg do not need to be removed. They are absorbable. 2. Do not lift the edge of the Mepilex dressing to the right knee and left hip to inspect the incision, they will not re-adhere. Remove your operative dressing 7 days from your surgery (right knee 12/21/2017, left hip 12/27/2017). When they are removed you can leave the incision open to air or cover it with a light dressing. 3. If you have lots of drainage when you get home (and it is before 12/21/2017, or 12/27/2017), removethe operative dressings and replace them with dry sterile gauze. Continue with daily dressing changes (and as needed) until the drainage stops, then remove the dressing and leave the incision open toair or lightly covered. Cast/Splint Care: Keep the right arm cast in place until your follow-up with Orthopedics. Keep the cast clean and dry. It is easiest to sponge bathe, but if you must bathe, protect the cast/splint with a plastic bag high above the cast or splint and secure with adhesive tape. Do not submerge the cast in water at anytime. If the cast accidently gets wet, call the office immediately to have it replaced. A wet cast can cause severe skin and wound problems. Call your doctor ([phone]) if you develop: 1. Fever greater than 100.5 2. Severe nausea or vomiting 3. Increasing pain that is not controlled by pain medications 4. Increasing redness, swelling, or drainage from incisions 5. Change in sensation Ramirez Catheter: Because you were unable to urinate at all on your own, a ramirez catheter was inserted on 12/21/2017. You will be discharged to rehab with the catheter in place. In approximately 5 days, (12/26/2017), your catheter will be removed and a voiding trial will be done to make sure you are able to urinate on your own. Misc: 1. If you are a smoker, quitting is very important to help your fracture heal. You should contact your PCP to assist you with setting up a cessation program. 2. Remember that ICE and elevation are very important to help decrease swelling and control pain. You should use the ICE for 20-30 minutes at a time. 3. To help with bone healing and your overall bone health, your intake of calcium should be at least 1200mg a day and your vitamin D intake should be at least 800 IU per day. FOLLOW-UP APPOINTMENTS: 1. You will have follow-up appointments at [facility] [place] [facility] as indicated in Future Appointment and Orders. Future Appointments Date Time Provider Department Center 01/04/2018 7:30 AM [facility] 01/04/2018 7:45 AM [facility] 01/04/2018 8:00 AM [facility] 01/04/2018 9:45 AM [facility] 01/04/2018 10:00 AM [facility] 01/04/2018 10:15 AM [facility] 01/04/2018 11:00 AM Heather Colon PA [facility] If you have questions or concerns: Wednesday through Wednesday, 8 AM - 5 PM, please call Wenceslao Burnett MD's office at . If it is after 5 PM or on the weekend, please call and ask to speak with the Orthopedic resident on-call. General Instructions None Future Appointments and Orders Future Appointments Provider Department Dept Phone 01/04/2018 7:30 AM [facility] [phone] Please go to [facility] ([facility] Location). 01/04/2018 7:45 AM [facility] [phone] Please go to [facility] ([facility] Location). 01/04/2018 8:00 AM [facility] [phone] Please go to [facility] ([facility] Location). 01/04/2018 9:45 AM [facility] [phone] Please go to [facility] ([facility] Location). 01/04/2018 10:00 AM [facility] [place] [phone] Please go to [facility] ([facility] Location). 01/04/2018 10:15 AM [facility] [place] [phone] Please go to [facility] ([facility] Location). 01/04/2018 11:00 AM Heather Colon PA [facility] [phone] Future Orders Complete By Expires Full code [COD2 Custom] As directed Process Instructions: 1. Completing this order indicates that the recording provider had a discussion with the patient and/or their agent regarding their wishes for resuscitation. 2. If the patient does not have decision making capacity, the provider must document within the order and in the contemporaneous progress note which of the patient's agents the discussion was held with. 3. If this Full Code Order is a revocation or cancellation of a previous DNR order and the providerrecording this order in the system is not the Attending of Record, then the recording provider willhave discussed this order with the Attending of Record and is documenting the decision of the Attending of Record obtained through explicit verbal review. Scheduling Instructions: Questions: Does patient have capacity to make decision: Yes Content of discussion: Primary Care Provider: Keiko Reddy MD [phone] Discharge References/Attachments INDWELLING URINARY CATHETER CARE: GENERAL INFO (EMIRATI) documented in this encounter Discharge Instructions * Patient Instructions* Kathy Preston PA - 12/15/2017 11:04 AM EDT Orthopedic Surgery Discharge Instructions Activity level: 1. You are Non-weight bearing on both of your legs. 2. Keep the Bishnu Brace on your right leg locked in extension. When reclining in bed, may open the Bishnu Brace 1-2 times a day to inspect the skin. Re- secure the De Baca after. 3. Remember to use a slide board or a lift to assist you in transferring from bed to chair/wheelchair.. 4. Remember to keep both of your legs and right upper extremity elevated as much as possible to decrease swelling and control pain. 5. You may use the right upper extremity to assist with transfers. Anticoagulation: You have been discharged on Lovenox injections (40mg daily) for 30 days. This injection will help decrease your chance of developing a blood clot. After your dose on 01/19/2018, stop the Lovenox. Diet: You may return to your usual [...] time. Call your surgeonwith any questions/concerns. Medications: 1. The pain medication you are on can cause constipation so increase your intake of fluids and fiber while you are on them. The stool softener, Pericolace, that has been prescribed can also be taken to facilitate a bowel movement. You can also take an hffk-qpr-kebzbhi medication, Miralax if needed to combat constipation. 2. If you need a renewal on your narcotic pain medication, you need to give the Orthopedic clinic enough time to process your request. This can take up to three days, so plan accordingly. 3. Continue acetaminophen (Tylenol) 1,000mg every 8 hours around the clock until 12/30/17. This can be effective in controlling pain along with your other medications. After that you can take Tylenol as needed per package insert. Do not take more than 3,000mg of acetaminophen in a 24 hour period. 4. You have been discharged on a short acting narcotic, Oxycodone. You will be on this medication for a limited period of time only. Taper off this medication as your pain improves. 5. Do not take any NSAIDs including ibuprofen, Motrin or Aleve as this can interfere with bone healing. Shower/Bath: You may shower BUT only if can keep the right upper extremity cast dry and intact witha waterproof plastic bag. Cover left hip dressing with waterproof dressing until zuleyka are removed. Brillion plastic bag taped at the top over the right lower extremity De Baca brace should be done to keep the De Baca and wound dry. DO NOT submerge the wound. Remember you MUST observe your weight bearing status and activity limitations when you shower so use a chair or bench for balance if you are unable to safely stand. A sponge bath may be easier. Wound (Mepilex): 1. Left hip staple/suture removal 2 weeks after surgery (approximately 01/03/2018). Your sutures in your right arm and right leg do not need to be removed. They are absorbable. 2. Do not lift the edge of the Mepilex dressing to the right knee and left hip to inspect the incision, they will not re-adhere. Remove your operative dressing 7 days from your surgery (right knee 12/21/2017, left hip 12/27/2017). When they are removed you can leave the incision open to air or cover it with a light dressing. 3. If you have lots of drainage when you get home (and it is before 12/21/2017, or 12/27/2017), removethe operative dressings and replace them with dry sterile gauze. Continue with daily dressing changes (and as needed) until the drainage stops, then remove the dressing and leave the incision open toair or lightly covered. Cast/Splint Care: Keep the right arm cast in place until your follow-up with Orthopedics. Keep the cast clean and dry. It is easiest to sponge bathe, but if you must bathe, protect the cast/splint with a plastic bag high above the cast or splint and secure with adhesive tape. Do not submerge the cast in water at anytime. If the cast accidently gets wet, call the office immediately to have it replaced. A wet cast can cause severe skin and wound problems. Call your doctor ([phone]) if you develop: 1. Fever greater than 100.5 2. Severe nausea or vomiting 3. Increasing pain that is not controlled by pain medications 4. Increasing redness, swelling, or drainage from incisions 5. Change in sensation Ramirez Catheter: Because you were unable to urinate at all on your own, a ramirez catheter was inserted on 12/21/2017. You will be discharged to rehab with the catheter in place. In approximately 5 days, (12/26/2017), your catheter will be removed and a voiding trial will be done to make sure you are able to urinate on your own. Misc: 1. If you are a smoker, quitting is very important to help your fracture heal. You should contact your PCP to assist you with setting up a cessation program. 2. Remember that ICE and elevation are very important to help decrease swelling and control pain. You should use the ICE for 20-30 minutes at a time. 3. To help with bone healing and your overall bone health, your intake of calcium should be at least 1200mg a day and your vitamin D intake should be at least 800 IU per day. FOLLOW-UP APPOINTMENTS: 1. You will have follow-up appointments at [facility] as indicated in Future Appointment and Orders. Future Appointments Date Time Provider Department Center 01/04/2018 7:30 AM [facility] 01/04/2018 7:45 AM [facility] 01/04/2018 8:00 AM [facility] 01/04/2018 9:45 AM [facility] 01/04/2018 10:00 AM [facility] 01/04/2018 10:15 AM [facility] 01/04/2018 11:00 AM Heather Colon PA [facility] If you have questions or concerns: Wednesday through Wednesday, 8 AM - 5 PM, please call Wenceslao Burnett MD's office at . If it is after 5 PM or on the weekend, please call and ask to speak with the Orthopedic resident on-call. * Attachments The following attachments cannot be sent through Care Everywhere. * INDWELLING URINARY CATHETER CARE: GENERAL INFO (EMIRATI) documented in this encounter Medications at Time [...] of Tylenol in 24 hours. 12/24/2017 04/02/2022 bisacodyl (DULCOLAX) [address] 1 suppository rectally daily as needed (constipation). 12/24/2017 cyclobenzaprine (FLEXERIL) 10 mg Tablet Take 1 tablet by mouth 3 times daily as needed for Muscle spasms. 12/24/2017 01/04/2018 magnesium citrate Solution Take 300 mLs by mouth daily as needed (constipation). 12/24/2017 01/04/2018 oxyCODONE (ROXICODONE) 5 mg Tablet Take 1-3 tablets by mouth every 3 hours as needed for Pain (mild pain (2-3) take 5 mg, moderate pain (4-6) take 10 mg, severe pain (7-10) take 15 mg). 30 tablet 12/24/2017 01/04/2018 polyethylene glycol (MIRALAX) 17 gram Powder in Packet Take 17 g by mouth daily as needed. 12/24/2017 01/04/2018 senna-docusate (PERICOLACE) 8.6-50 mg Tablet Take 2 tablets by mouth 2 times daily. 12/24/2017 01/04/2018 documented as of this encounter Progress Notes * Pita Her RN - 12/24/2017 1:31 PM EDT Patient Name: Daphne Pickard Patient Age: 52 y.o. Birthdate: 1965 Admit date: 12/13/2017 Attending Physician: Reinaldo Romero MD IV removed, site benign. Pts assessment remains unchanged from previous assessment. Discussed pain management with patient, pain tolerable. Pt medicated prior to discharge. Pt has all belongings. Pt received discharge summary. This was reviewed. All questions answered. Discharge packet and prescriptions given to ambulance service. Pt discharged to rehab facility via ambulance. Report called and given to HAYLEY Barkley at [facility]. * Kaley Torres RN - 12/24/2017 11:57 AM EDT Office of Care Management/Manager Pricing Patient Name: Daphne Pickard : 1965 Patient has been offered a snf bed at [facility] for today. [facility] arranged for a 1:30 transport. 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 Info to accompany patient: Narcotic Prescriptions Copies of Medication Administration Records and IV sheets for past 10 days. Plan: Manager Pricing will be available to the patient and Him Coder-RN and/or Social Workerfor further assistance. Patient will be discharged to: [facility] [address] [place] [address] [id number] KALEY TORRES RN, Manager Pricing * Sol Boudreaux MD - 12/24/2017 4:44 AM EDT ORTHOPAEDIC SURGERY INPATIENT PROGRESS NOTE Patient Name: Daphne Pickard Age: 52 y.o. Surgery/Issue: ORIF right tibial plateau fx and ORIF right distal radius fx on 12/14, s/p ORIF left acetabulum 12/20 Attending: Heather Talamantes Date of surgery: 12/14/2017, 12/20/2017 SUBJECTIVE / INTERVAL HISTORY: - Pain controlled, notes some spasms that are improved with flexeril but still present - Ramirez in place. - Overall feels well, no new numbness/tingling - Afebrile, VSS (asymptomatic soft bps) - Awaiting rehab auth and looking forward to next step Active Hospital Problems Diagnosis ??? 12/14/2017 ORIF right tibial plateau fx (Dr. Bass) ??? Postoperative anemia due to acute blood loss ??? Trauma ??? 12/14/2017 ORIF right distal radius fracture (Dr. Bass) ??? 12/20/2017 ORIF left acetabulum for closed fracture of posterior wall of left acetabulum (Dr. Talamantes) Resolved Hospital Problems Diagnosis Date Resolved No resolved problems to display. MEDICATIONS: ??? oxyCODONE (ROXICODONE) immediate release tablet 5 mg OR oxyCODONE (ROXICODONE) immediate release tablet 10 mg OR oxyCODONE (ROXICODONE) immediate release tablet 15 mg ??? enoxaparin (LOVENOX) injection 30 mg ??? polyethylene glycol (MIRALAX) packet 17 g ??? lactulose (CHRONULAC) 20 gram/30 mL oral solution 20-40 g ??? bisacodyl (DULCOLAX) EC tablet 10 mg ??? magnesium citrate oral solution 300 mL OR magnesium citrate oral solution 300 mL ??? cyclobenzaprine (FLEXERIL) tablet 10 mg ??? sodium chloride 0.9 % flush 5 mL ??? sodium chloride 0.9 % flush 5-20 mL ??? lidocaine (XYLOCAINE) 10 mg/mL (1 %) injection 3 mg ??? naloxone (NARCAN) injection 0.2 mg ??? senna-docusate (PERICOLACE) 8.6-50 mg per tablet 2 tablet ??? bisacodyl (DULCOLAX) suppository 10 mg ??? acetaminophen (TYLENOL) tablet 1,000 mg ??? BUpivacaine (PF) (MARCAINE) 0.25 % (2.5 mg/mL) injection OBJECTIVE: Temp: [36.7 ??C (98.1 ??F)-37.6 ??C (99.7 ??F)] Resp: [14-16] BP: (88-98)/(57-64) Intake/Output Summary (Last 24 hours) at 12/24/17 0444 Last data filed at 12/24/17 0333 Gross per 24 hour Intake 690 ml Output 2350 ml Net -1660 ml Body mass index is 27.46 kg/(m^2). PE: General: Lying flat in bed in no acute distress, comfortable appearing, awake/alert, responds to questions appropriately. CV: Regular rate and rhythm by peripheral palpation. Resp: Breathing comfortably on room air. RUE: Short arm bivalved cast in place. Fingers exposed. Sensation intact to light touch in ax/m/u distributions. Reduced sensation in radial thumb. Motor intact to digit flexion/extension, AIN, PIN, IO. Brisk capillary refill distally, fingers warm/well-perfused. RLE: De Baca brace in place, locked in extension. Mepilex dressings clean and dry with minimal serosanguinous staining. Sensation intact to light touch in lat fem cut/fem/sural/saph/SP/DP/T distributions. Motor intact to FHL/EHL/TA. Brisk capillary refill distally, foot warm/well-perfused. Palpable pedal pulses. LLE: Mepilex dressing c/d/i Sensation intact to light touch in in lat fem cut/fem/sural/saph/SP/DP/T distributions Motor intact to ankle dorsiflexion/plantarflexion, EHL/FHL. Brisk capillary refill distally. Foot warm and well perfused. 2+ DP/PT Labs: Last 3 wbc, hgb, hct plt Recent Labs 12/22/17 0956 12/21/17 0704 12/17/17 0655 WBC 7.0 6.8 7.0 HGB 9.1* 8.7* 10.9* HCT 27.1* 25.6* 31.1* PLATELET 309 253 195 Last 3 Lytes Recent Labs 12/22/17 0956 12/21/17 0704 12/17/17 0655 NA 135 138 142 K 4.0 3.9 3.9 CL 97* 100 102 CO2 25 25 26 BUN 11 15 11 CREATININE 0.73 0.73 0.63* IMAGING: XR pelvis 12/20 with Judet views: S/p ORIF with anatomic alignment of posterior acetabulum fx ASSESSMENT / PLAN: Daphne Pickard is a 52 y.o. female s/p ORIF of the right distal radius and right tibial plateau on 12/14 and now 4 Days Post-Op from ORIF left posterior acetabulum fx. Progressing as expected. Awaiting rehab, referrals have been placed and awaiting auth. Activity: NWB BLE, slide board transfers and left posterior hip precautions. De Baca beace locked in extension to RLE. Patient may use the RUE in the cast for help with transfers. DVT prophylaxis: Lovenox 30mg BID . Closure: Zuleyka out in 2 weeks (~01/03) Dressing: Mepilex to RLE and LLE. Right short arm bivalved cast x4 weeks. Antibiotics: Periop Ancef. Sol Boudreaux MD 12/24/2017 * Faina Ortega RN - 12/23/2017 4:49 PM EDT Assumed care of patient at 1500. Resting comfortably in bed. One dose of flexeril given for bilat lower leg cramping. Assessment unchanged from previous RN, will continue to monitor. * Sol Boudreaux MD - 12/23/2017 6:03 AM EDT ORTHOPAEDIC SURGERY INPATIENT PROGRESS NOTE Patient Name: Daphne Pickard Age: 52 y.o. Surgery/Issue: ORIF right tibial plateau fx and ORIF right distal radius fx on 12/14, s/p ORIF left acetabulum 12/20 Attending: Heather Talamantes Date of surgery: 12/14/2017, 12/20/2017 SUBJECTIVE / INTERVAL HISTORY: - Pain continues to be better controlled this AM - Required ramirez placement overnight, likely keep when send to rehab - Overall feels well, no new numbness/tingling - Afebrile, VSS - Rehab referrals placed, [facility] going for auth Active Hospital Problems Diagnosis ??? 12/14/2017 ORIF right tibial plateau fx (Dr. Bass) ??? Postoperative anemia due to acute blood loss ??? Trauma ??? 12/14/2017 ORIF right distal radius fracture (Dr. Bass) ??? 12/20/2017 ORIF left acetabulum for closed fracture of posterior wall of left acetabulum (Dr. Talamantes) Resolved Hospital Problems Diagnosis Date Resolved No resolved problems to display. MEDICATIONS: ??? oxyCODONE (ROXICODONE) immediate release tablet 5 mg OR oxyCODONE (ROXICODONE) immediate release tablet 10 mg OR oxyCODONE (ROXICODONE) immediate release tablet 15 mg ??? enoxaparin (LOVENOX) injection 30 mg ??? polyethylene glycol (MIRALAX) packet 17 g ??? lactulose (CHRONULAC) 20 gram/30 mL oral solution 20-40 g ??? bisacodyl (DULCOLAX) EC tablet 10 mg ??? magnesium citrate oral solution 300 mL OR magnesium citrate oral solution 300 mL ??? cyclobenzaprine (FLEXERIL) tablet 10 mg ??? sodium chloride 0.9 % flush 5 mL ??? sodium chloride 0.9 % flush 5-20 mL ??? lidocaine (XYLOCAINE) 10 mg/mL (1 %) injection 3 mg ??? naloxone (NARCAN) injection 0.2 mg ??? senna-docusate (PERICOLACE) 8.6-50 mg per tablet 2 tablet ??? bisacodyl (DULCOLAX) suppository 10 mg ??? acetaminophen (TYLENOL) tablet 1,000 mg ??? BUpivacaine (PF) (MARCAINE) 0.25 % (2.5 mg/mL) injection OBJECTIVE: Temp: [36.9 ??C (98.4 ??F)-37.1 ??C (98.8 ??F)] Resp: [16-18] BP: (89-107)/(55-68) Intake/Output Summary (Last 24 hours) at 12/23/17 0620 Last data filed at 12/23/17 0600 Gross per 24 hour Intake 1960 ml Output 2900 ml Net -940 ml Body mass index is 27.46 kg/(m^2). PE: General: Lying flat in bed in no acute distress, comfortable appearing, awake/alert, responds to questions appropriately. CV: Regular rate and rhythm by peripheral palpation. Resp: Breathing comfortably on room air. RUE: Short arm bivalved cast in place. Fingers exposed. Sensation intact to light touch in ax/m/u distributions. Reduced sensation in radial thumb. Motor intact to digit flexion/extension, AIN, PIN, IO. Brisk capillary refill distally, fingers warm/well-perfused. RLE: De Baca brace in place, locked in extension. Mepilex dressings clean and dry with minimal serosanguinous staining. Sensation intact to light touch in lat fem cut/fem/sural/saph/SP/DP/T distributions. Motor intact to FHL/EHL/TA. Brisk capillary refill distally, foot warm/well-perfused. Palpable pedal pulses. LLE: Mepilex dressing c/d/i Sensation intact to light touch in in lat fem cut/fem/sural/saph/SP/DP/T distributions Motor intact to ankle dorsiflexion/plantarflexion, EHL/FHL. Brisk capillary refill distally. Foot warm and well perfused. 2+ DP/PT Labs: Last 3 wbc, hgb, hct plt Recent Labs 12/22/17 0956 12/21/17 0704 12/17/17 0655 WBC 7.0 6.8 7.0 HGB 9.1* 8.7* 10.9* HCT 27.1* 25.6* 31.1* PLATELET 309 253 195 Last 3 Lytes Recent Labs 12/22/17 0956 12/21/17 0704 12/17/17 0655 NA 135 138 142 K 4.0 3.9 3.9 CL 97* 100 102 CO2 25 25 26 BUN 11 15 11 CREATININE 0.73 0.73 0.63* IMAGING: XR pelvis 12/20 with Judet views: S/p ORIF with anatomic alignment of posterior acetabulum fx ASSESSMENT / PLAN: aDphne Pickard is a 52 y.o. female s/p ORIF of the right distal radius and right tibial plateau on 12/14 and now 3 Days Post-Op from ORIF left posterior acetabulum fx. Progressing as expected. Awaiting rehab, referrals have been placed and awaiting auth. Activity: NWB BLE, slide board transfers and left posterior hip precautions. Bishnu beace locked in extension to RLE. Patient may use the RUE in the cast for help with transfers. DVT prophylaxis: Lovenox 30mg BID . Closure: Zuleyka out in 2 weeks (~01/03) Dressing: Mepilex to RLE and LLE. Right short arm bivalved cast x4 weeks. Antibiotics: Periop Ancef. Sol Boudreaux MD 12/23/2017 * Sangeetha Page RN - 12/22/2017 3:46 PM EDT PT/OT notes completed and sent to facility. Awaiting authorization. * Sangeetha Page RN - 12/22/2017 2:03 PM EDT PT working with patient. Will await insurance auth once notes complete. * Katherin Beltrán DT - 12/22/2017 1:05 PM EDT Nutrition Services - Follow-up Note Daphne Pickard : 1965 AGE: 52 y.o. Patient Active Problem List Diagnosis Date Noted ??? Hospital-Postoperative anemia due to acute blood loss 12/21/2017 ??? Hospital-Trauma 12/14/2017 ??? Hospital-Fracture of right tibial plateau 12/14/2017 ??? Hospital-Radius/ulna fracture, right, closed, initial encounter 12/14/2017 ??? Hospital-Closed fracture of posterior wall of left acetabulum 12/14/2017 Reason for Nutrition Intervention: Follow-up Diet Order: Regular Appetite: Okay- per pt Food allergies: NKFA Chewing/Swallowing difficulty: None noted- per pt Ht Readings from Last 3 Encounters: 12/14/17 165.1 cm (5' 5) Wt Readings from Last 3 Encounters: 12/14/17 74.8 kg (165 lb) Body mass index is 27.46 kg/(m^2). Assessment: Patient seen for nutrition follow up. Pt informed of current Regular diet order w/o questions. She reported a good appetite stating, I eat when I'm hungry. I graze throughout the day. Pt noted no difficulty chewing or swallowing. She is tolerating current diet without nausea or vomiting. Pt stated she consumed cottage cheese, fruit, yogurt from home, chewy bites from home and cut upapple slices today. Pt stated her fiance has been bringing in food from home and placing in unit kitchen (yogurt, non- dairy milk, etc). Organ Grinder and pt discussed protein. Pt stated she is consuming protein in her daily nutrition. Pt requested to cancel Boost Plus shakes and fruits at this time she had been receiving for snacks. Organ Grinder canceled snacks per pt request. Nursing notes documenting 0-25%PO intakes on 12/21. Patient had no further questions at this time. Encouraged patient to contact Food and Nutrition services with any questions that may arise. Nutrition will continue to follow. Nutrition Plan: Continue current diet. Food from home in unit kitchen. Cut up all foods. Open meal containers. Recommend Daily Multi Vitamins. Encourage good po intake. Monitor weight. Support and encouragement provided. Nutrition services to follow weekly thru hospital course unless consulted in the interim. NICOLAS Clayton * Sangeetha Page RN - 12/22/2017 10:29 AM EDT Patient medically ready for rehab per provider. [facility] going for insurance authorization. Patient aware and agreable to plan. Will have to transport by ambulance because of injuries. PASSR signed. Packet completed. Sangeetha Page RN Case Manager, [facility] [place] [phone] Pager #[phone] * Nir Bhatti - 12/22/2017 5:55 AM EDT ORTHOPAEDIC SURGERY INPATIENT PROGRESS NOTE Patient Name: Daphne Pickard Age: 52 y.o. Surgery/Issue: ORIF right tibial plateau fx and ORIF right distal radius fx on 12/14, s/p ORIF left acetabulum 12/20 Attending: Heather Talamantes Date of surgery: 12/14/2017, 12/20/2017 SUBJECTIVE / INTERVAL HISTORY: - Pain better controlled this AM - Required ramirez placement overnight - Did not work with PT yesterday due to pain control issues - Labs pending this morning - Rehab referrals placed Active Hospital Problems Diagnosis ??? Postoperative anemia due to acute blood loss ??? Trauma ??? Fracture of right tibial plateau ??? Radius/ulna fracture, right, closed, initial encounter ??? Closed fracture of posterior wall of left acetabulum Resolved Hospital Problems Diagnosis Date Resolved No resolved problems to display. MEDICATIONS: ??? oxyCODONE (ROXICODONE) immediate release tablet 5 mg OR oxyCODONE (ROXICODONE) immediate release tablet 10 mg OR oxyCODONE (ROXICODONE) immediate release tablet 15 mg ??? vancomycin (VANCOCIN) injection ??? enoxaparin (LOVENOX) injection 30 mg ??? polyethylene glycol (MIRALAX) packet 17 g ??? lactulose (CHRONULAC) 20 gram/30 mL oral solution 20-40 g ??? bisacodyl (DULCOLAX) EC tablet 10 mg ??? magnesium citrate oral solution 300 mL OR magnesium citrate oral solution 300 mL ??? cyclobenzaprine (FLEXERIL) tablet 10 mg ??? sodium chloride 0.9 % flush 5 mL ??? sodium chloride 0.9 % flush 5-20 mL ??? lidocaine (XYLOCAINE) 10 mg/mL (1 %) injection 3 mg ??? naloxone (NARCAN) injection 0.2 mg ??? senna-docusate (PERICOLACE) 8.6-50 mg per tablet 2 tablet ??? bisacodyl (DULCOLAX) suppository 10 mg ??? acetaminophen (TYLENOL) tablet 1,000 mg ??? BUpivacaine (PF) (MARCAINE) 0.25 % (2.5 mg/mL) injection OBJECTIVE: Temp: [36.8 ??C (98.2 ??F)-37.7 ??C (99.9 ??F)] Resp: [15-18] BP: (90-93)/(53-55) Intake/Output Summary (Last 24 hours) at 12/22/17 0556 Last data filed at 12/22/17 0243 Gross per 24 hour Intake 1145 ml Output 2075 ml Net -930 ml Body mass index is 27.46 kg/(m^2). PE: General: Lying flat in bed in no acute distress, comfortable appearing, awake/alert, responds to questions appropriately. CV: Regular rate and rhythm by peripheral palpation. Resp: Breathing comfortably on room 2L NC. RUE: Short arm bivalved cast in place. Fingers exposed. Sensation intact to light touch in ax/r/m/u distributions. Motor intact to digit flexion/extension, AIN, PIN, IO. Brisk capillary refill distally, fingers warm/well-perfused. RLE: De Baca brace in place, locked in extension. Mepilex dressings clean and dry with minimal serosanguinous staining. Sensation intact to light touch in lat fem cut/fem/sural/saph/SP/DP/T distributions. Motor intact to FHL/EHL/TA. Brisk capillary refill distally, foot warm/well-perfused. Palpable pedal pulses. LLE: Mepilex dressing c/d/i Sensation intact to light touch in in lat fem cut/fem/sural/saph/SP/DP/T distributions Motor intact to ankle dorsiflexion/plantarflexion, EHL/FHL. Brisk capillary refill distally. Foot warm and well perfused. 2+ DP/PT Labs: Last 3 wbc, hgb, hct plt Recent Labs 12/21/17 0704 12/17/17 0655 12/15/17 0822 WBC 6.8 7.0 8.1 HGB 8.7* 10.9* 10.5* HCT 25.6* 31.1* 29.6* PLATELET 253 195 145 Last 3 Lytes Recent Labs 12/21/17 0704 12/17/17 0655 12/15/17 0822 NA 138 142 143 K 3.9 3.9 3.8 CL 100 102 103 CO2 25 26 25 BUN 15 11 9 CREATININE 0.73 0.63* 0.83 IMAGING: XR pelvis 12/20 with Judet views: S/p ORIF with anatomic alignment of posterior acetabulum fx ASSESSMENT / PLAN: Daphne Pickard is a 52 y.o. female s/p ORIF of the right distal radius and right tibial plateau on 12/14 and now 2 Days Post-Op from ORIF left posterior acetabulum fx. Progressing as expected. Awaiting rehab, referrals have been placed. Activity: NWB BLE, slide board transfers and left posterior hip precautions. De Baca beace locked in extension to RLE. Patient may use the RUE in the cast for help with transfers. DVT prophylaxis: Lovenox 30mg BID . Closure: Zuleyka out in 2 weeks (~01/03) Dressing: Mepilex to RLE and LLE. Right short arm bivalved cast x4 weeks. Antibiotics: Periop Ancef. Nir Bhatti MD 12/22/2017 Associated attestation - Reinaldo Romero MD - 12/22/2017 9:05 AM EDT I saw and evaluated the patient and I agree with the note as documented by Dr. Bhatti with the following alterations and/or additions: Ms. Pickard is doing well today. She did have a Ramirez replaced last night for inability to void. Pain seems to be getting better in the left hip. She has had some issues with spasms. That has been uncomfortable for her. She is ready to leave to go to rehab. All her questions were answered. She will be nonweightbearing sliding transfers only. We will see her back in about 2 weeks for repeat x-rays of the pelvis, right wrist, right knee. * Roberto Almodovar, PT - 12/21/2017 3:58 PM EDT PHYSICAL THERAPY CONTACT NOTE Attempted to see patient this afternoon. Pain not well controlled. Unable to perform treatment session. Will attempt again tomorrow. Roberto Almodovar, PT, DPT [facility] * Sabrina Aranda RN - 12/21/2017 3:20 PM EDT Based on discussions with the multi-disciplinary healthcare team, the patient would benefit from skilled level of care at discharge. ?? I have met with the patient to discuss discharge planning needs. I reviewed the [facility] [place], Office of Care Management letter from the Knitting Supervisor pertaining to rehab referrals. I also reviewed a letter describing our affiliations within the [facility] and educated her abouther right to choose where referrals are placed. ?? I reviewed the different levels of rehab including SNF, swing, acute and LTAC with the patient. ?? The patient has been provided a list of facilities within her preferred geographic area. ?? I requested that the patient provide at least three choices for referral. ?? The patient requested referrals to: 1. [facility] [place] [address] ?? [phone] ?? I mentioned the option of hospitals which offer Swing Beds. Patient declined to provide additional referral choices of any level. ?? Expected date of discharge: Not yet determined. Pt continues to have pain control issues. Note routed to Manager Pricing who will communicate referrals to facilities and provide any required information. Sabrina Aranda RN, BSN, Him Coder Pager [phone] * Filippo Dickson MD - 12/21/2017 10:10 AM EDT Morning lab work now returned. Hgb 8.7 down from 10.9 pre-operatively for ORIF left acetabulum performed yesterday 12/20. Consistent with acute blood loss anemia following surgery. Will continue to follow. Remainder of CBC, BMP WNL. See progress note by Dr. Dobson for remainder of exam and assessment. Filippo Dickson MD Orthopaedic Surgery, PGY-1 Pager: [phone] * Kimani Dobson MD - 12/21/2017 5:58 AM EDT ORTHOPAEDIC SURGERY INPATIENT PROGRESS NOTE Patient Name: Daphne Pickard Age: 52 y.o. Surgery/Issue: ORIF right tibial plateau fx and ORIF right distal radius fx on 12/14, s/p ORIF left acetabulum 12/20 Attending: Heather Talamantes Date of surgery: 12/14/2017, 12/20/2017 SUBJECTIVE / INTERVAL HISTORY: Pain not well controlled overnight. Has spasms as well. Denies numbness or tingling in RUE or BLE. Denies chest pain, dyspnea, fevers, n/v. Active Hospital Problems Diagnosis ??? Trauma ??? Fracture of right tibial plateau ??? Radius/ulna fracture, right, closed, initial encounter ??? Closed fracture of posterior wall of left acetabulum Resolved Hospital Problems Diagnosis Date Resolved No resolved problems to display. MEDICATIONS: ??? oxyCODONE (ROXICODONE) immediate release tablet 10-15 mg ??? vancomycin (VANCOCIN) injection ??? enoxaparin (LOVENOX) injection 30 mg ??? polyethylene glycol (MIRALAX) packet 17 g ??? lactulose (CHRONULAC) 20 gram/30 mL oral solution 20-40 g ??? bisacodyl (DULCOLAX) EC tablet 10 mg ??? magnesium citrate oral solution 300 mL OR magnesium citrate oral solution 300 mL ??? cyclobenzaprine (FLEXERIL) tablet 10 mg ??? sodium chloride 0.9 % flush 5 mL ??? sodium chloride 0.9 % flush 5-20 mL ??? lidocaine (XYLOCAINE) 10 mg/mL (1 %) injection 3 mg ??? naloxone (NARCAN) injection 0.2 mg ??? senna-docusate (PERICOLACE) 8.6-50 mg per tablet 2 tablet ??? bisacodyl (DULCOLAX) suppository 10 mg ??? acetaminophen (TYLENOL) tablet 1,000 mg ??? BUpivacaine (PF) (MARCAINE) 0.25 % (2.5 mg/mL) injection OBJECTIVE: Temp: [36.3 ??C (97.3 ??F)-37.4 ??C (99.3 ??F)] Heart Rate: [79-98] Resp: [10-22] BP: (85-143)/(51-86) Intake/Output Summary (Last 24 hours) at 12/21/17 0558 Last data filed at 12/20/17 1536 Gross per 24 hour Intake 1900 ml Output 845 ml Net 1055 ml Body mass index is 27.46 kg/(m^2). PE: General: Lying flat in bed in no acute distress, comfortable appearing, awake/alert, responds to questions appropriately. CV: Regular rate and rhythm by peripheral palpation. Resp: Breathing comfortably on room 2L NC. RUE: Short arm bivalved cast in place. Fingers exposed. Sensation intact to light touch in ax/r/m/u distributions. Motor intact to digit flexion/extension, AIN, PIN, IO. Brisk capillary refill distally, fingers warm/well-perfused. RLE: De Baca brace in place, locked in extension. Mepilex dressings clean and dry with minimal serosanguinous staining. Sensation intact to light touch in lat fem cut/fem/sural/saph/SP/DP/T distributions. Motor intact to FHL/EHL/TA. Brisk capillary refill distally, foot warm/well-perfused. Palpable pedal pulses. LLE: Mepilex dressing c/d/i Sensation intact to light touch in in lat fem cut/fem/sural/saph/SP/DP/T distributions Motor intact to ankle dorsiflexion/plantarflexion, EHL/FHL. Brisk capillary refill distally. Foot warm and well perfused. 2+ DP/PT Labs: Last 3 wbc, hgb, hct plt Recent Labs 12/17/17 0655 12/15/17 0822 12/14/17 0000 WBC 7.0 8.1 11.4* HGB 10.9* 10.5* 12.2 HCT 31.1* 29.6* 35.0* PLATELET 195 145 195 Last 3 Lytes Recent Labs 12/17/17 0655 12/15/17 0822 12/14/17 0000 NA 142 143 140 K 3.9 3.8 4.6 CL 102 103 103 CO2 26 25 26 BUN 11 9 13 CREATININE 0.63* 0.83 0.92 IMAGING: XR pelvis 12/20 with Judet views: S/p ORIF with anatomic alignment of posterior acetabulum fx ASSESSMENT / PLAN: Daphne Pickard is a 52 y.o. female s/p ORIF of the right distal radius and right tibial plateau on 12/14 and now 1 Day Post-Op from ORIF left posterior acetabulum fx. Progressingwell and as expected with increased pain. Increased PO analgesics. Activity: NWB BLE, slide board transfers and left posterior hip precautions. De Baca beace locked in extension to RLE. Patient may use the RUE in the cast for help with transfers. DVT prophylaxis: Lovenox 30mg BID . Closure: Zuleyka out in 2 weeks (~01/03) Dressing: Mepilex to RLE and LLE. Right short arm bivalved cast x4 weeks. Antibiotics: Periop Ancef. Kimani Dobson MD 12/21/2017 Associated attestation - Tete Talamantes MD - 12/21/2017 2:48 PM EDT Patient seen and examined. Agree with resident note. NWB BLE, slideboard transfer only. Rosey Talamantes MD Department of Orthopaedics 12/21/17 * Kristyn Quiroz RN - 12/20/2017 4:33 PM EDT Patient arrived to floor via bed from PACU. Patient A&O x 3, lungs clear, heart rate regular. Patient has hypoactive bowel sounds and stats their last BM was on 12/20/2017. Patient has a dressing to L hip, noted to be clean dry and intact. Patient has an IV of NS infusing at 100 in to their L AC. Patient states their pain level is 4/10. Patient denies chest pain, shortness of breath, numbnessor tingling. Patient oriented to room, call seth IS. RN will monitor patient. Kristyn Quiroz RN * Eliot Norton MD - 12/20/2017 2:44 PM EDT Orthopaedic Surgery Post-Operative Progress Note Surgery/Issue: Procedure(s): @OPEN TREATMENT, ACETABULAR FX (WRVU 25.41) MODIFIER LOCKING SMALL FRAGMENT SYNTHES MODIFIER PELVIC RECONSTRUCTION PLATE SYNTHES Attending: Albin Date of surgery: 12/20/2017 Subjective/Events: Patient denies chest pain, shortness of breath, nausea, vomiting, numbness/weakness. Pain well-controlled, does have some lateral thigh tenderness but is tolerable. Tolerating PO liquids. Ramirez remains in place. Objcetive: Temp: [36.7 ??C (98.1 ??F)-37.4 ??C (99.3 ??F)] Heart Rate: [79-98] Resp: [10-22] BP: (101-143)/(65-86) Intake/Output Summary (Last 24 hours) at 12/20/17 1444 Last data filed at 12/20/17 1348 Gross per 24 hour Intake 1900 ml Output 1245 ml Net 655 ml Lab Results Component Value Date NA 142 12/17/2017 K 3.9 12/17/2017 CL 102 12/17/2017 CO2 26 12/17/2017 BUN 11 12/17/2017 CREATININE 0.63 (L) 12/17/2017 GLUCOSE 91 12/17/2017 CALCIUM 9.0 12/17/2017 Lab Results Component Value Date WBC 7.0 12/17/2017 HGB 10.9 (L) 12/17/2017 HCT 31.1 (L) 12/17/2017 MCV 92.6 12/17/2017 PLATELET 195 12/17/2017 Lab Results Component Value Date INR 1.0 12/14/2017 Exam: General: NAD, awake/alert, responds to questions CV: RRR Resp: Breathing comfortably, lungs CTAB RUE: SABC in place Sensation intact to light touch in ax/r/m/u distributions Motor intact to digit flexion/extension Brisk capillary refill distally, fingers warm/well-perfused. RLE: R leg mepilex dressing c/d/i, in bishnu brace in extension Sensory intact to light touch in lat fem cut/fem/sural/saph/SP/DP/T distributions Motor intact to FHL/EHL/TA Brisk capillary refill distally, foot warm/well-perfused LLE: Hip mepilex dressing c/d/i Sensory intact to light touch in lat fem cut/fem/sural/saph/SP/DP/T Motor intact to FHL/EHL/TA, Hip and knee ROM deferred due to pain. Brisk capillary refill distally, foot warm/well-perfused Radiology: XR pelvis judet view 12/20: No evidence of complication following left hip ORIF. A/P: 52 y.o. female POD#0 s/p ORIF of left posterior acetabular wall fracture. Patient is doing well post op. Has new post surgical pain that is tolerable. Is now TDWB on this LLE. Will remove ramirez this afternoon. Plan to continue rehab with PT tomorrow. Posterior hip precautions to LLE. Activity: NWB RLE, De Baca brace locked in extension to RLE, TDWB in LLE with posterior hip precautions, can platform weight bear through RUE DVT prophylaxis: Lovenox 30 mg bid. Closure: Resorbable sutures to RLE, zuleyka to LLE Dressing: Mepilex to RLE and to LLE, RUE in SABC x 4 weeks Antibiotics: periop flor Norton MD 12/20/2017 Associated attestation - Tete Talamantes MD - 12/21/2017 5:58 AM EDT Patient seen and examined. Agree with resident note. NWB BLE, slideboard transfers only. Lovenox 30mg BID. Rosey Talamantes MD Department of Orthopaedics 12/21/17 * Rocio Sherman RN - 12/20/2017 12:33 PM EDT 1025 Patient admitted to PACU. Hand off received from Richie Martin CRNA. care assumed. Assessmentsas documented. Monitors on, alarms audible and individualized to patient. 1225 care resumed. PACU D/C criteria met 1240 Hand off to HAYLEY Simons 3 nathalie. Patient to go to X-ray on route, hip precautions discussed withX-ray, will be maintained * Toño Garcia RN - 12/20/2017 11:52 AM EDT 1152: Break coverage; Pt's family in for PACU visit. 1201: Telephoned x-ray department to confirm that Judet view is possible, but needs to be done in x-ray rather than portable; will telephone x-ray department after telephone report to floor. * Roberto Almodovar PT - 12/20/2017 8:15 AM EDT PHYSICAL THERAPY CONTACT NOTE Pt currently in OR for scheduled procedure. Therapy to follow up post op as appropriate. Roberto Almodovar PT, DPT [facility] Inpatient [facility] * Joyce Parra - 12/20/2017 7:00 AM EDT ORTHOPAEDIC SURGERY INPATIENT PROGRESS NOTE Patient Name: Daphne Pickard Age: 52 y.o. Surgery/Issue: ORIF right tibial plateau fx and ORIF right distal radius fx. Pending ORIF L acetabulum. Attending: Dr. Romero Date of surgery: 12/14/2017 SUBJECTIVE / INTERVAL HISTORY: Patient complains of discomfort due to constipation last night. Did have enema and was able to havea bowel movement. Reports pain well controlled. Denies numbness or tingling in RUE or BLE. Has beenNPO since NH for OR today. Active Hospital Problems Diagnosis ??? Trauma ??? Fracture of right tibial plateau ??? Radius/ulna fracture, right, closed, initial encounter ??? Closed fracture of posterior wall of left acetabulum Resolved Hospital Problems Diagnosis Date Resolved No resolved problems to display. MEDICATIONS: ??? enoxaparin (LOVENOX) injection 30 mg ??? polyethylene glycol (MIRALAX) packet 17 g ??? lactulose (CHRONULAC) 20 gram/30 mL oral solution 20-40 g ??? bisacodyl (DULCOLAX) EC tablet 10 mg ??? magnesium citrate oral solution 300 mL OR magnesium citrate oral solution 300 mL ??? cyclobenzaprine (FLEXERIL) tablet 10 mg ??? sodium chloride 0.9 % flush 5 mL ??? sodium chloride 0.9 % flush 5-20 mL ??? lidocaine (XYLOCAINE) 10 mg/mL (1 %) injection 3 mg ??? naloxone (NARCAN) injection 0.2 mg ??? senna-docusate (PERICOLACE) 8.6-50 mg per tablet 2 tablet ??? bisacodyl (DULCOLAX) suppository 10 mg ??? acetaminophen (TYLENOL) tablet 1,000 mg ??? BUpivacaine (PF) (MARCAINE) 0.25 % (2.5 mg/mL) injection ??? oxyCODONE (ROXICODONE) immediate release tablet 10 mg OBJECTIVE: Temp: [36.7 ??C (98.1 ??F)-37.6 ??C (99.7 ??F)] Resp: [12-16] BP: (107-125)/(68-79) Intake/Output Summary (Last 24 hours) at 12/20/17 0700 Last data filed at 12/20/17 0339 Gross per 24 hour Intake 0 ml Output 1150 ml Net -1150 ml Body mass index is 27.46 kg/(m^2). PE: General: Lying flat in bed in no acute distress, comfortable appearing, awake/alert, responds to questions appropriately. CV: Regular rate and rhythm by peripheral palpation. Resp: Breathing comfortably on room air. RUE: Short arm bivalved cast in place. Fingers exposed. Sensation intact to light touch in ax/r/m/u distributions. Motor intact to digit flexion/extension, AIN, PIN, IO. Brisk capillary refill distally, fingers warm/well-perfused. RLE: De Baca brace in place, locked in extension. Mepilex dressings clean and dry with minimal serosanguinous staining. Sensation intact to light touch in lat fem cut/fem/sural/saph/SP/DP/T distributions. Motor intact to FHL/EHL/TA. Brisk capillary refill distally, foot warm/well-perfused. Palpable pedal pulses. LLE: Sensation intact to light touch in in lat fem cut/fem/sural/saph/SP/DP/T distributions Motor intact to ankle dorsiflexion/plantarflexion, EHL/FHL. Brisk capillary refill distally. Foot warm and well perfused. Palpable pedal pulses. Labs: Last 3 wbc, hgb, hct plt Recent Labs 12/17/17 0655 12/15/17 0822 12/14/17 0000 WBC 7.0 8.1 11.4* HGB 10.9* 10.5* 12.2 HCT 31.1* 29.6* 35.0* PLATELET 195 145 195 Last 3 Lytes Recent Labs 12/17/17 0655 12/15/17 0822 12/14/17 0000 NA 142 143 140 K 3.9 3.8 4.6 CL 102 103 103 CO2 26 25 26 BUN 11 9 13 CREATININE 0.63* 0.83 0.92 IMAGING: None new. ASSESSMENT / PLAN: Daphne Pickard is a 52 y.o. female s/p ORIF of the right distal radius and right tibial plateau. Patient NPO for OR this AM Activity: NWB BLE. Bishnu beace locked in extension to RLE. Okay to platform weight bear through RUE. DVT prophylaxis: Lovenox 30mg BID . Closure: Resorbable sutures. Dressing: Mepilex to RLE. Right short arm bivalved cast x4 weeks. Antibiotics: Periop Ancef. Diet: NPO for OR JOYCE PARRA MD 12/20/2017 * Peter Dueñas MD - 12/19/2017 7:27 AM EDT ORTHOPAEDIC SURGERY INPATIENT PROGRESS NOTE Patient Name: Daphne Pickard Age: 52 y.o. Surgery/Issue: ORIF right tibial plateau fx and ORIF right distal radius fx. Pending ORIF Miguel Ángel acetabulum. Attending: Dr. Romero Date of surgery: 12/14/2017 SUBJECTIVE / INTERVAL HISTORY: Mrs. Pickard is doing well this morning. She endorses having a spasm in her right knee yesterday that was quite uncomfortable, but is feeling better now. She is tolerating a diet and denies having anynausea or vomiting. States that she is prepared to go to the OR tomorrow for ORIF of her left acetabulum. No acute events overnight. Denies having any tingling, numbness, chest pain, or shortness of breath. Active Hospital Problems Diagnosis ??? Trauma ??? Fracture of right tibial plateau ??? Radius/ulna fracture, right, closed, initial encounter ??? Closed fracture of posterior wall of left acetabulum Resolved Hospital Problems Diagnosis Date Resolved No resolved problems to display. MEDICATIONS: ??? polyethylene glycol (MIRALAX) packet 17 g ??? polyethylene glycol (MIRALAX) packet 17 g ??? lactulose (CHRONULAC) 20 gram/30 mL oral solution 20-40 g ??? bisacodyl (DULCOLAX) EC tablet 10 mg ??? magnesium citrate oral solution 300 mL OR magnesium citrate oral solution 300 mL ??? cyclobenzaprine (FLEXERIL) tablet 10 mg ??? sodium chloride 0.9 % flush 5 mL ??? sodium chloride 0.9 % flush 5-20 mL ??? lidocaine (XYLOCAINE) 10 mg/mL (1 %) injection 3 mg ??? naloxone (NARCAN) injection 0.2 mg ??? enoxaparin (LOVENOX) injection 30 mg ??? senna-docusate (PERICOLACE) 8.6-50 mg per tablet 2 tablet ??? bisacodyl (DULCOLAX) suppository 10 mg ??? acetaminophen (TYLENOL) tablet 1,000 mg ??? BUpivacaine (PF) (MARCAINE) 0.25 % (2.5 mg/mL) injection ??? oxyCODONE (ROXICODONE) immediate release tablet 10 mg OBJECTIVE: Temp: [36.9 ??C (98.4 ??F)-37.2 ??C (99 ??F)] Resp: [14-16] BP: (112-126)/(66-70) Intake/Output Summary (Last 24 hours) at 12/19/17 0733 Last data filed at 12/19/17 0400 Gross per 24 hour Intake 0 ml Output 1575 ml Net -1575 ml Body mass index is 27.46 kg/(m^2). PE: General: Lying flat in bed in no acute distress, comfortable appearing, awake/alert, responds to questions appropriately. CV: Regular rate and rhythm by peripheral palpation. Resp: Breathing comfortably on room air. RUE: Short arm bivalved cast in place. Fingers exposed. Sensation intact to light touch in ax/r/m/u distributions. Motor intact to digit flexion/extension, AIN, PIN, IO. Brisk capillary refill distally, fingers warm/well-perfused. RLE: De Baca brace in place, locked in extension. Mepilex dressings clean and dry with minimal serosanguinous staining. Sensation intact to light touch in lat fem cut/fem/sural/saph/SP/DP/T distributions. Motor intact to FHL/EHL/TA. Brisk capillary refill distally, foot warm/well-perfused. Palpable pedal pulses. LLE: Sensation intact to light touch in in lat fem cut/fem/sural/saph/SP/DP/T distributions Motor intact to ankle dorsiflexion/plantarflexion, EHL/FHL. Brisk capillary refill distally. Foot warm and well perfused. Palpable pedal pulses. Labs: Last 3 wbc, hgb, hct plt Recent Labs 12/17/17 0655 12/15/17 0822 12/14/17 0000 WBC 7.0 8.1 11.4* HGB 10.9* 10.5* 12.2 HCT 31.1* 29.6* 35.0* PLATELET 195 145 195 Last 3 Lytes Recent Labs 12/17/17 0655 12/15/17 0822 12/14/17 0000 NA 142 143 140 K 3.9 3.8 4.6 CL 102 103 103 CO2 26 25 26 BUN 11 9 13 CREATININE 0.63* 0.83 0.92 IMAGING: None new. ASSESSMENT / PLAN: Daphne Pickard is a 52 y.o. female s/p ORIF of the right distal radius and right tibial plateau. Patient to be NPO at midnight tonight in anticipation of ORIF left acetabulum tomorrow. Activity: NWB BLE. De Baca beace locked in extension to RLE. Okay to platform weight bear through RUE. DVT prophylaxis: Lovenox 30mg BID . Closure: Resorbable sutures. Dressing: Mepilex to RLE. Right short arm bivalved cast x4 weeks. Antibiotics: Periop Ancef. Diet: NPO tonight for OR Wednesday. Peter Dueñas MD 12/19/2017 * DoshiOliver prieto - 12/18/2017 6:31 AM EDT ORTHOPAEDIC SURGERY INPATIENT PROGRESS NOTE Patient Name: Daphne Pickard Age: 52 y.o. Surgery/Issue: ORIF right tibial plateau fx and ORIF right distal radius fx Attending: Heather Date of surgery: 12/14/2017 SUBJECTIVE / INTERVAL HISTORY: - No acute events - RLE is sore this morning - Denies numbness or tingling - plan for OR Wednesday with Dr. Talamantes for acetabulum FOCUSED REVIEW OF SYSTEMS: as above. Active Hospital Problems Diagnosis ??? Trauma ??? Fracture of right tibial plateau ??? Radius/ulna fracture, right, closed, initial encounter ??? Closed fracture of posterior wall of left acetabulum Resolved Hospital Problems Diagnosis Date Resolved No resolved problems to display. There are no active non-hospital problems to display for this patient. MEDICATIONS: ??? sodium chloride 0.9 % flush 5 mL ??? sodium chloride 0.9 % flush 5-20 mL ??? lidocaine (XYLOCAINE) 10 mg/mL (1 %) injection 3 mg ??? naloxone (NARCAN) injection 0.2 mg ??? enoxaparin (LOVENOX) injection 30 mg ??? senna-docusate (PERICOLACE) 8.6-50 mg per tablet 2 tablet ??? bisacodyl (DULCOLAX) suppository 10 mg ??? acetaminophen (TYLENOL) tablet 1,000 mg ??? BUpivacaine (PF) (MARCAINE) 0.25 % (2.5 mg/mL) injection ??? polyethylene glycol (MIRALAX) packet 17 g ??? oxyCODONE (ROXICODONE) immediate release tablet 10 mg OBJECTIVE: Temp: [36.6 ??C (97.9 ??F)-37.4 ??C (99.3 ??F)] Resp: [14-] BP: (108-116)/(65-78) Intake/Output Summary (Last 24 hours) at 12/18/17 0631 Last data filed at 12/18/17 0010 Gross per 24 hour Intake 600 ml Output 2825 ml Net -2225 ml Body mass index is 27.46 kg/(m^2). PE: General: awake/alert, responds to questions CV: RRR assessed peripherally Resp: Breathing comfortably on RA RUE: Cast in place, bivalveled Sensation intact to light touch in ax/r/m/u distributions Motor intact to digit flexion/extension, AIN, PIN, IO intact Brisk capillary refill distally, fingers warm/well-perfused. RLE: Mepilex dressing c/d/i Bishnu brace in locked in extension in place. Sensory intact to light touch in lat fem cut/fem/sural/saph/SP/DP/T distributions Motor intact to FHL/EHL/TA, knee extension/flexion, hip extension/flexion Brisk capillary refill distally, foot warm/well-perfused 2+ DP/PT pulses LLE: Skin intact, no abrasions/open wounds Sensation intact to light touch in in lat fem cut/fem/sural/saph/SP/DP/T distributions Motor intact (5/5) ankle flexion/extension, EHL/FHL/TA Brisk capillary refill distally 2+ DP/PT pulses Labs: Last 3 wbc, hgb, hct plt Recent Labs 12/17/17 0655 12/15/17 0822 12/14/17 0000 WBC 7.0 8.1 11.4* HGB 10.9* 10.5* 12.2 HCT 31.1* 29.6* 35.0* PLATELET 195 145 195 Last 3 Lytes Recent Labs 12/17/17 0655 12/15/17 0822 12/14/17 0000 NA 142 143 140 K 3.9 3.8 4.6 CL 102 103 103 CO2 26 25 26 BUN 11 9 13 CREATININE 0.63* 0.83 0.92 IMAGING: XR right knee 12/14/17 Right tibial plateau fracture now with anatomic alignment s/p ORIF with plate and screws. XR right wrist 12/14/17 Anatomic alignment of the distal radius fracture s/p ORIF with plate and screws. XR pelvis AP and Judets 12/14/2017 Left posterior acetabular wall fracture with displacement similar to appearance from previous imaging. ASSESSMENT / PLAN: Daphne Pickard is a 52 y.o. female 4 Days Post-Op ORIF right distal radius and right tibial plateau fx. Plan for ORIF Acetabulum on Wednesday 12/20, will need to be NPO Wednesday night. Activity: NWB BLE, bishnu beace locked in extension, can platform weight bear through RUE DVT prophylaxis: lovenox 30mg BID Closure: Resorbable sutures Dressing: Guze/ABDs, in SABC x 4 weeks Antibiotics: periop ancef Diet: NPO Wednesday for OR Wednesday Fu: TBD OLIVER DOSHI MD 12/18/2017 No future appointments. * Good Barrera MD - 12/16/2017 3:36 PM EDT Trauma Daily Progress Note ID/MECHANISM OF INJURY: Daphne Pickard is a 52 y.o. Female s/p fall from horse on 12/13/17 with the following injuries: ?? Injury Intervention Follow-up Right tibial plateau fx Ortho consult -Activity: NWB BLE, bldsoe brace locked in extension, can platform weight bear through RUE DVT prophylaxis: per primary, recommend lovenox Closure: Resorbable sutures Dressing: Guze/ABDs, in SABC x 4 weeks Antibiotics: periop ancef Ortho clinic to be sched Left posterior wall acetabulum fx Ortho consult Planned OR Wednesday Ortho clinic to be sched Right distal radius fx Ortho consult -Splint applied in ED -12/14 ORIF -Activity: NWB BLE, bldsoe brace locked in extension, can platform weight bear through RUE Ortho clinic to be sched ?? Hospital issues: - acute pain - chronic depression - Acute Urinary Retention Procedures: 12/14 Procedure(s) (LRB): @ORIF TIBIAL PLATEAU (PROXIMAL) UNICONDYLAR (WRVU 13.41) (Right) ORIF DISTAL RADIUS, 3 OR MORE FRAGMENTS (WRVU 14.38) (Right) MODIFIER VARIABLE ANGLE DISTAL RADIUS SYNTHES (Right) MODIFIER, 3.5 VA PROXIMAL TIBIAL PLATES, SYNTHES (Right) HIP INTRAOP RADIOLOGIC EXAMINATION, UNILATERAL, W PELVIS; 1 VIEW (WRVU 0.18) (Left) ?? Findings: Right tibial plateau fx, L posterior wall acetabulum fx, Right distal radius fracture ?? Secondary Issues: Past Medical History: Diagnosis Date ??? Basal cell carcinoma 2009 24 Hour Events: -Patient initially made n.p.o. this morning for potential OR that was later canceled. Diet restored, plan for possible OR tomorrow. -Acute urinary retention with straight cath ??3, Ramirez reinserted -Patient denies chest pain, shortness of breath, nausea, vomiting Current Medications: ??? sodium chloride 0.9 % 5 mL Intravenous BID ??? enoxaparin 30 mg Subcutaneous 2 times per day ??? senna-docusate 2 tablet Oral BID ??? acetaminophen 1,000 mg Oral Q6H ??? polyethylene glycol (MIRALAX)oral powder 17 g Oral Daily Vital Signs: VITALS (24hr Range): Temp Temp: [36.6 ??C (97.9 ??F)-37.4 ??C (99.3 ??F)] , HR Heart Rate: --, BP BP: (104-110)/(64-69) , RR Resp: [16-20] , SpO2 SpO2: [91 %-97 %] I/O: Intake/Output Summary (Last 24 hours) at 12/16/17 1536 Last data filed at 12/16/17 0400 Gross per 24 hour Intake 0 ml Output 1175 ml Net -1175 ml Physical Exam: GENERAL: Alert, awake and in no apparent distress, HEAD: Normocephalic, atraumatic FACE: Pupils/eyes: Equal round, no orbital or periorbital ecchymosis or edema. No scleral icterus, subconjunctival hemorrhage, no injection. Ears: Clear to visualization, no otorrhea, symmetrical Midface: No tenderness, no edema no contusions, no lacerations or abrasions over the midface. No rhinorrhea Oropharynx: Nonbloody, moist mucous membranes noted, no lacerations, no malocclusions, no chipped or missing teeth. NECK: Supple, trachea midline, no masses, no edema, no contusions or abrasions, no obvious JVD. LUNGS: Equal, clear breath sounds bilaterally without crepitus, no obvious deformities of the chest, no CARDIAC: Regular rate and rhythm without murmur or extra heart sounds, S1-S2 ABDOMEN/GI: Soft, nontender, nondistended, no abrasions or contusions. audible Bowel sounds no distention, hernias or scars. Without obvious ascites EXT: Right upper extremity in splint with distal CMS intact. Patient reports chronic thumb tingling at times. Right lower extremity in brace with distal CMS intact. Otherwise 5 out of 5 motor strength in spontaneously moving. SKIN: No lacerations, abrasions or contusions on complete anterior and posterior skin exam. NEURO: Mental Status: Awake and alert to person place and time Motor: No obvious tics or tremors. Sensory: Intact to touch LINES/TUBES: PIV, Ramirez Labs: Recent Labs 12/15/17 0822 12/14/17 0000 WBC 8.1 11.4* HGB 10.5* 12.2 HCT 29.6* 35.0* PLATELET 145 195 PT -- 11.2 INR -- 1.0 PTT -- 24* Recent Labs 12/15/17 0822 12/14/17 0000 NA 143 140 K 3.8 4.6 CL 103 103 CO2 25 26 BUN 9 13 CREATININE 0.83 0.92 GLUCOSE 102 124 CALCIUM 8.4* 8.4* MAGNESIUM 0.85 -- Microbiology: No active microbiology data New Imaging: No new imaging in the last 24 hours Assessment: Daphne Pickard is a 52 y.o. female status post a fall/throw from a horse with injuries including a right radial fracture, right tibial plateau fracture and left acetabular fracture. She will underwent fixation for her tibial plateau and distal radial fracture on 12/14. She is currently pending repair of her left acetabular fracture. Her hospital course has been also notable for acute urinary retention for which a Ramirez was reinserted on 12/16. She has remained hemodynamically stable and neurologically intact over serial exam PLAN: NEURO: - Acute pain: tylenol 1g Q6 hr, Oxycodone 4q PRN -Chronic depression but reports no longer taking SSRI without issues. ?? SPINE: - cleared per CTs and clinically ?? ACTIVITY: - Activity: NWB BLE, bldsoe brace locked in extension,??can platform weight bear through RUE ?? PULM: - without active issues - IS hourly while awake ?? CARDIAC: - without active issues ?? FEN/GI: saline lock IVF - Diet: reg diet as tolerated. NPO after midnight - NBO placed -Last BM: [employer] ?? RENAL: - trend BMP daily till stable -Microscopic Hematuria- Follow as clinically relevant, repeat UA prior to discharge. If still present at DC, follow up at trauma clinic or PCP. -Acute Urinary Retention- Ramirez reinserted on 12/16 after multiple voiding trials. Will plan to DC ramirez in 3-4 days and re- attempt voiding trial with PVRs x2. ?? HEME: -Acute Blood Loss Anemia- Continue to monitor CBC and follow as clinically relevant. Replete if less than 7g/dL. Monitor for hemodynamic changes. ?? ENDO: - without active issue ?? MSK: NWB in RUE / RLE / LLE -right radial fx s/p ORIF - right tibial plateau fx s/p ORIF - Left post acetabular fx: ?? ID: - leukocytosis- 8.1 from 8.4 Continue to monitor and trend -follow for s&s of infection; alfonso cx temp 38 or greater ?? CODE STATUS: - full code ?? LINES: - PIV, ramirez ?? PROPHYLAXIS -DVT prophylaxis: SCD, lovenox sq -GI prophylaxis: not indicated ?? DISPO/Discharge Planning: -floor status -CRC working on d/c plan ?? CONSULTS: Ortho 12/16 ASSESSMENT / PLAN: Daphne Pickard is a 52 y.o. female 2 Days Post-Op ORIF right distal radius and right tibial plateau fx. Plan for potential ORIF left acetabulum today, please keep NPO. ?? Activity: NWB BLE, bldsoe beace locked in extension, can platform weight bear through RUE DVT prophylaxis: per primary, recommend lovenox Closure: Resorbable sutures Dressing: Guze/ABDs, in SABC x 4 weeks Antibiotics: periop ancef Diet: NPO ?? Nir Bhatti MD 12/16/2017 ? No future appointments. - Incidental Findings: (none as of 12/16) [] Incidental Findings Form Completed Jaosn ShannonJOSÉ LUIS 12/16/2017 Trauma pager [phone] Acute Care Surgery Attending Addendum: I have seen this patient and agree with the above note with the following additions and/or modifications. Sitting up in bed texting and appears comfortable. Shetolerated dinner last night with no nausea, currently npo today for OR. Chest is clear and abdomen is non tender. Urinary retention requiring straight cath, may require ramirez placement if this persists. PT and OT after OR. IPI Certification I certify that I am a [facility] credentialed attending provider with admitting privileges and that the patient meets or has met medical necessity to require an inpatient IPI level of care meeting a minimumof two midnights or is on the [facility] inpatient only procedure list (status C) due to: acetabular fracture * Nir Bhatti - 12/16/2017 5:49 AM EDT ORTHOPAEDIC SURGERY INPATIENT PROGRESS NOTE Patient Name: Daphne Pickard Age: 52 y.o. Surgery/Issue: ORIF right tibial plateau fx and ORIF right distal radius fx Attending: Heather Date of surgery: 12/14/2017 SUBJECTIVE / INTERVAL HISTORY: - No acute events - Pain well controlled - Has been NPO for OR - Denies numbness or tingling FOCUSED REVIEW OF SYSTEMS: as above. Active Hospital Problems Diagnosis ??? Trauma ??? Fracture of right tibial plateau ??? Radius/ulna fracture, right, closed, initial encounter ??? Closed fracture of posterior wall of left acetabulum Resolved Hospital Problems Diagnosis Date Resolved No resolved problems to display. There are no active non-hospital problems to display for this patient. MEDICATIONS: ??? sodium chloride 0.9 % flush 5 mL ??? sodium chloride 0.9 % flush 5-20 mL ??? lidocaine (XYLOCAINE) 10 mg/mL (1 %) injection 3 mg ??? naloxone (NARCAN) injection 0.2 mg ??? enoxaparin (LOVENOX) injection 30 mg ??? senna-docusate (PERICOLACE) 8.6-50 mg per tablet 2 tablet ??? bisacodyl (DULCOLAX) suppository 10 mg ??? acetaminophen (TYLENOL) tablet 1,000 mg ??? BUpivacaine (PF) (MARCAINE) 0.25 % (2.5 mg/mL) injection ??? polyethylene glycol (MIRALAX) packet 17 g ??? oxyCODONE (ROXICODONE) immediate release tablet 10 mg ??? HYDROmorphone (DILAUDID) injection 0.2 mg OBJECTIVE: Temp: [36.6 ??C (97.9 ??F)-37.4 ??C (99.3 ??F)] Resp: [16-20] BP: (108-126)/(65-74) Intake/Output Summary (Last 24 hours) at 12/16/17 0549 Last data filed at 12/16/17 0400 Gross per 24 hour Intake 600 ml Output 2725 ml Net -2125 ml Body mass index is 27.46 kg/(m^2). PE: General: awake/alert, responds to questions CV: RRR assessed peripherally Resp: Breathing comfortably on RA RUE: Cast in place, bivalveled Sensation intact to light touch in ax/r/m/u distributions Motor intact to digit flexion/extension, AIN, PIN, IO intact Brisk capillary refill distally, fingers warm/well-perfused. RLE: Mepilex dressing c/d/i De Baca brace in locked in extension in place. Sensory intact to light touch in lat fem cut/fem/sural/saph/SP/DP/T distributions Motor intact to FHL/EHL/TA, knee extension/flexion, hip extension/flexion Brisk capillary refill distally, foot warm/well-perfused 2+ DP/PT pulses LLE: Skin intact, no abrasions/open wounds Sensation intact to light touch in in lat fem cut/fem/sural/saph/SP/DP/T distributions Motor intact (5/5) ankle flexion/extension, EHL/FHL/TA Brisk capillary refill distally 2+ DP/PT pulses Labs: Last 3 wbc, hgb, hct plt Recent Labs 12/15/17 0822 12/14/17 0000 WBC 8.1 11.4* HGB 10.5* 12.2 HCT 29.6* 35.0* PLATELET 145 195 Last 3 Lytes Recent Labs 12/15/17 0822 12/14/17 0000 NA 143 140 K 3.8 4.6 CL 103 103 CO2 25 26 BUN 9 13 CREATININE 0.83 0.92 IMAGING: XR right knee 12/14/17 Right tibial plateau fracture now with anatomic alignment s/p ORIF with plate and screws. XR right wrist 12/14/17 Anatomic alignment of the distal radius fracture s/p ORIF with plate and screws. XR pelvis AP and Judets 12/14/2017 Left posterior acetabular wall fracture with displacement similar to appearance from previous imaging. ASSESSMENT / PLAN: Daphne Pickard is a 52 y.o. female 2 Days Post-Op ORIF right distal radius and right tibial plateau fx. Plan for potential ORIF left acetabulum today, please keep NPO. Activity: NWB BLE, bldsoe beace locked in extension, can platform weight bear through RUE DVT prophylaxis: per primary, recommend lovenox Closure: Resorbable sutures Dressing: Guze/ABDs, in SABC x 4 weeks Antibiotics: periop ancef Diet: NPO Nir Bhatti MD 12/16/2017 No future appointments. * Jason Shannon, PATIENT PORTAL REPRESENTATIVE - 12/15/2017 1:58 PM EDT TRAUMA & ACUTE SURGICAL CARE SERVICE TERTIARY SURVEY ID/MECHANISM OF INJURY: Daphne Pickard is a 52 y.o. Female s/p fall from horse on 12/13/17 with the following injuries: Injury Intervention Follow-up Right tibial plateau fx Ortho consult -Activity: NWB BLE, bldsoe brace locked in extension, can platform weight bear through RUE DVT prophylaxis: per primary, recommend lovenox Closure: Resorbable sutures Dressing: Guze/ABDs, in SABC x 4 weeks Antibiotics: periop ancef Ortho clinic Left posterior wall acetabulum fx Ortho consult Planned OR Wednesday Ortho clinic Right distal radius fx Ortho consult -Splint applied in ED -12/14 ORIF -Activity: NWB BLE, bldsoe brace locked in extension, can platform weight bear through RUE Ortho clinic HISTORY OF PRESENT ILLNESS (From Zoltan Lewis H&P): Daphne Pickard is a 52 y.o. female presents to [facility] s/p fall. Description of events leading up to injury includes she was riding a horse when he bucked her off. She landed on her right arm and legbut did not hit her head. No LOC. Immediately after the fall she had significant pain in right knee. Her fiance was able to call EMS. She was taken to [facility] where she was noted to have multiple orthopedic injuries including a right radial and right tibial plateau fracture. Her right arm was placed in a CARMEN splint. She was transferred to [facility] for further care and was hemodynamically normal en route. ?? Primary survey revealed: intact airway, equal breath sounds/respirations, present 2+ peripheral pulses with stable vital signs and no signs of bleeding, GCS 15 (6 - Follows simple motor commands, 5 -Alert and oriented, 4 - Opens eyes on own), and complete exposure. ?? GCS: 15 Secondary survey revealed: PMHx: Past Medical History: Diagnosis Date ??? Basal cell carcinoma 2009 PSHx: Past Surgical History: Procedure Laterality Date ??? PRO COLONOSCOPY, DIAGNOSTIC N/A 06/25/2017 COLONOSCOPY, DIAGNOSTIC performed by Kimani Rojas MD at [facility] ENDOSCOPY HOME MEDICATIONS: No prescriptions prior to admission. CURRENT MEDICATIONS: ??? sodium chloride 0.9 % flush 5 mL ??? sodium chloride 0.9 % flush 5-20 mL ??? lidocaine (XYLOCAINE) 10 mg/mL (1 %) injection 3 mg ??? naloxone (NARCAN) injection 0.2 mg ??? enoxaparin (LOVENOX) injection 30 mg ??? senna-docusate (PERICOLACE) 8.6-50 mg per tablet 2 tablet ??? bisacodyl (DULCOLAX) suppository 10 mg ??? acetaminophen (TYLENOL) tablet 1,000 mg ??? BUpivacaine (PF) (MARCAINE) 0.25 % (2.5 mg/mL) injection ??? polyethylene glycol (MIRALAX) packet 17 g ??? oxyCODONE (ROXICODONE) immediate release tablet 10 mg ??? HYDROmorphone (DILAUDID) injection 0.2 mg sodium chloride 0.9 %, lidocaine, naloxone, bisacodyl, BUpivacaine (PF), oxyCODONE, HYDROmorphone ALLERGIES: No Known Allergies FAMILY HISTORY: Denies any pertinent family history SOCIAL HISTORY: Alcohol: 2 glasses of wine occasionally with socializing Tobacco: former smoker quit 2010 Drug: smoke marijuana irregularly Social: lives with significant other Jignesh Louise in [place], [place]. In 2nd floor home. One step to get into home. There is a bathroom on the 1st floor. REVIEW OF SYSTEMS: complete 10 system ROS performed with pertinent findings below. ROS negative other than the listed above PHYSICAL EXAM: VITALS: Last value Range last 24 hrs Temperature Temp: 36.7 ??C (98.1 ??F) Temp: [36.7 ??C (98.1 ??F)-37.6 ??C (99.7 ??F)] Heart Rate Heart Rate: 84 Heart Rate: [84-95] Blood Pressure BP: 103/61 BP: (103-106)/(61-64) Respiratory Rate Resp: 17 Resp: [13-19] SpO2 SpO2: 98 % SpO2: [92 %-100 %] I/O last 3 completed shifts: In: 600 [I.V.:600] Out: 1325 [Urine:1275; Blood:50] Body mass index is 27.46 kg/(m^2). overweight GENERAL: Alert, awake and in no apparent distress, overweight HEAD: Normocephalic, atraumatic FACE: Pupils/eyes: Equal round and reactive to light, no orbital or periorbital ecchymosis or edema. No scleral icterus, subconjunctival hemorrhage, no injection. EOMs intact Ears: Clear to visualization, no otorrhea, symmetrical Midface: No tenderness, no edema no contusions, no lacerations or abrasions over the midface. No rhinorrhea Oropharynx: Nonbloody, moist mucous membranes noted, no lacerations, no malocclusions, no chipped or missing teeth. NECK: Supple, trachea midline, no masses, no edema, no contusions or abrasions, no obvious JVD. No bruits or thrills over carotid arteries., bilaterally. LUNGS: Equal, clear breath sounds bilaterally without crepitus, no obvious deformities of the chest, no paroxysmal movements, no use of accessory muscles for breathing CARDIAC: Regular rate and rhythm without murmur or extra heart sounds, S1-S2 ABDOMEN/GI: Soft, nontender, nondistended, no abrasions or contusions. + Bowel sounds no distention, hernias or scars. Without obvious ascites PELVIS: Stable to iliac and anterior/posterior manipulation with slight left lateral hip tenderness RECTAL: Deferred rectal, normal, symmetric gluteal tone. No evidence of hemorrhoids or fissures. EXT: on left upper extremity, normal and symmetric movement limited to , normal range of motion, noedema, distal CMS intact ??4. Capillary refill less than 3 seconds and pedal/radial pulses intact. SKIN: No lacerations, abrasions or contusions on complete anterior and posterior skin exam. NEURO: Mental Status: Awake and alert to person place and time Cranial Nerves: CN II-XII intact Motor: No obvious tics or tremors. Normal 5/5 strength in all tested muscle groups. Sensory: Intact to touch SPINE: No step-off, tenderness midline or paraspinal, edema or eccymosis over cervical,thoracic or lumbar spines GCS: 15 (6 - Follows simple motor commands, 5 - Alert and oriented, 4 - Opens eyes on own) LABORATORY: Recent Labs 12/14/17 0000 WBC 11.4* HGB 12.2 HCT 35.0* PLATELET 195 PT 11.2 INR 1.0 PTT 24* Recent Labs 12/14/17 0000 NA 140 K 4.6 CL 103 CO2 26 BUN 13 CREATININE 0.92 GLUCOSE 124 CALCIUM 8.4* RADIOLOGY: (include date, findings, and impression) FAST 12/14: negative CXR 12/13: Pelvis 12/14:IMPRESSION Nondisplaced left posterior acetabular wall fracture. ?? I have personally reviewed the image(s) and the residents interpretation and agree with the findings, Nayely Hernández at 12/14/2017 9:[address] Head and C-Spine 12/13:FINDINGS: HEAD: Scott-white interface appears relatively well differentiated. Lateral ventricles appear relatively symmetric. Basal cisterns appear patent. No global mass effect, midline shift, herniation, large space-occupying process appreciated. No acute intracranial hemorrhage identified. Included paranasal sinuses: Mild scattered mucosal thickening. Mastoid air cells: Clear. Calvarium: No depressed fracture seen. Extracranial soft tissues: Unremarkable. ?? CERVICAL SPINE: Alignment: No evidence of acute traumatic malalignment. Vertebrae: No acute fracture identified. Intervertebral disc spaces: Preserved. Prevertebral soft tissues: Unremarkable. ?? IMPRESSION No acute intracranial hemorrhage, depressed calvarial fracture, or cervical vertebral osseous injury identified. ?? Chest/Abd/pelvis with T and L spine 12/13- FINDINGS: CHEST: Lungs/Pleura: Hypoventilatory dependent changes, slightly more prominent in the lingula. No confluent airspace opacity otherwise identified. No pleural effusion or pneumothorax seen. Mediastinum/Margo: Unremarkable. Heart: Unremarkable. Vasculature: Nonaneurysmal thoracic aorta. ?? ABDOMEN/PELVIS: Liver: Nonspecific millimetric hypodensity too small to characterize. Gallbladder: Unremarkable. Spleen: Unremarkable. Pancreas: Unremarkable. Adrenal Glands: Unremarkable. Kidneys: Unremarkable. Urinary bladder: Unremarkable. ?? GI: Nonspecific mildly prominent RIGHT lower quadrant small bowel loops with some air-fluid levels. Mesentery/Peritoneum: No free air identified. No free fluid seen. Lymphatic System: No lymphadenopathy identified. Vasculature: Nonaneurysmal abdominal aorta. ?? Nonspinal Osseous Structures: Mildly displaced acute fracture of the LEFT acetabular posterior wall. ?? Thoracic spine: No acute fracture or traumatic malalignment appreciated on the coronal/sagittal images; axial images excluded portions of the spine throughout. ?? Lumbar spine: No acute fracture or traumatic malalignment appreciated on the coronal/sagittal images; axial images excluded large portions of the spine throughout. ?? IMPRESSION 1. Mildly displaced acute fracture of the LEFT acetabular posterior wall. 2. No acute thoracic /lumbar vertebral osseous injury identified; however, the axial images exclude large portions of the spine throughout rendering suboptimal assessment. ?? Extremities- Right shoulder 12/14: ??IMPRESSION FINDINGS/IMPRESSION: No acute fracture or dislocation identified. ?? Right wrist 12/14: IMPRESSION FINDINGS/IMPRESSION: Cast material obscures osseous and soft tissue detail, with improved now near-anatomic alignment of the previously described distal radial fracture. ?? Preliminary report signed by: Ninfa Mcpherson at 12/14/2017 2:48 AM I have personally reviewed the image(s) and the residents interpretation and agree with the findings, Jhonatan Napier at 12/14/2017 3:18 AM Right knee 12/14: IMPRESSION Schatzker II tibial plateau fracture with vertical fracture line extending to the lateral tibial plateau and intercondylar tibial eminence. No medial tibial plateau involvement. I measure the lateral tibial plateau depression at 1.1 cm on series 601 image 36. ?? SSMENT/SUMMARY OF INJURIES: 52 y.o. female s/p fall from horse. Injuries include: 1. Right tibial plateau fracture 2. Right distal radial fracture 3. Left acetabular posterior wall fracture 4. 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 If still present at DC, follow up at trauma clinic or PCP. HEME: -Acute Blood Loss Anemia- Continue to monitor CBC and follow as clinically relevant. Replete if less than 7g/dL. Monitor for hemodynamic changes. ENDO: - without active issue MSK: NWB in RUE / RLE / LLE -right radial fx s/p ORIF - right tibial plateau fx s/p ORIF - Left post acetabular fx: ID: - leukocytosis- 8.4 from 11.1. Continue to monitor and trend -follow for s&s of infection; alfonso cx temp 38 or greater CODE STATUS: - full code LINES: - PIV, ramirez PROPHYLAXIS -DVT prophylaxis: SCD, lovenox sq -GI prophylaxis: not indicated DISPO/Discharge Planning: -floor status -CRC working on d/c plan pending PT OT recs CONSULTS: Ortho 12/15 ASSESSMENT / PLAN: Daphne Pickard is a 52 y.o. female 1 Day Post-Op ORIF right distal radius andright tibial plateau fx. She is recovering as expected and pain is controlled. ?? Activity: NWB BLE, bldsoe beace locked in extension, can platform weight bear through RUE DVT prophylaxis: per primary, recommend lovenox Closure: Resorbable sutures Dressing: Guze/ABDs, in SABC x 4 weeks Antibiotics: periop ancef ?? Filippo Dickson MD 12/15/2017 ? No future appointments. ? Active issues to be addressed at discharge: none Incidental Findings: (none as of 12/15) [] Incidental Findings Form Completed Jason Shannon APRN 12/15/2017 Trauma pager [phone] * Filippo Dickson MD - 12/15/2017 1:46 PM EDT I spoke with Ms. Pickard at the bedside this afternoon with additional examination of the LLE as outlined below. LLE -Skin intact, no abrasions/open wounds -No TTP over hip, femur, knee, tib/fib, ankle, foot -No pain with AROM of hip, knee, ankle, and toes -Motor intact (5/5) hip flexion/extension, knee flexion/extension, TA/EHL/FHL/GS -Sensory intact to light touch in lat fem cut/fem/sural/saph/SP/DP/T distributions -Brisk capillary refill distally, foot warm/well-perfused A plan of possible ORIF of the left posterior wall acetabulum fracture was discussed and all of herquestions were answered. Filippo Dickson MD Orthopaedic Surgery, PGY-1 Pager: [phone] * Katherin Beltrán DT - 12/15/2017 10:45 AM EDT Nutrition Services - Initial Note Daphne Pickard : 1965 AGE: 52 y.o. Patient Active Problem List Diagnosis Date Noted ??? Hospital-Trauma 12/14/2017 ??? Hospital-Fracture of right tibial plateau 12/14/2017 ??? Hospital-Radius/ulna fracture, right, closed, initial encounter 12/14/2017 ??? Hospital-Closed fracture of posterior wall of left acetabulum 12/14/2017 Reason for Nutrition Intervention: Diagnosis Diet Order: Regular Appetite: Fine- per pt Food allergies: NKFA Chewing/Swallowing difficulty: None noted- per pt Ht Readings from Last 3 Encounters: 12/14/17 165.1 cm (5' 5) Wt Readings from Last 3 Encounters: 12/14/17 74.8 kg (165 lb) Body mass index is 27.46 kg/(m^2). Assessment: Patient seen for diagnosis- Trauma. Pt informed of current regular diet order. Pt had no questions and stated nutrition hadn't been her top focus as she had been experiencing a lot of pain d/t injuries. She reported a fine appetite without difficulty chewing or swallowing. She is tolerating current diet without nausea or vomiting. Pt had not yet ordered breakfast however stated she did consume 2 red jello's and coffee today 12/15. Pt was agreeable to a snack of a green apple cut up (for fiber per pt) and a vanilla Boost Plus. Organ Grinder ordered said snack at time of visit. Pt stated she loves Oui yogurt. Organ Grinder encouraged pt she can have family bring in favorite foods (yogurt) and place in unit refrigerator with name, room and date. Pt had room service menu at bedside. Writereducated pt on ordering procedure and timelines for hot foods. Organ Grinder encouraged pt order 3 meals qd with a protein source. Informed pt of small portions are available should she request. Pt agreeable to dietary services open meal containers and cut up all foods daily. Organ Grinder set up said request. Pt also agreeable to Boost Plus 2x/day at snack times with fresh fruit snacks added (green apple cut up and a banana). Organ Grinder set up. Patient had no further questions at this time. Provided diet officecontact information and made sure pt knew her room #. Pt thankful for nutrition visit. Encouraged patient to contact Food and Nutrition services with any questions that may arise and for meal orders.Nutrition will continue to monitor and follow up with pt to further assess level of PO intake and appetite. Nutrition Plan: Continue current diet. Open meal containers. Cut up all foods. Recommend Daily Multi Vitamins. Added snacks: Mid-morning- green apple cut up. Mid-afternoon- banana. Boost Plus 2x/day. Monitor weight. Encourage good po intake. Support and encouragement provided. Nutrition services to follow weekly thru hospital course unless consulted in the interim. NICOLAS Clayton * Filippo Dickson MD - 12/15/2017 9:50 AM EDT ORTHOPAEDIC SURGERY INPATIENT PROGRESS NOTE Patient Name: Daphne Pickard Age: 52 y.o. Surgery/Issue: ORIF right tibial plateau fx and ORIF right distal radius fx Attending: Heather Date of surgery: 12/14/2017 SUBJECTIVE / INTERVAL HISTORY: - Pain well controlled - Denies chest pain, dyspnea, or N/V. Good po intake FOCUSED REVIEW OF SYSTEMS: as above. Active Hospital Problems Diagnosis ??? Trauma ??? Fracture of right tibial plateau ??? Radius/ulna fracture, right, closed, initial encounter ??? Closed fracture of posterior wall of left acetabulum Resolved Hospital Problems Diagnosis Date Resolved No resolved problems to display. There are no active non-hospital problems to display for this patient. MEDICATIONS: ??? sodium chloride 0.9 % flush 5 mL ??? sodium chloride 0.9 % flush 5-20 mL ??? lidocaine (XYLOCAINE) 10 mg/mL (1 %) injection 3 mg ??? naloxone (NARCAN) injection 0.2 mg ??? enoxaparin (LOVENOX) injection 30 mg ??? senna-docusate (PERICOLACE) 8.6-50 mg per tablet 2 tablet ??? bisacodyl (DULCOLAX) suppository 10 mg ??? acetaminophen (TYLENOL) tablet 1,000 mg ??? BUpivacaine (PF) (MARCAINE) 0.25 % (2.5 mg/mL) injection ??? polyethylene glycol (MIRALAX) packet 17 g ??? oxyCODONE (ROXICODONE) immediate release tablet 10 mg ??? HYDROmorphone (DILAUDID) injection 0.2 mg OBJECTIVE: Temp: [36.7 ??C (98.1 ??F)-37.6 ??C (99.7 ??F)] Heart Rate: [84-95] Resp: [13-19] BP: (103-154)/(61-100) Intake/Output Summary (Last 24 hours) at 12/15/17 0950 Last data filed at 12/15/17 0900 Gross per 24 hour Intake 840 ml Output 3075 ml Net -2235 ml Body mass index is 27.46 kg/(m^2). PE: General: awake/alert, responds to questions CV: RRR assessed peripherally Resp: Breathing comfortably on RA RUE: Cast in place, bivalveled Sensation intact to light touch in ax/r/m/u distributions Motor intact to digit flexion/extension, AIN, PIN, IO intact Brisk capillary refill distally, fingers warm/well-perfused. RLE: Mepilex dressing c/d/i Bishnu brace in locked in extension in place. Sensory intact to light touch in lat fem cut/fem/sural/saph/SP/DP/T distributions Motor intact to FHL/EHL/TA, knee extension/flexion, hip extension/flexion Brisk capillary refill distally, foot warm/well-perfused 2+ DP/PT pulses Labs: Last 3 wbc, hgb, hct plt Recent Labs 12/15/17 0822 12/14/17 0000 WBC 8.1 11.4* HGB 10.5* 12.2 HCT 29.6* 35.0* PLATELET 145 195 Last 3 Lytes Recent Labs 12/15/17 0822 12/14/17 0000 NA 143 140 K 3.8 4.6 CL 103 103 CO2 25 26 BUN 9 13 CREATININE 0.83 0.92 IMAGING: XR right knee 12/14/17 Right tibial plateau fracture now with anatomic alignment s/p ORIF with plate and screws. XR right wrist 12/14/17 Anatomic alignment of the distal radius fracture s/p ORIF with plate and screws. XR pelvis AP and Judets 12/14/2017 Left posterior acetabular wall fracture with displacement similar to appearance from previous imaging. ASSESSMENT / PLAN: Daphne Pickard is a 52 y.o. female 1 Day Post-Op ORIF right distal radius andright tibial plateau fx. She is recovering as expected and pain is controlled. Activity: NWB BLE, bldsoe beace locked in extension, can platform weight bear through RUE DVT prophylaxis: per primary, recommend lovenox Closure: Resorbable sutures Dressing: Guze/ABDs, in SABC x 4 weeks Antibiotics: periop monieef Filippo Dickson MD 12/15/2017 No future appointments. Associated attestation - Reinaldo Romero MD - 12/15/2017 1:24 PM EDT I saw and evaluated the patient and I agree with the note as documented by Dr. Dickson with the following alterations and/or additions: Ms. Pickard is postop day 1 from ORIF of her right distal radius and right tibial plateau and examination under anesthesia radiographically of the left hip. She is doing well postoperatively. Pain is well controlled. I discussed the nature of her injuries and expectations for recovery with her and her fianc??. They were in understanding and all of their questions were answered to their satisfaction. Plan will be for possible ORIF of the left posterior wall acetabulum either later this week or early next week depending on her condition and OR availability. * Kimani Dobson MD - 12/14/2017 5:15 PM EDT ORTHOPAEDIC SURGERY INPATIENT PROGRESS NOTE Patient Name: Daphne Pickard Age: 52 y.o. Surgery/Issue: ORIF right tibial plateau fx and ORIF right distal radius fx Attending: Heather Date of surgery: 12/14/2017 SUBJECTIVE / INTERVAL HISTORY: - Sore from surgery - happy to be done with the procedure. - Pain well controlled - Denies chest pain, dyspnea, or N/V. FOCUSED REVIEW OF SYSTEMS: as above. Active Hospital Problems Diagnosis ??? Trauma ??? Fracture of right tibial plateau ??? Radius/ulna fracture, right, closed, initial encounter ??? Closed fracture of posterior wall of left acetabulum Resolved Hospital Problems Diagnosis Date Resolved No resolved problems to display. There are no active non-hospital problems to display for this patient. MEDICATIONS: ??? sodium chloride 0.9 % flush 5 mL ??? sodium chloride 0.9 % flush 5-20 mL ??? lidocaine (XYLOCAINE) 10 mg/mL (1 %) injection 3 mg ??? naloxone (NARCAN) injection 0.2 mg ??? [START ON 12/15/2017] enoxaparin (LOVENOX) injection 30 mg ??? senna-docusate (PERICOLACE) 8.6-50 mg per tablet 2 tablet ??? bisacodyl (DULCOLAX) suppository 10 mg ??? acetaminophen (TYLENOL) tablet 1,000 mg ??? BUpivacaine (PF) (MARCAINE) 0.25 % (2.5 mg/mL) injection ??? polyethylene glycol (MIRALAX) packet 17 g ??? oxyCODONE (ROXICODONE) immediate release tablet 10 mg ??? HYDROmorphone (DILAUDID) injection 0.2 mg OBJECTIVE: Temp: [36.9 ??C (98.4 ??F)-37.6 ??C (99.7 ??F)] Heart Rate: [81-99] Resp: [8-19] BP: (102-154)/(48-100) Intake/Output Summary (Last 24 hours) at 12/14/17 1908 Last data filed at 12/14/17 1618 Gross per 24 hour Intake 600 ml Output 1325 ml Net -725 ml Body mass index is 27.46 kg/(m^2). PE: General: awake/alert, responds to questions CV: RRR assessed peripherally Resp: Breathing comfortably on RA RUE: Cast in place, bivalveled Sensation intact to light touch in ax/r/m/u distributions Motor intact to wrist digit flexion/extension Brisk capillary refill distally, fingers warm/well-perfused. RLE: Mepilex-bordered dressing c/d/i Knee with more swelling than at time of sugery Sensory intact to light touch in lat fem cut/fem/sural/saph/SP/DP/T distributions Motor intact to FHL/EHL/TA, knee extension/flexion, hip extension/flexion Brisk capillary refill distally, foot warm/well-perfused 2+ DP/PT pulses Labs: Last 3 wbc, hgb, hct plt Recent Labs 12/14/17 0000 WBC 11.4* HGB 12.2 HCT 35.0* PLATELET 195 Last 3 Lytes Recent Labs 12/14/17 0000 NA 140 K 4.6 CL 103 CO2 26 BUN 13 CREATININE 0.92 IMAGING: XR right knee 12/14/17 Right tibial plateau fracture now with anatomic alignment s/p ORIF with plate and screws. XR right wrist 12/14/17 Anatomic alignment of the distal radius fracture s/p ORIF with plate and screws. XR pelvis AP and Judets 12/14/2017 Left posterior acetabular wall fracture with displacement similar to appearance from previous imaging. ASSESSMENT / PLAN: Daphne Pickard is a 52 y.o. female Day of Surgery ORIF right distal radius and right tibial plateau fx. She is recovering as expected and pain is controlled. Activity: NWB BLE, bldsoe beace locked in extension, can platform weight bear through RUE DVT prophylaxis: per primary, recommend lovenox Closure: Resorbable sutures Dressing: Guze/ABDs, in SABC x 4 weeks Antibiotics: periop ancef Kimani Dobson MD 12/14/2017 No future appointments. * Priya Whitaker, PATIENT PORTAL REPRESENTATIVE - 12/14/2017 5:15 PM EDT Trauma and Acute Care Surgery Post-Operative Progress Note Daphne Pickard 12/14/2017 Surgery/Issue:Procedure(s): @ORIF TIBIAL PLATEAU (PROXIMAL) UNICONDYLAR (WRVU 13.41) ORIF DISTAL RADIUS, 3 OR MORE FRAGMENTS (WRVU 14.38) MODIFIER VARIABLE ANGLE DISTAL RADIUS SYNTHES MODIFIER, 3.5 VA PROXIMAL TIBIAL PLATES, SYNTHES HIP INTRAOP RADIOLOGIC EXAMINATION, UNILATERAL, W PELVIS; 1 VIEW (WRVU 0.18) Attending: Reinaldo Romero Date of surgery: 12/14/2017 Subjective/Events: Pt was seen and examined. Pain well controlled after dilaudid PRN. Some slight numbness noted to top of right foot. Good peripheral pulse, movement and cap refil noted. Denies nausea, vomiting, chest pain, shortness of breath. Spines clear per CT spines, cleared clinically without stepoffs or tenderness to palpation. c- collar removed. Of noted, patient denies taking any prescription meds, denies any medication allergies. Chart updated. Objcetive: Temp: [36.9 ??C (98.4 ??F)-37.6 ??C (99.7 ??F)] Heart Rate: [81-99] Resp: [8-19] BP: (102-154)/(48-100) Intake/Output Summary (Last 24 hours) at 12/14/17 1715 Last data filed at 12/14/17 1618 Gross per 24 hour Intake 600 ml Output 1325 ml Net -725 ml Lab Results Component Value Date NA 140 12/14/2017 K 4.6 12/14/2017 CL 103 12/14/2017 CO2 26 12/14/2017 BUN 13 12/14/2017 CREATININE 0.92 12/14/2017 GLUCOSE 124 12/14/2017 CALCIUM 8.4 (L) 12/14/2017 Lab Results Component Value Date WBC 11.4 (H) 12/14/2017 HGB 12.2 12/14/2017 HCT 35.0 (L) 12/14/2017 MCV 92.6 12/14/2017 PLATELET 195 12/14/2017 Lab Results Component Value Date INR 1.0 12/14/2017 Exam: General: appears in no acute distress, A/O x 3 HEENT: NC/AT Chest: CTA b/l, no w/r/r Cardiac: RRR Abdomen: soft, NT/ND, benign Extremity: RLE in brace with surgical dressings clean dry and intact. Right forearm in cast with good movement and sensation to fingers, some pain to left acetabular area to palpation. Scattered eccyhmosis to LLE. Incision: dressing c/d/i. No evidence of hematoma/seroma/infection A/P: Daphne Pickard is a 52 y.o. female patient s/p ORIF distal radius and right tibial plateau 1. Pain- controlled with tylenol caren, prn oxy and hydromorphone 2. Nausea- denies 3. Specific c/o- none 4. Volume status- Urine output adequate, saline lock IV, will monitor 5. DVT prophylaxis- SCDs, start lovenox in am per ortho orders 6. Disposition- continue post op plan on floor 7. Diet- advance to regular diet as tolerated Priya Whitaker APRN Trauma and Acute Care Surgery Trauma pager [phone] * Bharath Caruso RN - 12/14/2017 4:20 PM EDT Patient returned from surgery via bed. All vitals WNL. Patient remains alert to voice and complaining of pain in right arm. PRN pain medication given. De Baca brace in place to right leg and hard splint in place to right arm. Both right arm and leg elevated with pillow support. Will continue to monitor. * Gini Cuba RN - 12/14/2017 2:17 PM EDT 1400- Break relief. * Peter Bynum OT - 12/14/2017 9:29 AM EDT OCCUPATIONAL THERAPY Order received and chart reviewed. Pt scheduled for OR today. OT will follow up as appropriate. Peter Bynum OT Pager: [phone] * Rocio Sherman RN - 12/14/2017 9:18 AM EDT Hand off received from Felicita Mcconnell RN. * Felicita Vogt RN - 12/14/2017 8:18 AM EDT Handoff report obtained from HAYLEY Lovell on 3W. Pt currently in xray and then to go to CT and come to OR holding after. * Karin Hawkins RN - 12/14/2017 3:56 AM EDT Pt arrived to floor from ED s/p fall from horse. Pt alert and oriented x4. Pt reports pain 9/10. Ptdenies any chest pain, shortness of breath, dizziness or nausea. Refer to doc flow sheets for full assessment. in room at bedside. Patient oriented to room with call ann within reach. Will continue to monitor. documented in this encounter H&P Notes * Joyce Parra - 12/20/2017 5:48 AM EDT 24-HOUR UPDATE Daphne Miguel Ángel Pickard was seen in the med/surg unit. All questions were answered. Stable for surgery asscheduled. JOYCE PARRA MD * Joyce Parra - 12/17/2017 6:12 AM EDT The patient's history and physical exam have been reviewed and completed. There has been no interval change from that of the pre-operative history and physical exam done within the last 30 days. JOYCE PARRA MD * Nir Bhatti - 12/16/2017 5:51 AM EDT The patient's history and physical exam have been reviewed and completed. There has been no interval change from that of the pre-operative history and physical exam done within the last 30 days. * Reinaldo Romero MD - 12/14/2017 6:16 AM EDT 24-Hour Pre-Operative H&P Update Patient seen and examined in the med/surg unit. I have reviewed, and agree with, the clinical history, physical examination findings, impression, and plan, as detailed in the original H&P Note. Patient is ready to proceed with the planned surgical procedure. JOYCE PARRA MD I saw and evaluated the patient and I agree with the note as documented. I was asked by my colleague, Dr. Mejias, to evaluate this patient for her multiple injuries. Ms. Pickard is a 52-year-old female who fell off of a horse and suffered multiple injuries. She was found to have a right split depression lateral tibial plateau fracture along with a right distal radius intra-articular comminuted fracture as well as a left posterior wall fracture. Plan will be for operative fixation of the tibial plateau and right distal radius and examination under anesthesia of the left acetabulum and hip. I discussed treatment options with the patient. I discussed nonoperative versus operative management of both the right distal radius and the right tibial plateau fractures. She elected to proceed with operative management which I think is very reasonable in her situation. I discussed risks including butnot limited to: Bleeding, infection, damage to nerves and vessels, need for further surgery, malunion, nonunion, hardware failure, loosening, stiffness, wound healing problems, blood clots including deep vein thromboses and pulmonary emboli, heart attack, stroke, , need for removal of hardwarelater down the line. I also discussed the risk of posttraumatic osteoarthritis of the involved joints especially the right knee. She expressed understanding and she signed informed consent prior to the procedure. * Russell Lewis MD - 12/14/2017 12:27 AM EDT TRAUMA & ACUTE SURGICAL CARE HISTORY AND PHYSICAL Patient Name: Daphne Pickard Level of Activation: alert MR#: [id number] [ ]Scene Call or [ x]Hospital Transfer : [id number] CC/MECHANISM OF INJURY: 52 y.o. Female s/p fall HISTORY OF PRESENT ILLNESS: Daphne Pickard is a 52 y.o. female presents to [facility] [place] s/p fall. Description of events leading up to injury includes she was riding a horse when he bucked her off. She landed on her right arm and legbut did not hit her head. No LOC. Immediately after the fall she had significant pain in right knee. Her fiance was able to call EMS. She was taken to [facility] where she was noted to have multiple orthopedic injuries including a right radial and right tibial plateau fracture. Her right arm was placed in a CARMEN splint. She was transferred to [facility] [place] for further care and was hemodynamically normal en route. Primary survey revealed: intact airway, equal breath sounds/respirations, present 2+ peripheral pulses with stable vital signs and no signs of bleeding, GCS 15 (6 - Follows simple motor commands, 5 -Alert and oriented, 4 - Opens eyes on own), and complete exposure. Secondary survey is as follows. PAST MEDICAL HISTORY: No past medical history on file. PAST SURGICAL HISTORY: Past Surgical History: Procedure Laterality Date ??? PRO COLONOSCOPY, DIAGNOSTIC N/A 06/25/2017 COLONOSCOPY, DIAGNOSTIC performed by Kimani Rojas MD at [facility] ENDOSCOPY ALLERGIES: Allergies Allergen Reactions ??? Gabapentin (Bulk) MEDICATIONS: Multivitamin FAMILY HISTORY: non-contributory in any family member SOCIAL HISTORY: Alcohol: none Tobacco: former, quit 4 years ago Drug: no history of illicit drug use REVIEW OF SYSTEMS: complete 10 system ROS performed with pertinent findings below. Pertinent items are noted in HPI. PHYSICAL EXAM: VITALS: Most Recent Vitals: 12/14/17 0000 BP: 123/48 Pulse: 99 Resp: 11 SpO2: 95% GENERAL: alert, awake and no apparent distress HEAD: Normocephalic, without obvious abnormality, atraumatic FACE: Pupils: equal, round, reactive to light, no periorbital ecchymoses; Tympanic Membranes: clear to visualization; Midface: no tenderness, no swelling, no contusions, no lacerations and no abrasions over entire face Oropharynx: nonbloody, moist mucous membranes, no lacerations, no malocclusion and no chipped or missing teeth NECK: no tenderness to palpation, trachea midline, no masses, no swelling, no contusions and no abrasions LUNG: equal, clear breath sounds bilaterally and no crepitus CARDIAC: Regular rate and rhythm or without murmur or extra heart sounds ABDOMEN/GI: soft, non-tender, non-distended, no abrasions and no contusions PELVIS: stable to AP and/or lateral compression RECTAL: Sphincter tone deferred with no gross blood; Voluntary anal contraction normal EXTREMITIES: normal and symmetric movement, normal range of motion, no joint swelling. Tenderness over right anterior leg SPINE: no deformity, no stepoffs, no tenderness to palpation and no abrasions over cervical spine, thoracic spine and/or lumbar spine SKIN: ecchymosis over left lateral leg. no lacerations, abrasions on complete skin exam NEURO: Mental Status: awake and alert, oriented to time, date, person, place Cranial Nerves: CN II - XII intact Motor: normal 5/5 strength LUE and LLE. 4/5 in RLE and RUE Sensory: no sensory deficits noted LABORATORY: Recent Results (from the past 24 hour(s)) Rapid Drug Screen, Urine (PRETTY Request) Result Value Ref Range PRETTY Conf Requested Yes PRETTY Requested See Comment Urinalysis with reflex Culture Result Value Ref Range Glucose UA Negative Negative mg/dL Protein UA Negative Negative mg/dL Bilirubin UA Negative Negative mg/dL Urobilinogen UA Normal Normal mg/dL pH UA 6.0 5.0 - 8.0 Blood UA Small (A) Negative mg/dL Ketones UA Negative Negative mg/dL Nitrite UA Negative Negative Leukocytes UA Negative Negative mcL Appearance UA Clear Clear Spec Treichlers UA >1.035 (H) 1.002 - 1.030 Color UA Straw Yellow Culture Reflexed No Urinalysis Microscopic Exam Result Value Ref Range RBC UA 3 0 - 4 /HPF WBC UA 2 0 - 5 /HPF Hemogram Result Value Ref Range WBC 11.4 (H) 4.0 - 9.5 x10(3)/mcL RBC 3.78 (L) 4.00 - 5.21 x10(6)/mcL Hemoglobin 12.2 11.7 - 15.5 gm/dL Hematocrit 35.0 (L) 35.7 - 45.8 % MCV 92.6 82.6 - 94.4 fL MCH 32.3 (H) 27.1 - 32.0 pg MCHC 34.9 31.7 - 35.0 gm/dL Platelets 195 145 - 357 x10(3)/mcL RDWSD 40.1 37.0 - 46.0 fL RDWCV 11.9 11.5 - 14.1 % MPV 8.5 7.6 - 12.9 fL nRBC % Auto 0.0 % nRBC Abs Auto 0.000 0.000 - 0.000 x10(3)/mcL Differential, Automated Result Value Ref Range Neutrophils % 83.9 % Neutr Abs (ANC) 9.56 (H) 1.70 - 6.10 x10(3)/mcL Lymphocytes % 9.8 % Lymphocytes Abs 1.1 0.9 - 3.2 x10(3)/mcL Monocytes % 5.8 % Monocyte Abs 0.7 0.3 - 0.9 x10(3)/mcL Eosinophils % 0.0 % Eosinophils Abs 0.0 0.0 - 0.4 x10(3)/mcL Basophils % 0.2 % Basophils Abs 0.0 0.0 - 0.1 x10(3)/mcL Immature Gran % 0.30 % Tammi Gran Abs 0.03 0.00 - 0.04 x10(3)/mcL Gold Tube HOLD Result Value Ref Range Gold Hold Sample in lab. UA: small blood RADIOLOGY: FAST Scan: neg CT Head/CT C-Spine: FINDINGS: HEAD: Scott-white interface appears relatively well differentiated. Lateral ventricles appear relatively symmetric. Basal cisterns appear patent. No global mass effect, midline shift, herniation, large space-occupying process appreciated. No acute intracranial hemorrhage identified. Included paranasal sinuses: Mild scattered mucosal thickening. Mastoid air cells: Clear. Calvarium: No depressed fracture seen. Extracranial soft tissues: Unremarkable. ?? CERVICAL SPINE: Alignment: No evidence of acute traumatic malalignment. Vertebrae: No acute fracture identified. Intervertebral disc spaces: Preserved. Prevertebral soft tissues: Unremarkable. ?? IMPRESSION No acute intracranial hemorrhage, depressed calvarial fracture, or cervical vertebral osseous injury identified. ?? CT Chest/abdomen/pelvis FINDINGS: CHEST: Lungs/Pleura: Hypoventilatory dependent changes, slightly more prominent in the lingula. No confluent airspace opacity otherwise identified. No pleural effusion or pneumothorax seen. Mediastinum/Margo: Unremarkable. Heart: Unremarkable. Vasculature: Nonaneurysmal thoracic aorta. ?? ABDOMEN/PELVIS: Liver: Nonspecific millimetric hypodensity too small to characterize. Gallbladder: Unremarkable. Spleen: Unremarkable. Pancreas: Unremarkable. Adrenal Glands: Unremarkable. Kidneys: Unremarkable. Urinary bladder: Unremarkable. ?? GI: Nonspecific mildly prominent RIGHT lower quadrant small bowel loops with some air-fluid levels. Mesentery/Peritoneum: No free air identified. No free fluid seen. Lymphatic System: No lymphadenopathy identified. Vasculature: Nonaneurysmal abdominal aorta. ?? Nonspinal Osseous Structures: Mildly displaced acute fracture of the LEFT acetabular posterior wall. ?? Thoracic spine: No acute fracture or traumatic malalignment appreciated on the coronal/sagittal images; axial images excluded portions of the spine throughout. ?? Lumbar spine: No acute fracture or traumatic malalignment appreciated on the coronal/sagittal images; axial images excluded large portions of the spine throughout. ?? IMPRESSION 1. Mildly displaced acute fracture of the LEFT acetabular posterior wall. 2. No acute thoracic /lumbar vertebral osseous injury identified; however, the axial images exclude large portions of the spine throughout rendering suboptimal assessment. CT T&L Spine No acute fractures XR Left Knee Oblique and lateral views of the LEFT knee demonstrate no obvious displaced Fracture XR Right knee Comminuted fracture of the tibial plateau, predominantly involving the lateral aspect extending to the metaphysis as well as the region of the tibial spines with intra-articular extension. Fracture line may be extending across the medial aspect. Hemarthrosis XR Right Wrist Comminuted intra-articular fracture of the distal radial metaphysis with minimal displacement as well as minimal dorsal angulation of the distal components. Incidental Radiographic Findings: None Procedures Performed: Intubation: No Ramirez Cath: Yes-OSH, 16Fr Central Line: No Chest Tube: No Sutures: No Other: Assessment/Summary of Injuries: 52 y.o. female s/p fall. Injuries identified on primary and secondary survey include: 1. Right tibial plateau fracture 2. Right distal radial fracture 3. Left acetabular posterior wall fracture 4. Scattered ecchymosis Plan: ?? Admit to Trauma Surgery Service in good condition, Russell Greene MD, attending ?? NPO ?? IV Fluids: 100 mL/hr ?? Consulting Services and plans: 1. Orthopedics: plan pending ?? Spine status: trauma ?? Pain control: tylenol, oxycodone ?? DVT prophylaxis: SCDs ?? GI prophylaxis: none indicated ?? Tertiary survey in AM ?? DISPO: floor Padmaja Grady MD Trauma Surgery #[id number] 12/14/2017 ADDENDUM: I have independently seen and evaluated the patient. I agree with the assessment and planlisted above with the following additions: Daphne Pickadr is a 52 y.o. female s/p fall from horse. Unhelmeted. No LOC. Noted to have multiple extremity injuries at OSH. Transferred for continued care. Primary and secondary survey as documented above by Dr. Grady. 1. Admit to trauma surgery service, floor status 2. NPO, IVF 3. IV pain control 4. O/S for multiple extremity fractures 5. Tertiary survey in AM I certify that the patient requires: [ ] Inpatient admission meeting the two midnight rule for acute care based on the diagnosis and/or management of NONE. [x] Obs admission RUSSELL LEWIS MD documented in this encounter ED Notes * Bee Cardozo RN - 12/14/2017 2:44 AM EDT Updated report given to HAYLEY Frazier, [address] [place]. Pending transpo. * Bee Cardozo RN - 12/14/2017 1:55 AM EDT Report called to HAYLEY Frazier, [address] [place]. Pending admit after ortho completes splinting. * Kimberly Lin MD - 12/14/2017 12:23 AM EDT Daphne Pickard is a 52 y.o. female who arrives via EMS as trauma consult from [facility] History obtained by: hospital records, EMS, patient Mechanism of injury: thrown off a horse Loss of Consciousness: No Issues during EMS transport: none If transfer from OSH: Identified injuries: right radial fx, right tibial plateau fx Imaging studies performed: CT head and C spine, XR wrist, knee, CT chest/abd/pelvis PMH: No past medical history on file. MEDS: Current Facility-Administered Medications: ??? citalopram (CeleXA) tablet 10 mg, 10 mg, Oral, Daily, Linshaw, Dominic, MD ??? sodium chloride 0.9 % flush 5 mL, 5 mL, Intravenous, BID, Elver Huddleston MD ??? sodium chloride 0.9 % flush 5-20 mL, 5-20 mL, Intravenous, Q1 Min PRN, Elver Huddleston MD ??? lidocaine (XYLOCAINE) 10 mg/mL (1 %) injection 3 mg, 0.3 mL, Subcutaneous, Once PRN, Elver Huddleston MD ??? famotidine (PEPCID) tablet 20 mg, 20 mg, Oral, BID OR famotidine (PEPCID) injection 20 mg, 20 mg, Intravenous, BID, Elver Huddleston MD ??? naloxone (NARCAN) injection 0.2 mg, 0.2 mg, Intravenous, Q1 Min PRN, Elver Huddleston MD ??? lactated Ringers infusion 1,000 mL, 1,000 mL, Intravenous, Continuous, Elver Huddleston MD, Last Rate: 100 mL/hr at 12/14/17 0445, 1,000 mL at 12/14/17 0445 ??? [START ON 12/15/2017] enoxaparin (LOVENOX) injection 30 mg, 30 mg, Subcutaneous, 2 times per day, Elver Huddleston MD ??? acetaminophen (TYLENOL) tablet 1,000 mg, 1,000 mg, Oral, Q6H PRN, Elver Huddleston MD ??? oxyCODONE (ROXICODONE) immediate release tablet 5 mg, 5 mg, Oral, Q4H PRN, Elver Huddleston MD ??? HYDROmorphone (DILAUDID) injection 0.4 mg, 0.4 mg, Intravenous, Q2H PRN, Elver Huddleston MD, 0.4 mg at 12/14/17 0439 ALL: Allergies Allergen Reactions ??? Gabapentin (Bulk) SOCIAL HX: Social History Social History ??? Marital status: Single Spouse name: N/A ??? Number of children: N/A ??? Years of education: N/A Social History Main Topics ??? Smoking status: Former Smoker Quit date: 06/25/2010 ??? Smokeless tobacco: Never Used ??? Alcohol use 1.2 oz/week 2 Glasses of wine per week ??? Drug use: Yes Special: Marijuana Comment: infrequent ??? Sexual activity: Not on file Other Topics Concern ??? Not on file Social History Narrative PRIMARY SURVEY: A - talking, protected B - no distress, CTAB C - femoral pulse 2 plus D - GCS15 E - clothing removed Seen and admitted by trauma surgery team - please refer to their notes for further details. Kimberly Lin MD Resident 12/14/17 0613 Associated attestation - Zulema Barrera MD - 12/15/2017 9:23 AM EDT ED ATTENDING ATTESTATION NOTE The patient was seen in conjunction with Dr. Lin, the resident physician. I have independently performed the barnes portions of the history and physical exam. I have reviewed the nursing notes, vitalsigns. I have discussed the details of the case with the resident and agree with the assessment andplan as described in the resident note above unless noted otherwise below. documented in this encounter Miscellaneous Notes * Plan of Care - La Castrejon RN - 12/24/2017 8:13 AM EDT Problem: Patient Care Overview Goal: Plan of Care Review Outcome: Ongoing (Interventions Implemented as Appropriate) 12/24/17 0808 Coping/Psychosocial Plan Of Care Reviewed With patient Plan of Care Review Progress progress towards functional goals is fair OUTCOME EVALUATION NOTE: OUTCOME SUMMARY: Pt expecting to discharge to rehab facility, waiting on bed. Indwelling ramirez in place, draining clear yellow urine. Pt c/o pain and spasms, adequately managed with current scheduled and prn regimen. PLAN MOVING FORWARD: Continue poc INDIVIDUALIZED FALL PREVENTION INTERVENTIONS: Patient-specific fall risk factors per assessment: [current deficits]: Ortho fractures, impulsivity Assistance [level of assistance required for transfers and ambulation]: Full assist Supervision [direct monitoring required during toileting and ADLs]: Full assist Surveillance [continuous indirect monitoring]: christiano Patient-specific fall prevention interventions for sensory deficits provided, if applicable: [X] N/A CPG GOAL OUTCOME EVALUATION: * Plan of Care - Christin Edwrads RN - 12/23/2017 1:20 PM EDT Problem: Skin Integrity Impairment, Risk/Actual (Adult) Goal: Identify Related Risk Factors and Signs and Symptoms Related risk factors and signs and symptoms are identified upon initiation of Human Response Clinical Practice Guideline (CPG) Outcome: Ongoing (Interventions Implemented as Appropriate) 12/23/171312 Skin Integrity Impairment, Risk/Actual Skin Integrity Impairment, Risk/Actual: Related Risk Factors surgery/procedure;traumatic injury Goal: Skin Integrity/Wound Healing Patient will demonstrate the desired outcomes by discharge/transition of care. Outcome: Ongoing (Interventions Implemented as Appropriate) 12/23/171312 Skin Integrity Impairment, Risk/Actual (Adult) Skin Integrity/Wound Healing making progress toward outcome Problem: Patient Care Overview Goal: Plan of Care Review Outcome: Ongoing (Interventions Implemented as Appropriate) 12/23/171312 Coping/Psychosocial Plan Of Care Reviewed With patient Plan of Care Review Progress progress toward functional goals as expected OUTCOME EVALUATION NOTE: OUTCOME SUMMARY: Patient tolerating PO diet. Patients pain treated with scheduled and PRN medication, see MAR. Patient declined to be lift to chair today. Ramirez draining urine. Patient using call ann appropriately. Will continue to monitor. PLAN MOVING FORWARD: -Pain Control -Mobilize -Discharge planning INDIVIDUALIZED FALL PREVENTION: Fall Score: 45 - high Baseline mobility: up at rony Assistance: -Mechanical lift Supervision: -Hands-on for all transfers and ambulation Surveillance: -Bed Alarm/Chair Alarm -Masimo -Purposeful Rounding -Team Care -Bedside Nurse Knowledge Exchange CPG OUTCOME EVALUATION: Goal: Fall Prevention-Safe Patient Handling Outcome: Ongoing (Interventions Implemented as Appropriate) 12/23/17 131 Activity Activity Type activity encouraged Activity Assistance Provided lift team assistance Assistive Device Utilized mechanical lift Restraint Interventions Safety Promotion/Fall Prevention activity supervised;fall prevention program maintained;nonskid shoes/slippers when out of bed;safety round/check completed Positioning Body Position independent Daily Care Interventions Self-Care Promotion independence encouraged;BADL personal objects within reach Albarran Fall Risk History of Falling 0 Secondary Diagnosis 15 Ambulatory Aids 0 Intravenous Therapy/Heparin/Saline Lock 20 Gait/Transferring 10 Mental Status 0 Score 45 OTHER Albarran Fall Risk High Goal: Infection Control Outcome: Ongoing (Interventions Implemented as Appropriate) 12/23/17 1313 Safety Interventions Isolation Precautions standard precautions maintained Infection Prevention environmental surveillance performed;rest/sleep promoted;single patient room provided Coping Strategies Supportive Measures active listening utilized;self-care encouraged;self- responsibility promoted;verbalization of feelings encouraged Goal: Interdisciplinary Rounds/Family Conf Outcome: Ongoing (Interventions Implemented as Appropriate) 12/23/17 1313 Interdisciplinary Rounds/Family Conf Participants patient;nursing Problem: Fracture Orthopaedic (Adult) Goal: Signs and Symptoms of Listed Potential Problems Will be Absent, Minimized or Managed (Fracture Orthopaedic) Signs and symptoms of listed potential problems will be absent, minimized or managed by discharge/transition of care (reference Fracture Orthopaedic (Adult) CPG). Outcome: Ongoing (Interventions Implemented as Appropriate) 12/23/17 1313 Fracture Orthopaedic Problems Assessed (Orthopaedic Fracture) all Problems Present (Orthopaedic Fracture) functional deficit/ self-care deficit;pain;situational response;urinary retention * Plan of Care - Cary Urrutia RN - 12/23/2017 6:56 AM EDT Problem: Skin Integrity Impairment, Risk/Actual (Adult) Goal: Identify Related Risk Factors and Signs and Symptoms Related risk factors and signs and symptoms are identified upon initiation of Human Response Clinical Practice Guideline (CPG) Outcome: Ongoing (Interventions Implemented as Appropriate) 12/21/17 0759 12/22/171657 Skin Integrity Impairment, Risk/Actual Skin Integrity Impairment, Risk/Actual: Related Risk Factors -- surgery/procedure;traumatic injury Signs and Symptoms (Skin Integrity Impairment) edema -- Goal: Skin Integrity/Wound Healing Patient will demonstrate the desired outcomes by discharge/transition of care. Outcome: Ongoing (Interventions Implemented as Appropriate) 12/22/17 165 Skin Integrity Impairment, Risk/Actual (Adult) Skin Integrity/Wound Healing making progress toward outcome Problem: Patient Care Overview Goal: Plan of Care Review Outcome: Ongoing (Interventions Implemented as Appropriate) 12/22/17165712/22/172216 Coping/Psychosocial Plan Of Care Reviewed With -- patient Plan of Care Review Progress progress toward functional goals as expected -- Goal: Fall Prevention-Safe Patient Handling Outcome: Ongoing (Interventions Implemented as Appropriate) 12/22/172216 Activity Activity Type activity encouraged;ROM, active encouraged Activity Assistance Provided lift team assistance Assistive Device Utilized mechanical lift Albarran Fall Risk History of Falling 0 Secondary Diagnosis 15 Ambulatory Aids 0 Intravenous Therapy/Heparin/Saline Lock 20 Gait/Transferring 10 Mental Status 0 Score 45 OTHER Albarran Fall Risk High Restraint Interventions Safety Promotion/Fall Prevention activity supervised;fall prevention program maintained;safety round/check completed Positioning Body Position independent;weight shift assistance provided Daily Care Interventions Self-Care Promotion BADL personal objects within reach Goal: Infection Control Outcome: Ongoing (Interventions Implemented as Appropriate) 12/22/172216 Safety Interventions Isolation Precautions standard precautions maintained Infection Prevention single patient room provided;rest/sleep promoted;environmental surveillance performed Coping Strategies Supportive Measures active listening utilized Problem: Fracture Orthopaedic (Adult) Goal: Signs and Symptoms of Listed Potential Problems Will be Absent, Minimized or Managed (Fracture Orthopaedic) Signs and symptoms of listed potential problems will be absent, minimized or managed by discharge/transition of care (reference Fracture Orthopaedic (Adult) CPG). Outcome: Ongoing (Interventions Implemented as Appropriate) 12/22/172216 Fracture Orthopaedic Problems Assessed (Orthopaedic Fracture) all Problems Present (Orthopaedic Fracture) functional deficit/ self-care deficit;pain;situational response;urinary retention OUTCOME EVALUATION NOTE: OUTCOME SUMMARY: VSS with pt on RA. Ramirez in place, ramirez care provided by staff earlier in shift; see urine output totals in flow-sheets. Pt has reported various pain levels so far this shift, interventions providedas needed. No CP, SOB, N/V reported. No additional s/s of distress reported. Encouraging IS exercises and ROM exercises. PLAN MOVING FORWARD: Monitor VS, pain, NV status; mobilize as tolerated; d/c planning INDIVIDUALIZED FALL PREVENTION INTERVENTIONS: Patient-specific fall risk factors per assessment: [current deficits]: Impaired mobility Assistance [level of assistance required for transfers and ambulation]: Mechanical lift; x2 Supervision [direct monitoring required during toileting and ADLs]: Hands on Surveillance [continuous indirect monitoring]: Masimo, hourly rounding Patient-specific fall prevention interventions for sensory deficits provided, if applicable: [X] No CPG GOAL OUTCOME EVALUATION: Stable * Plan of Care - Christin Edwards RN - 12/22/2017 5:03 PM EDT Problem: Skin Integrity Impairment, Risk/Actual (Adult) Goal: Identify Related Risk Factors and Signs and Symptoms Related risk factors and signs and symptoms are identified upon initiation of Human Response Clinical Practice Guideline (CPG) Outcome: Ongoing (Interventions Implemented as Appropriate) 12/22/171657 Skin Integrity Impairment, Risk/Actual Skin Integrity Impairment, Risk/Actual: Related Risk Factors surgery/procedure;traumatic injury Goal: Skin Integrity/Wound Healing Patient will demonstrate the desired outcomes by discharge/transition of care. Outcome: Ongoing (Interventions Implemented as Appropriate) 12/22/171657 Skin Integrity Impairment, Risk/Actual (Adult) Skin Integrity/Wound Healing making progress toward outcome Problem: Patient Care Overview Goal: Plan of Care Review Outcome: Ongoing (Interventions Implemented as Appropriate) 12/22/171657 Coping/Psychosocial Plan Of Care Reviewed With patient Plan of Care Review Progress progress toward functional goals as expected OUTCOME EVALUATION NOTE: OUTCOME SUMMARY: Patient tolerating PO diet. Patients pain treated with scheduled and PRN medication today, see MAR.Patient worked with PT and OT today. Patient using call ann appropriately. Will continue to monitor. PLAN MOVING FORWARD: -Pain Control -Mobilize -Discharge planning INDIVIDUALIZED FALL PREVENTION: Fall Score: 45 - high Baseline mobility: up at rony Assistance: -Mechanical lift Supervision: -Hands-on for all transfers and ambulation Surveillance: -Bed Alarm/Chair Alarm -Masimo -Purposeful Rounding -Team Care -Bedside Nurse Knowledge Exchange CPG OUTCOME EVALUATION: Goal: Fall Prevention-Safe Patient Handling Outcome: Ongoing (Interventions Implemented as Appropriate) 12/22/1784212/22/171657 Activity Activity Type -- activity encouraged Assistive Device Utilized -- mechanical lift Albarran Fall Risk History of Falling 0 -- Secondary Diagnosis 15 -- Ambulatory Aids 0 -- Intravenous Therapy/Heparin/Saline Lock 20 -- Gait/Transferring 10 -- Mental Status 0 -- Score 45 -- OTHER Albarran Fall Risk High -- Restraint Interventions Safety Promotion/Fall Prevention activity supervised;fall prevention program maintained;safety round/check completed;nonskid shoes/slippers when out of bed -- Positioning Body Position independent -- Daily Care Interventions Self-Care Promotion independence encouraged;BADL personal objects within reach -- Goal: Infection Control Outcome: Ongoing (Interventions Implemented as Appropriate) 12/22/17842 Safety Interventions Isolation Precautions standard precautions maintained Infection Prevention environmental surveillance performed;rest/sleep promoted;single patient room provided Coping Strategies Supportive Measures active listening utilized;relaxation techniques promoted;self-care encouraged;verbalization of feelings encouraged Goal: Interdisciplinary Rounds/Family Conf Outcome: Ongoing (Interventions Implemented as Appropriate) 12/22/17 1658 Interdisciplinary Rounds/Family Conf Participants patient;nursing Problem: Fracture Orthopaedic (Adult) Goal: Signs and Symptoms of Listed Potential Problems Will be Absent, Minimized or Managed (Fracture Orthopaedic) Signs and symptoms of listed potential problems will be absent, minimized or managed by discharge/transition of care (reference Fracture Orthopaedic (Adult) CPG). Outcome: Ongoing (Interventions Implemented as Appropriate) 12/22/17 0843 Fracture Orthopaedic Problems Assessed (Orthopaedic Fracture) all Problems Present (Orthopaedic Fracture) functional deficit/ self-care deficit;pain;situational response * Plan of Care - Peter Bynum OT - 12/22/2017 2:48 PM EDT Occupational Therapy Treatment Note Treatment Number OT: 3 Pertinent History of Current Problem: Daphne Pickard is a 52 y.o. female s/p ORIF of the right distal radius and right tibial plateau on 12/14 and now 2 Days Post-Op from ORIF left posterior acetabulum fx Precautions/Restrictions: fall, hip, weight bearing Precautions Comments: NWB RLE in bishnu brace locked in ext, TDWB LLE w/ enhanced hip precuations,NBW RUE ok to platform WB Assessment: Pt seen for skilled OT interventions. Pt motivated and eager to participate in therapy today w/ pain better controled. Pt performed backwards scoot transfer w/ ModA x 2 from bed>w/c. Pt participated in sponge bath and UB dressing long sitting in bed. Pt educated on LB dressing technique w/ candy mixer supine. Pt is extremely motivated and will greatly benefit from ongoing therapeutic interventions to achieve pt's and therapy goals. Please refer to associated flowsheet data listed below for treatment session details. Staff Recommendations: ?? Mechanical lift ?? Encourage OOB activity and participation in all self care tasks Anticipated Discharge Disposition: inpatient rehabilitation facility, residential facility Pager: [phone] Peter Bynum OT 12/22/2017 Occupational Therapy Rehabilitation Department 12/22/17 9745 Rehab Evaluation Document Type therapy note (daily note) Total Evaluation Minutes, Occupational Therapy 50 (sc x 3) Patient Effort good Symptoms Noted During/After Treatment increased pain;fatigue;shortness of breath General Information Patient Profile Review yes Patient/Family/Caregiver Comments/Observations I am ready to work today, I told you guys I would be. General Observations of Patient Pt supine in bed, eager to work w/ therapy Pertinent History of Current Problem Daphne Pickard is a 52 y.o. female s/p ORIF of the right distal radius and right tibial plateau on 12/14 and now 2 Days Post-Op from ORIF left posterior acetabulum fx Hearing Precautions/Limitations WFL Precautions/Restrictions fall;hip;weight bearing Precautions Comments NWB RLE in bishnu brace locked in ext, TDWB LLE w/ enhanced hip precuations, NBW RUE ok to platform WB Treatment Number OT 3 Living Environment Patient population Adult Living Environment Living Environment Comment Lives with fidele in their own home. Full flight of stairs to main living area. Then three stairs into bathroom. Functional Level Prior Prior Functional Level Comment Pt independent mobility, ADLs, IADLs Self-Care Dominant Hand right Cognitive Assessment/Intervention Additional Documentation Cognitive Assessment Interventions (Group) Cognitive Assessment Interventions Behavior/Mood Observations (Cognitive) alert;cooperative Orientation Status (Cognitive) oriented x 4 Attention (Cognitive) WNL/WFL Follows Commands/Answers Questions (Cognitive) 100% of the time Pain Scale/Rating Pain Assessment Scale Numbers (Numeric Rating Pain Scale) Pain Level 6 Pain Assessment Numbers/Faces/Word Pain Body Location - Side Bilateral Pain Body Location leg ROM (Range of Motion) Additional Documentation (LUE WFL for ADL, R shoulder/elbow WFL, wiggling R fingers) Bed Mobility Assessment/Treatment Assistive Device (Bed Mobility) 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 ancient art curator;other (see comments) Nsfiyj-di-Xub Cornwall (Bed Mobility) moderate assist (50% patient effort);2 person assist required Obi-ug-Gnrwyo Cornwall (Bed Mobility) moderate assist (50% patient effort);2 person assist required Impairments (Bed Mobility) pain;ROM (range of motion) decreased;balance impaired;strength decreased Comment (Bed Mobility) Pt performed be dmobility w/ increased time, pt long sitting EOB w/ chair support LE Transfer Assessment/Treatment Bed-Chair Cornwall (Transfers) moderate assist (50% patient effort);2 person assist required Impairments (Transfers) pain;ROM (range of motion) decreased;strength decreased Comment (Transfers) Pt performed backward scoot from bed>w/c,assist w/ kim pad and support forLE. Increased time and increased pain noted Bathing Assessment/Training Position (Bathing) sitting Cornwall Level (Bathing) moderate assist (50% patient effort) Comment (Bathing) Pt required washed trunk, pt required assist to sponge bath her back and LE Upper Body Dressing Assessment/Training Position (UB Dressing) sitting Cornwall Level (UB Dressing) set up required;supervision required Impairments (UB Dressing) pain;ROM (range of motion) decreased;strength decreased Comment (UB Dressing) Pt donned shirt long sitting independently Balance Skills Training Training Strategies (Balance) seated EOB, sponge bath, donning shirt Orthotics/Prosthetics Additional Documentation Orthosis Location/Type (Group) Orthosis Location/Type Upper Extremity (Orthosis) Right: Lower Extremity (Orthosis) Right: (bishnu brace locked in ext) Orthosis Management/Training Indications (Orthosis) immobilize, protect/position healing structures Wear Schedule (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 Bathing Goal, Outcome goal ongoing Grooming Goal Grooming Goal, Date Established 12/15/17 Grooming Goal, Time to Achieve 2 wks Grooming Goal, Activity Type Pt will sit EOB and perform 2-3 grooming tasks w/ set up only. Grooming Goal, Outcome goal ongoing Toileting Goal Toileting Goal, Date Established 12/15/17 Toileting Goal, Time to Achieve 2 wks Toileting Goal, Activity Type Pt will transfer to bedside commode w/ Yany and AD as needed. Toileting Goal, Outcome goal ongoing LB Dressing Goal LB Dressing Goal, Date Established 12/15/17 LB Dressing Goal, Time to Achieve 2 wks LB Dressing Goal, Activity Type Pt will don pants independently w/ AE as needed. LB Dressing Goal, Outcome goal ongoing UB Dressing Goal UB Dressing Goal, Date Established 12/15/17 UB Dressing Goal, Time to Achieve 2 wks UB Dressing Goal, Activity Type Pt will don shirt independently. UB Dressing Goal, Outcome goal ongoing Occupational Therapy Goal OT Goal, Date Established 12/15/17 OT Goal, Time to Achieve 2 wks OT Goal, Activity Type OT Goal, Outcome goal ongoing Clinical Impression Criteria for Skilled Therapeutic Interventions Met treatment indicated Rehab Potential good, to achieve stated therapy goals Therapy Frequency 2-4 times/wk Anticipated Equipment Needs at Discharge (TBD, W/C) Anticipated Discharge Disposition inpatient rehabilitation facility;residential facility * Plan of Care - Roberto Almodovar PT - 12/22/2017 2:44 PM EDT Physical Therapy Treatment Treatment Number PT: 3 Pertinent History of Current Problem: ORIF right tibial plateau fx and ORIF right distal radius fx on 12/14, s/p ORIF left acetabulum 12/20 Precautions/Restrictions: weight bearing, fall, brace worn when out of bed Precautions Comments: bishnu brace on RLE; locked in ext at all times; platform WB RUE; TDWB LLE (full ROM) Weight-Bearing Status Extremity Weight Bearing Status: right upper extremity, left lower extremity, right lower extremity Right Upper Extremity (Weight Bearing Status): (platform WB) Left Lower Extremity (Weight Bearing Status): touch down weight-bearing Right Lower Extremity (Weight Bearing Status): nonweight bearing Assessment: Pt seen for patient education, wheelchair training and progression of functional mobilty. Pt demonstrated motivation to improve functional mobility during today's session. Able to performseated ADL's in long sitting with minimal assistance. Pt able to perform backwards transfer into wheelchair with increased time and cuing. Pt remains an appropriate candidate for skilled rehab and anticipate her progressing quickly. Please see the flow sheet below for patient details and mobility. Pt would benefit from ongoing physical therapy interventions. Staff Mobility Recommendations Mechanical lift to commode/chair Anticipated Discharge Disposition: (S) residential facility Roberto Almodovar PT Pager: [phone] Inpatient Physical Therapy 12/22/17 0350 Rehab Evaluation Document Type therapy note (daily note) Total Evaluation Minutes, Physical Therapy 46 (TEF x3) Patient Effort good Symptoms Noted During/After Treatment increased pain;fatigue General Information Patient Profile Review yes Patient/Family/Caregiver Comments/Observations I'd like to get washed up and dressed General Observations of Patient finished session in w/c with BLE's elevated Pertinent History of Current Problem ORIF right tibial plateau fx and ORIF right distal radius fx on 12/14, s/p ORIF left acetabulum 12/20 Hearing Precautions/Limitations WFL Precautions/Restrictions weight bearing;fall;brace worn when out of bed Precautions Comments bishnu brace on RLE; locked in ext at all times; platform WB RUE; TDWB LLE (full ROM) Treatment Number PT 3 Right Upper Extremity (Weight Bearing Status) (platform WB) Left Lower Extremity (Weight Bearing Status) touch down weight-bearing Right Lower Extremity (Weight Bearing Status) nonweight bearing Pain Scale/Rating Pain Assessment Scale Numbers (Numeric Rating Pain Scale) Pain Level 6 Mobility Assessment/Training Additional Documentation Bed Mobility Assessment/Treatment (Group);Transfer Assessment/Treatment (Group);Weight-Bearing Status (Group) Weight-Bearing Status Extremity Weight Bearing Status right upper extremity;left lower extremity;right lower extremity Bed Mobility Assessment/Treatment Assistive Device (Bed Mobility) leg ancient art curator;draw sheet (HOB elevated ) Jmjfrh-ai-Mrz Cornwall (Bed Mobility) moderate assist (50% patient effort);2 person assist required;verbal cues required Impairments (Bed Mobility) ROM (range of motion) decreased;strength decreased;flexibility decreased;pain Comment (Bed Mobility) supine>long sitting; increased time; extra assist needed; long sitting atEOB; feet supported on a chair with pillows Scoot/Bridge Cornwall (Bed Mobility) moderate assist (50% patient effort);2 person assist required;verbal cues required Safety Issues (Bed Mobility) decreased use of arms for pushing/pulling;decreased use of legs for bridging/pushing Transfer Assessment/Treatment Bed-Chair Cornwall (Transfers) moderate assist (50% patient effort);2 person assist required Vdi-Mhdjb-Ilf Assistive Device (Transfers) (backwards/forwards) Maintain Weight Bearing Status (Transfers) cues to maintain weight bearing status Safety Issues (Transfers) sequencing ability decreased;weight-shifting ability decreased Impairments (Transfers) pain;ROM (range of motion) decreased;strength decreased;flexibility decreased Comment (Transfers) backwards/forwards transfer from bed>w/c; 2 assist needed; increased time; increased pain noted Motor Skills/Interventions Additional Documentation Balance Skills Training (Group) Balance Skills Training Training Strategies (Balance) seated EOB (long sitting); able to wash anterior half of body; pull shirt on; no loss of balance; leaning towards either side to balance with UE support Orthotics/Prosthetics Additional Documentation Orthosis Location/Type (Group) Orthosis Location/Type Location/Type (Orthosis) upper extremity Upper Extremity (Orthosis) Right: (hard cast) Lower Extremity (Orthosis) Right:;knee orthosis Plan of Care Review Plan Of Care Reviewed With patient Bed Mobility Goal Bed Mobility Goal, Date Established 12/15/17 Bed Mobility Goal, Time to Achieve 30 days Bed Mobility Goal, Activity Type roll left/roll right;supine to sit/sit to supine Bed Mobility Goal, Cornwall Level minimum assist (75% patient effort) Bed Mobility Goal, Assistive Device leg ancient art curator Bed Mobility Goal, Date Goal Reviewed 12/22/17 Bed Mobility Goal, Outcome Achieved goal ongoing Transfer Training Goal Transfer Training Goal, Date Established 12/15/17 Transfer Training Goal, Time to Achieve 30 days Transfer Training Goal, Activity Type wqk-qr-[id number]/onowf-wi-[id number] Transfer Train Goal, Cornwall Level moderate assist (50% patient effort) Transfer Training Goal, Assist Device other (see comments) (slideboard) Transfer Train Goal, Date Goal Reviewed 12/22/17 Transfer Training Goal, Outcome goal ongoing Physical Therapy Goal PT Goal, Date Established 12/15/17 PT Goal, Time to Achieve 30 days PT Goal, Activity Type Pt will manually propel w/c household distances w/ Yany for steering PT Goal, Additional Goal Pt will perform supine bed exercises with tolerable pain levels PT Goal, Date Goal Reviewed 12/22/17 PT Goal, Outcome goal ongoing PT Goal, Reason Goal Not Met other (see comments) Clinical Impression Therapy Frequency 2-4 times/wk Anticipated Equipment Needs at Discharge wheelchair Anticipated Discharge Disposition residential facility * Plan of Care - Cary Urrutia RN - 12/22/2017 6:59 AM EDT Problem: Skin Integrity Impairment, Risk/Actual (Adult) Goal: Identify Related Risk Factors and Signs and Symptoms Related risk factors and signs and symptoms are identified upon initiation of Human Response Clinical Practice Guideline (CPG) Outcome: Ongoing (Interventions Implemented as Appropriate) 12/21/179 12/21/171722 Skin Integrity Impairment, Risk/Actual Skin Integrity Impairment, Risk/Actual: Related Risk Factors -- surgery/procedure;traumatic injury Signs and Symptoms (Skin Integrity Impairment) edema -- Goal: Skin Integrity/Wound Healing Patient will demonstrate the desired outcomes by discharge/transition of care. Outcome: Ongoing (Interventions Implemented as Appropriate) 12/21/171722 Skin Integrity Impairment, Risk/Actual (Adult) Skin Integrity/Wound Healing making progress toward outcome Problem: Patient Care Overview Goal: Plan of Care Review Outcome: Ongoing (Interventions Implemented as Appropriate) 12/21/17172212/21/172099 Coping/Psychosocial Plan Of Care Reviewed With -- patient Plan of Care Review Progress progress towards functional goals is fair -- Goal: Fall Prevention-Safe Patient Handling Outcome: Ongoing (Interventions Implemented as Appropriate) 12/21/172099 Activity Activity Type activity adjusted per tolerance;bedrest;dorsiflexion, plantar flexion encouraged Activity Assistance Provided assistance, 2 people Assistive Device Utilized mechanical lift Albarran Fall Risk History of Falling 0 Secondary Diagnosis 15 Ambulatory Aids 0 Intravenous Therapy/Heparin/Saline Lock 20 Gait/Transferring 10 Mental Status 0 Score 45 OTHER Albarran Fall Risk High Restraint Interventions Safety Promotion/Fall Prevention activity supervised;fall prevention program maintained;nonskid shoes/slippers when out of bed;safety round/check completed Positioning Body Position independent Daily Care Interventions Self-Care Promotion independence encouraged;BADL personal objects within reach Goal: Infection Control Outcome: Ongoing (Interventions Implemented as Appropriate) 12/21/172099 Safety Interventions Isolation Precautions standard precautions maintained Infection Prevention rest/sleep promoted;environmental surveillance performed Coping Strategies Supportive Measures active listening utilized;decision-making supported;relaxation techniques promoted;verbalization of feelings encouraged Problem: Fracture Orthopaedic (Adult) Goal: Signs and Symptoms of Listed Potential Problems Will be Absent, Minimized or Managed (Fracture Orthopaedic) Signs and symptoms of listed potential problems will be absent, minimized or managed by discharge/transition of care (reference Fracture Orthopaedic (Adult) CPG). Outcome: Ongoing (Interventions Implemented as Appropriate) 12/21/172099 Fracture Orthopaedic Problems Assessed (Orthopaedic Fracture) all Problems Present (Orthopaedic Fracture) functional deficit/ self-care deficit;pain;situational response;urinary retention OUTCOME EVALUATION NOTE: OUTCOME SUMMARY: VSS with pt on RA. Pt has reported various pain levels so far this shift, interventions provided. Pt denies CP, SOB, N/V. Pt denies any numbness or tingling to extremities. Pt was DTV at start of shift and was unable to go, see bladder scan trends in flow-sheets- pt's BS was above 400 however pt requested more time to attempt to void w/out catheterization interventions; later needed interventionsafter pt unable to void and bladder scan showed retention over 700mL. MD notified and ramirez placed.Encouraging IS exercises, PO intake, and ROM exercises while in bed. PLAN MOVING FORWARD: Monitor VS, pain, NV status; d/c planning; mobilize per MD orders INDIVIDUALIZED FALL PREVENTION INTERVENTIONS: Patient-specific fall risk factors per assessment: [current deficits]: Recent trauma/injury, impaired mobility Assistance [level of assistance required for transfers and ambulation]: Mechanical lift Supervision [direct monitoring required during toileting and ADLs]: Hands on Surveillance [continuous indirect monitoring]: Masimo, hourly rounding Patient-specific fall prevention interventions for sensory deficits provided, if applicable: [X] N/A CPG GOAL OUTCOME EVALUATION: Stable * Plan of Care - Christin Edwards RN - 12/21/2017 5:45 PM EDT Problem: Skin Integrity Impairment, Risk/Actual (Adult) Goal: Identify Related Risk Factors and Signs and Symptoms Related risk factors and signs and symptoms are identified upon initiation of Human Response Clinical Practice Guideline (CPG) Outcome: Ongoing (Interventions Implemented as Appropriate) 12/21/17 1723 Skin Integrity Impairment, Risk/Actual Skin Integrity Impairment, Risk/Actual: Related Risk Factors surgery/procedure;traumatic injury Goal: Skin Integrity/Wound Healing Patient will demonstrate the desired outcomes by discharge/transition of care. Outcome: Ongoing (Interventions Implemented as Appropriate) 12/21/17 1723 Skin Integrity Impairment, Risk/Actual (Adult) Skin Integrity/Wound Healing making progress toward outcome Problem: Patient Care Overview Goal: Plan of Care Review Outcome: Ongoing (Interventions Implemented as Appropriate) 12/21/17 1723 Coping/Psychosocial Plan Of Care Reviewed With patient Plan of Care Review Progress progress towards functional goals is fair OUTCOME EVALUATION NOTE: OUTCOME SUMMARY: Patient tolerating PO diet. Patient rating elevated pain today compared to prior to OR. Patients pain treated with scheduled and PRN medication, see MAR. Patient straight caht today, see doc flow. Patient using call ann appropriately. Will continue to monitor. PLAN MOVING FORWARD: -Pain Control -Mobilize -Discharge planning INDIVIDUALIZED FALL PREVENTION: Fall Score: 45 - high Baseline mobility: up at rony Assistance: -Mechanical lift Supervision: -Hands-on for all transfers and ambulation Surveillance: -Bed Alarm/Chair Alarm -Masimo -Purposeful Rounding -Team Care -Bedside Nurse Knowledge Exchange CPG OUTCOME EVALUATION: Goal: Fall Prevention-Safe Patient Handling Outcome: Ongoing (Interventions Implemented as Appropriate) 12/21/1782412/21/17 172 Activity Activity Type activity encouraged -- Activity Assistance Provided -- assistance, 2 people Assistive Device Utilized -- mechanical lift Albarran Fall Risk History of Falling 0 -- Secondary Diagnosis 15 -- Ambulatory Aids 0 -- Intravenous Therapy/Heparin/Saline Lock 20 -- Gait/Transferring 10 -- Mental Status 0 -- Score 45 -- OTHER Albarran Fall Risk High -- Restraint Interventions Safety Promotion/Fall Prevention activity supervised;fall prevention program maintained;nonskid shoes/slippers when out of bed;safety round/check completed -- Positioning Body Position independent -- Daily Care Interventions Self-Care Promotion independence encouraged;BADL personal objects within reach -- Goal: Infection Control Outcome: Ongoing (Interventions Implemented as Appropriate) 12/21/17 0825 Safety Interventions Isolation Precautions standard precautions maintained Infection Prevention environmental surveillance performed;single patient room provided;rest/sleep promoted Coping Strategies Supportive Measures active listening utilized;relaxation techniques promoted;self-care encouraged;verbalization of feelings encouraged Goal: Interdisciplinary Rounds/Family Conf Outcome: Ongoing (Interventions Implemented as Appropriate) 12/21/17 1723 Interdisciplinary Rounds/Family Conf Participants nursing;patient Problem: Fracture Orthopaedic (Adult) Goal: Signs and Symptoms of Listed Potential Problems Will be Absent, Minimized or Managed (Fracture Orthopaedic) Signs and symptoms of listed potential problems will be absent, minimized or managed by discharge/transition of care (reference Fracture Orthopaedic (Adult) CPG). Outcome: Ongoing (Interventions Implemented as Appropriate) 12/21/17 0825 Fracture Orthopaedic Problems Assessed (Orthopaedic Fracture) all Problems Present (Orthopaedic Fracture) pain;functional deficit/ self-care deficit;situational response * Plan of Care - Citlali Hopper RN - 12/21/2017 8:11 AM EDT Problem: Skin Integrity Impairment, Risk/Actual (Adult) Goal: Identify Related Risk Factors and Signs and Symptoms Related risk factors and signs and symptoms are identified upon initiation of Human Response Clinical Practice Guideline (CPG) Outcome: Ongoing (Interventions Implemented as Appropriate) 12/21/17 075 Skin Integrity Impairment, Risk/Actual Skin Integrity Impairment, Risk/Actual: Related Risk Factors surgery/procedure;traumatic injury;immobility Signs and Symptoms (Skin Integrity Impairment) edema Goal: Skin Integrity/Wound Healing Patient will demonstrate the desired outcomes by discharge/transition of care. Outcome: Ongoing (Interventions Implemented as Appropriate) 12/21/17758 Skin Integrity Impairment, Risk/Actual (Adult) Skin Integrity/Wound Healing making progress toward outcome Problem: Patient Care Overview Goal: Plan of Care Review Outcome: Ongoing (Interventions Implemented as Appropriate) 12/21/17 075 Coping/Psychosocial Plan Of Care Reviewed With patient Plan of Care Review Progress progress towards functional goals is fair OUTCOME EVALUATION NOTE: OUTCOME SUMMARY: Pt c/o 10/10 pain in left hip unrelieved by Oxycodone 10 mg. Flexeril given for spasms in left hip.Ice bag applied. HO notified. Dilaudid 0.4 mg given IV X 1 and Oxycodone 15 mg. Pt stated pain was Better. Left hip dressing dry and intact, +CSMT, able to wiggle all toes. Pt was DTV but refused to use a bedpan due to pain in left hip. Straight cathed for 450cc, clear, yellow urine.RUE arm cast intact.+CSMT. RLE [place] brace intact, mepilex dressings dry and intact. BP- 88/52 . Will continue to monitor. PLAN MOVING FORWARD: -Pain Control -Mobilize INDIVIDUALIZED FALL PREVENTION: Assistance: Mechanical lift Supervision: - Hands-on for all transfers and ambulation - Eyes-on for all transfers and ambulation - Arms-Reach for all transfers and ambulation Surveillance: - Bed Alarm/Chair Alarm - Purposeful Rounding -Team Care - Bedside Nurse Knowledge Exchange -masimo monitoring CPG OUTCOME EVALUATION: Goal: Individualization & Mutuality Outcome: Ongoing (Interventions Implemented as Appropriate) 12/21/17 075 Individualization Patient Specific Preferences adequate pain control, increase activity level and mobilize Patient Specific Goals pain control, reposition,PT Patient Specific Interventions ATC dosing of pain med Goal: Fall Prevention-Safe Patient Handling Outcome: Ongoing (Interventions Implemented as Appropriate) 12/20/17 1350 12/20/171999 Albarran Fall Risk History of Falling -- 0 Secondary Diagnosis -- 15 Ambulatory Aids -- 0 Intravenous Therapy/Heparin/Saline Lock -- 20 Gait/Transferring -- 10 Mental Status -- 0 Score -- 45 OTHER Albarran Fall Risk -- High Restraint Interventions Safety Promotion/Fall Prevention -- activity supervised;fall prevention program maintained;nonskid shoes/slippers when out of bed;safety round/check completed Positioning Body Position -- supine, head elevated Daily Care Interventions Self-Care Promotion independence encouraged -- Activity Activity Type -- activity adjusted per tolerance Activity Assistance Provided -- assistance, 2 people Assistive Device Utilized -- mechanical lift Goal: Infection Control Outcome: Ongoing (Interventions Implemented as Appropriate) 12/21/17 075 Safety Interventions Isolation Precautions standard precautions maintained Infection Prevention rest/sleep promoted Coping Strategies Supportive Measures active listening utilized;positive reinforcement provided Goal: Discharge Needs Assessment Outcome: Ongoing (Interventions Implemented as Appropriate) 12/21/17758 Discharge Needs Assessment Concerns To Be Addressed no discharge needs identified Readmission Within The Last 30 Days no previous admission in last 30 days Discharge Disposition still a patient Living Environment Transportation Available car;family or friend will provide Problem: Fracture Orthopaedic (Adult) Goal: Signs and Symptoms of Listed Potential Problems Will be Absent, Minimized or Managed (Fracture Orthopaedic) Signs and symptoms of listed potential problems will be absent, minimized or managed by discharge/transition of care (reference Fracture Orthopaedic (Adult) CPG). Outcome: Ongoing (Interventions Implemented as Appropriate) 12/21/17758 Fracture Orthopaedic Problems Assessed (Orthopaedic Fracture) all Problems Present (Orthopaedic Fracture) pain * Op Note - Joyce Parra - 12/20/2017 11:01 AM EDT [facility] [place] Operative Note Patient Name: Daphne Pickard : [id number] MR#: [id number] Case Date: 12/20/2017 ?? Surgeon: Surgeon(s) and Role: * Tete Talamantes MD - Primary * Kimani Dobson MD * Joyce Parra MD ?? Preoperative diagnosis: Left posterior wall acetabulum fx ?? Postoperative diagnosis: Left posterior wall acetabulum fx ?? Procedure(s) (LRB): @OPEN TREATMENT, ACETABULAR FX (WRVU 25.41) (Left) MODIFIER LOCKING SMALL FRAGMENT SYNTHES (Left) MODIFIER PELVIC RECONSTRUCTION PLATE SYNTHES (Left) ? Anesthesia: General ?? Findings: Left posterior wall acetabulum fracture ?? Complications: None ?? Estimated Blood Loss: 200cc ?? Specimens removed during surgery: None ? Fluids: Intraprocedure Crystalloid Total None ?? PRBCs: none (See Anesthesia Record/Report for Other Blood Products) ? Urine Output: 200 mL ?? Drains: None ?? Disposition: awakened from anesthesia, extubated and taken to the recovery room in a stable condition, having suffered no apparent untoward event. ?? Condition: doing well without problems (Please see the Surgical Encounter Summary for any Implant and Specimen details pertinent to this patient.) HPI/Surgical Indications: Patient is a very pleasant 52-year-old female who unfortunately suffered multiple orthopedic injuries secondary to a fall from a horse. Her injuries included a right tibial plateau fracture, right distal radius fracture, and a left acetabulum fracture. Her right tibial plateau and distal radius fractures were addressed during a previous surgery. After discussion of risks, benefits, and alternatives to operative fixation of her left acetabulum, the patient decided to proceed with surgery. Pleasesee hospital progress notes and consult note/original H&P for further details of the patient's hospital course. Procedure Description: Patient was brought back to the operative suite where she was appropriately identified. Site of intended procedure was identified by the green catalina which had been applied preoperatively in accordancewith [facility] [place] policy. Anesthesia was induced while the patient was in the hospital bed, and the patientwas then transferred to the operating table where she was placed in the right lateral decubitus position. A deflatable beanbag was utilized to help position the patient. Meticulous care was taken to ensure that all bony prominences were well-padded and that the patient was secured to the operating table. 2 g of Ancef was administered prior to the initiation of surgery. The operative extremity wasprepped using Hibiclens, alcohol, chlorhexidine. The operative extremity was draped in the usual sterile fashion. A surgical timeout was performed in accordance with [facility] [place] policy. Site of intended incision was drawn using a sterile marker. A incision extending approximately 12 inches centered over the greater trochanter and extending posterior superiorly toward the PSIS and inferiorly along the shaft of the femur was drawn for a standard lian Langenbach approach. Incision was made using a #10 blade scalpel. Electrocautery was used for subcutaneous dissection. Meticulous hemostasis was obtained during surgical dissection with the use of electrocautery. The tensor fascia aliyah muscle fibers were identified in the inferior aspect of the wound and were split. In the superior aspect of the wound the gluteus dayami fibers were identified and were split revealing the underl emre gluteus medius. Dissection was continued through the fascial layer revealing the short external rotators. The sciatic nerve was identified. Meticulous care was taken to protect the nerve throughout the case. The piriformis and obturator were identified and tagged using #2 Ethibond suture. These were transected from the greater trochanter close to the insertion on the greater trochanter. Thisallowed identification of the posterior wall of the acetabulum. The posterior wall of the acetabulum was cleared of soft tissue using a Jose elevator to allow evaluation of the fracture site. The fracture was reduced using a ball spike pusher. K wires were utilized to obtain provisional fixation ofthe reduced fracture fragment. At this time 2 2.7 screws were placed using lag technique in order to enhance stability and provide compression across the fracture site. Positioning of the screws was confirmed on C-arm imaging. An 8 hole 3.5 recon plate was then placed over the fracture site determined to be the correct size. This plate was then contoured to appropriate specifications for the fracture site (the plate was mildly under contoured in order to enhance the buttressing effect). The plate was placed. Screws were applied across the plate in sequential fashion. A 3.5 screw was placed through the plate and lag technique in order to enhance compression of the fracture site. Positioning and length of the screws was evaluated on C-arm and confirmed to be acceptable. Reduction and plate placement were also confirmed to be acceptable. This time the wound site was thoroughly irrigated. The piriformis and obturator muscles were repaired to the greater trochanter using a technique of placing drill holes through the greater trochanter and passing the Ethibond sutures with a wire throughthose holes, and then tying the muscles down to the greater trochanter. The repair was confirmed vikas adequate. Vancomycin powder was applied and the base of the wound (2 g) he. The fascia was then closed using 0 Vicryl suture in an interrupted fashion. We then subsequently placed a layer of deep 0 Vicryl suture in the subcutaneous fat. This was followed by layer of subcutaneous 2-0 Vicryl suture. The skin was then closed using zuleyka. The wound was clean and dry. A Silver Mepilex dressing was applied. Needle and sponge counts were found to be correct at the end of the case. This concluded the operative portion of the procedure. The patient was taken to the postoperative recovery area having suffered no apparent complication of the procedure. Implant Name Type Inv. Item Serial No. Medical Clinic Manager Lot No. LRB No. Used Action WIRE,K,THRDD GWRE,[id number]) - [id number] IMPLANTS WIRE,K,THRDD GWRE,[id number] ([id number]) [facility] Left 1 Implanted and Explanted SCREW,CRTX,STAP,2.7X32MM ([id number]) - [id number] IMPLANTS SCREW,CRTX,STAP,2.7X32MM ([id number]) [facility] Left 1 Implanted SCREW,CRTX,STAP,2.7X28MM ([id number]) - [id number] IMPLANTS SCREW,CRTX,STAP,2.7X28MM ([id number]) [facility] Left 1 Implanted and Explanted SCREW,CRTX,STAP,2.7X26MM ([id number]) - [id number] IMPLANTS SCREW,CRTX,STAP,2.7X26MM ([id number]) [facility] Left 1 Implanted PLATE,RECON.8H,3.5X94MM ([id number]) - [id number] IMPLANTS PLATE,RECON.8H,3.5X94MM ([id number]) [facility] Left 1 Implanted SCREW,CRTX,STAP,3.5X34MM ([id number]) - [id number] IMPLANTS SCREW,CRTX,STAP,3.5X34MM ([id number]) [facility] Left 3 Implanted PIN,KWIRE,TROC 1 ED,NS,[id number] ([id number]) - [id number] IMPLANTS PIN,KWIRE,TROC 1 ED,NS,[id number] ([id number]) [facility] Left 2 Implanted and Explanted SCREW,CRTX,STAP,3.5X75MM ([id number]) - [id number] IMPLANTS SCREW,CRTX,STAP,3.5X75MM ([id number]) [facility] Left 1 Implanted and Explanted SCREW,CRTX,STAP,3.5X38MM ([id number]) - [id number] IMPLANTS SCREW,CRTX,STAP,3.5X38MM ([id number]) [facility] Left 1 Implanted and Explanted SCREW,CRTX,STAP,3.5X36MM ([id number]) - [id number] IMPLANTS SCREW,CRTX,STAP,3.5X36MM ([id number]) [facility] Left 1 Implanted SCREW,CRTX,STAP,3.5X40MM ([id number]) - [id number] IMPLANTS SCREW,CRTX,STAP,3.5X40MM ([id number]) [facility] Left 1 Implanted SCREW,CRTX,STAP,2.7X28MM ([id number]) - [id number] IMPLANTS SCREW,CRTX,STAP,2.7X28MM ([id number]) [facility] Left 1 Implanted and Explanted SCREW,CRTX,STAP,3.5X28MM ([id number]) - [id number] IMPLANTS SCREW,CRTX,STAP,3.5X28MM ([id number]) [facility] Left 1 Implanted Infection Bundle used? N/A Associated attestation - Tete Talamantes MD - 12/21/2017 5:57 AM EDT Attestation: Case Date: 12/20/2017 I was present and I participated during the entire procedure (does not need to include opening and closing). Tete Talamantes MD 12/21/2017 * Brief Op Note - Joyce Parra - 12/20/2017 10:18 AM EDT Brief Operative Note Patient Name: Daphne Pickard : [id number] MR#: [id number] Case Date: 12/20/2017 Surgeon: Surgeon(s) and Role: * Tete Talamantes MD - Primary * Kimani Dobson MD * Joyce Parra MD Preoperative diagnosis: Left posterior wall acetabulum fx Postoperative diagnosis: Left posterior wall acetabulum fx Procedure(s) (LRB): @OPEN TREATMENT, ACETABULAR FX (WRVU 25.41) (Left) MODIFIER LOCKING SMALL FRAGMENT SYNTHES (Left) MODIFIER PELVIC RECONSTRUCTION PLATE SYNTHES (Left) Anesthesia: General Findings: Left posterior wall acetabulum fracture Complications: None Estimated Blood Loss: 200cc Specimens removed during surgery: None Fluids: Intraprocedure Crystalloid Total None PRBCs: none (See Anesthesia Record/Report for Other Blood Products) Urine Output: 200 mL Drains: None Disposition: awakened from anesthesia, extubated and taken to the recovery room in a stable condition, having suffered no apparent untoward event. Condition: doing well without problems (Please see the Surgical Encounter Summary for any Implant and Specimen details pertinent to this patient.) Infection Bundle used? N/A * Plan of Care - Katherin Roper RN - 12/20/2017 4:52 AM EDT Problem: Skin Integrity Impairment, Risk/Actual (Adult) Goal: Identify Related Risk Factors and Signs and Symptoms Related risk factors and signs and symptoms are identified upon initiation of Human Response Clinical Practice Guideline (CPG) Outcome: Ongoing (Interventions Implemented as Appropriate) 12/16/17 1640 Skin Integrity Impairment, Risk/Actual Skin Integrity Impairment, Risk/Actual: Related Risk Factors immobility;surgery/procedure Signs and Symptoms (Skin Integrity Impairment) edema Goal: Skin Integrity/Wound Healing Patient will demonstrate the desired outcomes by discharge/transition of care. Outcome: Ongoing (Interventions Implemented as Appropriate) 12/17/17 1631 Skin Integrity Impairment, Risk/Actual (Adult) Skin Integrity/Wound Healing making progress toward outcome Problem: Patient Care Overview Goal: Plan of Care Review Outcome: Ongoing (Interventions Implemented as Appropriate) 12/16/17 1641 12/19/17 2154 Coping/Psychosocial Plan Of Care Reviewed With -- patient Plan of Care Review Progress progress toward functional goals as expected -- OUTCOME EVALUATION NOTE: OUTCOME SUMMARY: Patient progressing towards d/c goals appropriately at this time. Patient's pain adequately controlled with scheduled medications. RUE cast intact, no n/t. RLE dressing c/d/i. [place] locked in extension. Elevated throughout shift. +dp &??pt pulses. Ramirez catheter patent, draining adequate amounts CYU. Pt had large, multiple BMs this shift, after BM medications and enema administered. Pt lifted to commode. Pt NPO since 0000 for OR this am. Will continue to monitor and help patient reach d/cgoals.? PLAN MOVING FORWARD: ? Pain control OR this am ? INDIVIDUALIZED FALL PREVENTION: Patient is currently a low risk to Fall. Patient educated on bed/chair alarm, demonstrates proper use of call ann and verbalizes understanding of fall preventions implemented. ? Patient-specific fall risk factors per assessment: [current deficits]:?NWB BLE, RUE, Pain, Medications, Hospital Environment. ? Assistance [level of assistance required for transfers and ambulation]:?x2 assist, mechanical lift ? Supervision [direct monitoring required during toileting and ADLs]:?Moderate assist with ADL's ? Surveillance [continuous indirect monitoring]:?Masimo, Purposeful Rounding, Nurse Knowledge Exchange ? Patient-specific fall prevention interventions for sensory deficits provided, if applicable:?n/a CPG GOAL OUTCOME EVALUATION: Goal: Individualization & Mutuality Outcome: Ongoing (Interventions Implemented as Appropriate) 12/14/17 0411 Mutuality/Individual Preferences What Anxieties, Fears or Concerns Do You Have About Your Health or Care? none What Questions Do You Have About Your Health or Care? when can I have pain meds? What Information Would Help Us Give You More Personalized Care? none Individualization Patient Specific Goals pain management Goal: Fall Prevention-Safe Patient Handling Outcome: Ongoing (Interventions Implemented as Appropriate) 12/19/17 0900 12/19/17 215 Albarran Fall Risk History of Falling -- 0 Secondary Diagnosis -- 0 Ambulatory Aids -- 0 Intravenous Therapy/Heparin/Saline Lock -- 20 Gait/Transferring -- 0 Mental Status -- 0 Score -- 20 OTHER Albarran Fall Risk -- Low Restraint Interventions Safety Promotion/Fall Prevention -- activity supervised;safety round/check completed Positioning Body Position -- lower extremity elevated, right Daily Care Interventions Self-Care Promotion independence encouraged -- Activity Activity Type -- activity adjusted per tolerance;bedrest Activity Assistance Provided -- assistance, 2 people Assistive Device Utilized -- mechanical lift Goal: Infection Control Outcome: Ongoing (Interventions Implemented as Appropriate) 12/19/172153 Safety Interventions Isolation Precautions standard precautions maintained Infection Prevention rest/sleep promoted;single patient room provided Coping Strategies Supportive Measures active listening utilized;verbalization of feelings encouraged Problem: Fracture Orthopaedic (Adult) Goal: Signs and Symptoms of Listed Potential Problems Will be Absent, Minimized or Managed (Fracture Orthopaedic) Signs and symptoms of listed potential problems will be absent, minimized or managed by discharge/transition of care (reference Fracture Orthopaedic (Adult) CPG). Outcome: Ongoing (Interventions Implemented as Appropriate) 12/18/17 0758 Fracture Orthopaedic Problems Assessed (Orthopaedic Fracture) all Problems Present (Orthopaedic Fracture) functional deficit/ self-care deficit * Plan of Care - Kristyn Quiroz RN - 12/19/2017 3:26 PM EDT Problem: Skin Integrity Impairment, Risk/Actual (Adult) Goal: Identify Related Risk Factors and Signs and Symptoms Related risk factors and signs and symptoms are identified upon initiation of Human Response Clinical Practice Guideline (CPG) Outcome: Ongoing (Interventions Implemented as Appropriate) 12/16/17 1640 Skin Integrity Impairment, Risk/Actual Skin Integrity Impairment, Risk/Actual: Related Risk Factors immobility;surgery/procedure Signs and Symptoms (Skin Integrity Impairment) edema OUTCOME EVALUATION NOTE: OUTCOME SUMMARY: Pt has been educated on the importance of BM. Continues to decline supp at this time. Pt taking PO medications as ordered. Patient progressing towards d/c goals appropriately at this time. Pt more fatigued today on shift, per report pt received PRN flexeril overnight. See MAR for medications administered. WIll continue to monitor and help patient reach d/c goals. PLAN MOVING FORWARD: Pain Control PT/OT consult INDIVIDUALIZED FALL PREVENTION: Patient is currently a high risk to Fall. Patient specific risk factors include secondary diagnosis, pain, weight bearing status.. Patient educated on bed/chair alarm, demonstrates proper use of callbell and verbalizes understanding of fall preventions implemented. Assistance: Patient remains on bedrest . Patient requires moderate assistance with ADLS. Supervision: Patient requires no bathroom supervision at this time. Surveillance: Patient monitored with bed/chair alarm, purposeful rounding, bedside Nurse Knowledge Exchange. CPG OUTCOME EVALUATION: Goal: Skin Integrity/Wound Healing Patient will demonstrate the desired outcomes by discharge/transition of care. Outcome: Ongoing (Interventions Implemented as Appropriate) 12/17/17 1631 Skin Integrity Impairment, Risk/Actual (Adult) Skin Integrity/Wound Healing making progress toward outcome Problem: Patient Care Overview Goal: Plan of Care Review Outcome: Ongoing (Interventions Implemented as Appropriate) 12/16/17 1641 12/19/17 0900 Coping/Psychosocial Plan Of Care Reviewed With -- patient Plan of Care Review Progress progress toward functional goals as expected -- Goal: Individualization & Mutuality Outcome: Ongoing (Interventions Implemented as Appropriate) 12/14/17 0411 Mutuality/Individual Preferences What Anxieties, Fears or Concerns Do You Have About Your Health or Care? none What Questions Do You Have About Your Health or Care? when can I have pain meds? What Information Would Help Us Give You More Personalized Care? none Individualization Patient Specific Goals pain management Goal: Fall Prevention-Safe Patient Handling Outcome: Ongoing (Interventions Implemented as Appropriate) 12/19/17 0900 Albarran Fall Risk History of Falling 0 Secondary Diagnosis 0 Ambulatory Aids 0 Intravenous Therapy/Heparin/Saline Lock 20 Gait/Transferring 0 Mental Status 0 Score 20 OTHER Albarran Fall Risk Low Restraint Interventions Safety Promotion/Fall Prevention activity supervised;safety round/check completed Positioning Body Position lower extremity elevated, right Daily Care Interventions Self-Care Promotion independence encouraged Activity Activity Type bedrest Activity Assistance Provided assistance, 2 people Assistive Device Utilized mechanical lift Goal: Infection Control Outcome: Ongoing (Interventions Implemented as Appropriate) 12/19/17 0900 Safety Interventions Isolation Precautions standard precautions maintained Infection Prevention rest/sleep promoted Coping Strategies Supportive Measures active listening utilized Goal: Discharge Needs Assessment Outcome: Ongoing (Interventions Implemented as Appropriate) 12/16/17 1640 12/17/17 1631 12/17/17 1902 Discharge Needs Assessment Concerns To Be Addressed no discharge needs identified;denies needs/concerns at this time -- -- Readmission Within The Last 30 Days no previous admission in last 30 days -- -- Discharge Disposition -- still a patient -- Living Environment Transportation Available -- -- family or friend will provide Goal: Interdisciplinary Rounds/Family Conf Outcome: Ongoing (Interventions Implemented as Appropriate) 12/17/17 1631 Interdisciplinary Rounds/Family Conf Participants nursing;patient;occupational therapy;physical therapy Problem: Fracture Orthopaedic (Adult) Goal: Signs and Symptoms of Listed Potential Problems Will be Absent, Minimized or Managed (Fracture Orthopaedic) Signs and symptoms of listed potential problems will be absent, minimized or managed by discharge/transition of care (reference Fracture Orthopaedic (Adult) CPG). 12/18/17 0758 Fracture Orthopaedic Problems Assessed (Orthopaedic Fracture) all Problems Present (Orthopaedic Fracture) functional deficit/ self-care deficit * Plan of Care - Katherin Roper RN - 12/19/2017 7:00 AM EDT Problem: Skin Integrity Impairment, Risk/Actual (Adult) Goal: Identify Related Risk Factors and Signs and Symptoms Related risk factors and signs and symptoms are identified upon initiation of Human Response Clinical Practice Guideline (CPG) Outcome: Ongoing (Interventions Implemented as Appropriate) 12/16/17 1640 Skin Integrity Impairment, Risk/Actual Skin Integrity Impairment, Risk/Actual: Related Risk Factors immobility;surgery/procedure Signs and Symptoms (Skin Integrity Impairment) edema Goal: Skin Integrity/Wound Healing Patient will demonstrate the desired outcomes by discharge/transition of care. Outcome: Ongoing (Interventions Implemented as Appropriate) 12/17/17 1631 Skin Integrity Impairment, Risk/Actual (Adult) Skin Integrity/Wound Healing making progress toward outcome Problem: Patient Care Overview Goal: Plan of Care Review Outcome: Ongoing (Interventions Implemented as Appropriate) 12/16/17 1641 12/18/17 202 Coping/Psychosocial Plan Of Care Reviewed With -- patient;significant other Plan of Care Review Progress progress toward functional goals as expected -- OUTCOME EVALUATION NOTE: OUTCOME SUMMARY: Patient progressing towards d/c goals appropriately at this time. Patient's pain adequately controlled with scheduled medications. Pt in chair at start of shift, lifted back to bed, tolerated well. RUE cast intact, no n/t. RLE dressing c/d/i. Bishnu locked in extension. Elevated throughout shift. +dp & pt pulses. Ramirez catheter patent, draining adequate amounts CYU. Will continue to monitor and help patient reach d/c goals. ?? PLAN MOVING FORWARD: ?? Pain control OR on Mon ?? INDIVIDUALIZED FALL PREVENTION: Patient is currently a low risk to Fall. Patient educated on bed/chair alarm, demonstrates proper use of call ann and verbalizes understanding of fall preventions implemented. ? Patient-specific fall risk factors per assessment: [current deficits]: NWB BLE, RUE, Pain, Medications, Hospital Environment. ?? Assistance [level of assistance required for transfers and ambulation]: x2 assist, mechanical lift ?? Supervision [direct monitoring required during toileting and ADLs]: Moderate assist with ADL's ?? Surveillance [continuous indirect monitoring]: Masimo, Purposeful Rounding, Nurse Knowledge Exchange ?? Patient-specific fall prevention interventions for sensory deficits provided, if applicable: n/a CPG GOAL OUTCOME EVALUATION: Goal: Individualization & Mutuality Outcome: Ongoing (Interventions Implemented as Appropriate) 12/14/17 0411 Mutuality/Individual Preferences What Anxieties, Fears or Concerns Do You Have About Your Health or Care? none What Questions Do You Have About Your Health or Care? when can I have pain meds? What Information Would Help Us Give You More Personalized Care? none Individualization Patient Specific Goals pain management Goal: Fall Prevention-Safe Patient Handling Outcome: Ongoing (Interventions Implemented as Appropriate) 12/18/172022 Albarran Fall Risk History of Falling 0 Secondary Diagnosis 0 Ambulatory Aids 0 Intravenous Therapy/Heparin/Saline Lock 20 Gait/Transferring 0 Mental Status 0 Score 20 OTHER Albarran Fall Risk Low Restraint Interventions Safety Promotion/Fall Prevention safety round/check completed Positioning Body Position lower extremity elevated, right Daily Care Interventions Self-Care Promotion independence encouraged Activity Activity Type bedrest Activity Assistance Provided assistance, 2 people Assistive Device Utilized mechanical lift Goal: Infection Control Outcome: Ongoing (Interventions Implemented as Appropriate) 07/28/18 2023 Safety Interventions Isolation Precautions standard precautions maintained Infection Prevention rest/sleep promoted Coping Strategies Supportive Measures active listening utilized;verbalization of feelings encouraged Problem: Fracture Orthopaedic (Adult) Goal: Signs and Symptoms of Listed Potential Problems Will be Absent, Minimized or Managed (Fracture Orthopaedic) Signs and symptoms of listed potential problems will be absent, minimized or managed by discharge/transition of care (reference Fracture Orthopaedic (Adult) CPG). Outcome: Ongoing (Interventions Implemented as Appropriate) 12/18/17 0758 Fracture Orthopaedic Problems Assessed (Orthopaedic Fracture) all Problems Present (Orthopaedic Fracture) functional deficit/ self-care deficit * Plan of Care - Kristyn Quiroz RN - 12/18/2017 12:15 PM EDT Problem: Skin Integrity Impairment, Risk/Actual (Adult) Goal: Identify Related Risk Factors and Signs and Symptoms Related risk factors and signs and symptoms are identified upon initiation of Human Response Clinical Practice Guideline (CPG) Outcome: Ongoing (Interventions Implemented as Appropriate) 12/16/17 1640 Skin Integrity Impairment, Risk/Actual Skin Integrity Impairment, Risk/Actual: Related Risk Factors immobility;surgery/procedure Signs and Symptoms (Skin Integrity Impairment) edema Goal: Skin Integrity/Wound Healing Patient will demonstrate the desired outcomes by discharge/transition of care. Outcome: Ongoing (Interventions Implemented as Appropriate) 12/17/17 1631 Skin Integrity Impairment, Risk/Actual (Adult) Skin Integrity/Wound Healing making progress toward outcome Problem: Patient Care Overview Goal: Plan of Care Review Outcome: Ongoing (Interventions Implemented as Appropriate) 12/16/17 1641 12/18/17 0758 Coping/Psychosocial Plan Of Care Reviewed With -- patient Plan of Care Review Progress progress toward functional goals as expected -- OUTCOME EVALUATION NOTE: OUTCOME SUMMARY: Patient progressing towards d/c goals appropriately at this time. Pt pain controlled with oxycodonePRN. Pt rested. C/o nausea early in shift but declined intervention. Dressing remain c/d/i. See MARfor medications administered. WIll continue to monitor and help patient reach d/c goals. PLAN MOVING FORWARD: Pain Control INDIVIDUALIZED FALL PREVENTION: Patient is currently a high risk to Fall. Patient specific risk factors include pain, generalized weakness, secondary diagnosis, WB status. Patient educated on bed/chair alarm, demonstrates proper use of call ann and verbalizes understanding of fall preventions implemented. Assistance: Patient is on bedrest but can be lifted to chair. Patient requires moderate assistance with ADLS. Supervision: Patient requires no bathroom supervision at this time. Surveillance: Patient monitored with bed/chair alarm, purposeful rounding, bedside Nurse Knowledge Exchange. CPG OUTCOME EVALUATION: Goal: Individualization & Mutuality Outcome: Ongoing (Interventions Implemented as Appropriate) 12/14/17 0411 Mutuality/Individual Preferences What Anxieties, Fears or Concerns Do You Have About Your Health or Care? none What Questions Do You Have About Your Health or Care? when can I have pain meds? What Information Would Help Us Give You More Personalized Care? none Individualization Patient Specific Goals pain management Goal: Fall Prevention-Safe Patient Handling Outcome: Ongoing (Interventions Implemented as Appropriate) 12/17/17204212/18/17 0758 Albarran Fall Risk History of Falling -- 0 Secondary Diagnosis -- 0 Ambulatory Aids -- 0 Intravenous Therapy/Heparin/Saline Lock -- 20 Gait/Transferring -- 0 Mental Status -- 0 Score -- 20 OTHER Albarran Fall Risk -- Low Restraint Interventions Safety Promotion/Fall Prevention -- activity supervised Positioning Body Position lower extremity elevated, right;supine, head elevated -- Daily Care Interventions Self-Care Promotion -- independence encouraged Activity Activity Type -- bedrest Activity Assistance Provided -- assistance, 2 people Assistive Device Utilized -- mechanical lift Goal: Infection Control Outcome: Ongoing (Interventions Implemented as Appropriate) 12/18/17 0758 Safety Interventions Isolation Precautions standard precautions maintained Infection Prevention single patient room provided Coping Strategies Supportive Measures active listening utilized Goal: Discharge Needs Assessment Outcome: Ongoing (Interventions Implemented as Appropriate) 12/16/17 1640 12/17/17 1631 12/17/17 1902 Discharge Needs Assessment Concerns To Be Addressed no discharge needs identified;denies needs/concerns at this time -- -- Readmission Within The Last 30 Days no previous admission in last 30 days -- -- Discharge Disposition -- still a patient -- Living Environment Transportation Available -- -- family or friend will provide Goal: Interdisciplinary Rounds/Family Conf Outcome: Ongoing (Interventions Implemented as Appropriate) 12/17/17 1631 Interdisciplinary Rounds/Family Conf Participants nursing;patient;occupational therapy;physical therapy Problem: Fracture Orthopaedic (Adult) Goal: Signs and Symptoms of Listed Potential Problems Will be Absent, Minimized or Managed (Fracture Orthopaedic) Signs and symptoms of listed potential problems will be absent, minimized or managed by discharge/transition of care (reference Fracture Orthopaedic (Adult) CPG). Outcome: Ongoing (Interventions Implemented as Appropriate) 12/18/17 0758 Fracture Orthopaedic Problems Assessed (Orthopaedic Fracture) all Problems Present (Orthopaedic Fracture) functional deficit/ self-care deficit * Plan of Care - Katherin Roper RN - 12/18/2017 5:14 AM EDT Problem: Skin Integrity Impairment, Risk/Actual (Adult) Goal: Identify Related Risk Factors and Signs and Symptoms Related risk factors and signs and symptoms are identified upon initiation of Human Response Clinical Practice Guideline (CPG) Outcome: Ongoing (Interventions Implemented as Appropriate) 12/16/17 1640 Skin Integrity Impairment, Risk/Actual Skin Integrity Impairment, Risk/Actual: Related Risk Factors immobility;surgery/procedure Signs and Symptoms (Skin Integrity Impairment) edema Goal: Skin Integrity/Wound Healing Patient will demonstrate the desired outcomes by discharge/transition of care. Outcome: Ongoing (Interventions Implemented as Appropriate) 12/17/17 1631 Skin Integrity Impairment, Risk/Actual (Adult) Skin Integrity/Wound Healing making progress toward outcome Problem: Patient Care Overview Goal: Plan of Care Review Outcome: Ongoing (Interventions Implemented as Appropriate) 12/16/17 1641 12/17/17 2043 Coping/Psychosocial Plan Of Care Reviewed With -- patient;significant other Plan of Care Review Progress progress toward functional goals as expected -- OUTCOME EVALUATION NOTE: OUTCOME SUMMARY: Patient progressing towards d/c goals appropriately at this time. Patient's pain adequately controlled with scheduled medications. Pt in chair at start of shift, lifted back to bed, tolerated well. RUE cast intact, no n/t. RLE dressing c/d/i. De Baca locked in extension. Elevated throughout shift. +dp & pt pulses. Ramirez catheter patent, draining adequate amounts CYU. Will continue to monitor and help patient reach d/c goals. PLAN MOVING FORWARD: Pain control OR on Mon INDIVIDUALIZED FALL PREVENTION: Patient is currently a low risk to Fall. Patient educated on bed/chair alarm, demonstrates proper use of call ann and verbalizes understanding of fall preventions implemented. Patient-specific fall risk factors per assessment: [current deficits]: NWB BLE, RUE, Pain, Medications, Hospital Environment. Assistance [level of assistance required for transfers and ambulation]: x2 assist, mechanical lift Supervision [direct monitoring required during toileting and ADLs]: Moderate assist with ADL's Surveillance [continuous indirect monitoring]: Masimo, Purposeful Rounding, Nurse Knowledge Exchange Patient-specific fall prevention interventions for sensory deficits provided, if applicable: n/a CPG GOAL OUTCOME EVALUATION: Goal: Individualization & Mutuality Outcome: Ongoing (Interventions Implemented as Appropriate) 12/14/17 0411 Mutuality/Individual Preferences What Anxieties, Fears or Concerns Do You Have About Your Health or Care? none What Questions Do You Have About Your Health or Care? when can I have pain meds? What Information Would Help Us Give You More Personalized Care? none Individualization Patient Specific Goals pain management Goal: Fall Prevention-Safe Patient Handling Outcome: Ongoing (Interventions Implemented as Appropriate) 12/16/17204012/17/17204212/17/17 2100 Albarran Fall Risk History of Falling -- 0 -- Secondary Diagnosis -- 0 -- Ambulatory Aids -- 0 -- Intravenous Therapy/Heparin/Saline Lock -- 20 -- Gait/Transferring -- 0 -- Mental Status -- 0 -- Score -- 20 -- OTHER Albarran Fall Risk -- Low -- Restraint Interventions Safety Promotion/Fall Prevention -- -- activity supervised;fall prevention program maintained;nonskid shoes/slippers when out of bed;safety round/check completed Positioning Body Position -- lower extremity elevated, right;supine, head elevated -- Daily Care Interventions Self-Care Promotion independence encouraged;BADL personal objects within reach -- -- Activity Activity Type -- bedrest;activity adjusted per tolerance -- Activity Assistance Provided -- assistance, 2 people -- Assistive Device Utilized -- mechanical lift -- Goal: Infection Control Outcome: Ongoing (Interventions Implemented as Appropriate) 12/17/17204212/17/17 2100 Safety Interventions Isolation Precautions -- standard precautions maintained Infection Prevention -- single patient room provided;rest/sleep promoted;personal protective equipment utilized;environmental surveillance performed;barrier precautions utilized Coping Strategies Supportive Measures active listening utilized;verbalization of feelings encouraged -- Problem: Fracture Orthopaedic (Adult) Goal: Signs and Symptoms of Listed Potential Problems Will be Absent, Minimized or Managed (Fracture Orthopaedic) Signs and symptoms of listed potential problems will be absent, minimized or managed by discharge/transition of care (reference Fracture Orthopaedic (Adult) CPG). Outcome: Ongoing (Interventions Implemented as Appropriate) 12/14/17 0752 12/16/17 1640 Fracture Orthopaedic Problems Assessed (Orthopaedic Fracture) -- all Problems Present (Orthopaedic Fracture) functional deficit/ self-care deficit;pain;situational response -- * Plan of Care - Pita Her RN - 12/17/2017 4:39 PM EDT Problem: Patient Care Overview Goal: Plan of Care Review OUTCOME EVALUATION NOTE: OUTCOME SUMMARY: Patient rested between care this shift. Pain controlled with PRN pain meds (see MAR) and cold application. Patient assisted to use slide board to get to the chair with PT and OT. Patient will be transferred to a lift room tonight. Patient became tearful when talking about her horse this AM; emotional support provided, patient feelings acknowledged. No signs or symptoms of acute distress at this time. Will continue to monitor. PLAN MOVING FORWARD: Pain control, PT/OT, OR on Wednesday, d/c planning as appropriate INDIVIDUALIZED FALL PREVENTION INTERVENTIONS: Patient-specific fall risk factors per assessment: [current deficits]: NWB BLE, narcotics Assistance [level of assistance required for transfers and ambulation]: mechanical lift, 2 assist Supervision [direct monitoring required during toileting and ADLs]: Hands on, eyes on Surveillance [continuous indirect monitoring]: Masimo, hourly rounding Patient-specific fall prevention interventions for sensory deficits provided, if applicable: [X] N/A CPG GOAL OUTCOME EVALUATION: * Plan of Care - Peter Bynum OT - 12/17/2017 2:58 PM EDT Occupational Therapy Treatment Note Treatment Number OT: 2 Pertinent History of Current Problem: Pertinent History of Current Problem: Ms. Pickard is a 52-year-old female who fell off of a horse and suffered multiple injuries. She was found to have a right split depression lateral tibial plateau fracture along with a right distal radius intra-articular comminuted fracture as well as a left posterior wall fracture. Now 1 Day Post-Op ORIF right distal radius and right tibial plateau fx Precautions/Restrictions: weight bearing, fall, brace worn when out of bed Precautions Comments: Non-weight bearing BLE. De Baca brace on RLE, locked in extension at all times. Non-weight bearing RUE. can platform weight bear through RUE Assessment: Pt seen for skilled OT interventions. Pt performed backwards scoot transfer from bed tochair w/ 2 person assist (assist for RLE and w/ draw sheet as pt scooted backwards into chair). Pt educated on transfer technique and use of tray table features to allow pt to participate in self-care w/ set up. Pt is motivated to particpate in therapy/self-care and organize plan to return home as soon as possible. Pt will benefit from ongoing therapeutic interventions to achieve pt's and therapygoals. Please refer to associated flowsheet data listed below for treatment session details. Staff Recommendations: ?? Assist w/ LE and use of bed features to transfer to EOB ?? Mechanical lift vs backwards scoot (2 person assist, assist for RLE and draw sheet) for transfers ?? Encourage OOB activity and participation in all self care tasks Anticipated Discharge Disposition: inpatient rehabilitation facility, residential facility Pager: [phone] Peter Bynum OT 12/17/2017 Occupational Therapy Rehabilitation Department 12/17/17 6964 Rehab Evaluation Document Type therapy note (daily note) Total Evaluation Minutes, Occupational Therapy 17 (sc x 1) Patient Effort good Symptoms Noted During/After Treatment increased pain;fatigue General Information Patient Profile Review yes Patient/Family/Caregiver Comments/Observations I've been moving as much as I can, they told me that'll be better for me after the OR. General Observations of Patient Pt supine in bed eager to transfer to chair Pertinent History of Current Problem Pertinent History of Current Problem: Ms. Pickard is a 52-year-old female who fell off of a horse and suffered multiple injuries. She was found to have a right split depression lateral tibial plateau fracture along with a right distal radius intra-articular comminuted fracture as well as a left posterior wall fracture. Now 1 Day Post-Op ORIF right distal radiusand right tibial plateau fx Precautions/Restrictions weight bearing;fall;brace worn when out of bed Precautions Comments Non-weight bearing BLE. Bishnu brace on RLE, locked in extension at all times. Non-weight bearing RUE. can platform weight bear through RUE Treatment Number OT 2 Right Upper Extremity (Weight Bearing Status) (platform WB) Left Lower Extremity (Weight Bearing Status) nonweight bearing Right Lower Extremity (Weight Bearing Status) nonweight bearing Living Environment Patient population Adult Living Environment Living Environment Comment Lives with fidele in their own home. Full flight of stairs to main living area. Then three stairs into bathroom. Functional Level Prior Prior Functional Level Comment Pt independent mobility, ADLs, IADLs Self-Care Dominant Hand right Cognitive Assessment Interventions Behavior/Mood Observations (Cognitive) alert;cooperative Orientation Status (Cognitive) oriented x 4 Attention (Cognitive) WNL/WFL Follows Commands/Answers Questions (Cognitive) 100% of the time;able to follow multi-step instructions Pain Scale/Rating Pain Assessment Scale Word (verbal rating pain scale) Pain Level (tolerable) Pain Assessment Numbers/Faces/Word Pain Body Location - Side Right Pain Body Location leg Mobility Assessment/Training Additional Documentation Transfer Assessment/Treatment (Group) Bed Mobility Assessment/Treatment Assistive Device (Bed Mobility) leg ancient art curator;draw sheet [employer] [place] (Bed Mobility) minimum assist (75% patient effort);moderate assist (50% patient effort);verbal cues required Impairments (Bed Mobility) ROM (range of motion) decreased;strength decreased;pain Comment (Bed Mobility) Pt performed bed mobility w/ assist for RLE and us of drawsheet to get into position for backward scoot transfer. Transfer Assessment/Treatment Bed-Chair [place] (Transfers) minimum assist (75% patient effort);moderate assist (50% patienteffort);verbal cues required Xba-Axfoq-Gdo Assistive Device (Transfers) (none) Impairments (Transfers) pain;ROM (range of motion) decreased;flexibility decreased Comment (Transfers) Pt performed backwards scoot from bed to chair (lift pad left under pt in chair). Pt required incraesed time, verbal cues, assist for her RLE and assist to scoot back into chair w/ use of drawsheet. Grooming Assessment/Training Comment (Grooming) Pt educated on use of Bathing Goal Bathing Goal, Date Established 12/15/17 Bathing Goal, Time to Achieve 2 wks Bathing Goal, Activity Type Pt will perform sponge bath sitting EOB/in chair w/ set up only. Bathing Goal, Outcome goal ongoing Grooming Goal Grooming Goal, Date Established 12/15/17 Grooming Goal, Time to Achieve 2 wks Grooming Goal, Activity Type Pt will sit EOB and perform 2-3 grooming tasks w/ set up only. Grooming Goal, Outcome goal ongoing Toileting Goal Toileting Goal, Date Established 12/15/17 Toileting Goal, Time to Achieve 2 wks Toileting Goal, Activity Type Pt will transfer to bedside commode w/ Yany and AD as needed. Toileting Goal, Outcome goal ongoing LB Dressing Goal LB Dressing Goal, Date Established 12/15/17 LB Dressing Goal, Time to Achieve 2 wks LB Dressing Goal, Activity Type Pt will don pants independently w/ AE as needed. LB Dressing Goal, Outcome goal ongoing UB Dressing Goal UB Dressing Goal, Date Established 12/15/17 UB Dressing Goal, Time to Achieve 2 wks UB Dressing Goal, Activity Type Pt will don shirt independently. UB Dressing Goal, Outcome goal ongoing Occupational Therapy Goal OT Goal, Date Established 12/15/17 OT Goal, Time to Achieve 2 wks OT Goal, Activity Type Pt will perform funcitonal mobility to unit kitchen for small snack w/ supervision and w/c. OT Goal, Outcome goal ongoing Clinical Impression Criteria for Skilled Therapeutic Interventions Met treatment indicated Rehab Potential good, to achieve stated therapy goals Therapy Frequency 2-4 times/wk Anticipated Equipment Needs at Discharge (TBD) Anticipated Discharge Disposition inpatient rehabilitation facility;residential facility * Plan of Care - Roberto Almodovar, PT - 12/17/2017 2:55 PM EDT Physical Therapy Treatment Treatment Number PT: 2 Pertinent History of Current Problem: Ms. Pickard is a 52-year-old female who fell off of a horse and suffered multiple injuries. She was found to have a right split depression lateral tibial plateau fracture along with a right distal radius intra-articular comminuted fracture as well as a left posterior wall fracture. Daphne Pickard is a 52 y.o. female 1 Day Post-Op ORIF right distal radius and right tibial plateau fx Precautions/Restrictions: weight bearing, fall, brace worn when out of bed Precautions Comments: Non-weight bearing BLE. De Baca brace on RLE, locked in extension at all times. Non-weight bearing RUE. can platform weight bear through RUE Weight-Bearing Status Extremity Weight Bearing Status: right lower extremity, left lower extremity, right upper extremity Right Upper Extremity (Weight Bearing Status): (platform WB) Left Lower Extremity (Weight Bearing Status): nonweight bearing Right Lower Extremity (Weight Bearing Status): nonweight bearing Assessment: Pt seen for progression of functional mobility. Pt demonstrated backwards transfer intorecliner chair. Pt took cuing for sequencing and technique well and reported pain controlled duringsession. Will continue to progress transfers as appropriate. Please see the flow sheet below for patient details and mobility. Pt would benefit from ongoing physical therapy interventions. Staff Mobility Recommendations Mechanical lift to chair for meals Anticipated Discharge Disposition: (S) residential facility Roberto Almodovar, PT Pager: [phone] Inpatient Physical Therapy 12/17/17 6577 Rehab Evaluation Document Type therapy note (daily note) Total Evaluation Minutes, Physical Therapy 17 Patient Effort good Symptoms Noted During/After Treatment increased pain;fatigue General Information Patient Profile Review yes Patient/Family/Caregiver Comments/Observations I'm determined to do as much as I can myself Pertinent History of Current Problem Ms. Pickard is a 52-year-old female who fell off of a horse andsuffered multiple injuries. She was found to have a right split depression lateral tibial plateau fracture along with a right distal radius intra-articular comminuted fracture as well as a left posterior wall fracture. Daphne Pickard is a 52 y.o. female 1 Day Post-Op ORIF right distal radius andright tibial plateau fx Hearing Precautions/Limitations WFL Precautions/Restrictions weight bearing;fall;brace worn when out of bed Precautions Comments Non-weight bearing BLE. De Baca brace on RLE, locked in extension at all times. Non-weight bearing RUE. can platform weight bear through RUE Treatment Number PT 2 Pain Scale/Rating Pain Assessment Scale Numbers (Numeric Rating Pain Scale) Pain Level 8 Mobility Assessment/Training Additional Documentation Transfer Assessment/Treatment (Group) Bed Mobility Assessment/Treatment Assistive Device (Bed Mobility) leg ancient art curator;draw sheet [employer] [place] (Bed Mobility) minimum assist (75% patient effort);moderate assist (50% patient effort) Comment (Bed Mobility) moving around in bed to sit up on edge with back on the edge Scoot/Bridge [place] (Bed Mobility) minimum assist (75% patient effort);moderate assist (50% patient effort) Transfer Assessment/Treatment Bed-Chair [place] (Transfers) minimum assist (75% patient effort);moderate assist (50% patienteffort) Ayf-[id number] Assistive Device (Transfers) (backwards/forwards) Comment (Transfers) backwards/forwards transfer on R side of bed back into recliner chair; use of leg ancient art curator; vc's for sequencing and technique Orthotics/Prosthetics Additional Documentation Orthosis Location/Type (Group) Orthosis Location/Type Location/Type (Orthosis) upper extremity Upper Extremity (Orthosis) Right: (hard cast) Lower Extremity (Orthosis) Right:;knee orthosis Orthosis Management/Training Adjustment Comment (Orthosis) no adjustment needed Plan of Care Review Plan Of Care Reviewed With patient Bed Mobility Goal Bed Mobility Goal, Date Established 12/15/17 Bed Mobility Goal, Time to Achieve 30 days Bed Mobility Goal, Activity Type roll left/roll right;supine to sit/sit to supine Bed Mobility Goal, Cornwall Level minimum assist (75% patient effort) Bed Mobility Goal, Assistive Device leg ancient art curator Bed Mobility Goal, Date Goal Reviewed 12/17/17 Bed Mobility Goal, Outcome Achieved goal ongoing Transfer Training Goal Transfer Training Goal, Date Established 12/15/17 Transfer Training Goal, Time to Achieve 30 days Transfer Training Goal, Activity Type [id number] Transfer Train Goal, [place] Level moderate assist (50% patient effort) Transfer Training Goal, Assist Device other (see comments) (slideboard) Transfer Train Goal, Date Goal Reviewed 12/17/17 Transfer Training Goal, Outcome goal ongoing Physical Therapy Goal PT Goal, Date Established 12/15/17 PT Goal, Time to Achieve 30 days PT Goal, Activity Type Pt will manually propel w/c household distances w/ Yany for steering PT Goal, Additional Goal Pt will perform supine bed exercises with tolerable pain levels Clinical Impression Therapy Frequency 2-4 times/wk Anticipated Equipment Needs at Discharge wheelchair Anticipated Discharge Disposition residential facility * Plan of Care - Arabella Nuñez RN - 12/17/2017 1:37 AM EDT Problem: Patient Care Overview Goal: Plan of Care Review Outcome: Ongoing (Interventions Implemented as Appropriate) 12/16/17 1641 12/16/17 204 Coping/Psychosocial Plan Of Care Reviewed With -- patient Plan of Care Review Progress progress toward functional goals as expected -- OUTCOME EVALUATION NOTE: OUTCOME SUMMARY: Pt A+O, VSS. Resting between care overnight. Pain controlled with PRN oxycodone. Ramirez draining CYU. Bishnu brace to RLE, hard cast to RUE. NPO @ midnight (12/17) for OR. No other acute events, will continue to monitor. PLAN MOVING FORWARD: Pain control, OR, mobility, d/c planning INDIVIDUALIZED FALL PREVENTION INTERVENTIONS: Patient-specific fall risk factors per assessment: [current deficits]: NWB BLE, pain, narcotics, hospital environment Assistance [level of assistance required for transfers and ambulation]: 2 assist w/ repositioning Supervision [direct monitoring required during toileting and ADLs]: Hands on Surveillance [continuous indirect monitoring]: Tiffany, purposeful rounding Patient-specific fall prevention interventions for sensory deficits provided, if applicable: [X] N/A CPG GOAL OUTCOME EVALUATION: * Plan of Care - Karin Hawkins RN - 12/16/2017 4:45 PM EDT Problem: Patient Care Overview Goal: Plan of Care Review Outcome: Ongoing (Interventions Implemented as Appropriate) 12/16/17 1641 Coping/Psychosocial Plan Of Care Reviewed With patient Plan of Care Review Progress progress toward functional goals as expected OUTCOME EVALUATION NOTE: OUTCOME SUMMARY: Pt denies chest pain, SOB, nausea, and n/t. Pt's pain is adequately managed with PRN pain meds (seeMAR). Ramirez was placed per MD for urinary retention. No acute events. Plans for OR tomorrow. See doc flowsheet for full pt assessment. Call ann within reach. VSS. Will continue to monitor. PLAN MOVING FORWARD: Pain management, mobilize, d/c planning INDIVIDUALIZED FALL PREVENTION INTERVENTIONS: Patient-specific fall risk factors per assessment: [current deficits]: Hospital environment, narcotics, pain, impaired mobility, trauma Assistance [level of assistance required for transfers and ambulation]: Bedrest, 2 assist to turn/reposition Supervision [direct monitoring required during toileting and ADLs]: Hands-on Surveillance [continuous indirect monitoring]: Masimo, hourly rounding Patient-specific fall prevention interventions for sensory deficits provided, if applicable: [X] N/A * Plan of Care - Jamar Wolf RN - 12/16/2017 8:11 AM EDT Problem: Patient Care Overview Goal: Plan of Care Review 12/15/17 1713 12/16/17 08 Coping/Psychosocial Plan Of Care Reviewed With -- patient Plan of Care Review Progress progress toward functional goals as expected -- OUTCOME EVALUATION NOTE: OUTCOME SUMMARY: Pt unable to void, st cathed X1. Pain controlled with oxycodone. Good CSM to RLE PLAN MOVING FORWARD: Possible OR today. INDIVIDUALIZED FALL PREVENTION INTERVENTIONS: Patient-specific fall risk factors per assessment: [current deficits]: Pain meds, impaired mobility Assistance [level of assistance required for transfers and ambulation]: 2 assist with bed mobility Supervision [direct monitoring required during toileting and ADLs]: independent Surveillance [continuous indirect monitoring]: Purposeful rounding Patient-specific fall prevention interventions for sensory deficits provided, if applicable: [X] No CPG GOAL OUTCOME EVALUATION: Goal: Individualization & Mutuality 12/14/17 0411 Mutuality/Individual Preferences What Anxieties, Fears or Concerns Do You Have About Your Health or Care? none What Questions Do You Have About Your Health or Care? when can I have pain meds? What Information Would Help Us Give You More Personalized Care? none Individualization Patient Specific Goals pain management Goal: Fall Prevention-Safe Patient Handling 12/15/17 0843 12/16/17 0800 [place] Fall Risk History of Falling -- 0 Secondary Diagnosis -- 0 Ambulatory Aids -- 0 Intravenous Therapy/Heparin/Saline Lock -- 20 Gait/Transferring -- 0 Mental Status -- 0 Score -- 20 OTHER [place]ran Fall Risk -- Low Restraint Interventions Safety Promotion/Fall Prevention -- fall prevention program maintained;safety round/check completed Positioning Body Position -- supine, head elevated;lower extremity elevated, right;upper extremity elevated, right Activity Activity Type -- bedrest Activity Assistance Provided -- assistance, 2 people Assistive Device Utilized none -- Goal: Infection Control 12/16/17 0800 Safety Interventions Isolation Precautions standard precautions maintained Infection Prevention environmental surveillance performed;personal protective equipment utilized;rest/sleep promoted;single patient room provided Coping Strategies Supportive Measures active listening utilized;relaxation techniques promoted;self-care encouraged;verbalization of feelings encouraged Goal: Discharge Needs Assessment 12/15/17 1114 Discharge Needs Assessment Concerns To Be Addressed no discharge needs identified;denies needs/concerns at this time Readmission Within The Last 30 Days no previous admission in last 30 days * Plan of Care - Jamar Wolf RN - 12/16/2017 4:26 AM EDT Problem: Patient Care Overview Goal: Plan of Care Review 12/15/17 1713 12/16/17 0200 Coping/Psychosocial Plan Of Care Reviewed With -- patient Plan of Care Review Progress progress toward functional goals as expected -- OUTCOME EVALUATION NOTE: OUTCOME SUMMARY: Pure Wick in place, pt unable to void. St cathed for 375ml clear yellow urine. Pain controlled withoxycodone 10mg. Good CSMT to RLE.. PLAN MOVING FORWARD: Possible OR on Wednesday, mobilize as tolerated INDIVIDUALIZED FALL PREVENTION INTERVENTIONS: Patient-specific fall risk factors per assessment: [current deficits]: Pain meds, impaired mobility Assistance [level of assistance required for transfers and ambulation]: 1-2 assist with bed mobility Supervision [direct monitoring required during toileting and ADLs]: independent Surveillance [continuous indirect monitoring]: Purposeful rounding Patient-specific fall prevention interventions for sensory deficits provided, if applicable: [X] No CPG GOAL OUTCOME EVALUATION: Goal: Individualization & Mutuality 12/14/17 0411 Mutuality/Individual Preferences What Anxieties, Fears or Concerns Do You Have About Your Health or Care? none What Questions Do You Have About Your Health or Care? when can I have pain meds? What Information Would Help Us Give You More Personalized Care? none Individualization Patient Specific Goals pain management Goal: Fall Prevention-Safe Patient Handling 12/15/17 0843 12/16/17 0300 [place] Fall Risk History of Falling 0 -- Secondary Diagnosis 0 -- Ambulatory Aids 0 -- Intravenous Therapy/Heparin/Saline Lock 20 -- Gait/Transferring 0 -- Mental Status 0 -- Score 20 -- OTHER [place] Fall Risk Low -- Restraint Interventions Safety Promotion/Fall Prevention fall prevention program maintained;safety round/check completed -- Positioning Body Position -- supine, head elevated;upper extremity elevated, right;lower extremity elevated, right Activity Activity Type bedrest -- Activity Assistance Provided assistance, 2 people -- Assistive Device Utilized none -- Goal: Infection Control 12/15/17 0843 12/16/17 0200 Safety Interventions Isolation Precautions standard precautions maintained -- Infection Prevention environmental surveillance performed;personal protective equipment utilized;rest/sleep promoted;single patient room provided -- Coping Strategies Supportive Measures -- active listening utilized Goal: Discharge Needs Assessment 12/15/17 1114 Discharge Needs Assessment Concerns To Be Addressed no discharge needs identified;denies needs/concerns at this time Readmission Within The Last 30 Days no previous admission in last 30 days * Plan of Care - Karin Hawkins RN - 12/15/2017 5:28 PM EDT Problem: Patient Care Overview Goal: Plan of Care Review Outcome: Ongoing (Interventions Implemented as Appropriate) 12/15/17 1713 Coping/Psychosocial Plan Of Care Reviewed With patient Plan of Care Review Progress progress toward functional goals as expected OUTCOME EVALUATION NOTE: OUTCOME SUMMARY: Pt denies chest pain, SOB, nausea, and n/t. Pt's pain is adequately managed with PRN pain meds (seeMAR). Pt sat up at the edge of the bed today with PT/OT, tolerated well. Pt weaned off of O2, sats in mid 90's. No acute events. Plans for OR Wednesday. See doc flowsheet for full pt assessment. Call ann within reach. VSS. Will continue to monitor. PLAN MOVING FORWARD: Pain management, improve mobility, d/c planning INDIVIDUALIZED FALL PREVENTION INTERVENTIONS: Patient-specific fall risk factors per assessment: [current deficits]: Hospital environment, narcotics, pain, impaired mobility Assistance [level of assistance required for transfers and ambulation]: Bedrest, 2 assist to turn/reposition Supervision [direct monitoring required during toileting and ADLs]: Hands-on Surveillance [continuous indirect monitoring]: Masimo, hourly rounding Patient-specific fall prevention interventions for sensory deficits provided, if applicable: [X] N/A * Plan of Care - Roberto Almodovar PT - 12/15/2017 11:27 AM EDT Physical Therapy Evaluation Pertinent History of Current Problem: Ms. Pickard is a 52-year-old female who fell off of a horse and suffered multiple injuries. She was found to have a right split depression lateral tibial plateau fracture along with a right distal radius intra-articular comminuted fracture as well as a left posterior wall fracture. Daphne Pickard is a 52 y.o. female 1 Day Post-Op ORIF right distal radius and right tibial plateau fx Precautions/Restrictions: weight bearing, fall Precautions Comments: NWB BLE; bishnu locked in ext; NWB RUE (can platform WB) Weight-Bearing Status Extremity Weight Bearing Status: right lower extremity, left lower extremity, right upper extremity Right Upper Extremity (Weight Bearing Status): (platform WB) Left Lower Extremity (Weight Bearing Status): nonweight bearing Right Lower Extremity (Weight Bearing Status): nonweight bearing Assessment: Patient seen for initial evaluation in conjunction with OT. Pt presents with increased pain, impaired skin integumentary, impaired joint integrity & mobility, impaired strength/ROM. These impairments limit patient ability to perform functional mobility, gait and balance. Pt able to tolerate sitting EOB this session with stable vitals. Unable to progress transfers this session secondary to pain and feeling of naseau. Patient motivated to participate in therapy but progress may beslow secondary to weight bearing status. Please see associated flow sheet data below for objective information regarding today's session Staff Mobility Recommendations: 2 person to sit EOB; mechanical lift to chair when able Anticipated Discharge Disposition: (S) residential facility Roberto Almodovar PT Pager: [phone] Inpatient Physical Therapy 2017 PT Evaluation Code Rationale: ?? Diagnosis & Pertinent Co-Morbidities, personal factors, and present illness affecting Plan of Care: Patient Active Problem List Diagnosis Code ??? Trauma T14.90XA ??? Fracture of right tibial plateau S82.141A ??? Radius/ulna fracture, right, closed, initial encounter S52.91XA, S52.201A ??? Closed fracture of posterior wall of left acetabulum S32.422A Additional personal factors or co-morbidities that impact plan: ?? Total # of Factors: 0 1-2 3+ x ?? Examination of body system impairments, functional limitations and behaviors, and/or participation restrictions. Addressing 1-2 elements Addressing 3 + elements Addressing 4 + elements x ?? Clinical presentation: See assessment above. Stable/Uncomplicated Evolving/Fluctuating Symptoms Unstable/Unpredictable x ?? Clinical decision making of high complexity based on pt's functional performance as outlined in this evaluation. 12/15/17 1127 Rehab Evaluation Document Type evaluation Total Evaluation Minutes, Physical Therapy 50 (MANA lang) Patient Effort good Symptoms Noted During/After Treatment increased pain;fatigue (naseau) General Information Patient Profile Review yes Patient/Family/Caregiver Comments/Observations that was so much work General Observations of Patient supine in bed, RLE elevated on pillow; bishnu brace locked in extension Pertinent History of Current Problem Ms. Pickard is a 52-year-old female who fell off of a horse andsuffered multiple injuries. She was found to have a right split depression lateral tibial plateau fracture along with a right distal radius intra-articular comminuted fracture as well as a left posterior wall fracture. Daphne Pickard is a 52 y.o. female 1 Day Post-Op ORIF right distal radius andright tibial plateau fx Hearing Precautions/Limitations WFL Precautions/Restrictions weight bearing;fall Precautions Comments NWB BLE; bishnu locked in ext; NWB RUE (can platform WB) Treatment Number PT 1 Right Upper Extremity (Weight Bearing Status) (platform WB) Left Lower Extremity (Weight Bearing Status) nonweight bearing Right Lower Extremity (Weight Bearing Status) nonweight bearing Living Environment Patient population Adult Living Environment Living Environment Comment Lives with her yumi in their home in [place], [place]. 18 steps to enter the home. Has 3 horses at home, 4 labs and 2 cats Functional Level Prior Prior Functional Level Comment Reports she has a sister that is a PT. may be able to obtain DME from family members. 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 Vital Signs SpO2 97 % O2 Flow Rate (L/min) 0 L/min O2 Device RA Pain Scale/Rating Pain Assessment Scale Word (verbal rating pain scale) Pain Level (crying out in pain; deep breathing techniques ) ROM (Range of Motion) Additional Documentation General Assessment (Group) General Range of Motion lower extremity range of motion deficits identified General LE Assessment Lower Extremity: Range of Motion Detail RLE locked in extension; able to move L hip/knee functionally MMT (Manual Muscle Testing) Additional Documentation General Assessment (Group) General Manual Muscle Testing Assessment Detail LE not tested 2/2 increased pain; moving LLE against gravity Mobility Assessment/Training Additional Documentation Bed Mobility Assessment/Treatment (Group);Weight- Bearing Status (Group) Weight-Bearing Status Extremity Weight Bearing Status right lower extremity;left lower extremity;right upper extremity Bed Mobility Assessment/Treatment Assistive Device (Bed Mobility) leg ancient art curator;draw sheet;bed rails (elevated HOB) Wkzshi-ls-Cwi [place] (Bed Mobility) minimum assist (75% patient effort);2 person assist required;moderate assist (50% patient effort) Ucu-wl-Ujulwg [place] (Bed Mobility) maximum assist (25% patient effort);2 person assist required;verbal cues required Impairments (Bed Mobility) flexibility decreased;pain;ROM (range of motion) decreased;strength decreased Comment (Bed Mobility) increased time 2/2 pain; able to move LLE not not RLE; vc's for technique; use of draw sheet Scoot/Bridge [place] (Bed Mobility) minimum assist (75% patient effort) Safety Issues (Bed Mobility) decreased use of arms for pushing/pulling;decreased use of legs for bridging/pushing Motor Skills/Interventions Additional Documentation Balance Skills Training (Group) Balance Skills Training Training Strategies (Balance) seated EOB activities to perform ADL's; able to do some independently; therapist assisted with the rest Orthotics/Prosthetics Additional Documentation Orthosis Management/Training (Group) Orthosis Location/Type Location/Type (Orthosis) upper extremity;lower extremity Upper Extremity (Orthosis) Right: (hard cast) Lower Extremity (Orthosis) Right:;knee orthosis Orthosis Management/Training Indications (Orthosis) immobilize, protect/position healing structures Wear Schedule (Orthosis) wear timekeeping supervisor Plan of Care Review Plan Of Care Reviewed With patient Physical Therapy Goal Types Physical Therapy Goal Types Bed Mobility Goal (Group);Transfer Training Goal (Group);Physical Therapy Goal (Group) Bed Mobility Goal Bed Mobility Goal, Date Established 12/15/17 Bed Mobility Goal, Time to Achieve 30 days Bed Mobility Goal, Activity Type roll left/roll right;supine to sit/sit to supine Bed Mobility Goal, [place] Level minimum assist (75% patient effort) Bed Mobility Goal, Assistive Device leg ancient art curator Transfer Training Goal Transfer Training Goal, Date Established 12/15/17 Transfer Training Goal, Time to Achieve 30 days Transfer Training Goal, Activity Type kgz-ml-zhjgf/mikbg-gb-sre Transfer Train Goal, [place] Level moderate assist (50% patient effort) Transfer Training Goal, Assist Device other (see comments) (slideboard) Physical Therapy Goal PT Goal, Date Established 12/15/17 PT Goal, Time to Achieve 30 days PT Goal, Activity Type Pt will manually propel w/c household distances w/ Yany for steering PT Goal, Additional Goal Pt will perform supine bed exercises with tolerable pain levels Clinical Impression Rehab Potential good, to achieve stated therapy goals Therapy Frequency 2-4 times/wk Anticipated Equipment Needs at Discharge wheelchair Anticipated Discharge Disposition residential facility General Interventions Additional Documentation Planned Therapy Interventions (Group) Planned Therapy Interventions bed mobility training;home exercise program;orthotic fitting/training;ROM (range of motion);strengthening;stretching;transfer training;wheelchair management/propulsion training * Plan of Care - Peter Bynum, OT - 12/15/2017 10:40 AM EDT Occupational Therapy Evaluation Pertinent History of Current Problem: Ms. Pickard is a 52-year-old female who fell off of a horse and suffered multiple injuries. She was found to have a right split depression lateral tibial plateau fracture along with a right distal radius intra-articular comminuted fracture as well as a left posterior wall fracture. Now 1 Day Post-Op ORIF right distal radius and right tibial plateau fx Precautions/Restrictions: weight bearing, fall (bishnu at all times) Precautions Comments: Non-weight bearing BLE. [place] brace on RLE, locked in extension at all times. Non-weight bearing RUE. can platform weight bear through RUE Assessment: Pt has been seen for occupational therapy evaluation, please refer to associated flowsheet data listed below for details. Daphne Pickard presents with the following performance skill deficits and client factors: pain, ROM, strength, bishnu brace on RLE, NWB BLE, NWB (dominant) RUE, and functional activity tolerance. These performance deficits have led to activity limitations and participation restrictions in the following areas of occupation: dressing, bathing, grooming, toileting, mobility, transferring, rest/sleep, home management, roles/routines, work, leisure, driving, community mobility, communication, and social participation. Pt motivated and active participant duringtoday's eval. Pt required increased time, verbal cues, and assist for her LE to transfer from supine EOB. Pt tolerated sitting EOB well and participated in sponge bath w/ assistance for her back, legs, and tina-care. Pt has supportive fiance and family and is motivated to return home; however, will greatly benefit from an inpatient rehab stay to allow her to regain as much functional independenceas possible. Pt would benefit from further inpatient OT interventions to address performance deficits and maximize participation and independence with occupations of daily living. Staff Recommendations: ?? Assist w/ LE and use of bed features to transfer to EOB ?? Mechanical lift for transfers ?? Encourage activity and participation in all self care tasks Anticipated Discharge Disposition: inpatient rehabilitation facility, residential facility Pager: [phone] Peter Bynum, OT 12/15/2017 Occupational Therapy Rehabilitation Department 2017 OT Evaluation Code Rationale: ?? Diagnosis & Pertinent Co-Morbidities affecting Plan of Care: see PMHx ?? Occupational Profile & Client History: Brief Expanded Extensive x ?? Assessment of Occupational Performance: 1-3 performance deficits 3-5 performance deficits 5 + performance deficits x ?? Clinical Decision Making: Low Moderate High x Clinical decision making of moderate complexity using standardized patient assessment instrument and measurable assessment of functional outcome. 12/15/17 1040 Rehab Evaluation Document Type evaluation Total Evaluation Minutes, Occupational Therapy 50 (eval + sc x2 ) Patient Effort excellent Symptoms Noted During/After Treatment increased pain;fatigue General Information Patient Profile Review yes Patient/Family/Caregiver Comments/Observations That was really exhausting. General Observations of Patient Pt supine in bed, RLE elevated w/ bishnu brace in place and lock, RUE elevated on pillows as well Pertinent History of Current Problem Ms. Pickard is a 52-year-old female who fell off of a horse andsuffered multiple injuries. She was found to have a right split depression lateral tibial plateau fracture along with a right distal radius intra-articular comminuted fracture as well as a left posterior wall fracture. Daphne Pickard is a 52 y.o. female 1 Day Post-Op ORIF right distal radius andright tibial plateau fx Hearing Precautions/Limitations WFL Precautions/Restrictions weight bearing;fall (bishnu at all times) Precautions Comments Non-weight bearing BLE. De Baca brace on RLE, locked in extension at all times. Non-weight bearing RUE. can platform weight bear through RUE Treatment Number OT 1 Living Environment Patient population Adult Living Environment Living Environment Comment Lives with yumi in their own home. Full flight of stairs to main living area. Then three stairs into bathroom. Functional Level Prior Prior Functional Level Comment Pt independent mobility, ADLs, IADLs Self-Care Dominant Hand right Vital Signs SpO2 96 % O2 Device RA Vision Assessment/Intervention Additional Documentation (WFL w/ glasses) Cognitive Assessment/Intervention Additional Documentation Cognitive Assessment Interventions (Group) Cognitive Assessment Interventions Behavior/Mood Observations (Cognitive) WNL/WFL;alert;cooperative Orientation Status (Cognitive) oriented x 4 Attention (Cognitive) WNL/WFL Follows Commands/Answers Questions (Cognitive) 100% of the time Pain Scale/Rating Pain Assessment Scale Word (verbal rating pain scale) Pain Level (tolerable) Pain Assessment Numbers/Faces/Word Pain Body Location - Side Right Pain Body Location leg ROM (Range of Motion) Additional Documentation (LUE WFL for ADL, R shoulder/elbow WFL, wiggling R fingers) Mobility Assessment/Training Additional Documentation Bed Mobility Assessment/Treatment (Group) Bed Mobility Assessment/Treatment Assistive Device (Bed Mobility) bed rails;draw sheet (HOB raised) Ndpeed-gn-Soj [place] (Bed Mobility) minimum assist (75% patient effort);2 person assist required;verbal cues required;moderate assist (50% patient effort) Ljf-dn-Ntbloo [place] (Bed Mobility) maximum assist (25% patient effort);2 person assist required Impairments (Bed Mobility) pain;ROM (range of motion) decreased;strength decreased;balance impaired;coordination impaired;motor control impaired Comment (Bed Mobility) Pt assisted w/ progressing LE towards EOB and lowering RLE to floor. Pt required increased time and verbal cues for technique. Pt assisted w/ draw sheet closer to the EOB. ADL Assessment/Intervention IADL Assessment/Training: Comment Pt issued and educated on use of candy mixer. Additional Documentation Bathing Assessment/Training (Group);Upper Body Dressing Assessment/Training (Group);Grooming Assessment/Training (Group);IADL Assessment/Training: Comment (Row) Bathing Assessment/Training Assistive Devices (Bathing) (bath wipes) Position (Bathing) sitting [place] Level (Bathing) moderate assist (50% patient effort) Impairments (Bathing) pain;ROM (range of motion) decreased;strength decreased;balance impaired Comment (Bathing) Pt performed sponge bath to her anterior thorax/abdomen. Pt assisted w/ her back,LE, and tina-care. Pt assisted donning shampoo cap and w/ application. Upper Body Dressing Assessment/Training Position (UB Dressing) sitting [place] Level (UB Dressing) minimum assist (75% patient effort) Impairments (UB Dressing) pain;ROM (range of motion) decreased;strength decreased;balance impaired Comment (UB Dressing) Pt assisted litaning jeri. Plan of Care Review Plan Of Care Reviewed With patient;significant other Occupational Therapy Goal Types Occupational Therapy Goal Types Bathing Goal (Group);Grooming Goal (Group);Toileting Goal (Group);LB Dressing Goal (Group);UB Dressing Goal (Group);Occupational Therapy Goal (Group) Bathing Goal Bathing Goal, Date Established 12/15/17 Bathing Goal, Time to Achieve 2 wks Bathing Goal, Activity Type Pt will perform sponge bath sitting EOB/in chair w/ set up only. Grooming Goal Grooming Goal, Date Established 12/15/17 Grooming Goal, Time to Achieve 2 wks Grooming Goal, Activity Type Pt will sit EOB and perform 2-3 grooming tasks w/ set up only. Toileting Goal Toileting Goal, Date Established 12/15/17 Toileting Goal, Time to Achieve 2 wks Toileting Goal, Activity Type Pt will transfer to bedside commode w/ Yany and AD as needed. LB Dressing Goal LB Dressing Goal, Date Established 12/15/17 LB Dressing Goal, Time to Achieve 2 wks LB Dressing Goal, Activity Type Pt will don pants independently w/ AE as needed. UB Dressing Goal UB Dressing Goal, Date Established 12/15/17 UB Dressing Goal, Time to Achieve 2 wks UB Dressing Goal, Activity Type Pt will don shirt independently. Occupational Therapy Goal OT Goal, Date Established 12/15/17 OT Goal, Time to Achieve 2 wks OT Goal, Activity Type Pt will perform funcitonal mobility to unit kitchen for small snack w/ supervision and w/c. Clinical Impression Criteria for Skilled Therapeutic Interventions Met treatment indicated Rehab Potential good, to achieve stated therapy goals Therapy Frequency 2-4 times/wk Anticipated Equipment Needs at Discharge (TBD) Anticipated Discharge Disposition inpatient rehabilitation facility, residential facility General Therapy Interventions Additional Documentation Planned Therapy Interventions (Group) Planned Therapy Interventions ADL retraining;IADL retraining;balance training;bed mobility training;orthotic fitting/training;ROM (range of motion);strengthening;stretching;transfer training;other (see comments);fine motor coordination training;motor coordination training (energy conservation) * Initial Assessments - Monica Hu MSW - 12/15/2017 10:15 AM EDT Office of Care Management Initial Assessment SHERI UPTON reviewed record and discussed patient with Care Team. Source of Information: patient Introduced self/reviewed role; services accepted. Reason for Hospitalization: Reason for Admission as Stated by Patient: thrown off horse Past Medical History: Diagnosis Date ??? Basal cell carcinoma 2010 Hospitalizations Within the Past 30 Days: no Anticipated Length Of Stay (If known): tbd Current Decision-Making Capacity: awake, alert Advance Care Planning: no. Discussed importance of completing. She is interested and I will bring two [facility] for she and her yumi to work on while here. Current Coping/Education/Information Needs: no Current Functional Ability: dependant Functional Status Prior to Admission: completely independent with ADLs, working, driving, active Home Environment: Lives with yumi in their own home. Full flight of stairs to main living area. Then three stairs into bathroom. Has horses, three labradors. Social & Family Supports/Community Resources: Also has three sisters who are nurses and eager to advise, support. One sister works at [employer]. Her mother lives in the local area also. Behavioral Health History: no Substance Use/Abuse: none Other Pertinent/Service Specific Information: Patient will have FMLA and STD paperwork to have completed. Fiancee bringing that when he comes to visit today. Health/Prescription Coverage: Primary Insurance: CIGNA Secondary Insurance: N/A Prescription Coverage: CIGNA Preferred Pharmacy: none Other: none Primary Care Provider: Keiko Reddy MD [phone] Patient/Caregiver Goals of Treatment: Home when medically able. Potential Needs for Transition of Care: Rehab/SNF: patient anticipates she will need rehab/snf. Her preference [facility] be [facility]. Home Health: yes at some point DME: yes. She thinks her mother still has a commode, walker, shower chair she could borrow, but will check. Dialysis: no Community Resources: no Transportation: family Other: no Anticipated Barriers to Discharge/Special Considerations: none Assessment: Patient with busy active lifestyle, supporting family and fiancee. She is aware she mayneed rehab/SNF for a time, and is open to that. Plan: TBD. Await PT/OT evaluations and recommendations. I will see her again to assist with FMLA, STD and DPOAH paperwork. A member of the Care Management team will continue to monitor progress, follow for continuity of care and assist with transition of care planning. SHERI UPTON Pager: [phone] * Plan of Care - Jamar Wolf RN - 12/15/2017 4:24 AM EDT Problem: Patient Care Overview Goal: Plan of Care Review 12/14/17 0601 12/14/17 4790 Coping/Psychosocial Plan Of Care Reviewed With -- patient Plan of Care Review Progress no change -- OUTCOME EVALUATION NOTE: OUTCOME SUMMARY: Pt slept on and off. Pain relieved by 10mg Oxycodone. Good CSMT to RLE. PLAN MOVING FORWARD: Mobilize as tolerated, pain control INDIVIDUALIZED FALL PREVENTION INTERVENTIONS: Patient-specific fall risk factors per assessment: [current deficits]: Pain meds, impaired mobility Assistance [level of assistance required for transfers and ambulation]: 2 assist for bed mobility Supervision [direct monitoring required during toileting and ADLs]: independent Surveillance [continuous indirect monitoring]: Purposeful rounding Patient-specific fall prevention interventions for sensory deficits provided, if applicable: [X] No CPG GOAL OUTCOME EVALUATION: Goal: Individualization & Mutuality 12/14/17410 Mutuality/Individual Preferences What Anxieties, Fears or Concerns Do You Have About Your Health or Care? none What Questions Do You Have About Your Health or Care? when can I have pain meds? What Information Would Help Us Give You More Personalized Care? none Individualization Patient Specific Goals pain management Goal: Fall Prevention-Safe Patient Handling 12/14/1775112/14/17 1500 12/14/172299 Albarran Fall Risk History of Falling 0 -- -- Secondary Diagnosis 0 -- -- Ambulatory Aids 0 -- -- Intravenous Therapy/Heparin/Saline Lock 20 -- -- Gait/Transferring 0 -- -- Mental Status 0 -- -- Score 20 -- -- OTHER Albarran Fall Risk Low -- -- Restraint Interventions Safety Promotion/Fall Prevention -- -- fall prevention program maintained Positioning Body Position -- -- -- Activity Activity Type -- -- bedrest Activity Assistance Provided -- assistance, 2 people -- 12/15/17 0400 Albarran Fall Risk History of Falling -- Secondary Diagnosis -- Ambulatory Aids -- Intravenous Therapy/Heparin/Saline Lock -- Gait/Transferring -- Mental Status -- Score -- OTHER Albarran Fall Risk -- Restraint Interventions Safety Promotion/Fall Prevention -- Positioning Body Position supine, head elevated;lower extremity elevated, right;upper extremity elevated, right Activity Activity Type -- Activity Assistance Provided -- Goal: Infection Control 12/14/1775112/14/172299 Safety Interventions Isolation Precautions standard precautions maintained -- Infection Prevention barrier precautions utilized;environmental surveillance performed;rest/sleep promoted;single patient room provided -- Coping Strategies Supportive Measures -- active listening utilized Goal: Discharge Needs Assessment 12/14/17410 Discharge Needs Assessment Concerns To Be Addressed no discharge needs identified;denies needs/concerns at this time Readmission Within The Last 30 Days no previous admission in last 30 days * Op Note - Reinaldo Romero MD - 12/14/2017 4:06 PM EDT [facility] [place] Operative Note Patient Name: Daphne Pickard : [id number] MR#: [id number] Case Date: 12/14/2017 Surgeon: Surgeon(s) and Role: * Reinaldo Romero MD - Primary * Joyce Parra MD * Kimani Dobson MD Preoperative diagnosis: right tibial plateau fracture right distal radius fx left hip fx Postoperative diagnosis: right tibial plateau fracture right distal radius fx left hip fx Procedure(s) (LRB): @ORIF TIBIAL PLATEAU (PROXIMAL) UNICONDYLAR (WRVU 13.41) (Right) ORIF DISTAL RADIUS, 3 OR MORE FRAGMENTS (WRVU 14.38) (Right) MODIFIER VARIABLE ANGLE DISTAL RADIUS SYNTHES (Right) MODIFIER, 3.5 VA PROXIMAL TIBIAL PLATES, SYNTHES (Right) HIP INTRAOP RADIOLOGIC EXAMINATION, UNILATERAL, W PELVIS; 1 VIEW (WRVU 0.18) (Left) Anesthesia: General Estimated Blood Loss: 50 mL Specimens removed during surgery: None Drains: None Tourniquet time right leg 1 hour and 31 minutes at 250 mmHg. Right arm tourniquet time for the distal radius fracture 59 minutes at 250 mmHg Surgical Closure: Primary Closure - skin incision is completely closed without any wires, billy, drains or other devices Disposition: awakened from anesthesia, extubated and taken to the recovery room in a stable condition, having suffered no apparent untoward event. Condition: doing well without problems (Please see the Surgical Encounter Summary for any Implant and Specimen details pertinent to this patient.) HPI/Surgical Indications: Ms. Pickard is a 52-year-old female who presented to [facility] with signs symptoms and radiographic findings consistent with a left posterior wall acetabular fracture, right intra- articular comminuted distal radius fracture, right comminuted lateraltibial plateau split depression fracture. I was asked by my partner to assist in the operative careof this patient. I discussed treatment options with the patient prior to surgery. I discussed operative management and nonoperative management of all of her injuries. She elected to proceed with operative fixation of the right tibial plateau, operative fixation of the right distal radius, and examin ation under anesthesia of the left posterior wall acetabular fracture. I discussed risks including but not limited to: Bleeding, infection, damage to nerves and vessels, need for further surgery, malunion, nonunion, hardware failure, stiffness, wound healing problems, need for removal of hardware, p osttraumatic arthritis, deep vein thromboses, pulmonary emboli, heart attack, stroke, . She expressed understanding and wished to proceed and signed informed consent prior to the procedure. I discussed goals of the procedure including returning to as full function as possible and as quickly aspossible. Specifically for the distal radius I discussed that this could be managed nonoperatively especially if it were an isolated injury but given her likely need for crutch and assistive device use she elected to proceed with operative fixation to gain range of motion back as quickly as possible. Procedure Description: The patient was identified in the preoperative holding area where green walker river was placed on the correct operative right knee, right wrist, left hip. She was brought to the operating room where her identity was confirmed upon entering the room. She was transferred to the operating room table in supine position. All bony prominences were well-padded. She was induced with general anesthesia and intubated by the anesthesia team. Preoperative antibiotics 2 g of Ancef were given within half an hour of the incision. A timeout was held according to [facility] [place] [facility] protocol confirming thecorrect side site's and procedures. All agreed to proceed. We began with the right tibial plateau fr acture. A nonsterile tourniquet was placed high on the right thigh. The right lower extremity was prepped and draped in the usual sterile fashion. We exsanguinated the right lower extremity using an Esmarch bandage and inflated the tourniquet to 250 mmHg where it remained for an hour and 31 minutesduring the case. We carried out a boat race type incision laterally extending from just proximal tothe joint line down over Karolina's tubercle and just lateral to the tibial crest anteriorly. We carried this out using a #10 blade. Bleeding vessels were cauterized using Bovie electrocautery. We thenincised the anterior compartment muscle fascia as well as the iliotibial band and split the IT band elevating it off of tibia. The anterior compartment musculature was elevated off of tibia as well taking care to remain on bone without Jose elevator. We then performed a sub-meniscal arthrotomy to evaluate the meniscus and to directly visualize the joint surface. There is no evidence of lateral meniscal tear. We then elevated periosteum off the anterior aspect of the tibia just lateral to the patellar tendon. We identified the vertical fracture line. We used a Jose elevator to separate the fracture fragments creating diastases through which we could look at the reduction. We used a Jose to perform a reduction of the tibial plateau surface. The tibial plateau came together nicely. We used in traoperative fluoroscopy to confirm the reduction both on AP and lateral x-ray views. Satisfied with the reduction we then packed approximately 15 or 20 cc of cancellus allograft bone into the void in the proximal tibia. We then confirmed our reduction once again. We then made a stab incision over the medial aspect of the tibia and spread bluntly down to bone. We placed a pelvic reduction clamp across the tibia in order to help close down the diastases of the lateral plateau. We then placed theplate provisionally along the bone. We placed this utilizing K wires to hold it in place. We confirmed the reduction and the position of the hardware. We then drilled a lateral to medial cortical nonl ocking screw through the proximal hole of the plate in order to get compression across the fracturethat was vertical. We placed this after drilling with the appropriate drill. We did find that this closed the fracture down and left the screw slightly prominent medially but given the good purchase in bone we decided to leave this in place. We did note that she had soft bone stock in this area of her tibia. We then began with placement of more locking screws in the proximal tibia in a raft technique. We attempted to diverge these as well as possible. We took care to avoid penetrating the jointeither medially or laterally through the proximal tibia using intraoperative fluoroscopy. We drilled and placed screws through all of the proximal screw holes. We then placed a kickstand screw through 1 of the distal holes and we placed one cortical screw from lateral to medial through 1 of the distal holes in the plate. We were able to achieve 6 cortices distal to the distal extent of the fracture through the plate. We then confirmed position of all the hardware and the reduction. Satisfied with these we copiously irrigated the wound using normal saline. We closed the arthrotomy using Vicrylsutures going through the plate proximally and to the soft tissue surrounding this area. We then closed the IT band back together and reapproximated the fascia overlying the anterior compartment muscles. We then copiously irrigated once again. We used quarter percent bupivacaine and injected this into the soft tissues surrounding the wound using 10 cc. We then closed the wound in layered fashion using 0 Vicryl sutures, 2-0 Vicryl sutures, zuleyka for the skin. A Mepilex dressing was applied. The tourniquet was deflated. The patient's leg was then placed into a Bishnu brace locked in extension. Attention was then turned to the left posterior wall fracture. We removed all the drapes. We obtained an obturator oblique view of the left hemipelvis. We found there is diastases with the posterior wall fracture. We then performed an exam under anesthesia using both an obturator oblique as well asan AP view of the left hip and found no significant and obvious instability of this hip joint. We then turned our attention to the right distal radius fracture. Next The right upper extremity was then prepped and draped in the usual sterile fashion. A nonsterile tourniquet was placed high on the right arm. We made a longitudinal incision overlying the FCR tendon taking care to avoid crossing the proximal wrist crease. We carried out this incision after exsanguinated the limb using an Esmarch bandage as well as a Coban bandage. The tourniquet was inflated to 250 mmHg where it remained for 59 minutes during the case. We dissected down through the skin after making the incision taking care to cauterize all bleeding vessels. We used tenotomy scissors to dissect through the fascia of the FCR tendon overlying it. We identified the median nerve just medial to FPL and FCR. We took care to protect this during the case. We then bluntly dissected deep to the FCRtendon and encountered the quadratus muscle. We elevated this off the radial aspect of the distal radius using Bovie electrocautery and a wood handled elevator. We then encountered the fracture. We performed a reduction maneuver and under direct visualization identified that there was good keying in of fracture fragments. There was one butterfly fragment radially proximal to the radial styloid that keyed in well but did not fit into a screw hole in the plate that we eventually used and so we just left this without fixation. We confirmed the reduction using intraoperative fluoroscopy. Satisfied with the reduction we then provisionally placed a distal radius plate from the Synthes set on the volar aspect of the distal radius. We placed 2 olive wires to hold this into place and made one adjustment after confirming the position on fluoroscopy. There were 3 fragments off bone that were involved in the fracture. Satisfied with the position we then began with placement of distal locking screws. We filled for of the holes distally after drilling with the appropriate drill. We confirmed the position of the screws on fluoroscopy taking care to ensure that they did not penetrate the wrist joint. We then placed one screw that was cortical after drilling in the proximal portion of the oblonghole in order to create some compression across the fracture site. This achieved good bite. We filled in the proximal to holes of the plate with nonlocking screws after drilling. We then filled the remaining distal screws with locking 2.4 millimeter screws using the appropriate drill except for oneof the screw holes that we left open because it placed the screw directly in fracture site. We thenconfirmed the position of all of the hardware and the fracture and distal radius. Satisfied with the alignment of all of this we then began with closure. We copiously irrigated the wound. Quadratus was unable to be approximated using suture so we laid it down in anatomic position. We then closed subcutaneous skin layers using 2-0 Vicryl sutures and then Monocryl for the subcutaneous layer with Dermabond over this. The wound was then dressed using gauze, ABD pads and sterile labral and the patient was placed into a short arm cast that was bivalved. The tourniquet was then let down. We injectedbupivacaine without epinephrine quarter percent prior to finishing the dressing to help with postope rative pain control. All sponge needle and instrument counts were correct at the end of the case. Iwas present participating and scrubbed for all interval portions of the case. The patient was then taken to the postoperative care unit in stable condition. Implant Name Type Inv. Item Serial No. Medical Clinic Manager Lot No. LRB No. Used Action PLATE,VA-LCP,TIB,4H,RT,87MM ([id number]) - [id number] IMPLANTS PLATE,VA- LCP,TIB,4H,RT,87MM ([id number]) [employer], [employer]. - DEPUY SYNT Right 1 Implanted SCREW,CRTX,STAP,3.5X40MM ([id number]) - [id number] IMPLANTS SCREW,CRTX,STAP,3.5X40MM ([id number]) [employer], [employer]. - DEPUY SYNT Right 1 Implanted SCREW,OMER,ANG,LCK,3.5X65MM ([id number]) - [id number] IMPLANTS SCREW,OMER,ANG,LCK,3.5X65MM ([id number]) [employer] - DEPUY SYNT Right 3 Implanted SCREW,OMER,ANG,LCK,3.5X60MM ([id number]) - [id number] IMPLANTS SCREW,OMER,ANG,LCK,3.5X60MM ([id number]) [employer] - DEPUY SYNT Right 1 Implanted SCREW,OMER,ANG,LCK,3.5X46MM ([id number]) - [id number] IMPLANTS SCREW,OMER,ANG,LCK,3.5X46MM ([id number]) [employer] - DEPUY SYNT Right 1 Implanted SCREW,OMER,ANG,LCK,3.5X50MM ([id number]) - [id number] IMPLANTS SCREW,OMER,ANG,LCK,3.5X50MM ([id number]) [employer] - DEPUY SYNT Right 1 Implanted SCREW,OMER,ANG,LCK,3.5X56MM ([id number]) - [id number] IMPLANTS SCREW,OMER,ANG,LCK,3.5X56MM ([id number]) [employer] - DEPUY SYNT Right 1 Implanted SCREW,OMER,ANG,LCK,3.5X32MM ([id number]) - [id number] IMPLANTS SCREW,OMER,ANG,LCK,3.5X32MM ([id number]) [employer] - DEPUY SYNT Right 1 Implanted SCREW,CNCL,STAP,P-T,3.5X70MM ([id number]) - [id number] IMPLANTS SCREW,CNCL,STAP,P- T,3.5X70MM ([id number])[employer] - DEPUY SYNT Right 1 Implanted BONE,CRUSHED,CANCELLOUS,30CC ([id number]) (AUTOREQ) - [id number] IMPLANTS BONE,CRUSHED,CANCELLOUS,30CC([id number]) (AUTOREQ) [facility] Right 1 Implanted PLATE,VLRDSTL,LCP,6H,RT,2.4MM ([id number]) - [id number] IMPLANTS PLATE,VLRDSTL,LCP,6H,RT,2.4MM ([id number]) [employer] - DEPUY SYNT Right 1 Implanted PLATE,RDCTN,WIRTHRD TIP,1.25MM ([id number]) - [id number] IMPLANTS PLATE,RDCTN,WIRTHRD TIP,1.25MM ([id number]) [employer]PU[employer] SY[employer]ES [email or web address] - DEPUY SYNT Right 3 Implanted and Explanted SCREW,VA,LCK,STAR,2.4X20MM ([id number]) - [id number] IMPLANTS SCREW,VA,LCK,STAR,2.4X20MM ([id number]) [employer] - DEPUY SYNT Right 3 Implanted SCREW,VA,LCK,STAR,2.4X14MM ([id number]) - [id number] IMPLANTS SCREW,VA,LCK,STAR,2.4X14MM ([id number]) [employer] - DEPUY SYNT Right 1 Implanted SCREW,VA,LCK,STAR,2.4X18MM ([id number]) - [id number] IMPLANTS SCREW,VA,LCK,STAR,2.4X18MM ([id number]) [employer] - DEPUY SYNT Right 1 Implanted SCREW,CRTX,STAP,STAR,2.7X12MM ([id number]) - [id number] IMPLANTS SCREW,CRTX,STAP,STAR,2.7X12MM ([id number]) [employer] - DEPUY SYNT Right 3 Implanted Infection Bundle used? No Attestation: Case Date: 12/14/2017 I was present and I participated during the entire procedure (does not need to include opening and closing). Reinaldo Romero MD 12/14/2017 * Brief Op Note - Reinaldo Romero MD - 12/14/2017 1:38 PM EDT Brief Operative Note Patient Name: Daphne Pickard : [id number] MR#: [id number] Case Date: 12/14/2017 Surgeon: Surgeon(s) and Role: * Reinaldo Romero MD - Primary * Joyce Parra MD * Kimani Dobson MD Preoperative diagnosis: right tibial plateau fracture right distal radius fx left hip fx Postoperative diagnosis: right tibial plateau fracture right distal radius fx left hip fx Procedure(s) (LRB): @ORIF TIBIAL PLATEAU (PROXIMAL) UNICONDYLAR (WRVU 13.41) (Right) ORIF DISTAL RADIUS, 3 OR MORE FRAGMENTS (WRVU 14.38) (Right) MODIFIER VARIABLE ANGLE DISTAL RADIUS SYNTHES (Right) MODIFIER, 3.5 VA PROXIMAL TIBIAL PLATES, SYNTHES (Right) HIP INTRAOP RADIOLOGIC EXAMINATION, UNILATERAL, W PELVIS; 1 VIEW (WRVU 0.18) (Left) Anesthesia: General Findings: Right tibial plateau fx, L posterior wall acetabulum fx, Right distal radius fracture Complications: None Estimated Blood Loss: 50cc Specimens removed during surgery: None Fluids: Intraprocedure Crystalloid Total None PRBCs: none (See Anesthesia Record/Report for Other Blood Products) Urine Output: 475 mL Drains: None Disposition: awakened from anesthesia, extubated and taken to the recovery room in a stable condition, having suffered no apparent untoward event. Condition: doing well without problems (Please see the Surgical Encounter Summary for any Implant and Specimen details pertinent to this patient.) Infection Bundle used? N/A Attestation: Case Date: 12/14/2017 I was present and I participated during the entire procedure (does not need to include opening and closing). Reinaldo Romero MD 12/14/2017 * Plan of Care - Karin Hawkins RN - 12/14/2017 6:03 AM EDT Problem: Patient Care Overview Goal: Plan of Care Review Outcome: Ongoing (Interventions Implemented as Appropriate) 12/14/17 0601 Coping/Psychosocial Plan Of Care Reviewed With patient Plan of Care Review Progress no change OUTCOME EVALUATION NOTE: OUTCOME SUMMARY: Pt denies chest pain, SOB, and nausea. Pt reports n/t in R foot. Pt's pain is adequately managed with PRN pain meds (see MAR). No acute events. See doc flowsheet for full pt assessment. Call ann within reach. is at the bedside. VSS. Will continue to monitor. PLAN MOVING FORWARD: Pain management, OR today, mobilize, d/c planning INDIVIDUALIZED FALL PREVENTION INTERVENTIONS: Patient-specific fall risk factors per assessment: [current deficits]: Hospital environment, trauma, pain Assistance [level of assistance required for transfers and ambulation]: Bedrest, full spine precautions Supervision [direct monitoring required during toileting and ADLs]: Hands-on Surveillance [continuous indirect monitoring]: Masimo, hourly rounding Patient-specific fall prevention interventions for sensory deficits provided, if applicable: [X] N/A * Consult Note - DavyNir saunders Elvis - 12/14/2017 1:09 AM EDT Orthopaedic Surgery Consult Note Attending: Scott We are seeing Daphne Pickard at the request of Russell Lewis MD for the evaluation of right wrist, right leg, left hip injury Chief Complaint: right wrist, right leg, left hip pain History of Present Illness: Daphne Pickard is a 52 y.o. RHD female who fell from a horse this evening landing on the right side. She noted immediate right wrist, right leg, left hip pain. She was not able to ambulate following the injury She was taken to [facility] where imaging revealed right distal radius fracture, right tibial plateau fracture and left posterior wall acetabular fracture. She was then transferred to [facility] for further management. Patient denies numbness, tingling, weakness, head strike, LOC, or other injuries. Past Medical History: Patient Active Problem List Diagnosis Code ??? Trauma T14.90XA Past Surgical History: Past Surgical History: Procedure Laterality Date ??? PRO COLONOSCOPY, DIAGNOSTIC N/A 06/25/2017 COLONOSCOPY, DIAGNOSTIC performed by Kimani Rojas MD at [facility]COPY Allergies Allergen Reactions ??? Gabapentin (Bulk) No current facility-administered medications on file prior to encounter. Current Outpatient Prescriptions on File Prior to Encounter Medication Sig Dispense Refill ??? citalopram (CELEXA) 10 mg Tablet Take 10 mg by mouth daily. Family History: Negative for bleeding/clotting disorders or anesthetic complications. Social History: Social History Social History ??? Marital status: Single Spouse name: N/A ??? Number of children: N/A ??? Years of education: N/A Occupational History ??? Not on file. Social History Main Topics ??? Smoking status: Former Smoker Quit date: 06/25/2010 ??? Smokeless tobacco: Never Used ??? Alcohol use 1.2 oz/week 2 Glasses of wine per week ??? Drug use: Yes Special: Marijuana Comment: infrequent ??? Sexual activity: Not on file Other Topics Concern ??? Not on file Social History Narrative Review of Systems: As per HPI, otherwise negative Objective: Temp: -- Heart Rate: [93-99] Resp: [8-11] BP: (123-127)/(48-67) SpO2: [95 %] Heart Rate from SPO2: [88 bpm-96 bpm] Physical Exam General: awake/alert, responds to questions HEENT: normocephalic, atraumatic CVS: regular rate peripherally Pulm: non-labored breathing Skin: Intact Psych: Nl mood and affect Right Upper Extremity Exam: Ecchymosis, swelling, deformity at the wrist. No open wounds No effusion in shoulder / elbow TTP right shoulder. No TTP clavicle, humerus, elbow, hand Compartments soft. No crepitus Wrist ROM deferred. Pain with shoulder ROM. Painless range of motion of elbow / fingers Sensation intact to light touch in Ax/M/R/U/LABC distributions Motor intact shoulder abduction, elbow flexion/extension, editor dictionary, EPL, AIN, IO Brisk capillary refill distally 2+ radial pulse Left Upper Extremity Exam: No ecchymosis, erythema, or overlying skin changes. No gross deformity. No effusion in shoulder / elbow / wrist No TTP clavicle, shoulder, humerus, elbow, forearm, wrist, hand Compartments soft. No crepitus Painless range of motion of shoulder / elbow / wrist / fingers Sensation intact to light touch in Ax/M/R/U/LABC distributions Motor intact (5/5) shoulder abduction, elbow flexion/extension, wrist flexion/extension, editor dictionary, EPL,AIN, IO Brisk capillary refill distally 2+ radial pulse Right Lower Extremity Exam: Swelling and valgus deformity at knee. No open wounds No effusion in ankle No TTP pelvis, hip, femur, ankle, foot Compartments soft. No crepitus Hip / knee ROM deferred. ainless range of motion of ankle Sensation intact to light touch in Saphenous/Sural/LFC/Femoral/MP/LP/T/DP/SP distributions Motor intact (5/5) ankle flexion/extension, EHL/FHL/TA Brisk capillary refill distally 2+ DP/PT pulses Left Lower Extremity Exam: No ecchymosis, erythema, or overlying skin changes. No gross deformity. No effusion in knee / ankle TTP pelvis, hip, tibia. No TTP femur, knee, tib/fib, ankle, foot Compartments soft. No crepitus Hip / knee ROM deferred. Painless range of motion of ankle Sensation intact to light touch in Saphenous/Sural/LFC/Femoral/MP/LP/T/DP/SP distributions Motor intact (5/5) ankle flexion/extension, EHL/FHL/TA Brisk capillary refill distally 2+ DP/PT pulses Labs: Last wbc, hgb, hct plt Recent Labs 12/14/17 0000 WBC 11.4* HGB 12.2 HCT 35.0* Last 3 Coags Recent Labs 12/14/17 0000 PT 11.2 INR 1.0 PTT 24* Imaging: Xray right wrist (12/14/17): Comminuted intra-articular distal radius fracture Xray right tibia/fibula (12/14/17): Lateral split depression tibial plateau fracture Xray left tibia/fibula (12/14/17): No fractures / dislocations CT pelvis (12/14/17): Left minimally displaced posterior wall fracture, hip is reduced Procedures: Closed reduction and casting/splinting After a discussion pertaining to the risks and benefits of closed reduction and casting, the patient elected to proceed. Per the [facility] Bed Side Check List: the patient was identified with 2 identifiers, the proper procedure and laterality were confirmed, and I reviewed the patient's allergies. A hematoma block with 10cc of 1% lidocaine w/o epinephrine was administered. A reduction maneuver was performed and confirmed with mini c-arm fluoroscopy. A splint was applied. Patient tolerated the procedure well. Post-reduction imaging studies were obtained and found to be adequate. Assessment/Plan: 52 y.o. female who presents with a right distal radius fracture, right tibial plateau fracture and left posterior wall acetabular fracture. She has undergone reduction and splinting of the right wrist in the ED. Knee immobilizer to right knee. She would benefit from operative fixation of the right tibial plateau and right distal radius fractures. The left posterior wall fracture can likely be treated non-operatively but she would benefit from manipulation under anesthesia. - Activity: NWB in RUE / RLE / LLE - NPO for OR - Hold anticoagulation - Discuss with Dr. Mejias I have contacted the referring team and discussed our evaluation and recommendations as listed above. The orthopaedic service will continue to follow this patient. Thank you for the opportunity to assist in their evaluation and treatment. Please call the orthopaedic resident underwriting operations manager with any questions or concerns. ?? Nir Bhatti MD Orthopaedic Surgery Pager: [phone] documented in this encounter Plan of Treatment Upcoming Encounters Date Type Department Care Team (Late st Contact Info) Description 01/31/2024 9:15 AM EDT Appointment Hematology [place] [address] 01/31/2024 10:20 AM EDT Office Visit [place] [address] Rebecca Small MD [facility] [place] [address] 08/01/2024 11:30 AM EDT Office Visit Dermatology at [address] [phone] Phan Engle MD [facility] DR [place] [address] Scheduled Orders Name Type Priority Associated Diagnoses Orde r Schedule XR Chest AP and Pelvis AP Trauma (Generic) Imaging STAT Once PRN (for Ra diant use) for 1 Occurrences starting 12/13/2017 until 12/13/2017 documented as of this encounter Procedures Procedure Name Priority Date/Time Associated Diagnosis Comments XR PELVIS AND HIP 2 VIEWS LEFT Routine 01/04/2018 9:39 AM EDT XR KNEE AP & LAT RIGHT Routine 8 9:39 AM EDT XR WRIST 3 VIEWS RIGHT Routine 8 9:39 AM EDT HEMOGRAM Routine 12/22/2017 9:56 AM EDT DIFFERENTIAL, AUTOMATED Routine 12/23/19 18 9:56 AM EDT CBC (WITH DIFF) Routine 12/22/2017 9:56 AM EDT BASIC METABOLIC PANEL (NON-FASTING) Routine 12/22/2017 9:56 AM EDT HEMOGRAM Routine 12/21/2017 7:04 AM EDT BASIC METABOLIC PANEL (NON-FASTING) STAT 12/21/2017 7:04 AM EDT XR PELVIS MIN 3 VIEWS Routine 12/20/2017 1:34 PM EDT XR FLUORO NO RAD <1HR - OR USE Routine 12/20/2017 9:40 AM EDT ABORH RECHECK STATUS STAT 12/20/2017 8:08 AM EDT ABO/RH TYPING STAT 12/20/2017 8:08 AM EDT ANTIBODY SCREEN STAT 12/20/2017 8:08 AM EDT TYPE AND SCREEN ([facility]/CGP/ZAHIDA) STAT 12/20/2017 8:08 AM EDT MODIFIER PELVIC RECONSTRUCTION PLATE SYNTHES 12/20/2017 7:50 AM EDT Left posterior wall acetabulum fx MODIFIER LOCKING SMALL FRAGMENT SYNTHES 12/20/2017 7:50 AM EDT Left posterior wall acetabulum fx @OPEN TREATMENT, ACETABULAR FX (WRVU 25.41) 12/20/2017 7:50 AM EDT Left posterior wall acetabulum fx OPEN TREATMENT, ACETABULAR FX Routine 12/17/2017 7:22 AM EDT HEMOGRAM Routine 12/17/2017 6:55 AM EDT DIFFERENTIAL, AUTOMATED Routine 12/18/19 18 6:55 AM EDT CBC (WITH DIFF) Routine 12/17/2017 6:55 AM EDT BASIC METABOLIC PANEL (NON-FASTING) Routine 12/17/2017 6:55 AM EDT HEMOGRAM STAT 12/15/2017 8:22 AM EDT DIFFERENTIAL, AUTOMATED STAT 12/16/19 18 8:22 AM EDT CBC (WITH DIFF) STAT 12/15/2017 8:22 AM EDT MAGNESIUM Routine 12/15/2017 8:22 AM EDT BASIC METABOLIC PANEL (NON-FASTING) STAT 12/15/2017 8:22 AM EDT XR PELVIS MIN 3 VIEWS Routine 12/14/2017 3:35 PM EDT XR WRIST 3 VIEWS RIGHT Routine 8 3:34 PM EDT XR KNEE AP & LAT RIGHT Routine 8 3:33 PM EDT HIP INTRAOP RADIOLOGIC EXAMINATION, UNILATERAL, W PELVIS; 1 VIEW Routine 12/14/2017 3:14 PM EDT XR FLUORO NO RAD <1HR - OR USE Routine 12/14/2017 1:13 PM EDT XR FLUORO NO RAD <1HR - OR USE Routine 12/14/2017 12:20 PM EDT XR FLUORO NO RAD <1HR - OR USE Routine 12/14/2017 11:39 AM EDT HIP INTRAOP RADIOLOGIC EXAMINATION, UNILATERAL, W PELVIS; 1 VIEW (WRVU 0.18) 12/14/2017 9:38 AM EDT right tibial plateau fracture right distal radius fx left hip fx MODIFIER, 3.5 VA PROXIMAL TIBIAL PLATES, SYNTHES 12/14/2017 9:38 AM EDT right tibial plateau fracture right distal radius fx left hip fx MODIFIER VARIABLE ANGLE DISTAL RADIUS SYNTHES 12/14/2017 9:38 AM EDT right tibial plateau fracture right distal radius fx left hip fx ORIF DISTAL RADIUS, 3 OR MORE FRAGMENTS (WRVU 14.38) 12/14/2017 9:38 AM EDT right tibial plateau fracture right distal radius fx left hip fx @ORIF TIBIAL PLATEAU (PROXIMAL) UNICONDYLAR (WRVU 13.41) 12/14/2017 9:38 AM EDT right tibial plateau fracture right distal radius fx left hip fx CT KNEE WO CONTRAST RIGHT STAT 12/14/2017 9:17 AM EDT XR PELVIS MIN 3 VIEWS STAT 12/14/2017 8:44 AM EDT ORIF DISTAL RADIUS, 3 OR MORE FRAGMENTS Routine 12/14/2017 7:48 AM EDT ORIF TIBIAL PLATEAU (PROXIMAL) UNICONDYLAR Routine 12/14/2017 3:52 AM EDT XR FLUORO NO RAD <1HR - OR USE STAT 12/14/2017 3:32 AM EDT XR FOREARM RIGHT STAT 12/14/2017 3:21 AM EDT XR TIBIA FIBULA RIGHT STAT 12/14/2017 3:20 AM EDT XR SHOULDER RIGHT STAT 12/14/2017 3:2 0 AM EDT XR WRIST 2 VIEWS RIGHT STAT 8 2:28 AM EDT ABORH RECHECK STATUS STAT 12/14/2017 12:30 AM EDT ABO/RH TYPING STAT 12/14/2017 12:30 AM EDT ANTIBODY SCREEN STAT 12/14/2017 12:30 AM EDT TYPE AND SCREEN ([facility]/CGP/ZAHIDA) STAT 12/14/2017 12:30 AM EDT L-LACTATE2 WHOLE BLOOD Routine 8 12:15 AM EDT IMPLANTABLE DEVICES SCAN 12/14/2017 12:00 AM EDT FLAME CUTTING MACHINE OPERATOR SCAN 12/14/2017 12:00 AM EDT HEMOGRAM STAT 12/14/2017 12:00 AM EDT DIFFERENTIAL, AUTOMATED STAT 12/15/19 18 12:00 AM EDT GOLD TUBE HOLD STAT 12/14/2017 12:00 AM EDT APTT STAT 12/14/2017 12:00 AM EDT PROTHROMBIN TIME STAT 12/14/2017 12:0 0 AM EDT CBC (WITH DIFF) STAT 12/14/2017 12:00 AM EDT ETHANOL LEVEL STAT 12/14/2017 12:00 AM EDT BASIC METABOLIC PANEL (NON-FASTING) STAT 12/14/2017 12:00 AM EDT URINALYSIS MICROSCOPIC EXAM STAT 12/13/2017 11:55 PM EDT URINALYSIS WITH REFLEX CULTURE STAT 12/13/2017 11:55 PM EDT RAPID DRUG SCREEN, URINE (PRETTY REQUEST) STAT 12/13/2017 11:54 PM EDT RAPID DRUG SCREEN W/ CONFIRMATION, URINE STAT 12/13/2017 11:54 PM EDT REQUEST FOR 2ND READ CT HEAD AND SPINE STAT 12/13/2017 10:53 PM EDT REQUEST FOR 2ND READ CT CHEST ABDOMEN PELVIS STAT 12/13/2017 10:52 PM EDT REQUEST FOR 2ND READ CT SPINE STAT 12/13/2017 10:51 PM EDT REQUEST FOR 2ND READ DX KNEE STAT 12/13/2017 10:50 PM EDT REQUEST FOR 2ND READ DX WRIST STAT 12/13/2017 10:49 PM EDT FILM LIBRARY STORAGE ONLY CT SPINE STAT 12/13/2017 12:20 AM EDT FILM LIBRARY STORAGE ONLY CT CHEST ABDOMEN PELVIS STAT 12/13/2017 12:15 AM EDT FILM LIBRARY STORAGE ONLY DX KNEE STAT 12/13/2017 12:10 AM EDT FILM LIBRARY STORAGE ONLY DX WRIST STAT 12/13/2017 12:05 AM EDT FILM LIBRARY STORAGE ONLY CT HEAD AND SPINE STAT 12/13/2017 12:00 AM EDT MODIFIER PELVIC RECONSTRUCTION PLATE SYNTHES Left posterior wall acetabulum fx MODIFIER LARGE FRAGMENT SYSTEM SYNTHES Left posterior wall acetabulum fx MODIFIER SMALL FRAGMENT SYNTHES Left posterior wall acetabulum fx @OPEN TREATMENT, ACETABULAR FX (WRVU 25.41) Left posterior wall acetabulum fx documented in this encounter Results * XR [...] AM Reinaldo Romero MD IMG DX ORDERABLES * XR Knee 1-2 Views Right (Generic) (01/04/2018 9:39 AM EDT) Anatomical Region Laterality Modality Knee Right Digital Radiogra phy Impressions 01/04/2018 11:45 AM EDT Unchanged alignment of the uncomplicated cortical [id number] fixation of the tibial plateau fracture without [...] the depressed lateral tibial plateau fracture with orthodoxy of near-anatomic alignment. No radiographic evidence of [...] the depressed lateral tibial plateau fracture with orthodoxy ofnear-anatomic alignment. No radiographic evidence of hardware complication. The fracturelines remain visible on the AP view. Interval resolution of the postoperative soft tissue air. IMPRESSION Unchanged alignment of the uncomplicated cortical [id number] fixationof the tibial plateau fracture without radiographic evidence of hardware complication. I have personally reviewed the image(s) and the residents interpretationand agree with the findings, Anisa Briscoe at 01/04/2018 11:45 AM Reinaldo Romero MD IMG DX ORDERABLES * XR Wrist Complete Min 3 views [...] AM Reinaldo Romero MD IMG DX ORDERABLES * Differential, Automated (12/22/2017 9:56 AM EDT) Neutrophils % 57.1 % [facility] Neutr Abs (ANC) 3.99 1.70 - 6.10 x10(3)/[facility] Lymphocytes % 27.7 % [facility] Lymphocytes Abs 1.9 0.9 - 3.2 x10(3)/[facility] Monocytes % 13.5 % [facility] Monocyte Abs 0.9 0.3 - 0.9 x10(3)/[facility] Eosinophils % 0.9 % [facility] Eosinophils Abs 0.1 0.0 - 0.4 x10(3)/[facility] Basophils % 0.4 % [facility] Basophils Abs 0.0 0.0 - 0.1 x10(3)/[facility] Immature Gran % 0.40 % [facility] Comment: Immature granulocytes(IG's)percentage and absolute count will include metamyelocytes, myelocytes, and promyelocytes. Blood smears from CBCs yielding IG's will be scanned manually for concordance. If this scan disagrees with the automated IG or if promyelocytes are noted, a manual differential will be performed. Tammi Gran Abs 0.03 0.00 - 0.04 x10(3)/[facility] Blood specimen (specimen) 12/22/2017 9:56 AM EDT 12/22/2017 10:10 AM EDT Narrative Resulting Agency Comment Spec In Lab Vani Flores Monster PATIENT PORTAL REPRESENTATIVE HEMATOLOGY ORDERABL ES Performing Organization Address City/[facility]/ZIP Co de Phone Number [facility] [place] [address] * (ABNORMAL) Hemogram (12/22/2017 9:56 AM EDT) WBC 7.0 4.0 - 9.5 x10(3)/[facility] RBC 2.92(L) 4.00 - 5.21 x10(6)/[facility] Hemoglobin 9.1(L) 11.7 - 15.5 gm/dL [facility] Hematocrit 27.1(L) 35.7 - 45.8 % [facility] MCV 92.8 82.6 - 94.4 [facility] MCH 31.2 27.1 - 32.0 pg [facility] MCHC 33.6 31.7 - 35.0 gm/dL [facility] Platelets 309 145 - 357 x10(3)/[facility] RDWSD 38.9 37.0 - 46.0 [facility] RDWCV 11.5 11.5 - 14.1 % [facility] MPV 8.4 7.6 - 12.9 [facility] nRBC % Auto 0.0 % [facility] nRBC Abs Auto 0.000 0.000 - 0.000 x10(3)/[facility] Blood specimen (specimen) 12/22/2017 9:56 AM EDT 12/22/2017 10:10 AM EDT Narrative Resulting Agency Comment Spec In Lab Vani Flores Monster JOSÉ LUIS HEMATOLOGY ORDERABL ES [facility] [place] [address] * (ABNORMAL) Basic Metabolic Panel (non-fasting) (12/22/2017 9:56 AM EDT) Glucose Lvl 162 65 - 199 mg/dL [facility] Comment:Diabetes: >=200 mg/d L plus symptoms BUN 11 8 - 18 mg/dL [facility] Creatinine 0.73 0.70 - 1.20 mg/dL [facility] Sodium 135 135 - 145 mmol/L [facility] Potassium 4.0 3.5 - 5.0 mmol/L [facility] Comment: Please note: ??Patients with WBC >100,000 may have falsely elevated Potassium levels. ??For accurate Potassium quantification in these patients send serum separator tube (gold top) for subsequent determinations. ??Contact the Clinical Chemistry Laboratory if there are any questions. Chloride 97(L) 98 - 107 mmol/L [facility] CO2 25 22 - 31 mmol/L [facility] Anion Gap 13 5 - 15 mmol/L [facility] Calcium 8.7 8.5 - 10.5 mg/dL [facility] Estimated GFR 95 >=60 mL/min/1. 73 m?? [facility] Comment: The eGFR was calculated using the CKD-EPI equation. As with all creatinine based estimates of kidney function, eGFR values calculated with the CKD-EPI equation are not accurate in patients with acute kidney failure, extremes of body mass or the acutely ill. [email or web address]/[facility] [place]nkf eGFR 110 >=60 mL/min/1. 73 m?? [facility] Comment: The eGFR was calculated using the CKD-EPI equation. As with all creatinine based estimates of kidney function, eGFR values calculated with the CKD-EPI equation are not accurate in patients with acute kidney failure, extremes of body mass or the acutely ill. [email or web address] Blood specimen (specimen) 12/22/2017 9:56 AM EDT 12/22/2017 10:10 AM EDT Narrative Resulting Agency Comment Spec In Lab Vani Hook JOSÉ LUIS CHEMISTRY ORDERABLE S [facility] [place] [address] * (ABNORMAL) Basic Metabolic Panel (non-fasting) (12/21/2017 7:04 AM EDT) Glucose Lvl 90 65 - 199 mg/dL [facility] Comment:Diabetes: >=200 mg/d L plus symptoms BUN 15 8 - 18 mg/dL [facility] Creatinine 0.73 0.70 - 1.20 mg/dL [facility] Sodium 138 135 - 145 mmol/L [facility] Potassium 3.9 3.5 - 5.0 mmol/L [facility] Comment: Please note: ??Patients with WBC >100,000 may have falsely elevated Potassium levels. ??For accurate Potassium quantification in these patients send serum separator tube (gold top) for subsequent determinations. ??Contact the Clinical Chemistry Laboratory if there are any questions. Chloride 100 98 - 107 mmol/L [facility] CO2 25 22 - 31 mmol/L [facility] Anion Gap 13 5 - 15 mmol/L [facility] Calcium 8.4(L) 8.5 - 10.5 mg/dL [facility] Estimated GFR 95 >=60 mL/min/1. 73 m?? [facility] Comment: The eGFR was calculated using the CKD-EPI equation. As with all creatinine based estimates of kidney function, eGFR values calculated with the CKD-EPI equation are not accurate in patients with acute kidney failure, extremes of body mass or the acutely ill. http://[employer]/[facility] eGFR 110 >=60 mL/min/1. 73 m?? [facility] Comment: The eGFR was calculated using the CKD-EPI equation. As with all creatinine based estimates of kidney function, eGFR values calculated with the CKD-EPI equation are not accurate in patients with acute kidney failure, extremes of body mass or the acutely ill. http://[employer]/[facility] Blood specimen (specimen) 12/21/2017 7:04 AM EDT 12/21/2017 7:25 AM EDT Narrative Resulting Agency Comment Spec In Lab Reinaldo Romero MD CHEMISTRY ORDERABLES Performing Organization Address City/[facility] Co de Phone Number [facility] [place] [address] * (ABNORMAL) Hemogram (12/21/2017 7:04 AM EDT) WBC 6.8 4.0 - 9.5 x10(3)/[facility] RBC 2.75(L) 4.00 - 5.21 x10(6)/[facility] Hemoglobin 8.7(L) 11.7 - 15.5 gm/dL [facility] Hematocrit 25.6(L) 35.7 - 45.8 % [facility] MCV 93.1 82.6 - 94.4 [facility] MCH 31.6 27.1 - 32.0 pg [facility] MCHC 34.0 31.7 - 35.0 gm/dL [facility] Platelets 253 145 - 357 x10(3)/[facility] RDWSD 39.4 37.0 - 46.0 [facility] RDWCV 11.7 11.5 - 14.1 % [facility] MPV 8.7 7.6 - 12.9 [facility] nRBC % Auto 0.0 % [facility] nRBC Abs Auto 0.000 0.000 - 0.000 x10(3)/[facility] Blood specimen (specimen) 12/21/2017 7:04 AM EDT 12/21/2017 7:25 AM EDT Narrative Resulting Agency Comment Spec In Lab Reinaldo Romero MD HEMATOLOGY ORDERABLE S [place] [facility] [place] [address] * XR Pelvis Judet or In Out 3 views (12/20/2017 1:34 PM EDT) Anatomical Region Laterality Modality Pelvis N/A Digital Radiogra phy Impressions 12/20/2017 2:11 PM EDT IMPRESSION: 1. ??No evidence of complication following left hip ORIF. Narrative 12/20/2017 2:11 PM EDT EXAMINATION: XR PELVIS JUDET OR IN OUT 3 VIEWS CLINICAL HISTORY: s/p ORIF L acetabulum. ??Need AP pelvis and Judet views. Thanks! TECHNIQUE: AP pelvis, 2 oblique views of the pelvis COMPARISON: Pelvic radiographs 12/14/2017 FINDINGS: Patient is status post screw and plate fixation of a left acetabular fracture. No periarticular lucency. No displaced fracture. Appearance of the right hip is unchanged. Sclerotic change and marginal osteophyte formation seen in the SI joints are unchanged. Procedure Note Tor Tello MD - 12/20/2017 EXAMINATION: XR PELVIS JUDET OR IN OUT 3 VIEWS CLINICAL HISTORY: s/p ORIF L acetabulum. Need AP pelvis and Judet views. Thanks! TECHNIQUE: AP pelvis, 2 oblique views of the pelvis COMPARISON: Pelvic radiographs 12/14/2017 FINDINGS: Patient is status post screw and plate fixation of a left acetabularfracture. No periarticular lucency. No displaced fracture. Appearance of the right hip is unchanged. Sclerotic change and marginal osteophyte formation seen in the SI jointsare unchanged. IMPRESSION IMPRESSION: 1. No evidence of complication following left hip ORIF. Reinaldo Romero MD IMG DX ORDERABLES * XR Fluoro No Rad <1Hr - OR Use (12/20/2017 9:40 AM EDT) [facility] - 12/20/2017 9:41 AM EDT This order does not need a radiologist interpretation. ?? Tete Talamantes MD IMG FLUORO ORDERABLE S [place], [place] * ABORH Recheck Status (12/20/2017 8:08 AM EDT) ABORH Type Recheck Completed [facility] Blood specimen (specimen) 12/20/2017 8:08 AM EDT 12/20/2017 8:39 AM EDT Narrative Resulting Agency Comment Spec In Lab Joyce Parra MD BLOOD BANK LAB ORDER NITZA Performing Organization Address City/[facility]/ZIP Co de Phone Number [facility] [place] [address] * Antibody screen (12/20/2017 8:08 AM EDT) [facility] Ab Screen Interp Negative [facility] Expires at [id number] on: 12/23/2017 [facility] Blood specimen (specimen) 12/20/2017 8:08 AM EDT 12/20/2017 8:39 AM EDT Narrative Resulting Agency Comment Spec In Lab Joyce Parra MD BLOOD BANK LAB ORDER NITZA Performing Organization Address City/[facility]/ZIP Co de Phone Number [facility] [place] [address] * ABO/Rh Typing (12/20/2017 8:08 AM EDT) ABORH Type A Neg [facility] Blood specimen (specimen) 12/20/2017 8:08 AM EDT 12/20/2017 8:39 AM EDT Narrative Resulting Agency Comment Spec In Lab Joyce Parra MD BLOOD BANK LAB ORDER NITZA [facility] [place] [address] * Differential, Automated (12/17/2017 6:55 AM EDT) Neutrophils % 60.2 % [facility] Neutr Abs (ANC) 4.23 1.70 - 6.10 x10(3)/[facility] LABORATORY Lymphocytes % 30.2 % [facility] Lymphocytes Abs 2.1 0.9 - 3.2 x10(3)/[facility] LABORATORY Monocytes % 8.0 % [facility] Monocyte Abs 0.6 0.3 - 0.9 x10(3)/[facility] LABORATORY Eosinophils % 1.1 % [facility] Eosinophils Abs 0.1 0.0 - 0.4 x10(3)/[facility] LABORATORY Basophils % 0.4 % [facility] Basophils Abs 0.0 0.0 - 0.1 x10(3)/[facility] LABORATORY Immature Gran % 0.10 % [facility] Comment: Immature granulocytes(IG's)percentage and absolute count will include metamyelocytes, myelocytes, and promyelocytes. Blood smears from CBCs yielding IG's will be scanned manually for concordance. If this scan disagrees with the automated IG or if promyelocytes are noted, a manual differential will be performed. Tammi Gran Abs 0.01 0.00 - 0.04 x10(3)/[facility] LABORATORY Blood specimen (specimen) 12/17/2017 6:55 AM EDT 12/17/2017 7:04 AM EDT Narrative Resulting Agency Comment Spec In Lab Rajinder Gracia MD HEMATOLOGY OR DERABLES [facility] [place] [address] * (ABNORMAL) Hemogram (12/17/2017 6:55 AM EDT) Pathologist [facility] WBC 7.0 4.0 - 9.5 x10(3)/[facility] LABORATORY RBC 3.36(L) 4.00 - 5.21 x10(6)/[facility] LABORATORY Hemoglobin 10.9(L) 11.7 - 15.5 gm/dL [facility] Hematocrit 31.1(L) 35.7 - 45.8 % [facility] MCV 92.6 82.6 - 94.4 [facility] LABORATORY MCH 32.4(H) 27.1 - 32.0 pg [facility] MCHC 35.0 31.7 - 35.0 gm/dL [facility] Platelets 195 145 - 357 x10(3)/[facility] LABORATORY RDWSD 38.9 37.0 - 46.0 [facility] LABORATORY RDWCV 11.5 11.5 - 14.1 % [facility] MPV 9.0 7.6 - 12.9 [facility] LABORATORY nRBC % Auto 0.0 % [facility] nRBC Abs Auto 0.000 0.000 - 0.000 x10(3)/[facility] LABORATORY Blood specimen (specimen) 12/17/2017 6:55 AM EDT 12/17/2017 7:04 AM EDT Narrative Resulting Agency Comment Spec In Lab Rajinder Gracia MD HEMATOLOGY OR DERABLES Performing Organization Address City/State/[facility] Co de Phone Number [facility] [place] [address] * (ABNORMAL) Basic Metabolic Panel (non-fasting) (12/17/2017 6:55 AM EDT) Glucose Lvl 91 65 - 199 mg/dL [facility] Comment:Diabetes: >=200 mg/d L plus symptoms BUN 11 8 - 18 mg/dL [facility] Creatinine 0.63(L) 0.70 - 1.20 mg/dL [facility] Sodium 142 135 - 145 mmol/L [facility] Potassium 3.9 3.5 - 5.0 mmol/L [facility] Comment: Please note: ??Patients with WBC >100,000 may have falsely elevated Potassium levels. ??For accurate Potassium quantification in these patients send serum separator tube (gold top) for subsequent determinations. ??Contact the Clinical Chemistry Laboratory if there are any questions. Chloride 102 98 - 107 mmol/L [facility] CO2 26 22 - 31 mmol/L [facility] Anion Gap 14 5 - 15 mmol/L [facility] Calcium 9.0 8.5 - 10.5 mg/dL [facility] Estimated GFR 103 >=60 mL/min/1. 73 m?? [facility] Comment: The eGFR was calculated using the CKD-EPI equation. As with all creatinine based estimates of kidney function, eGFR values calculated with the CKD-EPI equation are not accurate in patients with acute kidney failure, extremes of body mass or the acutely ill. [email or web address]/Unidymnkdep [email or web address]/[facility] [place] eGFR 120 >=60 mL/min/1. 73 m?? [facility] Comment: The eGFR was calculated using the CKD-EPI equation. As with all creatinine based estimates of kidney function, eGFR values calculated with the CKD-EPI equation are not accurate in patients with acute kidney failure, extremes of body mass or the acutely ill. [email or web address]/Unidymnkdep [email or web address]/[facility] [place] Blood specimen (specimen) 12/17/2017 6:55 AM EDT 12/17/2017 7:04 AM EDT Narrative Resulting Agency Comment Spec In Lab Russell Lewis MD CHEMISTRY ORDERABLE S [facility] [place] [address] * (ABNORMAL) Differential, Automated (12/15/2017 8:22 AM EDT) Neutrophils % 67.1 % [facility] Neutr Abs (ANC) 5.44 1.70 - 6.10 x10(3)/[facility] Lymphocytes % 20.4 % [facility] Lymphocytes Abs 1.7 0.9 - 3.2 x10(3)/[facility] LABORATORY Monocytes % 12.2 % [facility] Monocyte Abs 1.0(H) 0.3 - 0.9 x10(3)/[facility] LABORATORY Eosinophils % 0.0 % [facility] Eosinophils Abs 0.0 0.0 - 0.4 x10(3)/[facility] LABORATORY Basophils % 0.1 % [facility] Basophils Abs 0.0 0.0 - 0.1 x10(3)/[facility] LABORATORY Immature Gran % 0.20 % [facility] Comment: Immature granulocytes(IG's)percentage and absolute count will include metamyelocytes, myelocytes, and promyelocytes. Blood smears from CBCs yielding IG's will be scanned manually for concordance. If this scan disagrees with the automated IG or if promyelocytes are noted, a manual differential will be performed. Tammi Gran Abs 0.02 0.00 - 0.04 x10(3)/[facility] LABORATORY Blood specimen (specimen) 12/15/2017 8:22 AM EDT 12/15/2017 8:32 AM EDT Narrative Resulting Agency Comment Spec In Lab Elver Huddleston MD HEMATOLOGY ORDERABLE S [facility] [place] [address] * (ABNORMAL) Hemogram (12/15/2017 8:22 AM EDT) WBC 8.1 4.0 - 9.5 x10(3)/[facility] LABORATORY RBC 3.21(L) 4.00 - 5.21 x10(6)/[facility] LABORATORY Hemoglobin 10.5(L) 11.7 - 15.5 gm/dL [facility] Hematocrit 29.6(L) 35.7 - 45.8 % [facility] MCV 92.2 82.6 - 94.4 [facility] LABORATORY MCH 32.7(H) 27.1 - 32.0 pg [facility] MCHC 35.5(H) 31.7 - 35.0 gm/dL [facility] Platelets 145 145 - 357 x10(3)/[facility] LABORATORY RDWSD 39.6 37.0 - 46.0 [facility] LABORATORY RDWCV 11.6 11.5 - 14.1 % [facility] MPV 8.7 7.6 - 12.9 [facility] LABORATORY nRBC % Auto 0.0 % [facility] nRBC Abs Auto 0.000 0.000 - 0.000 x10(3)/[facility] LABORATORY Blood specimen (specimen) 12/15/2017 8:22 AM EDT 12/15/2017 8:32 AM EDT Narrative Resulting Agency Comment Spec In Lab Elver Huddleston MD HEMATOLOGY ORDERABLE S Performing Organization Address City/[facility] Co de Phone Number [facility] [place] [address] * Magnesium (12/15/2017 8:22 AM EDT) [facility] Magnesium 0.85 0.69 - 1.07 mmol/L [facility] Blood specimen (specimen) 12/15/2017 8:22 AM EDT 12/15/2017 8:33 AM EDT Narrative Resulting Agency Comment Spec In Lab Priya Whitaker APRN CHEMISTRY ORDERABLES Performing Organization Address [facility] Co de Phone Number [facility] [place] [address] * (ABNORMAL) Basic Metabolic Panel (non-fasting) (12/15/2017 8:22 AM EDT) Pathologist [facility] Glucose Lvl 102 65 - 199 mg/dL [facility] Comment:Diabetes: >=200 mg/d L plus symptoms BUN 9 8 - 18 mg/dL [facility] Creatinine 0.83 0.70 - 1.20 mg/dL [facility] Sodium 143 135 - 145 mmol/L [facility] Potassium 3.8 3.5 - 5.0 mmol/L [facility] Comment: Please note: ??Patients with WBC >100,000 may have falsely elevated Potassium levels. ??For accurate Potassium quantification in these patients send serum separator tube (gold top) for subsequent determinations. ??Contact the Clinical Chemistry Laboratory if there are any questions. Chloride 103 98 - 107 mmol/L [facility] CO2 25 22 - 31 mmol/L [facility] Anion Gap 15 5 - 15 mmol/L [facility] Calcium 8.4(L) 8.5 - 10.5 mg/dL [facility] Estimated GFR 81 >=60 mL/min/1. 73 m?? [facility] Comment: The eGFR was calculated using the CKD-EPI equation. As with all creatinine based estimates of kidney function, eGFR values calculated with the CKD-EPI equation are not accurate in patients with acute kidney failure, extremes of body mass or the acutely ill. http://[employer]fit/Unidymnkdep http://Retrofit/[facility] eGFR 94 >=60 mL/min/1. 73 m?? [facility] Comment: The eGFR was calculated using the CKD-EPI equation. As with all creatinine based estimates of kidney function, eGFR values calculated with the CKD-EPI equation are not accurate in patients with acute kidney failure, extremes of body mass or the acutely ill. http://[employer]/Unidymnkdep http://[employer]fit/[facility] [place] Blood specimen (specimen) 12/15/2017 8:22 AM EDT 12/15/2017 8:32 AM EDT Narrative Resulting Agency Comment Spec In Lab Russell Lewis MD CHEMISTRY ORDERABLE S [facility] [place] [address] * XR Pelvis Judet or In Out 3 views (12/14/2017 3:35 PM EDT) Anatomical Region Laterality Modality Pelvis N/A Digital Radiogra phy Impressions 12/14/2017 5:03 PM EDT Minimally displaced left posterior acetabular wall fracture. Narrative 12/14/2017 5:03 PM EDT EXAMINATION: XR PELVIS JUDET OR IN OUT 3 VIEWS CLINICAL HISTORY: left posterior wall acetabular fracture, eval alignment., NO AP NECESSARY, only judet views x 2 (obturator and iliac obliques) TECHNIQUE: 3 views COMPARISON: CT scan from December 13, 2017 FINDINGS: Unchanged minimally displaced left posterior acetabular wall fracture. Marginal osteophytes in bilateral hips are unchanged. Both hip joint spaces are relatively preserved. SI joints: Normal. Procedure Note Nayely Hernández MD - 12/14/2017 EXAMINATION: XR PELVIS JUDET OR IN OUT 3 VIEWS CLINICAL HISTORY: left posterior wall acetabular fracture, evalalignment., NO AP NECESSARY, only judet views x 2 (obturator and iliac obliques) TECHNIQUE: 3 views COMPARISON: CT scan from December 13, 2017 FINDINGS: Unchanged minimally displaced left posterior acetabular wall fracture. Marginal osteophytes in bilateral hips are unchanged. Both hip jointspaces are relatively preserved. SI joints: Normal. IMPRESSION Minimally displaced left posterior acetabular wall fracture. Russell Lewis MD IMG DX ORDERABLES * XR Wrist Complete Min 3 views Right (Generic) (12/14/2017 3:34 PM EDT) Anatomical Region Laterality Modality Right Digital Radiogra phy Impressions 12/14/2017 4:29 PM EDT No evidence of complication status post ORIF distal radius fracture Narrative 12/14/2017 4:29 PM EDT EXAMINATION: XR WRIST COMPLETE MIN 3 VIEWS RIGHT (GENERIC) CLINICAL HISTORY: Right distal radius fx, s/p ORIF. ??Thanks! TECHNIQUE: 3 views right breast COMPARISON: 12/14/2017 FINDINGS: Distal radius fracture extending to the articular surface is now traversed by fixation plate and screws and visualized through overlying casting material that obscures bony detail. Alignment is near-anatomic. There is question minimal displacement the distal fragment identified only in the frontal projection. Procedure Note Elvia Kearns MD - 12/14/2017 EXAMINATION: XR WRIST COMPLETE MIN 3 VIEWS RIGHT (GENERIC) CLINICAL HISTORY: Right distal radius fx, s/p ORIF. Thanks! TECHNIQUE: 3 views right breast COMPARISON: 12/14/2017 FINDINGS: Distal radius fracture extending to the articular surface is now traversedby fixation plate and screws and visualized through overlying castingmaterial that obscures bony detail. Alignment is near-anatomic. There is questionminimal displacement the distal fragment identified only in the frontalprojection. IMPRESSION No evidence of complication status post ORIF distal radius fracture 4:29 PM Russell Lewis MD IMG DX ORDERABLES * XR Knee 1-2 Views Right (Generic) (12/14/2017 3:33 PM EDT) Anatomical Region Laterality Modality Knee Right Digital Radiogra phy Impressions 12/14/2017 3:54 PM EDT Status post ORIF right lateral tibial plateau fracture without evidence of complication. Lateral tibial plateau depression has been corrected and alignment is now near anatomic. Narrative 12/14/2017 3:54 PM EDT EXAMINATION: XR KNEE 1-2 VIEWS RIGHT (GENERIC) CLINICAL HISTORY: Right tibial plateau fx, s/p ORIF. ??Thanks! TECHNIQUE: Frontal and lateral views of the right knee COMPARISON: CT of the right knee 12/14/2017 and plain films from the same day FINDINGS: Status post ORIF right lateral tibial plateau with plate and screw fixation. Alignment is now anatomic. The lateral tibial plateau is no longer depressed. The fracture line remains visible, though is largely obscured by the adjacent metallic hardware. There is lateral subcutaneous soft tissue swelling, intra-articular gas, and overlying skin zuleyka, expected postoperative findings. Procedure Note Jeremy Covington MD - 12/14/2017 EXAMINATION: XR KNEE 1-2 VIEWS RIGHT (GENERIC) CLINICAL HISTORY: Right tibial plateau fx, s/p ORIF. Thanks! TECHNIQUE: Frontal and lateral views of the right knee COMPARISON: CT of the right knee 12/14/2017 and plain films from the same day FINDINGS: Status post ORIF right lateral tibial plateau with plate and screwfixation. Alignment is now anatomic. The lateral tibial plateau is no longerdepressed. The fracture line remains visible, though is largely obscured by theadjacent metallic hardware. There is lateral subcutaneous soft tissue swelling, intra-articular gas, and overlying skin zuleyka, expected postoperative findings. IMPRESSION Status post ORIF right lateral tibial plateau fracture without evidenceof complication. Lateral tibial plateau depression has been corrected andalignment is now near anatomic. Russell Lewis MD [facility] DX ORDERABLES * XR Fluoro No Rad <1Hr - OR Use (12/14/2017 1:13 PM EDT) Narrative [facility] - 12/14/2017 1:13 PM EDT This order does not need a radiologist interpretation. ?? Reinaldo Romero MD [facility] FLUORO ORDERABLE S Performing Organization Address [facility] de Phone Number [place], [place] * XR Fluoro No Rad <1Hr - OR Use (12/14/2017 12:20 PM EDT) Narrative [facility] - 12/14/2017 1:12 PM EDT This order does not need a radiologist interpretation. ?? Reinaldo Romero MD [facility] FLUORO ORDERABLE S Performing Organization Address [facility] de Phone Number [place], [place] * XR Fluoro No Rad <1Hr - OR Use (12/14/2017 11:39 AM EDT) Narrative RAD - 12/14/2017 11:39 AM EDT This order does not need a radiologist interpretation. ?? Reinaldo Romero MD IMG FLUORO ORDERABLE S [place], [place] * CT Knee wo Contrast Right (Generic) (12/14/2017 9:17 AM EDT) Anatomical Region Laterality Modality Knee Right Computed Tomogra phy Impressions 12/14/2017 9:26 AM EDT Schatzker II tibial plateau fracture with vertical fracture line extending to the lateral tibial plateau and intercondylar tibial eminence. No medial tibial plateau involvement. I measure the lateral tibial plateau depression at 1.1 cm on series 601 image 36. Narrative 12/14/2017 9:26 AM EDT EXAMINATION: CT KNEE WO CONTRAST RIGHT (GENERIC) CLINICAL HISTORY: Fracture, for operative planning TECHNIQUE: CT scan of the right knee without intravenous contrast. 3D recons were performed on a separate workstation and saved to the PACS. COMPARISON: 12/13/17 right knee radiographs; 12/14/17 right tibia/fibula radiographs FINDINGS: Comminuted tibial plateau fracture with vertical fracture line extending to the lateral tibial plateau and intercondylar tibial eminence. No medial tibial plateau involvement. I measure the lateral tibial plateau depression at 1.1 cm on series 601 image 36. Lipohemarthrosis. Procedure Note Anisa Briscoe MD - 12/14/2017 EXAMINATION: CT KNEE WO CONTRAST RIGHT (GENERIC) CLINICAL HISTORY: Fracture, for operative planning TECHNIQUE: CT scan of the right knee without intravenous contrast. 3D recons wereperformed on a separate workstation and saved to the PACS. COMPARISON: 12/13/17 right knee radiographs; 12/14/17 right tibia/fibula radiographs FINDINGS: Comminuted tibial plateau fracture with vertical fracture line extendingto the lateral tibial plateau and intercondylar tibial eminence. No medialtibial plateau involvement. I measure the lateral tibial plateau depression at1.1 cm on series 601 image 36. Lipohemarthrosis. IMPRESSION Schatzker II tibial plateau fracture with vertical fracture line extendingto the lateral tibial plateau and intercondylar tibial eminence. No medialtibial plateau involvement. I measure the lateral tibial plateau depression at1.1 cm on series 601 image 36. Russell Lewis MD IMG CT ORDERABLES * XR Pelvis Judet or In Out 3 views (12/14/2017 8:44 AM EDT) Anatomical Region Laterality Modality Pelvis N/A Digital Radiogra phy Impressions 12/14/2017 9:01 AM EDT Nondisplaced left posterior acetabular wall fracture. I have personally reviewed the image(s) and the residents interpretation and agree with the findings, Nayely Hernández at 12/14/2017 9:01 AM Narrative 12/14/2017 9:01 AM EDT EXAMINATION: XR PELVIS JUDET OR IN OUT 3 VIEWS CLINICAL HISTORY: Fall from horse. Posterior left acetabular wall fracture. AP pelvis and Judet views for pre-op planning TECHNIQUE: AP, inlet and outlet views of the pelvis. COMPARISON: CT of the chest, abdomen and pelvis 12/13/2017. FINDINGS: There is a subtle lucency which projects over the posterior left acetabular wall, corresponding to the nondisplaced posterior left acetabular wall fracture which is better characterized on the prior CT. No additional fractures of the pelvis or proximal femurs are identified. No dislocation. The sacroiliac joints are normal. There is mild bilateral hip osteoarthropathy characterized by small marginal osteophytes. No hip joint space narrowing. Procedure Note Nayely Hernández MD - 12/14/2017 EXAMINATION: XR PELVIS JUDET OR IN OUT 3 VIEWS CLINICAL HISTORY: Fall from horse. Posterior left acetabular wallfracture. AP pelvis and Judet views for pre-op planning TECHNIQUE: AP, inlet and outlet views of the pelvis. COMPARISON: CT of the chest, abdomen and pelvis 12/13/2017. FINDINGS: There is a subtle lucency which projects over the posterior leftacetabular wall, corresponding to the nondisplaced posterior left acetabular wallfracture which is better characterized on the prior CT. No additional fractures ofthe pelvis or proximal femurs are identified. No dislocation. The sacroiliacjoints are normal. There is mild bilateral hip osteoarthropathy characterized bysmall marginal osteophytes. No hip joint space narrowing. IMPRESSION Nondisplaced left posterior acetabular wall fracture. I have personally reviewed the image(s) and the residents interpretationand agree with the findings, Nayely Hernández at 12/14/2017 9:01 AM Russell Lewis MD IMG DX ORDERABLES * XR Fluoro No Rad <1Hr - OR Use (12/14/2017 3:32 AM EDT) Narrative RAD - 12/14/2017 3:32 AM EDT This order does not need a radiologist interpretation. ?? Russell SNEED FLUORO ORDERABL ES Performing Organization Address City/State/[facility] Co de Phone Number [place], [place] * XR Forearm Right (Generic) (12/14/2017 3:21 AM EDT) Anatomical Region Laterality Modality Forearm Right Digital Radiogra phy Impressions 12/14/2017 3:46 AM EDT FINDINGS/IMPRESSION: Cast material obscures osseous and soft tissue detail. Distal radial fracture has been previously described. Question mild irregularity at the proximal radial head/neck versus artifact; correlate with history and regional physical examination. Narrative 12/14/2017 3:46 AM EDT EXAMINATION: XR FOREARM RIGHT (GENERIC) CLINICAL HISTORY: evaluate entire forearm TECHNIQUE: 3 views COMPARISON: None Procedure Note Jhonatan Napier MD - 12/14/2017 EXAMINATION: XR FOREARM RIGHT (GENERIC) CLINICAL HISTORY: evaluate entire forearm TECHNIQUE: 3 views COMPARISON: None IMPRESSION FINDINGS/IMPRESSION: Cast material obscures osseous and soft tissue detail. Distal radial fracture has been previously described. Question mild irregularity at the proximal radial head/neck versusartifact; correlate with history and regional physical examination. Russell Lewis MD [facility] DX ORDERABLES * XR Tibia Fibula Right (Generic) (12/14/2017 3:20 AM EDT) Anatomical Region Laterality Modality Right Digital Radiogra phy Narrative 12/14/2017 3:44 AM EDT EXAMINATION: XR TIBIA FIBULA RIGHT (GENERIC) CLINICAL HISTORY: right tibial plateau, eval entire tib fib TECHNIQUE: Frontal and lateral COMPARISON: Knee radiographs December 13, 2017 FINDINGS/IMPRESSION Proximal tibial fracture described on comparison radiographs. No other fracture identified. Procedure Note Jhonatan Napier MD - 12/14/2017 EXAMINATION: XR TIBIA FIBULA RIGHT (GENERIC) CLINICAL HISTORY: right tibial plateau, eval entire tib fib TECHNIQUE: Frontal and lateral COMPARISON: Knee radiographs December 13, 2017 FINDINGS/IMPRESSION Proximal tibial fracture described on comparison radiographs. No other fracture identified. Russell Lewis MD [facility] DX ORDERABLES * XR Shoulder Right (Generic) (12/14/2017 3:20 AM EDT) Anatomical Region Laterality Modality Shoulder Right Digital Radiogra phy Impressions 12/14/2017 3:48 AM EDT FINDINGS/IMPRESSION: No acute fracture or dislocation identified. Narrative 12/14/2017 3:48 AM EDT EXAMINATION: XR SHOULDER RIGHT (GENERIC) CLINICAL HISTORY: right shoulder pain s/p fall off horse TECHNIQUE: 4 views COMPARISON: None Procedure Note Jhonatan Napier MD - 12/14/2017 EXAMINATION: XR SHOULDER RIGHT (GENERIC) CLINICAL HISTORY: right shoulder pain s/p fall off horse TECHNIQUE: 4 views COMPARISON: None IMPRESSION FINDINGS/IMPRESSION: No acute fracture or dislocation identified. Russell Lewis MD IMG DX ORDERABLES * XR Wrist 2 views Right (12/14/2017 2:28 AM EDT) Anatomical Region Laterality Modality Hand, Wrist Right Digital Radiogra phy Impressions 12/14/2017 3:18 AM EDT FINDINGS/IMPRESSION: Cast material obscures osseous and soft tissue detail, with improved now near-anatomic alignment of the previously described distal radial fracture. Preliminary report signed by: Ninfa Mcpherson at 12/14/2017 2:48 AM I have personally reviewed the image(s) and the residents interpretation and agree with the findings, Jhonatan Napier at 12/14/2017 3:18 AM Narrative 12/14/2017 3:18 AM EDT EXAMINATION: XR WRIST 2 VIEWS RIGHT CLINICAL HISTORY: s/p reduction DRF TECHNIQUE: PA and crosstable lateral views of the right wrist COMPARISON: Right wrist radiographs dated 12/13/2017 Procedure Note Jhonatan Napier MD - 12/14/2017 EXAMINATION: XR WRIST 2 VIEWS RIGHT CLINICAL HISTORY: s/p reduction DRF TECHNIQUE: PA and crosstable lateral views of the right wrist COMPARISON: Right wrist radiographs dated 12/13/2017 IMPRESSION FINDINGS/IMPRESSION: Cast material obscures osseous and soft tissue detail, with improved now near-anatomic alignment of the previously described distal radialfracture. Preliminary report signed by: Ninfa Mcpherson at 12/14/2017 2:48 AM I have personally reviewed the image(s) and the residents interpretationand agree with the findings, Jhonatan Napier at 12/14/2017 3:18 AM Russell Lewis MD IMG DX ORDERABLES * ABORH Recheck Status (12/14/2017 12:30 AM EDT) ABORH Type Recheck Completed [facility] Blood specimen (specimen) 12/14/2017 12:30 AM EDT 12/14/2017 12:30 AM EDT Narrative Resulting Agency Comment Spec In Lab Russell Lewis MD BLOOD BANK LAB ORDE LAUREANO Performing Organization Address City/[facility]/ZIP Co de Phone Number [facility] [place] [address] * Antibody screen (12/14/2017 12:30 AM EDT) Pathologist [facility] Ab Screen Interp Negative [facility] Expires at [id number] on: 12/17/2017 [facility] Blood specimen (specimen) 12/14/2017 12:30 AM EDT 12/14/2017 12:30 AM EDT Narrative Resulting Agency Comment Spec In Lab Russell Lewis MD BLOOD BANK LAB ORDUbaldo TINSLEY Performing Organization Address City/[facility]/ZIP Co de Phone Number [facility] [place] [address] * ABO/Rh Typing (12/14/2017 12:30 AM EDT) ABORH Type A Neg [facility] Blood specimen (specimen) 12/14/2017 12:30 AM EDT 12/14/2017 12:30 AM EDT Narrative Resulting Agency Comment Spec In Lab Russell Lewis MD BLOOD BANK LAB ORDE LAUREANO [facility] [place] [address] * L-Lactate2 Whole Blood (12/14/2017 12:15 AM EDT) [facility] Lactate WB 1.7 0.5 - 2.2 mmol/L [facility] Blood specimen (specimen) 12/14/2017 12:15 AM EDT 12/14/2017 12:15 AM EDT Russell Lewis MD CHEMISTRY ORDERABLE S Performing Organization Address City/[facility]/ZIP Co de Phone Number [facility] [place] [address] * SCAN DOC: IMPLANTABLE DEVICES (12/14/2017 12:00 AM EDT) Narrative 12/14/2017 12:00 AM EDT Ordered by an unspecified provider. Scanning Provider MEDIA MGR SCAN EXT O RDR/RSLT * Gold Tube HOLD (12/14/2017 12:00 AM EDT) [facility] Gold Hold Sample in lab. [facility] Blood specimen (specimen) Venous Draw / Unknown 12/14/2017 12/14/2017 12:14 AM EDT Chinedu Ortega MD CHEMISTRY ORDERABLES Performing Organization Address [facility]/ZIP Co de Phone Number [facility] [place] [address] * (ABNORMAL) Differential, Automated (12/14/2017 12:00 AM EDT) [facility] Neutrophils % 83.9 % [facility] Neutr Abs (ANC) 9.56(H) 1.70 - 6.10 x10(3)/mc L [facility] Lymphocytes % 9.8 % [facility] Lymphocytes Abs 1.1 0.9 - 3.2 x10(3)/mc L [facility] Monocytes % 5.8 % [facility] Monocyte Abs 0.7 0.3 - 0.9 x10(3)/mc L [facility] Eosinophils % 0.0 % [facility] Eosinophils Abs 0.0 0.0 - 0.4 x10(3)/[facility] Basophils % 0.2 % [facility] Basophils Abs 0.0 0.0 - 0.1 x10(3)/[facility] Immature Gran % 0.30 % [facility] Comment: Immature granulocytes(IG's)percentage and absolute count will include metamyelocytes, myelocytes, and promyelocytes. Blood smears from CBCs yielding IG's will be scanned manually for concordance. If this scan disagrees with the automated IG or if promyelocytes are noted, a manual differential will be performed. Tammi Gran Abs 0.03 0.00 - 0.04 x10(3)/[facility] Blood specimen (specimen) 12/14/2017 12/14/2017 12:07 AM EDT Narrative Resulting Agency Comment Spec In Lab Russell Lewis MD HEMATOLOGY ORDERABL ES [facility] [place] [address] * (ABNORMAL) Hemogram (12/14/2017 12:00 AM EDT) WBC 11.4(H) 4.0 - 9.5 x10(3)/[facility] LABORATORY RBC 3.78(L) 4.00 - 5.21 x10(6)/[facility]ATORY Hemoglobin 12.2 11.7 - 15.5 gm/dL [facility] Hematocrit 35.0(L) 35.7 - 45.8 % [facility] MCV 92.6 82.6 - 94.4 fL [facility] MCH 32.3(H) 27.1 - 32.0 pg [facility] MCHC 34.9 31.7 - 35.0 gm/dL [facility] Platelets 195 145 - 357 x10(3)/[facility] RDWSD 40.1 37.0 - 46.0 fL [facility] RDWCV 11.9 11.5 - 14.1 % [facility] MPV 8.5 7.6 - 12.9 fL [facility] nRBC % Auto 0.0 % [facility] nRBC Abs Auto 0.000 0.000 - 0.000 x10(3)/mcL [facility] Blood specimen (specimen) 12/14/2017 12/14/2017 12:07 AM EDT Narrative Resulting Agency Comment Spec In Lab Russell Lewis MD HEMATOLOGY ORDERABL ES Performing Organization Address [facility] de Phone Number [facility] [place] [address] * Ethanol Level (12/14/2017 12:00 AM EDT) Pathologist [facility] Ethanol Lvl <100 <=99 mg/L [facility] Comment: Greater than 800 mg/L (0.08%) should be considered intoxicated. 3400 to 4500 mg/L (0.34 - 0.45%) is considered severe intoxication. Greater than 5500 mg/L (0.55%) is usually fatal. Blood specimen (specimen) 12/14/2017 12/14/2017 12:07 AM EDT Narrative Resulting Agency Comment Spec In Lab Russell Lewis MD CHEMISTRY ORDERABLE S Performing Organization Address [facility] Co de Phone Number [facility] [place] [address] * (ABNORMAL) APTT (12/14/2017 12:00 AM EDT) PTT 24(L) 25 - 37 sec [facility] Comment: The PTT is NOT appropriate for heparin monitoring. Use the Anti-Xa level for heparin monitoring (HEP UFH) or LMWH monitoring (HEP LMW). A PTT less than 37 seconds generally indicates adequate hemostasis. Blood specimen (specimen) 12/14/2017 12/14/2017 12:07 AM EDT Narrative Resulting Agency Comment Spec In Lab Russell Lewis MD HEMATOLOGY ORDERABL ES Performing Organization Address [facility] de Phone Number [facility] [place] [address] * Prothrombin Time (12/14/2017 12:00 AM EDT) PT 11.2 9.4 - 12.5 sec [facility] INR 1.0 [facility] Comment: An INR <2.0 indicates adequate procoagulant activity for hemostasis in most patients without underlying bleeding disorders, though the INR may not adequately reflect hemostatic capacity in patients with liver disease and synthetic impairment. The recommended target INR range for therapeutic anticoagulation is 2.0 ? 3.0 for most applications, though lower and higher ranges may be appropriate depending on clinical circumstances. Blood specimen (specimen) 12/14/2017 12/14/2017 12:07 AM EDT Narrative Resulting Agency Comment Spec In Lab Russell Lewis MD HEMATOLOGY ORDERABL ES Performing Organization Address [facility] Co de Phone Number [facility] [place] [address] * (ABNORMAL) Basic Metabolic Panel (non-fasting) (12/14/2017 12:00 AM EDT) Glucose Lvl 124 65 - 199 mg/dL [facility] Comment:Diabetes: >=200 mg/d L plus symptoms BUN 13 8 - 18 mg/dL [facility] Creatinine 0.92 0.70 - 1.20 mg/dL [facility] Sodium 140 135 - 145 mmol/L [facility] Potassium 4.6 3.5 - 5.0 mmol/L [facility] Comment: Please note: ??Patients with WBC >100,000 may have falsely elevated Potassium levels. ??For accurate Potassium quantification in these patients send serum separator tube (gold top) for subsequent determinations. ??Contact the Clinical Chemistry Laboratory if there are any questions. Chloride 103 98 - 107 mmol/L [facility] CO2 26 22 - 31 mmol/L [facility] Anion Gap 11 5 - 15 mmol/L [facility] Calcium 8.4(L) 8.5 - 10.5 mg/dL [facility] Estimated GFR 72 >=60 mL/min/1. 73 m?? [facility] Comment: The eGFR was calculated using the CKD-EPI equation. As with all creatinine based estimates of kidney function, eGFR values calculated with the CKD-EPI equation are not accurate in patients with acute kidney failure, extremes of body mass or the acutely ill. http://[employer]/Unidymnkdep http://[employer]/Unidymnkf eGFR 83 >=60 mL/min/1. 73 m?? [facility] Comment: The eGFR was calculated using the CKD-EPI equation. As with all creatinine based estimates of kidney function, eGFR values calculated with the CKD-EPI equation are not accurate in patients with acute kidney failure, extremes of body mass or the acutely ill. 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 Scanning Provider MEDIA MGR SCAN EXT O RDR/RSLT * Urinalysis Microscopic Exam (12/13/2017 11:55 PM EDT) RBC UA 3 0 - 4 /HPF [facility] WBC UA 2 0 - 5 /HPF [facility] Urine specimen (specimen) 12/13/2017 11:55 PM EDT 12/14/2017 12:07 AM EDT Narrative Resulting Agency Comment Spec In Lab Russell Lewis MD URINE ORDERABLES Performing Organization Address [facility] Co de Phone Number [facility] [place] [address] * (ABNORMAL) Urinalysis with reflex Culture (12/13/2017 11:55 PM EDT) Glucose UA Negative Negative mg/dL [facility] Protein UA Negative Negative mg/dL [facility] Bilirubin UA Negative Negative mg/dL [facility] Comment: Clinical correlation required for positive Urine Bilirubin results as false positive may occur with some drugs and drug related products. If a false positive is suspected a serum total bilirubin should be considered if clinically indicated. Urobilinogen UA Normal Normal mg/dL [facility] pH UA 6.0 5.0 - 8.0 [facility] Blood UA Small(A) Negative mg/dL [facility] Ketones UA Negative Negative mg/dL [facility] Nitrite UA Negative Negative [facility] Leukocytes UA Negative Negative [facility] Appearance UA Clear Clear [facility] Spec Treichlers UA >1.035(H) 1.002 - 1.030 [facility] Color UA Straw Yellow [facility] Culture Reflexed No [facility] Urine specimen (specimen) 12/13/2017 11:55 PM EDT 12/14/2017 12:07 AM EDT Narrative Resulting Agency Comment Spec In Lab Russell Lewis MD URINE ORDERABLES Performing Organization Address City/[facility]/ZIP Co de Phone Number [facility] [place] [address] * Rapid Drug Screen w/ Confirmation, Urine (12/13/2017 11:54 PM EDT) U Barbiturates Screen None Detected None Detected [facility] Comment: The barbiturate screen detects barbiturates at concentrations >200 ng/mL. Note: Not all barbiturates cross-react equally with antibody used in this screen. A ? Presumptive Positive? result indicates that the screening result was positive but has not yet been confirmed by a highly-specific method. As with any screen, occasional false positive results from cross-reacting substances may occur. Not for Medico-Legal Purposes. U Benzodiazepines Screen None Detected None Detected [facility] Comment: The benzodiazepines screen detects benzodiazepines at concentrations >100 ng/mL. Not all benzodiazepines cross-react equally with antibody used in this screen. Due to the low dosage of clonazepam, false negatives may be obtained due to low concentration of clonazepam metabolites. A ? Presumptive Positive? result indicates that the screening result was positive but has not yet been confirmed by a highly-specific method. As with any screen, occasional false positive results from cross-reacting substances may occur. Not for Medico-Legal Purposes. U Cocaine Screen None Detected None Detected [facility] Comment: The cocaine metabolites screen detects benzoylecgonine (Cocaine Metabolite) at concentrations >150 ng/mL. A ? Presumptive Positive? result indicates that the screening result was positive but has not yet been confirmed by a highly-specific method. As with any screen, occasional false positive results from cross-reacting substances may occur. Not for Medico-Legal Purposes. U Methadone Metabolites Screen None Detected None Detected [facility] Comment: The methadone metabolite screen detects EDDP (major methadone metabolite) at concentrations >100 ng/mL. A ? Presumptive Positive? result indicates that the screening result was positive but has not yet been confirmed by a highly-specific method. As with any screen, occasional false positive results from cross-reacting substances may occur. Not for Medico-Legal Purposes. U Opiate Screen None Detected None Detected [facility] Comment: The opiates screen detects opiates at concentrations >300 ng/mL. Please note that oxycodone, oxymorphone, fentanyl, tramadol, and other synthetic opioids are not detected by the opiate screen. A ? Presumptive Positive? result indicates that the screening result was positive but has not yet been confirmed by a highly-specific method. As with any screen, occasional false positive results from cross-reacting substances may occur. Not for Medico-Legal Purposes. U Cannabinoid Screen None Detected None Detected [facility] Comment: The marijuana metabolites screen detects the THC metabolite (37-sfa-7-carboxy-delta 9-THC) at concentrations >20 ng/mL. A ? Presumptive Positive? result indicates that the screening result was positive but has not yet been confirmed by a highly-specific method. As with any screen, occasional false positive results from cross-reacting substances may occur. Not for Medico-Legal Purposes. U Oxycodone Screen None Detected None Detected [facility] Comment: The oxycodone screen detects oxycodone and oxymorphone at concentrations >100 ng/mL. A ? Presumptive Positive? result indicates that the screening result was positive but has not yet been confirmed by a highly-specific method. As with any screen, occasional false positive results from cross-reacting substances may occur. Not for Medico-Legal Purposes. U Buprenorphine Screen None Detected None Detected [facility] Comment: The buprenorphine screen detects buprenorphine at concentrations >5 ng/mL. A ? Presumptive Positive? result indicates that the screening result was positive but has not yet been confirmed by a highly-specific method. As with any screen, occasional false positive results from cross-reacting substances may occur. Not for Medico-Legal Purposes. U Fentanyl Screen None Detected None Detected [facility] Comment: The fentanyl screen detects fentanyl at concentrations >2 ng/mL. A ? Presumptive Positive? result indicates that the screening result was positive but has not yet been confirmed by a highly-specific method. As with any screen, occasional false positive results from cross-reacting substances may occur. Not for Medico-Legal Purposes. U Tricyclics Screen None Detected None Detected [facility] Comment: The tricyclics screen detects tricyclic antidepressants at concentrations >150 ng/mL. Not all tricyclics cross-react equally with the antibody used in this screen. A ? Presumptive Positive? result indicates that the screening result was positive but has not yet been confirmed by a highly-specific method. As with any screen, occasional false positive results from cross-reacting substances may occur. Not for Medico-Legal Purposes. U Ethanol Screen None Detected None Detected [facility] Comment:This urine ethanol a ssay detects ethanol at concentrations >/= 100 mg/L. U Amphetamines Screen None Detected None Detected [facility] Comment: The amphetamine screen detects d-amphetamine and d-methamphetamine at concentrations >300 ng/mL. A ? Presumptive Positive? result indicates that the screening result was positive but has not yet been confirmed by a highly-specific method. As with any screen, occasional false positive results from cross-reacting substances may occur. Not for Medico-Legal Purposes. U Adulterants Screen None Detected None Detected [facility] Comment: No adulteration or dilution of this urine sample was detected. All urine samples submitted for urine drugs of abuse analysis are tested for creatinine concentration, pH, and for the presence of oxidants, nitrites, and chromate. Urine specimen (specimen) 12/13/2017 11:54 PM EDT 12/14/2017 12:07 AM EDT Narrative Resulting Agency Comment Spec In Lab Russell Lewis MD CHEMISTRY ORDERABLE S Performing Organization Address City/[facility] Co de Phone Number [facility] [place] [address] * Rapid Drug Screen, Urine (PRETTY Request) (12/13/2017 11:54 PM EDT) PRETTY Conf Requested Yes [facility] PRETTY Requested See Comment [facility] Comment:Refer to Rapid Drug Screen w/ Confirmation, Urine for results. Urine specimen (specimen) 12/13/2017 11:54 PM EDT 12/14/2017 12:07 AM EDT Narrative Resulting Agency Comment Spec In Lab Russell Lewis MD URINE ORDERABLES Performing Organization Address [facility]/ZIP Co de Phone Number [facility] [place] [address] * Request For 2nd Read CT Head And Spine (12/13/2017 10:53 PM EDT) Anatomical Region Laterality Modality Head, C-spine, T-spine, L-spine SO Impressions 12/13/2017 11:16 PM EDT No acute intracranial hemorrhage, depressed calvarial fracture, or cervical vertebral osseous injury identified. Narrative 12/13/2017 11:16 PM EDT EXAMINATION: REQUEST FOR 2ND READ CT HEAD AND SPINE CLINICAL HISTORY: s/p fall; What Modality is the exam? CT Scan; Body Part (please add comments as necessary): head c spine; I believe a reinterpretation of this exam may alter care of Patient. Yes TECHNIQUE: Reinterpretation request for outside: * ??Noncontrast CT head. * ??Noncontrast CT cervical spine. COMPARISON: None FINDINGS: HEAD: Scott-white interface appears relatively well differentiated. Lateral ventricles appear relatively symmetric. Basal cisterns appear patent. No global mass effect, midline shift, herniation, large space-occupying process appreciated. No acute intracranial hemorrhage identified. Included paranasal sinuses: Mild scattered mucosal thickening. Mastoid air cells: Clear. Calvarium: No depressed fracture seen. Extracranial soft tissues: Unremarkable. CERVICAL SPINE: Alignment: No evidence of acute traumatic malalignment. Vertebrae: No acute fracture identified. Intervertebral disc spaces: Preserved. Prevertebral soft tissues: Unremarkable. Procedure Note Jhonatan Napier MD - 12/13/2017 EXAMINATION: REQUEST FOR 2ND READ CT HEAD AND SPINE CLINICAL HISTORY: s/p fall; What Modality is the exam? CT Scan; BodyPart (please add comments as necessary): head c spine; I believe areinterpretation of this exam may alter care of Patient. Yes TECHNIQUE: Reinterpretation request for outside: * Noncontrast CT head. * Noncontrast CT cervical spine. COMPARISON: None FINDINGS: HEAD: Scott-white interface appears relatively well differentiated. Lateral ventricles appear relatively symmetric. Basal cisterns appear patent. No global mass effect, midline shift, herniation, large space-occupyingprocess appreciated. No acute intracranial hemorrhage identified. Included paranasal sinuses: Mild scattered mucosal thickening. Mastoid air cells: Clear. Calvarium: No depressed fracture seen. Extracranial soft tissues: Unremarkable. CERVICAL SPINE: Alignment: No evidence of acute traumatic malalignment. Vertebrae: No acute fracture identified. Intervertebral disc spaces: Preserved. Prevertebral soft tissues: Unremarkable. IMPRESSION No acute intracranial hemorrhage, depressed calvarial fracture, orcervical vertebral osseous injury identified. Russell Lewis MD IMG OUTSIDE INTERPR ETATION ORDERABLES * Request For 2nd Read CT Chest Abdomen Pelvis (12/13/2017 10:52 PM EDT) Anatomical Region Laterality Modality Chest, Abdomen, Pelvis SO Impressions 12/13/2017 11:35 PM EDT 1. ??Mildly displaced acute fracture of the LEFT acetabular posterior wall. 2. ??No acute thoracic /lumbar vertebral osseous injury identified; however, the axial images exclude large portions of the spine throughout rendering suboptimal assessment. Narrative 12/13/2017 11:35 PM EDT EXAMINATION: REQUEST FOR 2ND READ CT CHEST ABDOMEN PELVIS, REQUEST FOR 2ND READ CT SPINE CLINICAL HISTORY: s/p fall; What Modality is the exam? CT Scan; Body Part (please add comments as necessary): chest abdomen pelvis; I believe a reinterpretation of this exam may alter care of Patient. Yes TECHNIQUE: Reinterpretation request for outside: * ??CT chest/abdomen/pelvis with intravenous contrast. Absence of enteric contrast renders suboptimal assessment of bowel lumen and surrounding soft tissue structures/viscera. * ??CT thoracic spine reconstructions. * ??CT lumbar spine reconstructions. COMPARISON: None FINDINGS: CHEST: Lungs/Pleura: Hypoventilatory dependent changes, slightly more prominent in the lingula. No confluent airspace opacity otherwise identified. No pleural effusion or pneumothorax seen. Mediastinum/Margo: Unremarkable. Heart: Unremarkable. Vasculature: Nonaneurysmal thoracic aorta. ABDOMEN/PELVIS: Liver: Nonspecific millimetric hypodensity too small to characterize. Gallbladder: Unremarkable. Spleen: Unremarkable. Pancreas: Unremarkable. Adrenal Glands: Unremarkable. Kidneys: Unremarkable. Urinary bladder: Unremarkable. GI: Nonspecific mildly prominent RIGHT lower quadrant small bowel loops with some air-fluid levels. Mesentery/Peritoneum: No free air identified. No free fluid seen. Lymphatic System: No lymphadenopathy identified. Vasculature: Nonaneurysmal abdominal aorta. Nonspinal Osseous Structures: Mildly displaced acute fracture of the LEFT acetabular posterior wall. Thoracic spine: No acute fracture or traumatic malalignment appreciated on the coronal/sagittal images; axial images excluded portions of the spine throughout. Lumbar spine: No acute fracture or traumatic malalignment appreciated on the coronal/sagittal images; axial images excluded large portions of the spine throughout. Procedure Note Jhonatan Napier MD - 12/13/2017 EXAMINATION: REQUEST FOR 2ND READ CT CHEST ABDOMEN PELVIS, REQUEST FOR2ND READ CT SPINE CLINICAL HISTORY: s/p fall; What Modality is the exam? CT Scan; BodyPart (please add comments as necessary): chest abdomen pelvis; I believe a reinterpretation of this exam may alter care of Patient. Yes TECHNIQUE: Reinterpretation request for outside: * CT chest/abdomen/pelvis with intravenous contrast. Absence of enteric contrast renders suboptimal assessment of bowel lumen and surroundingsoft tissue structures/viscera. * CT thoracic spine reconstructions. * CT lumbar spine reconstructions. COMPARISON: None FINDINGS: CHEST: Lungs/Pleura: Hypoventilatory dependent changes, slightly more prominentin the lingula. No confluent airspace opacity otherwise identified. No pleuraleffusion or pneumothorax seen. Mediastinum/Margo: Unremarkable. Heart: Unremarkable. Vasculature: Nonaneurysmal thoracic aorta. ABDOMEN/PELVIS: Liver: Nonspecific millimetric hypodensity too small to characterize. Gallbladder: Unremarkable. Spleen: Unremarkable. Pancreas: Unremarkable. Adrenal Glands: Unremarkable. Kidneys: Unremarkable. Urinary bladder: Unremarkable. GI: Nonspecific mildly prominent RIGHT lower quadrant small bowel loopswith some air-fluid levels. Mesentery/Peritoneum: No free air identified. No free fluid seen. Lymphatic System: No lymphadenopathy identified. Vasculature: Nonaneurysmal abdominal aorta. Nonspinal Osseous Structures: Mildly displaced acute fracture of theLEFT acetabular posterior wall. Thoracic spine: No acute fracture or traumatic malalignment appreciated onthe coronal/sagittal images; axial images excluded portions of the spinethroughout. Lumbar spine: No acute fracture or traumatic malalignment appreciated onthe coronal/sagittal images; axial images excluded large portions of thespine throughout. IMPRESSION 1. Mildly displaced acute fracture of the LEFT acetabular posteriorwall. 2. No acute thoracic /lumbar vertebral osseous injury identified;however, the axial images exclude large portions of the spine throughout renderingsuboptimal assessment. Russell Lewis MD IMG OUTSIDE INTERPR ETATION ORDERABLES * Request For 2nd Read CT Spine (12/13/2017 10:51 PM EDT) Anatomical Region Laterality Modality C-spine, T-spine, L-spine SO Impressions 12/13/2017 11:35 PM EDT 1. ??Mildly displaced acute fracture of the LEFT acetabular posterior wall. 2. ??No acute thoracic /lumbar vertebral osseous injury identified; however, the axial images exclude large portions of the spine throughout rendering suboptimal assessment. Narrative 12/13/2017 11:35 PM EDT EXAMINATION: REQUEST FOR 2ND READ CT CHEST ABDOMEN PELVIS, REQUEST FOR 2ND READ CT SPINE CLINICAL HISTORY: s/p fall; What Modality is the exam? CT Scan; Body Part (please add comments as necessary): chest abdomen pelvis; I believe a reinterpretation of this exam may alter care of Patient. Yes TECHNIQUE: Reinterpretation request for outside: * ??CT chest/abdomen/pelvis with intravenous contrast. Absence of enteric contrast renders suboptimal assessment of bowel lumen and surrounding soft tissue structures/viscera. * ??CT thoracic spine reconstructions. * ??CT lumbar spine reconstructions. COMPARISON: None FINDINGS: CHEST: Lungs/Pleura: Hypoventilatory dependent changes, slightly more prominent in the lingula. No confluent airspace opacity otherwise identified. No pleural effusion or pneumothorax seen. Mediastinum/Margo: Unremarkable. Heart: Unremarkable. Vasculature: Nonaneurysmal thoracic aorta. ABDOMEN/PELVIS: Liver: Nonspecific millimetric hypodensity too small to characterize. Gallbladder: Unremarkable. Spleen: Unremarkable. Pancreas: Unremarkable. Adrenal Glands: Unremarkable. Kidneys: Unremarkable. Urinary bladder: Unremarkable. GI: Nonspecific mildly prominent RIGHT lower quadrant small bowel loops with some air-fluid levels. Mesentery/Peritoneum: No free air identified. No free fluid seen. Lymphatic System: No lymphadenopathy identified. Vasculature: Nonaneurysmal abdominal aorta. Nonspinal Osseous Structures: Mildly displaced acute fracture of the LEFT acetabular posterior wall. Thoracic spine: No acute fracture or traumatic malalignment appreciated on the coronal/sagittal images; axial images excluded portions of the spine throughout. Lumbar spine: No acute fracture or traumatic malalignment appreciated on the coronal/sagittal images; axial images excluded large portions of the spine throughout. Procedure Note Jhonatan Napier MD - 12/13/2017 EXAMINATION: REQUEST FOR 2ND READ CT CHEST ABDOMEN PELVIS, REQUEST FOR2ND READ CT SPINE CLINICAL HISTORY: s/p fall; What Modality is the exam? CT Scan; BodyPart (please add comments as necessary): chest abdomen pelvis; I believe a reinterpretation of this exam may alter care of Patient. Yes TECHNIQUE: Reinterpretation request for outside: * CT chest/abdomen/pelvis with intravenous contrast. Absence of enteric contrast renders suboptimal assessment of bowel lumen and surroundingsoft tissue structures/viscera. * CT thoracic spine reconstructions. * CT lumbar spine reconstructions. COMPARISON: None FINDINGS: CHEST: Lungs/Pleura: Hypoventilatory dependent changes, slightly more prominentin the lingula. No confluent airspace opacity otherwise identified. No pleuraleffusion or pneumothorax seen. Mediastinum/Margo: Unremarkable. Heart: Unremarkable. Vasculature: Nonaneurysmal thoracic aorta. ABDOMEN/PELVIS: Liver: Nonspecific millimetric hypodensity too small to characterize. Gallbladder: Unremarkable. Spleen: Unremarkable. Pancreas: Unremarkable. Adrenal Glands: Unremarkable. Kidneys: Unremarkable. Urinary bladder: Unremarkable. GI: Nonspecific mildly prominent RIGHT lower quadrant small bowel loopswith some air-fluid levels. Mesentery/Peritoneum: No free air identified. No free fluid seen. Lymphatic System: No lymphadenopathy identified. Vasculature: Nonaneurysmal abdominal aorta. Nonspinal Osseous Structures: Mildly displaced acute fracture of theLEFT acetabular posterior wall. Thoracic spine: No acute fracture or traumatic malalignment appreciated onthe coronal/sagittal images; axial images excluded portions of the spinethroughout. Lumbar spine: No acute fracture or traumatic malalignment appreciated onthe coronal/sagittal images; axial images excluded large portions of thespine throughout. IMPRESSION 1. Mildly displaced acute fracture of the LEFT acetabular posteriorwall. 2. No acute thoracic /lumbar vertebral osseous injury identified;however, the axial images exclude large portions of the spine throughout renderingsuboptimal assessment. Russell Lewis MD IMG OUTSIDE INTERPR ETATION ORDERABLES * Request for 2nd read DX Knee (12/13/2017 10:50 PM EDT) Anatomical Region Laterality Modality SO Impressions 12/13/2017 11:42 PM EDT TECHNIQUE/FINDINGS/IMPRESSION: Frontal, oblique, and crosstable lateral views of the RIGHT knee: Comminuted fracture of the tibial plateau, predominantly involving the lateral aspect extending to the metaphysis as well as the region of the tibial spines with intra-articular extension. Fracture line may be extending across the medial aspect. Hemarthrosis. Oblique and lateral views of the LEFT knee demonstrate no obvious displaced fracture although assessment is suboptimal including nonspecific lucency at the tibial plateau which may or may not represent nondisplaced fracture. Narrative 12/13/2017 11:42 PM EDT EXAMINATION: REQUEST FOR 2ND READ DX KNEE CLINICAL HISTORY: s/p fall; What Modality is the exam? Diagnostic; Body Part (please add comments as necessary): leg; I believe a reinterpretation of this exam may alter care of Patient. Yes COMPARISON: None Procedure Note Jhonatan Napier MD - 12/13/2017 EXAMINATION: REQUEST FOR 2ND READ DX KNEE CLINICAL HISTORY: s/p fall; What Modality is the exam? Diagnostic; BodyPart (please add comments as necessary): leg; I believe a reinterpretation ofthis exam may alter care of Patient. Yes COMPARISON: None IMPRESSION TECHNIQUE/FINDINGS/IMPRESSION: Frontal, oblique, and crosstable lateral views of the RIGHT knee:Comminuted fracture of the tibial plateau, predominantly involving the lateralaspect extending to the metaphysis as well as the region of the tibial spineswith intra-articular extension. Fracture line may be extending across themedial aspect. Hemarthrosis. Oblique and lateral views of the LEFT knee demonstrate no obviousdisplaced fracture although assessment is suboptimal including nonspecific lucencyat the tibial plateau which may or may not represent nondisplaced fracture. Russell SNEED OUTSIDE INTERPR ETATION ORDERABLES * Request for 2nd read DX Wrist (12/13/2017 10:49 PM EDT) Anatomical Region Laterality Modality SO Impressions 12/13/2017 11:44 PM EDT FINDINGS/IMPRESSION: Comminuted intra-articular fracture of the distal radial metaphysis with minimal displacement as well as minimal dorsal angulation of the distal components. Narrative 12/13/2017 11:44 PM EDT EXAMINATION: REQUEST FOR 2ND READ DX WRIST CLINICAL HISTORY: s/p fall; What Modality is the exam? Diagnostic; Body Part (please add comments as necessary): wrist/arm; I believe a reinterpretation of this exam may alter care of Patient. Yes TECHNIQUE: Reinterpretation request for outside 3 RIGHT wrist radiographs COMPARISON: None Procedure Note Jhonatan Napier MD - 12/13/2017 EXAMINATION: REQUEST FOR 2ND READ DX WRIST CLINICAL HISTORY: s/p fall; What Modality is the exam? Diagnostic; BodyPart (please add comments as necessary): wrist/arm; I believe areinterpretation of this exam may alter care of Patient. Yes TECHNIQUE: Reinterpretation request for outside 3 RIGHT wrist radiographs COMPARISON: None IMPRESSION FINDINGS/IMPRESSION: Comminuted intra-articular fracture of the distal radial metaphysis withminimal displacement as well as minimal dorsal angulation of the distalcomponents. Russell SNEED OUTSIDE INTERPR ETATION ORDERABLES * Film Library- Storage Only CT Spine (12/13/2017 12:20 AM EDT) Narrative RAD - 12/13/2017 10:12 PM EDT This exam is for storage only and is auto-finalizing. Russell SNEED FILM LIBRARY OR DERABLES [place], [place] * Film Library- Storage Only CT Chest Abdomen Pelvis (12/13/2017 12:15 AM EDT) Narrative [facility] - 12/13/2017 10:11 PM EDT This exam is for storage only and is auto-finalizing. Russell Lewis MD IMG FILM LIBRARY OR DERABLES Performing Organization Address [facility] de Phone Number [place], [place] * Film Library- Storage Only DX Knee (12/13/2017 12:10 AM EDT) Narrative [facility] - 12/13/2017 10:05 PM EDT This exam is for storage only and is auto-finalizing. Russell RAYAG FILM LIBRARY OR DERABLES Performing Organization Address [facility] de Phone Number [place], [place] * Film Library- Storage Only DX Wrist (12/13/2017 12:05 AM EDT) Narrative [facility] - 12/13/2017 10:04 PM EDT This exam is for storage only and is auto-finalizing. Russell SNEED FILM LIBRARY OR DERABLES Performing Organization Address [facility] de Phone Number [place], [place] * Film Library- Storage Only CT Head And Spine (12/13/2017 12:00 AM EDT) Narrative [facility] - 12/13/2017 10:03 PM EDT This exam is for storage only and is auto-finalizing. Russell SNEED FILM LIBRARY OR DERABLES Performing Organization Address [facility] de Phone Number [place], [place] documented in this encounter Visit Diagnoses Diagnosis 12/14/2017 ORIF right tibial plateau fx (Dr. Romero)- Primary Fracture of radius, right, closed Closed fracture of unspecified part of radius (alone) Trauma Injury, other and unspecified, unspecified site 12/14/2017 ORIF right distal radius fracture (Dr. Romero) 12/20/2017 ORIF left acetabulum for closed fracture of posterior wall of left acetabulum (Dr. Talamantes) Postoperative anemia due to acute blood loss Acute posthemorrhagic anemia documented in this encounter Admitting Diagnoses Diagnosis Trauma Injury, other and unspecified, unspecified site Fracture of right tibial plateau documented in this encounter Administered Medications Inactive Administered Medications - up to 3 most recent administrations Medication Order MAR Action Action Date Dose Rate Site acetaminophen (TYLENOL) tablet 1,000 mg 1,000 mg, Oral, EVERY 6 HOURS, First dose (after last modification) on Wed12/14/17 at 0745, Until Discontinued, Should be used concomitantly if other analgesics are ordered. Do not exceed 4,000 mg in 24 hours, Routine Given 12/24/2017 10:11 AM EDT 1,000 mg Given 12/24/2017 4:00 AM EDT 1,000 mg Given 12/23/2017 8:45 PM EDT 1,000 mg bisacodyl (DULCOLAX) EC tablet 10 mg 10 mg, Oral, 2 TIMES DAILY PRN, Starting on 12/18/17 at 2028, Until Wed12/24/17 at 1617, Constipation, DO NOT CRUSH OR OPEN Administer if no bowel movement within 48 hours to achieve: (1) One bowel movement at least every 48 hours, AND (2) without straining. If multiple PRN bowel medications ordered, start with polyethylene glycol, then lactulose, then oral bisacodyl, then bisacodyl suppository, then magnesium citrate, then tap water enema. Multiple medications may be given concomitantly for constipation., Routine Given 12/24/2017 12:35 PM EDT 10 mg Given 12/19/2017 6:22 AM EDT 10 mg bisacodyl (DULCOLAX) suppository 10 mg 10 mg, Rectal, DAILY PRN, Starting on 12/14/17 at 0720, Until Wed12/24/17 at 1617, Constipation, Routine cyclobenzaprine (FLEXERIL) tablet 10 mg 10 mg, Oral, 3 TIMES DAILY PRN, Starting on 12/18/17 at 2239, Until Wed12/24/17 at 1617, Muscle spasms, Routine Given 12/24/2017 4:23 AM EDT 10 mg Given 12/23/2017 4:10 PM EDT 10 mg Given 12/22/2017 9:20 PM EDT 10 mg enoxaparin (LOVENOX) injection 30 mg 30 mg, Subcutaneous, EVERY 12 HOURS SCHEDULED (2 times per day), First dose on Wed12/15/17 at 0900, Until Discontinued, Routine Given 12/18/2017 8:23 PM EDT 30 mg Given 12/18/2017 8:35 AM EDT 30 mg Given 12/17/2017 8:53 PM EDT 30 mg enoxaparin (LOVENOX) injection 30 mg 30 mg, Subcutaneous, EVERY 12 HOURS SCHEDULED (2 times per day), 2 doses, First dose on 12/19/17 at 0900, Last dose on Wed12/19/17 at 2100, Do not give AM dose of Lovenox on 12/20/17 (patient going to OR)., Routine Given 12/19/2017 10:45 PM EDT 30 mg Given 12/19/2017 11:12 AM EDT 30 mg enoxaparin (LOVENOX) injection 30 mg 30 mg, Subcutaneous, EVERY 12 HOURS SCHEDULED (2 times per day), First dose on Wed12/20/17 at 2100, Until Discontinued, Routine Given 12/24/2017 10:12 AM EDT 30 mg Given 12/23/2017 8:47 PM EDT 30 mg Given 12/23/2017 8:21 AM EDT 30 mg fentaNYL (PF) 50mcg/mL injection 25-50 mcg, Intravenous, EVERY 5 MIN PRN, Starting on Wed12/14/17 at 1337, Until Wed12/14/17 at 1602, Pain, Give 25 mcg every 5 minutes PRN for mild to moderate pain (1-5) Give 50 mcg every 5 minutes PRN for moderate to severe pain (6-10). Hold for respiratory rate less than 10 per minute. Maximum dose 250 mcg over one hour. If ordered with hydromorphone or morphine, give hydromorphone or morphine first and use fentanyl for breakthrough pain., PACU Recovery, Routine Given 12/14/2017 3:03 PM EDT 50 mcg fentaNYL (PF) 50mcg/mL injection 25-50 mcg, Intravenous, EVERY 5 MIN PRN, Starting on Wed12/20/17 at 0950, Until Wed12/20/17 at 1234, Pain, Give 25 mcg every 5 minutes PRN for mild to moderate pain (1-5) Give 50 mcg every 5 minutes PRN for moderate to severe pain (6-10). Hold for respiratory rate less than 10 per minute. Maximum dose 250 mcg over one hour. If ordered with hydromorphone or morphine, give hydromorphone or morphine first and use fentanyl for breakthrough pain., PACU Recovery, Routine Given 12/20/2017 11:31 AM EDT 50 mcg HYDROmorphone (DILAUDID) injection 0.2 mg 0.2 mg, Intravenous, EVERY 2 HOURS PRN, Starting on Wed12/14/17 at 1652, Until Juliette 12/16/17 at 1435, Pain, pain scale greater than 1-3 if not accepting PO or pre-procedure, Routine Given 12/15/2017 4:31 PM EDT 0.2 mg Given 12/14/2017 9:43 PM EDT 0.2 mg HYDROmorphone (DILAUDID) injection 0.2-0.4 mg 0.2-0.4 mg, Intravenous, EVERY 5 MIN PRN, Starting on Wed12/20/17 at 0950, Until Wed12/20/17 at 1234, Pain, Give 0.2 mg every 5 minutes PRN for mild to moderate pain (1-5) Give 0.4 mg every 5 minutes PRN for moderate to severe pain (6-10). Hold for respiratory rate less than 10 per minute. Maximum dose 4 mg over one hour. If multiple pain medications are ordered, start with hydromorphone or morphine and use fentanyl for breakthrough pain., PACU Recovery, Routine Given 12/20/2017 11:25 AM EDT 0.4 mg Given 12/20/2017 10:59 AM EDT 0.4 mg Given 12/20/2017 10:52 AM EDT 0.4 mg HYDROmorphone (DILAUDID) injection 0.4 mg 0.4 mg, Intravenous, EVERY 2 HOURS PRN, Starting on Wed12/14/17 at 0416, Until Wed12/14/17 at 1652, Pain, pain scale greater than 1-3 or pre-procedure, Routine Given 12/14/2017 4:23 PM EDT 0.4 mg Given 12/14/2017 6:45 AM EDT 0.4 mg Given 12/14/2017 4:39 AM EDT 0.4 mg HYDROmorphone (DILAUDID) injection 0.4 mg 0.4 mg, Intravenous, ONCE, 1 dose, On Wed12/21/17 at 0245, Routine Given 12/21/2017 3:55 AM EDT 0.4 mg lactated Ringers infusion 1,000 mL 1,000 mL, at 100 mL/hr, Intravenous, CONTINUOUS, Starting on Wed12/14/17 at 0445, Until Wed12/14/17 at 1648, Recovery (Recovery-Hospital Unit) Continued Bag 12/14/2017 2:43 PM EDT 1,000 mLs 100 mL/hr New Bag 12/14/2017 4:45 AM EDT 1,000 mLs 100 mL/hr lactulose (CHRONULAC) 20 gram/30 mL oral solution 20-40 g 20-40 g (30-60 mL), Oral, DAILY PRN, Starting on 12/18/17 at 2027, Until Wed12/24/17 at 1617, Constipation, Administer if needed per patient's routine or if no bowel movement within 48 hours to achieve: (1) One bowel movement at least every 48 hours, AND (2) Without straining. Start with 30 mL orally. If no bowel movement within 24 hours, increase to 60 mL orally Once Daily PRN. If multiple PRN bowel medications ordered, start with polyethylene glycol, then lactulose, then oral bisacodyl, then bisacodyl suppository, then magnesium citrate, then tap water enema. Multiple medications may be given concomitantly for constipation., Routine Given 12/19/2017 11:11 AM EDT 20 g magnesium citrate oral solution 300 mL 300 mL, Oral, DAILY PRN, Starting on 12/18/17 at 2027, Until Wed12/24/17 at 1617, Constipation, Administer if no bowel movement within 48 hrs to achieve 1) one bowel movement at least every 48 hrs and 2) without straining. If multiple PRN bowel medications ordered, start with polyethylene glycol, then lactulose, then oral bisacodyl, then bisacodyl suppository, then magnesium citrate, then tap water enema. Multiple medications may be given concomitantly for constipation. May repeat times 1 in 4 hours., Routine Given 12/19/2017 8:21 PM EDT 300 mLs magnesium citrate oral solution 300 mL 300 mL, Per G Tube, DAILY PRN, Starting on Wed12/18/17 at 2028, Until Wed12/24/17 at 1617, Constipation, Administer if no bowel movement within 48 hrs to achieve 1) one bowel movement at least every 48 hrs and 2) without straining. If multiple PRN bowel medications ordered, start with polyethylene glycol, then lactulose, then oral bisacodyl, then bisacodyl suppository, then magnesium citrate, then tap water enema. Multiple medications may be given concomitantly for constipation. May repeat times 1 in 4 hours., Routine ondansetron (ZOFRAN) 4 mg/2 mL injection 1 dose, Starting on Wed12/14/17 at 0100, Until Wed12/14/17 at 0101, CARMELITA SEVERINO: cabinet override Given 12/14/2017 1:01 AM EDT 4 mg oxyCODONE (ROXICODONE) immediate release tablet 10 mg 10 mg, Oral, EVERY 4 HOURS PRN, Starting on Wed12/14/17 at 1646, Until Wed12/21/17 at 0224, Pain, give 5mg for pain rated 6/10 or less and give 10mg for pain 7/10 or greater, May repeat 5 mg in 60 minutes if pain not relieved. For pain not relieved by ibuprofen or acetaminophen- if ordered, Routine Given 12/21/2017 1:17 AM EDT 10 mg Given 12/20/2017 8:31 PM EDT 10 mg Given 12/20/2017 3:08 PM EDT 10 mg oxyCODONE (ROXICODONE) immediate release tablet 10 mg 10 mg, Oral, EVERY 3 HOURS PRN, Starting on Wed12/21/17 at 0620, Until Wed12/24/17 at 1617, Pain, moderate pain (4-6), May give additional 5 mg in 30 minutes once if pain not relieved., Routine oxyCODONE (ROXICODONE) immediate release tablet 10-15 mg 10-15 mg, Oral, EVERY 4 HOURS PRN, Starting on Wed12/21/17 at 0222, Until Wed12/21/17 at 0620, Pain, give 5mg for pain rated 6/10 or less and give 10mg for pain 7/10 or greater, May repeat 5 mg in 60 minutes if pain not relieved. For pain not relieved by ibuprofen or acetaminophen- if ordered, Routine Given 12/21/2017 5:17 AM EDT 15 mg oxyCODONE (ROXICODONE) immediate release tablet 15 mg 15 mg, Oral, EVERY 3 HOURS PRN, Starting on Wed12/21/17 at 0620, Until Wed12/24/17 at 1617, Pain, severe pain or opiate tolerant patient (7-10), Do not start patient with 15 mg dose. Do not give 15 mg if patient is opiate niave., Routine Given 12/24/2017 12:36 PM EDT 15 mg Given 12/24/2017 4:23 AM EDT 15 mg Given 12/23/2017 8:46 PM EDT 15 mg oxyCODONE (ROXICODONE) immediate release tablet 5 mg 5 mg, Oral, EVERY 4 HOURS PRN, Starting on Wed12/14/17 at 0416, Until Wed12/14/17 at 1648, Pain, Moderate pain (4-6), May repeat 5 mg in 60 minutes if pain not relieved. For pain not relieved by ibuprofen or acetaminophen- if ordered, Routine Given 12/14/2017 7:21 AM EDT 5 mg oxyCODONE (ROXICODONE) immediate release tablet 5 mg 5 mg, Oral, EVERY 3 HOURS PRN, Starting on Wed12/21/17 at 0620, Until Wed12/24/17 at 1617, Pain, mild pain (1-3), May give additional 5 mg in 30 minutes once if pain not relieved., Routine polyethylene glycol (MIRALAX) packet 17 g 17 g, Oral, 2 TIMES DAILY, First dose (after last modification) on 12/18/17 at 2100, Until Discontinued, Routine Given 12/18/2017 10:54 PM EDT 17 g polyethylene glycol (MIRALAX) packet 17 g 17 g, Oral, DAILY PRN, Starting on Wed12/18/17 at 2027, Until Wed12/24/17 at 1617, Constipation, Administer if no bowel movement within 48 hours to achieve: (1) One bowel movement at least every 48 hours, AND (2) without straining. If multiple PRN bowel medications ordered, start with polyethylene glycol, then lactulose, then oral bisacodyl, then bisacodyl suppository, then magnesium citrate, then tap water enema. Multiple medications may be given concomitantly for constipation., Routine senna-docusate (PERICOLACE) 8.6-50 mg per tablet 2 tablet 2 tablet, Oral, 2 TIMES DAILY, First dose on Wed12/14/17 at 0900, Until Discontinued, Routine Given 12/24/2017 10:12 AM EDT 2 tablets Given 12/23/2017 8:45 PM EDT 2 tablets Given 12/23/2017 8:20 AM EDT 2 tablets sodium chloride 0.9 % flush 5 mL 5 mL, Intravenous, 2 TIMES DAILY, First dose on Wed12/14/17 at 0900, Until Discontinued, Recovery (Recovery-Hospital Unit), Routine Given 12/24/2017 10:13 AM EDT 5 mLs Given 12/23/2017 8:48 PM EDT 5 mLs Given 12/23/2017 8:23 AM EDT 5 mLs documented in this encounter Active and Recently Administered Medications Times are shown in EDT. Scheduled Medication Order 12/22/2017 12/23/2017 12/24/2017 acetaminophen (TYLENOL) tablet 1,000 mg 1,000 mg, Oral, EVERY 6 HOURS, First dose (after last modification) on Wed12/14/17 at 0745, Until Discontinued, Should be used concomitantly if other analgesics are ordered. Do not exceed 4,000 mg in 24 hours, Routine 0229 (Given - Provider: Cary Urrutia RN)0843 (Given - Provider: Christin Edwards RN)1557 (Given - Provider: Christin Edwards RN)2120 (Given - Provider: Baltazar Young RN) 0409 (Given - Provider: Cary Urrutia RN)0821 (Not Given - Provider: Christin Edwards RN - Reason: Patient/family refused - Comment: pt educated)1607 (Given - Provider: Faina Ortega RN)2045 (Given - Provider: La Castrejon, HAYLEY) 0400 (Given - Provider: La Castrejon, HAYLEY)1011 (Given - Provider: Pita Her RN) enoxaparin (LOVENOX) injection 30 mg 30 mg, Subcutaneous, EVERY 12 HOURS SCHEDULED (2 times per day), First dose on Wed12/20/17 at 2100, Until Discontinued, Routine 0845 (Given - Provider: Christin Edwards RN)2119 (Given - Provider: Baltazar Young, HAYLEY) 08 (Given - Provider: Christin Edwards, HAYLEY)2046 (Given - Provider: La Castrejon, RN) 1012 (Given - Provider: Pita Her, RN) senna-docusate (PERICOLACE) 8.6-50 mg per tablet 2 tablet 2 tablet, Oral, 2 TIMES DAILY, First dose on Wed12/14/17 at 0900, Until Discontinued, Routine 0844 (Given - Provider: Christin Edwards RN)2119 (Given - Provider: Baltazar Young RN) 08 (Given - Provider: Christin Edwards RN)2044 (Given - Provider: La Castrejon, HAYLEY) 1012 (Given - Provider: Pita Her, RN) sodium chloride 0.9 % flush 5 mL 5 mL, Intravenous, 2 TIMES DAILY, First dose on Wed12/14/17 at 0900, Until Discontinued, Recovery (Recovery-Hospital Unit), Routine 0845 (Given - Provider: Christin Edwards RN)2119 (Given - Provider: Baltazar Young, HAYLEY) 0823 (Given - Provider: Christin Edwards RN)2047 (Given - Provider: La Castrejon, HAYLEY) 1013 (Given - Provider: Pita Her, RN) PRN Medication Order 12/22/2017 12/23/2017 12/24/2017 bisacodyl (DULCOLAX) EC tablet 10 mg 10 mg, Oral, 2 TIMES DAILY PRN, Starting on Wed12/18/17 at 2028, Until Wed12/24/17 at 1617, Constipation, DO NOT CRUSH OR OPEN Administer if no bowel movement within 48 hours to achieve: (1) One bowel movement at least every 48 hours, AND (2) without straining. If multiple PRN bowel medications ordered, start with polyethylene glycol, then lactulose, then oral bisacodyl, then bisacodyl suppository, then magnesium citrate, then tap water enema. Multiple medications may be given concomitantly for constipation., Routine 1235 (Given - Provider: Pita Her, RN) bisacodyl (DULCOLAX) suppository 10 mg 10 mg, Rectal, DAILY PRN, Starting on Tu12/14/17 at 0720, Until Wed12/24/17 at 1617, Constipation, Routine cyclobenzaprine (FLEXERIL) tablet 10 mg 10 mg, Oral, 3 TIMES DAILY PRN, Starting on 12/18/17 at 2239, Until Wed12/24/17 at 1617, Muscle spasms, Routine 0229 (Given - Provider: Cary Urrutia, RN)1335 (Given - Provider: Christin Edwards, HAYLEY)2120 (Given - Provider: Baltazar Young, HAYLEY) 1610 (Given - Provider: Faina Ortega, HAYLEY) 0423 (Given - Provider: La Castrejon, HAYLEY) lactulose (CHRONULAC) 20 gram/30 mL oral solution 20-40 g 20-40 g (30-60 mL), Oral, DAILY PRN, Starting on Wed12/18/17 at 2027, Until Wed12/24/17 at 1617, Constipation, Administer if needed per patient's routine or if no bowel movement within 48 hours to achieve: (1) One bowel movement at least every 48 hours, AND (2) Without straining. Start with 30 mL orally. If no bowel movement within 24 hours, increase to 60 mL orally Once Daily PRN. If multiple PRN bowel medications ordered, start with polyethylene glycol, then lactulose, then oral bisacodyl, then bisacodyl suppository, then magnesium citrate, then tap water enema. Multiple medications may be given concomitantly for constipation., Routine lidocaine (XYLOCAINE) 10 mg/mL (1 %) injection 3 mg 3 mg (0.3 mL), Subcutaneous, ONCE PRN, 1 dose, Starting on Wed12/14/17 at 0416, Until Wed12/24/17 at 1617, for discomfort with PIV insertion, Recovery ([facility]), Routine magnesium citrate oral solution 300 mL(Linked Group 1) 300 mL, Oral, DAILY PRN, Starting on 12/18/17 at 2027, Until Wed12/24/17 at 1617, Constipation, Administer if no bowel movement within 48 hrs to achieve 1) one bowel movement at least every 48 hrs and 2) without straining. If multiple PRN bowel medications ordered, start with polyethylene glycol, then lactulose, then oral bisacodyl, then bisacodyl suppository, then magnesium citrate, then tap water enema. Multiple medications may be given concomitantly for constipation. May repeat times 1 in 4 hours., Routine magnesium citrate oral solution 300 mL(Linked Group 1) 300 mL, Per G Tube, DAILY PRN, Starting on Wed12/18/17 at 2028, Until Wed12/24/17 at 1617, Constipation, Administer if no bowel movement within 48 hrs to achieve 1) one bowel movement at least every 48 hrs and 2) without straining. If multiple PRN bowel medications ordered, start with polyethylene glycol, then lactulose, then oral bisacodyl, then bisacodyl suppository, then magnesium citrate, then tap water enema. Multiple medications may be given concomitantly for constipation. May repeat times 1 in 4 hours., Routine naloxone (NARCAN) injection 0.2 mg 0.2 mg, Intravenous, EVERY 1 MIN PRN, Starting on Wed12/14/17 at 0416, Until Wed12/24/17 at 1617, Opioid Reversal, If respiratory rate less than 6 OR the patient is unable to arouse OR SpO2 is declining, Give for respiratory rate of less than or equal to 6 and patient is heavily sedated or unarousable. May repeat every 60 seconds to increase respiratory rate. DO NOT exceed 2 mg total dose., Recovery ([facility]), Routine oxyCODONE (ROXICODONE) immediate release tablet 10 mg(Linked Group 2) 10 mg, Oral, EVERY 3 HOURS PRN, Starting on Wed12/21/17 at 0620, Until Wed12/24/17 at 1617, Pain, moderate pain (4-6), May give additional 5 mg in 30 minutes once if pain not relieved., Routine 0509 (See Alternative - Provider: Cary Urrutia RN)0843 (See Alternative - Provider: Christin Edwards, HAYLEY)1332 (See Alternative - Provider: Christin Edwards, HAYLEY)1952 (See Alternative - Provider: Cary Urrutia RN)2342 (See Alternative - Provider: Cary Urrutia RN) 0409 (See Alternative - Provider: Cary Urrutia RN)0820 (See Alternative - Provider: Christin Edwards RN)2045 (See Alternative - Provider: La Castrejon RN) 0423 (See Alternative - Provider: La Castrejon RN)1236 (See Alternative - Provider: Pita Her, RN) oxyCODONE (ROXICODONE) immediate release tablet 15 mg(Linked Group 2) 15 mg, Oral, EVERY 3 HOURS PRN, Starting on Wed12/21/17 at 0620, Until Wed12/24/17 at 1617, Pain, severe pain or opiate tolerant patient (7-10), Do not start patient with 15 mg dose. Do not give 15 mg if patient is opiate niave., Routine 050 (Given - Provider: Cary Urrutia RN)0843 (Given - Provider: Christin Edwards RN)133 (Given - Provider: Christin Edwards RN)1951 (Given - Provider: Cary Urrutia RN)234 (Given - Provider: Cary Urrutia RN) 040 (Given - Provider: Cary Urrutia RN)0820 (Given - Provider: Christin Edwards RN)2045 (Given - Provider: La Castrejon RN) 0423 (Given - Provider: La Castrejon RN)1236 (Given - Provider: Pita Her, RN) oxyCODONE (ROXICODONE) immediate release tablet 5 mg(Linked Group 2) 5 mg, Oral, EVERY 3 HOURS PRN, Starting on Wed12/21/17 at 0620, Until Wed12/24/17 at 1617, Pain, mild pain (1-3), May give additional 5 mg in 30 minutes once if pain not relieved., Routine 0509 (See Alternative - Provider: Cary Urrutia RN)0843 (See Alternative - Provider: Christin Edwards RN)1332 (See Alternative - Provider: Christin Edwards RN)195 (See Alternative - Provider: Cary Urrutia RN)234 (See Alternative - Provider: Cary M Ghada, RN) 0409 (See Alternative - Provider: Cary Urrutia, RN)0820 (See Alternative - Provider: Christin Edwards, RN)2046 (See Alternative - Provider: La Castrejon, RN) 0423 (See Alternative - Provider: La Castrejon, RN)1236 (See Alternative - Provider: Pita Her, RN) polyethylene glycol (MIRALAX) packet 17 g 17 g, Oral, DAILY PRN, Starting on 12/18/17 at 2026, Until Wed12/24/17 at 1617, Constipation, Administer if no bowel movement within 48 hours to achieve: (1) One bowel movement at least every 48 hours, AND (2) without straining. If multiple PRN bowel medications ordered, start with polyethylene glycol, then lactulose, then oral bisacodyl, then bisacodyl suppository, then magnesium citrate, then tap water enema. Multiple medications may be given concomitantly for constipation., Routine sodium chloride 0.9 % flush 5-20 mL 5-20 mL, Intravenous, EVERY 1 MIN PRN, Starting on Tu12/14/17 at 0416, Until Wed12/24/17 at 1617, flush, Flush pertains to all indwelling lines. Flush per protocol found in the job aid using the link provided on this medication record., Recovery ([facility] Unit), Routine Linked Groups Order Group 1: magnesium citrate oral solution 300 mLJump to med 300 mL, Oral, DAILY PRN, Starting on 12/18/17 at 2027, Until Wed12/24/17 at 1617, Constipation, Administer if no bowel movement within 48 hrs to achieve 1) one bowel movement at least every 48 hrs and 2) without straining. If multiple PRN bowel medications ordered, start with polyethylene glycol, then lactulose, then oral bisacodyl, then bisacodyl suppository, then magnesium citrate, then tap water enema. Multiple medications may be given concomitantly for constipation. May repeat times 1 in 4 hours., Routine Or magnesium citrate oral solution 300 mLJump to med 300 mL, Per G Tube, DAILY PRN, Starting on Wed12/18/17 at 2027, Until Wed12/24/17 at 1617, Constipation, Administer if no bowel movement within 48 hrs to achieve 1) one bowel movement at least every 48 hrs and 2) without straining. If multiple PRN bowel medications ordered, start with polyethylene glycol, then lactulose, then oral bisacodyl, then bisacodyl suppository, then magnesium citrate, then tap water enema. Multiple medications may be given concomitantly for constipation. May repeat times 1 in 4 hours., Routine Group 2: oxyCODONE (ROXICODONE) immediate release tablet 5 mgJump to med 5 mg, Oral, EVERY 3 HOURS PRN, Starting on Wed12/21/17 at 0620, Until Wed12/24/17 at 1617, Pain, mild pain (1-3), May give additional 5 mg in 30 minutes once if pain not relieved., Routine Or oxyCODONE (ROXICODONE) immediate release tablet 10 mgJump to med 10 mg, Oral, EVERY 3 HOURS PRN, Starting on Wed12/21/17 at 0620, Until Wed12/24/17 at 1617, Pain, moderate pain (4-6), May give additional 5 mg in 30 minutes once if pain not relieved., Routine Or oxyCODONE (ROXICODONE) immediate release tablet 15 mgJump to med 15 mg, Oral, EVERY 3 HOURS PRN, Starting on Wed12/21/17 at 0620, Until Wed12/24/17 at 1617, Pain, severe pain or opiate tolerant patient (7-10), Do not start patient with 15 mg dose. Do not give 15 mg if patient is opiate niave., Routine documented in this encounter Care Teams Clinical Specialist Vascular Relationship Specialty Start Date End Date Keiko Reddy MD [address] [place] [id number] PCP - General Family Medicine 06/18/17 05/15/18 documented as of this encounter
--- OUTSIDE RECORDS SUMMARY | 2023-12-15 01:17 | XMS_ITS | Encounter Summary ---
Author Organization [facility] Address [facility] [place] [address] Care Team Providers Care Internet Cafe Manager Name Role Phone Keiko Reddy MD Primary Care Provider [phone] Reason for Visit * Reason Comments Hospital [...] Expiration Date Visits Re quested Visits Authorized [id number] 1 1 Encounter Details Date Type Department Care Team (Late st Contact Info) Description 12/20/2017 7:30 AM EDT - 12/20/2017 11:00 AM EDT [place] [address] Tete Talamantes MD [facility] [place] [address] @OPEN TREATMENT, ACETABULAR FX (WRVU 25.41) Social History Tobacco Use Types Packs/Day Years [...] Daphne Pickard Patient Age: 52 y.o. Language: Central African Race: White Ethnicity: Not nor Admit date: [...] 11:00 AM Heather Colon PA [facility] [address] [place] [address] Inpatient Provider Contact Information: Reinaldo Romero MD Orthopedics: [phone] After hours and weekends, call [facility] Conference Interpreter, , and have the Orthopedic resident paged. [...] Tete Talamantes MD - Primary ?* Kimani Dobson MD ?* Joyce Parra MD Procedure(s) (LRB): [...] did well post- operatively. On POD#1 the WARDROBE SPECIALTY WORKER was discontinued and the patient was started [...] signs and determined safe for discharge to snf facility. Vital Signs at Discharge: Weight: Wt Readings from Last 1 Encounters: 12/14/18 74.8 kg (165 lb) Height: Ht Readings from Last 1 Encounters: 12/14/18 165.1 cm (5' 5) HC: HC Readings [...] pain controlled on oral medications. Discharge to: Custodial Facility [facility] Address: [address] [place] [address] [place] [address] Updated Allergies/ADRs: No Known Allergies Immunizations Given [...] Activity: Non weight bearing bilateral lower extremities. [place] Brace locked in extension right lower extremity. May use right upper casted arm to assist with transfers. Will need slide board orlift to transfer from bed to chair/wheelchair with staff assistance. When reclining in bed, may open the Bishnu Brace 1-2 times a day to inspect the skin. Re-secure the Bishnu after. 3. Diet: Regular but increase fluids and fiber while on narcotic pain meds 4. [place]/Sutures: Absorbable sutures right lower leg and upper arm. Removal not needed. [place] left hip to be removed in 14 [...] with waterproof dressing until zuleyka are removed. [place] plastic bag taped at the top over the right lower extremity Bishnu brace should be done to keep the [place] and wound dry. DO NOT submerge the [...] When reclining in bed, may open the [place] Brace 1-2 times a day to inspect the skin. Re- secure the Cambridge after. 3. Remember to use a slide [...] bowel movement. You can also take an jahi-jno-gkpamnb medication, Miralax if needed to combat constipation. [...] with waterproof dressing until zuleyka are removed. [place] plastic bag taped at the top over the right lower extremity Cambridge brace should be done to keep the [place] and wound dry. DO NOT submerge the [...] skin and wound problems. Call your doctor ([phone]) if you develop: 1. Fever greater than [...] 1. You will have follow-up appointments at [facility] as indicated in Future Appointment and Orders. Future Appointments Date Time Provider Department Center 01/04/2018 7:30 AM [facility] DX ROOM 9 [facility] 01/04/2018 7:45 AM [facility] DX ROOM 9 [facility] 01/04/2018 8:00 AM [facility] DX ROOM 9 [facility] 01/04/2018 9:45 AM [facility] DX ROOM 3 [facility] 01/04/2018 10:00 AM [facility] DX ROOM 3 [facility] 01/04/2018 10:15 AM [facility] DX ROOM 3 [facility] 01/04/2018 11:00 AM Heather Colon PA [facility] If you have questions or concerns: [...] AM [facility] DX ROOM 9 [facility] [place] [phone] Please go to Manager Commodities Area 3T ([place] Location). 01/04/2018 7:45 AM [facility] DX RO[facility] 9 [facility] [place] [phone] Please go to Manager Commodities Area 3T ([place] Location). 01/04/2018 8:00 AM [facility] DX RO[facility] 9 [facility] [place] [phone] Please go to Manager Commodities Area 3T ([place] Location). 01/04/2018 9:45 AM [facility] DX RO[facility] 3 [facility] [place] [phone] Please go to Manager Commodities Area 3T ([place] Location). 01/04/2018 10:00 AM [facility] DX RO[facility] 3 [facility] [place] [phone] Please go to Manager Commodities Area 3T ([place] Location). 01/04/2018 10:15 AM [facility] DX ROOM 3 [facility] [place] [phone] Please go to Manager Commodities Area 3T ([place] Location). 01/04/2018 11:00 AM Heather Colon PA [facility]opaed[facility] at [place] [phone] Future Orders Complete By Expires Full code [...] discussion: Primary Care Provider: Keiko Reddy MD [phone] Discharge References/Attachments INDWELLING URINARY CATHETER CARE: GENERAL INFO (GAMBIAN) documented in this encounter Discharge Instructions * Patient Instructions* Kathy Preston PA - 12/15/2017 11:04 AM EDT Orthopedic Surgery Discharge Instructions Activity level: 1. You are Non-weight bearing on both of your legs. 2. Keep the Cambridge Brace on your right leg locked in extension. When reclining in bed, may open the [place] Brace 1-2 times a day to inspect the skin. Re- secure the Bishnu after. 3. Remember to use a slide [...] bowel movement. You can also take an hnhq-ttx-wqrhqln medication, Miralax if needed to combat constipation. [...] with waterproof dressing until zuleyka are removed. [place] plastic bag taped at the top over the right lower extremity Cambridge brace should be done to keep the [...] skin and wound problems. Call your doctor ([phone]) if you develop: 1. Fever greater than [...] 1. You will have follow-up appointments at [facility] as indicated in Future Appointment and Orders. [...] 11:00 AM Heather Colon PA [facility] If you have questions or concerns: Wednesday through Wednesday, 8 AM - 5 PM, please call Wenceslao Burnett MD's office at . If it is after 5 PM or on the weekend, please call and ask to speak with the Orthopedic resident on-call. * Attachments The following attachments cannot be sent through Care Everywhere. * INDWELLING URINARY CATHETER CARE: GENERAL INFO (GAMBIAN) documented in this encounter Medications at Time [...] Birthdate: 1965 Admit date: 12/13/2017 Attending Physician: Renialdo Romero MD IV removed, site benign. Pts assessment remains unchanged from previous assessment. Discussed pain management with patient, pain tolerable. Pt medicated prior to discharge. Pt has all belongings. Pt received discharge summary. This was reviewed. All questions answered. Discharge packet and prescriptions given to ambulance service. Pt discharged to rehab facility via ambulance. Report called and given to HAYLEY Barkley at [facility]. * Kaley Torres RN - 12/24/2017 11:57 AM EDT Office of Care Management/Wound Treatment Rn Patient Name: Daphne Pickard : 1965 Patient has been offered a snf bed at [facility] for today. [facility] arranged for a 1:30 transport. Ambulance will need: Medicare ambulance form completed and signed (MD or Coin Machine Service Repairer RN/DIRECTOR OF SCIENTIFIC RESEARCH) Copy of patient demographics [place] or [place] Out of Hospital DNR/DNI order, if active No MD to MD report necessary Please call Nursing Report to , ask for flattening press operator. Info to accompany patient: Narcotic Prescriptions Copies of Medication Administration Records and IV sheets for past 10 days. Plan: Wound Treatment Rn will be available to the patient and Coin Machine Service Repairer-RN and/or Social Workerfor further assistance. Patient will be discharged to: [facility] [address] [place] [id number] KALEY TORRES RN, Wound Treatment Rn * Sol Boudreaux MD - 12/24/2017 4:44 [...] Brisk capillary refill distally, fingers warm/well-perfused. RLE: Cambridge brace in place, locked in extension. Mepilex [...] board transfers and left posterior hip precautions. Cambridge beace locked in extension to RLE. Patient [...] - Afebrile, VSS - Rehab referrals placed, [facility] going for auth Active Hospital Problems Diagnosis [...] (89-107)/(55-68) Intake/Output Summary (Last 24 hours) at 08/02/18 0620 Last data filed at 12/23/17 0600 [...] Brisk capillary refill distally, fingers warm/well-perfused. RLE: Bishnu brace in place, locked in extension. Mepilex [...] unit kitchen (yogurt, non- dairy milk, etc). Senior Sales Director and pt discussed protein. Pt stated she is consuming protein in her daily nutrition. Pt requested to cancel Boost Plus shakes and fruits at this time she had been receiving for snacks. Senior Sales Director canceled snacks per pt request. Nursing notes [...] Patient medically ready for rehab per provider. [facility] going for insurance authorization. Patient aware and agreable to plan. Will have to transport by ambulance because of injuries. PASSR signed. Packet completed. Sangeetha Page RN Case Manager, [facility] [phone] Pager #[phone] * Nir Bhatti 12/22/2017 5:55 AM EDT ORTHOPAEDIC SURGERY INPATIENT [...] Brisk capillary refill distally, fingers warm/well-perfused. RLE: Cambridge brace in place, locked in extension. Mepilex [...] board transfers and left posterior hip precautions. Cambridge beace locked in extension to RLE. Patient [...] pelvis, right wrist, right knee. * Roberto Almodovar PT - 12/21/2017 3:58 PM EDT PHYSICAL THERAPY CONTACT NOTE Attempted to see patient this afternoon. Pain not well controlled. Unable to perform treatment session. Will attempt again tomorrow. Roberto Almodovar PT, DPT 3966 Inpatient Rehabilitation * Sabrina Aranda RN - 12/21/2017 3:20 PM EDT Based on discussions with the multi-disciplinary healthcare team, the patient would benefit from skilled level of care at discharge. ?? I have met with the patient to discuss discharge planning needs. I reviewed the [facility], Office of Care Management letter from the Truck Operator pertaining to rehab referrals. I also reviewed a letter describing our affiliations within the [facility] and educated her abouther right to choose where referrals are placed. ?? I reviewed the different levels of rehab including SNF, swing, acute and LTAC with the patient. ?? The patient has been provided a list of facilities within her preferred geographic area. ?? I requested that the patient provide at least three choices for referral. ?? The patient requested referrals to: 1. [facility] [address] [address] ?? [phone] ?? I mentioned the option of hospitals which offer Swing Beds. Patient declined to provide additional referral choices of any level. ?? Expected date of discharge: Not yet determined. Pt continues to have pain control issues. Note routed to Wound Treatment Rn who will communicate referrals to facilities and provide any required information. Sabrina Aranda RN, BSN, Coin Machine Service Repairer Pager [phone] * Filippo Dickson MD - 12/21/2017 10:10 AM EDT Morning lab work now returned. Hgb 8.7 down from 10.9 pre-operatively for ORIF left acetabulum performed yesterday 12/20. Consistent with acute blood loss anemia following surgery. Will continue to follow. Remainder of CBC, BMP WNL. See progress note by Dr. Dobson for remainder of exam and assessment. Filippo Dickson MD Orthopaedic Surgery, PGY-1 Pager: [phone] * Kimani Dobson MD - 12/21/2017 5:58 [...] ??C (99.3 ??F)] Heart Rate: [79-98] Resp: [10-] BP: (85-143)/(51-86) Intake/Output Summary (Last 24 hours) [...] Brisk capillary refill distally, fingers warm/well-perfused. RLE: Bishnu brace in place, locked in extension. Mepilex [...] numbnessor tingling. Patient oriented to room, call ann, IS. RN will monitor patient. Kristyn Quiroz [...] hip precautions to LLE. Activity: NWB RLE, [place] brace locked in extension to RLE, TDWB in LLE with posterior hip precautions, can platform weight bear through RUE DVT prophylaxis: Lovenox 30 mg bid. Closure: Resorbable sutures to RLE, zuleyka to LLE Dressing: Mepilex to RLE and to LLE, RUE in SABC x 4 weeks Antibiotics: periop monieef Eliot Norton MD 12/20/2017 Associated attestation - Tete [...] 1240 Hand off to HAYLEY Simons 3 [place]. Patient to go to X-ray on route, [...] in RUE or BLE. Has beenNPO since [place] for OR today. Active Hospital Problems Diagnosis [...] Brisk capillary refill distally, fingers warm/well-perfused. RLE: Bishnu brace in place, locked in extension. Mepilex [...] for OR this AM Activity: NWB BLE. Cambridge beace locked in extension to RLE. Okay [...] Brisk capillary refill distally, fingers warm/well-perfused. RLE: Bishnu brace in place, locked in extension. Mepilex [...] ORIF left acetabulum tomorrow. Activity: NWB BLE. Cambridge beace locked in extension to RLE. Okay to platform weight bear through RUE. DVT prophylaxis: Lovenox 30mg BID . Closure: Resorbable sutures. Dressing: Mepilex to RLE. Right short arm bivalved cast x4 weeks. Antibiotics: Periop Ancef. Diet: NPO tonight for OR Wednesday. Peter Dueñas MD 12/19/2017 * Oliver Doshi - 12/18/2017 6:31 AM EDT ORTHOPAEDIC SURGERY [...] after midnight - NBO placed -Last BM: SUPERVISOR HISTOLOGY ?? RENAL: - trend BMP daily till [...] of 12/16) [] Incidental Findings Form Completed Jason Shannon, CENTRAL PROCESSING TECH 12/16/2017 Trauma pager [phone] Acute Care Surgery Attending Addendum: I have [...] minimumof two midnights or is on the [facility] inpatient only procedure list (status C) due [...] 12/16/2017 No future appointments. * Jason Shannon, CENTRAL PROCESSING TECH - 12/15/2017 1:58 PM EDT TRAUMA & [...] is a 52 y.o. female presents to [facility] s/p fall. Description of events leading up to injury includes she was riding a horse when he bucked her off. She landed on her right arm and legbut did not hit her head. No LOC. Immediately after the fall she had significant pain in right knee. Her fiance was able to call EMS. She was taken to [facility] where she was noted to have multiple orthopedic injuries including a right radial and right tibial plateau fracture. Her right arm was placed in a CARMEN splint. She was transferred to [facility] for further care and was hemodynamically normal [...] DIAGNOSTIC performed by Kimani Rojas MD at [facility] HOME MEDICATIONS: No prescriptions prior [...] lives with significant other Jignesh Louise in [place], [place]. In 2nd floor home. One step [...] as tolerated - NBO placed -Last BM: SUPERVISOR HISTOLOGY RENAL: - trend BMP daily till stable [...] Completed Jason Shannon APRN 12/15/2017 Trauma pager [phone] * Filippo Dickson MD - 12/15/2017 1:46 [...] Filippo Dickson MD Orthopaedic Surgery, PGY-1 Pager: [phone] * Katherin Beltrán DT - 12/15/2017 10:45 [...] per pt) and a vanilla Boost Plus. Senior Sales Director ordered said snack at time of visit. Pt stated she loves Oui yogurt. Senior Sales Director encouraged pt she can have family bring in favorite foods (yogurt) and place in unit refrigerator with name, room and date. Pt had room service menu at bedside. Writereducated pt on ordering procedure and timelines for hot foods. Senior Sales Director encouraged pt order 3 meals qd with a protein source. Informed pt of small portions are available should she request. Pt agreeable to dietary services open meal containers and cut up all foods daily. Senior Sales Director set up said request. Pt also agreeable to Boost Plus 2x/day at snack times with fresh fruit snacks added (green apple cut up and a banana). Senior Sales Director set up. Patient had no further questions [...] SABC x 4 weeks Antibiotics: periop ancef Filippo Dickson MD 12/15/2017 No future appointments. [...] 12/14/2017 No future appointments. * Priya Whitaker, JOSÉ LUIS - 12/14/2017 5:15 PM EDT Trauma and [...] Trauma and Acute Care Surgery Trauma pager [phone] * Bharath Caruso RN - 12/14/2017 4:20 PM EDT Patient returned from surgery via bed. All vitals WNL. Patient remains alert to voice and complaining of pain in right arm. PRN pain medication given. Cambridge brace in place to right leg and [...] up as appropriate. Peter Bynum OT Pager: [phone] * Rocio Sherman RN - 12/14/2017 9:18 [...] 12/20/2017 5:48 AM EDT 24-HOUR UPDATE Daphne Pickard was seen in the med/surg unit. [...] Daphne Pickard Level of Activation: alert MR#: [id number] [ ]Scene Call or [ x]Hospital Transfer : [id number] CC/MECHANISM OF INJURY: 52 y.o. Female s/p fall HISTORY OF PRESENT ILLNESS: Daphne Pickard is a 52 y.o. female presents to [facility] s/p fall. Description of events leading up to injury includes she was riding a horse when he bucked her off. She landed on her right arm and legbut did not hit her head. No LOC. Immediately after the fall she had significant pain in right knee. Her fiance was able to call EMS. She was taken to [facility] where she was noted to have multiple orthopedic injuries including a right radial and right tibial plateau fracture. Her right arm was placed in a CARMEN splint. She was transferred to [facility] for further care and was hemodynamically normal [...] DIAGNOSTIC performed by Kimani Rojas MD at [facility] ALLERGIES: Allergies Allergen Reactions ??? [...] Negative mcL Appearance UA Clear Clear Spec [place] UA >1.035 (H) 1.002 - 1.030 Color [...] DISPO: floor Padmaja Grady MD Trauma Surgery #[id number] 12/14/2017 ADDENDUM: I have independently seen and evaluated the patient. I agree with the assessment and planlisted above with the following additions: Daphne Pickard is a 52 y.o. female s/p fall [...] Updated report given to HAYLEY Frazier, 3 [place]. Pending transpo. * Bee Cardozo RN - 12/14/2017 1:55 AM EDT Report called to HAYLEY Frazier, 3 [place]. Pending admit after ortho completes splinting. * Kimberly Lin MD - 12/14/2017 12:23 AM EDT Daphne Pickard is a 52 y.o. female who arrives via EMS as trauma consult from [facility] History obtained by: hospital records, EMS, [...] tablet 10 mg, 10 mg, Oral, Daily, Elver Huddleston MD ??? sodium chloride 0.9 [...] EVALUATION: * Plan of Care - Christin Edwards RN - 12/23/2017 1:20 PM EDT Problem: [...] 45 - high Baseline mobility: up at orny Assistance: -Mechanical lift Supervision: -Hands-on for all transfers and ambulation Surveillance: -Bed Alarm/Chair Alarm -Masimo -Purposeful Rounding -Team Care -Bedside Nurse Knowledge Exchange CPG OUTCOME EVALUATION: Goal: Fall Prevention-Safe Patient Handling Outcome: Ongoing (Interventions Implemented as Appropriate) 12/23/171312 Activity Activity Type activity encouraged Activity Assistance [...] Ongoing (Interventions Implemented as Appropriate) 12/23/17 131 Safety Interventions Isolation Precautions standard precautions maintained [...] Ongoing (Interventions Implemented as Appropriate) 12/21/17 0759 12/22/17 165 Skin Integrity Impairment, Risk/Actual Skin Integrity Impairment, [...] Review Outcome: Ongoing (Interventions Implemented as Appropriate) 12/22/17 16512/22/172216 Coping/Psychosocial Plan Of Care Reviewed With -- [...] Pt educated on LB dressing technique w/ trauma director supine. Pt is extremely motivated and will greatly benefit from ongoing therapeutic interventions to achieve pt's and therapy goals. Please refer to associated flowsheet data listed below for treatment session details. Staff Recommendations: ?? Mechanical lift ?? Encourage OOB activity and participation in all self care tasks Anticipated Discharge Disposition: inpatient rehabilitation facility, snf facility Pager: [phone] Peter Bynum OT 12/22/2017 Occupational Therapy Rehabilitation Department 12/22/17 1448 Rehab Evaluation Document Type therapy note (daily [...] Living Environment Living Environment Comment Lives with heidi in their own home. Full flight of [...] Mobility Assessment/Treatment Assistive Device (Bed Mobility) leg senior field service engineer;other (see comments) Ctefjj-op-Zax [place] (Bed Mobility) moderate assist (50% patient effort);2 person assist required Cpi-gl-Sstksu [place] (Bed Mobility) moderate assist (50% patient effort);2 person assist required Impairments (Bed Mobility) pain;ROM (range of motion) decreased;balance impaired;strength decreased Comment (Bed Mobility) Pt performed be dmobility w/ increased time, pt long sitting EOB w/ chair support LE Transfer Assessment/Treatment Bed-Chair [place] (Transfers) moderate assist (50% patient effort);2 person assist required Impairments (Transfers) pain;ROM (range of motion) decreased;strength decreased Comment (Transfers) Pt performed backward scoot from bed>w/c,assist w/ kim pad and support forLE. Increased time and increased pain noted Bathing Assessment/Training Position (Bathing) sitting [place] Level (Bathing) moderate assist (50% patient effort) Comment (Bathing) Pt required washed trunk, pt required assist to sponge bath her back and LE Upper Body Dressing Assessment/Training Position (UB Dressing) sitting [place] Level (UB Dressing) set up required;supervision required [...] protect/position healing structures Wear Schedule (Orthosis) wear maritime officer Adjustment Comment (Orthosis) no adjustment Plan of [...] (TBD, W/C) Anticipated Discharge Disposition inpatient rehabilitation facility;snf facility * Plan of Care - Roberto [...] lift to commode/chair Anticipated Discharge Disposition: (S) snf facility Roberto Almodovar PT Pager: [phone] Inpatient Physical Therapy 12/22/17 1444 Rehab Evaluation Document Type therapy note (daily [...] Mobility Assessment/Treatment Assistive Device (Bed Mobility) leg senior field service engineer;draw sheet (HOB elevated ) Smelfv-cp-Lhw [place] (Bed Mobility) moderate assist (50% patient effort);2 person assist required;verbal cues required Impairments (Bed Mobility) ROM (range of motion) decreased;strength decreased;flexibility decreased;pain Comment (Bed Mobility) supine>long sitting; increased time; extra assist needed; long sitting atEOB; feet supported on a chair with pillows Scoot/Bridge [place] (Bed Mobility) moderate assist (50% patient effort);2 person assist required;verbal cues required Safety Issues (Bed Mobility) decreased use of arms for pushing/pulling;decreased use of legs for bridging/pushing Transfer Assessment/Treatment Bed-Chair [place] (Transfers) moderate assist (50% patient effort);2 person assist required Eda-Xvlcl-Cse Assistive Device (Transfers) (backwards/forwards) Maintain Weight Bearing [...] to sit/sit to supine Bed Mobility Goal, [place] Level minimum assist (75% patient effort) Bed Mobility Goal, Assistive Device leg senior field service engineer Bed Mobility Goal, Date Goal Reviewed 12/22/17 Bed Mobility Goal, Outcome Achieved goal ongoing Transfer Training Goal Transfer Training Goal, Date Established 12/15/17 Transfer Training Goal, Time to Achieve 30 days Transfer Training Goal, Activity Type tqy-vm-quwry/xyjsu-vt-kjr Transfer Train Goal, [place] Level moderate assist (50% patient effort) Transfer [...] Needs at Discharge wheelchair Anticipated Discharge Disposition snf facility * Plan of Care - Cary Urrutia RN - 12/22/2017 6:59 AM EDT Problem: Skin Integrity Impairment, Risk/Actual (Adult) Goal: Identify Related Risk Factors and Signs and Symptoms Related risk factors and signs and symptoms are identified upon initiation of Human Response Clinical Practice Guideline (CPG) Outcome: Ongoing (Interventions Implemented as Appropriate) 12/21/17 0759 12/21/17 1723 Skin Integrity Impairment, Risk/Actual Skin Integrity Impairment, Risk/Actual: Related Risk Factors -- surgery/procedure;traumatic injury Signs and Symptoms (Skin Integrity Impairment) edema -- Goal: Skin Integrity/Wound Healing Patient will demonstrate the desired outcomes by discharge/transition of care. Outcome: Ongoing (Interventions Implemented as Appropriate) 12/21/17 172 Skin Integrity Impairment, Risk/Actual (Adult) Skin Integrity/Wound Healing making progress toward outcome Problem: Patient Care Overview Goal: Plan of Care Review Outcome: Ongoing (Interventions Implemented as Appropriate) 12/21/17 17212/21/172099 Coping/Psychosocial Plan Of Care Reviewed With -- [...] Control Outcome: Ongoing (Interventions Implemented as Appropriate) 12/21/17824 Safety Interventions Isolation Precautions standard precautions maintained Infection Prevention environmental surveillance performed;single patient room provided;rest/sleep promoted Coping Strategies Supportive Measures active listening utilized;relaxation techniques promoted;self-care encouraged;verbalization of feelings encouraged Goal: Interdisciplinary Rounds/Family Conf Outcome: Ongoing (Interventions Implemented as Appropriate) 12/21/171722 Interdisciplinary Rounds/Family Conf Participants nursing;patient Problem: Fracture Orthopaedic (Adult) Goal: Signs and Symptoms of Listed Potential Problems Will be Absent, Minimized or Managed (Fracture Orthopaedic) Signs and symptoms of listed potential problems will be absent, minimized or managed by discharge/transition of care (reference Fracture Orthopaedic (Adult) CPG). Outcome: Ongoing (Interventions Implemented as Appropriate) 12/21/17824 Fracture Orthopaedic Problems Assessed (Orthopaedic Fracture) all [...] (CPG) Outcome: Ongoing (Interventions Implemented as Appropriate) 12/21/17758 Skin Integrity Impairment, Risk/Actual Skin Integrity Impairment, [...] Review Outcome: Ongoing (Interventions Implemented as Appropriate) 12/21/17758 Coping/Psychosocial Plan Of Care Reviewed With patient Plan of Care Review Progress progress towards functional goals is fair OUTCOME EVALUATION NOTE: OUTCOME SUMMARY: Pt c/o 10 pain in left hip unrelieved by Oxycodone [...] clear, yellow urine.RUE arm cast intact.+CSMT. RLE Bishnu brace intact, mepilex dressings dry and intact. [...] Mutuality Outcome: Ongoing (Interventions Implemented as Appropriate) 12/21/17758 Individualization Patient Specific Preferences adequate pain control, [...] Ongoing (Interventions Implemented as Appropriate) 12/21/17 0759 Safety Interventions Isolation Precautions standard precautions maintained Infection Prevention rest/sleep promoted Coping Strategies Supportive Measures active listening utilized;positive reinforcement provided Goal: Discharge Needs Assessment Outcome: Ongoing (Interventions Implemented as Appropriate) 12/21/17 0759 Discharge Needs Assessment Concerns To Be Addressed [...] Ongoing (Interventions Implemented as Appropriate) 12/21/17 0759 Fracture Orthopaedic Problems Assessed (Orthopaedic Fracture) all Problems Present (Orthopaedic Fracture) pain * Op Note - Joyce Parra - 12/20/2017 11:01 AM EDT [facility] [place] Patient Name: Daphne Pickard : [id number] MR#: [id number] Case Date: 12/20/2017 ?? Surgeon: Surgeon(s) and [...] which had been applied preoperatively in accordancewith [facility] policy. Anesthesia was induced while the patient [...] surgical timeout was performed in accordance with [facility] policy. Site of intended incision was drawn [...] Implant Name Type Inv. Item Serial No. No Experience Lot No. LRB No. Used Action WIRE,K,THRDD GWRE,[id number] ([id number]) - [id number] IMPLANTS WIRE,K,THRDD GWRE,[id number] ([id number]) [facility] Left 1 Implanted and Explanted SCREW,CRTX,STAP,2.7X32MM ([id number]) - [id number] IMPLANTS SCREW,CRTX,STAP,2.7X32MM ([id number]) [facility] [place] 1 Implanted SCREW,CRTX,STAP,2.7X28MM ([id number]) - [id number] IMPLANTS SCREW,CRTX,STAP,2.7X28MM ([id number]) [facility] [place] 1 Implanted and Explanted SCREW,CRTX,STAP,2.7X26MM ([id number]) - [id number] IMPLANTS SCREW,CRTX,STAP,2.7X26MM ([id number]) [facility] [place] Left 1 Implanted PLATE,RECON.8H,3.5X94MM ([id number]) - [id number] IMPLANTS PLATE,RECON.8H,3.5X94MM ([id number]) [facility] Left 1 Implanted SCREW,CRTX,STAP,3.5X34MM ([id number]) - [id number] IMPLANTS SCREW,CRTX,STAP,3.5X34MM ([id number]) [facility] [place] Left 3 Implanted PIN,KWIRE,TROC 1 ED,NS,[id number] ([id number]) - [id number] IMPLANTS PIN,KWIRE,TROC 1 ED,NS,[id number] ([id number]) [facility] Left 2 Implanted and Explanted SCREW,CRTX,STAP,3.5X75MM ([id number]) - [id number] IMPLANTS SCREW,CRTX,STAP,3.5X75MM ([id number]) [facility] [place] Left 1 Implanted and Explanted SCREW,CRTX,STAP,3.5X38MM ([id number]) - [id number] IMPLANTS SCREW,CRTX,STAP,3.5X38MM ([id number]) [facility] [place] Left 1 Implanted and Explanted SCREW,CRTX,STAP,3.5X36MM ([id number]) - [id number] IMPLANTS SCREW,CRTX,STAP,3.5X36MM ([id number]) [facility] [place] Left 1 Implanted SCREW,CRTX,STAP,3.5X40MM ([id number]) - [id number] IMPLANTS SCREW,CRTX,STAP,3.5X40MM ([id number]) [facility] [place] Left 1 Implanted SCREW,CRTX,STAP,2.7X28MM ([id number]) - [id number] IMPLANTS SCREW,CRTX,STAP,2.7X28MM ([id number]) [facility] [place] Left 1 Implanted and Explanted SCREW,CRTX,STAP,3.5X28MM ([id number]) - [id number] IMPLANTS SCREW,CRTX,STAP,3.5X28MM ([id number]) [facility] [place] Left 1 Implanted Infection Bundle used? N/A [...] Operative Note Patient Name: Daphne Pickard : [id number] MR#: [id number] Case Date: 12/20/2017 Surgeon: Surgeon(s) and Role: [...] cast intact, no n/t. RLE dressing c/d/i. [place] locked in extension. Elevated throughout shift. +dp [...] assist with ADL's ? Surveillance [continuous indirect monitoring]:?Tiffany, Purposeful Rounding, Nurse Knowledge Exchange ? Patient-specific [...] Outcome: Ongoing (Interventions Implemented as Appropriate) 12/19/17 215 Safety Interventions Isolation Precautions standard precautions maintained [...] Outcome: Ongoing (Interventions Implemented as Appropriate) 12/19/17 09 Safety Interventions Isolation Precautions standard precautions maintained [...] Ongoing (Interventions Implemented as Appropriate) 12/16/17 1641 12/18/172022 Coping/Psychosocial Plan Of Care Reviewed With -- patient;significant other Plan of Care Review Progress progress toward functional goals as expected -- OUTCOME EVALUATION NOTE: OUTCOME SUMMARY: Patient progressing towards d/c goals appropriately at this time. Patient's pain adequately controlled with scheduled medications. Pt in chair at start of shift, lifted back to bed, tolerated well. RUE cast intact, no n/t. RLE dressing c/d/i. [place] locked in extension. Elevated throughout shift. +dp [...] Control Outcome: Ongoing (Interventions Implemented as Appropriate) 12/18/172022 Safety Interventions Isolation Precautions standard precautions maintained [...] Handling Outcome: Ongoing (Interventions Implemented as Appropriate) 12/17/173 12/18/17 0758 Albarran Fall Risk History of Falling [...] cast intact, no n/t. RLE dressing c/d/i. [place] locked in extension. Elevated throughout shift. +dp [...] assist with ADL's Surveillance [continuous indirect monitoring]: Tiffany, Purposeful Rounding, Nurse Knowledge Exchange Patient-specific fall [...] of bed Precautions Comments: Non-weight bearing BLE. Bishnu brace on RLE, [...] tasks Anticipated Discharge Disposition: inpatient rehabilitation facility, snf facility Pager: [phone] Pteer Bynum, OT 12/17/2017 Occupational Therapy Rehabilitation Department 12/17/17 1221 Rehab Evaluation Document Type therapy note (daily [...] of bed Precautions Comments Non-weight bearing BLE. [place] brace on RLE, locked in extension at all times. Non-weight bearing RUE. can platform weight bear through RUE Treatment Number OT 2 Right Upper Extremity (Weight Bearing Status) (platform WB) Left Lower Extremity (Weight Bearing Status) nonweight bearing Right Lower Extremity (Weight Bearing Status) nonweight bearing Living Environment Patient population Adult Living Environment Living Environment Comment Lives with heidi in their own home. Full flight of [...] Mobility Assessment/Treatment Assistive Device (Bed Mobility) leg senior field service engineer;draw sheet Pxfowi-zu-Bsw [place] (Bed Mobility) minimum assist (75% patient effort);moderate assist (50% patient effort);verbal cues required Impairments (Bed Mobility) ROM (range of motion) decreased;strength decreased;pain Comment (Bed Mobility) Pt performed bed mobility w/ assist for RLE and us of drawsheet to get into position for backward scoot transfer. Transfer Assessment/Treatment Bed-Chair [place] (Transfers) minimum assist (75% patient effort);moderate assist (50% patienteffort);verbal cues required Ndo-Vvagd-Mpp Assistive Device (Transfers) (none) Impairments (Transfers) pain;ROM [...] Discharge (TBD) Anticipated Discharge Disposition inpatient rehabilitation facility;snf facility * Plan of Care - Roberto [...] of bed Precautions Comments: Non-weight bearing BLE. [place] brace on RLE, locked in extension at [...] chair for meals Anticipated Discharge Disposition: (S) snf facility Roberto Almodovar, PT Pager: [phone] Inpatient Physical Therapy 12/17/17 8138 Rehab Evaluation Document Type therapy note (daily [...] of bed Precautions Comments Non-weight bearing BLE. [place] brace on RLE, locked in extension at all times. Non-weight bearing RUE. can platform weight bear through RUE Treatment Number PT 2 Pain Scale/Rating Pain Assessment Scale Numbers (Numeric Rating Pain Scale) Pain Level 8 Mobility Assessment/Training Additional Documentation Transfer Assessment/Treatment (Group) Bed Mobility Assessment/Treatment Assistive Device (Bed Mobility) leg senior field service engineer;draw sheet Ganbzm-wa-Iqc [place] (Bed Mobility) minimum assist (75% patient effort);moderate assist (50% patient effort) Comment (Bed Mobility) moving around in bed to sit up on edge with back on the edge Scoot/Bridge [place] (Bed Mobility) minimum assist (75% patient effort);moderate assist (50% patient effort) Transfer Assessment/Treatment Bed-Chair [place] (Transfers) minimum assist (75% patient effort);moderate assist (50% patienteffort) Bqq-Wmocx-Vyj Assistive Device (Transfers) (backwards/forwards) Comment (Transfers) backwards/forwards transfer on R side of bed back into recliner chair; use of leg senior field service engineer; vc's for sequencing and technique Orthotics/Prosthetics Additional [...] to sit/sit to supine Bed Mobility Goal, [place] Level minimum assist (75% patient effort) Bed Mobility Goal, Assistive Device leg senior field service engineer Bed Mobility Goal, Date Goal Reviewed 12/17/17 Bed Mobility Goal, Outcome Achieved goal ongoing Transfer Training Goal Transfer Training Goal, Date Established 12/15/17 Transfer Training Goal, Time to Achieve 30 days Transfer Training Goal, Activity Type bbd-yz-gtyyx/mzbxn-jo-abm Transfer Train Goal, [place] Level moderate assist (50% patient effort) Transfer [...] Needs at Discharge wheelchair Anticipated Discharge Disposition snf facility * Plan of Care - Arabella Nuñez RN - 12/17/2017 1:37 AM EDT Problem: Patient Care Overview Goal: Plan of Care Review Outcome: Ongoing (Interventions Implemented as Appropriate) 12/16/17 1641 12/16/17 2041 Coping/Psychosocial Plan Of Care Reviewed With -- [...] Hands on Surveillance [continuous indirect monitoring]: Masimo, purposeful rounding Patient-specific fall prevention interventions for [...] Plan of Care Review 12/15/17 1713 12/16/17 0800 Coping/Psychosocial Plan Of Care Reviewed With -- [...] and ADLs]: Hands-on Surveillance [continuous indirect monitoring]: Tiffany, hourly rounding Patient-specific fall prevention interventions for [...] chair when able Anticipated Discharge Disposition: (S) snf facility Roberto Almodovar, PT Pager: [phone] Inpatient Physical Therapy 2017 PT Evaluation Code [...] evaluation Total Evaluation Minutes, Physical Therapy 50 (eval, TEF) Patient Effort good Symptoms Noted During/After Treatment [...] Environment Living Environment Comment Lives with her heidi in their home in [place], [place]. 18 steps to enter the home. Has 3 horses at home, 4 labs and 2 cats Functional Level Prior Prior Functional Level Comment Reports she has a sister that is a PT. may be able to obtain DME from family members. 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 Vital Signs SpO2 97 [...] Mobility Assessment/Treatment Assistive Device (Bed Mobility) leg senior field service engineer;draw sheet;bed rails (elevated HOB) Amliwk-ch-Pkp [place] (Bed Mobility) minimum assist (75% patient effort);2 person assist required;moderate assist (50% patient effort) Fbn-ko-Tgnczm [place] (Bed Mobility) maximum assist (25% patient effort);2 person assist required;verbal cues required Impairments (Bed Mobility) flexibility decreased;pain;ROM (range of motion) decreased;strength decreased Comment (Bed Mobility) increased time 2/2 pain; able to move LLE not not RLE; vc's for technique; use of draw sheet Scoot/Bridge [place] (Bed Mobility) minimum assist (75% patient effort) [...] protect/position healing structures Wear Schedule (Orthosis) wear maritime officer Plan of Care Review Plan Of Care Reviewed With patient Physical Therapy Goal Types Physical Therapy Goal Types Bed Mobility Goal (Group);Transfer Training Goal (Group);Physical Therapy Goal (Group) Bed Mobility Goal Bed Mobility Goal, Date Established 12/15/17 Bed Mobility Goal, Time to Achieve 30 days Bed Mobility Goal, Activity Type roll left/roll right;supine to sit/sit to supine Bed Mobility Goal, [place] Level minimum assist (75% patient effort) Bed Mobility Goal, Assistive Device leg senior field service engineer Transfer Training Goal Transfer Training Goal, Date Established 12/15/17 Transfer Training Goal, Time to Achieve 30 days Transfer Training Goal, Activity Type bkg-jg-zapbh/vxrkj-wi-xrd Transfer Train Goal, [place] Level moderate assist (50% patient effort) Transfer [...] Needs at Discharge wheelchair Anticipated Discharge Disposition snf facility General Interventions Additional Documentation Planned Therapy [...] all times) Precautions Comments: Non-weight bearing BLE. Bishnu brace on RLE, locked in extension at all times. Non-weight bearing RUE. can platform weight bear through RUE Assessment: Pt has been seen for occupational therapy evaluation, please refer to associated flowsheet data listed below for details. Daphne Pcikard presents with the following performance skill deficits [...] tasks Anticipated Discharge Disposition: inpatient rehabilitation facility, snf facility Pager: [phone] Peter Bynum OT 12/15/2017 Occupational Therapy Rehabilitation Department 2017 [...] all times) Precautions Comments Non-weight bearing BLE. [place] brace on RLE, locked in extension at all times. Non-weight bearing RUE. can platform weight bear through RUE Treatment Number OT 1 Living Environment Patient population Adult Living Environment Living Environment Comment Lives with fiancee in their own home. Full flight of [...] (Bed Mobility) bed rails;draw sheet (HOB raised) Rtzwdi-na-Zmb [place] (Bed Mobility) minimum assist (75% patient effort);2 person assist required;verbal cues required;moderate assist (50% patient effort) Iku-fw-Eikegz [place] (Bed Mobility) maximum assist (25% patient effort);2 [...] Pt issued and educated on use of trauma director. Additional Documentation Bathing Assessment/Training (Group);Upper Body Dressing Assessment/Training (Group);Grooming Assessment/Training (Group);IADL Assessment/Training: Comment (Row) Bathing Assessment/Training Assistive Devices (Bathing) (bath wipes) Position (Bathing) sitting [place] Level (Bathing) moderate assist (50% patient effort) Impairments (Bathing) pain;ROM (range of motion) decreased;strength decreased;balance impaired Comment (Bathing) Pt performed sponge bath to her anterior thorax/abdomen. Pt assisted w/ her back,LE, and tina-care. Pt assisted donning shampoo cap and w/ application. Upper Body Dressing Assessment/Training Position (UB Dressing) sitting [place] Level (UB Dressing) minimum assist (75% patient effort) Impairments (UB Dressing) pain;ROM (range of motion) decreased;strength decreased;balance impaired Comment (UB Dressing) Pt assisted hosea wilcox. Plan of Care Review Plan Of Care [...] (TBD) Anticipated Discharge Disposition inpatient rehabilitation facility, snf facility General Therapy Interventions Additional Documentation Planned [...] is interested and I will bring two [facility] for she and her heidi to work on while here. Current Coping/Education/Information Needs: no Current Functional Ability: dependant Functional Status Prior to Admission: completely independent with ADLs, working, driving, active Home Environment: Lives with heidi in their own home. Full flight of stairs to main living area. Then three stairs into bathroom. Has horses, three labradors. Social & Family Supports/Community Resources: Also has three sisters who are nurses and eager to advise, support. One sister works at [employer]. Her mother lives in the local area also. Behavioral Health History: no Substance Use/Abuse: none Other Pertinent/Service Specific Information: Patient will have FMLA and STD paperwork to have completed. Heidi bringing that when he comes to visit today. Health/Prescription Coverage: Primary Insurance: CIGNA Secondary Insurance: N/A Prescription Coverage: CIGNA Preferred Pharmacy: none Other: none Primary Care Provider: Keiko Reddy MD [phone] Patient/Caregiver Goals of Treatment: Home when medically able. Potential Needs for Transition of Care: Rehab/SNF: patient anticipates she will need rehab/snf. Her preference [facility] be [facility] [place] [facility]. Home Health: yes at some [...] transition of care planning. SHERI UPTON Pager: [phone] * Plan of Care - Jamar Wolf RN - 12/15/2017 4:24 AM EDT Problem: Patient Care Overview Goal: Plan of Care Review 12/14/17 0601 12/14/17 2300 Coping/Psychosocial Plan Of Care Reviewed With -- [...] OUTCOME EVALUATION: Goal: Individualization & Mutuality 12/14/17 4571 Mutuality/Individual Preferences What Anxieties, Fears or Concerns Do You Have About Your Health or Care? none What Questions Do You Have About Your Health or Care? when can I have pain meds? What Information Would Help Us Give You More Personalized Care? none Individualization Patient Specific Goals pain management Goal: Fall Prevention-Safe Patient Handling 12/14/17 0752 12/14/17 1500 12/14/17 2300 Albarran Fall Risk History of Falling 0 [...] Activity Assistance Provided -- Goal: Infection Control 12/14/17 07512/14/172299 Safety Interventions Isolation Precautions standard precautions maintained -- Infection Prevention barrier precautions utilized;environmental surveillance performed;rest/sleep promoted;single patient room provided -- Coping Strategies Supportive Measures -- active listening utilized Goal: Discharge Needs Assessment 12/14/17 0411 Discharge Needs Assessment Concerns To Be Addressed no discharge needs identified;denies needs/concerns at this time Readmission Within The Last 30 Days no previous admission in last 30 days * Op Note - Reinaldo Romero MD - 12/14/2017 4:06 PM EDT [facility] [place] Patient Name: Daphne Pickard : [id number] MR#: [id number] Case Date: 12/14/2017 Surgeon: Surgeon(s) and Role: [...] is a 52-year-old female who presented [facility] with signs symptoms and radiographic findings consistent [...] in the preoperative holding area where green [place] reg[place] was placed on the correct operative right [...] incision. A timeout was held according to [facility] protocol confirming thecorrect side site's and procedures. [...] patient's leg was then placed into a [place] brace locked in extension. Attention was then [...] Implant Name Type Inv. Item Serial No. No Experience Lot No. LRB No. Used Action PLATE,VA-LCP,TIB,4H,RT,87MM ([id number]) - [id number] IMPLANTS PLATE,VA- LCP,TIB,4H,RT,87MM ([id number]) [employer] - DEPUY SYNT Right 1 Implanted SCREW,CRTX,STAP,3.5X40MM ([id number]) - [id number] IMPLANTS SCREW,CRTX,STAP,3.5X40MM ([id number]) [employer] - DEPUY SYNT Right 1 Implanted SCREW,OMER,ANG,LCK,3.5X65MM ([id number]) - [id number] IMPLANTS SCREW,OMER,ANG,LCK,3.5X65MM ([id number]) [employer], [employer]. - DEPUY SYNT Right 3 Implanted SCREW,OMER,ANG,LCK,3.5X60MM ([id number]) - [id number] IMPLANTS SCREW,OMER,ANG,LCK,3.5X60MM ([id number]) [employer] - DEPUY SYNT Right 1 Implanted SCREW,OMER,ANG,LCK,3.5X46MM ([id number]) - [id number] IMPLANTS SCREW,OMER,ANG,LCK,3.5X46MM ([id number]) [employer] - DEPUY SYNT Right 1 Implanted SCREW,OMER,ANG,LCK,3.5X50MM ([id number]) - [id number] IMPLANTS SCREW,OMER,ANG,LCK,3.5X50MM ([id number]) [employer] - DEPUY SYNT Right 1 Implanted SCREW,OMER,ANG,LCK,3.5X56MM ([id number]) - [id number] IMPLANTS SCREW,OMER,ANG,LCK,3.5X56MM ([id number]) [employer] - DEPUY SYNT Right 1 Implanted SCREW,OMER,ANG,LCK,3.5X32MM ([id number]) - [id number] IMPLANTS SCREW,OMER,ANG,LCK,3.5X32MM ([id number]) [employer] - DEPUY SYNT Right 1 Implanted SCREW,CNCL,STAP,P-T,3.5X70MM ([id number]) - [id number] IMPLANTS SCREW,CNCL,STAP,P- T,3.5X70MM ([id number])[employer] - DEPUY SYNT Right 1 Implanted BONE,CRUSHED,CANCELLOUS,30CC ([id number]) (AUTOREQ) - [id number] IMPLANTS BONE,CRUSHED,CANCELLOUS,30CC([id number]) (AUTOREQ) [facility] Right 1 Implanted PLATE,VLRDSTL,LCP,6H,RT,2.4MM ([id number]) - [id number] IMPLANTS PLATE,VLRDSTL,LCP,6H,RT,2.4MM ([id number]) [employer] - DEPUY SYNT Right 1 Implanted PLATE,RDCTN,WIRTHRD TIP,1.25MM ([id number]) - [id number] IMPLANTS PLATE,RDCTN,WIRTHRD TIP,1.25MM ([id number]) [employer] - DEPUY SYNT Right 3 Implanted and Explanted SCREW,VA,LCK,STAR,2.4X20MM ([id number]) - [id number] IMPLANTS SCREW,VA,LCK,STAR,2.4X20MM ([id number]) DEPUY [employer] - DEPUY SYNT Right 3 Implanted SCREW,VA,LCK,STAR,2.4X14MM ([id number]) - [id number] IMPLANTS SCREW,VA,LCK,STAR,2.4X14MM ([id number]) [employer] - DEPUY SYNT Right 1 Implanted SCREW,VA,LCK,STAR,2.4X18MM ([id number]) - [id number] IMPLANTS SCREW,VA,LCK,STAR,2.4X18MM ([id number]) [employer] - DEPUY SYNT Right 1 Implanted SCREW,CRTX,STAP,STAR,2.7X12MM ([id number]) - [id number] IMPLANTS SCREW,CRTX,STAP,STAR,2.7X12MM ([id number]) [employer] - DEPUY SYNT Right 3 Implanted Infection Bundle used? No Attestation: Case Date: 12/14/2017 I was present and I participated during the entire procedure (does not need to include opening and closing). Reinaldo Romero MD 12/14/2017 * Brief Op Note - Reinaldo Romero MD - 12/14/2017 1:38 PM EDT Brief Operative Note Patient Name: Daphne Pickard : [id number] MR#: [id number] Case Date: 12/14/2017 Surgeon: Surgeon(s) and Role: [...] and ADLs]: Hands-on Surveillance [continuous indirect monitoring]: Tiffany, hourly rounding Patient-specific fall prevention interventions for sensory deficits provided, if applicable: [X] N/A * Consult Note - Nir Bhatti - 12/14/2017 1:09 AM EDT Orthopaedic Surgery [...] following the injury She was taken to [facility] where imaging revealed right distal radius fracture, right tibial plateau fracture and left posterior wall acetabular fracture. She was then transferred to [facility] [place] management. Patient denies numbness, tingling, weakness, head strike, LOC, or other injuries. Past Medical History: Patient Active Problem List Diagnosis Code ??? Trauma T14.90XA Past Surgical History: Past Surgical History: Procedure Laterality Date ??? PRO COLONOSCOPY, DIAGNOSTIC N/A 06/25/2017 COLONOSCOPY, DIAGNOSTIC performed by Kimani Rojas MD at [facility] END[facility]COPY Allergies Allergen Reactions ??? Gabapentin [...] distributions Motor intact shoulder abduction, elbow flexion/extension, set illustrator, EPL, AIN, IO Brisk capillary refill distally [...] (5/5) shoulder abduction, elbow flexion/extension, wrist flexion/extension, set illustrator, EPL,AIN, IO Brisk capillary refill distally 2+ [...] the patient elected to proceed. Per the [facility] Bed Side Check List: the patient was [...] and treatment. Please call the orthopaedic resident provider relations rep with any questions or concerns. ?? Nir Bhatti MD Orthopaedic Surgery Pager: [phone] documented in this encounter Plan of Treatment Upcoming Encounters Date Type Department Care Team (Late st Contact Info) Description 01/31/2024 9:15 AM EDT Appointment Hematology [place] [address] 01/31/2024 10:20 AM EDT Office Visit [place] [address] Rebecca Small MD [facility] [place] [address] 08/01/2024 11:30 AM EDT Office Visit Dermatology at [facility] [address] [place] [address] Phan Engle MD [facility] DR [place] [address] Scheduled Orders Name Type Priority Associated Diagnoses [...] 12/20/2017 8:08 AM EDT TYPE AND SCREEN (MC/CGP/ZAHIDA) STAT 12/20/2017 8:08 AM EDT MODIFIER PELVIC [...] 6:55 AM EDT DIFFERENTIAL, AUTOMATED Routine 12/18/19 6:55 AM EDT CBC (WITH DIFF) Routine [...] OR USE Routine 12/14/2017 11:[address] KNEE WO CONTRAST RIGHT STAT 12/14/2017 [...] IMPLANTABLE DEVICES SCAN 12/14/2017 12:00 AM EDT MANAGER SQL SCAN 12/14/2017 12:00 AM EDT HEMOGRAM STAT [...] AND SPINE STAT 12/13/2017 12:00 AM EDT documented in this encounter [...] EDT Unchanged alignment of the uncomplicated cortical [id number] fixation of the tibial plateau fracture without [...] the depressed lateral tibial plateau fracture with religious of near-anatomic alignment. No radiographic evidence of [...] the depressed lateral tibial plateau fracture with religious ofnear-anatomic alignment. No radiographic evidence of hardware complication. The fracturelines remain visible on the AP view. Interval resolution of the postoperative soft tissue air. IMPRESSION Unchanged alignment of the uncomplicated cortical [id number] fixationof the tibial plateau fracture without radiographic [...] 9:56 AM EDT) Neutrophils % 57.1 % [facility] Neutr Abs (ANC) 3.99 1.70 - 6.10 x10(3)/[facility] Lymphocytes % 27.7 % [facility] Lymphocytes Abs 1.9 0.9 - 3.2 x10(3)/[facility] Monocytes % 13.5 % [facility] Monocyte Abs 0.9 0.3 - 0.9 x10(3)/[facility] Eosinophils % 0.9 % [facility] Eosinophils Abs 0.1 0.0 - 0.4 x10(3)/[facility] Basophils % 0.4 % [facility] Basophils Abs 0.0 0.0 - 0.1 x10(3)/[facility] Immature Gran % 0.40 % [facility] Comment: Immature granulocytes(IG's)percentage and absolute count will include metamyelocytes, myelocytes, and promyelocytes. Blood smears from CBCs yielding IG's will be scanned manually for concordance. If this scan disagrees with the automated IG or if promyelocytes are noted, a manual differential will be performed. Tammi Gran Abs 0.03 0.00 - 0.04 x10(3)/[facility] Blood specimen (specimen) 12/22/2017 9:56 AM EDT 12/22/2017 10:10 AM EDT Narrative Resulting Agency Comment Spec In Lab Vani Hook APRN HEMATOLOGY ORDERABL ES [facility] [place] [address] * (ABNORMAL) Hemogram (12/22/2017 9:56 AM EDT) WBC 7.0 4.0 - 9.5 x10(3)/[facility] RBC 2.92(L) 4.00 - 5.21 x10(6)/[facility] Hemoglobin 9.1(L) 11.7 - 15.5 gm/dL [facility] Hematocrit 27.1(L) 35.7 - 45.8 % [facility] MCV 92.8 82.6 - 94.4 fL [facility] MCH 31.2 27.1 - 32.0 pg [facility] MCHC 33.6 31.7 - 35.0 gm/dL [facility] Platelets 309 145 - 357 x10(3)/[facility] RDWSD 38.9 37.0 - 46.0 [facility] LABORATORY RDWCV 11.5 11.5 - 14.1 % [facility] MPV 8.4 7.6 - 12.9 [facility] nRBC % Auto 0.0 % [facility] nRBC Abs Auto 0.000 0.000 - 0.000 x10(3)/[facility] Blood specimen (specimen) 12/22/2017 9:56 AM EDT 12/22/2017 10:10 AM EDT Narrative Resulting Agency Comment Spec In Lab Vani Hook APRN HEMATOLOGY ORDERABL ES Performing Organization Address City/State/[facility] Co de Phone Number [facility] [place] [address] * (ABNORMAL) Basic Metabolic Panel (non-fasting) (12/22/2017 9:56 AM EDT) Glucose Lvl 162 65 - 199 mg/dL [facility] Comment:Diabetes: >=200 mg/d L plus symptoms BUN 11 8 - 18 mg/dL [facility] Creatinine 0.73 0.70 - 1.20 mg/dL [facility] Sodium 135 135 - 145 mmol/L [facility] Potassium 4.0 3.5 - 5.0 mmol/L [facility] Comment: Please note: ??Patients with WBC >100,000 may have falsely elevated Potassium levels. ??For accurate Potassium quantification in these patients send serum separator tube (gold top) for subsequent determinations. ??Contact the Clinical Chemistry Laboratory if there are any questions. Chloride 97(L) 98 - 107 mmol/L [facility] CO2 25 22 - 31 mmol/L [facility] Anion Gap 13 5 - 15 mmol/L [facility] Calcium 8.7 8.5 - 10.5 mg/dL [facility] Estimated GFR 95 >=60 mL/min/1. 73 m?? [facility] Comment: The eGFR was calculated using the CKD-EPI equation. As with all creatinine based estimates of kidney function, eGFR values calculated with the CKD-EPI equation are not accurate in patients with acute kidney failure, extremes of body mass or the acutely ill. [email or web address] eGFR 110 >=60 mL/min/1. 73 m?? [facility] Comment: The eGFR was calculated using the CKD-EPI equation. As with all creatinine based estimates of kidney function, eGFR values calculated with the CKD-EPI equation are not accurate in patients with acute kidney failure, extremes of body mass or the acutely ill. [email or web address] Blood specimen (specimen) 12/22/2017 9:56 AM EDT 12/22/2017 10:10 AM EDT Narrative Resulting Agency Comment Spec In Lab Vani Hook APRN CHEMISTRY ORDERABLE S [facility] [place] [address] * (ABNORMAL) Basic Metabolic Panel (non-fasting) (12/21/2017 7:04 AM EDT) Glucose Lvl 90 65 - 199 mg/dL [facility] Comment:Diabetes: >=200 mg/d L plus symptoms BUN 15 8 - 18 mg/dL [facility] Creatinine 0.73 0.70 - 1.20 mg/dL [facility] Sodium 138 135 - 145 mmol/L [facility] Potassium 3.9 3.5 - 5.0 mmol/L [facility] Comment: Please note: ??Patients with WBC >100,000 may have falsely elevated Potassium levels. ??For accurate Potassium quantification in these patients send serum separator tube (gold top) for subsequent determinations. ??Contact the Clinical Chemistry Laboratory if there are any questions. Chloride 100 98 - 107 mmol/L [facility] CO2 25 22 - 31 mmol/L [facility] Anion Gap 13 5 - 15 mmol/L [facility] Calcium 8.4(L) 8.5 - 10.5 mg/dL [facility] Estimated GFR 95 >=60 mL/min/1. 73 m?? [facility] Comment: The eGFR was calculated using the CKD-EPI equation. As with all creatinine based estimates of kidney function, eGFR values calculated with the CKD-EPI equation are not accurate in patients with acute kidney failure, extremes of body mass or the acutely ill. [email or web address] eGFR 110 >=60 mL/min/1. 73 m?? [facility] Comment: The eGFR was calculated using the CKD-EPI equation. As with all creatinine based estimates of kidney function, eGFR values calculated with the CKD-EPI equation are not accurate in patients with acute kidney failure, extremes of body mass or the acutely ill. [email or web address] Blood specimen (specimen) 12/21/2017 7:04 AM EDT 12/21/2017 7:25 AM EDT Narrative Resulting Agency Comment Spec In Lab Reinaldo Romero MD CHEMISTRY ORDERABLES [facility] [place] [address] * (ABNORMAL) Hemogram (12/21/2017 7:04 AM EDT) WBC 6.8 4.0 - 9.5 x10(3)/[facility] RBC 2.75(L) 4.00 - 5.21 x10(6)/[facility] Hemoglobin 8.7(L) 11.7 - 15.5 gm/dL [facility] Hematocrit 25.6(L) 35.7 - 45.8 % [facility] MCV 93.1 82.6 - 94.4 fL [facility] MCH 31.6 27.1 - 32.0 pg [facility] MCHC 34.0 31.7 - 35.0 gm/dL [facility] Platelets 253 145 - 357 x10(3)/[facility] RDWSD 39.4 37.0 - 46.0 [facility] RDWCV 11.7 11.5 - 14.1 % [facility] MPV 8.7 7.6 - 12.9 [facility] nRBC % Auto 0.0 % [facility] nRBC Abs Auto 0.000 0.000 - 0.000 x10(3)/[facility] Blood specimen (specimen) 12/21/2017 7:04 AM EDT 12/21/2017 7:25 AM EDT Narrative Resulting Agency Comment Spec In Lab Reinaldo Romero MD HEMATOLOGY ORDERABLE S Performing Organization Address City/State/[facility] Co de Phone Number [facility] [place] [phone] * XR Pelvis Judet or In Out [...] the SI joints are unchanged. Procedure Note Edgar Carrasquillo MD - 12/20/2017 EXAMINATION: XR PELVIS JUDET [...] - OR Use (12/20/2017 9:40 AM EDT) Narrative RAD - 12/20/2017 9:41 AM EDT This order does not need a radiologist interpretation. ?? Tete Talamantes MD IMG FLUORO ORDERABLE S Performing Organization Address City/[facility]/ZIP Co de Phone Number [place], [place] * ABORH Recheck Status (12/20/2017 8:08 AM EDT) Pathologist [facility] ABORH Type Recheck Completed [facility] Blood specimen (specimen) 12/20/2017 8:08 AM EDT 12/20/2017 8:39 AM EDT Narrative Resulting Agency Comment Spec In Lab Joyce Parra MD BLOOD BANK LAB ORDER NITZA Performing Organization Address City/[facility]/ZIP Co de Phone Number [facility] [place] [address] * Antibody screen (12/20/2017 8:08 AM EDT) [facility] [address] Ab Screen Interp Negative [facility] Expires at [id number] on: 12/23/2017 [facility] Blood specimen (specimen) 12/20/2017 8:08 AM EDT 12/20/2017 8:39 AM EDT Narrative Resulting Agency Comment Spec In Lab Joyce Parra MD BLOOD BANK LAB ORDER NITZA [facility] [place] [address] * ABO/Rh Typing (12/20/2017 8:08 AM EDT) Pathologist [facility] ABORH Type A Neg [facility] Blood specimen (specimen) 12/20/2017 8:08 AM EDT 12/20/2017 8:39 AM EDT Narrative Resulting Agency Comment Spec In Lab Joyce Parra MD BLOOD BANK LAB ORDER NITZA Performing Organization Address City/[facility] Co de Phone Number [facility] [place] [address] * Differential, Automated (12/17/2017 6:55 AM EDT) [facility] [address] Neutrophils % 60.2 % [facility] Neutr Abs (ANC) 4.23 1.70 - 6.10 x10(3)/[facility] Lymphocytes % 30.2 % [facility] Lymphocytes Abs 2.1 0.9 - 3.2 x10(3)/[facility] Monocytes % 8.0 % [facility] Monocyte Abs 0.6 0.3 - 0.9 x10(3)/[facility] Eosinophils % 1.1 % [facility] Eosinophils Abs 0.1 0.0 - 0.4 x10(3)/[facility] Basophils % 0.4 % [facility] Basophils Abs 0.0 0.0 - 0.1 x10(3)/[facility] Immature Gran % 0.10 % [facility] Comment: Immature granulocytes(IG's)percentage and absolute count will include metamyelocytes, myelocytes, and promyelocytes. Blood smears from CBCs yielding IG's will be scanned manually for concordance. If this scan disagrees with the automated IG or if promyelocytes are noted, a manual differential will be performed. Tammi Gran Abs 0.01 0.00 - 0.04 x10(3)/[facility] Blood specimen (specimen) 12/17/2017 6:55 AM EDT 12/17/2017 7:04 AM EDT Narrative Resulting Agency Comment Spec In Lab Rajinder Gracia MD HEMATOLOGY OR DERABLES [facility] [place] [address] * (ABNORMAL) Hemogram (12/17/2017 6:55 AM EDT) WBC 7.0 4.0 - 9.5 x10(3)/[facility] RBC 3.36(L) 4.00 - 5.21 x10(6)/[facility] Hemoglobin 10.9(L) 11.7 - 15.5 gm/dL [facility] Hematocrit 31.1(L) 35.7 - 45.8 % [facility] MCV 92.6 82.6 - 94.4 fL [facility] MCH 32.4(H) 27.1 - 32.0 pg [facility] MCHC 35.0 31.7 - 35.0 gm/dL [facility] Platelets 195 145 - 357 x10(3)/[facility] RDWSD 38.9 37.0 - 46.0 [facility] RDWCV 11.5 11.5 - 14.1 % [facility] MPV 9.0 7.6 - 12.9 [facility] nRBC % Auto 0.0 % [facility] nRBC Abs Auto 0.000 0.000 - 0.000 x10(3)/[facility] Blood specimen (specimen) 12/17/2017 6:55 AM EDT 12/17/2017 7:04 AM EDT Narrative Resulting Agency Comment Spec In Lab Rajinder Gracia MD HEMATOLOGY OR DERABLES [facility] [place] [address] * (ABNORMAL) Basic Metabolic Panel (non-fasting) (12/17/2017 6:55 AM EDT) Glucose Lvl 91 65 - 199 mg/dL [facility] Comment:Diabetes: >=200 mg/d L plus symptoms BUN 11 8 - 18 mg/dL [facility] Creatinine 0.63(L) 0.70 - 1.20 mg/dL [facility] Sodium 142 135 - 145 mmol/L [facility] Potassium 3.9 3.5 - 5.0 mmol/L [facility] Comment: Please note: ??Patients with WBC >100,000 may have falsely elevated Potassium levels. ??For accurate Potassium quantification in these patients send serum separator tube (gold top) for subsequent determinations. ??Contact the Clinical Chemistry Laboratory if there are any questions. Chloride 102 98 - 107 mmol/L [facility] CO2 26 22 - 31 mmol/L [facility] Anion Gap 14 5 - 15 mmol/L [facility] Calcium 9.0 8.5 - 10.5 mg/dL [facility] Estimated GFR 103 >=60 mL/min/1. 73 m?? [facility] Comment: The eGFR was calculated using the CKD-EPI equation. As with all creatinine based estimates of kidney function, eGFR values calculated with the CKD-EPI equation are not accurate in patients with acute kidney failure, extremes of body mass or the acutely ill. [email or web address] eGFR 120 >=60 mL/min/1. 73 m?? [facility] Comment: The eGFR was calculated using the CKD-EPI equation. As with all creatinine based estimates of kidney function, eGFR values calculated with the CKD-EPI equation are not accurate in patients with acute kidney failure, extremes of body mass or the acutely ill. [email or web address] Blood specimen (specimen) 12/17/2017 6:55 AM EDT 12/17/2017 7:04 AM EDT Narrative Resulting Agency Comment Spec In Lab Russell Lewis MD CHEMISTRY ORDERABLE S [facility] [place] [address] * (ABNORMAL) Differential, Automated (12/15/2017 8:22 AM EDT) Neutrophils % 67.1 % [facility] Neutr Abs (ANC) 5.44 1.70 - 6.10 x10(3)/mc L [facility] Lymphocytes % 20.4 % [facility] Lymphocytes Abs 1.7 0.9 - 3.2 x10(3)/[facility] LABOR[facility] Monocytes % 12.2 % [facility] Monocyte Abs 1.0(H) 0.3 - 0.9 x10(3)/mc L [facility] Eosinophils % 0.0 % [facility] Eosinophils Abs 0.0 0.0 - 0.4 x10(3)/ L [facility] Basophils % 0.1 % [facility] Basophils Abs 0.0 0.0 - 0.1 x10(3)/mc L [facility] Immature Gran % 0.20 % [facility] Comment: Immature granulocytes(IG's)percentage and absolute count will include metamyelocytes, myelocytes, and promyelocytes. Blood smears from CBCs yielding IG's will be scanned manually for concordance. If this scan disagrees with the automated IG or if promyelocytes are noted, a manual differential will be performed. Tammi Gran Abs 0.02 0.00 - 0.04 x10(3)/mc L [facility] Blood specimen (specimen) 12/15/2017 8:22 AM EDT 12/15/2017 8:32 AM EDT Narrative Resulting Agency Comment Spec In Lab Elver Huddleston MD HEMATOLOGY ORDERABLE S [facility] [place] [address] * (ABNORMAL) Hemogram (12/15/2017 8:22 AM EDT) WBC 8.1 4.0 - 9.5 x10(3)/[facility] RBC 3.21(L) 4.00 - 5.21 x10(6)/[facility] Hemoglobin 10.5(L) 11.7 - 15.5 gm/dL [facility] Hematocrit 29.6(L) 35.7 - 45.8 % [facility] MCV 92.2 82.6 - 94.4 fL [facility] MCH 32.7(H) 27.1 - 32.0 pg [facility] MCHC 35.5(H) 31.7 - 35.0 gm/dL [facility] Platelets 145 145 - 357 x10(3)/[facility] LABOR[facility] RDWSD 39.6 37.0 - 46.0 [facility] LAB[facility]ATORY RDWCV 11.6 11.5 - 14.1 % [facility] MPV 8.7 7.6 - 12.9 [facility] LABOR[facility]ORY nRBC % Auto 0.0 % [facility] nRBC Abs Auto 0.000 0.000 - 0.000 x10(3)/[facility] Blood specimen (specimen) 12/15/2017 8:22 AM EDT 12/15/2017 8:32 AM EDT Narrative Resulting Agency Comment Spec In Lab Elver Huddleston MD HEMATOLOGY ORDERABLE S [facility] [place] [address] * Magnesium (12/15/2017 8:22 AM EDT) Pathologist [facility] Magnesium 0.85 0.69 - 1.07 mmol/L [facility] Blood specimen (specimen) 12/15/2017 8:22 AM EDT 12/15/2017 8:33 AM EDT Narrative Resulting Agency Comment Spec In Lab Priya Stephen Sherman ORDONEZ CHEMISTRY ORDERABLES Performing Organization Address [facility]/ZIP Co de Phone Number [facility] [place] [address] * (ABNORMAL) Basic Metabolic Panel (non-fasting) (12/15/2017 8:22 AM EDT) [facility] [address] Glucose Lvl 102 65 - 199 mg/dL [facility] Comment:Diabetes: >=200 mg/d L plus symptoms BUN 9 8 - 18 mg/dL [facility] Creatinine 0.83 0.70 - 1.20 mg/dL [facility] Sodium 143 135 - 145 mmol/L [facility] Potassium 3.8 3.5 - 5.0 mmol/L [facility] Comment: Please note: ??Patients with WBC >100,000 may have falsely elevated Potassium levels. ??For accurate Potassium quantification in these patients send serum separator tube (gold top) for subsequent determinations. ??Contact the Clinical Chemistry Laboratory if there are any questions. Chloride 103 98 - 107 mmol/L [facility] CO2 25 22 - 31 mmol/L [facility] Anion Gap 15 5 - 15 mmol/L [facility] Calcium 8.4(L) 8.5 - 10.5 mg/dL [facility] Estimated GFR 81 >=60 mL/min/1. 73 m?? [facility] Comment: The eGFR was calculated using the CKD-EPI equation. As with all creatinine based estimates of kidney function, eGFR values calculated with the CKD-EPI equation are not accurate in patients with acute kidney failure, extremes of body mass or the acutely ill. [email or web address] eGFR 94 >=60 mL/min/1. 73 m?? [facility] Comment: The eGFR was calculated using the CKD-EPI equation. As with all creatinine based estimates of kidney function, eGFR values calculated with the CKD-EPI equation are not accurate in patients with acute kidney failure, extremes of body mass or the acutely ill. [email or web address] Blood specimen (specimen) 12/15/2017 8:22 AM EDT 12/15/2017 8:32 AM EDT Narrative Resulting Agency Comment Spec In Lab Russell Lewis MD CHEMISTRY ORDERABLE S [facility] [place] [address] * XR Pelvis Judet or In Out [...] is now near anatomic. Russell Lewis MD IMG DX ORDERABLES * XR Fluoro No Rad <1Hr - OR Use (12/14/2017 1:13 PM EDT) Narrative RAD - 12/14/2017 1:13 PM EDT This order does not need a radiologist interpretation. ?? Reinaldo Romero MD [facility] FLUORO ORDERABLE S Performing Organization Address [facility] de Phone Number [place], [place] * XR Fluoro No Rad <1Hr - OR Use (12/14/2017 12:20 PM EDT) Narrative [facility] - 12/14/2017 1:12 PM EDT This order does not need a radiologist interpretation. ?? Reinaldo Romero MD [facility] FLUORO ORDERABLE S Performing Organization Address [facility] de Phone Number [place], [place] * XR Fluoro No Rad <1Hr - OR Use (12/14/2017 11:39 AM EDT) Narrative [facility] - 12/14/2017 11:39 AM EDT This order does not need a radiologist interpretation. ?? Reinaldo Romero MD G FLUORO ORDERABLE S Performing Organization Address [facility] de Phone Number [place], [place] * CT Knee wo Contrast Right [...] not need a radiologist interpretation. ?? Russell Lewis MD [facility] FLUORO ORDERABL ES [place], [place] * XR Forearm Right (Generic) (12/14/2017 [...] and regional physical examination. Russell Lewis MD [facility] DX ORDERABLES * XR Tibia Fibula Right [...] No other fracture identified. Russell Lewis MD [facility] DX ORDERABLES * XR Shoulder Right (Generic) [...] fracture or dislocation identified. Russell Lewis MD [facility] DX ORDERABLES * XR Wrist 2 views [...] 12:30 AM EDT) ABORH Type Recheck Completed [facility] Blood specimen (specimen) 12/14/2017 12:30 AM EDT 12/14/2017 12:30 AM EDT Narrative Resulting Agency Comment Spec In Lab Russell Lewis MD BLOOD BANK LAB RAYMOND TINSLEY [facility] [place] [address] * Antibody screen (12/14/2017 12:30 AM EDT) Ab Screen Interp Negative [facility] Expires at [id number] on: 12/17/2017 [facility] Blood specimen (specimen) 12/14/2017 12:30 AM EDT 12/14/2017 12:30 AM EDT Narrative Resulting Agency Comment Spec In Lab Russell Lewis MD BLOOD BANK LAB ORDUbaldo TINSLEY Performing Organization Address City/[facility]/ZIP Co de Phone Number [facility] [place] [address] * ABO/Rh Typing (12/14/2017 12:30 AM EDT) ABORH Type A Neg [facility] Blood specimen (specimen) 12/14/2017 12:30 AM EDT 12/14/2017 12:30 AM EDT Narrative Resulting Agency Comment Spec In Lab Russell Lewis MD BLOOD BANK LAB RAYMOND TINSLEY Performing Organization Address [facility] Co de Phone Number [facility] [place] [address] * L-Lactate2 Whole Blood (12/14/2017 12:15 AM EDT) [facility] [address] Lactate WB 1.7 0.5 - 2.2 mmol/L [facility] Blood specimen (specimen) 12/14/2017 12:15 AM EDT 12/14/2017 12:15 AM EDT Russell Lewis MD CHEMISTRY ORDERABLE S Performing Organization Address [facility] Co de Phone Number [facility] [place] [address] * SCAN DOC: IMPLANTABLE DEVICES (12/14/2017 12:00 AM EDT) Narrative 12/14/2017 12:00 AM EDT Ordered by an unspecified provider. Scanning Provider MEDIA MGR SCAN EXT O RDR/RSLT * Gold Tube HOLD (12/14/2017 12:00 AM EDT) Pathologist [facility] Gold Hold Sample in lab. [facility] Blood specimen (specimen) Venous Draw / Unknown 12/14/2017 12/14/2017 12:14 AM EDT Chinedu Ortega MD CHEMISTRY ORDERABLES Performing Organization Address City/[facility]/[place] [address] * (ABNORMAL) Differential, Automated (12/14/2017 12:00 AM EDT) Neutrophils % 83.9 % [facility] Neutr Abs (ANC) 9.56(H) 1.70 - 6.10 x10(3)/[facility] Lymphocytes % 9.8 % [facility] Lymphocytes Abs 1.1 0.9 - 3.2 x10(3)/[facility] Monocytes % 5.8 % [facility] Monocyte Abs 0.7 0.3 - 0.9 x10(3)/[facility] Eosinophils % 0.0 % [facility] Eosinophils Abs 0.0 0.0 - 0.4 x10(3)/[facility] Basophils % 0.2 % [facility] Basophils Abs 0.0 0.0 - 0.1 x10(3)/[facility]OR[facility] Immature Gran % 0.30 % [facility] Comment: Immature granulocytes(IG's)percentage and absolute count will include metamyelocytes, myelocytes, and promyelocytes. Blood smears from CBCs yielding IG's will be scanned manually for concordance. If this scan disagrees with the automated IG or if promyelocytes are noted, a manual differential will be performed. Tammi Gran Abs 0.03 0.00 - 0.04 x10(3)/[facility] Blood specimen (specimen) 12/14/2017 12/14/2017 12:07 AM EDT Narrative Resulting Agency Comment Spec In Lab Russell Lewis MD HEMATOLOGY ORDERABL ES Performing Organization Address City/[facility]/ZIP Co de Phone Number [facility] [place] [address] * (ABNORMAL) Hemogram (12/14/2017 12:00 AM EDT) WBC 11.4(H) 4.0 - 9.5 x10(3)/[facility] LABORATORY RBC 3.78(L) 4.00 - 5.21 x10(6)/[facility] LABORATORY Hemoglobin 12.2 11.7 - 15.5 gm/dL [facility] Hematocrit 35.0(L) 35.7 - 45.8 % [facility] MCV 92.6 82.6 - 94.4 fL [facility] MCH 32.3(H) 27.1 - 32.0 pg [facility] MCHC 34.9 31.7 - 35.0 gm/dL [facility] Platelets 195 145 - 357 x10(3)/[facility] LABORATORY RDWSD 40.1 37.0 - 46.0 [facility] LABORATORY RDWCV 11.9 11.5 - 14.1 % [facility] MPV 8.5 7.6 - 12.9 fL [facility] nRBC % Auto 0.0 % [facility] nRBC Abs Auto 0.000 0.000 - 0.000 x10(3)/[facility] LABORATORY Blood specimen (specimen) 12/14/2017 12/14/2017 12:07 AM EDT Narrative Resulting Agency Comment Spec In Lab Russell Lewis MD HEMATOLOGY ORDERABL ES [facility] [place] [address] * Ethanol Level (12/14/2017 12:00 AM EDT) Ethanol Lvl <100 <=99 mg/L [facility] Comment: Greater than 800 mg/L (0.08%) should be considered intoxicated. 3400 to 4500 mg/L (0.34 - 0.45%) is considered severe intoxication. Greater than 5500 mg/L (0.55%) is usually fatal. Blood specimen (specimen) 12/14/2017 12/14/2017 12:07 AM EDT Narrative Resulting Agency Comment Spec In Lab Russell Lewis MD CHEMISTRY ORDERABLE S Performing Organization Address [facility]/ZIP Co de Phone Number [facility] [place] [address] * (ABNORMAL) APTT (12/14/2017 12:00 AM EDT) PTT 24(L) 25 - 37 sec [facility] Comment: The PTT is NOT appropriate for heparin monitoring. Use the Anti-Xa level for heparin monitoring (HEP UFH) or LMWH monitoring (HEP LMW). A PTT less than 37 seconds generally indicates adequate hemostasis. Blood specimen (specimen) 12/14/2017 12/14/2017 12:07 AM EDT Narrative Resulting Agency Comment Spec In Lab Russell Lewis MD HEMATOLOGY ORDERABL ES Performing Organization Address [facility]/ZIP Co de Phone Number [facility] [place] [address] * Prothrombin Time (12/14/2017 12:00 AM EDT) PT 11.2 9.4 - 12.5 sec [facility] INR 1.0 [facility] Comment: An INR <2.0 indicates adequate [...] Lab Russell Lewis MD HEMATOLOGY ORDERABL ES [facility] [place] [address] * (ABNORMAL) Basic Metabolic Panel (non-fasting) (12/14/2017 12:00 AM EDT) Glucose Lvl 124 65 - 199 mg/dL [facility] Comment:Diabetes: >=200 mg/d L plus symptoms BUN 13 8 - 18 mg/dL [facility] Creatinine 0.92 0.70 - 1.20 mg/dL [facility] Sodium 140 135 - 145 mmol/L [facility] Potassium 4.6 3.5 - 5.0 mmol/L [facility] Comment: Please note: ??Patients with WBC >100,000 may have falsely elevated Potassium levels. ??For accurate Potassium quantification in these patients send serum separator tube (gold top) for subsequent determinations. ??Contact the Clinical Chemistry Laboratory if there are any questions. Chloride 103 98 - 107 mmol/L [facility] CO2 26 22 - 31 mmol/L [facility] Anion Gap 11 5 - 15 mmol/L [facility] Calcium 8.4(L) 8.5 - 10.5 mg/dL [facility] Estimated GFR 72 >=60 mL/min/1. 73 m?? [facility] Comment: The eGFR was calculated using the CKD-EPI equation. As with all creatinine based estimates of kidney function, eGFR values calculated with the CKD-EPI equation are not accurate in patients with acute kidney failure, extremes of body mass or the acutely ill. http://RoughHands/DHnkdep http://RoughH[employer]/DHMCnkf eGFR 83 >=60 mL/min/1. 73 m?? [facility] Comment: The eGFR was calculated using the CKD-EPI equation. As with all creatinine based estimates of kidney function, eGFR values calculated with the CKD-EPI equation are not accurate in patients with acute kidney failure, extremes of body mass or the acutely ill. http://[employer]oughH[employer]/DHnkdep http://[employer]/DHMCnkf Blood specimen (specimen) 12/14/2017 12/14/2017 12:07 AM EDT Narrative Resulting Agency Comment Spec In Lab Russell Lewis MD CHEMISTRY ORDERABLE S Performing Organization Address [facility] de Phone Number [facility] [place] [address] * SCAN DOC: MANAGER SQL (12/14/2017 12:00 AM EDT) Anatomical Region Laterality Modality Other Narrative 12/14/2017 12:00 AM EDT Ordered by an unspecified provider. Scanning Provider MEDIA MGR SCAN EXT O RDR/RSLT * Urinalysis Microscopic Exam (12/13/2017 11:55 PM EDT) RBC UA 3 0 - 4 /HPF [facility] WBC UA 2 0 - 5 /HPF [facility] Urine specimen (specimen) 12/13/2017 11:55 PM EDT 12/14/2017 12:07 AM EDT Narrative Resulting Agency Comment Spec In Lab Russell Lewis MD URINE ORDERABLES Performing Organization Address [facility] Co de Phone Number [facility] [place] [address] * (ABNORMAL) Urinalysis with reflex Culture (12/13/2017 11:55 PM EDT) Glucose UA Negative Negative mg/dL [facility] Protein UA Negative Negative mg/dL [facility] Bilirubin UA Negative Negative mg/dL [facility] Comment: Clinical correlation required for positive Urine Bilirubin results as false positive may occur with some drugs and drug related products. If a false positive is suspected a serum total bilirubin should be considered if clinically indicated. Urobilinogen UA Normal Normal mg/dL [facility] pH UA 6.0 5.0 - 8.0 [facility] Blood UA Small(A) Negative mg/dL [facility] Ketones UA Negative Negative mg/dL [facility] Nitrite UA Negative Negative [facility] Leukocytes UA Negative Negative mcL [facility] Appearance UA Clear Clear [facility] Spec [place] UA >1.035(H) 1.002 - 1.030 [facility] Color UA Straw Yellow [facility] Culture Reflexed No [facility] Urine specimen (specimen) 12/13/2017 11:55 PM EDT 12/14/2017 12:07 AM EDT Narrative Resulting Agency Comment Spec In Lab Russell Lewis MD URINE ORDERABLES [facility] [place] [address] * Rapid Drug Screen w/ Confirmation, Urine (12/13/2017 11:54 PM EDT) U Barbiturates Screen None Detected None Detected [facility] Comment: The barbiturate screen detects barbiturates [...] U Benzodiazepines Screen None Detected None Detected [facility] Comment: The benzodiazepines screen detects benzodiazepines [...] U Cocaine Screen None Detected None Detected [facility] Comment: The cocaine metabolites screen detects benzoylecgonine (Cocaine Metabolite) at concentrations >150 ng/mL. A ? Presumptive Positive? result indicates that the screening result was positive but has not yet been confirmed by a highly-specific method. As with any screen, occasional false positive results from cross-reacting substances may occur. Not for Medico-Legal Purposes. U Methadone Metabolites Screen None Detected None Detected [facility] Comment: The methadone metabolite screen detects EDDP (major methadone metabolite) at concentrations >100 ng/mL. A ? Presumptive Positive? result indicates that the screening result was positive but has not yet been confirmed by a highly-specific method. As with any screen, occasional false positive results from cross-reacting substances may occur. Not for Medico-Legal Purposes. U Opiate Screen None Detected None Detected [facility] Comment: The opiates screen detects opiates [...] U Cannabinoid Screen None Detected None Detected [facility] Comment: The marijuana metabolites screen detects the THC metabolite (06-vge-8-carboxy-delta 9-THC) at concentrations >20 ng/mL. A ? Presumptive Positive? result indicates that the screening result was positive but has not yet been confirmed by a highly-specific method. As with any screen, occasional false positive results from cross-reacting substances may occur. Not for Medico-Legal Purposes. U Oxycodone Screen None Detected None Detected [facility] Comment: The oxycodone screen detects oxycodone and oxymorphone at concentrations >100 ng/mL. A ? Presumptive Positive? result indicates that the screening result was positive but has not yet been confirmed by a highly-specific method. As with any screen, occasional false positive results from cross-reacting substances may occur. Not for Medico-Legal Purposes. U Buprenorphine Screen None Detected None Detected [facility] Comment: The buprenorphine screen detects buprenorphine at concentrations >5 ng/mL. A ? Presumptive Positive? result indicates that the screening result was positive but has not yet been confirmed by a highly-specific method. As with any screen, occasional false positive results from cross-reacting substances may occur. Not for Medico-Legal Purposes. U Fentanyl Screen None Detected None Detected [facility] Comment: The fentanyl screen detects fentanyl at concentrations >2 ng/mL. A ? Presumptive Positive? result indicates that the screening result was positive but has not yet been confirmed by a highly-specific method. As with any screen, occasional false positive results from cross-reacting substances may occur. Not for Medico-Legal Purposes. U Tricyclics Screen None Detected None Detected [facility] Comment: The tricyclics screen detects tricyclic [...] U Ethanol Screen None Detected None Detected [facility] Comment:This urine ethanol a ssay detects ethanol at concentrations >/= 100 mg/L. U Amphetamines Screen None Detected None Detected [facility] Comment: The amphetamine screen detects d-amphetamine and d-methamphetamine at concentrations >300 ng/mL. A ? Presumptive Positive? result indicates that the screening result was positive but has not yet been confirmed by a highly-specific method. As with any screen, occasional false positive results from cross-reacting substances may occur. Not for Medico-Legal Purposes. U Adulterants Screen None Detected None Detected [facility] Comment: No adulteration or dilution of this urine sample was detected. All urine samples submitted for urine drugs of abuse analysis are tested for creatinine concentration, pH, and for the presence of oxidants, nitrites, and chromate. Urine specimen (specimen) 12/13/2017 11:54 PM EDT 12/14/2017 12:07 AM EDT Narrative Resulting Agency Comment Spec In Lab Russell Lewis MD CHEMISTRY ORDERABLE S [facility] [place] [address] * Rapid Drug Screen, Urine (PRETTY Request) (12/13/2017 11:54 PM EDT) PRETTY Conf Requested Yes [facility] PRETTY Requested See Comment [facility] Comment:Refer to Rapid Drug Screen w/ Confirmation, Urine for results. Urine specimen (specimen) 12/13/2017 11:54 PM EDT 12/14/2017 12:07 AM EDT Narrative Resulting Agency Comment Spec In Lab Russell Lewis MD URINE ORDERABLES [facility] [place] [address] * Request For 2nd Read CT Head [...] or may not represent nondisplaced fracture. Russell Lewis MD IMG OUTSIDE INTERPR ETATION [...] CT Spine (12/13/2017 12:20 AM EDT) Narrative [facility] - 12/13/2017 10:12 PM EDT This exam is for storage only and is auto-finalizing. Russell RAYA FILM LIBRARY OR DERABLES Performing Organization Address [facility] de Phone Number [place], [place] * Film Library- Storage Only CT Chest Abdomen Pelvis (12/13/2017 12:15 AM EDT) Narrative [facility] - 12/13/2017 10:11 PM EDT This exam is for storage only and is auto-finalizing. Russell SNEED FILM LIBRARY OR DERABLES Performing Organization Address [facility] de Phone Number [place], [place] * Film Library- Storage Only DX Knee (12/13/2017 12:10 AM EDT) Narrative [facility] - 12/13/2017 10:05 PM EDT This exam is for storage only and is auto-finalizing. Russell RAYA FILM LIBRARY OR DERABLES Performing Organization Address [facility] de Phone Number [place], [place] * Film Library- Storage Only DX Wrist (12/13/2017 12:05 AM EDT) Narrative [facility] 12/13/2017 10:04 PM EDT This exam is for storage only and is auto-finalizing. Russell Lewis MD IMG FILM LIBRARY OR DERABLES Performing Organization Address City/[facility] Co de Phone Number [place], [place] * Film Library- Storage Only CT Head And Spine (12/13/2017 12:00 AM EDT) Narrative [facility] - 12/13/2017 10:03 PM EDT This exam is for storage only and is auto-finalizing. Russell Lewis MD [facility] FILM LIBRARY OR DERABLES Performing Organization Address [facility] Co de Phone Number [place], [place] documented in this encounter Visit Diagnoses Not on filedocumented in this encounter Admitting Diagnoses Diagnosis Trauma [...] Given 12/23/2017 8:21 AM EDT 30 mg lactulose (CHRONULAC) 20 gram/30 mL oral solution 20-40 g 20-40 g (30-60 mL), Oral, DAILY PRN, Starting on Wed12/18/17 at 202, Until Wed12/24/17 at 1617, Constipation, Administer if [...] Oral, DAILY PRN, Starting on 12/18/17 at 202, Until Wed12/24/17 at 1617, Constipation, Administer if [...] Per G Tube, DAILY PRN, Starting on 12/18/17 at 2028, [...] repeat times 1 in 4 hours., Routine oxyCODONE (ROXICODONE) immediate release tablet 10 mg 10 mg, Oral, EVERY 3 HOURS PRN, Starting on Wed12/21/17 at 0620, Until Wed12/24/17 at 1617, Pain, moderate pain (4-6), May give additional 5 mg in 30 minutes once if pain not relieved., Routine oxyCODONE (ROXICODONE) immediate release tablet 15 mg [...] Given 12/23/2017 8:23 AM EDT 5 mLs vancomycin (VANCOCIN) injection ONCE PRN, Starting on Wed12/20/17 at 0919, Until Wed12/22/17 at 0624, Intra-Operative (Intra-Procedure), Routine Given 12/20/2017 9:19 AM EDT 2 g 19- Surgical Site documented in this encounter Active and Recently Administered Medications Times are shown in EDT. Scheduled Medication Order 12/22/2017 12/23/2017 12/24/2017 acetaminophen (TYLENOL) tablet 1,000 mg 1,000 mg, Oral, EVERY 6 HOURS, First dose (after last modification) on Wed12/14/17 at 0745, Until Discontinued, Should be used concomitantly if other analgesics are ordered. Do not exceed 4,000 mg in 24 hours, Routine 022 (Given - Provider: Cary Urrutia RN)0843 (Given - Provider: Christin Edwards RN)1557 (Given - Provider: Christin Edwards RN)2120 (Given - Provider: Baltazar Young HAYLEY) 040 (Given - Provider: Cary Urrutia, HAYLEY)0821 (Not Given - Provider: Christin Edwards RN - Reason: Patient/family refused - Comment: pt educated)1607 (Given - Provider: Faina Ortega RN)2044 (Given - Provider: La Castrejon, RN) 040 (Given - Provider: La Castrejon, RN)101 (Given - Provider: Pita Her, RN) enoxaparin (LOVENOX) injection 30 mg 30 mg, Subcutaneous, EVERY 12 HOURS SCHEDULED (2 times per day), First dose on Wed12/20/17 at 2100, Until Discontinued, Routine 0845 (Given - Provider: Christin Edwards RN)2119 (Given - Provider: Baltazar Young RN) 08 (Given - Provider: Christin Edwards RN)2046 (Given - Provider: La Castrejon, RN) 101 (Given - Provider: Pita Her, HAYLEY) senna-docusate (PERICOLACE) 8.6-50 mg per tablet 2 tablet 2 tablet, Oral, 2 TIMES DAILY, First dose on Wed12/14/17 at 0900, Until Discontinued, Routine 0844 (Given - Provider: Christin Edwards RN)2119 (Given - Provider: Baltazar Young RN) 08 (Given - Provider: Christin Edwards RN)2044 (Given - Provider: La Castrejon, HAYLEY) 1012 (Given - Provider: Pita Her, HAYLEY) sodium chloride 0.9 % flush 5 mL 5 mL, Intravenous, 2 TIMES DAILY, First dose on Wed12/14/17 at 0900, Until Discontinued, Recovery (Recovery-Hospital Unit), Routine 0845 (Given - Provider: Christin Edwards RN)2119 (Given - Provider: Baltazar Young RN) 08 (Given - Provider: Christin Edwards RN)2047 (Given - Provider: La Castrejon, HAYLEY) 1013 (Given - Provider: Pita Her, RN) PRN Medication Order 12/22/2017 12/23/2017 12/24/2017 bisacodyl (DULCOLAX) EC tablet 10 mg 10 mg, Oral, 2 TIMES DAILY PRN, Starting on 12/18/17 at 202, Until Wed12/24/17 at 1617, Constipation, DO NOT [...] Routine 1235 (Given - Provider: Pita Her, HAYLEY) bisacodyl (DULCOLAX) suppository 10 mg 10 mg, Rectal, DAILY PRN, Starting on Tu12/14/17 at 0720, Until Wed12/24/17 at 1617, Constipation, Routine cyclobenzaprine (FLEXERIL) tablet 10 mg 10 mg, Oral, 3 TIMES DAILY PRN, Starting on Wed12/18/17 at 2239, Until Wed12/24/17 at 1617, Muscle spasms, Routine 0229 (Given - Provider: Cary Urrutia, HAYLEY)1335 (Given - Provider: Christin Edwards, HAYLEY)2120 (Given - Provider: Baltazar Young RN) 1610 (Given - Provider: Faina Ortega, HAYLEY) 0423 (Given - Provider: La Castrejon, HAYLEY) lactulose (CHRONULAC) 20 gram/30 mL oral solution 20-40 g 20-40 g (30-60 mL), Oral, DAILY PRN, Starting on 12/18/17 at 202, Until Wed12/24/17 at 1617, Constipation, Administer if [...] PRN, 1 dose, Starting on Wed12/14/17 at 415, Until Wed12/24/17 at 1617, for discomfort with PIV insertion, Recovery (Recovery-Hospital Unit), Routine magnesium citrate oral solution 300 mL(Linked Group 1) 300 mL, Oral, DAILY PRN, Starting on Wed12/18/17 at [...] 1 MIN PRN, Starting on Wed12/14/17 at 041, Until Wed12/24/17 at 1617, Opioid Reversal, If [...] minutes once if pain not relieved., Routine 050 (See Alternative - Provider: Cary Urrutia RN)0843 (See Alternative - Provider: Christin Edwards RN)133 (See Alternative - Provider: Christin Edwards RN)1951 (See Alternative - Provider: Cary Urrutia RN)234 (See Alternative - Provider: Cary Urrutia RN) 040 (See Alternative - Provider: Cary Urrutia RN)0820 (See Alternative - Provider: Christin Edwards RN)2045 (See Alternative - Provider: La Castrejon, HAYLEY) 042 (See Alternative - Provider: La Castrejon, HAYLEY)1236 (See Alternative - Provider: Pita Her, RN) [...] Edwards RN)1951 (Given - Provider: Cary Urrutia RN)2341 (Given - Provider: Cary Urrutia RN) 040 (Given - Provider: Cary Urrutia RN)0820 (Given - Provider: Christin Edwards RN)2045 (Given - Provider: La Castrejon RN) 0423 (Given - Provider: La Castrejon, HAYLEY)1236 (Given - Provider: Pita Her, RN) oxyCODONE (ROXICODONE) immediate release tablet 5 mg(Linked Group 2) 5 mg, Oral, EVERY 3 HOURS PRN, Starting on Wed12/21/17 at 0620, Until Wed12/24/17 at 1617, Pain, mild pain (1-3), May give additional 5 mg in 30 minutes once if pain not relieved., Routine 0509 (See Alternative - Provider: Cary Urrutia, HAYLEY)[phone] (See Alternative - Provider: Christin Edwards, RN)[phone] (See Alternative - Provider: Christin Edwards, RN)[phone] (See Alternative - Provider: Cary Urrutia, RN)[phone] (See Alternative - Provider: Cary Urrutia, RN) [phone] (See Alternative - Provider: Cary Urrutia, RN)[phone] (See Alternative - Provider: Christin Edwards, RN)[phone] (See Alternative - Provider: La Castrejon, HAYLEY) 0423 (See Alternative - Provider: La Castrejon, HAYLEY)[phone] (See Alternative - Provider: Pita Her RN) polyethylene glycol (MIRALAX) packet 17 g [...] Wed12/14/17 at 0416, Until Wed12/24/17 at 1617, flush, Flush pertains to all indwelling lines. Flush per protocol found in the job aid using the link provided on this medication record., Recovery (Recovery-Hospital Unit), Routine Linked Groups Order Group 1: magnesium citrate oral solution 300 mLJump to med 300 mL, Oral, DAILY PRN, Starting on 12/18/17 at 202, Until Wed12/24/17 at 1617, Constipation, Administer if [...] Routine documented in this encounter Care Teams Internet Cafe Manager Relationship Specialty Start Date End Date Keiko Reddy MD [address] [address] PCP - General Family Medicine 06/18/17 05/15/18 documented as of this encounter
--- OUTSIDE RECORDS SUMMARY | 2023-12-15 01:17 | XMS_ITS | Encounter Summary ---
Author Organization [facility] Address [facility] [place] [address] Care Team Providers Care Investment Recovery Technician Name Role Phone Keiko Reddy MD Primary Care Provider [phone] Reason for Visit * Auth/Cert Specialty Diagnoses / Procedures Referred By Marie t Referred To Contact Diagnoses Trauma right tibial plateau fracture Procedures @ORIF TIBIAL PLATEAU (PROXIMAL) UNICONDYLAR (WRVU 13.41) MODIFIER TIBIA ANA SYSTEM SYNTHES MODIFIER PROXIMAL LOCKING TIBIA PLATES SYNTHES MODIFIER LOCKING MEDIAL PROXIMAL TIBIA PLATES SYNTHES Referral ID Status Reason Start Date Expiration Date Visits Re quested Visits Authorized [id number] 1 1 Encounter Details Date Type Department Care Team (Late st Contact Info) Description 12/14/2017 9:36 AM EDT Anesthesia [place] [address] Wyatt Sherman MD [facility] [place] [address] Anesthesia Record Procedure Summary Procedure Name Responsible Anesthesiologist Anesthesia Start Time Anesthesia Stop Time @ORIF TIBIAL PLATEAU (PROXIMAL) UNICONDYLAR (WRVU 13.41) (Right: Leg Lower) Wyatt Sherman MD 12/14/17 0936 12/14/17 1354 Events Date Time Event Comment 12/14/2017 0928 0936 AN Verify 0936 Start 0939 An Start Data 0947 An Induction 0948 An Intubation 0949 Anesthesia Ready 1016 Procedure Start Time out com plete 1025 An Tourn Inflated 250 mmHg R leg 1156 An Tourn Deflated 1220 An Tourn Inflated 250 mmHg R arm 1319 An Tourn Deflated 1344 Extubation/LMA Out 1345 an stop data 1345 Quick Note TOF tetanus no fade - sherman 1354 Recovery or ICU Handoff Awa ent care was transferred to the destination unit staff after review of the patient's medical history, current anesthetic/surgical status and plan, according to the Provider Handoff Checklist. 1354 Stop Meds Name Total Midazolam 1 mg fentaNYL 200 mcg IV Lidocaine 20 mg Propofol 180 mg Rocuronium 30 mg Ondansetron 8 mg Dexamethasone 8 mg Propofol INF 446.56 mg ceFAZolin 4 g ketamine (KETALAR) injection 10 mg/mL 50 .49 mg lactated Ringers infusion 1,000 mL 600 m L * Agents Name O2 Air N2O Sevoflurane [...] cephalic vein (lateral side of arm), left; [id number] catheter system; 20 gauge; outside hospital; 12/24/17; 1331 12/14/17 0001 by Bee Cardozo RN 12/24/17 1331 by Her, Pita D, RN Urethral Catheter 12/14/17; 0001; indwelling double lumen catheter; 16; present on admission to this facility; 12/15/17; 1315 12/14/17 0001 by Bee Cardozo RN 12/15/17 1315 by Mirian Cherry RN ETT Mask Ventilation: Ea sy (1); ETT Type: Cuffed, Oral; ETT Size: 6.5 mm; Indirect: Video; Notes: Asleep, Pre-O2, Stylette; ETT Placement Verified By: Auscultation, Capnometry, Visual; Secured at Teeth: 21 cm; Inserted by: libby; Removal Date: 12/14/17; Removal Time: 13412/14/17 0953 by Yoshi Tinoco CRNA 12/14/17 1344 by Yoshi Tinoco CRNA documented in this encounter Social History Tobacco [...] OR Notes * Anesthesia Postprocedure Evaluation - Wyatt Sherman MD - 12/14/2017 3:25 PM EDT [facility] [place] Department of Anesthesiology Post-procedure Note Patient: Daphne Pickard Procedure Summary Date Anesthesia Start Anesthesia Stop Room / Location 12/14/17 0936 [facility] MAIN OR Procedure Diagnosis Surgeon Responsible Provider @ORIF TIBIAL PLATEAU (PROXIMAL) UNICONDYLAR (WRVU 13.41) (Right Leg Lower); ORIF DISTAL RADIUS, 3 OR MORE FRAGMENTS (WRVU 14.38) (Right Arm Lower); MODIFIER VARIABLE ANGLE DISTAL RADIUS SYNTHES (Right Wrist); MODIFIER, 3.5 VA PROXIMAL TIBIAL PLATES, SYNTHES (Right Leg); HIP INTRAOP RADIOLOGIC EXAMINATION, UNILATERAL, W PELVIS; 1 VIEW (WRVU 0.18) (Left ) (right tibial plateau fracture; right distal radius fx ; left hip fx ) Reinaldo Romero MD Higgins, Kenneth E, MD All Anesthesia Providers: Anesthesiologist: Wyatt Sherman MD TOWEL CABINET REPAIRER: Nicolette Munson CRNA; Yoshi Tinoco CRNA Most Recent Vitals: 12/14/17 1500 BP: 105/75 Pulse: 85 Resp: 14 Temp: SpO2: 95% Pain Patient Location: PACU/[facility] Level of Consciousness: Awake and Alert Pain Management: Pain Being Addressed PONV: None Cardiovascular Status: At Baseline Respiratory Status: At Baseline Postoperative Fluid Status: Intravascular EUvolemia Possible Anesthetic Complications: NONE apparent at time of evaluation Final Primary Anesthesia Type: General (The anesthetic type performed was the same as planned.) Comments: * Anesthesia Preprocedure Evaluation - Wyatt Sherman MD - 12/14/2017 8:03 AM EDT Images from the original note were not included. Pre-Anesthesia Evaluation for: Daphne Pickard a 52 y.o. female. Procedure(s): @ORIF TIBIAL PLATEAU (PROXIMAL) UNICONDYLAR (WRVU 13.41) MODIFIER TIBIA ANA SYSTEM SYNTHES MODIFIER PROXIMAL LOCKING TIBIA PLATES SYNTHES MODIFIER LOCKING MEDIAL PROXIMAL TIBIA PLATES SYNTHES ORIF DISTAL RADIUS, 3 OR MORE FRAGMENTS (WRVU 14.38) Patient Active Problem List Diagnosis ??? Trauma History reviewed. No pertinent past medical history. Past Surgical History: Procedure Laterality Date ??? PRO COLONOSCOPY, DIAGNOSTIC N/A 06/25/2017 COLONOSCOPY, DIAGNOSTIC performed by Kimani Rojas MD at [facility] ENDOSCOPY Social History Substance Use Topics ??? Smoking status: Former Smoker Quit date: 06/25/2010 ??? Smokeless tobacco: Never Used ??? Alcohol use 1.2 oz/week 2 Glasses of wine per week History Drug Use ??? Yes ??? Special: Marijuana Comment: infrequent Allergies Allergen Reactions ??? Gabapentin (Bulk) Medications: MAR and/or home medications have been reviewed. Physical Exam: Most Recent Vitals: 12/14/17 0751 BP: 145/89 Pulse: Resp: 16 Temp: 37.1 ??C (98.8 ??F) SpO2: 98% Body mass index is 27.46 kg/(m^2). Height: 165.1 cm (5' 5) Weight: 74.8 kg (165 lb) Lab Results Component Value Date WBC 11.4 (H) 12/14/2017 HGB 12.2 12/14/2017 HCT 35.0 (L) 12/14/2017 MCV 92.6 12/14/2017 PLATELET 195 12/14/2017 Lab Results Component Value Date INR 1.0 12/14/2017 Chemistry Component Value Date/Time NA 140 12/14/2017 0000 K 4.6 12/14/2017 0000 CL 103 12/14/2017 0000 CO2 26 12/14/2017 0000 BUN 13 12/14/2017 0000 CREATININE 0.92 12/14/2017 0000 Component Value Date/Time CALCIUM 8.4 (L) 12/14/2017 0000 FAST Scan on arrival to ED: neg ? CT Head/CT C-Spine: IMPRESSION No acute intracranial hemorrhage, depressed calvarial fracture, or cervical vertebral osseous injury identified. ? CT Chest/abdomen/pelvis FINDINGS: CHEST: Lungs/Pleura: Hypoventilatory dependent changes, slightly more prominent in the lingula. No confluent airspace opacity otherwise identified. No pleural effusion or pneumothorax seen. Mediastinum/Margo: Unremarkable. Heart: Unremarkable. Vasculature: Nonaneurysmal thoracic aorta. ? IMPRESSION 1. ??Mildly displaced acute fracture of the LEFT acetabular posterior wall. 2. ??No acute thoracic /lumbar vertebral osseous injury identified; however, the axial images exclude large portions of the spine throughout rendering suboptimal assessment. ?? CT T&L Spine No acute fractures ?? XR Left Knee Oblique and lateral views of the LEFT knee demonstrate no obvious displaced Fracture ?? XR Right knee Comminuted fracture of the tibial plateau, predominantly involving the lateral aspect extending to the metaphysis as well as the region of the tibial spines with intra-articular extension. Fracture line may be extending across the medial aspect. Hemarthrosis ?? XR Right Wrist Comminuted intra-articular fracture of the distal radial metaphysis with minimal displacement as well as minimal dorsal angulation of the distal components. ?? Incidental Radiographic Findings: None ?? Airway Assessment: Mallampati: II TM distance: >3 FB Neck ROM: limited C collar in place Cardiovascular Assessment: Rhythm: regular Rate: normal Pulmonary Assessment: breath sounds clear to auscultation (-) wheezes Dental Assessment: [facility] [place] Assessment: IV access: Peripheral line Anesthesia Plan: ASA 2 emergent general, with a(n) intravenous induction 52 y.o. female s/p fall. Injuries identified on primary and secondary survey include: 1. Right tibial plateau fracture 2. Right distal radial fracture 3. Left acetabular posterior wall fracture 4. Scattered ecchymosis PMHX: N - oxycodone, IV HM on the floor for pain. NO significant neurological history. CV - denies significant CV history P - denies significant pulmonary history. GI - on PPI FENR - adequate renal function and glucose control. H/ID: no history of bleeding problems. No active infections. NPO status: adequate Anesthetic plan: - GETA with IV induction, C spine precuations unless cleared by trauma. - Standard ASA monitors - Dispo: PACU Region - Other Informed Consent: Anesthetic plan and risks discussed with patient. Use of blood products discussed with patient who consented to blood products. Plan discussed with TOWEL CABINET REPAIRER. PAT Staff Note documented in this encounter Plan of Treatment Upcoming Encounters Date Type Department Care Team (Late st Contact Info) Description 01/31/2024 9:15 AM EDT Appointment Hematology [place] [address] 01/31/2024 10:20 AM EDT Office Visit [place] [address] Rebecca Small MD [facility] [place] [address] 08/01/2024 11:30 AM EDT Office Visit Dermatology at [facility] [place] [address] [address] Phan Engle MD [facility] DR [address] [place] [address] documented as of this encounter Visit Diagnoses Not on filedocumented in this encounter Administered Medications Inactive Administered Medications - up to 3 most recent administrations Medication Order MAR Action Action Date Dose Rate Site ceFAZolin (ANCEF) 1g in dextrose 5% 50mL PRN, Starting on Wed12/14/17 at 1002, Until Wed12/14/17 at 1354, Administer over 30 Minutes, Anesthesia Intra-op Given 12/14/2017 1:02 PM EDT 2 g Given 12/14/2017 10:02 AM EDT 2 g dexamethasone (DECADRON) injection PRN, Starting on Wed12/14/17 at 1109, Until Wed12/14/17 at 1354, Anesthesia Intra-op, Routine Given 12/14/2017 11:09 AM EDT 8 mg fentaNYL 50 mcg/mL multi-dose injection PRN, Starting on Wed12/14/17 at 0947, Until Wed12/14/17 at 1354, Pain, Anesthesia Intra-op, Routine Given 12/14/2017 12:06 PM EDT 50 mcg Given 12/14/2017 11:09 AM EDT 50 mcg Given 12/14/2017 10:30 AM EDT 50 mcg ketamine (KETALAR) 10 mg/mL injection CONTINUOUS PRN, Starting on Wed12/14/17 at 1051, Until Wed12/14/17 at 1354, Anesthesia Intra-op, Routine New Bag 12/14/2017 10:51 AM EDT 5 mcg/kg/min 2.2 mL/hr lidocaine (PF) (XYLOCAINE) 100 mg/5 mL (2 %) injection PRN, Starting on Wed12/14/17 at 0947, Until Wed12/14/17 at 1354, Anesthesia Intra-op, Routine Given 12/14/2017 9:47 AM EDT 20 mg midazolam (PF) (VERSED) 1 mg/mL multi-dose injection PRN, Starting on Wed12/14/17 at 0938, Until Wed12/14/17 at 1354, Sleep, Anesthesia Intra-op, Routine Given 12/14/2017 9:38 AM EDT 1 mg ondansetron (ZOFRAN) injection PRN, Starting on Wed12/14/17 at 1316, Until Wed12/14/17 at 1354, Nausea, Anesthesia Intra-op, Routine Given 12/14/2017 1:16 PM EDT 8 mg propofol (DIPRIVAN) 10 mg/mL bolus injection (Anesthesia) PRN, Starting on Wed12/14/17 at 0947, Until Wed12/14/17 at 1354, Anesthesia Intra-op Given 12/14/2017 9:47 AM EDT 180 mg propofol (DIPRIVAN) infusion CONTINUOUS PRN, Starting on Wed12/14/17 at 0957, Until Wed12/14/17 at 1354, Anesthesia Intra-op, Routine New Bag 12/14/2017 9:57 AM EDT 30 mcg/kg/min 13.5 mL/hr rocuronium (ZEMURON) multi-dose injection PRN, Starting on Wed12/14/17 at 0947, Until Wed12/14/17 at 1354, Anesthesia Intra-op, Routine Given 12/14/2017 9:47 AM EDT 30 mg documented in this encounter Care Teams Investment Recovery Technician Relationship Specialty Start Date End Date Keiko Reddy MD [address] [address] PCP - General Family Medicine 06/18/17 05/15/18 documented as of this encounter
--- OUTSIDE RECORDS SUMMARY | 2023-12-15 01:18 | XMS_ITS | Encounter Summary ---
Author Organization [facility] Address [facility] [place] [address] Care Team Providers Care Photographic Aide Name Role Phone Keiko Reddy MD Primary Care Provider [phone] Encounter Details Date Type Department Care Team (Latest Contact Info) Description 12/13/2017 12:15 AM EDT - 12/13/2017 12:19 AM EDT Hospital Encounter [place] [address] Discharge Disposition: Home Social History Tobacco Use [...] suppository rectally daily as needed (constipation). 12/24/2017 8 cyclobenzaprine (FLEXERIL) 10 mg Tablet Take 1 [...] 12/24/2017 01/04/2018 documented as of this encounter Plan of Treatment Upcoming Encounters Date Type Department Care Team (Late st Contact Info) Description 01/31/2024 9:15 AM EDT Appointment Hematology [place] [address] 01/31/2024 10:20 AM EDT Office Visit [place] [address] Rebecca Small MD [facility] DR [place] [address] 08/01/2024 11:30 AM EDT Office Visit Dermatology at [place] [address] [place] [phone] Phan Engle MD [facility] DR JESS HER[place] [address] documented as of this encounter Procedures Procedure Name Priority Date/Time Associated Diagnosis Comments FILM LIBRARY STORAGE ONLY CT CHEST ABDOMEN PELVIS STAT 12/13/2017 12:15 AM EDT documented in this encounter Results * Film Library- Storage Only CT Chest Abdomen Pelvis (12/13/2017 12:15 AM EDT) Narrative BECKY - 12/13/2017 10:11 PM EDT This exam is for storage only and is auto-finalizing. Deion Henriquez MD IMG FILM LIBRARY OR DERABLES Performing Organization Address City/State/[facility] Co de Phone Number [place], [place] documented in this encounter Visit Diagnoses Not on filedocumented in this encounter Care Teams Photographic Aide Relationship Specialty Start Date End Date Keiko Reddy MD [address] [address] PCP - General Family Medicine 06/18/17 05/15/18 documented as of this encounter
--- OUTSIDE RECORDS SUMMARY | 2023-12-15 01:18 | XMS_ITS | Encounter Summary ---
Author Organization [facility] Address [facility] [place] [address] Care Team Providers Care Nut Culler Name Role Phone Keiko Reddy MD Primary Care Provider [phone] Reason for Visit * Reason Comments Hospital [...] Expiration Date Visits Re quested Visits Authorized [id number] 1 1 Encounter Details Date Type Department Care Team (Late st Contact Info) Description 12/14/2017 8:45 AM EDT - 12/14/2017 11:43 AM EDT Surgery [place] [address] Reinaldo Romero MD [facility] [place] [address] @ORIF TIBIAL PLATEAU (PROXIMAL) UNICONDYLAR (WRVU 13.41) Social History Tobacco Use Types Packs/Day Years [...] Daphne Pickard Patient Age: 52 y.o. Language: Maldivian Race: White Ethnicity: Not nor Admit date: [...] 11:00 AM Heather Colon PA [facility] [address] [place] [address] Inpatient Provider Contact Information: Reinaldo Romero MD Orthopedics: [phone] After hours and weekends, call [facility] Middleware Administrator, , and have the Orthopedic resident paged. [...] did well post- operatively. On POD#1 the MEDICAL TECHNICAL WRITER was discontinued and the patient was started [...] signs and determined safe for discharge to senior care facility. Vital Signs at Discharge: Weight: Wt [...] rendering suboptimal assessment. Electronically signed by: Jhonatan Npaier Radiology,at 12/13/2017 11:35 PM Request For 2nd [...] pain controlled on oral medications. Discharge to: [facility] Address: [address] [place] [address] [place] [address] Updated Allergies/ADRs: No Known Allergies Immunizations Given [...] Activity: Non weight bearing bilateral lower extremities. Charlotte Brace locked in extension right lower extremity. May use right upper casted arm to assist with transfers. Will need slide board orlift to transfer from bed to chair/wheelchair with staff assistance. When reclining in bed, may open the Bishnu Brace 1-2 times a day to inspect the skin. Re-secure the Charlotte after. 3. Diet: Regular but increase fluids and fiber while on narcotic pain meds 4. Milan/Sutures: Absorbable sutures right lower leg and upper arm. Removal not needed. Milan left hip to be removed in 14 [...] with waterproof dressing until zuleyka are removed. [place] plastic bag taped at the top over the right lower extremity Charlotte brace should be done to keep the Charlotte and wound dry. DO NOT submerge the [...] both of your legs. 2. Keep the Charlotte Brace on your right leg locked in extension. When reclining in bed, may open the Charlotte Brace 1-2 times a day to inspect the skin. Re- secure the Charlotte after. 3. Remember to use a slide [...] bowel movement. You can also take an shwj-bko-igruqoj medication, Miralax if needed to combat constipation. [...] with waterproof dressing until zuleyka are removed. [place] plastic bag taped at the top over the right lower extremity Bishnu brace should be done to keep the Charlotte and wound dry. DO NOT submerge the [...] skin and wound problems. Call your doctor ([phone]) if you develop: 1. Fever greater than [...] 1. You will have follow-up appointments at [facility] as indicated in Future Appointment and Orders. [...] Clin 01/04/2018 11:00 AM Heather Colon PA [facility] If you have questions or concerns: [...] AM [facility] DX ROOM 9 [facility] at [place] [phone] Please go to [facility] Area 3T ([place] Location). 01/04/2018 7:45 AM [facility] [place] [phone] Please go to [facility] ([place] [facility]). 01/04/2018 8:00 AM [facility] [place] [phone] Please go to [facility] ([place] Location). 01/04/2018 9:45 AM [facility] 3 [facility] [place] [phone] Please go to [facility] ([place] Location). 01/04/2018 10:00 AM [facility] [place] [phone] Please go to [facility] ([place] Location). 01/04/2018 10:15 AM [facility] DX [facility]OM 3 [facility] [place] [phone] Please go to [facility] 3T ([place] Location). 01/04/2018 11:00 AM Heather Colon PA Orthopaedics at [place] [phone] Future Orders Complete By Expires Full code [...] discussion: Primary Care Provider: Keiko Reddy MD [phone] Discharge References/Attachments INDWELLING URINARY CATHETER CARE: GENERAL INFO (BERMUDIAN) documented in this encounter Discharge Instructions * [...] bowel movement. You can also take an swah-twl-kjyxoth medication, Miralax if needed to combat constipation. [...] with waterproof dressing until zuleyka are removed. [place] plastic bag taped at the top over the right lower extremity Charlotte brace should be done to keep the Charlotte and wound dry. DO NOT submerge the [...] skin and wound problems. Call your doctor ([phone]) if you develop: 1. Fever greater than [...] 1. You will have follow-up appointments at [facility] as indicated in Future Appointment and Orders. [...] 11:00 AM Heather Colon PA [facility] If you have questions or concerns: Wednesday through Wednesday, 8 AM - 5 PM, please call Wenceslao Burnett MD's office at . If it is after 5 PM or on the weekend, please call and ask to speak with the Orthopedic resident on-call. * Attachments The following attachments cannot be sent through Care Everywhere. * INDWELLING URINARY CATHETER CARE: GENERAL INFO (BERMUDIAN) documented in this encounter Medications at Time [...] called and given to HAYLEY Barkley at [facility]. * Kaley Torres RN - 12/24/2017 11:57 AM EDT Office of Care Management/Hardware Trainer Patient Name: Daphne Pickard : 1965 Patient has been offered a snf bed at [facility] for today. [facility] arranged for a 1:30 transport. Ambulance will need: Medicare ambulance form completed and signed (MD or Marble Mechanic Helper RN/ELECTRONICS PARTS SALES REPRESENTATIVE) Copy of patient demographics [place] Out of Hospital DNR/DNI order, if active No MD to MD report necessary Please call Nursing Report to , ask for metal furrer. Info to accompany patient: Narcotic Prescriptions Copies of Medication Administration Records and IV sheets for past 10 days. Plan: Hardware Trainer will be available to the patient and Marble Mechanic Helper-RN and/or Social Workerfor further assistance. Patient will be discharged to: [facility] [address] [address] KALEY TORRES RN, Hardware Trainer * Sol Boudreaux MD - 12/24/2017 4:44 [...] Brisk capillary refill distally, fingers warm/well-perfused. RLE: Charlotte brace in place, locked in extension. Mepilex [...] board transfers and left posterior hip precautions. Charlotte beace locked in extension to RLE. Patient may use the RUE in the cast for help with transfers. DVT prophylaxis: Lovenox 30mg BID . Closure: Milan out in 2 weeks (~01/03) Dressing: Mepilex [...] - Afebrile, VSS - Rehab referrals placed, [facility] going for auth Active Hospital Problems [...] Brisk capillary refill distally, fingers warm/well-perfused. RLE: Charlotte brace in place, locked in extension. Mepilex [...] unit kitchen (yogurt, non- dairy milk, etc). Statistical Analyst and pt discussed protein. Pt stated she is consuming protein in her daily nutrition. Pt requested to cancel Boost Plus shakes and fruits at this time she had been receiving for snacks. Statistical Analyst canceled snacks per pt request. Nursing notes [...] Patient medically ready for rehab per provider. [facility] going for insurance authorization. Patient aware and agreable to plan. Will have to transport by ambulance because of injuries. PASSR signed. Packet completed. Sangeetha Page RN Case Manager, [facility] [phone] Pager #[phone] * Nir Bhatti - 12/22/2017 5:55 AM [...] Brisk capillary refill distally, fingers warm/well-perfused. RLE: Charlotte brace in place, locked in extension. Mepilex [...] board transfers and left posterior hip precautions. Charlotte beace locked in extension to RLE. Patient may use the RUE in the cast for help with transfers. DVT prophylaxis: Lovenox 30mg BID . Closure: Milan out in 2 weeks (~01/03) Dressing: Mepilex [...] attempt again tomorrow. Roberto Almodovar PT, DPT 3470 Inpatient Rehabilitation * Sabrina Aranda RN - 12/21/2017 3:20 PM EDT Based on discussions with the multi-disciplinary healthcare team, the patient would benefit from skilled level of care at discharge. ?? I have met with the patient to discuss discharge planning needs. I reviewed the [facility], Office of Care Management letter from the Water Pollution Control Inspector pertaining to rehab referrals. I also reviewed a letter describing our affiliations within the [facility] and educated her abouther right to [...] ?? The [facility] [address] [address] ?? [phone] ?? I mentioned the option of hospitals which offer Swing Beds. Patient declined to provide additional referral choices of any level. ?? Expected date of discharge: Not yet determined. Pt continues to have pain control issues. Note routed to Hardware Trainer who will communicate referrals to facilities and provide any required information. Sabrina Aranda RN, BSN, Marble Mechanic Helper Pager [phone] * Filippo Dickson MD - 12/21/2017 10:10 AM EDT Morning lab work now returned. Hgb 8.7 down from 10.9 pre-operatively for ORIF left acetabulum performed yesterday 12/20. Consistent with acute blood loss anemia following surgery. Will continue to follow. Remainder of CBC, BMP WNL. See progress note by Dr. Dobson for remainder of exam and assessment. Filippo Dickson MD Orthopaedic Surgery, PGY-1 Pager: [phone] * Kimani Dobson MD - 12/21/2017 5:58 [...] Brisk capillary refill distally, fingers warm/well-perfused. RLE: Charlotte brace in place, locked in extension. Mepilex [...] board transfers and left posterior hip precautions. Charlotte beace locked in extension to RLE. Patient [...] hip precautions to LLE. Activity: NWB RLE, Bishnu brace locked in extension to RLE, TDWB [...] 1240 Hand off to HAYLEY Simons 3 glen head. Patient to go to X-ray on route, [...] in RUE or BLE. Has beenNPO since MO for OR today. Active Hospital Problems Diagnosis [...] Brisk capillary refill distally, fingers warm/well-perfused. RLE: Charlotte brace in place, locked in extension. Mepilex [...] for OR this AM Activity: NWB BLE. Charlotte beace locked in extension to RLE. Okay [...] Intake/Output Summary (Last 24 hours) at 12/19/17 0780 Last data filed at 12/19/17 0400 Gross [...] ORIF left acetabulum tomorrow. Activity: NWB BLE. Charlotte beace locked in extension to RLE. Okay [...] ??C (97.9 ??F)-37.4 ??C (99.3 ??F)] Resp: [14-18] BP: (108-116)/(65-78) Intake/Output Summary (Last 24 hours) [...] distally, fingers warm/well-perfused. RLE: Mepilex dressing c/d/i Charlotte brace in locked in extension in place. [...] after midnight - NBO placed -Last BM: SENIOR MEDIA PLANNER ?? RENAL: - trend BMP daily till [...] [] Incidental Findings Form Completed Jason Shannon, CEPHALOMETRIC ANALYST 12/16/2017 Trauma pager [phone] Acute Care Surgery Attending Addendum: I have [...] minimumof two midnights or is on the [facility] inpatient only procedure list (status C) due [...] distally, fingers warm/well-perfused. RLE: Mepilex dressing c/d/i Charlotte brace in locked in extension in place. [...] 12/16/2017 No future appointments. * Jason Shannon, CEPHALOMETRIC ANALYST - 12/15/2017 1:58 PM EDT TRAUMA & [...] is a 52 y.o. female presents to [facility] s/p fall. Description of events leading up to injury includes she was riding a horse when he bucked her off. She landed on her right arm and legbut did not hit her head. No LOC. Immediately after the fall she had significant pain in right knee. Her fiance was able to call EMS. She was taken to [facility] where she was noted to have multiple orthopedic injuries including a right radial and right tibial plateau fracture. Her right arm was placed in a CARMEN splint. She was transferred to [facility] for further care and was hemodynamically normal [...] DIAGNOSTIC performed by Kimani Rojas MD at [facility] HOME MEDICATIONS: No prescriptions prior [...] lives with significant other Jignesh Louise in [place], [place]. In 2nd floor home. One step [...] as tolerated - NBO placed -Last BM: SENIOR MEDIA PLANNER RENAL: - trend BMP daily till stable [...] Completed Jason Shannon APRN 12/15/2017 Trauma pager [phone] * Filippo Dickson MD - 12/15/2017 1:46 [...] discussed and all of herquestions were answered. Fiilppo Dickson MD Orthopaedic Surgery, PGY-1 Pager: [phone] * Katherin Beltrán DT - 12/15/2017 10:45 [...] per pt) and a vanilla Boost Plus. Statistical Analyst ordered said snack at time of visit. Pt stated she loves Oui yogurt. Statistical Analyst encouraged pt she can have family bring in favorite foods (yogurt) and place in unit refrigerator with name, room and date. Pt had room service menu at bedside. Writereducated pt on ordering procedure and timelines for hot foods. Statistical Analyst encouraged pt order 3 meals qd with a protein source. Informed pt of small portions are available should she request. Pt agreeable to dietary services open meal containers and cut up all foods daily. Statistical Analyst set up said request. Pt also agreeable to Boost Plus 2x/day at snack times with fresh fruit snacks added (green apple cut up and a banana). Statistical Analyst set up. Patient had no further questions [...] Trauma and Acute Care Surgery Trauma pager [phone] * Bharath Caruso RN - 12/14/2017 4:20 PM EDT Patient returned from surgery via bed. All vitals WNL. Patient remains alert to voice and complaining of pain in right arm. PRN pain medication given. Charlotte brace in place to right leg and [...] up as appropriate. Peter Bynum OT Pager: [phone] * Rocio Sherman RN - 12/14/2017 9:18 [...] Daphne Pickard Level of Activation: alert MR#: [id number] [ ]Scene Call or [ x]Hospital Transfer : 750596 CC/MECHANISM OF INJURY: 52 y.o. Female s/p fall HISTORY OF PRESENT ILLNESS: Daphne Pickard is a 52 y.o. female presents to [facility] s/p fall. Description of events leading up to injury includes she was riding a horse when he bucked her off. She landed on her right arm and legbut did not hit her head. No LOC. Immediately after the fall she had significant pain in right knee. Her fiance was able to call EMS. She was taken to [facility] where she was noted to have multiple orthopedic injuries including a right radial and right tibial plateau fracture. Her right arm was placed in a CARMEN splint. She was transferred to [facility] for further care and was hemodynamically normal [...] DIAGNOSTIC performed by Kimani Rojas MD at [facility] ALLERGIES: Allergies Allergen Reactions ??? [...] Negative mcL Appearance UA Clear Clear Spec Watkins UA >1.035 (H) 1.002 - 1.030 Color [...] DISPO: floor Padmaja Grady MD Trauma Surgery #[id number] 12/14/2017 ADDENDUM: I have independently seen and [...] Updated report given to HAYLEY Frazier, 3 Peter. Pending transpo. * Bee Cardozo RN - 12/14/2017 1:55 AM EDT Report called to HAYLEY Frazier, 3 Peter. Pending admit after ortho completes splinting. * Kimberly Lin MD - 12/14/2017 12:23 AM EDT Daphne Pickard is a 52 y.o. female who arrives via EMS as trauma consult from [facility] History obtained by: hospital records, EMS, patient [...] mg, Subcutaneous, 2 times per day, Elver Hudldeston MD ??? acetaminophen (TYLENOL) tablet 1,000 mg, [...] Control Outcome: Ongoing (Interventions Implemented as Appropriate) 12/23/171312 Safety Interventions Isolation Precautions standard precautions maintained [...] Pt educated on LB dressing technique w/ food and beverage server supine. Pt is extremely motivated and will greatly benefit from ongoing therapeutic interventions to achieve pt's and therapy goals. Please refer to associated flowsheet data listed below for treatment session details. Staff Recommendations: ?? Mechanical lift ?? Encourage OOB activity and participation in all self care tasks Anticipated Discharge Disposition: inpatient rehabilitation facility, senior care facility Pager: [phone] Peter Bynum OT 12/22/2017 Occupational Therapy Rehabilitation Department 12/22/17 8438 Rehab Evaluation Document Type therapy note (daily [...] Living Environment Living Environment Comment Lives with pame in their own home. Full flight of [...] Mobility Assessment/Treatment Assistive Device (Bed Mobility) leg fur repairer;other (see comments) Pisylw-rf-Phx [place] (Bed Mobility) moderate assist (50% patient effort);2 person assist required Pkp-bk-Mznwpl [place] (Bed Mobility) moderate assist (50% patient effort);2 person assist required Impairments (Bed Mobility) pain;ROM (range of motion) decreased;balance impaired;strength decreased Comment (Bed Mobility) Pt performed be dmobility w/ increased time, pt long sitting EOB w/ chair support LE Transfer Assessment/Treatment Bed-Chair [place] (Transfers) moderate assist (50% patient effort);2 person assist required Impairments (Transfers) pain;ROM (range of motion) decreased;strength decreased Comment (Transfers) Pt performed backward scoot from bed>w/c,assist w/ kim pad and support forLE. Increased time and increased pain noted Bathing Assessment/Training Position (Bathing) sitting [place] Level (Bathing) moderate assist (50% patient effort) Comment (Bathing) Pt required washed trunk, pt required assist to sponge bath her back and LE Upper Body Dressing Assessment/Training Position (UB Dressing) sitting [place] Level (UB Dressing) set up required;supervision required [...] protect/position healing structures Wear Schedule (Orthosis) wear time analysis clerk Adjustment Comment (Orthosis) no adjustment Plan of [...] (TBD, W/C) Anticipated Discharge Disposition inpatient rehabilitation facility;senior care facility * Plan of Care - Roberto [...] lift to commode/chair Anticipated Discharge Disposition: (S) senior care facility Roberto Almodovar PT Pager: [phone] Inpatient Physical Therapy 12/22/17 1446 Rehab Evaluation Document Type therapy note (daily [...] Mobility Assessment/Treatment Assistive Device (Bed Mobility) leg fur repairer;draw sheet (HOB elevated ) Mcinin-dc-Nig [place] (Bed Mobility) moderate assist (50% patient effort);2 person assist required;verbal cues required Impairments (Bed Mobility) ROM (range of motion) decreased;strength decreased;flexibility decreased;pain Comment (Bed Mobility) supine>long sitting; increased time; extra assist needed; long sitting atEOB; feet supported on a chair with pillows Scoot/Bridge [place] (Bed Mobility) moderate assist (50% patient effort);2 person assist required;verbal cues required Safety Issues (Bed Mobility) decreased use of arms for pushing/pulling;decreased use of legs for bridging/pushing Transfer Assessment/Treatment Bed-Chair [place] (Transfers) moderate assist (50% patient effort);2 person assist required Vfe-Brmho-Qvw Assistive Device (Transfers) (backwards/forwards) Maintain Weight Bearing [...] to sit/sit to supine Bed Mobility Goal, [place] Level minimum assist (75% patient effort) Bed Mobility Goal, Assistive Device leg fur repairer Bed Mobility Goal, Date Goal Reviewed 12/22/17 Bed Mobility Goal, Outcome Achieved goal ongoing Transfer Training Goal Transfer Training Goal, Date Established 12/15/17 Transfer Training Goal, Time to Achieve 30 days Transfer Training Goal, Activity Type xml-la-ljhev/ykily-ih-nnk Transfer Train Goal, [place] Level moderate assist (50% patient effort) Transfer [...] Needs at Discharge wheelchair Anticipated Discharge Disposition senior care facility * Plan of Care - Cary Urrutia RN - 12/22/2017 6:59 AM EDT Problem: Skin Integrity Impairment, Risk/Actual (Adult) Goal: Identify Related Risk Factors and Signs and Symptoms Related risk factors and signs and symptoms are identified upon initiation of Human Response Clinical Practice Guideline (CPG) Outcome: Ongoing (Interventions Implemented as Appropriate) 12/21/17 0759 12/21/17 172 Skin Integrity Impairment, Risk/Actual Skin Integrity Impairment, [...] Ongoing (Interventions Implemented as Appropriate) 12/21/17 172 Coping/Psychosocial Plan Of Care Reviewed With patient [...] Joyce Parra - 12/20/2017 11:01 AM EDT [facility] Operative Note Patient Name: Daphne Pickard : [id number] MR#: [id number] Case Date: 12/20/2017 ?? Surgeon: Surgeon(s) and [...] which had been applied preoperatively in accordancewith [facility] policy. Anesthesia was induced while the patient [...] surgical timeout was performed in accordance with [facility] policy. Site of intended incision was drawn [...] Implant Name Type Inv. Item Serial No. Retail Worker Lot No. LRB No. Used Action WIRE,K,THRDD GWRE,[id number] ([id number]) - [id number] IMPLANTS WIRE,K,THRDD GWRE,[id number] ([id number]) [facility] Left 1 Implanted and Explanted SCREW,CRTX,STAP,2.7X32MM ([id number]) - [id number] IMPLANTS SCREW,CRTX,STAP,2.7X32MM ([id number]) [facility] Left 1 Implanted SCREW,CRTX,STAP,2.7X28MM ([id number]) - [id number] IMPLANTS SCREW,CRTX,STAP,2.7X28MM ([id number]) [facility] Left 1 Implanted and Explanted SCREW,CRTX,STAP,2.7X26MM ([id number]) - [id number] IMPLANTS SCREW,CRTX,STAP,2.7X26MM ([id number]) [facility] Left 1 Implanted PLATE,RECON.8H,3.5X94MM ([id number]) - [id number] IMPLANTS PLATE,RECON.8H,3.5X94MM ([id number]) [facility] Left 1 Implanted SCREW,CRTX,STAP,3.5X34MM ([id number]) - [id number] IMPLANTS SCREW,CRTX,STAP,3.5X34MM ([id number]) [facility] Left 3 Implanted PIN,KWIRE,TROC 1 ED,NS,[id number] ([id number]) - [id number] IMPLANTS PIN,KWIRE,TROC 1 ED,NS,1H396LD ([id number]) [facility] Left 2 Implanted and Explanted SCREW,CRTX,STAP,3.5X75MM ([id number]) - [id number] IMPLANTS SCREW,CRTX,STAP,3.5X75MM ([id number]) [facility] Left 1 Implanted and Explanted SCREW,CRTX,STAP,3.5X38MM ([id number]) - [id number] IMPLANTS SCREW,CRTX,STAP,3.5X38MM ([id number]) [facility] Left 1 Implanted and Explanted SCREW,CRTX,STAP,3.5X36MM ([id number]) - [id number] IMPLANTS SCREW,CRTX,STAP,3.5X36MM ([id number]) [facility] Left 1 Implanted SCREW,CRTX,STAP,3.5X40MM ([id number]) - [id number] IMPLANTS SCREW,CRTX,STAP,3.5X40MM ([id number]) [facility] Left 1 Implanted SCREW,CRTX,STAP,2.7X28MM ([id number]) - [id number] IMPLANTS SCREW,CRTX,STAP,2.7X28MM ([id number]) [facility] Left 1 Implanted and Explanted SCREW,CRTX,STAP,3.5X28MM ([id number]) - [id number] IMPLANTS SCREW,CRTX,STAP,3.5X28MM ([id number]) [facility] Left 1 Implanted Infection Bundle used? N/A [...] Operative Note Patient Name: Daphne Pickard : [id number] MR#: [id number] Case Date: 12/20/2017 Surgeon: Surgeon(s) and Role: [...] cast intact, no n/t. RLE dressing c/d/i. [place] locked in extension. Elevated throughout shift. +dp [...] assist with ADL's ? Surveillance [continuous indirect monitoring]:?Isako, Purposeful Rounding, Nurse Knowledge Exchange ? Patient-specific [...] cast intact, no n/t. RLE dressing c/d/i. [place] locked in extension. Elevated throughout shift. +dp [...] cast intact, no n/t. RLE dressing c/d/i. [place] locked in extension. Elevated throughout shift. +dp [...] tasks Anticipated Discharge Disposition: inpatient rehabilitation facility, senior care facility Pager: [phone] Peter Bynum, OT 12/17/2017 Occupational Therapy Rehabilitation Department 12/17/17 5778 Rehab Evaluation Document Type therapy note (daily [...] Living Environment Living Environment Comment Lives with ehidi in their own home. Full flight of [...] Mobility Assessment/Treatment Assistive Device (Bed Mobility) leg fur repairer;draw sheet Uusuer-wd-Esi [place] (Bed Mobility) minimum assist (75% patient effort);moderate assist (50% patient effort);verbal cues required Impairments (Bed Mobility) ROM (range of motion) decreased;strength decreased;pain Comment (Bed Mobility) Pt performed bed mobility w/ assist for RLE and us of drawsheet to get into position for backward scoot transfer. Transfer Assessment/Treatment Bed-Chair [place] (Transfers) minimum assist (75% patient effort);moderate assist (50% patienteffort);verbal cues required Kzu-Yqhvp-Xbk Assistive Device (Transfers) (none) Impairments (Transfers) pain;ROM [...] Discharge (TBD) Anticipated Discharge Disposition inpatient rehabilitation facility;senior care facility * Plan of Care - Roberto [...] of bed Precautions Comments: Non-weight bearing BLE. [place] brace on RLE, locked in extension at [...] chair for meals Anticipated Discharge Disposition: (S) senior care facility Roberto Almodovar, PT Pager: [phone] Inpatient Physical Therapy 12/17/17 4748 Rehab Evaluation Document Type therapy note (daily [...] of bed Precautions Comments Non-weight bearing BLE. [place] brace on RLE, locked in extension at all times. Non-weight bearing RUE. can platform weight bear through RUE Treatment Number PT 2 Pain Scale/Rating Pain Assessment Scale Numbers (Numeric Rating Pain Scale) Pain Level 8 Mobility Assessment/Training Additional Documentation Transfer Assessment/Treatment (Group) Bed Mobility Assessment/Treatment Assistive Device (Bed Mobility) leg fur repairer;draw sheet Aowrse-cg-Wbg [place] (Bed Mobility) minimum assist (75% patient effort);moderate assist (50% patient effort) Comment (Bed Mobility) moving around in bed to sit up on edge with back on the edge Scoot/Bridge [place] (Bed Mobility) minimum assist (75% patient effort);moderate assist (50% patient effort) Transfer Assessment/Treatment Bed-Chair [place] (Transfers) minimum assist (75% patient effort);moderate assist (50% patienteffort) Gyb-Hzlkc-Jjv Assistive Device (Transfers) (backwards/forwards) Comment (Transfers) backwards/forwards transfer on R side of bed back into recliner chair; use of leg fur repairer; vc's for sequencing and technique Orthotics/Prosthetics Additional [...] to sit/sit to supine Bed Mobility Goal, [place] Level minimum assist (75% patient effort) Bed Mobility Goal, Assistive Device leg fur repairer Bed Mobility Goal, Date Goal Reviewed 12/17/17 Bed Mobility Goal, Outcome Achieved goal ongoing Transfer Training Goal Transfer Training Goal, Date Established 12/15/17 Transfer Training Goal, Time to Achieve 30 days Transfer Training Goal, Activity Type vhs-mk-bfcbv/bxqwv-sn-gjt Transfer Train Goal, [place] Level moderate assist (50% patient effort) Transfer [...] Needs at Discharge wheelchair Anticipated Discharge Disposition senior care facility * Plan of Care - Arabella [...] controlled with PRN oxycodone. Ramirez draining CYU. [place] brace to RLE, hard cast to RUE. [...] chair when able Anticipated Discharge Disposition: (S) senior care facility Roberto Almodovar, PT Pager: [phone] Inpatient Physical Therapy 2017 PT Evaluation Code [...] with her heidi in their home in [place], [place]. 18 steps to enter the home. Has 3 horses at home, 4 labs and 2 cats Functional Level Prior Prior Functional Level Comment Reports she has a sister that is a PT. may be able to obtain DME from family members. 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 Vital Signs SpO2 97 [...] Mobility Assessment/Treatment Assistive Device (Bed Mobility) leg fur repairer;draw sheet;bed rails (elevated HOB) Sruftp-rw-Iez [place] (Bed Mobility) minimum assist (75% patient effort);2 person assist required;moderate assist (50% patient effort) Eip-dx-Jhstjn [place] (Bed Mobility) maximum assist (25% patient effort);2 person assist required;verbal cues required Impairments (Bed Mobility) flexibility decreased;pain;ROM (range of motion) decreased;strength decreased Comment (Bed Mobility) increased time 2/2 pain; able to move LLE not not RLE; vc's for technique; use of draw sheet Scoot/Bridge [place] (Bed Mobility) minimum assist (75% patient effort) [...] protect/position healing structures Wear Schedule (Orthosis) wear time analysis clerk Plan of Care Review Plan Of Care Reviewed With patient Physical Therapy Goal Types Physical Therapy Goal Types Bed Mobility Goal (Group);Transfer Training Goal (Group);Physical Therapy Goal (Group) Bed Mobility Goal Bed Mobility Goal, Date Established 12/15/17 Bed Mobility Goal, Time to Achieve 30 days Bed Mobility Goal, Activity Type roll left/roll right;supine to sit/sit to supine Bed Mobility Goal, [place] Level minimum assist (75% patient effort) Bed Mobility Goal, Assistive Device leg fur repairer Transfer Training Goal Transfer Training Goal, Date Established 12/15/17 Transfer Training Goal, Time to Achieve 30 days Transfer Training Goal, Activity Type quu-ka-utrkv/grrll-sj-ign Transfer Train Goal, [place] Level moderate assist (50% patient effort) Transfer [...] Needs at Discharge wheelchair Anticipated Discharge Disposition senior care facility General Interventions Additional Documentation Planned Therapy [...] all times) Precautions Comments: Non-weight bearing BLE. [place] brace on RLE, locked in extension at [...] tasks Anticipated Discharge Disposition: inpatient rehabilitation facility, senior care facility Pager: [phone] Peter Bynum, OT 12/15/2017 Occupational Therapy Rehabilitation [...] all times) Precautions Comments Non-weight bearing BLE. [place] brace on RLE, locked in extension at [...] (Bed Mobility) bed rails;draw sheet (HOB raised) Aqmspx-vs-Hzq [place] (Bed Mobility) minimum assist (75% patient effort);2 person assist required;verbal cues required;moderate assist (50% patient effort) Hsg-dt-Xibygw [place] (Bed Mobility) maximum assist (25% patient effort);2 [...] Pt issued and educated on use of food and beverage server. Additional Documentation Bathing Assessment/Training (Group);Upper Body Dressing Assessment/Training (Group);Grooming Assessment/Training (Group);IADL Assessment/Training: Comment (Row) Bathing Assessment/Training Assistive Devices (Bathing) (bath wipes) Position (Bathing) sitting [place] Level (Bathing) moderate assist (50% patient effort) Impairments (Bathing) pain;ROM (range of motion) decreased;strength decreased;balance impaired Comment (Bathing) Pt performed sponge bath to her anterior thorax/abdomen. Pt assisted w/ her back,LE, and tina-care. Pt assisted donning shampoo cap and w/ application. Upper Body Dressing Assessment/Training Position (UB Dressing) sitting [place] Level (UB Dressing) minimum assist (75% patient [...] (TBD) Anticipated Discharge Disposition inpatient rehabilitation facility, senior care facility General Therapy Interventions Additional Documentation Planned [...] is interested and I will bring two [facility] for she and her heidi to [...] to advise, support. One sister works at [employer]. Her mother lives in the local area also. Behavioral Health History: no Substance Use/Abuse: none Other Pertinent/Service Specific Information: Patient will have FMLA and STD paperwork to have completed. Heidi bringing that when he comes to visit today. Health/Prescription Coverage: Primary Insurance: CIGNA Secondary Insurance: N/A Prescription Coverage: CIGNA Preferred Pharmacy: none Other: none Primary Care Provider: Keiko Reddy MD [phone] Patient/Caregiver Goals of Treatment: Home when medically able. Potential Needs for Transition of Care: Rehab/SNF: patient anticipates she will need rehab/snf. Her preference would be [facility]. Home Health: yes at [...] transition of care planning. SHERI UPTON Pager: [phone] * Plan of Care - Jamar Wolf [...] OUTCOME EVALUATION: Goal: Individualization & Mutuality 12/14/17 2551 Mutuality/Individual Preferences What Anxieties, Fears or Concerns Do You Have About Your Health or Care? none What Questions Do You Have About Your Health or Care? when can I have pain meds? What Information Would Help Us Give You More Personalized Care? none Individualization Patient Specific Goals pain management Goal: Fall Prevention-Safe Patient Handling 12/14/17 0752 12/14/17 1500 12/14/17 230 [place] Fall Risk History of Falling 0 [...] listening utilized Goal: Discharge Needs Assessment 12/14/17 041 Discharge Needs Assessment Concerns To Be Addressed no discharge needs identified;denies needs/concerns at this time Readmission Within The Last 30 Days no previous admission in last 30 days * Op Note - Reinaldo Romero MD - 12/14/2017 4:06 PM EDT [facility] Operative Note Patient Name: Daphne Pickard : [id number] MR#: [id number] Case Date: 12/14/2017 Surgeon: Surgeon(s) and Role: [...] a 52-year-old female who presented to [facility] with signs symptoms and radiographic findings [...] in the preoperative holding area where [place] was placed on the correct operative right [...] incision. A timeout was held according to [facility] protocol confirming thecorrect side site's and procedures. [...] patient's leg was then placed into a [place] brace locked in extension. Attention was then [...] Implant Name Type Inv. Item Serial No. Retail Worker Lot No. LRB No. Used Action PLATE,VA-LCP,TIB,4H,RT,87MM ([id number]) - [id number] IMPLANTS PLATE,VA- LCP,TIB,4H,RT,87MM ([id number]) [employer] - DEPUY SYNT Right 1 Implanted SCREW,CRTX,STAP,3.5X40MM ([id number]) - [id number] IMPLANTS SCREW,CRTX,STAP,3.5X40MM ([id number]) [employer] - DEPUY SYNT Right 1 Implanted SCREW,OMER,ANG,LCK,3.5X65MM ([id number]) - [id number] IMPLANTS SCREW,OMER,ANG,LCK,3.5X65MM ([id number]) [employer] - DEPUY SYNT Right 3 Implanted SCREW,OMER,ANG,LCK,3.5X60MM ([id number]) - [id number] IMPLANTS SCREW,OMER,ANG,LCK,3.5X60MM ([id number]) [employer] - DEPUY SYNT Right 1 Implanted SCREW,OMER,ANG,LCK,3.5X46MM ([id number]) - [id number] IMPLANTS SCREW,OMER,ANG,LCK,3.5X46MM ([id number]) [employer] - DEPUY SYNT Right 1 Implanted SCREW,OMER,ANG,LCK,3.5X50MM ([id number]) - [id number] IMPLANTS SCREW,OMER,ANG,LCK,3.5X50MM ([id number]) [employer] - DEPUY SYNT Right 1 Implanted SCREW,OMER,ANG,LCK,3.5X56MM ([id number]) - [id number] IMPLANTS SCREW,OMER,ANG,LCK,3.5X56MM ([id number]) [employer] - DEPUY SYNT Right 1 Implanted SCREW,OMRE,ANG,LCK,3.5X32MM ([id number]) - [id number] IMPLANTS SCREW,OMER,ANG,LCK,3.5X32MM ([id number]) [employer] - DEPU[employer] SYNT Right 1 Implanted SCREW,CNCL,STAP,P-T,3.5X70MM ([id number]) - [id number] IMPLANTS SCREW,CNCL,STAP,P- T,3.5X70MM ([id number])[employer] - DEPUY SYNT Right 1 Implanted BONE,CRUSHED,CANCELLOUS,30CC ([id number]) (AUTOREQ) - [id number] IMPLANTS BONE,CRUSHED,CANCELLOUS,30CC([id number]) (AUTOREQ) [facility] Right 1 Implanted PLATE,VLRDSTL,LCP,6H,RT,2.4MM ([id number]) - [id number] IMPLANTS PLATE,VLRDSTL,LCP,6H,RT,2.4MM ([id number]) [employer] - DEPUY SYNT Right 1 Implanted PLATE,RDCTN,WIRTHRD TIP,1.25MM ([id number]) - [id number] IMPLANTS PLATE,RDCTN,WIRTHRD TIP,1.25MM ([id number]) [employer] - DEPUY SYNT Right 3 Implanted and Explanted SCREW,VA,LCK,STAR,2.4X20MM ([id number]) - [id number] IMPLANTS SCREW,VA,LCK,STAR,2.4X20MM ([id number]) [employer] - DEPUY SYNT Right 3 Implanted SCREW,VA,LCK,STAR,2.4X14MM ([id number]) - [id number] IMPLANTS SCREW,VA,LCK,STAR,2.4X14MM ([id number]) [employer] - DEPUY SYNT Right 1 Implanted SCREW,VA,LCK,STAR,2.4X18MM ([id number]) - [id number] IMPLANTS SCREW,VA,LCK,STAR,2.4X18MM ([id number]) [employer] - DEPUY SYNT Right 1 Implanted SCREW,CRTX,STAP,STAR,2.7X12MM ([id number]) - [id number] IMPLANTS SCREW,CRTX,STAP,STAR,2.7X12MM ([id number]) [employer] - DEPUY SYNT Right 3 Implanted Infection Bundle used? No Attestation: Case Date: 12/14/2017 I was present and I participated during the entire procedure (does not need to include opening and closing). Reinaldo Romero MD 12/14/2017 * Brief Op Note - Reinaldo Romero MD - 12/14/2017 1:38 PM EDT Brief Operative Note Patient Name: Daphne Pickard : [id number] MR#: [id number] Case Date: 12/14/2017 Surgeon: Surgeon(s) and Role: [...] and ADLs]: Hands-on Surveillance [continuous indirect monitoring[facility] rounding Patient-specific fall prevention interventions for [...] following the injury She was taken to [facility] where imaging revealed right distal radius fracture, right tibial plateau fracture and left posterior wall acetabular fracture. She was then transferred to [facility] for further management. Patient denies numbness, tingling, weakness, head strike, LOC, or other injuries. Past Medical History: Patient Active Problem List Diagnosis Code ??? Trauma T14.90XA Past Surgical History: Past Surgical History: Procedure Laterality Date ??? PRO COLONOSCOPY, DIAGNOSTIC N/A 06/25/2017 COLONOSCOPY, DIAGNOSTIC performed by Kimani Rojas MD at [facility] Allergies Allergen Reactions ??? Gabapentin [...] distributions Motor intact shoulder abduction, elbow flexion/extension, saxophone assembler, EPL, AIN, IO Brisk capillary refill distally [...] (5/5) shoulder abduction, elbow flexion/extension, wrist flexion/extension, saxophone assembler, EPL,AIN, IO Brisk capillary refill distally 2+ [...] the patient elected to proceed. Per the [facility] Bed Side Check List: the patient was [...] and treatment. Please call the orthopaedic resident licensed massage practitioner with any questions or concerns. ?? Nir Bhatti MD Orthopaedic Surgery Pager: [phone] documented in this encounter Plan of Treatment Upcoming Encounters Date Type Department Care Team (Late st Contact Info) Description 01/31/2024 9:15 AM EDT Appointment Hematology [place] [address] 01/31/2024 10:20 AM EDT Office Visit [place] [address] Rebecca Small MD [facility] [address] 08/01/2024 11:30 AM EDT Office Visit Dermatology at [address] [address] Phan Engle MD [facility] [address] [place] [address] Scheduled Orders Name Type Priority Associated Diagnoses [...] LAT RIGHT Routine 01/04/2018 9:39 AM EDT XR WRIST 3 VIEWS RIGHT Routine 01/04/2018 9:39 AM EDT HEMOGRAM Routine 12/22/2017 9:56 AM EDT DIFFERENTIAL, AUTOMATED Routine 12/22/2017 9:56 AM EDT CBC (WITH DIFF) Routine [...] 12/20/2017 8:08 AM EDT TYPE AND SCREEN ([facility]) STAT 12/20/2017 8:08 AM EDT OPEN TREATMENT, ACETABULAR FX Routine 12/17/2017 7:22 AM EDT HEMOGRAM Routine 12/17/2017 6:55 AM EDT DIFFERENTIAL, AUTOMATED Routine 12/17/2017 6:55 AM EDT CBC (WITH DIFF) Routine 12/17/2017 6:55 AM EDT BASIC METABOLIC PANEL (NON-FASTING) Routine 12/17/2017 6:55 AM EDT HEMOGRAM STAT 12/15/2017 8:22 AM EDT DIFFERENTIAL, AUTOMATED STAT 12/15/2017 8:22 AM EDT CBC (WITH DIFF) STAT 12/15/2017 8:22 AM EDT MAGNESIUM Routine 12/15/2017 8:22 AM EDT BASIC METABOLIC PANEL (NON-FASTING) STAT 12/15/2017 8:22 AM EDT XR PELVIS MIN 3 VIEWS Routine 12/14/2017 3:35 PM EDT XR WRIST 3 VIEWS RIGHT Routine 12/14/2017 3:34 PM EDT XR KNEE AP & LAT RIGHT Routine 12/14/2017 3:33 PM EDT HIP INTRAOP RADIOLOGIC EXAMINATION, [...] EDT XR WRIST 2 VIEWS RIGHT STAT 12/14/2017 2:28 AM EDT ABORH RECHECK STATUS STAT 12/14/2017 12:30 AM EDT ABO/RH TYPING STAT 12/14/2017 12:30 AM EDT ANTIBODY SCREEN STAT 12/14/2017 12:30 AM EDT TYPE AND SCREEN ([facility]) STAT 12/14/2017 12:30 AM EDT L-LACTATE2 WHOLE BLOOD Routine 12/14/2017 12:15 AM EDT IMPLANTABLE DEVICES SCAN 12/14/2017 12:00 AM EDT SPECIAL TESTER SCAN 12/14/2017 12:00 AM EDT HEMOGRAM STAT 12/14/2017 12:00 AM EDT DIFFERENTIAL, AUTOMATED STAT 12/14/2017 12:00 AM EDT GOLD TUBE HOLD STAT [...] EDT Unchanged alignment of the uncomplicated cortical mqwmh-heo-zrkys fixation of the tibial plateau fracture without [...] the depressed lateral tibial plateau fracture with gnosticist of near-anatomic alignment. No radiographic evidence of [...] the depressed lateral tibial plateau fracture with gnosticist ofnear-anatomic alignment. No radiographic evidence of hardware complication. The fracturelines remain visible on the AP view. Interval resolution of the postoperative soft tissue air. IMPRESSION Unchanged alignment of the uncomplicated cortical ffelo-fqc-jlcil fixationof the tibial plateau fracture without radiographic [...] basal joint of the thumb. Procedure Note Ansia Briscoe MD - 01/04/2018 EXAMINATION: XR WRIST [...] 9:56 AM EDT) Neutrophils % 57.1 % [facility] Neutr Abs (ANC) 3.99 1.70 - 6.10 x10(3)/[facility] Lymphocytes % 27.7 % [facility] Lymphocytes Abs 1.9 0.9 - 3.2 x10(3)/[facility] Monocytes % 13.5 % [facility] Monocyte Abs 0.9 0.3 - 0.9 x10(3)/[facility] Eosinophils % 0.9 % [facility] Eosinophils Abs 0.1 0.0 - 0.4 x10(3)/[facility] Basophils % 0.4 % [facility] Basophils Abs 0.0 0.0 - 0.1 x10(3)/[facility] Immature Gran % 0.40 % [facility] Comment: Immature granulocytes(IG's)percentage and absolute count will include metamyelocytes, myelocytes, and promyelocytes. Blood smears from CBCs yielding IG's will be scanned manually for concordance. If this scan disagrees with the automated IG or if promyelocytes are noted, a manual differential will be performed. Tammi Gran Abs 0.03 0.00 - 0.04 x10(3)/[facility] Blood specimen (specimen) 12/22/2017 9:56 AM EDT 12/22/2017 10:10 AM EDT Narrative Resulting Agency Comment Spec In Lab Vani Hook APRN HEMATOLOGY ORDERABL ES [facility] [place] [address] * (ABNORMAL) Hemogram (12/22/2017 9:56 AM EDT) WBC 7.0 4.0 - 9.5 x10(3)/[facility] RBC 2.92(L) 4.00 - 5.21 x10(6)/[facility] Hemoglobin 9.1(L) 11.7 - 15.5 gm/dL [facility] Hematocrit 27.1(L) 35.7 - 45.8 % [facility] MCV 92.8 82.6 - 94.4 [facility] MCH 31.2 27.1 - 32.0 pg [facility] MCHC 33.6 31.7 - 35.0 gm/dL [facility] Platelets 309 145 - 357 x10(3)/[facility] RDWSD 38.9 37.0 - 46.0 [facility] RDWCV 11.5 11.5 - 14.1 % [facility] MPV 8.4 7.6 - 12.9 [facility] nRBC % Auto 0.0 % [facility] nRBC Abs Auto 0.000 0.000 - 0.000 x10(3)/[facility] Blood specimen (specimen) 12/22/2017 9:56 AM EDT 12/22/2017 10:10 AM EDT Narrative Resulting Agency Comment Spec In Lab Vani Hook APRN HEMATOLOGY ORDERABL ES [facility] [place] [address] * (ABNORMAL) Basic Metabolic Panel (non-fasting) (12/22/2017 9:56 AM EDT) Glucose Lvl 162 65 - 199 mg/dL [facility] Comment:Diabetes: >=200 mg/d L plus symptoms BUN 11 8 - 18 mg/dL [facility] Creatinine 0.73 0.70 - 1.20 mg/dL [facility] Sodium 135 135 - 145 mmol/L [facility] Potassium 4.0 3.5 - 5.0 mmol/L [facility] Comment: Please note: ??Patients with WBC >100,000 may have falsely elevated Potassium levels. ??For accurate Potassium quantification in these patients send serum separator tube (gold top) for subsequent determinations. ??Contact the Clinical Chemistry Laboratory if there are any questions. Chloride 97(L) 98 - 107 mmol/L [facility] CO2 25 22 - 31 mmol/L [facility] Anion Gap 13 5 - 15 mmol/L [facility] Calcium 8.7 8.5 - 10.5 mg/dL [facility] Estimated GFR 95 >=60 mL/min/1. 73 m?? [facility] Comment: The eGFR was calculated using the CKD-EPI equation. As with all creatinine based estimates of kidney function, eGFR values calculated with the CKD-EPI equation are not accurate in patients with acute kidney failure, extremes of body mass or the acutely ill. http://[employer]/[facility] eGFR 110 >=60 mL/min/1. 73 m?? [facility] Comment: The eGFR was calculated using the CKD-EPI equation. As with all creatinine based estimates of kidney function, eGFR values calculated with the CKD-EPI equation are not accurate in patients with acute kidney failure, extremes of body mass or the acutely ill. [email or web address] Blood specimen (specimen) 12/22/2017 9:56 AM EDT 12/22/2017 10:10 AM EDT Narrative Resulting Agency Comment Spec In Lab Vani Hook APRN CHEMISTRY ORDERABLE S [facility] [place] [address] * (ABNORMAL) Basic Metabolic Panel (non-fasting) (12/21/2017 7:04 AM EDT) Glucose Lvl 90 65 - 199 mg/dL [facility] Comment:Diabetes: >=200 mg/d L plus symptoms BUN 15 8 - 18 mg/dL [facility] Creatinine 0.73 0.70 - 1.20 mg/dL [facility] Sodium 138 135 - 145 mmol/L [facility] Potassium 3.9 3.5 - 5.0 mmol/L [facility] Comment: Please note: ??Patients with WBC >100,000 may have falsely elevated Potassium levels. ??For accurate Potassium quantification in these patients send serum separator tube (gold top) for subsequent determinations. ??Contact the Clinical Chemistry Laboratory if there are any questions. Chloride 100 98 - 107 mmol/L [facility] CO2 25 22 - 31 mmol/L [facility] Anion Gap 13 5 - 15 mmol/L [facility] Calcium 8.4(L) 8.5 - 10.5 mg/dL [facility] Estimated GFR 95 >=60 mL/min/1. 73 m?? [facility] Comment: The eGFR was calculated using the CKD-EPI equation. As with all creatinine based estimates of kidney function, eGFR values calculated with the CKD-EPI equation are not accurate in patients with acute kidney failure, extremes of body mass or the acutely ill. http://[employer]/[facility] eGFR 110 >=60 mL/min/1. 73 m?? [facility] Comment: The eGFR was calculated using the CKD-EPI equation. As with all creatinine based estimates of kidney function, eGFR values calculated with the CKD-EPI equation are not accurate in patients with acute kidney failure, extremes of body mass or the acutely ill. [email or web address]://[employer]/[facility] Blood specimen (specimen) 12/21/2017 7:04 AM EDT 12/21/2017 7:25 AM EDT Narrative Resulting Agency Comment Spec In Lab Reinaldo Romero MD CHEMISTRY ORDERABLES [facility] [place] [address] * (ABNORMAL) Hemogram (12/21/2017 7:04 AM EDT) WBC 6.8 4.0 - 9.5 x10(3)/[facility] RBC 2.75(L) 4.00 - 5.21 x10(6)/[facility] Hemoglobin 8.7(L) 11.7 - 15.5 gm/dL [facility] Hematocrit 25.6(L) 35.7 - 45.8 % [facility] MCV 93.1 82.6 - 94.4 [facility]ATORY MCH 31.6 27.1 - 32.0 pg [facility] MCHC 34.0 31.7 - 35.0 gm/dL [facility] Platelets 253 145 - 357 x10(3)/[facility] LABORATORY RDWSD 39.4 37.0 - 46.0 [facility] LABORATORY RDWCV 11.7 11.5 - 14.1 % [facility] MPV 8.7 7.6 - 12.9 [facility] LABOR[facility] nRBC % Auto 0.0 % [facility] nRBC Abs Auto 0.000 0.000 - 0.000 x10(3)/[facility] LABORATORY Blood specimen (specimen) 12/21/2017 7:04 AM EDT 12/21/2017 7:25 AM EDT Narrative Resulting Agency Comment Spec In Lab Reinaldo Romero MD HEMATOLOGY ORDERABLE S Performing Organization Address City/State/[facility] Co de Phone Number [facility] [place] [address] * XR Pelvis Judet or In Out [...] IMG FLUORO ORDERABLE S Performing Organization Address [facility]/ZIP Co de Phone Number [place], [place] * ABORH Recheck Status (12/20/2017 8:08 AM EDT) ABORH Type Recheck Completed [facility] Blood specimen (specimen) 12/20/2017 8:08 AM EDT 12/20/2017 8:39 AM EDT Narrative Resulting Agency Comment Spec In Lab Joyce Parra MD BLOOD BANK LAB ORDER NITZA [facility] [place] [address] * Antibody screen (12/20/2017 8:08 AM EDT) Pathologist [facility] Ab Screen Interp Negative [facility] Expires at [id number] on: 12/23/2017 [facility] Blood specimen (specimen) 12/20/2017 8:08 AM EDT 12/20/2017 8:39 AM EDT Narrative Resulting Agency Comment Spec In Lab Joyce Parra MD BLOOD BANK LAB ORDER NITZA [facility] [place] [address] * ABO/Rh Typing (12/20/2017 8:08 AM EDT) Pathologist [facility] ABORH Type A Neg [facility] Blood specimen (specimen) 12/20/2017 8:08 AM EDT 12/20/2017 8:39 AM EDT Narrative Resulting Agency Comment Spec In Lab Joyce Parra MD BLOOD BANK LAB ORDER NITZA [facility] [place] [address] * Differential, Automated (12/17/2017 6:55 AM EDT) [facility] Neutrophils % 60.2 % [facility] Neutr Abs (ANC) 4.23 1.70 - 6.10 x10(3)/[facility] LABORAT[facility] Lymphocytes % 30.2 % [facility] Lymphocytes Abs 2.1 0.9 - 3.2 x10(3)/[facility]OR[facility]ORY Monocytes % 8.0 % [facility] Monocyte Abs 0.6 0.3 - 0.9 x10(3)/[facility] LABOR[facility] Eosinophils % 1.1 % [facility] Eosinophils Abs 0.1 0.0 - 0.4 x10(3)/[facility] LABORATORY Basophils % 0.4 % [facility] Basophils Abs 0.0 0.0 - 0.1 x10(3)/[facility] LABORATORY Immature Gran % 0.10 % [facility] Comment: Immature granulocytes(IG's)percentage and absolute count will include metamyelocytes, myelocytes, and promyelocytes. Blood smears from CBCs yielding IG's will be scanned manually for concordance. If this scan disagrees with the automated IG or if promyelocytes are noted, a manual differential will be performed. Tammi Gran Abs 0.01 0.00 - 0.04 x10(3)/[facility] Blood specimen (specimen) 12/17/2017 6:55 AM EDT 12/17/2017 7:04 AM EDT Narrative Resulting Agency Comment Spec In Lab Rajinder Gracia MD HEMATOLOGY OR DERABLES Performing Organization Address City/State/[facility] Co de Phone Number [facility] [place] [address] * (ABNORMAL) Hemogram (12/17/2017 6:55 AM EDT) WBC 7.0 4.0 - 9.5 x10(3)/[facility] LABORATORY RBC 3.36(L) 4.00 - 5.21 x10(6)/[facility] Hemoglobin 10.9(L) 11.7 - 15.5 gm/dL [facility] Hematocrit 31.1(L) 35.7 - 45.8 % [facility] MCV 92.6 82.6 - 94.4 fL [facility] MCH 32.4(H) 27.1 - 32.0 pg [facility] MCHC 35.0 31.7 - 35.0 gm/dL [facility] Platelets 195 145 - 357 x10(3)/[facility] RDWSD 38.9 37.0 - 46.0 fL [facility] RDWCV 11.5 11.5 - 14.1 % [facility] MPV 9.0 7.6 - 12.9 fL [facility] nRBC % Auto 0.0 % [facility] nRBC Abs Auto 0.000 0.000 - 0.000 x10(3)/mcL [facility] Blood specimen (specimen) 12/17/2017 6:55 AM EDT 12/17/2017 7:04 AM EDT Narrative Resulting Agency Comment Spec In Lab Rajinder Gracia MD HEMATOLOGY OR DERABLES [facility] [place] [address] * (ABNORMAL) Basic Metabolic Panel (non-fasting) (12/17/2017 6:55 AM EDT) Glucose Lvl 91 65 - 199 mg/dL [facility] Comment:Diabetes: >=200 mg/d L plus symptoms BUN 11 8 - 18 mg/dL [facility] Creatinine 0.63(L) 0.70 - 1.20 mg/dL [facility] Sodium 142 135 - 145 mmol/L [facility] Potassium 3.9 3.5 - 5.0 mmol/L [facility] Comment: Please note: ??Patients with WBC >100,000 may have falsely elevated Potassium levels. ??For accurate Potassium quantification in these patients send serum separator tube (gold top) for subsequent determinations. ??Contact the Clinical Chemistry Laboratory if there are any questions. Chloride 102 98 - 107 mmol/L [facility] CO2 26 22 - 31 mmol/L [facility] Anion Gap 14 5 - 15 mmol/L [facility] Calcium 9.0 8.5 - 10.5 mg/dL [facility] Estimated GFR 103 >=60 mL/min/1. 73 m?? [facility] Comment: The eGFR was calculated using the CKD-EPI equation. As with all creatinine based estimates of kidney function, eGFR values calculated with the CKD-EPI equation are not accurate in patients with acute kidney failure, extremes of body mass or the acutely ill. http://[employer]/Kaleionkdep http://[employer]/[facility] PRYORnkf eGFR 120 >=60 mL/min/1. 73 m?? [facility] Comment: The eGFR was calculated using the CKD-EPI equation. As with all creatinine based estimates of kidney function, eGFR values calculated with the CKD-EPI equation are not accurate in patients with acute kidney failure, extremes of body mass or the acutely ill. http://[employer]/Kaleionkdep [email or web address]://[employer]/[facility] PRYORnkf Blood specimen (specimen) 12/17/2017 6:55 AM EDT 12/17/2017 7:04 AM EDT Narrative Resulting Agency Comment Spec In Lab Russell Lewis MD CHEMISTRY ORDERABLE S Performing Organization Address City/State/[facility] Co de Phone Number [facility] [place] [address] * (ABNORMAL) Differential, Automated (12/15/2017 8:22 AM EDT) Neutrophils % 67.1 % [facility] Neutr Abs (ANC) 5.44 1.70 - 6.10 x10(3)/mc L [facility] Lymphocytes % 20.4 % [facility] Lymphocytes Abs 1.7 0.9 - 3.2 x10(3)/mc L [facility] Monocytes % 12.2 % [facility] Monocyte Abs 1.0(H) 0.3 - 0.9 x10(3)/mc L [facility] Eosinophils % 0.0 % [facility] Eosinophils Abs 0.0 0.0 - 0.4 x10(3)/mc L [facility] Basophils % 0.1 % [facility] Basophils Abs 0.0 0.0 - 0.1 x10(3)/mc L [facility] Immature Gran % 0.20 % [facility] Comment: Immature granulocytes(IG's)percentage and absolute count will include metamyelocytes, myelocytes, and promyelocytes. Blood smears from CBCs yielding IG's will be scanned manually for concordance. If this scan disagrees with the automated IG or if promyelocytes are noted, a manual differential will be performed. Tammi Gran Abs 0.02 0.00 - 0.04 x10(3)/[facility] LABORATORY Blood specimen (specimen) 12/15/2017 8:22 AM EDT 12/15/2017 8:32 AM EDT Narrative Resulting Agency Comment Spec In Lab Elver Huddleston MD HEMATOLOGY ORDERABLE S [facility] [place] [address] * (ABNORMAL) Hemogram (12/15/2017 8:22 AM EDT) WBC 8.1 4.0 - 9.5 x10(3)/[facility] LABORATORY RBC 3.21(L) 4.00 - 5.21 x10(6)/[facility] LABORATORY Hemoglobin 10.5(L) 11.7 - 15.5 gm/dL [facility] Hematocrit 29.6(L) 35.7 - 45.8 % [facility] MCV 92.2 82.6 - 94.4 fL [facility] MCH 32.7(H) 27.1 - 32.0 pg [facility] MCHC 35.5(H) 31.7 - 35.0 gm/dL [facility] Platelets 145 145 - 357 x10(3)/[facility] LABORATORY RDWSD 39.6 37.0 - 46.0 [facility] LABORATORY RDWCV 11.6 11.5 - 14.1 % [facility] MPV 8.7 7.6 - 12.9 [facility] nRBC % Auto 0.0 % [facility] nRBC Abs Auto 0.000 0.000 - 0.000 x10(3)/mcL [facility] Blood specimen (specimen) 12/15/2017 8:22 AM EDT 12/15/2017 8:32 AM EDT Narrative Resulting Agency Comment Spec In Lab Elver Huddleston MD HEMATOLOGY ORDERABLE S Performing Organization Address City/[facility]/ZIP Co de Phone Number [facility] [place] [address] * Magnesium (12/15/2017 8:22 AM EDT) Magnesium 0.85 0.69 - 1.07 mmol/L [facility] Blood specimen (specimen) 12/15/2017 8:22 AM EDT 12/15/2017 8:33 AM EDT Narrative Resulting Agency Comment Spec In Lab Priya Whitaker APRN CHEMISTRY ORDERABLES Performing Organization Address [facility] Co de Phone Number [facility] [place] [address] * (ABNORMAL) Basic Metabolic Panel (non-fasting) (12/15/2017 8:22 AM EDT) Glucose Lvl 102 65 - 199 mg/dL [facility] Comment:Diabetes: >=200 mg/d L plus symptoms BUN 9 8 - 18 mg/dL [facility] Creatinine 0.83 0.70 - 1.20 mg/dL [facility] Sodium 143 135 - 145 mmol/L [facility] Potassium 3.8 3.5 - 5.0 mmol/L [facility] Comment: Please note: ??Patients with WBC >100,000 may have falsely elevated Potassium levels. ??For accurate Potassium quantification in these patients send serum separator tube (gold top) for subsequent determinations. ??Contact the Clinical Chemistry Laboratory if there are any questions. Chloride 103 98 - 107 mmol/L [facility] CO2 25 22 - 31 mmol/L [facility] Anion Gap 15 5 - 15 mmol/L [facility] Calcium 8.4(L) 8.5 - 10.5 mg/dL [facility] Estimated GFR 81 >=60 mL/min/1. 73 m?? [facility] Comment: The eGFR was calculated using the CKD-EPI equation. As with all creatinine based estimates of kidney function, eGFR values calculated with the CKD-EPI equation are not accurate in patients with acute kidney failure, extremes of body mass or the acutely ill. http://[employer]/Kaleionkdep [email or web address]://[employer]/Kaleionkf eGFR 94 >=60 mL/min/1. 73 m?? [facility] Comment: The eGFR was calculated using the CKD-EPI equation. As with all creatinine based estimates of kidney function, eGFR values calculated with the CKD-EPI equation are not accurate in patients with acute kidney failure, extremes of body mass or the acutely ill. http://[employer]/Kaleionkdep [email or web address]://[employer]/[facility] PRYORnkf Blood specimen (specimen) 12/15/2017 8:22 AM EDT 12/15/2017 8:32 AM EDT Narrative Resulting Agency Comment Spec In Lab Russell Lewis MD CHEMISTRY ORDERABLE S Performing Organization Address City/State/[facility] Co de Phone Number [facility] [place] [address] * XR Pelvis Judet or In Out [...] OR Use (12/14/2017 1:13 PM EDT) Narrative [facility] - 12/14/2017 1:13 PM EDT This order does not need a radiologist interpretation. ?? Reinaldo Romero MD [facility] FLUORO ORDERABLE S Performing Organization Address [facility] de Phone Number [place], [place] * XR Fluoro No Rad <1Hr - OR Use (12/14/2017 12:20 PM EDT) Narrative RAD - 12/14/2017 1:12 PM EDT This order does not need a radiologist interpretation. ?? Reinaldo Romero MD [facility] FLUORO ORDERABLE S Performing Organization Address [facility] de Phone Number [place], [place] * XR Fluoro No Rad <1Hr - OR Use (12/14/2017 11:39 AM EDT) Narrative RAD - 12/14/2017 11:39 AM EDT This order does not need a radiologist interpretation. ?? Reinaldo Romero MD [facility] FLUORO ORDERABLE S Performing Organization Address [facility] de Phone Number [place], [place] * CT Knee wo Contrast Right [...] at 12/14/2017 9:01 AM Russell Lewis MD [facility] DX ORDERABLES * XR Fluoro No Rad <1Hr - OR Use (12/14/2017 3:32 AM EDT) Narrative RAD - 12/14/2017 3:32 AM EDT This order does not need a radiologist interpretation. ?? Russell RAYA FLUORO ORDERABL ES [place] * XR Forearm Right (Generic) (12/14/2017 [...] with history and regional physical examination. Russell RAYA DX ORDERABLES * XR Tibia Fibula Right [...] No other fracture identified. Russell Lewis MD [facility] DX ORDERABLES * XR Shoulder Right (Generic) [...] fracture or dislocation identified. Russell Lewis MD [facility] DX ORDERABLES * XR Wrist 2 views [...] 12:30 AM EDT) ABORH Type Recheck Completed [facility] Blood specimen (specimen) 12/14/2017 12:30 AM EDT 12/14/2017 12:30 AM EDT Narrative Resulting Agency Comment Spec In Lab Russell Lewis MD BLOOD BANK LAB RAYMOND TINSLEY [facility] Organization Address City/State/ZIP Co de Phone Number [facility] [place] [phone] * Antibody screen (12/14/2017 12:30 AM EDT) Ab Screen Interp Negative [facility] Expires at [id number] on: 12/17/2017 [facility] Blood specimen (specimen) 12/14/2017 12:30 AM EDT 12/14/2017 12:30 AM EDT Narrative Resulting Agency Comment Spec In Lab Russell Lewis MD BLOOD BANK LAB ORDUbaldo TINSLEY [facility] [place] [address] * ABO/Rh Typing (12/14/2017 12:30 AM EDT) ABORH Type A Neg [facility] Blood specimen (specimen) 12/14/2017 12:30 AM EDT 12/14/2017 12:30 AM EDT Narrative Resulting Agency Comment Spec In Lab Russell Lewis MD BLOOD BANK LAB ORDUbaldo TINSLEY [facility] [place] [address] * L-Lactate2 Whole Blood (12/14/2017 12:15 AM EDT) [facility] Lactate WB 1.7 0.5 - 2.2 mmol/L [facility] Blood specimen (specimen) 12/14/2017 12:15 AM EDT 12/14/2017 12:15 AM EDT Russell Lewis MD CHEMISTRY ORDERABLE S Performing Organization Address City/[facility]/ZIP Co de Phone Number [facility] [place] [address] * SCAN DOC: IMPLANTABLE DEVICES (12/14/2017 12:00 AM EDT) Narrative 12/14/2017 12:00 AM EDT Ordered by an unspecified provider. Scanning Provider MEDIA MGR SCAN EXT O RDR/RSLT * Gold Tube HOLD (12/14/2017 12:00 AM EDT) Pathologist [facility] Gold Hold Sample in lab. [facility] Blood specimen (specimen) Venous Draw / Unknown 12/14/2017 12/14/2017 12:14 AM EDT Chinedu Ortega MD CHEMISTRY ORDERABLES [facility] [place] [address] * (ABNORMAL) Differential, Automated (12/14/2017 12:00 AM EDT) [facility] Neutrophils % 83.9 % [facility] Neutr Abs (ANC) 9.56(H) 1.70 - 6.10 x10(3)/[facility] LABORATORY Lymphocytes % 9.8 % [facility] Lymphocytes Abs 1.1 0.9 - 3.2 x10(3)/[facility] LABORATORY Monocytes % 5.8 % [facility] Monocyte Abs 0.7 0.3 - 0.9 x10(3)/[facility] LABORATORY Eosinophils % 0.0 % [facility] Eosinophils Abs 0.0 0.0 - 0.4 x10(3)/[facility] LABORATORY Basophils % 0.2 % [facility] Basophils Abs 0.0 0.0 - 0.1 x10(3)/[facility] LABORATORY Immature Gran % 0.30 % [facility] Comment: Immature granulocytes(IG's)percentage and absolute count will include metamyelocytes, myelocytes, and promyelocytes. Blood smears from CBCs yielding IG's will be scanned manually for concordance. If this scan disagrees with the automated IG or if promyelocytes are noted, a manual differential will be performed. Tammi Gran Abs 0.03 0.00 - 0.04 x10(3)/ L [facility] Blood specimen (specimen) 12/14/2017 12/14/2017 12:07 AM EDT Narrative Resulting Agency Comment Spec In Lab Russell Lewis MD HEMATOLOGY ORDERABL ES Performing Organization Address City/[facility]/ZIP Co de Phone Number [facility] [place] [address] * (ABNORMAL) Hemogram (12/14/2017 12:00 AM EDT) WBC 11.4(H) 4.0 - 9.5 x10(3)/[facility] LABORATORY RBC 3.78(L) 4.00 - 5.21 x10(6)/[facility] LABORATORY Hemoglobin 12.2 11.7 - 15.5 gm/dL [facility] Hematocrit 35.0(L) 35.7 - 45.8 % [facility] MCV 92.6 82.6 - 94.4 [facility] LABORAT[facility] MCH 32.3(H) 27.1 - 32.0 pg [facility] MCHC 34.9 31.7 - 35.0 gm/dL [facility] Platelets 195 145 - 357 x10(3)/[facility] LABORATORY RDWSD 40.1 37.0 - 46.0 [facility] LABORAT[facility] RDWCV 11.9 11.5 - 14.1 % [facility] MPV 8.5 7.6 - 12.9 [facility] LABORATORY nRBC % Auto 0.0 % [facility] nRBC Abs Auto 0.000 0.000 - 0.000 x10(3)/[facility] LABORATORY Blood specimen (specimen) 12/14/2017 12/14/2017 12:07 AM EDT Narrative Resulting Agency Comment Spec In Lab Russell Lewis MD HEMATOLOGY ORDERABL ES [facility] [place] [address] * Ethanol Level (12/14/2017 12:00 AM EDT) Ethanol Lvl <100 <=99 mg/L [facility] Comment: Greater than 800 mg/L (0.08%) should be considered intoxicated. 3400 to 4500 mg/L (0.34 - 0.45%) is considered severe intoxication. Greater than 5500 mg/L (0.55%) is usually fatal. Blood specimen (specimen) 12/14/2017 12/14/2017 12:07 AM EDT Narrative Resulting Agency Comment Spec In Lab Russell Lewis MD CHEMISTRY ORDERABLE S Performing Organization Address City/[facility] Co de Phone Number [facility] [place] [address] * (ABNORMAL) APTT (12/14/2017 12:00 AM EDT) PTT 24(L) 25 - 37 sec [facility] Comment: The PTT is NOT appropriate for heparin monitoring. Use the Anti-Xa level for heparin monitoring (HEP UFH) or LMWH monitoring (HEP LMW). A PTT less than 37 seconds generally indicates adequate hemostasis. Blood specimen (specimen) 12/14/2017 12/14/2017 12:07 AM EDT Narrative Resulting Agency Comment Spec In Lab Russell Lewis MD HEMATOLOGY ORDERABL ES Performing Organization Address [facility]/ZIP Co de Phone Number [facility] [place] [address] * Prothrombin Time (12/14/2017 12:00 AM EDT) PT 11.2 9.4 - 12.5 sec [facility] INR 1.0 [facility] Comment: An INR <2.0 indicates [...] Lab Russell Lewis MD HEMATOLOGY ORDERABL ES [facility] [place] [address] * (ABNORMAL) Basic Metabolic Panel (non-fasting) (12/14/2017 12:00 AM EDT) Glucose Lvl 124 65 - 199 mg/dL [facility] Comment:Diabetes: >=200 mg/d L plus symptoms BUN 13 8 - 18 mg/dL [facility] Creatinine 0.92 0.70 - 1.20 mg/dL [facility] Sodium 140 135 - 145 mmol/L [facility] Potassium 4.6 3.5 - 5.0 mmol/L [facility] Comment: Please note: ??Patients with WBC >100,000 may have falsely elevated Potassium levels. ??For accurate Potassium quantification in these patients send serum separator tube (gold top) for subsequent determinations. ??Contact the Clinical Chemistry Laboratory if there are any questions. Chloride 103 98 - 107 mmol/L [facility] CO2 26 22 - 31 mmol/L [facility] Anion Gap 11 5 - 15 mmol/L [facility] Calcium 8.4(L) 8.5 - 10.5 mg/dL [facility] Estimated GFR 72 >=60 mL/min/1. 73 m?? [facility] Comment: The eGFR was calculated using the CKD-EPI equation. As with all creatinine based estimates of kidney function, eGFR values calculated with the CKD-EPI equation are not accurate in patients with acute kidney failure, extremes of body mass or the acutely ill. [email or web address]/[facility] PRYORnkf eGFR 83 >=60 mL/min/1. 73 m?? [facility] Comment: The eGFR was calculated using the CKD-EPI equation. As with all creatinine based estimates of kidney function, eGFR values calculated with the CKD-EPI equation are not accurate in patients with acute kidney failure, extremes of body mass or the acutely ill. http://[employer]/DHnkdep [email or web address]://[email or web address]/[facility] PR[facility]OR[facility]f Blood specimen (specimen) 12/14/2017 12/14/2017 12:07 AM EDT Narrative Resulting Agency Comment Spec In Lab Russell Lewis MD CHEMISTRY ORDERABLE S Performing Organization Address [facility] Co de Phone Number [facility] [place] [address] * SCAN DOC: SPECIAL TESTER (12/14/2017 12:00 AM EDT) Anatomical Region Laterality Modality Other Narrative 12/14/2017 12:00 AM EDT Ordered by an unspecified provider. Scanning Provider MEDIA MGR SCAN EXT O RDR/RSLT * Urinalysis Microscopic Exam (12/13/2017 11:55 PM EDT) RBC UA 3 0 - 4 /HPF [facility] WBC UA 2 0 - 5 /HPF [facility] Urine specimen (specimen) 12/13/2017 11:55 PM EDT 12/14/2017 12:07 AM EDT Narrative Resulting Agency Comment Spec In Lab Russell Lewis MD URINE ORDERABLES Performing Organization Address [facility]/ZIP Co de Phone Number [facility] [place] [address] * (ABNORMAL) Urinalysis with reflex Culture (12/13/2017 11:55 PM EDT) Glucose UA Negative Negative mg/dL [facility] Protein UA Negative Negative mg/dL [facility] Bilirubin UA Negative Negative mg/dL [facility] Comment: Clinical correlation required for positive Urine Bilirubin results as false positive may occur with some drugs and drug related products. If a false positive is suspected a serum total bilirubin should be considered if clinically indicated. Urobilinogen UA Normal Normal mg/dL M ABI [facility] pH UA 6.0 5.0 - 8.0 [facility] Blood UA Small(A) Negative mg/dL [facility] Ketones UA Negative Negative mg/dL [facility] Nitrite UA Negative Negative [facility] Leukocytes UA Negative Negative mcL MAR Y [facility] Appearance UA Clear Clear [facility] Spec Watkins UA >1.035(H) 1.002 - 1.030 [facility] Color UA Straw Yellow [facility] Culture Reflexed No [facility] Y [facility] Urine specimen (specimen) 12/13/2017 11:55 PM EDT 12/14/2017 12:07 AM EDT Narrative Resulting Agency Comment Spec In Lab Russell Lewis MD URINE ORDERABLES [facility] [place] [address] * Rapid Drug Screen w/ Confirmation, Urine (12/13/2017 11:54 PM EDT) U Barbiturates Screen None Detected None Detected [facility] Comment: The barbiturate screen [...] U Benzodiazepines Screen None Detected None Detected [facility] Comment: The benzodiazepines screen [...] U Cocaine Screen None Detected None Detected [facility] Comment: The cocaine metabolites screen detects benzoylecgonine (Cocaine Metabolite) at concentrations >150 ng/mL. A ? Presumptive Positive? result indicates that the screening result was positive but has not yet been confirmed by a highly-specific method. As with any screen, occasional false positive results from cross-reacting substances may occur. Not for Medico-Legal Purposes. U Methadone Metabolites Screen None Detected None Detected [facility] Comment: The methadone metabolite screen detects EDDP (major methadone metabolite) at concentrations >100 ng/mL. A ? Presumptive Positive? result indicates that the screening result was positive but has not yet been confirmed by a highly-specific method. As with any screen, occasional false positive results from cross-reacting substances may occur. Not for Medico-Legal Purposes. U Opiate Screen None Detected None Detected [facility] Comment: The opiates screen [...] U Cannabinoid Screen None Detected None Detected [facility] Comment: The marijuana metabolites screen detects the THC metabolite (90-sgm-1-carboxy-delta 9-THC) at concentrations >20 ng/mL. A ? Presumptive Positive? result indicates that the screening result was positive but has not yet been confirmed by a highly-specific method. As with any screen, occasional false positive results from cross-reacting substances may occur. Not for Medico-Legal Purposes. U Oxycodone Screen None Detected None Detected [facility] Comment: The oxycodone screen detects oxycodone and oxymorphone at concentrations >100 ng/mL. A ? Presumptive Positive? result indicates that the screening result was positive but has not yet been confirmed by a highly-specific method. As with any screen, occasional false positive results from cross-reacting substances may occur. Not for Medico-Legal Purposes. U Buprenorphine Screen None Detected None Detected [facility] Comment: The buprenorphine screen detects buprenorphine at concentrations >5 ng/mL. A ? Presumptive Positive? result indicates that the screening result was positive but has not yet been confirmed by a highly-specific method. As with any screen, occasional false positive results from cross-reacting substances may occur. Not for Medico-Legal Purposes. U Fentanyl Screen None Detected None Detected [facility] Comment: The fentanyl screen detects fentanyl at concentrations >2 ng/mL. A ? Presumptive Positive? result indicates that the screening result was positive but has not yet been confirmed by a highly-specific method. As with any screen, occasional false positive results from cross-reacting substances may occur. Not for Medico-Legal Purposes. U Tricyclics Screen None Detected None Detected [facility] Comment: The tricyclics screen [...] U Ethanol Screen None Detected None Detected [facility] Comment:This urine ethanol a ssay detects ethanol at concentrations >/= 100 mg/L. U Amphetamines Screen None Detected None Detected [facility] Comment: The amphetamine screen detects d-amphetamine and d-methamphetamine at concentrations >300 ng/mL. A ? Presumptive Positive? result indicates that the screening result was positive but has not yet been confirmed by a highly-specific method. As with any screen, occasional false positive results from cross-reacting substances may occur. Not for Medico-Legal Purposes. U Adulterants Screen None Detected None Detected [facility] Comment: No adulteration or [...] MD CHEMISTRY ORDERABLE S Performing Organization Address [facility]/ZIP Co de Phone Number [facility] [place] [address] * Rapid Drug Screen, Urine (PRETTY Request) (12/13/2017 11:54 PM EDT) PRETTY Conf Requested Yes [facility] PRETTY Requested See Comment [facility] Comment:Refer to Rapid Drug Screen w/ Confirmation, Urine for results. Urine specimen (specimen) 12/13/2017 11:54 PM EDT 12/14/2017 12:07 AM EDT Narrative Resulting Agency Comment Spec In Lab Russell eLwis MD URINE ORDERABLES Performing Organization Address [facility] Co de Phone Number [facility] [place] [address] * Request For 2nd Read CT Head [...] spine throughout renderingsuboptimal assessment. Russell Lewis MD IMDavin OUTSIDE INTERPR ETATION ORDERABLES * Request For [...] CT Spine (12/13/2017 12:20 AM EDT) Narrative [facility] - 12/13/2017 10:12 PM EDT This exam is for storage only and is auto-finalizing. Russell SNEED FILM LIBRARY OR DERABLES Performing Organization Address [facility] de Phone Number [place], [place] * Film Library- Storage Only CT Chest Abdomen Pelvis (12/13/2017 12:15 AM EDT) Narrative [facility] - 12/13/2017 10:11 PM EDT This exam is for storage only and is auto-finalizing. Russell SNEED FILM LIBRARY OR DERABLES Performing Organization Address [facility] Co de Phone Number [place], [place] * Film Library- Storage Only DX Knee (12/13/2017 12:10 AM EDT) Narrative [facility] - 12/13/2017 10:05 PM EDT This exam is for storage only and is auto-finalizing. Russell Lewis MD IMG FILM LIBRARY OR DERABLES Performing Organization Address [facility] de Phone Number [place], [place] * Film Library- Storage Only DX Wrist (12/13/2017 12:05 AM EDT) Narrative [facility] - 12/13/2017 10:04 PM EDT This exam is for storage only and is auto-finalizing. Russell Lewis MD IMG FILM LIBRARY OR DERABLES Performing Organization Address [facility] de Phone Number [place], [place] * Film Library- Storage Only CT Head And Spine (12/13/2017 12:00 AM EDT) [facility] 12/13/2017 10:03 PM EDT This exam is for storage only and is auto-finalizing. Russell Lewis MD G FILM LIBRARY OR DERABLES Performing Organization Address [facility] de Phone Number [place], [place] documented in this encounter Visit Diagnoses [...] 0720, Until Wed12/24/17 at 1617, Constipation, Routine BUpivacaine (PF) (MARCAINE) 0.25 % (2.5 mg/mL) injection ONCE PRN, Starting on Tu12/14/17 at 1145, Until Wed12/24/17 at 1617, Intra-Operative (Intra-Procedure), Routine Given 12/14/2017 1:10 PM EDT 10 mLs 19- Surgical Site Given 12/14/2017 11:45 AM EDT 10 mLs 1 9- Surgical Site cyclobenzaprine (FLEXERIL) tablet 10 mg 10 mg, [...] (2 times per day), First dose on 12/20/17 at 2100, Until Discontinued, Routine Given 12/24/2017 10:12 AM EDT 30 mg Given 12/23/2017 8:47 PM EDT 30 mg Given 12/23/2017 8:21 AM EDT 30 mg lactulose (CHRONULAC) 20 gram/30 mL oral solution 20-40 g 20-40 g (30-60 mL), Oral, DAILY PRN, Starting on 12/18/17 at 2028, [...] Edwards RN)1557 (Given - Provider: Christin Edwards RN)2119 (Given - Provider: Baltazar Young, HAYLEY) 040 (Given - Provider: Cary Urrutia, HAYLEY)08 (Not Given - Provider: Christin Edwards RN - Reason: Patient/family refused - Comment: pt educated)1607 (Given - Provider: Faina Ortega RN)2044 (Given - Provider: La Castrejon RN) 040 (Given - Provider: La Castrejon RN)101 (Given - Provider: Pita Her, HAYLEY) enoxaparin (LOVENOX) injection 30 mg 30 mg, Subcutaneous, EVERY 12 HOURS SCHEDULED (2 times per day), First dose on Wed12/20/17 at 2100, Until Discontinued, Routine 0845 (Given - Provider: Christin Edwards RN)2119 (Given - Provider: Baltazar Young, HAYLEY) 08 (Given - Provider: Christin Edwards, HAYLEY)2046 (Given - Provider: La Castrejon RN) 1012 (Given - Provider: Pita Her, RN) senna-docusate (PERICOLACE) 8.6-50 mg per tablet 2 tablet 2 tablet, Oral, 2 TIMES DAILY, First dose on Wed12/14/17 at 0900, Until Discontinued, Routine 0844 (Given - Provider: Christin Edwards RN)212 (Given - Provider: Baltazar Young, HAYLEY) 0820 (Given - Provider: Christin Edwards, HAYLEY)2044 (Given - Provider: La Castrejon RN) 1012 (Given - Provider: Pita Her RN) sodium chloride 0.9 % flush 5 mL 5 mL, Intravenous, 2 TIMES DAILY, First dose on Wed12/14/17 at 0900, Until Discontinued, Recovery (Recovery-Hospital Unit), Routine 0845 (Given - Provider: Christin Edwards, RN)2119 (Given - Provider: Baltazar Young, RN) 08 (Given - Provider: Christin Edwards, RN)204 (Given - Provider: La Castrejon, RN) 1013 (Given - Provider: Pita Her RN) PRN Medication Order 12/22/2017 12/23/2017 12/24/2017 [...] constipation., Routine 1235 (Given - Provider: Pita Her RN) bisacodyl (DULCOLAX) suppository 10 mg 10 mg, Rectal, DAILY PRN, Starting on Wed12/14/17 at 0720, Until Wed12/24/17 at 1617, Constipation, Routine cyclobenzaprine (FLEXERIL) tablet 10 mg 10 mg, Oral, 3 TIMES DAILY PRN, Starting on 12/18/17 at 2239, Until Wed12/24/17 at 1617, Muscle spasms, Routine 0229 (Given - Provider: Cary Urrutia, HAYLEY)1335 (Given - Provider: Christin Edwards, HAYLEY)2119 (Given - Provider: Baltazar Young, HAYLEY) 161 (Given - Provider: Faina Ortega RN) 0423 (Given - Provider: La Castrejon, HAYLEY) lactulose (CHRONULAC) 20 gram/30 mL oral solution 20-40 g 20-40 g (30-60 mL), Oral, DAILY PRN, Starting on 7/28/18 at 2027, Until Wed12/24/17 at 1617, Constipation, [...] on Wed12/14/17 at 0416, Until Wed12/24/17 at 161, for discomfort with PIV insertion, Recovery (Recovery-Hospital [...] RN)1332 (See Alternative - Provider: Christin Edwards RN)1952 (See Alternative - Provider: Cary Urrutia RN)2342 (See Alternative - Provider: Cary Urrutia RN) 0409 (See Alternative - Provider: Cary Urrutia RN)0820 (See Alternative - Provider: Christin Edwards RN)2046 (See Alternative - Provider: La Castrejon, HAYLEY) 0423 (See Alternative - Provider: La Castrejon, RN)1236 (See Alternative - Provider: Pita Her RN) oxyCODONE (ROXICODONE) immediate release tablet 15 mg(Linked Group 2) 15 mg, Oral, EVERY 3 HOURS PRN, Starting on Wed12/21/17 at 0620, Until Wed12/24/17 at 1617, Pain, severe pain or opiate tolerant patient (7-10), Do not start patient with 15 mg dose. Do not give 15 mg if patient is opiate niave., Routine 0509 (Given - Provider: Cary Urrutia RN)0843 (Given - Provider: Christin Edwards RN)1332 (Given - Provider: Christin Edwards RN)195 (Given - Provider: Cary Urrutia RN)2342 (Given - Provider: Cary Urrutia RN) 0409 (Given - Provider: Cary Urrutia RN)0820 (Given - Provider: Christin Edwards RN)2046 (Given - Provider: La Castrejon, HAYLEY) 0423 (Given - Provider: La Castrejon, HAYLEY)1236 (Given - Provider: Pita Her, HAYLEY) oxyCODONE (ROXICODONE) immediate release tablet 5 mg(Linked Group 2) 5 mg, Oral, EVERY 3 HOURS PRN, Starting on 12/21/17 at 0620, Until Wed12/24/17 at 1617, Pain, mild pain (1-3), May give additional 5 mg in 30 minutes once if pain not relieved., Routine 0509 (See Alternative - Provider: Cary Urrutia RN)0843 (See Alternative - Provider: Christin Edwards RN)1332 (See Alternative - Provider: Christin Edwards RN)1952 (See Alternative - Provider: Cary Urrutia RN)2342 (See Alternative - Provider: Cary Urrutia RN) 0409 (See Alternative - Provider: Cary Urrutia RN)0820 (See Alternative - Provider: Christin Edwards RN)2046 (See Alternative - Provider: La Castrejon RN) [...] Routine documented in this encounter Care Teams Nut Culler Relationship Specialty Start Date End Date Keiko Reddy MD [address] [address] PCP - General Family Medicine 06/18/17 05/15/18 documented as of this encounter
--- OUTSIDE RECORDS SUMMARY | 2023-12-15 01:18 | XMS_ITS | Encounter Summary ---
Author Organization [facility] [place] [address] Care Team Providers Care Case Repairer Name Role Phone Keiko Reddy MD Primary Care Provider [phone] Encounter Details Date Type Department Care Team (Latest Contact Info) Description 12/14/2017 - 12/14/2017 11:59 PM EDT Hospital Encounter [place] [address] Discharge Disposition: Home Social History Tobacco Use [...] AM EDT Appointment Hematology [place] [address] 01/31/2024 10:20 AM EDT Office Visit [place] [address] Rebecca Small MD [facility] [place] [address] 08/01/2024 11:30 AM EDT Office Visit Dermatology at [facility] [address] [place] [address] Phan Engle MD [facility] DR JESS HERNA[place] [address] documented as of this encounter Procedures Procedure Name Priority Date/Time Associated Diagnosis Comments REQUEST FOR 2ND READ CT HEAD AND SPINE STAT 12/13/2017 10:53 PM EDT documented in this encounter Results * Request For 2nd Read CT Head [...] calvarial fracture, orcervical vertebral osseous injury identified. Deion Henriquez MD IMG OUTSIDE INTERPR ETATION ORDERABLES documented in this encounter Visit Diagnoses Not on filedocumented in this encounter Care Teams Case Repairer Relationship Specialty Start Date End Date Keiko Reddy MD [address] [place] [id number] PCP - General Family Medicine 06/18/17 05/15/18 documented as of this encounter
--- OUTSIDE RECORDS SUMMARY | 2023-12-15 01:18 | XMS_ITS | Encounter Summary ---
Author Organization [facility] Address [facility] [place] [address] Care Team Providers Care Wheel Worker Name Role Phone Keiko Reddy MD Primary Care Provider [phone] Encounter Details Date Type Department Care Team (Latest Contact Info) Description 12/13/2017 12:05 AM EDT - 12/13/2017 12:09 AM EDT Hospital Encounter [place] [address] Discharge Disposition: Home Social History Tobacco Use [...] AM EDT Appointment Hematology [place] [address] 01/31/2024 10:20 AM EDT Office Visit [place] [address] Rebecca Small MD [facility] DR [place]EC[place]IC [place] [address] 08/01/2024 11:30 AM EDT Office Visit Dermatology at [place] [address] [place] [address] Phan Engle MD [facility] DR JESS HERNAN[place] [address] documented as of this encounter Procedures Procedure Name Priority Date/Time Associated Diagnosis Comments FILM LIBRARY STORAGE ONLY DX WRIST STAT 12/13/2017 12:05 AM EDT documented in this encounter Results * Film Library- Storage Only DX Wrist (12/13/2017 12:05 AM EDT) Narrative RAD - 12/13/2017 10:04 PM EDT This exam is for storage only and is auto-finalizing. Deion Henriquez MD IMG FILM LIBRARY OR DERABLES [place], [place] documented in this encounter Visit Diagnoses Not on filedocumented in this encounter Care Teams Wheel Worker Relationship Specialty Start Date End Date Keiko Reddy MD [address] [address] PCP - General Family Medicine 06/18/17 05/15/18 documented as of this encounter
--- OUTSIDE RECORDS SUMMARY | 2023-12-15 01:18 | XMS_ITS | Encounter Summary ---
Author Organization [facility] Address [facility] [place] [address] Care Team Providers Care Inspector Pawnshop Detail Name Role Phone Keiko Reddy MD Primary Care Provider [phone] Encounter Details Date Type Department Care Team (Latest Contact Info) Description 12/13/2017 10:52 PM EDT - 12/13/2017 11:50 PM EDT Hospital Encounter [place] [address] Discharge Disposition: Home Social History Tobacco Use [...] AM EDT Appointment Hematology [place] [address] 01/31/2024 10:20 AM EDT Office Visit [place] [address] Rebecca Small MD [facility] [place] [address] 08/01/2024 11:30 AM EDT Office Visit Dermatology at [facility] [address] [place] [address] Phan Engle MD [facility] DR JESS [place] [address] documented as of this encounter Procedures Procedure Name Priority Date/Time Associated Diagnosis Comments REQUEST FOR 2ND READ CT CHEST ABDOMEN PELVIS STAT 12/13/2017 10:52 PM EDT documented in this encounter Results * Request For 2nd Read CT Chest [...] portions of the spine throughout renderingsuboptimal assessment. Deion Henriquez MD IMG OUTSIDE INTERPR ETATION ORDERABLES * [...] portions of the spine throughout renderingsuboptimal assessment. Deion Henriquez MD IMG OUTSIDE INTERPR ETATION ORDERABLES documented in this encounter Visit Diagnoses Not on filedocumented in this encounter Care Teams Inspector Pawnshop Detail Relationship Specialty Start Date End Date Keiko Reddy MD [address] [address] PCP - General Family Medicine 06/18/17 05/15/18 documented as of this encounter
--- OUTSIDE RECORDS SUMMARY | 2023-12-15 01:18 | XMS_ITS | Encounter Summary ---
[place] [address] Care Team Providers Care Operations Section Manager Name Role Phone Keiko Reddy MD Primary Care Provider [phone] Encounter Details Date Type Department Care Team (Latest Contact Info) Description 12/13/2017 10:51 PM EDT Hospital Encounter [place] [phone] Discharge Disposition: Home Social History Tobacco Use [...] AM EDT Appointment Hematology [place] [address] 01/31/2024 10:20 AM EDT Office Visit [place] [address] Rebecca Small MD [facility] [place] [address] 08/01/2024 11:30 AM EDT Office Visit Dermatology at [facility] [address] [place] [address] Phan Engle MD [facility] DR JESS [place] [address] documented as of this encounter Procedures Procedure Name Priority Date/Time Associated Diagnosis Comments REQUEST FOR 2ND READ CT SPINE STAT 12/13/2017 10:51 PM EDT documented in this encounter Results [...] on filedocumented in this encounter Care Teams Operations Section Manager Relationship Specialty Start Date End Date Keiko Reddy MD [address] [address] PCP - General Family Medicine 06/18/17 05/15/18 documented as of this encounter
--- OUTSIDE RECORDS SUMMARY | 2023-12-15 01:18 | XMS_ITS | Encounter Summary ---
Author Organization [facility] [place] [address] Care Team Providers Care Translator Interpreter Name Role Phone Keiko Reddy MD Primary Care Provider [phone] Encounter Details Date Type Department Care Team (Latest Contact Info) Description 12/13/2017 - 12/13/2017 12:04 AM EDT Hospital Encounter [place] [address] Discharge Disposition: Home Social History Tobacco Use [...] AM EDT Appointment Hematology [place] [address] 01/31/2024 10:20 AM EDT Office Visit [place] [address] [facility] [place] [address] 08/01/2024 11:30 AM EDT Office Visit Dermatology at [facility] [address] [place] [address] Phan Engle MD [facility] DR [place] [address] documented as of this encounter Procedures Procedure Name Priority Date/Time Associated Diagnosis Comments FILM LIBRARY STORAGE ONLY CT HEAD AND SPINE STAT 12/13/2017 12:00 AM EDT documented in this encounter Results * Film Library- Storage Only CT Head And Spine (12/13/2017 12:00 AM EDT) Narrative [facility] - 12/13/2017 10:03 PM EDT This exam is for storage only and is auto-finalizing. Deion Henriquez MD IMG FILM LIBRARY OR DERABLES Performing Organization Address City/State/[facility] Co de Phone Number [place], [place] documented in this encounter Visit Diagnoses Not on filedocumented in this encounter Care Teams Translator Interpreter Relationship Specialty Start Date End Date Keiko Reddy MD [address] [address] PCP - General Family Medicine 06/18/17 05/15/18 documented as of this encounter
--- OUTSIDE RECORDS SUMMARY | 2023-12-15 01:18 | XMS_ITS | Encounter Summary ---
[place] [address] Care Team Providers Care Horticultural Farmer Name Role Phone Keiko Reddy MD Primary Care Provider [phone] Encounter Details Date Type Department Care Team (Latest Contact Info) Description 12/13/2017 10:49 PM EDT Hospital Encounter [place] [phone] Discharge Disposition: Home Social History Tobacco Use [...] AM EDT Appointment [place] [address] 01/31/2024 10:20 AM EDT Office Visit [place] [address] Rebecca Small MD [facility] [place] [address] 08/01/2024 11:30 AM EDT Office Visit Dermatology at [facility] [address] [place] [address] Phan Engle MD [facility] DR J[place] [address] documented as of this encounter Procedures Procedure Name Priority Date/Time Associated Diagnosis Comments REQUEST FOR 2ND READ DX WRIST STAT 12/13/2017 10:49 PM EDT documented in this encounter Results * Request for 2nd read DX Wrist [...] as minimal dorsal angulation of the distalcomponents. Deion Henriquez MD IMG OUTSIDE INTERPR ETATION ORDERABLES documented in this encounter Visit Diagnoses Not on filedocumented in this encounter Care Teams Horticultural Farmer Relationship Specialty Start Date End Date Keiko Reddy MD [address] [address] PCP - General Family Medicine 06/18/17 05/15/18 documented as of this encounter
--- OUTSIDE RECORDS SUMMARY | 2023-12-15 01:18 | XMS_ITS | Encounter Summary ---
Author Organization [facility] Address [facility] [place] [address] Care Team Providers Care State Auditor Name Role Phone Keiko Reddy MD Primary Care Provider [phone] Encounter Details Date Type Department Care Team (Latest Contact Info) Description 12/13/2017 12:20 AM EDT - 12/13/2017 10:48 PM EDT Hospital Encounter [place] [address] Discharge Disposition: Home Social History Tobacco Use [...] AM EDT Appointment Hematology [place] [address] 01/31/2024 10:20 AM EDT Office Visit [place] [address] Rebecca Small MD [facility] [place] [address] 08/01/2024 11:30 AM EDT Office Visit Dermatology at [place] [address] [place] [address] Phan Engle MD [facility] [address] J[place] [address] documented as of this encounter Procedures Procedure Name Priority Date/Time Associated Diagnosis Comments FILM LIBRARY STORAGE ONLY CT SPINE STAT 12/13/2017 12:20 AM EDT documented in this encounter Results * Film Library- Storage Only CT Spine (12/13/2017 12:20 AM EDT) Narrative [facility] - 12/13/2017 10:12 PM EDT This exam is for storage only and is auto-finalizing. Deion Henriquez MD IMG FILM LIBRARY OR DERABLES [place], [place] documented in this encounter Visit Diagnoses Not on filedocumented in this encounter Care Teams State Auditor Relationship Specialty Start Date End Date Keiko Reddy MD [address] [address] PCP - General Family Medicine 06/18/17 05/15/18 documented as of this encounter
--- OUTSIDE RECORDS SUMMARY | 2023-12-15 01:18 | XMS_ITS | Encounter Summary ---
Author Organization [facility] Address [facility] [place] [address] Care Team Providers Care Genetics Teacher Name Role Phone Keiko Reddy MD Primary Care Provider [phone] Encounter Details Date Type Department Care Team (Latest Contact Info) Description 12/13/2017 12:10 AM EDT - 12/13/2017 12:14 AM EDT Hospital Encounter [place] [address] Discharge Disposition: Home Social History Tobacco Use [...] AM EDT Appointment Hematology [place] [address] 01/31/2024 10:20 AM EDT Office Visit [place] [address] Rebecca Small MD [facility] DR [place] [address] 08/01/2024 11:30 AM EDT Office Visit Dermatology at [place] [address] [place] [address] Phan Engle MD [facility] DR JESS [place] [address] documented as of this encounter Procedures Procedure Name Priority Date/Time Associated Diagnosis Comments FILM LIBRARY STORAGE ONLY DX KNEE STAT 12/13/2017 12:10 AM EDT documented in this encounter Results * Film Library- Storage Only DX Knee (12/13/2017 12:10 AM EDT) Narrative RAD - 12/13/2017 10:05 PM EDT This exam is for storage only and is auto-finalizing. Deion Henriquez MD IMG FILM LIBRARY OR DERABLES [place], [place] documented in this encounter Visit Diagnoses Not on filedocumented in this encounter Care Teams Genetics Teacher Relationship Specialty Start Date End Date Keiko Reddy MD [address] [address] PCP - General Family Medicine 06/18/17 05/15/18 documented as of this encounter
--- OUTSIDE RECORDS SUMMARY | 2023-12-15 01:18 | XMS_ITS | Encounter Summary ---
[place] [address] Care Team Providers Care Vibrating Screen Operator Name Role Phone Keiko Reddy MD Primary Care Provider [phone] Encounter Details Date Type Department Care Team (Latest Contact Info) Description 12/13/2017 10:50 PM EDT Hospital Encounter [place] [address] Discharge Disposition: Home Social History Tobacco Use [...] AM EDT Appointment Hematology [place] [address] 01/31/2024 10:20 AM EDT Office Visit [place] [address] Rebecca Samll MD [facility] [place]EC[place] [address] 08/01/2024 11:30 AM EDT Office Visit Dermatology at [facility] [address] [place] [address] Phan Engle MD [facility] DR JESS HERNAN[place] [address] documented as of this encounter Procedures Procedure Name Priority Date/Time Associated Diagnosis Comments REQUEST FOR 2ND READ DX KNEE STAT 12/13/2017 10:50 PM EDT documented in this encounter Results * Request for 2nd read DX Knee [...] may or may not represent nondisplaced fracture. Deion Henriquez MD IMG OUTSIDE INTERPR ETATION ORDERABLES documented in this encounter Visit Diagnoses Not on filedocumented in this encounter Care Teams Vibrating Screen Operator Relationship Specialty Start Date End Date Keiko Reddy MD [address] [place] [address] PCP - General Family Medicine 06/18/17 05/15/18 documented as of this encounter
--- OUTSIDE RECORDS SUMMARY | 2023-12-15 01:18 | XMS_ITS | Encounter Summary ---
Author Organization [facility] Address [facility] [place] [address] Care Team Providers Care Biometry Teacher Name Role Phone Keiko Reddy MD Primary Care Provider [phone] Encounter Details Date Type Department Care Team (Latest Contact Info) Description 06/25/2017 12:22 PM EST - 06/25/2017 2:21 PM EST Hospital En[place] [address] Kimani Rojas MD [facility] [place] [address] Discharge Disposition: Home Social History Tobacco Use [...] Reading Time Taken Comments Blood Pressure 126/84 06/25/2017 2:00 PM EST Pulse 79 06/25/2017 1:42 PM EST Temperature - - Respiratory Rate 16 06/25/2017 1:45 PM EST Oxygen Saturation 93% 06/25/2017 2:00 PM EST Inhaled Oxygen Concentration - - Weight - - Height - - Body Mass Index - - documented in this encounter Discharge Instructions * Discharge Instructions* Nataliia Salazar RN - 06/25/2017 1:47 PM EST Colonoscopy What to expect after the procedure You may feel a little more gassy or bloated than usual. This is normal. You should expect the return of normal bowel function in the 2 to 3 days. Activity Because of the sedation that you received your judgement and reaction time are effected ?? Go home and rest quietly for the remainder of the day. You may resume your normal activities tomorrow. ?? Change from one position to the next slowly. You may lose your balance unexpectedly ?? Be careful on stairs, as you may be unsteady on your feet FOR THE NEXT 24 HRS ?? DO NOT DRIVE OR OPERATE ANY MACHINERY ?? DO NOT DRINK ALCOHOLIC BEVERAGES ?? DO NOT SIGN LEGAL DOCUMENTS ?? If you are a smoker: DO NOT SMOKE WHILE YOU ARE ALONE Diet ?? Start by eating small portions of foods that ordinarily will not upset your stomach . Avoid gas producing foods for the next few days ?? Be gentle with what you choose to start with ?? Drink plenty of fluids ( unless your doctor has told you not to). IV SITE-- slight redness, or tenderness is normal. You can use warm compresses if you become concerned. If the tenderness +/or redness increases or foul drainage and a red streak occurs, please contact your PCP immediately When shoud you call for help? Call 911 anytime you think you may need emergency care. For example If you pass out ( loss of consciousness) If you pass maroon or bloody stools If you have severe belly pain Call your doctor now or seek immediate medical care If your stools are black and tarlike If your stools have streaks of blood, but you did not have a biopsy or any polyps removed If you have belly pain, or your belly is swollen and firm If you vomit If you have a fever If you are very dizzy Watch closely for changes in your health, and be sure to contact your doctor if you have any problems Your doctor will let you know when you will need your next colonoscopy. The results of your test and your risk for colorectal cancer will help your doctor decide how often you need to be checked. Wednesday-Wednesday Same Day Endo [phone] 7a-8p Otherwise contact [phone] and ask to speak to the grading clerk commissioner of relocation services Follow up care is a barnes part of your treatment and safety. Be sure to make and go to all appointments, and call your doctor if you are having problems. Discharge instructions reviewed with patient who expresses understanding documented in this encounter H&P Notes * Kimani Rojas MD - 06/25/2017 12:45 PM EST Gastroenterology and Hepatology Pre-Procedure History and Physical Exam Procedure: Colonoscopy: Indication: screen There is no problem list on file for this patient. EXAM: HEENT: Airway examined, oropharynx clear Mallampati Score: II (soft palate, uvula, fauces visible) LUNGS: Clear to auscultation HEART: Regular rate and rhythm, normal S1, S2 ABDOMEN: Normal bowel sounds, soft, non tender, non distended, A/P Proceed with the planned endoscopic procedure. ASA 1 - Normal health patient Sedation Plan: moderate (conscious sedation) Risks and benefits of the procedure explained to the patient. Consent signed. documented in this encounter Plan of Treatment Upcoming Encounters Date Type Department Care Team (Late st Contact Info) Description 01/31/2024 9:15 AM EDT Appointment [place] [address] 01/31/2024 10:20 AM EDT Office Visit [place] [address] Rebecca mSall MD [facility] G[place]ECOLOGIC [place] [address] 08/01/2024 11:30 AM EDT Office Visit Dermatology at [place] [address] [place] [address] Phan Engle MD [facility] DR JESS HERNANDE[place] [address] documented as of this encounter Procedures Procedure Name Priority Date/Time Associated Diagnosis Comments COLONOSCOPY, DIAGNOSTIC (WRVU 3.26) 06/25/2017 1:07 PM EST first screening COLONOSCOPY Routine 06/25/2017 12:40 PM EST documented in this encounter Results * COLONOSCOPY (06/25/2017 12:40 PM EST) [facility] Signature COLONOSCOPY [facility] Endoscopy Procedure Date: 06/25/2017 12:40 PM ? Patient Name: Daphne Pickard ? N: [id number] ? Date of : 1965 ? Age: 51 ? Order #: [id number] ? Instrument Name: [id number] ? Procedure: ? Colonoscopy Indications: ? Screening for colorectal malignant ? neoplasm Providers: ? Kimani Rojas MD, Rajinder Menjivar ? Tor Hernandez, Boiler Coverer Referring MD: ?Javier Green MD Medicines: ? [...] preparation was evaluated using ? the BBPS ([place] Bowel Preparation ? Scale) with scores of: [...] Green MD GENERAL SURGICAL ORD ERABLES [employer] documented in this encounter Visit Diagnoses Not on filedocumented in this encounter Active and Recently Administered Medications Times are shown in EST. PRN Medication Order 06/23/2017 06/24/2017 06/25/2017 fentaNYL 50 mcg/mL multi-dose injection (CANCELED) ONCE PRN, Starting on 06/25/17 at 1315, Until Wed06/25/17 at 1621, Intra-Operative (Intra-Procedure), Routine 1315 (Given - Provid er: Rajinder Hernandez RN)1318 (Given - Provider: Rajinder Hernandez RN)1321 (Given - Provider: Rajinder Hernandez, HAYLEY)1324 (Given - Provider: Rajinder Hernandez, HAYLEY) midazolam (PF) (VERSED) 1 mg/mL multi-dose injection (CANCELED) ONCE PRN, Starting on 06/25/17 at 1315, Until Wed06/25/17 at 1621, Intra-Operative (Intra-Procedure), Routine 1315 (Given - Provid er: Rajinder Hernandez RN)1318 (Given - Provider: Rajinder Hernandez, HAYLEY)1321 (Given - Provider: Rajinder Hernandez, HAYLEY)1324 (Given - Provider: Rajinder Hernandez RN) documented in this encounter Care Teams Biometry Teacher Relationship Specialty Start Date End Date Keiko Reddy MD [address] [address] PCP - General Family Medicine 06/18/17 05/15/18 documented as of this encounter
--- OUTSIDE RECORDS SUMMARY | 2023-12-15 01:18 | XMS_ITS | Encounter Summary ---
Author Organization [facility] Address [facility] [address] Care Team Providers Care Computational Physicist Name Role Phone Keiko Reddy MD Primary Care Provider [phone] Encounter Details Date Type Department Care Team (Late st Contact Info) Description 06/25/2017 1:30 PM EST - 06/25/2017 2:30 PM EST [place] [address] Kimani Rojas MD [facility] [place] [address] COLONOSCOPY, DIAGNOSTIC (WRVU 3.26) Social History Tobacco Use Types Packs/Day Years [...] encounter Discharge Instructions * Discharge Instructions* Nataliia Salazar, RN - 06/25/2017 1:47 PM EST Colonoscopy [...] to be checked. Wednesday-Wednesday Same Day Endo [phone] 7a-8p Otherwise contact [phone] and ask to speak to the tire builder manager application development Follow up care is a barnes part [...] AM EDT Appointment Hematology [place] [address] 01/31/2024 10:20 AM EDT Office Visit [place] [address] Rebecca Small MD [facility] [place] [address] 08/01/2024 11:30 AM EDT Office Visit Dermatology at [facility] [address] [place] [address] Phan Engle MD [facility] [address] JESS [place]HRNA[place] [address] documented as of this encounter Procedures Procedure Name Priority Date/Time Associated Diagnosis Comments COLONOSCOPY, DIAGNOSTIC (WRVU 3.26) 06/25/2017 1:07 PM EST first screening COLONOSCOPY Routine 06/25/2017 12:40 PM EST documented in this encounter Results * COLONOSCOPY (06/25/2017 12:40 PM EST) COLONOSCOPY [facility] Endoscopy Procedure Date: 06/25/2017 12:40 PM ? Patient Name: Daphne Pickard ? N: [id number] ? Date of : 1965 ? Age: 51 ? Order #: [id number] ? Instrument Name: [id number] ? Procedure: ? Colonoscopy Indications: ? Screening for colorectal malignant ? neoplasm Providers: ? Kimani Rojas MD, Rajinder Menjivar ? Tor Hernandez, Credit Collection Associate Referring MD: ?Javier Green MD Medicines: ? [...] preparation was evaluated using ? the BBPS ([place] Bowel Preparation ? Scale) with scores of: [...] MAR Action Action Date Dose Rate Site fentaNYL 50 mcg/mL multi-dose injection ONCE PRN, Starting on Wed06/25/17 at 1315, Until Wed06/25/17 at 1621, Intra-Operative (Intra-Procedure), Routine Given 06/25/2017 1:24 PM EST 50 mcg Given 06/25/2017 1:21 PM EST 50 mcg Given 06/25/2017 1:18 PM EST 50 mcg midazolam (PF) (VERSED) 1 mg/mL multi-dose injection ONCE PRN, Starting on Wed06/25/17 at 1315, Until Wed06/25/17 at 1621, Intra-Operative (Intra-Procedure), Routine Given 06/25/2017 1:24 PM EST 1 mg Given 06/25/2017 1:21 PM EST 1 mg Given 06/25/2017 1:18 PM EST 1 mg documented in this encounter Active and Recently Administered Medications Times are shown in EST. PRN Medication Order 06/23/2017 06/24/2017 06/25/2017 fentaNYL 50 mcg/mL multi-dose injection (CANCELED) ONCE PRN, Starting on Wed06/25/17 at 1315, Until Wed06/25/17 at 1621, Intra-Operative (Intra-Procedure), Routine 1315 (Given - Provid er: Rajinder Hernandez RN)1318 (Given - Provider: Rajinder Hernandez RN)1321 (Given - Provider: Rajinder Hernandez RN)1324 (Given - Provider: Rajinder Hernandez RN) midazolam (PF) (VERSED) 1 mg/mL multi-dose injection (CANCELED) ONCE PRN, Starting on Wed06/25/17 at 1315, Until Wed06/25/17 at 1621, Intra-Operative (Intra-Procedure), Routine 1315 (Given - Provid er: Rajinder Hernandez RN)1318 (Given - Provider: Rajinder Hernandez RN)1321 (Given - Provider: Rajinder Hernandez RN)1324 (Given - Provider: Rajinder Hernandez RN) documented in this encounter Care Teams Computational Physicist Relationship Specialty Start Date End Date Keiko Reddy MD [address] [address] PCP - General Family Medicine 06/18/17 05/15/18 documented as of this encounter
== END ==
PROVIDERS: PCP Family Medicine; Visit Provider Nurse Practitioner Family
DX: R93.2 Abnormal findings on diagnostic imaging of liver and biliary tract (principal)
CPT/HCPCS: 76705

== ENCOUNTER → 2023-12-28 00:48 | Outpatient (CLI) | payer MEDICARE, SELFPAY ==
--- NOTE | 2023-12-28 | DI.US_ITS ---
Exam(s) US AXILLA RT EXAM: US AXILLA RT CLINICAL HISTORY: LUMP AXILLARY TAIL OF RT BREAST,N63.31,H/O OVARIAN CA TECHNIQUE: Ultrasound right axilla performed using standard protocol. COMPARISON: We also scanned the opposite axilla for comparison FINDINGS: No solid or cystic masses, hypoechoic foci, areas of abnormal shadowing, or areas of skin thickening. A single benign-appearing lymph node is noted in the area of apparent clinical concern. There are n o pathologic appearing lymph nodes in the right axilla. No abnormal fluid collections. We scanned the opposite-left axilla for comparison which also revealed benign-appearing lymph nodes IMPRESSION: No sonographically suspicious finding in the right axilla.. DATA REPOSITORY:
--- OUTSIDE RECORDS SUMMARY | 2023-12-28 01:39 | XMS_ITS | Encounter Summary ---
Author Organization [facility] Address [address] [place] [address] Care Team Providers Care Applied Statistician Name Role Phone Keiko Reddy MD Primary Care Provider [phone] Encounter Details Date Type Department Care Team (Late st Contact Info) Description 12/07/2017 Orders Only Non [facility] Ancillary Services Keiko Reddy MD 8 [facility] [address] [place] [address] Other fatigue (Primary Dx); Obesity, [...] unspecified documented in this encounter Care Teams Applied Statistician Relationship Specialty Start Date End Date Keiko Reddy MD [address] [place] [address] PCP - General 01/05/11 documented as of this encounter
--- OUTSIDE RECORDS SUMMARY | 2023-12-28 01:39 | XMS_ITS | Encounter Summary ---
Author Organization [facility] Address [address] [place] [address] Care Team Providers Care Steel Turner Name Role Phone Keiko Reddy MD Primary Care Provider [phone] Encounter Details Date Type Department Care Team (Latest Contact Info) Description 01/08/2014 8:59 EDT - 01/08/2014 23:59 EDT Hospital Encounter [facility] [address] [place] [address] Unknown, Provider, Discharge Disposition: Home or Self [...] Code Departure Means Destination Home or Self Intermediate documented in this encounter Plan of Treatment Not on file documented as of this encounter Visit Diagnoses Not on filedocumented in this encounter Care Teams Steel Turner Relationship Specialty Start Date End Date Keiko Reddy MD [address] [phone] PCP - General 01/05/11 documented as of this encounter
--- OUTSIDE RECORDS SUMMARY | 2023-12-28 01:39 | XMS_ITS | Encounter Summary ---
Author Organization [facility] Address [address] [place] [address] Care Team Providers Care Vp Corporate Development Name Role Phone Keiko Reddy MD Primary Care Provider Reason for Referral * Consult (Routine) - Closed Specialty Diagnoses / Procedures Referred By Contac t Referred To Contact Orthopedic Surgery Diagnoses Shoulder pain Tor Valentine MD [address] [place] [phone] [facility] Ortho [place] [place] [address] Referral ID Status Reason Start Date Expiration Date V isits Requested Visits Authorized [id number] Closed Specialty Services Required 01/16/2014 1 1 Question Answer Reason for Request: shoulder pain Comments Bety * Referral (Routine) - Closed Specialty Diagnoses / Procedures Referred By Contac t Referred To Contact Rehab Therapies Diagnoses Shoulder pain Tor Valentine MD [address] [address] Referral ID Status Reason Start Date Expiration Date V isits Requested Visits Authorized [id number] Closed Specialty Services Required 01/16/2014 1 1 Question Answer Reason for Request: neck and shoulder pain * Radiology Services (Routine) - Closed Specialty Diagnoses / Procedures Referred By Contac t Referred To Contact Diagnoses Shoulder pain Procedures SHOULDER 2 OR MORE VIEWS Tor Valentine MD [address] [place] [phone] Referral ID Status Reason Start Date Expiration Date Visits Re quested Visits Authorized [id number] Closed 01/16/2014 1 1 * Radiology Services (Routine) - Closed Specialty Diagnoses / Procedures Referred By Contac t Referred To Contact Diagnoses Neck pain Procedures CERVICAL SPINE 4 OR MORE VIEWS Tor Valentine MD [address] [place] [phone] Referral ID Status Reason Start Date Expiration Date Visits Re quested Visits Authorized [id number] Closed 01/16/2014 1 1 Reason for Visit * Reason Comments Shoulder Pain Encounter Details Date Type Department Care Team (Late st Contact Info) Description 01/16/2014 10:00 EDT Office Visit [facility] Neurosurgery [address] [phone] Tor Valentine MD [address] [place] [phone] Neck pain (Primary Dx); Shoulder pain [...] ALLERGIES: None. SOCIAL HISTORY: She lives in [place], [place]. She does not smoke. FAMILY HISTORY: [...] today. We will have her seen at [facility] regarding her shoulder and further workup [...] and Symptoms/Comments: ?? 719.41-Pain in joint, shoulder czkczx-KGE-1-CM; shoulder pain . Findings: The glenohumeral point is unremarkable. There is minimal a.c. joint arthropathy. There is mild cortical irregularity at the greater tuberosity, of uncertain significance. Internal and external rotation views of the right shoulder would be helpful for further evaluation. Procedure Note 02/19/2014 SHOULDER 2 OR MORE VIEW 02/19/2014 1:24 PM Signs and Symptoms/Comments: 719.41-Pain in joint, shoulder wfgtcy-IIN-1-CM; shoulder pain . Findings: The glenohumeral point [...] VIEWS ??02/19/2014 1:24 PM Signs and Symptoms/Comments: ??723.6-Zpfefnsxkxp-AOV-9-CM; neck pain. Findings: 4 views of the [...] VIEWS 02/19/2014 1:24 PM Signs and Symptoms/Comments: 723.2-Yauqjkgtpyo-RLN-9-CM; neck pain. Findings: 4 views of the [...] region documented in this encounter Care Teams Vp Corporate Development Relationship Specialty Start Date End Date Keiko Reddy MD [address] [phone] PCP - General 01/05/11 documented as of this encounter
--- OUTSIDE RECORDS SUMMARY | 2023-12-28 01:39 | XMS_ITS | Encounter Summary ---
Author Organization [facility] Address [address] [place] [address] Care Team Providers Care Blank Driller Name Role Phone Keiko Reddy MD Primary Care Provider [phone] Encounter Details Date Type Department Care Team (Latest Contact Info) Description 12/24/2015 11:27 EDT - 12/24/2015 11:30 EDT Hospital Encounter [address] [address] Keiko Reddy MD 8 [facility] [address] [place] [phone] Discharge Disposition: Home or Self Care Social [...] on filedocumented in this encounter Care Teams Blank Driller Relationship Specialty Start Date End Date Keiko Reddy MD [address] [phone] PCP - General 01/05/11 documented as of this encounter
--- OUTSIDE RECORDS SUMMARY | 2023-12-28 01:39 | XMS_ITS | Encounter Summary ---
Author Organization [facility] Address [address] [place] [address] Care Team Providers Care Compressor Repairer Name Role Phone Keiko Reddy MD Primary Care Provider [phone] Reason for Visit * Reason Comments New Patient Visit Patient has a lesion on left shoulder x 6 months, a lesion on the left inner thigh x 1 year, and a lesion on the left cheek. Patient also has a lump under her right arm. Encounter Details Date Type Department Care Team (Late st Contact Info) Description 11/28/2013 16:00 EDT Office Visit [facility] Dermatology [address]th [address] [id number] Justin Blue MD 111 [facility], Level [address] [place] [address] Neoplasm of unspecified nature of [...] shower. DISCOMFORT: Extra-Strength Tylenol, as directed by can sorter, usually relieves any pain you may have. [...] during these hours. Limit outdoor activities to warehouse incentive selector and/or evening hours when the sunlight is [...] provide. In general, loose weaves (Cotton) and cloth bleaching range tender-colored fabrics offer less protection than tighter weaves [...] sensitive Recommended sun protection clothing websites www.sunprecautions.com www.coolibar.RPI ([employer]) www.Media Retrievers www.Red[employer] Technology.RPI ([employer]) documented in this encounter Progress Notes * [...] PATIENT INFORMATION: Daphne Coe : MRN: [id number] SURGEON: Phan Joel MD The indication, risks, [...] is not nervous/anxious. Cas Michel 15:31 11/28/2013 Walnut Dehydrator Operator, Dermatology documented in this encounter Plan of [...] ? DAPHNE COE ? Accession #: ? [id number] ? : ? 1965 (Age: 48) ??F [...] Blue MD PATHOLOGY ORDERABLES [facility] [address] [place] [address] documented in this encounter Visit Diagnoses Diagnosis Neoplasm of unspecified nature of bone, soft tissue, and skin- Primary Seborrheic keratosis Other seborrheic keratosis documented in this encounter Care Teams Compressor Repairer Relationship Specialty Start Date End Date Keiko Reddy MD 8 [facility] [address] [place] [address] PCP - General 01/05/11 documented as of this encounter
--- OUTSIDE RECORDS SUMMARY | 2023-12-28 01:39 | XMS_ITS | Encounter Summary ---
Author Organization [facility] Address [address] [place] [address] Care Team Providers Care Curb Builder Name Role Phone Keiko Reddy MD Primary Care Provider [phone] Encounter Details Date Type Department Care Team (Late st Contact Info) Description 11/05/2022 Lab Requisition [facility] Pathology & Laboratory Medicine - [facility] [address] [place] [address] Outr Resulting Lab, Provider Social History Tobacco [...] 19-9 13 <35 U/mL 11/06/2022 11:[address] [facility] Comment: NOTE: Serum CA [...] Resulting Lab CHEMISTRY & BLOOD GAS ORDERABLES [facility] [address] [place] [address] documented in this encounter Visit Diagnoses Not on filedocumented in this encounter Care Teams Curb Builder Relationship Specialty Start Date End Date Keiko Reddy MD [address] [phone] PCP - General 01/05/11 documented as of this encounter
--- OUTSIDE RECORDS SUMMARY | 2023-12-28 01:39 | XMS_ITS | Encounter Summary ---
Author Organization [facility] Address [address] [place] [address] Care Team Providers Care Telegraphic Typewriter Operator Chief Name Role Phone Keiko Reddy MD Primary Care Provider [phone] Reason for Visit * Reason Comments Basal Cell Carcinoma left shoulder Encounter Details Date Type Department Care Team (Late st Contact Info) Description 12/27/2013 8:00 EDT Office Visit [facility] Dermatology 5th Floor [facility] [address] [place], [place] [phone] Gage Ortega PA-C 111 [facility], Level [address] [place] [address] BCC (basal cell carcinoma), shoulder [...] about this product, please consult your doctor. [facility] DERMATOLOGIC AND LASER SURGERY UNIT EXCISIONAL WOUND CARE INSTRUCTIONS The DRESSING/BANDAID should remain in place for 24 hours. You may shower or bathe after 24 hours; remove the bandage and replace it after the shower. DISCOMFORT: Expect some discomfort. Extra-Strength Tylenol, taken as directed by the rail car maintenance mechanic, will help relieve pain. If the pain [...] during these hours. Limit outdoor activities to pasta press operator and/or evening hours when the sunlight is [...] provide. In general, loose weaves (Cotton) and shorts sifter-colored fabrics offer less protection than tighter weaves [...] sensitive Recommended sun protection clothing websites www.sunprecautions.com www.coolibar.FlyBridGe www.[facility].FlyBridGe www.Your[employer] Media.FlyBridGe documented in this encounter Progress Notes * [...] PATIENT INFORMATION: Daphne Coe : MRN: [id number] PROCEDURE DATE: 12/27/2013 SURGEON: NIDIA Nuno CURRICULUM COUNSELOR: Judi Draper MA LOCATION: left shoulder PREOPERATIVE [...] PATIENT INFORMATION: Daphne Coe : MRN: [id number] PROVIDER: NIDIA Nuno The indication, risks, benefits and alternatives [...] actinic keratosis(es) NIDIA Nuno Dermatology Outpatient Clinic [facility] * Judi Draper - 12/27/2013 0803 EDT [...] ? DAPHNE COE ? Accession #: ? [id number] ? : ? 1965 (Age: 48) ??F [...] 11:42 EDT Gage Ortega PA-C [facility] Organization Address City/State/ZIP Co de Phone Number ILYA RANGEL [address] [place] [address] documented in this encounter Visit Diagnoses Diagnosis BCC (basal cell carcinoma), shoulder- Primary Basal cell carcinoma of skin of upper limb, including shoulder documented in this encounter Care Teams Telegraphic Typewriter Operator Chief Relationship Specialty Start Date End Date Keiko Reddy MD [address] [phone] PCP - General 01/05/11 documented as of this encounter
--- OUTSIDE RECORDS SUMMARY | 2023-12-28 01:39 | XMS_ITS | Encounter Summary ---
Author Organization [facility] Address [address] [place] [address] Care Team Providers Care Adzing And Boring Machine Feeder Name Role Phone Keiko Reddy MD Primary Care Provider [phone] Encounter Details Date Type Department Care Team (Latest Contact Info) Description 10/18/2013 13:25 EDT - 10/18/2013 13:27 EDT Hospital Encounter [address] [address] Keiko Reddy MD 8 [facility] [address] [place] [address] Discharge Disposition: Home or Self [...] on filedocumented in this encounter Care Teams Adzing And Boring Machine Feeder Relationship Specialty Start Date End Date Keiko Reddy MD [address] [phone] PCP - General 01/05/11 documented as of this encounter
--- OUTSIDE RECORDS SUMMARY | 2023-12-28 01:39 | XMS_ITS | Referral Summary ---
Author Organization [facility] Address [address] [place] [address] Care Team Providers Care Coal Shooter Name Role Phone Keiko Reddy MD Primary Care Provider [phone] Allergies Active Allergy Reactions Criticality Noted Date Comments Gabapentin 11/17/[address] she [place] with it Medications Medication Sig Dispensed Refills [...] BLOOD GA S ORDERABLES Performing Organization Address City/State/[facility] Co de Phone Number [facility] [address] [place] [address] from Last 3 Months or Most Recently Relevant to Health Maintenance Care Teams Coal Shooter Relationship Specialty Start Date End Date Keiko Reddy MD [address] [phone] PCP - General 01/05/11
--- OUTSIDE RECORDS SUMMARY | 2023-12-28 01:39 | XMS_ITS | Clinical Summary ---
Author Organization [facility] Address [address] [place] [address] Care Team Providers Care Director Of State Name Role Phone Keiko Reddy MD Primary Care Provider [phone] Allergies Active Allergy Reactions Criticality Noted Date Comments Gabapentin 11/17/[address] she [place] with it Medications Medication Sig Dispensed Refills [...] GA S ORDERABLES [facility] [address] [place] [address] from Last 3 Months or Most Recently Relevant to Health Maintenance Care Teams Director Of State Relationship Specialty Start Date End Date Keiko Reddy MD [address] [phone] PCP - General 01/05/11
--- OUTSIDE RECORDS SUMMARY | 2023-12-28 01:39 | XMS_ITS | Encounter Summary ---
Author Organization [facility] Address [address] [place] [address] Care Team Providers Care Annealing Oven Operator Name Role Phone Keiko Reddy MD Primary Care Provider [phone] Encounter Details Date Type Department Care Team (Late st Contact Info) Description 05/12/2018 Results Only [facility]- [facility] [phone] Morro Maddox MD [address] [place] [phone] Social History Tobacco Use Types Packs/Day [...] ? DAPHNE COE ? Accession #: ? [id number] ? : ? 1965 (Age: 52) ??F [...] and electronically signed by: ? Radha Horan, [facility](ASCP) ? Report ??Date: 05/23/2018 09:50 HPV with Pap Test ? Date Ordered: ? 05/23/2018 ? Status: ?? Signed Out ?Date Complete: ? 05/24/2018 ? By: ??System Interface ? Date Reported: ? 05/24/2018 ? Interpretation RESULT: Negative for HPV. No E6 or E7 mRNA is detected from HPV types 16,18,31,33,35, 39,45,51,52,56,58, 59,66, and 68 by industrial relations director mediated amplification. Comments Document reviewed and electronically signed by: ? System Interface ? Report date: 05/24/2018 By the signature above, the attending physician certifies that he/she has personally conducted a gross and/or microscopic examination of the described specimens and rendered or confirmed the above diagnosis. End of Report [facility] 05/12/2018 05/13/2018 Morro Maddox MD PATHOLOGY ORDERABLES [facility] [address] [place] [address] documented in this encounter Visit Diagnoses Not on filedocumented in this encounter Care Teams Annealing Oven Operator Relationship Specialty Start Date End Date Keiko Reddy MD 8 [facility] [address] [place] [address] PCP - General 01/05/11 documented as of this encounter
--- OUTSIDE RECORDS SUMMARY | 2023-12-28 01:39 | XMS_ITS | Encounter Summary ---
Author Organization [facility] Address [address] [place] [address] Care Team Providers Care Music Theory Professor Name Role Phone Keiko Reddy MD Primary Care Provider [phone] Encounter Details Date Type Department Care Team (Late st Contact Info) Description 10/01/2020 Lab Requisition [facility] Pathology & Laboratory Medicine - [facility] [address] [place] [address] Grecia Maddox MD [address] [place] [phone] Encounter for other general examination Social History [...] of the complete sections examined. 10/02/2020 10:24 [facility] Attestation By the signature below, the attending physician certifies that they have 1) personally conducted a gross and/or microscopic examination of the described specimen(s), and/or personally interpreted the results of laboratory testing of the described specimen(s), and 2) personally rendered or confirmed the above diagnosis. 10/02/2020 10:24 [facility] at 1024 Microscopic Description Sections are of a papule with mild epidermal hyperplasia and hyperkeratosis. There is a proliferation of melanocytes within the dermis. The proliferation consists of nests, cords, and strands that diminish in size with descent into the dermis. The melanocytes are slightly enlarged but generally have round-oval nuclei and a moderate amount of cytoplasm. The melanocytes show underground repairer maturation. 10/02/2020 10:24 [facility] Clinical History 4 mm raised smooth lesion 10/02/2020 10:24 [facility] Gross Description A. Received in formalin labelled with proper patient identification (initials H, M) and R shoulder is a soler-white skin shave biopsy measuring 0.6 x 0.5 x 0.1 cm. At one edge there is a raised pink papule measuring 0.2 cm in diameter. Inked, trisected and submitted entirely in A1. NIDIA BUCKNER(ASCP) 10/01/2020 19:37 10/02/2020 10:24 T [facility] Performing Lab [facility] 10/02/2020 10:24 [facility] Scanned Images 10/02/2020 10:24 [facility] Tissue TISSUE SPECIMEN FROM SKIN / Unknown 09/30/2020 15:10 EDT 10/01/2020 17:40 EDT Grecia Maddox MD PATHOLOGY ORDERABLES [facility] [address] [place] [address] documented in this encounter Visit Diagnoses Diagnosis Encounter for other general examination documented in this encounter Care Teams Music Theory Professor Relationship Specialty Start Date End Date Keiko Reddy MD 8 [facility] [address] [place] [address] PCP - General 01/05/11 documented as of this encounter
--- OUTSIDE RECORDS SUMMARY | 2023-12-28 01:39 | XMS_ITS | Encounter Summary ---
Author Organization [facility] Address [address] [place] [address] Care Team Providers Care Cleat Maker Name Role Phone Keiko Reddy MD Primary Care Provider [phone] Reason for Visit * Reason Onset Date Comments Other 02/22/2014 Encounter Details Date Type Department Care Team (Late st Contact Info) Description 02/22/2014 Telephone [facility] Sports Medicine Program - [address] [address] Bandar Albert MD [address] [place] [phone] Other Social History Tobacco Use Types [...] Telephone Encounter - Radha Cannon - 02/22/2014 5941 EDT Tried to call patient today to notify her that her MRI has been authorized, patient did not answer and does not have VM set up, will try again tomorrow to try to coordinate a time for her to get her MRI done at [facility]. documented in this encounter Plan of Treatment Not on file documented as of this encounter Visit Diagnoses Not on filedocumented in this encounter Care Teams Cleat Maker Relationship Specialty Start Date End Date Keiko Reddy MD [address] [phone] PCP - General 01/05/11 documented as of this encounter
--- OUTSIDE RECORDS SUMMARY | 2023-12-28 01:39 | XMS_ITS | Encounter Summary ---
Author Organization [facility] Address [address] [place] [address] Care Team Providers Care Prison Teacher Name Role Phone Keiko Reddy MD Primary Care Provider [phone] Encounter Details Date Type Department Care Team (Latest Contact Info) Description 03/31/2017 14:24 EST - 03/31/2017 14:25 [facility] Hospital Encounter [address] [address] Juan Tabares FNP 8 [facility] [address] [place] [address] Discharge Disposition: Home or Self Care Social [...] on filedocumented in this encounter Care Teams Prison Teacher Relationship Specialty Start Date End Date Keiko Reddy MD [address] [phone] PCP - General 01/05/11 documented as of this encounter
--- OUTSIDE RECORDS SUMMARY | 2023-12-28 01:39 | XMS_ITS | Encounter Summary ---
Author Organization [facility] Address [address] [place] [address] Care Team Providers Care Newspaper Editor Managing Name Role Phone Keiko Reddy MD Primary Care Provider [phone] Reason for Visit * Reason Onset Date Comments Requesting Sooner Appointment 11/02/2013 Encounter Details Date Type Department Care Team (Late st Contact Info) Description 11/02/2013 Telephone [facility] Dermatology 3rd Floor [facility] [address] [place], [place] [phone] Mulugeta Garcia MD Requesting Sooner Appointment Social [...] - 11/06/2013 1142 EDT Referral received from [facility]. Patient is being referred by Dr. Keiko Reddy for lesion on shoulder needs eval. Attempted to call patient, Mailbox full, can not accept messages. Spoke to Natty at [facility]. No other numbers available for patient. Spoke [...] on filedocumented in this encounter Care Teams Newspaper Editor Managing Relationship Specialty Start Date End Date Keiko Reddy MD [address] [phone] PCP - General 01/05/11 documented as of this encounter
--- OUTSIDE RECORDS SUMMARY | 2023-12-28 01:39 | XMS_ITS | Encounter Summary ---
Author Organization [facility] Address [address] [place] [address] Care Team Providers Care Toxicologist Name Role Phone Keiko Reddy MD Primary Care Provider [phone] Encounter Details Date Type Department Care Team (Late st Contact Info) Description 03/05/2014 Abstract [facility] Sports Medicine Program - [address] [address] Bandar Albert MD [address] [place] [address] Social History Tobacco Use Types [...] on filedocumented in this encounter Care Teams Toxicologist Relationship Specialty Start Date End Date Keiko Reddy MD [address] [phone] PCP - General 01/05/11 documented as of this encounter
--- OUTSIDE RECORDS SUMMARY | 2023-12-28 01:39 | XMS_ITS | Encounter Summary ---
Author Organization [facility] Address [address] [place] [address] Care Team Providers Care Academic Services Coordinator Name Role Phone Keiko Reddy MD Primary Care Provider [phone] Encounter Details Date Type Department Care Team (Late st Contact Info) Description 12/24/2015 Results Only [facility] [phone] Keiko Reddy MD 8 [facility] [address] [place] [address] Social History Tobacco Use Types [...] 3.5 - 5.0 mEq/L 12/24/2015 20:51 EDT [facility] Sodium 143 136 - 145 mEq/L 12/24/2015 20:51 EDT [facility] Chloride 99 96 - 110 mEq/L 12/24/2015 20:51 [facility] CO2 30 24 - 32 mEq/L 12/24/2015 20:51 [facility] Total Alkaline Phosphatase 58 38 - 126 U/L 12/24/2015 20:51 [facility] Bilirubin, Total 0.5 <1.4 mg/dl 12/24/19 16 20:51 [facility] AST 29 15 - 46 U/L 12/24/2015 20:51 [facility] ALT 37 <53 U/L 12/24/2015 20:51 [facility] Albumin 4.4 3.4 - 4.9 g/dl 12/24/2015 20:51 [facility] Total Protein 6.8 6.3 - 8.2 g/dl 12/24/2015 20:51 [facility] Creatinine 0.81 0.52 - 1.04 mg/dl 12/24/2015 20:51 [facility] GFR, Calculated 85 >60 ml/min/1.7 3m2 12/24/2015 20:51 [facility] Comment: eGFR calculated using CKD-EPI equation for non Americans. Multiply eGFR by 1.16 for Americans. BUN 14 10 - 26 mg/dl 12/24/2015 20:51 [facility] Calcium 9.6 8.5 - 10.5 mg/dl 12/24/2015 20:51 [facility] Calculated Calcium 9.6 8.5 - 10.5 mg/dl 12/24/2015 20:51 [facility] Glucose, Serum 91 70 - 100 mg/dl 12/24/2015 20:51 [facility] Fasting? Unknown 12/24/2015 19:42 [facility] BLOOD SPECIMEN / Unknown 12/24/2015 16:47 EDT 12/24/2015 19:42 EDT Keiko Reddy MD CHEMISTRY & BLOOD GA S ORDERABLES [facility] [address] [place] [address] * (ABNORMAL) HEMAGRAM (12/24/2015 16:47 EDT) WBC 7.05 4.0 - 12.4 K/cmm 12/24/2015 20:24 EDT [facility] RBC 4.28 3.86 - 5.04 M/cmm 12/24/2015 20:24 EDT [facility] Hemoglobin 13.6 11.6 - 15.2 gm/dl 12/24/2015 20:24 EDT [facility] HCT 39.0 34.9 - 44.4 % 12/24/2015 20:24 T [facility] MCV 91 81 - 98 fl 12/24/2015 20:24 EDT [facility] MCH 31.8 26.7 - 33.3 pg 12/24/2015 20:24 EDT [facility] MCHC 34.9 32.1 - 35.9 gm/dl 12/24/2015 20:24 EDT [facility] RDW-CV 11.7 11.7 - 14.6 % 12/24/2015 20:24 [facility] RDW-SD 38.7 37.6 - 50.3 fl 12/24/2015 20:24 T [facility] PLT 266 141 - 377 K/cmm 12/24/2015 20:24 T [facility] MPV 9.0(L) 9.5 - 12.7 fl 12/24/2015 20:24 EDT [facility] BLOOD SPECIMEN / Unknown 12/24/2015 16:47 EDT 12/24/2015 19:42 EDT Keiko Reddy MD HEMATOLOGY & PF4 ORD ERABLES [facility] [address] [place] [address] documented in this encounter Visit Diagnoses Not on filedocumented in this encounter Care Teams Academic Services Coordinator Relationship Specialty Start Date End Date Keiko Reddy MD [address] [place] [address] [address] [place] [phone] PCP - General 01/05/11 documented as of this encounter
--- OUTSIDE RECORDS SUMMARY | 2023-12-28 01:39 | XMS_ITS | Encounter Summary ---
Author Organization [facility] Address [address] [place] [address] Care Team Providers Care Ski Lift Operator Name Role Phone Keiko Reddy MD Primary Care Provider [phone] Reason for Visit * Reason Comments Shoulder Pain right Neck Pain Encounter Details Date Type Department Care Team (Late st Contact Info) Description 02/19/2014 13:[address] [facility] Sports Medicine Program - [address] [address] Bandar Albert MD [address] [place] [phone] Neck pain (Primary Dx); Right shoulder [...] lift-off test. DIAGNOSTIC DATA: MRI cervical spine, [facility] 01/08/2014 was reviewed as was the [...] - Bandar Albert MD cn Dictation ID: [id number] cc: Keiko Reddy MD, [address], [address], [place] [address] Tor Valentine MD, FA - Neurosurgery [address] [place] [address] documented in this encounter Plan of Treatment Not on file documented as of this encounter Visit Diagnoses Diagnosis Neck pain- Primary Cervicalgia Right shoulder pain Pain in joint, shoulder region documented in this encounter Care Teams Ski Lift Operator Relationship Specialty Start Date End Date Keiko Reddy MD [address] [phone] PCP - General 01/05/11 documented as of this encounter
--- OUTSIDE RECORDS SUMMARY | 2023-12-28 01:39 | XMS_ITS | Encounter Summary ---
Author Organization [facility] Address [address] [place] [address] Care Team Providers Care Belt Dresser Name Role Phone Keiko Reddy MD Primary Care Provider [phone] Reason for Referral * Radiology Services (Routine) - Closed Specialty Diagnoses / Procedures Referred By Marie diaz Referred To Contact Diagnoses Right shoulder pain Procedures MR SHOULDER Bandar Albert MD [address] [place] [phone] Referral ID Status Reason Start Date Expiration Date Visits Re quested Visits Authorized [id number] Closed 02/20/2014 05/21/2014 1 1 Encounter Details Date Type Department Care Team (Late st Contact Info) Description 02/19/2014 Orders Only [facility] Sports Medicine Program - [address] [address] Bandar Albert MD [address] [place] [phone] Right shoulder pain (Primary Dx) Social [...] region documented in this encounter Care Teams Belt Dresser Relationship Specialty Start Date End Date Keiko Reddy MD [address] [address] PCP - General 01/05/11 documented as of this encounter
--- OUTSIDE RECORDS SUMMARY | 2023-12-28 01:39 | XMS_ITS | Encounter Summary ---
Author Organization [facility] Address [address] [place] [address] Care Team Providers Care Building Maintenance Superintendent Name Role Phone Keiko Reddy MD Primary Care Provider [phone] Reason for Visit * Reason Comments Elbow Pain right Encounter Details Date Type Department Care Team (Latest Contact Info) Description 11/23/2013 12:00 EDT Office Visit [facility] Hand & Upper Extremity Program - [facility] Re[facility] by [facility] [place] [address] Nir Garces MD [address] [phone] Carpal tunnel syndrome (Primary Dx); Pain in [...] Notes * Nir Garces MD - 11/23/2013 9398 EDT ORTHOPAEDICS AND REHABILITATION SERVICES ELECTRODIAGNOSTIC MEDICINE [...] recent MRI of her cervical spine from [facility] Radiology, which I have reviewed. For [...] - Nir Garces MD tn Dictation ID: [id number] documented in this encounter Plan of Treatment [...] daily. added in this encounter Care Teams Building Maintenance Superintendent Relationship Specialty Start Date End Date Keiko Reddy MD [address] [address] PCP - General 01/05/11 documented as of this encounter
--- OUTSIDE RECORDS SUMMARY | 2023-12-28 01:39 | XMS_ITS | Encounter Summary ---
Author Organization [facility] Address [address] [place] [address] Care Team Providers Care Independent Living Specialist Name Role Phone Keiko Reddy MD Primary Care Provider [phone] Encounter Details Date Type Department Care Team (Late st Contact Info) Description 03/31/2017 Results Only [facility] [phone] Mick Tabares FNP 8 [facility] [address] [place] [address] Social History Tobacco Use Types Packs/Day Years [...] when reading/interpret ing unformatted reports. Name: ? DAPHNE COE ? Accession #: ? [id number] ? : ? 1965 (Age: 51) ??F ?Collect Date: ? 03/31/2017 ? Location: ? DABF ? Receive Date: ? 04/02/2017 ? Provider: MICK TABARES ACCURACY EXPERT Copy to: ? Final Report SPECIMEN ADEQUACY ? Satisfactory for Evaluation - transformation zone component present GENERAL CATEGORIZATION ? Epithelial Cell Abnormality INTERPRETATION ? Squamous Cell Abnormality - Atypical squamous cells, undetermined significance (ASC-US). EDUCATIONAL NOTES/RECOMMENDAT IONS ? [facility] recommends following ASCCP's 2012 Updated Consensus [...] types 16,18,31,33,35, 39,45,51,52,56,58 ,59,66, and 68 by sonogram technician mediated amplification. Comments Document reviewed and electronically signed by: ? System Interface ? Report date: 04/19/2017 By the signature above, the attending physician certifies that he/she has personally conducted a gross and/or microscopic examination of the described specimens and rendered or confirmed the above diagnosis. End of Report [facility] 03/31/2017 04/02/2017 Mick GOMEZP PATHOLOGY O RDERABLES [facility] [address] [place] [address] documented in this encounter Visit Diagnoses Not on filedocumented in this encounter Care Teams Independent Living Specialist Relationship Specialty Start Date End Date Keiko Reddy MD 8 [facility] [address] [place] [phone] PCP - General 01/05/11 documented as of this encounter
--- OUTSIDE RECORDS SUMMARY | 2023-12-28 01:40 | XMS_ITS | Encounter Summary ---
Author Organization [facility] Address [facility] [place] [address] Care Team Providers Care Financial Systems Manager Name Role Phone Grecia Maddox MD Primary Care Provider [phone] Encounter Details Date Type Department Care Team [...] AM EDT Appointment Hematology [place] [address] 01/31/2024 10:20 AM EDT Office Visit [place] [address] Rebecca Small MD [facility] DR [place] [address] 08/01/2024 11:30 AM EDT Office Visit Dermatology at [facility] [address] [place] [phone] Phan Engle MD [facility] DR JESS [place] [address] documented as of this encounter Visit Diagnoses Not on filedocumented in this encounter Care Teams Financial Systems Manager Relationship Specialty Start Date End Date Grecia Maddox MD [address] [place] [address] PCP - General Family Medicine 05/16/18 07/14/23 documented as of this encounter
--- OUTSIDE RECORDS SUMMARY | 2023-12-28 01:40 | XMS_ITS | Encounter Summary ---
Author Organization [facility] Address [facility] [place] [address] Care Team Providers Care Club Car Attendant Name Role Phone ScottyNelia Disha Primary Care [...] AM EDT Appointment Hematology [place] [address] 01/31/2024 10:20 AM EDT Office Visit [place] [address] Rebecca Small MD [facility] [place] [address] 08/01/2024 11:30 AM EDT Office Visit Dermatology at [facility] [address] [place] [phone] Phan Engle MD [facility] DR J[address] [place] [address] documented as of this encounter Visit Diagnoses Not on filedocumented in this encounter Care Teams Club Car Attendant Relationship Specialty Start Date End Date Disha Hayden [address] [place] [address] PCP - General Family Medicine 07/15/23 documented as of this encounter
--- OUTSIDE RECORDS SUMMARY | 2023-12-28 01:40 | XMS_ITS | Encounter Summary ---
Author Organization [facility] Address [address] [place] [address] Care Team Providers Care Maint Mechanic Name Role Phone Keiko Reddy MD Primary Care Provider [phone] Encounter Details Date Type Department Care Team (Latest Contact Info) Description 11/18/2011 8:44 EDT - 11/18/2011 14:09 EDT Hospital Encounter [facility] Perioperative Services - [address] [phone] Mauricio Stinson MD [address] [place] [address] Discharge Disposition: Home or Self [...] about your appointment please callthe office at [phone] ?? Concerns: Call our office immediately if [...] documented in this encounter Progress Notes * OCEANOGRAPHER PHYSICAL, ALEYDA 2 - 11/23/2011 1028 EDT * [...] documented in this encounter H&P Notes * OCEANOGRAPHER PHYSICAL, ALEYDA 2 - 11/23/2011 1028 EDT * Mauricio Stinson MD - 11/18/2011 1212 EDT The preoperative history and physical which was performed within 30 days of this procedure has been reviewed and the clinically appropriate elements of the physical examination have been repeated. There are no changes to the documented history and physical or if so such changes are documented below MAURICIO STINSON MD 11/18/2011 12:12 documented in this encounter Procedure Notes * OCEANOGRAPHER PHYSICAL, SCAN 2 - 11/23/2011 1028 EDTAssociated Order(s): ECG REPORT - SCANNED documented in this encounter OR Notes * OR PreOp - OCEANOGRAPHER PHYSICAL, SCAN 2 - 11/23/2011 1028 EDT * OR Surgeon - Mauricio Stinson MD - 11/18/2011 1411 EDT OPERATIVE REPORT SERVICE DATE: 11/18/2011 SURGEON: Mauricio Stinson MD RENTAL COORDINATOR: None. PREOPERATIVE DIAGNOSIS: 1. Left carpal tunnel [...] and placed supine on the OR table. Jes[place] block anesthesia was placed by the anesthesiology [...] based U-shaped flap was created. A synovial Halstad was used to scrape the undersurface of the transverse carpal ligament. The patient had irritation of the median nerve with this placement of the synovial Halstad. The endoscope was introduced into the carpal tunnel. Excellent visualization was achieved. We divided the transverse carpal ligament in a aejarf-dv-vidntnnl direction. Proximal and distal to our incision, [...] PM / Mauricio Stinson MD cs Confirmation: [id number] Dictation ID: [id number] * Anesthesia Procedure Notes - OCEANOGRAPHER PHYSICAL, SCAN 2 - 11/18/2011 1314 EDT * Anesthesia Procedure Notes - OCEANOGRAPHER PHYSICAL, SCAN 2 - 11/18/2011 1307 EDT * OR PreOp - OCEANOGRAPHER PHYSICAL, SCAN 2 - 11/18/2011 1259 EDT * Anesthesia Preprocedure Evaluation - OCEANOGRAPHER PHYSICAL, SCAN 2 - 11/18/2011 1102 EDT documented in this encounter Miscellaneous Notes * Scanned Note-Null - OCEANOGRAPHER PHYSICAL, SCAN 2 - 11/23/2011 1028 EDT * Scanned Note-Null - OCEANOGRAPHER PHYSICAL, SCAN 2 - 11/23/2011 1028 EDT * [...] EDT) 11/23/2011 10:2 8 EDT Narrative Transcriptions OCEANOGRAPHER PHYSICAL, SCAN 2 - 11/23/2011 10:28 EDT Scan 2 Ground Operations Crew Member PROCEDURE/MINOR EUGENIA GICAL ORDERABLES documented in this [...] 11/18/2011 documented in this encounter Care Teams Maint Mechanic Relationship Specialty Start Date End Date Keiko Reddy MD [address] [phone] PCP - General 01/05/11 documented as of this encounter
--- OUTSIDE RECORDS SUMMARY | 2023-12-28 01:40 | XMS_ITS | Encounter Summary ---
Author Organization [facility] [place] [address] Care Team Providers Care Events Specialist Name Role Phone Grecia Maddox MD Primary Care Provider [phone] Encounter Details Date Type Department Care Team (Late st Contact Info) Description 04/23/2023 Orders Only Gyne[place] [phone] Beverly Pillai, RN Malignant neoplasm of right [...] AM EDT Appointment Hematology [place] [phone] 01/31/2024 10:20 AM EDT Office Visit Gy[place] [address] Rebecca Small MD [facility] [place] [address] 08/01/2024 11:30 AM EDT Office Visit Dermatology at [facility] [address] [place] [address] Phan Engle MD [facility] DR JESS [place] [address] documented as of this encounter Results * Cancer Antigen 125 (04/26/2023 9:34 AM EST) CA 125 9.2 <=38.1 unit/mL [facility] Comment: CA 125 Reference [...] Lab Rebecca Small MD CHEMISTRY ORDERABL ES [facility] [place] [address] documented in this encounter Visit Diagnoses Diagnosis Malignant neoplasm of right ovary Malignant neoplasm of ovary documented in this encounter Care Teams Events Specialist Relationship Specialty Start Date End Date Grecia Maddox MD [address] [place] [address] PCP - General Family Medicine 05/16/18 07/14/23 documented as of this encounter
--- OUTSIDE RECORDS SUMMARY | 2023-12-28 01:40 | XMS_ITS | Encounter Summary ---
Author Organization [facility] Address [address] [place] [address] Care Team Providers Care Poultry Trimmer Name Role Phone Keiko Reddy MD Primary Care Provider [phone] Encounter Details Date Type Department Care Team (Late st Contact Info) Description 02/24/2012 Results Only [facility] Laboratory Services - [facility] ([facility] [address] [place] [address] Keiko Reddy MD 8 [facility] [address] [place] [address] Social History Tobacco Use Types [...] BLOOD GA S ORDERABLES Performing Organization Address [facility] de Phone Number [facility] [address] [place] [address] * HDL (02/24/2012 11:38 EDT) Pathologist [facility] HDL 92 mg/dl [facility] Comment: Low:<40 Normal:40-60 Desirable: >60 02/24/2012 11:3 8 EDT 02/24/2012 20:29 EDT Keiko Reddy MD CHEMISTRY & BLOOD GA S ORDERABLES Performing Organization Address [facility] Phone Number [facility] [address] [place] [address] * FSH (02/24/2012 11:38 EDT) FSH 101.3 mIU/ml [facility] Comment: Follicular: 2-11 Mid-Cycle Peak: 3.4-35 Luteal: 1-9 Postmenopausal: 25-120 02/24/2012 11:3 8 EDT 02/24/2012 20:29 EDT Keiko Reddy MD CHEMISTRY & BLOOD GA S ORDERABLES Performing Organization Address [facility] Co de Phone Number [facility] [address] [place] [address] * ESTRADIOL, ADULTS (02/24/2012 11:38 EDT) Pathologist [facility] Estradiol <12 pg/ml [facility] Comment: By [...] de Phone Number [facility] [address] [place] [address] * (ABNORMAL) COMPREHENSIVE METABOLIC PANEL (CMP) (02/24/2012 11:38 EDT) Pathologist [facility] Potassium 4.0 3.5 - 5.0 mEq/L [facility] [...] BLOOD GA S ORDERABLES Performing Organization Address [facility] Co de Phone Number [facility] [address] [place] [address] * CHOLESTEROL (02/24/2012 11:38 EDT) Cholesterol 229 mg/dl [facility] Comment: Desirable:<200 Borderline High:200-239 High:>me=773 02/24/2012 11:3 8 EDT 02/24/2012 20:29 EDT Keiko Reddy MD CHEMISTRY & BLOOD GA S ORDERABLES Performing Organization Address [facility] de Phone Number [facility] [address] [place] [address] * HEMAGRAM (02/24/2012 11:38 EDT) WBC 6.39 [...] & PF4 ORD ERABLES Performing Organization Address [facility] Co de Phone Number [facility] [address] [place] [address] * CA 19-9 (02/24/2012 11:38 EDT) Carbohydrate Ag 19-9, S 8 <35 U/mL [facility] Comment: Serum CA 19-9 concentration should not be interpreted as absolute evidence for the presence or absence of malignant disease. Assayed utilizing [employer] Immunoenzymatic technology. Values obtained by using different assay methods cannot be used interchangeably. 02/24/2012 11:3 8 EDT 02/24/2012 20:29 EDT Keiko Reddy MD CHEMISTRY & BLOOD GA S ORDERABLES [facility] [address] [place] [address] documented in this encounter Visit Diagnoses Not on filedocumented in this encounter Care Teams Poultry Trimmer Relationship Specialty Start Date End Date Keiko Reddy MD 8 [facility] [address] [place] [address] PCP - General 01/05/11 documented as of this encounter
--- OUTSIDE RECORDS SUMMARY | 2023-12-28 01:40 | XMS_ITS | Encounter Summary ---
Author Organization [facility] Address [address] [place] [address] Care Team Providers Care News Camera Operator Name Role Phone Unknown, Provider Primary Care Provider [phone] Encounter Details Date Type Department Care Team (Latest Contact Info) Description 06/23/2010 12:22 EST - 06/23/2010 12:23 [facility] Hospital Encounter [facility] - Other [address] [place] [address] Keiko Reddy MD 8 [facility] [address] [place] [phone] Discharge Disposition: Home or Self Care Social [...] on filedocumented in this encounter Care Teams News Camera Operator Relationship Specialty Start Date End Date Unknown, Provider, PCP - General 04/14/10 01/04/11 documented as of this encounter
--- OUTSIDE RECORDS SUMMARY | 2023-12-28 01:40 | XMS_ITS | Encounter Summary ---
Author Organization [facility] Address [address] [place] [address] Care Team Providers Care Adult Basic Education Manager Name Role Phone Keiko Reddy MD Primary Care Provider [phone] Reason for Referral * Consult, Test and Treat (Routine) - Closed Specialty Diagnoses / Procedures Referred By Marie diaz Referred To Contact Diagnoses Elbow pain Chay Garcia MD [address] [place] [phone] Referral ID Status Reason Start Date Expiration Date V isits Requested Visits Authorized [id number] Closed Specialty Services Required 06/24/2011 1 1 Question Answer Reason for Request: Functional Capacity Evaluation Date of Onset or Injury: 11/2010 Reason for Visit * Reason Comments Elbow Problem Right Encounter Details Date Type Department Care Team (Late st Contact Info) Description 06/24/2011 8:00 EST Office Visit [facility] Hand & Upper Extremity Program - [address] [place] [address] Chay Garcia MD [address] [place] [address] Elbow pain (Primary Dx); Radial [...] Notes * Chay Garcia MD - 06/24/2011 7818 EST Daphne Pickard is a 45 y.o.yo [...] She lives by herself. 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 Objective: General: No acute distress. 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 She has a 2+ palpable radial pulse. [...] encounter Miscellaneous Notes * Scanned Note-Null - Shift Supervisor, Scan - 06/25/2011 1520 EST documented in [...] hours. added in this encounter Care Teams Adult Basic Education Manager Relationship Specialty Start Date End Date Keiko Reddy MD [address] [phone] PCP - General 01/05/11 documented as of this encounter
--- OUTSIDE RECORDS SUMMARY | 2023-12-28 01:40 | XMS_ITS | Encounter Summary ---
Author Organization [facility] Address [address] [place] [address] Care Team Providers Care Scuba Dive Training Instructor Name Role Phone Keiko Redyd MD Primary Care Provider [phone] Encounter Details Date Type Department Care Team (Late st Contact Info) Description 03/22/2012 Results Only [facility] Laboratory Services - [facility] ([facility]) [address] [place] [address] Keiko Reddy MD 8 [facility] [address] [place] [address] Social History Tobacco Use Types [...] GA S ORDERABLES [facility] [address] [place] [address] * HEPATITIS B PROFILE (03/22/2012 13:13 EDT) [...] BLOOD GA S ORDERABLES Performing Organization Address [facility] de Phone Number [facility] [address] [place] [address] * HEPATITIS C ANTIBODY (03/22/2012 13:13 EDT) Hepatitis C Ab Negative [facility] Comment:Reference Range: Neg ative 03/22/2012 13:1 3 EDT 03/22/2012 19:04 EDT Keiko Reddy MD CHEMISTRY & BLOOD GA S ORDERABLES Performing Organization Address [facility] Phone Number [facility] [address] [place] [address] * HEPATITIS A TOTAL ANTIBODY (03/22/2012 13:13 EDT) Hep A Antibody Negative [facility] Comment:Reference Range: Neg ative 03/22/2012 13:1 3 EDT 03/22/2012 19:04 EDT Keiko Reddy MD CHEMISTRY & BLOOD GA S ORDERABLES Performing Organization Address [facility] Phone Number [facility] [address] [place] [address] * (ABNORMAL) GGT (03/22/2012 13:13 EDT) GGT 88(H) 12 - 43 U/L [facility] 03/22/2012 13:1 3 EDT 03/22/2012 19:04 EDT Keiko Reddy MD CHEMISTRY & BLOOD GA S ORDERABLES Performing Organization Address [facility] Phone Number [facility] [address] [place] [address] * ANTI NUCLEAR ANTIBODY (03/22/2012 13:13 EDT) Anti Nuclear Ab <40 0 - 40 Dils [facility] 03/22/2012 13:1 3 EDT 03/22/2012 19:04 EDT Keiko Reddy MD IMMUNOLOGY AND LISANDRA LUNA ORDERABLES [facility] [address] [place] [address] documented in this encounter Visit Diagnoses Not on filedocumented in this encounter Care Teams Scuba Dive Training Instructor Relationship Specialty Start Date End Date Keiko Reddy MD [address] [phone] PCP - General 01/05/11 documented as of this encounter
--- OUTSIDE RECORDS SUMMARY | 2023-12-28 01:40 | XMS_ITS | Encounter Summary ---
Author Organization [facility] [place] [address] Care Team Providers Care Seed Cutter Name Role Phone CiaraJuancarlosDisha Primary Care Provider Encounter Details Date Type Department Care Team (Late st Contact Info) Description 10/21/2023 Orders Only [place] [address] Elis Warner, RN Endometrial cancer; Malignant neoplasm [...] AM EDT Appointment [place]ematology [place] [phone] 01/31/2024 10:20 AM EDT Office [place] [address] Rebecca Small MD [facility] [place] [address] 08/01/2024 11:30 AM EDT Office Visit Dermatology at [facility] [address] [place] [phone] Phan Engle MD [facility] [place] [address] documented as of this encounter Results * Cancer Antigen 125 (10/25/2023 9:35 AM EDT) CA 125 9.5 <=38.1 unit/mL [facility] Comment: CA 125 Reference Interval [...] Lab Rebecca Small MD CHEMISTRY ORDERABL ES [facility] [place] [address] documented in this encounter Visit Diagnoses Diagnosis Endometrial cancer Malignant neoplasm of corpus uteri, except isthmus Malignant neoplasm of ovary, unspecified laterality documented in this encounter Care Teams Seed Cutter Relationship Specialty Start Date End Date Disha Hayden [address] [place] [address] PCP - General Family Medicine 07/15/23 documented as of this encounter
--- OUTSIDE RECORDS SUMMARY | 2023-12-28 01:40 | XMS_ITS | Encounter Summary ---
Author Organization [facility] Address [facility] [place] [address] Care Team Providers Care Globe Tester Name Role Phone ScottyNelia Disha Primary Care Provider Reason for Visit * Reason Comments Established 3 month follow up Encounter Details Date Type Department Care Team (Late st Contact Info) Description 10/25/2023 10:20 AM EDT Office Visit [place] [address] Danita Martinez MD [facility] [place] [address] Malignant neoplasm of right ovary Social History [...] 10:20 AM EDT Division [place] [address] Surveillance Visit: Patient Active Problem List Diagnosis [...] chaperoned by MARY SOLO. 10/25/23 In the [facility]/ONC 3K clinic. @ Vitals Flowsheet Row Office Visit from 10/25/[address] at [facility] Weight 77.6 kg (171 lb) Height 166.4 cm (5' 5.51) BSA (Calculated - sq m) 1.89 sq meters BMI (Calculated) 28.01 BP 118/84 documented in this encounter Plan of Treatment Upcoming Encounters Date Type Department Care Team (Late st Contact Info) Description 01/31/2024 9:15 AM EDT Appointment H[place] [address] 01/31/2024 10:20 AM EDT Office Visit [place] [address] Danita Martinez MD [facility] [address] 08/01/2024 11:30 AM EDT Office Visit Dermatology at [facility] [address] [place] [address] Phan Engle MD [facility] [address] [address] documented as of this encounter Visit Diagnoses Diagnosis Malignant neoplasm of right ovary Malignant neoplasm of ovary documented in this encounter Care Teams Globe Tester Relationship Specialty Start Date End Date Disha Hayden [address] [place] [address] PCP - General Family Medicine 07/15/23 documented as of this encounter
--- OUTSIDE RECORDS SUMMARY | 2023-12-28 01:40 | XMS_ITS | Encounter Summary ---
Author Organization [facility] [place] [address] Care Team Providers Care Aperture Mask Etcher Name Role Phone Disha Hayden Primary Care Provider Encounter Details Date Type Department Care Team (Late st Contact Info) Description 11/12/2023 Ancillary Procedure [place] [phone] Disha Hayden [address] [place] [address] Social History Tobacco Use Types Packs/Day Years [...] AM EDT Appointment Hematology [place] [phone] 01/31/2024 10:20 AM EDT Office Visit [place] [address] Rebecca Small MD [facility] [place] [address] 08/01/2024 11:30 AM EDT Office Visit Dermatology at [facility] [address] [place] [address] Phan Engle MD [facility] [place] [address] documented as of this encounter Procedures Procedure Name Priority Date/Time Associated Diagnosis Comments FILM LIBRARY STORAGE ONLY MAMMO Routine 11/12/2023 12:00 AM EDT documented in this encounter Results * Film Library- Storage Only Mammo (11/12/2023 12:00 AM EDT) Narrative [facility] - 12/17/2023 10:00 AM EDT This exam is auto-finalizing. It's purpose is for storage only. Disha Hayden [facility] FILM LIBRARY OR DERABLES Performing Organization Address City/State/[facility] Co de Phone Number [place], [place] documented in this encounter Visit Diagnoses Not on filedocumented in this encounter Care Teams Aperture Mask Etcher Relationship Specialty Start Date End Date Disha Hayden [address] [place] [address] PCP - General Family Medicine 07/15/23 documented as of this encounter
--- OUTSIDE RECORDS SUMMARY | 2023-12-28 01:40 | XMS_ITS | Encounter Summary ---
Author Organization [facility] Address [address] [place] [address] Care Team Providers Care Store Team Member Name Role Phone Keiko Reddy MD Primary Care Provider [phone] Reason for Visit * Reason Comments Elbow Pain Right Encounter Details Date Type Department Care Team (Latest Contact Info) Description 01/06/2011 9:00 EDT Office Visit [facility] Rehabilitation Therapy [address] [address] Nir Garces MD [address] [phone] Injury to radial nerve; Elbow pain, right [...] ELECTRODIAGNOSTIC MEDICINE CONSULTATION SERVICE DATE: 01/06/2011 REQUESTING DEMOCRAT: Keiko Reddy MD. HISTORY: The patient is [...] - ALYSIA Job ID: SM Doc ID: [id number] Ext Doc ID: [id number] cc: MD Keiko Oates MD documented in [...] 06/24/2011 added in this encounter Care Teams Store Team Member Relationship Specialty Start Date End Date Keiko Reddy MD [address] [address] PCP - General 01/05/11 documented as of this encounter
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
--- OUTSIDE RECORDS SUMMARY | 2023-12-28 01:40 | XMS_ITS | Encounter Summary ---
Author Organization [facility] Address [address] [place] [address] Care Team Providers Care Bricklayer Supervisor Name Role Phone Unavailable Primary Care Provider Unavailabl e Encounter Details Date Type Department Care Team (Latest Contact Info) Description 03/24/2010 16:07 EDT - 03/24/2010 16:08 EDT Hospital Encounter [facility] - Other [address] [place] [address] Keiko Reddy MD [address] [place] [address] [address] [place] [address] Discharge Disposition: Home or Self [...]
--- OUTSIDE RECORDS SUMMARY | 2023-12-28 01:40 | XMS_ITS | Encounter Summary ---
Author Organization [facility] [place] [address] Care Team Providers Care Survey Research Professor Name Role Phone Grecia Maddox MD Primary Care Provider [phone] Encounter Details Date Type Department Care Team (Latest Contact Info) Description 04/26/2023 9:24 AM EST - 04/26/2023 11:59 PM [facility] Hospital Encounter [place] [address] Malignant neoplasm of right ovary Discharge Disposition: [...] AM EDT Appointment [place] [address] 01/31/2024 10:20 AM EDT Office Visit [place] [address] Rebecca Small MD [facility] [place] [address] 08/01/2024 11:30 AM EDT Office Visit Dermatology at [address] [place] [place] [address] Phan Egnle MD [facility] [address] [place] [address] documented as of this encounter Procedures Procedure Name Priority Date/Time Associated Diagnosis Comments CANCER ANTIGEN 125 Routine 04/26/2023 9: 34 AM EST Malignant neoplasm of right ovary documented in this encounter Results * Cancer Antigen 125 (04/26/2023 9:34 AM EST) CA 125 9.2 <=38.1 unit/mL [facility] Comment: CA 125 Reference Interval [...] MD CHEMISTRY ORDERABL ES Performing Organization Address City/State/[facility] Co de Phone Number [facility] [place] [address] documented in this encounter Visit Diagnoses Diagnosis Malignant neoplasm of right ovary Malignant neoplasm of ovary documented in this encounter Care Teams Survey Research Professor Relationship Specialty Start Date End Date Grecia Maddox MD [address] [place] [address] PCP - General Family Medicine 05/16/18 07/14/23 documented as of this encounter
--- OUTSIDE RECORDS SUMMARY | 2023-12-28 01:40 | XMS_ITS | Encounter Summary ---
Author Organization [facility] Address [address] [place] [address] Care Team Providers Care Shade Matcher Name Role Phone Keiko Reddy MD Primary Care Provider [phone] Encounter Details Date Type Department Care Team (Late st Contact Info) Description 10/18/2013 Results Only [facility] Laboratory Services - [facility] ([facility]) [address] [place], [place] [phone] Keiko Reddy MD 8 [facility] [address] [place] [address] Social History Tobacco Use Types [...] 10/18/2013 12:2 5 EDT 10/18/2013 19:07 EDT Kekio Reddy MD HEMATOLOGY & PF4 ORD ERABLES [facility] [address] [place] [address] * (ABNORMAL) HEMAGRAM (10/18/2013 12:25 EDT) WBC [...] & PF4 ORD ERABLES Performing Organization Address [facility] Co de Phone Number [facility] [address] [place] [address] * VITAMIN D (25,OH) (10/18/2013 12:25 EDT) 25OH Vitamin D Tot 64.7 ng/ml [facility] Comment: Reference Range: Deficient = <10 ng/ml Insufficient = 10-30 ng/ml Sufficient = 30-100 ng/ml Toxic = >100 ng/ml 10/18/2013 12:2 5 EDT 10/18/2013 19:07 EDT Keiko Reddy MD CHEMISTRY & BLOOD GA S ORDERABLES Performing Organization Address [facility] de Phone Number [facility] [address] [place] [address] * TSH (10/18/2013 12:25 EDT) TSH 1.49 0.35 - 5.00 uIU/ml [facility] 10/18/2013 12:2 5 EDT 10/18/2013 19:07 EDT Keiko Reddy MD CHEMISTRY & BLOOD GA S ORDERABLES Performing Organization Address [facility] Co de Phone Number [facility] [address] [place] [address] * (ABNORMAL) COMPREHENSIVE METABOLIC PANEL (CMP) (10/18/2013 12:25 EDT) Potassium 4.4 3.5 - 5.0 mEq/L [facility] Sodium 141 136 - 145 mEq/L [facility] Chloride 103 96 - 110 mEq/L [facility] CO2 28 24 - 32 mEq/L [facility] Total Alkaline Phosphatase 133(H) 38 - 126 U/L [facility] Bilirubin, Total 0.6 <1.4 mg/dl [facility] AST 61(H) 15 - [...] BLOOD GA S ORDERABLES Performing Organization Address City/[facility] Co de Phone Number [facility] [address] [place] [address] * (ABNORMAL) VITAMIN B12 (10/18/2013 12:25 EDT) Vitamin B-12 1,893(H) 211 - 911 pg/ml [facility] 10/18/2013 12:2 5 EDT 10/18/2013 19:07 EDT Keiko Reddy MD CHEMISTRY & BLOOD GA S ORDERABLES Performing Organization Address City/[facility]/ZIP Co de Phone Number [facility] [address] [place] [address] documented in this encounter Visit Diagnoses Not on filedocumented in this encounter Care Teams Shade Matcher Relationship Specialty Start Date End Date Keiko Reddy MD [address] [phone] PCP - General 01/05/11 documented as of this encounter
--- OUTSIDE RECORDS SUMMARY | 2023-12-28 01:40 | XMS_ITS | Encounter Summary ---
Author Organization [facility] Address [address] [place] [address] Care Team Providers Care Control Room Helper Name Role Phone Keiko Reddy MD Primary Care Provider [phone] Encounter Details Date Type Department Care Team (Latest Contact Info) Description 03/22/2012 15:27 EDT - 03/22/2012 15:28 EDT Hospital Encounter [address] [address] Keiko Reddy MD 8 [facility] [address] [place] [address] Discharge Disposition: Home or Self Care Social [...] on filedocumented in this encounter Care Teams Control Room Helper Relationship Specialty Start Date End Date Keiko Reddy MD [address] [address] PCP - General 01/05/11 documented as of this encounter
--- OUTSIDE RECORDS SUMMARY | 2023-12-28 01:40 | XMS_ITS | Encounter Summary ---
Author Organization [facility] Address [facility] [place] [address] Care Team Providers Care Lead Portfolio Manager Name Role Phone Disha Hayden Primary Care Provider [phone] Reason for Visit * Consultation (Routine) - Authorized Specialty Diagnoses / Procedures Referred By Marie diaz Referred To Contact Dermatology Diagnoses Basal cell carcinoma (BCC), unspecified site Disha Hayden [address] [place] [address] [facility] Dermatology [address] [place] [address] Referral ID Status Reason Start Date Expiration Date Visits Requested Visits Authorized [id number] Authorized Consult, Test & Treat PCP Updated and/or Approved 07/02/2023 07/01/2024 6 6 Encounter Details Date Type Department Care Team (Late st Contact Info) Description 07/15/2023 9:45 AM EST Office Visit Dermatology at [facility] [address] [place] [address] Joshua Quick MD [facility] [place] [address] Neoplasm of unspecified behavior of bone, soft [...] we may discuss your care? [facility] Past Medical History Date, location, treatment Melanoma [...] consent. RTC: Pending pathology []Note routed to physician office secretary []Recall placed in scheduling system []Appointment scheduled at checkout Scribe attestation: Meghan Hankins [facility] has performed the documentation for this encounter in the presence of and acting as a scribe for Joshua Quick MD. I performed the above scribed service and agree with the accuracy of the documentation in this encounter. Reviewed and signed by: Joshua Quick MD Dermatology [facility] documented in this encounter Plan of Treatment Upcoming Encounters Date Type Department Care Team (Late st Contact Info) Description 01/31/2024 9:15 AM EDT Appointment Hematology [place] [address] 01/31/2024 10:20 AM EDT Office Visit [place] [address] Rebecca Small MD [facility] [place] [address] 08/01/2024 11:30 AM EDT Office Visit Dermatology at [address] [address] Phan Engle MD [facility] DR [address] [address] documented as of this encounter Procedures Procedure Name Priority Date/Time Associated Diagnosis Comments SURGICAL PATHOLOGY REPORT Routine 07/15/2023 1:47 PM EST SPECIMEN TO PATHOLOGY Routine 07/15/2023 1:47 PM EST Neoplasm of unspecified behavior of bone, soft tissue, and skin documented in this encounter Results * Surgical Pathology Report (07/15/2023 1:47 PM EST) Final Diagnosis [id number] ? Location: [facility] The signing pathologist has (i) examined the relevant preparation(s) for the specimen(s) and (ii) rendered or confirmed the diagnosis(es). . ?Surgical Pathology DIAGNOSIS L eft felipe, skin shave biopsy: - Mild ??actinic keratosis (see Discussion) Electronically signed by: ?Cash ELLISON, PhD, [facility] Verified: ??07/27/2023 8:04 ?? Dermatopathologist Performed at: ??-[facility] Dept. of Pathology, [place] [address] Safety Administrator: Jenelle Valdes MD, FCAP, ??CLIA Certificate: [id number] DISCUSSION The biopsy shows ??hyperkeratosis, ??mild basal [...] labeled A1. ??SM 07/27/2023 8:04 AM EST [facility] SPECIMEN FROM SKIN / Unknown 07/15/2023 1:47 PM EST 07/15/2023 1:47 PM EST Joshua Quick MD PATHOLOGY/CYTOLOGY O MAGUI Performing Organization Address City/[facility]/ZIP Co de Phone Number [facility] [place] [address] [facility] [place] [address] * Specimen to Pathology (07/15/2023 1:47 PM EST) AP Specimen 07/15/2023 1:47 PM EST 07/15/2023 1:47 PM EST Narrative [facility] - 07/15/2023 1:47 PM EST Specimen requisition ordered. ??Separate Pathology report to follow Joshua Quick MD PATHOLOGY/CYTOLOGY O MAGUI Performing Organization Address [facility] [place] [address] documented in this encounter Visit Diagnoses Diagnosis Neoplasm of unspecified behavior of bone, soft tissue, and skin documented in this encounter Care Teams Lead Portfolio Manager Relationship Specialty Start Date End Date Disha Hayden [address] [place] [address] PCP - General Family Medicine 07/15/23 documented as of this encounter
--- OUTSIDE RECORDS SUMMARY | 2023-12-28 01:40 | XMS_ITS | Encounter Summary ---
Author Organization [facility] Address [facility] [place] [address] Care Team Providers Care Engine Repairer Service Name Role Phone Disha Hayden Primary Care Provider [phone] Reason for Referral * Occupational Therapy (Routine) - Pending Review Specialty Diagnoses / Procedures Referred By Marie diaz Referred To Contact Occupational Therapy Diagnoses Cognitive decline Hx antineoplastic chemo Rebecca Small MD [facility] [place] [address] [facility], [address] [address] Referral ID Status Reason Start Date Expiration Date Visits Requested Visits Authorized [id number] Pending Review Evaluate and Treat 10/29/2023 04/26/2024 12 12 Encounter Details Date Type Department Care Team (Late st Contact Info) Description 10/28/2023 Orders Only [place] [address] Elis Warner, RN Cognitive decline; Endometrial cancer; [...] AM EDT Appointment Hematology [place] [address] 01/31/2024 10:20 AM EDT Office Visit [place] [address] Rebecca Small MD [facility] [place] [address] 08/01/2024 11:30 AM EDT Office Visit Dermatology at [facility] [address] [place] [address] Phan Engle MD [facility] DR J[place] [address] Scheduled Referrals Name Type Priority Associated Diagnoses [...] chemotherapy documented in this encounter Care Teams Engine Repairer Service Relationship Specialty Start Date End Date Disha Hayden [address] [place] [address] PCP - General Family Medicine 07/15/23 documented as of this encounter
--- OUTSIDE RECORDS SUMMARY | 2023-12-28 01:40 | XMS_ITS | Encounter Summary ---
Author Organization [facility] Address [address] [place] [address] Care Team Providers Care Health And Safety Instructor Name Role Phone Unavailable Primary Care Provider Unavailabl e Encounter Details Date Type Department Care Team (Late st Contact Info) Description 03/24/2010 Results Only [facility] Laboratory Services - [facility] ([facility]) [address] [place] [address] Keiko Reddy MD 8 [facility] [address] [place] [address] Social History Tobacco Use Types [...] SUPPORT & PHONE RESULT Performing Organization Address [facility] Phone Number [facility] [address] [place] [address] * HCG (03/24/2010 10:15 EDT) HCG <4 <4 mIU/ml [facility] Comment: Reference Range: Positive = >10 Borderline = 4-10 ??recommend repeat. Negative = <4 03/24/2010 10:1 5 EDT 03/24/2010 14:12 EDT Keiko Reddy MD CHEMISTRY & BLOOD GA S ORDERABLES Performing Organization Address [facility] de Phone Number [facility] [address] [place] [address] * FSH (03/24/2010 10:15 EDT) FSH 41.5 mIU/ml [facility] Comment:Follicular: 2-11 Mid -Cycle Peak: 3.4-35 Luteal: 1-9 Postmenopausal: 25-120 03/24/2010 10:1 5 EDT 03/24/2010 14:12 EDT Keiko Reddy MD CHEMISTRY & BLOOD GA S ORDERABLES Performing Organization Address [facility] de Phone Number [facility] [address] [place] [address] * ESTRADIOL (03/24/2010 10:15 EDT) Estradiol 122 [...] BLOOD GA S ORDERABLES Performing Organization Address City/State/[facility] Co de Phone Number [facility] [address] [place] [address] documented in this encounter Visit Diagnoses Not on filedocumented in this encounter
--- OUTSIDE RECORDS SUMMARY | 2023-12-28 01:40 | XMS_ITS | Encounter Summary ---
Author Organization [facility] Address [address] [place] [address] Care Team Providers Care Registration Clerk Name Role Phone Unavailable Primary Care Provider Unavailabl e Encounter Details Date Type Department Care Team (Late st Contact Info) Description 03/28/2009 Orders Only [facility] Laboratory Services - [facility] ([facility]) [address] [place] [address] Patch, [place], CNM [address] [facility] [address] [place] [address] Social History Tobacco Use Types Packs/Day Years [...] 03/28/2009 22:3 0 EST 04/09/2009 22:30 EST [place] Patch CNM MICROBIOLOGY - GENER AL ORDERABLES [facility] [address] [place] [address] * CYTOPATHOLOGY (03/28/2009 0:00 EST) Pathology Report: CYTOPATHOLOGY REPORT ? Reports generated via electronic interface contain original data; ? however they are lacking the format of the original report. ? Caution should be taken when reading/interpreti ng unformatted reports. ? Name: ? DAPHNE COE ? Accession #: ? [id number] ? : ? 1965 (Age: 43) ??F ?Collect Date: ? 03/28/2009 ? Location: ? [facility] ? Receive Date: ? 04/01/2009 ? Provider: ?TAVON PATCH CNM ? Copy to: ? Specimen/Source: [...] CNM PATHOLOGY ORDERABLES [facility] [address] [place] [address] documented in this encounter Visit Diagnoses Not on filedocumented in this encounter
--- OUTSIDE RECORDS SUMMARY | 2023-12-28 01:40 | XMS_ITS | Encounter Summary ---
Author Organization [facility] [place] [address] Care Team Providers Care Engineering Leader Name Role Phone Grecia Maddox MD Primary Care Provider [phone] Reason for Referral * Consultation (Routine) - Authorized Specialty Diagnoses / Procedures Referred By Marie diaz Referred To Contact Dermatology Diagnoses Basal cell carcinoma (BCC), unspecified site Disha Hayden [address] [place] [address] [facility] Dermatology [address] [place] [address] Referral ID Status Reason Start Date Expiration Date Visits Requested Visits Authorized [id number] Authorized Consult, Test & Treat PCP Updated and/or Approved 07/02/2023 07/01/2024 6 6 Encounter Details Date Type Department Care Team (Latest Contact Info) Description 07/02/2023 Transcribe Orders eDH Incoming Referrals [phone] Disha Hayden [address] [place] [address] Basal cell carcinoma (BCC), unspecified [...] AM EDT Appointment Hematology [place] [address] 01/31/2024 10:20 AM EDT Office Visit [place] [address] Rebecca Small MD [facility] [place] [address] 08/01/2024 11:30 AM EDT Office Visit Dermatology at [address] [place] [address] Phan Engle MD [facility] DR [address] [place] [address] Scheduled Referrals Name Type Priority Associated Diagnoses Orde r Schedule Referral to Dermatology Outpatient Referral Routine Basal cell carcinoma (BCC), unspecified site Ordered: 07/02/2023 documented as of this encounter Visit Diagnoses Diagnosis Basal cell carcinoma (BCC), unspecified site documented in this encounter Care Teams Engineering Leader Relationship Specialty Start Date End Date Grecia Maddox MD [address] [place] [address] PCP - General Family Medicine 05/16/18 07/14/23 documented as of this encounter
--- OUTSIDE RECORDS SUMMARY | 2023-12-28 01:40 | XMS_ITS | Encounter Summary ---
Author Organization [facility] Address [facility] [place] [address] Care Team Providers Care Buffing Machine Operator Semiautomatic Name Role Phone Grecia Maddox MD Primary Care Provider [phone] Encounter Details Date Type Department Care Team [...] AM EDT Appointment Hematology [place] [address] 01/31/2024 10:20 AM EDT Office Visit [place] [address] Rebecca Small MD [facility] [place] [address] 08/01/2024 11:30 AM EDT Office Visit Dermatology at [facility] [address] [place] [address] Phan Engle MD [facility] DR J[address] [place] [address] documented as of this encounter Visit Diagnoses Not on filedocumented in this encounter Care Teams Buffing Machine Operator Semiautomatic Relationship Specialty Start Date End Date Grecia Maddox MD [address] [place] [address] PCP - General Family Medicine 05/16/18 07/14/23 documented as of this encounter
--- OUTSIDE RECORDS SUMMARY | 2023-12-28 01:40 | XMS_ITS | Encounter Summary ---
Author Organization [facility] Address [facility] [place] [address] Care Team Providers Care Hand Laminator Name Role Phone BhavikomayrajuanNelia Disha Primary Care Provider [phone] Reason for Referral * Speech Therapy (Routine) - Authorized Specialty Diagnoses / Procedures Referred By Marie diaz Referred To Contact Speech Pathology / Speech Therapy Diagnoses Cognitive decline Hx antineoplastic chemo Rebecca Small MD [facility] [place] [address] [address] Referral ID Status Reason Start Date Expiration Date Visits Requested Visits Authorized [id number] Authorized Evaluate and Treat 10/27/2023 04/24/2024 12 12 Encounter Details Date Type Department Care Team (Late st Contact Info) Description 10/26/2023 Orders Only Gy[place] [address] Noy Naylor, RN Cognitive decline; Hx antineoplastic [...] AM EDT Appointment Hematology [place] [address] 01/31/2024 10:20 AM EDT Office Visit [place] [address] Rebecca Small MD [facility] [place] [address] 08/01/2024 11:30 AM EDT Office Visit Dermatology at [place] [address] [place] [address] Phan Engle MD [facility] [address] [place] [address] Scheduled Referrals Name Type Priority Associated Diagnoses Orde r Schedule Referral to Speech Therapy Outpatient Referral Routine Cognitive decline Hx antineoplastic chemo Ordered: 10/27/2023 documented as of this encounter Visit Diagnoses Diagnosis Cognitive decline Unspecified persistent mental disorders due to conditions classified elsewhere Hx antineoplastic chemo Personal history of antineoplastic chemotherapy documented in this encounter Care Teams Hand Laminator Relationship Specialty Start Date End Date Disha Hayden [address] [place] [address] PCP - General Family Medicine 07/15/23 documented as of this encounter
--- OUTSIDE RECORDS SUMMARY | 2023-12-28 01:40 | XMS_ITS | Encounter Summary ---
Author Organization [facility] Address [address] [place] [address] Care Team Providers Care Signal Wirer Name Role Phone Keiko Reddy MD Primary Care Provider [phone] Encounter Details Date Type Department Care Team (Latest Contact Info) Description 02/24/2012 13:56 EDT - 02/24/2012 13:57 EDT Hospital Encounter [address] [address] Keiko Reddy MD [facility] [address] [place] [phone] Discharge Disposition: Home or Self Care Social [...] on filedocumented in this encounter Care Teams Signal Wirer Relationship Specialty Start Date End Date Keiko Reddy MD [address] [facility] [address] [place] [address] PCP - General 01/05/11 documented as of this encounter
--- OUTSIDE RECORDS SUMMARY | 2023-12-28 01:40 | XMS_ITS | Encounter Summary ---
Author Organization [facility] Address [facility] [place] [address] Care Team Providers Care Extractor Puller Name Role Phone ScottyNelia Disha Primary Care [...] AM EDT Appointment Hematology [place] [address] 01/31/2024 10:20 AM EDT Office Visit Gy[place] [address] Rebecca Small MD [facility] [place] [address] 08/01/2024 11:30 AM EDT Office Visit Dermatology at [facility] [address] [place] [address] Phan Engle MD [facility] [address] [address] documented as of this encounter Visit Diagnoses Not on filedocumented in this encounter Care Teams Extractor Puller Relationship Specialty Start Date End Date Disha Hayden [address] [place] [address] PCP - General Family Medicine 07/15/23 documented as of this encounter
--- OUTSIDE RECORDS SUMMARY | 2023-12-28 01:40 | XMS_ITS | Clinical Summary ---
Author Organization [facility] Address [facility] [place] [address] Care Team Providers Care Slasher Name Role Phone Disha Hayden Primary Care Provider Allergies Active Allergy Reactions [...] Encounters Date Type Department Care Team Description 11/17/2023 12:05 AM EDT Ancillary Procedure [place] [address] Catracho, Disha 11/17/2023 Ancillary Procedure [place] [address] Catracho, Disha 11/12/2023 Ancillary [place] [address] Catracho, Disha 10/28/2023 Orders Only [place] [address] Elis Warner, RN Cognitive decline; Endometrial cancer; Hx antineoplastic chemo 10/26/2023 Orders [place] [address] Noy Naylor RN Cognitive decline; Hx antineoplastic chemo 10/25/2023 10:20 AM EDT Office Visit [place] [address] Rebecca Small MD Malignant neoplasm of right ovary 10/25/2023 9:15 AM EDT - 10/25/2023 11:59 PM EDT Hospital Encounter [place]ology [place] [address] Malignant neoplasm of ovary, unspecified laterality Discharge Disposition: Home 10/25/2023 Travel 10/21/2023 Orders Only [place] [address] Elis Warner, RN Endometrial cancer; Malignant neoplasm of ovary, unspecified laterality 09/28/2023 10:15 AM EDT Office Visit Dermatology at [facility] [address] [place] [address] Phan Engle MD [place] (actinic keratosis) 09/28/2023 Travel from Last 3 Months Family History Medical History Relation Comments Cancer Mother Relation Status Comments Mother Social History Tobacco Use Types Packs/Day Years Used Date Smoking Tobacco: Former Cigarettes Q uit: 1999 Smokeless Tobacco: Never Tobacco Cessation:Counseling Given: Not [...] AM EDT Appointment [place]ology [place] [address] 01/31/2024 10:20 AM EDT Office Visit [place] [address] [facility] [place] [address] 08/01/2024 11:30 AM EDT Office Visit Dermatology at [facility] [address] [place] [address] [facility] DR JESS [place] [address] Health Maintenance Due Date Last Done Comments [...] 06/25/2017, 06/25/2017 Medical Devices Implanted Type Area Legal Document Specialist Device Identifier Shelf Expiration Date Model / Serial / Lot Screw,Clara,Ang ,Lck,3.5x65mm ([id number]) - [id number] Implanted:Qty : 3 on 12/14/2017 by Reinaldo Romero MD at [facility] IMPLANTS Right: Tibia [employer] - DEPUY SYNT 02.127.165 / / Bone,Crushed, Cancellous,30 cc ([id number]) (Autoreq) - [id number] Implanted:Qty : 1 on 12/14/2017 by Reinaldo Romero MD at [facility] IMPLANTS Right: Tibia [facility] [employer]ET 09/16/2022 PCAN30 / / [id number] Plate,Vlrdstl ,Lcp,6h,Rt,2. 4mm ([id number]) - [id number] Implanted:Qty : 1 on 12/14/2017 by Reinaldo Romero MD at [facility] IMPLANTS Right: Wrist [employer] - DEPUY SYNT 02.111.630 / / Screw,Va,Lck, Star,2.4x20mm ([id number]) - [id number] Implanted:Qty : 3 on 12/14/2017 by Reinaldo Romero MD at [facility] IMPLANTS Right: Wrist [employer] - DEPUY SYNT 02.210.120 / / Screw,Va,Lck, Star,2.4x14mm (9109090) - [id number] Implanted:Qty : 1 on 12/14/2017 by Reinaldo Romero MD at [facility] IMPLANTS Right: Wrist [employer] - DEPUY SYNT 02.210.114 / / Screw,Va,Lck, Star,2.4x18mm (6749849) - [id number] Implanted:Qty : 1 on 12/14/2017 by Reinaldo Romero MD at [facility] IMPLANTS Right: Wrist [employer] - DEPUY SYNT 02.210.118 / / Screw,Crtx,St ap,Star,2.7x1 2mm (2642225) - [id number] Implanted:Qty : 3 on 12/14/2017 by Reinaldo Romero MD at [facility] IMPLANTS Right: Wrist [employer] - DEPUY SYNT 202.872 / / Plate,Va-Lcp, Tib,4h,Rt,87m m (2357767) - [id number] Implanted:Qty : 1 on 12/14/2017 by Reinaldo Romero MD at [facility] IMPLANTS Right: Tibia [employer] - DEPUY SYNT 02.127.210 / / Screw,Crtx,St ap,3.5x40mm (6602086) - [id number] Implanted:Qty : 1 on 12/14/2017 by Reinaldo Romero MD at [facility] IMPLANTS Right: Tibia [employer] - DEPUY SYNT 204.840 / / Screw,Clara,Ang ,Lck,3.5x32mm (2792077) - [id number] Implanted:Qty : 1 on 12/14/2017 by Reinaldo Romero MD at [facility] IMPLANTS Right: Tibia [employer] - DEPUY SYNT 02.127.132 / / Screw,Clara,Ang ,Lck,3.5x46mm ([id number]) - [id number] Implanted:Qty : 1 on 12/14/2017 by Reinaldo Romero MD at [facility] IMPLANTS Right: Tibia [employer] - DEPUY SYNT 02.127.146 / / Screw,Clara,Ang ,Lck,3.5x50mm ([id number]) - [id number] Implanted:Qty : 1 on 12/14/2017 by Reinaldo Romero MD at [facility] IMPLANTS Right: Tibia [employer] - DEPUY SYNT 02.127.150 / / Screw,Clara,Ang ,Lck,3.5x56mm (6011624) - [id number] Implanted:Qty : 1 on 12/14/2017 by Reinaldo Romero MD at [facility] IMPLANTS Right: Tibia [employer] - DEPUY SYNT 02.127.156 / / Screw,Clara,Ang ,Lck,3.5x60mm (6150098) - [id number] Implanted:Qty : 1 on 12/14/2017 by Reinaldo Romero MD at [facility] IMPLANTS Right: Tibia [employer] - DEPUY SYNT 02.127.160 / / Screw,Cncl,St ap,P-T,3.5x70 mm ([id number]) - [id number] Implanted:Qty : 1 on 12/14/2017 by Reinaldo Romero MD at [facility] IMPLANTS Right: Tibia [employer] - DEPUY SYNT 212.426 / / Screw,Crtx,St ap,2.7x32mm ([id number]) - [id number] Implanted:Qty : 1 on 12/20/2017 by Tete Talamantes MD at [facility] IMPLANTS Left: Hip Qwilt - RONALD RODNEY 202.832 / / Screw,Crtx,St ap,2.7x26mm (4709433) - [id number] Implanted:Qty : 1 on 12/20/2017 by Tete Talamantes MD at [facility] IMPLANTS Left: Hip RONALD [employer] - RONALD RODNEY 202.826 / / Plate,Recon.8 h,3.5x94mm (2657920) - [id number] Implanted:Qty : 1 on 12/20/2017 by Tete Talamantse MD at [facility] IMPLANTS Left: Hip [facility] - RONALD RODNEY 245.18 / / Screw,Crtx,St ap,3.5x34mm (1534241) - [id number] Implanted:Qty : 3 on 12/20/2017 by Tete Talamantes MD at [facility] IMPLANTS Left: Hip [facility] - RONALD RODNEY 204.834 / / Screw,Crtx,St ap,3.5x36mm (4654989) - [id number] Implanted:Qty : 1 on 12/20/2017 by Tete Talamantes MD at [facility] IMPLANTS Left: Hip [facility] - RONALD RODNEY 204.836 / / Screw,Crtx,St ap,3.5x40mm (1103087) - [id number] Implanted:Qty : 1 on 12/20/2017 by Tete Talamantes MD at [facility] IMPLANTS Left: Hip RONALD & [facility]ON[facility]D [facility] - RONALD RODNEY 204.840 / / Screw,Crtx,St ap,3.5x28mm ([id number]) - [id number] Implanted:Qty : 1 on 12/20/2017 by Tete Talamantes MD at [facility] IMPLANTS Left: Hip RONALD & [facility]ON[facility] - RONALD RODNEY 204.828 / / Explanted Type Area Legal Document Specialist Device Identifier Shelf Expiration Date Model / Serial / Lot Plate,Rdctn,W irthrd Tip,1.25mm ([id number]) - [id number] Explanted:Qty : 3 on 12/14/2017 by Reinaldo Romero MD at [facility] IMPLANTS Right: Wrist [employer] - DEPUY SYNT 02.111.501 .10 / / Wire,K,Thrdd Gwre,1.4l035i m (4687736) - [id number] Explanted:Qty : 1 on 12/20/2017 by Tete Talamantes MD at [facility] IMPLANTS Left: Hip RONALD & [facility]ON[facility]D [facility] - RONALD RODNEY 292.71 / / Screw,Crtx,St ap,2.7x28mm (5943664) - [id number] Implanted:Qty : 1 Explanted:Qty : 1 on 12/20/2017 at [facility] IMPLANTS Left: Hip [facility] - RONALD RODNEY 202.828 / / Pin,Davidson William 1 Ed,Ns,5m620pg (1512466) - [id number] Explanted:Qty : 2 on 12/20/2017 at [facility] IMPLANTS Left: Hip [facility] - RONALD RODNEY 292.20 / / Screw,Crtx,St ap,3.5x75mm (7525082) - [id number] Explanted:Qty : 1 on 12/20/2017 at [facility] IMPLANTS Left: Hip [facility] - RONALD RODNEY 204.875 / / Screw,Crtx,St ap,3.5x38mm (1037529) - [id number] Explanted:Qty : 1 on 12/20/2017 at [facility] IMPLANTS Left: Hip [facility] - RONALD RODNEY 204.838 / / Screw,Crtx,St ap,2.7x28mm ([id number]) - [id number] Explanted:Qty : 1 on 12/20/2017 at [facility] IMPLANTS Left: Hip [facility] - RONALD RODNEY 202.828 / / Procedures Procedure Name Priority Date/Time Associated Diagnosis Comments FILM LIBRARY STORAGE ONLY MAMMO Routine 11/17/2023 12:05 AM EDT FILM LIBRARY-STORAGE ONLY US BREAST Routine 11/17/2023 12:00 AM EDT FILM LIBRARY STORAGE ONLY MAMMO Routine 11/12/2023 12:00 AM EDT CANCER ANTIGEN 125 Routine 10/25/2023 9: 35 AM EDT Malignant neoplasm of ovary, unspecified laterality COMPREHENSIVE METABOLIC PANEL Routine 03/19/2022 10:57 AM EDT Pelvic mass in female COLONOSCOPY Routine 06/25/2017 12:40 PM EST from Last 3 Months or Most Recently Relevant to Health Maintenance Results * Film Library- Storage Only Mammo (11/17/2023 12:05 AM EDT) Only the most recent of2 resultswithin the time period is included. Narrative [facility] - 12/17/2023 9:59 AM EDT This exam is auto-finalizing. It's purpose is for storage only. Disha Gutierresapace-Juancarlos IMG FILM LIBRARY OR DERABLES Performing Organization Address [facility] de Phone Number [place], [place] * Film Library Storage Only US Breast (11/17/2023 12:00 AM EDT) Narrative [facility] 12/17/2023 9:59 AM EDT This exam is auto-finalizing. It's purpose is for storage only. Disha Gutierresapace-Juancarlos IMG FILM LIBRARY OR DERABLES Performing Organization Address [facility] de Phone Number [place], [place] * Cancer Antigen 125 (10/25/2023 9:35 AM [...] MD CHEMISTRY ORDERABL ES Performing Organization Address [facility] Co de Phone Number [facility] [place] [address] * (ABNORMAL) Comprehensive metabolic panel (non-fasting) (03/19/2022 10:57 AM EDT) Glucose 91 65 - 199 mg/dL [facility] Comment:Diabetes: >=200 mg/d L plus symptoms Blood Urea Nitrogen 11 8 - 18 mg/dL [facility] Creatinine 0.92 0.70 - 1.20 mg/dL [facility] Sodium 144 135 - 145 mmol/L [facility] Potassium 4.6 3.5 - 5.0 mmol/L [facility] Comment: Please note: ??Patients with WBC >100,000 may have falsely elevated Potassium levels. ??For accurate Potassium quantification in these patients send serum separator tube (gold top) for subsequent determinations. ??Contact the Clinical Chemistry Laboratory if there are any questions. Chloride 108(H) 98 - 107 mmol/L [facility] Carbon Dioxide 26 22 - 31 mmol/L [facility] Anion Gap 10 5 - 15 mmol/L [facility] Calcium 9.6 8.5 - 10.5 mg/dL [facility] Protein, Total 7.1 6.1 - 8.0 g/dL [facility] Albumin 4.6 3.2 - 5.2 g/dL [facility] Aspartate Aminotransferase 19 0 - 30 unit/L [facility] Alanine Aminotransferase 10 0 - 30 unit/L [facility] Alkaline Phosphatase 68 35 - 105 unit/L [facility] Bilirubin, Total 0.3 0.2 - 1.3 mg/dL [facility] Est Glomerular Filtration Rate 73 >=60 mL/min/1. 73 m?? [facility] Comment: This patient's estimated GFR [...] Lab Rebecca Small MD CHEMISTRY ORDERABL ES [facility] [place] [address] * COLONOSCOPY (06/25/2017 12:40 PM EST) COLONOSCOPY [facility] Endoscopy Procedure Date: 06/25/2017 12:40 PM ? Patient Name: Daphne Pickard ? N: [id number] ? Date of : 1965 ? Age: 51 ? Order #: [id number] ? Instrument Name: [id number] ? Procedure: ? Colonoscopy Indications: ? Screening for colorectal malignant ? neoplasm Providers: ? Kimani Rojas MD, Rajinder Menjivar ? Tor Hernandez, Salt Washer Referring MD: ?Javier Green MD Medicines: ? [...] preparation was evaluated using ? the BBPS ([place] Bowel Preparation ? Scale) with scores of: [...] capacity to make decision: Yes Care Teams Slasher Relationship Specialty Start Date End Date Disha Hayden [address] [place] [address] PCP - General Family Medicine 07/15/23
--- OUTSIDE RECORDS SUMMARY | 2023-12-28 01:40 | XMS_ITS | Encounter Summary ---
Author Organization [facility] [place] [address] Care Team Providers Care Compliance Field Technician Name Role Phone ScottyNeliaDisha Primary Care Provider Encounter Details Date Type Department Care Team (Late st Contact Info) Description 07/26/2023 Orders Only [place] [address] Rebecca Small MD [facility] DR [place]EC[place] [address] Malignant neoplasm of ovary, unspecified laterality (Primary [...] AM EDT Appointment Hematology [place] [address] 01/31/2024 10:20 AM EDT Office Visit [place] [address] Rebecca Small MD [facility] [place] [address] 08/01/2024 11:30 AM EDT Office Visit Dermatology at [facility] [address] [place] [address] Phan Engle MD [facility] [place] [address] documented as of this encounter Results * Carbohydrate Antigen 19-9 (07/26/2023 9:02 AM EST) CA 19-9 5.8 <=35.0 u/ml [facility] Comment: This result was generated using a Tammy Marcos immunoassay. ??Results obtained from other methods or manufacturers cannot be used interchangeably with this method. Blood 07/26/2023 9:02 AM EST 07/26/2023 9:07 AM EST Narrative Resulting Agency Comment Spec In Lab Rebecca Small MD CHEMISTRY ORDERABL ES [facility] [place] [address] * Cancer Antigen 125 (07/26/2023 9:02 AM EST) CA 125 8.4 <=38.1 unit/mL [facility] Comment: CA 125 Reference Interval [...] MD CHEMISTRY ORDERABL ES Performing Organization Address City/State/[facility] Co de Phone Number [facility] [place] [address] documented in this encounter Visit Diagnoses Diagnosis Malignant neoplasm of ovary, unspecified laterality- Primary documented in this encounter Care Teams Compliance Field Technician Relationship Specialty Start Date End Date Disha Hayden [address] [place] [address] PCP - General Family Medicine 07/15/23 documented as of this encounter
--- OUTSIDE RECORDS SUMMARY | 2023-12-28 01:40 | XMS_ITS | Encounter Summary ---
Author Organization [facility] [place] [address] Care Team Providers Care Machine Dyer Name Role Phone Grecia Maddox MD Primary Care Provider [phone] Reason for Referral * Physical Therapy (Routine) - Closed Specialty Diagnoses / Procedures Referred By Contyoav diaz Referred To Contact Physical Therapy Diagnoses Endometrial cancer Dyspareunia, female Rebecca Small MD [facility] [place] [address] Physical Therapy, [address] [address] Referral ID Status Reason Start Date Expiration Date V isits Requested Visits Authorized [id number] Closed Evaluate and Treat 04/26/2023 10/23/2023 12 12 Encounter Details Date Type Department Care Team ([facility] st Contact Info) Description 04/26/2023 Orders Only [place] [address] Elis Warner, RN Endometrial cancer; Dyspareunia, female [...] Hematology [place] [address] 01/31/2024 10:20 AM EDT Office Visit [place] [address] Rebecca Small MD [facility] [place] [address] 08/01/2024 11:30 AM EDT Office Visit Dermatology at [place] [address] [place] [address] Phan Engle MD [facility] [address] [place] [address] Scheduled Referrals Name Type Priority Associated Diagnoses Orde r Schedule Referral to Physical Therapy Outpatient Referral Routine Endometrial cancer Dyspareunia, female Ordered: 04/26/2023 documented as of this encounter Visit Diagnoses Diagnosis Endometrial cancer Malignant neoplasm of corpus uteri, except isthmus Dyspareunia, female Dyspareunia documented in this encounter Care Teams Machine Dyer Relationship Specialty Start Date End Date Grecia Maddox MD [address] [place] [address] PCP - General Family Medicine 05/16/18 07/14/23 documented as of this encounter
--- OUTSIDE RECORDS SUMMARY | 2023-12-28 01:40 | XMS_ITS | Encounter Summary ---
Author Organization [facility] [address] Care Team Providers Care Customer Support Specialist Name Role Phone ScottyNelia Disha Primary Care Provider [phone] Reason for Visit * Reason Comments Follow-up 3 Month follow up Encounter Details Date Type Department Care Team (Late st Contact Info) Description 07/26/2023 10:00 AM EST Office Visit [place] [address] Danita Martinez MD [facility] [place] [address] Malignant neoplasm of right ovary Social History [...] 10:00 AM EST Division of [place] [address] Surveillance Visit: Patient Active Problem List Diagnosis [...] AM EDT Appointment Hematology [place] [address] 01/31/2024 10:20 AM EDT Office Visit [place] [address] Danita Martinez MD [facility] [place] [address] 08/01/2024 11:30 AM EDT Office Visit Dermatology at [facility] [address] [place] [address] Phan Engle MD [facility] [place] [address] documented as of this encounter Visit Diagnoses Diagnosis Malignant neoplasm of right ovary Malignant neoplasm of ovary documented in this encounter Care Teams Customer Support Specialist Relationship Specialty Start Date End Date Disha Hayden [address] [place] [address] PCP - General Family Medicine 07/15/23 documented as of this encounter
--- OUTSIDE RECORDS SUMMARY | 2023-12-28 01:40 | XMS_ITS | Encounter Summary ---
Author Organization [facility] Address [facility] [place] [address] Care Team Providers Care Virtualization Architect Name Role Phone ScottyNelia Disha Primary Care [...] AM EDT Appointment Hematology [place] [address] 01/31/2024 10:20 AM EDT Office Visit [place] [address] Rebecca Small MD [facility] [place] [address] 08/01/2024 11:30 AM EDT Office Visit Dermatology at [facility] [address] [place] [address] Phan Engle MD [facility] [address] [place] [address] documented as of this encounter Visit Diagnoses Not on filedocumented in this encounter Care Teams Virtualization Architect Relationship Specialty Start Date End Date Disha Hayden [address] [place] [address] PCP - General Family Medicine 07/15/23 documented as of this encounter
--- OUTSIDE RECORDS SUMMARY | 2023-12-28 01:40 | XMS_ITS | Encounter Summary ---
Author Organization [facility] Address [address] [place] [address] Care Team Providers Care Arch Cushion Press Operator Name Role Phone Keiko Reddy MD Primary Care Provider [phone] Encounter Details Date Type Department Care Team (Late st Contact Info) Description 06/30/2011 Abstract [facility] Hand & Upper Extremity Program - [address] [address] Chay Garcia MD [address] [place] [address] Social History Tobacco Use Types [...] Date End Date Keiko Reddy MD [address] [address] PCP - General 01/05/11 documented as of this encounter
--- OUTSIDE RECORDS SUMMARY | 2023-12-28 01:40 | XMS_ITS | Encounter Summary ---
Author Organization [facility] Address [facility] [place] [address] Care Team Providers Care Software Asset Management Analyst Name Role Phone Disha Hayden Primary Care Provider Encounter Details Date Type Department Care Team (Latest Contact Info) Description 10/25/2023 9:15 AM EDT - 10/25/2023 11:59 PM EDT Hospital Encounter [place] [address] Malignant neoplasm of ovary, unspecified laterality Discharge [...] AM EDT Appointment [place] [address] 01/31/2024 10:20 AM EDT Office [place] [address] Rebecca Small MD [facility] [place] [address] 08/01/2024 11:30 AM EDT Office Visit Dermatology at [facility] [address] [place] [address] Phan Engle MD [facility] DR JESS [place] [address] documented as of this encounter Procedures Procedure Name Priority Date/Time Associated Diagnosis Comments CANCER ANTIGEN 125 Routine 10/25/2023 9: 35 AM EDT Malignant neoplasm of ovary, unspecified laterality documented in this encounter Results * Cancer Antigen 125 (10/25/2023 9:35 AM EDT) CA 125 9.5 <=38.1 unit/mL [facility] Comment: CA 125 Reference Interval [...] Lab Rebecca Small MD CHEMISTRY ORDERABL ES [facility] [place] [address] documented in this encounter Visit Diagnoses Diagnosis Malignant neoplasm of ovary, unspecified laterality documented in this encounter Care Teams Software Asset Management Analyst Relationship Specialty Start Date End Date Disha Hayden [address] [place] [address] PCP - General Family Medicine 07/15/23 documented as of this encounter
--- OUTSIDE RECORDS SUMMARY | 2023-12-28 01:40 | XMS_ITS | Encounter Summary ---
Author Organization [facility] [place] [address] Care Team Providers Care Investment Officer Name Role Phone Disha Hayden Primary Care Provider Encounter Details Date Type Department Care Team (Late st Contact Info) Description 11/17/2023 Ancillary Procedure [place] [address] Disha Hayden [address] [place] [address] Social History Tobacco Use Types [...] Hematology [place] [address] 01/31/2024 10:20 AM EDT Office Visit [place] [address] Rebecca Small MD [facility] [address] 08/01/2024 11:30 AM EDT Office Visit Dermatology at [facility] [address] [place] [address] Phan Engle MD [facility] [place] [address] documented as of this encounter Procedures Procedure Name Priority Date/Time Associated Diagnosis Comments FILM LIBRARY-STORAGE ONLY US BREAST Routine 11/17/2023 12:00 AM EDT documented in this encounter Results * Film Library Storage Only US Breast (11/17/2023 12:00 AM EDT) Narrative [facility] - 12/17/2023 9:59 AM EDT This exam is auto-finalizing. It's purpose is for storage only. Disha Hayden [facility] FILM LIBRARY OR DERABLES [place], [place] documented in this encounter Visit Diagnoses Not on filedocumented in this encounter Care Teams Investment Officer Relationship Specialty Start Date End Date Disha Hayden [address] [place] [address] PCP - General Family Medicine 07/15/23 documented as of this encounter
--- OUTSIDE RECORDS SUMMARY | 2023-12-28 01:40 | XMS_ITS | Encounter Summary ---
Author Organization [facility] Address [facility] [place] [address] Care Team Providers Care Street Cleaning Equipment Operator Name Role Phone ScottyNeliaDisha Primary Care Provider Encounter Details Date Type Department Care Team (Late st Contact Info) Description 09/28/2023 10:15 AM EDT Office Visit Dermatology at [facility] [address] [place] [address] Phan Coon MD [facility] [address] [place] (actinic keratosis) Social History Tobacco Use [...] we may discuss your care? Jignesh Mckinnon ([facility]) Past Medical History Date, location, treatment [...] FBS2023 hx of BCC [x]Note routed to medical receptionist assistant []Recall placed in scheduling system []Appointment scheduled at checkout Scribe attestation: Mili Joseph CMA has performed the documentation for this encounter in the presence of and acting as a scribe for PHAN COON MD. I performed the above scribed service and agree with the accuracy of the documentation in this encounter. Reviewed and signed by: PHAN COON MD Dermatology [facility] documented in this encounter Plan of Treatment Upcoming Encounters Date Type Department Care Team (Late st Contact Info) Description 01/31/2024 9:15 AM EDT Appointment [place] [address] 01/31/2024 10:20 AM EDT Office [place] [address] Rebecca Small MD [facility] DR GYNECOLOGIC [place] [address] 08/01/2024 11:30 AM EDT Office Visit Dermatology at [place] [address] [place] [address] Phan Coon MD [facility] DR JESS HERNANDEZ[place] [address] documented as of this encounter Visit Diagnoses Diagnosis [place] (actinic keratosis) Actinic keratosis documented in this encounter Care Teams Street Cleaning Equipment Operator Relationship Specialty Start Date End Date Disha aHyden [address] [place] [address] PCP - General Family Medicine 07/15/23 documented as of this encounter
--- OUTSIDE RECORDS SUMMARY | 2023-12-28 01:40 | XMS_ITS | Encounter Summary ---
Author Organization [facility] Address [facility] [place] [address] Care Team Providers Care Automotive Electrician Helper Name Role Phone ScottyNelia Disha Primary Care [...] AM EDT Appointment Hematology [place] [address] 01/31/2024 10:20 AM EDT Office Visit [place] [address] Rebecca Small MD [facility] [place] [address] 08/01/2024 11:30 AM EDT Office Visit Dermatology at [facility] [address] [place] [address] Phan Engle MD [facility] DR JESS [place] [address] documented as of this encounter Visit Diagnoses Not on filedocumented in this encounter Care Teams Automotive Electrician Helper Relationship Specialty Start Date End Date Disha Hayden [address] [place] [address] PCP - General Family Medicine 07/15/23 documented as of this encounter
--- OUTSIDE RECORDS SUMMARY | 2023-12-28 01:40 | XMS_ITS | Encounter Summary ---
Author Organization Health system Address [address] [place] [address] Care Team Providers Care Housekeeping Staff Name Role Phone Unknown, Provider Primary Care Provider [phone] Reason for Visit * Reason Onset Date Comments Other 12/30/2010 referral Encounter Details Date Type Department Care Team (Late st Contact Info) Description 12/30/2010 Telephone [facility] Rehabilitation Therapy - [address] [address] Sorin Mast, RN Other (referral) Social History Tobacco Use Types Packs/Day Years Used Date Smoking Tobacco: Never Assessed Sex and Gender Information Value Date Recorded Sex Assigned at Not on file Gender Identity Not on file Sexual Orientation Not on file documented as of this encounter Miscellaneous Notes * Telephone Encounter - Salima Mast, [place] - 12/30/2010 2437 EDT Received faxed referral for EMG for Daphne from Dr Reddy and referral indicated that this is a workers comp case. TC to Daphne ([phone]) to get information and [phone][facility] to obtain this information. I spoke withJudy who stated she would follow up and get back to me. Kaley, from the insurance carrier, calledme and provided me with the following information: [facility] [address] [place], [address] Case # [id number] track service person: Kaley Roche stated that a determination [...] asked if she would call preregistration at [facility] to update her information including this WC case and Daphne stated that she would do that at the time that anappointment was made. documented in this encounter Plan of Treatment Not on file documented as of this encounter Visit Diagnoses Not on filedocumented in this encounter Care Teams Housekeeping Staff Relationship Specialty Start Date End Date Unknown, Provider, PCP - General 04/14/10 01/04/11 documented as of this encounter
--- OUTSIDE RECORDS SUMMARY | 2023-12-28 01:40 | XMS_ITS | Encounter Summary ---
Author Organization [facility] Address [address] [place] [address] Care Team Providers Care Logging Engineer Name Role Phone Unknown, Provider Primary Care Provider [phone] Encounter Details Date Type Department Care Team (Late st Contact Info) Description 06/23/2010 Results Only [facility] Laboratory Services - [facility] [address] [place], [place] [id number] Any Reddy MD [address] [place] [address] [address] [place] [address] Social History Tobacco Use Types [...] Result No Chlamydia trachomatis DNA detected by anchor operator mediated amplification. [facility] GC Result No Neisseria gonorrhoeae DNA detected by anchor operator mediated amplification. [facility] 06/23/2010 14:4 4 EST 06/23/2010 14:44 EST Any Reddy MD MICROBIOLOGY - GENER AL ORDERABLES [facility] [address] [address] * CYTOPATHOLOGY (06/23/2010 0:00 EST) Pathology Report: CYTOPATHOLOGY REPORT ? Reports generated via electronic interface contain original data; ? however they are lacking the format of the original report. ? Caution should be taken when reading/interpreti ng unformatted reports. ? Name: ? DAPHNE COE ? Accession #: ? [id number] ? : ? 1965 (Age: 44) ??F [...] Reddy MD PATHOLOGY ORDERABLES Performing Organization Address City/State/[facility] Co de Phone Number [facility] [address] [place] [address] documented in this encounter Visit Diagnoses Not on filedocumented in this encounter Care Teams Logging Engineer Relationship Specialty Start Date End Date Unknown, Provider, PCP - General 04/14/10 01/04/11 documented as of this encounter
--- OUTSIDE RECORDS SUMMARY | 2023-12-28 01:40 | XMS_ITS | Encounter Summary ---
Author Organization [facility] Address [facility] [place] [address] Care Team Providers Care Welfare Administrator Name Role Phone Grecia Maddox MD Primary Care Provider [phone] Reason for Visit * Reason Comments Establish Care 3 mth ck Encounter Details Date Type Department Care Team (Late st Contact Info) Description 04/26/2023 11:00 AM EST Office Visit [place] [address] Danita Martinez MD [facility] [place] [address] Malignant neoplasm of right ovary Social History [...] 11:00 AM EST Division [place] [address] Surveillance Visit: Patient Active Problem List Diagnosis [...] AM EDT Appointment Hematology [place] [address] 01/31/2024 10:20 AM EDT Office Visit [place] [address] Danita Martinez MD [facility] [place] [address] 08/01/2024 11:30 AM EDT Office Visit Dermatology at [place] [address] [place] [address] Phan Engle MD [facility] DR J[place] [address] documented as of this encounter Visit Diagnoses Diagnosis Malignant neoplasm of right ovary Malignant neoplasm of ovary documented in this encounter Care Teams Welfare Administrator Relationship Specialty Start Date End Date Grecia Maddox MD [address] [place] [address] PCP - General Family Medicine 05/16/18 07/14/23 documented as of this encounter
--- OUTSIDE RECORDS SUMMARY | 2023-12-28 01:40 | XMS_ITS | Encounter Summary ---
Author Organization [facility] Address [address] [place] [address] Care Team Providers Care Finance And Administration Manager Name Role Phone Keiko Reddy MD Primary Care Provider Encounter Details Date Type Department Care Team (Late st Contact Info) Description 03/18/2012 Results Only Imaging [facility]- [facility] [phone] Keiko Reddy MD 8 [facility] [address] [place] [address] Social History Tobacco Use Types [...] on filedocumented in this encounter Care Teams Finance And Administration Manager Relationship Specialty Start Date End Date Keiko Reddy MD [address] [place] [address] PCP - General 01/05/11 documented as of this encounter
--- OUTSIDE RECORDS SUMMARY | 2023-12-28 01:40 | XMS_ITS | Encounter Summary ---
Author Organization [facility] [place] [address] Care Team Providers Care Chief Architect Name Role Phone MoyjuanDisha Pickens Primary Care Provider Encounter Details Date Type Department Care Team (Latest Contact Info) Description 07/26/2023 8:52 AM EST - 07/26/2023 11:59 PM EST Hospital Encounter Hematology [place] [address] Malignant neoplasm of ovary, unspecified laterality Discharge [...] Appointment Hemat[place] [address] 01/31/2024 10:20 AM EDT Office Visit [place] [address] Rebecca Small MD [facility] [place] [address] 08/01/2024 11:30 AM EDT Office Visit Dermatology at [address] [address] Phan Engle MD [facility] DR [place] [address] documented as of this encounter Procedures Procedure Name Priority Date/Time Associated Diagnosis Comments CARBOHYDRATE ANTIGEN 19-9 Routine 07/26/2023 9:02 AM EST Malignant neoplasm of ovary, unspecified laterality CANCER ANTIGEN 125 Routine 07/26/2023 9: 02 AM EST Malignant neoplasm of ovary, unspecified laterality documented in this encounter Results * Cancer Antigen 125 (07/26/2023 9:02 AM EST) CA 125 8.4 <=38.1 unit/mL [facility] Comment: CA 125 Reference Interval [...] MD CHEMISTRY ORDERABL ES Performing Organization Address [facility] Co de Phone Number [facility] [place] [address] * Carbohydrate Antigen 19-9 (07/26/2023 9:02 AM EST) CA 19-9 5.8 <=35.0 u/ml [facility] Comment: This result was generated using a Tammy Marcos immunoassay. ??Results obtained from other methods or manufacturers cannot be used interchangeably with this method. Blood 07/26/2023 9:02 AM EST 07/26/2023 9:07 AM EST Narrative Resulting Agency Comment Spec In Lab Rebecca Small MD CHEMISTRY ORDERABL ES Performing Organization Address [facility] Co de Phone Number [facility] [place] [address] documented in this encounter Visit Diagnoses Diagnosis Malignant neoplasm of ovary, unspecified laterality documented in this encounter Care Teams Chief Architect Relationship Specialty Start Date End Date Disha Hayden [address] [place] [address] PCP - General Family Medicine 07/15/23 documented as of this encounter
--- OUTSIDE RECORDS SUMMARY | 2023-12-28 01:40 | XMS_ITS | Encounter Summary ---
Author Organization [facility] [place] [address] Care Team Providers Care Membership Assistant Name Role Phone Disha Hayden Primary Care Provider Encounter Details Date Type Department Care Team (Late st Contact Info) Description 11/17/2023 12:05 AM EDT Ancillary Procedure [place] [address] Disha Hayden [address] [place] [address] Social History Tobacco Use Types [...] EDT Appointment Hematology [place] [address] 01/31/2024 10:20 AM EDT Office Visit [place] [address] Rebecca Small MD [facility] [place] [address] 08/01/2024 11:30 AM EDT Office Visit Dermatology at [facility] [address] [place] [address] Phan Engle MD [facility] DR JESS [place] [address] documented as of this encounter Procedures Procedure Name Priority Date/Time Associated Diagnosis Comments FILM LIBRARY STORAGE ONLY MAMMO Routine 11/17/2023 12:05 AM EDT documented in this encounter Results * Film Library- Storage Only Mammo (11/17/2023 12:05 AM EDT) Narrative [facility] - 12/17/2023 9:59 AM EDT This exam is auto-finalizing. It's purpose is for storage only. Disha Hayden [facility] FILM LIBRARY OR DERABLES [place], [place] documented in this encounter Visit Diagnoses Not on filedocumented in this encounter Care Teams Membership Assistant Relationship Specialty Start Date End Date Disha Hayden [address] [place] [address] PCP - General Family Medicine 07/15/23 documented as of this encounter
--- OUTSIDE RECORDS SUMMARY | 2023-12-28 01:40 | XMS_ITS | Encounter Summary ---
Author Organization [facility] Address [address] [place] [address] Care Team Providers Care Applications Sales Consultant Name Role Phone Keiko Reddy MD Primary Care Provider [phone] Encounter Details Date Type Department Care Team (Latest Contact Info) Description 04/25/2012 8:47 EST - 04/25/2012 19:49 EST Hospital Encounter [facility] Perioperative Services - [address] [address] Fernando Stinson MD [address] [place] [address] Discharge Disposition: Home or Self [...] SERVICE DATE: 04/25/2012 SURGEON: Fernando Stinson MD [facility] ARCHITECT: None. PREOPERATIVE DIAGNOSIS: Left trigger thumb. POSTOPERATIVE [...] incision was made directly over the A1 nuha. Blunt dissection was carried out downto the [...] AM / Fernando Stinson MD mt Confirmation: [id number] Dictation ID: [id number] documented in this encounter Miscellaneous Notes * Scanned Note-Null - TRANSFER TABLE OPERATOR, SCAN 2 - 04/28/2012 1033 EST * Scanned Note-Null - TRANSFER TABLE OPERATOR, SCAN 2 - 04/28/2012 1033 EST documented in this encounter Plan of Treatment Not on file documented as of this encounter Visit Diagnoses Not on filedocumented in this encounter Care Teams Applications Sales Consultant Relationship Specialty Start Date End Date Keiko Reddy MD [address] [address] PCP - General 01/05/11 documented as of this encounter
--- OUTSIDE RECORDS SUMMARY | 2023-12-28 01:41 | XMS_ITS | Encounter Summary ---
Author Organization [facility] [place] [address] Care Team Providers Care Health Program Director Name Role Phone Grecia Maddox MD Primary Care Provider [phone] Encounter Details Date Type Department Care Team (Late st Contact Info) Description 03/19/2020 Ancillary Procedure [place] [address] Disha Hayden [address] [place], [place] [id number] Social History Tobacco Use Types Packs/Day Years [...] AM EDT Appointment Hematology [place] [address] 01/31/2024 10:20 AM EDT Office Visit [place] [address] Rebecca Small MD [facility] [place] [address] 08/01/2024 11:30 AM EDT Office Visit Dermatology at [address] [place] [address] Phan Engle MD [facility] [place] [address] documented as of this encounter Procedures Procedure Name Priority Date/Time Associated Diagnosis Comments FILM LIBRARY STORAGE ONLY MAMMO Routine 03/19/2020 12:00 AM EDT documented in this encounter Results * Film Library- Storage Only Mammo (03/19/2020 12:00 AM EDT) Narrative [facility] - 12/17/2023 10:00 AM EDT This exam is auto-finalizing. It's purpose is for storage only. Disha Hayden Davin FILM LIBRARY OR DERABLES Performing Organization Address City/State/[facility] Co de Phone Number [place], [place] documented in this encounter Visit Diagnoses Not on filedocumented in this encounter Care Teams Health Program Director Relationship Specialty Start Date End Date Grecia Maddox MD [address] [place] [address] PCP - General Family Medicine 05/16/18 07/14/23 documented as of this encounter
--- OUTSIDE RECORDS SUMMARY | 2023-12-28 01:41 | XMS_ITS | Encounter Summary ---
Author Organization [facility] Address [facility] [place] [address] Care Team Providers Care Hospice Volunteer Coordinator Name Role Phone Grecia Maddox MD Primary Care Provider [phone] Reason for Visit * Reason Comments Establish Care Pelvic pain/mass * Consultation (Urgent) - Closed Specialty Diagnoses / Procedures Referred By Marie diaz Referred To Contact Gynecology Oncology Diagnoses Intra-abdominal and pelvic swelling, mass and lump, unspecified site Princess Rodríguez, [address] [place] [address] [facility] [address] [place] [address] Referral ID Status Reason Start Date Expiration Date V isits Requested Visits Authorized [id number] Closed Consult, Test & Treat PCP Updated and/or Approved 03/12/2022 03/12/2023 6 6 Encounter Details Date Type Department Care Team (Late st Contact Info) Description 03/19/2022 9:00 AM EDT Office Visit [place] [address] Rebecca Small MD [facility] [place] [address] Pelvic mass in female (Primary [...] 9:00 AM EDT Division of [place] [address] Gynecologic Oncology Clinic New Patient Visit Reason for visit: pelvic mass, referred by Princess Rodríguez [address] [place] [address] Problem List Patient Active Problem List Diagnosis [...] pelvis. Shilpa is here with her partner, Dain for initial consultation. She has h/o ovarian [...] and does not work. 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 03/19/22 In the REHABILITATION SERVICES COUNSELOR/ONC 3K clinic. documented in this encounter Plan of Treatment Upcoming Encounters Date Type Department Care Team (Late st Contact Info) Description 01/31/2024 9:15 AM EDT Appointment Hematology [place] [address] 01/31/2024 10:20 AM EDT Office Visit [place] [address] Rebecca Small MD [facility] [place] [address] 08/01/2024 11:30 AM EDT Office Visit Dermatology at [facility] [address] [place] [address] Phan Engle MD [facility] [place] [place] [address] documented as of this encounter Results * (ABNORMAL) Carbohydrate Antigen 19-9 (03/19/2022 10:57 AM EDT) CA 19-9 494.0(H) <=35.0 u/ml [facility] Comment: This result was generated using a Tammy Marcos immunoassay. ??Results obtained from other methods or manufacturers cannot be used interchangeably with this method. Blood 03/19/2022 10:5 7 AM EDT 03/19/2022 11:00 AM EDT Narrative Resulting Agency Comment Spec In Lab Rebecca Small MD CHEMISTRY ORDERABL ES Performing Organization Address [facility] Co de Phone Number [facility] [place] [address] * CEA (03/19/2022 10:57 AM EDT) Carcinoembryonic Antigen 1.8 <=3.8 ng/mL [facility] Comment: Reference range: ??(20-69 years): [...] MD CHEMISTRY ORDERABL ES Performing Organization Address [facility] Co de Phone Number [facility] [place] [address] * (ABNORMAL) Cancer Antigen 125 (03/19/2022 10:57 AM EDT) CA 125 42.4(H) <=38.1 unit/mL [facility] Comment: CA 125 Reference Interval [...] Lab Rebecca Small MD CHEMISTRY ORDERABL ES [facility] [place] [address] * (ABNORMAL) Comprehensive metabolic panel (non-fasting) (03/19/2022 10:57 AM EDT) Glucose 91 65 - 199 mg/dL [facility] Comment:Diabetes: >=200 mg/d L plus symptoms Blood Urea Nitrogen 11 8 - 18 mg/dL [facility] Creatinine 0.92 0.70 - 1.20 mg/dL [facility] Sodium 144 135 - 145 mmol/L [facility] Potassium 4.6 3.5 - 5.0 mmol/L [facility] Comment: Please note: ??Patients with WBC >100,000 may have falsely elevated Potassium levels. ??For accurate Potassium quantification in these patients send serum separator tube (gold top) for subsequent determinations. ??Contact the Clinical Chemistry Laboratory if there are any questions. Chloride 108(H) 98 - 107 mmol/L [facility] Carbon Dioxide 26 22 - 31 mmol/L [facility] Anion Gap 10 5 - 15 mmol/L [facility] Calcium 9.6 8.5 - 10.5 mg/dL [facility] Protein, Total 7.1 6.1 - 8.0 g/dL [facility] Albumin 4.6 3.2 - 5.2 g/dL [facility] Aspartate Aminotransferase 19 0 - 30 unit/L [facility] Alanine Aminotransferase 10 0 - 30 unit/L [facility] Alkaline Phosphatase 68 35 - 105 unit/L [facility] Bilirubin, Total 0.3 0.2 - 1.3 mg/dL [facility] Est Glomerular Filtration Rate 73 >=60 mL/min/1. 73 m?? [facility] Comment: This patient's estimated GFR [...] Lab Rebecca Small MD CHEMISTRY ORDERABL ES [facility] [place] [address] documented in this encounter Visit Diagnoses Diagnosis Pelvic mass in female- Primary Abdominal or pelvic swelling, mass or lump, unspecified site documented in this encounter Care Teams Hospice Volunteer Coordinator Relationship Specialty Start Date End Date Grecia Maddox MD [address] [place] [address] PCP - General Family Medicine 05/16/18 07/14/23 documented as of this encounter
--- OUTSIDE RECORDS SUMMARY | 2023-12-28 01:41 | XMS_ITS | Encounter Summary ---
Author Organization [facility] [place] [address] Care Team Providers Care Core Worker Name Role Phone Grecia Maddox MD Primary Care Provider [phone] Encounter Details Date Type Department Care Team (Late st Contact Info) Description 05/20/2022 Orders Only [place] [address] Pita Reed, HAYLEY Ovarian mass Social History [...] AM EDT Appointment Hematology [place] [address] 01/31/2024 10:20 AM EDT Office Visit [place] [address] Rebecca Small MD [facility] [place] [address] 08/01/2024 11:30 AM EDT Office Visit Dermatology at [address] [place] [address] Phan Engle MD [facility] [place] [address] documented as of this encounter Results * Cancer Antigen 125 (07/24/2022 11:53 AM EST) CA 125 8.0 <=38.1 unit/mL [facility] Comment: CA 125 Reference Interval [...] MD CHEMISTRY ORDERABL ES Performing Organization Address City/[facility]/ZIP Co de Phone Number [facility] [place] [address] * Carbohydrate Antigen 19-9 (07/24/2022 11:53 AM EST) CA 19-9 7.2 <=35.0 u/ml [facility] Comment: This result was generated using a Tammy Marcos immunoassay. ??Results obtained from other methods or manufacturers cannot be used interchangeably with this method. Blood 07/24/2022 11:5 3 AM EST 07/24/2022 12:01 PM EST Narrative Resulting Agency Comment Spec In Lab Rebecca Small MD CHEMISTRY ORDERABL ES [facility] [place] [address] documented in this encounter Visit Diagnoses Diagnosis Ovarian mass Unspecified noninflammatory disorder of ovary, fallopian tube, and broad ligament documented in this encounter Care Teams Core Worker Relationship Specialty Start Date End Date Grecia Maddox MD [address] [place] [address] PCP - General Family Medicine 05/16/18 07/14/23 documented as of this encounter
--- OUTSIDE RECORDS SUMMARY | 2023-12-28 01:41 | XMS_ITS | Encounter Summary ---
Author Organization [facility] Address [facility] [place] [address] Care Team Providers Care Digital Marketing Associate Name Role Phone Grecia Maddox MD Primary Care Provider [phone] Encounter Details Date Type Department Care Team [...] AM EDT Appointment Hematology [place] [address] 01/31/2024 10:20 AM EDT Office Visit [place] [address] Rebecca Small MD [facility] [place] [address] 08/01/2024 11:30 AM EDT Office Visit Dermatology at [facility] [address] [place] [address] Phan Engle MD [facility] [address] [place] [address] documented as of this encounter Visit Diagnoses Not on filedocumented in this encounter Care Teams Digital Marketing Associate Relationship Specialty Start Date End Date Grecia Maddox MD [address] [place] [address] PCP - General Family Medicine 05/16/18 07/14/23 documented as of this encounter
--- OUTSIDE RECORDS SUMMARY | 2023-12-28 01:41 | XMS_ITS | Encounter Summary ---
Author Organization [facility] Address [facility] [place] [address] Care Team Providers Care Waiter/Waitress Informal Name Role Phone Grecia Maddox MD Primary Care Provider [phone] Reason for Visit * Reason Comments Follow-up Encounter Details Date Type Department Care Team (Late st Contact Info) Description 07/24/2022 1:00 PM EST Office Visit [place] [address] Rebecca Martinez MD [facility] [address] [place] [address] Endometrial cancer Social History Tobacco Use Types [...] 1:00 PM EST Division [place] [address] Surveillance Visit: Patient Active Problem List Diagnosis [...] AM EDT Appointment Hematology [place] [address] 01/31/2024 10:20 AM EDT Office Visit [place] [address] Rebecca Martinez MD [facility] [place] [address] 08/01/2024 11:30 AM EDT Office Visit Dermatology at [facility] [address] [place] [address] Phan Engle MD [facility] DR [address] HERNA[place] [address] documented as of this encounter Visit Diagnoses Diagnosis Endometrial cancer Malignant neoplasm of corpus uteri, except isthmus documented in this encounter Care Teams Waiter/Waitress Informal Relationship Specialty Start Date End Date Grecia Maddox MD [address] [place] [address] PCP - General Family Medicine 05/16/18 07/14/23 documented as of this encounter
--- OUTSIDE RECORDS SUMMARY | 2023-12-28 01:41 | XMS_ITS | Encounter Summary ---
[place] [address] Care Team Providers Care Clay Temperer Name Role Phone Grecia Maddox MD Primary Care Provider [phone] Reason for Referral * Consultation (Urgent) - Closed Specialty Diagnoses / Procedures Referred By Contyoav t Referred To Contact Gynecology Oncology Diagnoses Intra-abdominal and pelvic swelling, mass and lump, unspecified site Princess Rodríguez DO [address] [place] [address] [place] [address] [facility] Ship Fastener [address] [place] [phone] Referral ID Status Reason Start Date Expiration Date V isits Requested Visits Authorized [id number] Closed Consult, Test & Treat PCP Updated and/or Approved 03/12/2022 03/12/2023 6 6 Encounter Details Date Type Department Care Team (Late st Contact Info) Description 03/12/2022 Transcribe Orders eDH Incoming Referrals [phone] Princess Rodríguez DO [address] [place] [address] [place] [id number] Intra-abdominal and pelvic swelling, mass and lump, [...] AM EDT Appointment Hematology [place] [address] 01/31/2024 10:20 AM EDT Office Visit [place] [address] Rebecca Small MD [facility] [address] 08/01/2024 11:30 AM EDT Office Visit Dermatology at [place] [address] [place] [address] Phan Engle MD [facility] [place] [address] Scheduled Referrals Name Type Priority Associated Diagnoses Orde r Schedule Referral to Gynecologic Oncology Outpatient Referral Urgent Intra-abdominal and pelvic swelling, mass and lump, unspecified site Ordered: 03/12/2022 documented as of this encounter Visit Diagnoses Diagnosis Intra-abdominal and pelvic swelling, mass and lump, unspecified site documented in this encounter Care Teams Clay Temperer Relationship Specialty Start Date End Date Grecia Maddox MD [address] [place] [address] PCP - General Family Medicine 05/16/18 07/14/23 documented as of this encounter
--- OUTSIDE RECORDS SUMMARY | 2023-12-28 01:41 | XMS_ITS | Encounter Summary ---
Author Organization [facility] [place] [address] Care Team Providers Care Esthetician Spa Name Role Phone Grecia Maddox MD Primary Care Provider [phone] Encounter Details Date Type Department Care Team (Late st Contact Info) Description 03/19/2022 10:30 AM EDT Clinical [place] [address] Social History Tobacco Use Types Packs/Day Years [...] AM EDT Appointment Hematology [place] [address] 01/31/2024 10:20 AM EDT Office Visit [place] [address] Rebecca Small MD [facility] [place] [address] 08/01/2024 11:30 AM EDT Office Visit Dermatology at [facility] [address] [place] [address] Phan Engle MD [facility] [address] [address] documented as of this encounter Visit Diagnoses Not on filedocumented in this encounter Care Teams Esthetician Spa Relationship Specialty Start Date End Date Grecia Maddox MD [address] [place] [address] PCP - General Family Medicine 05/16/18 07/14/23 documented as of this encounter
--- OUTSIDE RECORDS SUMMARY | 2023-12-28 01:41 | XMS_ITS | Encounter Summary ---
Author Organization [facility] [place] [address] Care Team Providers Care Poultry Debeaker Name Role Phone Grecia Maddox MD Primary Care Provider [phone] Encounter Details Date Type Department Care Team (Late st Contact Info) Description 03/19/2022 Telephone [place] [address] Rebecca Small MD [facility] [place] [address] Social History Tobacco Use Types Packs/Day Years [...] AM EDT Appointment Hematology [place] [address] 01/31/2024 10:20 AM EDT Office Visit [place] [address] Rebecca Small MD [facility] [place] [address] 08/01/2024 11:30 AM EDT Office Visit Dermatology at [facility] [address] [place] [address] Phan Engle MD [facility] [place] [address] documented as of this encounter Visit Diagnoses Not on filedocumented in this encounter Care Teams Poultry Debeaker Relationship Specialty Start Date End Date Grecia Maddox MD [address] [place] [address] PCP - General Family Medicine 05/16/18 07/14/23 documented as of this encounter
--- OUTSIDE RECORDS SUMMARY | 2023-12-28 01:41 | XMS_ITS | Encounter Summary ---
Author Organization [facility] Address [facility] [place] [address] Care Team Providers Care Assistant Fitness Manager Name Role Phone Grecia Maddox MD Primary Care Provider [phone] Reason for Visit * Reason Comments Established 3 month f/u Encounter Details Date Type Department Care Team (Late st Contact Info) Description 10/30/2022 9:20 AM EDT Office Visit [place] [address] Danita Martinez MD [facility] DR GYNECOLOGIC [place] [address] Malignant neoplasm of right ovary Social History [...] 9:20 AM EDT Division [place] [address] Surveillance Visit: Patient Active Problem List Diagnosis [...] chaperoned by LNA. Consuelo On 10/30/2022 In ARCHITECTURE INTERN/ONC 3k documented in this encounter Plan of Treatment Upcoming Encounters Date Type Department Care Team (Late st Contact Info) Description 01/31/2024 9:15 AM EDT Appointment Hematology [place] [address] 01/31/2024 10:20 AM EDT Office Visit Gy[place] [address] Danita Martinez MD [facility] DR GYNECOLOGIC [place] [address] 08/01/2024 11:30 AM EDT Office Visit Dermatology at [facility] [address] [place] [address] Phan Engle MD [facility] DR [address] HERNANDEZ[place] [address] documented as of this encounter Visit Diagnoses Diagnosis Malignant neoplasm of right ovary Malignant neoplasm of ovary documented in this encounter Care Teams Assistant Fitness Manager Relationship Specialty Start Date End Date Grecia Maddox MD [address] [place] [address] PCP - General Family Medicine 05/16/18 07/14/23 documented as of this encounter
--- OUTSIDE RECORDS SUMMARY | 2023-12-28 01:41 | XMS_ITS | Encounter Summary ---
Author Organization [facility] Address [facility] [place] [address] Care Team Providers Care Supervisor Typesetting Name Role Phone Grecia Maddox MD Primary Care Provider [phone] Encounter Details Date Type Department Care Team (Late st Contact Info) Description 04/24/2022 1:40 PM EST Office Visit [place] [address] Rebecca Small MD [facility] DR [place] [address] Malignant neoplasm of ovary, unspecified laterality Social [...] 1:40 PM EST Division [place] [address] Gynecologic Oncology Clinic New Patient Visit Reason [...] and does not work. 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 [...] Aniceto Verified: ??04/21/2022 12:41 ??Pathologist Performed at: ??-[facility] Dept. of [place]ology, [place] [id number] Breaker Up Machine Operator: Jenelle Valdes MD, AP, ??CLIA Certificate: [id number] SYNOPTIC Specimen ?Procedure: ??Total hysterectomy and bilateral [...] Studies ?Tumor Block(s): ??A3, B3 Impression/plan: Daphne Pickard is a 56 y.o. [...] Rodriguez DO Fellow, Hematology and Medical Oncology [facility] Pager: [phone], 04/24/22, 1:30 PM documented in this encounter Plan of Treatment Upcoming Encounters Date Type Department Care Team (Late st Contact Info) Description 01/31/2024 9:15 AM EDT Appointment Hematology [place] [address] 01/31/2024 10:20 AM EDT Office Visit [place] [address] Rebecca Small MD [facility] DR [place] [address] 08/01/2024 11:30 AM EDT Office Visit Dermatology at [address] [address] Phan Engle MD [facility] DR [address] [place] [address] documented as of this encounter Visit Diagnoses Diagnosis Malignant neoplasm of ovary, unspecified laterality documented in this encounter Care Teams Supervisor Typesetting Relationship Specialty Start Date End Date Grecia Maddox MD [address] [place] [address] PCP - General Family Medicine 05/16/18 07/14/23 documented as of this encounter
--- OUTSIDE RECORDS SUMMARY | 2023-12-28 01:41 | XMS_ITS | Encounter Summary ---
[place] [address] Care Team Providers Care Threat Monitoring Analyst Name Role Phone Grecia Maddox MD Primary Care Provider [phone] Encounter Details Date Type Department Care Team (Late st Contact Info) Description 03/11/2022 Ancillary Procedure [place] [address] Grecia Maddox MD [address] [place], [place] [address] Social History Tobacco Use Types Packs/Day Years [...] AM EDT Appointment Hematology [place] [address] 01/31/2024 10:20 AM EDT Office Visit [place] [address] Rebecca Small MD [facility] [address] GYNECOLOGIC ONCOLOGY [place], [place] [address] 08/01/2024 11:30 AM EDT Office Visit Dermatology at [address] [place] [address] Phan Engle MD [facility] [place] [address] documented as of this encounter Procedures Procedure Name Priority Date/Time Associated Diagnosis Comments FILM LIBRARY STORAGE ONLY CT ABDOMEN AND PELVIS Routine 03/11/2022 12:00 AM EDT documented in this encounter Results * Film Library- Storage Only CT Abdomen & Pelvis (03/11/2022 12:00 AM EDT) Narrative [facility] - 03/27/2022 9:54 AM EDT This exam is auto-finalizing. It's purpose is for storage only. Grecia Maddox MD IMG FILM LIBRARY ORD ERABLES [place], [place] documented in this encounter Visit Diagnoses Not on filedocumented in this encounter Care Teams Threat Monitoring Analyst Relationship Specialty Start Date End Date Grecia Maddox MD [address] [place] [address] PCP - General Family Medicine 05/16/18 07/14/23 documented as of this encounter
--- OUTSIDE RECORDS SUMMARY | 2023-12-28 01:41 | XMS_ITS | Encounter Summary ---
Author Organization [facility] Address [facility] [place] [address] Care Team Providers Care Landscape Account Manager Name Role Phone Grecia Maddox MD Primary Care Provider [phone] Encounter Details Date Type Department Care Team [...] AM EDT Appointment Hematology [place] [address] 01/31/2024 10:20 AM EDT Office Visit [place] [address] Rebecca Small MD [facility] DR GYNECOLOGIC [place] [address] 08/01/2024 11:30 AM EDT Office Visit Dermatology at [facility] [address] [place] [address] Phan Engle MD [facility] [address] [place] [address] documented as of this encounter Visit Diagnoses Not on filedocumented in this encounter Care Teams Landscape Account Manager Relationship Specialty Start Date End Date Grecia Maddox MD [address] [place] [address] PCP - General Family Medicine 05/16/18 07/14/23 documented as of this encounter
--- OUTSIDE RECORDS SUMMARY | 2023-12-28 01:41 | XMS_ITS | Encounter Summary ---
Author Organization [facility] [place] [address] Care Team Providers Care Speech Language Specialist Name Role Phone Grecia Maddox MD Primary Care Provider [phone] Encounter Details Date Type Department Care Team (Late st Contact Info) Description 01/29/2023 Telephone [place] [address] Paula Patricia Social History Tobacco [...] AM EDT Appointment [place] [address] 01/31/2024 10:20 AM EDT Office Visit [place] [address] Rebecca Small MD [facility] [place] [address] 08/01/2024 11:30 AM EDT Office Visit Dermatology at [facility] [address] [place] [address] Phan Engle MD [facility] [address] [place] [address] documented as of this encounter Visit Diagnoses Not on filedocumented in this encounter Care Teams Speech Language Specialist Relationship Specialty Start Date End Date Grecia Maddox MD [address] [place] [address] PCP - General Family Medicine 05/16/18 07/14/23 documented as of this encounter
--- OUTSIDE RECORDS SUMMARY | 2023-12-28 01:41 | XMS_ITS | Encounter Summary ---
Author Organization [facility] [place] [address] Care Team Providers Care Clinical Fellow Name Role Phone Grecia Maddox MD Primary Care Provider [phone] Encounter Details Date Type Department Care Team (Late st Contact Info) Description 01/13/2023 Orders Only [place] [phone] Beverly Pillai, RN Malignant neoplasm of right [...] AM EDT Appointment [place] [phone] 01/31/2024 10:20 AM EDT Office [place] [address] Rebecca Small MD [facility] [place] [address] 08/01/2024 11:30 AM EDT Office Visit Dermatology at [facility] [address] [place] [address] Phan Engle MD [facility] [place] [address] documented as of this encounter Results * Carbohydrate Antigen 19-9 (01/27/2023 10:32 AM EDT) CA 19-9 5.1 <=35.0 u/ml [facility] Comment: This result was generated using a Tammy Marcos immunoassay. ??Results obtained from other methods or manufacturers cannot be used interchangeably with this method. Blood 01/27/2023 10:3 2 AM EDT 01/27/2023 11:04 AM EDT Narrative Resulting Agency Comment Spec In Lab Rebecca Small MD CHEMISTRY ORDERABL ES Performing Organization Address [facility] Co de Phone Number [facility] [place] [address] * Cancer Antigen 125 (01/27/2023 10:32 AM EDT) CA 125 8.8 <=38.1 unit/mL [facility] Comment: CA 125 Reference Interval [...] MD CHEMISTRY ORDERABL ES Performing Organization Address City/[facility]/ZIP Co de Phone Number [facility] [place] [address] documented in this encounter Visit Diagnoses Diagnosis Malignant neoplasm of right ovary Malignant neoplasm of ovary documented in this encounter Care Teams Clinical Fellow Relationship Specialty Start Date End Date Grecia Maddox MD [address] [place] [address] PCP - General Family Medicine 05/16/18 07/14/23 documented as of this encounter
--- OUTSIDE RECORDS SUMMARY | 2023-12-28 01:41 | XMS_ITS | Encounter Summary ---
Author Organization [facility] [place] [address] Care Team Providers Care Jewelry Consultant Name Role Phone Grecia Maddox MD Primary Care Provider [phone] Reason for Referral * Physical Therapy (Routine) - Closed Specialty Diagnoses / Procedures Referred By Marie diaz Referred To Contact Physical Therapy Diagnoses Dyspareunia, female Rebecca Small MD [facility] [place] [address] Referral ID Status Reason Start Date Expiration Date V isits Requested Visits Authorized [id number] Closed Evaluate and Treat 07/29/2022 01/25/2023 12 12 Encounter Details Date Type Department Care Team (Late Contact Info) Description 07/28/2022 Orders Only [place] [address] Adina Du, RN Dyspareunia, female Social History [...] AM EDT Appointment Hematology [place] [address] 01/31/2024 10:20 AM EDT Office Visit [place] [address] Rebecca Small MD [facility] [place] [address] 08/01/2024 11:30 AM EDT Office Visit Dermatology at [place] [address] [place] [address] Phan Engle MD [facility] [address] [place] [address] Scheduled Referrals Name Type Priority Associated Diagnoses Orde r Schedule Referral to Physical Therapy Outpatient Referral Routine Dyspareunia, female Ordered: 07/29/2022 documented as of this encounter Visit Diagnoses Diagnosis Dyspareunia, female Dyspareunia documented in this encounter Care Teams Jewelry Consultant Relationship Specialty Start Date End Date Grecia Maddox MD [address] [place] [address] PCP - General Family Medicine 05/16/18 07/14/23 documented as of this encounter
--- OUTSIDE RECORDS SUMMARY | 2023-12-28 01:41 | XMS_ITS | Encounter Summary ---
Author Organization [facility] Address [facility] [place] [address] Care Team Providers Care Supervisor Research Shop Name Role Phone Grecia Maddox MD Primary Care Provider [phone] Encounter Details Date Type Department Care Team (Late st Contact Info) Description 07/22/2022 Telephone Obstetrics [place] [phone] Blanca Masters Social History Tobacco Use Types [...] AM EDT Appointment Hematology [place] [phone] 01/31/2024 10:20 AM EDT Office Visit [place] [phone] Rebecca Small MD [facility] [place] [address] 08/01/2024 11:30 AM EDT Office Visit Dermatology at [facility] [address] [place] [address] Phan Engle MD [facility] [address] [address] documented as of this encounter Visit Diagnoses Not on filedocumented in this encounter Care Teams Supervisor Research Shop Relationship Specialty Start Date End Date Grecia Maddox MD [address] [place] [address] PCP - General Family Medicine 05/16/18 07/14/23 documented as of this encounter
--- OUTSIDE RECORDS SUMMARY | 2023-12-28 01:41 | XMS_ITS | Encounter Summary ---
Author Organization [facility] Address [facility] [place] [address] Care Team Providers Care Promotor Group Ticket Sales Name Role Phone Grecia Maddox MD Primary Care Provider [phone] Reason for Referral * Physical Therapy (Routine) - Specialty Diagnoses / Procedures Referred By Contac t Referred To Contact Physical Therapy Diagnoses Closed fracture of right tibial plateau with routine healing, subsequent encounter Radius/ulna fracture, right, closed, initial encounter Closed displaced fracture of posterior wall of left acetabulum with routine healing, subsequent encounter Reinaldo Romero MD [facility] [address] Referral ID Status Reason Start Date Expiration Date V isits Requested Visits Authorized [id number] Evaluate and Treat 06/07/2018 12/04/2018 12 12 Reason for Visit * Reason Comments Right Leg Fracture DOI 12/13/2017 R tib plateau R distal rad left acetab ORIF 12/14/2017 o Encounter Details Date Type Department Care Team (Late st Contact Info) Description 06/07/2018 11:10 AM EST Office Visit [place] [address] Reinaldo Romero MD [facility] [place] [address] Closed fracture of right tibial plateau with [...] AM EDT Appointment Hematology [place] [address] 01/31/2024 10:20 AM EDT Office Visit [place] [address] Rebecca Small MD [facility] [place] [address] 08/01/2024 11:30 AM EDT Office Visit Dermatology at [facility] [address] [place] [address] Phan Engle MD [facility] [place] [address] Scheduled Referrals Name Type Priority Associated Diagnoses [...] encounter documented in this encounter Care Teams Promotor Group Ticket Sales Relationship Specialty Start Date End Date Grecia Maddox MD [address] [place] [address] PCP - General Family Medicine 05/16/18 07/14/23 documented as of this encounter
--- OUTSIDE RECORDS SUMMARY | 2023-12-28 01:41 | XMS_ITS | Encounter Summary ---
Author Organization [facility] Address [facility] [place] [address] Care Team Providers Care Cereal Maker Name Role Phone Grecia Maddox MD Primary Care Provider [phone] Encounter Details Date Type Department Care Team (Latest Contact Info) Description 03/19/2022 11:00 AM EDT Laboratory [place] [phone] Pelvic mass in female Social History Tobacco [...] AM EDT Appointment Hematology [place] [address] 01/31/2024 10:20 AM EDT Office Visit [place] [phone] Rebecca Small MD [facility] DR [place] [address] 08/01/2024 11:30 AM EDT Office Visit Dermatology at [facility] [address] [place] [address] Phan Engle MD [facility] DR [address]ESS [place] [address] documented as of this encounter Procedures Procedure [...] Pelvic mass in female COMPREHENSIVE METABOLIC PANEL Routine 03/19/2022 10:57 AM EDT Pelvic mass in female documented in this encounter Results * Type and Screen Validity (03/19/2022 10:57 AM EDT) T&S only valid at [facility] Comment:This Type and Screen result is only valid at the [facility] Blood 03/19/2022 10:5 7 AM EDT 03/19/2022 10:58 AM EDT Narrative Resulting Agency Comment Spec In Lab Rebecca Small MD BLOOD BANK LAB ORD ERABLES Performing Organization Address [facility]/ZIP Co de Phone Number [facility] [place] [address] * ABORH Recheck Status (03/19/2022 10:57 AM EDT) ABORH Type Recheck Completed [facility] Blood 03/19/2022 10:5 7 AM EDT 03/19/2022 10:58 AM EDT Narrative Resulting Agency Comment Spec In Lab Rebecca Small MD BLOOD BANK LAB ORD ERABLES Performing Organization Address City/[facility] Co de Phone Number [facility] [place] [address] * Differential, Automated (03/19/2022 10:57 AM EDT) Pathologist [facility] Neutrophil % 64.8 % [facility] Neutrophil Absolute 4.90 1.70 - 6.10 x10(3)/[facility] Lymph % 24.2 % [facility] Lymphocytes Abs 1.8 0.9 - 3.2 x10(3)/[facility] Monocyte % 9.0 % [facility] Monocyte Abs 0.7 0.3 - 0.9 x10(3)/[facility] Eos % 1.2 % [facility] Eosinophils Abs 0.1 0.0 - 0.4 x10(3)/[facility] Basophil % 0.5 % [facility] Baso Absolute 0.0 0.0 - 0.1 x10(3)/[facility] Immature Gran % 0.30 % [facility] Comment: Immature granulocytes(IG's)percentage and absolute count will include metamyelocytes, myelocytes, and promyelocytes. Blood smears from CBCs yielding IG's will be scanned manually for concordance. If this scan disagrees with the automated IG or if promyelocytes are noted, a manual differential will be performed. Immature Gran Absolute 0.02 0.00 - 0.04 x10(3)/[facility] Blood 03/19/2022 10:5 7 AM EDT 03/19/2022 11:00 AM EDT Narrative Resulting Agency Comment Spec In Lab Rebecca Small MD HEMATOLOGY ORDERAB LES [facility] [place] [address] * Hemogram (03/19/2022 10:57 AM EDT) White Blood Cell 7.6 4.0 - 9.5 x10(3)/[facility] Red Blood Cell 4.35 4.00 - 5.21 x10(6)/[facility] Hemoglobin 13.6 11.7 - 15.5 g/dL [facility] Hematocrit 40.5 35.7 - 45.8 % [facility] Mean Cell Volume 93.1 82.6 - 94.4 fL [facility] Mean Cell Hemoglobin 31.3 27.1 - 32.0 pg [facility] Mean Cell Hemoglobin Concentration 33.6 31.7 - 35.0 g/dL [facility] Platelet 247 145 - 357 x10(3)/[facility]ATORY RDW Standard Deviation 43.4 37.0 - 46.0 fL [facility] RDW coefficient of variation 12.7 11.5 - 14.1 % [facility] Mean Platelet Volume 8.2 7.6 - 12.9 fL [facility] NRBC% auto 0.0 % [facility] NRBC Absolute 0.000 0.000 - 0.000 x10(3)/mcL [facility] Blood 03/19/2022 10:5 7 AM EDT 03/19/2022 11:00 AM EDT Narrative Resulting Agency Comment Spec In Lab Rebecca Small MD HEMATOLOGY ORDERAB LES Performing Organization Address City/[facility]/ZIP Co de Phone Number [facility] [place] [address] * Antibody screen (03/19/2022 10:57 AM EDT) Ab Screen Interp Negative [facility] Expires at [id number] on: 04/05/2022 [facility] Comment: Corrected from 05/03/22 0:00:00 EST [Unknown] on 03/20/22 19:38:59 EDT by Kandis Merritt Blood 03/19/2022 10:5 7 AM EDT 03/19/2022 10:58 AM EDT Narrative Resulting Agency Comment Spec In Lab Rebecca Small MD BLOOD BANK LAB ORD ERABLES Performing Organization Address [facility]/ZIP Co de Phone Number [facility] [place] [address] * ABO/Rh Typing (03/19/2022 10:57 AM EDT) ABORH Type A Neg [facility] Blood 03/19/2022 10:5 7 AM EDT 03/19/2022 10:58 AM EDT Narrative Resulting Agency Comment Spec In Lab Rebecca Small MD BLOOD BANK LAB ORD ERABLES Performing Organization Address [facility]/ZIP Co de Phone Number [facility] [place] [address] * (ABNORMAL) Comprehensive metabolic panel (non-fasting) (03/19/2022 10:57 AM EDT) Glucose 91 65 - 199 mg/dL [facility] Comment:Diabetes: >=200 mg/d L plus symptoms Blood Urea Nitrogen 11 8 - 18 mg/dL [facility] Creatinine 0.92 0.70 - 1.20 mg/dL [facility] Sodium 144 135 - 145 mmol/L [facility] Potassium 4.6 3.5 - 5.0 mmol/L [facility] Comment: Please note: ??Patients with WBC >100,000 may have falsely elevated Potassium levels. ??For accurate Potassium quantification in these patients send serum separator tube (gold top) for subsequent determinations. ??Contact the Clinical Chemistry Laboratory if there are any questions. Chloride 108(H) 98 - 107 mmol/L [facility] Carbon Dioxide 26 22 - 31 mmol/L [facility] Anion Gap 10 5 - 15 mmol/L [facility] Calcium 9.6 8.5 - 10.5 mg/dL [facility] Protein, Total 7.1 6.1 - 8.0 g/dL [facility] Albumin 4.6 3.2 - 5.2 g/dL [facility] Aspartate Aminotransferase 19 0 - 30 unit/L [facility] Alanine Aminotransferase 10 0 - 30 unit/L [facility] Alkaline Phosphatase 68 35 - 105 unit/L [facility] Bilirubin, Total 0.3 0.2 - 1.3 mg/dL [facility] Est Glomerular Filtration Rate 73 >=60 mL/min/1. 73 m?? [facility] Comment: This patient's estimated GFR [...] MD CHEMISTRY ORDERABL ES Performing Organization Address [facility] Phone Number [facility] [place] [address] * (ABNORMAL) Cancer Antigen 125 (03/19/2022 10:57 AM EDT) CA 125 42.4(H) <=38.1 unit/mL [facility] Comment: CA 125 Reference Interval [...] MD CHEMISTRY ORDERABL ES Performing Organization Address [facility] de Phone Number [facility] [place] [address] * CEA (03/19/2022 10:57 AM EDT) Carcinoembryonic Antigen 1.8 <=3.8 ng/mL [facility] Comment: Reference range: ??(20-69 years): [...] MD CHEMISTRY ORDERABL ES Performing Organization Address [facility] Co de Phone Number [facility] [place] [address] * (ABNORMAL) Carbohydrate Antigen 19-9 (03/19/2022 10:57 AM EDT) CA 19-9 494.0(H) <=35.0 u/ml [facility] Comment: This result was generated using a Tammy Marcos immunoassay. ??Results obtained from other methods or manufacturers cannot be used interchangeably with this method. Blood 03/19/2022 10:5 7 AM EDT 03/19/2022 11:00 AM EDT Narrative Resulting Agency Comment Spec In Lab Rebecca Small MD CHEMISTRY ORDERABL ES Performing Organization Address [facility] Co de Phone Number [facility] [place] [address] documented in this encounter Visit Diagnoses Diagnosis Pelvic mass in female Abdominal or pelvic swelling, mass or lump, unspecified site documented in this encounter Care Teams Cereal Maker Relationship Specialty Start Date End Date Grecia Maddox MD [address] [place] [place] [address] PCP - General Family Medicine 05/16/18 07/14/23 documented as of this encounter
--- OUTSIDE RECORDS SUMMARY | 2023-12-28 01:41 | XMS_ITS | Encounter Summary ---
Author Organization [facility] Address [facility] [place] [address] Care Team Providers Care Roping Tender Name Role Phone Grecia Maddox MD Primary Care Provider [phone] Encounter Details Date Type Department Care Team (Late st Contact Info) Description 03/20/2022 Telephone Gynecology [place] [phone] Rebecca Small MD [facility] [place] [address] Social History Tobacco Use Types Packs/Day Years [...] AM EDT Appointment Hematology [place] [address] 01/31/2024 10:20 AM EDT Office Visit Gyne[place] [address] Rebecca Small MD [facility] [place] [address] 08/01/2024 11:30 AM EDT Office Visit Dermatology at [address] [place] [address] Phan Engle MD [facility] DR J[address] [place] [address] documented as of this encounter Visit Diagnoses Not on filedocumented in this encounter Care Teams Roping Tender Relationship Specialty Start Date End Date Grecia Maddox MD [address] [place] [address] PCP - General Family Medicine 05/16/18 07/14/23 documented as of this encounter
--- OUTSIDE RECORDS SUMMARY | 2023-12-28 01:41 | XMS_ITS | Encounter Summary ---
Author Organization [facility] Address [facility] [place] [address] Care Team Providers Care Semi Automatic Sewing Machine Operator Name Role Phone Grecia Maddox MD Primary Care Provider [phone] Encounter Details Date Type Department Care Team [...] AM EDT Appointment Hematology [place] [address] 01/31/2024 10:20 AM EDT Office Visit [place] [address] Rebecca Small MD [facility] DR [place] [address] 08/01/2024 11:30 AM EDT Office Visit Dermatology at [facility] [address] [place] [address] Phan Engle MD [facility] [place] [address] [place] [address] documented as of this encounter Visit Diagnoses Not on filedocumented in this encounter Care Teams Semi Automatic Sewing Machine Operator Relationship Specialty Start Date End Date Grecia Maddox MD [address] [place] [address] PCP - General Family Medicine 05/16/18 07/14/23 documented as of this encounter
--- OUTSIDE RECORDS SUMMARY | 2023-12-28 01:41 | XMS_ITS | Encounter Summary ---
Author Organization [facility] [place] [address] Care Team Providers Care Rougher Operator Name Role Phone Grecia Maddox MD Primary Care Provider [phone] Reason for Visit * Auth/Cert Specialty Diagnoses / Procedures Referred By Contac t Referred To Contact Diagnoses Ovarian mass OVARIAN MASS Procedures PRO LAP, RMV ADNEXAL STRUCTURE LAPAROSCOPY, REMOVAL OF ADNEXA (WRVU 11.35) Rebecca Small MD [facility] GYNECOLOGIC [place] [address] [facility] Referral ID Status Reason Start Date Expiration Date Visits Re quested Visits Authorized [id number] 1 1 Encounter Details Date Type Department Care Team (Late st Contact Info) Description 04/02/2022 7:28 AM EST Anesthesia [place] [address] Bonita Mckeon MD [facility] [place] [address] Anesthesia Record Procedure Summary Procedure Name Responsible [...] 0803; Surg deepa longer than 2 hours (CHILD DEVELOPMENT SPECIALIST surgery.); indwelling double lumen catheter; latex; 14; inserted at this facility (by Dr. Small); 1; 5; 10; none; drainage bag to dependent drainage 04/02/22 0803 by Emely Bermeo, RN Incision 04/02/22; 0816; abdo men; laparoscopic punctures (specify); X3 04/02/22 0816 by Emely Bermeo, RN (RETIRED) Peripheral IV Line - Single Lumen 04/02/22; 0716; cephalic vein (lateral side of arm), left; ritq-abe-hyeixw catheter system; Anatomical Landmarks; 20 gauge; distraction, [...] Procedure Summary Date: 04/02/22 Room / Location: [facility] OR [address] [place] [address] MAIN OR Anesthesia Start: 727 Anesthesia Stop: 1123 Procedure: LAPAROSCOPY, TOTAL HYST, UTERUS<250GMS, REM TUBE &/OR OVARY (WRVU 15) (Bilateral ) Diagnosis: (OVARIAN MASS) Surgeons: Rebecca Small MD Responsible Provider: Bonita Mckeon MD Anesthesia Type: general ASA Status: 2 All Anesthesia Providers: Anesthesiologist: Bonita Mckeon MD MILITARY PERSONNEL SPECIALIST: Rosa Steiner CRNA Student Nurse Orthopedic Mechanic: Oseas Lovell Vitals Value Taken Time BP [...] 0.18) performed by Reinaldo Romero MD at [facility] MAIN OR ??? PRO COLONOSCOPY, DIAGNOSTIC N/A 06/25/2017 COLONOSCOPY, DIAGNOSTIC performed by Kimani Rojas MD at [facility] ENDOSCOPY ??? PRO OPEN TRAINING ADMINISTRATOR FIX ACETABULAR FX Left 12/20/2017 @OPEN TREATMENT, ACETABULAR FX (WRVU 25.41) performed by Tete Talamantes MD at [facility] MAIN OR ??? PRO OPEN RX DISTAL RADIUS FX, INTRA-ARTICULAR, 3+ FRAG Right 12/14/2017 ORIF DISTAL RADIUS, 3 OR MORE FRAGMENTS (WRVU 14.38) performed by Reinaldo Romero MD at [facility] MAIN OR ??? PRO OPEN TX TIBIAL FRACTURE PROXIMAL UNICONDYLAR Right 12/14/2017 @ORIF TIBIAL PLATEAU (PROXIMAL) UNICONDYLAR (WRVU 13.41) performed by Reinaldo Romero MD at [facility] MAIN OR ??? PRO REM SUTURES W ANESTH OTHR SURGEON N/A 01/12/2018 REMOVAL OF SUTURE UNDER ANESTHESIA, OTHER SURGEON, LOWER EXTREMITY (WRVU 0.86) performed by Reinaldo Romero MD at [facility] MAIN OR Social History Tobacco Use ??? [...] with patient and spouse. Plan discussed with MILITARY PERSONNEL SPECIALIST and attending. Anesthesia Screening documented in this encounter Plan of Treatment Upcoming Encounters Date Type Department Care Team (Late st Contact Info) Description 01/31/2024 9:15 AM EDT Appointment Hematology [place] [address] 01/31/2024 10:20 AM EDT Office Visit Gy[place] [address] Rebecca Small MD [facility] GYNECOLOGIC [place] [address] 08/01/2024 11:30 AM EDT Office Visit Dermatology at [facility] [address] [place] [address] Phan Engle MD [facility] DR JESS HERNANDEZ[place] [address] documented as of this encounter Visit Diagnoses [...] multi-dose injection Syrg Intravenous, PRN, Starting on Jluiette 04/02/22 at 0851, Until Juliette 04/02/22 at [...] mg documented in this encounter Care Teams Rougher Operator Relationship Specialty Start Date End Date Grecia Maddox MD [address] [place] [address] PCP - General Family Medicine 05/16/18 07/14/23 documented as of this encounter
--- OUTSIDE RECORDS SUMMARY | 2023-12-28 01:41 | XMS_ITS | Encounter Summary ---
Author Organization [facility] Address [facility] [place] [address] Care Team Providers Care Consulting Nurse Name Role Phone Grecia Maddox MD Primary Care Provider [phone] Encounter Details Date Type Department Care Team [...] AM EDT Appointment Hematology [place] [address] 01/31/2024 10:20 AM EDT Office Visit [place] [address] Rebecca Small MD [facility] [place] [address] 08/01/2024 11:30 AM EDT Office Visit Dermatology at [facility] [address] [place] [address] Phan Engle MD [facility] DR [address] [place] [address] documented as of this encounter Visit Diagnoses Not on filedocumented in this encounter Care Teams Consulting Nurse Relationship Specialty Start Date End Date Grecia Maddox MD [address] [place] [address] PCP - General Family Medicine 05/16/18 07/14/23 documented as of this encounter
--- OUTSIDE RECORDS SUMMARY | 2023-12-28 01:41 | XMS_ITS | Encounter Summary ---
Author Organization [facility] Address [facility] [place] [address] Care Team Providers Care Special Agent Group Insurance Name Role Phone Grecia Maddox MD Primary Care Provider [phone] Encounter Details Date Type Department Care Team [...] AM EDT Appointment Hematology [place] [address] 01/31/2024 10:20 AM EDT Office Visit [place] [address] Rebecca Small MD [facility] DR [place]YNECOLOG[place] [address] 08/01/2024 11:30 AM EDT Office Visit Dermatology at [facility] [address] [place] [address] Phan Engle MD [facility] DR J[address] HERNANDE[place] [address] documented as of this encounter Visit Diagnoses Not on filedocumented in this encounter Care Teams Special Agent Group Insurance Relationship Specialty Start Date End Date Grecia Maddox MD [address] [place] [address] PCP - General Family Medicine 05/16/18 07/14/23 documented as of this encounter
--- OUTSIDE RECORDS SUMMARY | 2023-12-28 01:41 | XMS_ITS | Encounter Summary ---
Author Organization [facility] Address [facility] [place] [address] Care Team Providers Care Pest Control Worker Helper Name Role Phone Grecia Maddox MD Primary Care Provider [phone] Encounter Details Date Type Department Care Team (Late st Contact Info) Description 05/20/2022 Telephone [place] [address] Rebecca Small MD [facility] [place] [address] Social History Tobacco Use Types Packs/Day Years [...] AM EDT Appointment Hematology [place] [address] 01/31/2024 10:20 AM EDT Office Visit [place] [address] Rebecca Small MD [facility] [place] [address] 08/01/2024 11:30 AM EDT Office Visit Dermatology at [facility] [address] [place] [address] Phan Engle MD [facility] DR [place] [address] documented as of this encounter Visit Diagnoses Not on filedocumented in this encounter Care Teams Pest Control Worker Helper Relationship Specialty Start Date End Date Grecia Maddox MD [address] [place] [address] PCP - General Family Medicine 05/16/18 07/14/23 documented as of this encounter
--- OUTSIDE RECORDS SUMMARY | 2023-12-28 01:41 | XMS_ITS | Encounter Summary ---
Author Organization [facility] [place] [address] Care Team Providers Care Orthotic Fitter Name Role Phone Grecia Maddox MD Primary Care Provider [phone] Encounter Details Date Type Department Care Team (Late st Contact Info) Description 10/30/2022 Orders Only [place] [address] Rebecca Small MD [facility] [place] [address] Endometrial cancer Social History Tobacco Use Types [...] Appointment Hematology [place] [address] 01/31/2024 10:20 AM EDT Office Visit [place] [address] Rebecca Small MD [facility] [place] [address] 08/01/2024 11:30 AM EDT Office Visit Dermatology at [facility] [address] [place] [address] Phan Engle MD [facility] [address] [address] documented as of this encounter Results * Cancer Antigen 125 (10/30/2022 9:24 AM EDT) CA 125 9.4 <=38.1 unit/mL [facility] Comment: CA 125 Reference Interval ??Postmenopausal: [...] Lab Rebecca Small MD CHEMISTRY ORDERABL ES [facility] [address] documented in this encounter Visit Diagnoses Diagnosis Endometrial cancer Malignant neoplasm of corpus uteri, except isthmus documented in this encounter Care Teams Orthotic Fitter Relationship Specialty Start Date End Date Grecia Maddox MD [address] [place] [address] PCP - General Family Medicine 05/16/18 07/14/23 documented as of this encounter
--- OUTSIDE RECORDS SUMMARY | 2023-12-28 01:41 | XMS_ITS | Encounter Summary ---
Author Organization [facility] [place] [address] Care Team Providers Care Behavioral Pediatrician Name Role Phone Grecia Maddox MD Primary Care Provider [phone] Encounter Details Date Type Department Care Team (Latest Contact Info) Description 01/27/2023 10:07 AM EDT - 01/27/2023 11:59 PM EDT Hospital Encounter [place]ematology [place] [address] Malignant neoplasm of right ovary Discharge Disposition: [...] AM EDT Appointment [place]ematology [place] [address] 01/31/2024 10:20 AM EDT Office Visit [place] [address] Rebecca Small MD [facility] [place] [address] 08/01/2024 11:30 AM EDT Office Visit Dermatology at [address] [address] Phan Engle MD [facility] DR JESS HERNA[place] [address] documented as of this encounter Procedures Procedure Name Priority Date/Time Associated Diagnosis Comments CARBOHYDRATE ANTIGEN 19-9 Routine 01/27/2023 10:32 AM EDT Malignant neoplasm of right ovary CANCER ANTIGEN 125 Routine 01/27/2023 10 :32 AM EDT Malignant neoplasm of right ovary documented in this encounter Results * Cancer Antigen 125 (01/27/2023 10:32 AM EDT) CA 125 8.8 <=38.1 unit/mL [facility] Comment: CA 125 Reference Interval [...] MD CHEMISTRY ORDERABL ES Performing Organization Address [facility] Co de Phone Number [facility] [place] [address] * Carbohydrate Antigen 19-9 (01/27/2023 10:32 AM EDT) CA 19-9 5.1 <=35.0 u/ml [facility] Comment: This result was generated using a Tammy Marcos immunoassay. ??Results obtained from other methods or manufacturers cannot be used interchangeably with this method. Blood 01/27/2023 10:3 2 AM EDT 01/27/2023 11:04 AM EDT Narrative Resulting Agency Comment Spec In Lab Rebecca Small MD CHEMISTRY ORDERABL ES Performing Organization Address City/[facility]/[place] [address] documented in this encounter Visit Diagnoses Diagnosis Malignant neoplasm of right ovary Malignant neoplasm of ovary documented in this encounter Care Teams Behavioral Pediatrician Relationship Specialty Start Date End Date Grecia Maddox MD [address] [place] [address] PCP - General Family Medicine 05/16/18 07/14/23 documented as of this encounter
--- OUTSIDE RECORDS SUMMARY | 2023-12-28 01:41 | XMS_ITS | Encounter Summary ---
Author Organization [facility] Address [facility] [place] [address] Care Team Providers Care Mechanical Engineering Officer Name Role Phone Grecia Maddox MD Primary Care Provider [phone] Encounter Details Date Type Department Care Team [...] AM EDT Appointment Hematology [place] [address] 01/31/2024 10:20 AM EDT Office Visit [place] [address] Rebecca Small MD [facility] [place] [address] 08/01/2024 11:30 AM EDT Office Visit Dermatology at [facility] [address] [place] [address] Phan Engle MD [facility] [place] [address] documented as of this encounter Visit Diagnoses Not on filedocumented in this encounter Care Teams Mechanical Engineering Officer Relationship Specialty Start Date End Date Grecia Maddox MD [address] [place] [address] PCP - General Family Medicine 05/16/18 07/14/23 documented as of this encounter
--- OUTSIDE RECORDS SUMMARY | 2023-12-28 01:41 | XMS_ITS | Encounter Summary ---
Author Organization [facility] [place] [address] Care Team Providers Care Accounts Receivable Administrator Name Role Phone Grecia Maddox MD Primary Care Provider [phone] Reason for Visit * Auth/Cert Specialty Diagnoses / Procedures Referred By Contyoav t Referred To Contact Diagnoses Ovarian mass OVARIAN MASS Procedures PRO LAP, RMV ADNEXAL STRUCTURE LAPAROSCOPY, REMOVAL OF ADNEXA (WRVU 11.35) Danita Small MD [facility] [place] [address] [facility] Referral ID Status Reason Start Date Expiration Date Visits Re quested Visits Authorized [id number] 1 1 Encounter Details Date Type Department Care Team (Late st Contact Info) Description 04/02/2022 7:30 AM EST - 04/02/2022 10:28 AM EST Surgery [place] [address] Danita Small MD [facility] [place]EC[place] [address] LAPAROSCOPY, TOTAL HYST, UTERUS<250GMS, REM TUBE &/OR [...] PATIENT DISCHARGE INSTRUCTIONS Gynecologic Oncology phone number: [phone] (Nurse ext 4 then 4; appointment ext 1 then 4). After hours and on weekends please call hospital [facility] operator at [phone] and ask for Gynecologic Oncologist styrene dehydration reactor operator. Call your doctor if you develop: --A [...] Novak MD - 04/02/2022 7:08 AM EST Finish Specialist Inpatient Admission Interval Note I have reviewed the pre-procedure H&P completed by Dr. Small on 03/19/2022. (x) Condition unchanged since H&P originally performed. See interval note below. Interval Note: S: Daphne Pickard feels well today. No complaints / concerns. Denies any changes to her past medical or past surgical history. No new medications or allergies. Anticipating same day surgery. Preferred pharmacy is [facility] in [place]. O: BP 120/80 Pulse 67 Temp 36.7 [...] To be discussed with Dr. Small, Attending Cake Former Oncologist Cordelia Novak MD, PGY3 04/02/2022 Associated [...] Operative Note Patient Name: Daphne Pickard : [id number] MR#: [id number] Case Date: 04/02/2022 Surgeon: Surgeon(s) and Role: [...] Small MD - 04/02/2022 8:16 AM EST [facility] Operative Note Patient Name: Daphne Pickard : [id number] MR#: [id number] Case Date: 04/02/2022 Surgeon: Surgeon(s) and Role: [...] AM EDT Appointment [place] [address] 01/31/2024 10:20 AM EDT Office [place] [address] Danita Small MD [facility] DR GYNEC[place]IC [place] [address] 08/01/2024 11:30 AM EDT Office Visit Dermatology at [facility] [address] [place] [id number] Phan Engle MD [facility] DR JESS HERNAN[place] [address] documented as of this encounter Procedures Procedure [...] TO PATHOLOGY Routine 04/02/2022 9:19 AM EST NON-ENROLLMENT MANAGEMENT MANAGER FINAL REPORT Routine 04/02/2022 9:10 AM EST SPECIMEN TO PATHOLOGY Routine 04/02/2022 9:10 AM EST CYTOPATHOLOGY NON-GYNECOLOGICAL Routine 04/02/2022 9:10 AM EST SURGICAL PATHOLOGY REPORT Routine 04/02/2022 8:55 AM EST SPECIMEN TO PATHOLOGY STAT 04/02/2022 8:55 AM EST Laparoscopy W Tot Hysterectuterus <=250 Gram W Tube/Ovary (03692) Yes 04/02/2022 7:32 AM EST OVARIAN MASS POCT GLUCOSE Routine 04/02/2022 6:30 AM EST documented in this encounter Results * Specimen to Pathology (04/02/2022 10:41 AM EST) AP Specimen 04/02/2022 10:4 1 AM EST 04/02/2022 10:41 AM EST Narrative [facility] - 04/02/2022 10:41 AM EST Specimen requisition ordered. ??Separate Pathology report to follow Authorizing Provider Result Carmenza Small MD PATHOLOGY/CYTOLOGY ORDERABLES [facility] [place] [place] [address] * POCT Glucose (04/02/2022 10:40 AM EST) Glucose, POC 137 65 - 199 mg/dL [facility] Comment: Supplemental ranges: <140 mg/dL before meals <180 mg/dL all other times of the day Blood 04/02/2022 10:4 0 AM EST 04/02/2022 10:40 AM EST Narrative Authorizing Provider Result Carmenza Small MD POINT OF CARE TEST ORDERABLES Performing Organization Address City/[facility]/ZIP Co de Phone Number [facility] [place] [place] [address] * Specimen to Pathology (04/02/2022 10:25 AM EST) AP Specimen 04/02/2022 10:2 5 AM EST 04/02/2022 10:25 AM EST Narrative [facility] - 04/02/2022 10:25 AM EST Specimen requisition ordered. ??Separate Pathology report to follow Danita Small MD PATHOLOGY/CYTOLOGY ORDERABLES [facility] [place] [place] [address] * Specimen to Pathology (04/02/2022 10:01 AM EST) AP Specimen 04/02/2022 10:0 1 AM EST 04/02/2022 10:01 AM EST Narrative [facility] - 04/02/2022 10:01 AM EST Specimen requisition ordered. ??Separate Pathology report to follow Authorizing Provider Result Carmenza Small MD PATHOLOGY/CYTOLOGY ORDERABLES Performing Organization Address [facility] [place] [address] * Specimen to Pathology (04/02/2022 10:01 AM EST) AP Specimen 04/02/2022 10:0 1 AM EST 04/02/2022 10:01 AM EST Narrative [facility] - 04/02/2022 10:01 AM EST Specimen requisition ordered. ??Separate Pathology report to follow Authorizing Provider Result Carmenza Small MD PATHOLOGY/CYTOLOGY ORDERABLES Performing Organization Address [facility] [place] [address] * Specimen to Pathology (04/02/2022 10:01 AM EST) AP Specimen 04/02/2022 10:0 1 AM EST 04/02/2022 10:01 AM EST Narrative [facility] - 04/02/2022 10:01 AM EST Specimen requisition ordered. ??Separate Pathology report to follow Authorizing Provider Result Carmenza Small MD PATHOLOGY/CYTOLOGY ORDERABLES Performing Organization Address [facility] [place] [address] * Specimen to Pathology (04/02/2022 9:19 AM EST) AP Specimen 04/02/2022 9:19 AM EST 04/02/2022 9:19 AM EST Narrative [facility] - 04/02/2022 9:19 AM EST Specimen requisition ordered. ??Separate Pathology report to follow Authorizing Provider Result Carmenza Small MD PATHOLOGY/CYTOLOGY ORDERABLES Performing Organization Address City/[facility]/ZIP Co de Phone Number [facility] [place] [place] [address] * Non-Cake Former Final Report (04/02/2022 9:10 AM EST) Diagnosis Discussion [id number] ? Location: [facility]; The signing pathologist has (i) examined the relevant preparation(s) for the specimen(s) and (ii) rendered or confirmed the diagnosis(es). . ? Non-Cake Former Final DIAGNOSIS Negative for Malignancy Electronically signed by: ?Maryjo ELLISON, Parul Leal Verified: ??04/06/2022 11:59 ??Pathologist Performed at: ??-[facility] Dept. of Pathology, [place] [address] Top Icer: Jenelle Valdes MD, FCAP, ??CLIA Certificate: [id number] DISCUSSION Pelvic wash: Rare mesothelial cells with blood and mixed leukocytes. Cell block was examined. CLINICAL INFORMATION Specimen Source : Pelvic wash Pertinent Clinical Data and Significant Therapy: Ovarian mass Clinical Impression : Ovarian mass Pertinent Radiologic Findings ??: (not provided) Gross Description: Received ??fresh, approximately 30 mL total volume of ?? cloudy, red fluid. Total Preparation: Liquid-Based Prep 1; Cell Block 1. 04/06/2022 11:59 AM EST [facility] Pelvic Washing 04/02/2022 9: 10 AM EST 04/02/2022 9:10 AM EST Danita Small MD PATHOLOGY/CYTOLOGY ORDERABLES [facility] [place] [address] * Cytopathology Non-Gynecological (04/02/2022 9:10 AM EST) AP Specimen 04/02/2022 9:10 AM EST 04/02/2022 9:10 AM EST Narrative [facility] - 04/02/2022 9:10 AM EST Specimen requisition ordered. ??Separate Pathology report to follow Danita Small MD PATHOLOGY/CYTOLOGY ORDERABLES Performing Organization Address [facility] [place] [address] * Specimen to Pathology (04/02/2022 9:10 AM EST) AP Specimen 04/02/2022 9:10 AM EST 04/02/2022 9:10 AM EST Narrative [facility] - 04/02/2022 9:10 AM EST Specimen requisition ordered. ??Separate Pathology report to follow Danita Small MD PATHOLOGY/CYTOLOGY ORDERABLES Performing Organization Address [facility] de Phone Number [facility] [place] [address] * Surgical Pathology Report (04/02/2022 8:55 AM EST) Pathologist [facility] Final Diagnosis [id number] ? Location: [facility]; The signing pathologist has (i) [...] Aniceto Verified: ??04/21/2022 12:41 ??Pathologist Performed at: ??-[facility] Dept. of Pathology, [place] [address] Top Icer: Jenelle Valdes MD, AP, ??CLIA Certificate: [id number] SYNOPTIC Specimen ? Procedure: ??Total hysterectomy and [...] ? Tumor Block(s): ??A3, B3 ? CAP eCC 2021 Q1 Release Comment: Per tumor board [...] in available in the Laboratory for Clinical [employer] ([employer]) if the clinical [...] ?Result (Positive/Negative) B3 ?ER ? positive B3 ?KS ? positive B3 ?P53 ?wild type expression [...] x 3 cm aggregate. ?? Outer Surface: [place]-white, disrupted. ?? Cut Surface: Aggregate of rubbery pink-white solid tissues, smooth cyst wall , and ??admixed softer, solid pale-soler tissues aggregating 3.5 x 2.6 x 1.0 cm. Right Fallopian Tube: 6.8 x 0.5 cm, fimbriated. Sections/Processing: The following tissue is submitted for frozen section: FS 1-desk representative right ovary. Glass Frame Fitter sections in 12 cassettes as follows: ?A1: [...] parenchyma identified. No identified fallopian tube. Sections/Processing: Glass Frame Fitter sections in 7 cassettes labeled B1-B7. C - Labeled/Fixative: Left tube and ovary, fresh. Tissue Description: Intact, salpingo-oophorectom y. LEFT OVARY ?? Size: 2.0 x 2.0 x 1.3 cm. ?? Outer Surface: [place]bron-red, Abundant adhesions. ?? Cut Surface: Central smooth-walled cyst measuring 1.2 x 1.0 x 0.8 cm. Left Fallopian Tube: 6.2 x 0.5 cm, fimbriated. Sections/Processing: Glass Frame Fitter sections in 6 cassettes as follows: ?C1-C3: ??Left ovary, desk representative ?C4-C6: ??Left fallopian tube, entirely submitted D - Labeled/Fixative: Omental biopsy, fresh. Quantity/Size: Single, 6.0 x 4.7 x 1.0 cm. Tissue Description: Portion of fibroadipose tissue in keeping with omentum. No discrete lesions identified. Sections/Processing: Glass Frame Fitter sections in 3 cassettes labeled D1-D3. E [...] 2.5 cm Os: 0.6 cm, circular Sections/Processing: Glass Frame Fitter sections in 5 cassettes as follows: ?H1: ??Anterior cervix ?H2: ??Posterior cervix ?H3-H4: ??Anterior endomyometrium, full thickness with endometrial polyp ?H5: ??Posterior endomyometrium ??ajw ?Frozen Section FROZEN SECTION DIAGNOSIS AFS - Portion of right ovary: ?Endometrioid morphology with squamous differentiation. ?At least borderline, cannot exclude an endometrioid ?adenocarcinoma with squamous differentiation. Await ?additional sections. - JLDavin 04/02/22 09:28 Electronically signed by: ?Sumit Echevarria MD Verified: ??04/02/2022 9:34 ?? Pathologist Performed at: ??-[facility] Dept. of Pathology, [address] This intraoperative consultation should be interpreted as a preliminary diagnosis pending review of the entire specimen and special studies, if any. A final Surgical Pathology report will follow this preliminary Frozen Section report(s). 04/21/2022 12:41 PM EST [facility] OVARIAN PART / Unknown 04/02/2022 8:55 AM EST 04/02/2022 8:55 AM EST OVARIAN PART / Unknown 04/02/2022 8:55 AM EST 04/02/2022 8:55 AM EST OVARIAN PART / Unknown 04/02/2022 8:55 AM EST 04/02/2022 8:55 AM EST OMENTUM STRUCTURE / Unknown 04/02/2022 8:55 AM EST 04/02/2022 8:55 AM EST BIOPSY OF CUL-DE-SAC / Unknown 04/02/2022 8:55 AM EST 04/02/2022 8:55 AM EST URINARY BLADDER STRUCTURE / Unknown 04/02/2022 8:55 AM EST 04/02/2022 8:55 AM EST BIOPSY SPECIMEN / Unknown 04/02/2022 8:55 AM EST 04/02/2022 8:55 AM EST Uterine Corpus 04/02/2022 8: 55 AM EST 04/02/2022 8:55 AM EST Danita Small MD PATHOLOGY/CYTOLOGY ORDERABLES Performing Organization Address City/[facility]/ZIP Co de Phone Number [facility] [place] [address] * Specimen to Pathology (04/02/2022 8:55 AM EST) AP Specimen 04/02/2022 8:55 AM EST 04/02/2022 8:55 AM EST Narrative [facility] - 04/02/2022 8:55 AM EST Specimen requisition ordered. ??Separate Pathology report to follow Danita Small MD PATHOLOGY/CYTOLOGY ORDERABLES Performing Organization Address City/[facility] Co de Phone Number [facility] [place] [address] * (ABNORMAL) POCT Glucose (04/02/2022 6:30 AM EST) Glucose, POC 64(L) 65 - 199 mg/dL [facility] Comment: Supplemental ranges: <140 mg/dL before meals <180 mg/dL all other times of the day Blood 04/02/2022 6:30 AM EST 04/02/2022 6:30 AM EST Danita Small MD POINT OF CARE TEST ORDERABLES [facility] [address] [place] [address] documented in this encounter Visit Diagnoses Not [...] Routine 1220 (Given - Provid er: Mariaa Miranad RN) BUpivacaine (pf) (Marcaine) (2.5 mg/mL) 0.25% [...] Routine documented in this encounter Care Teams Accounts Receivable Administrator Relationship Specialty Start Date End Date Grecia Maddox MD [address] [place] [address] PCP - General Family Medicine 05/16/18 07/14/23 documented as of this encounter
--- OUTSIDE RECORDS SUMMARY | 2023-12-28 01:41 | XMS_ITS | Encounter Summary ---
Author Organization [facility] [place] [address] Care Team Providers Care General Production Manager Name Role Phone Grecia Maddox MD Primary Care Provider [phone] Reason for Visit * Auth/Cert Specialty Diagnoses / Procedures Referred By Contyoav t Referred To Contact Diagnoses Ovarian mass OVARIAN MASS Procedures PRO LAP, RMV ADNEXAL STRUCTURE LAPAROSCOPY, REMOVAL OF ADNEXA (WRVU 11.35) Danita Small MD [facility] [place] [address] [facility] Referral ID Status Reason Start Date Expiration Date Visits Re quested Visits Authorized [id number] 1 1 Encounter Details Date Type Department Care Team (Latest Contact Info) Description 04/02/2022 6:03 AM [facility] - 04/02/2022 3:30 PM [facility] Hospital Encounter [place] [address] Danita Small MD [facility] [place] [address] S/P hysterectomy Discharge Disposition: Home Social History [...] PATIENT DISCHARGE INSTRUCTIONS Gynecologic Oncology phone number: [phone] (Nurse ext [phone] then 4; appointment ext 1 then 4). After hours and on weekends please call hospital welding machine operator at [phone] and ask for Gynecologic Oncologist information manager. Call your doctor if you develop: --A [...] Novak MD - 04/02/2022 7:08 AM EST Lining Inserter Inpatient Admission Interval Note I have reviewed the pre-procedure H&P completed by Dr. Small on 03/19/2022. (x) Condition unchanged since H&P originally performed. See interval note below. Interval Note: S: Daphne Pickard feels well today. No complaints / concerns. Denies any changes to her past medical or past surgical history. No new medications or allergies. Anticipating same day surgery. Preferred pharmacy is [facility] in [place]. O: BP 120/80 Pulse 67 Temp 36.7 [...] To be discussed with Dr. Small, Attending Auto Winder Oncologist Cordelia Novak MD, PGY3 04/02/2022 Associated [...] Operative Note Patient Name: Daphne Pickard : [id number] MR#: [id number] Case Date: 04/02/2022 Surgeon: Surgeon(s) and Role: [...] Small MD - 04/02/2022 8:16 AM EST [facility] Operative Note Patient Name: Daphne Pickard : [id number] MR#: [id number] Case Date: 04/02/2022 Surgeon: Surgeon(s) and Role: [...] AM EDT Appointment Hematology [place] [address] 01/31/2024 10:20 AM EDT Office Visit [place] [address] Danita Small MD [facility] [place] [address] 08/01/2024 11:30 AM EDT Office Visit Dermatology at [address] [place] [address] Phan Engle MD [facility] DR J[place] [address] documented as of this encounter Procedures Procedure [...] TO PATHOLOGY Routine 04/02/2022 9:19 AM EST NON-DEPUTY SHERIFF GENERALIST/BAILIFF FINAL REPORT Routine 04/02/2022 9:10 AM EST SPECIMEN TO PATHOLOGY Routine 04/02/2022 9:10 AM EST CYTOPATHOLOGY NON-GYNECOLOGICAL Routine 04/02/2022 9:10 AM EST SURGICAL PATHOLOGY REPORT Routine 04/02/2022 8:55 AM EST SPECIMEN TO PATHOLOGY STAT 04/02/2022 8:55 AM EST Laparoscopy W Tot Hysterectuterus <=250 Gram W Tube/Ovary (62324) Yes 04/02/2022 7:32 AM EST OVARIAN MASS POCT GLUCOSE Routine 04/02/2022 6:30 AM EST documented in this encounter Results * Specimen to Pathology (04/02/2022 10:41 AM EST) AP Specimen 04/02/2022 10:4 1 AM EST 04/02/2022 10:41 AM EST Narrative [facility] - 04/02/2022 10:41 AM EST Specimen requisition ordered. ??Separate Pathology report to follow Danita Small MD PATHOLOGY/CYTOLOGY ORDERABLES [facility] [place] [address] * POCT Glucose (04/02/2022 10:40 AM EST) Glucose, POC 137 65 - 199 mg/dL [facility] Comment: Supplemental ranges: <140 mg/dL before meals <180 mg/dL all other times of the day Blood 04/02/2022 10:4 0 AM EST 04/02/2022 10:40 AM EST Narrative Authorizing Provider Result Carmenza Small MD POINT OF CARE TEST ORDERABLES Performing Organization Address [facility] Co de Phone Number [facility] [place] [address] * Specimen to Pathology (04/02/2022 10:25 AM EST) AP Specimen 04/02/2022 10:2 5 AM EST 04/02/2022 10:25 AM EST Narrative [facility] - 04/02/2022 10:25 AM EST Specimen requisition ordered. ??Separate Pathology report to follow Authorizing Provider Result Carmenza Small MD PATHOLOGY/CYTOLOGY ORDERABLES Performing Organization Address [facility]/ZIP Co de Phone Number [facility] [place] [address] * Specimen to Pathology (04/02/2022 10:01 AM EST) AP Specimen 04/02/2022 10:0 1 AM EST 04/02/2022 10:01 AM EST Narrative [facility] - 04/02/2022 10:01 AM EST Specimen requisition ordered. ??Separate Pathology report to follow Authorizing Provider Result Carmenza Small MD PATHOLOGY/[place] [address] * Specimen to Pathology (04/02/2022 10:01 AM EST) AP Specimen 04/02/2022 10:0 1 AM EST 04/02/2022 10:01 AM EST Narrative [facility] - 04/02/2022 10:01 AM EST Specimen requisition ordered. ??Separate Pathology report to follow Authorizing Provider Result Carmenza Small MD PATHOLOGY/CYTOLOGY ORDERABLES Performing Organization Address [facility] [place] [address] * Specimen to Pathology (04/02/2022 10:01 AM EST) AP Specimen 04/02/2022 10:0 1 AM EST 04/02/2022 10:01 AM EST Narrative [facility] - 04/02/2022 10:01 AM EST Specimen requisition ordered. ??Separate Pathology report to follow Authorizing Provider Result Carmenza Small MD PATHOLOGY/CYTOLOGY ORDERABLES Performing Organization Address City/[facility] [place] [address] * Specimen to Pathology (04/02/2022 9:19 AM EST) AP Specimen 04/02/2022 9:19 AM EST 04/02/2022 9:19 AM EST Narrative [facility] - 04/02/2022 9:19 AM EST Specimen requisition ordered. ??Separate Pathology report to follow Authorizing Provider Result Carmenza Small MD PATHOLOGY/CYTOLOGY ORDERABLES Performing Organization Address City/[facility]/ZIP Co de Phone Number [facility] [place] [address] * Non-Auto Winder Final Report (04/02/2022 9:10 AM EST) Diagnosis Discussion [id number] ? Location: [facility]; A The signing pathologist has (i) examined the relevant preparation(s) for the specimen(s) and (ii) rendered or confirmed the diagnosis(es). . ? Non-Auto Winder Final DIAGNOSIS Negative for Malignancy Electronically signed by: ?Parul Sibley MD Verified: ??04/06/2022 11:59 ??Pathologist Performed at: ??-[facility] Dept. of Pathology, [place] [address] Flight Test Shop Mechanic: Jenelle Valdes MD, AP, ??CLIA Certificate: [id number] DISCUSSION Pelvic wash: Rare mesothelial cells with [...] Cell Block 1. 04/06/2022 11:59 AM EST [facility] Pelvic Washing 04/02/2022 9: 10 AM EST 04/02/2022 9:10 AM EST Danita Small MD PATHOLOGY/CYTOLOGY ORDERABLES [facility] [place] [address] * Cytopathology Non-Gynecological (04/02/2022 9:10 AM EST) AP Specimen 04/02/2022 9:10 AM EST 04/02/2022 9:10 AM EST Narrative [facility] - 04/02/2022 9:10 AM EST Specimen requisition ordered. ??Separate Pathology report to follow Danita Small MD PATHOLOGY/CYTOLOGY ORDERABLES Performing Organization Address [facility] Co de Phone Number [facility] [place] [address] * Specimen to Pathology (04/02/2022 9:10 AM EST) AP Specimen 04/02/2022 9:10 AM EST 04/02/2022 9:10 AM EST Narrative [facility] - 04/02/2022 9:10 AM EST Specimen requisition ordered. ??Separate Pathology report to follow Danita Small MD PATHOLOGY/CYTOLOGY ORDERABLES Performing Organization Address [facility] [place] [address] * Surgical Pathology Report (04/02/2022 8:55 AM EST) Final Diagnosis [id number] ? Location: [facility]; The signing pathologist has (i) [...] Aniceto Verified: ??04/21/2022 12:41 ??Pathologist Performed at: ??-[facility] Dept. of Pathology, [place] [address] Flight Test Shop Mechanic: Jenelle Valdes MD, AP, ??CLIA Certificate: [id number] SYNOPTIC Specimen ? Procedure: ??Total hysterectomy and [...] in available in the Laboratory for Clinical [employer] ([facility]) if the clinical [...] ?Result (Positive/Negative) B3 ?ER ? positive B3 ?ID ? positive B3 ?P53 ?wild type expression [...] x 3 cm aggregate. ?? Outer Surface: [place]-white, disrupted. ?? Cut Surface: Aggregate of rubbery pink-white solid tissues, smooth cyst wall , and ??admixed softer, solid pale-soler tissues aggregating 3.5 x 2.6 x 1.0 cm. Right Fallopian Tube: 6.8 x 0.5 cm, fimbriated. Sections/Processing: The following tissue is submitted for frozen section: FS 1-shared services representative right ovary. Thoracic Surgeon sections in 12 cassettes as follows: ?A1: [...] parenchyma identified. No identified fallopian tube. Sections/Processing: Thoracic Surgeon sections in 7 cassettes labeled B1-B7. C - Labeled/Fixative: Left tube and ovary, fresh. Tissue Description: Intact, salpingo-oophorectom y. LEFT OVARY ?? Size: 2.0 x 2.0 x 1.3 cm. ?? Outer Surface: [place]-red, Abundant adhesions. ?? Cut Surface: Central smooth-walled cyst measuring 1.2 x 1.0 x 0.8 cm. Left Fallopian Tube: 6.2 x 0.5 cm, fimbriated. Sections/Processing: Thoracic Surgeon sections in 6 cassettes as follows: ?C1-C3: ??Left ovary, shared services representative ?C4-C6: ??Left fallopian tube, entirely submitted D - Labeled/Fixative: Omental biopsy, fresh. Quantity/Size: Single, 6.0 x 4.7 x 1.0 cm. Tissue Description: Portion of fibroadipose tissue in keeping with omentum. No discrete lesions identified. Sections/Processing: Thoracic Surgeon sections in 3 cassettes labeled D1-D3. E [...] 2.5 cm Os: 0.6 cm, circular Sections/Processing: Thoracic Surgeon sections in 5 cassettes as follows: ?H1: [...] Verified: ??04/02/2022 9:34 ?? Pathologist Performed at: ??-[facility] Dept. of Pathology, [facility] [address] This intraoperative consultation should be interpreted as a preliminary diagnosis pending review of the entire specimen and special studies, if any. A final Surgical Pathology report will follow this preliminary Frozen Section report(s). 04/21/2022 12:41 PM EST [facility] OVARIAN PART / Unknown 04/02/2022 [...] Small MD PATHOLOGY/CYTOLOGY ORDERABLES Performing Organization Address [facility]/ZIP Co de Phone Number [facility] [place] [address] * Specimen to Pathology (04/02/2022 8:55 AM EST) AP Specimen 04/02/2022 8:55 AM EST 04/02/2022 8:55 AM EST Narrative [facility] - 04/02/2022 8:55 AM EST Specimen requisition ordered. ??Separate Pathology report to follow Danita Small MD PATHOLOGY/CYTOLOGY ORDERABLES Performing Organization Address [facility] Co wy Phone Number [facility] [place] [address] * (ABNORMAL) POCT Glucose (04/02/2022 6:30 AM EST) Glucose, POC 64(L) 65 - 199 mg/dL [facility] Comment: Supplemental ranges: <140 mg/dL before meals <180 mg/dL all other times of the day Blood 04/02/2022 6:30 AM EST 04/02/2022 6:30 AM EST Danita Small MD POINT OF CARE TEST ORDERABLES Performing Organization Address City/State/[facility] [place] [address] documented in this encounter Visit Diagnoses Diagnosis [...] EVERY 10 MIN PRN, Starting on Juliette 22 at 1128, Until Juliette 11 at 1559, Pain, For Moderate to Severe [...] on Juliette 04/02/22 at 1124, Until Juliette 11 at 1803, Pain, - If multiple pain [...] EVERY 10 MIN PRN, Starting on Juliette 11 at 1128, Until Juliette 11 at 1559, Pain, For Mild to Moderate [...] Routine documented in this encounter Care Teams General Production Manager Relationship Specialty Start Date End Date Grecia Maddox MD [address] [place] [address] PCP - General Family Medicine 05/16/18 07/14/23 documented as of this encounter
--- OUTSIDE RECORDS SUMMARY | 2023-12-28 01:41 | XMS_ITS | Encounter Summary ---
Author Organization [place] [address] Care Team Providers Care Flame Planer Name Role Phone Grecia Maddox MD Primary Care Provider [phone] Encounter Details Date Type Department Care Team (Latest Contact Info) Description 10/30/2022 8:57 AM EDT - 10/30/2022 11:59 PM EDT Hospital Encounter Hematology [place] [address] Endometrial cancer Discharge Disposition: Home Social History [...] AM EDT Appointment Hematology [place] [address] 01/31/2024 10:20 AM EDT Office Visit [place] [address] Rebecca Small MD [facility] [place] [address] 08/01/2024 11:30 AM EDT Office Visit Dermatology at [address] [address] Phan Engle MD [facility] DR [place] [address] documented as of this encounter Procedures Procedure Name Priority Date/Time Associated Diagnosis Comments CANCER ANTIGEN 125 Routine 10/30/2022 9: 24 AM EDT Endometrial cancer documented in this encounter Results * Cancer Antigen 125 (10/30/2022 9:24 AM EDT) CA 125 9.4 <=38.1 unit/mL [facility] Comment: CA 125 Reference Interval [...] Lab Rebecca Small MD CHEMISTRY ORDERABL ES [facility] [place] [id number] documented in this encounter Visit Diagnoses Diagnosis Endometrial cancer Malignant neoplasm of corpus uteri, except isthmus documented in this encounter Care Teams Flame Planer Relationship Specialty Start Date End Date Grecia Maddox MD [address] [place] [address] PCP - General Family Medicine 05/16/18 07/14/23 documented as of this encounter
--- OUTSIDE RECORDS SUMMARY | 2023-12-28 01:41 | XMS_ITS | Encounter Summary ---
[place] [address] Care Team Providers Care Snailer Name Role Phone Grecia Maddox MD Primary Care Provider [phone] Encounter Details Date Type Department Care Team (Late st Contact Info) Description 07/29/2022 Notes Only [place] [address] Adina Du, RN Social History Tobacco Use [...] PT faxed to Dani Rodriguez PT in [facility]. documented in this encounter Plan of Treatment Upcoming Encounters Date Type Department Care Team (Late st Contact Info) Description 01/31/2024 9:15 AM EDT Appointment Hematology [place] [address] 01/31/2024 10:20 AM EDT Office Visit [place] [address] Rebecca Small MD [facility] [place] [address] 08/01/2024 11:30 AM EDT Office Visit Dermatology at [facility] [address] [place] [address] Phan Engle MD [facility] DR JESS HERNANDE[place] [address] documented as of this encounter Visit Diagnoses Not on filedocumented in this encounter Care Teams Snailer Relationship Specialty Start Date End Date Grecia Maddox MD [address] [place] [address] PCP - General Family Medicine 05/16/18 07/14/23 documented as of this encounter
--- OUTSIDE RECORDS SUMMARY | 2023-12-28 01:41 | XMS_ITS | Encounter Summary ---
Author Organization [facility] [place] [address] Care Team Providers Care Sweater Operator Name Role Phone Grecia Maddox MD Primary Care Provider [phone] Encounter Details Date Type Department Care Team (Late st Contact Info) Description 11/02/2022 Orders Only [place] [address] Beverly Pillai, RN Social History Tobacco Use [...] AM EDT Appointment Hematology [place] [address] 01/31/2024 10:20 AM EDT Office Visit [place] [address] Rebecca Small MD [facility] [place] [address] 08/01/2024 11:30 AM EDT Office Visit Dermatology at [facility] [address] [place] [address] Phan Engle MD [facility] DR JESS HERNANDEZ[place] [address] documented as of this encounter Visit Diagnoses Not on filedocumented in this encounter Care Teams Sweater Operator Relationship Specialty Start Date End Date Grecia Maddox MD [address] [place] [address] PCP - General Family Medicine 05/16/18 07/14/23 documented as of this encounter
--- OUTSIDE RECORDS SUMMARY | 2023-12-28 01:41 | XMS_ITS | Encounter Summary ---
Author Organization [facility] [place] [address] Care Team Providers Care Snuff Maker Name Role Phone Grecia Maddox MD Primary Care Provider [phone] Encounter Details Date Type Department Care Team (Latest Contact Info) Description 07/24/2022 11:46 AM EST - 07/24/2022 11:59 PM [facility] Hospital Encounter Hematology [place] [address] Ovarian mass Discharge Disposition: Home Social History [...] AM EDT Appointment Hematology [place] [address] 01/31/2024 10:20 AM EDT Office Visit [place] [address] Rebecca Small MD [facility] [place] [address] 08/01/2024 11:30 AM EDT Office Visit Dermatology at [place] [address] [place] [address] Phan Engle MD [facility] DR JESS HERNAN[place] [address] documented as of this encounter Procedures Procedure Name Priority Date/Time Associated Diagnosis Comments HC CARBOHYDRATE ANTIGEN 19-9 Routine 07/24/2022 11:53 AM EST Ovarian mass HC VENIPUNCTURE Routine 07/24/2022 11:53 AM EST Ovarian mass documented in this encounter Results * Carbohydrate Antigen 19-9 (07/24/2022 11:53 AM EST) CA 19-9 7.2 <=35.0 u/ml [facility] Comment: This result was generated using a Tammy Marcos immunoassay. ??Results obtained from other methods or manufacturers cannot be used interchangeably with this method. Blood 07/24/2022 11:5 3 AM EST 07/24/2022 12:01 PM EST Narrative Resulting Agency Comment Spec In Lab Rebecca Small MD CHEMISTRY ORDERABL ES Performing Organization Address [facility] Co de Phone Number [facility] [place] [address] * Cancer Antigen 125 (07/24/2022 11:53 AM EST) CA 125 8.0 <=38.1 unit/mL [facility] Comment: CA 125 Reference Interval [...] CHEMISTRY ORDERABL ES Performing Organization Address City/[facility] Co de Phone Number [facility] [place] [address] documented in this encounter Visit Diagnoses Diagnosis Ovarian mass Unspecified noninflammatory disorder of ovary, fallopian tube, and broad ligament documented in this encounter Care Teams Snuff Maker Relationship Specialty Start Date End Date Grecia Maddox MD [address] [place] [address] PCP - General Family Medicine 05/16/18 07/14/23 documented as of this encounter
--- OUTSIDE RECORDS SUMMARY | 2023-12-28 01:41 | XMS_ITS | Encounter Summary ---
Author Organization [facility] [place] [address] Care Team Providers Care Penciller Name Role Phone Grecia Maddox MD Primary Care Provider [phone] Encounter Details Date Type Department Care Team (Latest Contact Info) Description 01/29/2023 4:00 PM EDT TH Visit (TeleHealth) [place] [address] Danita Martinez MD [facility] [place] [address] Malignant neoplasm of right ovary Social History [...] 4:00 PM EDT Division of [place]nec[place] [address] Surveillance Visit: Patient Active Problem List Diagnosis [...] AM EDT Appointment [place] [address] 01/31/2024 10:20 AM EDT Office [place] [address] Danita Martinez MD [facility] [place] [address] 08/01/2024 11:30 AM EDT Office Visit Dermatology at [facility] [address] [place] [address] Phan Engle MD [facility] DR JESS HERNA[place] [address] documented as of this encounter Visit Diagnoses Diagnosis Malignant neoplasm of right ovary Malignant neoplasm of ovary documented in this encounter Care Teams Penciller Relationship Specialty Start Date End Date Grecia Maddox MD [address] [place] [address] PCP - General Family Medicine 05/16/18 07/14/23 documented as of this encounter
--- OUTSIDE RECORDS SUMMARY | 2023-12-28 01:41 | XMS_ITS | Encounter Summary ---
Author Organization [facility] [place] [address] Care Team Providers Care Biology Faculty Member Name Role Phone Grecia Maddox MD Primary Care Provider [phone] Encounter Details Date Type Department Care Team (Late st Contact Info) Description 11/07/2021 Ancillary Procedure [place] [address] Disha Hayden [address] [place] [address] Social History Tobacco Use Types [...] AM EDT Appointment Hematology [place] [address] 01/31/2024 10:20 AM EDT Office Visit Gynecology [place] [address] Rebecca Small MD [facility] [place] [address] 08/01/2024 11:30 AM EDT Office Visit Dermatology at [address] [place] [address] Phan Engle MD [facility] [place] [address] documented as of this encounter Procedures Procedure Name Priority Date/Time Associated Diagnosis Comments FILM LIBRARY STORAGE ONLY MAMMO Routine 11/07/2021 12:00 AM EDT documented in this encounter Results * Film Library- Storage Only Mammo (11/07/2021 12:00 AM EDT) Narrative [facility] - 12/17/2023 10:00 AM EDT This exam is auto-finalizing. It's purpose is for storage only. Disha Hayden Davin FILM LIBRARY OR DERABLES Performing Organization Address City/State/[facility] Co de Phone Number [place], [place] documented in this encounter Visit Diagnoses Not on filedocumented in this encounter Care Teams Biology Faculty Member Relationship Specialty Start Date End Date Grecia Maddox MD [address] [place] [address] PCP - General Family Medicine 05/16/18 07/14/23 documented as of this encounter
--- OUTSIDE RECORDS SUMMARY | 2023-12-28 01:41 | XMS_ITS | Encounter Summary ---
Author Organization [facility] Address [facility] [place] [address] Care Team Providers Care Fish Hatchery Specialist Name Role Phone Grecia Maddox MD Primary Care Provider [phone] Encounter Details Date Type Department Care Team (Latest Contact Info) Description 04/20/2022 Multidisciplinary Ca re Committee [place] [address] Rebecca Small MD [facility] [place] [address] Social History Tobacco Use Types Packs/Day Years [...] AM EDT Appointment Hematology [place] [address] 01/31/2024 10:20 AM EDT Office Visit [place] [address] Rebecca Small MD [facility] [place] [address] 08/01/2024 11:30 AM EDT Office Visit Dermatology at [facility] [address] [place] [address] Phan Engle MD [facility] DR JESS [place] [address] documented as of this encounter Visit Diagnoses Not on filedocumented in this encounter Care Teams Fish Hatchery Specialist Relationship Specialty Start Date End Date Grecia Maddox MD [address] [place] [address] PCP - General Family Medicine 05/16/18 07/14/23 documented as of this encounter
--- OUTSIDE RECORDS SUMMARY | 2023-12-28 01:42 | XMS_ITS | Encounter Summary ---
[place] [address] Care Team Providers Care Hassock Maker Name Role Phone Keiko Reddy MD Primary Care Provider [phone] Reason for Visit * Reason Onset Date Comments Referral, Vna 01/12/2018 referral placed - patient to call back with preferred agency. Encounter Details Date Type Department Care Team (Late st Contact Info) Description 01/12/2018 Telephone [place] [address] Tre Matos, neurodiagnostic technologist, Vna (referral placed - patient to call [...] AM EDT Appointment Hematology [place] [address] 01/31/2024 10:20 AM EDT Office Visit [place] [address] Rebecca Small MD [facility] [place] [address] 08/01/2024 11:30 AM EDT Office Visit Dermatology at [place] [address] [place] [address] Phan Engle MD [facility] DR JESS [place] [address] documented as of this encounter Visit Diagnoses Not on filedocumented in this encounter Care Teams Hassock Maker Relationship Specialty Start Date End Date Keiko Reddy MD [address] [address] PCP - General Family Medicine 06/18/17 05/15/18 documented as of this encounter
--- OUTSIDE RECORDS SUMMARY | 2023-12-28 01:42 | XMS_ITS | Encounter Summary ---
Author Organization [facility] Address [facility] [place] [id number] Care Team Providers Care Row Boss Name Role Phone Keiko Reddy MD Primary Care Provider [phone] Reason for Referral * Physical Therapy (Routine) - Specialty Diagnoses / Procedures Referred By Contac t Referred To Contact Diagnoses Closed fracture of proximal end of right tibia, unspecified fracture morphology, initial encounter Jed Her PA [facility] [place] [address] Referral ID Status Reason Start Date Expiration Date V isits Requested Visits Authorized [id number] Evaluate and Treat 01/28/2018 07/27/2018 12 12 * Physical Therapy (Routine) - Specialty Diagnoses / Procedures Referred By Contac t Referred To Contact Diagnoses Closed displaced fracture of right acetabulum, unspecified portion of acetabulum, initial encounter Jed Her PA [facility] [place] [address] Referral ID Status Reason Start Date Expiration Date V isits Requested Visits Authorized [id number] Evaluate and Treat 01/28/2018 07/27/2018 12 12 Reason for Visit * Reason Comments Follow Up Surgery Encounter Details Date Type Department Care Team (Late st Contact Info) Description 01/28/2018 9:30 AM EDT Office Visit Orthopaedics at [facility] [place] [address] Jed Her PA [facility] [place] [address] Closed displaced fracture of right acetabulum, unspecified [...] She is wheelchair-bound and seen in a Hutchinson brace locked at 0??. Daphne has been discharged home and working with [facility] for home visits. No fevers, chills, nausea, [...] of inflammation is seen. ?? Questionnaire Responses: [facility] Surgical Postop Visit 01/04/2018 PROMIS-10 General Health [...] for active assisted knee range of motion. Hutchinson brace is to be locked at 30-40?? PT order for hip flexion and extension only handed All questions were answered. Signed: NIDIA Gibbs 01/28/2018 documented in this encounter Plan of Treatment Upcoming Encounters Date Type Department Care Team (Late st Contact Info) Description 01/31/2024 9:15 AM EDT Appointment [place] [address] 01/31/2024 10:20 AM EDT Office Visit [place] [address] Rebecca Small MD [facility] DR [place] [address] 08/01/2024 11:30 AM EDT Office Visit Dermatology at [address] [address] Phan Engle MD [facility] DR JESS HERNAN[place] [address] Scheduled Referrals Name Type Priority Associated Diagnoses [...] encounter documented in this encounter Care Teams Row Boss Relationship Specialty Start Date End Date Keiko Reddy MD 8 [facility] [address] [place] [address] PCP - General Family Medicine 06/18/17 05/15/18 documented as of this encounter
--- OUTSIDE RECORDS SUMMARY | 2023-12-28 01:42 | XMS_ITS | Encounter Summary ---
Author Organization [facility] [place] [address] Care Team Providers Care Distance Education Coordinator Name Role Phone Keiko Reddy MD Primary Care Provider [phone] Reason for Visit * Reason Onset Date Comments Appointment 02/09/2018 Encounter Details Date Type Department Care Team (Late st Contact Info) Description 02/09/2018 [place] [address] Reinaldo Romero MD [facility] [place] [address] Appointment Social History Tobacco Use Types Packs/Day [...] AM EDT Appointment [place] [address] 01/31/2024 10:20 AM EDT Office Visit [place] [address] Rebecca Small MD [facility] [place] [address] 08/01/2024 11:30 AM EDT Office Visit Dermatology at [facility] [address] [place] [address] Phan Engle MD [facility] DR [place] [address] documented as of this encounter Visit Diagnoses Not on filedocumented in this encounter Care Teams Distance Education Coordinator Relationship Specialty Start Date End Date Keiko Reddy MD [address] [address] PCP - General Family Medicine 06/18/17 05/15/18 documented as of this encounter
--- OUTSIDE RECORDS SUMMARY | 2023-12-28 01:42 | XMS_ITS | Encounter Summary ---
Author Organization [facility] Address [facility] [place] [address] Care Team Providers Care Associate Relations Specialist Name Role Phone Keiko Reddy MD Primary Care Provider [phone] Encounter Details Date Type Department Care Team (Late st Contact Info) Description 02/17/2018 Orders Only Orthopaedics at [place] [phone] Reinaldo Romero MD [facility] [place] [address] Wrist fracture, closed, right, with routine healing, [...] AM EDT Appointment Hematology and Oncology at [place] [phone] 01/31/2024 10:20 AM EDT Office Visit Gynecology Oncology at [place] [address] Rebecca Small MD [facility] [place] [address] 08/01/2024 11:30 AM EDT Office Visit Dermatology at [facility] [address] [place] [address] Phan Engle MD [facility] [place] [address] documented as of this encounter Results * [...] encounter documented in this encounter Care Teams Associate Relations Specialist Relationship Specialty Start Date End Date Keiko Reddy MD [address] [address] PCP - General Family Medicine 06/18/17 05/15/18 documented as of this encounter
--- OUTSIDE RECORDS SUMMARY | 2023-12-28 01:42 | XMS_ITS | Encounter Summary ---
Author Organization [facility] Address [facility] [place] [address] Care Team Providers Care Physician [facility] Name Role Phone Disha Hayden Primary Care Provider Encounter Details Date Type Department Care Team (Late st Contact Info) Description 02/09/2018 Orders [place] [address] Good Aquino MD [facility] [place] [address] Right wrist fracture, with routine healing, subsequent [...] AM EDT Appointment H[place]ology [place] [address] 01/31/2024 10:20 AM EDT Office Visit [place] [address] Rebecca Small MD [facility] [place] [address] 08/01/2024 11:30 AM EDT Office Visit Dermatology at [facility] [place] [address] Phan Engle MD [facility] [place] [address] documented as of this encounter Visit Diagnoses Diagnosis Right wrist fracture, with routine healing, subsequent encounter documented in this encounter Care Teams Physician [facility] Relationship Specialty Start Date End Date Disha Hayden [address] [place] [address] PCP - General Family Medicine 07/15/23 documented as of this encounter
--- OUTSIDE RECORDS SUMMARY | 2023-12-28 01:42 | XMS_ITS | Encounter Summary ---
Author Organization [facility] Address [facility] [place] [address] Care Team Providers Care Manager Enrollment Name Role Phone Keiko Reddy MD Primary Care Provider [phone] Encounter Details Date Type Department Care Team (Latest Contact Info) Description 01/04/2018 8:53 AM EDT - 01/04/2018 11:59 PM EDT Hospital Encounter XRay at [address] [place] [address] Reinaldo Romero MD [facility] [place] [address] Discharge Disposition: Home Social History Tobacco Use [...] AM EDT Appointment Hematology [place] [address] 01/31/2024 10:20 AM EDT Office Visit [place] [address] Rebecca Small MD [facility] [place] [address] 08/01/2024 11:30 AM EDT Office Visit Dermatology at [facility] [address] [place] [address] Phan Engle MD [facility] [place] [address] documented as of this encounter Procedures Procedure Name Priority Date/Time Associated Diagnosis Comments XR KNEE AP & LAT RIGHT Routine 01/04/2018 9:39 AM EDT documented in this encounter Results * XR Knee 1-2 Views Right (Generic) (01/04/2018 9:39 AM EDT) Anatomical Region Laterality Modality Knee Right Digital Radiogra phy Impressions 01/04/2018 11:45 AM EDT Unchanged alignment of the uncomplicated cortical smdng-odr-lvepc fixation of the tibial plateau fracture without [...] the depressed lateral tibial plateau fracture with nondenominational of near-anatomic alignment. No radiographic evidence of [...] the depressed lateral tibial plateau fracture with nondenominational ofnear-anatomic alignment. No radiographic evidence of hardware complication. The fracturelines remain visible on the AP view. Interval resolution of the postoperative soft tissue air. IMPRESSION Unchanged alignment of the uncomplicated cortical ftrwz-udo-awdgx fixationof the tibial plateau fracture without radiographic evidence of hardware complication. I have personally reviewed the image(s) and the residents interpretationand agree with the findings, Anisa Briscoe at 01/04/2018 11:45 AM Reinaldo Romero MD IMG DX ORDERABLES documented in this encounter Visit Diagnoses Not on filedocumented in this encounter Care Teams Manager Enrollment Relationship Specialty Start Date End Date Keiko Reddy MD [address] [address] PCP - General Family Medicine 06/18/17 05/15/18 documented as of this encounter
--- OUTSIDE RECORDS SUMMARY | 2023-12-28 01:42 | XMS_ITS | Encounter Summary ---
Author Organization [facility] Address [facility] [place] [address] Care Team Providers Care Healthcare Or Medical Name Role Phone Keiko Reddy MD Primary Care Provider [phone] Reason for Visit * Reason Onset Date Comments Shoulder Pain 02/07/2018 Encounter Details Date Type Department Care Team (Late st Contact Info) Description 02/07/2018 [place] [address] Reinaldo Romero MD [facility] DR ORTHOPA[place] [address] Shoulder Pain Social History Tobacco Use Types [...] AM EDT Appointment Hematology [place] [address] 01/31/2024 10:20 AM EDT Office Visit [place] [address] Rebecca Small MD [facility] GYNECOLOGIC [place] [address] 08/01/2024 11:30 AM EDT Office Visit Dermatology at [place] [address] [place] [address] Phan Engle MD [facility] DR JESS HERNANDEZ[place] [address] documented as of this encounter Visit Diagnoses Not on filedocumented in this encounter Care Teams Healthcare Or Medical Relationship Specialty Start Date End Date Keiko Reddy MD [address] [address] PCP - General Family Medicine 06/18/17 05/15/18 documented as of this encounter
--- OUTSIDE RECORDS SUMMARY | 2023-12-28 01:42 | XMS_ITS | Encounter Summary ---
Author Organization [facility] Address [facility] [place] [address] Care Team Providers Care Hostess Name Role Phone Keiko Reddy MD Primary Care Provider [phone] Reason for Visit * Auth/Cert Specialty Diagnoses / Procedures Referred By Marie t Referred To Contact Diagnoses sutures and loki in place RUE, LLE Procedures PRO REM SUTURES W ANESTH OTHR SURGEON REMOVAL OF SUTURE UNDER ANESTHESIA, OTHER SURGEON, LOWER EXTREMITY (WRVU 0.86) Referral ID Status Reason Start Date Expiration Date Visits Re quested Visits Authorized [id number] 1 1 Encounter Details Date Type Department Care Team (Late st Contact Info) Description 01/12/2018 3:02 PM EDT Anesthesia Event [place] [address] Barbara Belle MD [facility] [place] [address] Sissy Wellington MD [facility] [place] [address] Anesthesia Record Procedure Summary Procedure Name Responsible [...] Sissy Wellington - 01/12/2018 3:34 PM EDT [facility] Department of Anesthesiology Post-procedure Note Patient: Daphne Pickard Procedure Summary Date Anesthesia Start Anesthesia Stop Room / Location 01/12/18 1502 1529 [facility] OR [facility] MAIN OR Procedure Diagnosis Surgeon [...] All Anesthesia Providers: Anesthesiologist: Barbara Belle MD Glazier Structural Glass: Sissy Wellington MD Most Recent Vitals: 01/12/18 1526 BP: Pulse: Resp: (P) 16 Temp: (P) 36.9 ??C (98.4 ??F) SpO2: Pain (P) 0 (01/12/18 1526) [facility] Level of Consciousness: Awake and Alert Pain [...] N/A 06/25/2017 COLONOSCOPY, DIAGNOSTIC performed by Kimani Roajs MD at [facility] ENDOSCOPY ??? PRO OPEN DENTAL SCHEDULER FIX ACETABULAR FX Left 12/20/2017 @OPEN TREATMENT, ACETABULAR FX (WRVU 25.41) performed by Tete Talamantes MD at [facility] MAIN OR ??? PRO OPEN RX DISTAL RADIUS FX, INTRA-ARTICULAR, 3+ FRAG Right 12/14/2017 ORIF DISTAL RADIUS, 3 OR MORE FRAGMENTS (WRVU 14.38) performed by Reinaldo Romero MD at [facility] OR ??? PRO OPEN TX TIBIAL FRACTURE PROXIMAL UNICONDYLAR Right 12/14/2017 @ORIF TIBIAL PLATEAU (PROXIMAL) UNICONDYLAR (WRVU 13.41) performed by Reinaldo Romero MD at [facility] OR Social History Substance Use Topics ??? [...] suture removal under anesthesia with Dr. Romero [facility] significant for - fall from horse resulting [...] AM EDT Appointment Hematology [place] [address] 01/31/2024 10:20 AM EDT Office Visit [place] [address] Rebecca Small MD [facility] [place] [address] 08/01/2024 11:30 AM EDT Office Visit Dermatology at [facility] [address] [place] [address] Phan Engle MD [facility] DR JESS HERNANDE[place] [address] documented as of this encounter Visit Diagnoses [...] mg documented in this encounter Care Teams Hostess Relationship Specialty Start Date End Date Keiko Rdedy MD [address] [place] [address] PCP - General Family Medicine 06/18/17 05/15/18 documented as of this encounter
--- OUTSIDE RECORDS SUMMARY | 2023-12-28 01:42 | XMS_ITS | Encounter Summary ---
Author Organization [facility] [place] [address] Care Team Providers Care Missile Inspector Preflight Name Role Phone Keiko Reddy MD Primary Care Provider [phone] Encounter Details Date Type Department Care Team (Late st Contact Info) Description 04/12/2018 Orders [place] [address] Silke Bojorquez RN Social History Tobacco Use [...] AM EDT Appointment Hematology [place] [address] 01/31/2024 10:20 AM EDT Office Visit [place] [address] Rebecca Small MD [facility] [place] [address] 08/01/2024 11:30 AM EDT Office Visit Dermatology at [address] [place] [address] Phan Engle MD [facility] DR JESS [place] [address] documented as of this encounter Visit Diagnoses Not on filedocumented in this encounter Care Teams Missile Inspector Preflight Relationship Specialty Start Date End Date Keiko Reddy MD [address] [address] PCP - General Family Medicine 06/18/17 05/15/18 documented as of this encounter
--- OUTSIDE RECORDS SUMMARY | 2023-12-28 01:42 | XMS_ITS | Encounter Summary ---
Author Organization [facility] Address [facility] [place] [address] Care Team Providers Care Central Aisle Cashier Name Role Phone Keiko Reddy MD Primary Care Provider [phone] Reason for Visit * Reason Onset Date Comments Post Procedure Call 01/06/2018 Encounter Details Date Type Department Care Team (Late st Contact Info) Description 01/06/2018 Telephone [place] [address] Heather Colon PA [facility] [place] [address] Post Procedure Call Social History Tobacco Use [...] staple removal. Best number to reach you [phone] documented in this encounter Plan of Treatment Upcoming Encounters Date Type Department Care Team (Late st Contact Info) Description 01/31/2024 9:15 AM EDT Appointment Hematology [place] [address] 01/31/2024 10:20 AM EDT Office Visit [place] [address] Rebecca Small MD [facility] [place] [address] 08/01/2024 11:30 AM EDT Office Visit Dermatology at [facility] [address] [place] [address] Phan Engle MD [facility] DR J[place] [address] documented as of this encounter Visit Diagnoses Not on filedocumented in this encounter Care Teams Central Aisle Cashier Relationship Specialty Start Date End Date Keiko Reddy MD [address] [address] PCP - General Family Medicine 06/18/17 05/15/18 documented as of this encounter
--- OUTSIDE RECORDS SUMMARY | 2023-12-28 01:42 | XMS_ITS | Encounter Summary ---
Author Organization [facility] [place] [address] Care Team Providers Care Automotive Quality Engineer Name Role Phone Keiko Reddy MD Primary Care Provider [phone] Encounter Details Date Type Department Care Team (Late st Contact Info) Description 02/17/2018 Orders [place] [address] Reinaldo Romero MD [facility] [place] [address] Closed fracture of proximal end of right [...] AM EDT Appointment Hematology [place] [address] 01/31/2024 10:20 AM EDT Office Visit [place] [address] Rebecca Small MD [facility] [place] [address] 08/01/2024 11:30 AM EDT Office Visit Dermatology at [facility] [address] [place] [address] Phan Egnle MD [facility] [place] [address] documented as of this encounter Results * [...] Radiology, at106/12/2017 11:44 AM Reinaldo Romero MD [facility] ORDERABLES * XR Knee 1-2 Views [...] Radiology, at106/12/2017 11:30 AM Reinaldo Romero MD [facility] ORDERABLES documented in this encounter Visit [...] sequela documented in this encounter Care Teams Automotive Quality Engineer Relationship Specialty Start Date End Date Keiko Reddy MD [address] [address] PCP - General Family Medicine 06/18/17 05/15/18 documented as of this encounter
--- OUTSIDE RECORDS SUMMARY | 2023-12-28 01:42 | XMS_ITS | Encounter Summary ---
Author Organization [facility] Address [facility] [place] [address] Care Team Providers Care Security Installer Name Role Phone Keiko Reddy MD Primary Care Provider [phone] Reason for Referral * Physical Therapy (Routine) - Specialty Diagnoses / Procedures Referred By Marie diaz Referred To Contact Physical Therapy Diagnoses Radius/ulna fracture, right, closed, initial encounter Jed Her PA [facility] [place] [address] Referral ID Status Reason Start Date Expiration Date V isits Requested Visits Authorized [id number] Evaluate and Treat 02/02/2018 08/01/2018 20 20 Encounter Details Date Type Department Care Team (Late st Contact Info) Description 02/02/2018 [place] [phone] Jed Her PA [facility] [place] [address] Social History Tobacco Use Types Packs/Day Years [...] for right wrist generated and faxed to [facility] at [phone]. documented in this encounter Plan of Treatment Upcoming Encounters Date Type Department Care Team (Late st Contact Info) Description 01/31/2024 9:15 AM EDT Appointment [place]emat[place] [address] 01/31/2024 10:20 AM EDT Office Visit [place] [address] [facility] GYNECOLOGIC [place] [address] 08/01/2024 11:30 AM EDT Office Visit Dermatology at [facility] [address] [place] [address] [facility] DR JESS HERNANDE[place] [address] Scheduled Referrals Name Type Priority Associated Diagnoses Orde r Schedule Referral to Physical Therapy Outpatient Referral Routine 12/14/2017 ORIF right distal radius fracture (Dr. Romero) Ordered: 02/02/2018 documented as of this encounter Visit Diagnoses Diagnosis 12/14/2017 ORIF right distal radius fracture (Dr. Roemro) documented in this encounter Care Teams Security Installer Relationship Specialty Start Date End Date Kieko Reddy MD 8 [facility] [address] [place] [address] PCP - General Family Medicine 06/18/17 05/15/18 documented as of this encounter
--- OUTSIDE RECORDS SUMMARY | 2023-12-28 01:42 | XMS_ITS | Encounter Summary ---
[place] [address] Care Team Providers Care Six Sigma Black Trainer Name Role Phone Keiko Reddy MD Primary Care Provider [phone] Encounter Details Date Type Department Care Team (Late st Contact Info) Description 01/14/2018 [place] [address] Marion Hawk, RN Social History Tobacco Use [...] help with the pain. Patient reports that [facility] did not prescribe her any medication to [...] 5 mg tablets, 60 tablets 12/[address] [facility]. Patient reports those were provided while she was at the rehabilitation facility, she did not go home with this prescription. Next visit: 01/28 hospital check with NIDIA Freeman documented in this encounter Plan of Treatment Upcoming Encounters Date Type Department Care Team (Late st Contact Info) Description 01/31/2024 9:15 AM EDT Appointment [place] [address] 01/31/2024 10:20 AM EDT Office Visit [place] [address] Rebecca Small MD [facility] [place] [address] 08/01/2024 11:30 AM EDT Office Visit Dermatology at [address] [address] Phan Engle MD [facility] DR [place] [address] documented as of this encounter Visit Diagnoses Not on filedocumented in this encounter Care Teams Six Sigma Black Trainer Relationship Specialty Start Date End Date Keiko Reddy MD [address] [address] PCP - General Family Medicine 06/18/17 05/15/18 documented as of this encounter
--- OUTSIDE RECORDS SUMMARY | 2023-12-28 01:42 | XMS_ITS | Encounter Summary ---
Author Organization [facility] Address [facility] [place] [address] Care Team Providers Care Department Secretary Name Role Phone Grecia Maddox MD Primary Care Provider [phone] Reason for Visit * Reason Onset Date Comments Letter for School/Work 05/30/2018 Encounter Details Date Type Department Care Team (Late st Contact Info) Description 05/30/2018 [place] [address] Reinaldo Romero MD [facility] [place] [address] Letter for School/Work Social History Tobacco Use [...] AM EDT Appointment [place]ematology [place] [address] 01/31/2024 10:20 AM EDT Office Visit [place] [address] Rebecca Small MD [facility] [place] [address] 08/01/2024 11:30 AM EDT Office Visit Dermatology at [facility] [address] [place] [address] Phan Engle MD [facility] DR [place] [address] documented as of this encounter Visit Diagnoses Not on filedocumented in this encounter Care Teams Department Secretary Relationship Specialty Start Date End Date Grecia Maddox MD [address] [place] [address] PCP - General Family Medicine 05/16/18 07/14/23 documented as of this encounter
--- OUTSIDE RECORDS SUMMARY | 2023-12-28 01:42 | XMS_ITS | Encounter Summary ---
Author Organization [facility] [place] [address] Care Team Providers Care Drier And Evaporator Operator Name Role Phone Keiko Reddy MD Primary Care Provider [phone] Encounter Details Date Type Department Care Team (Late st Contact Info) Description 02/09/2018 Orders [place] [address] Reinaldo Romero MD [facility] [place] [address] Right wrist fracture, with routine healing, subsequent [...] AM EDT Appointment Hematology [place] [address] 01/31/2024 10:20 AM EDT Office Visit [place] [address] Rebecca Small MD [facility] [place] [address] 08/01/2024 11:30 AM EDT Office Visit Dermatology at [facility] [address] [place] [address] Phan Engle MD [facility] DR [place] [address] documented as of this encounter Results * [...] encounter documented in this encounter Care Teams Drier And Evaporator Operator Relationship Specialty Start Date End Date Keiko Reddy MD [address] [address] PCP - General Family Medicine 06/18/17 05/15/18 documented as of this encounter
--- OUTSIDE RECORDS SUMMARY | 2023-12-28 01:42 | XMS_ITS | Encounter Summary ---
[place] [address] Care Team Providers Care Electronic Communications Technician Name Role Phone Keiko Reddy MD Primary Care Provider [phone] Reason for Visit * Reason Onset Date Comments Post-op Problem 01/20/2018 Encounter Details Date Type Department Care Team (Late st Contact Info) Description 01/20/2018 [place] [address] Ebony Blunt RMA Post-op Problem Social History [...] dry. She told me that she has [facility] and today she saw Felicita. I [...] AM EDT Appointment Hematology [place] [address] 01/31/2024 10:20 AM EDT Office Visit [place] [address] Rebecca Small MD [facility] [place] [address] 08/01/2024 11:30 AM EDT Office Visit Dermatology at [facility] [address] [place] [address] Phan Engle MD [facility] DR [place] [address] documented as of this encounter Visit Diagnoses Not on filedocumented in this encounter Care Teams Electronic Communications Technician Relationship Specialty Start Date End Date Keiko Reddy MD [address] [address] PCP - General Family Medicine 06/18/17 05/15/18 documented as of this encounter
--- OUTSIDE RECORDS SUMMARY | 2023-12-28 01:42 | XMS_ITS | Encounter Summary ---
Author Organization [facility] Address [facility] [place] [address] Care Team Providers Care Boom Stick Worker Name Role Phone Keiko Reddy MD Primary Care Provider [phone] Encounter Details Date Type Department Care Team (Latest Contact Info) Description 02/16/2018 2:29 PM EDT - 02/16/2018 11:59 PM EDT Hospital Encounter XRay at [address] [place] [address] Reinaldo Romero MD [facility] [place] [address] Right medial tibial plateau fracture, closed, with [...] AM EDT Appointment Hematology [place] [address] 01/31/2024 10:20 AM EDT Office Visit Gynecology [place] [address] Rebecca Small MD [facility] [place] [address] 08/01/2024 11:30 AM EDT Office Visit Dermatology at [address] [address] Phan Engle MD [facility] DR [place] [address] documented as of this encounter Procedures Procedure [...] encounter documented in this encounter Care Teams Boom Stick Worker Relationship Specialty Start Date End Date Keiko Reddy MD [address] [address] PCP - General Family Medicine 06/18/17 05/15/18 documented as of this encounter
--- OUTSIDE RECORDS SUMMARY | 2023-12-28 01:42 | XMS_ITS | Encounter Summary ---
Author Organization [facility] Address [facility] [place] [address] Care Team Providers Care Harness Preparer Name Role Phone Keiko Reddy MD Primary Care Provider [phone] Reason for Visit * Reason Comments Hip Injury HIP INTRAOP RADIOLOG IC EXAMINATION, UNILATERAL, W PELVIS Right Leg Fracture ORIF TIBIAL PLATEAU (PROXIMAL) UNICONDYLAR Right Arm Fracture ORIF DISTAL RADIUS, 3 OR MORE FRAGMENTS DOS 12/14/2017 Encounter Details Date Type Department Care Team (Late st Contact Info) Description 02/16/2018 3:30 PM EDT Office Visit [place] [address] Reinaldo Romero MD [facility] [place] [address] Closed fracture of right tibial plateau, initial [...] EDT Appointment Hematology [place] [address] 01/31/2024 10:20 AM EDT Office Visit Gy[place] [address] Rebecca Small MD [facility] [place] [address] 08/01/2024 11:30 AM EDT Office Visit Dermatology at [place] [address] [address] Phan Engle MD [facility] [place] [address] documented as of this encounter Visit Diagnoses Diagnosis Closed fracture of right tibial plateau, initial encounter 12/14/2017 ORIF right distal radius fracture (Dr. Romero) documented in this encounter Care Teams Harness Preparer Relationship Specialty Start Date End Date Keiko Reddy MD [address] [address] PCP - General Family Medicine 06/18/17 05/15/18 documented as of this encounter
--- OUTSIDE RECORDS SUMMARY | 2023-12-28 01:42 | XMS_ITS | Encounter Summary ---
Author Organization [facility] Address [facility] [place] [address] Care Team Providers Care Salvation [employer] Officer Name Role Phone Keiko Reddy MD Primary Care Provider Reason for Visit * Auth/Cert Specialty Diagnoses / Procedures Referred By Marie t Referred To Contact Diagnoses sutures and loki in place RUE, LLE Procedures PRO REM SUTURES W ANESTH OTHR SURGEON REMOVAL OF SUTURE UNDER ANESTHESIA, OTHER SURGEON, LOWER EXTREMITY (WRVU 0.86) Referral ID Status Reason Start Date Expiration Date Visits Re quested Visits Authorized [id number] 1 1 Encounter Details Date Type Department Care Team (Latest Contact Info) Description 01/12/2018 12:01 PM EDT - 01/12/2018 5:42 PM EDT Hospital Encounter [place] [address] Reinaldo Romero MD [facility] DR ORTHOPA[place] [address] Discharge Disposition: Home Social History Tobacco Use [...] taped at the top) to cover the Beauregard brace. DO NOT submerge the wound. Remember [...] absorb on their own. Call your doctor ([phone]) if you develop: 1. Fever greater than 100.5 2. Severe nausea or vomiting 3. Increasing pain that is not controlled by pain medications 4. Increasing redness, swelling, or drainage from incisions 5. Change in sensation Future Appointments Date Time Provider Department Center 01/28/2018 9:30 AM Jed Her PA [facility] [address] [place] [address] If you have questions or concerns: Wednesday [...] 24-Hour Pre-Operative H&P Update Daphne Pickard [id number] Patient seen in pre-op holding area today. [...] Dueñas MD - 01/12/2018 5:42 PM EDT [facility] Operative Note Patient Name: Daphne Pickard : [id number] MR#: [id number] Case Date: 01/12/2018 Surgeon: Surgeon(s) and Role: [...] year old female who presented to the [facility] Emergency Department on 12/14/17or trauma evaluation after [...] anxiety around staple removal. She presents to [facility] today for removal of loki from her lower extremity incisions under sedation. A consent form for the procedure was reviewed and signed. Procedure Description: The patient was identified in the preoperative holding area by name and date of . The proposedsites and procedures were confirmed with the patient and against the consent form. A green point hope ira was then placed on the operative extremities. The patient was brought back to the operative suite. She remained in the hospital stretcher in the supine position. All bony prominences were well padded. A timeout was held according to [facility] universal protocol and all members of the [...] wound from the tibial plateau fixation. The Bishnu brace, locked in extension, was opened and [...] Operative Note Patient Name: Daphne Pickard : [id number] MR#: [id number] Case Date: 01/12/2018 Surgeon: Surgeon(s) and Role: [...] AM EDT Appointment [place]ology [place] [address] 01/31/2024 10:20 AM EDT Office Visit [place] [address] Rebecca Small MD [facility] DR GYNECOLOGIC [place] [address] 08/01/2024 11:30 AM EDT Office Visit Dermatology at [place] [address] [place] [address] Phan Engle MD [facility] DR JESS HERNANDEZ-[place] [address] documented as of this encounter Procedures Procedure [...] HAYLEY) documented in this encounter Care Teams Salvation Army Officer Relationship Specialty Start Date End Date Keiko Reddy MD [address] [address] PCP - General Family Medicine 06/18/17 05/15/18 documented as of this encounter
--- OUTSIDE RECORDS SUMMARY | 2023-12-28 01:42 | XMS_ITS | Encounter Summary ---
Author Organization [facility] Address [facility] [place] [address] Care Team Providers Care Epic Ambulatory Analysts Name Role Phone Keiko Reddy MD Primary Care Provider [phone] Reason for Visit * Reason Comments Follow-up R tib plateau/ right distal rad/ left acetabulum ORIF DOS 12/14/17, Encounter Details Date Type Department Care Team (Late st Contact Info) Description 04/12/2018 11:30 AM EST Office [place] [address] Reinaldo Romero MD [facility] [place] [address] Trauma; Closed fracture of right tibial plateau [...] not have light duty at her job, [employer]. She needs to be able to lift [...] AM EDT Appointment [place] [address] 01/31/2024 10:20 AM EDT Office Visit [place] [address] Rebecca Small MD [facility] [place] [address] 08/01/2024 11:30 AM EDT Office Visit Dermatology at [facility] [address] [place] [address] Phan Engle MD [facility] DR JESS [place] [address] documented as of this encounter Visit Diagnoses Diagnosis Trauma Injury, other and unspecified, unspecified site Closed fracture of right tibial plateau with routine healing, subsequent encounter 12/14/2017 ORIF right distal radius fracture (Dr. Romero) Closed displaced fracture of posterior wall of left acetabulum with routine healing, subsequent encounter documented in this encounter Care Teams Epic Ambulatory Analysts Relationship Specialty Start Date End Date Keiko Reddy MD [address] [place] [address] PCP - General Family Medicine 06/18/17 05/15/18 documented as of this encounter
--- OUTSIDE RECORDS SUMMARY | 2023-12-28 01:42 | XMS_ITS | Encounter Summary ---
Author Organization [facility] Address [facility] [place] [address] Care Team Providers Care Cross Country Truck Driver Name Role Phone Keiko Reddy MD Primary Care Provider [phone] Encounter Details Date Type Department Care Team (Latest Contact Info) Description 04/12/2018 9:49 AM [facility] Hospital Encounter XRay at [address] [place] [address] Reinaldo Romero MD [facility] [place] [address] Closed nondisplaced fracture of left acetabulum with [...] AM EDT Appointment Hematology [place] [address] 01/31/2024 10:20 AM EDT Office Visit [place] [address] Rebecca Small MD [facility] [place] [address] 08/01/2024 11:30 AM EDT Office Visit Dermatology at [facility] [address] [place] [address] Phan Engle MD [facility] [place] [address] documented as of this encounter Procedures Procedure [...] encounter documented in this encounter Care Teams Cross Country Truck Driver Relationship Specialty Start Date End Date Keiko Reddy MD [address] [place] [address] PCP - General Family Medicine 06/18/17 05/15/18 documented as of this encounter
--- OUTSIDE RECORDS SUMMARY | 2023-12-28 01:42 | XMS_ITS | Encounter Summary ---
Author Organization [facility] Address [facility] [place] [address] Care Team Providers Care Conveyor Tender Concrete Mixing Plant Name Role Phone Keiko Reddy MD Primary Care Provider [phone] Encounter Details Date Type Department Care Team (Latest Contact Info) Description 01/04/2018 8:50 AM EDT - 01/04/2018 8:52 AM EDT Hospital Encounter XRay at [address] [place] [address] Reinaldo Romero MD [facility] [place] [address] Discharge Disposition: Home Social History Tobacco Use [...] AM EDT Appointment Hematology [place] [address] 01/31/2024 10:20 AM EDT Office Visit [place] [address] Rebecca Small MD [facility] [place] [address] 08/01/2024 11:30 AM EDT Office Visit Dermatology at [place] [address] [place] [address] Phan Engle MD [facility] DR J[place] [address] documented as of this encounter Procedures Procedure [...] on filedocumented in this encounter Care Teams Conveyor Tender Concrete Mixing Plant Relationship Specialty Start Date End Date Keiko Reddy MD [address] [place] [address] PCP - General Family Medicine 06/18/17 05/15/18 documented as of this encounter
--- OUTSIDE RECORDS SUMMARY | 2023-12-28 01:42 | XMS_ITS | Encounter Summary ---
Author Organization [facility] Address [facility] [place] [address] Care Team Providers Care Veterinary Assistant Name Role Phone Keiko Reddy MD Primary Care Provider [phone] Encounter Details Date Type Department Care Team (Late st Contact Info) Description 01/20/2018 Orders [place] [address] Jed Her PA [facility] [place] [address] Closed displaced fracture of posterior wall of [...] AM EDT Appointment Hematology [place] [address] 01/31/2024 10:20 AM EDT Office Visit [place] [address] Rebecca Small MD [facility] [place] [address] 08/01/2024 11:30 AM EDT Office Visit Dermatology at [facility] [address] [place] [address] Phan Engle MD [facility] DR [place] [address] documented as of this encounter Results * [...] fine bony detail. There was prior volar hnlwj-wfu-tyzzl fixation of the previously described comminuted intra-articular distal radial fracture, in unchanged anatomic alignment, without evidence of complication. The fracture lines remain partly visible, without definite interval change. Right knee: There was prior mwcxv-jvb-tysur fixation of the previously described Schatzker type [...] obscures fine bony detail. There was priorvolar xrklm-vtg-myufp fixation of the previously described comminutedintra-articular distal radial fracture, in unchanged anatomic alignment, without evidenceof complication. The fracture lines remain partly visible, without definite interval change. Right knee: There was prior honvo-cxb-vlwap fixation of the previouslydescribed Schatzker type II [...] fine bony detail. There was prior volar azjyx-blp-kvapf fixation of the previously described comminuted intra-articular distal radial fracture, in unchanged anatomic alignment, without evidence of complication. The fracture lines remain partly visible, without definite interval change. Right knee: There was prior ubqvw-dbw-njvvo fixation of the previously described Schatzker type [...] obscures fine bony detail. There was priorvolar fankj-qmt-ifvwq fixation of the previously described comminutedintra-articular distal radial fracture, in unchanged anatomic alignment, without evidenceof complication. The fracture lines remain partly visible, without definite interval change. Right knee: There was prior sbcxa-ywy-cfatz fixation of the previouslydescribed Schatzker type II [...] Romero) documented in this encounter Care Teams Veterinary Assistant Relationship Specialty Start Date End Date Keiko Reddy MD [address] [address] PCP - General Family Medicine 06/18/17 05/15/18 documented as of this encounter
--- OUTSIDE RECORDS SUMMARY | 2023-12-28 01:42 | XMS_ITS | Encounter Summary ---
Author Organization [facility] Address [facility] [place] [address] Care Team Providers Care Occupational Therapist Home Based Name Role Phone Keiko Reddy MD Primary Care Provider [phone] Encounter Details Date Type Department Care Team (Latest Contact Info) Description 04/12/2018 9:50 AM EST - 04/12/2018 11:[address] [facility] Hospital Encounter XRay at [address] [place] [address] Reinaldo Romero MD [facility] [place] [address] Closed fracture of proximal end of right [...] AM EDT Appointment Hematology [place] [address] 01/31/2024 10:20 AM EDT Office Visit Gy[place] [address] Rebecca Small MD [facility] [place] [address] 08/01/2024 11:30 AM EDT Office Visit Dermatology at [address] [address] Phan Engle MD [facility] DR JESS [place] [address] documented as of this encounter Procedures Procedure [...] sequela documented in this encounter Care Teams Occupational Therapist Home Based Relationship Specialty Start Date End Date Keiko Reddy MD [address] [address] PCP - General Family Medicine 06/18/17 05/15/18 documented as of this encounter
--- OUTSIDE RECORDS SUMMARY | 2023-12-28 01:42 | XMS_ITS | Encounter Summary ---
Author Organization [facility] Address [facility] [place] [address] Care Team Providers Care Artificial Stone Applicator Name Role Phone Keiko Reddy MD Primary Care Provider [phone] Encounter Details Date Type Department Care Team (Latest Contact Info) Description 01/04/2018 8:53 AM EDT - 01/04/2018 11:59 PM EDT Hospital Encounter XRay at [address] [place] [address] Reinaldo Romero MD [facility] [place] [address] Discharge Disposition: Home Social History Tobacco Use [...] AM EDT Appointment Hematology [place] [address] 01/31/2024 10:20 AM EDT Office Visit [place] [address] Rebecca Small MD [facility] [place] [address] 08/01/2024 11:30 AM EDT Office Visit Dermatology at [facility] [address] [place] [address] Phan Engle MD [facility] [place] [address] documented as of this encounter Procedures Procedure [...] on filedocumented in this encounter Care Teams Artificial Stone Applicator Relationship Specialty Start Date End Date Keiko Reddy MD [address] [address] PCP - General Family Medicine 06/18/17 05/15/18 documented as of this encounter
--- OUTSIDE RECORDS SUMMARY | 2023-12-28 01:42 | XMS_ITS | Encounter Summary ---
Author Organization [facility] Address [facility] [place] [address] Care Team Providers Care Sap Basis Architect Name Role Phone Keiko Reddy MD Primary Care Provider [phone] Encounter Details Date Type Department Care Team (Latest Contact Info) Description 02/16/2018 2:29 PM EDT - 02/16/2018 11:59 PM EDT Hospital Encounter XRay at [address] [place] [address] Reinaldo Romero MD [facility] [place] [address] Right wrist fracture, with routine healing, subsequent [...] AM EDT Appointment Hematology [place] [address] 01/31/2024 10:20 AM EDT Office Visit [place] [address] Rebecca Small MD [facility] [place] [address] 08/01/2024 11:30 AM EDT Office Visit Dermatology at [address] [place] [address] Phan Engle MD [facility] DR [place] [address] documented as of this encounter Procedures Procedure [...] encounter documented in this encounter Care Teams Sap Basis Architect Relationship Specialty Start Date End Date Keiko Reddy MD [address] [address] PCP - General Family Medicine 06/18/17 05/15/18 documented as of this encounter
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
--- OUTSIDE RECORDS SUMMARY | 2023-12-28 01:42 | XMS_ITS | Encounter Summary ---
Author Organization [facility] [place] [address] Care Team Providers Care Space Sciences Director Name Role Phone Keiko Reddy MD Primary Care Provider [phone] Encounter Details Date Type Department Care Team (Late st Contact Info) Description 02/17/2018 [place] [address] Reinaldo Romero MD [facility] DR [place] [address] Closed nondisplaced fracture of left acetabulum with [...] AM EDT Appointment [place] [address] 01/31/2024 10:20 AM EDT Office Visit [place] [address] Rebecca Small MD [facility] [place] [address] 08/01/2024 11:30 AM EDT Office Visit Dermatology at [facility] [address] [place] [address] Phan Engle MD [facility] [place] [address] documented as of this encounter Visit Diagnoses Diagnosis Closed nondisplaced fracture of left acetabulum with routine healing, unspecified portion of acetabulum, subsequent encounter documented in this encounter Care Teams Space Sciences Director Relationship Specialty Start Date End Date Keiko Reddy MD [address] [address] PCP - General Family Medicine 06/18/17 05/15/18 documented as of this encounter
--- OUTSIDE RECORDS SUMMARY | 2023-12-28 01:42 | XMS_ITS | Encounter Summary ---
Author Organization [facility] Address [facility] [address] Care Team Providers Care Him Specialists Name Role Phone Keiko Reddy MD Primary Care Provider Reason for Visit * Reason Onset Date Comments Pre Procedure Call 01/05/2018 Encounter Details Date Type Department Care Team (Late st Contact Info) Description 01/05/2018 Telephone [place] [address] Reinaldo Oh MD [facility] [place] [address] Pre Procedure Call Social History Tobacco Use [...] left a message for patient to call [phone] directly and schedule surgery with Dr. OH. documented in this encounter Plan of Treatment Upcoming Encounters Date Type Department Care Team (Late st Contact Info) Description 01/31/2024 9:15 AM EDT Appointment Hematology [place] [address] 01/31/2024 10:20 AM EDT Office Visit [place] [address] Rebecca Small MD [facility] [place] [address] 08/01/2024 11:30 AM EDT Office Visit Dermatology at [facility] [address] [place] [address] Phan Engle MD [facility] [place] [address] documented as of this encounter Visit Diagnoses Not on filedocumented in this encounter Care Teams Him Specialists Relationship Specialty Start Date End Date Keiko Reddy MD [address] [address] PCP - General Family Medicine 06/18/17 05/15/18 documented as of this encounter
--- OUTSIDE RECORDS SUMMARY | 2023-12-28 01:42 | XMS_ITS | Encounter Summary ---
[facility] Address [facility] [place] [address] Care Team Providers Care Laborer Powerhouse Name Role Phone Keiko Reddy MD Primary Care Provider [phone] Reason for Visit * Reason Comments Post Op right tib plateau or if Encounter Details Date Type Department Care Team (Late st Contact Info) Description 01/04/2018 11:00 AM EDT Office Visit [place] [address] Heather Colon PA [facility] [place] [address] Closed fracture of right tibial plateau, initial [...] NAME: Daphne Pickard AGE: 52 y.o. MR#: [id number] DATE OF VISIT: 01/04/2018 CHIEF COMPLAINT: Hospital [...] 0.18) performed by Reinaldo Romero MD at [facility] MAIN OR ??? PRO COLONOSCOPY, DIAGNOSTIC N/A 06/25/2017 COLONOSCOPY, DIAGNOSTIC performed by Kimani Rojas MD at [facility] ENDOSCOPY ??? PRO OPEN LINING CASER FIX ACETABULAR FX Left 12/20/2017 @OPEN TREATMENT, ACETABULAR FX (WRVU 25.41) performed by Tete Talamantes MD at [facility] MAIN OR ??? PRO OPEN RX DISTAL RADIUS FX, INTRA-ARTICULAR, 3+ FRAG Right 12/14/2017 ORIF DISTAL RADIUS, 3 OR MORE FRAGMENTS (WRVU 14.38) performed by Reinaldo Romero MD at [facility] MAIN OR ??? PRO OPEN TX TIBIAL FRACTURE PROXIMAL UNICONDYLAR Right 12/14/2017 @ORIF TIBIAL PLATEAU (PROXIMAL) UNICONDYLAR (WRVU 13.41) performed by Reinaldo Romero MD at [facility] MAIN OR HISTORY OF PRESENT ILLNESS: Ms. Pickard is a 52 y.o. female who comes into clinic today for [facility]. She comes to clinic today with [...] is very unhappy with her care at [facility]. She would very much like to go home, however she is waiting for the doctor at [facility] to wrist orders for a hospital [...] She would like to be called at [phone] with scheduling information regarding this. She reports [...] AM EDT Appointment Hematology [place] [address] 01/31/2024 10:20 AM EDT Office Visit Gy[place] [address] Rebecca Small MD [facility] [place] [address] 08/01/2024 11:30 AM EDT Office Visit Dermatology at [place] [address] [address] Phan Engle MD [facility] [place] [address] documented as of this encounter Procedures Procedure [...] encounter documented in this encounter Care Teams Laborer Powerhouse Relationship Specialty Start Date End Date Keiko Reddy MD [address] [address] PCP - General Family Medicine 06/18/17 05/15/18 documented as of this encounter
--- OUTSIDE RECORDS SUMMARY | 2023-12-28 01:42 | XMS_ITS | Encounter Summary ---
Author Organization [facility] Address [facility] [place] [address] Care Team Providers Care Application Systems Engineer Name Role Phone Keiko Reddy MD Primary Care Provider [phone] Encounter Details Date Type Department Care Team (Latest Contact Info) Description 02/16/2018 2:28 PM EDT Hospital Encounter XRay at [address] [place] [address] [facility] [place] [address] Closed nondisplaced fracture of left acetabulum with [...] AM EDT Appointment Hematology [place] [address] 01/31/2024 10:20 AM EDT Office Visit [place] [address] [facility] DR [place] [address] 08/01/2024 11:30 AM EDT Office Visit Dermatology at [facility] [address] [place] [address] [facility] [address] [place] [address] documented as of this encounter Procedures Procedure [...] encounter documented in this encounter Care Teams Application Systems Engineer Relationship Specialty Start Date End Date Keiko Reddy MD [address] [place] [address] PCP - General Family Medicine 06/18/17 05/15/18 documented as of this encounter
--- OUTSIDE RECORDS SUMMARY | 2023-12-28 01:42 | XMS_ITS | Encounter Summary ---
Author Organization [facility] Address [facility] [place] [address] Care Team Providers Care Admissions Consultant Name Role Phone Keiko Reddy MD Primary Care Provider [phone] Reason for Visit * Auth/Cert Specialty Diagnoses / Procedures Referred By Marie t Referred To Contact Diagnoses sutures and loki in place RUE, LLE Procedures PRO REM SUTURES W ANESTH OTHR SURGEON REMOVAL OF SUTURE UNDER ANESTHESIA, OTHER SURGEON, LOWER EXTREMITY (WRVU 0.86) Referral ID Status Reason Start Date Expiration Date Visits Re quested Visits Authorized [id number] 1 1 Encounter Details Date Type Department Care Team (Late st Contact Info) Description 01/12/2018 1:28 PM EDT - 01/12/2018 2:06 PM EDT Surgery [place] [address] Reinaldo Romero MD [facility] DR [place] [address] REMOVAL OF SUTURE OR LOKI REQUIRING ANESTHESIA, [...] taped at the top) to cover the Bishnu brace. DO NOT submerge the wound. Remember [...] absorb on their own. Call your doctor ([phone]) if you develop: 1. Fever greater than 100.5 2. Severe nausea or vomiting 3. Increasing pain that is not controlled by pain medications 4. Increasing redness, swelling, or drainage from incisions 5. Change in sensation Future Appointments Date Time Provider Department Center 01/28/2018 9:30 AM Jed Her PA [facility] [address] [place] [address] CLIN If you have questions or concerns: [...] 24-Hour Pre-Operative H&P Update Daphne Pickard [id number] Patient seen in pre-op holding area today. [...] Dueñas MD - 01/12/2018 5:42 PM EDT [facility] Operative Note Patient Name: Daphne Pickard : [id number] MR#: [id number] Case Date: 01/12/2018 Surgeon: Surgeon(s) and Role: [...] year old female who presented to the [facility] Emergency Department on 12/14/17or trauma evaluation after [...] anxiety around staple removal. She presents to [facility] today for removal of loki from her lower extremity incisions under sedation. A consent form for the procedure was reviewed and signed. Procedure Description: The patient was identified in the preoperative holding area by name and date of . The proposedsites and procedures were confirmed with the patient and against the consent form. A green sac and fox [place] was then placed on the operative extremities. The patient was brought back to the operative suite. She remained in the hospital stretcher in the supine position. All bony prominences were well padded. A timeout was held according to [facility] universal protocol and all members [...] extremity loki were removed we replaced the Mellen brace and locked in extension. We then [...] Operative Note Patient Name: Daphne Pickard : [id number] MR#: [id number] Case Date: 01/12/2018 Surgeon: Surgeon(s) and Role: [...] AM EDT Appointment Hematology [place] [address] 01/31/2024 10:20 AM EDT Office Visit Gynecology [place] [address] Rebecca Small MD [facility] [place] [address] 08/01/2024 11:30 AM EDT Office Visit Dermatology at [place] [address] [place] [address] Phan Engle MD [facility] DR [address] [place] [address] documented as of this encounter Procedures Procedure [...] RN) documented in this encounter Care Teams Admissions Consultant Relationship Specialty Start Date End Date Keiko Reddy MD [address] [address] PCP - General Family Medicine 06/18/17 05/15/18 documented as of this encounter
--- OUTSIDE RECORDS SUMMARY | 2023-12-28 01:42 | XMS_ITS | Encounter Summary ---
Author Organization [facility] Address [facility] [place] [address] Care Team Providers Care Tobacco Sieve Operator Name Role Phone Keiko Reddy MD Primary Care Provider [phone] Encounter Details Date Type Department Care Team (Latest Contact Info) Description 01/28/2018 8:27 AM EDT - 01/28/2018 11:59 PM EDT Hospital Encounter XRay at [address] [place] [address] Reinaldo Romero MD [facility] [place] [address] Closed displaced fracture of posterior wall of [...] AM EDT Appointment Hematology [place] [address] 01/31/2024 10:20 AM EDT Office Visit [place] [address] Rebecca Small MD [facility] [place] [address] 08/01/2024 11:30 AM EDT Office Visit Dermatology at [facility] [address] [place] [address] Phan Engle MD [facility] DR JESS [place] [address] documented as of this encounter Procedures Procedure [...] fine bony detail. There was prior volar kgpkn-dxa-qjzyf fixation of the previously described comminuted intra-articular distal radial fracture, in unchanged anatomic alignment, without evidence of complication. The fracture lines remain partly visible, without definite interval change. Right knee: There was prior vejnl-jxs-prusz fixation of the previously described Schatzker type [...] obscures fine bony detail. There was priorvolar ajcpk-vew-ohoek fixation of the previously described comminutedintra-articular distal radial fracture, in unchanged anatomic alignment, without evidenceof complication. The fracture lines remain partly visible, without definite interval change. Right knee: There was prior astzw-hrd-uxdug fixation of the previouslydescribed Schatzker type II [...] fine bony detail. There was prior volar clgms-huu-qnoro fixation of the previously described comminuted intra-articular distal radial fracture, in unchanged anatomic alignment, without evidence of complication. The fracture lines remain partly visible, without definite interval change. Right knee: There was prior rvcai-enj-gdebp fixation of the previously described Schatzker type [...] obscures fine bony detail. There was priorvolar dgyts-ofb-qlbuw fixation of the previously described comminutedintra-articular distal radial fracture, in unchanged anatomic alignment, without evidenceof complication. The fracture lines remain partly visible, without definite interval change. Right knee: There was prior hmizs-lqb-urksg fixation of the previouslydescribed Schatzker type II [...] Romero) documented in this encounter Care Teams Tobacco Sieve Operator Relationship Specialty Start Date End Date Keiko Reddy MD [address] [address] PCP - General Family Medicine 06/18/17 05/15/18 documented as of this encounter
--- OUTSIDE RECORDS SUMMARY | 2023-12-28 01:42 | XMS_ITS | Encounter Summary ---
Author Organization [facility] Address [facility] [place] [address] Care Team Providers Care Erco Machine Operator Name Role Phone Keiko Reddy MD Primary Care Provider [phone] Reason for Referral * Home Health Care (Routine) - Specialty Diagnoses / Procedures Referred By Contac t Referred To Contact Unknown Specialty Diagnoses Closed displaced fracture of posterior wall of left acetabulum, initial encounter Closed fracture of right tibial plateau, initial encounter Radius/ulna fracture, right, closed, initial encounter Reinaldo Romero MD [facility] [address] ORTHOPAED[place] [address] Referral ID Status Reason Start Date Expiration Date V isits Requested Visits Authorized [id number] Continuity of Care 01/12/2018 07/11/2018 1 1 Scheduling Instructions Please contact [phone] option 7 for any questions or concerns related to PT/OT orders. Please leave a detailed message with agency name, callers name and phone number, patients name and date. Our team monitors the line frequently and will call back as soon as they are available. Encounter Details Date Type Department Care Team (Late st Contact Info) Description 01/12/2018 [place] [address] Tre Matos RN Closed displaced fracture of [...] AM EDT Appointment [place] [address] 01/31/2024 10:20 AM EDT Office [place] [address] Rebecca Small MD [facility] GYNECOLOGIC [place] [address] 08/01/2024 11:30 AM EDT Office Visit Dermatology at [address] [address] Phan Engle MD [facility] [address] JESS HERNANDE[place] [address] Scheduled Referrals Name Type Priority Associated Diagnoses [...] Romero) documented in this encounter Care Teams Erco Machine Operator Relationship Specialty Start Date End Date Keiko Reddy MD [address] [address] PCP - General Family Medicine 06/18/17 05/15/18 documented as of this encounter
--- OUTSIDE RECORDS SUMMARY | 2023-12-28 01:42 | XMS_ITS | Encounter Summary ---
Author Organization [facility] Address [facility] [place] [address] Care Team Providers Care Yard Goods Salesperson Name Role Phone Keiko Reddy MD Primary Care Provider Encounter Details Date Type Department Care Team (Latest Contact Info) Description 04/12/2018 9:50 AM EST - 04/12/2018 11:59 PM [facility] Hospital Encounter XRay at [address] [place] [address] Reinaldo Romero MD [facility] [place] [address] Wrist fracture, closed, right, with routine healing, [...] AM EDT Appointment Hematology [place] [address] 01/31/2024 10:20 AM EDT Office Visit [place] [address] Rebecca Small MD [facility] [place] [address] 08/01/2024 11:30 AM EDT Office Visit Dermatology at [place] [address] [place] [address] Phan Engle MD [facility] DR J[place] [address] documented as of this encounter Procedures Procedure [...] encounter documented in this encounter Care Teams Yard Goods Salesperson Relationship Specialty Start Date End Date Keiko Reddy MD [address] [address] PCP - General Family Medicine 06/18/17 05/15/18 documented as of this encounter
--- OUTSIDE RECORDS SUMMARY | 2023-12-28 01:43 | XMS_ITS | Encounter Summary ---
Author Organization [facility] Address [facility] [place] [address] Care Team Providers Care Entertainment & Media Correspondent Name Role Phone Keiko Reddy MD Primary Care Provider [phone] Reason for Visit * Reason Comments Hospital [...] Expiration Date Visits Re quested Visits Authorized [id number] 1 1 Encounter Details Date Type Department Care Team (Latest Contact Info) Description 12/13/2017 11:51 PM EDT - 12/24/2017 2:11 PM EDT Hospital Encounter [address] [place] [address] Russell Lewis MD [facility] [place] [address] Reinaldo Romero MD [facility] [place] [address] Fracture of radius, right, closed Discharge Disposition: Detention Facility Social History Tobacco Use Types Packs/Day [...] Daphne Pickard Patient Age: 52 y.o. Language: Nigerian Race: White Ethnicity: Not nor Admit date: [...] [facility] 01/04/2018 10:15 AM [facility] DX ROOM 3 MH Xray [facility] 01/04/2018 11:00 AM Heather Colon PA [facility] [address] [place] [address] Inpatient Provider Contact Information: Reinaldo Romero MD Orthopedics: [phone] After hours and weekends, call [facility] Window Trimmer Apprentice, , and have the Orthopedic resident paged. [...] did well post- operatively. On POD#1 the FREIGHT BREAKER was discontinued and the patient was started [...] signs and determined safe for discharge to group home facility. Vital Signs at Discharge: Weight: Wt [...] pain controlled on oral medications. Discharge to: Detention Facility [facility] Address: [address] [place] [address] [address] [facility] [place] [address] Updated Allergies/ADRs: No Known Allergies Immunizations Given [...] Activity: Non weight bearing bilateral lower extremities. Gilbert Brace locked in extension right lower extremity. May use right upper casted arm to assist with transfers. Will need slide board orlift to transfer from bed to chair/wheelchair with staff assistance. When reclining in bed, may open the Bishnu Brace 1-2 times a day to inspect the skin. Re-secure the Gilbert after. 3. Diet: Regular but increase fluids and fiber while on narcotic pain meds 4. [place]/Sutures: Absorbable sutures right lower leg and upper arm. Removal not needed. [place] left hip to be removed in 14 [...] with waterproof dressing until zuleyka are removed. Tub[place] plastic bag taped at the top over the right lower extremity Gilbert brace should be done to keep the Gilbert and wound dry. DO NOT submerge the [...] both of your legs. 2. Keep the Gilbert Brace on your right leg locked in extension. When reclining in bed, may open the Gilbert Brace 1-2 times a day to inspect the skin. Re- secure the Gilbert after. 3. Remember to use a slide [...] bowel movement. You can also take an geeq-dic-jopibay medication, Miralax if needed to combat constipation. [...] with waterproof dressing until zuleyka are removed. Tubac plastic bag taped at the top over the right lower extremity Gilbert brace should be done to keep the Gilbert and wound dry. DO NOT submerge the [...] skin and wound problems. Call your doctor ([phone]) if you develop: 1. Fever greater than [...] 1. You will have follow-up appointments at [facility] as indicated in Future Appointment and Orders. [...] AM [facility] DX ROOM 9 [facility] [place] [phone] Please go to [facility] Area 3T ([place] Location). 01/04/2018 7:45 AM [facility] DX ROOM 9 [facility] [place] [phone] Please go to [facility] Area 3T ([place] Location). 01/04/2018 8:00 AM [facility] DX ROOM 9 [facility] [place] [phone] Please go to [facility] Area 3T ([place] Location). 01/04/2018 9:45 AM [facility] DX ROOM 3 [facility] [place] [phone] Please go to [facility] Area 3T ([place] Location). 01/04/2018 10:00 AM [facility] DX ROOM 3 [facility] [place] [phone] Please go to [facility] Area 3T ([place] Location). 01/04/2018 10:15 AM [facility] DX ROOM 3 [facility] [place] [phone] Please go to [facility] Area 3T ([place] Location). 01/04/2018 11:00 AM Heather Colon PA [facility] [place] [phone] Future Orders Complete By Expires Full code [...] discussion: Primary Care Provider: Keiko Reddy MD [phone] Discharge References/Attachments INDWELLING URINARY CATHETER CARE: GENERAL INFO (FAROESE) documented in this encounter Discharge Instructions * [...] to inspect the skin. Re- secure the Gilbert after. 3. Remember to use a slide [...] bowel movement. You can also take an cqzz-ous-tvpedfg medication, Miralax if needed to combat constipation. [...] with waterproof dressing until zuleyka are removed. Tubac plastic bag taped at the top over the right lower extremity Gilbert brace should be done to keep the Gilbert and wound dry. DO NOT submerge the [...] skin and wound problems. Call your doctor ([phone]) if you develop: 1. Fever greater than [...] 1. You will have follow-up appointments at [facility] as indicated in Future Appointment and Orders. [...] * INDWELLING URINARY CATHETER CARE: GENERAL INFO (FAROESE) documented in this encounter Medications at Time [...] called and given to HAYLEY Barkley at [facility]. * Kaley Torres RN - 12/24/2017 11:57 AM EDT Office of Care Management/Client Solutions Specialist Patient Name: Daphne Pickard : 1965 Patient has been offered a snf bed at [facility] for today. [facility] arranged for a 1:30 transport. Ambulance will need: Medicare ambulance form completed and signed (MD or Assembly Machine Offbearer RN/CLINICAL PROJECT MANAGER) Copy of patient demographics [place] or [place] Out of Hospital DNR/DNI order, if active No MD to MD report necessary Please call Nursing Report to , ask for religion professor. Info to accompany patient: Narcotic Prescriptions Copies of Medication Administration Records and IV sheets for past 10 days. Plan: Client Solutions Specialist will be available to the patient and Assembly Machine Offbearer-RN and/or Social Workerfor further assistance. Patient will be discharged to: [facility] [address] [place] [address] [id number] KALEY TORRES RN, Client Solutions Specialist * Sol Boudreaux MD - 12/24/2017 4:44 [...] Brisk capillary refill distally, fingers warm/well-perfused. RLE: Gilbert brace in place, locked in extension. Mepilex [...] of posterior acetabulum fx ASSESSMENT / PLAN: Daphen Pickard is a 52 y.o. female s/p [...] - Afebrile, VSS - Rehab referrals placed, [facility] going for auth Active Hospital Problems [...] Brisk capillary refill distally, fingers warm/well-perfused. RLE: Gilbert brace in place, locked in extension. Mepilex [...] board transfers and left posterior hip precautions. Gilbert beace locked in extension to RLE. Patient may use the RUE in the cast for help with transfers. DVT prophylaxis: Lovenox 30mg BID . Closure: [place] out in 2 weeks (~01/03) Dressing: Mepilex [...] unit kitchen (yogurt, non- dairy milk, etc). Investigative Analyst and pt discussed protein. Pt stated she is consuming protein in her daily nutrition. Pt requested to cancel Boost Plus shakes and fruits at this time she had been receiving for snacks. Investigative Analyst canceled snacks per pt request. Nursing [...] Patient medically ready for rehab per provider. [facility] going for insurance authorization. Patient aware and agreable to plan. Will have to transport by ambulance because of injuries. PASSR signed. Packet completed. Sangeetha Page RN Case Manager, [facility] [phone] Pager #[phone] * Nir Bhatti - 12/22/2017 5:55 AM [...] Brisk capillary refill distally, fingers warm/well-perfused. RLE: Gilbert brace in place, locked in extension. Mepilex [...] DVT prophylaxis: Lovenox 30mg BID . Closure: [place] out in 2 weeks (~01/03) Dressing: Mepilex [...] discuss discharge planning needs. I reviewed the [facility], Office of Care Management letter from the Senior Investment Analyst pertaining to rehab referrals. I also reviewed a letter describing our affiliations within the [facility] and educated her abouther right to choose where referrals are placed. ?? I reviewed the different levels of rehab including SNF, swing, acute and LTAC with the patient. ?? The patient has been provided a list of facilities within her preferred geographic area. ?? I requested that the patient provide at least three choices for referral. ?? The patient requested referrals to: 1. [facility] [place] [address] ?? [phone] ?? I mentioned the option of hospitals which offer Swing Beds. Patient declined to provide additional referral choices of any level. ?? Expected date of discharge: Not yet determined. Pt continues to have pain control issues. Note routed to Client Solutions Specialist who will communicate referrals to facilities and provide any required information. Sabrina Aranda RN, BSN, Assembly Machine Offbearer Pager [phone] * Filippo Dickson MD - 12/21/2017 10:10 AM EDT Morning lab work now returned. Hgb 8.7 down from 10.9 pre-operatively for ORIF left acetabulum performed yesterday 12/20. Consistent with acute blood loss anemia following surgery. Will continue to follow. Remainder of CBC, BMP WNL. See progress note by Dr. Dobson for remainder of exam and assessment. Filippo Dickson MD Orthopaedic Surgery, PGY-1 Pager: [phone] * Kimani Dobson MD - 12/21/2017 5:58 [...] board transfers and left posterior hip precautions. Gilbert beace locked in extension to RLE. Patient may use the RUE in the cast for help with transfers. DVT prophylaxis: Lovenox 30mg BID . Closure: [place] out in 2 weeks (~01/03) Dressing: Mepilex [...] hip precautions to LLE. Activity: NWB RLE, Gilbert brace locked in extension to RLE, TDWB [...] 1240 Hand off to HAYLEY Simons [address] [place]. Patient to go to X-ray on route, [...] in RUE or BLE. Has beenNPO since [place] for OR today. Active Hospital Problems Diagnosis [...] Brisk capillary refill distally, fingers warm/well-perfused. RLE: Gilbert brace in place, locked in extension. Mepilex [...] Brisk capillary refill distally, fingers warm/well-perfused. RLE: Gilbert brace in place, locked in extension. Mepilex [...] ORIF left acetabulum tomorrow. Activity: NWB BLE. Gilbert beace locked in extension to RLE. Okay [...] after midnight - NBO placed -Last BM: CUSTOMER SERVICE ENGINEER ?? RENAL: - trend BMP daily till [...] 12/16) [] Incidental Findings Form Completed Jason ShannonJOSÉ LUIS 12/16/2017 Trauma pager [phone] Acute Care Surgery Attending Addendum: I have [...] minimumof two midnights or is on the [facility] inpatient only procedure list (status [...] 12/16/2017 No future appointments. * Jason Shannon, EDGE STITCHER - 12/15/2017 1:58 PM EDT TRAUMA & [...] is a 52 y.o. female presents to [facility] s/p fall. Description of events leading up to injury includes she was riding a horse when he bucked her off. She landed on her right arm and legbut did not hit her head. No LOC. Immediately after the fall she had significant pain in right knee. Her fiance was able to call EMS. She was taken to [facility] where she was noted to have multiple orthopedic injuries including a right radial and right tibial plateau fracture. Her right arm was placed in a CARMEN splint. She was transferred to [facility] for further care and was hemodynamically normal [...] DIAGNOSTIC performed by Kimani Rojas MD at [facility] ENDOSCOPY HOME MEDICATIONS: No prescriptions prior to [...] lives with significant other Jignesh Louise in [place], [place]. In 2nd floor home. One step [...] as tolerated - NBO placed -Last BM: CUSTOMER SERVICE ENGINEER RENAL: - trend BMP daily till stable [...] Completed Jason Shannon APRN 12/15/2017 Trauma pager [phone] * Filippo Dickson MD - 12/15/2017 1:46 [...] Filippo Dickson MD Orthopaedic Surgery, PGY-1 Pager: [phone] * Katherin Beltrán DT - 12/15/2017 10:45 [...] per pt) and a vanilla Boost Plus. Investigative Analyst ordered said snack at time of visit. Pt stated she loves Oui yogurt. Investigative Analyst encouraged pt she can have family bring in favorite foods (yogurt) and place in unit refrigerator with name, room and date. Pt had room service menu at bedside. Writereducated pt on ordering procedure and timelines for hot foods. Investigative Analyst encouraged pt order 3 meals qd with a protein source. Informed pt of small portions are available should she request. Pt agreeable to dietary services open meal containers and cut up all foods daily. Investigative Analyst set up said request. Pt also agreeable to Boost Plus 2x/day at snack times with fresh fruit snacks added (green apple cut up and a banana). Investigative Analyst set up. Patient had no further [...] 12/14/2017 No future appointments. * Priya Whitaker, EDGE STITCHER - 12/14/2017 5:15 PM EDT Trauma and [...] Trauma and Acute Care Surgery Trauma pager [phone] * Bharath Caruso RN - 12/14/2017 4:20 PM EDT Patient returned from surgery via bed. All vitals WNL. Patient remains alert to voice and complaining of pain in right arm. PRN pain medication given. Bishnu brace in place to right leg and [...] up as appropriate. Peter Bynum OT Pager: [phone] * Rocio Sherman RN - 12/14/2017 9:18 [...] Daphne Pickard Level of Activation: alert MR#: [id number] [ ]Scene Call or [ x]Hospital Transfer : [id number] CC/MECHANISM OF INJURY: 52 y.o. Female s/p fall HISTORY OF PRESENT ILLNESS: Daphne Pickard is a 52 y.o. female presents to [facility] s/p fall. Description of events leading up to injury includes she was riding a horse when he bucked her off. She landed on her right arm and legbut did not hit her head. No LOC. Immediately after the fall she had significant pain in right knee. Her fiance was able to call EMS. She was taken to [facility] where she was noted to have multiple orthopedic injuries including a right radial and right tibial plateau fracture. Her right arm was placed in a CARMEN splint. She was transferred to [facility] for further care and was hemodynamically normal [...] DIAGNOSTIC performed by Kimani Rojas MD at [facility] ENDOSCOPY ALLERGIES: Allergies Allergen Reactions ??? Gabapentin [...] Negative mcL Appearance UA Clear Clear Spec [place] UA >1.035 (H) 1.002 - 1.030 Color [...] DISPO: floor Padmaja Grady MD Trauma Surgery #[id number] 12/14/2017 ADDENDUM: I have independently seen and [...] Updated report given to HAYLEY Frazier, [address] [place]. Pending transpo. * Bee Cardozo RN - 12/14/2017 1:55 AM EDT Report called to HAYLEY Frazier, [address] [place]. Pending admit after ortho completes splinting. * Kimberly Lin MD - 12/14/2017 12:23 AM EDT Daphne Pickard is a 52 y.o. female who arrives via EMS as trauma consult from [facility] History obtained by: hospital records, EMS, [...] Pt educated on LB dressing technique w/ medical terminologist supine. Pt is extremely motivated and will greatly benefit from ongoing therapeutic interventions to achieve pt's and therapy goals. Please refer to associated flowsheet data listed below for treatment session details. Staff Recommendations: ?? Mechanical lift ?? Encourage OOB activity and participation in all self care tasks Anticipated Discharge Disposition: inpatient rehabilitation facility, group home facility Pager: [phone] Peter Bynum OT 12/22/2017 Occupational Therapy Rehabilitation Department 12/22/17 8834 Rehab Evaluation Document Type therapy note (daily [...] Mobility Assessment/Treatment Assistive Device (Bed Mobility) leg supervisor shuttle veneering;other (see comments) Fsvxjv-wx-Gzj Stephens (Bed Mobility) moderate assist (50% patient effort);2 person assist required Adp-ei-Nfqwch Stephens (Bed Mobility) moderate assist (50% patient effort);2 person assist required Impairments (Bed Mobility) pain;ROM (range of motion) decreased;balance impaired;strength decreased Comment (Bed Mobility) Pt performed be dmobility w/ increased time, pt long sitting EOB w/ chair support LE Transfer Assessment/Treatment Bed-Chair Stephens (Transfers) moderate assist (50% patient effort);2 person assist required Impairments (Transfers) pain;ROM (range of motion) decreased;strength decreased Comment (Transfers) Pt performed backward scoot from bed>w/c,assist w/ kim pad and support forLE. Increased time and increased pain noted Bathing Assessment/Training Position (Bathing) sitting Stephens Level (Bathing) moderate assist (50% patient effort) Comment (Bathing) Pt required washed trunk, pt required assist to sponge bath her back and LE Upper Body Dressing Assessment/Training Position (UB Dressing) sitting Stephens Level (UB Dressing) set up required;supervision required [...] protect/position healing structures Wear Schedule (Orthosis) wear inspector timers Adjustment Comment (Orthosis) no adjustment Plan of [...] (TBD, W/C) Anticipated Discharge Disposition inpatient rehabilitation facility;group home facility * Plan of Care - Roberto [...] lift to commode/chair Anticipated Discharge Disposition: (S) group home facility Roberto Almodovar PT Pager: [phone] Inpatient Physical Therapy 12/22/17 8230 Rehab Evaluation Document Type therapy note (daily [...] Mobility Assessment/Treatment Assistive Device (Bed Mobility) leg supervisor shuttle veneering;draw sheet (HOB elevated ) Mtfruy-gz-Plk Stephens (Bed Mobility) moderate assist (50% patient effort);2 person assist required;verbal cues required Impairments (Bed Mobility) ROM (range of motion) decreased;strength decreased;flexibility decreased;pain Comment (Bed Mobility) supine>long sitting; increased time; extra assist needed; long sitting atEOB; feet supported on a chair with pillows Scoot/Bridge Stephens (Bed Mobility) moderate assist (50% patient effort);2 person assist required;verbal cues required Safety Issues (Bed Mobility) decreased use of arms for pushing/pulling;decreased use of legs for bridging/pushing Transfer Assessment/Treatment Bed-Chair Stephens (Transfers) moderate assist (50% patient effort);2 person assist required Pig-Axijp-Lpp Assistive Device (Transfers) (backwards/forwards) Maintain Weight Bearing [...] to sit/sit to supine Bed Mobility Goal, Stephens Level minimum assist (75% patient effort) Bed Mobility Goal, Assistive Device leg supervisor shuttle veneering Bed Mobility Goal, Date Goal Reviewed 12/22/17 Bed Mobility Goal, Outcome Achieved goal ongoing Transfer Training Goal Transfer Training Goal, Date Established 12/15/17 Transfer Training Goal, Time to Achieve 30 days Transfer Training Goal, Activity Type bgh-oz-otceb/pkmch-ko-kcg Transfer Train Goal, Stephens Level moderate assist (50% patient effort) Transfer [...] Needs at Discharge wheelchair Anticipated Discharge Disposition group home facility * Plan of Care - [place] [...] Joyce Parra - 12/20/2017 11:01 AM EDT [facility] Operative Note Patient Name: Daphne Pickard : [id number] MR#: [id number] Case Date: 12/20/2017 ?? Surgeon: Surgeon(s) and [...] which had been applied preoperatively in accordancewith [facility] policy. Anesthesia was induced while the patient [...] surgical timeout was performed in accordance with [facility] policy. Site of intended incision was drawn [...] Implant Name Type Inv. Item Serial No. Auto Bench Mechanic Lot No. LRB No. Used Action WIRE,K,THRDD GWRE,[id number]) - [id number] IMPLANTS WIRE,K,THRDD GWRE,[id number] ([id number]) [facility] Left 1 Implanted and Explanted SCREW,CRTX,STAP,2.7X32MM [id number]) - [id number] IMPLANTS SCREW,CRTX,STAP,2.7X32MM ([id number]) [facility] Left 1 Implanted SCREW,CRTX,STAP,2.7X28MM ([id number]) - [id number] IMPLANTS SCREW,CRTX,STAP,2.7X28MM ([id number]) [facility] Left 1 Implanted and Explanted SCREW,CRTX,STAP,2.7X26MM ([id number]) - [id number] IMPLANTS SCREW,CRTX,STAP,2.7X26MM ([id number]) [facility] Left 1 Implanted PLATE,RECON.8H,3.5X94MM ([id number]) - [id number] IMPLANTS PLATE,RECON.8H,3.5X94MM ([id number]) [facility] Left 1 Implanted SCREW,CRTX,STAP,3.5X34MM ([id number]) - [id number] IMPLANTS SCREW,CRTX,STAP,3.5X34MM ([id number]) [facility] Left 3 Implanted PIN,KWIRE,TROC 1 ED,NS,[id number] ([id number]) - [id number] IMPLANTS PIN,KWIRE,TROC 1 ED,NS,[id number] ([id number]) [facility] Left 2 Implanted and Explanted SCREW,CRTX,STAP,3.5X75MM ([id number]) - [id number] IMPLANTS SCREW,CRTX,STAP,3.5X75MM ([id number]) [facility] Left 1 Implanted and Explanted SCREW,CRTX,STAP,3.5X38MM ([id number]) - [id number] IMPLANTS SCREW,CRTX,STAP,3.5X38MM ([id number]) [facility] Left 1 Implanted and Explanted SCREW,CRTX,STAP,3.5X36MM ([id number]) - [id number] IMPLANTS SCREW,CRTX,STAP,3.5X36MM ([id number]) [facility] Left 1 Implanted SCREW,CRTX,STAP,3.5X40MM ([id number]) - [id number] IMPLANTS SCREW,CRTX,STAP,3.5X40MM ([id number]) [facility] Left 1 Implanted SCREW,CRTX,STAP,2.7X28MM ([id number]) - [id number] IMPLANTS SCREW,CRTX,STAP,2.7X28MM ([id number]) [facility] Left 1 Implanted and Explanted SCREW,CRTX,STAP,3.5X28MM ([id number]) - [id number] IMPLANTS SCREW,CRTX,STAP,3.5X28MM ([id number]) [facility] Left 1 Implanted Infection Bundle used? N/A Associated attestation - Tete Talamantes MD - 12/21/2017 5:57 AM EDT Attestation: Case Date: 12/20/2017 I was present and I participated during the entire procedure (does not need to include opening and closing). Tete Talamantse MD 12/21/2017 * Brief Op Note - Joyce Parra - 12/20/2017 10:18 AM EDT Brief Operative Note Patient Name: Daphne Pickard : [id number] MR#: [id number] Case Date: 12/20/2017 Surgeon: Surgeon(s) and Role: [...] cast intact, no n/t. RLE dressing c/d/i. Gilbert locked in extension. Elevated throughout shift. +dp [...] tasks Anticipated Discharge Disposition: inpatient rehabilitation facility, group home facility Pager: [phone] Peter Bynum OT 12/17/2017 Occupational Therapy Rehabilitation Department 12/17/17 4865 Rehab Evaluation Document Type therapy note (daily [...] Mobility Assessment/Treatment Assistive Device (Bed Mobility) leg supervisor shuttle veneering;draw sheet Tzztvf-tj-Mgs Stephens (Bed Mobility) minimum assist (75% patient effort);moderate assist (50% patient effort);verbal cues required Impairments (Bed Mobility) ROM (range of motion) decreased;strength decreased;pain Comment (Bed Mobility) Pt performed bed mobility w/ assist for RLE and us of drawsheet to get into position for backward scoot transfer. Transfer Assessment/Treatment Bed-Chair Stephens (Transfers) minimum assist (75% patient effort);moderate assist (50% patienteffort);verbal cues required Vjo-Kywhz-Pqh Assistive Device (Transfers) (none) Impairments (Transfers) pain;ROM [...] Discharge (TBD) Anticipated Discharge Disposition inpatient rehabilitation facility;group home facility * Plan of Care - Roberto [...] chair for meals Anticipated Discharge Disposition: (S) group home facility Roberto Almodovar, PT Pager: [phone] Inpatient Physical Therapy 12/17/17 3980 Rehab Evaluation Document Type therapy note (daily [...] of bed Precautions Comments Non-weight bearing BLE. Gilbert brace on RLE, locked in extension at all times. Non-weight bearing RUE. can platform weight bear through RUE Treatment Number PT 2 Pain Scale/Rating Pain Assessment Scale Numbers (Numeric Rating Pain Scale) Pain Level 8 Mobility Assessment/Training Additional Documentation Transfer Assessment/Treatment (Group) Bed Mobility Assessment/Treatment Assistive Device (Bed Mobility) leg supervisor shuttle veneering;draw sheet Scaccr-cw-Llq Stephens (Bed Mobility) minimum assist (75% patient effort);moderate assist (50% patient effort) Comment (Bed Mobility) moving around in bed to sit up on edge with back on the edge Scoot/Bridge Stephens (Bed Mobility) minimum assist (75% patient effort);moderate assist (50% patient effort) Transfer Assessment/Treatment Bed-Chair Stephens (Transfers) minimum assist (75% patient effort);moderate assist (50% patienteffort) Odo-Crnyn-Bot Assistive Device (Transfers) (backwards/forwards) Comment (Transfers) backwards/forwards transfer on R side of bed back into recliner chair; use of leg supervisor shuttle veneering; vc's for sequencing and technique Orthotics/Prosthetics Additional [...] to sit/sit to supine Bed Mobility Goal, Stephens Level minimum assist (75% patient effort) Bed Mobility Goal, Assistive Device leg supervisor shuttle veneering Bed Mobility Goal, Date Goal Reviewed 12/17/17 Bed Mobility Goal, Outcome Achieved goal ongoing Transfer Training Goal Transfer Training Goal, Date Established 12/15/17 Transfer Training Goal, Time to Achieve 30 days Transfer Training Goal, Activity Type set-cq-taprs/mzclc-jf-hwy Transfer Train Goal, Stephens Level moderate assist (50% patient effort) Transfer [...] Needs at Discharge wheelchair Anticipated Discharge Disposition group home facility * Plan of Care - Arabella [...] chair when able Anticipated Discharge Disposition: (S) group home facility Roberto Almodovar PT Pager: [phone] Inpatient Physical Therapy 2017 PT Evaluation Code [...] with her yumi in their home in [place], [place]. 18 steps to enter the home. Has 3 horses at home, 4 labs and 2 cats Functional Level Prior Prior Functional Level Comment Reports she has a sister that is a PT. may be able to obtain DME from family members. 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 Vital Signs SpO2 97 [...] Mobility Assessment/Treatment Assistive Device (Bed Mobility) leg supervisor shuttle veneering;draw sheet;bed rails (elevated HOB) Shfcus-cu-Fmd Stephens (Bed Mobility) minimum assist (75% patient effort);2 person assist required;moderate assist (50% patient effort) Jsj-ea-Zplqwa Stephens (Bed Mobility) maximum assist (25% patient effort);2 person assist required;verbal cues required Impairments (Bed Mobility) flexibility decreased;pain;ROM (range of motion) decreased;strength decreased Comment (Bed Mobility) increased time 2/2 pain; able to move LLE not not RLE; vc's for technique; use of draw sheet Scoot/Bridge Stephens (Bed Mobility) minimum assist (75% patient effort) [...] protect/position healing structures Wear Schedule (Orthosis) wear inspector timers Plan of Care Review Plan Of Care Reviewed With patient Physical Therapy Goal Types Physical Therapy Goal Types Bed Mobility Goal (Group);Transfer Training Goal (Group);Physical Therapy Goal (Group) Bed Mobility Goal Bed Mobility Goal, Date Established 12/15/17 Bed Mobility Goal, Time to Achieve 30 days Bed Mobility Goal, Activity Type roll left/roll right;supine to sit/sit to supine Bed Mobility Goal, Stephens Level minimum assist (75% patient effort) Bed Mobility Goal, Assistive Device leg supervisor shuttle veneering Transfer Training Goal Transfer Training Goal, Date Established 12/15/17 Transfer Training Goal, Time to Achieve 30 days Transfer Training Goal, Activity Type oqc-aa-eynzb/oocbp-mw-fnz Transfer Train Goal, Stephens Level moderate assist (50% patient effort) Transfer [...] Needs at Discharge wheelchair Anticipated Discharge Disposition group home facility General Interventions Additional Documentation Planned Therapy [...] tasks Anticipated Discharge Disposition: inpatient rehabilitation facility, group home facility Pager: [phone] Peter Bynum, OT 12/15/2017 Occupational Therapy Rehabilitation [...] all times) Precautions Comments Non-weight bearing BLE. Gilbert brace on RLE, locked in extension at [...] (Bed Mobility) bed rails;draw sheet (HOB raised) Umorpa-ci-Rwd Stephens (Bed Mobility) minimum assist (75% patient effort);2 person assist required;verbal cues required;moderate assist (50% patient effort) Lph-sx-Isppcm Stephens (Bed Mobility) maximum assist (25% patient effort);2 [...] Pt issued and educated on use of medical terminologist. Additional Documentation Bathing Assessment/Training (Group);Upper Body Dressing Assessment/Training (Group);Grooming Assessment/Training (Group);IADL Assessment/Training: Comment (Row) Bathing Assessment/Training Assistive Devices (Bathing) (bath wipes) Position (Bathing) sitting Stephens Level (Bathing) moderate assist (50% patient effort) Impairments (Bathing) pain;ROM (range of motion) decreased;strength decreased;balance impaired Comment (Bathing) Pt performed sponge bath to her anterior thorax/abdomen. Pt assisted w/ her back,LE, and tina-care. Pt assisted donning shampoo cap and w/ application. Upper Body Dressing Assessment/Training Position (UB Dressing) sitting Stephens Level (UB Dressing) minimum assist (75% patient [...] (TBD) Anticipated Discharge Disposition inpatient rehabilitation facility, group home facility General Therapy Interventions Additional Documentation Planned [...] is interested and I will bring two [facility] for she and her yumi to [...] to advise, support. One sister works at [employer] [facility]. Her mother lives in the local area also. Behavioral Health History: no Substance Use/Abuse: none Other Pertinent/Service Specific Information: Patient will have FMLA and STD paperwork to have completed. Fiancee bringing that when he comes to visit today. Health/Prescription Coverage: Primary Insurance: CIGNA Secondary Insurance: N/A Prescription Coverage: CIGNA Preferred Pharmacy: none Other: none Primary Care Provider: Keiko Reddy MD [phone] Patient/Caregiver Goals of Treatment: Home when medically able. Potential Needs for Transition of Care: Rehab/SNF: patient anticipates she will need rehab/snf. Her preference would be [facility]. Home Health: yes at [...] transition of care planning. SHERI UPTON Pager: [phone] * Plan of Care - Jamar Wolf RN - 12/15/2017 4:24 AM EDT Problem: Patient Care Overview Goal: Plan of Care Review 12/14/17 0601 12/14/17 5150 Coping/Psychosocial Plan Of Care Reviewed With -- [...] Romero MD - 12/14/2017 4:06 PM EDT [facility] Operative Note Patient Name: Daphne Pickard : [id number] MR#: [id number] Case Date: 12/14/2017 Surgeon: Surgeon(s) and Role: [...] is a 52-year-old female who presented to [facility] with signs symptoms and radiographic findings consistent [...] in the preoperative holding area where green point lay ira was placed on the correct operative right [...] incision. A timeout was held according to [facility] protocol confirming thecorrect side site's and procedures. [...] patient's leg was then placed into a Gilbert brace locked in extension. Attention was then [...] Implant Name Type Inv. Item Serial No. Auto Bench Mechanic Lot No. LRB No. Used Action PLATE,VA-LCP,TIB,4H,RT,87MM ([id number]) - [id number] IMPLANTS PLATE,VA- LCP,TIB,4H,RT,87MM ([id number]) [employer], [employer]. - DEPUY SYNT Right 1 Implanted SCREW,CRTX,STAP,3.5X40MM ([id number]) - [id number] IMPLANTS SCREW,CRTX,STAP,3.5X40MM ([id number]) [employer], [employer]. - DEPU[employer] SYNT Right 1 Implanted SCREW,OMER,ANG,LCK,3.5X65MM ([id number]) - [id number] IMPLANTS SCREW,OMER,ANG,LCK,3.5X65MM ([id number]) [employer] - DEPU[employer] SYNT Right 3 Implanted SCREW,OMER,ANG,LCK,3.5X60MM ([id number]) - [id number] IMPLANTS SCREW,OMER,ANG,LCK,3.5X60MM ([id number]) [employer] - DEPU[employer]NT Right 1 Implanted SCREW,OMER,ANG,LCK,3.5X46MM ([id number]) - [id number] IMPLANTS SCREW,OMER,ANG,LCK,3.5X46MM ([id number]) [employer] - DE[employer] Right 1 Implanted SCREW,OMER,ANG,LCK,3.5X50MM ([id number]) - [id number] IMPLANTS SCREW,OMER,ANG,LCK,3.5X50MM ([id number]) [employer] - DE[employer] Right 1 Implanted SCREW,OMER,ANG,LCK,3.5X56MM ([id number]) - [id number] IMPLANTS SCREW,OMER,ANG,LCK,3.5X56MM ([id number]) [employer] - DE[employer]NT Right 1 Implanted SCREW,OMER,ANG,LCK,3.5X32MM ([id number]) - [id number] IMPLANTS SCREW,OMER,ANG,LCK,3.5X32MM ([id number]) [employer] - DE[employer] Right 1 Implanted SCREW,CNCL,STAP,P-T,3.5X70MM ([id number]) - [id number] IMPLANTS SCREW,CNCL,STAP,P- T,3.5X70MM ([id number])[employer] - DEPUY SYNT Right 1 Implanted BONE,CRUSHED,CANCELLOUS,30CC ([id number]) (AUTOREQ) - [id number] IMPLANTS BONE,CRUSHED,CANCELLOUS,30CC([id number]) (AUTOREQ) [facility] Right 1 Implanted PLATE,VLRDSTL,LCP,6H,RT,2.4MM ([id number]) - [id number] IMPLANTS PLATE,VLRDSTL,LCP,6H,RT,2.4MM ([id number]) [employer] - DEPU[employer] SYNT Right 1 Implanted PLATE,RDCTN,WIRTHRD TIP,1.25MM ([id number]) - [id number] IMPLANTS PLATE,RDCTN,WIRTHRD TIP,1.25MM ([id number]) [employer] - DEPUY SYNT Right 3 Implanted and Explanted SCREW,VA,LCK,STAR,2.4X20MM ([id number]) - [id number] IMPLANTS SCREW,VA,LCK,STAR,2.4X20MM ([id number]) [employer] - DEPUY SYNT Right 3 Implanted SCREW,VA,LCK,STAR,2.4X14MM ([id number]) - [id number] IMPLANTS SCREW,VA,LCK,STAR,2.4X14MM ([id number]) [employer] - DEPUY SYNT Right 1 Implanted SCREW,VA,LCK,STAR,2.4X18MM ([id number]) - [id number] IMPLANTS SCREW,VA,LCK,STAR,2.4X18MM ([id number]) [employer] - DEPUY SYNT Right 1 Implanted SCREW,CRTX,STAP,STAR,2.7X12MM ([id number]) - [id number] IMPLANTS SCREW,CRTX,STAP,STAR,2.7X12MM ([id number]) [employer] - DEPUY SYNT Right 3 Implanted Infection Bundle used? No Attestation: Case Date: 12/14/2017 I was present and I participated during the entire procedure (does not need to include opening and closing). Reinaldo Romero MD 12/14/2017 * Brief Op Note - Reinaldo Romero MD - 12/14/2017 1:38 PM EDT Brief Operative Note Patient Name: Daphne Pickard : [id number] MR#: [id number] Case Date: 12/14/2017 Surgeon: Surgeon(s) and Role: [...] following the injury She was taken to [facility] where imaging revealed right distal radius fracture, right tibial plateau fracture and left posterior wall acetabular fracture. She was then transferred to [facility] for further management. Patient denies numbness, tingling, weakness, head strike, LOC, or other injuries. Past Medical History: Patient Active Problem List Diagnosis Code ??? Trauma T14.90XA Past Surgical History: Past Surgical History: Procedure Laterality Date ??? PRO COLONOSCOPY, DIAGNOSTIC N/A 06/25/2017 COLONOSCOPY, DIAGNOSTIC performed by Kimani Rojas MD at [facility] ENDOSCOPY Allergies Allergen Reactions ??? Gabapentin (Bulk) [...] distributions Motor intact shoulder abduction, elbow flexion/extension, weigh tank operator, EPL, AIN, IO Brisk capillary refill distally [...] (5/5) shoulder abduction, elbow flexion/extension, wrist flexion/extension, weigh tank operator, EPL,AIN, IO Brisk capillary refill distally 2+ [...] the patient elected to proceed. Per the [facility] Bed Side Check List: the patient was [...] and treatment. Please call the orthopaedic resident convention manager with any questions or concerns. ?? Nir Bhatti MD Orthopaedic Surgery Pager: [phone] documented in this encounter Plan of Treatment Upcoming Encounters Date Type Department Care Team (Late st Contact Info) Description 01/31/2024 9:15 AM EDT Appointment Hematology [place] [address] 01/31/2024 10:20 AM EDT Office Visit [place] [address] Rebecca Small MD [facility] DR [place] [address] 08/01/2024 11:30 AM EDT Office Visit Dermatology at [address] [phone] Phan Engle MD [facility] DR JESS HERNANDE[place] [address] Scheduled Orders Name Type Priority Associated Diagnoses [...] 12/22/2017 9:56 AM EDT BASIC METABOLIC PANEL Routine 12/22/2017 9:56 AM EDT HEMOGRAM Routine 12/21/2017 7:04 AM EDT BASIC METABOLIC PANEL STAT 12/21/2017 7:04 AM EDT XR PELVIS MIN 3 VIEWS Routine 12/20/2017 1:34 PM EDT XR FLUORO NO RAD <1HR - OR USE Routine 12/20/2017 9:40 AM EDT ABORH RECHECK STATUS STAT 12/20/2017 8:08 AM EDT ABO/RH TYPING STAT 12/20/2017 8:08 AM EDT ANTIBODY SCREEN STAT 12/20/2017 8:08 AM EDT TYPE AND SCREEN ([facility]/CGP/ZAHIDA) STAT 12/20/2017 8:08 AM EDT MODIFIER PELVIC [...] 12/17/2017 6:55 AM EDT BASIC METABOLIC PANEL Routine 12/17/2017 6:55 AM EDT HEMOGRAM STAT 12/15/2017 8:22 AM EDT DIFFERENTIAL, AUTOMATED STAT 12/16/19 18 8:22 AM EDT CBC (WITH DIFF) STAT 12/15/2017 8:22 AM EDT MAGNESIUM Routine 12/15/2017 8:22 AM EDT BASIC METABOLIC PANEL STAT 12/15/2017 8:22 AM EDT XR PELVIS [...] 12/14/2017 12:30 AM EDT TYPE AND SCREEN ([facility]/ZAHIDA) STAT 12/14/2017 12:30 AM EDT L-LACTATE2 WHOLE BLOOD Routine 8 12:15 AM EDT IMPLANTABLE DEVICES SCAN 12/14/2017 12:00 AM EDT WEATHERIZATION OPERATIONS MANAGER SCAN 12/14/2017 12:00 AM EDT HEMOGRAM STAT 12/14/2017 12:00 AM EDT DIFFERENTIAL, AUTOMATED STAT 12/15/19 18 12:00 AM EDT GOLD TUBE HOLD STAT 12/14/2017 12:00 AM EDT APTT STAT 12/14/2017 12:00 AM EDT PROTHROMBIN TIME STAT 12/14/2017 12:0 0 AM EDT CBC (WITH DIFF) STAT 12/14/2017 12:00 AM EDT ETHANOL LEVEL STAT 12/14/2017 12:00 AM EDT BASIC METABOLIC PANEL STAT 12/14/2017 12:00 AM EDT URINALYSIS MICROSCOPIC EXAM STAT 12/13/2017 11:55 PM EDT URINALYSIS WITH REFLEX CULTURE STAT 12/13/2017 11:55 PM EDT RAPID DRUG SCREEN, URINE STAT 12/13/2017 11:54 PM EDT RAPID DRUG [...] is no evidence of complication. 10:32 AM Renialdo Romero MD IMG DX ORDERABLES * XR Knee 1-2 Views Right (Generic) (01/04/2018 9:39 AM EDT) Anatomical Region Laterality Modality Knee Right Digital Radiogra phy Impressions 01/04/2018 11:45 AM EDT Unchanged alignment of the uncomplicated cortical bocah-fdw-njljd fixation of the tibial plateau fracture without [...] the depressed lateral tibial plateau fracture with temple of near-anatomic alignment. No radiographic evidence of [...] the depressed lateral tibial plateau fracture with temple ofnear-anatomic alignment. No radiographic evidence of hardware complication. The fracturelines remain visible on the AP view. Interval resolution of the postoperative soft tissue air. IMPRESSION Unchanged alignment of the uncomplicated cortical hiiyz-vjr-snsjx fixationof the tibial plateau fracture without radiographic [...] * Differential, Automated (12/22/2017 9:56 AM EDT) Neutrophil % 57.1 % [facility] Neutrophil Absolute 3.99 1.70 - 6.10 x10(3)/[facility] Lymph % 27.7 % [facility] Lymphocytes Abs 1.9 0.9 - 3.2 x10(3)/[facility] Monocyte % 13.5 % [facility] Monocyte Abs 0.9 0.3 - 0.9 x10(3)/[facility] Eos % 0.9 % [facility] Eosinophils Abs 0.1 0.0 - 0.4 x10(3)/[facility] Basophil % 0.4 % [facility] Baso Absolute 0.0 0.0 - 0.1 x10(3)/[facility] Immature Gran % 0.40 % [facility] Comment: Immature granulocytes(IG's)percentage and absolute count will include metamyelocytes, myelocytes, and promyelocytes. Blood smears from CBCs yielding IG's will be scanned manually for concordance. If this scan disagrees with the automated IG or if promyelocytes are noted, a manual differential will be performed. Immature Gran Absolute 0.03 0.00 - 0.04 x10(3)/[facility] Blood specimen (specimen) 12/22/2017 9:56 AM EDT 12/22/2017 10:10 AM EDT Narrative Resulting Agency Comment Spec In Lab Vani Hook EDGE STITCHER HEMATOLOGY ORDERABL ES Performing Organization Address City/[facility]/ZIP Co de Phone Number [facility] [place] [address] * (ABNORMAL) Hemogram (12/22/2017 9:56 AM EDT) White Blood Cell 7.0 4.0 - 9.5 x10(3)/mc L [facility] Red Blood Cell 2.92(L) 4.00 - 5.21 x10(6)/mc L [facility] Hemoglobin 9.1(L) 11.7 - 15.5 gm/dL [facility] Hematocrit 27.1(L) 35.7 - 45.8 % [facility] Mean Cell Volume 92.8 82.6 - 94.4 fL [facility] Mean Cell Hemoglobin 31.2 27.1 - 32.0 pg [facility] Mean Cell Hemoglobin Concentration 33.6 31.7 - 35.0 gm/dL [facility] Platelet 309 145 - 357 x10(3)/mc L [facility] RDW Standard Deviation 38.9 37.0 - 46.0 fL [facility] RDW coefficient of variation 11.5 11.5 - 14.1 % [facility] Mean Platelet Volume 8.4 7.6 - 12.9 fL [facility] NRBC% auto 0.0 % [facility] NRBC Absolute 0.000 0.000 - 0.000 x10(3)/mc L [facility] Blood specimen (specimen) 12/22/2017 9:56 AM EDT 12/22/2017 10:10 AM EDT Narrative Resulting Agency Comment Spec In Lab Vani Flores Monster EDGE STITCHER HEMATOLOGY ORDERABL ES [facility] [place] [address] * (ABNORMAL) Basic Metabolic Panel (non-fasting) (12/22/2017 9:56 AM EDT) Glucose 162 65 - 199 mg/dL [facility] Comment:Diabetes: >=200 mg/d L plus symptoms Blood Urea Nitrogen 11 8 - 18 mg/dL [facility] Creatinine 0.73 0.70 - 1.20 mg/dL [facility] Sodium 135 135 - 145 mmol/L [facility] Potassium 4.0 3.5 - 5.0 mmol/L [facility] Comment: Please note: ??Patients with WBC >100,000 may have falsely elevated Potassium levels. ??For accurate Potassium quantification in these patients send serum separator tube (gold top) for subsequent determinations. ??Contact the Clinical Chemistry Laboratory if there are any questions. Chloride 97(L) 98 - 107 mmol/L [facility] Carbon Dioxide 25 22 - 31 mmol/L [facility] Anion Gap 13 5 - 15 mmol/L [facility] Calcium 8.7 8.5 - 10.5 mg/dL [facility] Est Glomerular Filtration Rate 95 >=60 mL/min/1. 73 m?? [facility] Comment: The eGFR was calculated using the CKD-EPI equation. As with all creatinine based estimates of kidney function, eGFR values calculated with the CKD-EPI equation are not accurate in patients with acute kidney failure, extremes of body mass or the acutely ill. [email or web address]/[facility]ANYnkf eGFR 110 >=60 mL/min/1. 73 m?? [facility] Comment: The eGFR was calculated using the CKD-EPI equation. As with all creatinine based estimates of kidney function, eGFR values calculated with the CKD-EPI equation are not accurate in patients with acute kidney failure, extremes of body mass or the acutely ill. [email or web address]ANYnkf Blood specimen (specimen) 12/22/2017 9:56 AM EDT 12/22/2017 10:10 AM EDT Narrative Resulting Agency Comment Spec In Lab Vani Hook JOSÉ LUIS CHEMISTRY ORDERABLE S [facility] [place] [address] * (ABNORMAL) Basic Metabolic Panel (non-fasting) (12/21/2017 7:04 AM EDT) Glucose 90 65 - 199 mg/dL [facility] Comment:Diabetes: >=200 mg/d L plus symptoms Blood Urea Nitrogen 15 8 - 18 mg/dL [facility] Creatinine 0.73 0.70 - 1.20 mg/dL [facility] Sodium 138 135 - 145 mmol/L [facility] Potassium 3.9 3.5 - 5.0 mmol/L [facility] Comment: Please note: ??Patients with WBC >100,000 may have falsely elevated Potassium levels. ??For accurate Potassium quantification in these patients send serum separator tube (gold top) for subsequent determinations. ??Contact the Clinical Chemistry Laboratory if there are any questions. Chloride 100 98 - 107 mmol/L [facility] Carbon Dioxide 25 22 - 31 mmol/L [facility] Anion Gap 13 5 - 15 mmol/L [facility] Calcium 8.4(L) 8.5 - 10.5 mg/dL [facility] Est Glomerular Filtration Rate 95 >=60 mL/min/1. 73 m?? [facility] Comment: The eGFR was calculated using the CKD-EPI equation. As with all creatinine based estimates of kidney function, eGFR values calculated with the CKD-EPI equation are not accurate in patients with acute kidney failure, extremes of body mass or the acutely ill. [email or web address] eGFR 110 >=60 mL/min/1. 73 m?? [facility] Comment: The eGFR was calculated using the CKD-EPI equation. As with all creatinine based estimates of kidney function, eGFR values calculated with the CKD-EPI equation are not accurate in patients with acute kidney failure, extremes of body mass or the acutely ill. http://[email or web address]/[facility]ANYnkf Blood specimen (specimen) 12/21/2017 7:04 AM EDT 12/21/2017 7:25 AM EDT Narrative Resulting Agency Comment Spec In Lab Reinaldo Romero MD CHEMISTRY ORDERABLES [facility] [place] [address] * (ABNORMAL) Hemogram (12/21/2017 7:04 AM EDT) White Blood Cell 6.8 4.0 - 9.5 x10(3)/[facility] Red Blood Cell 2.75(L) 4.00 - 5.21 x10(6)/mc L [facility] Hemoglobin 8.7(L) 11.7 - 15.5 gm/dL [facility] Hematocrit 25.6(L) 35.7 - 45.8 % [facility] Mean Cell Volume 93.1 82.6 - 94.4 fL [facility] Mean Cell Hemoglobin 31.6 27.1 - 32.0 pg [facility] Mean Cell Hemoglobin Concentration 34.0 31.7 - 35.0 gm/dL [facility] Platelet 253 145 - 357 x10(3)/mc L [facility] RDW Standard Deviation 39.4 37.0 - 46.0 [facility] RDW coefficient of variation 11.7 11.5 - 14.1 % [facility] Mean Platelet Volume 8.7 7.6 - 12.9 fL [facility] NRBC% auto 0.0 % [facility] NRBC Absolute 0.000 0.000 - 0.000 x10(3)/ L [facility] Blood specimen (specimen) 12/21/2017 7:04 AM EDT 12/21/2017 7:25 AM EDT Narrative Resulting Agency Comment Spec In Lab Reinaldo Romero MD HEMATOLOGY ORDERABLE S [facility] [place] [address] * XR Pelvis Judet or In Out [...] - OR Use (12/20/2017 9:40 AM EDT) [facility] RAD - 12/20/2017 9:41 AM EDT This order does not need a radiologist interpretation. ?? Tete Talamantes MD IMG FLUORO ORDERABLE S [place], [place] * ABORH Recheck Status (12/20/2017 8:08 AM EDT) ABORH Type Recheck Completed [facility] Blood specimen (specimen) 12/20/2017 8:08 AM EDT 12/20/2017 8:39 AM EDT Narrative Resulting Agency Comment Spec In Lab Joyce Parra MD BLOOD BANK LAB ORDER NITZA Performing Organization Address City/[facility]/ZIP Co de Phone Number [facility] [place] [address] * Antibody screen (12/20/2017 8:08 AM EDT) Ab Screen Interp Negative [facility] Expires at [id number] on: 12/23/2017 [facility] Blood specimen (specimen) 12/20/2017 8:08 AM EDT 12/20/2017 8:39 AM EDT Narrative Resulting Agency Comment Spec In Lab Joyce Parra MD BLOOD BANK LAB ORDER NITZA Performing Organization Address City/[facility]/ZIP Co de Phone Number [facility] [place] [address] * ABO/Rh Typing (12/20/2017 8:08 AM EDT) ABORH Type A Neg [facility] Blood specimen (specimen) 12/20/2017 8:08 AM EDT 12/20/2017 8:39 AM EDT Narrative Resulting Agency Comment Spec In Lab Joyce Parra MD BLOOD BANK LAB ORDER NITZA [facility] [place] [address] * Differential, Automated (12/17/2017 6:55 AM EDT) Neutrophil % 60.2 % [facility] Neutrophil Absolute 4.23 1.70 - 6.10 x10(3)/[facility] [facility] Lymph % 30.2 % [facility] Lymphocytes Abs 2.1 0.9 - 3.2 x10(3)/[facility] Monocyte % 8.0 % [facility] Monocyte Abs 0.6 0.3 - 0.9 x10(3)/[facility] LAB[facility] Eos % 1.1 % [facility] Eosinophils Abs 0.1 0.0 - 0.4 x10(3)/[facility] LAB[facility] Basophil % 0.4 % [facility] Baso Absolute 0.0 0.0 - 0.1 x10(3)/[facility] LAB[facility]ORY Immature Gran % 0.10 % [facility] Comment: Immature granulocytes(IG's)percentage and absolute count will include metamyelocytes, myelocytes, and promyelocytes. Blood smears from CBCs yielding IG's will be scanned manually for concordance. If this scan disagrees with the automated IG or if promyelocytes are noted, a manual differential will be performed. Immature Gran Absolute 0.01 0.00 - 0.04 x10(3)/[facility] LAB[facility] Blood specimen (specimen) 12/17/2017 6:55 AM EDT 12/17/2017 7:04 AM EDT Narrative Resulting Agency Comment Spec In Lab Rajinder Gracia MD HEMATOLOGY OR DERABLES [facility] [place] [address] * (ABNORMAL) Hemogram (12/17/2017 6:55 AM EDT) White Blood Cell 7.0 4.0 - 9.5 x10(3)/mc L [facility] Red Blood Cell 3.36(L) 4.00 - 5.21 x10(6)/mc L [facility] Hemoglobin 10.9(L) 11.7 - 15.5 gm/dL [facility] Hematocrit 31.1(L) 35.7 - 45.8 % [facility] Mean Cell Volume 92.6 82.6 - 94.4 fL [facility] Mean Cell Hemoglobin 32.4(H) 27.1 - 32.0 pg [facility] Mean Cell Hemoglobin Concentration 35.0 31.7 - 35.0 gm/dL [facility] Platelet 195 145 - 357 x10(3)/mc L [facility] RDW Standard Deviation 38.9 37.0 - 46.0 [facility] LABORATORY RDW coefficient of variation 11.5 11.5 - 14.1 % [facility] Mean Platelet Volume 9.0 7.6 - 12.9 fL [facility] NRBC% auto 0.0 % [facility] NRBC Absolute 0.000 0.000 - 0.000 x10(3)/mc L [facility] Blood specimen (specimen) 12/17/2017 6:55 AM EDT 12/17/2017 7:04 AM EDT Narrative Resulting Agency Comment Spec In Lab Rajinder Gracia MD HEMATOLOGY OR DERABLES Performing Organization Address City/State/[facility] Co de Phone Number [facility] [place] [address] * (ABNORMAL) Basic Metabolic Panel (non-fasting) (12/17/2017 6:55 AM EDT) Glucose 91 65 - 199 mg/dL [facility] Comment:Diabetes: >=200 mg/d L plus symptoms Blood Urea Nitrogen 11 8 - 18 mg/dL [facility] Creatinine 0.63(L) 0.70 - 1.20 mg/dL [facility] Sodium 142 135 - 145 mmol/L [facility] Potassium 3.9 3.5 - 5.0 mmol/L [facility] Comment: Please note: ??Patients with WBC >100,000 may have falsely elevated Potassium levels. ??For accurate Potassium quantification in these patients send serum separator tube (gold top) for subsequent determinations. ??Contact the Clinical Chemistry Laboratory if there are any questions. Chloride 102 98 - 107 mmol/L [facility] Carbon Dioxide 26 22 - 31 mmol/L [facility] Anion Gap 14 5 - 15 mmol/L [facility] Calcium 9.0 8.5 - 10.5 mg/dL [facility] Est Glomerular Filtration Rate 103 >=60 mL/min/1. 73 m?? [facility] Comment: The eGFR was calculated using the CKD-EPI equation. As with all creatinine based estimates of kidney function, eGFR values calculated with the CKD-EPI equation are not accurate in patients with acute kidney failure, extremes of body mass or the acutely ill. http://Sifteo/[facility]nkdep http://Sifteo/DHMCnkf eGFR 120 >=60 mL/min/1. 73 m?? [facility] Comment: The eGFR was calculated using the CKD-EPI equation. As with all creatinine based estimates of kidney function, eGFR values calculated with the CKD-EPI equation are not accurate in patients with acute kidney failure, extremes of body mass or the acutely ill. http://Sifteo/HealthRallynkdep http://Sifteo/DHMCnkf Blood specimen (specimen) 12/17/2017 6:55 AM EDT 12/17/2017 7:04 AM EDT Narrative Resulting Agency Comment Spec In Lab Russell Lewis MD CHEMISTRY ORDERABLE S [facility] [place] [address] * (ABNORMAL) Differential, Automated (12/15/2017 8:22 AM EDT) Neutrophil % 67.1 % [facility] Neutrophil Absolute 5.44 1.70 - 6.10 x10(3)/[facility] LABORATORY Lymph % 20.4 % [facility] Lymphocytes Abs 1.7 0.9 - 3.2 x10(3)/[facility] LABORATORY Monocyte % 12.2 % [facility] Monocyte Abs 1.0(H) 0.3 - 0.9 x10(3)/[facility] LABORATORY Eos % 0.0 % [facility] Eosinophils Abs 0.0 0.0 - 0.4 x10(3)/[facility] LABORATORY Basophil % 0.1 % [facility] Baso Absolute 0.0 0.0 - 0.1 x10(3)/[facility] LABORATORY Immature Gran % 0.20 % [facility] Comment: Immature granulocytes(IG's)percentage and absolute count will include metamyelocytes, myelocytes, and promyelocytes. Blood smears from CBCs yielding IG's will be scanned manually for concordance. If this scan disagrees with the automated IG or if promyelocytes are noted, a manual differential will be performed. Immature Gran Absolute 0.02 0.00 - 0.04 x10(3)/[facility] LABORATORY Blood specimen (specimen) 12/15/2017 8:22 AM EDT 12/15/2017 8:32 AM EDT Narrative Resulting Agency Comment Spec In Lab Elver Huddleston MD HEMATOLOGY ORDERABLE S [facility] [place] [address] * (ABNORMAL) Hemogram (12/15/2017 8:22 AM EDT) White Blood Cell 8.1 4.0 - 9.5 x10(3)/[facility] LABORATORY Red Blood Cell 3.21(L) 4.00 - 5.21 x10(6)/mc L [facility] Hemoglobin 10.5(L) 11.7 - 15.5 gm/dL [facility] Hematocrit 29.6(L) 35.7 - 45.8 % [facility] Mean Cell Volume 92.2 82.6 - 94.4 fL [facility] Mean Cell Hemoglobin 32.7(H) 27.1 - 32.0 pg [facility] Mean Cell Hemoglobin Concentration 35.5(H) 31.7 - 35.0 gm/dL [facility] Platelet 145 145 - 357 x10(3)/mc L [facility] RDW Standard Deviation 39.6 37.0 - 46.0 fL [facility] RDW coefficient of variation 11.6 11.5 - 14.1 % [facility] Mean Platelet Volume 8.7 7.6 - 12.9 fL [facility] NRBC% auto 0.0 % [facility] NRBC Absolute 0.000 0.000 - 0.000 x10(3)/mc L [facility] Blood specimen (specimen) 12/15/2017 8:22 AM EDT 12/15/2017 8:32 AM EDT Narrative Resulting Agency Comment Spec In Lab Elver Huddleston MD HEMATOLOGY ORDERABLE S Performing Organization Address City/[facility]/ZIP Co de Phone Number [facility] [place] [address] * Magnesium (12/15/2017 8:22 AM EDT) Magnesium 0.85 0.69 - 1.07 mmol/L [facility] Blood specimen (specimen) 12/15/2017 8:22 AM EDT 12/15/2017 8:33 AM EDT Narrative Resulting Agency Comment Spec In Lab Priya Whitaker APRN CHEMISTRY ORDERABLES Performing Organization Address City/[facility]/ZIP Co de Phone Number [facility] [place] [address] * (ABNORMAL) Basic Metabolic Panel (non-fasting) (12/15/2017 8:22 AM EDT) Glucose 102 65 - 199 mg/dL [facility] Comment:Diabetes: >=200 mg/d L plus symptoms Blood Urea Nitrogen 9 8 - 18 mg/dL [facility] Creatinine 0.83 0.70 - 1.20 mg/dL [facility] Sodium 143 135 - 145 mmol/L [facility] Potassium 3.8 3.5 - 5.0 mmol/L [facility] Comment: Please note: ??Patients with WBC >100,000 may have falsely elevated Potassium levels. ??For accurate Potassium quantification in these patients send serum separator tube (gold top) for subsequent determinations. ??Contact the Clinical Chemistry Laboratory if there are any questions. Chloride 103 98 - 107 mmol/L [facility] Carbon Dioxide 25 22 - 31 mmol/L [facility] Anion Gap 15 5 - 15 mmol/L [facility] Calcium 8.4(L) 8.5 - 10.5 mg/dL [facility] Est Glomerular Filtration Rate 81 >=60 mL/min/1. 73 m?? [facility] Comment: The eGFR was calculated using the CKD-EPI equation. As with all creatinine based estimates of kidney function, eGFR values calculated with the CKD-EPI equation are not accurate in patients with acute kidney failure, extremes of body mass or the acutely ill. http://Sifteo/HealthRallynkdep http://Sifteo/[facility]nkf eGFR 94 >=60 mL/min/1. 73 m?? [facility] Comment: The eGFR was calculated using the CKD-EPI equation. As with all creatinine based estimates of kidney function, eGFR values calculated with the CKD-EPI equation are not accurate in patients with acute kidney failure, extremes of body mass or the acutely ill. http://Sifteo/HealthRallynkdep http://Sifteo/[facility]f Blood specimen (specimen) 12/15/2017 8:22 AM EDT 12/15/2017 8:32 AM EDT Narrative Resulting Agency Comment Spec In Lab Russell Lewis MD CHEMISTRY ORDERABLE S [facility] [place] [address] * XR Pelvis Judet or In Out [...] is now near anatomic. Russell Lewis MD G DX ORDERABLES * XR Fluoro No Rad <1Hr - OR Use (12/14/2017 1:13 PM EDT) Narrative [facility] - 12/14/2017 1:13 PM EDT This order does not need a radiologist interpretation. ?? Reinaldo Romero MD [facility] FLUORO ORDERABLE S [place], [place] * XR Fluoro No Rad <1Hr - OR Use (12/14/2017 12:20 PM EDT) Narrative [facility] - 12/14/2017 1:12 PM EDT This order does not need a radiologist interpretation. ?? Reinaldo Romero MD IMG FLUORO ORDERABLE S Performing Organization Address [facility] Co de Phone Number [place], [place] * XR Fluoro No Rad <1Hr - OR Use (12/14/2017 11:39 AM EDT) Narrative RAD - 12/14/2017 11:39 AM EDT This order does not need a radiologist interpretation. ?? Reinaldo Romero MD IMG FLUORO ORDERABLE S Performing Organization Address [facility] Co de Phone Number [place], [place] * CT Knee wo Contrast Right [...] at 12/14/2017 9:01 AM Russell Lewis MD IM DX ORDERABLES * XR Fluoro No Rad <1Hr - OR Use (12/14/2017 3:32 AM EDT) Narrative [facility] - 12/14/2017 3:32 AM EDT This order does not need a radiologist interpretation. ?? Russell SNEED FLUORO ORDERABL ES Performing Organization Address City/State/[facility] de Phone Number [place], [place] * XR Forearm Right (Generic) (12/14/2017 [...] and regional physical examination. Russell Lewis MD [facility] DX ORDERABLES * XR Tibia Fibula Right [...] No other fracture identified. Russell Lewis MD [facility] DX ORDERABLES * XR Shoulder Right (Generic) [...] 12:30 AM EDT) ABORH Type Recheck Completed [facility] Blood specimen (specimen) 12/14/2017 12:30 AM EDT 12/14/2017 12:30 AM EDT Narrative Resulting Agency Comment Spec In Lab Russell Lewis MD BLOOD BANK LAB ORDUbaldo MULLERELSI Performing Organization Address [facility] Co de Phone Number [facility] [place] [address] * Antibody screen (12/14/2017 12:30 AM EDT) Ab Screen Interp Negative [facility] Expires at [id number] on: 12/17/2017 [facility] Blood specimen (specimen) 12/14/2017 12:30 AM EDT 12/14/2017 12:30 AM EDT Narrative Resulting Agency Comment Spec In Lab Russell Lewis MD BLOOD BANK LAB ORDE LAUREANO Performing Organization Address City/[facility]/ZIP Co de Phone Number [facility] [place] [address] * ABO/Rh Typing (12/14/2017 12:30 AM EDT) ABORH Type A Neg [facility] Blood specimen (specimen) 12/14/2017 12:30 AM EDT 12/14/2017 12:30 AM EDT Narrative Resulting Agency Comment Spec In Lab Russell Lewis MD BLOOD BANK LAB ORDE RENZOELSI Performing Organization Address City/[facility]/ZIP Co de Phone Number [facility] [place] [address] * L-Lactate2 Whole Blood (12/14/2017 12:15 AM EDT) [facility] Lactate WB 1.7 0.5 - 2.2 mmol/L [facility] Blood specimen (specimen) 12/14/2017 12:15 AM EDT 12/14/2017 12:15 AM EDT Russell Lewis MD CHEMISTRY ORDERABLE S Performing Organization Address [facility] Co de Phone Number [facility] [place] [address] * SCAN DOC: IMPLANTABLE DEVICES (12/14/2017 12:00 AM EDT) Narrative 12/14/2017 12:00 AM EDT Ordered by an unspecified provider. Scanning Provider MEDIA MGR SCAN EXT O RDR/RSLT * Gold Tube HOLD (12/14/2017 12:00 AM EDT) [facility] Gold Hold Sample in lab. [facility] Blood specimen (specimen) Venous Draw / Unknown 12/14/2017 12/14/2017 12:14 AM EDT Chinedu Ortega MD CHEMISTRY ORDERABLES Performing Organization Address [facility]/ZIP Co de Phone Number [facility] [place] [address] * (ABNORMAL) Differential, Automated (12/14/2017 12:00 AM EDT) [facility] Neutrophil % 83.9 % [facility] Neutrophil Absolute 9.56(H) 1.70 - 6.10 x10(3)/mc L [facility] Lymph % 9.8 % [facility] Lymphocytes Abs 1.1 0.9 - 3.2 x10(3)/mc L [facility] Monocyte % 5.8 % [facility] Monocyte Abs 0.7 0.3 - 0.9 x10(3)/[facility] LABORATORY Eos % 0.0 % [facility] Eosinophils Abs 0.0 0.0 - 0.4 x10(3)/[facility] LABORATORY Basophil % 0.2 % [facility] Baso Absolute 0.0 0.0 - 0.1 x10(3)/[facility] LABORATORY Immature Gran % 0.30 % [facility] Comment: Immature granulocytes(IG's)percentage and absolute count will include metamyelocytes, myelocytes, and promyelocytes. Blood smears from CBCs yielding IG's will be scanned manually for concordance. If this scan disagrees with the automated IG or if promyelocytes are noted, a manual differential will be performed. Immature Gran Absolute 0.03 0.00 - 0.04 x10(3)/[facility] LABORATORY Blood specimen (specimen) 12/14/2017 12/14/2017 12:07 AM EDT Narrative Resulting Agency Comment Spec In Lab Russell Lewis MD HEMATOLOGY ORDERABL ES [facility] [place] [address] * (ABNORMAL) Hemogram (12/14/2017 12:00 AM EDT) White Blood Cell 11.4(H) 4.0 - 9.5 x10(3)/[facility] LABORATORY Red Blood Cell 3.78(L) 4.00 - 5.21 x10(6)/[facility] LABORATORY Hemoglobin 12.2 11.7 - 15.5 gm/dL [facility] Hematocrit 35.0(L) 35.7 - 45.8 % [facility] Mean Cell Volume 92.6 82.6 - 94.4 fL [facility] Mean Cell Hemoglobin 32.3(H) 27.1 - 32.0 pg [facility] Mean Cell Hemoglobin Concentration 34.9 31.7 - 35.0 gm/dL [facility] Platelet 195 145 - 357 x10(3)/mc L [facility] RDW Standard Deviation 40.1 37.0 - 46.0 [facility] LABORATORY RDW coefficient of variation 11.9 11.5 - 14.1 % [facility] Mean Platelet Volume 8.5 7.6 - 12.9 [facility] LABORATORY NRBC% auto 0.0 % [facility] NRBC Absolute 0.000 0.000 - 0.000 x10(3)/mc L [facility] Blood specimen (specimen) 12/14/2017 12/14/2017 12:07 AM EDT Narrative Resulting Agency Comment Spec In Lab Russell Lewis MD HEMATOLOGY ORDERABL ES Performing Organization Address [facility] Co de Phone Number [facility] [place] [address] * Ethanol Level (12/14/2017 12:00 AM EDT) Pathologist [facility] Ethanol <100 <=99 mg/L [facility] Comment: Greater than 800 mg/L (0.08%) should be considered intoxicated. 3400 to 4500 mg/L (0.34 - 0.45%) is considered severe intoxication. Greater than 5500 mg/L (0.55%) is usually fatal. Blood specimen (specimen) 12/14/2017 12/14/2017 12:07 AM EDT Narrative Resulting Agency Comment Spec In Lab Russell Lewis MD CHEMISTRY ORDERABLE S Performing Organization Address City/[facility]/ZIP Co de Phone Number [facility] [place] [address] * (ABNORMAL) APTT (12/14/2017 12:00 AM EDT) Partial Thromboplastin Time 24(L) 25 - 37 sec [facility] Comment: The PTT is NOT appropriate for heparin monitoring. Use the Anti-Xa level for heparin monitoring (HEP UFH) or LMWH monitoring (HEP LMW). A PTT less than 37 seconds generally indicates adequate hemostasis. Blood specimen (specimen) 12/14/2017 12/14/2017 12:07 AM EDT Narrative Resulting Agency Comment Spec In Lab Russell Lewsi MD HEMATOLOGY ORDERABL ES Performing Organization Address [facility] de Phone Number [facility] [place] [address] * Prothrombin Time (12/14/2017 12:00 AM EDT) Prothrombin Time 11.2 9.4 - 12.5 sec [facility] International Normalization Ratio 1.0 [facility] Comment: An INR <2.0 indicates [...] MD HEMATOLOGY ORDERABL ES Performing Organization Address [facility] de Phone Number [facility] [place] [address] * (ABNORMAL) Basic Metabolic Panel (non-fasting) (12/14/2017 12:00 AM EDT) Glucose 124 65 - 199 mg/dL [facility] Comment:Diabetes: >=200 mg/d L plus symptoms Blood Urea Nitrogen 13 8 - 18 mg/dL [facility] Creatinine 0.92 0.70 - 1.20 mg/dL [facility] Sodium 140 135 - 145 mmol/L [facility] Potassium 4.6 3.5 - 5.0 mmol/L [facility] Comment: Please note: ??Patients with WBC >100,000 may have falsely elevated Potassium levels. ??For accurate Potassium quantification in these patients send serum separator tube (gold top) for subsequent determinations. ??Contact the Clinical Chemistry Laboratory if there are any questions. Chloride 103 98 - 107 mmol/L [facility] Carbon Dioxide 26 22 - 31 mmol/L [facility] Anion Gap 11 5 - 15 mmol/L [facility] Calcium 8.4(L) 8.5 - 10.5 mg/dL [facility] Est Glomerular Filtration Rate 72 >=60 mL/min/1. 73 m?? [facility] Comment: The eGFR was calculated using the CKD-EPI equation. As with all creatinine based estimates of kidney function, eGFR values calculated with the CKD-EPI equation are not accurate in patients with acute kidney failure, extremes of body mass or the acutely ill. http://Sifteo/[facility]allynkdep http://Sifteo/HealthRallynkf eGFR 83 >=60 mL/min/1. 73 m?? [facility] Comment: The eGFR was calculated using the CKD-EPI equation. As with all creatinine based estimates of kidney function, eGFR values calculated with the CKD-EPI equation are not accurate in patients with acute kidney failure, extremes of body mass or the acutely ill. http://Sifteo/HealthRallynkdep http://Sifteo/HealthRallynkf Blood specimen (specimen) 12/14/2017 12/14/2017 12:07 AM EDT Narrative Resulting Agency Comment Spec In Lab Russell Lewis MD CHEMISTRY ORDERABLE S [facility] [place] [address] * SCAN DOC: WEATHERIZATION OPERATIONS MANAGER (12/14/2017 12:00 AM EDT) Anatomical Region Laterality Modality Other Narrative 12/14/2017 12:00 AM EDT Ordered by an unspecified provider. Scanning Provider MEDIA MGR SCAN EXT O RDR/RSLT * Urinalysis Microscopic Exam (12/13/2017 11:55 PM EDT) RBC, Urine 3 0 - 4 /HPF [facility] WBC, Urine 2 0 - 5 /HPF [facility] Urine specimen (specimen) 12/13/2017 11:55 PM EDT 12/14/2017 12:07 AM EDT Narrative Resulting Agency Comment Spec In Lab Russell Lewis MD URINE ORDERABLES [facility] [place] [address] * (ABNORMAL) Urinalysis with reflex Culture (12/13/2017 11:55 PM EDT) Glucose, Urine Dipstick Negative Negative mg/dL [facility] Protein, Urine Dipstick Negative Negative mg/dL [facility] Bilirubin, Urine Dipstick Negative Negative mg/dL [facility] Comment: Clinical correlation required for positive Urine Bilirubin results as false positive may occur with some drugs and drug related products. If a false positive is suspected a serum total bilirubin should be considered if clinically indicated. Urobilinogen, Urine Dipstick Normal Normal mg/dL [facility] pH, Urn (dipstick) 6.0 5.0 - 8.0 [facility] Blood, Urine Dipstick Small(A) Negative mg/dL [facility] Ketone, Urine Dipstick Negative Negative mg/dL [facility] Nitrite, Urine Dipstick Negative Negative [facility] Leukocytes, Urine Dipstick Negative Negative [facility] Appearance, Urine Dipstick Clear Clear [facility] Specific [place] Urine Automated >1.035(H) 1.002 - 1.030 [facility] Color, Urine Dipstick Straw Yellow [facility] Reflex to Culture No [facility] Urine specimen (specimen) 12/13/2017 11:55 PM EDT 12/14/2017 12:07 AM EDT Narrative Resulting Agency Comment Spec In Lab Russell Lewis MD URINE ORDERABLES [facility] [place] [address] * Rapid Drug Screen w/ Confirmation, Urine (12/13/2017 11:54 PM EDT) Barbiturates Screen, Urine None Detected None Detected [facility] Comment: The barbiturate screen detects barbiturates at concentrations >200 ng/mL. Note: Not all barbiturates cross-react equally with antibody used in this screen. A ? Presumptive Positive? result indicates that the screening result was positive but has not yet been confirmed by a highly-specific method. As with any screen, occasional false positive results from cross-reacting substances may occur. Not for Medico-Legal Purposes. Benzodiazepines Screen, Urine None Detected None Detected [facility] Comment: The benzodiazepines screen detects [...] substances may occur. Not for Medico-Legal Purposes. Cocaine Screen, Urine None Detected None Detected [facility] Comment: The cocaine metabolites screen detects benzoylecgonine (Cocaine Metabolite) at concentrations >150 ng/mL. A ? Presumptive Positive? result indicates that the screening result was positive but has not yet been confirmed by a highly-specific method. As with any screen, occasional false positive results from cross-reacting substances may occur. Not for Medico-Legal Purposes. Methadone Metabolites Screen, Urine None Detected None Detected [facility] Comment: The methadone metabolite screen detects EDDP (major methadone metabolite) at concentrations >100 ng/mL. A ? Presumptive Positive? result indicates that the screening result was positive but has not yet been confirmed by a highly-specific method. As with any screen, occasional false positive results from cross-reacting substances may occur. Not for Medico-Legal Purposes. Opiate Screen, Urine None Detected None Detected [facility] Comment: The opiates screen detects [...] substances may occur. Not for Medico-Legal Purposes. Cannabinoid Screen, Urine None Detected None Detected [facility] Comment: The marijuana metabolites screen detects the THC metabolite (22-qdm-9-carboxy-delta 9-THC) at concentrations >20 ng/mL. A ? Presumptive Positive? result indicates that the screening result was positive but has not yet been confirmed by a highly-specific method. As with any screen, occasional false positive results from cross-reacting substances may occur. Not for Medico-Legal Purposes. Oxycodone Screen, Urine None Detected None Detected [facility] Comment: The oxycodone screen detects oxycodone and oxymorphone at concentrations >100 ng/mL. A ? Presumptive Positive? result indicates that the screening result was positive but has not yet been confirmed by a highly-specific method. As with any screen, occasional false positive results from cross-reacting substances may occur. Not for Medico-Legal Purposes. Buprenorphine Screen, Urine None Detected None Detected [facility] Comment: The buprenorphine screen detects buprenorphine at concentrations >5 ng/mL. A ? Presumptive Positive? result indicates that the screening result was positive but has not yet been confirmed by a highly-specific method. As with any screen, occasional false positive results from cross-reacting substances may occur. Not for Medico-Legal Purposes. Fentanyl Screen, Urine None Detected None Detected [facility] Comment: The fentanyl screen detects fentanyl at concentrations >2 ng/mL. A ? Presumptive Positive? result indicates that the screening result was positive but has not yet been confirmed by a highly-specific method. As with any screen, occasional false positive results from cross-reacting substances may occur. Not for Medico-Legal Purposes. Tricyclics Screen, Urine None Detected None Detected [facility] Comment: The tricyclics screen detects [...] substances may occur. Not for Medico-Legal Purposes. Ethanol Screen, Urine None Detected None Detected [facility] Comment:This urine ethanol a ssay detects ethanol at concentrations >/= 100 mg/L. Amphetamines Screen, Urine None Detected None Detected [facility] Comment: The amphetamine screen detects d-amphetamine and d-methamphetamine at concentrations >300 ng/mL. A ? Presumptive Positive? result indicates that the screening result was positive but has not yet been confirmed by a highly-specific method. As with any screen, occasional false positive results from cross-reacting substances may occur. Not for Medico-Legal Purposes. Adulterants Screen, Urine None Detected None Detected [facility] Comment: No adulteration or dilution of this urine sample was detected. All urine samples submitted for urine drugs of abuse analysis are tested for creatinine concentration, pH, and for the presence of oxidants, nitrites, and chromate. Urine specimen (specimen) 12/13/2017 11:54 PM EDT 12/14/2017 12:07 AM EDT Narrative Resulting Agency Comment Spec In Lab Russell Lewis MD CHEMISTRY ORDERABLE S [facility] [place] [address] * Rapid Drug Screen, Urine (PRETTY Request) (12/13/2017 11:54 PM EDT) PRETTY Conf Requested Yes [facility] PRETTY Requested See Comment [facility] Comment:Refer to Rapid Drug Screen w/ Confirmation, Urine for results. Urine specimen (specimen) 12/13/2017 11:54 PM EDT 12/14/2017 12:07 AM EDT Narrative Resulting Agency Comment Spec In Lab Russell Lewis MD URINE ORDERABLES [facility] [place] [address] * Request For 2nd Read CT Head [...] minimal dorsal angulation of the distalcomponents. Russell Lewis MD IMG OUTSIDE INTERPR ETATION ORDERABLES * Film Library- Storage Only CT Spine (12/13/2017 12:20 AM EDT) Narrative [facility] - 12/13/2017 10:12 PM EDT This exam is for storage only and is auto-finalizing. Russell RAYAG FILM LIBRARY OR DERABLES Performing Organization Address [facility] de Phone Number [place], [place] * Film Library- Storage Only CT Chest Abdomen Pelvis (12/13/2017 12:15 AM EDT) Narrative [facility] - 12/13/2017 10:11 PM EDT This exam is for storage only and is auto-finalizing. Russell SNEED FILM LIBRARY OR DERABLES Performing Organization Address [facility] de Phone Number [place], [place] * Film Library- Storage Only DX Knee (12/13/2017 12:10 AM EDT) Narrative [facility] - 12/13/2017 10:05 PM EDT This exam is for storage only and is auto-finalizing. Russell SNEED FILM LIBRARY OR DERABLES Performing Organization Address [facility] de Phone Number [place], [place] * Film Library- Storage Only DX Wrist (12/13/2017 12:05 AM EDT) Narrative [facility] - 12/13/2017 10:04 PM EDT This exam is for storage only and is auto-finalizing. Russell SNEED FILM LIBRARY OR DERABLES Performing Organization Address [facility] de Phone Number [place], [place] * Film Library- Storage Only CT Head And Spine (12/13/2017 12:00 AM EDT) Narrative [facility] - 12/13/2017 10:03 PM EDT This exam is for storage only and is auto-finalizing. Russell Lewis MD IMG FILM LIBRARY OR DERABLES [place] documented in this encounter Visit Diagnoses [...] per day), 2 doses, First dose on Wed12/19/17 at 0900, Last dose on Wed12/19/17 at [...] Intravenous, EVERY 2 HOURS PRN, Starting on 12/14/17 at 1652, Until Juliette 12/16/17 at 1435, [...] Oral, DAILY PRN, Starting on Wed12/18/17 at 2028, [...] DAILY, First dose (after last modification) on Wed12/18/17 at 2100, Until Discontinued, Routine Given 12/18/2017 [...] Young RN) 08 (Given - Provider: Christin Edwards, HAYLEY)2046 (Given - Provider: La Castrejon, RN) 1012 (Given - Provider: Pita Her, HAYLEY) senna-docusate (PERICOLACE) 8.6-50 mg per tablet 2 tablet 2 tablet, Oral, 2 TIMES DAILY, First dose on Wed12/14/17 at 0900, Until Discontinued, Routine 0844 (Given - Provider: Christin Edwards RN)2119 (Given - Provider: Baltazar Young RN) 08 (Given - Provider: Christin Edwards, HAYLEY)2044 (Given - Provider: La Castrejon, RN) 1012 (Given - Provider: Pita Her, RN) sodium chloride 0.9 % flush 5 mL 5 mL, Intravenous, 2 TIMES DAILY, First dose on Wed12/14/17 at 0900, Until Discontinued, Recovery (Recovery-Hospital Unit), Routine 0845 (Given - Provider: Christin Edwards RN)2119 (Given - Provider: Baltazar Young RN) 08 (Given - Provider: Christin Edwards RN)2047 (Given - Provider: La Castrejon, RN) 1013 (Given - Provider: Pita Her, RN) [...] on Wed12/14/17 at 415, Until Wed12/24/17 at 161, for discomfort with PIV insertion, Recovery (Recovery-Hospital Unit), Routine magnesium citrate oral solution 300 mL(Linked Group 1) 300 mL, Oral, DAILY PRN, Starting on Wed12/18/17 at 2027, Until Wed12/24/17 at 161, Constipation, Administer if no bowel movement within [...] RN)1332 (See Alternative - Provider: Christin Edwards RN)1951 (See Alternative - Provider: Cary Urrutia RN)234 (See Alternative - Provider: Cary Urrutia RN) 040 (See Alternative - Provider: Cary Urrutia RN)0820 (See Alternative - Provider: Christin Edwards RN)2045 (See Alternative - Provider: La Castrejon RN) 042 (See Alternative - Provider: La Castrejon RN)1236 [...] RN) 0423 (Given - Provider: La Castrejon RN)123 (Given - Provider: Pita Her, RN) oxyCODONE (ROXICODONE) immediate release tablet 5 mg(Linked Group 2) 5 mg, Oral, EVERY 3 HOURS PRN, Starting on Wed12/21/17 at 0620, Until Wed12/24/17 at 1617, Pain, mild pain (1-3), May give additional 5 mg in 30 minutes once if pain not relieved., Routine 0509 (See Alternative - Provider: Cary Urrutia, RN)0843 (See Alternative - Provider: Christin Edwards, RN)1332 [...] on 12/18/17 at 2027, Until Wed12/24/17 at 161, Constipation, Administer if no bowel movement within [...] Oral, EVERY 3 HOURS PRN, Starting on Tu12/21/17 at 0620, Until Wed12/24/17 at 1617, Pain, mild pain (1-3), May give additional 5 mg in 30 minutes once if pain not relieved., Routine Or oxyCODONE (ROXICODONE) immediate release tablet 10 mgJump to med 10 mg, Oral, EVERY 3 HOURS PRN, Starting on Tu12/21/17 at 0620, Until Wed12/24/17 at 1617, Pain, [...] Routine documented in this encounter Care Teams Entertainment & Media Correspondent Relationship Specialty Start Date End Date Keiko Reddy MD [address] [address] PCP - General Family Medicine 06/18/17 05/15/18 documented as of this encounter
--- OUTSIDE RECORDS SUMMARY | 2023-12-28 01:44 | XMS_ITS | Encounter Summary ---
Author Organization [facility] Address [facility] [place] [address] Care Team Providers Care Commercial Coordinator Name Role Phone Keiko Reddy MD Primary Care Provider [phone] Encounter Details Date Type Department Care Team (Latest Contact Info) Description 12/13/2017 10:52 PM EDT - 12/13/2017 11:50 PM EDT Hospital Encounter [place] [address] Discharge Disposition: Home Social History Tobacco Use [...] AM EDT Appointment [place]ematology [place] [address] 01/31/2024 10:20 AM EDT Office Visit [place] [address] Rebecca Small MD [facility] DR [place]ECOLOGIC [place] [address] 08/01/2024 11:30 AM EDT Office Visit Dermatology at [facility] [address] [place] [address] Phan Engle MD [facility] [address] JESS HERNANDEZ[place] [address] documented as of this encounter Procedures Procedure [...] on filedocumented in this encounter Care Teams Commercial Coordinator Relationship Specialty Start Date End Date Keiko Reddy MD [address] [address] PCP - General Family Medicine 06/18/17 05/15/18 documented as of this encounter
--- OUTSIDE RECORDS SUMMARY | 2023-12-28 01:44 | XMS_ITS | Encounter Summary ---
Author Organization [facility] Address [facility] [place] [address] Care Team Providers Care Zipper Setter Chainstitch Name Role Phone Keiko Reddy MD Primary Care Provider [phone] Reason for Visit * Auth/Cert Specialty Diagnoses / Procedures Referred By Marie t Referred To Contact Diagnoses Trauma right tibial plateau fracture Procedures @ORIF TIBIAL PLATEAU (PROXIMAL) UNICONDYLAR (WRVU 13.41) MODIFIER TIBIA AAN SYSTEM SYNTHES MODIFIER PROXIMAL LOCKING TIBIA PLATES SYNTHES MODIFIER LOCKING MEDIAL PROXIMAL TIBIA PLATES SYNTHES Referral ID Status Reason Start Date Expiration Date Visits Re quested Visits Authorized [id number] 1 1 Encounter Details Date Type Department Care Team (Late st Contact Info) Description 12/14/2017 9:36 AM EDT Anesthesia Event [place] [address] Wyatt Sherman MD [facility] [place] [address] Anesthesia Record Procedure Summary Procedure Name Responsible [...] cephalic vein (lateral side of arm), left; [id number] catheter system; 20 gauge; outside hospital; 12/24/17; [...] Sherman MD - 12/14/2017 3:25 PM EDT [facility] Department of Anesthesiology Post-procedure Note Patient: Daphne Pickard Procedure Summary Date Anesthesia Start Anesthesia Stop Room / Location 12/14/17 0936 [facility] MAIN OR Procedure Diagnosis Surgeon Responsible [...] All Anesthesia Providers: Anesthesiologist: Wyatt Sherman MD HIRED HELP: Nicolette Munson CRNA; Yoshi Tinoco CRNA Most Recent Vitals: 12/14/17 1500 BP: 105/75 Pulse: 85 Resp: 14 Temp: SpO2: 95% Pain Patient Location: PACU/[facility] Level of Consciousness: Awake and Alert Pain [...] DIAGNOSTIC performed by Kimani Rojas MD at [facility] ENDOSCOPY Social History Substance Use Topics ??? [...] clear to auscultation (-) wheezes Dental Assessment: [facility] Assessment: IV access: Peripheral line Anesthesia Plan: [...] consented to blood products. Plan discussed with HIRED HELP. PAT Staff Note documented in this encounter Plan of Treatment Upcoming Encounters Date Type Department Care Team (Late st Contact Info) Description 01/31/2024 9:15 AM EDT Appointment Hematology [place] [address] 01/31/2024 10:20 AM EDT Office Visit [place] [address] Rebecca Small MD [facility] [place] [address] 08/01/2024 11:30 AM EDT Office Visit Dermatology at [facility] [address] [place] [address] Phan Engle MD [facility] DR JESS [place] [address] documented as of this encounter Visit Diagnoses [...] mg documented in this encounter Care Teams Zipper Setter Chainstitch Relationship Specialty Start Date End Date Keiko Reddy MD [address] [address] PCP - General Family Medicine 06/18/17 05/15/18 documented as of this encounter
--- OUTSIDE RECORDS SUMMARY | 2023-12-28 01:44 | XMS_ITS | Encounter Summary ---
Author Organization [facility] [place] [address] Care Team Providers Care Eyeglass Frames Inspector Name Role Phone Keiko Reddy MD Primary Care Provider Encounter Details Date Type Department Care Team (Late st Contact Info) Description 12/08/2017 Ancillary Procedure [place] [phone] Disha Hayden [address] [place] [address] Social History Tobacco Use Types [...] AM EDT Appointment Hematology [place] [phone] 01/31/2024 10:20 AM EDT Office [place] [phone] Rebecca Small MD [facility] GYNECOLOGIC ONCOLOGY [place], [place] [phone] 08/01/2024 11:30 AM EDT Office Visit Dermatology at [facility] [address] [place] [address] Phan Engle MD [facility] JRKINZA [place] [address] documented as of this encounter Procedures Procedure Name Priority Date/Time Associated Diagnosis Comments FILM LIBRARY STORAGE ONLY MAMMO Routine 12/08/2017 12:00 AM EDT documented in this encounter Results * Film Library- Storage Only Mammo (12/08/2017 12:00 AM EDT) Narrative [facility] - 12/17/2023 10:01 AM EDT This exam is auto-finalizing. It's purpose is for storage only. Disha SNEED FILM LIBRARY OR DERABLES [place], [place] documented in this encounter Visit Diagnoses Not on filedocumented in this encounter Care Teams Eyeglass Frames Inspector Relationship Specialty Start Date End Date Keiko Reddy MD [address] [address] PCP - General Family Medicine 06/18/17 05/15/18 documented as of this encounter
--- OUTSIDE RECORDS SUMMARY | 2023-12-28 01:44 | XMS_ITS | Encounter Summary ---
Author Organization [facility] Address [facility] [place] [address] Care Team Providers Care Webmethods Consultant Name Role Phone Keiko Reddy MD Primary Care Provider [phone] Reason for Visit * Reason Comments Hospital [...] Expiration Date Visits Re quested Visits Authorized [id number] 1 1 Encounter Details Date Type Department Care Team (Late st Contact Info) Description 12/14/2017 8:45 AM EDT - 12/14/2017 11:43 AM EDT [place] [address] Reinaldo Romero MD [facility] ORTHOPA[place] [address] @ORIF TIBIAL PLATEAU (PROXIMAL) UNICONDYLAR (WRVU 13.41) [...] Daphne Pickard Patient Age: 52 y.o. Language: French Race: White Ethnicity: Not nor Admit date: [...] 11:00 AM Heather Colon PA [facility] [address] [place] [address] Inpatient Provider Contact Information: Reinaldo Romero MD Orthopedics: [phone] After hours and weekends, call [facility] Computer Numerical Control Operator, , and have the Orthopedic resident paged. [...] did well post- operatively. On POD#1 the SALES AND SERVICE ADVISOR was discontinued and the patient was started [...] signs and determined safe for discharge to correction facility. Vital Signs at Discharge: Weight: Wt [...] pain controlled on oral medications. Discharge to: Senior Living [facility] Address: [address] [place] [address] [place] [facility] [place] [address] Updated Allergies/ADRs: No Known Allergies Immunizations Given [...] Activity: Non weight bearing bilateral lower extremities. Bishnu Brace locked in extension right lower extremity. May use right upper casted arm to assist with transfers. Will need slide board orlift to transfer from bed to chair/wheelchair with staff assistance. When reclining in bed, may open the [place] Brace 1-2 times a day to inspect the skin. Re-secure the Bishnu after. 3. Diet: Regular but increase fluids and fiber while on narcotic pain meds 4. Zuleyka/Sutures: Absorbable sutures right lower leg and upper arm. Removal not needed. Zuleyka left hip to be removed in 14 [...] with waterproof dressing until zuleyka are removed. [place] plastic bag taped at the top over the right lower extremity [place] brace should be done to keep the [place] and wound dry. DO NOT submerge the [...] both of your legs. 2. Keep the [place] Brace on your right leg locked in extension. When reclining in bed, may open the [place] Brace 1-2 times a day to inspect the skin. Re- secure the [place] after. 3. Remember to use a slide [...] bowel movement. You can also take an thzr-pew-aycnnrr medication, Miralax if needed to combat constipation. [...] with waterproof dressing until zuleyka are removed. [place] plastic bag taped at the top over the right lower extremity [place] brace should be done to keep the [place] and wound dry. DO NOT submerge the [...] skin and wound problems. Call your doctor ([phone]) if you develop: 1. Fever greater than [...] 1. You will have follow-up appointments at [facility] as indicated in Future Appointment and Orders. [...] AM Heather Colon PA [facility] If you have questions or concerns: [...] AM [facility] [phone] Please go to [facility]ider Area 3T ([facility]). 01/04/2018 7:45 AM [facility] [phone] Please go to [facility] Area 3T ([facility]). 01/04/2018 8:00 AM [facility] [phone] Please go to [facility] Area 3T ([facility]). 01/04/2018 9:45 AM [facility] [phone] Please go to [facility] R[facility] Area 3T ([facility] Location). 01/04/2018 10:00 AM [facility] [phone] Please go to [facility] Area 3T ([facility] Location). 01/04/2018 10:15 AM [facility] [phone] Please go to Car Rider Area 3T ([facility] Location). 01/04/2018 11:00 AM Heather Colon PA [facility] [phone] Future Orders Complete By Expires Full code [...] discussion: Primary Care Provider: Keiko Reddy MD [phone] Discharge References/Attachments INDWELLING URINARY CATHETER CARE: GENERAL INFO (ZIMBABWEAN) documented in this encounter Discharge Instructions * [...] to inspect the skin. Re- secure the [place] after. 3. Remember to use a slide [...] bowel movement. You can also take an plrf-rpz-ahpgzgr medication, Miralax if needed to combat constipation. [...] with waterproof dressing until zuleyka are removed. [place] plastic bag taped at the top over the right lower extremity [place] brace should be done to keep the [...] skin and wound problems. Call your doctor ([phone]) if you develop: 1. Fever greater than [...] 1. You will have follow-up appointments at [facility] as indicated in Future Appointment and Orders. [...] 11:00 AM Heather Colon PA [facility] If you have questions or concerns: Wednesday through Wednesday, 8 AM - 5 PM, please call Wenceslao Burnett MD's office at . If it is after 5 PM or on the weekend, please call and ask to speak with the Orthopedic resident on-call. * Attachments The following attachments cannot be sent through Care Everywhere. * INDWELLING URINARY CATHETER CARE: GENERAL INFO (ZIMBABWEAN) documented in this encounter Medications at Time [...] 1965 Admit date: 12/13/2017 Attending Physician: Reinaldo Rmoero MD IV removed, site benign. Pts assessment remains unchanged from previous assessment. Discussed pain management with patient, pain tolerable. Pt medicated prior to discharge. Pt has all belongings. Pt received discharge summary. This was reviewed. All questions answered. Discharge packet and prescriptions given to ambulance service. Pt discharged to rehab facility via ambulance. Report called and given to HAYLEY Barkley at [facility]. * Kaley Torres RN - 12/24/2017 11:57 AM EDT Office of Care Management/Linoleum Layer Apprentice Patient Name: Daphne Pickard : 1965 Patient has been offered a snf bed at [facility] for today. [facility] arranged for a 1:30 transport. Ambulance will need: Medicare ambulance form completed and signed (MD or Electronic Organ Technician RN/AUDIO INSTALLER) Copy of patient demographics [place] or [place] Out of Hospital DNR/DNI order, if active No MD to MD report necessary Please call Nursing Report to , ask for hebrew cantor. Info to accompany patient: Narcotic Prescriptions Copies of Medication Administration Records and IV sheets for past 10 days. Plan: Linoleum Layer Apprentice will be available to the patient and Electronic Organ Technician-RN and/or Social Workerfor further assistance. Patient will be discharged to: [facility] [address] [address] KALEY TORRES RN, Linoleum Layer Apprentice * Sol Boudreaux MD - 12/24/2017 4:44 [...] Brisk capillary refill distally, fingers warm/well-perfused. RLE: [place] brace in place, locked in extension. Mepilex [...] board transfers and left posterior hip precautions. Bsihnu beace locked in extension to RLE. Patient [...] - Afebrile, VSS - Rehab referrals placed, [facility] going for auth Active Hospital Problems [...] Brisk capillary refill distally, fingers warm/well-perfused. RLE: [place] brace in place, locked in extension. Mepilex [...] board transfers and left posterior hip precautions. [place] beace locked in extension to RLE. Patient may use the RUE in the cast for help with transfers. DVT prophylaxis: Lovenox 30mg BID . Closure: [place] out in 2 weeks (~01/03) Dressing: Mepilex [...] unit kitchen (yogurt, non- dairy milk, etc). Bone Char Kiln Tender and pt discussed protein. Pt stated she is consuming protein in her daily nutrition. Pt requested to cancel Boost Plus shakes and fruits at this time she had been receiving for snacks. Bone Char Kiln Tender canceled snacks per pt request. Nursing notes [...] Patient medically ready for rehab per provider. [facility] going for insurance authorization. Patient aware and agreable to plan. Will have to transport by ambulance because of injuries. PASSR signed. Packet completed. Sangeetha Page RN Case Manager, [facility] [phone] Pager #[phone] * Nir Bhatti - 12/22/2017 5:55 AM [...] Brisk capillary refill distally, fingers warm/well-perfused. RLE: [place] brace in place, locked in extension. Mepilex [...] attempt again tomorrow. Roberto Almodovar PT, DPT 3575 Inpatient Rehabilitation * Sabrina Aranda RN - 12/21/2017 3:20 PM EDT Based on discussions with the multi-disciplinary healthcare team, the patient would benefit from skilled level of care at discharge. ?? I have met with the patient to discuss discharge planning needs. I reviewed the [facility], Office of Care Management letter from the Sales Ledger Administrator pertaining to rehab referrals. I also reviewed a letter describing our affiliations within the [facility] and educated her abouther right to choose where referrals are placed. ?? I reviewed the different levels of rehab including SNF, swing, acute and LTAC with the patient. ?? The patient has been provided a list of facilities within her preferred geographic area. ?? I requested that the patient provide at least three choices for referral. ?? The [facility] [address] [address] ?? [phone] ?? I mentioned the option of hospitals which offer Swing Beds. Patient declined to provide additional referral choices of any level. ?? Expected date of discharge: Not yet determined. Pt continues to have pain control issues. Note routed to Linoleum Layer Apprentice who will communicate referrals to facilities and provide any required information. Sabrina Aranda RN, BSN, Electronic Organ Technician Pager [phone] * Filippo Dickson MD - 12/21/2017 10:10 AM EDT Morning lab work now returned. Hgb 8.7 down from 10.9 pre-operatively for ORIF left acetabulum performed yesterday 12/20. Consistent with acute blood loss anemia following surgery. Will continue to follow. Remainder of CBC, BMP WNL. See progress note by Dr. Dobson for remainder of exam and assessment. Filippo Dickson MD Orthopaedic Surgery, PGY-1 Pager: [phone] * Kimani Dobson MD - 12/21/2017 5:58 [...] Brisk capillary refill distally, fingers warm/well-perfused. RLE: [place] brace in place, locked in extension. Mepilex [...] board transfers and left posterior hip precautions. [place] beace locked in extension to RLE. Patient may use the RUE in the cast for help with transfers. DVT prophylaxis: Lovenox 30mg BID . Closure: [place] out in 2 weeks (~01/03) Dressing: Mepilex [...] hip precautions to LLE. Activity: NWB RLE, [place] brace locked in extension to RLE, TDWB [...] 1240 Hand off to HAYLEY Simons 3 zortman. Patient to go to X-ray on route, [...] in RUE or BLE. Has beenNPO since [place] for OR today. Active Hospital Problems Diagnosis [...] Brisk capillary refill distally, fingers warm/well-perfused. RLE: [place] brace in place, locked in extension. Mepilex [...] for OR this AM Activity: NWB BLE. [place] beace locked in extension to RLE. Okay [...] Intake/Output Summary (Last 24 hours) at 12/19/17 0761 Last data filed at 12/19/17 0400 Gross [...] Brisk capillary refill distally, fingers warm/well-perfused. RLE: [place] brace in place, locked in extension. Mepilex [...] ORIF left acetabulum tomorrow. Activity: NWB BLE. [place] beace locked in extension to RLE. Okay [...] distally, fingers warm/well-perfused. RLE: Mepilex dressing c/d/i [place] brace in locked in extension in place. [...] after midnight - NBO placed -Last BM: CLIENT SERVER DEVELOPER ?? RENAL: - trend BMP daily till [...] [] Incidental Findings Form Completed Jason Shannon, FERTILIZING MACHINE OPERATOR 12/16/2017 Trauma pager [phone] Acute Care Surgery Attending Addendum: I have [...] minimumof two midnights or is on the [facility] inpatient only procedure list (status C) [...] 12/16/2017 No future appointments. * Jason Shannon, FERTILIZING MACHINE OPERATOR - 12/15/2017 1:58 PM EDT TRAUMA & [...] is a 52 y.o. female presents to [facility] s/p fall. Description of events leading up to injury includes she was riding a horse when he bucked her off. She landed on her right arm and legbut did not hit her head. No LOC. Immediately after the fall she had significant pain in right knee. Her fiance was able to call EMS. She was taken to [facility] where she was noted to have multiple orthopedic injuries including a right radial and right tibial plateau fracture. Her right arm was placed in a CARMEN splint. She was transferred to [facility] for further care and was hemodynamically normal [...] DIAGNOSTIC performed by Kimani Rojas MD at [facility] ENDOSCOPY HOME MEDICATIONS: No prescriptions prior to [...] lives with significant other Jignesh Louise in [place], [place]. In 2nd floor home. One step [...] as tolerated - NBO placed -Last BM: CLIENT SERVER DEVELOPER RENAL: - trend BMP daily till stable [...] Completed Jason Shannon APRN 12/15/2017 Trauma pager [phone] * Filippo Dickson MD - 12/15/2017 1:46 [...] Filippo Dickson MD Orthopaedic Surgery, PGY-1 Pager: [phone] * Katherin Beltrán DT - 12/15/2017 10:45 [...] per pt) and a vanilla Boost Plus. Bone Char Kiln Tender ordered said snack at time of visit. Pt stated she loves Oui yogurt. Bone Char Kiln Tender encouraged pt she can have family bring in favorite foods (yogurt) and place in unit refrigerator with name, room and date. Pt had room service menu at bedside. Writereducated pt on ordering procedure and timelines for hot foods. Bone Char Kiln Tender encouraged pt order 3 meals qd with a protein source. Informed pt of small portions are available should she request. Pt agreeable to dietary services open meal containers and cut up all foods daily. Bone Char Kiln Tender set up said request. Pt also agreeable to Boost Plus 2x/day at snack times with fresh fruit snacks added (green apple cut up and a banana). Bone Char Kiln Tender set up. Patient had no further questions [...] distally, fingers warm/well-perfused. RLE: Mepilex dressing c/d/i [place] brace in locked in extension in place. [...] Trauma and Acute Care Surgery Trauma pager [phone] * Bharath Caruso RN - 12/14/2017 4:20 [...] up as appropriate. Peter Bynum OT Pager: [phone] * Rocio Sherman RN - 12/14/2017 9:18 [...] Daphne Pickard Level of Activation: alert MR#: [id number] [ ]Scene Call or [ x]Hospital Transfer : [id number] CC/MECHANISM OF INJURY: 52 y.o. Female s/p fall HISTORY OF PRESENT ILLNESS: Daphne Pickard is a 52 y.o. female presents to [facility] s/p fall. Description of events leading up to injury includes she was riding a horse when he bucked her off. She landed on her right arm and legbut did not hit her head. No LOC. Immediately after the fall she had significant pain in right knee. Her fiance was able to call EMS. She was taken to [facility] where she was noted to have multiple orthopedic injuries including a right radial and right tibial plateau fracture. Her right arm was placed in a CARMEN splint. She was transferred to [facility] for further care and was hemodynamically normal [...] DIAGNOSTIC performed by Kimani Rojas MD at [facility] ENDOSCOPY ALLERGIES: Allergies Allergen Reactions ??? Gabapentin [...] Negative mcL Appearance UA Clear Clear Spec [place] UA >1.035 (H) 1.002 - 1.030 Color [...] DISPO: floor Padmaja Grady MD Trauma Surgery #[id number] 12/14/2017 ADDENDUM: I have independently seen and [...] arrives via EMS as trauma consult from [facility] History obtained by: hospital records, EMS, patient [...] mg, 0.2 mg, Intravenous, Q1 Min PRN, Elevr Huddleston MD ??? lactated Ringers infusion 1,000 [...] Pt educated on LB dressing technique w/ blue line trimmer supine. Pt is extremely motivated and will greatly benefit from ongoing therapeutic interventions to achieve pt's and therapy goals. Please refer to associated flowsheet data listed below for treatment session details. Staff Recommendations: ?? Mechanical lift ?? Encourage OOB activity and participation in all self care tasks Anticipated Discharge Disposition: inpatient rehabilitation facility, correction facility Pager: [phone] Peter Bynum OT 12/22/2017 Occupational Therapy Rehabilitation Department 12/22/17 5628 Rehab Evaluation Document Type therapy note (daily [...] Mobility Assessment/Treatment Assistive Device (Bed Mobility) leg pressed or blown glass worker;other (see comments) Tivnsj-ne-Wsy [place] (Bed Mobility) moderate assist (50% patient effort);2 person assist required Jsz-vx-Pkizrp [place] (Bed Mobility) moderate assist (50% patient effort);2 person assist required Impairments (Bed Mobility) pain;ROM (range of motion) decreased;balance impaired;strength decreased Comment (Bed Mobility) Pt performed be dmobility w/ increased time, pt long sitting EOB w/ chair support LE Transfer Assessment/Treatment Bed-Chair [place] (Transfers) moderate assist (50% patient effort);2 person assist required Impairments (Transfers) pain;ROM (range of motion) decreased;strength decreased Comment (Transfers) Pt performed backward scoot from bed>w/c,assist w/ kim pad and support forLE. Increased time and increased pain noted Bathing Assessment/Training Position (Bathing) sitting [place] Level (Bathing) moderate assist (50% patient effort) Comment (Bathing) Pt required washed trunk, pt required assist to sponge bath her back and LE Upper Body Dressing Assessment/Training Position (UB Dressing) sitting [place] Level (UB Dressing) set up required;supervision required [...] protect/position healing structures Wear Schedule (Orthosis) wear merchandise flow associate Adjustment Comment (Orthosis) no adjustment Plan of [...] (TBD, W/C) Anticipated Discharge Disposition inpatient rehabilitation facility;correction facility * Plan of Care - Roberto [...] lift to commode/chair Anticipated Discharge Disposition: (S) correction facility Roberto Almodovar PT Pager: [phone] Inpatient Physical Therapy 12/22/17 1440 Rehab Evaluation Document Type therapy note (daily [...] Mobility Assessment/Treatment Assistive Device (Bed Mobility) leg pressed or blown glass worker;draw sheet (HOB elevated ) Gyjvxu-xh-Dom [place] (Bed Mobility) moderate assist (50% patient effort);2 person assist required;verbal cues required Impairments (Bed Mobility) ROM (range of motion) decreased;strength decreased;flexibility decreased;pain Comment (Bed Mobility) supine>long sitting; increased time; extra assist needed; long sitting atEOB; feet supported on a chair with pillows Scoot/Bridge [place] (Bed Mobility) moderate assist (50% patient effort);2 person assist required;verbal cues required Safety Issues (Bed Mobility) decreased use of arms for pushing/pulling;decreased use of legs for bridging/pushing Transfer Assessment/Treatment Bed-Chair [place] (Transfers) moderate assist (50% patient effort);2 person assist required Qqr-Xucpx-Ouh Assistive Device (Transfers) (backwards/forwards) Maintain Weight Bearing [...] to sit/sit to supine Bed Mobility Goal, [place] Level minimum assist (75% patient effort) Bed Mobility Goal, Assistive Device leg pressed or blown glass worker Bed Mobility Goal, Date Goal Reviewed 12/22/17 Bed Mobility Goal, Outcome Achieved goal ongoing Transfer Training Goal Transfer Training Goal, Date Established 12/15/17 Transfer Training Goal, Time to Achieve 30 days Transfer Training Goal, Activity Type pfr-nj-vphze/wukyn-ss-tde Transfer Train Goal, [place] Level moderate assist (50% patient effort) Transfer [...] Needs at Discharge wheelchair Anticipated Discharge Disposition correction facility * Plan of Care - [place] [...] Joyce Parra - 12/20/2017 11:01 AM EDT [facility] Operative Note Patient Name: Daphne Pickard : [id number] MR#: [id number] Case Date: 12/20/2017 ?? Surgeon: Surgeon(s) and [...] which had been applied preoperatively in accordancewith [facility] policy. Anesthesia was induced while the patient [...] surgical timeout was performed in accordance with [facility] policy. Site of intended incision was drawn [...] Implant Name Type Inv. Item Serial No. Customer Loyalty Representative Lot No. LRB No. Used Action WIRE,K,THRDD GWRE,[id number] ([id number]) - [id number] IMPLANTS WIRE,K,THRDD GWRE,[id number] ([id number]) [facility] Left 1 Implanted and Explanted SCREW,CRTX,STAP,2.7X32MM ([id number]) - [id number] IMPLANTS SCREW,CRTX,STAP,2.7X32MM ([id number]) [facility] Left 1 Implanted SCREW,CRTX,STAP,2.7X28MM ([id number]) - [id number] IMPLANTS SCREW,CRTX,STAP,2.7X28MM ([id number]) [facility] Left 1 Implanted and Explanted SCREW,CRTX,STAP,2.7X26MM ([id number]) - [id number] IMPLANTS SCREW,CRTX,STAP,2.7X26MM ([id number]) [facility] Left 1 Implanted PLATE,RECON.8H,3.5X94MM ([id number]) - [id number] IMPLANTS PLATE,RECON.8H,3.5X94MM ([id number]) [facility] Left 1 Implanted SCREW,CRTX,STAP,3.5X34MM ([id number]) - [id number] IMPLANTS SCREW,CRTX,STAP,3.5X34MM ([id number]) [facility] Left 3 Implanted PIN,KWIRE,TROC 1 ED,NS,3P532DC ([id number]) - [id number] IMPLANTS PIN,KWIRE,TROC 1 ED,NS,[id number] ([id number]) [facility] Left 2 Implanted and Explanted SCREW,CRTX,STAP,3.5X75MM ([id number]) - [id number] IMPLANTS SCREW,CRTX,STAP,3.5X75MM ([id number]) [facility] Left 1 Implanted and Explanted SCREW,CRTX,STAP,3.5X38MM ([id number]) - [id number] IMPLANTS SCREW,CRTX,STAP,3.5X38MM ([id number]) [facility] Left 1 Implanted and Explanted SCREW,CRTX,STAP,3.5X36MM ([id number]) - [id number] IMPLANTS SCREW,CRTX,STAP,3.5X36MM ([id number]) [facility] Left 1 Implanted SCREW,CRTX,STAP,3.5X40MM ([id number]) - [id number] IMPLANTS SCREW,CRTX,STAP,3.5X40MM ([id number]) [facility] Left 1 Implanted SCREW,CRTX,STAP,2.7X28MM ([id number]) - [id number] IMPLANTS SCREW,CRTX,STAP,2.7X28MM ([id number]) [facility] Left 1 Implanted and Explanted SCREW,CRTX,STAP,3.5X28MM ([id number]) - [id number] IMPLANTS SCREW,CRTX,STAP,3.5X28MM ([id number]) [facility] Left 1 Implanted Infection Bundle used? N/A [...] Operative Note Patient Name: Daphne Pickard : [id number] MR#: [id number] Case Date: 12/20/2017 Surgeon: Surgeon(s) and Role: [...] of bed Precautions Comments: Non-weight bearing BLE. [place] brace on RLE, locked in extension at [...] tasks Anticipated Discharge Disposition: inpatient rehabilitation facility, correction facility Pager: [phone] Peter Bynum, OT 12/17/2017 Occupational Therapy Rehabilitation Department 12/17/17 6738 Rehab Evaluation Document Type therapy note (daily [...] of bed Precautions Comments Non-weight bearing BLE. [place] brace on RLE, locked in extension at [...] Mobility Assessment/Treatment Assistive Device (Bed Mobility) leg pressed or blown glass worker;draw sheet Imooqf-aj-Xbk [place] (Bed Mobility) minimum assist (75% patient effort);moderate assist (50% patient effort);verbal cues required Impairments (Bed Mobility) ROM (range of motion) decreased;strength decreased;pain Comment (Bed Mobility) Pt performed bed mobility w/ assist for RLE and us of drawsheet to get into position for backward scoot transfer. Transfer Assessment/Treatment Bed-Chair [place] (Transfers) minimum assist (75% patient effort);moderate assist (50% patienteffort);verbal cues required Fqk-Tzpep-Fcc Assistive Device (Transfers) (none) Impairments (Transfers) pain;ROM [...] Discharge (TBD) Anticipated Discharge Disposition inpatient rehabilitation facility;correction facility * Plan of Care - Roberto [...] of bed Precautions Comments: Non-weight bearing BLE. [place] brace on RLE, locked in extension at [...] chair for meals Anticipated Discharge Disposition: (S) correction facility Roberto Almodovar, PT Pager: [phone] Inpatient Physical Therapy 12/17/17 6516 Rehab Evaluation Document Type therapy note (daily [...] of bed Precautions Comments Non-weight bearing BLE. [place] brace on RLE, locked in extension at all times. Non-weight bearing RUE. can platform weight bear through RUE Treatment Number PT 2 Pain Scale/Rating Pain Assessment Scale Numbers (Numeric Rating Pain Scale) Pain Level 8 Mobility Assessment/Training Additional Documentation Transfer Assessment/Treatment (Group) Bed Mobility Assessment/Treatment Assistive Device (Bed Mobility) leg pressed or blown glass worker;draw sheet Owgpue-bo-Ptd [place] (Bed Mobility) minimum assist (75% patient effort);moderate assist (50% patient effort) Comment (Bed Mobility) moving around in bed to sit up on edge with back on the edge Scoot/Bridge [place] (Bed Mobility) minimum assist (75% patient effort);moderate assist (50% patient effort) Transfer Assessment/Treatment Bed-Chair [place] (Transfers) minimum assist (75% patient effort);moderate assist (50% patienteffort) Pkl-Cupub-Qvq Assistive Device (Transfers) (backwards/forwards) Comment (Transfers) backwards/forwards transfer on R side of bed back into recliner chair; use of leg pressed or blown glass worker; vc's for sequencing and technique Orthotics/Prosthetics Additional [...] to sit/sit to supine Bed Mobility Goal, Cran[place] Level minimum assist (75% patient effort) Bed Mobility Goal, Assistive Device leg pressed or blown glass worker Bed Mobility Goal, Date Goal Reviewed 12/17/17 Bed Mobility Goal, Outcome Achieved goal ongoing Transfer Training Goal Transfer Training Goal, Date Established 12/15/17 Transfer Training Goal, Time to Achieve 30 days Transfer Training Goal, Activity Type gtl-qd-dzrbn/cigtn-jx-oht Transfer Train Goal, Cran[place] Level moderate assist (50% patient effort) Transfer [...] Needs at Discharge wheelchair Anticipated Discharge Disposition correction facility * Plan of Care - Arabella [...] controlled with PRN oxycodone. Ramirez draining CYU. [place] brace to RLE, hard cast to RUE. [...] EVALUATION: * Plan of Care - Karin Hawkisn RN - 12/16/2017 4:45 PM EDT Problem: [...] chair when able Anticipated Discharge Disposition: (S) correction facility Roberto Almodovar, PT Pager: [phone] Inpatient Physical Therapy 2017 PT Evaluation Code [...] with her heidi in their home in [place], [place]. 18 steps to enter the home. Has 3 horses at home, 4 labs and 2 cats Functional Level Prior Prior Functional Level Comment Reports she has a sister that is a PT. may be able to obtain DME from family members. 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 Vital Signs SpO2 97 [...] Mobility Assessment/Treatment Assistive Device (Bed Mobility) leg pressed or blown glass worker;draw sheet;bed rails (elevated HOB) Gnbvuz-nr-Ysl [place] (Bed Mobility) minimum assist (75% patient effort);2 person assist required;moderate assist (50% patient effort) Nma-kh-Axsfpu [place] (Bed Mobility) maximum assist (25% patient effort);2 person assist required;verbal cues required Impairments (Bed Mobility) flexibility decreased;pain;ROM (range of motion) decreased;strength decreased Comment (Bed Mobility) increased time 2/2 pain; able to move LLE not not RLE; vc's for technique; use of draw sheet Scoot/Bridge [place] (Bed Mobility) minimum assist (75% patient effort) [...] protect/position healing structures Wear Schedule (Orthosis) wear merchandise flow associate Plan of Care Review Plan Of Care Reviewed With patient Physical Therapy Goal Types Physical Therapy Goal Types Bed Mobility Goal (Group);Transfer Training Goal (Group);Physical Therapy Goal (Group) Bed Mobility Goal Bed Mobility Goal, Date Established 12/15/17 Bed Mobility Goal, Time to Achieve 30 days Bed Mobility Goal, Activity Type roll left/roll right;supine to sit/sit to supine Bed Mobility Goal, [place] Level minimum assist (75% patient effort) Bed Mobility Goal, Assistive Device leg pressed or blown glass worker Transfer Training Goal Transfer Training Goal, Date Established 12/15/17 Transfer Training Goal, Time to Achieve 30 days Transfer Training Goal, Activity Type qyw-ox-rgaud/bfekr-tn-mnq Transfer Train Goal, Cran[place] Level moderate assist (50% patient effort) Transfer [...] Needs at Discharge wheelchair Anticipated Discharge Disposition correction facility General Interventions Additional Documentation Planned Therapy [...] all times) Precautions Comments: Non-weight bearing BLE. [place] brace on RLE, locked in extension at [...] tasks Anticipated Discharge Disposition: inpatient rehabilitation facility, correction facility Pager: [phone] Peter Bynum, OT 12/15/2017 Occupational Therapy Rehabilitation [...] all times) Precautions Comments Non-weight bearing BLE. [place] brace on RLE, locked in extension at [...] (Bed Mobility) bed rails;draw sheet (HOB raised) Chrcwx-vj-Odr [place] (Bed Mobility) minimum assist (75% patient effort);2 person assist required;verbal cues required;moderate assist (50% patient effort) Dtv-kb-Sbjshc [place] (Bed Mobility) maximum assist (25% patient effort);2 [...] Pt issued and educated on use of blue line trimmer. Additional Documentation Bathing Assessment/Training (Group);Upper Body Dressing Assessment/Training (Group);Grooming Assessment/Training (Group);IADL Assessment/Training: Comment (Row) Bathing Assessment/Training Assistive Devices (Bathing) (bath wipes) Position (Bathing) sitting [place] Level (Bathing) moderate assist (50% patient effort) Impairments (Bathing) pain;ROM (range of motion) decreased;strength decreased;balance impaired Comment (Bathing) Pt performed sponge bath to her anterior thorax/abdomen. Pt assisted w/ her back,LE, and tina-care. Pt assisted donning shampoo cap and w/ application. Upper Body Dressing Assessment/Training Position (UB Dressing) sitting Cranbury Level (UB Dressing) minimum assist (75% patient [...] (TBD) Anticipated Discharge Disposition inpatient rehabilitation facility, correction facility General Therapy Interventions Additional Documentation Planned [...] two [facility] for she and her heidi to [...] to advise, support. One sister works at [employer]. Her mother lives in the local area also. Behavioral Health History: no Substance Use/Abuse: none Other Pertinent/Service Specific Information: Patient will have FMLA and STD paperwork to have completed. Heidi bringing that when he comes to visit today. Health/Prescription Coverage: Primary Insurance: CIGNA Secondary Insurance: N/A Prescription Coverage: CIGNA Preferred Pharmacy: none Other: none Primary Care Provider: Keiko Reddy MD [phone] Patient/Caregiver Goals of Treatment: Home when medically able. Potential Needs for Transition of Care: Rehab/SNF: patient anticipates she will need rehab/snf. Her preference would be [facility]. Home Health: yes at [...] transition of care planning. SHERI UPTON Pager: [phone] * Plan of Care - Jamar Wolf [...] OUTCOME EVALUATION: Goal: Individualization & Mutuality 12/14/17 1331 Mutuality/Individual Preferences What Anxieties, Fears or Concerns [...] Romero MD - 12/14/2017 4:06 PM EDT [facility] Operative Note Patient Name: Daphne Pickard : [id number] MR#: [id number] Case Date: 12/14/2017 Surgeon: Surgeon(s) and Role: [...] a 52-year-old female who presented to [facility] with signs symptoms and radiographic findings consistent [...] in the preoperative holding area where green hualapai was placed on the correct operative right [...] incision. A timeout was held according to [facility] protocol confirming thecorrect side site's and procedures. [...] patient's leg was then placed into a [place] brace locked in extension. Attention was then [...] Implant Name Type Inv. Item Serial No. Customer Loyalty Representative Lot No. LRB No. Used Action PLATE,VA-LCP,TIB,4H,RT,87MM ([id number]) - [id number] IMPLANTS PLATE,VA- LCP,TIB,4H,RT,87MM ([id number]) [employer] - DEPUY SYNT Right 1 Implanted SCREW,CRTX,STAP,3.5X40MM ([id number]) - [id number] IMPLANTS SCREW,CRTX,STAP,3.5X40MM ([id number]) [employer]PU[employer] - DEPUY SYNT Right 1 Implanted SCREW,OMER,ANG,LCK,3.5X65MM ([id number]) - [id number] IMPLANTS SCREW,OMER,ANG,LCK,3.5X65MM ([id number]) [employer] - DEPUY SYNT Right 3 Implanted SCREW,OMER,ANG,LCK,3.5X60MM ([id number]) - [id number] IMPLANTS SCREW,OMER,ANG,LCK,3.5X60MM ([id number]) [employer] - DEPUY SYNT Right 1 Implanted SCREW,OMER,ANG,LCK,3.5X46MM ([id number]) - [id number] IMPLANTS SCREW,OMER,ANG,LCK,3.5X46MM ([id number]) DEPUY [employer] - DEPUY SYNT Right 1 Implanted SCREW,OMER,ANG,LCK,3.5X50MM ([id number]) - [id number] IMPLANTS SCREW,OMER,ANG,LCK,3.5X50MM ([id number]) [employer] - DEPUY SYNT Right 1 Implanted SCREW,OMER,ANG,LCK,3.5X56MM ([id number]) - [id number] IMPLANTS SCREW,OMER,ANG,LCK,3.5X56MM ([id number]) [employer] - DEPUY SYNT Right 1 Implanted SCREW,OMER,ANG,LCK,3.5X32MM ([id number]) - [id number] IMPLANTS SCREW,OMER,ANG,LCK,3.5X32MM ([id number]) [employer] - DEPUY SYNT Right 1 Implanted SCREW,CNCL,STAP,P-T,3.5X70MM ([id number]) - [id number] IMPLANTS SCREW,CNCL,STAP,P- T,3.5X70MM ([id number])[employer] - DEPUY SYNT Right 1 Implanted BONE,CRUSHED,CANCELLOUS,30CC ([id number]) (AUTOREQ) - [id number] IMPLANTS BONE,CRUSHED,CANCELLOUS,30CC([id number]) (AUTOREQ) [facility] Right 1 Implanted PLATE,VLRDSTL,LCP,6H,RT,2.4MM ([id number]) - [id number] IMPLANTS PLATE,VLRDSTL,LCP,6H,RT,2.4MM ([id number]) [employer] - DEPUY SYNT Right 1 Implanted PLATE,RDCTN,WIRTHRD TIP,1.25MM ([id number]) - [id number] IMPLANTS PLATE,RDCTN,WIRTHRD TIP,1.25MM ([id number]) [employer] - DEPUY SYNT Right 3 Implanted and Explanted SCREW,VA,LCK,STAR,2.4X20MM ([id number]) - [id number] IMPLANTS SCREW,VA,LCK,STAR,2.4X20MM ([id number]) [employer]PUY [employer] - DEPUY SYNT Right 3 Implanted SCREW,VA,LCK,STAR,2.4X14MM ([id number]) - [id number] IMPLANTS SCREW,VA,LCK,STAR,2.4X14MM ([id number]) [employer] - DEPUY SYNT Right 1 Implanted SCREW,VA,LCK,STAR,2.4X18MM ([id number]) - [id number] IMPLANTS SCREW,VA,LCK,STAR,2.4X18MM ([id number]) [employer] - DEPUY SYNT Right 1 Implanted SCREW,CRTX,STAP,STAR,2.7X12MM ([id number]) - [id number] IMPLANTS SCREW,CRTX,STAP,STAR,2.7X12MM ([id number]) [employer] - DEPUY SYNT Right 3 Implanted Infection Bundle used? No Attestation: Case Date: 12/14/2017 I was present and I participated during the entire procedure (does not need to include opening and closing). Reinaldo Romero MD 12/14/2017 * Brief Op Note - Reinaldo Romero MD - 12/14/2017 1:38 PM EDT Brief Operative Note Patient Name: Daphne Pickard : [id number] MR#: [id number] Case Date: 12/14/2017 Surgeon: Surgeon(s) and Role: [...] and ADLs]: Hands-on Surveillance [continuous indirect monitoring]: [facility], hourly rounding Patient-specific fall prevention interventions for [...] following the injury She was taken to [facility] where imaging revealed right distal radius fracture, right tibial plateau fracture and left posterior wall acetabular fracture. She was then transferred to [facility] for further management. Patient denies numbness, tingling, weakness, head strike, LOC, or other injuries. Past Medical History: Patient Active Problem List Diagnosis Code ??? Trauma T14.90XA Past Surgical History: Past Surgical History: Procedure Laterality Date ??? PRO COLONOSCOPY, DIAGNOSTIC N/A 06/25/2017 COLONOSCOPY, DIAGNOSTIC performed by Kimani Rojas MD at [facility] ENDOSCOPY Allergies Allergen Reactions ??? Gabapentin (Bulk) [...] distributions Motor intact shoulder abduction, elbow flexion/extension, milk pasteurizer, EPL, AIN, IO Brisk capillary refill distally [...] (5/5) shoulder abduction, elbow flexion/extension, wrist flexion/extension, milk pasteurizer, EPL,AIN, IO Brisk capillary refill distally 2+ [...] the patient elected to proceed. Per the [facility] Bed Side Check List: the patient was [...] and treatment. Please call the orthopaedic resident environmental manager with any questions or concerns. ?? Nir Bhatti MD Orthopaedic Surgery Pager: [phone] documented in this encounter Plan of Treatment Upcoming Encounters Date Type Department Care Team (Late st Contact Info) Description 01/31/2024 9:15 AM EDT Appointment Hematology [place] [address] 01/31/2024 10:20 AM EDT Office Visit [place] [address] Rebecca Small MD [facility] GYNECOLOG[place] [address] 08/01/2024 11:30 AM EDT Office Visit Dermatology at [address] [place] [address] Phan Engle MD [facility] DR JESS HERNANDEZ[place] [address] Scheduled Orders Name Type Priority Associated Diagnoses [...] 12/14/2017 12:30 AM EDT TYPE AND SCREEN ([facility]/CGP/ZAHIDA) STAT 12/14/2017 12:30 AM EDT L-LACTATE2 WHOLE BLOOD Routine 12/14/2017 12:15 AM EDT IMPLANTABLE DEVICES SCAN 12/14/2017 12:00 AM EDT PRODUCE PRODUCTION TEAM MEMBER SCAN 12/14/2017 12:00 AM EDT HEMOGRAM STAT [...] EDT Unchanged alignment of the uncomplicated cortical tpgfa-nwa-pxorv fixation of the tibial plateau fracture without [...] the depressed lateral tibial plateau fracture with alevism of near-anatomic alignment. No radiographic evidence of [...] the depressed lateral tibial plateau fracture with alevism ofnear-anatomic alignment. No radiographic evidence of hardware complication. The fracturelines remain visible on the AP view. Interval resolution of the postoperative soft tissue air. IMPRESSION Unchanged alignment of the uncomplicated cortical ncget-otw-uvmfz fixationof the tibial plateau fracture without radiographic [...] LABORATORY Neutrophil Absolute 3.99 1.70 - 6.10 x10(3)/mcL [facility] Lymph % 27.7 % [facility] Lymphocytes Abs 1.9 0.9 - 3.2 x10(3)/[facility] Monocyte % 13.5 % [facility] Monocyte Abs 0.9 0.3 - 0.9 x10(3)/[facility] Eos % 0.9 % [facility] Eosinophils Abs 0.1 0.0 - 0.4 x10(3)/[facility] Basophil % 0.4 % [facility] Baso Absolute 0.0 0.0 - 0.1 x10(3)/[facility] Immature Gran % 0.40 % [facility] Comment: Immature granulocytes(IG's)percentage and absolute count will include metamyelocytes, myelocytes, and promyelocytes. Blood smears from CBCs yielding IG's will be scanned manually for concordance. If this scan disagrees with the automated IG or if promyelocytes are noted, a manual differential will be performed. Immature Gran Absolute 0.03 0.00 - 0.04 x10(3)/[facility] Blood specimen (specimen) 12/22/2017 9:56 AM EDT 12/22/2017 10:10 AM EDT Narrative Resulting Agency Comment Spec In Lab Vani Hook FERTILIZING MACHINE OPERATOR HEMATOLOGY ORDERABL ES [facility] [place] [address] * (ABNORMAL) Hemogram (12/22/2017 9:56 AM EDT) White Blood Cell 7.0 4.0 - 9.5 x10(3)/ L [facility] Red Blood Cell 2.92(L) 4.00 - 5.21 x10(6)/ L [facility] Hemoglobin 9.1(L) 11.7 - 15.5 gm/dL [facility] Hematocrit 27.1(L) 35.7 - 45.8 % [facility] Mean Cell Volume 92.8 82.6 - 94.4 fL [facility] Mean Cell Hemoglobin 31.2 27.1 - 32.0 pg [facility] Mean Cell Hemoglobin Concentration 33.6 31.7 - 35.0 gm/dL [facility] Platelet 309 145 - 357 x10(3)/mc L [facility] RDW Standard Deviation 38.9 37.0 - 46.0 fL [facility] RDW coefficient of variation 11.5 11.5 - 14.1 % [facility] Mean Platelet Volume 8.4 7.6 - 12.9 fL [facility] NRBC% auto 0.0 % [facility] NRBC Absolute 0.000 0.000 - 0.000 x10(3)/mc L [facility] Blood specimen (specimen) 12/22/2017 9:56 AM EDT 12/22/2017 10:10 AM EDT Narrative Resulting Agency Comment Spec In Lab Vani Hook APRN HEMATOLOGY ORDERABL ES [facility] [place] [address] * (ABNORMAL) Basic Metabolic Panel (non-fasting) (12/22/2017 9:56 AM EDT) Glucose 162 65 - 199 mg/dL [facility] Comment:Diabetes: >=200 mg/d L plus symptoms Blood Urea Nitrogen 11 8 - 18 mg/dL [facility] Creatinine 0.73 0.70 - 1.20 mg/dL [facility] Sodium 135 135 - 145 mmol/L [facility] Potassium 4.0 3.5 - 5.0 mmol/L [facility] Comment: Please note: ??Patients with WBC >100,000 may have falsely elevated Potassium levels. ??For accurate Potassium quantification in these patients send serum separator tube (gold top) for subsequent determinations. ??Contact the Clinical Chemistry Laboratory if there are any questions. Chloride 97(L) 98 - 107 mmol/L [facility] Carbon Dioxide 25 22 - 31 mmol/L [facility] Anion Gap 13 5 - 15 mmol/L [facility] Calcium 8.7 8.5 - 10.5 mg/dL [facility] Est Glomerular Filtration Rate 95 >=60 mL/min/1. 73 m?? [facility] Comment: The eGFR was calculated using the CKD-EPI equation. As with all creatinine based estimates of kidney function, eGFR values calculated with the CKD-EPI equation are not accurate in patients with acute kidney failure, extremes of body mass or the acutely ill. [email or web address] eGFR 110 >=60 mL/min/1. 73 m?? [facility] Comment: The eGFR was calculated using the CKD-EPI equation. As with all creatinine based estimates of kidney function, eGFR values calculated with the CKD-EPI equation are not accurate in patients with acute kidney failure, extremes of body mass or the acutely ill. [email or web address] Blood specimen (specimen) 12/22/2017 9:56 AM EDT 12/22/2017 10:10 AM EDT Narrative Resulting Agency Comment Spec In Lab Vani Hook APRN CHEMISTRY ORDERABLE S [facility] [place] [address] * (ABNORMAL) Basic Metabolic Panel (non-fasting) (12/21/2017 7:04 AM EDT) Glucose 90 65 - 199 mg/dL [facility] Comment:Diabetes: >=200 mg/d L plus symptoms Blood Urea Nitrogen 15 8 - 18 mg/dL [facility] Creatinine 0.73 0.70 - 1.20 mg/dL [facility] Sodium 138 135 - 145 mmol/L [facility] Potassium 3.9 3.5 - 5.0 mmol/L [facility] Comment: Please note: ??Patients with WBC >100,000 may have falsely elevated Potassium levels. ??For accurate Potassium quantification in these patients send serum separator tube (gold top) for subsequent determinations. ??Contact the Clinical Chemistry Laboratory if there are any questions. Chloride 100 98 - 107 mmol/L [facility] Carbon Dioxide 25 22 - 31 mmol/L [facility] Anion Gap 13 5 - 15 mmol/L [facility] Calcium 8.4(L) 8.5 - 10.5 mg/dL [facility] Est Glomerular Filtration Rate 95 >=60 mL/min/1. 73 m?? [facility] Comment: The eGFR was calculated using the CKD-EPI equation. As with all creatinine based estimates of kidney function, eGFR values calculated with the CKD-EPI equation are not accurate in patients with acute kidney failure, extremes of body mass or the acutely ill. [email or web address] eGFR 110 >=60 mL/min/1. 73 m?? [facility] Comment: The eGFR was calculated using the CKD-EPI equation. As with all creatinine based estimates of kidney function, eGFR values calculated with the CKD-EPI equation are not accurate in patients with acute kidney failure, extremes of body mass or the acutely ill. [email or web address] Blood specimen (specimen) 12/21/2017 7:04 AM EDT 12/21/2017 7:25 AM EDT Narrative Resulting Agency Comment Spec In Lab Reinaldo Romero MD CHEMISTRY ORDERABLES [facility] [place] [address] * (ABNORMAL) Hemogram (12/21/2017 7:04 AM EDT) White Blood Cell 6.8 4.0 - 9.5 x10(3)/mc L [facility] Red Blood Cell 2.75(L) 4.00 - 5.21 x10(6)/mc L [facility] Hemoglobin 8.7(L) 11.7 - 15.5 gm/dL [facility] Hematocrit 25.6(L) 35.7 - 45.8 % [facility] Mean Cell Volume 93.1 82.6 - 94.4 fL [facility] Mean Cell Hemoglobin 31.6 27.1 - 32.0 pg [facility] Mean Cell Hemoglobin Concentration 34.0 31.7 - 35.0 gm/dL [facility] Platelet 253 145 - 357 x10(3)/mc L [facility] RDW Standard Deviation 39.4 37.0 - 46.0 fL [facility] RDW coefficient of variation 11.7 11.5 - 14.1 % [facility] Mean Platelet Volume 8.7 7.6 - 12.9 fL [facility] NRBC% auto 0.0 % [facility] NRBC Absolute 0.000 0.000 - 0.000 x10(3)/mc L [facility] Blood specimen (specimen) 12/21/2017 7:04 AM EDT 12/21/2017 7:25 AM EDT Narrative Resulting Agency Comment Spec In Lab Reinaldo Romero MD HEMATOLOGY ORDERABLE S Performing Organization Address City/State/[facility] Co de Phone Number [facility] [place] [address] * XR Pelvis Judet or In Out [...] IMG FLUORO ORDERABLE S Performing Organization Address City/[facility] Co de Phone Number [place], [place] * ABORH Recheck Status (12/20/2017 8:08 AM EDT) ABORH Type Recheck Completed [facility] Blood specimen (specimen) 12/20/2017 8:08 AM EDT 12/20/2017 8:39 AM EDT Narrative Resulting Agency Comment Spec In Lab Joyce Parra MD BLOOD BANK LAB ORDER NITZA Performing Organization Address City/[facility]/ZIP Co de Phone Number [facility] [place] [address] * Antibody screen (12/20/2017 8:08 AM EDT) [facility] Ab Screen Interp Negative [facility] Expires at [id number] on: 12/23/2017 [facility] Blood specimen (specimen) 12/20/2017 8:08 AM EDT 12/20/2017 8:39 AM EDT Narrative Resulting Agency Comment Spec In Lab Joyce Parra MD BLOOD BANK LAB ORDER NITZA [facility] [place] [address] * ABO/Rh Typing (12/20/2017 8:08 AM EDT) [facility] ABORH Type A Neg [facility] Blood specimen (specimen) 12/20/2017 8:08 AM EDT 12/20/2017 8:39 AM EDT Narrative Resulting Agency Comment Spec In Lab Joyce Parra MD BLOOD BANK LAB ORDER NTIZA Performing Organization Address City/[facility]/ZIP Co de Phone Number [facility] [place] [address] * Differential, Automated (12/17/2017 6:55 AM EDT) [facility] Neutrophil % 60.2 % [facility] Neutrophil Absolute 4.23 1.70 - 6.10 x10(3)/[facility] Lymph % 30.2 % [facility] Lymphocytes Abs 2.1 0.9 - 3.2 x10(3)/[facility] Monocyte % 8.0 % [facility] Monocyte Abs 0.6 0.3 - 0.9 x10(3)/[facility] Eos % 1.1 % [facility] Eosinophils Abs 0.1 0.0 - 0.4 x10(3)/[facility] Basophil % 0.4 % [facility] Baso Absolute 0.0 0.0 - 0.1 x10(3)/[facility] Immature Gran % 0.10 % [facility] Comment: Immature granulocytes(IG's)percentage and absolute count will include metamyelocytes, myelocytes, and promyelocytes. Blood smears from CBCs yielding IG's will be scanned manually for concordance. If this scan disagrees with the automated IG or if promyelocytes are noted, a manual differential will be performed. Immature Gran Absolute 0.01 0.00 - 0.04 x10(3)/[facility] Blood specimen (specimen) 12/17/2017 6:55 AM EDT 12/17/2017 7:04 AM EDT Narrative Resulting Agency Comment Spec In Lab Rajinder Gracia MD HEMATOLOGY OR DERABLES Performing Organization Address City/State/[facility] Co de Phone Number [facility] [place] [address] * (ABNORMAL) Hemogram (12/17/2017 6:55 AM EDT) White Blood Cell 7.0 4.0 - 9.5 x10(3)/mc L [facility] Red Blood Cell 3.36(L) 4.00 - 5.21 x10(6)/mc L [facility] Hemoglobin 10.9(L) 11.7 - 15.5 gm/dL [facility] Hematocrit 31.1(L) 35.7 - 45.8 % [facility] Mean Cell Volume 92.6 82.6 - 94.4 fL [facility] Mean Cell Hemoglobin 32.4(H) 27.1 - 32.0 pg [facility] Mean Cell Hemoglobin Concentration 35.0 31.7 - 35.0 gm/dL [facility] Platelet 195 145 - 357 x10(3)/ L [facility] RDW Standard Deviation 38.9 37.0 - 46.0 fL [facility] RDW coefficient of variation 11.5 11.5 - 14.1 % [facility] Mean Platelet Volume 9.0 7.6 - 12.9 fL [facility] NRBC% auto 0.0 % [facility] NRBC Absolute 0.000 0.000 - 0.000 x10(3)/mc L [facility] Blood specimen (specimen) 12/17/2017 6:55 AM EDT 12/17/2017 7:04 AM EDT Narrative Resulting Agency Comment Spec In Lab Rajinder Gracia MD HEMATOLOGY OR DERABLES [facility] [place] [address] * (ABNORMAL) Basic Metabolic Panel (non-fasting) (12/17/2017 6:55 AM EDT) Glucose 91 65 - 199 mg/dL [facility] Comment:Diabetes: >=200 mg/d L plus symptoms Blood Urea Nitrogen 11 8 - 18 mg/dL [facility] Creatinine 0.63(L) 0.70 - 1.20 mg/dL [facility] Sodium 142 135 - 145 mmol/L [facility] Potassium 3.9 3.5 - 5.0 mmol/L [facility] Comment: Please note: ??Patients with WBC >100,000 may have falsely elevated Potassium levels. ??For accurate Potassium quantification in these patients send serum separator tube (gold top) for subsequent determinations. ??Contact the Clinical Chemistry Laboratory if there are any questions. Chloride 102 98 - 107 mmol/L [facility] Carbon Dioxide 26 22 - 31 mmol/L [facility] Anion Gap 14 5 - 15 mmol/L [facility] Calcium 9.0 8.5 - 10.5 mg/dL [facility] Est Glomerular Filtration Rate 103 >=60 mL/min/1. 73 m?? [facility] Comment: The eGFR was calculated using the CKD-EPI equation. As with all creatinine based estimates of kidney function, eGFR values calculated with the CKD-EPI equation are not accurate in patients with acute kidney failure, extremes of body mass or the acutely ill. [email or web address]/Trapsternkdep [email or web address]/[facility] [email or web address] eGFR 120 >=60 mL/min/1. 73 m?? [facility] Comment: The eGFR was calculated using the CKD-EPI equation. As with all creatinine based estimates of kidney function, eGFR values calculated with the CKD-EPI equation are not accurate in patients with acute kidney failure, extremes of body mass or the acutely ill. [email or web address]/Trapsternkdep [email or web address]/[email or web address] Blood specimen (specimen) 12/17/2017 6:55 AM EDT 12/17/2017 7:04 AM EDT Narrative Resulting Agency Comment Spec In Lab Russell Lewis MD CHEMISTRY ORDERABLE S Performing Organization Address City/State/[facility] Co de Phone Number [facility] [place] [address] * (ABNORMAL) Differential, Automated (12/15/2017 8:22 AM EDT) Neutrophil % 67.1 % [facility] Neutrophil Absolute 5.44 1.70 - 6.10 x10(3)/mc L [facility] Lymph % 20.4 % [facility] Lymphocytes Abs 1.7 0.9 - 3.2 x10(3)/mc L [facility] Monocyte % 12.2 % [facility] Monocyte Abs 1.0(H) 0.3 - 0.9 x10(3)/mc L [facility] Eos % 0.0 % [facility] Eosinophils Abs 0.0 0.0 - 0.4 x10(3)/mc L [facility] Basophil % 0.1 % [facility] Baso Absolute 0.0 0.0 - 0.1 x10(3)/ L [facility] Immature Gran % 0.20 % [facility] Comment: Immature granulocytes(IG's)percentage and absolute count will include metamyelocytes, myelocytes, and promyelocytes. Blood smears from CBCs yielding IG's will be scanned manually for concordance. If this scan disagrees with the automated IG or if promyelocytes are noted, a manual differential will be performed. Immature Gran Absolute 0.02 0.00 - 0.04 x10(3)/ L [facility] Blood specimen (specimen) 12/15/2017 8:22 AM EDT 12/15/2017 8:32 AM EDT Narrative Resulting Agency Comment Spec In Lab Elver Huddleston MD HEMATOLOGY ORDERABLE S [facility] [place] [address] * (ABNORMAL) Hemogram (12/15/2017 8:22 AM EDT) White Blood Cell 8.1 4.0 - 9.5 x10(3)/ L [facility] Red Blood Cell 3.21(L) 4.00 - 5.21 x10(6)/mc L [facility] Hemoglobin 10.5(L) 11.7 - 15.5 gm/dL [facility] Hematocrit 29.6(L) 35.7 - 45.8 % [facility] Mean Cell Volume 92.2 82.6 - 94.4 fL [facility] Mean Cell Hemoglobin 32.7(H) 27.1 - 32.0 pg [facility] Mean Cell Hemoglobin Concentration 35.5(H) 31.7 - 35.0 gm/dL [facility] Platelet 145 145 - 357 x10(3)/ L [facility] RDW Standard Deviation 39.6 37.0 - 46.0 fL [facility] RDW coefficient of variation 11.6 11.5 - 14.1 % [facility] Mean Platelet Volume 8.7 7.6 - 12.9 fL [facility] NRBC% auto 0.0 % [facility] NRBC Absolute 0.000 0.000 - 0.000 x10(3)/mc L [facility] Blood specimen (specimen) 12/15/2017 8:22 AM EDT 12/15/2017 8:32 AM EDT Narrative Resulting Agency Comment Spec In Lab Elver Huddleston MD HEMATOLOGY ORDERABLE S Performing Organization Address City/[facility]/ZIP Co de Phone Number [facility] [place] [address] * Magnesium (12/15/2017 8:22 AM EDT) [facility] Magnesium 0.85 0.69 - 1.07 mmol/L [facility] Blood specimen (specimen) 12/15/2017 8:22 AM EDT 12/15/2017 8:33 AM EDT Narrative Resulting Agency Comment Spec In Lab Priya Whitaker APRN CHEMISTRY ORDERABLES Performing Organization Address [facility]/ZIP Co de Phone Number [facility] [place] [address] * (ABNORMAL) Basic Metabolic Panel (non-fasting) (12/15/2017 8:22 AM EDT) Glucose 102 65 - 199 mg/dL [facility] Comment:Diabetes: >=200 mg/d L plus symptoms Blood Urea Nitrogen 9 8 - 18 mg/dL [facility] Creatinine 0.83 0.70 - 1.20 mg/dL [facility] Sodium 143 135 - 145 mmol/L [facility] Potassium 3.8 3.5 - 5.0 mmol/L [facility] Comment: Please note: ??Patients with WBC >100,000 may have falsely elevated Potassium levels. ??For accurate Potassium quantification in these patients send serum separator tube (gold top) for subsequent determinations. ??Contact the Clinical Chemistry Laboratory if there are any questions. Chloride 103 98 - 107 mmol/L [facility] Carbon Dioxide 25 22 - 31 mmol/L [facility] Anion Gap 15 5 - 15 mmol/L [facility] Calcium 8.4(L) 8.5 - 10.5 mg/dL [facility] Est Glomerular Filtration Rate 81 >=60 mL/min/1. 73 m?? [facility] Comment: The eGFR was calculated using the CKD-EPI equation. As with all creatinine based estimates of kidney function, eGFR values calculated with the CKD-EPI equation are not accurate in patients with acute kidney failure, extremes of body mass or the acutely ill. http://[place]/Trapsternkdep http://[place]/[email or web address] eGFR 94 >=60 mL/min/1. 73 m?? [facility] Comment: The eGFR was calculated using the CKD-EPI equation. As with all creatinine based estimates of kidney function, eGFR values calculated with the CKD-EPI equation are not accurate in patients with acute kidney failure, extremes of body mass or the acutely ill. [email or web address]/DHnkdep [email or web address] Blood specimen (specimen) 12/15/2017 8:22 AM EDT 12/15/2017 8:32 AM EDT Narrative Resulting Agency Comment Spec In Lab Russell Lewis MD CHEMISTRY ORDERABLE S [facility] [place] [address] * XR Pelvis Judet or In Out [...] a radiologist interpretation. ?? Reinaldo Romero MD [facility] FLUORO ORDERABLE S Performing Organization Address [facility] de Phone Number [place], [place] * XR Fluoro No Rad <1Hr - OR Use (12/14/2017 12:20 PM EDT) Narrative RAD - 12/14/2017 1:12 PM EDT This order does not need a radiologist interpretation. ?? Rienaldo Romero MD [facility] FLUORO ORDERABLE S Performing Organization Address [facility] de Phone Number [place], [place] * XR Fluoro No Rad <1Hr - OR Use (12/14/2017 11:39 AM EDT) Narrative RAD - 12/14/2017 11:39 AM EDT This order does not need a radiologist interpretation. ?? Reinaldo Romero MD [facility] FLUORO ORDERABLE S Performing Organization Address [facility] de Phone Number [place], [place] * CT Knee wo Contrast Right [...] Nayely Hernández at 12/14/2017 9:01 AM Russell RAYAG DX ORDERABLES * XR Fluoro No Rad <1Hr - OR Use (12/14/2017 3:32 AM EDT) Narrative RAD - 12/14/2017 3:32 AM EDT This order does not need a radiologist interpretation. ?? Russell SNEED FLUORO ORDERABL ES Performing Organization Address City/State/[facility] Co de Phone Number [place], [place] * XR Forearm Right (Generic) (12/14/2017 [...] with history and regional physical examination. Russell SNEED DX ORDERABLES * XR Tibia Fibula Right [...] No other fracture identified. Russell Lewis MD G DX ORDERABLES * XR Shoulder Right (Generic) [...] 12:30 AM EDT) ABORH Type Recheck Completed [facility] Blood specimen (specimen) 12/14/2017 12:30 AM EDT 12/14/2017 12:30 AM EDT Narrative Resulting Agency Comment Spec In Lab Russell Lewis MD BLOOD BANK LAB RAYMOND TINSLEY [facility] [place] [address] * Antibody screen (12/14/2017 12:30 AM EDT) Ab Screen Interp Negative [facility] Expires at [id number] on: 12/17/2017 [facility] Blood specimen (specimen) 12/14/2017 12:30 AM EDT 12/14/2017 12:30 AM EDT Narrative Resulting Agency Comment Spec In Lab Russell Lewis MD BLOOD BANK LAB RAYMOND TINSLEY Performing Organization Address City/[facility]/ZIP Co de Phone Number [facility] [place] [address] * ABO/Rh Typing (12/14/2017 12:30 AM EDT) ABORH Type A Neg [facility] Blood specimen (specimen) 12/14/2017 12:30 AM EDT 12/14/2017 12:30 AM EDT Narrative Resulting Agency Comment Spec In Lab Russell Lewis MD BLOOD BANK LAB RAYMOND TINSLEY Performing Organization Address City/[facility]/ZIP Co de Phone Number [facility] [place] [address] * L-Lactate2 Whole Blood (12/14/2017 12:15 AM EDT) [facility] Signature Lactate WB 1.7 0.5 - 2.2 mmol/L [facility] Blood specimen (specimen) 12/14/2017 12:15 AM EDT 12/14/2017 12:15 AM EDT Russell Lewis MD CHEMISTRY ORDERABLE S Performing Organization Address City/[facility]/ZIP Co de Phone Number [facility] [place] [address] * SCAN DOC: IMPLANTABLE DEVICES (12/14/2017 12:00 AM EDT) Narrative 12/14/2017 12:00 AM EDT Ordered by an unspecified provider. Scanning Provider MEDIA MGR SCAN EXT O RDR/RSLT * Gold Tube HOLD (12/14/2017 12:00 AM EDT) Gold Hold Sample in lab. [facility] Blood specimen (specimen) Venous Draw / Unknown 12/14/2017 12/14/2017 12:14 AM EDT Chinedu Ortega MD CHEMISTRY ORDERABLES [facility] [place] [address] * (ABNORMAL) Differential, Automated (12/14/2017 12:00 AM EDT) [facility] Neutrophil % 83.9 % [facility] Neutrophil Absolute 9.56(H) 1.70 - 6.10 x10(3)/mc L [facility] Lymph % 9.8 % [facility] Lymphocytes Abs 1.1 0.9 - 3.2 x10(3)/mc L [facility] Monocyte % 5.8 % [facility] Monocyte Abs 0.7 0.3 - 0.9 x10(3)/mc L [facility] Eos % 0.0 % [facility] Eosinophils Abs 0.0 0.0 - 0.4 x10(3)/mc L [facility] Basophil % 0.2 % [facility] Baso Absolute 0.0 0.0 - 0.1 x10(3)/mc L [facility] Immature Gran % 0.30 % [facility] Comment: Immature granulocytes(IG's)percentage and absolute count will include metamyelocytes, myelocytes, and promyelocytes. Blood smears from CBCs yielding IG's will be scanned manually for concordance. If this scan disagrees with the automated IG or if promyelocytes are noted, a manual differential will be performed. Immature Gran Absolute 0.03 0.00 - 0.04 x10(3)/mc L [facility] Blood specimen (specimen) 12/14/2017 12/14/2017 12:07 AM EDT Narrative Resulting Agency Comment Spec In Lab Russell Lewis MD HEMATOLOGY ORDERABL ES [facility] [place] [address] * (ABNORMAL) Hemogram (12/14/2017 12:00 AM EDT) White Blood Cell 11.4(H) 4.0 - 9.5 x10(3)/ L [facility] Red Blood Cell 3.78(L) 4.00 - 5.21 x10(6)/[facility] Hemoglobin 12.2 11.7 - 15.5 gm/dL [facility] Hematocrit 35.0(L) 35.7 - 45.8 % [facility] Mean Cell Volume 92.6 82.6 - 94.4 fL [facility] Mean Cell Hemoglobin 32.3(H) 27.1 - 32.0 pg [facility] Mean Cell Hemoglobin Concentration 34.9 31.7 - 35.0 gm/dL [facility] Platelet 195 145 - 357 x10(3)/ L [facility] RDW Standard Deviation 40.1 37.0 - 46.0 [facility] RDW coefficient of variation 11.9 11.5 - 14.1 % [facility] Mean Platelet Volume 8.5 7.6 - 12.9 fL [facility] NRBC% auto 0.0 % [facility] NRBC Absolute 0.000 0.000 - 0.000 x10(3)/ L [facility] Blood specimen (specimen) 12/14/2017 12/14/2017 12:07 AM EDT Narrative Resulting Agency Comment Spec In Lab Russell Lewis MD HEMATOLOGY ORDERABL ES Performing Organization Address [facility] de Phone Number [facility] [place] [address] * Ethanol Level (12/14/2017 12:00 AM EDT) Ethanol <100 <=99 mg/L [facility] Comment: Greater than 800 mg/L (0.08%) should be considered intoxicated. 3400 to 4500 mg/L (0.34 - 0.45%) is considered severe intoxication. Greater than 5500 mg/L (0.55%) is usually fatal. Blood specimen (specimen) 12/14/2017 12/14/2017 12:07 AM EDT Narrative Resulting Agency Comment Spec In Lab Russell Lewis MD CHEMISTRY ORDERABLE S Performing Organization Address [facility] de Phone Number [facility] [place] [address] * (ABNORMAL) APTT (12/14/2017 12:00 AM EDT) Partial Thromboplastin Time 24(L) 25 - 37 sec [facility] Comment: The PTT is NOT appropriate for heparin monitoring. Use the Anti-Xa level for heparin monitoring (HEP UFH) or LMWH monitoring (HEP LMW). A PTT less than 37 seconds generally indicates adequate hemostasis. Blood specimen (specimen) 12/14/2017 12/14/2017 12:07 AM EDT Narrative Resulting Agency Comment Spec In Lab Russell Lewis MD HEMATOLOGY ORDERABL ES Performing Organization Address [facility] Co de Phone Number [facility] [place] [address] * Prothrombin Time (12/14/2017 12:00 AM EDT) Prothrombin Time 11.2 9.4 - 12.5 sec [facility] International Normalization Ratio 1.0 [facility] Comment: An INR <2.0 indicates [...] Lab Russell Lewis MD HEMATOLOGY ORDERABL ES [facility] [place] [address] * (ABNORMAL) Basic Metabolic Panel (non-fasting) (12/14/2017 12:00 AM EDT) Glucose 124 65 - 199 mg/dL [facility] Comment:Diabetes: >=200 mg/d L plus symptoms Blood Urea Nitrogen 13 8 - 18 mg/dL [facility] Creatinine 0.92 0.70 - 1.20 mg/dL [facility] Sodium 140 135 - 145 mmol/L [facility] Potassium 4.6 3.5 - 5.0 mmol/L [facility] Comment: Please note: ??Patients with WBC >100,000 may have falsely elevated Potassium levels. ??For accurate Potassium quantification in these patients send serum separator tube (gold top) for subsequent determinations. ??Contact the Clinical Chemistry Laboratory if there are any questions. Chloride 103 98 - 107 mmol/L [facility] Carbon Dioxide 26 22 - 31 mmol/L [facility] Anion Gap 11 5 - 15 mmol/L [facility] Calcium 8.4(L) 8.5 - 10.5 mg/dL [facility] Est Glomerular Filtration Rate 72 >=60 mL/min/1. 73 m?? [facility] Comment: The eGFR was calculated using the CKD-EPI equation. As with all creatinine based estimates of kidney function, eGFR values calculated with the CKD-EPI equation are not accurate in patients with acute kidney failure, extremes of body mass or the acutely ill. [email or web address]/Trapsternkdep [email or web address]/Trapsternkf eGFR 83 >=60 mL/min/1. 73 m?? [facility] Comment: The eGFR was calculated using the CKD-EPI equation. As with all creatinine based estimates of kidney function, eGFR values calculated with the CKD-EPI equation are not accurate in patients with acute kidney failure, extremes of body mass or the acutely ill. [email or web address]/DHnkdep [email or web address]/[email or web address] Blood specimen (specimen) 12/14/2017 12/14/2017 12:07 AM EDT Narrative Resulting Agency Comment Spec In Lab Russell Lewis MD CHEMISTRY ORDERABLE S Performing Organization Address City/[facility]/ZIP Co de Phone Number [facility] [place] [address] * SCAN DOC: PRODUCE PRODUCTION TEAM MEMBER (12/14/2017 12:00 AM EDT) Anatomical Region Laterality Modality Other Narrative 12/14/2017 12:00 AM EDT Ordered by an unspecified provider. Scanning Provider MEDIA MGR SCAN EXT O RDR/RSLT * Urinalysis Microscopic Exam (12/13/2017 11:55 PM EDT) RBC, Urine 3 0 - 4 /HPF [facility] WBC, Urine 2 0 - 5 /HPF [facility] Urine specimen (specimen) 12/13/2017 11:55 PM EDT 12/14/2017 12:07 AM EDT Narrative Resulting Agency Comment Spec In Lab Russell Lewis MD URINE ORDERABLES Performing Organization Address City/[facility]/ZIP Co de Phone Number [facility] [place] [address] * (ABNORMAL) Urinalysis with reflex Culture (12/13/2017 11:55 PM EDT) Glucose, Urine Dipstick Negative Negative mg/dL [facility] Protein, Urine Dipstick Negative Negative mg/dL [facility] Bilirubin, Urine Dipstick Negative Negative mg/dL [facility] Comment: Clinical correlation required for positive Urine Bilirubin results as false positive may occur with some drugs and drug related products. If a false positive is suspected a serum total bilirubin should be considered if clinically indicated. Urobilinogen, Urine Dipstick Normal Normal mg/dL [facility] pH, Urn (dipstick) 6.0 5.0 - 8.0 [facility] Blood, Urine Dipstick Small(A) Negative mg/dL [facility] Ketone, Urine Dipstick Negative Negative mg/dL [facility] Nitrite, Urine Dipstick Negative Negative [facility] Leukocytes, Urine Dipstick Negative Negative [facility] Appearance, Urine Dipstick Clear Clear [facility] Specific [place] Urine Automated >1.035(H) 1.002 - 1.030 [facility] Color, Urine Dipstick Straw Yellow [facility] Reflex to Culture No [facility] Urine specimen (specimen) 12/13/2017 11:55 PM EDT 12/14/2017 12:07 AM EDT Narrative Resulting Agency Comment Spec In Lab Russell Lewis MD URINE ORDERABLES [facility] [place] [address] * Rapid Drug Screen w/ Confirmation, Urine (12/13/2017 11:54 PM EDT) Barbiturates Screen, Urine None Detected None Detected [facility] Comment: The barbiturate screen detects [...] Benzodiazepines Screen, Urine None Detected None Detected [facility] Comment: The benzodiazepines screen detects [...] Cocaine Screen, Urine None Detected None Detected [facility] Comment: The cocaine metabolites screen detects benzoylecgonine (Cocaine Metabolite) at concentrations >150 ng/mL. A ? Presumptive Positive? result indicates that the screening result was positive but has not yet been confirmed by a highly-specific method. As with any screen, occasional false positive results from cross-reacting substances may occur. Not for Medico-Legal Purposes. Methadone Metabolites Screen, Urine None Detected None Detected [facility] Comment: The methadone metabolite screen detects EDDP (major methadone metabolite) at concentrations >100 ng/mL. A ? Presumptive Positive? result indicates that the screening result was positive but has not yet been confirmed by a highly-specific method. As with any screen, occasional false positive results from cross-reacting substances may occur. Not for Medico-Legal Purposes. Opiate Screen, Urine None Detected None Detected [facility] Comment: The opiates screen detects [...] Cannabinoid Screen, Urine None Detected None Detected [facility] Comment: The marijuana metabolites screen detects the THC metabolite (91-vyn-3-carboxy-delta 9-THC) at concentrations >20 ng/mL. A ? Presumptive Positive? result indicates that the screening result was positive but has not yet been confirmed by a highly-specific method. As with any screen, occasional false positive results from cross-reacting substances may occur. Not for Medico-Legal Purposes. Oxycodone Screen, Urine None Detected None Detected [facility] Comment: The oxycodone screen detects oxycodone and oxymorphone at concentrations >100 ng/mL. A ? Presumptive Positive? result indicates that the screening result was positive but has not yet been confirmed by a highly-specific method. As with any screen, occasional false positive results from cross-reacting substances may occur. Not for Medico-Legal Purposes. Buprenorphine Screen, Urine None Detected None Detected [facility] Comment: The buprenorphine screen detects buprenorphine at concentrations >5 ng/mL. A ? Presumptive Positive? result indicates that the screening result was positive but has not yet been confirmed by a highly-specific method. As with any screen, occasional false positive results from cross-reacting substances may occur. Not for Medico-Legal Purposes. Fentanyl Screen, Urine None Detected None Detected [facility] Comment: The fentanyl screen detects fentanyl at concentrations >2 ng/mL. A ? Presumptive Positive? result indicates that the screening result was positive but has not yet been confirmed by a highly-specific method. As with any screen, occasional false positive results from cross-reacting substances may occur. Not for Medico-Legal Purposes. Tricyclics Screen, Urine None Detected None Detected [facility] Comment: The tricyclics screen detects [...] Ethanol Screen, Urine None Detected None Detected [facility] Comment:This urine ethanol a ssay detects ethanol at concentrations >/= 100 mg/L. Amphetamines Screen, Urine None Detected None Detected [facility] Comment: The amphetamine screen detects d-amphetamine and d-methamphetamine at concentrations >300 ng/mL. A ? Presumptive Positive? result indicates that the screening result was positive but has not yet been confirmed by a highly-specific method. As with any screen, occasional false positive results from cross-reacting substances may occur. Not for Medico-Legal Purposes. Adulterants Screen, Urine None Detected None Detected [facility] Comment: No adulteration or dilution [...] MD CHEMISTRY ORDERABLE S Performing Organization Address [facility] Co de Phone Number [facility] [place] [address] * Rapid Drug Screen, Urine (PRETTY Request) (12/13/2017 11:54 PM EDT) PRETTY Conf Requested Yes [facility] PRETTY Requested See Comment [facility] Comment:Refer to Rapid Drug Screen w/ Confirmation, Urine for results. Urine specimen (specimen) 12/13/2017 11:54 PM EDT 12/14/2017 12:07 AM EDT Narrative Resulting Agency Comment Spec In Lab Russell Lewis MD URINE ORDERABLES Performing Organization Address [facility] Co de Phone Number [facility] [place] [address] * Request For 2nd Read CT Head [...] CT Spine (12/13/2017 12:20 AM EDT) Narrative [facility] - 12/13/2017 10:12 PM EDT This exam is for storage only and is auto-finalizing. Russell SNEED FILM LIBRARY OR DERABLES [place], [place] * Film Library- Storage Only CT Chest Abdomen Pelvis (12/13/2017 12:15 AM EDT) Narrative [facility] 12/13/2017 10:11 PM EDT This exam is for storage only and is auto-finalizing. Russell Lewis MD IMG FILM LIBRARY OR DERABLES Performing Organization Address [facility] de Phone Number [place], [place] * Film Library- Storage Only DX Knee (12/13/2017 12:10 AM EDT) [facility] 12/13/2017 10:05 PM EDT This exam is for storage only and is auto-finalizing. Russell Lewis MD IMG FILM LIBRARY OR DERABLES Performing Organization Address [facility] Phone Number [place], [place] * Film Library- Storage Only DX Wrist (12/13/2017 12:05 AM EDT) [facility] 12/13/2017 10:04 PM EDT This exam is for storage only and is auto-finalizing. Russell Lewis MD [facility] FILM LIBRARY OR DERABLES Performing Organization Address [facility] de Phone Number [place], [place] * Film Library- Storage Only CT Head And Spine (12/13/2017 12:00 AM EDT) [facility] 12/13/2017 10:03 PM EDT This exam is for storage only and is auto-finalizing. Russell Lewis MD [facility] FILM LIBRARY OR DERABLES Performing Organization Address [facility] de Phone Number [place], [place] documented in this encounter Visit Diagnoses [...] (2.5 mg/mL) injection ONCE PRN, Starting on Wed12/14/17 at 1145, Until Wed12/24/17 at 1617, Intra-Operative [...] Tube, DAILY PRN, Starting on 12/18/17 at 2027, [...] Young, HAYLEY) 040 (Given - Provider: Cary Urrutia RN)0821 (Not Given - Provider: Chrsitin Edwards RN - Reason: Patient/family refused - Comment: pt educated)1607 (Given - Provider: Faina Ortega RN)204 (Given - Provider: La Castrejon RN) 040 (Given - Provider: La Castrejon RN)1011 (Given - Provider: Pita Her, HAYLEY) enoxaparin (LOVENOX) injection 30 mg 30 mg, Subcutaneous, EVERY 12 HOURS SCHEDULED (2 times per day), First dose on Wed12/20/17 at 2100, Until Discontinued, Routine 0845 (Given - Provider: Christin Edwards RN)212 (Given - Provider: Baltazar Young, HAYLEY) 0821 (Given - Provider: Christin Edwards, HAYLEY)204 (Given - Provider: La Castrejon RN) 1012 (Given - Provider: Pita Her, HAYLEY) senna-docusate (PERICOLACE) 8.6-50 mg per tablet 2 tablet 2 tablet, Oral, 2 TIMES DAILY, First dose on Wed12/14/17 at 0900, Until Discontinued, Routine 0844 (Given - Provider: Christin Edwards, RN)2119 (Given - Provider: Baltazar Young, RN) 08 (Given - Provider: Christin Edwards, RN)2044 (Given - Provider: La Castrejon, RN) 101 (Given - Provider: Pita Her RN) sodium chloride 0.9 % flush 5 mL 5 mL, Intravenous, 2 TIMES DAILY, First dose on Wed12/14/17 at 0900, Until Discontinued, Recovery (Recovery-Hospital Unit), Routine 0845 (Given - Provider: Christin Edwards RN)2119 (Given - Provider: Baltazar Young, RN) 08 (Given - Provider: Christin Edwards, RN)2047 (Given - Provider: La Castrejon, RN) [...] Urrutia, RN)1335 (Given - Provider: Christin Edwards, RN)2120 (Given - Provider: Baltazar Young, HAYLEY) 1610 [...] Subcutaneous, ONCE PRN, 1 dose, Starting on Tu12/14/17 at 0416, Until Wed12/24/17 at 1617, for [...] Per G Tube, DAILY PRN, Starting on Sat 18 at 2028, Until Wed12/24/17 at 1617, Constipation, [...] Urrutia RN)2342 (See Alternative - Provider: Cary Urrutia, HAYLEY) 0409 (See Alternative - Provider: Cary Urrutia [...] Urrutia RN)0843 (Given - Provider: Christin Edwards RN)1331 (Given - Provider: Christin Edwards RN)1951 (Given - Provider: Cary Urrutia RN)2341 (Given - Provider: Cary Urrutia RN) 040 (Given - Provider: Cary Urrutia RN)08 (Given - Provider: Christin Edwards RN)2045 (Given - Provider: La Castrejon, HAYLEY) 042 (Given - Provider: La Castrejon, RN)123 (Given - Provider: Pita Her, HAYLEY) oxyCODONE (ROXICODONE) immediate release tablet 5 mg(Linked Group 2) 5 mg, Oral, EVERY 3 HOURS PRN, Starting on Wed12/21/17 at 0620, Until Wed12/24/17 at 1617, Pain, mild pain (1-3), May give additional 5 mg in 30 minutes once if pain not relieved., Routine 050 (See Alternative - Provider: Cary Urrutia RN)0843 (See Alternative - Provider: Christin Edwards RN)1331 (See Alternative - Provider: Christin Edwards RN)1951 (See Alternative - Provider: Cary Urrutia RN)2341 (See Alternative - Provider: Cary Urrutia RN) 408 (See Alternative - Provider: Cary Urrutia RN)0820 (See Alternative - Provider: Christin Edwards RN)2045 (See Alternative - Provider: La Castrejon RN) 042 (See Alternative - Provider: La Castrejon, HAYLEY)123 (See Alternative - Provider: Pita Her, HAYLEY) polyethylene glycol (MIRALAX) packet 17 g 17 g, Oral, DAILY PRN, Starting on Wed12/18/17 at 2026, Until Wed12/24/17 at 161, Constipation, Administer if [...] Wed12/14/17 at 0416, Until Wed12/24/17 at 161, flush, Flush pertains to all indwelling lines. [...] Routine documented in this encounter Care Teams Webmethods Consultant Relationship Specialty Start Date End Date Keiko Reddy MD [address] [address] PCP - General Family Medicine 06/18/17 05/15/18 documented as of this encounter
--- OUTSIDE RECORDS SUMMARY | 2023-12-28 01:44 | XMS_ITS | Encounter Summary ---
[place] [address] Care Team Providers Care Metal Products Viewer Name Role Phone Keiko Reddy MD Primary Care Provider [phone] Encounter Details Date Type Department Care Team (Latest Contact Info) Description 12/13/2017 10:51 PM EDT Hospital Encounter [place] [id number] Discharge Disposition: Home Social History Tobacco Use [...] AM EDT Appointment Hematology [place] [address] 01/31/2024 10:20 AM EDT Office Visit [place] [address] Rebecca Small MD [facility] [place] [address] 08/01/2024 11:30 AM EDT Office Visit Dermatology at [facility] [address] [place] [address] Phan Engle MD [facility] DR JESS [place] [address] documented as of this encounter Procedures Procedure [...] on filedocumented in this encounter Care Teams Metal Products Viewer Relationship Specialty Start Date End Date Keiko Reddy MD [address] [address] PCP - General Family Medicine 06/18/17 05/15/18 documented as of this encounter
--- OUTSIDE RECORDS SUMMARY | 2023-12-28 01:44 | XMS_ITS | Encounter Summary ---
Author Organization [facility] Address [facility] [place] [address] Care Team Providers Care Corrosion Control Fitter Name Role Phone Keiko Reddy MD Primary Care Provider [phone] Encounter Details Date Type Department Care Team (Latest Contact Info) Description 12/13/2017 12:20 AM EDT - 12/13/2017 10:48 PM EDT Hospital Encounter [place] [address] Discharge Disposition: Home Social History Tobacco Use [...] EDT Appointment Hematology [place] [address] 01/31/2024 10:20 AM EDT Office Visit [place] [address] Rebecca Small MD [facility] [place] [address] 08/01/2024 11:30 AM EDT Office Visit Dermatology at [place] [address] [place] [phone] Phan Engle MD [facility] [address] [place] [address] documented as of this encounter Procedures Procedure Name Priority Date/Time Associated Diagnosis Comments FILM LIBRARY STORAGE ONLY CT SPINE STAT 12/13/2017 12:20 AM EDT documented in this encounter Results * Film Library- Storage Only CT Spine (12/13/2017 12:20 AM EDT) Narrative [facility] - 12/13/2017 10:12 PM EDT This exam is for storage only and is auto-finalizing. Deion Henriquez MD IMG FILM LIBRARY OR DERABLES [place], [place] documented in this encounter Visit Diagnoses Not on filedocumented in this encounter Care Teams Corrosion Control Fitter Relationship Specialty Start Date End Date Keiko Reddy MD [address] [address] PCP - General Family Medicine 06/18/17 05/15/18 documented as of this encounter"
--- OUTSIDE RECORDS SUMMARY | 2023-12-28 01:44 | XMS_ITS | Encounter Summary ---
Author Organization Count Includes [facility] Address [facility] [place] [address] Care Team Providers Care Ton Container Filler Name Role Phone Keiko Reddy MD Primary Care Provider [phone] Reason for Visit * Reason Comments Hospital [...] Expiration Date Visits Re quested Visits Authorized [id number] 1 1 Encounter Details Date Type Department Care Team (Late st Contact Info) Description 12/20/2017 7:30 AM EDT - 12/20/2017 11:00 AM EDT Surgery [place] [address] Tete Talamantes MD [facility] DR [place] [address] @OPEN TREATMENT, ACETABULAR FX (WRVU 25.41) Social [...] Daphne Pickard Patient Age: 52 y.o. Language: Tristanian Race: White Ethnicity: Not nor Admit date: [...] 11:00 AM Heather Colon PA [facility] [address] [place] [address] Inpatient Provider Contact Information: Reinaldo Romero MD Orthopedics: [phone] After hours and weekends, call [facility] Etymology Professor, , and have the Orthopedic resident paged. [...] did well post- operatively. On POD#1 the SUPPLIER QUALITY ENGINEER was discontinued and the patient was started [...] signs and determined safe for discharge to [facility] facility. Vital Signs at Discharge: Weight: Wt [...] pain controlled on oral medications. Discharge to: [facility] Address: [address] [place] [address] [place] [address] Updated Allergies/ADRs: No Known Allergies Immunizations Given [...] Activity: Non weight bearing bilateral lower extremities. Kremmling Brace locked in extension right lower extremity. May use right upper casted arm to assist with transfers. Will need slide board orlift to transfer from bed to chair/wheelchair with staff assistance. When reclining in bed, may open the Kremmling Brace 1-2 times a day to inspect the skin. Re-secure the Bishnu after. 3. Diet: Regular but increase fluids and fiber while on narcotic pain meds 4. Eureka/Sutures: Absorbable sutures right lower leg and upper arm. Removal not needed. Eureka left hip to be removed in 14 [...] with waterproof dressing until zuleyka are removed. Goehner plastic bag taped at the top over the right lower extremity Kremmling brace should be done to keep the Kremmling and wound dry. DO NOT submerge the [...] both of your legs. 2. Keep the Kremmling Brace on your right leg locked in extension. When reclining in bed, may open the Kremmling Brace 1-2 times a day to inspect [...] bowel movement. You can also take an ufql-nff-qykvfav medication, Miralax if needed to combat constipation. [...] with waterproof dressing until zuleyka are removed. Goehner plastic bag taped at the top over the right lower extremity Kremmling brace should be done to keep the [...] skin and wound problems. Call your doctor ([phone]) if you develop: 1. Fever greater than [...] 1. You will have follow-up appointments at [facility] as indicated in Future Appointment and Orders. [...] AM Heather Colon PA [facility] If you have questions or concerns: [...] AM [facility] DX ROOM 9 XRay at [place] [phone] Please go to Scrap Drop Operator Area 3T ([place] Location). 01/04/2018 7:45 AM [facility] DX ROOM 9 [facility] at [place] [phone] Please go to Scrap Drop Operator Area 3T ([place] Location). 01/04/2018 8:00 AM [facility] DX ROOM 9 [facility] at [place] [phone] Please go to Scrap Drop Operator Area 3T ([place] Location). 01/04/2018 9:45 AM [facility] DX ROOM 3 X[facility] at [place] [phone] Please go to Scrap Drop Operator Area 3T ([place] Location). 01/04/2018 10:00 AM [facility] DX ROOM 3 [facility] at [place] [phone] Please go to Scrap Drop Operator Area 3T ([place] Location). 01/04/2018 10:15 AM [facility] DX ROOM 3 XRay at [place] [phone] Please go to Scrap Drop Operator Area 3T ([place] Location). 01/04/2018 11:00 AM Heather Colon PA Orthopaedics at [place] [phone] Future Orders Complete By Expires Full code [...] discussion: Primary Care Provider: Keiko Reddy MD [phone] Discharge References/Attachments INDWELLING URINARY CATHETER CARE: GENERAL INFO ([place]) documented in this encounter Discharge Instructions * Patient Instructions* Kathy Preston PA - 12/15/2017 11:04 AM EDT Orthopedic Surgery Discharge Instructions Activity level: 1. You are Non-weight bearing on both of your legs. 2. Keep the Kremmling Brace on your right leg locked in extension. When reclining in bed, may open the Bishnu Brace 1-2 times a day to inspect the skin. Re- secure the Kremmling after. 3. Remember to use a slide [...] bowel movement. You can also take an kaqh-vbv-hbzorri medication, Miralax if needed to combat constipation. [...] with waterproof dressing until zuleyka are removed. Goehner plastic bag taped at the top over the right lower extremity Bishnu brace should be done to keep the Kremmling and wound dry. DO NOT submerge the [...] skin and wound problems. Call your doctor ([phone]) if you develop: 1. Fever greater than [...] 1. You will have follow-up appointments at [facility] as indicated in Future Appointment and Orders. [...] 11:00 AM Heather Colon PA [facility] If you have questions or concerns: Wednesday through Wednesday, 8 AM - 5 PM, please call Wenceslao Burnett MD's office at . If it is after 5 PM or on the weekend, please call and ask to speak with the Orthopedic resident on-call. * Attachments The following attachments cannot be sent through Care Everywhere. * INDWELLING URINARY CATHETER CARE: GENERAL INFO ([place]ENLANDIC) documented in this encounter Medications at Time [...] called and given to HAYLEY Barkley at [facility]. * Kaley Torres RN - 12/24/2017 11:57 AM EDT Office of Care Management/Catering And Events Manager Patient Name: Daphne Pickard : 1965 Patient has been offered a snf bed at [facility] for today. [facility] arranged for a 1:30 transport. Ambulance will need: Medicare ambulance form completed and signed (MD or Tile Layer RN/PARTS PERSON) Copy of patient demographics [place] Out of Hospital DNR/DNI order, if active No MD to MD report necessary Please call Nursing Report to , ask for technical solutions director. Info to accompany patient: Narcotic Prescriptions Copies of Medication Administration Records and IV sheets for past 10 days. Plan: Catering And Events Manager will be available to the patient and Tile Layer-RN and/or Social Workerfor further assistance. Patient will be discharged to: [facility] [address] [place] [address] KALEY TORRES RN, Catering And Events Manager * Sol Boudreaux MD - 12/24/2017 4:44 [...] Brisk capillary refill distally, fingers warm/well-perfused. RLE: Kremmling brace in place, locked in extension. Mepilex [...] board transfers and left posterior hip precautions. Kremmling beace locked in extension to RLE. Patient may use the RUE in the cast for help with transfers. DVT prophylaxis: Lovenox 30mg BID . Closure: Eureka out in 2 weeks (~01/03) Dressing: Mepilex [...] - Afebrile, VSS - Rehab referrals placed, [facility] going for auth Active Hospital [...] Brisk capillary refill distally, fingers warm/well-perfused. RLE: Kremmling brace in place, locked in extension. Mepilex [...] unit kitchen (yogurt, non- dairy milk, etc). [employer] Portal Consultant and pt discussed protein. Pt stated she is consuming protein in her daily nutrition. Pt requested to cancel Boost Plus shakes and fruits at this time she had been receiving for snacks. [employer] Portal Consultant canceled snacks per pt request. Nursing notes [...] Patient medically ready for rehab per provider. [facility] going for insurance authorization. Patient aware and agreable to plan. Will have to transport by ambulance because of injuries. PASSR signed. Packet completed. Sangeetha Page RN Case Manager, [facility] [phone] Pager #[phone] * Nir Bhatti 12/22/2017 5:55 AM EDT [...] Brisk capillary refill distally, fingers warm/well-perfused. RLE: Kremmling brace in place, locked in extension. Mepilex [...] board transfers and left posterior hip precautions. Kremmling beace locked in extension to RLE. Patient [...] attempt again tomorrow. Roberto Almodovar PT, DPT 4931 Inpatient Rehabilitation * Sabrina Aranda RN - 12/21/2017 3:20 PM EDT Based on discussions with the multi-disciplinary healthcare team, the patient would benefit from skilled level of care at discharge. ?? I have met with the patient to discuss discharge planning needs. I reviewed the [facility], Office of Care Management letter from the Client Support Manager pertaining to rehab referrals. I also reviewed a letter describing our affiliations within the [facility] and educated her abouther right [...] ?? The patient requested referrals to: 1. [facility] [address] [address] ?? [phone] ?? I mentioned the option of hospitals which offer Swing Beds. Patient declined to provide additional referral choices of any level. ?? Expected date of discharge: Not yet determined. Pt continues to have pain control issues. Note routed to Catering And Events Manager who will communicate referrals to facilities and provide any required information. Sabrina Aranda RN, BSN, Tile Layer Pager [phone] * Filippo Dickson MD - 12/21/2017 10:10 AM EDT Morning lab work now returned. Hgb 8.7 down from 10.9 pre-operatively for ORIF left acetabulum performed yesterday 12/20. Consistent with acute blood loss anemia following surgery. Will continue to follow. Remainder of CBC, BMP WNL. See progress note by Dr. Dobson for remainder of exam and assessment. Filippo Dickson MD Orthopaedic Surgery, PGY-1 Pager: [phone] * Kimani Dobson MD - 12/21/2017 5:58 [...] board transfers and left posterior hip precautions. Kremmling beace locked in extension to RLE. Patient may use the RUE in the cast for help with transfers. DVT prophylaxis: Lovenox 30mg BID . Closure: Eureka out in 2 weeks (~01/03) Dressing: Mepilex [...] mg bid. Closure: Resorbable sutures to RLE, zulyeka to LLE Dressing: Mepilex to RLE and [...] in RUE or BLE. [place] been[place]PO since [place] for [place] today. Active Hospital Problems Diagnosis [...] for OR this AM Activity: NWB BLE. Kremmling beace locked in extension to RLE. Okay [...] Brisk capillary refill distally, fingers warm/well-perfused. RLE: Kremmling brace in place, locked in extension. Mepilex [...] ORIF left acetabulum tomorrow. Activity: NWB BLE. Kremmling beace locked in extension to RLE. Okay [...] distally, fingers warm/well-perfused. RLE: Mepilex dressing c/d/i Kremmling brace in locked in extension in place. [...] after midnight - NBO placed -Last BM: PUBLIC SAFETY DIRECTOR ?? RENAL: - trend BMP daily till [...] [] Incidental Findings Form Completed Jason Shannon, CONTINUOUS PROCESS COFFEE ROASTER 12/16/2017 Trauma pager [phone] Acute Care Surgery Attending Addendum: I have [...] minimumof two midnights or is on the [facility] inpatient only procedure list (status C) due [...] 12/16/2017 No future appointments. * Jason Shannon, CONTINUOUS PROCESS COFFEE ROASTER - 12/15/2017 1:58 PM EDT TRAUMA & [...] is a 52 y.o. female presents to [facility] s/p fall. Description of events leading up to injury includes she was riding a horse when he bucked her off. She landed on her right arm and legbut did not hit her head. No LOC. Immediately after the fall she had significant pain in right knee. Her fiance was able to call EMS. She was taken to [facility] where she was noted to have multiple orthopedic injuries including a right radial and right tibial plateau fracture. Her right arm was placed in a CARMEN splint. She was transferred to [facility] for further care and was hemodynamically normal [...] DIAGNOSTIC performed by Kimani Rojas MD at [facility] ENDOSCOPY HOME MEDICATIONS: No prescriptions prior [...] lives with significant other Jignesh Louise in [place], [place]. In 2nd floor home. One step [...] as tolerated - NBO placed -Last BM: PUBLIC SAFETY DIRECTOR RENAL: - trend BMP daily till stable [...] Completed Jason Shannon APRN 12/15/2017 Trauma pager [phone] * Filippo Dickson MD - 12/15/2017 1:46 [...] Filippo Dickson MD Orthopaedic Surgery, PGY-1 Pager: [phone] * Katherin Beltrán DT - 12/15/2017 10:45 [...] per pt) and a vanilla Boost Plus. [employer] Enterprise Portal Consultant ordered said snack at time of visit. Pt stated she loves Oui yogurt. [employer] Enterprise Portal Consultant encouraged pt she can have family bring in favorite foods (yogurt) and place in unit refrigerator with name, room and date. Pt had room service menu at bedside. Writereducated pt on ordering procedure and timelines for hot foods. [employer] Enterprise Portal Consultant encouraged pt order 3 meals qd with a protein source. Informed pt of small portions are available should she request. Pt agreeable to dietary services open meal containers and cut up all foods daily. [employer] Enterprise Portal Consultant set up said request. Pt also agreeable to Boost Plus 2x/day at snack times with fresh fruit snacks added (green apple cut up and a banana). Sap Enterprise Portal Consultant set up. Patient had no further questions [...] distally, fingers warm/well-perfused. RLE: Mepilex dressing c/d/i Kremmling brace in locked in extension in place. [...] Trauma and Acute Care Surgery Trauma pager [phone] * Bharath Caruso RN - 12/14/2017 4:20 PM EDT Patient returned from surgery via bed. All vitals WNL. Patient remains alert to voice and complaining of pain in right arm. PRN pain medication given. Kremmling brace in place to right leg and [...] up as appropriate. Peter Bynum OT Pager: [phone] * Rocio Sherman RN - 12/14/2017 9:18 [...] Daphne Pickard Level of Activation: alert MR#: [id number] [ ]Scene Call or [ x]Hospital Transfer : [id number] CC/MECHANISM OF INJURY: 52 y.o. Female s/p fall HISTORY OF PRESENT ILLNESS: Daphne Pickard is a 52 y.o. female presents to [facility] s/p fall. Description of events leading up to injury includes she was riding a horse when he bucked her off. She landed on her right arm and legbut did not hit her head. No LOC. Immediately after the fall she had significant pain in right knee. Her fiance was able to call EMS. She was taken to [facility] where she was noted to have multiple orthopedic injuries including a right radial and right tibial plateau fracture. Her right arm was placed in a CARMEN splint. She was transferred to [facility] for further care and was hemodynamically normal [...] DIAGNOSTIC performed by Kimani Rojas MD at [facility] ENDOSCOPY ALLERGIES: Allergies Allergen Reactions ??? [...] Negative mcL Appearance UA Clear Clear Spec [place] UA >1.035 (H) 1.002 - 1.030 Color [...] DISPO: floor Padmaja Grady MD Trauma Surgery #[id number] 12/14/2017 ADDENDUM: I have independently seen and [...] Updated report given to HAYLEY Frazier, [address] [place]. Pending transpo. * Bee Cardozo RN - 12/14/2017 1:55 AM EDT Report called to HAYLEY Frazier, [address] [place]. Pending admit after ortho completes splinting. * Kimberly Lin MD - 12/14/2017 12:23 AM EDT Daphne Pickard is a 52 y.o. female who arrives via EMS as trauma consult from [facility] History obtained by: hospital records, EMS, patient [...] Pt educated on LB dressing technique w/ welfare eligibility interviewer supine. Pt is extremely motivated and will greatly benefit from ongoing therapeutic interventions to achieve pt's and therapy goals. Please refer to associated flowsheet data listed below for treatment session details. Staff Recommendations: ?? Mechanical lift ?? Encourage OOB activity and participation in all self care tasks Anticipated Discharge Disposition: inpatient rehabilitation facility, [facility] facility Pager: [phone] Peter Bynum OT 12/22/2017 Occupational Therapy Rehabilitation [...] fall;hip;weight bearing Precautions Comments NWB RLE in ibshnu brace locked in ext, TDWB LLE w/ [...] Mobility Assessment/Treatment Assistive Device (Bed Mobility) leg derrick builder;other (see comments) Akxzgl-ae-Mhv Foster (Bed Mobility) moderate assist (50% patient effort);2 person assist required Ypy-mj-Gswbmy Foster (Bed Mobility) moderate assist (50% patient effort);2 person assist required Impairments (Bed Mobility) pain;ROM (range of motion) decreased;balance impaired;strength decreased Comment (Bed Mobility) Pt performed be dmobility w/ increased time, pt long sitting EOB w/ chair support LE Transfer Assessment/Treatment Bed-Chair Foster (Transfers) moderate assist (50% patient effort);2 person assist required Impairments (Transfers) pain;ROM (range of motion) decreased;strength decreased Comment (Transfers) Pt performed backward scoot from bed>w/c,assist w/ kim pad and support forLE. Increased time and increased pain noted Bathing Assessment/Training Position (Bathing) sitting Foster Level (Bathing) moderate assist (50% patient effort) Comment (Bathing) Pt required washed trunk, pt required assist to sponge bath her back and LE Upper Body Dressing Assessment/Training Position (UB Dressing) sitting Foster Level (UB Dressing) set up required;supervision required [...] protect/position healing structures Wear Schedule (Orthosis) wear it applications developer Adjustment Comment (Orthosis) no adjustment Plan of [...] (TBD, W/C) Anticipated Discharge Disposition inpatient rehabilitation facility;[facility] facility * Plan of Care - Roberto [...] lift to commode/chair Anticipated Discharge Disposition: (S) [facility] facility Roberto Almodovar PT Pager: [phone] Inpatient Physical Therapy 12/22/17 1444 Rehab Evaluation [...] Mobility Assessment/Treatment Assistive Device (Bed Mobility) leg derrick builder;draw sheet (HOB elevated ) Pkqpla-fx-Ulr Foster (Bed Mobility) moderate assist (50% patient effort);2 person assist required;verbal cues required Impairments (Bed Mobility) ROM (range of motion) decreased;strength decreased;flexibility decreased;pain Comment (Bed Mobility) supine>long sitting; increased time; extra assist needed; long sitting atEOB; feet supported on a chair with pillows Scoot/Bridge Foster (Bed Mobility) moderate assist (50% patient effort);2 person assist required;verbal cues required Safety Issues (Bed Mobility) decreased use of arms for pushing/pulling;decreased use of legs for bridging/pushing Transfer Assessment/Treatment Bed-Chair Foster (Transfers) moderate assist (50% patient effort);2 person assist required Jrv-Liftq-Rxn Assistive Device (Transfers) (backwards/forwards) Maintain Weight Bearing [...] to sit/sit to supine Bed Mobility Goal, Foster Level minimum assist (75% patient effort) Bed Mobility Goal, Assistive Device leg derrick builder Bed Mobility Goal, Date Goal Reviewed 12/22/17 Bed Mobility Goal, Outcome Achieved goal ongoing Transfer Training Goal Transfer Training Goal, Date Established 12/15/17 Transfer Training Goal, Time to Achieve 30 days Transfer Training Goal, Activity Type pyn-zl-ashcq/rfgpj-rw-cfa Transfer Train Goal, Foster Level moderate assist (50% patient effort) Transfer [...] Needs at Discharge wheelchair Anticipated Discharge Disposition [facility] facility * Plan of Care - [place] [...] clear, yellow urine.RUE arm cast intact.+CSMT. RLE Kremmling brace intact, mepilex dressings dry and intact. [...] Joyce Parra - 12/20/2017 11:01 AM EDT [facility] Operative Note Patient Name: Daphne Pickard : [id number] MR#: [id number] Case Date: 12/20/2017 ?? Surgeon: Surgeon(s) and [...] which had been applied preoperatively in accordancewith [facility] policy. Anesthesia was induced while the patient [...] surgical timeout was performed in accordance with [facility] policy. Site of intended incision was drawn [...] Implant Name Type Inv. Item Serial No. Shipping And Receiving Lot No. LRB No. Used Action WIRE,K,THRDD GWRE,[id number]) - [id number] IMPLANTS WIRE,K,THRDD GWRE,[id number] ([id number]) [facility] Left 1 Implanted and Explanted SCREW,CRTX,STAP,2.7X32MM ([id number]) - [id number] IMPLANTS SCREW,CRTX,STAP,2.7X32MM ([id number]) [facility] Left 1 Implanted SCREW,CRTX,STAP,2.7X28MM ([id number]) - [id number] IMPLANTS SCREW,CRTX,STAP,2.7X28MM ([id number]) [facility] Left 1 Implanted and Explanted SCREW,CRTX,STAP,2.7X26MM ([id number]) - [id number] IMPLANTS SCREW,CRTX,STAP,2.7X26MM ([id number]) [facility] Left 1 Implanted PLATE,RECON.8H,3.5X94MM ([id number]) - [id number] IMPLANTS PLATE,RECON.8H,3.5X94MM ([id number]) [facility] Left 1 Implanted SCREW,CRTX,STAP,3.5X34MM ([id number]) - [id number] IMPLANTS SCREW,CRTX,STAP,3.5X34MM ([id number]) [facility] Left 3 Implanted PIN,KWIRE,TROC 1 ED,NS,[id number] ([id number]) - [id number] IMPLANTS PIN,KWIRE,TROC 1 ED,NS,[id number] ([id number]) [facility] Left 2 Implanted and Explanted SCREW,CRTX,STAP,3.5X75MM ([id number]) - [id number] IMPLANTS SCREW,CRTX,STAP,3.5X75MM ([id number]) [facility] Left 1 Implanted and Explanted SCREW,CRTX,STAP,3.5X38MM ([id number]) - [id number] IMPLANTS SCREW,CRTX,STAP,3.5X38MM ([id number]) [facility] Left 1 Implanted and Explanted SCREW,CRTX,STAP,3.5X36MM ([id number]) - [id number] IMPLANTS SCREW,CRTX,STAP,3.5X36MM ([id number]) [facility] Left 1 Implanted SCREW,CRTX,STAP,3.5X40MM ([id number]) - [id number] IMPLANTS SCREW,CRTX,STAP,3.5X40MM ([id number]) [facility] Left 1 Implanted SCREW,CRTX,STAP,2.7X28MM ([id number]) - [id number] IMPLANTS SCREW,CRTX,STAP,2.7X28MM ([id number]) [facility] Left 1 Implanted and Explanted SCREW,CRTX,STAP,3.5X28MM ([id number]) - [id number] IMPLANTS SCREW,CRTX,STAP,3.5X28MM ([id number]) [facility] Left 1 Implanted Infection Bundle used? N/A [...] Operative Note Patient Name: Daphne Pickard : [id number] MR#: [id number] Case Date: 12/20/2017 Surgeon: Surgeon(s) and Role: [...] cast intact, no n/t. RLE dressing c/d/i. Kremmling locked in extension. Elevated throughout shift. +dp [...] of bed Precautions Comments: Non-weight bearing BLE. Kremmling brace on RLE, locked in extension at [...] tasks Anticipated Discharge Disposition: inpatient rehabilitation facility, [facility] facility Pager: [phone] Peter Bynum, OT 12/17/2017 Occupational Therapy Rehabilitation Department 12/17/17 5959 Rehab Evaluation Document Type therapy note (daily [...] of bed Precautions Comments Non-weight bearing BLE. Kremmling brace on RLE, locked in extension at [...] Mobility Assessment/Treatment Assistive Device (Bed Mobility) leg derrick builder;draw sheet Lrdpyr-jq-Lnm Foster (Bed Mobility) minimum assist (75% patient effort);moderate assist (50% patient effort);verbal cues required Impairments (Bed Mobility) ROM (range of motion) decreased;strength decreased;pain Comment (Bed Mobility) Pt performed bed mobility w/ assist for RLE and us of drawsheet to get into position for backward scoot transfer. Transfer Assessment/Treatment Bed-Chair Foster (Transfers) minimum assist (75% patient effort);moderate assist (50% patienteffort);verbal cues required Bjs-Kwgjc-Edm Assistive Device (Transfers) (none) Impairments (Transfers) pain;ROM [...] Discharge (TBD) Anticipated Discharge Disposition inpatient rehabilitation facility;[facility] facility * Plan of Care - Roberto [...] chair for meals Anticipated Discharge Disposition: (S) [facility] facility Roberto Almodovar, PT Pager: [phone] Inpatient Physical Therapy 12/17/17 8122 Rehab Evaluation Document Type therapy note (daily [...] of bed Precautions Comments Non-weight bearing BLE. Kremmling brace on RLE, locked in extension at all times. Non-weight bearing RUE. can platform weight bear through RUE Treatment Number PT 2 Pain Scale/Rating Pain Assessment Scale Numbers (Numeric Rating Pain Scale) Pain Level 8 Mobility Assessment/Training Additional Documentation Transfer Assessment/Treatment (Group) Bed Mobility Assessment/Treatment Assistive Device (Bed Mobility) leg derrick builder;draw sheet Ehehqc-ea-Jhl Foster (Bed Mobility) minimum assist (75% patient effort);moderate assist (50% patient effort) Comment (Bed Mobility) moving around in bed to sit up on edge with back on the edge Scoot/Bridge Foster (Bed Mobility) minimum assist (75% patient effort);moderate assist (50% patient effort) Transfer Assessment/Treatment Bed-Chair Foster (Transfers) minimum assist (75% patient effort);moderate assist (50% patienteffort) Aly-Xrxnu-Etg Assistive Device (Transfers) (backwards/forwards) Comment (Transfers) backwards/forwards transfer on R side of bed back into recliner chair; use of leg derrick builder; vc's for sequencing and technique Orthotics/Prosthetics Additional [...] to sit/sit to supine Bed Mobility Goal, Foster Level minimum assist (75% patient effort) Bed Mobility Goal, Assistive Device leg derrick builder Bed Mobility Goal, Date Goal Reviewed 12/17/17 Bed Mobility Goal, Outcome Achieved goal ongoing Transfer Training Goal Transfer Training Goal, Date Established 12/15/17 Transfer Training Goal, Time to Achieve 30 days Transfer Training Goal, Activity Type mpy-rc-rxgpn/aykwz-xv-lua Transfer Train Goal, Foster Level moderate assist (50% patient effort) Transfer [...] Needs at Discharge wheelchair Anticipated Discharge Disposition [facility] facility * Plan of Care - Arabella [...] controlled with PRN oxycodone. Ramirez draining CYU. Kremmling brace to RLE, hard cast to RUE. [...] chair when able Anticipated Discharge Disposition: (S) [facility] facility Roberto Almodovar, PT Pager: [phone] Inpatient Physical Therapy 2017 PT Evaluation Code [...] with her heidi in their home in [place], [place]. 18 steps to enter the home. Has 3 horses at home, 4 labs and 2 cats Functional Level Prior Prior Functional Level Comment Reports she has a sister that is a PT. may be able to obtain DME from family members. 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 Vital Signs SpO2 97 [...] Mobility Assessment/Treatment Assistive Device (Bed Mobility) leg derrick builder;draw sheet;bed rails (elevated HOB) Dtukzb-cx-Zib Foster (Bed Mobility) minimum assist (75% patient effort);2 person assist required;moderate assist (50% patient effort) Act-fq-Aoytbz Foster (Bed Mobility) maximum assist (25% patient effort);2 person assist required;verbal cues required Impairments (Bed Mobility) flexibility decreased;pain;ROM (range of motion) decreased;strength decreased Comment (Bed Mobility) increased time 2/2 pain; able to move LLE not not RLE; vc's for technique; use of draw sheet Scoot/Bridge Foster (Bed Mobility) minimum assist (75% patient effort) [...] protect/position healing structures Wear Schedule (Orthosis) wear it applications developer Plan of Care Review Plan Of Care Reviewed With patient Physical Therapy Goal Types Physical Therapy Goal Types Bed Mobility Goal (Group);Transfer Training Goal (Group);Physical Therapy Goal (Group) Bed Mobility Goal Bed Mobility Goal, Date Established 12/15/17 Bed Mobility Goal, Time to Achieve 30 days Bed Mobility Goal, Activity Type roll left/roll right;supine to sit/sit to supine Bed Mobility Goal, Foster Level minimum assist (75% patient effort) Bed Mobility Goal, Assistive Device leg derrick builder Transfer Training Goal Transfer Training Goal, Date Established 12/15/17 Transfer Training Goal, Time to Achieve 30 days Transfer Training Goal, Activity Type vzx-er-tolaf/wdcyf-bs-iqg Transfer Train Goal, Foster Level moderate assist (50% patient effort) Transfer [...] Needs at Discharge wheelchair Anticipated Discharge Disposition [facility] facility General Interventions Additional Documentation Planned Therapy [...] tasks Anticipated Discharge Disposition: inpatient rehabilitation facility, [facility] facility Pager: [phone] Peter Bynum OT 12/15/2017 Occupational Therapy Rehabilitation [...] all times) Precautions Comments Non-weight bearing BLE. Kremmling brace on RLE, locked in extension at [...] (Bed Mobility) bed rails;draw sheet (HOB raised) Ikmdsc-xz-Sje Foster (Bed Mobility) minimum assist (75% patient effort);2 person assist required;verbal cues required;moderate assist (50% patient effort) Oad-sz-Crifrc Foster (Bed Mobility) maximum assist (25% patient effort);2 [...] Pt issued and educated on use of welfare eligibility interviewer. Additional Documentation Bathing Assessment/Training (Group);Upper Body Dressing Assessment/Training (Group);Grooming Assessment/Training (Group);IADL Assessment/Training: Comment (Row) Bathing Assessment/Training Assistive Devices (Bathing) (bath wipes) Position (Bathing) sitting Foster Level (Bathing) moderate assist (50% patient effort) Impairments (Bathing) pain;ROM (range of motion) decreased;strength decreased;balance impaired Comment (Bathing) Pt performed sponge bath to her anterior thorax/abdomen. Pt assisted w/ her back,LE, and tina-care. Pt assisted donning shampoo cap and w/ application. Upper Body Dressing Assessment/Training Position (UB Dressing) sitting Foster Level (UB Dressing) minimum assist (75% patient [...] (TBD) Anticipated Discharge Disposition inpatient rehabilitation facility, [facility] facility General Therapy Interventions Additional Documentation Planned [...] to advise, support. One sister works at [employer]. Her mother lives in the local area also. Behavioral Health History: no Substance Use/Abuse: none Other Pertinent/Service Specific Information: Patient will have FMLA and STD paperwork to have completed. Heidi bringing that when he comes to visit today. Health/Prescription Coverage: Primary Insurance: CIGNA Secondary Insurance: N/A Prescription Coverage: CIGNA Preferred Pharmacy: none Other: none Primary Care Provider: Keiko Reddy MD [phone] Patient/Caregiver Goals of Treatment: Home when medically able. Potential Needs for Transition of Care: Rehab/SNF: patient anticipates she will need rehab/snf. Her preference would be [facility]. Home Health: yes at [...] transition of care planning. SHERI UPTON Pager: [phone] * Plan of Care - Jamar Wolf [...] OUTCOME EVALUATION: Goal: Individualization & Mutuality 12/14/17 4701 Mutuality/Individual Preferences What Anxieties, Fears or Concerns [...] Romero MD - 12/14/2017 4:06 PM EDT [facility] Operative Note Patient Name: Daphne Pickard : [id number] MR#: [id number] Case Date: 12/14/2017 Surgeon: Surgeon(s) and Role: [...] is a 52-year-old female who presented to [facility] with signs symptoms and radiographic findings [...] in the preoperative holding area where green absentee-shawnee was placed on the correct operative right [...] incision. A timeout was held according to [facility] protocol confirming thecorrect side site's and procedures. [...] patient's leg was then placed into a Kremmling brace locked in extension. Attention was then [...] Implant Name Type Inv. Item Serial No. Shipping And Receiving Lot No. LRB No. Used Action PLATE,VA-LCP,TIB,4H,RT,87MM ([id number]) - [id number] IMPLANTS PLATE,VA- LCP,TIB,4H,RT,87MM ([id number]) [employer] - DEPUY SYNT Right 1 Implanted SCREW,CRTX,STAP,3.5X40MM ([id number]) - [id number] IMPLANTS SCREW,CRTX,STAP,3.5X40MM ([id number]) [employer] - DEPUY SYNT Right 1 Implanted SCREW,OMER,ANG,LCK,3.5X65MM ([id number]) - [id number] IMPLANTS SCREW,OMER,ANG,LCK,3.5X65MM ([id number]) [employer], [employer]. - DEPUY SYNT Right 3 Implanted SCREW,OMER,ANG,LCK,3.5X60MM ([id number]) - [id number] IMPLANTS SCREW,OMER,ANG,LCK,3.5X60MM ([id number]) [employer] - DEPUY SYNT Right 1 Implanted SCREW,OMER,ANG,LCK,3.5X46MM ([id number]) - [id number] IMPLANTS SCREW,OMER,ANG,LCK,3.5X46MM ([id number]) [employer] - DEPUY SYNT Right 1 Implanted SCREW,OMER,ANG,LCK,3.5X50MM ([id number]) - [id number] IMPLANTS SCREW,OMER,ANG,LCK,3.5X50MM ([id number]) [employer] - DEPUY SYNT Right 1 Implanted SCREW,OMER,ANG,LCK,3.5X56MM ([id number]) - [id number] IMPLANTS SCREW,OMER,ANG,LCK,3.5X56MM ([id number]) [employer] - DEPUY SYNT Right 1 Implanted SCREW,OMER,ANG,LCK,3.5X32MM ([id number]) - [id number] IMPLANTS SCREW,OMER,ANG,LCK,3.5X32MM ([id number]) [employer] - DEPUY SYNT Right 1 Implanted SCREW,CNCL,STAP,P-T,3.5X70MM ([id number]) - [id number] IMPLANTS SCREW,CNCL,STAP,P- T,3.5X70MM ([id number])[employer] - DEPUY SYNT Right 1 Implanted BONE,CRUSHED,CANCELLOUS,30CC ([id number]) (AUTOREQ) - [id number] IMPLANTS BONE,CRUSHED,CANCELLOUS,30CC([id number]) (AUTOREQ) [facility] Right 1 Implanted PLATE,VLRDSTL,LCP,6H,RT,2.4MM ([id number]) - [id number] IMPLANTS PLATE,VLRDSTL,LCP,6H,RT,2.4MM ([id number]) [employer] - DEPUY SYNT Right 1 Implanted PLATE,RDCTN,WIRTHRD TIP,1.25MM ([id number]) - [id number] IMPLANTS PLATE,RDCTN,WIRTHRD TIP,1.25MM ([id number]) [employer] - DEPUY SYNT Right 3 Implanted and Explanted SCREW,VA,LCK,STAR,2.4X20MM ([id number]) - [id number] IMPLANTS SCREW,VA,LCK,STAR,2.4X20MM ([id number]) [employer] - DEPUY SYNT Right 3 Implanted SCREW,VA,LCK,STAR,2.4X14MM ([id number]) - [id number] IMPLANTS SCREW,VA,LCK,STAR,2.4X14MM ([id number]) [employer] - DEPUY SYNT Right 1 Implanted SCREW,VA,LCK,STAR,2.4X18MM ([id number]) - [id number] IMPLANTS SCREW,VA,LCK,STAR,2.4X18MM ([id number]) [employer] - DEPUY SYNT Right 1 Implanted SCREW,CRTX,STAP,STAR,2.7X12MM ([id number]) - [id number] IMPLANTS SCREW,CRTX,STAP,STAR,2.7X12MM ([id number]) [employer] - DEPUY SYNT Right 3 Implanted Infection Bundle used? No Attestation: Case Date: 12/14/2017 I was present and I participated during the entire procedure (does not need to include opening and closing). Reinaldo Romero MD 12/14/2017 * Brief Op Note - Reinaldo Romero MD - 12/14/2017 1:38 PM EDT Brief Operative Note Patient Name: Daphne Pickard : [id number] MR#: [id number] Case Date: 12/14/2017 Surgeon: Surgeon(s) and Role: [...] following the injury She was taken to [facility] where imaging revealed right distal radius fracture, right tibial plateau fracture and left posterior wall acetabular fracture. She was then transferred to [facility] for further management. Patient denies numbness, tingling, weakness, head strike, LOC, or other injuries. Past Medical History: Patient Active Problem List Diagnosis Code ??? Trauma T14.90XA Past Surgical History: Past Surgical History: Procedure Laterality Date ??? PRO COLONOSCOPY, DIAGNOSTIC N/A 06/25/2017 COLONOSCOPY, DIAGNOSTIC performed by Kimani Rojas MD at [facility] ENDOSCOPY Allergies Allergen Reactions ??? Gabapentin [...] distributions Motor intact shoulder abduction, elbow flexion/extension, securities counselor, EPL, AIN, IO Brisk capillary refill distally [...] (5/5) shoulder abduction, elbow flexion/extension, wrist flexion/extension, securities counselor, EPL,AIN, IO Brisk capillary refill distally 2+ [...] the patient elected to proceed. Per the [facility] Bed Side Check List: the patient was [...] and treatment. Please call the orthopaedic resident orthotic practitioner with any questions or concerns. ?? Nir Bhatti MD Orthopaedic Surgery Pager: [phone] documented in this encounter Plan of Treatment Upcoming Encounters Date Type Department Care Team (Late st Contact Info) Description 01/31/2024 9:15 AM EDT Appointment Hematology [place] [address] 01/31/2024 10:20 AM EDT Office Visit [place] [address] Rebecca Small MD [facility] DR [place] [address] 08/01/2024 11:30 AM EDT Office Visit Dermatology at [facility] [address] [place] [address] Phan Engle MD [facility] DR JESS HERNAN[place] [address] Scheduled Orders Name Type Priority Associated Diagnoses [...] IMPLANTABLE DEVICES SCAN 12/14/2017 12:00 AM EDT COURTESY VAN DRIVER SCAN 12/14/2017 12:00 AM EDT HEMOGRAM STAT [...] EDT Unchanged alignment of the uncomplicated cortical odirv-qot-sqkyu fixation of the tibial plateau fracture without [...] the depressed lateral tibial plateau fracture with yazidism of near-anatomic alignment. No radiographic evidence of [...] the depressed lateral tibial plateau fracture with yazidism ofnear-anatomic alignment. No radiographic evidence of hardware complication. The fracturelines remain visible on the AP view. Interval resolution of the postoperative soft tissue air. IMPRESSION Unchanged alignment of the uncomplicated cortical lbviq-kws-pfpev fixationof the tibial plateau fracture without radiographic [...] 9:56 AM EDT) Neutrophil % 57.1 % [facility] Neutrophil Absolute 3.99 1.70 - 6.10 x10(3)/[facility] Lymph % 27.7 % [facility] Lymphocytes Abs 1.9 0.9 - 3.2 x10(3)/[facility] Monocyte % 13.5 % [facility] Monocyte Abs 0.9 0.3 - 0.9 x10(3)/[facility] Eos % 0.9 % [facility] Eosinophils Abs 0.1 0.0 - 0.4 x10(3)/[facility] Basophil % 0.4 % [facility] Baso Absolute 0.0 0.0 - 0.1 x10(3)/[facility] Immature Gran % 0.40 % [facility] Comment: Immature granulocytes(IG's)percentage and absolute count will include metamyelocytes, myelocytes, and promyelocytes. Blood smears from CBCs yielding IG's will be scanned manually for concordance. If this scan disagrees with the automated IG or if promyelocytes are noted, a manual differential will be performed. Immature Gran Absolute 0.03 0.00 - 0.04 x10(3)/[facility] Blood specimen (specimen) 12/22/2017 9:56 AM EDT 12/22/2017 10:10 AM EDT Narrative Resulting Agency Comment Spec In Lab Vani Hook APRN HEMATOLOGY ORDERABL ES [facility] [place] [address] * (ABNORMAL) Hemogram (12/22/2017 9:56 AM EDT) White Blood Cell 7.0 4.0 - 9.5 x10(3)/ L [facility] Red Blood Cell 2.92(L) 4.00 - 5.21 x10(6)/ L [facility] Hemoglobin 9.1(L) 11.7 - 15.5 gm/dL [facility] Hematocrit 27.1(L) 35.7 - 45.8 % [facility] Mean Cell Volume 92.8 82.6 - 94.4 fL [facility] Mean Cell Hemoglobin 31.2 27.1 - 32.0 pg [facility] Mean Cell Hemoglobin Concentration 33.6 31.7 - 35.0 gm/dL [facility] Platelet 309 145 - 357 x10(3)/mc L [facility] RDW Standard Deviation 38.9 37.0 - 46.0 [facility] RDW coefficient of variation 11.5 11.5 - 14.1 % [facility] Mean Platelet Volume 8.4 7.6 - 12.9 [facility] NRBC% auto 0.0 % [facility] NRBC Absolute 0.000 0.000 - 0.000 x10(3)/mc L [facility] Blood specimen (specimen) 12/22/2017 9:56 AM EDT 12/22/2017 10:10 AM EDT Narrative Resulting Agency Comment Spec In Lab Vani Hook APRN HEMATOLOGY ORDERABL ES [facility] [place] [address] * (ABNORMAL) Basic Metabolic Panel (non-fasting) (12/22/2017 9:56 AM EDT) Glucose 162 65 - 199 mg/dL [facility] Comment:Diabetes: >=200 mg/d L plus symptoms Blood Urea Nitrogen 11 8 - 18 mg/dL [facility] Creatinine 0.73 0.70 - 1.20 mg/dL [facility] Sodium 135 135 - 145 mmol/L [facility] Potassium 4.0 3.5 - 5.0 mmol/L [facility] Comment: Please note: ??Patients with WBC >100,000 may have falsely elevated Potassium levels. ??For accurate Potassium quantification in these patients send serum separator tube (gold top) for subsequent determinations. ??Contact the Clinical Chemistry Laboratory if there are any questions. Chloride 97(L) 98 - 107 mmol/L [facility] Carbon Dioxide 25 22 - 31 mmol/L [facility] Anion Gap 13 5 - 15 mmol/L [facility] Calcium 8.7 8.5 - 10.5 mg/dL [facility] Est Glomerular Filtration Rate 95 >=60 mL/min/1. 73 m?? [facility] Comment: The eGFR was calculated using the CKD-EPI equation. As with all creatinine based estimates of kidney function, eGFR values calculated with the CKD-EPI equation are not accurate in patients with acute kidney failure, extremes of body mass or the acutely ill. http://[facility]/[facility] eGFR 110 >=60 mL/min/1. 73 m?? [facility] Comment: The eGFR was calculated using the CKD-EPI equation. As with all creatinine based estimates of kidney function, eGFR values calculated with the CKD-EPI equation are not accurate in patients with acute kidney failure, extremes of body mass or the acutely ill. [email or web address]/[facility] Blood specimen (specimen) 12/22/2017 9:56 AM EDT 12/22/2017 10:10 AM EDT Narrative Resulting Agency Comment Spec In Lab Vani Hook APRN CHEMISTRY ORDERABLE S [facility] [place] [phone] * (ABNORMAL) Basic Metabolic Panel (non-fasting) (12/21/2017 7:04 AM EDT) Glucose 90 65 - 199 mg/dL [facility] Comment:Diabetes: >=200 mg/d L plus symptoms Blood Urea Nitrogen 15 8 - 18 mg/dL [facility] Creatinine 0.73 0.70 - 1.20 mg/dL [facility] Sodium 138 135 - 145 mmol/L [facility] Potassium 3.9 3.5 - 5.0 mmol/L [facility] Comment: Please note: ??Patients with WBC >100,000 may have falsely elevated Potassium levels. ??For accurate Potassium quantification in these patients send serum separator tube (gold top) for subsequent determinations. ??Contact the Clinical Chemistry Laboratory if there are any questions. Chloride 100 98 - 107 mmol/L [facility] Carbon Dioxide 25 22 - 31 mmol/L [facility] Anion Gap 13 5 - 15 mmol/L [facility] Calcium 8.4(L) 8.5 - 10.5 mg/dL [facility] Est Glomerular Filtration Rate 95 >=60 mL/min/1. 73 m?? [facility] Comment: The eGFR was calculated using the CKD-EPI equation. As with all creatinine based estimates of kidney function, eGFR values calculated with the CKD-EPI equation are not accurate in patients with acute kidney failure, extremes of body mass or the acutely ill. http://[employer]/[facility]nk[facility] eGFR 110 >=60 mL/min/1. 73 m?? [facility] Comment: The eGFR was calculated using the CKD-EPI equation. As with all creatinine based estimates of kidney function, eGFR values calculated with the CKD-EPI equation are not accurate in patients with acute kidney failure, extremes of body mass or the acutely ill. http://[facility]/[facility] Blood specimen (specimen) 12/21/2017 7:04 AM EDT 12/21/2017 7:25 AM EDT Narrative Resulting Agency Comment Spec In Lab Reinaldo Romero MD CHEMISTRY ORDERABLES [facility] [place] [address] * (ABNORMAL) Hemogram (12/21/2017 7:04 AM EDT) White Blood Cell 6.8 4.0 - 9.5 x10(3)/mc L [facility] Red Blood Cell 2.75(L) 4.00 - 5.21 x10(6)/mc L [facility] Hemoglobin 8.7(L) 11.7 - 15.5 gm/dL [facility] Hematocrit 25.6(L) 35.7 - 45.8 % [facility] Mean Cell Volume 93.1 82.6 - 94.4 fL [facility] Mean Cell Hemoglobin 31.6 27.1 - 32.0 pg [facility] Mean Cell Hemoglobin Concentration 34.0 31.7 - 35.0 gm/dL [facility] Platelet 253 145 - 357 x10(3)/mc L [facility] RDW Standard Deviation 39.4 37.0 - 46.0 fL [facility] RDW coefficient of variation 11.7 11.5 - 14.1 % [facility] Mean Platelet Volume 8.7 7.6 - 12.9 fL [facility] NRBC% auto 0.0 % [facility] NRBC Absolute 0.000 0.000 - 0.000 x10(3)/mc L [facility] Blood specimen (specimen) 12/21/2017 7:04 AM EDT 12/21/2017 7:25 AM EDT Narrative Resulting Agency Comment Spec In Lab Reinaldo Romero MD HEMATOLOGY ORDERABLE S Performing Organization Address City/State/[facility] Co de Phone Number [facility] [place] [phone] * XR Pelvis Judet or In Out [...] a radiologist interpretation. ?? Tete Talamantes MD G FLUORO ORDERABLE S [place], [place] * ABORH Recheck Status (12/20/2017 8:08 AM EDT) ABORH Type Recheck Completed [facility] Blood specimen (specimen) 12/20/2017 8:08 AM EDT 12/20/2017 8:39 AM EDT Narrative Resulting Agency Comment Spec In Lab Joyce Parra MD BLOOD BANK LAB ORDER NITZA [facility] [place] [address] * Antibody screen (12/20/2017 8:08 AM EDT) Pathologist [facility] Ab Screen Interp Negative [facility] Expires at [id number] on: 12/23/2017 [facility] Blood specimen (specimen) 12/20/2017 8:08 AM EDT 12/20/2017 8:39 AM EDT Narrative Resulting Agency Comment Spec In Lab Joyce Parra MD BLOOD BANK LAB ORDER NITZA Performing Organization Address City/[facility]/ZIP Co de Phone Number [facility] [place] [address] * ABO/Rh Typing (12/20/2017 8:08 AM EDT) Pathologist [facility] ABORH Type A Neg [facility] Blood specimen (specimen) 12/20/2017 8:08 AM EDT 12/20/2017 8:39 AM EDT Narrative Resulting Agency Comment Spec In Lab Joyce Parra MD BLOOD BANK LAB ORDER NITZA Performing Organization Address [facility] Co de Phone Number [facility] [place] [address] * Differential, Automated (12/17/2017 6:55 AM EDT) [facility] Neutrophil % 60.2 % [facility] Neutrophil Absolute 4.23 1.70 - 6.10 x10(3)/[facility] Lymph % 30.2 % [facility] Lymphocytes Abs 2.1 0.9 - 3.2 x10(3)/[facility] Monocyte % 8.0 % [facility] Monocyte Abs 0.6 0.3 - 0.9 x10(3)/[facility] Eos % 1.1 % [facility] Eosinophils Abs 0.1 0.0 - 0.4 x10(3)/[facility] Basophil % 0.4 % [facility] [facility] Baso Absolute 0.0 0.0 - 0.1 x10(3)/[facility] LABORATORY Immature Gran % 0.10 % [facility] Comment: Immature granulocytes(IG's)percentage and absolute count will include metamyelocytes, myelocytes, and promyelocytes. Blood smears from CBCs yielding IG's will be scanned manually for concordance. If this scan disagrees with the automated IG or if promyelocytes are noted, a manual differential will be performed. Immature Gran Absolute 0.01 0.00 - 0.04 x10(3)/mcL [facility] Blood specimen (specimen) 12/17/2017 6:55 AM EDT 12/17/2017 7:04 AM EDT Narrative Resulting Agency Comment Spec In Lab Rajinder Gracia MD HEMATOLOGY OR DERABLES [facility] [place] [address] * (ABNORMAL) Hemogram (12/17/2017 6:55 AM EDT) White Blood Cell 7.0 4.0 - 9.5 x10(3)/mc L [facility] Red Blood Cell 3.36(L) 4.00 - 5.21 x10(6)/mc L [facility] Hemoglobin 10.9(L) 11.7 - 15.5 gm/dL [facility] Hematocrit 31.1(L) 35.7 - 45.8 % [facility] Mean Cell Volume 92.6 82.6 - 94.4 fL [facility] Mean Cell Hemoglobin 32.4(H) 27.1 - 32.0 pg [facility] Mean Cell Hemoglobin Concentration 35.0 31.7 - 35.0 gm/dL [facility] Platelet 195 145 - 357 x10(3)/mc L [facility] RDW Standard Deviation 38.9 37.0 - 46.0 fL [facility] RDW coefficient of variation 11.5 11.5 - 14.1 % [facility] Mean Platelet Volume 9.0 7.6 - 12.9 fL [facility] NRBC% auto 0.0 % [facility] NRBC Absolute 0.000 0.000 - 0.000 x10(3)/mc L [facility] Blood specimen (specimen) 12/17/2017 6:55 AM EDT 12/17/2017 7:04 AM EDT Narrative Resulting Agency Comment Spec In Lab Rajinder Gracia MD HEMATOLOGY OR DERABLES [facility] [place] [address] * (ABNORMAL) Basic Metabolic Panel (non-fasting) (12/17/2017 6:55 AM EDT) Glucose 91 65 - 199 mg/dL [facility] Comment:Diabetes: >=200 mg/d L plus symptoms Blood Urea Nitrogen 11 8 - 18 mg/dL [facility] Creatinine 0.63(L) 0.70 - 1.20 mg/dL [facility] Sodium 142 135 - 145 mmol/L [facility] Potassium 3.9 3.5 - 5.0 mmol/L [facility] Comment: Please note: ??Patients with WBC >100,000 may have falsely elevated Potassium levels. ??For accurate Potassium quantification in these patients send serum separator tube (gold top) for subsequent determinations. ??Contact the Clinical Chemistry Laboratory if there are any questions. Chloride 102 98 - 107 mmol/L [facility] Carbon Dioxide 26 22 - 31 mmol/L [facility] Anion Gap 14 5 - 15 mmol/L [facility] Calcium 9.0 8.5 - 10.5 mg/dL [facility] Est Glomerular Filtration Rate 103 >=60 mL/min/1. 73 m?? [facility] Comment: The eGFR was calculated using the CKD-EPI equation. As with all creatinine based estimates of kidney function, eGFR values calculated with the CKD-EPI equation are not accurate in patients with acute kidney failure, extremes of body mass or the acutely ill. [email or web address] [email or web address] eGFR 120 >=60 mL/min/1. 73 m?? [facility] Comment: The eGFR was calculated using the CKD-EPI equation. As with all creatinine based estimates of kidney function, eGFR values calculated with the CKD-EPI equation are not accurate in patients with acute kidney failure, extremes of body mass or the acutely ill. [email or web address] [email or web address] Blood specimen (specimen) 12/17/2017 6:55 AM EDT 12/17/2017 7:04 AM EDT Narrative Resulting Agency Comment Spec In Lab Russell Lewis MD CHEMISTRY ORDERABLE S [facility] [place] [address] * (ABNORMAL) Differential, Automated (12/15/2017 8:22 AM EDT) Neutrophil % 67.1 % [facility] Neutrophil Absolute 5.44 1.70 - 6.10 x10(3)/mc L [facility] Lymph % 20.4 % [facility] Lymphocytes Abs 1.7 0.9 - 3.2 x10(3)/mc L [facility] Monocyte % 12.2 % [facility] Monocyte Abs 1.0(H) 0.3 - 0.9 x10(3)/mc L [facility] Eos % 0.0 % [facility] Eosinophils Abs 0.0 0.0 - 0.4 x10(3)/mc L [facility] Basophil % 0.1 % [facility] Baso Absolute 0.0 0.0 - 0.1 x10(3)/mc L [facility] Immature Gran % 0.20 % [facility] Comment: Immature granulocytes(IG's)percentage and absolute count will include metamyelocytes, myelocytes, and promyelocytes. Blood smears from CBCs yielding IG's will be scanned manually for concordance. If this scan disagrees with the automated IG or if promyelocytes are noted, a manual differential will be performed. Immature Gran Absolute 0.02 0.00 - 0.04 x10(3)/ L [facility] Blood specimen (specimen) 12/15/2017 8:22 AM EDT 12/15/2017 8:32 AM EDT Narrative Resulting Agency Comment Spec In Lab Elver Huddleston MD HEMATOLOGY ORDERABLE S [facility] [place] [address] * (ABNORMAL) Hemogram (12/15/2017 8:22 AM EDT) White Blood Cell 8.1 4.0 - 9.5 x10(3)/[facility] LABORATORY Red Blood Cell 3.21(L) 4.00 - 5.21 x10(6)/[facility] LABORATORY Hemoglobin 10.5(L) 11.7 - 15.5 gm/dL [facility] Hematocrit 29.6(L) 35.7 - 45.8 % [facility] Mean Cell Volume 92.2 82.6 - 94.4 [facility] LABORATORY Mean Cell Hemoglobin 32.7(H) 27.1 - 32.0 pg [facility] Mean Cell Hemoglobin Concentration 35.5(H) 31.7 - 35.0 gm/dL [facility] Platelet 145 145 - 357 x10(3)/[facility] LABORATORY RDW Standard Deviation 39.6 37.0 - 46.0 [facility] LABORATORY RDW coefficient of variation 11.6 11.5 - 14.1 % [facility] Mean Platelet Volume 8.7 7.6 - 12.9 [facility] LABORATORY NRBC% auto 0.0 % [facility] NRBC Absolute 0.000 0.000 - 0.000 x10(3)/[facility] LABORATORY Blood specimen (specimen) 12/15/2017 8:22 AM EDT 12/15/2017 8:32 AM EDT Narrative Resulting Agency Comment Spec In Lab Elver Huddleston MD HEMATOLOGY ORDERABLE S [facility] [place] [address] * Magnesium (12/15/2017 8:22 AM EDT) Magnesium 0.85 0.69 - 1.07 mmol/L [facility] Blood specimen (specimen) 12/15/2017 8:22 AM EDT 12/15/2017 8:33 AM EDT Narrative Resulting Agency Comment Spec In Lab Priya Whitaker APRN CHEMISTRY ORDERABLES Performing Organization Address City/[facility] Co de Phone Number [facility] [place] [address] * (ABNORMAL) Basic Metabolic Panel (non-fasting) (12/15/2017 8:22 AM EDT) Glucose 102 65 - 199 mg/dL [facility] Comment:Diabetes: >=200 mg/d L plus symptoms Blood Urea Nitrogen 9 8 - 18 mg/dL [facility] Creatinine 0.83 0.70 - 1.20 mg/dL [facility] Sodium 143 135 - 145 mmol/L [facility] Potassium 3.8 3.5 - 5.0 mmol/L [facility] Comment: Please note: ??Patients with WBC >100,000 may have falsely elevated Potassium levels. ??For accurate Potassium quantification in these patients send serum separator tube (gold top) for subsequent determinations. ??Contact the Clinical Chemistry Laboratory if there are any questions. Chloride 103 98 - 107 mmol/L [facility] Carbon Dioxide 25 22 - 31 mmol/L [facility] Anion Gap 15 5 - 15 mmol/L [facility] Calcium 8.4(L) 8.5 - 10.5 mg/dL [facility] Est Glomerular Filtration Rate 81 >=60 mL/min/1. 73 m?? [facility] Comment: The eGFR was calculated using the CKD-EPI equation. As with all creatinine based estimates of kidney function, eGFR values calculated with the CKD-EPI equation are not accurate in patients with acute kidney failure, extremes of body mass or the acutely ill. http://[email or web address] Solutionsnkdep http://Ecowell/[employer] Solutionsnkf eGFR 94 >=60 mL/min/1. 73 m?? [facility] Comment: The eGFR was calculated using the CKD-EPI equation. As with all creatinine based estimates of kidney function, eGFR values calculated with the CKD-EPI equation are not accurate in patients with acute kidney failure, extremes of body mass or the acutely ill. http://Ec[employer]nkdep [email or web address]/[facility] Blood specimen (specimen) 12/15/2017 8:22 AM EDT 12/15/2017 8:32 AM EDT Narrative Resulting Agency Comment Spec In Lab Russell Lewis MD CHEMISTRY ORDERABLE S Performing Organization Address City/State/[facility] Co de Phone Number [facility] [place] [address] * XR Pelvis Judet or In Out [...] IMG FLUORO ORDERABLE S Performing Organization Address [facility] de Phone Number [place], [place] * XR Fluoro No Rad <1Hr - OR Use (12/14/2017 12:20 PM EDT) Narrative RAD - 12/14/2017 1:12 PM EDT This order does not need a radiologist interpretation. ?? Reinaldo Romero MD G FLUORO ORDERABLE S Performing Organization Address [facility] de Phone Number [place], [place] * XR Fluoro No Rad <1Hr - OR Use (12/14/2017 11:39 AM EDT) Narrative [facility] - 12/14/2017 11:39 AM EDT This order does not need a radiologist interpretation. ?? Reinaldo Romero MD G FLUORO ORDERABLE S Performing Organization Address [facility] de Phone Number [place], [place] * CT Knee wo Contrast Right [...] OR Use (12/14/2017 3:32 AM EDT) Narrative [facility] - 12/14/2017 3:32 AM EDT This order does not need a radiologist interpretation. ?? Russell SNEED FLUORO ORDERABL ES [facility] [place], [place] * XR Forearm Right (Generic) (12/14/2017 3:21 [...] No other fracture identified. Russell Lewis MD [facility] DX ORDERABLES * XR Shoulder Right (Generic) [...] fracture or dislocation identified. Russell Lewis MD [facility] DX ORDERABLES * XR Wrist 2 views [...] 12:30 AM EDT) ABORH Type Recheck Completed [facility] Blood specimen (specimen) 12/14/2017 12:30 AM EDT 12/14/2017 12:30 AM EDT Narrative Resulting Agency Comment Spec In Lab Russell Lewis MD BLOOD BANK LAB [facility] Organization Address City/State/ZIP Co de Phone Number [facility] [place] [address] * Antibody screen (12/14/2017 12:30 AM EDT) Ab Screen Interp Negative [facility] Expires at [id number] on: 12/17/2017 [facility] Blood specimen (specimen) 12/14/2017 12:30 AM EDT 12/14/2017 12:30 AM EDT Narrative Resulting Agency Comment Spec In Lab Russell Lewis MD BLOOD BANK LAB RAYMOND TINSLEY Performing Organization Address [facility]/ZIP Co de Phone Number [facility] [place] [address] * ABO/Rh Typing (12/14/2017 12:30 AM EDT) ABORH Type A Neg [facility] Blood specimen (specimen) 12/14/2017 12:30 AM EDT 12/14/2017 12:30 AM EDT Narrative Resulting Agency Comment Spec In Lab Russell Lewis MD BLOOD BANK LAB [facility] TINSLEY Performing Organization Address [facility] Co de Phone Number [facility] [place] [address] * L-Lactate2 Whole Blood (12/14/2017 12:15 AM EDT) [facility] Lactate WB 1.7 0.5 - 2.2 mmol/L [facility] Blood specimen (specimen) 12/14/2017 12:15 AM EDT 12/14/2017 12:15 AM EDT Russell Lewis MD CHEMISTRY ORDERABLE S Performing Organization Address [facility]/ZIP Co de Phone Number [facility] [place] [address] * SCAN DOC: IMPLANTABLE DEVICES (12/14/2017 12:00 AM EDT) Narrative 12/14/2017 12:00 AM EDT Ordered by an unspecified provider. Scanning Provider MEDIA MGR SCAN EXT O RDR/RSLT * Gold Tube HOLD (12/14/2017 12:00 AM EDT) Gold Hold Sample in lab. [facility] Blood specimen (specimen) Venous Draw / Unknown 12/14/2017 12/14/2017 12:14 AM EDT Chinedu Ortega MD CHEMISTRY ORDERABLES [facility] [place] [address] * (ABNORMAL) Differential, Automated (12/14/2017 12:00 AM EDT) Neutrophil % 83.9 % [facility] Neutrophil Absolute 9.56(H) 1.70 - 6.10 x10(3)/[facility] LABORATORY Lymph % 9.8 % [facility] Lymphocytes Abs 1.1 0.9 - 3.2 x10(3)/[facility] LABORATORY Monocyte % 5.8 % [facility] Monocyte Abs 0.7 0.3 - 0.9 x10(3)/ L [facility] Eos % 0.0 % [facility] Eosinophils Abs 0.0 0.0 - 0.4 x10(3)/[facility] LABORATORY Basophil % 0.2 % [facility] Baso Absolute 0.0 0.0 - 0.1 x10(3)/[facility] LABORATORY Immature Gran % 0.30 % [facility] Comment: Immature granulocytes(IG's)percentage and absolute count will include metamyelocytes, myelocytes, and promyelocytes. Blood smears from CBCs yielding IG's will be scanned manually for concordance. If this scan disagrees with the automated IG or if promyelocytes are noted, a manual differential will be performed. Immature Gran Absolute 0.03 0.00 - 0.04 x10(3)/ L [facility] Blood specimen (specimen) 12/14/2017 12/14/2017 12:07 AM EDT Narrative Resulting Agency Comment Spec In Lab Russell Lewis MD HEMATOLOGY ORDERABL ES [facility] [place] [address] * (ABNORMAL) Hemogram (12/14/2017 12:00 AM EDT) White Blood Cell 11.4(H) 4.0 - 9.5 x10(3)/mc L [facility] Red Blood Cell 3.78(L) 4.00 - 5.21 x10(6)/mc L [facility] Hemoglobin 12.2 11.7 - 15.5 gm/dL [facility] Hematocrit 35.0(L) 35.7 - 45.8 % [facility] Mean Cell Volume 92.6 82.6 - 94.4 fL [facility] Mean Cell Hemoglobin 32.3(H) 27.1 - 32.0 pg [facility] Mean Cell Hemoglobin Concentration 34.9 31.7 - 35.0 gm/dL [facility] Platelet 195 145 - 357 x10(3)/mc L [facility] RDW Standard Deviation 40.1 37.0 - 46.0 fL [facility] RDW coefficient of variation 11.9 11.5 - 14.1 % [facility] Mean Platelet Volume 8.5 7.6 - 12.9 fL [facility] NRBC% auto 0.0 % [facility] NRBC Absolute 0.000 0.000 - 0.000 x10(3)/mc L [facility] Blood specimen (specimen) 12/14/2017 12/14/2017 12:07 AM EDT Narrative Resulting Agency Comment Spec In Lab Russell Lewis MD HEMATOLOGY ORDERABL ES [facility] [place] [address] * Ethanol Level (12/14/2017 12:00 AM EDT) Ethanol <100 <=99 mg/L [facility] Comment: Greater than 800 mg/L (0.08%) should be considered intoxicated. 3400 to 4500 mg/L (0.34 - 0.45%) is considered severe intoxication. Greater than 5500 mg/L (0.55%) is usually fatal. Blood specimen (specimen) 12/14/2017 12/14/2017 12:07 AM EDT Narrative Resulting Agency Comment Spec In Lab Russell Lewis MD CHEMISTRY ORDERABLE S Performing Organization Address [facility] Co de Phone Number [facility] [place] [address] * (ABNORMAL) APTT (12/14/2017 12:00 AM EDT) Partial Thromboplastin Time 24(L) 25 - 37 sec [facility] Comment: The PTT is NOT appropriate for heparin monitoring. Use the Anti-Xa level for heparin monitoring (HEP UFH) or LMWH monitoring (HEP LMW). A PTT less than 37 seconds generally indicates adequate hemostasis. Blood specimen (specimen) 12/14/2017 12/14/2017 12:07 AM EDT Narrative Resulting Agency Comment Spec In Lab Russell Lewis MD HEMATOLOGY ORDERABL ES Performing Organization Address [facility] Co de Phone Number [facility] [place] [address] * Prothrombin Time (12/14/2017 12:00 AM EDT) Prothrombin Time 11.2 9.4 - 12.5 sec [facility] International Normalization Ratio 1.0 [facility] Comment: An INR <2.0 [...] Lab Russell Lewis MD HEMATOLOGY ORDERABL ES [facility] [place] [address] * (ABNORMAL) Basic Metabolic Panel (non-fasting) (12/14/2017 12:00 AM EDT) Glucose 124 65 - 199 mg/dL [facility] Comment:Diabetes: >=200 mg/d L plus symptoms Blood Urea Nitrogen 13 8 - 18 mg/dL [facility] Creatinine 0.92 0.70 - 1.20 mg/dL [facility] Sodium 140 135 - 145 mmol/L [facility] Potassium 4.6 3.5 - 5.0 mmol/L [facility] Comment: Please note: ??Patients with WBC >100,000 may have falsely elevated Potassium levels. ??For accurate Potassium quantification in these patients send serum separator tube (gold top) for subsequent determinations. ??Contact the Clinical Chemistry Laboratory if there are any questions. Chloride 103 98 - 107 mmol/L [facility] Carbon Dioxide 26 22 - 31 mmol/L [facility] Anion Gap 11 5 - 15 mmol/L [facility] Calcium 8.4(L) 8.5 - 10.5 mg/dL [facility] Est Glomerular Filtration Rate 72 >=60 mL/min/1. 73 m?? [facility] Comment: The eGFR was calculated using the CKD-EPI equation. As with all creatinine based estimates of kidney function, eGFR values calculated with the CKD-EPI equation are not accurate in patients with acute kidney failure, extremes of body mass or the acutely ill. http://[employer]/DHnkdep http://[employer]/DHMCnkf eGFR 83 >=60 mL/min/1. 73 m?? [facility] Comment: The eGFR was calculated using the CKD-EPI equation. As with all creatinine based estimates of kidney function, eGFR values calculated with the CKD-EPI equation are not accurate in patients with acute kidney failure, extremes of body mass or the acutely ill. http://[email or web address] [email or web address]/DHMCnkf Blood specimen (specimen) 12/14/2017 12/14/2017 12:07 AM EDT Narrative Resulting Agency Comment Spec In Lab Russell Lewis MD CHEMISTRY ORDERABLE S Performing Organization Address [facility] Co de Phone Number [facility] [place] [address] * SCAN DOC: COURTESY VAN DRIVER (12/14/2017 12:00 AM EDT) Anatomical Region Laterality Modality Other Narrative 12/14/2017 12:00 AM EDT Ordered by an unspecified provider. Scanning Provider MEDIA MGR SCAN EXT O RDR/RSLT * Urinalysis Microscopic Exam (12/13/2017 11:55 PM EDT) RBC, Urine 3 0 - 4 /HPF [facility] WBC, Urine 2 0 - 5 /HPF [facility] Urine specimen (specimen) 12/13/2017 11:55 PM EDT 12/14/2017 12:07 AM EDT Narrative Resulting Agency Comment Spec In Lab Russell Lewis MD URINE ORDERABLES Performing Organization Address [facility]/ZIP Co de Phone Number [facility] [place] [address] * (ABNORMAL) Urinalysis with reflex Culture (12/13/2017 11:55 PM EDT) Glucose, Urine Dipstick Negative Negative mg/dL [facility] Protein, Urine Dipstick Negative Negative mg/dL [facility] Bilirubin, Urine Dipstick Negative Negative mg/dL [facility] Comment: Clinical correlation required for positive Urine Bilirubin results as false positive may occur with some drugs and drug related products. If a false positive is suspected a serum total bilirubin should be considered if clinically indicated. Urobilinogen, Urine Dipstick Normal Normal mg/dL [facility] pH, Urn (dipstick) 6.0 5.0 - 8.0 [facility] Blood, Urine Dipstick Small(A) Negative mg/dL [facility] Ketone, Urine Dipstick Negative Negative mg/dL [facility] Nitrite, Urine Dipstick Negative Negative [facility] Leukocytes, Urine Dipstick Negative Negative [facility] LABOR[facility] Appearance, Urine Dipstick Clear Clear [facility] Specific [place] Urine Automated >1.035(H) 1.002 - 1.030 [facility] Color, Urine Dipstick Straw Yellow [facility] Reflex to Culture No [facility] Urine specimen (specimen) 12/13/2017 11:55 PM EDT 12/14/2017 12:07 AM EDT Narrative Resulting Agency Comment Spec In Lab Russell Lewis MD URINE ORDERABLES [facility] [place] [address] * Rapid Drug Screen w/ Confirmation, Urine (12/13/2017 11:54 PM EDT) Barbiturates Screen, Urine None Detected None Detected [facility] Comment: The barbiturate [...] Benzodiazepines Screen, Urine None Detected None Detected [facility] Comment: The benzodiazepines [...] Cocaine Screen, Urine None Detected None Detected [facility] Comment: The cocaine [...] Metabolites Screen, Urine None Detected None Detected [facility] Comment: The methadone [...] Opiate Screen, Urine None Detected None Detected [facility] Comment: The opiates [...] Cannabinoid Screen, Urine None Detected None Detected [facility] Comment: The marijuana metabolites screen detects the THC metabolite (93-eei-4-carboxy-delta 9-THC) at concentrations >20 ng/mL. A ? Presumptive Positive? result indicates that the screening result was positive but has not yet been confirmed by a highly-specific method. As with any screen, occasional false positive results from cross-reacting substances may occur. Not for Medico-Legal Purposes. Oxycodone Screen, Urine None Detected None Detected [facility] Comment: The oxycodone screen detects oxycodone and oxymorphone at concentrations >100 ng/mL. A ? Presumptive Positive? result indicates that the screening result was positive but has not yet been confirmed by a highly-specific method. As with any screen, occasional false positive results from cross-reacting substances may occur. Not for Medico-Legal Purposes. Buprenorphine Screen, Urine None Detected None Detected [facility] Comment: The buprenorphine screen detects buprenorphine at concentrations >5 ng/mL. A ? Presumptive Positive? result indicates that the screening result was positive but has not yet been confirmed by a highly-specific method. As with any screen, occasional false positive results from cross-reacting substances may occur. Not for Medico-Legal Purposes. Fentanyl Screen, Urine None Detected None Detected [facility] Comment: The fentanyl screen detects fentanyl at concentrations >2 ng/mL. A ? Presumptive Positive? result indicates that the screening result was positive but has not yet been confirmed by a highly-specific method. As with any screen, occasional false positive results from cross-reacting substances may occur. Not for Medico-Legal Purposes. Tricyclics Screen, Urine None Detected None Detected [facility] Comment: The tricyclics [...] Ethanol Screen, Urine None Detected None Detected [facility] Comment:This urine ethanol a ssay detects ethanol at concentrations >/= 100 mg/L. Amphetamines Screen, Urine None Detected None Detected [facility] Comment: The amphetamine screen detects d-amphetamine and d-methamphetamine at concentrations >300 ng/mL. A ? Presumptive Positive? result indicates that the screening result was positive but has not yet been confirmed by a highly-specific method. As with any screen, occasional false positive results from cross-reacting substances may occur. Not for Medico-Legal Purposes. Adulterants Screen, Urine None Detected None Detected [facility] Comment: No adulteration [...] MD CHEMISTRY ORDERABLE S Performing Organization Address [facility] Co de Phone Number [facility] [place] [address] * Rapid Drug Screen, Urine (PRETTY Request) (12/13/2017 11:54 PM EDT) PRETTY Conf Requested Yes [facility] PRETTY Requested See Comment [facility] Comment:Refer to Rapid Drug Screen w/ Confirmation, Urine for results. Urine specimen (specimen) 12/13/2017 11:54 PM EDT 12/14/2017 12:07 AM EDT Narrative Resulting Agency Comment Spec In Lab Russell Lewis MD URINE ORDERABLES Performing Organization Address [facility] de Phone Number [facility] [place] [address] * Request For 2nd Read CT Head [...] IMDavin OUTSIDE INTERPR ETATION ORDERABLES * Request for [...] minimal dorsal angulation of the distalcomponents. Russell RAYA OUTSIDE INTERPR ETATION ORDERABLES * Film Library- Storage Only CT Spine (12/13/2017 12:20 AM EDT) Narrative [facility] - 12/13/2017 10:12 PM EDT This exam is for storage only and is auto-finalizing. Russell RAYA FILM LIBRARY OR DERABLES Performing Organization Address [facility] de Phone Number [place], [place] * Film Library- Storage Only CT Chest Abdomen Pelvis (12/13/2017 12:15 AM EDT) Narrative [facility] - 12/13/2017 10:11 PM EDT This exam is for storage only and is auto-finalizing. Russell RAYA FILM LIBRARY OR DERABLES Performing Organization Address [facility] Co de Phone Number [place], [place] * Film Library- Storage Only DX Knee (12/13/2017 12:10 AM EDT) Narrative RAD - 12/13/2017 10:05 PM EDT This exam is for storage only and is auto-finalizing. Russell Lewis MD IMG FILM LIBRARY OR DERABLES Performing Organization Address [facility] de Phone Number [place], [place] * Film Library- Storage Only DX Wrist (12/13/2017 12:05 AM EDT) [facility] - 12/13/2017 10:04 PM EDT This exam is for storage only and is auto-finalizing. Russell Lewis MD IM FILM LIBRARY OR DERABLES Performing Organization Address [facility] Phone Number [place], [place] * Film Library- Storage Only CT Head And Spine (12/13/2017 12:00 AM EDT) [facility] 12/13/2017 10:03 PM EDT This exam is for storage only and is auto-finalizing. Russell Lewis MD [facility] FILM LIBRARY OR DERABLES Performing Organization Address [facility] de Phone Number [place], [place] documented in this encounter Visit Diagnoses [...] hours, Routine 0229 (Given - Provider: Cary Urrutia, RN)0843 (Given - Provider: Christin Edwards, HAYLEY)1557 (Given - Provider: Christin Edwards RN)2119 (Given - Provider: Baltazar Young, HAYLEY) 040 (Given - Provider: Cary Urrutia, HAYLEY)08 (Not Given - Provider: Christin Edwards RN - Reason: Patient/family refused - Comment: pt educated)1607 (Given - Provider: Faina Ortega RN)204 (Given - Provider: La Castrejon, HYALEY) 040 (Given - Provider: La Castrejon RN)101 (Given - Provider: Pita Her RN) enoxaparin [...] RN)2119 (Given - Provider: Baltazar Young RN) 0820 (Given - Provider: Christin Edwards, HAYLEY)2044 [...] RN) 08 (Given - Provider: Christin Edwards, RN)2048 (Given - Provider: La Castrejon, RN) 1013 [...] Urrutia, HAYLEY)1335 (Given - Provider: Christin Edwards, HAYLEY)212 (Given - Provider: Baltazar Young, HAYLEY) 161 (Given - Provider: Faina Ortega RN) 0423 (Given - Provider: La Castrejon, HAYLEY) lactulose (CHRONULAC) 20 gram/30 mL oral solution 20-40 g 20-40 g (30-60 mL), Oral, DAILY PRN, Starting on 12/18/17 at 202, Until Wed12/24/17 at 161, Constipation, Administer if needed per patient's routine [...] Urrutia RN)0820 (Given - Provider: Christin Edwards RN)204 (Given - Provider: La Castrejon, HAYLEY) 0423 [...] Routine documented in this encounter Care Teams Ton Container Filler Relationship Specialty Start Date End Date Keiko Reddy MD [address] [address] PCP - General Family Medicine 06/18/17 05/15/18 documented as of this encounter
--- OUTSIDE RECORDS SUMMARY | 2023-12-28 01:44 | XMS_ITS | Encounter Summary ---
Author Organization [facility] [place] [address] Care Team Providers Care Site Worker Name Role Phone Keiko Reddy MD Primary Care Provider [phone] Encounter Details Date Type Department Care Team (Latest Contact Info) Description 12/13/2017 10:50 PM EDT Hospital Encounter [place] [address] Discharge Disposition: Home Social History Tobacco Use [...] AM EDT Appointment Hematology [place] [address] 01/31/2024 10:20 AM EDT Office Visit [place] [address] Rebecca Small MD [facility] [place] [address] 08/01/2024 11:30 AM EDT Office Visit Dermatology at [facility] [address] [place] [address] Phan Engle MD [facility] DR JESS [place] [address] documented as of this encounter Procedures Procedure [...] on filedocumented in this encounter Care Teams Site Worker Relationship Specialty Start Date End Date Keiko Reddy MD [address] [place] [address] PCP - General Family Medicine 06/18/17 05/15/18 documented as of this encounter
--- OUTSIDE RECORDS SUMMARY | 2023-12-28 01:44 | XMS_ITS | Encounter Summary ---
[place] [address] Care Team Providers Care Set Up Mold Technician Name Role Phone Keiko Reddy MD Primary Care Provider [phone] Encounter Details Date Type Department Care Team (Latest Contact Info) Description 12/13/2017 10:49 PM EDT Hospital Encounter [place] [address] Discharge Disposition: Home Social History Tobacco Use [...] AM EDT Appointment H[place]ology [place] [address] 01/31/2024 10:20 AM EDT Office Visit [place] [address] Rebecca Small MD [facility] [place] [address] 08/01/2024 11:30 AM EDT Office Visit Dermatology at [facility] [address] [place] [address] Phan Engle MD [facility] DR JESS [place] [address] documented as of this encounter Procedures Procedure [...] on filedocumented in this encounter Care Teams Set Up Mold Technician Relationship Specialty Start Date End Date Keiko Reddy MD [address] [address] PCP - General Family Medicine 06/18/17 05/15/18 documented as of this encounter
--- OUTSIDE RECORDS SUMMARY | 2023-12-28 01:44 | XMS_ITS | Encounter Summary ---
Author Organization [facility] Address [facility] [address] Care Team Providers Care Head Of Partner Development Name Role Phone Keiko Reddy MD Primary Care Provider [phone] Encounter Details Date Type Department Care Team (Latest Contact Info) Description 12/13/2017 12:10 AM EDT - 12/13/2017 12:14 AM EDT Hospital Encounter [place] [address] Discharge Disposition: Home Social History Tobacco Use [...] AM EDT Appointment Hematology [place] [address] 01/31/2024 10:20 AM EDT Office Visit [place] [address] Rebecca Small MD [facility] [place] [address] 08/01/2024 11:30 AM EDT Office Visit Dermatology at [place] [address] [place] [address] Phan Engle MD [facility] DR JESS [place] [address] documented as of this encounter Procedures Procedure [...] Henriquez MD IMG FILM LIBRARY OR DERABLES [place] documented in this encounter Visit Diagnoses Not on filedocumented in this encounter Care Teams Head Of Partner Development Relationship Specialty Start Date End Date Keiko Reddy MD [address] [address] PCP - General Family Medicine 06/18/17 05/15/18 documented as of this encounter
--- OUTSIDE RECORDS SUMMARY | 2023-12-28 01:44 | XMS_ITS | Encounter Summary ---
Author Organization [facility] [place] [address] Care Team Providers Care Immigration Inspector Name Role Phone Keiko Reddy MD Primary Care Provider [phone] Encounter Details Date Type Department Care Team (Latest Contact Info) Description 12/14/2017 - 12/14/2017 11:59 PM EDT Hospital Encounter [place] [address] Discharge Disposition: Home Social History Tobacco Use [...] AM EDT Appointment Hematology [place] [address] 01/31/2024 10:20 AM EDT Office Visit [place] [address] Rebecca Small MD [facility] [place]ECOLOG[place] [address] 08/01/2024 11:30 AM EDT Office Visit Dermatology at [facility] [address] [place] [address] Phan Engle MD [facility] DR JESS HERNANDE[place] [address] documented as of this encounter Procedures Procedure [...] on filedocumented in this encounter Care Teams Immigration Inspector Relationship Specialty Start Date End Date Keiko Reddy MD [address] [place] [address] PCP - General Family Medicine 06/18/17 05/15/18 documented as of this encounter
--- OUTSIDE RECORDS SUMMARY | 2023-12-28 01:44 | XMS_ITS | Encounter Summary ---
Author Organization [facility] [place] [address] Care Team Providers Care Pest Management Supervisor Name Role Phone Keiko Reddy MD Primary Care Provider [phone] Reason for Visit * Auth/Cert Specialty Diagnoses / Procedures Referred By Marie diaz Referred To Contact Diagnoses Trauma right tibial plateau fracture Procedures @ORIF TIBIAL PLATEAU (PROXIMAL) UNICONDYLAR (WRVU 13.41) MODIFIER TIBIA ANA SYSTEM SYNTHES MODIFIER PROXIMAL LOCKING TIBIA PLATES SYNTHES MODIFIER LOCKING MEDIAL PROXIMAL TIBIA PLATES SYNTHES Referral ID Status Reason Start Date Expiration Date Visits Re quested Visits Authorized [id number] 1 1 Encounter Details Date Type Department Care Team (Late st Contact Info) Description 12/20/2017 7:49 AM EDT Anesthesia [place] [address] Rick Leigh MD [facility] [place] [address] Silke Balderas CRNA [facility] [place] [address] Anesthesia Record Procedure Summary Procedure Name Responsible Anesthesiologist Anesthesia Start Time Anesthesia Stop Time @OPEN TREATMENT, ACETABULAR FX (WRVU 25.41) (Left: Pelvis) Rick Leigh MD 12/20/17 0749 12/20/17 1032 Events Date Time Event Comment 12/20/2017 0747 0749 AN Verify 0749 Start 0749 An Start Data 0751 An Induction 0756 An Intubation 0804 Anesthesia Ready 0843 Break/Relief In Alicia Teresa, LEAD RIDER 1021 Extubation/LMA Out 1021 an stop data [...] cephalic vein (lateral side of arm), left; btxd-haa-viknxu catheter system; 20 gauge; outside hospital; 12/24/17; 1331 12/14/17 0001 by Bee Cardozo RN 12/24/17 1331 by Pita Her RN Urethral Catheter 12/16/17; 1118; Acut e urinary retention, Physician order; indwelling single lumen catheter; 14; 1; none; urethral catheter removed, per protocol/policy, tubing intact; 12/20/17; 1538 12/16/17 1118 by Karin Hawkins RN 12/20/17 1538 by Gini Ma, HEADHUNTER Incision 12/20/17; hip; 01/19 (LDA cleanup utility [...] CRNA 12/20/17 1021 by Richie Martin Jr., LEAD RIDER documented in this encounter Social History Tobacco [...] Leigh MD - 12/20/2017 12:00 PM EDT [facility] Department of Anesthesiology Post-procedure Note Patient: Daphne Pickard Procedure Summary Date Anesthesia Start Anesthesia Stop Room / Location 12/20/17 0749 1032 [facility] OR [facility] OR Procedure Diagnosis Surgeon Responsible Provider @OPEN TREATMENT, ACETABULAR FX (WRVU 25.41) (Left Pelvis); MODIFIER LOCKING SMALL FRAGMENT SYNTHES (Left ); MODIFIER PELVIC RECONSTRUCTION PLATE SYNTHES (Left ) (Left posterior wall acetabulum fx) GitajTete hudson MD Nguyen, Tung T, MD All Anesthesia Providers: Anesthesiologist: Rick Leigh MD LEAD RIDER: Richie Martin Jr., CRNA Most Recent Vitals: 12/20/17 1350 BP: 101/68 Pulse: Resp: 14 Temp: 36.7 ??C (98.1 ??F) SpO2: 98% Pain 3 (12/20/17 1350) Patient Location: PACU/[facility] Level of Consciousness: Conscious but Sleepy Pain [...] [facility] END[facility] ??? PRO OPEN RX DISTAL RADIUS FX, INTRA-ARTICULAR, 3+ FRAG Right 12/14/2017 ORIF DISTAL RADIUS, 3 OR MORE FRAGMENTS (WRVU 14.38) performed by Reinaldo Romero MD at [facility] MAIN OR ??? PRO OPEN TX TIBIAL FRACTURE PROXIMAL UNICONDYLAR Right 12/14/2017 @ORIF TIBIAL PLATEAU (PROXIMAL) UNICONDYLAR (WRVU 13.41) performed by Reinaldo Romero MD at [facility] MAIN OR Social History Substance Use [...] consented to blood products. Plan discussed with LEAD RIDER. PAT Staff Note Attending NOTE Brief HPI: [...] AM EDT Appointment [place] [address] 01/31/2024 10:20 AM EDT Office Visit [place] [address] Rebecca Small MD [facility] [place] [address] 08/01/2024 11:30 AM EDT Office Visit Dermatology at [facility] [address] [place] [address] Phan Engle MD [facility] DR JESS [place] [address] documented as of this encounter Visit Diagnoses [...] mg documented in this encounter Care Teams Pest Management Supervisor Relationship Specialty Start Date End Date Keiko Reddy MD [address] [address] PCP - General Family Medicine 06/18/17 05/15/18 documented as of this encounter
--- OUTSIDE RECORDS SUMMARY | 2023-12-28 01:44 | XMS_ITS | Encounter Summary ---
Author Organization [facility] Address [place] [address] Care Team Providers Care Finance Clerk Name Role Phone Keiko Reddy MD Primary Care Provider [phone] Encounter Details Date Type Department Care Team (Latest Contact Info) Description 12/13/2017 12:15 AM EDT - 12/13/2017 12:19 AM EDT Hospital Encounter [place] [address] Discharge Disposition: Home Social History Tobacco Use [...] AM EDT Appointment Hematology [place] [address] 01/31/2024 10:20 AM EDT Office Visit [place] [address] Rebecca Small MD [facility] [place] [address] 08/01/2024 11:30 AM EDT Office Visit Dermatology at [place] [address] [place] [address] Phan Engle MD [facility] DR JESS [place] [address] documented as of this encounter Procedures Procedure [...] FILM LIBRARY OR DERABLES Performing Organization Address City/State/[facility] Co de Phone Number [place], [place] documented in this encounter Visit Diagnoses Not on filedocumented in this encounter Care Teams Finance Clerk Relationship Specialty Start Date End Date Keiko Reddy MD [address] [address] PCP - General Family Medicine 06/18/17 05/15/18 documented as of this encounter
--- OUTSIDE RECORDS SUMMARY | 2023-12-28 01:44 | XMS_ITS | Encounter Summary ---
Author Organization [facility] [place] [address] Care Team Providers Care Curriculum Manager Name Role Phone Keiko Reddy MD Primary Care Provider [phone] Encounter Details Date Type Department Care Team (Latest Contact Info) Description 12/13/2017 - 12/13/2017 12:04 AM EDT Hospital Encounter [place] [address] Discharge Disposition: Home Social History Tobacco Use [...] AM EDT Appointment Hematology [place] [address] 01/31/2024 10:20 AM EDT Office Visit [place] [address] Rebecca Small MD [facility] [place] [address] 08/01/2024 11:30 AM EDT Office Visit Dermatology at [facility] [address] [place] [address] Phan Engle MD [facility] DR J[place] [address] documented as of this encounter Procedures Procedure [...] City/State/[facility] Co de Phone Number [place], [place] documented in this encounter Visit Diagnoses Not on filedocumented in this encounter Care Teams Curriculum Manager Relationship Specialty Start Date End Date Keiko Reddy MD [address] [address] PCP - General Family Medicine 06/18/17 05/15/18 documented as of this encounter
--- OUTSIDE RECORDS SUMMARY | 2023-12-28 01:44 | XMS_ITS | Encounter Summary ---
Author Organization [facility] Address [facility] [place] [address] Care Team Providers Care Blood Bank Assistant Name Role Phone Keiko Reddy MD Primary Care Provider Encounter Details Date Type Department Care Team (Latest Contact Info) Description 12/13/2017 12:05 AM EDT - 12/13/2017 12:09 AM EDT Hospital Encounter [place] [address] Discharge Disposition: Home Social History Tobacco Use [...] AM EDT Appointment Hematology [place] [address] 01/31/2024 10:20 AM EDT Office Visit [place] [address] Rebecca Small MD [facility] [place] [address] 08/01/2024 11:30 AM EDT Office Visit Dermatology at [place] [address] [place] [address] Phan Engle MD [facility] DR JESS [place] [address] documented as of this encounter Procedures Procedure [...] Henriquez MD IMG FILM LIBRARY OR DERABLES [place], [place] documented in this encounter Visit Diagnoses Not on filedocumented in this encounter Care Teams Blood Bank Assistant Relationship Specialty Start Date End Date Keiko Reddy MD [address] [address] PCP - General Family Medicine 06/18/17 05/15/18 documented as of this encounter
--- OUTSIDE RECORDS SUMMARY | 2023-12-28 01:45 | XMS_ITS | Encounter Summary ---
Author Organization [facility] Address [facility] [place] [place] [address] Care Team Providers Care Molecular Biology Professor Name Role Phone Keiko Reddy MD Primary Care Provider [phone] Encounter Details Date Type Department Care Team (Latest Contact Info) Description 06/25/2017 12:22 PM EST - 06/25/2017 2:21 PM EST Hospital Encounter [place] [address] Kimani Rojas MD [facility] [place] [address] Discharge Disposition: Home Social History Tobacco Use [...] to be checked. Wednesday-Wednesday Same Day Endo [phone] Otherwise contact [phone] and ask to speak to the territory sales consultant front desk agent Follow up care is a [place] [...] AM EDT Appointment Hematology [place] [address] 01/31/2024 10:20 AM EDT Office Visit [place] [address] Rebecca Small MD [facility] [place] [address] 08/01/2024 11:30 AM EDT Office Visit Dermatology at [place] [address] [place] [address] Phan Engle MD [facility] DR [place] [address] documented as of this encounter Procedures Procedure Name Priority Date/Time Associated Diagnosis Comments COLONOSCOPY, DIAGNOSTIC (WRVU 3.26) 06/25/2017 1:07 PM EST first screening COLONOSCOPY Routine 06/25/2017 12:40 PM EST documented in this encounter Results * COLONOSCOPY (06/25/2017 12:40 PM EST) [facility] Signature COLONOSCOPY [facility] Procedure Date: 06/25/2017 12:40 PM ? Patient Name: Daphne Pickard ? N: [id number] ? Date of : 1965 ? Age: 51 ? Order #: [id number] ? Instrument Name: [id number] ? Procedure: ? Colonoscopy Indications: ? Screening for colorectal malignant ? neoplasm Providers: ? Kimani Rojas MD, Rajinder Menjivar ? Tor Hernandez, Cutter Operator Asbestos Shingle Referring MD: ?Javier Green MD Medicines: ? [...] preparation was evaluated using ? the BBPS ([place] Bowel Preparation ? Scale) with scores of: [...] RN) documented in this encounter Care Teams Molecular Biology Professor Relationship Specialty Start Date End Date Keiko Reddy MD [address] [address] PCP - General Family Medicine 06/18/17 05/15/18 documented as of this encounter
--- OUTSIDE RECORDS SUMMARY | 2023-12-28 01:45 | XMS_ITS | Encounter Summary ---
Author Organization [facility] [place] [place] [address] Care Team Providers Care Community Service Coordinator Name Role Phone Keiko Reddy MD Primary Care Provider [phone] Encounter Details Date Type Department Care Team (Late st Contact Info) Description 06/25/2017 1:30 PM EST - 06/25/2017 2:30 PM EST Surgery [place] [address] Kimani Rojas MD [facility] [place] [address] COLONOSCOPY, DIAGNOSTIC (WRVU 3.26) Social History Tobacco [...] to be checked. Wednesday-Wednesday Same Day Endo [phone] Otherwise contact [phone] and ask to speak to the stone carriage operator clinical rehab liaison Follow up care is a [facility] [...] AM EDT Appointment Hematology [place] [address] 01/31/2024 10:20 AM EDT Office Visit [place] [address] Rebecca Small MD [facility] [place] [address] 08/01/2024 11:30 AM EDT Office Visit Dermatology at [facility] [address] [place] [address] hPan Engle MD [facility] DR JESS [place] [address] documented as of this encounter Procedures Procedure Name Priority Date/Time Associated Diagnosis Comments COLONOSCOPY, DIAGNOSTIC (WRVU 3.26) 06/25/2017 1:07 PM EST first screening COLONOSCOPY Routine 06/25/2017 12:40 PM EST documented in this encounter Results * COLONOSCOPY (06/25/2017 12:40 PM EST) COLONOSCOPY [facility] Endoscopy Procedure Date: 06/25/2017 12:40 PM ? Patient Name: Daphne Pickard ? N: [id number] ? Date of : 1965 ? Age: 51 ? Order #: [id number] ? Instrument Name: [id number] ? Procedure: ? Colonoscopy Indications: ? Screening for colorectal malignant ? neoplasm Providers: ? Kimani Rojas MD, Rajinder Menjivar ? Tor Hernandez, Internal Audit Consultant Referring MD: ?Javier Green MD Medicines: ? [...] preparation was evaluated using ? the BBPS (Simms Bowel Preparation ? Scale) with scores of: [...] RN) documented in this encounter Care Teams Community Service Coordinator Relationship Specialty Start Date End Date Keiko Reddy MD [address] [address] PCP - General Family Medicine 06/18/17 05/15/18 documented as of this encounter
== END ==
PROVIDERS: PCP Family Medicine; Visit Provider Nurse Practitioner Family
DX: N63.31 Unspecified lump in axillary tail of the right breast (principal)
CPT/HCPCS: 76642

== ENCOUNTER 2025-02-23 04:41 | Outpatient (CLI) | payer SELFPAY ==
[2025-02-23 17:11] LABS: HBs Antibody, Quant 6.4 mIU/mL (See Note); Hepatitis B Surface Ab Negative (See Note)
[2025-02-26 11:35] LABS: Rubella IgG Ab (UVM) Positive (See Note)
[2025-02-26 12:50] LABS: TB Interpretation Negative (Negative); TB1 Ag minus Nil 0.00 IU/mL; TB2 Ag minus Nil 0.00 IU/mL
== END 2025-02-23 04:42 | disposition home or self-care (01) ==
PROVIDERS: PCP Nurse Practitioner Family; Visit Provider Student in an Organized Health Care Education/Training Program
DX: Z02.1 Encounter for pre-employment examination (principal)
CPT/HCPCS: 36415; 86706; 86787; 87340; 86480; 86735; 86762; 86765

== ENCOUNTER → 2025-05-12 14:48 | Outpatient (CLI) | payer MEDICARE, SELFPAY ==
--- NOTE | 2025-05-12 14:45 | DI.RAD_ITS ---
Exam(s) XR CHEST 2V PA LATERAL EXAM: XR CHEST 2V PA LATERAL CLINICAL HISTORY: eval pathology TECHNIQUE: 2D digital imaging was performed of the chest. Two images were obtained. PA and lateral views were obtained. COMPARISON: No exams were available for comparison FINDINGS: MEDIASTINUM: Normal. HEART: Normal. PULMONARY VASCULATURE: Normal. LUNGS: Clear. PLEURAL SPACE: No pleural effusion or pneumothorax. BONE:Within normal limits for the patient's age. There is calcific tendinitis seen in the shoulders bilaterally. OTHER FINDINGS:Normal. IMPRESSION: 1. No acute pulmonary findings. 2. The preliminary [facility] report was reviewed. DATA REPOSITORY: RADIATION DOSE DELIVERED:
--- NOTE | 2025-05-12 15:40 | DI.[facility]_ITS ---
PROCEDURE INFORMATION: Exam: XR Chest Exam date and time: 05/12/2025 2:56 PM Age: 59 years old Clinical indication: Other: Eval pathology TECHNIQUE: Imaging protocol: Radiologic exam of the chest. Views: 2 views. COMPARISON: CT CHEST/ABD/PEL W 11/28/2023 3:49 PM FINDINGS: Lungs: Unremarkable. No consolidation. Pleural spaces: Unremarkable. No pleural effusion. No pneumothorax. Heart/Mediastinum: Unremarkable. No cardiomegaly. Bones/joints: Unremarkable. IMPRESSION: No evidence for acute abnormality in the chest. Dictated and Authenticated by: Zee Samano MD. Orderin Vida Lau MD
== END ==
LOC: DI 14:51
PROVIDERS: PCP Nurse Practitioner Family; Visit Provider Nurse Practitioner Family
DX: R05.9 Cough, unspecified (principal)
CPT/HCPCS: 71046